=== PATIENT | male | born 1945 | race Caucasian/White ===

== ENCOUNTER 2017-08-07 18:59 | Inpatient (IN) | payer MEDICARE ==
[2017-08-07] MEDS ORDERED: NITROGLYCERIN SL TABS 0.4 MG TAB SUBLINGUAL STA (19:32)
[2017-08-07 19:34] LABS: Anisocytosis Slight; Basophils # (A) 0.1 k/uL (0-0.2); Basophils % (A) 1 %; CH 26.4; CHCM 30.4; Eosinophils # (A) 0.3 k/uL (0-0.7); Eosinophils % (A) 3 %; HCT 36.3 % (39.0-53.0); HGB 11.2 gm/dL (13.0-17.5); Hypochromasia Moderate; Luc % (Auto) 1; Lymphocytes # (A) 0.9 k/uL (1.0-4.8); Lymphocytes % (A) 9 %; MCHC 30.9 g/dL (31.0-37.0); MCV 87.1 fL (80.0-100.0); Mean Platelet Volume 8.4; Monocytes # (A) 0.7 k/uL (0-1.0); Monocytes % (A) 6 %; Neutrophils # (A) 8.2 k/uL (1.3-7.7); Neutrophils % (A) 80 %; RBC 4.16 m/uL (4.30-5.90); RDW 16.1 % (11.5-15.5); WBC 10.2 k/uL (3.8-10.6); WBC (Perox) 10.59
[2017-08-07 19:42] LABS: Anion Gap 10 mmol/L; Blood Urea Nitrogen 18 mg/dL (9-20); Carbon Dioxide 26 mmol/L (22-30); Chloride 105 mmol/L (98-107); Glucose 102 mg/dL (74-99); Potassium 4.5 mmol/L (3.5-5.1); Sodium 141 mmol/L (137-145)
[2017-08-07 19:43] LABS: ALT 70 U/L (21-72); AST 154 U/L (17-59); Alkaline Phosphatase 165 U/L (38-126); Calcium 9.3 mg/dL (8.4-10.2); Magnesium 1.4 mg/dL (1.6-2.3); Non-African American GFR(MDRD) >60 (>60 ml/min/1.73 sqM); Total Protein 7.6 g/dL (6.3-8.2)
[2017-08-07 19:53] LABS: Partial Thromboplastin Time 24.6 sec (22.0-30.0)
[2017-08-07 19:55] LABS: Prothrombin Time 10.6 sec (9.0-12.0)
--- NOTE | 2017-08-07 19:57 | XR ---
EXAMINATION TYPE: XR chest 2V DATE OF EXAM: 08/07/2017 COMPARISON: NONE HISTORY: Chest pain TECHNIQUE: Frontal and lateral views of the chest are obtained. FINDINGS: There is coarsening of interstitial pulmonary markings. There are sternal wires. There are chest leads. There is no gross heart failure. Heart size is normal. There is no pleural effusion. Th oracic aorta is atheromatous. Bones are osteopenic. IMPRESSION: Interstitial pulmonary fibrotic changes. No heart failure.
[2017-08-07 20:05] LABS: Creatine Kinase MB 0.9 ng/mL (0.0-2.4); Troponin I <0.012 ng/mL (0.000-0.034)
[2017-08-07] MEDS ORDERED: NALOXONE 0.4 MG/ML 1 ML VIAL IV PRN (20:47)
[2017-08-07] MEDS ORDERED: MORPHINE SULFATE 2 MG/ML SYRINGE IV PRN (20:47)
[2017-08-07] MEDS ORDERED: ONDANSETRON 4 MG/2 ML VIAL IVP PRN (20:47)
--- NOTE | 2017-08-07 20:50 | ED ---
Chest Pain HPI - General Chief Complaint: Chest Pain Stated Complaint: chest pain Time Seen by Provider: 08/07/17 19:32 Source: patient Mode of arrival: wheelchair Limitations: no limitations - Related Data Home Medications Medication Instructions Recorded Confirmed Allopurinol [Zyloprim] 300 mg PO DAILY 08/07/17 08/07/17 Apixaban [Eliquis] 5 mg PO BID 08/07/17 08/07/17 Atorvastatin [Lipitor] 20 mg PO HS 08/07/17 08/07/17 Diltiazem HCl [Diltiazem 24Hr ER] 120 mg PO DAILY 08/07/17 08/07/17 Finasteride [Proscar] 5 mg PO HS 08/07/17 08/07/17 Levothyroxine Sodium [Synthroid] 250 mcg PO DAILY 08/07/17 08/07/17 Magnesium Oxide [Mag-Ox] 400 mg PO BID 08/07/17 08/07/17 Naproxen Sodium [Aleve] 440 mg PO QAM 08/07/17 08/07/17 Omeprazole 20 mg PO DAILY 08/07/17 08/07/17 Pregabalin [Lyrica] 150 mg PO HS 08/07/17 08/07/17 Tamsulosin HCl [Flomax] 0.4 mg PO QAM 08/07/17 08/07/17 metFORMIN HCL 1,000 mg PO BID 08/07/17 08/07/17 Allergies Allergy/AdvReac Type Severity Reaction Status Date / Time cephalexin [From Keflex] Allergy Unknown Verified 08/07/17 20:24 clopidogrel [From Plavix] Allergy Unknown Verified 08/07/17 20:24 codeine Allergy Unknown Verified 08/07/17 20:24 Iodine and Iodide Containing Allergy Unknown Verified 08/07/17 20:24 Produc levofloxacin [From Levaquin] Allergy Unknown Verified 08/07/17 20:24 shellfish derived [Shellfish] Allergy Unknown Verified 08/07/17 20:24 solifenacin Allergy Unknown Verified 08/07/17 20:24 oxycodone AdvReac Hallucinati Verified 08/07/17 20:23 ons Review of Systems ROS Statement: Those systems with pertinent positive or pertinent negative responses have been documented in the HPI. ROS Other: All systems not noted in ROS Statement are negative. EKG Findings - EKG Comments: EKG Findings:: EKG showing normal sinus rhythm with a rate of 68. There is right bundle-branch block. No abnormal ST segment changes or T-wave inversions. QTC is 457. Other intervals are normal. No ectopy. Past Medical History Past Medical History: Atrial Fibrillation, Asthma, Coronary Artery Disease (CAD) , Diabetes Mellitus, Hypertension History of Any Multi-Drug Resistant Organisms: None Reported Past Surgical History: Coronary Bypass/CABG, Heart Catheterization With Stent, Hernia Repair, Orthopedic Surgery Past Psychological History: No Psychological Hx Reported Smoking Status: Former smoker Past Alcohol Use History: Occasional Past Drug Use History: None Reported General Exam Limitations: no limitations Course Vital Signs 08/07/17 08/07/17 08/07/17 19:02 19:39 20:34 Temperature 98.7 F Pulse Rate 71 68 66 Respiratory 20 18 16 Rate Blood Pressure 128/62 119/72 107/67 O2 Sat by Pulse 98 98 98 Oximetry Disposition Clinical Impression: Pancreatitis Disposition: ADMITTED IP TO THIS HOSP Condition: Stable
[2017-08-07 22:25] LABS: Glucose,Whole Blood 96 mg/dL (75-99)
[2017-08-07] MEDS: SODIUM CHLORIDE 0.9% 1,000 ML IV SCH (23:06)
[2017-08-08] MEDS ORDERED: HYDROmorphone 1 MG/ML 1 ML SYRINGE IM PRN (00:38)
[2017-08-08] MEDS: HYDROmorphone 1 MG/ML 1 ML SYRINGE IVP PRN ×2 (00:46→08:19)
[2017-08-08 01:32] LABS: Creatine Kinase 40 U/L (55-170)
[2017-08-08 01:44] LABS: Creatine Kinase MB 0.9 ng/mL (0.0-2.4); Troponin I <0.012 ng/mL (0.000-0.034)
[2017-08-08 02:49] LABS: Glucose,Whole Blood 100 mg/dL (75-99)
[2017-08-08] MEDS: SODIUM CHLORIDE 0.9% 1,000 ML IV SCH ×2 (06:14→12:05)
[2017-08-08 07:10] LABS: Glucose,Whole Blood 85 mg/dL (75-99)
[2017-08-08 07:53] LABS: Creatine Kinase 27 U/L (55-170)
[2017-08-08 08:05] LABS: Creatine Kinase MB 0.7 ng/mL (0.0-2.4); Troponin I <0.012 ng/mL (0.000-0.034)
[2017-08-08] MEDS ORDERED: Potassium Replacement Protocol 1 EACH MISC MISCELLANE PRN (11:05)
[2017-08-08] MEDS ORDERED: Magnesium Replacement Protocol 1 EACH MISC MISCELLANE PRN (11:05)
[2017-08-08] MEDS ORDERED: HYDROmorphone 0.5 MG/0.5 ML SYRINGE IVP PRN (11:06)
--- NOTE | 2017-08-08 11:13 | P.HPIM ---
History of Present Illness H&P Date: 08/08/17 Chief Complaint: Chest pain This is a 71-year-old gentleman with past medical history significant for coronary artery disease and underlying A. fib on anticoagulation who presented to the hospital with chest pain. Patient said that his symptoms started yesterday all of a sudden. He felt heaviness in his chest. He describe it as 8 out of 10 in severity. There was no radiation. There is no shortness of breath or dizziness. When questioned further to point to his pain patient was pointing more to the epigastric area. Patient said that the heaviness started from above the umbilicus all the way up to his mid chest. He was concerned and he had heart attacks in the past and decided to come to the emergency room for further evaluation. In the emergency room, 12-lead EKG showed no acute ischemic changes. Troponin were negative 2 sets. Patient was noted to have a significantly elevated lipase and was admitted to the hospital for further evaluation of acute pancreatitis. Patient said that he drinks alcohol only occasionally and denies binge drinking. He has never had problems with pancreatitis in the past. He believes that he never had a cholecystectomy in the past either. He said that his pain is a lot better now. He was remained nothing by mouth since last night. Review of Systems Review of system: 14 points review of systems were obtained and were negative except to what were mentioned in the HPI. Past Medical History Past Medical History: Atrial Fibrillation, Asthma, Coronary Artery Disease (CAD) , Diabetes Mellitus, Hypertension History of Any Multi-Drug Resistant Organisms: None Reported Past Surgical History: Coronary Bypass/CABG, Heart Catheterization With Stent, Hernia Repair, Orthopedic Surgery Past Anesthesia/Blood Transfusion Reactions: No Reported Reaction Date of Last Stent Placement:: 10/2015 Past Psychological History: No Psychological Hx Reported Smoking Status: Former smoker Past Alcohol Use History: Occasional Past Drug Use History: None Reported - Past Family History Father Family Medical History: Diabetes Mellitus Medications and Allergies Home Medications Medication Instructions Recorded Confirmed Type Allopurinol [Zyloprim] 300 mg PO DAILY 08/07/17 08/07/17 History Apixaban [Eliquis] 5 mg PO BID 08/07/17 08/07/17 History Atorvastatin [Lipitor] 20 mg PO HS 08/07/17 08/07/17 History Diltiazem HCl [Diltiazem 24Hr ER] 120 mg PO DAILY 08/07/17 08/07/17 History Finasteride [Proscar] 5 mg PO HS 08/07/17 08/07/17 History Levothyroxine Sodium [Synthroid] 250 mcg PO DAILY 08/07/17 08/07/17 History Magnesium Oxide [Mag-Ox] 400 mg PO BID 08/07/17 08/07/17 History Naproxen Sodium [Aleve] 440 mg PO QAM 08/07/17 08/07/17 History Omeprazole 20 mg PO DAILY 08/07/17 08/07/17 History Pregabalin [Lyrica] 150 mg PO HS 08/07/17 08/07/17 History Tamsulosin HCl [Flomax] 0.4 mg PO QAM 08/07/17 08/07/17 History metFORMIN HCL 1,000 mg PO BID 08/07/17 08/07/17 History Allergies Allergy/AdvReac Type Severity Reaction Status Date / Time cephalexin [From Keflex] Allergy Unknown Verified 08/07/17 20:24 clopidogrel [From Plavix] Allergy Unknown Verified 08/07/17 20:24 codeine Allergy Unknown Verified 08/07/17 20:24 Iodine and Iodide Containing Allergy Unknown Verified 08/07/17 20:24 Produc levofloxacin [From Levaquin] Allergy Unknown Verified 08/07/17 20:24 shellfish derived [Shellfish] Allergy Unknown Verified 08/07/17 20:24 solifenacin Allergy Unknown Verified 08/07/17 20:24 oxycodone AdvReac Hallucinati Verified 08/07/17 20:23 ons Physical Exam Vitals: Vital Signs Temp Pulse Pulse Resp BP BP Pulse Ox 08/08/17 07:48 16 08/08/17 07:47 98.6 F 70 16 140/74 96 08/08/17 02:47 128/71 08/08/17 00:58 97.0 F L 69 16 172/76 100 08/07/17 22:00 97.6 F 67 14 133/82 95 08/07/17 20:34 66 16 107/67 98 08/07/17 19:39 68 18 119/72 98 08/07/17 19:02 98.7 F 71 20 128/62 98 Intake and Output 08/07/17 08/08/17 08/08/17 22:59 06:59 14:59 Output Total 150 Balance -150 Output: Urine 150 Other: Voiding Method Urinal Weight 180.862 kg 180.862 kg 104.6 kg Patient Weight 08/09/17 06:59 Weight 104.6 kg General: The patient is awake and alert, in no distress, and does not appear acutely ill. Eye: extra-ocular movements are intact; there is normal conjunctiva bilaterally. . Neck: The neck is supple, there is no tenderness or JVD. Cardiovascular: Normal S1-S2, no S3-S4, no murmurs. Respiratory: Lungs clear to auscultation bilaterally with no wheezes rhonchi or rales. Gastrointestinal: Abdomen is soft, nontender, nondistended, with no organomegaly. . Musculoskeletal: Normal ROM, no tenderness, There is no pedal edema. Neurological: There are no obvious motor or sensory deficits. Speech is normal. Skin: Skin is warm and dry and no rashes or lesions are noted. Results CBC & Chem 7: 08/07/17 19:16 08/07/17 19:16 Labs: Abnormal Lab Results - Last 24 Hours (Table) 08/07/17 08/07/17 08/08/17 Range/Units 19:16 19:16 00:48 RBC 4.16 L (4.30-5.90) m/uL Hgb 11.2 L (13.0-17.5) gm/dL Hct 36.3 L (39.0-53.0) % MCHC 30.9 L (31.0-37.0) g/dL RDW 16.1 H (11.5-15.5) % Neutrophils # 8.2 H (1.3-7.7) k/uL Lymphocytes # 0.9 L (1.0-4.8) k/uL Glucose 102 H (74-99) mg/dL POC Glucose (mg/dL) (75-99) mg/dL Magnesium 1.4 L (1.6-2.3) mg/dL Total Bilirubin 2.0 H (0.2-1.3) mg/dL AST 154 H (17-59) U/L Alkaline Phosphatase 165 H (38-126) U/L Total Creatine Kinase 40 L (55-170) U/L Lipase 2479 H (23-300) U/L 08/08/17 08/08/17 Range/Units 02:44 06:49 RBC (4.30-5.90) m/uL Hgb (13.0-17.5) gm/dL Hct (39.0-53.0) % MCHC (31.0-37.0) g/dL RDW (11.5-15.5) % Neutrophils # (1.3-7.7) k/uL Lymphocytes # (1.0-4.8) k/uL Glucose (74-99) mg/dL POC Glucose (mg/dL) 100 H (75-99) mg/dL Magnesium (1.6-2.3) mg/dL Total Bilirubin (0.2-1.3) mg/dL AST (17-59) U/L Alkaline Phosphatase (38-126) U/L Total Creatine Kinase 27 L (55-170) U/L Lipase (23-300) U/L Thrombosis Risk Factor Assmnt - Choose All That Apply Other Risk Factors: No Assessment and Plan Plan: 1. Acute pancreatitis, exact etiology unclear. I would obtain abdominal ultrasound to rule out gallstones. Patient denies heavy alcohol use. I would check fasting lipid profile to evaluate triglyceride level. Continue nothing by mouth for now IV fluid hydration and pain control. May start the liquid later on today. 2. Paroxysmal atrial fibrillation on anticoagulation 3. History of coronary artery disease with prior stent placement 4. Essential hypertension: Blood pressure well-controlled Today, I reviewed his medication list lab work results. Continue current regimen. Repeat lab work in the morning. All patient questions answered to his satisfaction.
[2017-08-08] MEDS ORDERED: MAGNESIUM SULFATE-D5W PMX 1 GM in DEXTROSE/WATER 1 100ML.BAG IVPB ONE (11:30)
[2017-08-08 11:51] LABS: Glucose,Whole Blood 85 mg/dL (75-99)
[2017-08-08 12:18] LABS: Hemoglobin A1C 5.9 % (4.2-6.1)
--- NOTE | 2017-08-08 13:01 | US ---
EXAMINATION TYPE: US abdomen complete DATE OF EXAM: 08/08/2017 COMPARISON: NONE CLINICAL HISTORY: Pancreatitis rule out stone. EXAM MEASUREMENTS: Liver Length: 17.0 cm Gallbladder Wall: 0.6 cm CBD: 0.6 cm Spleen: 15.3 cm Right Kidney: 10.5 x 4.5 x 5.2 cm Left Kidney: 11.0 x 5.3 x 4.7 cm Large body habitus, overlying midline bowel gas. Pancreas: Obscured by bowel gas Liver: wnl Gallbladder: stones throughout, believed to be in neck area, edematous wall, stones in phrygian cap Evidence for sonographic Strickland's sign: no CBD: upper limits of normal in size Spleen: splenomegaly Right Kidney: No hydronephrosis or masses seen Left Kidney: No hydronephrosis or masses seen Upper IVC: wnl Abd Aorta: mostly obscured by overlying bowel gas, portions visualized wnl The liver is homogenous. The intrahepatic portion of the IVC and proximal abdominal aorta are within normal limits. Common bile duct is unremarkable. The visualized portions of the pancreas are homog enous. Kidneys are symmetric and free of hydronephrosis. No renal lesions are seen. IMPRESSION: 1. Correlate for acute cholecystitis. 2. Splenomegaly.
[2017-08-08] MEDS: MAGNESIUM SULFATE-D5W PMX 1 GM in DEXTROSE/WATER 1 100ML.BAG IVPB SCH ×2 (13:40→14:49)
[2017-08-08 16:46] LABS: Glucose,Whole Blood 95 mg/dL (75-99)
[2017-08-08] MEDS ORDERED: IBUPROFEN 600 MG TAB PO PRN (17:19)
[2017-08-08 20:20] LABS: Glucose,Whole Blood 88 mg/dL (75-99)
[2017-08-08] MEDS: ATORVASTATIN 20 MG TAB PO SCH (20:42)
[2017-08-08] MEDS: FINASTERIDE 5 MG TAB PO SCH (20:43)
[2017-08-08] MEDS: MAGNESIUM OXIDE 400 MG TAB PO SCH (20:43)
[2017-08-08] MEDS ORDERED: APIXABAN 5 MG TAB PO SCH (21:00)
[2017-08-08] MEDS ORDERED: HEPARIN SODIUM,PORCINE 5,000 UNIT/ML 1 ML VIAL SQ SCH (21:00)
[2017-08-08] MEDS: PREGABALIN 75 MG CAP PO SCH (21:10)
[2017-08-09] MEDS: SODIUM CHLORIDE 0.9% 1,000 ML IV SCH ×5 (01:40→23:29)
[2017-08-09 03:51] LABS: Glucose,Whole Blood 83 mg/dL (75-99)
[2017-08-09] MEDS: LEVOTHYROXINE 125 MCG TAB PO SCH (06:35)
[2017-08-09 07:38] LABS: Anisocytosis Slight; Basophils % (A) 1 %; CH 26.4; CHCM 30.1; Eosinophils # (A) 0.3 k/uL (0-0.7); Eosinophils % (A) 6 %; HCT 30.5 % (39.0-53.0); HDW 2.81; Hypochromasia Marked; Luc # (Auto) 0.08; Luc % (Auto) 2; Lymphocytes # (A) 0.6 k/uL (1.0-4.8); Lymphocytes % (A) 11 %; MCH 26.5 pg (25.0-35.0); MCHC 30.1 g/dL (31.0-37.0); MCV 88.1 fL (80.0-100.0); Mean Platelet Volume 8.2; Monocytes # (A) 0.4 k/uL (0-1.0); Monocytes % (A) 7 %; Neutrophils % (A) 74 %; RBC 3.46 m/uL (4.30-5.90); WBC 5.4 k/uL (3.8-10.6)
[2017-08-09 07:46] LABS: Glucose,Whole Blood 82 mg/dL (75-99)
[2017-08-09 07:51] LABS: HGB 9.2 gm/dL (13.0-17.5)
[2017-08-09 07:52] LABS: ALT 84 U/L (21-72); AST 69 U/L (17-59); Alkaline Phosphatase 167 U/L (38-126); Amylase 170 U/L (30-110); Anion Gap 10 mmol/L; Blood Urea Nitrogen 15 mg/dL (9-20); Calcium 8.6 mg/dL (8.4-10.2); Carbon Dioxide 20 mmol/L (22-30); Chloride 110 mmol/L (98-107); Cholesterol 93 mg/dL (<200); Glucose 73 mg/dL (74-99); HDL Cholesterol 42 mg/dL (40-60); Magnesium 1.9 mg/dL (1.6-2.3); Non-African American GFR(MDRD) >60 (>60 ml/min/1.73 sqM); Potassium 4.2 mmol/L (3.5-5.1); Sodium 140 mmol/L (137-145); Total Bilirubin 1.3 mg/dL (0.2-1.3); Total Protein 6.2 g/dL (6.3-8.2)
[2017-08-09] MEDS: MAGNESIUM OXIDE 400 MG TAB PO SCH ×2 (08:25→20:14)
[2017-08-09] MEDS: DILTIAZEM CD 120 MG CAP.ER.24H PO SCH (08:25)
[2017-08-09] MEDS: TAMSULOSIN 0.4 MG CAP.ER.24H PO SCH (08:25)
[2017-08-09] MEDS: PANTOPRAZOLE 40 MG/10 ML VIAL IVP SCH (08:26)
[2017-08-09] MEDS ORDERED: DEXTROSE 5%-0.9% NACL 1,000 ML IV SCH (12:00)
--- NOTE | 2017-08-09 12:04 | P.PN ---
Subjective Patient is comfortable today. Pain is well controlled. He remained nothing by mouth. Objective - Vital Signs Vital signs: Vital Signs Temp 97.9 F 08/09/17 07:24 Pulse 55 L 08/09/17 07:24 Resp 16 08/09/17 07:25 BP 139/66 08/09/17 07:24 Pulse Ox 95 08/09/17 07:24 Intake & Output 08/08/17 08/09/17 08/09/17 18:59 06:59 18:59 Output Total 450 Balance -450 Weight 104.6 kg Output: Urine 450 Other: Voiding Method Urinal Urinal # Voids 2 1 - Exam General: The patient is awake and alert, in no distress Eye: there is normal conjunctiva bilaterally. Neck: The neck is supple, there is no JVD. Cardiovascular: Normal S1-S2, no S3-S4, no murmurs. Respiratory: Lungs clear to auscultation bilaterally Gastrointestinal: Abdomen is soft, nontender Musculoskeletal: There is no pedal edema. Neurological:. Speech is normal. Skin: Skin is warm and dry - Labs CBC & Chem 7: 08/09/17 06:50 08/09/17 06:50 Labs: Abnormal Lab Results - Last 24 Hours (Table) 08/08/17 08/09/17 08/09/17 Range/Units 15:30 06:50 06:50 RBC 3.46 L (4.30-5.90) m/uL Hgb 9.2 L D (13.0-17.5) gm/dL Hct 30.5 L (39.0-53.0) % MCHC 30.1 L (31.0-37.0) g/dL RDW 16.0 H (11.5-15.5) % Plt Count 121 L (150-450) k/uL Lymphocytes # 0.6 L (1.0-4.8) k/uL Chloride 110 H (98-107) mmol/L Carbon Dioxide 20 L (22-30) mmol/L Glucose 73 L (74-99) mg/dL Magnesium 1.5 L (1.6-2.3) mg/dL AST 69 H (17-59) U/L ALT 84 H (21-72) U/L Alkaline Phosphatase 167 H (38-126) U/L Total Protein 6.2 L (6.3-8.2) g/dL Albumin 3.1 L (3.5-5.0) g/dL Amylase 170 H (30-110) U/L Lipase 428 H (23-300) U/L Assessment and Plan Plan: 1. Acute gallstone pancreatitis, currently nothing by mouth awaiting general surgery evaluation. IV fluid hydration and pain control. Evaluated by GI indication for ERCP at this time 2. Paroxysmal atrial fibrillation on anticoagulation, currently on hold 3. History of coronary artery disease with prior stent placement 4. Essential hypertension: Blood pressure well-controlled Today, I reviewed his medication list lab work results. Continue current regimen. Repeat lab work in the morning. All patient questions answered to his satisfaction.
--- NOTE | 2017-08-09 12:21 | P.CONS ---
History of Present Illness - Reason for Consult Consult date: 08/09/17 Pancreatitis Requesting physician: Kemar Ramirez - History of Present Illness 71-year-old male PMH CAD/CABG/Afib maintained on Eliquis, with no history of known liver disorders presents with acute abdominal pain midepigastric chest 2 days. Pancreatic liver enzymes elevated. Consultation requested for pancreatitis. No history of hepatitis or pancreatitis. No history of EtOH abuse. Denies fever chills weight loss. No changes in the color is urine or stool. White count 5.4-10.2. Hemoglobin 9.2-11.2. Platelet 121-206. INR 1.0. Total bilirubin 2.0. AST 154. ALT 70. A contrast is 165. Lipase 2479. Today; total bilirubin 1.3. AST 69. ALT 84. Alk phos is 167. Lipase 428. Amylase 170. Ultrasound, bile duct unremarkable. CBD 0.6 m. Gallbladder wall 0.6 cm. Stones throughout believed to be in the neck area. Edematous wall. He feels better abdominal pain is improved. Waiting surgical evaluation. Denies hematemesis hematochezia melena. Review of Systems Constitutional: Denies fever, chills, sweats, weight gain, or loss. HEENT: Negative for migraines, blurred vision or loss, earaches, drainage, tinnitus, oral mucosal lesions, dysphagia, or odynophagia. Cardiac: Atrial fibrillation. CAD. Negative for chest pain, arrhythmias, or palpitation. Respiratory: Negative for shortness of breath, hemoptysis, cough, or sputum production. Gastrointestinal: See HPI for pertinent findings. Genitourinary: Negative for hematuria, urgency, frequency, polyuria, dysuria, or penile discharge. Musculoskeletal: Negative for muscle aches, swelling, arthritis, and arthralgias. Neurologic: Negative for stroke or TIA. Endocrine: Diabetic. Negative for thyroid problems. Skin: Negative for rash or itching. Psychiatric: Negative history for depression and anxiety All systems: negative Past Medical History Past Medical History: Atrial Fibrillation, Asthma, Coronary Artery Disease (CAD) , Diabetes Mellitus, Hypertension History of Any Multi-Drug Resistant Organisms: None Reported Past Surgical History: Coronary Bypass/CABG, Heart Catheterization With Stent, Hernia Repair, Orthopedic Surgery Past Anesthesia/Blood Transfusion Reactions: No Reported Reaction Date of Last Stent Placement:: 10/2015 Past Psychological History: No Psychological Hx Reported Smoking Status: Former smoker Past Alcohol Use History: Occasional Past Drug Use History: None Reported - Past Family History Father Family Medical History: Diabetes Mellitus Medications and Allergies Home Medications Medication Instructions Recorded Confirmed Type Allopurinol [Zyloprim] 300 mg PO DAILY 08/07/17 08/07/17 History Apixaban [Eliquis] 5 mg PO BID 08/07/17 08/07/17 History Atorvastatin [Lipitor] 20 mg PO HS 08/07/17 08/07/17 History Diltiazem HCl [Diltiazem 24Hr ER] 120 mg PO DAILY 08/07/17 08/07/17 History Finasteride [Proscar] 5 mg PO HS 08/07/17 08/07/17 History Levothyroxine Sodium [Synthroid] 250 mcg PO DAILY 08/07/17 08/07/17 History Magnesium Oxide [Mag-Ox] 400 mg PO BID 08/07/17 08/07/17 History Naproxen Sodium [Aleve] 440 mg PO QAM 08/07/17 08/07/17 History Omeprazole 20 mg PO DAILY 08/07/17 08/07/17 History Pregabalin [Lyrica] 150 mg PO HS 08/07/17 08/07/17 History Tamsulosin HCl [Flomax] 0.4 mg PO QAM 08/07/17 08/07/17 History metFORMIN HCL 1,000 mg PO BID 08/07/17 08/07/17 History Allergies Allergy/AdvReac Type Severity Reaction Status Date / Time cephalexin [From Keflex] Allergy Unknown Verified 08/07/17 20:24 clopidogrel [From Plavix] Allergy Unknown Verified 08/07/17 20:24 codeine Allergy Unknown Verified 08/07/17 20:24 Iodine and Iodide Containing Allergy Unknown Verified 08/07/17 20:24 Produc levofloxacin [From Levaquin] Allergy Unknown Verified 08/07/17 20:24 shellfish derived [Shellfish] Allergy Unknown Verified 08/07/17 20:24 solifenacin Allergy Unknown Verified 08/07/17 20:24 oxycodone AdvReac Hallucinati Verified 08/07/17 20:23 ons Physical Exam Vitals: Vital Signs Temp Pulse Resp BP Pulse Ox 08/09/17 07:25 16 08/09/17 07:24 97.9 F 55 L 16 139/66 95 08/09/17 01:25 97.7 F 55 L 16 126/61 93 L 08/08/17 19:00 98.0 F 62 16 128/63 94 L 08/08/17 14:49 98.1 F 55 L 16 123/69 94 L Intake and Output 08/08/17 08/09/17 08/09/17 22:59 06:59 14:59 Output Total 125 325 Balance -125 -325 Output: Urine 125 325 Other: Voiding Method Urinal # Voids 1 Results CBC & Chem 7: 08/09/17 06:50 08/09/17 06:50 Labs: Abnormal Lab Results - Last 24 Hours (Table) 08/08/17 08/09/17 08/09/17 Range/Units 15:30 06:50 06:50 RBC 3.46 L (4.30-5.90) m/uL Hgb 9.2 L D (13.0-17.5) gm/dL Hct 30.5 L (39.0-53.0) % MCHC 30.1 L (31.0-37.0) g/dL RDW 16.0 H (11.5-15.5) % Plt Count 121 L (150-450) k/uL Lymphocytes # 0.6 L (1.0-4.8) k/uL Chloride 110 H (98-107) mmol/L Carbon Dioxide 20 L (22-30) mmol/L Glucose 73 L (74-99) mg/dL Magnesium 1.5 L (1.6-2.3) mg/dL AST 69 H (17-59) U/L ALT 84 H (21-72) U/L Alkaline Phosphatase 167 H (38-126) U/L Total Protein 6.2 L (6.3-8.2) g/dL Albumin 3.1 L (3.5-5.0) g/dL Amylase 170 H (30-110) U/L Lipase 428 H (23-300) U/L US - abdomen: report reviewed (Dr. Marie) Assessment and Plan (1) Gall stone pancreatitis Status: Acute (2) Atrial fibrillation Narrative/Plan: Anticoagulation on hold Status: Chronic Plan: 1. LFTs have improved normal bilirubin therefore ERCP not indicated. Pain is improved. Await surgical evaluation. Thank you for this kind referral and the opportunity to participate in the care of your patient. This consultation was discussed with Dr. Marie. The impression and plan of care have been directed as dictated.
[2017-08-09 12:30] LABS: Glucose,Whole Blood 70 mg/dL (75-99)
--- NOTE | 2017-08-09 14:04 | P.GSCN ---
History of Present Illness Consult date: 08/09/17 Reason for Consult: Gallstone pancreatitis History of present illness: Patient hospitalized with complaints of chest pain. This started 2 days ago. He has a history of A. fib, CABG, [place] and came to the ER for evaluation. He was found have elevated pancreatic and liver enzymes. He was admitted with gallstone pancreatitis. Ultrasound shows gallstones and a common bile duct measuring 6 mm. He is on eloquis for A. fib. His pain has since almost resolved. He is hungry. He has been seen by GI and there are no immediate plans for ERCP. No history of similar events in the past. Denies fevers or chills. Review of Systems The patient denies any acute changes in vision or hearing, no dysphagia or odynophagia, no shortness of breath, no dysuria or hematuria, no headache, no runny nose, no rectal bleeding or melena, no unexplained weight loss Past Medical History Past Medical History: Atrial Fibrillation, Asthma, Coronary Artery Disease (CAD) , Diabetes Mellitus, Hypertension History of Any Multi-Drug Resistant Organisms: None Reported Past Surgical History: Coronary Bypass/CABG, Heart Catheterization With Stent, Hernia Repair, Orthopedic Surgery Past Anesthesia/Blood Transfusion Reactions: No Reported Reaction Date of Last Stent Placement:: 10/2015 Past Psychological History: No Psychological Hx Reported Smoking Status: Former smoker Past Alcohol Use History: Occasional Past Drug Use History: None Reported - Past Family History Father Family Medical History: Diabetes Mellitus Medications and Allergies Home Medications Medication Instructions Recorded Confirmed Type Allopurinol [Zyloprim] 300 mg PO DAILY 08/07/17 08/07/17 History Apixaban [Eliquis] 5 mg PO BID 08/07/17 08/07/17 History Atorvastatin [Lipitor] 20 mg PO HS 08/07/17 08/07/17 History Diltiazem HCl [Diltiazem 24Hr ER] 120 mg PO DAILY 08/07/17 08/07/17 History Finasteride [Proscar] 5 mg PO HS 08/07/17 08/07/17 History Levothyroxine Sodium [Synthroid] 250 mcg PO DAILY 08/07/17 08/07/17 History Magnesium Oxide [Mag-Ox] 400 mg PO BID 08/07/17 08/07/17 History Naproxen Sodium [Aleve] 440 mg PO QAM 08/07/17 08/07/17 History Omeprazole 20 mg PO DAILY 08/07/17 08/07/17 History Pregabalin [Lyrica] 150 mg PO HS 08/07/17 08/07/17 History Tamsulosin HCl [Flomax] 0.4 mg PO QAM 08/07/17 08/07/17 History metFORMIN HCL 1,000 mg PO BID 08/07/17 08/07/17 History Allergies Allergy/AdvReac Type Severity Reaction Status Date / Time cephalexin [From Keflex] Allergy Unknown Verified 08/07/17 20:24 clopidogrel [From Plavix] Allergy Unknown Verified 08/07/17 20:24 codeine Allergy Unknown Verified 08/07/17 20:24 Iodine and Iodide Containing Allergy Unknown Verified 08/07/17 20:24 Produc levofloxacin [From Levaquin] Allergy Unknown Verified 08/07/17 20:24 shellfish derived [Shellfish] Allergy Unknown Verified 08/07/17 20:24 solifenacin Allergy Unknown Verified 08/07/17 20:24 oxycodone AdvReac Hallucinati Verified 08/07/17 20:23 ons Surgical - Exam Vital Signs Temp Pulse Resp BP Pulse Ox 98.7 F 71 20 128/62 98 08/07/17 19:02 08/07/17 19:02 08/07/17 19:02 08/07/17 19:02 08/07/17 19:02 Physical exam: General: Well-developed, well-nourished HEENT: Normocephalic, sclerae nonicteric Abdomen: Mild epigastric tenderness, nondistended Extremities: No edema Neuro: Alert and oriented Results - Labs 08/09/17 06:50 08/09/17 06:50 Abnormal Lab Results - Last 24 Hours (Table) 08/08/17 08/09/17 08/09/17 Range/Units 15:30 06:50 06:50 RBC 3.46 L (4.30-5.90) m/uL Hgb 9.2 L D (13.0-17.5) gm/dL Hct 30.5 L (39.0-53.0) % MCHC 30.1 L (31.0-37.0) g/dL RDW 16.0 H (11.5-15.5) % Plt Count 121 L (150-450) k/uL Lymphocytes # 0.6 L (1.0-4.8) k/uL Chloride 110 H (98-107) mmol/L Carbon Dioxide 20 L (22-30) mmol/L Glucose 73 L (74-99) mg/dL POC Glucose (mg/dL) (75-99) mg/dL Magnesium 1.5 L (1.6-2.3) mg/dL AST 69 H (17-59) U/L ALT 84 H (21-72) U/L Alkaline Phosphatase 167 H (38-126) U/L Total Protein 6.2 L (6.3-8.2) g/dL Albumin 3.1 L (3.5-5.0) g/dL Amylase 170 H (30-110) U/L Lipase 428 H (23-300) U/L 08/09/17 Range/Units 11:30 RBC (4.30-5.90) m/uL Hgb (13.0-17.5) gm/dL Hct (39.0-53.0) % MCHC (31.0-37.0) g/dL RDW (11.5-15.5) % Plt Count (150-450) k/uL Lymphocytes # (1.0-4.8) k/uL Chloride (98-107) mmol/L Carbon Dioxide (22-30) mmol/L Glucose (74-99) mg/dL POC Glucose (mg/dL) 70 L (75-99) mg/dL Magnesium (1.6-2.3) mg/dL AST (17-59) U/L ALT (21-72) U/L Alkaline Phosphatase (38-126) U/L Total Protein (6.3-8.2) g/dL Albumin (3.5-5.0) g/dL Amylase (30-110) U/L Lipase (23-300) U/L Diabetes panel 08/09/17 Range/Units 06:50 Sodium 140 (137-145) mmol/L Potassium 4.2 (3.5-5.1) mmol/L Chloride 110 H (98-107) mmol/L Carbon Dioxide 20 L (22-30) mmol/L BUN 15 (9-20) mg/dL Creatinine 0.84 (0.66-1.25) mg/dL Glucose 73 L (74-99) mg/dL Calcium 8.6 (8.4-10.2) mg/dL AST 69 H (17-59) U/L ALT 84 H (21-72) U/L Alkaline Phosphatase 167 H (38-126) U/L Total Protein 6.2 L (6.3-8.2) g/dL Albumin 3.1 L (3.5-5.0) g/dL Triglycerides 106 (<150) mg/dL HDL Cholesterol 42 (40-60) mg/dL Calcium panel 08/09/17 Range/Units 06:50 Calcium 8.6 (8.4-10.2) mg/dL Albumin 3.1 L (3.5-5.0) g/dL Pituitary panel 08/09/17 Range/Units 06:50 Sodium 140 (137-145) mmol/L Potassium 4.2 (3.5-5.1) mmol/L Chloride 110 H (98-107) mmol/L Carbon Dioxide 20 L (22-30) mmol/L BUN 15 (9-20) mg/dL Creatinine 0.84 (0.66-1.25) mg/dL Glucose 73 L (74-99) mg/dL Calcium 8.6 (8.4-10.2) mg/dL Adrenal panel 08/09/17 Range/Units 06:50 Sodium 140 (137-145) mmol/L Potassium 4.2 (3.5-5.1) mmol/L Chloride 110 H (98-107) mmol/L Carbon Dioxide 20 L (22-30) mmol/L BUN 15 (9-20) mg/dL Creatinine 0.84 (0.66-1.25) mg/dL Glucose 73 L (74-99) mg/dL Calcium 8.6 (8.4-10.2) mg/dL Total Bilirubin 1.3 (0.2-1.3) mg/dL AST 69 H (17-59) U/L ALT 84 H (21-72) U/L Alkaline Phosphatase 167 H (38-126) U/L Total Protein 6.2 L (6.3-8.2) g/dL Albumin 3.1 L (3.5-5.0) g/dL Assessment and Plan (1) Gall stone pancreatitis Narrative/Plan: Start liquid diet. Recheck labs tomorrow. Empiric antibiotics. Tentatively plan cholecystectomy prior to discharge. Status: Acute
[2017-08-09 17:12] LABS: Glucose,Whole Blood 89 mg/dL (75-99)
[2017-08-09] MEDS: INSULIN LISPRO (humaLOG) 300 UNIT/3 ML VIAL SQ SCH ×2 (18:13→20:08)
[2017-08-09 20:09] LABS: Glucose,Whole Blood 117 mg/dL (75-99)
[2017-08-09] MEDS: ATORVASTATIN 20 MG TAB PO SCH (20:14)
[2017-08-09] MEDS: FINASTERIDE 5 MG TAB PO SCH (20:14)
[2017-08-09] MEDS: PREGABALIN 75 MG CAP PO SCH (20:14)
[2017-08-09 23:17] LABS: Hemoglobin A1C 5.9 % (4.2-6.1)
[2017-08-10] MEDS: SODIUM CHLORIDE 0.9% 1,000 ML IV SCH ×2 (05:18→09:05)
[2017-08-10] MEDS: LEVOTHYROXINE 125 MCG TAB PO SCH (05:52)
[2017-08-10 07:13] LABS: Glucose,Whole Blood 94 mg/dL (75-99)
[2017-08-10 07:49] LABS: Anisocytosis Slight; Basophils % (A) 1 %; CH 26.5; CHCM 30.6; Eosinophils # (A) 0.3 k/uL (0-0.7); Eosinophils % (A) 6 %; HCT 30.2 % (39.0-53.0); HDW 2.84; HGB 9.1 gm/dL (13.0-17.5); Hypochromasia Moderate; Luc # (Auto) 0.05; Luc % (Auto) 1; Lymphocytes # (A) 0.5 k/uL (1.0-4.8); Lymphocytes % (A) 12 %; MCH 26.3 pg (25.0-35.0); MCHC 30.2 g/dL (31.0-37.0); MCV 87.1 fL (80.0-100.0); Mean Platelet Volume 8.2; Monocytes # (A) 0.5 k/uL (0-1.0); Monocytes % (A) 11 %; Neutrophils # (A) 3.3 k/uL (1.3-7.7); Neutrophils % (A) 70 %; RBC 3.46 m/uL (4.30-5.90); RDW 16.4 % (11.5-15.5); WBC 4.7 k/uL (3.8-10.6); WBC (Perox) 5.12
[2017-08-10 08:27] LABS: Anion Gap 11 mmol/L; Blood Urea Nitrogen 12 mg/dL (9-20); Calcium 8.8 mg/dL (8.4-10.2); Carbon Dioxide 22 mmol/L (22-30); Chloride 109 mmol/L (98-107); Glucose 85 mg/dL (74-99); Magnesium 1.6 mg/dL (1.6-2.3); Non-African American GFR(MDRD) >60 (>60 ml/min/1.73 sqM); Potassium 4.1 mmol/L (3.5-5.1); Sodium 142 mmol/L (137-145); Total Protein 6.2 g/dL (6.3-8.2)
[2017-08-10 08:33] LABS: Total Bilirubin 0.9 mg/dL (0.2-1.3)
[2017-08-10 08:34] LABS: ALT 62 U/L (21-72); AST 36 U/L (17-59); Alkaline Phosphatase 148 U/L (38-126)
[2017-08-10] MEDS: TAMSULOSIN 0.4 MG CAP.ER.24H PO SCH (08:57)
[2017-08-10] MEDS: DILTIAZEM CD 120 MG CAP.ER.24H PO SCH (08:57)
[2017-08-10] MEDS: PANTOPRAZOLE 40 MG/10 ML VIAL IVP SCH (08:57)
[2017-08-10] MEDS: MAGNESIUM OXIDE 400 MG TAB PO SCH ×2 (08:57→20:33)
[2017-08-10] MEDS: INSULIN LISPRO (humaLOG) 300 UNIT/3 ML VIAL SQ SCH ×4 (09:04→20:34)
--- NOTE | 2017-08-10 11:11 | P.PN ---
Progress Note - Text Progress Note Date: 08/10/17 The patient resting comfortably in his bed. He states he has a pain of 3 out of 10. He denies any nausea or vomiting. On exam is lesser stable. His abdomen soft. Gallstone. Jluis. The patient is improving. He'll undergo laparoscopically stenting on Saturday with Dr. Hernandez.
[2017-08-10 12:14] LABS: Glucose,Whole Blood 96 mg/dL (75-99)
--- NOTE | 2017-08-10 12:24 | P.PN ---
Subjective Patient is comfortable today. Pain is well controlled. Objective - Vital Signs Vital signs: Vital Signs Temp 96.7 F L 08/10/17 07:00 Pulse 68 08/10/17 07:00 Resp 15 08/10/17 07:00 BP 138/69 08/10/17 07:00 Pulse Ox 97 08/10/17 07:00 Intake & Output 08/09/17 08/10/17 08/10/17 18:59 06:59 18:59 Intake Total 1400 Output Total 400 200 Balance 1000 -200 Intake: Intake, IV Titration 1400 Amount Sodium Chloride 0.9% 1, 1000 000 ml @ 125 mls/hr IV . Q8H [facility] Rx#:[id number] Sodium Chloride 0.9% 1, 400 000 ml @ 50 mls/hr IV . Q20H [facility] Rx#:[id number] Output: Urine 400 200 Other: Voiding Method Urinal Toilet # Voids 1 3 # Bowel Movements 2 - Exam General: The patient is awake and alert, in no distress Eye: there is normal conjunctiva bilaterally. Neck: The neck is supple, there is no JVD. Cardiovascular: Normal S1-S2, no S3-S4, no murmurs. Respiratory: Lungs clear to auscultation bilaterally Gastrointestinal: Abdomen is soft, nontender Musculoskeletal: There is no pedal edema. Neurological:. Speech is normal. Skin: Skin is warm and dry - Labs CBC & Chem 7: 08/10/17 06:25 08/10/17 06:25 Labs: Abnormal Lab Results - Last 24 Hours (Table) 08/09/17 08/09/17 08/10/17 Range/Units 11:30 20:06 06:25 RBC 3.46 L (4.30-5.90) m/uL Hgb 9.1 L (13.0-17.5) gm/dL Hct 30.2 L (39.0-53.0) % MCHC 30.2 L (31.0-37.0) g/dL RDW 16.4 H (11.5-15.5) % Plt Count 117 L (150-450) k/uL Lymphocytes # 0.5 L (1.0-4.8) k/uL Chloride (98-107) mmol/L POC Glucose (mg/dL) 70 L 117 H (75-99) mg/dL Alkaline Phosphatase (38-126) U/L Total Protein (6.3-8.2) g/dL Albumin (3.5-5.0) g/dL 08/10/17 Range/Units 06:25 RBC (4.30-5.90) m/uL Hgb (13.0-17.5) gm/dL Hct (39.0-53.0) % MCHC (31.0-37.0) g/dL RDW (11.5-15.5) % Plt Count (150-450) k/uL Lymphocytes # (1.0-4.8) k/uL Chloride 109 H (98-107) mmol/L POC Glucose (mg/dL) (75-99) mg/dL Alkaline Phosphatase 148 H (38-126) U/L Total Protein 6.2 L (6.3-8.2) g/dL Albumin 3.1 L (3.5-5.0) g/dL Assessment and Plan Plan: 1. Acute gallstone pancreatitis, advance diet as directed by general surgery. Plan for cholecystectomy on Saturday. Evaluated by GI indication for ERCP at this time 2. Paroxysmal atrial fibrillation on anticoagulation, currently on hold 3. History of coronary artery disease with prior stent placement 4. Essential hypertension: Blood pressure well-controlled Today, I reviewed his medication list lab work results. Continue current regimen. Repeat lab work in the morning.
[2017-08-10] MEDS: MAGNESIUM SULFATE-D5W PMX 1 GM in DEXTROSE/WATER 1 100ML.BAG IVPB SCH ×2 (14:19→16:50)
[2017-08-10 16:53] LABS: Glucose,Whole Blood 107 mg/dL (75-99)
[2017-08-10 20:18] LABS: Glucose,Whole Blood 143 mg/dL (75-99)
[2017-08-10] MEDS: PREGABALIN 75 MG CAP PO SCH (20:33)
[2017-08-10] MEDS: ATORVASTATIN 20 MG TAB PO SCH (20:34)
[2017-08-10] MEDS: FINASTERIDE 5 MG TAB PO SCH (20:34)
[2017-08-11] MEDS: LEVOTHYROXINE 125 MCG TAB PO SCH (05:54)
[2017-08-11] MEDS: SODIUM CHLORIDE 0.9% 1,000 ML IV SCH (06:00)
[2017-08-11 07:04] LABS: Glucose,Whole Blood 91 mg/dL (75-99)
[2017-08-11 07:35] LABS: Basophils % (A) 1 %; CH 25.6; CHCM 29.5; Eosinophils # (A) 0.3 k/uL (0-0.7); Eosinophils % (A) 7 %; HCT 31.7 % (39.0-53.0); HDW 2.83; HGB 9.5 gm/dL (13.0-17.5); Hypochromasia Marked; Luc # (Auto) 0.14; Luc % (Auto) 3; Lymphocytes # (A) 0.8 k/uL (1.0-4.8); Lymphocytes % (A) 19 %; MCHC 29.9 g/dL (31.0-37.0); MCV 87.1 fL (80.0-100.0); Monocytes # (A) 0.5 k/uL (0-1.0); Monocytes % (A) 11 %; Neutrophils # (A) 2.6 k/uL (1.3-7.7); Neutrophils % (A) 59 %; RBC 3.64 m/uL (4.30-5.90); RDW 15.4 % (11.5-15.5); WBC 4.4 k/uL (3.8-10.6); WBC (Perox) 4.49
[2017-08-11 07:46] LABS: ALT 49 U/L (21-72); AST 23 U/L (17-59); Alkaline Phosphatase 136 U/L (38-126); Anion Gap 10 mmol/L; Blood Urea Nitrogen 10 mg/dL (9-20); Calcium 8.9 mg/dL (8.4-10.2); Carbon Dioxide 23 mmol/L (22-30); Chloride 109 mmol/L (98-107); Glucose 91 mg/dL (74-99); Magnesium 1.7 mg/dL (1.6-2.3); Non-African American GFR(MDRD) >60 (>60 ml/min/1.73 sqM); Sodium 142 mmol/L (137-145); Total Bilirubin 0.7 mg/dL (0.2-1.3); Total Protein 6.5 g/dL (6.3-8.2)
[2017-08-11] MEDS: MAGNESIUM OXIDE 400 MG TAB PO SCH ×2 (07:48→21:27)
[2017-08-11] MEDS: PANTOPRAZOLE 40 MG/10 ML VIAL IVP SCH (07:48)
[2017-08-11] MEDS: DILTIAZEM CD 120 MG CAP.ER.24H PO SCH (07:49)
[2017-08-11] MEDS: TAMSULOSIN 0.4 MG CAP.ER.24H PO SCH (07:49)
[2017-08-11] MEDS: INSULIN LISPRO (humaLOG) 300 UNIT/3 ML VIAL SQ SCH ×4 (07:58→21:27)
--- NOTE | 2017-08-11 11:06 | P.PN ---
Progress Note - Text Progress Note Date: 08/11/17 The patient feels well. He denies any abdominal pain. He is tolerating a diet and having bowel movements. On exam his vital signs are stable. His abdomen is soft. Gallstone pancreas has resolved. Patient will undergo laparoscopic cholecystectomy Dr. Roberson tomorrow.
[2017-08-11 12:01] LABS: Glucose,Whole Blood 114 mg/dL (75-99)
--- NOTE | 2017-08-11 12:01 | P.PN ---
Subjective Patient is comfortable today. Pain is well controlled. Objective - Vital Signs Vital signs: Vital Signs Temp 98.8 F 08/11/17 02:31 Pulse 58 L 08/11/17 02:31 Resp 16 08/11/17 02:31 BP 121/69 08/11/17 02:31 Pulse Ox 93 L 08/11/17 02:31 Intake & Output 08/10/17 08/11/17 08/11/17 18:59 06:59 18:59 Intake Total 1480 2000 Output Total 440 600 Balance 1040 1400 Intake: Intake, IV Titration 1000 2000 Amount Sodium Chloride 0.9% 1, 1000 2000 000 ml @ 125 mls/hr IV . Q8H [facility] Rx#:[id number] Oral 480 Output: Urine 440 600 Other: Voiding Method Toilet Toilet # Voids 2 3 - Exam General: The patient is awake and alert, in no distress Eye: there is normal conjunctiva bilaterally. Neck: The neck is supple, there is no JVD. Cardiovascular: Normal S1-S2, no S3-S4, no murmurs. Respiratory: Lungs clear to auscultation bilaterally Gastrointestinal: Abdomen is soft, nontender Musculoskeletal: There is no pedal edema. Neurological:. Speech is normal. Skin: Skin is warm and dry - Labs CBC & Chem 7: 08/11/17 06:38 08/11/17 06:38 Labs: Abnormal Lab Results - Last 24 Hours (Table) 08/10/17 08/10/17 08/11/17 Range/Units 16:50 20:13 06:38 RBC 3.64 L (4.30-5.90) m/uL Hgb 9.5 L (13.0-17.5) gm/dL Hct 31.7 L (39.0-53.0) % MCHC 29.9 L (31.0-37.0) g/dL Plt Count 119 L (150-450) k/uL Lymphocytes # 0.8 L (1.0-4.8) k/uL Chloride (98-107) mmol/L POC Glucose (mg/dL) 107 H 143 H (75-99) mg/dL Alkaline Phosphatase (38-126) U/L Albumin (3.5-5.0) g/dL 08/11/17 Range/Units 06:38 RBC (4.30-5.90) m/uL Hgb (13.0-17.5) gm/dL Hct (39.0-53.0) % MCHC (31.0-37.0) g/dL Plt Count (150-450) k/uL Lymphocytes # (1.0-4.8) k/uL Chloride 109 H (98-107) mmol/L POC Glucose (mg/dL) (75-99) mg/dL Alkaline Phosphatase 136 H (38-126) U/L Albumin 3.2 L (3.5-5.0) g/dL Assessment and Plan Plan: 1. Acute gallstone pancreatitis, advance diet as directed by general surgery. Plan for cholecystectomy on Saturday. Evaluated by GI and no indication for ERCP at this time 2. Paroxysmal atrial fibrillation on anticoagulation, currently on hold for anticipated surgery 3. History of coronary artery disease with prior stent placement 4. Essential hypertension: Blood pressure well-controlled Today, I reviewed his medication list lab work results. Continue current regimen. Repeat lab work in the morning.
[2017-08-11 20:49] LABS: Glucose,Whole Blood 122 mg/dL (75-99)
[2017-08-11] MEDS: ATORVASTATIN 20 MG TAB PO SCH (21:24)
[2017-08-11] MEDS: FINASTERIDE 5 MG TAB PO SCH (21:27)
[2017-08-11] MEDS: PREGABALIN 75 MG CAP PO SCH (21:33)
[2017-08-12] MEDS: LEVOTHYROXINE 125 MCG TAB PO SCH (05:44)
[2017-08-12] MEDS: SODIUM CHLORIDE 0.9% 1,000 ML IV SCH ×2 (06:22→16:59)
[2017-08-12 06:40] LABS: Glucose,Whole Blood 92 mg/dL (75-99)
[2017-08-12] MEDS: INSULIN LISPRO (humaLOG) 300 UNIT/3 ML VIAL SQ SCH ×4 (07:13→22:16)
[2017-08-12] MEDS: TAMSULOSIN 0.4 MG CAP.ER.24H PO SCH (07:20)
[2017-08-12] MEDS: MAGNESIUM OXIDE 400 MG TAB PO SCH ×2 (07:20→22:26)
[2017-08-12] MEDS: PANTOPRAZOLE 40 MG/10 ML VIAL IVP SCH (07:21)
[2017-08-12] MEDS: DILTIAZEM CD 120 MG CAP.ER.24H PO SCH (07:21)
[2017-08-12 07:52] LABS: ALT 44 U/L (21-72); AST 19 U/L (17-59); Alkaline Phosphatase 123 U/L (38-126); Anion Gap 9 mmol/L; Blood Urea Nitrogen 12 mg/dL (9-20); Calcium 8.9 mg/dL (8.4-10.2); Carbon Dioxide 24 mmol/L (22-30); Chloride 109 mmol/L (98-107); Glucose 90 mg/dL (74-99); Magnesium 1.6 mg/dL (1.6-2.3); Non-African American GFR(MDRD) >60 (>60 ml/min/1.73 sqM); Potassium 4.3 mmol/L (3.5-5.1); Sodium 142 mmol/L (137-145); Total Bilirubin 0.8 mg/dL (0.2-1.3); Total Protein 6.5 g/dL (6.3-8.2)
[2017-08-12 08:06] LABS: Basophils % (A) 1 %; CH 25.6; CHCM 29.8; Eosinophils # (A) 0.3 k/uL (0-0.7); Eosinophils % (A) 7 %; HCT 32.4 % (39.0-53.0); HDW 2.84; HGB 9.6 gm/dL (13.0-17.5); Hypochromasia Marked; Luc # (Auto) 0.17; Luc % (Auto) 4; Lymphocytes # (A) 0.9 k/uL (1.0-4.8); Lymphocytes % (A) 19 %; MCH 25.6 pg (25.0-35.0); MCHC 29.7 g/dL (31.0-37.0); MCV 86.2 fL (80.0-100.0); Monocytes # (A) 0.4 k/uL (0-1.0); Monocytes % (A) 9 %; Neutrophils # (A) 2.9 k/uL (1.3-7.7); Neutrophils % (A) 61 %; RBC 3.76 m/uL (4.30-5.90); RDW 15.4 % (11.5-15.5); WBC 4.7 k/uL (3.8-10.6); WBC (Perox) 4.83
[2017-08-12 11:40] LABS: Glucose,Whole Blood 85 mg/dL (75-99)
--- NOTE | 2017-08-12 11:51 | P.PN ---
Subjective Patient is scheduled for cholecystectomy this afternoon. Objective - Vital Signs Vital signs: Vital Signs Temp 97.7 F 08/12/17 07:17 Pulse 53 L 08/12/17 07:23 Resp 17 08/12/17 07:17 BP 143/76 08/12/17 07:23 Pulse Ox 94 L 08/12/17 07:17 Intake & Output 08/11/17 08/12/17 08/12/17 18:59 06:59 18:59 Intake Total 150 Balance 150 Intake: Intake, IV Titration 150 Amount Sodium Chloride 0.9% 1, 150 000 ml @ 50 mls/hr IV . Q20H [facility] Rx#:[id number] Other: Voiding Method Toilet Urinal Urinal # Voids 3 3 1 - Exam General: The patient is awake and alert, in no distress Eye: there is normal conjunctiva bilaterally. Neck: The neck is supple, there is no JVD. Cardiovascular: Normal S1-S2, no S3-S4, no murmurs. Respiratory: Lungs clear to auscultation bilaterally Gastrointestinal: Abdomen is soft, nontender Musculoskeletal: There is no pedal edema. Neurological:. Speech is normal. Skin: Skin is warm and dry - Labs CBC & Chem 7: 08/12/17 07:08 08/12/17 07:08 Labs: Abnormal Lab Results - Last 24 Hours (Table) 08/11/17 08/11/17 08/12/17 Range/Units 11:37 20:30 07:08 RBC 3.76 L (4.30-5.90) m/uL Hgb 9.6 L (13.0-17.5) gm/dL Hct 32.4 L (39.0-53.0) % MCHC 29.7 L (31.0-37.0) g/dL Plt Count 133 L (150-450) k/uL Lymphocytes # 0.9 L (1.0-4.8) k/uL Chloride (98-107) mmol/L POC Glucose (mg/dL) 114 H 122 H (75-99) mg/dL Albumin (3.5-5.0) g/dL 08/12/17 Range/Units 07:08 RBC (4.30-5.90) m/uL Hgb (13.0-17.5) gm/dL Hct (39.0-53.0) % MCHC (31.0-37.0) g/dL Plt Count (150-450) k/uL Lymphocytes # (1.0-4.8) k/uL Chloride 109 H (98-107) mmol/L POC Glucose (mg/dL) (75-99) mg/dL Albumin 3.3 L (3.5-5.0) g/dL Assessment and Plan Plan: 1. Acute gallstone pancreatitis, advance diet as directed by general surgery. Plan for cholecystectomy today. Evaluated by GI and no indication for ERCP at this time 2. Paroxysmal atrial fibrillation on anticoagulation, currently on hold for anticipated surgery 3. History of coronary artery disease with prior stent placement 4. Essential hypertension: Blood pressure well-controlled Today, I reviewed his medication list lab work results. Continue current regimen. Repeat lab work in the morning.
[2017-08-12 16:48] LABS: Glucose,Whole Blood 90 mg/dL (75-99)
--- NOTE | 2017-08-12 17:51 | P.PN ---
Progress Note - Text Progress Note Date: 08/12/17 Patient doing well today. Denies pain. Labs have normalized. We'll proceed with laparoscopic cholecystectomy today. Risks of bleeding, infection, bile leak, bile duct injury, retained common bile duct stone, recurrent pancreatitis , conversion to an open procedure, diarrhea, and anesthesia complications were discussed. He understands and wishes to proceed.
[2017-08-12] MEDS: SODIUM CHLORIDE 0.9% 1,000 ML IV ONE ×3 (18:10→22:15)
[2017-08-12] MEDS ORDERED: MIDAZOLAM 2 MG/2 ML VIAL ONE (19:14)
[2017-08-12] MEDS ORDERED: fentaNYL (PF) 50 MCG/ML 2 ML AMP ONE (19:14)
[2017-08-12] MEDS ORDERED: ROCURONIUM BROMIDE 10 MG/ML 10 ML VIAL IV ONE (19:14)
[2017-08-12] MEDS ORDERED: LIDOCAINE 1% INJ 10MG/ML (20 ML MDV) ONE (19:14)
[2017-08-12] MEDS ORDERED: PROPOFOL 10 MG/ML 20 ML VIAL IV ONE (19:14)
[2017-08-12] MEDS ORDERED: SODIUM CHLORIDE 0.9% 1,000 ML IV ONE (19:14)
[2017-08-12] MEDS ORDERED: SODIUM CHLORIDE 0.9% 50 ML with CLINDAMYCIN 600 MG IV ONE ×2 (19:20)
[2017-08-12] MEDS ORDERED: BUPIVACAINE (PF) 0.25% 30 ML VIAL SQ ONE ×2 (19:30)
[2017-08-12] MEDS ORDERED: LACTATED RINGERS 1,000 ML IV ONE (20:41)
[2017-08-12] MEDS ORDERED: traMADol 50 MG TAB PO PRN (20:42)
--- NOTE | 2017-08-12 20:45 | P.OP ---
Date of Procedure: 08/12/17 Procedure(s) Performed: PREOPERATIVE DIAGNOSIS: Gallstone pancreatitis POSTOPERATIVE DIAGNOSIS: Same PROCEDURE: Laparoscopic cholecystectomy SURGEON: Karol EBL: Minimal see anesthesia record ANESTHESIA: Gen. COMPLICATIONS: None OPERATIVE PROCEDURE: The patient was brought and placed on the operating room table in the supine position. The patient was placed under general anesthesia at that time. The abdomen was prepped and draped in the usual sterile fashion. A small vertical infraumbilical incision was made. The fascia was grasped with the Alec forceps. The fascia was retracted anteriorly. The Veress needle was advanced into the peritoneal cavity. The saline drop test was normal. Insufflation took place up to 15 mmHg. A 5 mm optical trocar was advanced and the peritoneal cavity. 2 additional 5 mm trochars were placed in the right upper quadrant under direct visualization. A 10 mm trocar was advanced into the epigastric incision site. This was later switched to a 12 mm trocar. The gallbladder was acutely inflamed with a thickened wall. The gallbladder was retracted superiorly and laterally. The peritoneum overlying the infundibulum was bluntly dissected. The patient's cystic duct was visualized. The cystic duct was prominent in size as anticipated with the recent passage of a stone. The junction with the common bile duct was seen. I chose to use a 2-0 Ethibond stitch and this was tied down on the cystic duct using a tie knot device. An additional 12 mm clip was then placed on the patient's side as well. Shortly after we started removing the gallbladder from the liver bed I noticed a small amount of bile near our cystic duct. As I looked closer I noticed that there was a opening in the cystic duct just proximal to our suture. It appeared that the stitch itself and the friability of the duct had created a small opening. I was able to grab the cystic duct and place a 12 mm clipped just proximal to this defect with no residual bilious drainage noted throughout the remainder of the surgery. The adjacent cystic artery was identified and clipped as well. A small vessel was seen along the gallbladder fossa and clipped as well. The gallbladder was then removed from the liver bed using electrocautery. The gallbladder was then removed from the epigastric trocar site with an Endo Catch bag. The gallbladder fossa was irrigated with saline. There was no evidence of any bleeding or biliary drainage seen. I chose to place a drain in the gallbladder fossa exiting through our more lateral 5 mm right upper quadrant trocar site. This was later sutured to the skin using a 3-0 silk stitch. The trochars were then removed. The fascia at the 12 millimeter site was closed using a [id number] 0 Vicryl stitch. The skin at all 3 sites was closed using a 4-0 Monocryl stitch. At the end of this procedure the sponge and needle counts were correct. DISPOSITION: Stable to the recovery room
[2017-08-12 21:02] LABS: Glucose,Whole Blood 99 mg/dL (75-99)
[2017-08-12] MEDS: HYDROmorphone 1 MG/ML 1 ML SYRINGE IVP ONE ×2 (21:03→21:15)
[2017-08-12] MEDS ORDERED: METOCLOPRAMIDE 5 MG/ML 2 ML VIAL IVP ONE (21:07)
[2017-08-12] MEDS: ATORVASTATIN 20 MG TAB PO SCH (22:26)
[2017-08-12] MEDS: PREGABALIN 75 MG CAP PO SCH (22:26)
[2017-08-12] MEDS: FINASTERIDE 5 MG TAB PO SCH (22:29)
[2017-08-13] MEDS ORDERED: ENALAPRILAT 1.25 MG/ML 1 ML VIAL IVP PRN (00:58)
[2017-08-13] MEDS: LEVOTHYROXINE 125 MCG TAB PO SCH (06:00)
[2017-08-13 07:10] LABS: Glucose,Whole Blood 80 mg/dL (75-99)
[2017-08-13] MEDS: INSULIN LISPRO (humaLOG) 300 UNIT/3 ML VIAL SQ SCH ×4 (07:49→22:10)
[2017-08-13] MEDS: DILTIAZEM CD 120 MG CAP.ER.24H PO SCH (07:50)
[2017-08-13] MEDS: TAMSULOSIN 0.4 MG CAP.ER.24H PO SCH (07:50)
[2017-08-13] MEDS: MAGNESIUM OXIDE 400 MG TAB PO SCH ×2 (07:50→22:10)
[2017-08-13] MEDS: PANTOPRAZOLE 40 MG TABLET PO SCH (07:51)
[2017-08-13 07:59] LABS: Basophils % (A) 1 %; CH 25.9; CHCM 29.6; Eosinophils # (A) 0.3 k/uL (0-0.7); Eosinophils % (A) 5 %; HCT 32.5 % (39.0-53.0); HDW 2.85; HGB 9.4 gm/dL (13.0-17.5); Hypochromasia Marked; Luc # (Auto) 0.14; Luc % (Auto) 2; Lymphocytes # (A) 0.9 k/uL (1.0-4.8); Lymphocytes % (A) 14 %; MCH 25.3 pg (25.0-35.0); MCHC 28.9 g/dL (31.0-37.0); MCV 87.7 fL (80.0-100.0); Mean Platelet Volume 7.4; Monocytes # (A) 0.5 k/uL (0-1.0); Monocytes % (A) 8 %; Neutrophils # (A) 4.2 k/uL (1.3-7.7); Neutrophils % (A) 70 %; RBC 3.71 m/uL (4.30-5.90); RDW 15.6 % (11.5-15.5); WBC (Perox) 6.25
[2017-08-13 08:07] LABS: ALT 40 U/L (21-72); AST 24 U/L (17-59); Alkaline Phosphatase 115 U/L (38-126); Anion Gap 10 mmol/L; Blood Urea Nitrogen 11 mg/dL (9-20); Calcium 8.7 mg/dL (8.4-10.2); Carbon Dioxide 24 mmol/L (22-30); Chloride 108 mmol/L (98-107); Glucose 76 mg/dL (74-99); Magnesium 1.4 mg/dL (1.6-2.3); Non-African American GFR(MDRD) >60 (>60 ml/min/1.73 sqM); Potassium 4.3 mmol/L (3.5-5.1); Sodium 142 mmol/L (137-145); Total Bilirubin 0.8 mg/dL (0.2-1.3); Total Protein 6.5 g/dL (6.3-8.2)
[2017-08-13] MEDS: MAGNESIUM SULFATE-D5W PMX 1 GM in DEXTROSE/WATER 1 100ML.BAG IVPB SCH ×4 (08:56→12:02)
--- NOTE | 2017-08-13 09:45 | P.PN ---
<Belen Bautistanesha Maravilla - Last Filed: 08/13/17 09:38> Subjective Progress Note Date: 08/13/17 71-year-old seen and examined at bedside patient is status post laparoscopic cholecystectomy for gallstone pancreatitis done on August 12 states pain medication effective for pain control. Patient states he's been up ambulating in the room passing gas no bowel movement this morning tolerating diet no reports of nausea vomiting KIMBERLEE drain in place with 50 mL documented for the last 8 hours labs reviewed magnesium 1.4 and which replacement has been ordered denies any dizziness lightheadedness chest pain or shortness of breath Objective - Vital Signs Vital signs: Vital Signs Temp 97.3 F L 08/13/17 07:41 Pulse 57 L 08/13/17 07:41 Resp 17 08/13/17 07:48 BP 149/78 08/13/17 07:41 Pulse Ox 98 08/13/17 07:41 Intake & Output 08/12/17 08/13/17 08/13/17 18:59 06:59 18:59 Intake Total 2104 Output Total 855 20 Balance 1249 -20 Intake: IV 1604 Intake, IV Titration 500 Amount Sodium Chloride 0.9% 50 500 ml As IV .STK-MED ONE with Clindamycin 600 mg Rx#:[id number] Output: Drainage 90 20 Abdomen 90 20 Urine 750 Estimated Blood Loss 15 Other: Voiding Method Urinal Urinal # Voids 1 1 - Exam Physical exam 71-year-old male sitting up in bed taking a diet reports no nausea vomiting pleasant cooperative Lungs essentially clear with adequate air movement no cough noted Heart S1-S2 audible regular denying chest pain Abdomen surgical dressing site dry KIMBERLEE drain in place 50 mL documented for 8 hours serous sanguinous drainage few hypoactive bowel tones states passing gas rectally no reports of nausea vomiting tolerating diet surgical tenderness appropriate not distended - Labs CBC & Chem 7: 08/13/17 06:59 08/13/17 06:59 Labs: Abnormal Lab Results - Last 24 Hours (Table) 08/13/17 08/13/17 Range/Units 06:59 06:59 RBC 3.71 L (4.30-5.90) m/uL Hgb 9.4 L (13.0-17.5) gm/dL Hct 32.5 L (39.0-53.0) % MCHC 28.9 L (31.0-37.0) g/dL RDW 15.6 H (11.5-15.5) % Plt Count 139 L (150-450) k/uL Lymphocytes # 0.9 L (1.0-4.8) k/uL Chloride 108 H (98-107) mmol/L Magnesium 1.4 L (1.6-2.3) mg/dL Albumin 3.2 L (3.5-5.0) g/dL Assessment and Plan Plan: Impression Laparoscopic cholecystectomy for gallstone pancreatitis done on August 12 Postop hypo-magnesium Hypertension essential Known coronary artery disease with prior coronary stent Paroxysmal atrial fibrillation on anticoagulation currently on hold Plan Continue postop surgical care Magnesium to be replaced Pain control Will need to restart calculus 5 mg twice a day when appropriate DVT and GI prophylaxis The above impression and plan of care have been discussed and directed by signing physician. Alfreda Bautista nurse practitioner acting as scribe for signing physician. <Huey Roberson - Last Filed: 08/13/17 12:11> Objective - Vital Signs Vital signs: Vital Signs Temp 97.3 F L 08/13/17 07:41 Pulse 57 L 08/13/17 07:41 Resp 17 08/13/17 07:48 BP 149/78 08/13/17 07:41 Pulse Ox 98 08/13/17 07:41 Intake & Output 08/12/17 08/13/17 08/13/17 18:59 06:59 18:59 Intake Total 2104 Output Total 855 20 Balance 1249 -20 Weight 104.6 kg Intake: IV 1604 Intake, IV Titration 500 Amount Sodium Chloride 0.9% 50 500 ml As IV .STK-MED ONE with Clindamycin 600 mg Rx#:[id number] Output: Drainage 90 20 Abdomen 90 20 Urine 750 Estimated Blood Loss 15 Other: Voiding Method Urinal Urinal # Voids 1 1 1 - Labs CBC & Chem 7: 08/13/17 06:59 08/13/17 06:59 Labs: Abnormal Lab Results - Last 24 Hours (Table) 08/13/17 08/13/17 08/13/17 Range/Units 06:59 06:59 11:38 RBC 3.71 L (4.30-5.90) m/uL Hgb 9.4 L (13.0-17.5) gm/dL Hct 32.5 L (39.0-53.0) % MCHC 28.9 L (31.0-37.0) g/dL RDW 15.6 H (11.5-15.5) % Plt Count 139 L (150-450) k/uL Lymphocytes # 0.9 L (1.0-4.8) k/uL Chloride 108 H (98-107) mmol/L POC Glucose (mg/dL) 158 H (75-99) mg/dL Magnesium 1.4 L (1.6-2.3) mg/dL Albumin 3.2 L (3.5-5.0) g/dL Assessment and Plan (1) Gall stone pancreatitis Status: Acute Plan: As above. Patient doing well at this time. KIMBERLEE drain remains serosanguineous. Labs were reviewed. May be discharged with plans for outpatient follow-up later this week.
[2017-08-13 11:15] VITALS: BMI 30.4
[2017-08-13 11:40] LABS: Glucose,Whole Blood 158 mg/dL (75-99)
[2017-08-13] MEDS ORDERED: ACETAMINOPHEN TAB 325 MG TAB PO PRN (11:40)
--- NOTE | 2017-08-13 11:42 | P.PN ---
Subjective Patient is doing well today. He tolerated breakfast with no difficulty this morning. Objective - Vital Signs Vital signs: Vital Signs Temp 97.3 F L 08/13/17 07:41 Pulse 57 L 08/13/17 07:41 Resp 17 08/13/17 07:48 BP 149/78 08/13/17 07:41 Pulse Ox 98 08/13/17 07:41 Intake & Output 08/12/17 08/13/17 08/13/17 18:59 06:59 18:59 Intake Total 2104 Output Total 855 20 Balance 1249 -20 Weight 104.6 kg Intake: IV 1604 Intake, IV Titration 500 Amount Sodium Chloride 0.9% 50 500 ml As IV .STK-MED ONE with Clindamycin 600 mg Rx#:[id number] Output: Drainage 90 20 Abdomen 90 20 Urine 750 Estimated Blood Loss 15 Other: Voiding Method Urinal Urinal # Voids 1 1 1 - Exam General: The patient is awake and alert, in no distress Eye: there is normal conjunctiva bilaterally. Neck: The neck is supple, there is no JVD. Cardiovascular: Normal S1-S2, no S3-S4, no murmurs. Respiratory: Lungs clear to auscultation bilaterally Gastrointestinal: Abdomen is soft, nontender. drain in place Musculoskeletal: There is no pedal edema. Neurological:. Speech is normal. Skin: Skin is warm and dry - Labs CBC & Chem 7: 08/13/17 06:59 08/13/17 06:59 Labs: Abnormal Lab Results - Last 24 Hours (Table) 08/13/17 08/13/17 08/13/17 Range/Units 06:59 06:59 11:38 RBC 3.71 L (4.30-5.90) m/uL Hgb 9.4 L (13.0-17.5) gm/dL Hct 32.5 L (39.0-53.0) % MCHC 28.9 L (31.0-37.0) g/dL RDW 15.6 H (11.5-15.5) % Plt Count 139 L (150-450) k/uL Lymphocytes # 0.9 L (1.0-4.8) k/uL Chloride 108 H (98-107) mmol/L POC Glucose (mg/dL) 158 H (75-99) mg/dL Magnesium 1.4 L (1.6-2.3) mg/dL Albumin 3.2 L (3.5-5.0) g/dL Assessment and Plan Plan: 1. Acute gallstone pancreatitis, advance diet as directed by general surgery. Postoperative day #1 status post cholecystectomy. Continue postoperative care 2. Paroxysmal atrial fibrillation on anticoagulation, would resume tonight 3. History of coronary artery disease with prior stent placement 4. Essential hypertension: Blood pressure well-controlled Today, I reviewed his medication list lab work results. Continue current regimen. Repeat lab work in the morning. and anticipate discharge home tomorrow if cleared by surgery
--- NOTE | 2017-08-13 14:50 | XR ---
EXAMINATION TYPE: XR knee 4V LT DATE OF EXAM: 08/13/2017 CLINICAL HISTORY: Left knee pain and swelling TECHNIQUE: Three views of the left knee are obtained. COMPARISON: None. FINDINGS: Left knee arthroplasty maintains anatomic alignment without periprosthetic loosening or chavez rdware fracture. Mild atherosclerosis is seen of the popliteal artery and its branches. Heterotopic o ssification is appreciated of the distal femur and tibial plateaus. Small suprapatellar joint effusio n is noted. There is no acute fracture/dislocation evident in left knee. The overlying soft tissue ap pears unremarkable. IMPRESSION: No evidence of hardware fracture, malalignment or periprosthetic lucency to suggest loosening. Three- phase bone scan could be performed if there is concern for periprosthetic infection.
[2017-08-13 16:19] VITALS: RESP 16
[2017-08-13 17:28] LABS: Glucose,Whole Blood 137 mg/dL (75-99)
[2017-08-13 19:53] LABS: Glucose,Whole Blood 170 mg/dL (75-99)
[2017-08-13] MEDS: APIXABAN 5 MG TAB PO SCH (22:09)
[2017-08-13] MEDS: ATORVASTATIN 20 MG TAB PO SCH (22:09)
[2017-08-13] MEDS: PREGABALIN 75 MG CAP PO SCH (22:10)
[2017-08-13] MEDS: FINASTERIDE 5 MG TAB PO SCH (22:10)
[2017-08-14 07:04] LABS: Glucose,Whole Blood 82 mg/dL (75-99)
[2017-08-14] MEDS: LEVOTHYROXINE 125 MCG TAB PO SCH (07:31)
[2017-08-14] MEDS: INSULIN LISPRO (humaLOG) 300 UNIT/3 ML VIAL SQ SCH ×2 (07:42→12:51)
[2017-08-14] MEDS: APIXABAN 5 MG TAB PO SCH (09:01)
[2017-08-14] MEDS: DILTIAZEM CD 120 MG CAP.ER.24H PO SCH (09:01)
[2017-08-14] MEDS: TAMSULOSIN 0.4 MG CAP.ER.24H PO SCH (09:01)
[2017-08-14] MEDS: PANTOPRAZOLE 40 MG TABLET PO SCH (09:01)
[2017-08-14] MEDS: MAGNESIUM OXIDE 400 MG TAB PO SCH (09:01)
--- NOTE | 2017-08-14 11:32 | P.DS ---
Providers Date of admission: 08/07/17 20:48 Expected date of discharge: 08/14/17 Attending physician: Karoline Mg Consults: 08/08/17 15:48 Consult Physician Routine Consulting Provider: Huey Roberson Consult Reason/Comments: Acute cholecystitis? Do you want consulting provider notified?: Yes Primary care physician: Teresa [facility] Course: 1. Acute gallstone pancreatitis, status post cholecystectomy. Seen in place. Follow-up with surgery in the office as directed 2. Paroxysmal atrial fibrillation on anticoagulation, resumed 3. History of coronary artery disease with prior stent placement 4. Essential hypertension: Blood pressure well-controlled Patient will be discharged home in a stable condition. Patient Condition at Discharge: Stable Plan - Discharge Summary New Discharge Prescriptions: New traMADol HCL [Ultram] 50 mg PO Q6HR PRN #20 tab PRN Reason: Pain Continue Pregabalin [Lyrica] 150 mg PO HS Naproxen Sodium [Aleve] 440 mg PO QAM Finasteride [Proscar] 5 mg PO HS Tamsulosin HCl [Flomax] 0.4 mg PO QAM Atorvastatin [Lipitor] 20 mg PO HS Magnesium Oxide [Mag-Ox] 400 mg PO BID Apixaban [Eliquis] 5 mg PO BID metFORMIN HCL 1,000 mg PO BID Omeprazole 20 mg PO DAILY Allopurinol [Zyloprim] 300 mg PO DAILY Levothyroxine Sodium [Synthroid] 250 mcg PO DAILY Diltiazem HCl [Diltiazem 24Hr ER] 120 mg PO DAILY Discharge Medication List Allopurinol [Zyloprim] 300 mg PO DAILY 08/07/17 [History] Apixaban [Eliquis] 5 mg PO BID 08/07/17 [History] Atorvastatin [Lipitor] 20 mg PO HS 08/07/17 [History] Diltiazem HCl [Diltiazem 24Hr ER] 120 mg PO DAILY 08/07/17 [History] Finasteride [Proscar] 5 mg PO HS 08/07/17 [History] Levothyroxine Sodium [Synthroid] 250 mcg PO DAILY 08/07/17 [History] Magnesium Oxide [Mag-Ox] 400 mg PO BID 08/07/17 [History] Naproxen Sodium [Aleve] 440 mg PO QAM 08/07/17 [History] Omeprazole 20 mg PO DAILY 08/07/17 [History] Pregabalin [Lyrica] 150 mg PO HS 08/07/17 [History] Tamsulosin HCl [Flomax] 0.4 mg PO QAM 08/07/17 [History] metFORMIN HCL 1,000 mg PO BID 08/07/17 [History] traMADol HCL [Ultram] 50 mg PO Q6HR PRN #20 tab 08/14/17 [Rx] Follow up Appointment(s)/Referral(s): Huey Roberson MD [Medical Doctor] - 08/15/17 (Please set appointment up with Dr. Roberson on upon discharge to have drain pulled) Teresa Walter MD [Primary Care Provider] - 1 Week Patient Instructions/Handouts: Pancreatitis (GEN) Discharge Disposition: HOME SELF-CARE
--- NOTE | 2017-08-14 12:11 | P.PN ---
Subjective Progress Note Date: 08/14/17 Principal diagnosis: Gallstone pancreatitis Patient feels well today. Mild right upper quadrant discomfort. KIMBERLEE drain serosanguineous. He is afebrile. He is hoping to go home today. Objective - Vital Signs Vital signs: Vital Signs Temp 98.1 F 08/14/17 08:57 Pulse 71 08/14/17 07:37 Resp 16 08/14/17 08:00 BP 159/74 08/14/17 07:37 Pulse Ox 97 08/14/17 07:37 Intake & Output 08/13/17 08/14/17 08/14/17 18:59 06:59 18:59 Intake Total 1000 Output Total 90 1135 300 Balance -90 -135 -300 Weight 104.6 kg Intake: Intake, IV Titration 400 Amount Sodium Chloride 0.9% 1, 400 000 ml @ 50 mls/hr IV . Q20H MARIVEL Rx#:[id number] Oral 600 Output: Drainage 90 60 Abdomen 90 60 Urine 1075 300 Other: Voiding Method Urinal Urinal Urinal # Voids 1 - Exam Abdomen: Soft, nondistended, mild right upper quadrant tenderness, incisions clean and dry - Labs CBC & Chem 7: 08/13/17 06:59 08/13/17 06:59 Labs: Abnormal Lab Results - Last 24 Hours (Table) 08/13/17 08/13/17 Range/Units 17:05 19:48 POC Glucose (mg/dL) 137 H 170 H (75-99) mg/dL Assessment and Plan (1) Gall stone pancreatitis Narrative/Plan: Stable for discharge. Patient will follow up with me in the office tomorrow for drain removal. Current Visit: Yes Status: Acute Code(s): K85.10 - BILIARY ACUTE PANCREATITIS WITHOUT NECROSIS OR INFECTION SNOMED Code(s): 02407923
[2017-08-14 14:46] VITALS: BP 123/75; PULSE 73; TEMP 98.2
== END 2017-08-14 15:17 | disposition home or self-care (01) | DRG 419 ==
LOC: EC 18:59 → 3SUR 20:48
PROVIDERS: ADMIT Internal Medicine; ATTEND Internal Medicine
PROC: 0FT44ZZ Resection of Gallbladder, Percutaneous Endoscopic Approach (ICD-10-PCS; principal; 2017-08-12 08:45)
DX: K85.10 Biliary acute pancreatitis without necrosis or infection (principal); I48.0 Paroxysmal atrial fibrillation; E83.42 Hypomagnesemia; E11.9 Type 2 diabetes mellitus without complications; I25.10 Atherosclerotic heart disease of native coronary artery without angina pectoris; I10 Essential (primary) hypertension; K80.20 Calculus of gallbladder without cholecystitis without obstruction; J45.909 Unspecified asthma, uncomplicated; Z79.01 Long term (current) use of anticoagulants; Z79.84 Long term (current) use of oral hypoglycemic drugs; Z79.1 Long term (current) use of non-steroidal anti-inflammatories (NSAID); Z79.899 Other long term (current) drug therapy; Z95.5 Presence of coronary angioplasty implant and graft; Z87.891 Personal history of nicotine dependence; Z95.1 Presence of aortocoronary bypass graft; Z88.8 Allergy status to other drugs, medicaments and biological substances; Z88.1 Allergy status to other antibiotic agents; Z91.041 Radiographic dye allergy status; Z88.5 Allergy status to narcotic agent; Z91.013 Allergy to seafood
CPT/HCPCS: 36415; 71020; 76700; 80053; 80061; 82150; 82550; 82553; 83036; 83690; 83735; 84484; 85025; 85610; 85730; 88304; 93005; 99285

== ENCOUNTER 2017-10-21 13:04 | Emergency (ER) | payer MEDICARE ==
[2017-10-21 13:13] VITALS: RESP 18
[2017-10-21] MEDS ORDERED: HYDROmorphone 1 MG/ML 1 ML SYRINGE IVP STA (13:37)
--- NOTE | 2017-10-21 13:43 | ED ---
General Adult HPI - General Chief complaint: Back Pain/Injury Stated complaint: BACK PAIN Time Seen by Provider: 10/21/17 13:21 Source: patient, EMS, RN notes reviewed Mode of arrival: EMS Limitations: no limitations - History of Present Illness Initial comments: 72-year-old male presents to the emergency department with a chief complaint of flareup of his chronic back pain. Has no low back and wraps around to the groin. He states only taking get him moving it does get better but he states today he woke up and he just could not even move due to the pain. He states it is not from his from [place] he is just visiting his daughter for the holiday. He states that he just cannot get up and move around. He's been told that he has arthritis and he needs to have surgery in the past. This time they' re concerned due to the continued pain and discomforts without that they should be seen. Patient denies any recent fever, chills, shortness of breath, chest pain, abdominal pain, nausea vomiting, numbness or tingling, dysuria or hematuria, constipation or diarrhea, headaches or visual changes, or any other current symptoms. - Related Data Home Medications Medication Instructions Recorded Confirmed Allopurinol [Zyloprim] 300 mg PO DAILY 08/07/17 10/21/17 Apixaban [Eliquis] 5 mg PO BID 08/07/17 10/21/17 Atorvastatin [Lipitor] 20 mg PO HS 08/07/17 10/21/17 Diltiazem HCl [Diltiazem 24Hr ER] 120 mg PO DAILY 08/07/17 10/21/17 Finasteride [Proscar] 5 mg PO HS 08/07/17 10/21/17 Levothyroxine Sodium [Synthroid] 250 mcg PO DAILY 08/07/17 10/21/17 Magnesium Oxide [Mag-Ox] 400 mg PO BID 08/07/17 10/21/17 Omeprazole 20 mg PO DAILY 08/07/17 10/21/17 Tamsulosin HCl [Flomax] 0.4 mg PO DAILY 08/07/17 10/21/17 metFORMIN HCL 1,000 mg PO BID 08/07/17 10/21/17 Albuterol Sulfate [Proventil Hfa] 1 - 2 puff INHALATION RT-QID PRN 10/15/17 Gabapentin [Neurontin] 800 - 1,200 mg PO TID PRN 10/15/17 10/21/17 Glimepiride [Amaryl] 2 mg PO DAILY 10/21/17 10/21/17 methylPREDNISolone Dose Pack See Taper PO DIRECTED 10/21/17 10/21/17 [Medrol Dose Pack] Previous Rx's Medication Instructions Recorded Cyclobenzaprine [Flexeril] 5 mg PO TID #15 tablet 10/21/17 Hydrocodone/Acetaminophen [[place] 1 each PO Q6HR PRN #20 tab 10/21/17 5-325] Allergies Allergy/AdvReac Type Severity Reaction Status Date / Time cephalexin [From Keflex] Allergy Unknown Verified 10/21/17 13:53 clopidogrel [From Plavix] Allergy Unknown Verified 10/21/17 13:53 Iodine and Iodide Containing Allergy Unknown Verified 10/21/17 13:53 Produc levofloxacin [From Levaquin] Allergy Unknown Verified 10/21/17 13:53 shellfish derived [Shellfish] Allergy Unknown Verified 10/21/17 13:53 solifenacin Allergy Unknown Verified 10/21/17 13:53 codeine AdvReac Nausea & Verified 10/21/17 13:53 Vomiting oxycodone AdvReac Hallucinati Verified 10/21/17 13:53 ons Review of Systems ROS Statement: Those systems with pertinent positive or pertinent negative responses have been documented in the HPI. ROS Other: All systems not noted in ROS Statement are negative. Past Medical History Past Medical History: Atrial Fibrillation, Asthma, Coronary Artery Disease (CAD) , Diabetes Mellitus, Hypertension History of Any Multi-Drug Resistant Organisms: None Reported Past Surgical History: Cholecystectomy, Coronary Bypass/CABG, Heart Catheterization With Stent, Hernia Repair, Orthopedic Surgery Past Anesthesia/Blood Transfusion Reactions: No Reported Reaction Date of Last Stent Placement:: 10/2015 Past Psychological History: No Psychological Hx Reported Smoking Status: Former smoker Past Alcohol Use History: Occasional Past Drug Use History: None Reported - Past Family History Father Family Medical History: Diabetes Mellitus General Exam - General Exam Comments Initial Comments: General: The patient is awake and alert, in no distress, and does not appear acutely ill. Eye: Pupils are equal, round and reactive to light, extra-ocular movements are intact; there is normal conjunctiva bilaterally. No signs of icterus. Ears, nose, mouth and throat: There are moist mucous membranes and no oral lesions. Neck: The neck is supple, there is no tenderness. Cardiovascular: There is a regular rate and rhythm. No murmur, rub or gallop is appreciated. Respiratory: Lungs are clear to auscultation, respirations are non-labored, breath sounds are equal. No wheezes, stridor, rales, or rhonchi. Gastrointestinal: Soft, non-distended, non-tender abdomen without masses or organomegaly noted. There is no rebound or guarding present. No CVA tenderness. Bowel sounds are unremarkable. Back: There is no tenderness to palpation in the midline. There is no obvious deformity. No rashes noted. Musculoskeletal: Normal ROM, no tenderness, There is no pedal edema. There is no calf tenderness or swelling. Sensation intact. Pulses equal bilaterally 2+. Neurological: CN II-XII intact, There are no obvious motor or sensory deficits. Coordination appears grossly intact. Speech is normal. Skin: Skin is warm and dry and no rashes or lesions are noted. Psychiatric: Cooperative, appropriate mood & affect, normal judgment. Limitations: no limitations Course Vital Signs 10/21/17 10/21/17 13:08 14:01 Temperature 98.0 F Pulse Rate 70 77 Respiratory 18 18 Rate Blood Pressure 133/79 137/84 O2 Sat by Pulse 96 98 Oximetry Medical Decision Making - Medical Decision Making 72-year-old male presents for presents for flareup of his chronic back pain. This and laboratory is reviewed. There is a small bump in white blood cell count however is been on steroids. This and we will write him pain medication and muscle relaxers for home. We discussed follow-up with his DrFco return to the medication. We did discuss all the patient's questions and return parameters. He stated that he understood and he is agreement. All questions have been answered. He will be discharged. - Lab Data Result diagrams: 10/21/17 13:52 10/21/17 13:52 Lab Results 10/21/17 10/21/17 Range/Units 13:52 13:52 WBC 13.2 H (3.8-10.6) k/uL RBC 4.72 (4.30-5.90) m/uL Hgb 12.1 L (13.0-17.5) gm/dL Hct 39.6 (39.0-53.0) % MCV 84.0 (80.0-100.0) fL MCH 25.7 (25.0-35.0) pg MCHC 30.6 L (31.0-37.0) g/dL RDW 15.5 (11.5-15.5) % Plt Count 292 (150-450) k/uL Neutrophils % 68 % Lymphocytes % 16 % Monocytes % 11 % Eosinophils % 3 % Basophils % 0 % Neutrophils # 9.0 H (1.3-7.7) k/uL Lymphocytes # 2.1 (1.0-4.8) k/uL Monocytes # 1.5 H (0-1.0) k/uL Eosinophils # 0.4 (0-0.7) k/uL Basophils # 0.0 (0-0.2) k/uL Hypochromasia Moderate Sodium 137 (137-145) mmol/L Potassium 5.9 H (3.5-5.1) mmol/L Chloride 100 (98-107) mmol/L Carbon Dioxide 30 (22-30) mmol/L Anion Gap 7 mmol/L BUN 22 H (9-20) mg/dL Creatinine 0.98 (0.66-1.25) mg/dL Est GFR (MDRD) Af Amer >60 (>60 ml/min/1.73 sqM) Est GFR (MDRD) Non-Af >60 (>60 ml/min/1.73 sqM) Glucose 118 H (74-99) mg/dL Calcium 9.3 (8.4-10.2) mg/dL Total Bilirubin 0.7 (0.2-1.3) mg/dL AST 21 (17-59) U/L ALT 23 (21-72) U/L Alkaline Phosphatase 62 (38-126) U/L Total Protein 6.9 (6.3-8.2) g/dL Albumin 3.4 L (3.5-5.0) g/dL - Radiology Data Radiology results: report reviewed, image reviewed Disposition Clinical Impression: Lumbar radiculopathy Disposition: HOME SELF-CARE Condition: Stable Instructions: Chronic Back Pain (ED) Additional Instructions: Please use medication as discussed. Please follow up with family doctor if symptoms have not improved over the next two days. Please return to the emergency room if your symptoms increase or worsen or for any other concerns. Prescriptions: Cyclobenzaprine [Flexeril] 5 mg PO TID #15 tablet Hydrocodone/Acetaminophen [[place] 5-325] 1 each PO Q6HR PRN #20 tab PRN Reason: Pain Referrals: Teresa Walter MD [Primary Care Provider] - 1-2 days Time of Disposition: 14:42
[2017-10-21 14:12] LABS: Basophils % (A) 0 %; CHCM 31.1; Eosinophils # (A) 0.4 k/uL (0-0.7); Eosinophils % (A) 3 %; HCT 39.6 % (39.0-53.0); HDW 3.21; HGB 12.1 gm/dL (13.0-17.5); Hypochromasia Moderate; Luc # (Auto) 0.28; Luc % (Auto) 2; Lymphocytes # (A) 2.1 k/uL (1.0-4.8); Lymphocytes % (A) 16 %; MCH 25.7 pg (25.0-35.0); MCHC 30.6 g/dL (31.0-37.0); Monocytes # (A) 1.5 k/uL (0-1.0); Monocytes % (A) 11 %; Neutrophils % (A) 68 %; RBC 4.72 m/uL (4.30-5.90); RDW 15.5 % (11.5-15.5); WBC 13.2 k/uL (3.8-10.6); WBC (Perox) 12.72
[2017-10-21 14:20] LABS: Anion Gap 7 mmol/L; Calcium 9.3 mg/dL (8.4-10.2); Carbon Dioxide 30 mmol/L (22-30); Chloride 100 mmol/L (98-107); Glucose 118 mg/dL (74-99); Non-African American GFR(MDRD) >60 (>60 ml/min/1.73 sqM); Sodium 137 mmol/L (137-145); Total Bilirubin 0.7 mg/dL (0.2-1.3); Total Protein 6.9 g/dL (6.3-8.2)
[2017-10-21 14:21] LABS: ALT 23 U/L (21-72); AST 21 U/L (17-59); Alkaline Phosphatase 62 U/L (38-126); Blood Urea Nitrogen 22 mg/dL (9-20); Potassium 5.9 mmol/L (3.5-5.1)
--- NOTE | 2017-10-21 14:34 | XR ---
EXAMINATION TYPE: XR chest 2V DATE OF EXAM: 10/21/2017 COMPARISON: Prior chest x-ray August 07, 2017 HISTORY: Cough and back pain. TECHNIQUE: Frontal and lateral views of the chest are obtained. FINDINGS: Overlying sternal wires are redemonstrated, superior which are broken similar to prior . Me diastinal clips are again seen on lateral view. Diminished inspiration on current study is seen. Ther e is chronic parenchymal change without suspicious new focal air space opacity, pleural effusion, or pneumothorax seen. The cardiac silhouette size is mildly enlarged with atherosclerotic and ectatic t horacic aorta. The osseous structures are demineralized. Cholecystectomy clips are noted on lateral view. IMPRESSION: Chronic parenchymal changes without suspicious acute pulmonary process.
[2017-10-21 14:58] VITALS: BP 141/69; PULSE 63; TEMP 98.2
[2017-10-21] MEDS ORDERED: HYDROmorphone 1 MG/ML 1 ML SYRINGE IM STA (15:14)
== END 2017-10-21 14:58 | disposition home or self-care (01) ==
LOC: EC 13:04
DX: M54.16 Radiculopathy, lumbar region (principal); I48.91 Unspecified atrial fibrillation; I10 Essential (primary) hypertension; I25.10 Atherosclerotic heart disease of native coronary artery without angina pectoris; E11.9 Type 2 diabetes mellitus without complications; Z87.891 Personal history of nicotine dependence; Z79.01 Long term (current) use of anticoagulants; Z79.84 Long term (current) use of oral hypoglycemic drugs; Z79.52 Long term (current) use of systemic steroids; Z79.899 Other long term (current) drug therapy; Z88.1 Allergy status to other antibiotic agents; Z88.5 Allergy status to narcotic agent; Z88.8 Allergy status to other drugs, medicaments and biological substances; Z91.013 Allergy to seafood; Z91.048 Other nonmedicinal substance allergy status
CPT/HCPCS: 36415; 80053; 85025; 71020; 99284; 96374; 96372; J1170

== ENCOUNTER 2018-10-02 10:10 | Observation (INO) | payer MEDICARE ==
[2018-10-02] MEDS ORDERED: NITROGLYCERIN OINT 1 INCH/GM PACKET TOPICAL STA (10:38)
[2018-10-02 10:53] LABS: Anisocytosis Slight; Basophils % (A) 1 %; Eosinophils # (A) 0.2 k/uL (0-0.7); Eosinophils % (A) 5 %; HCT 31.6 % (39.0-53.0); HGB 9.8 gm/dL (13.0-17.5); Hypochromasia Marked; Lymphocytes % (A) 18 %; MCH 25.2 pg (25.0-35.0); MCHC 31.2 g/dL (31.0-37.0); MCV 80.7 fL (80.0-100.0); Mean Platelet Volume 7.2; Monocytes # (A) 0.5 k/uL (0-1.0); Monocytes % (A) 8 %; Neutrophils # (A) 3.6 k/uL (1.3-7.7); Neutrophils % (A) 67 %; Platelet Count 186 k/uL (150-450); RBC 3.91 m/uL (4.30-5.90); RDW 16.4 % (11.5-15.5); WBC 5.4 k/uL (3.8-10.6)
[2018-10-02 11:02] LABS: Partial Thromboplastin Time 27.9 sec (22.0-30.0); Prothrombin Time 10.5 sec (9.0-12.0)
--- NOTE | 2018-10-02 11:02 | XR ---
EXAMINATION TYPE: XR chest 2V DATE OF EXAM: 10/02/2018 COMPARISON: Prior chest x-ray 10/21/2017 HISTORY: Chest pain TECHNIQUE: Frontal and lateral views of the chest are obtained on 3 images. FINDINGS: Prominent lung volumes, post median sternotomy change, coronary artery calcifications and possible stents again noted. No evident airspace disease, pneumothorax, or pleural effusion. Patient is post median sternotomy. Heart size is enlarged. There are overlying cardiac leads. Arthropathy not ed in the shoulders. IMPRESSION: Stable findings, no acute abnormality. Coronary artery disease, postop changes.
[2018-10-02 11:05] LABS: ALT 19 U/L (21-72); AST 11 U/L (17-59); Alkaline Phosphatase 73 U/L (38-126); Anion Gap 8 mmol/L; Blood Urea Nitrogen 10 mg/dL (9-20); Calcium 8.5 mg/dL (8.4-10.2); Carbon Dioxide 26 mmol/L (22-30); Chloride 108 mmol/L (98-107); Glucose 115 mg/dL (74-99); Magnesium 1.6 mg/dL (1.6-2.3); Sodium 142 mmol/L (137-145); Total Bilirubin 0.6 mg/dL (0.2-1.3); Total Protein 6.4 g/dL (6.3-8.2)
--- NOTE | 2018-10-02 11:05 | ED ---
General Adult HPI - General Chief complaint: Chest Pain Stated complaint: CHEST PAIN Time Seen by Provider: 10/02/18 10:10 Source: patient, EMS, RN notes reviewed Mode of arrival: EMS Limitations: no limitations - History of Present Illness Initial comments: This a 73-year-old male who presents emergency Department complaining of chest pain. Patient states the chest pain started this morning. Patient states he was also short of breath with the chest pain. Patient denies any radiation of the pain. Patient denies any recent fever chills or cough. Patient denies any abdominal pain. Patient denies any nausea vomiting diarrhea. Patient denies any diaphoretic episodes. Patient denies any leg pain or pain. Patient denies any radiation of the pain. Patient states he took a nitroglycerin and the embolus and it helped his pain considerably. Patient states he has a past medical history significant for diabetes, cardiac stents hypertension high cholesterol. Currently patient is chest pain-free - Related Data Home Medications Medication Instructions Recorded Confirmed Allopurinol [Zyloprim] 300 mg PO DAILY 08/07/17 10/02/18 Apixaban [Eliquis] 5 mg PO BID 08/07/17 10/02/18 Atorvastatin [Lipitor] 40 mg PO HS 08/07/17 10/02/18 Finasteride [Proscar] 5 mg PO HS 08/07/17 10/02/18 Magnesium Oxide [Mag-Ox] 400 mg PO BID 08/07/17 10/02/18 Omeprazole 20 mg PO DAILY 08/07/17 10/02/18 Tamsulosin HCl [Flomax] 0.4 mg PO DAILY 08/07/17 10/02/18 Albuterol Sulfate [Proventil Hfa] 1 - 2 puff INHALATION RT-QID PRN 10/15/1704/14 Ascorbic Acid [Vitamin C] 500 mg PO DAILY 10/02/18 10/02/18 Carvedilol [Coreg] 12.5 mg PO BID 10/02/18 10/02/18 Diazepam [Valium] 5 mg PO DAILY PRN 10/02/18 10/02/18 Ferrous Gluconate 324 mg PO BID 10/02/18 10/02/18 Gabapentin 600 mg PO BID@1900,2300 10/02/18 10/02/18 Hydrocodone/Acetaminophen [[place] 1 tab PO BID 10/02/18 10/02/18 5-325] Levothyroxine Sodium [Synthroid] 112 mcg PO DAILY 10/02/18 10/02/18 Levothyroxine Sodium [Synthroid] 125 mcg PO DAILY 10/02/18 10/02/18 Meclizine [Antivert] 12.5 mg PO DAILY PRN 10/02/18 10/02/18 Nitroglycerin Sl Tabs [Nitrostat] 0.4 mg SUBLINGUAL Q5M PRN 10/02/18 10/02/18 Ticagrelor [Brilinta] 90 mg PO BID 10/02/18 10/02/18 Allergies Allergy/AdvReac Type Severity Reaction Status Date / Time cephalexin [From Keflex] Allergy Unknown Verified 10/02/18 10:42 clopidogrel [From Plavix] Allergy Unknown Verified 10/02/18 10:42 Iodine and Iodide Containing Allergy Unknown Verified 10/02/18 10:42 Produc levofloxacin [From Levaquin] Allergy Unknown Verified 10/02/18 10:42 shellfish derived [Shellfish] Allergy Unknown Verified 10/02/18 10:42 solifenacin Allergy Unknown Verified 10/02/18 10:42 codeine AdvReac Nausea & Verified 10/02/18 10:42 Vomiting oxycodone AdvReac Hallucinati Verified 10/02/18 10:42 ons Review of Systems ROS Statement: Those systems with pertinent positive or pertinent negative responses have been documented in the HPI. ROS Other: All systems not noted in ROS Statement are negative. Past Medical History Past Medical History: Atrial Fibrillation, Asthma, Coronary Artery Disease (CAD) , COPD, Diabetes Mellitus, Hypertension, Myocardial Infarction ([place]) Additional Past Medical History / Comment(s): left knee cap broken History of Any Multi-Drug Resistant Organisms: None Reported Past Surgical History: Cholecystectomy, Coronary Bypass/CABG, Heart Catheterization With Stent, Hernia Repair, Orthopedic Surgery Past Anesthesia/Blood Transfusion Reactions: No Reported Reaction Date of Last Stent Placement:: 10/2015 Past Psychological History: No Psychological Hx Reported Smoking Status: Former smoker Past Alcohol Use History: Occasional Past Drug Use History: None Reported - Past Family History Father Family Medical History: Diabetes Mellitus General Exam - General Exam Comments Initial Comments: GENERAL: Patient is well-developed and well-nourished. Patient is nontoxic and well- hydrated and is in mild distress. ENT: Neck is soft and supple. No significant lymphadenopathy is noted. Oropharynx is clear. Moist mucous membranes. Neck has full range of motion without eliciting any pain. EYES: The sclera were anicteric and conjunctiva were pink and moist. Extraocular movements were intact and pupils were equal round and reactive to light. Eyelids were unremarkable. PULMONARY: Unlabored respirations. Good breath sounds bilaterally. No audible rales rhonchi or wheezing was noted. CARDIOVASCULAR: There is a regular rate and rhythm without any murmurs gallops or rubs. ABDOMEN: Soft and nontender with normal bowel sounds. No palpable organomegaly was noted. There is no palpable pulsatile mass. SKIN: Skin is clear with no lesions or rashes and otherwise unremarkable. NEUROLOGIC: Patient is alert and oriented x3. Cranial nerves II through XII are grossly intact. Motor and sensory are also intact. Normal speech, volume and content. Symmetrical smile. MUSCULOSKELETAL: Normal extremities with adequate strength and full range of motion. LYMPHATICS: No significant lymphadenopathy is noted PSYCHIATRIC: Normal psychiatric evaluation. Limitations: no limitations Course Vital Signs 10/02/18 10/02/18 10:11 11:01 Temperature 98 F Pulse Rate 55 L 60 Respiratory 18 18 Rate Blood Pressure 128/69 113/61 O2 Sat by Pulse 98 98 Oximetry Medical Decision Making - Medical Decision Making EKG sinus bradycardia at 53 bpm HI interval is 188 QRSs 164 QT interval 514 QTC is 482. Patient's EKG shows a right bundle graciela block. There is no ST segment elevation. Patient was chest pain-free throughout the ED course. I spoke with Dr. Mg he agreed to admit the patient admitted the patient I wrote admitting orders. - Lab Data Result diagrams: 10/02/18 10:29 10/02/18 10:29 Lab Results 10/02/18 10/02/18 10/02/18 Range/Units 10:29 10:29 10:29 WBC 5.4 (3.8-10.6) k/uL RBC 3.91 L (4.30-5.90) m/uL Hgb 9.8 L (13.0-17.5) gm/dL Hct 31.6 L (39.0-53.0) % MCV 80.7 (80.0-100.0) fL MCH 25.2 (25.0-35.0) pg MCHC 31.2 (31.0-37.0) g/dL RDW 16.4 H (11.5-15.5) % Plt Count 186 (150-450) k/uL Neutrophils % 67 % Lymphocytes % 18 % Monocytes % 8 % Eosinophils % 5 % Basophils % 1 % Neutrophils # 3.6 (1.3-7.7) k/uL Lymphocytes # 1.0 (1.0-4.8) k/uL Monocytes # 0.5 (0-1.0) k/uL Eosinophils # 0.2 (0-0.7) k/uL Basophils # 0.0 (0-0.2) k/uL Hypochromasia Marked Anisocytosis Slight PT (9.0-12.0) sec INR (<1.2) APTT (22.0-30.0) sec Sodium 142 (137-145) mmol/L Potassium 4.0 (3.5-5.1) mmol/L Chloride 108 H (98-107) mmol/L Carbon Dioxide 26 (22-30) mmol/L Anion Gap 8 mmol/L BUN 10 (9-20) mg/dL Creatinine 0.95 (0.66-1.25) mg/dL Est GFR (CKD-EPI)AfAm >90 (>60 ml/min/1.73 sqM) Est GFR (CKD-EPI)NonAf 79 (>60 ml/min/1.73 sqM) Glucose 115 H (74-99) mg/dL Calcium 8.5 (8.4-10.2) mg/dL Magnesium 1.6 (1.6-2.3) mg/dL Total Bilirubin 0.6 (0.2-1.3) mg/dL AST 11 L (17-59) U/L ALT 19 L (21-72) U/L Alkaline Phosphatase 73 (38-126) U/L Total Creatine Kinase 39 L (55-170) U/L CK-MB (CK-2) 0.5 (0.0-2.4) ng/mL CK-MB (CK-2) Rel Index 1.3 Troponin I <0.012 (0.000-0.034) ng/mL Total Protein 6.4 (6.3-8.2) g/dL Albumin 3.0 L (3.5-5.0) g/dL 12/06/18 Range/Units 10:29 WBC (3.8-10.6) k/uL RBC (4.30-5.90) m/uL Hgb (13.0-17.5) gm/dL Hct (39.0-53.0) % MCV (80.0-100.0) fL MCH (25.0-35.0) pg MCHC (31.0-37.0) g/dL RDW (11.5-15.5) % Plt Count (150-450) k/uL Neutrophils % % Lymphocytes % % Monocytes % % Eosinophils % % Basophils % % Neutrophils # (1.3-7.7) k/uL Lymphocytes # (1.0-4.8) k/uL Monocytes # (0-1.0) k/uL Eosinophils # (0-0.7) k/uL Basophils # (0-0.2) k/uL Hypochromasia Anisocytosis PT 10.5 (9.0-12.0) sec INR 1.0 (<1.2) APTT 27.9 (22.0-30.0) sec Sodium (137-145) mmol/L Potassium (3.5-5.1) mmol/L Chloride (98-107) mmol/L Carbon Dioxide (22-30) mmol/L Anion Gap mmol/L BUN (9-20) mg/dL Creatinine (0.66-1.25) mg/dL Est GFR (CKD-EPI)AfAm (>60 ml/min/1.73 sqM) Est GFR (CKD-EPI)NonAf (>60 ml/min/1.73 sqM) Glucose (74-99) mg/dL Calcium (8.4-10.2) mg/dL Magnesium (1.6-2.3) mg/dL Total Bilirubin (0.2-1.3) mg/dL AST (17-59) U/L ALT (21-72) U/L Alkaline Phosphatase (38-126) U/L Total Creatine Kinase (55-170) U/L CK-MB (CK-2) (0.0-2.4) ng/mL CK-MB (CK-2) Rel Index Troponin I (0.000-0.034) ng/mL Total Protein (6.3-8.2) g/dL Albumin (3.5-5.0) g/dL Disposition Clinical Impression: Unstable angina pectoris Disposition: ADMITTED IP TO THIS HOSP Referrals: Teresa Walter MD [Primary Care Provider] - 1-2 days Time of Disposition: 12:00
[2018-10-02 11:13] LABS: Creatine Kinase 39 U/L (55-170)
[2018-10-02 11:26] LABS: Creatine Kinase MB 0.5 ng/mL (0.0-2.4); Troponin I <0.012 ng/mL (0.000-0.034)
[2018-10-02] MEDS ORDERED: NITROGLYCERIN SL TABS 0.4 MG TAB SUBLINGUAL PRN ×2 (12:50→14:03)
[2018-10-02] MEDS ORDERED: DIAZEPAM 5 MG TAB PO PRN (14:03)
[2018-10-02] MEDS ORDERED: ALBUTEROL INHALER 60 PUFF/8 GM INHALER INHALATION PRN (14:03)
[2018-10-02] MEDS ORDERED: MECLIZINE 12.5 MG TAB PO PRN (14:03)
--- NOTE | 2018-10-02 14:28 | P.HPIM ---
History of Present Illness H&P Date: 10/02/18 Chief Complaint: Chest pain This is a 73-year-old male, patient of Dr. Walter. He has a known past medical history of myocardial infarction, coronary artery disease with previous cardiac stents. Last cardiac stents placed in December 2017. Patient also has a history of CABG. History of hypertension, hyperlipidemia, diabetes mellitus type 2 diet -controlled, hypothyroidism, paroxysmal atrial fibrillation anticoagulated with Eliquis. Also history of COPD, former smoker and gallstone pancreatitis. Patient presents to the hospital with complaints of left-sided chest heaviness that radiated down into the left arm. Symptoms started this morning lasting for about 2-3 hours. He also had some shortness of breath. His gave him 4 baby aspirin's. Symptoms did show improvement. EMS was called he received nitro in the ambulance and again had further improvement of his chest discomfort. At this time he is chest pain-free. He denies any diaphoresis nausea or vomiting. Denies any cough or cold-like symptoms. Denies any fever chills or sweats. Denies a bowel movement changes or urinary symptoms. First troponin is negative chest x-ray negative. EKG sinus bradycardia with a heart rate of 53 and a right bundle branch block. Cardiology has been placed on consult. Patient also has a known left patellar fracture. This occurred after a fall last September. However no surgical intervention done due to his heart attack at that time. Patient has significant left knee pain. There is swelling noted. Orthopedics will be placed consult as well. Patient has had previous left total knee arthroplasty with infection and sepsis. That knee was treated with antibiotics and removal of equipment. And had another knee replacement. Patient uses walker to ambulate. Patient does have a hemoglobin of 9.8. He does report there was a positive stool for occult blood outpatient and underwent colonoscopy this past in [place] which was negative. He is on iron supplements. Patient denies any visible blood or black stools. Review of Systems please refer to HPI otherwise unremarkable Past Medical History Past Medical History: Atrial Fibrillation, Asthma, Coronary Artery Disease (CAD) , COPD, Diabetes Mellitus, Hypertension, Myocardial Infarction (ID) Additional Past Medical History / Comment(s): left knee cap broken History of Any Multi-Drug Resistant Organisms: None Reported Past Surgical History: Cholecystectomy, Coronary Bypass/CABG, Heart Catheterization With Stent, Hernia Repair, Orthopedic Surgery Past Anesthesia/Blood Transfusion Reactions: No Reported Reaction Date of Last Stent Placement:: 10/2015 Past Psychological History: No Psychological Hx Reported Smoking Status: Former smoker Past Alcohol Use History: Occasional Past Drug Use History: None Reported - Past Family History Father Family Medical History: Diabetes Mellitus Medications and Allergies Home Medications Medication Instructions Recorded Confirmed Type Allopurinol [Zyloprim] 300 mg PO DAILY 08/07/17 10/02/18 History Apixaban [Eliquis] 5 mg PO BID 08/07/17 10/02/18 History Atorvastatin [Lipitor] 40 mg PO HS 08/07/17 10/02/18 History Finasteride [Proscar] 5 mg PO HS 08/07/17 10/02/18 History Magnesium Oxide [Mag-Ox] 400 mg PO BID 08/07/17 10/02/18 History Omeprazole 20 mg PO DAILY 08/07/17 10/02/18 History Tamsulosin HCl [Flomax] 0.4 mg PO DAILY 08/07/17 10/02/18 History Albuterol Sulfate [Proventil Hfa] 1 - 2 puff INHALATION RT-QID PRN 10/15/1704/14 History Ascorbic Acid [Vitamin C] 500 mg PO DAILY 10/02/18 10/02/18 History Carvedilol [Coreg] 12.5 mg PO BID 10/02/18 10/02/18 History Diazepam [Valium] 5 mg PO DAILY PRN 10/02/18 10/02/18 History Ferrous Gluconate 324 mg PO BID 10/02/18 10/02/18 History Gabapentin 600 mg PO BID@1900,2300 10/02/18 10/02/18 History Hydrocodone/Acetaminophen [[place] 1 tab PO BID 10/02/18 10/02/18 History 5-325] Levothyroxine Sodium [Synthroid] 112 mcg PO DAILY 10/02/18 10/02/18 History Levothyroxine Sodium [Synthroid] 125 mcg PO DAILY 10/02/18 10/02/18 History Meclizine [Antivert] 12.5 mg PO DAILY PRN 10/02/18 10/02/18 History Nitroglycerin Sl Tabs [Nitrostat] 0.4 mg SUBLINGUAL Q5M PRN 10/02/18 10/02/18 History Ticagrelor [Brilinta] 90 mg PO BID 10/02/18 10/02/18 History Allergies Allergy/AdvReac Type Severity Reaction Status Date / Time cephalexin [From Keflex] Allergy Unknown Verified 10/02/18 10:42 clopidogrel [From Plavix] Allergy Unknown Verified 10/02/18 10:42 Iodine and Iodide Containing Allergy Unknown Verified 10/02/18 10:42 Produc levofloxacin [From Levaquin] Allergy Unknown Verified 10/02/18 10:42 shellfish derived [Shellfish] Allergy Unknown Verified 10/02/18 10:42 solifenacin Allergy Unknown Verified 10/02/18 10:42 codeine AdvReac Nausea & Verified 10/02/18 10:42 Vomiting oxycodone AdvReac Hallucinati Verified 10/02/18 10:42 ons Physical Exam Vitals: Vital Signs Temp Pulse Resp BP Pulse Ox 10/02/18 12:00 71 16 121/63 95 10/02/18 11:30 58 L 17 113/61 95 10/02/18 11:01 60 18 113/61 98 10/02/18 11:00 60 15 122/63 95 10/02/18 10:30 60 16 128/69 99 10/02/18 10:14 100 10/02/18 10:11 98 F 55 L 18 128/69 98 Intake and Output 10/01/18 10/02/18 10/02/18 22:59 06:59 14:59 Other: Weight 102.058 kg Head normocephalic Neck supple Lungs clear to auscultation bilaterally no wheezing or crackles Heart regular rate and rhythm S1-S2, no rub or gallop Abdomen is soft nontender nondistended positive bowel sounds no hepatosplenomegaly Extremities no edema. Left knee swollen Neuro alert and orientated to 3 Results CBC & Chem 7: 10/02/18 10:29 10/02/18 10:29 Labs: Abnormal Lab Results - Last 24 Hours (Table) 10/02/18 10/02/18 10/02/18 Range/Units 10:29 10:29 10:29 RBC 3.91 L (4.30-5.90) m/uL Hgb 9.8 L (13.0-17.5) gm/dL Hct 31.6 L (39.0-53.0) % RDW 16.4 H (11.5-15.5) % Chloride 108 H (98-107) mmol/L Glucose 115 H (74-99) mg/dL AST 11 L (17-59) U/L ALT 19 L (21-72) U/L Total Creatine Kinase 39 L (55-170) U/L Albumin 3.0 L (3.5-5.0) g/dL Assessment and Plan Assessment: 1. Chest pain: Cardiac workup in progress. First troponin is negative. EKG sinus bradycardia heart rate 53 and right bundle branch block. Chest x-ray negative. Cardiology on consult. Patient does have cardiac risk factors which include coronary artery disease with previous stent CABG and myocardial infarction. As well as diabetes, hypertension and hyperlipidemia. We'll change aspirin to 81 mg daily since patient is on Brilinta and Eliquis after discussing with cardiology in [employer] 2. Left patellar fracture after a fall last September: Consult orthopedics. Patient has MRI disc 3. History of myocardial infarction, coronary disease with previous cardiac stents and CABG. Last stent was December 2017 patient remains on Brilinta 4. History of diabetes mellitus type 2 diet controlled. Check A1c. Add sliding scale coverage 5. Paroxysmal atrial fibrillation anticoagulated with Eliquis 6. Essential hypertension 7. Hypothyroidism continue Synthroid 8. Hyperlipidemia 9. History of COPD no evidence of exacerbation. 10. Iron deficiency anemia: Hemoglobin 9.8. Check iron studies. Recent colonoscopy last week revealing hemorrhoids per GI prophylaxis omeprazole and DVT prophylaxis Eliquis Time with Patient: Greater than 30 (Greater than 50% of the total time spent in counseling and coordination of care.I performed an examination of the patient and discussed their management with the physician Managed Care Specialist. I have reviewed the Physician Managed Care Specialist's notes and agree with the documented findings and plan of care)
[2018-10-02] MEDS: HYDROcodone/APAP 7.5-325MG 1 EACH TAB PO PRN ×2 (15:18→22:25)
[2018-10-02 16:52] LABS: Glucose,Whole Blood 130 mg/dL (75-99)
[2018-10-02 18:12] LABS: Creatine Kinase 37 U/L (55-170)
[2018-10-02 18:24] LABS: Creatine Kinase MB 0.5 ng/mL (0.0-2.4); Troponin I <0.012 ng/mL (0.000-0.034)
[2018-10-02] MEDS: INSULIN ASPART 100 UNIT/ML 1 ML 10 ML VIAL SQ SCH ×2 (18:54→22:14)
[2018-10-02] MEDS: NITROGLYCERIN OINT 1 INCH/GM PACKET TOPICAL SCH (18:54)
[2018-10-02] MEDS: GABAPENTIN 300 MG CAP PO SCH ×2 (18:54→22:23)
[2018-10-02 20:33] VITALS: RESP 18
[2018-10-02 20:41] LABS: Glucose,Whole Blood 122 mg/dL (75-99)
[2018-10-02] MEDS ORDERED: FINASTERIDE 5 MG TAB PO SCH (21:00)
[2018-10-02] MEDS ORDERED: HYDROcodone/APAP 5-325MG 1 EACH TAB PO SCH (21:00)
[2018-10-02] MEDS ORDERED: APIXABAN 5 MG TAB PO SCH (21:00)
[2018-10-02] MEDS ORDERED: ATORVASTATIN 40 MG TAB PO SCH (21:00)
[2018-10-02 21:06] LABS: Hemoglobin A1C 7.3 % (4.0-6.0)
--- NOTE | 2018-10-02 22:11 | XR ---
PROCEDURE: XR knee 4V LT - 4V DATE AND TIME: 10/02/2018 5:30 PM CLINICAL INDICATION: PHH; Left patellar fracture TECHNIQUE: Department protocol COMPARISON: None FINDINGS: There is soft tissue swelling about the knee, particularly medially. TKR appears in anatomic positioning and alignment. There is no fracture or malalignment. No focal skeletal findings. IMPRESSION: Soft tissue swelling.
[2018-10-02] MEDS: APIXABAN 5 MG TAB PO SCH (22:21)
[2018-10-02] MEDS: CARVEDILOL 12.5 MG TAB PO SCH (22:22)
[2018-10-02] MEDS: FERROUS SULFATE 325 MG TAB PO SCH (22:22)
[2018-10-02] MEDS: TICAGRELOR 90 MG TAB PO SCH (22:23)
[2018-10-02] MEDS: MAGNESIUM OXIDE 400 MG TAB PO SCH (22:23)
[2018-10-02 22:31] LABS: Creatine Kinase 36 U/L (55-170)
[2018-10-02 22:42] LABS: Creatine Kinase MB 0.4 ng/mL (0.0-2.4); Troponin I <0.012 ng/mL (0.000-0.034)
[2018-10-03] MEDS: NITROGLYCERIN OINT 1 INCH/GM PACKET TOPICAL SCH ×2 (00:28→06:15)
[2018-10-03 04:44] LABS: Iron Saturation 9.73 (15.00-50.00)
[2018-10-03 05:58] LABS: Glucose,Whole Blood 109 mg/dL (75-99)
[2018-10-03] MEDS: INSULIN ASPART 100 UNIT/ML 1 ML 10 ML VIAL SQ SCH (06:13)
[2018-10-03 07:45] LABS: Anisocytosis Slight; Basophils % (A) 1 %; Eosinophils # (A) 0.4 k/uL (0-0.7); Eosinophils % (A) 8 %; HCT 31.5 % (39.0-53.0); HGB 9.3 gm/dL (13.0-17.5); Hypochromasia Marked; Lymphocytes # (A) 1.1 k/uL (1.0-4.8); Lymphocytes % (A) 20 %; MCHC 29.5 g/dL (31.0-37.0); MCV 84.9 fL (80.0-100.0); Mean Platelet Volume 7.3; Monocytes # (A) 0.5 k/uL (0-1.0); Monocytes % (A) 9 %; Neutrophils # (A) 3.3 k/uL (1.3-7.7); Neutrophils % (A) 61 %; Platelet Count 172 k/uL (150-450); RBC 3.71 m/uL (4.30-5.90); RDW 16.6 % (11.5-15.5); WBC 5.4 k/uL (3.8-10.6)
[2018-10-03 08:09] LABS: ALT 14 U/L (21-72); AST 11 U/L (17-59); Alkaline Phosphatase 68 U/L (38-126); Anion Gap 7 mmol/L; Blood Urea Nitrogen 10 mg/dL (9-20); Calcium 8.7 mg/dL (8.4-10.2); Carbon Dioxide 24 mmol/L (22-30); Chloride 110 mmol/L (98-107); Cholesterol 79 mg/dL (<200); Glucose 104 mg/dL (74-99); HDL Cholesterol 21 mg/dL (40-60); LDL Cholesterol,Calculated 30 mg/dL (0-99); Potassium 4.2 mmol/L (3.5-5.1); Sodium 141 mmol/L (137-145); Total Bilirubin 0.7 mg/dL (0.2-1.3); Total Protein 6.3 g/dL (6.3-8.2); Triglycerides 141 mg/dL (<150)
[2018-10-03] MEDS ORDERED: LEVOTHYROXINE 112 MCG TAB PO SCH (09:00)
[2018-10-03] MEDS ORDERED: ALLOPURINOL 300 MG TAB PO SCH (09:00)
[2018-10-03] MEDS ORDERED: ASPIRIN 325 MG TAB PO SCH (09:00)
[2018-10-03] MEDS ORDERED: LEVOTHYROXINE 125 MCG TAB PO SCH (09:00)
[2018-10-03] MEDS ORDERED: ASCORBIC ACID 500 MG TAB PO SCH (09:00)
[2018-10-03] MEDS ORDERED: TAMSULOSIN 0.4 MG CAP.ER.24H PO SCH (09:00)
[2018-10-03] MEDS ORDERED: ASPIRIN 81 MG PO SCH (09:00)
[2018-10-03] MEDS ORDERED: PANTOPRAZOLE 40 MG TABLET PO SCH (09:00)
[2018-10-03] MEDS: APIXABAN 5 MG TAB PO SCH (09:16)
[2018-10-03] MEDS: CARVEDILOL 12.5 MG TAB PO SCH (09:16)
[2018-10-03] MEDS: MAGNESIUM OXIDE 400 MG TAB PO SCH (09:16)
[2018-10-03] MEDS: FERROUS SULFATE 325 MG TAB PO SCH (09:17)
[2018-10-03] MEDS: TICAGRELOR 90 MG TAB PO SCH (09:18)
--- NOTE | 2018-10-03 09:23 | P.CRDCN ---
History of Present Illness Consult date: 10/03/18 Requesting physician: Karoline Mg Consult reason: chest pain Chief complaint: Chest pain and left knee pain History of present illness: This is a 73-year-old gentleman who lives half of the year in [place] and half the year in [facility], he has past medical history significant for coronary artery disease with prior bypass surgery and stent placements, most recently patient had a stent placed in December 2017. He has history also of hypertension, hyperlipidemia, diabetes, hypothyroidism, paroxysmal atrial fibrillation, COPD, prior nicotine dependence, gallstone pancreatitis, and known left patellar fracture which occurred after a fall last September. No surgical intervention was done, patient was recommended a knee brace. Patient at that time was also treated with antibiotics because of infection and sepsis. He presents to the hospital on this occasion with symptoms of chest pressure and heaviness with some discomfort in his left arm. He states that this was preempted by significant pain in his left knee. Chest x -ray on admission revealed stable findings, no acute abnormality. EKG shows a sinus bradycardia with a right bundle branch block pattern. Left knee x-ray reveals some soft tissue swelling. Blood pressure on arrival here 128/60 with a heart rate in the 60s, 98% on 2 L. White blood cell count 5.4, hemoglobin 9.3 , platelet count 172. Sodium 141, potassium 4.2, BUN 10, creatinine 0.9. Troponins negative 3. At the time of my examination this morning, patient is currently chest pain-free, he is just complaining of some pain in the left knee. He has been seen by orthopedics this morning who recommended him to follow-up with his orthopedic doctor on return to [place]. Patient's home medications prior to this admission included Synthroid, Antivert, Brilinta , Lipitor, Eliquis 5 mg twice a day, and Coreg 12-1/2 mg twice a day. According to the patient, his bracelet form coverer told him that he was planning on discontinuing the Brilinta in December, at which time he was going to be initiated on Plavix or aspirin. Past Medical History Past Medical History: Atrial Fibrillation, Asthma, Coronary Artery Disease (CAD) , COPD, Diabetes Mellitus, Hypertension, Myocardial Infarction (MT), Pneumonia Additional Past Medical History / Comment(s): left knee cap broken, pancreatitis , /gallstones(sx done). 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 date Last Myocardial Infarction Date:: 2017 History of Any Multi-Drug Resistant Organisms: None Reported Past Surgical History: Cholecystectomy, Coronary Bypass/CABG, Heart Catheterization With Stent, Hernia Repair, Orthopedic Surgery Additional Past Surgical History / Comment(s): tooth extractions, lt knee replacement(total of 3 sx), colonoscopy, picc line-since removed Past Anesthesia/Blood Transfusion Reactions: No Reported Reaction Date of Last Stent Placement:: 10/2015 Smoking Status: Former smoker - Past Family History Father Family Medical History: Diabetes Mellitus Mother Family Medical History: CVA/TIA, Hypertension Medications and Allergies Home Medications Medication Instructions Recorded Confirmed Type Allopurinol [Zyloprim] 300 mg PO DAILY 08/07/17 10/02/18 History Apixaban [Eliquis] 5 mg PO BID 08/07/17 10/02/18 History Atorvastatin [Lipitor] 40 mg PO HS 08/07/17 10/02/18 History Finasteride [Proscar] 5 mg PO HS 08/07/17 10/02/18 History Magnesium Oxide [Mag-Ox] 400 mg PO BID 08/07/17 10/02/18 History Omeprazole 20 mg PO DAILY 08/07/17 10/02/18 History Tamsulosin HCl [Flomax] 0.4 mg PO DAILY 08/07/17 10/02/18 History Albuterol Sulfate [Proventil Hfa] 1 - 2 puff INHALATION RT-QID PRN 10/15/1704/14 History Ascorbic Acid [Vitamin C] 500 mg PO DAILY 10/02/18 10/02/18 History Carvedilol [Coreg] 12.5 mg PO BID 10/02/18 10/02/18 History Diazepam [Valium] 5 mg PO DAILY PRN 10/02/18 10/02/18 History Ferrous Gluconate 324 mg PO BID 10/02/18 10/02/18 History Gabapentin 600 mg PO BID@1900,2300 10/02/18 10/02/18 History Hydrocodone/Acetaminophen [[place] 1 tab PO BID 10/02/18 10/02/18 History 5-325] Levothyroxine Sodium [Synthroid] 112 mcg PO DAILY 10/02/18 10/02/18 History Levothyroxine Sodium [Synthroid] 125 mcg PO DAILY 10/02/18 10/02/18 History Meclizine [Antivert] 12.5 mg PO DAILY PRN 10/02/18 10/02/18 History Nitroglycerin Sl Tabs [Nitrostat] 0.4 mg SUBLINGUAL Q5M PRN 10/02/18 10/02/18 History Ticagrelor [Brilinta] 90 mg PO BID 10/02/18 10/02/18 History Allergies Allergy/AdvReac Type Severity Reaction Status Date / Time cephalexin [From Keflex] Allergy Unknown Verified 10/02/18 10:42 clopidogrel [From Plavix] Allergy Unknown Verified 10/02/18 10:42 Iodine and Iodide Containing Allergy Unknown Verified 10/02/18 10:42 Produc levofloxacin [From Levaquin] Allergy Unknown Verified 10/02/18 10:42 shellfish derived [Shellfish] Allergy Unknown Verified 10/02/18 10:42 solifenacin Allergy Unknown Verified 10/02/18 10:42 codeine AdvReac Nausea & Verified 10/02/18 10:42 Vomiting oxycodone AdvReac Hallucinati Verified 10/02/18 10:42 ons Physical Exam Vitals: Vital Signs Temp Pulse Pulse Resp BP BP Pulse Ox 10/03/18 04:00 97.7 F 54 L 18 95/53 97 10/03/18 00:00 62 18 104/56 97 10/02/18 20:15 98.0 F 63 18 120/64 96 10/02/18 15:09 63 16 10/02/18 14:44 98.1 F 63 16 131/66 92 L 10/02/18 14:20 98.2 F 10/02/18 14:00 68 16 117/67 95 10/02/18 13:30 62 115/65 98 10/02/18 13:00 59 L 113/65 97 10/02/18 12:30 64 129/52 96 10/02/18 12:00 71 16 121/63 95 10/02/18 11:30 58 L 17 113/61 95 10/02/18 11:01 60 18 113/61 98 10/02/18 11:00 60 15 122/63 95 10/02/18 10:30 60 16 128/69 99 12/06/18 10:14 100 10/02/18 10:11 98 F 55 L 18 128/69 98 Intake and Output 10/02/18 10/03/18 10/03/18 22:59 06:59 14:59 Output Total 350 300 Balance -350 -300 Output: Urine 350 300 Other: Voiding Method Urinal Urinal # Voids 1 Weight 89 kg PHYSICAL EXAMINATION: GENERAL: 89-year-old gentleman in no acute distress at the time of my examination HEENT: Head is atraumatic, normocephalic. Pupils equal, round. Sclera anicteric. Conjunctiva are clear. Mucous membranes of the mouth are moist. Neck is supple. There is no elevated jugular venous pressure. No carotid bruit is heard. HEART EXAMINATION: Heart S1 and S2 systolic murmur is heard. CHEST EXAMINATION: Lungs are clear to auscultation and precussion. No chest wall tenderness is noted on palpation or with deep breathing. ABDOMEN: Soft, nontender. Bowel sounds are heard. No organomegaly noted. EXTREMITIES: 2+ peripheral pulses with no evidence of peripheral edema and no calf tenderness noted. Positive left knee pain NEUROLOGIC patient is awake, alert and oriented 3 . Results 10/03/18 06:23 10/03/18 06:23 Cardiac Enzymes 10/02/18 10/02/18 10/02/18 Range/Units 10:29 10:29 17:00 AST 11 L (17-59) U/L CK-MB (CK-2) 0.5 0.5 (0.0-2.4) ng/mL Troponin I <0.012 <0.012 (0.000-0.034) ng/mL 10/02/18 10/03/18 Range/Units 21:46 06:23 AST 11 L (17-59) U/L CK-MB (CK-2) 0.4 (0.0-2.4) ng/mL Troponin I <0.012 (0.000-0.034) ng/mL Coagulation 10/02/18 Range/Units 10:29 PT 10.5 (9.0-12.0) sec APTT 27.9 (22.0-30.0) sec Lipids 10/03/18 Range/Units 06:23 Triglycerides 141 (<150) mg/dL Cholesterol 79 (<200) mg/dL HDL Cholesterol 21 L (40-60) mg/dL CBC 10/02/18 10/03/18 Range/Units 10:29 06:23 WBC 5.4 5.4 (3.8-10.6) k/uL RBC 3.91 L 3.71 L (4.30-5.90) m/uL Hgb 9.8 L 9.3 L (13.0-17.5) gm/dL Hct 31.6 L 31.5 L (39.0-53.0) % Plt Count 186 172 (150-450) k/uL Comprehensive Metabolic Panel 10/02/18 10/03/18 Range/Units 10:29 06:23 Sodium 142 141 (137-145) mmol/L Potassium 4.0 4.2 (3.5-5.1) mmol/L Chloride 108 H 110 H (98-107) mmol/L Carbon Dioxide 26 24 (22-30) mmol/L BUN 10 10 (9-20) mg/dL Creatinine 0.95 0.92 (0.66-1.25) mg/dL Glucose 115 H 104 H (74-99) mg/dL Calcium 8.5 8.7 (8.4-10.2) mg/dL AST 11 L 11 L (17-59) U/L ALT 19 L 14 L (21-72) U/L Alkaline Phosphatase 73 68 (38-126) U/L Total Protein 6.4 6.3 (6.3-8.2) g/dL Albumin 3.0 L 3.0 L (3.5-5.0) g/dL Current Medications Generic Name Dose Route Start Last Admin Trade Name Freq PRN Reason Stop Dose Admin Hydrocodone Bitart/Acetaminophen 1 each 10/02/18 15:07 10/02/18 22:[address] [place] [address] [place] 7.5-325 PO 1 each Q6H PRN Administration Moderate Pain Albuterol Sulfate 2 puff 10/02/18 14:03 Ventolin Hfa Inhaler INHALATION RT-QID PRN Shortness Of Breath Allopurinol 300 mg 10/03/18 09:00 Zyloprim PO DAILY [facility] Apixaban 2.5 mg 10/02/18 21:00 10/02/18 22:21 Eliquis PO 2.5 mg BID [facility] Administration Ascorbic Acid 500 mg 10/03/18 09:00 Vitamin C PO DAILY [facility] Aspirin 81 mg 10/03/18 09:00 Aspirin PO DAILY [facility] Atorvastatin Calcium 40 mg 10/02/18 21:00 10/02/18 22:22 Lipitor PO 40 mg HS [facility] Administration Carvedilol 12.5 mg 10/02/18 21:00 10/02/18 22:22 Coreg PO 6.25 mg BID [facility] Administration Diazepam 5 mg 10/02/18 14:03 Valium PO DAILY PRN Anxiety Ferrous Sulfate 324 mg 10/02/18 21:00 10/02/18 22:22 Feosol PO 324 mg BID [facility] Administration Finasteride 5 mg 10/02/18 21:00 10/02/18 22:23 Proscar PO 5 mg HS [facility] Administration Gabapentin 600 mg 10/02/18 19:00 10/02/18 22:23 Neurontin PO 600 mg BID@1900,2300 [facility] Administration Insulin Aspart 0 unit 10/02/18 17:30 10/03/18 06:13 Novolog SQ Not Given ACHS [facility] Protocol Levothyroxine Sodium 112 mcg 10/03/18 09:00 Synthroid PO DAILY [facility] Levothyroxine Sodium 125 mcg 10/03/18 09:00 Synthroid PO DAILY [facility] Magnesium Oxide 400 mg 10/02/18 21:00 10/02/18 22:23 Mag-Ox PO 400 mg BID [facility] Administration Meclizine HCl 12.5 mg 10/02/18 14:03 Antivert PO DAILY PRN Nausea Nitroglycerin 1 inch 10/02/18 18:00 10/03/18 06:15 Nitro-Bid Oint TOPICAL 1 inch Q6HR [facility] Administration Nitroglycerin 0.4 mg 10/02/18 12:50 Nitrostat SUBLINGUAL Q5M PRN Chest Pain Pantoprazole Sodium 40 mg 10/03/18 09:00 Protonix PO DAILY [facility] Tamsulosin HCl 0.4 mg 10/03/18 09:00 Flomax PO DAILY [facility] Ticagrelor 90 mg 10/02/18 21:00 10/02/18 22:23 Brilinta PO 90 mg BID [facility] Administration Intake and Output 10/02/18 10/03/18 10/03/18 22:59 06:59 14:59 Output Total 350 300 Balance -350 -300 Output: Urine 350 300 Other: Voiding Method Urinal Urinal # Voids 1 Weight 89 kg 10/03/18 06:23 10/03/18 06:23 EKG Interpretations (text) EKG shows a sinus bradycardia with a right bundle branch block pattern, left anterior fascicular block, nonspecific ST-T wave changes. Assessment and Plan Plan: Assessment and plan #1 chest pain, atypical for acute coronary syndrome. Troponins negative 3. EKG shows a sinus bradycardia with a right bundle branch block pattern. #2 left knee pain, patient had incurred a left patellar fracture after a fall last September, being followed by orthopedics in [place]. #3 known history of coronary artery disease with prior bypass surgery and stent placements, most recent stent placements were performed in December of this year, patient is on Brilinta 90 mg twice a day. #4 diabetes #5 hypertension #6 hyperlipidemia #7 hypothyroidism #8 COPD #9 iron deficiency anemia, patient had a recent colonoscopy one week ago which revealed hemorrhoids. #10 paroxysmal atrial fibrillation, anticoagulated with Eliquis. Plan We will obtain an echocardiogram with Doppler study. We will discontinue the patient's aspirin, continue Brilinta and Eliquis. Decrease Eliquis 2-1/2 mg twice a day. Further recommendations to follow. DNP note has been reviewed, I agree with a documented findings and plan of care. Patient was seen and examined.
[2018-10-03] MEDS: HYDROcodone/APAP 7.5-325MG 1 EACH TAB PO PRN (09:24)
--- NOTE | 2018-10-03 10:18 | P.CNOR ---
History of Present Illness - HPI Consult date: 10/03/18 History of present illness: This is a 73 year old male with a past medical history of coronary artery disease with bypass and stent placement, last stent placed in 2017, hypertension , hyperlipidemia, diabetes, hypothyroidism, paroxysmal atrial fibrillation, COPD , prior nicotine dependence, gallstone pancreatitis, and a known left patellar fracture, which he sustained after a fall last September. The patient presented to the ER yesterday via ambulance with chest pain. On arrival, the patient also complained of left knee pain. Patient states he lives half the year in [place] and half the year in [place], the orthopedic surgeon he follows with is in [place]. He states he had a total knee arthoplasty in 2010, and it became infected in 2013 and the implants were removed and he underwent a revision. He was on IV antibiotics for 12 weeks. Patient states he fell in September 2017 and sustained a left patellar fracture, and no surgical intervention was performed at that time due to his cardiac issues. Patient states his orthopedic surgeon in [place] attempted to perform an aspiration of the knee a few months ago, but there was no fluid to aspirate. Patient states since last September, he has been experiencing pain and swelling of the left knee. He uses a knee brace at home and a walker or cane for ambulation. He denies any recent falls, or any increases in pain. He denies fever, chills, erythema of the left knee. He denies any recent infections. Review of Systems Refer to HPI. Past Medical History Past Medical History: Atrial Fibrillation, Asthma, Coronary Artery Disease (CAD) , COPD, Diabetes Mellitus, Hypertension, Myocardial Infarction (LA), Pneumonia Additional Past Medical History / Comment(s): left knee cap broken, pancreatitis , /gallstones(sx done). no longer takes meds for dm, x2 mi's(1991 ans 2017), pt stated utd on pne vaccine jingle writer unable to verify date Last Myocardial Infarction Date:: 2017 History of Any Multi-Drug Resistant Organisms: None Reported Past Surgical History: Cholecystectomy, Coronary Bypass/CABG, Heart Catheterization With Stent, Hernia Repair, Orthopedic Surgery Additional Past Surgical History / Comment(s): tooth extractions, lt knee replacement(total of 3 sx), colonoscopy, picc line-since removed Past Anesthesia/Blood Transfusion Reactions: No Reported Reaction Date of Last Stent Placement:: 10/2015 Smoking Status: Former smoker - Past Family History Father Family Medical History: Diabetes Mellitus Mother Family Medical History: CVA/TIA, Hypertension Medications and Allergies Home Medications Medication Instructions Recorded Confirmed Type Allopurinol [Zyloprim] 300 mg PO DAILY 08/07/17 10/02/18 History Apixaban [Eliquis] 5 mg PO BID 08/07/17 10/02/18 History Atorvastatin [Lipitor] 40 mg PO HS 08/07/17 10/02/18 History Finasteride [Proscar] 5 mg PO HS 08/07/17 10/02/18 History Magnesium Oxide [Mag-Ox] 400 mg PO BID 08/07/17 10/02/18 History Omeprazole 20 mg PO DAILY 08/07/17 10/02/18 History Tamsulosin HCl [Flomax] 0.4 mg PO DAILY 08/07/17 10/02/18 History Albuterol Sulfate [Proventil Hfa] 1 - 2 puff INHALATION RT-QID PRN 10/15/1704/14 History Ascorbic Acid [Vitamin C] 500 mg PO DAILY 10/02/18 10/02/18 History Carvedilol [Coreg] 6.25 mg PO BID 10/02/18 10/03/18 History Diazepam [Valium] 5 mg PO DAILY PRN 10/02/18 10/02/18 History Ferrous Gluconate 324 mg PO BID 10/02/18 10/02/18 History Gabapentin 600 mg PO BID@1900,2300 10/02/18 10/02/18 History Hydrocodone/Acetaminophen [Redstone 1 tab PO BID 10/02/18 10/02/18 History 5-325] Levothyroxine Sodium [Synthroid] 112 mcg PO DAILY 10/02/18 10/02/18 History Levothyroxine Sodium [Synthroid] 125 mcg PO DAILY 10/02/18 10/02/18 History Meclizine [Antivert] 12.5 mg PO DAILY PRN 10/02/18 10/02/18 History Nitroglycerin Sl Tabs [Nitrostat] 0.4 mg SUBLINGUAL Q5M PRN 10/02/18 10/02/18 History Ticagrelor [Brilinta] 90 mg PO BID 10/02/18 10/02/18 History Allergies Allergy/AdvReac Type Severity Reaction Status Date / Time cephalexin [From Keflex] Allergy Unknown Verified 10/02/18 10:42 clopidogrel [From Plavix] Allergy Unknown Verified 10/02/18 10:42 Iodine and Iodide Containing Allergy Unknown Verified 10/02/18 10:42 Produc levofloxacin [From Levaquin] Allergy Unknown Verified 10/02/18 10:42 shellfish derived [Shellfish] Allergy Unknown Verified 10/02/18 10:42 solifenacin Allergy Unknown Verified 10/02/18 10:42 codeine AdvReac Nausea & Verified 10/02/18 10:42 Vomiting oxycodone AdvReac Hallucinati Verified 10/02/18 10:42 ons Physical Examination On exam, the patient is resting in bed in no acute distress. The patient is alert and orientated x3. On inspection, there are healed surgical scars on the left knee. The knee is swollen, with no surrounding erythema. No fluctuance. Dorsalis pedis pulse +2 bilaterally. Brisk capillary refill bilaterally. Neurovascular intact of the left lower extremities bilaterally. Patient able to perform active ROM of the left knee, painful on full extension. Patient unable to perform straight leg raise of left leg. Full range of motion of the right knee, foot and ankles bilaterally. Calves are soft and nontender bilaterally. Results Xray left knee: Chronic changes and irregularities of the patella. No acute fractures seen. Implants are in place. - Labs Labs: Abnormal Lab Results - Last 24 Hours (Table) 10/02/18 10/02/18 10/02/18 Range/Units 10:29 10:29 10:29 RBC 3.91 L (4.30-5.90) m/uL Hgb 9.8 L (13.0-17.5) gm/dL Hct 31.6 L (39.0-53.0) % MCHC (31.0-37.0) g/dL RDW 16.4 H (11.5-15.5) % Chloride 108 H (98-107) mmol/L Glucose 115 H (74-99) mg/dL POC Glucose (mg/dL) (75-99) mg/dL Hemoglobin A1c (4.0-6.0) % Iron (65-175) ug/dL Iron Saturation (15.00-50.00) AST 11 L (17-59) U/L ALT 19 L (21-72) U/L Total Creatine Kinase 39 L (55-170) U/L Albumin 3.0 L (3.5-5.0) g/dL HDL Cholesterol (40-60) mg/dL 10/02/18 10/02/18 10/02/18 Range/Units 16:29 16:47 17:00 RBC (4.30-5.90) m/uL Hgb (13.0-17.5) gm/dL Hct (39.0-53.0) % MCHC (31.0-37.0) g/dL RDW (11.5-15.5) % Chloride (98-107) mmol/L Glucose (74-99) mg/dL POC Glucose (mg/dL) 130 H (75-99) mg/dL Hemoglobin A1c 7.3 H (4.0-6.0) % Iron (65-175) ug/dL Iron Saturation (15.00-50.00) AST (17-59) U/L ALT (21-72) U/L Total Creatine Kinase 37 L (55-170) U/L Albumin (3.5-5.0) g/dL HDL Cholesterol (40-60) mg/dL 10/02/18 10/02/18 10/02/18 Range/Units 17:00 20:39 21:46 RBC (4.30-5.90) m/uL Hgb (13.0-17.5) gm/dL Hct (39.0-53.0) % MCHC (31.0-37.0) g/dL RDW (11.5-15.5) % Chloride (98-107) mmol/L Glucose (74-99) mg/dL POC Glucose (mg/dL) 122 H (75-99) mg/dL Hemoglobin A1c (4.0-6.0) % Iron 25 L (65-175) ug/dL Iron Saturation 9.73 L (15.00-50.00) AST (17-59) U/L ALT (21-72) U/L Total Creatine Kinase 36 L (55-170) U/L Albumin (3.5-5.0) g/dL HDL Cholesterol (40-60) mg/dL 10/03/18 10/03/18 10/03/18 Range/Units 05:56 06:23 06:23 RBC 3.71 L (4.30-5.90) m/uL Hgb 9.3 L (13.0-17.5) gm/dL Hct 31.5 L (39.0-53.0) % MCHC 29.5 L (31.0-37.0) g/dL RDW 16.6 H (11.5-15.5) % Chloride 110 H (98-107) mmol/L Glucose 104 H (74-99) mg/dL POC Glucose (mg/dL) 109 H (75-99) mg/dL Hemoglobin A1c (4.0-6.0) % Iron (65-175) ug/dL Iron Saturation (15.00-50.00) AST 11 L (17-59) U/L ALT 14 L (21-72) U/L Total Creatine Kinase (55-170) U/L Albumin 3.0 L (3.5-5.0) g/dL HDL Cholesterol 21 L (40-60) mg/dL H & H 18 10/03/18 Range/Units 10:29 06:23 Hgb 9.8 L 9.3 L (13.0-17.5) gm/dL Hct 31.6 L 31.5 L (39.0-53.0) % Coagulation 10/02/18 Range/Units 10:29 INR 1.0 (<1.2) Result Diagrams: 10/03/18 06:23 10/03/18 06:23 Assessment and Plan Assessment: Left patellar fracture sustained September 2017 Plan: -Patellar fracture was sustained last year and there are no acute fractures seen on xray, implants are in place, and there are no signs of infection of the left knee. Therefore there are no interventions planned for this hospital admission. It is recommended that the patient follow-up with his orthopedic surgeon in [place]. Case was discussed with Dr. Henry -Recommend patient continue to use knee brace and walker or cane for ambulation -Pain management per medicine -Patient may follow-up in our office on an outpatient basis if he continues to have pain from this knee and he remains in the area -Orthopedics will be signing off this patient
--- NOTE | 2018-10-03 10:59 | ECHOF ---
Referral Reason:chest pain MEASUREMENTS -------- HEIGHT: 182.9 cm WEIGHT: 88.9 kg BP: 95/53 RVIDd: 3.4 cm (< 3.3) IVSd: 1.4 cm (0.6 - 1.1) LVIDd: 4.9 cm (3.9 - 5.3) LVPWd: 1.7 cm (0.6 - 1.1) IVSs: 1.7 cm LVIDs: 4.3 cm LVPWs: 1.7 cm LA Diam: 4.7 cm (2.7 - 3.8) Ao Diam: 3.5 cm (2.0 - 3.7) AV Cusp: 1.8 cm (1.5 - 2.6) LA Diam: 4.7 cm (2.7 - 3.8) MV EXCURSION: 19.176 mm (> 18.000) MV EF SLOPE: 81 mm/s (70 - 150) EPSS: 1.1 cm MV E Shamir: 0.62 m/s MV DecT: 296 ms MV A Shamir: 0.87 m/s MV E/A Ratio: 0.72 RAP: 5.00 mmHg RVSP: 29.84 mmHg FINDINGS -------- Sinus rhythm. This was a techncally difficult study with suboptimal views, , Lumason utilized for enhancement of im ages. The left ventricular size is normal. There is moderate concentric left ventricular hypertrophy. O verall left ventricular systolic function is moderately impaired with, an EF between 35 - 40 %. Mid anterior LV wall motion is akinetic. Mid anteroseptal LV wall motion is hypokinetic. Apical an terior LV wall motion is akinetic. Apical lateral LV wall motion is akinetic. Apical septum LV wall motion is akinetic. The right ventricle is normal in size. The left atrium is moderately dilated. The right atrial size is normal. 5.0mg OF Lumason UTLIZED: 2 OR MORE WALL SEGMENTS NOT VISUALIZED. There is mild aortic valve sclerosis. There is no evidence of aortic regurgitation. Mild mitral annular calcification present. Mild mitral regurgitation is present. Mild tricuspid regurgitation present. Right ventricular systolic pressure is normal at < 35 mmHg. The right ventricular systolic pressure, as measured by Doppler, is 29.84mmHg. The pulmonic valve was not well visualized. There is no pulmonic regurgitation present. The aortic root size is normal. There is no pericardial effusion. CONCLUSIONS -------- 1. Sinus rhythm. 2. This was a techncally difficult study with suboptimal views, , Lumason utilized for enhancement of images. 3. The left ventricular size is normal. 4. There is moderate concentric left ventricular hypertrophy. 5. Overall left ventricular systolic function is moderately impaired with, an EF between 35 - 40 %. 6. Mid anterior LV wall motion is akinetic. 7. Mid anteroseptal LV wall motion is hypokinetic. 8. Apical anterior LV wall motion is akinetic. 9. Apical lateral LV wall motion is akinetic. 10. Apical septum LV wall motion is akinetic. 11. The left atrium is moderately dilated. 12. 5.0mg OF Lumason UTLIZED: 2 OR MORE WALL SEGMENTS NOT VISUALIZED. 13. There is mild aortic valve sclerosis. 14. Mild mitral annular calcification present. 15. Mild mitral regurgitation is present. 16. Mild tricuspid regurgitation present. 17. Right ventricular systolic pressure is normal at < 35 mmHg. 18. The pulmonic valve was not well visualized. 19. There is no pulmonic regurgitation present. 20. The aortic root size is normal. 21. There is no pericardial effusion. [employer] REP: Citlali Hahn RDCS
--- NOTE | 2018-10-03 14:19 | P.DS ---
Providers Date of admission: 10/02/18 13:06 Expected date of discharge: 10/03/18 Attending physician: Karoline Mg Consults: 10/02/18 12:50 Consult Physician Urgent Consulting Provider: [facility] Consult Reason/Comments: Unstable angina Do you want consulting provider notified?: Yes 10/02/18 14:14 Consult Physician Routine Consulting Provider: Jona Blount Consult Reason/Comments: left patellar fracture Do you want consulting provider notified?: Yes Primary care physician: Teresa Walter Hospital Course: Discharge diagnosis 1. Chest pain: MN ruled out. Atypical for acute coronary syndrome. Troponins negative 3 sets. EKG sinus bradycardia heart rate 53 and right bundle branch block. Chest x-ray negative. Patient seen evaluated by cardiology. Patient does have cardiac risk factors which include coronary artery disease with previous stent CABG and myocardial infarction. As well as diabetes, hypertension and hyperlipidemia. Echo shows an EF of 35-40% with wall motion abnormality. Cardiology has cleared patient for discharge. And will follow-up with him in the office in one week. They have also discontinued the aspirin. They've decreased the Eliquis to 2.5 milligrams twice a day instead of 5 mg twice a day since patient is on Brilinta. 2. Left patellar fracture after a fall last September: X-ray of knee showing soft tissue swelling. No evidence of fracture. Seen by orthopedics service during this admission. They're recommending that patient follows up with his orthopedic in [place]. However he continues to having pain he can be evaluated by Dr. Blount in the outpatient setting. 3. History of myocardial infarction, coronary disease with previous cardiac stents and CABG. Last stent was December 2017 patient remains on Brilinta 4. History of diabetes mellitus type 2 diet controlled. A1c 7.3. Discussed with patient possibly starting metformin. At this time patient would prefer to continue with watching his diet. He'll follow-up with his crime analyst and his PCP to discuss possibly starting metformin 5. Paroxysmal atrial fibrillation anticoagulated with Eliquis 6. Essential hypertension 7. Hypothyroidism continue Synthroid 8. Hyperlipidemia 9. History of COPD no evidence of exacerbation. 10. Iron deficiency anemia: Hemoglobin 9.8. Iron level low at 25. Continue ferrous sulfate 3 and 25 mg twice a day. Recent colonoscopy last week revealing hemorrhoids per Hospital course This is a 73-year-old male, patient of Dr. Walter. He has a known past medical history of myocardial infarction, coronary artery disease with previous cardiac stents. Last cardiac stents placed in December 2017. Patient also has a history of CABG. History of hypertension, hyperlipidemia, diabetes mellitus type 2 diet -controlled, hypothyroidism, paroxysmal atrial fibrillation anticoagulated with Eliquis. Also history of COPD, former smoker and gallstone pancreatitis. Patient presents to the hospital with complaints of left-sided chest heaviness that radiated down into the left arm. Symptoms started this morning lasting for about 2-3 hours. He also had some shortness of breath. His gave him 4 baby aspirin's. Symptoms did show improvement. EMS was called he received nitro in the ambulance and again had further improvement of his chest discomfort. At this time he is chest pain-free. He denies any diaphoresis nausea or vomiting. Denies any cough or cold-like symptoms. Denies any fever chills or sweats. Denies a bowel movement changes or urinary symptoms. First troponin is negative chest x-ray negative. EKG sinus bradycardia with a heart rate of 53 and a right bundle branch block. Cardiology has been placed on consult. Patient also has a known left patellar fracture. This occurred after a fall last September. However no surgical intervention done due to his heart attack at that time. Patient has significant left knee pain. There is swelling noted. Orthopedics will be placed consult as well. Patient has had previous left total knee arthroplasty with infection and sepsis. That knee was treated with antibiotics and removal of equipment. And had another knee replacement. Patient uses walker to ambulate. Patient does have a hemoglobin of 9.8. He does report there was a positive stool for occult blood outpatient and underwent colonoscopy this past in [place] which was negative. He is on iron supplements. Patient denies any visible blood or black stools. 10/03/2018 patient has been cleared by cardiology and orthopedics for discharge. There is no evidence of myocardial infarction during this admission. Chest pain has resolved. Cardiac workup negative. Troponins negative [address] showing no ST changes. Echo showing an EF of 35-40% with wall motion abnormality. Cardiology has reviewed patient's findings and have cleared him for discharge. As stated above they did decrease the Eliquis to 2.5mg BID since he is on the Brilinta as well. Patient evaluated by orthopedics. He will like to follow-up with him in the outpatient setting. Again discussed the A1c of 7.3. At this time patient does not want to be placed on metformin. He will follow-up with his PCP and crime analyst to discuss further management of his diabetes. Please refer to chart for any further details. I performed an examination of the patient and discussed their management with the physician Tar Worker. I have reviewed the Physician Tar Worker's notes and agree with the documented findings and plan of care Patient Condition at Discharge: Stable Plan - Discharge Summary Discharge Rx Participant: No New Discharge Prescriptions: New Apixaban [Eliquis] 2.5 mg PO BID #60 tab Continue Finasteride [Proscar] 5 mg PO HS Tamsulosin HCl [Flomax] 0.4 mg PO DAILY Atorvastatin [Lipitor] 40 mg PO HS Magnesium Oxide [Mag-Ox] 400 mg PO BID Omeprazole 20 mg PO DAILY Allopurinol [Zyloprim] 300 mg PO DAILY Albuterol Sulfate [Proventil Hfa] 1 - 2 puff INHALATION RT-QID PRN PRN Reason: Shortness Of Breath Diazepam [Valium] 5 mg PO DAILY PRN PRN Reason: Anxiety Hydrocodone/Acetaminophen [Otoe 5-325] 1 tab PO BID Ferrous Gluconate 324 mg PO BID Ticagrelor [Brilinta] 90 mg PO BID Carvedilol [Coreg] 6.25 mg PO BID Ascorbic Acid [Vitamin C] 500 mg PO DAILY Levothyroxine Sodium [Synthroid] 125 mcg PO DAILY Gabapentin 600 mg PO BID@1900,2300 Levothyroxine Sodium [Synthroid] 112 mcg PO DAILY Nitroglycerin Sl Tabs [Nitrostat] 0.4 mg SUBLINGUAL Q5M PRN PRN Reason: Chest Pain Meclizine [Antivert] 12.5 mg PO DAILY PRN PRN Reason: Nausea Discontinued Apixaban [Eliquis] 5 mg PO BID Discharge Medication List Allopurinol [Zyloprim] 300 mg PO DAILY 08/07/17 [History] Atorvastatin [Lipitor] 40 mg PO HS 08/07/17 [History] Finasteride [Proscar] 5 mg PO HS 08/07/17 [History] Magnesium Oxide [Mag-Ox] 400 mg PO BID 08/07/17 [History] Omeprazole 20 mg PO DAILY 08/07/17 [History] Tamsulosin HCl [Flomax] 0.4 mg PO DAILY 08/07/17 [History] Albuterol Sulfate [Proventil Hfa] 1 - 2 puff INHALATION RT-QID PRN 10/15/17 [ History] Ascorbic Acid [Vitamin C] 500 mg PO DAILY 10/02/18 [History] Carvedilol [Coreg] 6.25 mg PO BID 10/02/18 [History] Diazepam [Valium] 5 mg PO DAILY PRN 10/02/18 [History] Ferrous Gluconate 324 mg PO BID 10/02/18 [History] Gabapentin 600 mg PO BID@1900,2300 10/02/18 [History] Hydrocodone/Acetaminophen [Otoe 5-325] 1 tab PO BID 10/02/18 [History] Levothyroxine Sodium [Synthroid] 112 mcg PO DAILY 10/02/18 [History] Levothyroxine Sodium [Synthroid] 125 mcg PO DAILY 10/02/18 [History] Meclizine [Antivert] 12.5 mg PO DAILY PRN 10/02/18 [History] Nitroglycerin Sl Tabs [Nitrostat] 0.4 mg SUBLINGUAL Q5M PRN 10/02/18 [History] Ticagrelor [Brilinta] 90 mg PO BID 10/02/18 [History] Apixaban [Eliquis] 2.5 mg PO BID #60 tab 10/03/18 [Rx] Follow up Appointment(s)/Referral(s): Teresa Walter MD [Primary Care Provider] - 10/10/18 10:15 am Reji Mac MD [STAFF PHYSICIAN] - 10/14/18 2:15 pm Dru Maria DO [Doctor of Osteopathic Medicine] - As Needed (Follow up with Dr. Dru Maria after discharge or your orthopaedic surgeon in [place].) Patient Instructions/Handouts: Chest Pain (DC) Activity/Diet/Wound Care/Special Instructions: diet: cardiac Activity: as tolerated Discharge Disposition: HOME SELF-CARE
[2018-10-03 15:19] VITALS: BP 119/59; PULSE 56; TEMP 97.1
== END 2018-10-03 15:28 | disposition home or self-care (01) ==
LOC: EC 10:10 → 3SCARD 13:06
PROVIDERS: ADMIT Internal Medicine; ATTEND Internal Medicine
DX: R07.89 Other chest pain (principal); I25.10 Atherosclerotic heart disease of native coronary artery without angina pectoris; I25.2 Old myocardial infarction; I10 Essential (primary) hypertension; E78.5 Hyperlipidemia, unspecified; E11.9 Type 2 diabetes mellitus without complications; M25.462 Effusion, left knee; I48.0 Paroxysmal atrial fibrillation; E03.9 Hypothyroidism, unspecified; Z79.890 Hormone replacement therapy; J44.9 Chronic obstructive pulmonary disease, unspecified; D50.9 Iron deficiency anemia, unspecified; K64.9 Unspecified hemorrhoids; Z87.891 Personal history of nicotine dependence; Z95.5 Presence of coronary angioplasty implant and graft; Z95.1 Presence of aortocoronary bypass graft; Z90.49 Acquired absence of other specified parts of digestive tract; Z79.899 Other long term (current) drug therapy; Z79.02 Long term (current) use of antithrombotics/antiplatelets; Z79.01 Long term (current) use of anticoagulants; Z88.1 Allergy status to other antibiotic agents; Z88.5 Allergy status to narcotic agent; Z91.013 Allergy to seafood; Z88.8 Allergy status to other drugs, medicaments and biological substances; Z91.048 Other nonmedicinal substance allergy status; Z82.3 Family history of stroke; Z91.81 History of falling
CPT/HCPCS: 99285; 36415; 93005; 80061; 80053 ×2; 82728; 82550; 82553; 83540; 83550; 83735; 84484; 85025 ×2; 85610; 85730; 83036; 73564; 71046; G0378 ×2; C8929; S0138; Q9950; 93306

== ENCOUNTER → 2018-11-04 | Outpatient (CLI) | payer MEDICARE ==
[2018-11-04 13:01] LABS: Anisocytosis Slight; Basophils # (A) 0.1 k/uL (0-0.2); Basophils % (A) 1 %; Eosinophils # (A) 0.7 k/uL (0-0.7); Eosinophils % (A) 6 %; HCT 35.3 % (39.0-53.0); HGB 10.9 gm/dL (13.0-17.5); Hypochromasia Moderate; Lymphocytes # (A) 1.6 k/uL (1.0-4.8); Lymphocytes % (A) 14 %; MCH 25.8 pg (25.0-35.0); MCHC 30.9 g/dL (31.0-37.0); MCV 83.4 fL (80.0-100.0); Mean Platelet Volume 7.1; Monocytes # (A) 0.7 k/uL (0-1.0); Monocytes % (A) 6 %; Neutrophils # (A) 7.8 k/uL (1.3-7.7); Neutrophils % (A) 71 %; Platelet Count 236 k/uL (150-450); RBC 4.23 m/uL (4.30-5.90); RDW 16.9 % (11.5-15.5)
[2018-11-04 15:30] LABS: Erythrocyte Sedimentation Rate 55 mm/hr (0-15)
== END | disposition home or self-care (01) ==
LOC: LABWHC1 11:22
PROVIDERS: ATTEND Orthopaedic Surgery
DX: T84.54XA Infection and inflammatory reaction due to internal left knee prosthesis, initial encounter (principal)
CPT/HCPCS: 36415; 85025; 85652; 86141

== ENCOUNTER → 2018-11-05 | Outpatient (CLI) | payer MEDICARE ==
--- NOTE | 2018-11-05 12:13 | NM ---
EXAMINATION TYPE: NM bone 3 phase DATE OF EXAM: 11/05/2018 COMPARISON: Left knee radiographs dated 10/02/2018 HISTORY: Mechanical loosening of the left knee Triple phase bone scintigraphy was performed following the injection of 25.2 mCi Tc 99m MDP. Immedia te images and 3 hours post injection images acquired. FINDINGS: There is asymmetric abnormal left periarticular/periprosthetic flow to the left knee, abnormal accumu lation on blood pool imaging, an abnormal focal accumulation on delayed imaging. Central photopenia i s seen from the left knee arthroplasty. IMPRESSION: Abnormal 3 phase bone scan with left knee periprosthetic uptake on all 3 phases relating to either as eptic or septic loosening.
== END | disposition home or self-care (01) ==
LOC: RADNMMAIN 07:31
PROVIDERS: ATTEND Orthopaedic Surgery
DX: T84.033A Mechanical loosening of internal left knee prosthetic joint, initial encounter (principal); T84.54XA Infection and inflammatory reaction due to internal left knee prosthesis, initial encounter
CPT/HCPCS: 78315; A9503

== ENCOUNTER 2019-11-07 13:22 | Inpatient (IN) | payer MEDICARE ==
--- NOTE | 2019-11-07 13:49 | ED ---
General Adult HPI - General Chief complaint: Weakness Stated complaint: Weakness/high cbg Time Seen by Provider: 11/07/19 13:36 Source: patient, family, RN notes reviewed, old records reviewed Mode of arrival: ambulatory Limitations: no limitations - History of Present Illness Initial comments: 74-year-old male presents for evaluation of generalized weakness, elevated blood sugar. Patient was recently treated with steroids for URI symptoms. He states his blood sugar has been running high. He is also felt generally weak and fatigued. Over the past 3 days he has developed left arm weakness and some numbness. This is been present for at least 3 days. Denies significant headache. Denies weakness in the left leg. No previous history of CVA or TIA. He does have history of coronary artery disease status post CABG and stenting. He is currently on Eliquis. No central chest pain, no dyspnea. - Related Data Home Medications Medication Instructions Recorded Confirmed Allopurinol [Zyloprim] 300 mg PO DAILY 08/07/17 10/02/18 Atorvastatin [Lipitor] 40 mg PO HS 08/07/17 10/02/18 Finasteride [Proscar] 5 mg PO HS 08/07/17 10/02/18 Magnesium Oxide [Mag-Ox] 400 mg PO BID 08/07/17 10/02/18 Omeprazole 20 mg PO DAILY 08/07/17 10/02/18 Tamsulosin HCl [Flomax] 0.4 mg PO DAILY 08/07/17 10/02/18 Albuterol Sulfate [Proventil Hfa] 1 - 2 puff INHALATION RT-QID PRN 10/15/17 10/02/18 Ascorbic Acid [Vitamin C] 500 mg PO DAILY 10/02/18 10/02/18 Carvedilol [Coreg] 6.25 mg PO BID 10/02/18 10/03/18 Diazepam [Valium] 5 mg PO DAILY PRN 10/02/18 10/02/18 Ferrous Gluconate 324 mg PO BID 10/02/18 10/02/18 Gabapentin 600 mg PO BID@1900,2300 10/02/18 10/02/18 Hydrocodone/Acetaminophen [[place] 1 tab PO BID 10/02/18 10/02/18 5-325] Levothyroxine Sodium [Synthroid] 112 mcg PO DAILY 10/02/18 10/02/18 Levothyroxine Sodium [Synthroid] 125 mcg PO DAILY 10/02/18 10/02/18 Meclizine [Antivert] 12.5 mg PO DAILY PRN 10/02/18 10/02/18 Nitroglycerin Sl Tabs [Nitrostat] 0.4 mg SUBLINGUAL Q5M PRN 10/02/18 10/02/18 Ticagrelor [Brilinta] 90 mg PO BID 10/02/18 10/02/18 Previous Rx's Medication Instructions Recorded Apixaban [Eliquis] 2.5 mg PO BID #60 tab 10/03/18 Allergies Allergy/AdvReac Type Severity Reaction Status Date / Time cephalexin [From Keflex] Allergy Unknown Verified 10/02/18 10:42 clopidogrel [From Plavix] Allergy Unknown Verified 10/02/18 10:42 Iodine and Iodide Containing Allergy Unknown Verified 10/02/18 10:42 Produc levofloxacin [From Levaquin] Allergy Unknown Verified 10/02/18 10:42 shellfish derived [Shellfish] Allergy Unknown Verified 10/02/18 10:42 solifenacin Allergy Unknown Verified 10/02/18 10:42 codeine AdvReac Nausea & Verified 10/02/18 10:42 Vomiting oxycodone AdvReac Hallucinati Verified 10/02/18 10:42 ons Review of Systems ROS Statement: Those systems with pertinent positive or pertinent negative responses have been documented in the HPI. ROS Other: All systems not noted in ROS Statement are negative. Past Medical History Past Medical History: Atrial Fibrillation, Asthma, Coronary Artery Disease (CAD), COPD, Diabetes Mellitus, Hypertension, Myocardial Infarction ([place]), Pneumonia Additional Past Medical History / Comment(s): left knee cap broken, pancreatitis, /gallstones(sx done). 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 unable to verify date Last Myocardial Infarction Date:: 2017 History of Any Multi-Drug Resistant Organisms: None Reported Past Surgical History: Cholecystectomy, Coronary Bypass/CABG, Heart Catheterization With Stent, Hernia Repair, Orthopedic Surgery Additional Past Surgical History / Comment(s): tooth extractions, lt knee repla cement(total of 3 sx), colonoscopy, picc line-since removed Past Anesthesia/Blood Transfusion Reactions: No Reported Reaction Date of Last Stent Placement:: 10/2015 Past Psychological History: No Psychological Hx Reported Smoking Status: Former smoker - Past Family History Father Family Medical History: Diabetes Mellitus Mother Family Medical History: CVA/TIA, Hypertension General Exam Limitations: no limitations General appearance: alert, in no apparent distress Head exam: Present: atraumatic, normocephalic Eye exam: Present: normal appearance, PERRL ENT exam: Present: mucous membranes dry Neck exam: Present: normal inspection. Absent: tenderness, meningismus Respiratory exam: Present: normal lung sounds bilaterally. Absent: respiratory distress, wheezes Cardiovascular Exam: Present: regular rate, normal rhythm GI/Abdominal exam: Present: soft. Absent: distended, tenderness, guarding Extremities exam: Present: normal inspection, normal capillary refill, other (Bilateral radial pulses 2+) Neurological exam: Present: alert, oriented X3 (NIH is 1, strength 5 out of 5 in the left upper extremity, decreased instrument specialist strength in the left upper extremity, drift in the left lower extremity), CN II-XII intact, motor sensory deficit (Slight drift in the left lower extremity) Psychiatric exam: Present: normal affect, normal mood Skin exam: Present: warm, dry, intact. Absent: cyanosis, diaphoretic Course Vital Signs 11/07/19 11/07/19 13:25 14:35 Temperature 98.4 F Pulse Rate 60 60 Respiratory 18 18 Rate Blood Pressure 130/82 115/73 O2 Sat by Pulse 96 95 Oximetry EKG Findings - EKG Comments: EKG Findings:: EKG: Sinus bradycardia, occasional PVC, right bundle branch block, left anterior fascicular block consistent with a bifascicular block, no ST segment elevation. Rate of 58, ID interval 192, QRS duration 170, QTC 437 similar compared to previous EKG September 2018. Medical Decision Making - Medical Decision Making 74-year-old male presenting with 3 days of left-sided weakness. He has a drift in the left lower extremity and decreased instrument specialist strength in the left upper extremity. No facial droop. No dysarthria. NIH is 1. Symptoms have been present for [address] is negative for skull hemorrhage or mass effect. Patient is anticoagulated with history of atrial fibrillation. Chest x-ray negative for any acute cardiopulmonary disease. He has a CBC which is within normal limits. Sodium 134 likely secondary to cervical hyponatremia. Glucose elevated at 532 which is down trending with IV fluids and IV insulin. Patient will be admitted for further stroke evaluation, neurology placed on consult. Case is discussed with the admitting physician Dr. Mg. - Lab Data Result diagrams: 11/07/19 13:35 11/07/19 13:35 Lab Results 11/07/19 11/07/19 11/07/19 Range/Units 13:35 13:35 13:35 WBC 8.9 (3.8-10.6) k/uL RBC 4.73 (4.30-5.90) m/uL Hgb 14.0 (13.0-17.5) gm/dL Hct 43.6 (39.0-53.0) % MCV 92.1 D (80.0-100.0) fL MCH 29.6 (25.0-35.0) pg MCHC 32.1 (31.0-37.0) g/dL RDW 13.6 (11.5-15.5) % Plt Count 166 (150-450) k/uL Neutrophils % 74 % Lymphocytes % 11 % Monocytes % 8 % Eosinophils % 4 % Basophils % 2 % Neutrophils # 6.6 (1.3-7.7) k/uL Lymphocytes # 1.0 (1.0-4.8) k/uL Monocytes # 0.8 (0-1.0) k/uL Eosinophils # 0.4 (0-0.7) k/uL Basophils # 0.1 (0-0.2) k/uL PT (9.0-12.0) sec INR (<1.2) APTT (22.0-30.0) sec Sodium 132 L (137-145) mmol/L Potassium 4.8 (3.5-5.1) mmol/L Chloride 101 (98-107) mmol/L Carbon Dioxide 25 (22-30) mmol/L Anion Gap 6 mmol/L BUN 23 H (9-20) mg/dL Creatinine 1.06 (0.66-1.25) mg/dL Est GFR (CKD-EPI)AfAm 80 (>60 ml/min/1.73 sqM) Est GFR (CKD-EPI)NonAf 69 (>60 ml/min/1.73 sqM) Glucose 348 H (74-99) mg/dL POC Glucose (mg/dL) (75-99) mg/dL POC Glu Residential Appliance Repair Technician ID Plasma Lactic Acid Gideon 1.7 (0.7-2.0) mmol/L Calcium 8.4 (8.4-10.2) mg/dL Magnesium 1.7 (1.6-2.3) mg/dL Total Bilirubin 0.9 (0.2-1.3) mg/dL AST 15 L (17-59) U/L ALT 8 (4-49) U/L Alkaline Phosphatase 91 (38-126) U/L Troponin I (0.000-0.034) ng/mL NT-Pro-B Natriuret Pep pg/mL Total Protein 6.1 L (6.3-8.2) g/dL Albumin 3.2 L (3.5-5.0) g/dL Urine Color Urine Appearance (Clear) Urine pH (5.0-8.0) Ur Specific [place] (1.001-1.035) Urine Protein (Negative) Urine Glucose (UA) (Negative) Urine Ketones (Negative) Urine Blood (Negative) Urine Nitrite (Negative) Urine Bilirubin (Negative) Urine Urobilinogen (<2.0) mg/dL Ur Leukocyte Esterase (Negative) 11/07/19 11/07/19 11/07/19 Range/Units 13:35 13:35 13:35 WBC (3.8-10.6) k/uL RBC (4.30-5.90) m/uL Hgb (13.0-17.5) gm/dL Hct (39.0-53.0) % MCV (80.0-100.0) fL MCH (25.0-35.0) pg MCHC (31.0-37.0) g/dL RDW (11.5-15.5) % Plt Count (150-450) k/uL Neutrophils % % Lymphocytes % % Monocytes % % Eosinophils % % Basophils % % Neutrophils # (1.3-7.7) k/uL Lymphocytes # (1.0-4.8) k/uL Monocytes # (0-1.0) k/uL Eosinophils # (0-0.7) k/uL Basophils # (0-0.2) k/uL PT 10.2 (9.0-12.0) sec INR 0.9 (<1.2) APTT 29.1 (22.0-30.0) sec Sodium (137-145) mmol/L Potassium (3.5-5.1) mmol/L Chloride (98-107) mmol/L Carbon Dioxide (22-30) mmol/L Anion Gap mmol/L BUN (9-20) mg/dL Creatinine (0.66-1.25) mg/dL Est GFR (CKD-EPI)AfAm (>60 ml/min/1.73 sqM) Est GFR (CKD-EPI)NonAf (>60 ml/min/1.73 sqM) Glucose (74-99) mg/dL POC Glucose (mg/dL) (75-99) mg/dL POC Glu Residential Appliance Repair Technician ID Plasma Lactic Acid Gideon (0.7-2.0) mmol/L Calcium (8.4-10.2) mg/dL Magnesium (1.6-2.3) mg/dL Total Bilirubin (0.2-1.3) mg/dL AST (17-59) U/L ALT (4-49) U/L Alkaline Phosphatase (38-126) U/L Troponin I <0.012 (0.000-0.034) ng/mL NT-Pro-B Natriuret Pep 999 pg/mL Total Protein (6.3-8.2) g/dL Albumin (3.5-5.0) g/dL Urine Color Urine Appearance (Clear) Urine pH (5.0-8.0) Ur Specific [place] (1.001-1.035) Urine Protein (Negative) Urine Glucose (UA) (Negative) Urine Ketones (Negative) Urine Blood (Negative) Urine Nitrite (Negative) Urine Bilirubin (Negative) Urine Urobilinogen (<2.0) mg/dL Ur Leukocyte Esterase (Negative) 11/07/19 11/07/19 11/07/19 Range/Units 13:50 14:40 15:09 WBC (3.8-10.6) k/uL RBC (4.30-5.90) m/uL Hgb (13.0-17.5) gm/dL Hct (39.0-53.0) % MCV (80.0-100.0) fL MCH (25.0-35.0) pg MCHC (31.0-37.0) g/dL RDW (11.5-15.5) % Plt Count (150-450) k/uL Neutrophils % % Lymphocytes % % Monocytes % % Eosinophils % % Basophils % % Neutrophils # (1.3-7.7) k/uL Lymphocytes # (1.0-4.8) k/uL Monocytes # (0-1.0) k/uL Eosinophils # (0-0.7) k/uL Basophils # (0-0.2) k/uL PT (9.0-12.0) sec INR (<1.2) APTT (22.0-30.0) sec Sodium (137-145) mmol/L Potassium (3.5-5.1) mmol/L Chloride (98-107) mmol/L Carbon Dioxide (22-30) mmol/L Anion Gap mmol/L BUN (9-20) mg/dL Creatinine (0.66-1.25) mg/dL Est GFR (CKD-EPI)AfAm (>60 ml/min/1.73 sqM) Est GFR (CKD-EPI)NonAf (>60 ml/min/1.73 sqM) Glucose (74-99) mg/dL POC Glucose (mg/dL) 344 H 370 H (75-99) mg/dL POC Glu Residential Appliance Repair Technician Rosa Elena Rea Joanna Plasma Lactic Acid Gideon (0.7-2.0) mmol/L Calcium (8.4-10.2) mg/dL Magnesium (1.6-2.3) mg/dL Total Bilirubin (0.2-1.3) mg/dL AST (17-59) U/L ALT (4-49) U/L Alkaline Phosphatase (38-126) U/L Troponin I (0.000-0.034) ng/mL NT-Pro-B Natriuret Pep pg/mL Total Protein (6.3-8.2) g/dL Albumin (3.5-5.0) g/dL Urine Color Yellow Urine Appearance Clear (Clear) Urine pH 5.5 (5.0-8.0) Ur Specific [place] 1.013 (1.001-1.035) Urine Protein Negative (Negative) Urine Glucose (UA) 4+ H (Negative) Urine Ketones Negative (Negative) Urine Blood Negative (Negative) Urine Nitrite Negative (Negative) Urine Bilirubin Negative (Negative) Urine Urobilinogen <2.0 (<2.0) mg/dL Ur Leukocyte Esterase Negative (Negative) Disposition Clinical Impression: Dehydration, CVA (cerebral vascular accident), Hyperglycemia Disposition: ADMITTED IP TO THIS HOSP Condition: Stable Is patient prescribed a controlled substance at d/c from ED?: No Referrals: Teresa Walter MD [Primary Care Provider] - 1-2 days Decision to Admit Reason: Admit from EC Decision Date: 11/07/19 Decision Time: 15:50
[2019-11-07 13:52] LABS: Glucose,Whole Blood 344 mg/dL (75-99)
[2019-11-07 14:26] LABS: Basophils # (A) 0.1 k/uL (0-0.2); Basophils % (A) 2 %; Eosinophils # (A) 0.4 k/uL (0-0.7); Eosinophils % (A) 4 %; HCT 43.6 % (39.0-53.0); Lymphocytes % (A) 11 %; MCH 29.6 pg (25.0-35.0); MCHC 32.1 g/dL (31.0-37.0); Mean Platelet Volume 8.4; Monocytes # (A) 0.8 k/uL (0-1.0); Monocytes % (A) 8 %; Neutrophils # (A) 6.6 k/uL (1.3-7.7); Neutrophils % (A) 74 %; Platelet Count 166 k/uL (150-450); RBC 4.73 m/uL (4.30-5.90); RDW 13.6 % (11.5-15.5); WBC 8.9 k/uL (3.8-10.6)
--- NOTE | 2019-11-07 14:27 | CT ---
EXAMINATION TYPE: CT brain wo con DATE OF EXAM: 11/07/2019 COMPARISON: HISTORY: left side weakness CT DLP: 1084.4 mGycm Automated exposure control for dose reduction was used. None there is diffuse cerebral cortical atrophy. There is no mass effect nor midline shift. There is no sign of intracranial hemorrhage. Calvarium is intact. Skull base appears intact. IMPRESSION: Cerebral atrophy. No acute intracranial abnormality.
--- NOTE | 2019-11-07 14:30 | XR ---
EXAMINATION TYPE: XR chest 2V DATE OF EXAM: 11/07/2019 COMPARISON: 10/02/2018 HISTORY: Chest pain TECHNIQUE: FINDINGS: There is no heart failure nor confluent pneumonic infiltrate. There are sternal wires. Ther e are chest leads. Costophrenic angles are clear. There is 20% anterior wedging of T7 vertebra unchan ged. IMPRESSION: No active cardiopulmonary disease. Mild cardiomegaly. No significant change.
[2019-11-07 14:32] LABS: MCV 92.1 fL (80.0-100.0)
[2019-11-07 14:36] LABS: Albumin 3.2 g/dL (3.5-5.0); Calcium 8.4 mg/dL (8.4-10.2); Magnesium 1.7 mg/dL (1.6-2.3); Potassium 4.8 mmol/L (3.5-5.1); Total Bilirubin 0.9 mg/dL (0.2-1.3); Total Protein 6.1 g/dL (6.3-8.2)
[2019-11-07 14:39] LABS: INR 0.9 (<1.2); Partial Thromboplastin Time 29.1 sec (22.0-30.0); Prothrombin Time 10.2 sec (9.0-12.0)
[2019-11-07] MEDS ORDERED: INSULIN REGULAR 100 UNIT/ML VIAL IV ONE (15:05)
[2019-11-07 15:11] LABS: Glucose,Whole Blood 370 mg/dL (75-99)
[2019-11-07] MEDS ORDERED: ASPIRIN 325 MG TAB PO STA (15:13)
[2019-11-07 15:35] LABS: Appearance,Urine Clear (Clear); Bilirubin,Urine Negative (Negative); Blood,Urine Negative (Negative); Color,Urine Yellow; Glucose,Urine (UA) 4+ (Negative); Ketones,Urine Negative (Negative); Leukocyte Esterase,Urine Negative (Negative); Nitrite,Urine Negative (Negative); PH, Urine 5.5 (5.0-8.0); Protein,Urine Negative (Negative); Specific Gravity,Urine 1.013 (1.001-1.035); Urobilinogen,Urine <2.0 mg/dL (<2.0)
[2019-11-07 15:47] LABS: Glucose,Whole Blood 280 mg/dL (75-99)
[2019-11-07 20:02] LABS: Glucose,Whole Blood 232 mg/dL (75-99)
[2019-11-07] MEDS ORDERED: GABAPENTIN 400 MG CAP PO SCH (22:45)
[2019-11-07] MEDS ORDERED: DIAZEPAM 5 MG TAB PO PRN (23:00)
[2019-11-07] MEDS ORDERED: NITROGLYCERIN SL TABS 0.4 MG TAB SUBLINGUAL PRN (23:00)
[2019-11-07] MEDS ORDERED: HYDROcodone/APAP 7.5-325MG 1 EACH TAB PO PRN (23:00)
[2019-11-08 06:22] LABS: Cholesterol 104 mg/dL (<200); HDL Cholesterol 31 mg/dL (40-60); LDL Cholesterol,Calculated 43 mg/dL (0-99); Triglycerides 148 mg/dL (<150)
[2019-11-08 06:26] LABS: Glucose,Whole Blood 212 mg/dL (75-99)
[2019-11-08] MEDS: LEVOTHYROXINE 125 MCG TAB PO SCH (06:38)
[2019-11-08] MEDS: CARVEDILOL 12.5 MG TAB PO SCH ×2 (06:38→16:18)
[2019-11-08] MEDS: LEVOTHYROXINE 112 MCG TAB PO SCH (06:39)
[2019-11-08] MEDS: SYMBICORT 80-4.5 MCG INHALER INHALATION SCH ×2 (07:33→20:44)
[2019-11-08] MEDS ORDERED: ACETAMINOPHEN TAB 325 MG TAB PO PRN (08:25)
[2019-11-08] MEDS: APIXABAN 5 MG TAB PO SCH ×2 (08:34→22:37)
[2019-11-08] MEDS: MAGNESIUM OXIDE 400 MG TAB PO SCH ×2 (08:34→22:37)
[2019-11-08] MEDS: ALLOPURINOL 300 MG TAB PO SCH (08:34)
[2019-11-08] MEDS ORDERED: MECLIZINE 12.5 MG TAB PO PRN (09:00)
[2019-11-08 11:36] LABS: Glucose,Whole Blood 303 mg/dL (75-99)
[2019-11-08] MEDS: INSULIN ASPART (NovoLOG) 100 UNIT/ML VIAL SQ SCH ×3 (11:56→22:37)
[2019-11-08 12:33] VITALS: BMI 32.7
--- NOTE | 2019-11-08 12:33 | XR ---
EXAMINATION TYPE: XR wrist complete LT , 4 VIEWS DATE OF EXAM ORDERED: 11/08/2019 HISTORY: left wrist pain. COMPARISON: None. FINDINGS: IV tubing projects over the wrist. No fracture, dislocation or other acute osseous lesion is seen. No significant degenerative changes s een. IMPRESSION: NO ACUTE OSSEOUS LESION.
--- NOTE | 2019-11-08 16:17 | P.HPIM ---
History of Present Illness H&P Date: 11/08/19 Patrick Banuelos is a 74-year-old male patient of Dr. Walter who presented to [facility] emergency room with multiple complaints including generalized weakness, elevated glucose level, left sided weakness involving the left upper extremity, recent upper respiratory infection with cough. He was evaluated in the emergency room by Dr. Ferrer and was admitted to telemetry floor for further evaluation of left upper extremity weakness, rule out cerebrovascular accident. Patient has a prolonged past medical history including known history of atrial fibrillation, patient is maintained on Eliquis he states that he has been taking medication regularly and denies missing any doses recently, patient also has a known history of coronary artery disease with previous history of angioplasty and stent placement he also has a known history of diabetes mellitus, history of peripheral neuropathy, history of gout, history of hypothyroidism, history of hyperlipidemia and history of hypertension. After being admitted to the floor patient stated that he was having pain in his left wrist area he denies any recent injury or fall x-ray of the left wrist was ordered uric acid level was ordered. Past Medical History Past Medical History: Atrial Fibrillation, Asthma, Coronary Artery Disease (CAD), COPD, Diabetes Mellitus, Hypertension, Myocardial Infarction ([place]), Pneumonia Additional Past Medical History / Comment(s): left knee cap broken, pancreatitis, /gallstones(sx done). no longer takes meds for dm, x2 mi's(1991 ans 2017), pt stated utd on pne vaccine radio script writer unable to verify date Last Myocardial Infarction Date:: 2018 History of Any Multi-Drug Resistant Organisms: None Reported Past Surgical History: Cholecystectomy, Coronary Bypass/CABG, Heart Catheterization With Stent, Hernia Repair, Orthopedic Surgery Additional Past Surgical History / Comment(s): tooth extractions, lt knee replacement(total of 3 sx), colonoscopy, picc line-since removed Past Anesthesia/Blood Transfusion Reactions: No Reported Reaction Date of Last Stent Placement:: 10/2015 Past Psychological History: No Psychological Hx Reported Smoking Status: Former smoker Past Alcohol Use History: Occasional Additional Past Alcohol Use History / Comment(s): started smoking as teen and quit 1982 smoked 2 ppd. Past Drug Use History: None Reported - Past Family History Father Family Medical History: Diabetes Mellitus Mother Family Medical History: CVA/TIA, Hypertension Medications and Allergies Home Medications Medication Instructions Recorded Confirmed Type Allopurinol [Zyloprim] 300 mg PO DAILY 08/07/17 11/07/19 History Atorvastatin [Lipitor] 40 mg PO HS 08/07/17 11/07/19 History Magnesium Oxide [Mag-Ox] 400 mg PO BID 08/07/17 11/07/19 History Albuterol Sulfate [Proventil Hfa] 1 - 2 puff INHALATION RT-QID PRN 10/15/17 11/07/19 History Carvedilol [Coreg] 6.25 mg PO BID 10/02/18 11/07/19 History Diazepam [Valium] 5 mg PO DAILY PRN 10/02/18 11/07/19 History Gabapentin 600 mg PO BID@1600,2200 10/02/18 11/07/19 History Levothyroxine Sodium [Synthroid] 112 mcg PO DAILY 10/02/18 11/07/19 History Levothyroxine Sodium [Synthroid] 125 mcg PO DAILY 10/02/18 11/07/19 History Meclizine [Antivert] 12.5 mg PO DAILY PRN 10/02/18 11/07/19 History Nitroglycerin Sl Tabs [Nitrostat] 0.4 mg SUBLINGUAL Q5M PRN 10/02/18 11/07/19 History Apixaban [Eliquis] 5 mg PO BID 11/07/19 11/07/19 History Budesonide/Formoterol Fumarate 1 puff INHALATION RT-BID 11/07/19 11/07/19 History [Symbicort 80-4.5 Mcg Inhaler] Hydrocodone/Acetaminophen [[place] 1 tab PO Q12H PRN 11/07/19 11/07/19 History 7.5-325] Allergies Allergy/AdvReac Type Severity Reaction Status Date / Time cephalexin [From Keflex] Allergy Unknown Verified 11/07/19 16:37 clopidogrel [From Plavix] Allergy Unknown Verified 11/07/19 16:37 Iodine and Iodide Containing Allergy Unknown Verified 11/07/19 16:37 Produc levofloxacin [From Levaquin] Allergy Unknown Verified 11/07/19 16:37 shellfish derived [Shellfish] Allergy Unknown Verified 11/07/19 16:37 solifenacin Allergy Unknown Verified 11/07/19 16:37 codeine AdvReac Nausea & Verified 11/07/19 16:37 Vomiting oxycodone AdvReac Hallucinati Verified 11/07/19 16:37 ons Physical Exam Vitals: Vital Signs Temp Pulse Pulse Resp BP BP Pulse Ox 11/08/19 15:45 97 F L 64 18 134/78 93 L 11/08/19 11:28 97.7 F 64 18 113/72 91 L 11/08/19 08:00 98.1 F 64 18 126/74 93 L 11/08/19 03:53 82 18 11/07/19 20:00 82 18 117/74 11/07/19 18:46 97.8 F 94 18 123/66 94 L 11/07/19 16:48 97.9 F 62 18 107/72 97 Intake and Output 11/08/19 11/08/19 11/08/19 06:59 14:59 22:59 Intake Total 360 Output Total 600 200 Balance -600 360 -200 Intake: Oral 360 Output: Urine 600 200 Other: # Voids 1 1 # Bowel Movements 0 Weight 112.491 kg 112.491 kg In general patient is alert and oriented 3 in no apparent distress HEENT head normocephalic and atraumatic Neck is supple no JVD no goiter no lymphadenopathy Chest exam reveals a few scattered rhonchi bilaterally no wheezing Cardiac exam reveals irregular heart sounds S1 and S2 no gallops no murmurs Abdomen is soft nontender no organomegaly with normal bowel sounds Extremity exam reveals no edema no cyanosis or clubbing Neurological examination Mental status patient is alert and oriented 3, speech is fluent Cranial nerve II-12 are intact Motor exam at this time reveals minimal weakness in the left hand tuna purse seiner as compared to the right otherwise no focal motor deficit Results CBC & Chem 7: 11/07/19 13:35 11/07/19 13:35 Labs: Abnormal Lab Results - Last 24 Hours (Table) 11/07/19 11/08/19 11/08/19 Range/Units 20:01 05:31 06:24 POC Glucose (mg/dL) 232 H 212 H (75-99) mg/dL HDL Cholesterol 31 L (40-60) mg/dL 11/08/19 Range/Units 11:27 POC Glucose (mg/dL) 303 H (75-99) mg/dL HDL Cholesterol (40-60) mg/dL Thrombosis Risk Factor Assmnt - Choose All That Apply Any of the Below Risk Factors Present?: Yes Each Factor Represents 1 point: Abnormal pulmonary function (COPD) Each Risk Factor Represents 3 Points: Age 75 years or older Thrombosis Risk Factor Assessment Total Risk Factor Score: 4 Thrombosis Risk Factor Assessment Level: Moderate Risk Assessment and Plan Plan: #1 left upper extremity weakness, without any other focal neurological deficit, it is unclear whether this is related to neurological deficit versus wrist pain causing weakness in the left hand tuna purse seiner, computed tomography scan of the brain and neurology consult were requested, echocardiogram and carotid Doppler were ordered, cardiology consultation was requested. #2 underlying history of atrial fibrillation maintained on ELIQUIS, patient denies missing any doses recently medication was restarted on admission. #3 underlying history of coronary artery disease with history of angioplasty and stent placement 4 in the past and history of coronary artery bypass graft surgery, cardiology consultation was requested #4 underlying history of hypertension #5 underlying history of hypothyroidism #6 underlying history of hyperlipidemia #7 underlying history of peripheral neuropathy #8 hyperglycemia on presentation may be related to recent steroid use for upper respiratory infection, patient is not on any medication for diabetes, will check hemoglobin A1c #9 underlying history of gout with check uric acid level patient is maintained on allopurinol
[2019-11-08] MEDS: GABAPENTIN 400 MG CAP PO SCH ×2 (16:18→22:37)
--- NOTE | 2019-11-08 16:47 | US ---
EXAMINATION TYPE: US carotid duplex BILAT DATE OF EXAM: 11/08/2019 COMPARISON: NONE CLINICAL HISTORY: cva. Left arm weakness today EXAM MEASUREMENTS: RIGHT: Peak Systolic Velocity (PSV) cm/sec ----- Right CCA: 60.7 ----- Right ICA: 54.0 ----- Right ECA: 63.3 ICA/CCA ratio: 0.9 RIGHT: End Diastole cm/sec ----- Right CCA: 14.1 ----- Right ICA: 17.4 ----- Right ECA: 0.0 LEFT: Peak Systolic Velocity (PSV) cm/sec ----- Left CCA: 50.5 ----- Left ICA: 51.2 ----- Left ECA: 93.4 ICA/CCA ratio: 1.0 LEFT: End Diastole cm/sec ----- Left CCA: 10.4 ----- Left ICA: 18.4 ----- Left ECA: 0.0 VERTEBRALS (direction of flow): Right Vertebral: Antegrade Left Vertebral: Antegrade Rhythm: Normal Mild to moderate intimal wall changes are noted at bilateral carotid bifurcation, but PSV is wnl bila terally. IMPRESSION: There is antegrade flow in the vertebral arteries. The images and measurements suggest l ess than 20% stenosis in both internal carotid arteries. Criteria for Assigning % of Stenosis / Diameter reduction (Estimation based on the indirect measurements of the internal carotid artery velocities (ICA PSV). 1. Normal (no stenosis)=ICA PSV < 125 cm/s: ratio < 2.0: ICA EDV<40 cm/s. 2. Less than 50% stenosis=ICA PSV < 125 cm/s: ratio < 2.0: ICA EDV<40 cm/s. 3. 50 to 69% stenosis=ICA PSV of 125 to 230 cm/s: ration 2.0 ? 4.0: ICA EDV 40-100 cm/s. 4. Greater than 70% stenosis to near occlusion= ICA PSV > 230 cm/s: ratio > 4.0: ICA EDV > 100 cm/s. 5. Near occlusion= ICA PSV velocities may be low or undetectable: variable ratio and ICA EDV. 6. Total occlusion=unable to detect flow.
[2019-11-08 16:49] LABS: Glucose,Whole Blood 237 mg/dL (75-99)
--- NOTE | 2019-11-08 16:54 | P.CNNES ---
History of Present Illness Consult date: 11/08/19 Reason for Consult: left-sided weakness History of Present Illness: The patient is a 74-year-old male [facility]. He reports experiencing the onset of weakness and pain in his left wrist, extending up his arm and into his shoulder. He reports the symptoms began 3 days ago. He says the pain is quite severe, 8-9/10. He notices pain in his wrist and hand with simple movements of his fingers. He also notices mild tingling in his left arm. The patient denies similar symptoms in his left leg. He denies facial weakness. He denies difficulty with speech and swallowing. He denies visual changes. He does notice a slight headache. He denies neck pain. Mr. Banuelos does note that he has a history of neuropathy involving his feet. He notices some numbness and tingling in his fingertips. He also has a history of right-sided carpal tunnel syndrome. He does not recall of those previous carpal tunnel syndrome symptoms are the same as what he is experiencing now. Review of Systems See history of chief complaint Past Medical History Past Medical History: Atrial Fibrillation, Asthma, Coronary Artery Disease (CAD), COPD, Diabetes Mellitus, Hypertension, Myocardial Infarction ([place]), Pneumonia Additional Past Medical History / Comment(s): left knee cap broken, pancr eatitis, /gallstones(sx done). 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 date Last Myocardial Infarction Date:: 2017 History of Any Multi-Drug Resistant Organisms: None Reported Past Surgical History: Cholecystectomy, Coronary Bypass/CABG, Heart Catheterization With Stent, Hernia Repair, Orthopedic Surgery Additional Past Surgical History / Comment(s): tooth extractions, lt knee replacement(total of 3 sx), colonoscopy, picc line-since removed Past Anesthesia/Blood Transfusion Reactions: No Reported Reaction Date of Last Stent Placement:: 10/2015 Past Psychological History: No Psychological Hx Reported Smoking Status: Former smoker Past Alcohol Use History: Occasional Additional Past Alcohol Use History / Comment(s): started smoking as teen and quit 1983 smoked 2 ppd. Past Drug Use History: None Reported - Past Family History Father Family Medical History: Diabetes Mellitus Mother Family Medical History: CVA/TIA, Hypertension Medications and Allergies Home Medications Medication Instructions Recorded Confirmed Type Allopurinol [Zyloprim] 300 mg PO DAILY 08/07/17 11/07/19 History Atorvastatin [Lipitor] 40 mg PO HS 08/07/17 11/07/19 History Magnesium Oxide [Mag-Ox] 400 mg PO BID 08/07/17 11/07/19 History Albuterol Sulfate [Proventil Hfa] 1 - 2 puff INHALATION RT-QID PRN 10/15/17 11/07/19 History Carvedilol [Coreg] 6.25 mg PO BID 10/02/18 11/07/19 History Diazepam [Valium] 5 mg PO DAILY PRN 10/02/18 11/07/19 History Gabapentin 600 mg PO BID@1600,2200 10/02/18 11/07/19 History Levothyroxine Sodium [Synthroid] 112 mcg PO DAILY 10/02/18 11/07/19 History Levothyroxine Sodium [Synthroid] 125 mcg PO DAILY 10/02/18 11/07/19 History Meclizine [Antivert] 12.5 mg PO DAILY PRN 10/02/18 11/07/19 History Nitroglycerin Sl Tabs [Nitrostat] 0.4 mg SUBLINGUAL Q5M PRN 10/02/18 11/07/19 History Apixaban [Eliquis] 5 mg PO BID 11/07/19 11/07/19 History Budesonide/Formoterol Fumarate 1 puff INHALATION RT-BID 11/07/19 11/07/19 History [Symbicort 80-4.5 Mcg Inhaler] Hydrocodone/Acetaminophen [Bradley 1 tab PO Q12H PRN 11/07/19 11/07/19 History 7.5-325] Allergies Allergy/AdvReac Type Severity Reaction Status Date / Time cephalexin [From Keflex] Allergy Unknown Verified 11/07/19 16:37 clopidogrel [From Plavix] Allergy Unknown Verified 11/07/19 16:37 Iodine and Iodide Containing Allergy Unknown Verified 11/07/19 16:37 Produc levofloxacin [From Levaquin] Allergy Unknown Verified 11/07/19 16:37 shellfish derived [Shellfish] Allergy Unknown Verified 11/07/19 16:37 solifenacin Allergy Unknown Verified 11/07/19 16:37 codeine AdvReac Nausea & Verified 11/07/19 16:37 Vomiting oxycodone AdvReac Hallucinati Verified 11/07/19 16:37 ons Physical Examination - Vital Signs Vital Signs: Vital Signs Temp Pulse Pulse Resp BP BP Pulse Ox 11/08/19 11:28 97.7 F 64 18 113/72 91 L 11/08/19 08:00 98.1 F 64 18 126/74 93 L 11/08/19 03:53 82 18 11/07/19 20:00 82 18 117/74 11/07/19 18:46 97.8 F 94 18 123/66 94 L 11/07/19 16:48 97.9 F 62 18 107/72 97 11/07/19 14:35 60 18 115/73 95 Intake and Output 11/07/19 11/08/19 11/08/19 22:59 06:59 14:59 Intake Total 120 360 Output Total 100 600 Balance 20 -600 360 Intake: Oral 120 360 Output: Urine 100 600 Other: # Voids 1 1 Weight 112.491 kg 112.491 kg 112.491 kg Gen.: The patient is reclining in the bed. He is well-nourished, well-developed and in no acute distress. HEENT: Head is atraumatic, normocephalic. Fundus not visualized. There is no scleral icterus. Mucous membranes are moist. Neck: Supple, without carotid bruits Heart: Irregular Extremities: The left wrist is slightly warmer to the touch than the right. There is no evidence of swelling or erythema. Neurological examination Mental status: Patient is awake, alert and oriented 3. His speech is clear. Cranial nerves: Pupils are equal, round and reactive to light. Visual fuentes are full to confrontation. Extraocular muscles are intact. There is no nystagmus. Facial sensation is intact. There is no facial asymmetry. Hearing is grossly intact. Uvula and palate are midline. Shoulder shrug is symmetric. Tongue protrudes midline. Motor: Strength is 5/5 in the right upper and bilateral lower extremities. Upper extremity strength is diminished secondary to pain. Sensation: There is decreased light touch sensation to the distal right lower extremity, otherwise sensations intact. Coordination: Finger to nose testing is intact. There is no tremor or ataxia Deep tendon reflexes: Diminished throughout Gait: Not assessed Results - Laboratory Findings CBC and BMP: 11/07/19 13:35 11/07/19 13:35 Abnormal Lab Findings: Abnormal Labs 11/07/19 11/07/19 11/07/19 13:35 13:50 14:40 Sodium 132 L BUN 23 H Glucose 348 H POC Glucose (mg/dL) 344 H AST 15 L Total Protein 6.1 L Albumin 3.2 L HDL Cholesterol Urine Glucose (UA) 4+ H 11/07/19 11/07/19 11/07/19 15:09 15:44 20:01 Sodium BUN Glucose POC Glucose (mg/dL) 370 H 280 H 232 H AST Total Protein Albumin HDL Cholesterol Urine Glucose (UA) 11/08/19 11/08/19 11/08/19 05:31 06:24 11:27 Sodium BUN Glucose POC Glucose (mg/dL) 212 H 303 H AST Total Protein Albumin HDL Cholesterol 31 L Urine Glucose (UA) - Diagnostic Findings Comments: CT scan of the brain without signs of acute hemorrhage or infarct Assessment and Plan Assessment: Impressions: 1. No signs of stroke. Likely inflammatory process involving right wrist and arm-possible gout versus arthritic changes versus carpal tunnel syndrome Plan: Recommendations: 1. Uric acid ordered 2. Pt advised to follow back up with neurologist he has seen in past. 3. Ok for DC Time with Patient: Greater than 30
[2019-11-08 20:12] LABS: Glucose,Whole Blood 221 mg/dL (75-99)
[2019-11-08] MEDS: ATORVASTATIN 40 MG TAB PO SCH (22:37)
[2019-11-09 06:40] LABS: Glucose,Whole Blood 184 mg/dL (75-99)
[2019-11-09 06:41] LABS: Basophils # (A) 0.1 k/uL (0-0.2); Basophils % (A) 2 %; Eosinophils # (A) 0.5 k/uL (0-0.7); Eosinophils % (A) 6 %; HCT 45.4 % (39.0-53.0); HGB 14.2 gm/dL (13.0-17.5); Lymphocytes # (A) 1.1 k/uL (1.0-4.8); Lymphocytes % (A) 13 %; MCH 29.3 pg (25.0-35.0); MCHC 31.3 g/dL (31.0-37.0); MCV 93.5 fL (80.0-100.0); Mean Platelet Volume 8.4; Monocytes # (A) 0.8 k/uL (0-1.0); Monocytes % (A) 9 %; Neutrophils # (A) 5.9 k/uL (1.3-7.7); Neutrophils % (A) 70 %; Platelet Count 157 k/uL (150-450); RBC 4.85 m/uL (4.30-5.90); RDW 13.6 % (11.5-15.5); WBC 8.5 k/uL (3.8-10.6)
[2019-11-09] MEDS: CARVEDILOL 12.5 MG TAB PO SCH ×2 (06:57→17:23)
[2019-11-09] MEDS: LEVOTHYROXINE 125 MCG TAB PO SCH (06:58)
[2019-11-09] MEDS: LEVOTHYROXINE 112 MCG TAB PO SCH (06:58)
[2019-11-09] MEDS: INSULIN ASPART (NovoLOG) 100 UNIT/ML VIAL SQ SCH ×4 (06:58→22:44)
[2019-11-09 07:02] LABS: Albumin 3.1 g/dL (3.5-5.0); Calcium 8.6 mg/dL (8.4-10.2); Potassium 4.2 mmol/L (3.5-5.1); Total Protein 6.1 g/dL (6.3-8.2)
[2019-11-09] MEDS: SYMBICORT 80-4.5 MCG INHALER INHALATION SCH ×2 (07:17→19:53)
[2019-11-09] MEDS: MAGNESIUM OXIDE 400 MG TAB PO SCH ×2 (09:12→22:42)
[2019-11-09] MEDS: ALLOPURINOL 300 MG TAB PO SCH (09:12)
[2019-11-09] MEDS: APIXABAN 5 MG TAB PO SCH ×2 (09:12→22:44)
--- NOTE | 2019-11-09 09:24 | P.CRDCN ---
History of Present Illness Consult date: 11/09/19 Requesting physician: Karoline Mg Consult reason: atrial fibrillation Chief complaint: Left-sided weakness History of present illness: This is a 74-year-old gentleman who follows regularly with Dr. Mac in the office. He has a past medical history significant for coronary artery disease with prior bypass surgery and stent placements, in December 2017. This procedure was performed and [facility]. Patient also has history of hypertension, hyperlipidemia, diabetes, hypothyroidism, paroxysmal atrial fibrillation for which the patient is on Eliquis, COPD, prior nicotine dependence, he also has a known history of left patellar fracture which occurred after a fall and no surgical intervention was performed. Patient presents to the hospital on this occasion with symptoms of left arm weakness, he states he also had some weakness in his left leg but is always weak in the left leg from some problems. Patient states that the symptoms started as pain in his left wrist the pain went up into his shoulder and neck area and then the arm became somewhat weak. Was not flaccid, just weak. He had a mild headache and felt tired. Eyes any vision disturbance, patient also denies any slurring of speech, no significant weakness in the left lower extremity other than his normal. He was admitted to the hospital to rule out CVA. Etiology consultation was requested because of atrial fibrillation. On review of the patient's EKGs and rhythm strips that he's been here he's had no episodes of atrial fibrillation. He does take Eliquis 5 mg one tablet by mouth twice a day. CAT scan of the brain revealed some cerebral atrophy with no acute intracranial abnormality. Ch est x-ray did not reveal any active cardiopulmonary disease. EKG on presentation here shows a sinus bradycardia with a right bundle branch block pattern and occasional PVC. Nonspecific ST-T wave changes. Carotid Doppler study was also performed which revealed less than 20% stenosis in both internal carotid arteries. Blood pressure 118/60 with a heart rate in the 60s, 93% on room air. White blood cell count 8.5, hemoglobin 14.2, platelet count 157. Sodium 136, potassium 4.2, BUN 17, creatinine 1.1. Troponin 0.012, BNP 999. At the time of my examination this morning, patient states that his symptoms have pretty much resolved completely. Past Medical History Past Medical History: Atrial Fibrillation, Asthma, Coronary Artery Disease (CAD), COPD, Diabetes Mellitus, Hypertension, Myocardial Infarction ([place]), Pneumonia Additional Past Medical History / Comment(s): left knee cap broken, pancreatitis, /gallstones(sx done). 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 date Last Myocardial Infarction Date:: 2017 History of Any Multi-Drug Resistant Organisms: None Reported Past Surgical History: Cholecystectomy, Coronary Bypass/CABG, Heart Catheterization With Stent, Hernia Repair, Orthopedic Surgery Additional Past Surgical History / Comment(s): tooth extractions, lt knee replacement(total of 3 sx), colonoscopy, picc line-since removed Past Anesthesia/Blood Transfusion Reactions: No Reported Reaction Date of Last Stent Placement:: 10/2015 Past Psychological History: No Psychological Hx Reported Smoking Status: Former smoker Past Alcohol Use History: Occasional Additional Past Alcohol Use History / Comment(s): started smoking as teen and quit 1983 smoked 2 ppd. Past Drug Use History: None Reported - Past Family History Father Family Medical History: Diabetes Mellitus Mother Family Medical History: CVA/TIA, Hypertension Medications and Allergies Home Medications Medication Instructions Recorded Confirmed Type Allopurinol [Zyloprim] 300 mg PO DAILY 08/07/17 11/07/19 History Atorvastatin [Lipitor] 40 mg PO HS 08/07/17 11/07/19 History Magnesium Oxide [Mag-Ox] 400 mg PO BID 08/07/17 11/07/19 History Albuterol Sulfate [Proventil Hfa] 1 - 2 puff INHALATION RT-QID PRN 10/15/17 11/07/19 History Carvedilol [Coreg] 6.25 mg PO BID 10/02/18 11/07/19 History Diazepam [Valium] 5 mg PO DAILY PRN 10/02/18 11/07/19 History Gabapentin 600 mg PO BID@1600,2200 10/02/18 11/07/19 History Levothyroxine Sodium [Synthroid] 112 mcg PO DAILY 10/02/18 11/07/19 History Levothyroxine Sodium [Synthroid] 125 mcg PO DAILY 10/02/18 11/07/19 History Meclizine [Antivert] 12.5 mg PO DAILY PRN 10/02/18 11/07/19 History Nitroglycerin Sl Tabs [Nitrostat] 0.4 mg SUBLINGUAL Q5M PRN 10/02/18 11/07/19 History Apixaban [Eliquis] 5 mg PO BID 11/07/19 11/07/19 History Budesonide/Formoterol Fumarate 1 puff INHALATION RT-BID 11/07/19 11/07/19 History [Symbicort 80-4.5 Mcg Inhaler] Hydrocodone/Acetaminophen [Otto 1 tab PO Q12H PRN 11/07/19 11/07/19 History 7.5-325] Allergies Allergy/AdvReac Type Severity Reaction Status Date / Time cephalexin [From Keflex] Allergy Unknown Verified 11/07/19 16:37 clopidogrel [From Plavix] Allergy Unknown Verified 11/07/19 16:37 Iodine and Iodide Containing Allergy Unknown Verified 11/07/19 16:37 Produc levofloxacin [From Levaquin] Allergy Unknown Verified 11/07/19 16:37 shellfish derived [Shellfish] Allergy Unknown Verified 11/07/19 16:37 solifenacin Allergy Unknown Verified 11/07/19 16:37 codeine AdvReac Nausea & Verified 11/07/19 16:37 Vomiting oxycodone AdvReac Hallucinati Verified 11/07/19 16:37 ons Physical Exam Vitals: Vital Signs Temp Pulse Resp BP Pulse Ox 11/09/19 04:00 97.9 F 63 18 118/60 93 L 11/09/19 00:00 98.2 F 61 18 132/69 94 L 11/08/19 20:00 99.3 F 64 18 124/70 97 11/08/19 15:45 97 F L 64 18 134/78 93 L 11/08/19 11:28 97.7 F 64 18 113/72 91 L Intake and Output 11/08/19 11/09/19 11/09/19 22:59 06:59 14:59 Intake Total 240 Output Total 500 300 450 Balance -260 -300 -450 Intake: Oral 240 Output: Urine 500 300 450 Other: # Bowel Movements 0 Weight 115 kg PHYSICAL EXAMINATION: GENERAL: 74-year-old gentleman in no acute distress at the time of my examination HEENT: Head is atraumatic, normocephalic. Pupils equal, round. Sclera anicteric. Conjunctiva are clear. Mucous membranes of the mouth are moist. Neck is supple. There is no elevated jugular venous pressure. No carotid bruit is heard. HEART EXAMINATION: Heart S1 S2 systolic murmur is heard CHEST EXAMINATION: Lungs are clear to auscultation and precussion. No chest wall tenderness is noted on palpation or with deep breathing. ABDOMEN: Soft, obese, nontender. Bowel sounds are heard. No organomegaly noted. EXTREMITIES: 2+ peripheral pulses with no evidence of peripheral edema and no calf tenderness noted. NEUROLOGIC patient is awake, alert and oriented 3 . . Results 11/09/19 05:22 11/09/19 05:22 Cardiac Enzymes 11/09/19 Range/Units 05:22 AST 15 L (17-59) U/L CBC 11/09/19 Range/Units 05:22 WBC 8.5 (3.8-10.6) k/uL RBC 4.85 (4.30-5.90) m/uL Hgb 14.2 (13.0-17.5) gm/dL Hct 45.4 (39.0-53.0) % Plt Count 157 (150-450) k/uL Comprehensive Metabolic Panel 11/09/19 Range/Units 05:22 Sodium 136 L (137-145) mmol/L Potassium 4.2 (3.5-5.1) mmol/L Chloride 104 (98-107) mmol/L Carbon Dioxide 25 (22-30) mmol/L BUN 17 (9-20) mg/dL Creatinine 1.10 (0.66-1.25) mg/dL Glucose 179 H (74-99) mg/dL Calcium 8.6 (8.4-10.2) mg/dL AST 15 L (17-59) U/L ALT 7 (4-49) U/L Alkaline Phosphatase 89 (38-126) U/L Total Protein 6.1 L (6.3-8.2) g/dL Albumin 3.1 L (3.5-5.0) g/dL Current Medications Generic Name Dose Route Start Last Admin Trade Name Freq PRN Reason Stop Dose Admin Acetaminophen 650 mg 11/08/19 08:25 11/08/19 08:34 Tylenol Tab PO 650 mg Q6HR PRN Administration Fever and/ or Pain Hydrocodone Bitart/Acetaminophen 1 each 11/07/19 23:00 Otto 7.5-325 PO Q12H PRN Pain Allopurinol 300 mg 11/08/19 09:00 11/08/19 08:34 Zyloprim PO 300 mg DAILY MARIVEL Administration Apixaban 5 mg 11/08/19 09:00 11/08/19 22:37 Eliquis PO 5 mg BID [facility] Administration Atorvastatin Calcium 40 mg 11/08/19 21:00 11/08/19 22:37 Lipitor PO 40 mg HS [facility] Administration Budesonide/Formoterol Fumarate 1 puff 11/08/19 08:00 11/09/19 07:17 Symbicort 80-4.5 Mcg Inhaler INHALATION 1 puff RT-BID [facility] Administration Carvedilol 6.25 mg 11/08/19 07:30 11/09/19 06:57 Coreg PO 6.25 mg BID-W/MEALS [facility] Administration Diazepam 5 mg 11/07/19 23:00 11/07/19 23:01 Valium PO 5 mg DAILY PRN Administration Anxiety Gabapentin 1,200 mg 11/08/19 16:00 11/08/19 22:37 Neurontin PO 1,200 mg 1600,2200 [facility] Administration Insulin Aspart 0 unit 11/08/19 12:30 11/09/19 06:58 Novolog SQ 3 unit ACHS [facility] Administration Protocol Levothyroxine Sodium 112 mcg 11/08/19 06:30 11/09/19 06:58 Synthroid PO 112 mcg DAILY@0630 [facility] Administration Levothyroxine Sodium 125 mcg 11/08/19 06:30 11/09/19 06:58 Synthroid PO 125 mcg DAILY@0630 [facility] Administration Magnesium Oxide 400 mg 11/08/19 09:00 11/08/19 22:37 Mag-Ox PO 400 mg BID [facility] Administration Meclizine HCl 12.5 mg 11/08/19 09:00 Antivert PO DAILY PRN Nausea Nitroglycerin 0.4 mg 11/07/19 23:00 Nitrostat SUBLINGUAL Q5M PRN Chest Pain Intake and Output 11/08/19 11/09/19 11/09/19 22:59 06:59 14:59 Intake Total 240 Output Total 500 300 450 Balance -260 -300 -450 Intake: Oral 240 Output: Urine 500 300 450 Other: # Bowel Movements 0 Weight 115 kg 11/09/19 05:22 11/09/19 05:22 EKG Interpretations (text) EKG shows a normal sinus rhythm with a right bundle branch block pattern, nonspecific ST-T wave changes and occasional PVC Assessment and Plan Plan: Assessment and plan #1 left upper extremity pain and weakness, without any other focal neurological deficit. Rule out CVA/TIA #2 history of paroxysmal atrial fibrillation maintained on ELIQUIS #3 history of coronary artery disease with history of angioplasty and stent placement 4 in the past and history of coronary artery bypass graft surgery #4 history of hypertension #5 history of hypothyroidism #6 history of hyperlipidemia #7 history of peripheral neuropathy #8 history of diabetes #9 COPD #10 prior history of smoking Plan Patient states he had an echo performed in the office 2 weeks ago, we will get a copy of that included in the chart. He is maintaining normal sinus rhythm at this time. We will continue to monitor. Continue Eliquis. Further recommendations to follow. DNP note has been reviewed, I agree with a documented findings and plan of care. Patient was seen and examined.
[2019-11-09] MEDS ORDERED: AMINOPHYLLINE 500 MG/20 ML VIAL IV PRN (09:48)
[2019-11-09] MEDS ORDERED: CAFFEINE CITRATE 60 MG/3 ML VIAL IV PRN (09:48)
[2019-11-09] MEDS ORDERED: DIPYRIDAMOLE IV ONE (10:00)
[2019-11-09] MEDS ORDERED: SODIUM CHLORIDE 0.9% IV ONE (10:00)
[2019-11-09 10:37] VITALS: RESP 20
[2019-11-09 12:45] LABS: Glucose,Whole Blood 230 mg/dL (75-99)
--- NOTE | 2019-11-09 13:41 | P.PN ---
Subjective Progress Note Date: 11/09/19 Patient was seen by Dr. Allison on 11/07/2019. Patient has presented with left hand, wrist pain, 9-10/10, extending to the left upper arm. Patient does have history of severe diabetic neuropathy. He has diabetes for 20 years. Patient takes Neurontin. He also states that he has history of upper respiratory infection recently. Patient follows up with Dr. Vance Hernadez. Patient had a negative carotid Doppler, computed tomography scan of the head. His symptoms are suggestive of peripheral nerve disorder rather than central. Patient has history of right carpal tunnel release in the past. Patient leila arently has very severe left CTS, with severe atrophy of the thenar muscles. He has not undergone any left carpal tunnel release in the past. Hemoglobin A1c 7.8 on 10/02/2019. Total cholesterol 104, LDL 43, HDL 31 and triglycerides 148 on 11/08/2019. X-ray of the left wrist showed no acute osseo us lesion. Objective - Vital Signs Vital signs: Vital Signs Temp 97.9 F 11/09/19 08:00 Pulse 71 11/09/19 12:00 Resp 20 11/09/19 12:00 BP 108/61 11/09/19 12:00 Pulse Ox 93 L 11/09/19 12:00 Intake & Output 11/08/19 11/09/19 11/09/19 18:59 06:59 18:59 Intake Total 620 240 Output Total 900 600 450 Balance -280 -600 -210 Weight 112.491 kg 115 kg Intake: IV 20 0.9 20 Oral 600 240 Output: Urine 900 600 450 Other: # Voids 1 # Bowel Movements 0 - Exam Patient's mental status, speech and language functions are normal. Muscle strength is normal. He has guarding of the left wrist because of pain. - Labs CBC & Chem 7: 11/09/19 05:22 11/09/19 05:22 Labs: Abnormal Lab Results - Last 24 Hours (Table) 11/08/19 11/08/19 11/09/19 Range/Units 16:46 20:10 05:22 Sodium 136 L (137-145) mmol/L Glucose 179 H (74-99) mg/dL POC Glucose (mg/dL) 237 H 221 H (75-99) mg/dL AST 15 L (17-59) U/L Total Protein 6.1 L (6.3-8.2) g/dL Albumin 3.1 L (3.5-5.0) g/dL 11/09/19 11/09/19 Range/Units 06:39 12:42 Sodium (137-145) mmol/L Glucose (74-99) mg/dL POC Glucose (mg/dL) 184 H 230 H (75-99) mg/dL AST (17-59) U/L Total Protein (6.3-8.2) g/dL Albumin (3.5-5.0) g/dL Assessment and Plan Assessment: * Left wrist and arm pain. Possible tendinitis, carpal tunnel syndrome, arthritic versus plexitis * Diabetes * History of bilateral carpal tunnel syndrome. Plan: * Patient may need EMG nerve conduction of left upper extremity as an outpatient. * Follow up with Dr. Vance Hernadez, patient's neurologist as outpatient.
--- NOTE | 2019-11-09 13:45 | P.PN ---
Subjective Progress Note Date: 11/09/19 Patrick Banuelos is a 74-year-old male patient of Dr. Walter who presented to [facility] emergency room with multiple complaints including generalized weakness, elevated glucose level, left sided weakness involving the left upper extremity, recent upper respiratory infection with cough. He was evaluated in the emergency room by Dr. Ferrer and was admitted to telemetry floor for further evaluation of left upper extremity weakness, rule out cerebrovascular accident. Patient has a prolonged past medical history including known history of atrial fibrillation, patient is maintained on Eliquis he states that he has been taking medication regularly and denies missing any doses recently, patient also has a known history of coronary artery disease with previous history of angioplasty an d stent placement he also has a known history of diabetes mellitus, history of peripheral neuropathy, history of gout, history of hypothyroidism, history of hyperlipidemia and history of hypertension. After being admitted to the floor patient stated that he was having pain in his left wrist area he denies any recent injury or fall x-ray of the left wrist was ordered uric acid level was ordered. On 11/09/2019 patient is alert and oriented 3. Neurology to evaluate patient states no signs of stroke. Uric acid level .6. Hemoglobin A1c pending. Per cardiology services stress test has been ordered for tomorrow 11/10/2019. At this time patient denies chest pain or shortness of breath. Patient denies nausea vomiting or diarrhea. Patient denies any urinary burning or frequency Objective - Vital Signs Vital signs: Vital Signs Temp 97.9 F 11/09/19 08:00 Pulse 71 11/09/19 12:00 Resp 20 11/09/19 12:00 BP 108/61 11/09/19 12:00 Pulse Ox 93 L 11/09/19 12:00 Intake & Output 11/08/19 11/09/19 11/09/19 18:59 06:59 18:59 Intake Total 620 240 Output Total 900 600 450 Balance -280 -600 -210 Weight 112.491 kg 115 kg Intake: IV 20 0.9 20 Oral 600 240 Output: Urine 900 600 450 Other: # Voids 1 # Bowel Movements 0 - Exam In general patient is alert and oriented 3 in no apparent distress HEENT head normocephalic and atraumatic Neck is supple no JVD no goiter no lymphadenopathy Chest exam reveals a few scattered rhonchi bilaterally no wheezing Cardiac exam reveals irregular heart sounds S1 and S2 no gallops no murmurs Abdomen is soft nontender no organomegaly with normal bowel sounds Extremity exam reveals no edema no cyanosis or clubbing Neurological examination Mental status patient is alert and oriented 3, speech is fluent Cranial nerve II-12 are intact Motor exam at this time reveals minimal weakness in the left hand 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 as compared to the right otherwise no focal motor deficit - Labs CBC & Chem 7: 11/09/19 05:22 11/09/19 05:22 Labs: Abnormal Lab Results - Last 24 Hours (Table) 11/08/19 11/08/19 11/09/19 Range/Units 16:46 20:10 05:22 Sodium 136 L (137-145) mmol/L Glucose 179 H (74-99) mg/dL POC Glucose (mg/dL) 237 H 221 H (75-99) mg/dL AST 15 L (17-59) U/L Total Protein 6.1 L (6.3-8.2) g/dL Albumin 3.1 L (3.5-5.0) g/dL 11/09/19 11/09/19 Range/Units 06:39 12:42 Sodium (137-145) mmol/L Glucose (74-99) mg/dL POC Glucose (mg/dL) 184 H 230 H (75-99) mg/dL AST (17-59) U/L Total Protein (6.3-8.2) g/dL Albumin (3.5-5.0) g/dL Assessment and Plan Assessment: #1 left upper extremity weakness, without any other focal neurological deficit, it is unclear whether this is related to neurological deficit versus wrist pain causing weakness in the left hand 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. CT completed showing cerebral atrophy. No acute intracranial abnormality. Right wrist x-ray completed showing no acute osseous lesion. Carotid Doppler completed showing anterograde flow in vertebral arteries. Images and measurements chest less than 20% stenosis in both internal carotid arteries. Cardiology services have been consulted. 2-D echo recently completed an office. Per cardiology will obtain. Per neurology services no signs of stroke. Likely inflammatory process involving right wrist patient advised to follow-up with neurologist outpatient #2 underlying history of atrial fibrillation maintained on ELIQUIS, patient denies missing any doses recently medication was restarted on admission. #3 underlying history of coronary artery disease with history of angioplasty and stent placement 4 in the past and history of coronary artery bypass graft surgery. Per cardiology services 2-D echo will be reviewed from office 2 weeks prior. Stress test has been ordered for 11/10/2019 #4 underlying history of hypertension #5 underlying history of hypothyroidism #6 underlying history of hyperlipidemia #7 underlying history of peripheral neuropathy #8 hyperglycemia on presentation may be related to recent steroid use for upper respiratory infection, patient is not on any medication for diabetes, will check hemoglobin A1c #9 underlying history of gout with check uric acid level patient is maintained on allopurinol. Uric acid level 6.6 DVT prophylaxis eliquis. GI prophylaxis Pepcid Hemoglobin A1c pending Neurology services have cleared patient for discharge Stress test has been ordered per cardiology for 11/10/2019 I performed an examination of the patient and discussed their management with the Nurse Practitioner. I have reviewed the Nurse Practitioner's notes and agree with the documented findings and plan of care
[2019-11-09 14:08] LABS: Hemoglobin A1C 9.3 % (4.0-6.0)
[2019-11-09] MEDS: GABAPENTIN 400 MG CAP PO SCH ×2 (17:22→22:44)
[2019-11-09 17:23] LABS: Glucose,Whole Blood 262 mg/dL (75-99)
[2019-11-09 20:18] LABS: Glucose,Whole Blood 235 mg/dL (75-99)
[2019-11-09] MEDS: ATORVASTATIN 40 MG TAB PO SCH (22:42)
[2019-11-09] MEDS: NAPROXEN 250 MG TAB PO SCH (22:43)
[2019-11-10 06:18] LABS: Glucose,Whole Blood 223 mg/dL (75-99)
[2019-11-10 06:19] LABS: Basophils # (A) 0.1 k/uL (0-0.2); Basophils % (A) 2 %; Eosinophils # (A) 0.4 k/uL (0-0.7); Eosinophils % (A) 6 %; HCT 41.1 % (39.0-53.0); HGB 13.1 gm/dL (13.0-17.5); Lymphocytes # (A) 1.1 k/uL (1.0-4.8); Lymphocytes % (A) 15 %; MCH 29.7 pg (25.0-35.0); MCV 92.9 fL (80.0-100.0); Mean Platelet Volume 8.4; Monocytes # (A) 0.8 k/uL (0-1.0); Monocytes % (A) 10 %; Neutrophils # (A) 4.9 k/uL (1.3-7.7); Neutrophils % (A) 66 %; Platelet Count 140 k/uL (150-450); RBC 4.43 m/uL (4.30-5.90); RDW 13.6 % (11.5-15.5); WBC 7.5 k/uL (3.8-10.6)
[2019-11-10 06:30] LABS: Albumin 3.1 g/dL (3.5-5.0); Calcium 8.6 mg/dL (8.4-10.2); Potassium 4.2 mmol/L (3.5-5.1); Total Bilirubin 0.8 mg/dL (0.2-1.3); Total Protein 6.1 g/dL (6.3-8.2)
[2019-11-10] MEDS: SYMBICORT 80-4.5 MCG INHALER INHALATION SCH (07:16)
[2019-11-10] MEDS ORDERED: FAMOTIDINE 20 MG TAB PO SCH (09:00)
[2019-11-10] MEDS: NAPROXEN 250 MG TAB PO SCH (11:17)
[2019-11-10] MEDS: LEVOTHYROXINE 125 MCG TAB PO SCH (11:17)
[2019-11-10] MEDS: ALLOPURINOL 300 MG TAB PO SCH (11:17)
[2019-11-10] MEDS: MAGNESIUM OXIDE 400 MG TAB PO SCH (11:17)
[2019-11-10] MEDS: CARVEDILOL 12.5 MG TAB PO SCH ×2 (11:17→16:32)
[2019-11-10] MEDS: LEVOTHYROXINE 112 MCG TAB PO SCH (11:17)
[2019-11-10] MEDS: INSULIN ASPART (NovoLOG) 100 UNIT/ML VIAL SQ SCH ×2 (11:18→11:59)
[2019-11-10] MEDS: APIXABAN 5 MG TAB PO SCH (11:18)
[2019-11-10 11:27] VITALS: TEMP 97.8
--- NOTE | 2019-11-10 11:27 | NM ---
EXAMINATION TYPE: NM stress persantine cardiolit DATE OF EXAM: 11/10/2019 COMPARISON: NONE HISTORY: Chest pain TECHNIQUE: After the intravenous administration of 10 mCi Tc 99m Sestamibi - Cardiolite resting SPEC T images acquired 90 minutes post injection. The patient received 65.5 mg Persantine, 26 mCi Tc 99m Sestamibi - Stress images obtained 35 minutes post injection FINDINGS: Review of stress and rest SPECT images demonstrates no distinct perfusion abnormality. Gated analysi s shows abnormal wall motion with an estimated left ventricular ejection fraction of 27 %. TID is hermila culated within normal limits at 1.0. IMPRESSION: 1. 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 2. No scintigraphic evidence for reversible ischemia. 3. Abnormal left ventricular ejection fraction of 27%.
[2019-11-10 11:48] LABS: Glucose,Whole Blood 223 mg/dL (75-99)
--- NOTE | 2019-11-10 13:23 | P.PN ---
Subjective Progress Note Date: 11/10/19 Patient was seen by Dr. Allison on 11/07/2019. Patient has presented with left hand, wrist pain, 9-10/10, extending to the left upper arm. Patient does have history of severe diabetic neuropathy. He has diabetes for 20 years. Patient takes Neurontin. He also states that he has history of upper respiratory infection recently. Patient follows up with Dr. Vance Hernadez. 11/10/2019: Patient states left hand is much better. 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 Patient had a negative carotid Doppler, computed tomography scan of the head. His symptoms are suggestive of peripheral nerve disorder rather than central. Patient has history of right carpal tunnel release in the past. Patient apparently has very severe left CTS, with severe atrophy of the thenar muscles. He has not undergone any left carpal tunnel release in the past. Hemoglobin A1c 7.8 on 10/02/2019. Total cholesterol 104, LDL 43, HDL 31 and triglycerides 148 on 11/08/2019. X-ray of the left wrist showed no acute osseous lesion. Objective - Vital Signs Vital signs: Vital Signs Temp 97.8 F 11/10/19 11:24 Pulse 60 11/10/19 11:24 Resp 20 11/10/19 11:24 BP 128/64 11/10/19 11:24 Pulse Ox 93 L 11/10/19 11:24 Intake & Output 11/09/19 11/10/19 11/10/19 18:59 06:59 18:59 Intake Total 906 Output Total 450 650 400 Balance 456 -650 -400 Weight 111.13 kg Intake: Oral 906 Output: Urine 450 650 400 Other: # Voids 550 550 # Bowel Movements 0 - Exam Patient's mental status, speech and language functions are normal. Muscle strength is normal. 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 The wrist pain has much reduced. - Labs CBC & Chem 7: 11/10/19 05:37 11/10/19 05:37 Labs: Abnormal Lab Results - Last 24 Hours (Table) 11/09/19 11/09/19 11/09/19 Range/Units 05:22 17:22 20:17 Plt Count (150-450) k/uL Glucose (74-99) mg/dL POC Glucose (mg/dL) 262 H 235 H (75-99) mg/dL Hemoglobin A1c 9.3 H (4.0-6.0) % AST (17-59) U/L Total Protein (6.3-8.2) g/dL Albumin (3.5-5.0) g/dL 11/10/19 11/10/19 11/10/19 Range/Units 05:37 05:37 06:11 Plt Count 140 L (150-450) k/uL Glucose 212 H (74-99) mg/dL POC Glucose (mg/dL) 223 H (75-99) mg/dL Hemoglobin A1c (4.0-6.0) % AST 14 L (17-59) U/L Total Protein 6.1 L (6.3-8.2) g/dL Albumin 3.1 L (3.5-5.0) g/dL 11/10/19 Range/Units 11:45 Plt Count (150-450) k/uL Glucose (74-99) mg/dL POC Glucose (mg/dL) 223 H (75-99) mg/dL Hemoglobin A1c (4.0-6.0) % AST (17-59) U/L Total Protein (6.3-8.2) g/dL Albumin (3.5-5.0) g/dL Assessment and Plan Assessment: * Left wrist and arm pain. Possible tendinitis, carpal tunnel syndrome, or arthritic. Brachial Plexitis appears less likely, as symptoms are improving and there is no significant numbness. * Diabetes * History of bilateral carpal tunnel syndrome. Plan: * Patient may need EMG nerve conduction of left upper extremity as an outpatient. Patient on naproxen and gabapentin. * Follow up with Dr. Vance Hernadez, patient's neurologist as outpatient, if the symptoms persist. * Neurology will sign off.
--- NOTE | 2019-11-10 14:06 | EST ---
EXERCISE STRESS AGE: 74 SEX: M PROTOCOL: Persantine Cardiolite Stress Test MAXIMUM HEART RATE ACHIEVED: 67 MAXIMUM BLOOD PRESSURE: 128/67 INDICATIONS: Chest pain. CLINICAL INFORMATION: A Persantine Cardiolite study was performed peak heart rate of 67 was achieved. Maximum blood pressure of 128/67 mmHg was noted. Resting EKG shows normal sinus rhythm with a QRS morphology suggestive of right bundle branch block pattern is noted. Occasional PVCs were noted. No ST-segment depression suggestive of ischemia is noted. The results of the nuclear study will follow. MMODL / IJN: [id number] /
--- NOTE | 2019-11-10 14:48 | P.PN ---
Subjective Progress Note Date: 11/10/19 This is a 74-year-old gentleman who follows regularly with Dr. Mac in the office. He has a past medical history significant for coronary artery disease with prior bypass surgery and stent placements, in December 2017. This procedure was performed and [facility]. Patient also has history of hypertension, hyperlipidemia, diabetes, hypothyroidism, paroxysmal atrial fibrillation for which the patient is on Eliquis, COPD, prior nicotine dependence, he also has a known history of left patellar fracture which occurred after a fall and no surgical intervention was performed. Patient presents to the hospital on this occasion with symptoms of left arm weakness, he states he also had some weakness in his left leg but is always weak in the left leg from some problems. Patient states that the symptoms started as pain in his left wrist the pain went up into his shoulder and neck area and then the arm became somewhat weak. Was not flaccid, just weak. He had a mild headache and felt tired. Eyes any vision disturbance, patient also denies any slurring of speech, no significant weakness in the left lower extremity other than his normal. He was admitted to the hospital to rule out CVA. Etiology consultation was requested because of atrial fibrillation. On review of the patient's EKGs and rhythm strips that he's been here he's had no episodes of atrial fibrillation. He does take Eliquis 5 mg one tablet by mouth twice a day. CAT scan of the brain revealed some cerebral atrophy with no acute intracranial abnormality. Chest x-ray did not reveal any active cardiopulmonary disease. EKG on presentation here shows a sinus bradycardia with a right bundle branch block pattern and occasional PVC. Nonspecific ST-T wave changes. Carotid Doppler study was also performed which revealed less than 20% stenosis in both internal carotid arteries. Blood pressure 118/60 with a heart rate in the 60s, 93% on room air. White blood cell count 8.5, hemoglobin 14.2, platelet count 157. Sodium 136, potassium 4.2, BUN 17, creatinine 1.1. Troponin 0.012, BNP 999. At the time of my examination this morning, patient states that his symptoms have pretty much resolved completely. 11/10/2019 Patient seen and examined this morning, hemodynamically stable.blood pressure 128/60 with a heart rate of 60, 93% on room air.White blood cell count 7.5, hemoglobin 13.1, platelet count 140. Sodium 138, potassium 4.2, BUN 20, creatinine 1.1. Objective - Vital Signs Vital signs: Vital Signs Temp 97.8 F 11/10/19 11:24 Pulse 60 11/10/19 11:24 Resp 20 11/10/19 11:24 BP 128/64 11/10/19 11:24 Pulse Ox 93 L 11/10/19 11:24 Intake & Output 11/09/19 11/10/19 11/10/19 18:59 06:59 18:59 Intake Total 906 240 Output Total 450 650 400 Balance 456 -650 -160 Weight 111.13 kg Intake: Oral 906 240 Output: Urine 450 650 400 Other: # Voids 550 550 # Bowel Movements 0 - Exam GENERAL: 74-year-old gentleman in no acute distress at the time of my examination HEENT: Head is atraumatic, normocephalic. Pupils equal, round. Sclera anicteric. Conjunctiva are clear. Mucous membranes of the mouth are moist. Neck is supple. There is no elevated jugular venous pressure. No carotid bruit is heard. HEART EXAMINATION: Heart S1 S2 systolic murmur is heard CHEST EXAMINATION: Lungs are clear to auscultation and precussion. No chest wall tenderness is noted on palpation or with deep breathing. ABDOMEN: Soft, obese, nontender. Bowel sounds are heard. No organomegaly noted. EXTREMITIES: 2+ peripheral pulses with no evidence of peripheral edema and no calf tenderness noted. NEUROLOGIC patient is awake, alert and oriented 3 . - Labs CBC & Chem 7: 11/10/19 05:37 11/10/19 05:37 Labs: Abnormal Lab Results - Last 24 Hours (Table) 11/09/19 11/09/19 11/10/19 Range/Units 17:22 20:17 05:37 Plt Count 140 L (150-450) k/uL Glucose (74-99) mg/dL POC Glucose (mg/dL) 262 H 235 H (75-99) mg/dL AST (17-59) U/L Total Protein (6.3-8.2) g/dL Albumin (3.5-5.0) g/dL 11/10/19 11/10/19 11/10/19 Range/Units 05:37 06:11 11:45 Plt Count (150-450) k/uL Glucose 212 H (74-99) mg/dL POC Glucose (mg/dL) 223 H 223 H (75-99) mg/dL AST 14 L (17-59) U/L Total Protein 6.1 L (6.3-8.2) g/dL Albumin 3.1 L (3.5-5.0) g/dL Assessment and Plan Plan: Assessment and plan #1 left upper extremity pain and weakness, without any other focal neurological deficit. Rule out CVA/TIA #2 history of paroxysmal atrial fibrillation maintained on ELIQUIS #3 history of coronary artery disease with history of angioplasty and stent placement 4 in the past and history of coronary artery bypass graft surgery #4 history of hypertension #5 history of hypothyroidism #6 history of hyperlipidemia #7 history of peripheral neuropathy #8 history of diabetes #9 COPD #10 prior history of smoking Plan patient underwent a Persantine stress test today that was negative for any reversible ischemia. From our perspective he may be able to be discharged home today, follow-up in the office post discharge. DNP note has been reviewed, I agree with a documented findings and plan of care. Patient was seen and examined.
--- NOTE | 2019-11-10 15:22 | P.DS ---
Providers Date of admission: 11/09/19 13:58 Expected date of discharge: 11/10/19 Attending physician: Karoline Mg Consults: 11/07/19 15:45 Consult Physician Routine Consulting Provider: Essie Allison Consult Reason/Comments: CVA, left-sided weakness Do you want consulting provider notified?: Yes 11/08/19 15:38 Consult Physician Routine Consulting Provider: Mayelin Vasquez Consult Reason/Comments: a-fib, cva Do you want consulting provider notified?: Yes 11/08/19 15:39 Consult Physician Routine Consulting Provider: Esther Howell Consult Reason/Comments: cva Do you want consulting provider notified?: Yes Primary care physician: Teresa Walter Hospital Course: Discharge diagnosis #1 left upper extremity weakness, without any other focal neurological deficit, it is unclear whether this is related to neurological deficit versus wrist pain 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 CT completed showing cerebral atrophy. No acute intracranial abnormality. Right wrist x-ray completed showing no acute osseous lesion. Carotid Doppler completed showing anterograde flow in vertebral arteries. Images and measurements chest less than 20% stenosis in both internal carotid arteries. Cardiology services have been consulted. 2-D echo recently completed an office. Per cardiology will obtain. Per neurology services no signs of stroke. Likely inflammatory process involving right wrist patient advised to follow-up with neurologist outpatient #2 underlying history of atrial fibrillation maintained on ELIQUIS, patient denies missing any doses recently medication was restarted on admission. #3 underlying history of coronary artery disease with history of angioplasty and stent placement 4 in the past and history of coronary artery bypass graft surgery. Per cardiology services 2-D echo will be reviewed from office 2 weeks prior. Status post stress test showing large old infarct in the distribution of the left anterior descending coronary artery no scintigraphic evidence for reversible ischemia abnormal left ventricular ejection fraction of 27%. Per cardiology services stress test was negative for any reversible ischemia. P atient may be discharged home today follow-up in office upon discharge #4 underlying history of hypertension #5 underlying history of hypothyroidism #6 underlying history of hyperlipidemia #7 underlying history of peripheral neuropathy. maintained on Neurontin #8 diabetes mellitus type 2 . hyperglycemia on presentation may be related to recent steroid use for upper respiratory infection, patient is not on any medication for diabetes, will check hemoglobin A1c. Hemoglobin A1c 9.3. Patient will be started on metformin 500 twice a day and tradjenta 5 mg daily. Patient follow-up with PCP for further management. #9 underlying history of gout with check uric acid level patient is maintained on allopurinol. Uric acid level 6.6. Hospital course Patrick Banuelos is a 74-year-old male patient of Dr. Walter who presented to [facility] emergency room with multiple complaints including generalized weakness, elevated glucose level, left sided weakness involving the left upper extremity, recent upper respiratory infection with cough. He was evaluated in the emergency room by Dr. Ferrer and was admitted to telemetry floor for further evaluation of left upper extremity weakness, rule out cerebrovascular accident. Patient has a prolonged past medical history including known history of atrial fibrillation, patient is maintained on Eliquis he states that he has been taking medication regularly and denies missing any doses recently, patient also has a known history of coronary artery disease with previous history of angioplasty and stent placement he also has a known history of diabetes mellitus, history of peripheral neuropathy, history of gout, history of hypothyroidism, history of hyperlipidemia and history of hypertension. After being admitted to the floor patient stated that he was having pain in his left wrist area he denies any recent injury or fall x-ray of the left wrist was ordered uric acid level was ordered. On 11/09/2019 patient is alert and oriented 3. Neurology to evaluate patient states no signs of stroke. Uric acid level .6. Hemoglobin A1c pending. Per cardiology services stress test has been ordered for tomorrow 11/10/2019. At this time patient denies chest pain or shortness of breath. Patient denies nausea vomiting or diarrhea. Patient denies any urinary burning or frequency On 11/10/2019 patient is alert and oriented 3 patient has been cleared by neurology and cardiology services. Patient underwent stress test results above. These were reviewed with patient per cardiology services were negative for any reversible ischemia. Patient to follow-up with outpatient cardiology for further management. Patient's hemoglobin A1c elevated at 9.3. Patient will be started on metformin 500 twice a day and tradgenta 5 mg daily. Patient follow- up with PCP for further management. At this time patient denies any chest pain or shortness of breath. Weakness to left approximately has resolved. Patient denies any chest pain or shortness of breath. Patient denies any nausea vomiting or diarrhea I performed an examination of the patient and discussed their management with the Nurse Practitioner. I have reviewed the Nurse Practitioner's notes and agree with the documented findings and plan of care Patient Condition at Discharge: Stable Plan - Discharge Summary Discharge Rx Participant: Yes New Discharge Prescriptions: New metFORMIN HCL [Glucophage] 500 mg PO BID-W/MEALS 30 Days #60 tab Linagliptin [Tradjenta] 5 mg PO DAILY 30 Days #30 tablet Continue Atorvastatin [Lipitor] 40 mg PO HS Magnesium Oxide [Mag-Ox] 400 mg PO BID Allopurinol [Zyloprim] 300 mg PO DAILY Albuterol Sulfate [Proventil Hfa] 1 - 2 puff INHALATION RT-QID PRN PRN Reason: Shortness Of Breath Diazepam [Valium] 5 mg PO DAILY PRN PRN Reason: Anxiety Carvedilol [Coreg] 6.25 mg PO BID Levothyroxine Sodium [Synthroid] 125 mcg PO DAILY Gabapentin 600 mg PO BID@1600,2200 Levothyroxine Sodium [Synthroid] 112 mcg PO DAILY Nitroglycerin Sl Tabs [Nitrostat] 0.4 mg SUBLINGUAL Q5M PRN PRN Reason: Chest Pain Meclizine [Antivert] 12.5 mg PO DAILY PRN PRN Reason: Nausea Budesonide/Formoterol Fumarate [Symbicort 80-4.5 Mcg Inhaler] 1 puff INHALATION RT-BID Hydrocodone/Acetaminophen [[place] 7.5-325] 1 tab PO Q12H PRN PRN Reason: Pain Apixaban [Eliquis] 5 mg PO BID Discharge Medication List Allopurinol [Zyloprim] 300 mg PO DAILY 08/07/17 [History] Atorvastatin [Lipitor] 40 mg PO HS 08/07/17 [History] Magnesium Oxide [Mag-Ox] 400 mg PO BID 08/07/17 [History] Albuterol Sulfate [Proventil Hfa] 1 - 2 puff INHALATION RT-QID PRN 10/15/17 [History] Carvedilol [Coreg] 6.25 mg PO BID 10/02/18 [History] Diazepam [Valium] 5 mg PO DAILY PRN 10/02/18 [History] Gabapentin 600 mg PO BID@1600,2200 10/02/18 [History] Levothyroxine Sodium [Synthroid] 112 mcg PO DAILY 10/02/18 [History] Levothyroxine Sodium [Synthroid] 125 mcg PO DAILY 10/02/18 [History] Meclizine [Antivert] 12.5 mg PO DAILY PRN 10/02/18 [History] Nitroglycerin Sl Tabs [Nitrostat] 0.4 mg SUBLINGUAL Q5M PRN 10/02/18 [History] Apixaban [Eliquis] 5 mg PO BID 11/07/19 [History] Budesonide/Formoterol Fumarate [Symbicort 80-4.5 Mcg Inhaler] 1 puff INHALATION RT-BID 11/07/19 [History] Hydrocodone/Acetaminophen [[place] 7.5-325] 1 tab PO Q12H PRN 11/07/19 [History] Linagliptin [Tradjenta] 5 mg PO DAILY 30 Days #30 tablet 11/10/19 [Rx] metFORMIN HCL [Glucophage] 500 mg PO BID-W/MEALS 30 Days #60 tab 11/10/19 [Rx] Follow up Appointment(s)/Referral(s): Teresa Walter MD [Primary Care Provider] - 1-2 days Bonnie Patterson MD [STAFF PHYSICIAN] - 1 Week Patient Instructions/Handouts: Meal Planning with Diabetes Exchanges (DC) Activity/Diet/Wound Care/Special Instructions: Activity as tolerated Diet diabetic consistent carb Discharge Disposition: HOME SELF-CARE
[2019-11-10] MEDS: GABAPENTIN 400 MG CAP PO SCH (15:35)
[2019-11-10 16:21] VITALS: BP 133/72; PULSE 57
[2019-11-10] MEDS ORDERED: metFORMIN 500 MG TAB PO SCH (17:30)
[2019-11-11] MEDS ORDERED: LINAGLIPTIN 5 MG TABLET PO SCH (09:00)
--- NOTE | 2019-11-18 11:28 | CDI ---
Documentation Clarification Form Date: 11/18/19 From: Cheryl Herr CCS Phone: If you have a question about this query, please contact Kaylin Caputo, Sheet Metal Layout Mechanic at [phone] between 8am and 5pm. Admit Date: 11/09/19 Discharge Date: 11/10/19 Patient Name: Patrick Banuelos Visit Number: [id number] ATTENTION: The Clinical Documentation Specialists (CDI) and [facility] Coding Staff appreciate your assistance in clarifying documentation. Please respond to the clarification below the line at the bottom and electronically sign. The CDI & [facility] Coding staff will review the response and follow-up if needed. Please note: Queries are made part of the Legal Health Record. If you have any questions, please contact the author of this message via ITS. Dear Dr. Mg, Left upper extremity weakness likely due to inflammatory process involving right wrist is documented in the discharge summary. Progress notes document left wrist and arm pain. Possible tendinitis, carpal tunnel syndrome or arthritic. Patient history/risk factors: Gout, Carpal Tunnel syndrome, CAD, DM, HTN Clinical Indicators: Generalized weakness, left upper extremity weakness Radiology: No osseous lesion, CVA ruled out Labs: Uric Acid 6.6, total protein 6.1 Treatment: Allopurinol 300 mg po daily, Gabapentin 1,200 mg po BID, Naproxen 250 mg po BID Clinical significance of diagnostic testing and treatment cannot be assumed or coded without physician documentation of the significance, if any. Signs or symptoms of an underlying condition should be coded only if not definite diagnosis is determined. In your professional opinion, can you please clarify the underlying cause of the patients symptoms, if known? Arthritis Carpal Tunnel Syndrome Tendinitis Other, please specify Unable to determine unable to determine MTDD
== END 2019-11-10 16:57 | disposition home or self-care (01) | DRG 948 ==
LOC: EC 13:22 → 3SCARD 15:45 → OBSVTOIN 11-09 13:58
PROVIDERS: ADMIT Internal Medicine; ATTEND Internal Medicine
DX: R53.1 Weakness (principal); I45.2 Bifascicular block; E87.1 Hypo-osmolality and hyponatremia; M19.031 Primary osteoarthritis, right wrist; I48.0 Paroxysmal atrial fibrillation; J44.9 Chronic obstructive pulmonary disease, unspecified; I25.10 Atherosclerotic heart disease of native coronary artery without angina pectoris; I10 Essential (primary) hypertension; E11.42 Type 2 diabetes mellitus with diabetic polyneuropathy; E11.65 Type 2 diabetes mellitus with hyperglycemia; M10.9 Gout, unspecified; E03.9 Hypothyroidism, unspecified; E78.5 Hyperlipidemia, unspecified; E66.9 Obesity, unspecified; E86.0 Dehydration; I65.23 Occlusion and stenosis of bilateral carotid arteries; G31.9 Degenerative disease of nervous system, unspecified; M77.9 Enthesopathy, unspecified; G56.03 Carpal tunnel syndrome, bilateral upper limbs; I25.2 Old myocardial infarction; Z68.32 Body mass index [BMI] 32.0-32.9, adult; Z79.01 Long term (current) use of anticoagulants; Z79.890 Hormone replacement therapy; Z79.51 Long term (current) use of inhaled steroids; Z79.899 Other long term (current) drug therapy; Z87.19 Personal history of other diseases of the digestive system; Z90.49 Acquired absence of other specified parts of digestive tract; Z87.01 Personal history of pneumonia (recurrent); Z95.5 Presence of coronary angioplasty implant and graft; Z95.1 Presence of aortocoronary bypass graft; Z98.890 Other specified postprocedural states; Z96.652 Presence of left artificial knee joint; Z87.891 Personal history of nicotine dependence; Z87.81 Personal history of (healed) traumatic fracture; Z91.81 History of falling; Z71.3 Dietary counseling and surveillance; Z88.8 Allergy status to other drugs, medicaments and biological substances; Z88.1 Allergy status to other antibiotic agents; Z88.5 Allergy status to narcotic agent; Z91.013 Allergy to seafood; Z83.3 Family history of diabetes mellitus; Z82.49 Family history of ischemic heart disease and other diseases of the circulatory system; Z82.3 Family history of stroke
CPT/HCPCS: 36415; 70450; 71046; 78452; 80053; 80061; 81003; 83036; 83605; 83735; 83880; 84484; 84550; 84560; 85025; 85610; 85730; 93005; 93017; 93880; 94640; 99285

== ENCOUNTER 2020-01-23 13:00 | Emergency (ER) | payer MEDICARE ==
[2020-01-23 13:07] VITALS: BP 152/86; PULSE 74; RESP 18; TEMP 97.6
[2020-01-23 13:56] LABS: Appearance,Urine Clear (Clear); Bilirubin,Urine Negative (Negative); Blood,Urine Small (Negative); Color,Urine Yellow; Glucose,Urine (UA) Negative (Negative); Ketones,Urine Negative (Negative); Leukocyte Esterase,Urine Trace (Negative); Mucus,Urine Rare /hpf; Nitrite,Urine Negative (Negative); PH, Urine 5.5 (5.0-8.0); Protein,Urine 1+ (Negative); RBC,Urine 3 /hpf (0-5); Specific Gravity,Urine 1.017 (1.001-1.035); Urobilinogen,Urine <2.0 mg/dL (<2.0); WBC,Urine 2 /hpf (0-5)
--- NOTE | 2020-01-23 14:09 | ED ---
Male Urogenital HPI - General Chief complaint: Urogenital Stated complaint: Urogenital Time Seen by Provider: 01/23/20 13:03 Source: patient, RN notes reviewed Mode of arrival: ambulatory Limitations: no limitations - History of Present Illness Initial comments: This a 74-year-old male presents emergency Department with chief complaint of penile irritation. Patient states that last couple days she's noticed some pain and burning at the tip of his urethra. Patient states he did a telemedicine visit with his PCP who told him it was probably fungal. He states that his been using Vagisil as directed by PCP. Patient states that he is unsure he possibly could've this scraped it is uses a urinal frequently at home. He does admit that he's had a circumcision only in abdominal fluid secondary to excessive foreskin. Patient denies fevers or chills he states the only pain is at typical urticaria has no abdominal plain no flank pain - Related Data Home Medications Medication Instructions Recorded Confirmed Allopurinol [Zyloprim] 300 mg PO DAILY 08/07/17 11/07/19 Atorvastatin [Lipitor] 40 mg PO HS 08/07/17 11/07/19 Magnesium Oxide [Mag-Ox] 400 mg PO BID 08/07/17 11/07/19 Albuterol Sulfate [Proventil Hfa] 1 - 2 puff INHALATION RT-QID PRN 10/15/17 11/07/19 Carvedilol [Coreg] 6.25 mg PO BID 10/02/18 11/07/19 Diazepam [Valium] 5 mg PO DAILY PRN 10/02/18 11/07/19 Gabapentin 600 mg PO BID@1600,2200 10/02/18 11/07/19 Levothyroxine Sodium [Synthroid] 112 mcg PO DAILY 10/02/18 11/07/19 Levothyroxine Sodium [Synthroid] 125 mcg PO DAILY 10/02/18 11/07/19 Meclizine [Antivert] 12.5 mg PO DAILY PRN 10/02/18 11/07/19 Nitroglycerin Sl Tabs [Nitrostat] 0.4 mg SUBLINGUAL Q5M PRN 10/02/18 11/07/19 Apixaban [Eliquis] 5 mg PO BID 11/07/19 11/07/19 Budesonide/Formoterol Fumarate 1 puff INHALATION RT-BID 11/07/19 11/07/19 [Symbicort 80-4.5 Mcg Inhaler] Hydrocodone/Acetaminophen [[place] 1 tab PO Q12H PRN 11/07/19 11/07/19 7.5-325] Previous Rx's Medication Instructions Recorded Linagliptin [Tradjenta] 5 mg PO DAILY 30 Days #30 tablet 11/10/19 metFORMIN HCL [Glucophage] 500 mg PO BID-W/MEALS 30 Days #60 11/10/19 tab Mupirocin 2% Oint [Bactroban 2% 1 applic TOPICAL TID #22 gm 01/23/20 Oint] Nystatin 100,000Unit/gm Cream 1 applic TOPICAL BID #30 gram 01/23/20 [Mycostatin Cream] Allergies Allergy/AdvReac Type Severity Reaction Status Date / Time cephalexin [From Keflex] Allergy Unknown Verified 01/23/20 13:06 clopidogrel [From Plavix] Allergy Unknown Verified 01/23/20 13:06 Iodine and Iodide Containing Allergy Unknown Verified 01/23/20 13:06 Produc levofloxacin [From Levaquin] Allergy Unknown Verified 01/23/20 13:06 shellfish derived [Shellfish] Allergy Unknown Verified 01/23/20 13:06 solifenacin Allergy Unknown Verified 01/23/20 13:06 codeine AdvReac Nausea & Verified 01/23/20 13:06 Vomiting oxycodone AdvReac Hallucinati Verified 01/23/20 13:06 ons Review of Systems ROS Statement: Those systems with pertinent positive or pertinent negative responses have been documented in the HPI. ROS Other: All systems not noted in ROS Statement are negative. Past Medical History Past Medical History: Atrial Fibrillation, Asthma, Coronary Artery Disease (CAD), COPD, Diabetes Mellitus, Hypertension, Myocardial Infarction ([place]), Pneumonia Additional Past Medical History / Comment(s): left knee cap broken, pancreatitis, /gallstones(sx done). no longer takes meds for dm, x2 mi's(1991 ans 2017), pt stated utd on pne vaccine investment underwriter unable to verify date Last Myocardial Infarction Date:: 2017 History of Any Multi-Drug Resistant Organisms: None Reported Past Surgical History: Cholecystectomy, Coronary Bypass/CABG, Heart Catheterization With Stent, Hernia Repair, Orthopedic Surgery Additional Past Surgical History / Comment(s): tooth extractions, lt knee replacement(total of 3 sx), colonoscopy, picc line-since removed Past Anesthesia/Blood Transfusion Reactions: No Reported Reaction Date of Last Stent Placement:: 10/2015 Past Psychological History: No Psychological Hx Reported Smoking Status: Former smoker Past Alcohol Use History: Occasional Past Drug Use History: None Reported - Past Family History Father Family Medical History: Diabetes Mellitus Mother Family Medical History: CVA/TIA, Hypertension General Exam Limitations: no limitations General appearance: alert, in no apparent distress Head exam: Present: atraumatic, normocephalic, normal inspection Respiratory exam: Present: normal lung sounds bilaterally. Absent: respiratory distress, wheezes, rales, rhonchi, stridor Cardiovascular Exam: Present: regular rate, normal rhythm, normal heart sounds. Absent: systolic murmur, diastolic murmur, rubs, gallop, clicks GI/Abdominal exam: Present: soft, normal bowel sounds. Absent: distended, ten derness, guarding, rebound, rigid exam: Present: circumcision, other (There is erythema, erosion of the skin noted on the glans, no lesions or sores proximal). Absent: testicular tenderness, urethral discharge, vertical testicular lie Course Vital Signs 01/23/20 13:04 Temperature 97.6 F Pulse Rate 74 Respiratory 18 Rate Blood Pressure 152/86 O2 Sat by Pulse 96 Oximetry Medical Decision Making - Medical Decision Making Patient's urinalysis is essentially unremarkable. Patient does have evidence of balantitis. There is concern this may be bacterial versus fungal. Patient was started on nystatin and Bactroban. Patient will follow-up with PCP. - Lab Data Lab Results 01/23/20 Range/Units 13:20 Urine Color Yellow Urine Appearance Clear (Clear) Urine pH 5.5 (5.0-8.0) Ur Specific [place] 1.017 (1.001-1.035) Urine Protein 1+ H (Negative) Urine Glucose (UA) Negative (Negative) Urine Ketones Negative (Negative) Urine Blood Small H (Negative) Urine Nitrite Negative (Negative) Urine Bilirubin Negative (Negative) Urine Urobilinogen <2.0 (<2.0) mg/dL Ur Leukocyte Esterase Trace H (Negative) Urine RBC 3 (0-5) /hpf Urine WBC 2 (0-5) /hpf Urine Mucus Rare H (None) /hpf Disposition Clinical Impression: Balanitis Disposition: HOME SELF-CARE Condition: Stable Instructions (If sedation given, give patient instructions): Balanitis (ED) Additional Instructions: Please return to the Emergency Department if symptoms worsen or any other concerns. Prescriptions: Mupirocin 2% Oint [Bactroban 2% Oint] 1 applic TOPICAL TID #22 gm Nystatin 100,000Unit/gm Cream [Mycostatin Cream] 1 applic TOPICAL BID #30 gram Is patient prescribed a controlled substance at d/c from ED?: No Referrals: Teresa Walter MD [Primary Care Provider] - 1-2 days Jimbo Cano MD [STAFF PHYSICIAN] - 1-2 days Time of Disposition: 14:09
== END 2020-01-23 14:18 | disposition home or self-care (01) ==
LOC: EC 13:00
DX: N48.1 Balanitis (principal); I48.91 Unspecified atrial fibrillation; I25.10 Atherosclerotic heart disease of native coronary artery without angina pectoris; J44.9 Chronic obstructive pulmonary disease, unspecified; I10 Essential (primary) hypertension; I25.2 Old myocardial infarction; Z79.02 Long term (current) use of antithrombotics/antiplatelets; Z79.899 Other long term (current) drug therapy; Z79.890 Hormone replacement therapy; Z79.01 Long term (current) use of anticoagulants; Z79.51 Long term (current) use of inhaled steroids; Z88.1 Allergy status to other antibiotic agents; Z88.8 Allergy status to other drugs, medicaments and biological substances; Z91.048 Other nonmedicinal substance allergy status; Z88.5 Allergy status to narcotic agent; Z91.013 Allergy to seafood; Z95.1 Presence of aortocoronary bypass graft; Z87.891 Personal history of nicotine dependence; Z95.5 Presence of coronary angioplasty implant and graft; Z96.652 Presence of left artificial knee joint
CPT/HCPCS: 81001; 99283

== ENCOUNTER 2020-04-07 10:48 | Emergency (ER) | payer MEDICARE ==
--- NOTE | 2020-04-07 12:10 | ED ---
General Adult HPI - General Chief complaint: Skin/Abscess/Foreign Body Stated complaint: rt arm swelling, pain Time Seen by Provider: 04/07/20 11:09 Source: patient Mode of arrival: wheelchair Limitations: no limitations - History of Present Illness Initial comments: Patient 74-year-old male presenting to emergency department with a chief complaint of right arm rash. Patient states this started about 2-3 days ago with gradual increase in severity. States initially started in the right antecubital region now has spread proximally and distally. States it is very itchy and now it is warm. Reports he clearly demarcated border. Denies any night sweats, fevers or chills. Patient also reports is not able to fully extend his elbow at the same time. Also patient reports not the rash is also on the left upper extremity. - Related Data Home Medications Medication Instructions Recorded Confirmed Allopurinol [Zyloprim] 300 mg PO DAILY 08/07/17 11/07/19 Atorvastatin [Lipitor] 40 mg PO HS 08/07/17 11/07/19 Magnesium Oxide [Mag-Ox] 400 mg PO BID 08/07/17 11/07/19 Albuterol Sulfate [Proventil Hfa] 1 - 2 puff INHALATION RT-QID PRN 10/15/17 11/07/19 Carvedilol [Coreg] 6.25 mg PO BID 10/02/18 11/07/19 Diazepam [Valium] 5 mg PO DAILY PRN 10/02/18 11/07/19 Gabapentin 600 mg PO BID@1600,2200 10/02/18 11/07/19 Levothyroxine Sodium [Synthroid] 112 mcg PO DAILY 10/02/18 11/07/19 Levothyroxine Sodium [Synthroid] 125 mcg PO DAILY 10/02/18 11/07/19 Meclizine [Antivert] 12.5 mg PO DAILY PRN 10/02/18 11/07/19 Nitroglycerin Sl Tabs [Nitrostat] 0.4 mg SUBLINGUAL Q5M PRN 10/02/18 11/07/19 Apixaban [Eliquis] 5 mg PO BID 11/07/19 11/07/19 Budesonide/Formoterol Fumarate 1 puff INHALATION RT-BID 11/07/19 11/07/19 [Symbicort 80-4.5 Mcg Inhaler] Hydrocodone/Acetaminophen [[place] 1 tab PO Q12H PRN 11/07/19 11/07/19 7.5-325] Previous Rx's Medication Instructions Recorded Linagliptin [Tradjenta] 5 mg PO DAILY 30 Days #30 tablet 11/10/19 metFORMIN HCL [Glucophage] 500 mg PO BID-W/MEALS 30 Days #60 11/10/19 tab Mupirocin 2% Oint [Bactroban 2% 1 applic TOPICAL TID #22 gm 01/23/20 Oint] Nystatin 100,000Unit/gm Cream 1 applic TOPICAL BID #30 gram 01/23/20 [Mycostatin Cream] Hydrocortisone Cream 1 applic TOPICAL TID #1 bottle 04/07/20 [Hydrocortisone 2.5% Cream] Sulfamethox-Tmp 800-160Mg [Bactrim 1 each PO Q12HR #20 tab 04/07/20 Ds] Allergies Allergy/AdvReac Type Severity Reaction Status Date / Time cephalexin [From Keflex] Allergy Unknown Verified 04/07/20 11:01 clopidogrel [From Plavix] Allergy Unknown Verified 04/07/20 11:01 Iodine and Iodide Containing Allergy Unknown Verified 04/07/20 11:01 Produc levofloxacin [From Levaquin] Allergy Unknown Verified 04/07/20 11:01 shellfish derived [Shellfish] Allergy Unknown Verified 04/07/20 11:01 solifenacin Allergy Unknown Verified 04/07/20 11:01 codeine AdvReac Nausea & Verified 04/07/20 11:01 Vomiting oxycodone AdvReac Hallucinati Verified 04/07/20 11:01 ons Review of Systems ROS Statement: Those systems with pertinent positive or pertinent negative responses have been documented in the HPI. ROS Other: All systems not noted in ROS Statement are negative. Past Medical History Past Medical History: Atrial Fibrillation, Asthma, Coronary Artery Disease (CAD), COPD, Diabetes Mellitus, Hypertension, Myocardial Infarction ([place]), Pneumonia Additional Past Medical History / Comment(s): left knee cap broken, pancreatitis, /gallstones(sx done). no longer takes meds for dm, x2 mi's(1991 ans 2017), pt stated utd on pne vaccine personal lines underwriter unable to verify date Last Myocardial Infarction Date:: 2017 History of Any Multi-Drug Resistant Organisms: None Reported Past Surgical History: Cholecystectomy, Coronary Bypass/CABG, Heart Catheterization With Stent, Hernia Repair, Orthopedic Surgery Additional Past Surgical History / Comment(s): tooth extractions, lt knee replacement(total of 3 sx), colonoscopy, picc line-since removed Past Anesthesia/Blood Transfusion Reactions: No Reported Reaction Date of Last Stent Placement:: 10/2015 Past Psychological History: No Psychological Hx Reported Smoking Status: Former smoker Past Alcohol Use History: Occasional Past Drug Use History: None Reported - Past Family History Father Family Medical History: Diabetes Mellitus Mother Family Medical History: CVA/TIA, Hypertension General Exam Limitations: no limitations General appearance: alert, in no apparent distress Head exam: Present: atraumatic, normocephalic, normal inspection Eye exam: Present: normal appearance, PERRL, EOMI Pupils: Present: normal accommodation ENT exam: Present: normal exam, normal oropharynx, mucous membranes moist Neck exam: Present: normal inspection, full ROM Respiratory exam: Present: normal lung sounds bilaterally. Absent: respiratory distress, wheezes, rales Cardiovascular Exam: Present: regular rate, normal rhythm, normal heart sounds Extremities exam: Present: full ROM, tenderness (Mild tenderness at the right elbow. Low suspicion for septic elbow.), normal capillary refill, other (+2 ulnar radial pulses bilaterally.). Absent: normal inspection (Clear demarcated border with erythema and a slight temperature difference.), joint swelling Back exam: Present: normal inspection, full ROM Neurological exam: Present: alert, oriented X3 Psychiatric exam: Present: normal affect, normal mood Skin exam: Present: warm, dry, intact, normal color Course Vital Signs 04/07/20 04/07/20 10:56 12:50 Temperature 97.7 F 96.6 F L Pulse Rate 70 67 Respiratory 18 16 Rate Blood Pressure 130/76 119/71 O2 Sat by Pulse 96 94 L Oximetry Medical Decision Making - Medical Decision Making Patient is 74-year-old male presenting to the emergency department with the chief complaint of a rash. There is a rash located on the anterior aspect of the right upper extremity with a clear demarcated border. It is itchy and sli ghtly painful. also examined the patient and diagnosed with erysipelas. He advised topical steroids and antibiotics. Patient will be started on Bactrim. Return parameters were thoroughly discussed the patient is understanding and agreeable. Advised to follow-up with the primary care. Case discussed physician. Disposition Clinical Impression: Erysipelas of right lower extremity Disposition: HOME SELF-CARE Condition: Stable Instructions (If sedation given, give patient instructions): Cellulitis (DC) Additional Instructions: Take prescribed medication and use as directed. Return to emergency department if symptoms worsen. Follow with primary care. Monitor your blood glucose levels. Prescriptions: Sulfamethox-Tmp 800-160Mg [Bactrim Ds] 1 each PO Q12HR #20 tab Hydrocortisone Cream [Hydrocortisone 2.5% Cream] 1 applic TOPICAL TID #1 bottle Is patient prescribed a controlled substance at d/c from ED?: No Referrals: Teresa Walter MD [Primary Care Provider] - 1-2 days Time of Disposition: 12:10
[2020-04-07 12:52] VITALS: BP 119/71; PULSE 67; RESP 16; TEMP 96.6
== END 2020-04-07 12:51 | disposition home or self-care (01) ==
LOC: EC 10:48
DX: A46 Erysipelas (principal); R21 Rash and other nonspecific skin eruption; I48.91 Unspecified atrial fibrillation; I25.10 Atherosclerotic heart disease of native coronary artery without angina pectoris; J44.9 Chronic obstructive pulmonary disease, unspecified; I10 Essential (primary) hypertension; I25.2 Old myocardial infarction; Z95.1 Presence of aortocoronary bypass graft; Z95.5 Presence of coronary angioplasty implant and graft; Z96.652 Presence of left artificial knee joint; Z87.891 Personal history of nicotine dependence; Z79.890 Hormone replacement therapy; Z79.01 Long term (current) use of anticoagulants; Z79.51 Long term (current) use of inhaled steroids; Z79.899 Other long term (current) drug therapy; Z88.1 Allergy status to other antibiotic agents; Z88.8 Allergy status to other drugs, medicaments and biological substances; Z91.048 Other nonmedicinal substance allergy status; Z91.013 Allergy to seafood; Z88.5 Allergy status to narcotic agent
CPT/HCPCS: 99283

== ENCOUNTER 2020-04-22 22:24 | Emergency (ER) | payer MEDICARE ==
[2020-04-22 22:31] VITALS: BP 121/80; PULSE 70; RESP 16; TEMP 98.2
[2020-04-22] MEDS ORDERED: methylPREDNISolone SOD SUCCI 125 MG/2 ML VIAL IM ONE (23:12)
--- NOTE | 2020-04-22 23:16 | ED ---
Skin/Abscess/FB HPI - General Chief complaint: Skin/Abscess/Foreign Body Stated complaint: Rash Time Seen by Provider: 04/22/20 22:36 Source: patient Mode of arrival: ambulatory Limitations: no limitations - History of Present Illness Initial comments: Patient is a 74-year-old male presenting to the emergency department with complaint of a rash on his bilateral forearms as well as developing on his right upper leg. Patient states this started approximately 2 weeks ago, he did come to the ER and was given hydrocortisone cream to use as well as recommended to take Benadryl. He states he has been scratching of the areas and is worried he can give himself an infection. Patient did just finish a course of Bactrim. He denies any recent fever or chills. He is not sure what is causing this rash. He does have an appointment with his PCP in a few weeks and is just requesting something to help with the itching. He denies any other complaints at this time. - Related Data Home Medications Medication Instructions Recorded Confirmed Allopurinol [Zyloprim] 300 mg PO DAILY 08/07/17 11/07/19 Atorvastatin [Lipitor] 40 mg PO HS 08/07/17 11/07/19 Magnesium Oxide [Mag-Ox] 400 mg PO BID 08/07/17 11/07/19 Albuterol Sulfate [Proventil Hfa] 1 - 2 puff INHALATION RT-QID PRN 10/15/17 11/07/19 Carvedilol [Coreg] 6.25 mg PO BID 10/02/18 11/07/19 Diazepam [Valium] 5 mg PO DAILY PRN 10/02/18 11/07/19 Gabapentin 600 mg PO BID@1600,2200 10/02/18 11/07/19 Levothyroxine Sodium [Synthroid] 112 mcg PO DAILY 10/02/18 11/07/19 Levothyroxine Sodium [Synthroid] 125 mcg PO DAILY 10/02/18 11/07/19 Meclizine [Antivert] 12.5 mg PO DAILY PRN 10/02/18 11/07/19 Nitroglycerin Sl Tabs [Nitrostat] 0.4 mg SUBLINGUAL Q5M PRN 10/02/18 11/07/19 Apixaban [Eliquis] 5 mg PO BID 11/07/19 11/07/19 Budesonide/Formoterol Fumarate 1 puff INHALATION RT-BID 11/07/19 11/07/19 [Symbicort 80-4.5 Mcg Inhaler] Hydrocodone/Acetaminophen [[place] 1 tab PO Q12H PRN 11/07/19 11/07/19 7.5-325] Previous Rx's Medication Instructions Recorded Linagliptin [Tradjenta] 5 mg PO DAILY 30 Days #30 tablet 11/10/19 metFORMIN HCL [Glucophage] 500 mg PO BID-W/MEALS 30 Days #60 11/10/19 tab Mupirocin 2% Oint [Bactroban 2% 1 applic TOPICAL TID #22 gm 01/23/20 Oint] Nystatin 100,000Unit/gm Cream 1 applic TOPICAL BID #30 gram 01/23/20 [Mycostatin Cream] Hydrocortisone Cream 1 applic TOPICAL TID #1 bottle 04/07/20 [Hydrocortisone 2.5% Cream] Sulfamethox-Tmp 800-160Mg [Bactrim 1 each PO Q12HR #20 tab 04/07/20 Ds] methylPREDNISolone [Medrol Dose 4 mg PO DIRECTED #1 pack 04/22/20 Pack] Allergies Allergy/AdvReac Type Severity Reaction Status Date / Time cephalexin [From Keflex] Allergy Unknown Verified 04/22/20 22:32 clopidogrel [From Plavix] Allergy Unknown Verified 04/22/20 22:32 Iodine and Iodide Containing Allergy Unknown Verified 04/22/20 22:32 Produc levofloxacin [From Levaquin] Allergy Unknown Verified 04/22/20 22:32 shellfish derived [Shellfish] Allergy Unknown Verified 04/22/20 22:32 solifenacin Allergy Unknown Verified 04/22/20 22:32 codeine AdvReac Nausea & Verified 04/22/20 22:32 Vomiting oxycodone AdvReac Hallucinati Verified 04/22/20 22:32 ons Review of Systems ROS Statement: Those systems with pertinent positive or pertinent negative responses have been documented in the HPI. ROS Other: All systems not noted in ROS Statement are negative. Past Medical History Past Medical History: Atrial Fibrillation, Asthma, Coronary Artery Disease (CAD), COPD, Diabetes Mellitus, Hypertension, Myocardial Infarction ([place]), Pneumonia Additional Past Medical History / Comment(s): left knee cap broken, pancreatitis, /gallstones(sx done). 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 verify date Last Myocardial Infarction Date:: 2017 History of Any Multi-Drug Resistant Organisms: None Reported Past Surgical History: Cholecystectomy, Coronary Bypass/CABG, Heart Catheterization With Stent, Hernia Repair, Orthopedic Surgery Additional Past Surgical History / Comment(s): tooth extractions, lt knee replacement(total of 3 sx), colonoscopy, picc line-since removed Past Anesthesia/Blood Transfusion Reactions: No Reported Reaction Date of Last Stent Placement:: 10/2015 Past Psychological History: No Psychological Hx Reported Smoking Status: Former smoker Past Alcohol Use History: Occasional Past Drug Use History: None Reported - Past Family History Father Family Medical History: Diabetes Mellitus Mother Family Medical History: CVA/TIA, Hypertension General Exam - General Exam Comments Initial Comments: GENERAL: Well-appearing, well-nourished and in no acute distress. HEAD: Atraumatic, normocephalic. EYES: Pupils equal round and reactive to light, extraocular movements intact, sclera anicteric, conjunctiva are normal. ENT: TMs normal, nares patent, oropharynx clear without exudates. Moist mucous membranes. NECK: Normal range of motion, supple without lymphadenopathy or JVD. LUNGS: Breath sounds clear to auscultation bilaterally and equal. No wheezes rales or rhonchi. HEART: Regular rate and rhythm without murmurs, rubs or gallops. ABDOMEN: Soft, nontender, normoactive bowel sounds. No guarding, no rebound. No masses appreciated. : Deferred EXTREMITIES: Normal range of motion, no pitting or edema. No clubbing or cyanosis. NEUROLOGICAL: Normal speech, normal gait. PSYCH: Normal mood, normal affect. SKIN: Warm, Dry, normal turgor,. Patient does have an erythematous hive rash on his right upper leg as well as a mild rash on his bilateral forearms. There is no obvious infections. There is some mild bruising secondary to being on blood thinners and scratching at the areas. Limitations: no limitations Course Vital Signs 04/22/20 04/22/20 22:30 23:21 Temperature 98.2 F 98.2 F Pulse Rate 70 70 Respiratory 16 16 Rate Blood Pressure 121/80 121/80 O2 Sat by Pulse 96 96 Oximetry Medical Decision Making - Medical Decision Making Patient is a 74-year-old male here with a rash in his bilateral forearms as well as his right upper leg. He has already been taking Benadryl and using hydrocortisone topical cream. I will give patient a shot of solu-medrol in the ER and send for a Medrol Dosepak to his pharmacy. He will follow up with his PCP. He will also check his sugars more frequently. Patient is in agreement with this plan of care. He is stable for discharge. Return parameters were discussed with the patient and he verbalized understanding. Disposition Clinical Impression: Hives, Rash Disposition: HOME SELF-CARE Condition: Stable Instructions (If sedation given, give patient instructions): Dermatitis (ED) Additional Instructions: Please return to the Emergency Department if symptoms worsen or any other concerns. Take steroids as prescribed. Please check blood sugar levels as discussed. May take Benadryl at night for itching. Follow up with PCP. Prescriptions: methylPREDNISolone [Medrol Dose Pack] 4 mg PO DIRECTED #1 pack Is patient prescribed a controlled substance at d/c from ED?: No Referrals: Teresa Walter MD [Primary Care Provider] - 1-2 days
== END 2020-04-22 23:33 | disposition home or self-care (01) ==
LOC: EC 22:24
DX: L50.9 Urticaria, unspecified (principal); I48.91 Unspecified atrial fibrillation; I25.10 Atherosclerotic heart disease of native coronary artery without angina pectoris; J44.9 Chronic obstructive pulmonary disease, unspecified; I10 Essential (primary) hypertension; I25.2 Old myocardial infarction; E11.9 Type 2 diabetes mellitus without complications; Z79.01 Long term (current) use of anticoagulants; Z79.51 Long term (current) use of inhaled steroids; Z79.890 Hormone replacement therapy; Z79.02 Long term (current) use of antithrombotics/antiplatelets; Z79.899 Other long term (current) drug therapy; Z88.1 Allergy status to other antibiotic agents; Z88.8 Allergy status to other drugs, medicaments and biological substances; Z91.041 Radiographic dye allergy status; Z88.5 Allergy status to narcotic agent; Z91.013 Allergy to seafood; Z95.1 Presence of aortocoronary bypass graft; Z87.891 Personal history of nicotine dependence
CPT/HCPCS: 99282; 96372; J2930

== ENCOUNTER 2020-08-19 12:46 | Emergency (ER) | payer MEDICARE ==
[2020-08-19 12:56] VITALS: RESP 18; TEMP 97.8
[2020-08-19] MEDS ORDERED: SODIUM CHLORIDE 0.9% 1,000 ML IV STA (13:30)
[2020-08-19] MEDS ORDERED: MECLIZINE 12.5 MG TAB PO STA ×2 (13:31→17:11)
--- NOTE | 2020-08-19 13:33 | ED ---
General Adult HPI - General Chief complaint: Dizziness Stated complaint: Weakness Time Seen by Provider: 08/19/20 12:50 Source: patient, EMS Mode of arrival: EMS - History of Present Illness Initial comments: 74-year-old male with a past medical history of atrial fibrillation, asthma, COPD, diabetes mellitus presents to the emergency room for a chief complaint of dizziness. Patient states this started this morning after his was taken to the hospital. Patient states it feels like the room is spinning. Patient states that he opens his eyes this worsens. States when he moves positions or moves his head at this dizziness intensifies. Patient states he feels nauseous. Patient has a history of vertigo. He states this feels like his vertigo. States he needs Antivert.Patient has no other complaints at this time including shortness of breath, chest pain, abdominal pain, nausea or vomiting, headache, or visual changes. - Related Data Home Medications Medication Instructions Recorded Confirmed Allopurinol [Zyloprim] 300 mg PO DAILY 08/07/17 11/07/19 Atorvastatin [Lipitor] 40 mg PO HS 08/07/17 11/07/19 Magnesium Oxide [Mag-Ox] 400 mg PO BID 08/07/17 11/07/19 Albuterol Sulfate [Proventil Hfa] 1 - 2 puff INHALATION RT-QID PRN 10/15/17 11/07/19 Carvedilol [Coreg] 6.25 mg PO BID 10/02/18 11/07/19 Gabapentin 600 mg PO BID@1600,2200 10/02/18 11/07/19 Levothyroxine Sodium [Synthroid] 112 mcg PO DAILY 10/02/18 11/07/19 Levothyroxine Sodium [Synthroid] 125 mcg PO DAILY 10/02/18 11/07/19 Meclizine [Antivert] 12.5 mg PO DAILY PRN 10/02/18 11/07/19 Nitroglycerin Sl Tabs [Nitrostat] 0.4 mg SUBLINGUAL Q5M PRN 10/02/18 11/07/19 diazePAM [Valium] 5 mg PO DAILY PRN 10/02/18 11/07/19 Apixaban [Eliquis] 5 mg PO BID 11/07/19 11/07/19 Budesonide/Formoterol Fumarate 1 puff INHALATION RT-BID 11/07/19 11/07/19 [Symbicort 80-4.5 Mcg Inhaler] Hydrocodone/Acetaminophen [[place] 1 tab PO Q12H PRN 11/07/19 11/07/19 7.5-325] Previous Rx's Medication Instructions Recorded Linagliptin [Tradjenta] 5 mg PO DAILY 30 Days #30 tablet 11/10/19 metFORMIN HCL [Glucophage] 500 mg PO BID-W/MEALS 30 Days #60 11/10/19 tab Mupirocin 2% Oint [Bactroban 2% 1 applic TOPICAL TID #22 gm 01/23/20 Oint] Nystatin 100,000Unit/gm Cream 1 applic TOPICAL BID #30 gram 01/23/20 [Mycostatin Cream] Hydrocortisone Cream 1 applic TOPICAL TID #1 bottle 04/07/20 [Hydrocortisone 2.5% Cream] Sulfamethox-Tmp 800-160Mg [Bactrim 1 each PO Q12HR #20 tab 04/07/20 Ds] methylPREDNISolone [Medrol Dose 4 mg PO DIRECTED #1 pack 04/22/20 Pack] Meclizine [Antivert] 25 mg PO TID PRN #20 tab 08/19/20 Allergies Allergy/AdvReac Type Severity Reaction Status Date / Time cephalexin [From Keflex] Allergy Unknown Verified 04/22/20 22:32 clopidogrel [From Plavix] Allergy Unknown Verified 04/22/20 22:32 Iodine and Iodide Containing Allergy Unknown Verified 04/22/20 22:32 Produc levofloxacin [From Levaquin] Allergy Unknown Verified 04/22/20 22:32 shellfish derived [Shellfish] Allergy Unknown Verified 04/22/20 22:32 solifenacin Allergy Unknown Verified 04/22/20 22:32 codeine AdvReac Nausea & Verified 04/22/20 22:32 Vomiting oxycodone AdvReac Hallucinati Verified 04/22/20 22:32 ons Review of Systems ROS Statement: Those systems with pertinent positive or pertinent negative responses have been documented in the HPI. ROS Other: All systems not noted in ROS Statement are negative. Past Medical History Past Medical History: Atrial Fibrillation, Asthma, Coronary Artery Disease (CAD), COPD, Diabetes Mellitus, Hypertension, Myocardial Infarction ([place]), Pneumonia Additional Past Medical History / Comment(s): left knee cap broken, pancreatitis, /gallstones(sx done). no longer takes meds for dm, x2 mi's(1991 ans 2017), pt stated utd on pne vaccine publicity writer unable to verify date Last Myocardial Infarction Date:: 2017 History of Any Multi-Drug Resistant Organisms: None Reported Past Surgical History: Cholecystectomy, Coronary Bypass/CABG, Heart Catheterization With Stent, Hernia Repair, Orthopedic Surgery Additional Past Surgical History / Comment(s): tooth extractions, lt knee replacement(total of 3 sx), colonoscopy, picc line-since removed Past Anesthesia/Blood Transfusion Reactions: No Reported Reaction Date of Last Stent Placement:: 10/2015 Past Psychological History: No Psychological Hx Reported Past Alcohol Use History: Occasional Past Drug Use History: None Reported - Past Family History Father Family Medical History: Diabetes Mellitus Mother Family Medical History: CVA/TIA, Hypertension General Exam General appearance: alert, in no apparent distress Head exam: Present: atraumatic Eye exam: Present: normal appearance, PERRL, EOMI. Absent: scleral icterus, conjunctival injection, periorbital swelling ENT exam: Present: normal exam, mucous membranes moist Neck exam: Present: normal inspection. Absent: tenderness, meningismus, lymphadenopathy Respiratory exam: Present: normal lung sounds bilaterally. Absent: respiratory distress, wheezes, rales, rhonchi, stridor Cardiovascular Exam: Present: regular rate, normal rhythm, normal heart sounds. Absent: systolic murmur, diastolic murmur, rubs, gallop, clicks GI/Abdominal exam: Present: soft, normal bowel sounds. Absent: distended, tenderness, guarding, rebound, rigid Neurological exam: Present: alert, oriented X3 Course Vital Signs 08/19/20 08/19/20 08/19/20 12:50 15:17 16:03 Temperature 97.8 F Pulse Rate 58 L 65 64 Respiratory 18 18 18 Rate Blood Pressure 142/73 143/84 133/77 O2 Sat by Pulse 97 92 L 94 L Oximetry EKG Findings - EKG Comments: EKG Findings:: Sinus rhythm, ventricular rate 65, pr int 198, QRS 168. Compared to previous EKG from 11/07/2019. Appears similar. Dr. Barragan also reviewed each EKG. Medical Decision Making - Medical Decision Making Vitals are stable. Patient presents complaining of dizziness. Patient states he feels like the room is spinning. This feels exactly like his previous episodes of vertigo. Patient states having something covering his eyes makes this better. CBC CMP unremarkable. CT brain shows age-related changes of atrophy and chronic small vessel ischemia. EKG shows a right bundle branch block that is consistent with previous EKG from October 2019. Patient was given Antivert and Valium as well as Zofran. Patient reevaluated unable to get out of bed because of his dizziness. Feels like he is going to vomit. I did contact Dr. Stephens neurologist. He did evaluate patient in the ER. In the time it took for doctor sent him to the ER patient was given additional Antivert and had significant improvement in symptoms. Dr. Stephens did evaluate him and agrees this is consistent with vertigo. Patient will be written number June Antivert. He will follow up with his doctor. If he has any worsening symptoms he will return to the emergency room. - Lab Data Result diagrams: 08/19/20 14:36 08/19/20 14:36 Lab Results 08/19/20 08/19/20 Range/Units 14:36 14:36 WBC 10.4 (3.8-10.6) k/uL RBC 4.47 (4.30-5.90) m/uL Hgb 13.5 (13.0-17.5) gm/dL Hct 42.1 (39.0-53.0) % MCV 94.2 (80.0-100.0) fL MCH 30.3 (25.0-35.0) pg MCHC 32.1 (31.0-37.0) g/dL RDW 14.9 (11.5-15.5) % Plt Count 186 (150-450) k/uL Neutrophils % 77 % Lymphocytes % 10 % Monocytes % 7 % Eosinophils % 5 % Basophils % 1 % Neutrophils # 7.9 H (1.3-7.7) k/uL Lymphocytes # 1.1 (1.0-4.8) k/uL Monocytes # 0.7 (0-1.0) k/uL Eosinophils # 0.5 (0-0.7) k/uL Basophils # 0.1 (0-0.2) k/uL Hypochromasia Slight Sodium 137 (137-145) mmol/L Potassium 4.8 (3.5-5.1) mmol/L Chloride 105 (98-107) mmol/L Carbon Dioxide 25 (22-30) mmol/L Anion Gap 7 mmol/L BUN 13 (9-20) mg/dL Creatinine 1.01 (0.66-1.25) mg/dL Est GFR (CKD-EPI)AfAm 84 (>60 ml/min/1.73 sqM) Est GFR (CKD-EPI)NonAf 73 (>60 ml/min/1.73 sqM) Glucose 154 H (74-99) mg/dL Calcium 8.8 (8.4-10.2) mg/dL Total Bilirubin 0.9 (0.2-1.3) mg/dL AST 26 (17-59) U/L ALT 9 (4-49) U/L Alkaline Phosphatase 70 (38-126) U/L Total Protein 6.9 (6.3-8.2) g/dL Albumin 3.7 (3.5-5.0) g/dL Disposition Clinical Impression: Dizziness Disposition: HOME SELF-CARE Condition: Good Instructions (If sedation given, give patient instructions): Dizziness (ED) Additional Instructions: Please take Antivert as directed. Follow-up with your doctor in 1-2 days. If you have worsening symptoms return to the emergency room. Prescriptions: Meclizine [Antivert] 25 mg PO TID PRN #20 tab PRN Reason: dizziness Is patient prescribed a controlled substance at d/c from ED?: No Referrals: Teresa Walter MD [Primary Care Provider] - 1-2 days Time of Disposition: 18:33
--- NOTE | 2020-08-19 14:36 | CT ---
EXAMINATION TYPE: CT brain wo con DATE OF EXAM: 08/19/2020 COMPARISON: Prior CT brain 11/07/2019 HISTORY: vertigo CT DLP: 1055.4 mGycm Automated exposure control for dose reduction was used. Helical imaging through the brain FINDINGS: Cortical atrophy is again noted. Periventricular white matter shows patchy low attenuation as on prio r. There is no hemorrhage or hydrocephalus. Cerebral vascular calcifications are present. Inflammator y change present within the maxillary sinuses. Jessica bullosa present bilaterally right greater than left. The calvarium is intact. Orbits show symmetric appearance. IMPRESSION: AGE-RELATED CHANGES OF ATROPHY AND CHRONIC SMALL VESSEL ISCHEMIA.
[2020-08-19 14:50] LABS: Basophils # (A) 0.1 k/uL (0-0.2); Basophils % (A) 1 %; Eosinophils # (A) 0.5 k/uL (0-0.7); Eosinophils % (A) 5 %; HCT 42.1 % (39.0-53.0); HGB 13.5 gm/dL (13.0-17.5); Hypochromasia Slight; Lymphocytes # (A) 1.1 k/uL (1.0-4.8); Lymphocytes % (A) 10 %; MCH 30.3 pg (25.0-35.0); MCHC 32.1 g/dL (31.0-37.0); MCV 94.2 fL (80.0-100.0); Mean Platelet Volume 8.6; Monocytes # (A) 0.7 k/uL (0-1.0); Monocytes % (A) 7 %; Neutrophils # (A) 7.9 k/uL (1.3-7.7); Neutrophils % (A) 77 %; Platelet Count 186 k/uL (150-450); RBC 4.47 m/uL (4.30-5.90); RDW 14.9 % (11.5-15.5); WBC 10.4 k/uL (3.8-10.6)
[2020-08-19] MEDS ORDERED: DIAZEPAM 5 MG/ML 2 ML INJ IVP STA (14:59)
[2020-08-19] MEDS ORDERED: ONDANSETRON 4 MG/2 ML VIAL IVP STA (14:59)
[2020-08-19 15:08] LABS: Albumin 3.7 g/dL (3.5-5.0); Calcium 8.8 mg/dL (8.4-10.2); Total Bilirubin 0.9 mg/dL (0.2-1.3); Total Protein 6.9 g/dL (6.3-8.2)
[2020-08-19 15:26] LABS: Potassium 4.8 mmol/L (3.5-5.1)
--- NOTE | 2020-08-19 18:55 | P.CNNES ---
History of Present Illness Consult date: 08/19/20 Requesting physician: Cole Lai Reason for Consult: Severe vertigo History of Present Illness: Patient is a 74-year-old male who has history of intermittent episodes of vertigo for last 10 years, about 4 of them. The last one was about 1-1/2-2 years ago. Patient whenever gets vertigo, starts having vomiting shortly after the onset of vertigo, takes Antivert, sleeps and when he wakes up, the symptoms are gone. Patient states that this morning he got up and his was sick. He called the ambulance for her and she was taken to the hospital for pneumonia. After she was gone to the hospital, he felt very tired, tried to eat breakfast, and couldn't eat breakfast. He started feeling dizzy, sat down and then started spinning and then dry heaving. He tried to go to sleep but did not have Antivert. His daughter called the EMS and he was brought to the hospital. Patient's vitals on arrival showed blood pressure 142/73, pulse rate [address] head showed age-related changes of atrophy and chronic small vessel ischemia. On my review there is some congestion of the ethmoid and maxillary sinuses with polyps in the maxillary sinuses. CBC is normal, CMP normal. Patient has been seen by Dr. Allison on 11/08/2019 weakness, pain in the left wrist extending up his arm into the shoulder. It was felt to be related to either CTS, arthritis, gout. Patient has a carotid Doppler on 11/08/2019, which revealed antegrade flow in vertebral arteries. Less than 20% stenosis in both ICAs. 2-D echo from showed sinus rhythm, left vertebral size is normal. Moderate concentric LVH, EF is 35-40%. Mid anterior left ventricle wall motion is akinetic. Mid anteroseptal left ventricular wall motion is hypokinetic. Apical anterior left-ventricular wall motion is akinetic. Apical lateral and ap ical septum left-ventricular wall motion is akinetic. Left atrium is moderately dilated. Patient has atrial fibrillation on anticoagulation with Apixaban. Patient states that he has diabetes for about 35 years, type II. He has peripheral neuropathy, COPD for which she takes Symbicort. Review of Systems Patient denies any hearing issues. He does admit to having some sinus drainage. Denies any tinnitus or hearing loss. He has neuropathy. He has some heart issues. Complains of some nausea vomiting related to vertigo. Denies any abdominal pain or diarrhea. No fever or chills. No weight loss. No chest pain. All other reviews of systems reviewed are unremarkable. Past Medical History Past Medical History: Atrial Fibrillation, Asthma, Coronary Artery Disease (CAD), COPD, Diabetes Mellitus, Hypertension, Myocardial Infarction ([place]), Pneumonia Additional Past Medical History / Comment(s): left knee cap broken, pancreatitis, /gallstones(sx done). 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 writer unable to verify date Last Myocardial Infarction Date:: 2017 History of Any Multi-Drug Resistant Organisms: None Reported Past Surgical History: Cholecystectomy, Coronary Bypass/CABG, Heart Catheterization With Stent, Hernia Repair, Orthopedic Surgery Additional Past Surgical History / Comment(s): tooth extractions, lt knee replacement(total of 3 sx), colonoscopy, picc line-since removed Past Anesthesia/Blood Transfusion Reactions: No Reported Reaction Date of Last Stent Placement:: 10/2015 Past Psychological History: No Psychological Hx Reported Past Alcohol Use History: Occasional Past Drug Use History: None Reported - Past Family History Father Family Medical History: Diabetes Mellitus Mother Family Medical History: CVA/TIA, Hypertension Medications and Allergies Home Medications Medication Instructions Recorded Confirmed Type Allopurinol [Zyloprim] 300 mg PO DAILY 08/07/17 11/07/19 History Atorvastatin [Lipitor] 40 mg PO HS 08/07/17 11/07/19 History Magnesium Oxide [Mag-Ox] 400 mg PO BID 08/07/17 11/07/19 History Albuterol Sulfate [Proventil Hfa] 1 - 2 puff INHALATION RT-QID PRN 10/15/17 11/07/19 History Carvedilol [Coreg] 6.25 mg PO BID 10/02/18 11/07/19 History Gabapentin 600 mg PO BID@1600,2200 10/02/18 11/07/19 History Levothyroxine Sodium [Synthroid] 112 mcg PO DAILY 10/02/18 11/07/19 History Levothyroxine Sodium [Synthroid] 125 mcg PO DAILY 10/02/18 11/07/19 History Meclizine [Antivert] 12.5 mg PO DAILY PRN 10/02/18 11/07/19 History Nitroglycerin Sl Tabs [Nitrostat] 0.4 mg SUBLINGUAL Q5M PRN 10/02/18 11/07/19 History diazePAM [Valium] 5 mg PO DAILY PRN 10/02/18 11/07/19 History Apixaban [Eliquis] 5 mg PO BID 11/07/19 11/07/19 History Budesonide/Formoterol Fumarate 1 puff INHALATION RT-BID 11/07/19 11/07/19 History [Symbicort 80-4.5 Mcg Inhaler] Hydrocodone/Acetaminophen [[place] 1 tab PO Q12H PRN 11/07/19 11/07/19 History 7.5-325] Linagliptin [Tradjenta] 5 mg PO DAILY 30 Days #30 tablet 11/10/19 Rx metFORMIN HCL [Glucophage] 500 mg PO BID-W/MEALS 30 Days #60 11/10/19 Rx tab Mupirocin 2% Oint [Bactroban 2% 1 applic TOPICAL TID #22 gm 01/23/20 Rx Oint] Nystatin 100,000Unit/gm Cream 1 applic TOPICAL BID #30 gram 01/23/20 Rx [Mycostatin Cream] Hydrocortisone Cream 1 applic TOPICAL TID #1 bottle 04/07/20 Rx [Hydrocortisone 2.5% Cream] Sulfamethox-Tmp 800-160Mg [Bactrim 1 each PO Q12HR #20 tab 04/07/20 Rx Ds] methylPREDNISolone [Medrol Dose 4 mg PO DIRECTED #1 pack 04/22/20 Rx Pack] Meclizine [Antivert] 25 mg PO TID PRN #20 tab 08/19/20 Rx Allergies Allergy/AdvReac Type Severity Reaction Status Date / Time cephalexin [From Keflex] Allergy Unknown Verified 04/22/20 22:32 clopidogrel [From Plavix] Allergy Unknown Verified 04/22/20 22:32 Iodine and Iodide Containing Allergy Unknown Verified 04/22/20 22:32 Produc levofloxacin [From Levaquin] Allergy Unknown Verified 04/22/20 22:32 shellfish derived [Shellfish] Allergy Unknown Verified 04/22/20 22:32 solifenacin Allergy Unknown Verified 04/22/20 22:32 codeine AdvReac Nausea & Verified 04/22/20 22:32 Vomiting oxycodone AdvReac Hallucinati Verified 04/22/20 22:32 ons Physical Examination - Vital Signs Vital Signs: Vital Signs Temp Pulse Resp BP Pulse Ox 08/19/20 16:03 64 18 133/77 94 L 08/19/20 15:17 65 18 143/84 92 L 08/19/20 12:50 97.8 F 58 L 18 142/73 97 Intake and Output 08/19/20 08/19/20 08/19/20 06:59 14:59 22:59 Other: Weight 110.677 kg On examination patient is a elderly male, in no acute distress. Patient is alert and awake oriented to time place and person speech and language functions are normal. Attention and concentration fund of knowledge is adequate. On cranial nerve examination pupils are round and reactive to light, visual fuentes are full on confrontation, extraocular muscles are intact with no nystagmus. Face is symmetric, tongue protrudes to the midline. Palatal elevation and sensation normal. Hearing and shoulder shrug normal. On muscle strength testing there is no pronator drift and the strength is normal in arms and legs distally and proximally reflexes are symmetric and plantars are downgoing. Sensory touch is equal. No ataxia for [id number] or [id number] testing. Tone and bulk of muscles normal. No peripheral edema. No carotid bruit, S1 and S2 audible. Abdomen is soft nontender and chest is clear. Results - Laboratory Findings CBC and BMP: 08/19/20 14:36 08/19/20 14:36 Abnormal Lab Findings: Abnormal Labs 08/19/20 08/19/20 14:36 14:36 Neutrophils # 7.9 H Glucose 154 H Assessment and Plan Assessment: * Vertigo, probably due to peripheral vestibular dysfunction. Patient has 4 different episodes of vertigo in the last several years. Patient does have some sinus congestion and nasal drainage. The head showed some maxillary polyps, and mild ethmoid sinus disease. * Atrial fibrillation, on anticoagulation with Aixaban. * Diabetes * COPD * Peripheral neuropathy Plan: * Continue Antivert as needed. * Flonase nasal spray twice a day for sinus congestion. * No other workup indicated. * Neurologically clear for discharge.
[2020-08-19 19:28] VITALS: BP 142/82; PULSE 68
== END 2020-08-19 18:52 | disposition home or self-care (01) ==
LOC: EC 12:46
DX: R42 Dizziness and giddiness (principal); G31.1 Senile degeneration of brain, not elsewhere classified; I67.82 Cerebral ischemia; I45.10 Unspecified right bundle-branch block; I10 Essential (primary) hypertension; J44.9 Chronic obstructive pulmonary disease, unspecified; E78.5 Hyperlipidemia, unspecified; I48.91 Unspecified atrial fibrillation; I25.2 Old myocardial infarction; Z79.01 Long term (current) use of anticoagulants; Z79.899 Other long term (current) drug therapy; Z79.890 Hormone replacement therapy; Z79.51 Long term (current) use of inhaled steroids; Z88.1 Allergy status to other antibiotic agents; Z91.048 Other nonmedicinal substance allergy status; Z88.5 Allergy status to narcotic agent; Z91.013 Allergy to seafood; Z88.8 Allergy status to other drugs, medicaments and biological substances; Z96.652 Presence of left artificial knee joint
CPT/HCPCS: 36415; 93005; 80053; 85025; 70450; 99285; 96374; 96375; 96361 ×4; J3360; J2405

== ENCOUNTER 2021-03-03 08:15 | Emergency (ER) | payer MEDICARE ==
[2021-03-03 08:24] VITALS: RESP 18; TEMP 98
--- NOTE | 2021-03-03 08:57 | ED ---
General Adult HPI - General Chief complaint: Extremity Problem,Nontraumatic Stated complaint: Hurt Rt leg Time Seen by Provider: 03/03/21 08:25 Source: patient, RN notes reviewed, old records reviewed Mode of arrival: wheelchair Limitations: physical limitation - History of Present Illness Initial comments: This is a 75-year-old male who presents emergency Department stating that he woke up 3 days ago with cramping in the right calf. Patient states every day he wakes up he has cramping in the cath and he was concerned that he had a blood clot. Patient states he is heart patient and he is on eliquis. Patient denies any swelling to the area but he states that touching the calf is very painful. Patient saw his primary yesterday and they placido blood to make sure there is no large red abnormality. Patient denies any recent fever chills. Patient denies any redness to the leg. Patient denies any edema to the leg. Patient denies any chest pain or difficulty breathing. Patient denies any other problems at this time. - Related Data Home Medications Medication Instructions Recorded Confirmed Allopurinol [Zyloprim] 300 mg PO DAILY 08/07/17 11/07/19 Atorvastatin [Lipitor] 40 mg PO HS 08/07/17 11/07/19 Magnesium Oxide [Mag-Ox] 400 mg PO BID 08/07/17 11/07/19 Albuterol Sulfate [Proventil Hfa] 1 - 2 puff INHALATION RT-QID PRN 10/15/17 11/07/19 Carvedilol [Coreg] 6.25 mg PO BID 10/02/18 11/07/19 Gabapentin 600 mg PO BID@1600,2200 10/02/18 11/07/19 Levothyroxine Sodium [Synthroid] 112 mcg PO DAILY 10/02/18 11/07/19 Levothyroxine Sodium [Synthroid] 125 mcg PO DAILY 10/02/18 11/07/19 Meclizine [Antivert] 12.5 mg PO DAILY PRN 10/02/18 11/07/19 Nitroglycerin Sl Tabs [Nitrostat] 0.4 mg SUBLINGUAL Q5M PRN 10/02/18 11/07/19 diazePAM [Valium] 5 mg PO DAILY PRN 10/02/18 11/07/19 Apixaban [Eliquis] 5 mg PO BID 11/07/19 11/07/19 Budesonide/Formoterol Fumarate 1 puff INHALATION RT-BID 11/07/19 11/07/19 [Symbicort 80-4.5 Mcg Inhaler] Hydrocodone/Acetaminophen [[place] 1 tab PO Q12H PRN 11/07/19 11/07/19 7.5-325] Previous Rx's Medication Instructions Recorded Linagliptin [Tradjenta] 5 mg PO DAILY 30 Days #30 tablet 11/10/19 metFORMIN HCL [Glucophage] 500 mg PO BID-W/MEALS 30 Days #60 11/10/19 tab Mupirocin 2% Oint [Bactroban 2% 1 applic TOPICAL TID #22 gm 01/23/20 Oint] Nystatin 100,000Unit/gm Cream 1 applic TOPICAL BID #30 gram 01/23/20 [Mycostatin Cream] Hydrocortisone Cream 1 applic TOPICAL TID #1 bottle 04/07/20 [Hydrocortisone 2.5% Cream] Sulfamethox-Tmp 800-160Mg [Bactrim 1 each PO Q12HR #20 tab 04/07/20 Ds] methylPREDNISolone [Medrol Dose 4 mg PO DIRECTED #1 pack 04/22/20 Pack] Meclizine [Antivert] 25 mg PO TID PRN #20 tab 08/19/20 Allergies Allergy/AdvReac Type Severity Reaction Status Date / Time cephalexin [From Keflex] Allergy Unknown Verified 03/03/21 08:24 clopidogrel [From Plavix] Allergy Unknown Verified 03/03/21 08:24 Iodine and Iodide Containing Allergy Unknown Verified 03/03/21 08:24 Produc levofloxacin [From Levaquin] Allergy Unknown Verified 03/03/21 08:24 shellfish derived [Shellfish] Allergy Unknown Verified 03/03/21 08:24 solifenacin Allergy Unknown Verified 03/03/21 08:24 codeine AdvReac Nausea & Verified 03/03/21 08:24 Vomiting oxycodone AdvReac Hallucinati Verified 03/03/21 08:24 ons Review of Systems ROS Statement: Those systems with pertinent positive or pertinent negative responses have been documented in the HPI. ROS Other: All systems not noted in ROS Statement are negative. Past Medical History Past Medical History: Atrial Fibrillation, Asthma, Coronary Artery Disease (CAD), COPD, Diabetes Mellitus, Hypertension, Myocardial Infarction ([place]), Pneumonia Additional Past Medical History / Comment(s): left knee cap broken, pancreatitis, /gallstones Last Myocardial Infarction Date:: 2017 History of Any Multi-Drug Resistant Organisms: None Reported Past Surgical History: Cholecystectomy, Coronary Bypass/CABG, Heart Catheterization With Stent, Hernia Repair, Orthopedic Surgery Additional Past Surgical History / Comment(s): lt knee replacement(total of 3 sx), colonoscopy, Past Anesthesia/Blood Transfusion Reactions: No Reported Reaction Date of Last Stent Placement:: 10/2015 Past Psychological History: No Psychological Hx Reported Smoking Status: Former smoker Past Alcohol Use History: Occasional Past Drug Use History: None Reported - Past Family History Father Family Medical History: Diabetes Mellitus Mother Family Medical History: CVA/TIA, Hypertension General Exam - General Exam Comments Initial Comments: GENERAL: Patient is well-developed and well-nourished. Patient is nontoxic and well- hydrated and is in no acute distress. ENT: Neck is soft and supple. No significant lymphadenopathy is noted. Oropharynx is clear. Moist mucous membranes. Neck has full range of motion without eliciting any pain EYES: The sclera were anicteric and conjunctiva were pink and moist. Extraocular movements were intact and pupils were equal round and reactive to light. Eyelids were unremarkable. PULMONARY: Unlabored respirations. Good breath sounds bilaterally. No audible rales rhonchi or wheezing was noted. CARDIOVASCULAR: There is a regular rate and rhythm without any murmurs gallops or rubs. ABDOMEN: Soft and nontender with normal bowel sounds. SKIN: Skin is clear with no lesions or rashes and otherwise unremarkable. NEUROLOGIC: Patient is alert and oriented x3. Cranial nerves II through XII are grossly intact. Motor and sensory are also intact. Normal speech, volume and content. Symmetrical smile. MUSCULOSKELETAL: Normal extremities with adequate strength and full range of motion. Patient has significant calf tenderness on the right no swelling no redness LYMPHATICS: No significant lymphadenopathy is noted PSYCHIATRIC: Normal psychiatric evaluation. Limitations: physical limitation Course Vital Signs 03/03/21 08:21 Temperature 98.0 F Pulse Rate 66 Respiratory 18 Rate Blood Pressure 128/55 O2 Sat by Pulse 98 Oximetry Medical Decision Making - Medical Decision Making Ultrasound shows no DVT. Patient should continue taking his eliquis. Disposition Clinical Impression: Strain of calf muscle Disposition: HOME SELF-CARE Condition: Good Instructions (If sedation given, give patient instructions): Leg Cramps (ED) Additional Instructions: Patient's take Motrin when necessary for pain. Is patient prescribed a controlled substance at d/c from ED?: No Referrals: Teresa Walter MD [Primary Care Provider] - 1-2 days Time of Disposition: 09:48
--- NOTE | 2021-03-03 09:30 | US ---
EXAMINATION TYPE: US venous doppler duplex LE RT DATE OF EXAM: 03/03/2021 9:21 AM COMPARISON: NONE CLINICAL HISTORY: Calf pain. SIDE PERFORMED: Right TECHNIQUE: The lower extremity deep venous system is examined utilizing real time linear array sonog flor with graded compression, doppler sonography and color-flow sonography. VESSELS IMAGED: Common Femoral Vein Deep Femoral Vein Greater Saphenous Vein * Femoral Vein Popliteal Vein Small Saphenous Vein * Proximal Calf Veins (* superficial vessels) Right Leg: Negative for DVT Grayscale, color doppler, spectral doppler imaging performed of the deep veins of the right lower ext remity. There is normal flow, compressibility, vascular waveforms. IMPRESSION: No ultrasound evidence for acute DVT in the right lower extremity. Last few images at th e area of focal pain show no worrisome mass or fluid collection.
[2021-03-03 10:21] VITALS: BP 117/94; PULSE 67
== END 2021-03-03 10:19 | disposition home or self-care (01) ==
LOC: EC 08:15
DX: S86.911A Strain of unspecified muscle(s) and tendon(s) at lower leg level, right leg, initial encounter (principal); I25.10 Atherosclerotic heart disease of native coronary artery without angina pectoris; J44.9 Chronic obstructive pulmonary disease, unspecified; I48.91 Unspecified atrial fibrillation; E11.9 Type 2 diabetes mellitus without complications; I10 Essential (primary) hypertension; I25.2 Old myocardial infarction; Z95.1 Presence of aortocoronary bypass graft; Z90.49 Acquired absence of other specified parts of digestive tract; Z87.891 Personal history of nicotine dependence; X58.XXXA Exposure to other specified factors, initial encounter; Z79.84 Long term (current) use of oral hypoglycemic drugs
CPT/HCPCS: 99283

== ENCOUNTER 2021-03-17 09:50 | Observation (INO) | payer MEDICARE ==
--- NOTE | 2021-03-17 10:16 | ED ---
General Adult HPI - General Chief complaint: Chest Pain Stated complaint: Chest pain Time Seen by Provider: 03/17/21 09:51 Source: patient, EMS Mode of arrival: EMS Limitations: no limitations - History of Present Illness Initial comments: Dictation was produced using [employer] dictation software. please excuse any grammatical, word or spelling errors. This patient was cared for during a federal and state declared state of emergency secondary to Covid 19 Chief Complaint: 75-year-old male with past medical history A. fib, coronary artery disease, COPD and diabetes mellitus presents to the emergency department for chest pain History of Present Illness: 75-year-old male who has multiple comorbidities. Presents today with chest pain. Patient states that he woke up this morning to do his normal morning routine when he began having some sharp chest pain to his left chest. Patient denies any associated diaphoresis or nausea. He has extensive history of coronary artery disease status post coronary artery bypass grafting. Patient states that he denies any chest pain currently but he does feel weak. He was given aspirin and nitroglycerin by EMS. Denies any shortness of breath. The ROS documented in this emergency department record has been reviewed and confirmed by me. Those systems with pertinent positive or negative responses have been documented in the HPI. All other systems are other negative and/or noncontributory. PHYSICAL EXAM: General Impression: Alert and oriented x3, not in acute distress HEENT: Normocephalic atraumatic, extra-ocular movements intact, pupils equal and reactive to light bilaterally, mucous membranes moist. Cardiovascular: Heart regular rate and rhythm Chest: Able to complete full sentences, no retractions, no tachypnea, lungs clear to auscultation bilaterally Abdomen: abdomen soft, non-tender, non-distended, no organomegaly Musculoskeletal: Pulses present and equal in all extremities, no peripheral edema Motor: no focal deficits noted Neurological: CN II-XII grossly intact, no focal motor or sensory deficits noted Skin: Intact with no visualized rashes Psych: Normal affect and mood ED course: 75-year-old male presents with chest pain signs upon arrival are within acceptable limits. EKG shows right bundle branch block which appears comparable to most recent EKG from 08/19/2020 Laboratory evaluation obtained. CBC unremarkable. Coag panel is negative. Metabolic panel shows findings within acceptable limits. There is magnesium 1.4 slightly hypomagnesemic. Patient given parenterally magnesium. Patient will be admitted for cardiac observation, serial troponins and cardiology consultation.Case discussed Dr. Mg who is willing to accept patients care for admission. EKG interpretation: Ventricular rate 60, normal sinus rhythm,. 176, QRS 164, QTC 452. No DC prolongation, no QTC prolongation, no ST or T-wave changes noted. EKG compared to 08/19/2020 showing no changes. Overall, this EKG is unremarkable - Related Data Home Medications Medication Instructions Recorded Confirmed Allopurinol [Zyloprim] 300 mg PO DAILY 08/07/17 11/07/19 Atorvastatin [Lipitor] 40 mg PO HS 08/07/17 11/07/19 Magnesium Oxide [Mag-Ox] 400 mg PO BID 08/07/17 11/07/19 Albuterol Sulfate [Proventil Hfa] 1 - 2 puff INHALATION RT-QID PRN 10/15/17 11/07/19 Carvedilol [Coreg] 6.25 mg PO BID 10/02/18 11/07/19 Gabapentin 600 mg PO BID@1600,2200 10/02/18 11/07/19 Levothyroxine Sodium [Synthroid] 112 mcg PO DAILY 10/02/18 11/07/19 Levothyroxine Sodium [Synthroid] 125 mcg PO DAILY 10/02/18 11/07/19 Meclizine [Antivert] 12.5 mg PO DAILY PRN 10/02/18 11/07/19 Nitroglycerin Sl Tabs [Nitrostat] 0.4 mg SUBLINGUAL Q5M PRN 10/02/18 11/07/19 diazePAM [Valium] 5 mg PO DAILY PRN 10/02/18 11/07/19 Apixaban [Eliquis] 5 mg PO BID 11/07/19 11/07/19 Budesonide/Formoterol Fumarate 1 puff INHALATION RT-BID 11/07/19 11/07/19 [Symbicort 80-4.5 Mcg Inhaler] Hydrocodone/Acetaminophen [[place] 1 tab PO Q12H PRN 11/07/19 11/07/19 7.5-325] Previous Rx's Medication Instructions Recorded Linagliptin [Tradjenta] 5 mg PO DAILY 30 Days #30 tablet 11/10/19 metFORMIN HCL [Glucophage] 500 mg PO BID-W/MEALS 30 Days #60 11/10/19 tab Mupirocin 2% Oint [Bactroban 2% 1 applic TOPICAL TID #22 gm 01/23/20 Oint] Nystatin 100,000Unit/gm Cream 1 applic TOPICAL BID #30 gram 01/23/20 [Mycostatin Cream] Hydrocortisone Cream 1 applic TOPICAL TID #1 bottle 04/07/20 [Hydrocortisone 2.5% Cream] Sulfamethox-Tmp 800-160Mg [Bactrim 1 each PO Q12HR #20 tab 04/07/20 Ds] methylPREDNISolone [Medrol Dose 4 mg PO DIRECTED #1 pack 04/22/20 Pack] Meclizine [Antivert] 25 mg PO TID PRN #20 tab 08/19/20 Allergies Allergy/AdvReac Type Severity Reaction Status Date / Time cephalexin [From Keflex] Allergy Unknown Verified 03/03/21 08:24 clopidogrel [From Plavix] Allergy Unknown Verified 03/03/21 08:24 Iodine and Iodide Containing Allergy Unknown Verified 03/03/21 08:24 Produc levofloxacin [From Levaquin] Allergy Unknown Verified 03/03/21 08:24 shellfish derived [Shellfish] Allergy Unknown Verified 03/03/21 08:24 solifenacin Allergy Unknown Verified 03/03/21 08:24 codeine AdvReac Nausea & Verified 03/03/21 08:24 Vomiting oxycodone AdvReac Hallucinati Verified 03/03/21 08:24 ons Review of Systems ROS Statement: Those systems with pertinent positive or pertinent negative responses have been documented in the HPI. ROS Other: All systems not noted in ROS Statement are negative. Past Medical History Past Medical History: Atrial Fibrillation, Asthma, Coronary Artery Disease ([place]), COPD, Diabetes Mellitus, Hypertension, Myocardial Infarction ([place]), Pneumonia Additional Past Medical History / Comment(s): left knee cap broken, pancreatitis, /gallstones Last Myocardial Infarction Date:: 2017 History of Any Multi-Drug Resistant Organisms: None Reported Past Surgical History: Cholecystectomy, Coronary Bypass/CABG, Heart Catheterization With Stent, Hernia Repair, Orthopedic Surgery Additional Past Surgical History / Comment(s): lt knee replacement(total of 3 sx), colonoscopy, Past Anesthesia/Blood Transfusion Reactions: No Reported Reaction Date of Last Stent Placement:: 10/2015 Past Psychological History: No Psychological Hx Reported Smoking Status: Former smoker Past Alcohol Use History: Occasional Past Drug Use History: None Reported - Past Family History Father Family Medical History: Diabetes Mellitus Mother Family Medical History: CVA/TIA, Hypertension General Exam Limitations: no limitations Course Vital Signs 03/17/21 09:52 Temperature 98.1 F Pulse Rate 57 L Respiratory 17 Rate Blood Pressure 132/83 O2 Sat by Pulse 97 Oximetry Medical Decision Making - Lab Data Result diagrams: 03/17/21 10:06 03/17/21 10:06 Lab Results 03/17/21 03/17/21 03/17/21 Range/Units 10:06 10:06 10:06 WBC 7.9 (3.8-10.6) k/uL RBC 4.16 L (4.30-5.90) m/uL Hgb 12.6 L (13.0-17.5) gm/dL Hct 37.9 L (39.0-53.0) % MCV 91.3 (80.0-100.0) fL MCH 30.4 (25.0-35.0) pg MCHC 33.3 (31.0-37.0) g/dL RDW 14.7 (11.5-15.5) % Plt Count 180 (150-450) k/uL MPV 8.0 Neutrophils % 71 % Lymphocytes % 15 % Monocytes % 8 % Eosinophils % 4 % Basophils % 1 % Neutrophils # 5.6 (1.3-7.7) k/uL Lymphocytes # 1.2 (1.0-4.8) k/uL Monocytes # 0.7 (0-1.0) k/uL Eosinophils # 0.3 (0-0.7) k/uL Basophils # 0.1 (0-0.2) k/uL Poikilocytosis Slight PT 10.4 (9.0-12.0) sec INR 1.0 (<1.2) APTT 25.8 (22.0-30.0) sec Sodium 138 (137-145) mmol/L Potassium 4.3 (3.5-5.1) mmol/L Chloride 105 (98-107) mmol/L Carbon Dioxide 28 (22-30) mmol/L Anion Gap 5 mmol/L BUN 8 L (9-20) mg/dL Creatinine 0.96 (0.66-1.25) mg/dL Est GFR (CKD-EPI)AfAm 89 (>60 ml/min/1.73 sqM) Est GFR (CKD-EPI)NonAf 77 (>60 ml/min/1.73 sqM) Glucose 136 H (74-99) mg/dL Calcium 8.4 (8.4-10.2) mg/dL Magnesium 1.4 L (1.6-2.3) mg/dL Total Bilirubin 1.0 (0.2-1.3) mg/dL AST 19 (17-59) U/L ALT 7 (4-49) U/L Alkaline Phosphatase 63 (38-126) U/L Troponin I (0.000-0.034) ng/mL Total Protein 6.2 L (6.3-8.2) g/dL Albumin 3.2 L (3.5-5.0) g/dL 03/17/21 Range/Units 10:06 WBC (3.8-10.6) k/uL RBC (4.30-5.90) m/uL Hgb (13.0-17.5) gm/dL Hct (39.0-53.0) % MCV (80.0-100.0) fL MCH (25.0-35.0) pg MCHC (31.0-37.0) g/dL RDW (11.5-15.5) % Plt Count (150-450) k/uL MPV Neutrophils % % Lymphocytes % % Monocytes % % Eosinophils % % Basophils % % Neutrophils # (1.3-7.7) k/uL Lymphocytes # (1.0-4.8) k/uL Monocytes # (0-1.0) k/uL Eosinophils # (0-0.7) k/uL Basophils # (0-0.2) k/uL Poikilocytosis PT (9.0-12.0) sec INR (<1.2) APTT (22.0-30.0) sec Sodium (137-145) mmol/L Potassium (3.5-5.1) mmol/L Chloride (98-107) mmol/L Carbon Dioxide (22-30) mmol/L Anion Gap mmol/L BUN (9-20) mg/dL Creatinine (0.66-1.25) mg/dL Est GFR (CKD-EPI)AfAm (>60 ml/min/1.73 sqM) Est GFR (CKD-EPI)NonAf (>60 ml/min/1.73 sqM) Glucose (74-99) mg/dL Calcium (8.4-10.2) mg/dL Magnesium (1.6-2.3) mg/dL Total Bilirubin (0.2-1.3) mg/dL AST (17-59) U/L ALT (4-49) U/L Alkaline Phosphatase (38-126) U/L Troponin I <0.012 (0.000-0.034) ng/mL Total Protein (6.3-8.2) g/dL Albumin (3.5-5.0) g/dL Disposition Clinical Impression: Chest pain Disposition: ADMITTED IP TO THIS HOSP Condition: Fair Referrals: Teresa Walter MD [Primary Care Provider] - 1-2 days
[2021-03-17 10:19] LABS: Basophils # (A) 0.1 k/uL (0-0.2); Basophils % (A) 1 %; Eosinophils # (A) 0.3 k/uL (0-0.7); Eosinophils % (A) 4 %; HCT 37.9 % (39.0-53.0); HGB 12.6 gm/dL (13.0-17.5); Lymphocytes # (A) 1.2 k/uL (1.0-4.8); Lymphocytes % (A) 15 %; MCH 30.4 pg (25.0-35.0); MCHC 33.3 g/dL (31.0-37.0); MCV 91.3 fL (80.0-100.0); Monocytes # (A) 0.7 k/uL (0-1.0); Monocytes % (A) 8 %; Neutrophils # (A) 5.6 k/uL (1.3-7.7); Neutrophils % (A) 71 %; Platelet Count 180 k/uL (150-450); Poikilocytosis Slight; RBC 4.16 m/uL (4.30-5.90); RDW 14.7 % (11.5-15.5); WBC 7.9 k/uL (3.8-10.6)
[2021-03-17 10:29] LABS: Albumin 3.2 g/dL (3.5-5.0); Calcium 8.4 mg/dL (8.4-10.2); Magnesium 1.4 mg/dL (1.6-2.3); Potassium 4.3 mmol/L (3.5-5.1); Total Protein 6.2 g/dL (6.3-8.2)
--- NOTE | 2021-03-17 10:39 | XR ---
EXAMINATION TYPE: XR chest 2V DATE OF EXAM: 03/17/2021 HISTORY: Shortness of breath. COMPARISON: 11/07/2019 TECHNIQUE: Single view of the chest is submitted. FINDINGS: Demonstrated are scattered senescent parenchymal change. There is no evidence for focal infiltrate. The heart is stable. Hilar and mediastinal structures are within normal limits. Degenerative changes are seen of the dorsal spine. IMPRESSION: 1. Chronic changes without evidence for acute pulmonary disease.
[2021-03-17 10:58] LABS: Partial Thromboplastin Time 25.8 sec (22.0-30.0); Prothrombin Time 10.4 sec (9.0-12.0)
[2021-03-17] MEDS ORDERED: NITROGLYCERIN SL TABS 0.4 MG TAB SUBLINGUAL PRN ×2 (11:07→13:52)
[2021-03-17] MEDS: MAGNESIUM SULFATE-D5W PMX 1 GM in DEXTROSE/WATER 1 100ML.BAG IVPB SCH ×2 (11:47→14:59)
[2021-03-17] MEDS ORDERED: ALBUTEROL HFA INHALER INHALATION PRN (13:52)
[2021-03-17] MEDS ORDERED: diazePAM 5 MG TAB PO PRN (13:52)
[2021-03-17] MEDS ORDERED: HYDROcodone/APAP 7.5-325MG 1 EACH TAB PO PRN (13:52)
[2021-03-17] MEDS ORDERED: MECLIZINE 25 MG TAB PO PRN (13:52)
--- NOTE | 2021-03-17 14:14 | P.HPIM ---
History of Present Illness H&P Date: 03/17/21 Patrick Banuelos, is a 75-year-old male who presented to [facility] emergency room with a chief complaint of chest pain, patient stated that after he woke up this morning he started having episodes of sharp pain under his left breast, he has a known history of coronary artery disease with history of coronary artery bypass graft surgery, and history of chronic atrial fibrillation, he called EMS and was brought in to [facility] emergency room he was given nitroglycerin and aspirin by EMS, his pain resolved prior to arriving to emergency room, patient states that he was feeling weak, otherwise he denies any other symptoms there was no diaphoresis no nausea or vom iting and no shortness of breath. Patient was evaluated in emergency room vital examination on presentation revealed a temperature of 98.1 pulse 57 respirations 17 blood pressure 132/83 pulse ox 97% on room air , laboratory data revealed a white blood count of 7.9 hemoglobin 12.6 platelet count 180 sodium 138 potassium 4.3 chloride 105 CO2 28 BUN 8 creatinine 0.96 troponin level was less than 0.012 coronavirus PCR was not detected, chest x-ray revealed chronic changes without evidence for acute pulmonary disease, EKG revealed normal sinus rhythm with right bundle branch block and left anterior fascicular block, patient was admitted to telemetry floor cardiology consultation was requested. His past medical history is significant for coronary artery disease with history of myocardial infarction in 1991 subsequently patient had coronary artery bypass graft surgery 1 vessel. And since then patient had 4 stent placement. Past Medical History Past Medical History: Atrial Fibrillation, Asthma, Coronary Artery Disease (CAD), COPD, Diabetes Mellitus, Hypertension, Myocardial Infarction ([place]), Pneumonia Additional Past Medical History / Comment(s): left knee cap broken, pancreatitis, /gallstones Last Myocardial Infarction Date:: 2017 History of Any Multi-Drug Resistant Organisms: None Reported Past Surgical History: Cholecystectomy, Coronary Bypass/CABG, Heart Catheterization With Stent, Hernia Repair, Orthopedic Surgery Additional Past Surgical History / Comment(s): lt knee replacement(total of 3 sx), colonoscopy, Past Anesthesia/Blood Transfusion Reactions: No Reported Reaction Date of Last Stent Placement:: 10/2015 Past Psychological History: No Psychological Hx Reported Smoking Status: Former smoker Past Alcohol Use History: Occasional Past Drug Use History: None Reported - Past Family History Father Family Medical History: Diabetes Mellitus Mother Family Medical History: CVA/TIA, Hypertension Medications and Allergies Home Medications Medication Instructions Recorded Confirmed Type Allopurinol [Zyloprim] 300 mg PO DAILY 08/07/17 03/17/21 History Albuterol Sulfate [Proventil Hfa] 1 puff INHALATION RT-Q4H PRN 10/15/17 03/17/21 History Gabapentin 1,200 mg PO TID 10/02/18 03/17/21 History Levothyroxine Sodium [Synthroid] 112 mcg PO DAILY 10/02/18 03/17/21 History Levothyroxine Sodium [Synthroid] 125 mcg PO DAILY 10/02/18 03/17/21 History Nitroglycerin Sl Tabs [Nitrostat] 0.4 mg SL Q5M PRN 10/02/18 03/17/21 History diazePAM [Valium] 5 mg PO HS PRN 10/02/18 03/17/21 History Apixaban [Eliquis] 5 mg PO BID 11/07/19 03/17/21 History Budesonide/Formoterol Fumarate 2 puff INHALATION RT-BID 11/07/19 03/17/21 History [Symbicort 80-4.5 Mcg Inhaler] Hydrocodone/Acetaminophen [[place] 1 tab PO TID PRN 11/07/19 03/17/21 History 7.5-325] Atorvastatin [Lipitor] 40 mg PO HS 03/17/21 03/17/21 History Finasteride [Proscar] 5 mg PO HS 03/17/21 03/17/21 History Magnesium Oxide [Mag-Ox] 500 mg PO HS 03/17/21 03/17/21 History Meclizine [Antivert] 25 mg PO BID PRN 03/17/21 03/17/21 History Omeprazole 20 mg PO DAILY 03/17/21 03/17/21 History carvediloL [Coreg] 6.25 mg PO BID 03/17/21 03/17/21 History metFORMIN HCL 1,000 mg PO BID 03/17/21 03/17/21 History Allergies Allergy/AdvReac Type Severity Reaction Status Date / Time cephalexin [From Keflex] Allergy Unknown Verified 03/17/21 12:22 clopidogrel [From Plavix] Allergy Rash/Hives Verified 03/17/21 12:22 codeine Allergy Rash/Nausea Verified 03/17/21 12:22 & Vomiting Iodine and Iodide Containing Allergy Rash/Hives Verified 03/17/21 12:22 Produc levofloxacin [From Levaquin] Allergy urticaria/r Verified 03/17/21 12:22 belle shellfish derived [Shellfish] Allergy urticaria/r Verified 03/17/21 12:22 belle lisinopril AdvReac Angiodema Verified 03/17/21 12:22 of tongue oxycodone AdvReac Hallucinati Verified 03/17/21 12:22 ons solifenacin AdvReac Nausea & Verified 03/17/21 12:22 Vomiting Physical Exam Vitals: Vital Signs Temp Pulse Resp BP Pulse Ox 03/17/21 11:43 65 19 124/99 92 L 03/17/21 09:52 98.1 F 57 L 17 132/83 97 Intake and Output 03/16/21 03/17/21 03/17/21 22:59 06:59 14:59 Other: Weight 109.769 kg In general patient is alert and oriented ?-3 in no distress HEENT head normocephalic and atraumatic Neck is supple no JVD no goiter no lymphadenopathy no carotid bruit Chest examination is clear to auscultation no crackles no wheezing Cardiac exam reveals regular heart sounds S1 and S2 no gallops no murmurs Abdomen is soft nontender no organomegaly with normal bowel sounds Extremity exam reveals no edema no cyanosis or clubbing Neurological examination reveals no gross focal deficits Results CBC & Chem 7: 03/17/21 10:06 03/17/21 10:06 Labs: Abnormal Lab Results - Last 24 Hours (Table) 03/17/21 03/17/21 Range/Units 10:06 10:06 RBC 4.16 L (4.30-5.90) m/uL Hgb 12.6 L (13.0-17.5) gm/dL Hct 37.9 L (39.0-53.0) % BUN 8 L (9-20) mg/dL Glucose 136 H (74-99) mg/dL Magnesium 1.4 L (1.6-2.3) mg/dL Total Protein 6.2 L (6.3-8.2) g/dL Albumin 3.2 L (3.5-5.0) g/dL Assessment and Plan Plan: 1. Episode of chest pain in a 75-year-old male with multiple cardiac risk factors including previous history of coronary artery disease patient is admitted to telemetry floor cardiology consultation was requested serial troponin level were ordered. 2. Underlying history of coronary artery disease 3. Underlying history of hypertension 4. Underlying history of hyperlipidemia 5. Underlying history of [id number] diabetes mellitus 6. Underlying history of benign prostatic hypertrophy 7. Underlying history of atrial fibrillation maintained on Eliquis 8. Underlying history of gout 9. Underlying history of COPD At this time patient is stable, will monitor on telemetry Will check serial EKG and cardiac enzymes Cardiology consultation requested Home medications reviewed and reordered Will follow closely
[2021-03-17] MEDS: GABAPENTIN 400 MG CAP PO SCH ×2 (14:32→19:16)
[2021-03-17 17:19] LABS: Glucose,Whole Blood 114 mg/dL (75-99)
[2021-03-17] MEDS: FINASTERIDE 5 MG TAB PO SCH (19:16)
[2021-03-17] MEDS: MAGNESIUM OXIDE 400 MG TAB PO SCH (19:16)
[2021-03-17] MEDS: ATORVASTATIN 40 MG TAB PO SCH (19:16)
[2021-03-17] MEDS: carvediloL 6.25 MG TAB PO SCH (19:16)
[2021-03-17] MEDS: APIXABAN 5 MG TAB PO SCH (19:16)
[2021-03-17] MEDS: SYMBICORT 80-4.5 MCG INHALER INHALATION SCH (21:05)
[2021-03-18] MEDS: LEVOTHYROXINE 112 MCG TAB PO SCH (05:03)
[2021-03-18] MEDS: LEVOTHYROXINE 125 MCG TAB PO SCH (05:03)
[2021-03-18 07:08] LABS: Glucose,Whole Blood 128 mg/dL (75-99)
[2021-03-18] MEDS: SYMBICORT 80-4.5 MCG INHALER INHALATION SCH ×2 (07:25→20:51)
[2021-03-18 07:33] VITALS: RESP 18
[2021-03-18] MEDS: carvediloL 6.25 MG TAB PO SCH ×2 (08:41→19:18)
[2021-03-18] MEDS: APIXABAN 5 MG TAB PO SCH ×2 (08:41→19:19)
[2021-03-18] MEDS: PANTOPRAZOLE 40 MG TABLET PO SCH (08:41)
[2021-03-18] MEDS: allopurinoL 300 MG TAB PO SCH (08:41)
[2021-03-18] MEDS: GABAPENTIN 400 MG CAP PO SCH ×3 (08:41→19:18)
[2021-03-18] MEDS ORDERED: ASPIRIN 325 MG TAB PO SCH (09:00)
[2021-03-18 09:35] LABS: Basophils # (A) 0.04 X 10*3/uL (0.00-0.10); Basophils % (A) 0.6 %; Eosinophils # (A) 0.26 X 10*3/uL (0.04-0.35); Eosinophils % (A) 3.8 %; HCT 38.8 % (39.6-50.0); Lymphocytes # (A) 1.21 X 10*3/uL (0.90-5.00); Lymphocytes % (A) 17.7 %; MCH 29.8 pg (27.0-32.0); MCHC 30.9 g/dL (32.0-37.0); MCV 96.3 fL (80.0-97.0); Monocytes # (A) 0.62 X 10*3/uL (0.20-1.00); Monocytes % (A) 9.1 %; Neutrophils # (A) 4.68 X 10*3/uL (1.80-7.70); Neutrophils % (A) 68.2 %; Platelet Count 155 X 10*3/uL (140-440); RBC 4.03 X 10*6/uL (4.40-5.60); RDW 14.6 % (11.5-14.5); WBC 6.85 X 10*3/uL (4.50-10.00)
[2021-03-18 09:51] LABS: ALT <8 U/L (10-49); AST 11 U/L (14-35); African American GFR (CKD) 67.7 (60.0-200.0); Albumin/Globulin Ratio 1.24 (1.60-3.17); Alkaline Phosphatase 67 U/L (41-126); BUN/Creat Ratio 6.67 Ratio (12.00-20.00); Calcium 8.4 mg/dL (8.7-10.3); Carbon Dioxide 31.2 mmol/L (21.6-31.8); Chloride 104 mmol/L (96-109); Chol/HDL Ratio 3.43; Cholesterol 79 mg/dL (0-200); Globulin 2.5 g/dL (1.6-3.3); Glucose 127 mg/dL (70-110); Non-African American GFR(CKD) 58.4 (60.0-200.0); Potassium 4.3 mmol/L (3.5-5.5); Sodium 140 mmol/L (135-145); Total Bilirubin 0.7 mg/dL (0.3-1.2); Total Protein 5.6 g/dL (6.2-8.2)
[2021-03-18 11:59] LABS: Glucose,Whole Blood 173 mg/dL (75-99)
--- NOTE | 2021-03-18 13:29 | P.CRDCN ---
History of Present Illness Consult date: 03/18/21 Requesting physician: Karoline Mg Reason for Consult (text): chest pain Chief complaint: chest pain History of present illness: This is a pleasant 75-year-old gentleman who follows with Dr. Mac in the office. He has a history of single-vessel bypass 1994, subsequent stenting but the last stent done in 2018 at [facility], nonischemic stress test early last year, hypertension, hyperlipidemia, DVT, anticoagulated on Eliquis, and thyroid disorder. Presented to the hospital with complaints of intermittent fleeting sharp left-sided chest discomfort. According to him it did not remind him of what he experienced prior to his CABG or his stenting. Otherwise he has been overall just not feeling well. He denies any dyspnea, orthopnea or PND. He denies any edema. He's had no palpitations, dizziness or lightheadedness. His activity is quite limited due to his knee pain. EKG on admission showed sinus mechanism with right bundle graciela block pattern, left anterior fascicular block, bifascicular block, evidence of prior [place], with no change compared to previous EKG. Chest x-ray on admission shows chronic changes without evidence of acute pulmonary disease. Laboratory values on admission show potassium 4.3, BUN 8, creatinine 0.96, troponins have been negative 3, his lipids are well controlled on current therapy. Vital signs have been stable and he is afebrile. Upon examination he is resting comfortably in bed. He has no current complaints. Past Medical History Past Medical History: Atrial Fibrillation, Asthma, Coronary Artery Disease (CAD), COPD, Diabetes Mellitus, Hypertension, Myocardial Infarction ([place]), Pneumo kristopher Additional Past Medical History / Comment(s): left knee cap broken, vallejo creatitis, /gallstones Last Myocardial Infarction Date:: 2017 History of Any Multi-Drug Resistant Organisms: None Reported Past Surgical History: Cholecystectomy, Coronary Bypass/CABG, Heart Catheterization With Stent, Hernia Repair, Orthopedic Surgery Additional Past Surgical History / Comment(s): lt knee replacement(total of 3 sx), colonoscopy, Past Anesthesia/Blood Transfusion Reactions: No Reported Reaction Date of Last Stent Placement:: 10/2015 Past Psychological History: No Psychological Hx Reported Smoking Status: Former smoker Past Alcohol Use History: Occasional Past Drug Use History: None Reported - Past Family History Father Family Medical History: Diabetes Mellitus Mother Family Medical History: CVA/TIA, Hypertension Medications and Allergies Home Medications Medication Instructions Recorded Confirmed Type Allopurinol [Zyloprim] 300 mg PO DAILY 08/07/17 03/17/21 History Albuterol Sulfate [Proventil Hfa] 1 puff INHALATION RT-Q4H PRN 10/15/17 03/17/21 History Gabapentin 1,200 mg PO TID 10/02/18 03/17/21 History Levothyroxine Sodium [Synthroid] 112 mcg PO DAILY 10/02/18 03/17/21 History Levothyroxine Sodium [Synthroid] 125 mcg PO DAILY 10/02/18 03/17/21 History Nitroglycerin Sl Tabs [Nitrostat] 0.4 mg SL Q5M PRN 10/02/18 03/17/21 History diazePAM [Valium] 5 mg PO HS PRN 10/02/18 03/17/21 History Apixaban [Eliquis] 5 mg PO BID 11/07/19 03/17/21 History Budesonide/Formoterol Fumarate 2 puff INHALATION RT-BID 11/07/19 03/17/21 History [Symbicort 80-4.5 Mcg Inhaler] Hydrocodone/Acetaminophen [Thorndike 1 tab PO TID PRN 11/07/19 03/17/21 History 7.5-325] Atorvastatin [Lipitor] 40 mg PO HS 03/17/21 03/17/21 History Finasteride [Proscar] 5 mg PO HS 03/17/21 03/17/21 History Magnesium Oxide [Mag-Ox] 500 mg PO HS 03/17/21 03/17/21 History Meclizine [Antivert] 25 mg PO BID PRN 03/17/21 03/17/21 History Omeprazole 20 mg PO DAILY 03/17/21 03/17/21 History carvediloL [Coreg] 6.25 mg PO BID 03/17/21 03/17/21 History metFORMIN HCL 1,000 mg PO BID 03/17/21 03/17/21 History Allergies Allergy/AdvReac Type Severity Reaction Status Date / Time cephalexin [From Keflex] Allergy Unknown Verified 03/17/21 12:22 clopidogrel [From Plavix] Allergy Rash/Hives Verified 03/17/21 12:22 codeine Allergy Rash/Nausea Verified 03/17/21 12:22 & Vomiting Iodine and Iodide Containing Allergy Rash/Hives Verified 03/17/21 12:22 Produc levofloxacin [From Levaquin] Allergy urticaria/r Verified 03/17/21 12:22 belle shellfish derived [Shellfish] Allergy urticaria/r Verified 03/17/21 12:22 belle lisinopril AdvReac Angiodema Verified 03/17/21 12:22 of tongue oxycodone AdvReac Hallucinati Verified 03/17/21 12:22 ons solifenacin AdvReac Nausea & Verified 03/17/21 12:22 Vomiting Physical Exam Vitals: Vital Signs Temp Pulse Resp BP Pulse Ox 03/18/21 08:00 61 18 03/18/21 07:00 98.1 F 61 18 106/60 91 L 03/18/21 02:00 98.1 F 68 16 103/64 94 L 03/17/21 20:00 98.0 F 67 18 120/67 94 L 03/17/21 15:55 18 03/17/21 14:03 98.7 F 66 17 133/84 94 L Intake and Output 03/17/21 03/18/21 03/18/21 22:59 06:59 14:59 Intake Total 180 Output Total 675 300 Balance -495 -300 Intake: Oral 180 Output: Urine 675 300 Other: Voiding Method Toilet Toilet # Voids 1 1 PHYSICAL EXAMINATION: This is a 75-year-old male in no apparent distress at the time of my examination. VITAL SIGNS: Blood pressure 106/60, heart rate 61, respirations 18, temp 98.1F. Patient is 91 % on room air. HEENT: Head is atraumatic, normocephalic. Pupils are equal, round. Sclerae anicteric. Conjunctivae are clear. Mucous membranes of the mouth are moist. Neck is supple. There is no elevated jugular venous pressure. No carotid bruit is heard. CHEST EXAMINATION: Clear to auscultation bilaterally. No wheezes rales or rhonchi. Respirations even and nonlabored. HEART EXAMINATION: Heart regular, positive S1 and S2. No S3. No S4. Grade 2/6 systolic ejection murmur at the base. ABDOMEN: Soft, obese, nontender. Bowel sounds are heard. No organomegaly noted. EXTREMITIES: 2+ peripheral pulses with no evidence of peripheral edema and no calf tenderness noted. NEUROLOGIC EXAMINATION: Patient is awake, alert and oriented x3. Results 03/18/21 05:55 03/18/21 05:55 Cardiac Enzymes 03/17/21 03/17/21 03/18/21 Range/Units 13:10 16:07 05:55 AST 11 L (14-35) U/L Troponin I <0.012 <0.012 (0.000-0.034) ng/mL Lipids 03/18/21 Range/Units 05:55 Triglycerides 155.0 H (0.0-149.0) mg/dL Cholesterol 79 (0-200) mg/dL HDL Cholesterol 23.0 L (40.0-60.0) mg/dL Cholesterol/HDL Ratio 3.43 CBC 03/18/21 Range/Units 05:55 WBC 6.85 (4.50-10.00) X 10*3/uL RBC 4.03 L (4.40-5.60) X 10*6/uL Hgb 12.0 L (13.0-17.0) g/dL Hct 38.8 L (39.6-50.0) % Plt Count 155 (140-440) X 10*3/uL Comprehensive Metabolic Panel 03/18/21 Range/Units 05:55 Sodium 140 (135-145) mmol/L Potassium 4.3 (3.5-5.5) mmol/L Chloride 104 (96-109) mmol/L Carbon Dioxide 31.2 (21.6-31.8) mmol/L BUN 8.0 L (9.0-27.0) mg/dL Creatinine 1.2 (0.6-1.5) mg/dL Glucose 127 H (70-110) mg/dL Calcium 8.4 L (8.7-10.3) mg/dL AST 11 L (14-35) U/L ALT <8 L (10-49) U/L Alkaline Phosphatase 67 (41-126) U/L Total Protein 5.6 L (6.2-8.2) g/dL Albumin 3.10 L (3.80-4.90) g/dL Current Medications Generic Name Dose Route Start Last Admin Trade Name Freq PRN Reason Stop Dose Admin Hydrocodone Bitart/Acetaminophen 1 each 03/17/21 13:52 Hydrocodone/Apap 7.5-325mg 1 Each Tab PO TID PRN Pain Albuterol Sulfate 1 puff 03/17/21 13:52 Albuterol Hfa Inhaler INHALATION RT-Q4H PRN Shortness Of Breath Allopurinol 300 mg 03/18/21 09:00 03/18/21 08:41 Allopurinol 300 Mg Tab PO 300 mg DAILY MARIVEL Administration Apixaban 5 mg 03/17/21 21:00 03/18/21 08:41 Apixaban 5 Mg Tab PO 5 mg BID MARIVEL Administration Aspirin 325 mg 03/18/21 09:00 03/18/21 08:41 Aspirin 325 Mg Tab PO 325 mg DAILY MARIVEL Administration Atorvastatin Calcium 40 mg 03/17/21 21:00 03/17/21 19:16 Atorvastatin 40 Mg Tab PO 40 mg HS MARIVEL Administration Budesonide/Formoterol Fumarate 2 puff 03/17/21 20:00 03/18/21 07:25 Symbicort 80-4.5 Mcg Inhaler INHALATION 2 puff RT-BID MARIVEL Administration Carvedilol 6.25 mg 03/17/21 21:00 03/18/21 08:41 Carvedilol 6.25 Mg Tab PO 6.25 mg BID MARIVEL Administration Diazepam 5 mg 03/17/21 13:52 Diazepam 5 Mg Tab PO HS PRN Anxiety/Insomnia Finasteride 5 mg 03/17/21 21:00 03/17/21 19:16 Finasteride 5 Mg Tab PO 5 mg HS MARIVEL Administration Gabapentin 1,200 mg 03/17/21 16:00 03/18/21 08:41 Gabapentin 400 Mg Cap PO 1,200 mg TID MARIVEL Administration Levothyroxine Sodium 112 mcg 03/18/21 06:30 03/18/21 05:03 Levothyroxine 112 Mcg Tab PO 112 mcg DAILY@0630 MARIVEL Administration Levothyroxine Sodium 125 mcg 03/18/21 06:30 03/18/21 05:03 Levothyroxine 125 Mcg Tab PO 125 mcg DAILY@0630 MAIRVEL Administration Magnesium Oxide 400 mg 03/17/21 21:00 03/17/21 19:16 Magnesium Oxide 400 Mg Tab PO 400 mg HS MARIVEL Administration Meclizine HCl 25 mg 03/17/21 13:52 Meclizine 25 Mg Tab PO BID PRN dizziness Nitroglycerin 0.4 mg 03/17/21 11:07 Nitroglycerin Sl Tabs 0.4 Mg Tab SUBLINGUAL Q5M PRN Chest Pain Nitroglycerin 0.4 mg 03/17/21 13:52 Nitroglycerin Sl Tabs 0.4 Mg Tab SUBLINGUAL Q5M PRN Chest Pain Pantoprazole Sodium 40 mg 03/18/21 07:30 03/18/21 08:41 Pantoprazole 40 Mg Tablet PO 40 mg DAILY@0730 MARIVEL Administration Intake and Output 03/17/21 03/18/21 03/18/21 22:59 06:59 14:59 Intake Total 180 Output Total 675 300 Balance -495 -300 Intake: Oral 180 Output: Urine 675 300 Other: Voiding Method Toilet Toilet # Voids 1 1 03/18/21 05:55 03/18/21 05:55 Assessment and Plan Assessment: #1 symptoms of chest discomfort, atypical, an acute coronary event has been ruled out, no changes on EKG and troponins have been negative 3 #2 CAD with prior CABG and stenting #3 hypertension #4 hyperlipidemia Plan: From cardiology's perspective we'll obtain a 2-D echo with Doppler study to assess cardiac structure and function. The patient is currently pain-free. We will continue to monitor the patient and depending on results of the echocardiogram patient may be discharged home tomorrow. The above dictated assessment and findings were discussed with signing physician. The impression and plan of care have been directed as dictated. Manasa Foster, Nurse Practitioner, acting as scribe for signing physician.
--- NOTE | 2021-03-18 14:00 | ECHOF ---
Referral Reason:chest pain MEASUREMENTS -------- HEIGHT: 185.4 cm WEIGHT: 109.8 kg BP: 106/60 RVIDd: 4.0 cm (< 3.3) IVSd: 1.4 cm (0.6 - 1.1) LVIDd: 4.3 cm (3.9 - 5.3) LVPWd: 1.4 cm (0.6 - 1.1) IVSs: 2.2 cm LVIDs: 2.8 cm LVPWs: 1.7 cm LAESV Index (A-L): 29.78 ml/m Ao Diam: 3.7 cm (2.0 - 3.7) AV Cusp: 1.9 cm (1.5 - 2.6) MV EXCURSION: 15.856 mm (> 18.000) MV EF SLOPE: 76 mm/s (70 - 150) EPSS: 1.8 cm MV E Shamir: 0.96 m/s MV DecT: 237 ms MV A Shamir: 0.88 m/s MV E/A Ratio: 1.10 AV maxP.25 mmHg AV meanP.02 mmHg RAP: 5.00 mmHg RVSP: 34.19 mmHg FINDINGS -------- Sinus rhythm. This was a technically difficult study with suboptimal apical views. The left ventricular size is normal. There is moderate concentric left ventricular hypertrophy. O verall left ventricular systolic function is low-normal with, an EF between 50 - 55 %. Septal wall motion is delayed and consistent with prior cardiac surgery. The right ventricle is moderately enlarged. LA is midly dilated 29-33ml/m2. The right atrial size is normal. 5.0mg of Lumason was utilized for enhancement of images Interatrial and interventricular septum intact. There is no evidence of aortic regurgitation. There is mild aortic stenosis present. Peak/mean gr adient across the Aortic Valve is 29.25mmHg / 17.02mmHg. Mild mitral regurgitation is present. Mild tricuspid regurgitation present. There is mild pulmonary hypertension. The right ventricular systolic pressure, as measured by Doppler, is 34.19mmHg. There is no pulmonic regurgitation present. The aortic root size is normal. IVC Not well visulized. There is no pericardial effusion. CONCLUSIONS -------- 1. The left ventricular size is normal. 2. There is moderate concentric left ventricular hypertrophy. 3. Overall left ventricular systolic function is low-normal with, an EF between 50 - 55 %. 4. The right ventricle is moderately enlarged. 5. LA is midly dilated 29-33ml/m2. 6. There is mild aortic stenosis present. 7. Peak/mean gradient across the Aortic Valve is 29.25mmHg / 17.02mmHg. 8. Mild mitral regurgitation is present. 9. Mild tricuspid regurgitation present. 10. There is mild pulmonary hypertension. 11. The right ventricular systolic pressure, as measured by Doppler, is 34.19mmHg. LOAN SUPERVISOR: Lilibeth Marcial RDCS
--- NOTE | 2021-03-18 16:03 | P.PN ---
Subjective Progress Note Date: 03/18/21 Patrick Banuelos, is a 75-year-old male who presented to [facility] emergency room with a chief complaint of chest pain, patient stated that after he woke up this morning he started having episodes of sharp pain under his left breast, he has a known history of coronary artery disease with h istory of coronary artery bypass graft surgery, and history of chronic atrial fibrillation, he called EMS and was brought in to [facility] emergency room he was given nitroglycerin and aspirin by EMS, his pain resolved prior to arriving to emergency room, patient states that he was feeling weak, otherwise he denies any other symptoms there was no diaphoresis no nausea or vomiting and no shortness of breath. Patient was evaluated in emergency room vital examination on presentation revealed a temperature of 98.1 pulse 57 respirations 17 blood pressure 132/83 pulse ox 97% on room air , laboratory data revealed a white blood count of 7.9 hemoglobin 12.6 platelet count 180 sodium 138 potassium 4.3 chloride 105 CO2 28 BUN 8 creatinine 0.96 troponin level was less than 0.012 coronavirus PCR was not detected, chest x-ray revealed chronic changes without evidence for acute pulmon cecilia disease, EKG revealed normal sinus rhythm with right bundle branch block and left anterior fascicular block, patient was admitted to telemetry floor cardiology consultation was requested. His past medical history is significant for coronary artery disease with history of myocardial infarction in 1991 subsequently patient had coronary artery bypass graft surgery 1 vessel. And since then patient had 4 stent placement. On 03/18/2021 Patient was seen and examined on the medical floor, he is alert and oriented x 3 in no distress, he is still having episodes of sharp pain in the left side of the chest , and today he is complaining of pain in the left calf area , otherwise he denies any complaints there is no fever or chills no headache or dizziness, no shortness of breath no palpitation no cough no nausea or vomiting no abdominal pain no diarrhea no blood in the stools no burning with urination no frequency or urgency and no hematuria, there is no weakness or numbness in any of the extremities no change in vision speech or gait. Objective - Vital Signs Vital signs: Vital Signs Temp 98.1 F 03/18/21 07:00 Pulse 61 03/18/21 07:00 Resp 18 03/18/21 07:00 BP 106/60 03/18/21 07:00 Pulse Ox 91 L 03/18/21 07:00 Intake & Output 03/17/21 03/18/21 03/18/21 18:59 06:59 18:59 Intake Total 180 Output Total 675 200 Balance -495 -200 Weight 109.769 kg Intake: Oral 180 Output: Urine 675 200 Other: Voiding Method Toilet # Voids 3 1 - Exam In general patient is alert and oriented ?-3 in no distress HEENT head normocephalic and atraumatic Neck is supple no JVD no goiter no lymphadenopathy no carotid bruit Chest examination is clear to auscultation no crackles no wheezing Cardiac exam reveals regular heart sounds S1 and S2 no gallops no murmurs Abdomen is soft nontender no organomegaly with normal bowel sounds Extremity exam reveals no edema no cyanosis or clubbing Neurological examination reveals no gross focal deficits - Labs CBC & Chem 7: 03/18/21 05:55 03/18/21 05:55 Labs: Abnormal Lab Results - Last 24 Hours (Table) 03/17/21 03/17/21 03/17/21 Range/Units 10:06 10:06 17:17 RBC 4.16 L (4.30-5.90) m/uL Hgb 12.6 L (13.0-17.5) gm/dL Hct 37.9 L (39.0-53.0) % MCHC (32.0-37.0) g/dL RDW (11.5-14.5) % BUN 8 L (9-20) mg/dL Glucose 136 H (74-99) mg/dL POC Glucose (mg/dL) 114 H (75-99) mg/dL Magnesium 1.4 L (1.6-2.3) mg/dL Total Protein 6.2 L (6.3-8.2) g/dL Albumin 3.2 L (3.5-5.0) g/dL 03/18/21 03/18/21 Range/Units 05:55 07:07 RBC 4.03 L (4.30-5.90) m/uL Hgb 12.0 L (13.0-17.5) gm/dL Hct 38.8 L (39.0-53.0) % MCHC 30.9 L (32.0-37.0) g/dL RDW 14.6 H (11.5-14.5) % BUN (9-20) mg/dL Glucose (74-99) mg/dL POC Glucose (mg/dL) 128 H (75-99) mg/dL Magnesium (1.6-2.3) mg/dL Total Protein (6.3-8.2) g/dL Albumin (3.5-5.0) g/dL Assessment and Plan Plan: 1. Episode of chest pain in a 75-year-old male with multiple cardiac risk fa ctors including previous history of coronary artery disease patient is admitted to telemetry floor cardiology consultation was requested serial troponin level were ordered. 2. Underlying history of coronary artery disease 3. Underlying history of hypertension 4. Underlying history of hyperlipidemia 5. Underlying history of [id number] diabetes mellitus 6. Underlying history of benign prostatic hypertrophy 7. Underlying history of atrial fibrillation maintained on Eliquis 8. Underlying history of gout 9. Underlying history of COPD 10. Left calf pain, will check Doppler of the left lower extremity, although possibility of DVT is very remote due to patient being on Eliquis At this time patient is stable, will monitor on telemetry Will check serial EKG and cardiac enzymes Cardiology consultation requested Home medications reviewed and reordered Will follow closely
[2021-03-18 16:50] LABS: Glucose,Whole Blood 198 mg/dL (75-99)
[2021-03-18] MEDS: ATORVASTATIN 40 MG TAB PO SCH (19:19)
[2021-03-18] MEDS: FINASTERIDE 5 MG TAB PO SCH (19:19)
[2021-03-18] MEDS: MAGNESIUM OXIDE 400 MG TAB PO SCH (19:19)
--- NOTE | 2021-03-18 22:04 | US ---
EXAMINATION TYPE: US venous doppler duplex LE LT DATE OF EXAM: 03/18/2021 4:35 PM COMPARISON: NONE CLINICAL HISTORY: calf pain, r/o dvt. Multiple knee replacements on the left, left calf, pain, h/o di abetic neuropathy, no h/o dvt SIDE PERFORMED: Left TECHNIQUE: The lower extremity deep venous system is examined utilizing real time linear array sonog flor with graded compression, doppler sonography and color-flow sonography. VESSELS IMAGED: Common Femoral Vein Deep Femoral Vein Greater Saphenous Vein * Femoral Vein Popliteal Vein Small Saphenous Vein * Proximal Calf Veins (* superficial vessels) Left Leg: Negative for DVT IMPRESSION: No evidence of left lower extremity DVT.
[2021-03-19] MEDS: LEVOTHYROXINE 112 MCG TAB PO SCH (05:30)
[2021-03-19] MEDS: LEVOTHYROXINE 125 MCG TAB PO SCH (05:30)
[2021-03-19 07:13] VITALS: BP 117/74; PULSE 67; TEMP 97.8
[2021-03-19 07:21] LABS: Glucose,Whole Blood 121 mg/dL (75-99)
[2021-03-19] MEDS: allopurinoL 300 MG TAB PO SCH (07:38)
[2021-03-19] MEDS: PANTOPRAZOLE 40 MG TABLET PO SCH (07:38)
[2021-03-19] MEDS: APIXABAN 5 MG TAB PO SCH (07:38)
[2021-03-19] MEDS: GABAPENTIN 400 MG CAP PO SCH (07:38)
[2021-03-19] MEDS: carvediloL 6.25 MG TAB PO SCH (07:38)
[2021-03-19] MEDS: SYMBICORT 80-4.5 MCG INHALER INHALATION SCH (07:58)
[2021-03-19] MEDS ORDERED: ASPIRIN 81 MG PO SCH (09:00)
--- NOTE | 2021-03-19 10:31 | P.DS ---
Providers Date of admission: 03/17/21 11:07 Expected date of discharge: 03/19/21 Attending physician: Karoline Mg Consults: 03/17/21 11:07 Consult Physician Urgent Consulting Provider: Frederick Vazquez Consult Reason/Comments: chest pain Do you want consulting provider notified?: Yes Primary care physician: Teresa Walter [facility] Course: Discharge diagnosis 1. Episode of chest pain in a 75-year-old male with multiple cardiac risk factors including previous history of coronary artery disease patient is admitted to telemetry floor cardiology consultation was requested serial troponin level were ordered. Troponins negative 3. 2-D echo completed showing EF of 50-55%. Per nursing staff patient has been cleared for discharge from cardiology standpoint 2. Underlying history of coronary artery disease 3. Underlying history of hypertension 4. Underlying history of hyperlipidemia 5. Underlying history of [id number]-ciotvqnna diabetes mellitus 6. Underlying history of benign prostatic hypertrophy 7. Underlying history of atrial fibrillation maintained on Eliquis 8. Underlying history of gout 9. Underlying history of COPD 10. Left calf pain, will check Doppler of the left lower extremity, although possibility of DVT is very remote due to patient being on Eliquis. No evidence of left lower extremity DVT on Doppler Hospital course Patrick Banuelos, is a 75-year-old male who presented to [facility] emergency room with a chief complaint of chest pain, patient stated that after he woke up this morning he started having episodes of sharp pain under his left breast, he has a known history of coronary artery disease with history of coronary artery bypass graft surgery, and history of chronic atrial fibrillation, he called EMS and was brought in to [facility] emergency room he was given nitroglycerin and aspirin by EMS, his pain resolved prior to arriving to emergency room, patient states that he was feeling weak, otherwise he denies any other symptoms there was no diaphoresis no nausea or vomiting and no shortness of breath. Patient was evaluated in emergency room vital examination on presentation revealed a temperature of 98.1 pulse 57 respirations 17 blood pressure 132/83 pulse ox 97% on room air , laboratory data revealed a white blood count of 7.9 hemoglobin 12.6 platelet count 180 sodium 138 potassium 4.3 chloride 105 CO2 28 BUN 8 creatinine 0.96 troponin level was less than 0.012 coronavirus PCR was not detected, chest x-ray revealed chronic changes without evidence for acute pulmonary disease, EKG revealed normal sinus rhythm with right bundle branch block and left anterior fascicular block, patient was admitted to telemetry floor cardiology consultation was requested. His past medical history is significant for coronary artery disease with history of myocardial infarction in 1991 subsequently patient had coronary artery bypass graft surgery 1 vessel. And since then patient had 4 stent placement. On 03/18/2021 Patient was seen and examined on the medical floor, he is alert and oriented x 3 in no distress, he is still having episodes of sharp pain in the left side of the chest , and today he is complaining of pain in the left calf area , otherwise he denies any complaints there is no fever or chills no headache or dizziness, no shortness of breath no palpitation no cough no nausea or vomiting no abdominal pain no diarrhea no blood in the stools no burning with urination no frequency or urgency and no hematuria, there is no weakness or numbness in any of the extremities no change in vision speech or gait. 03/19/2021 patient is alert and oriented 3. Patient denies any chest pain or shortness of breath. Patient denies nausea vomiting or diarrhea. Patient denies any urinary burning or frequency. Patient has been up ambulating without shortness of breath or chest pain. 2-D echo completed reviewed per cardiology. Per nursing staff patient has been cleared for discharge from cardiology standpoint. Venous Doppler completed was negative for DVT. Patient continue home medications and follow up with PCP and cardiology services for further management. Patient Condition at Discharge: Stable Plan - Discharge Summary Discharge Rx Participant: No New Discharge Prescriptions: New Aspirin 81 mg PO DAILY 30 Days #30 chew Continue Allopurinol [Zyloprim] 300 mg PO DAILY Albuterol Sulfate [Proventil Hfa] 1 puff INHALATION RT-Q4H PRN PRN Reason: Shortness Of Breath diazePAM [Valium] 5 mg PO HS PRN PRN Reason: Anxiety/Insomnia Levothyroxine Sodium [Synthroid] 125 mcg PO DAILY Gabapentin 1,200 mg PO TID Levothyroxine Sodium [Synthroid] 112 mcg PO DAILY Nitroglycerin Sl Tabs [Nitrostat] 0.4 mg SL Q5M PRN PRN Reason: Chest Pain Budesonide/Formoterol Fumarate [Symbicort 80-4.5 Mcg Inhaler] 2 puff INHALATION RT-BID Hydrocodone/Acetaminophen [[place] 7.5-325] 1 tab PO TID PRN PRN Reason: Pain Apixaban [Eliquis] 5 mg PO BID metFORMIN HCL 1,000 mg PO BID Magnesium Oxide [Mag-Ox] 500 mg PO HS carvediloL [Coreg] 6.25 mg PO BID Meclizine [Antivert] 25 mg PO BID PRN PRN Reason: dizziness Finasteride [Proscar] 5 mg PO HS Omeprazole 20 mg PO DAILY Atorvastatin [Lipitor] 40 mg PO HS Discharge Medication List Allopurinol [Zyloprim] 300 mg PO DAILY 08/07/17 [History] Albuterol Sulfate [Proventil Hfa] 1 puff INHALATION RT-Q4H PRN 10/15/17 [History] Gabapentin 1,200 mg PO TID 10/02/18 [History] Levothyroxine Sodium [Synthroid] 112 mcg PO DAILY 10/02/18 [History] Levothyroxine Sodium [Synthroid] 125 mcg PO DAILY 10/02/18 [History] Nitroglycerin Sl Tabs [Nitrostat] 0.4 mg SL Q5M PRN 10/02/18 [History] diazePAM [Valium] 5 mg PO HS PRN 10/02/18 [History] Apixaban [Eliquis] 5 mg PO BID 11/07/19 [History] Budesonide/Formoterol Fumarate [Symbicort 80-4.5 Mcg Inhaler] 2 puff INHALATION RT-BID 11/07/19 [History] Hydrocodone/Acetaminophen [[place] 7.5-325] 1 tab PO TID PRN 11/07/19 [History] Atorvastatin [Lipitor] 40 mg PO HS 03/17/21 [History] Finasteride [Proscar] 5 mg PO HS 03/17/21 [History] Magnesium Oxide [Mag-Ox] 500 mg PO HS 03/17/21 [History] Meclizine [Antivert] 25 mg PO BID PRN 03/17/21 [History] Omeprazole 20 mg PO DAILY 03/17/21 [History] carvediloL [Coreg] 6.25 mg PO BID 03/17/21 [History] metFORMIN HCL 1,000 mg PO BID 03/17/21 [History] Aspirin 81 mg PO DAILY 30 Days #30 chew 03/19/21 [Rx] Follow up Appointment(s)/Referral(s): Teresa Walter MD [Primary Care Provider] - 1-2 days Bruno Marie MD [STAFF PHYSICIAN] - 1 Week Activity/Diet/Wound Care/Special Instructions: Activity as tolerated Diet heart healthy Discharge Disposition: HOME SELF-CARE
--- NOTE | 2021-03-19 12:38 | PN ---
PROGRESS NOTE Patrick is a 75-year-old gentleman who was admitted to hospital with chest pain and has known coronary artery disease and prior bypass surgery. This morning he is doing well and is free of symptoms. Denies chest pain, difficulty in breathing or palpitations. On exam, comfortable at rest. Vital signs are stable. Chest exam reveals good air entry bilaterally. Heart exam reveals first and second heart sounds. No gallop. Abdomen is soft. Exam of extremities did not reveal any edema. Peripheral pulses are felt. ASSESSMENT: Precordial chest pain, myocardial infarction ruled out. PLAN: Patient is doing well. We will treat him with optimal medical therapy including aspirin, Lipitor, Coreg. The patient is on Eliquis which he is going to continue. Follow up with Dr. Mac in the office next week. MMODL / IJN: [id number] /
== END 2021-03-19 12:00 | disposition home or self-care (01) ==
LOC: EC 09:50 → 6NMEDSUR 11:07
PROVIDERS: ADMIT Internal Medicine; ATTEND Internal Medicine
DX: R07.2 Precordial pain (principal); I25.10 Atherosclerotic heart disease of native coronary artery without angina pectoris; I10 Essential (primary) hypertension; E78.5 Hyperlipidemia, unspecified; N40.0 Benign prostatic hyperplasia without lower urinary tract symptoms; I48.20 Chronic atrial fibrillation, unspecified; J44.9 Chronic obstructive pulmonary disease, unspecified; M10.9 Gout, unspecified; I45.2 Bifascicular block; Z20.822 Contact with and (suspected) exposure to COVID-19; I25.2 Old myocardial infarction; E11.9 Type 2 diabetes mellitus without complications; E83.42 Hypomagnesemia; E07.9 Disorder of thyroid, unspecified; M79.662 Pain in left lower leg; Z79.890 Hormone replacement therapy; Z79.899 Other long term (current) drug therapy; Z79.84 Long term (current) use of oral hypoglycemic drugs; Z79.01 Long term (current) use of anticoagulants; Z79.51 Long term (current) use of inhaled steroids; Z88.5 Allergy status to narcotic agent; Z91.013 Allergy to seafood; Z88.1 Allergy status to other antibiotic agents; Z88.8 Allergy status to other drugs, medicaments and biological substances; Z91.041 Radiographic dye allergy status; Z90.49 Acquired absence of other specified parts of digestive tract; Z96.652 Presence of left artificial knee joint; Z87.01 Personal history of pneumonia (recurrent); Z87.19 Personal history of other diseases of the digestive system; Z95.1 Presence of aortocoronary bypass graft; Z87.891 Personal history of nicotine dependence; Z83.3 Family history of diabetes mellitus; Z82.49 Family history of ischemic heart disease and other diseases of the circulatory system; Z82.3 Family history of stroke
CPT/HCPCS: 96366 ×2; 96365; 99285; 36415; 94640 ×4; 93005; 80061; 80053 ×2; 83735 ×2; 84484; 85025 ×2; 85610; 85730; 87635; 71046; 93971; G0378 ×3; C8929; S0138 ×2; J3475; Q9950; 93306

== ENCOUNTER 2021-04-06 17:15 | Emergency (ER) | payer MEDICARE ==
[2021-04-06 17:27] VITALS: BP 128/80; PULSE 67; RESP 18; TEMP 97.9
[2021-04-06] MEDS ORDERED: DIPH,PERTUS(ACELL)TETVAC-LF 0.5 ML VIAL IM ONE (17:32)
--- NOTE | 2021-04-06 18:35 | XR ---
PROCEDURE: XR Hip Complete RT - 2V DATE AND TIME: 04/06/2021 5:45 PM CLINICAL INDICATION: Pain after trauma TECHNIQUE: Department protocol COMPARISON: None FINDINGS: There is no fracture or malalignment. The soft tissues are unremarkable. IMPRESSION: NO ACUTE PROCESS.
--- NOTE | 2021-04-06 18:45 | ED ---
General Adult HPI - General Chief complaint: Fall Stated complaint: Fall Time Seen by Provider: 04/06/21 17:25 Source: patient, EMS, RN notes reviewed, old records reviewed Mode of arrival: EMS Limitations: no limitations - History of Present Illness Initial comments: This is a 75-year-old male who presents emergency Department stating he came out of the store and try to negotiate a curb with his cane and tripped him up and he fell and landed on his right hip and hit his right elbow. Patient has full range of motion of the elbow patient has full range of motion of the hip but there is some lateral tenderness. Patient denies any knee pain or ankle pain patient denies any hand pain and wrist pain or shoulder pain. Patient has full range of motion of the elbow with a very superficial abrasion on the elbow. Patient denies any chest pain or back pain. Patient denies any abdominal pain. Patient denies hitting his head or neck knee denies headache or any neck pain. Patient denies any numbness or weakness. - Related Data Home Medications Medication Instructions Recorded Confirmed Allopurinol [Zyloprim] 300 mg PO DAILY 08/07/17 03/17/21 Albuterol Sulfate [Proventil Hfa] 1 puff INHALATION RT-Q4H PRN 10/15/17 03/17/21 Gabapentin 1,200 mg PO TID 10/02/18 03/17/21 Levothyroxine Sodium [Synthroid] 112 mcg PO DAILY 10/02/18 03/17/21 Levothyroxine Sodium [Synthroid] 125 mcg PO DAILY 10/02/18 03/17/21 Nitroglycerin Sl Tabs [Nitrostat] 0.4 mg SL Q5M PRN 10/02/18 03/17/21 diazePAM [Valium] 5 mg PO HS PRN 10/02/18 03/17/21 Apixaban [Eliquis] 5 mg PO BID 11/07/19 03/17/21 Budesonide/Formoterol Fumarate 2 puff INHALATION RT-BID 11/07/19 03/17/21 [Symbicort 80-4.5 Mcg Inhaler] Hydrocodone/Acetaminophen [[place] 1 tab PO TID PRN 11/07/19 03/17/21 7.5-325] Atorvastatin [Lipitor] 40 mg PO HS 03/17/21 03/17/21 Finasteride [Proscar] 5 mg PO HS 03/17/21 03/17/21 Magnesium Oxide [Mag-Ox] 500 mg PO HS 03/17/21 03/17/21 Meclizine [Antivert] 25 mg PO BID PRN 03/17/21 03/17/21 Omeprazole 20 mg PO DAILY 03/17/21 03/17/21 carvediloL [Coreg] 6.25 mg PO BID 03/17/21 03/17/21 metFORMIN HCL 1,000 mg PO BID 03/17/21 03/17/21 Previous Rx's Medication Instructions Recorded Aspirin 81 mg PO DAILY 30 Days #30 chew 03/19/21 Allergies Allergy/AdvReac Type Severity Reaction Status Date / Time cephalexin [From Keflex] Allergy Unknown Verified 04/06/21 17:27 clopidogrel [From Plavix] Allergy Rash/Hives Verified 04/06/21 17:27 codeine Allergy Rash/Nausea Verified 04/06/21 17:27 & Vomiting Iodine and Iodide Containing Allergy Rash/Hives Verified 04/06/21 17:27 Produc levofloxacin [From Levaquin] Allergy urticaria/r Verified 04/06/21 17:27 belle shellfish derived [Shellfish] Allergy urticaria/r Verified 04/06/21 17:27 belle lisinopril AdvReac Angiodema Verified 04/06/21 17:27 of tongue oxycodone AdvReac Hallucinati Verified 04/06/21 17:27 ons solifenacin AdvReac Nausea & Verified 04/06/21 17:27 Vomiting Review of Systems ROS Statement: Those systems with pertinent positive or pertinent negative responses have been documented in the HPI. ROS Other: All systems not noted in ROS Statement are negative. Past Medical History Past Medical History: Atrial Fibrillation, Asthma, Coronary Artery Disease (CAD), COPD, Diabetes Mellitus, Hypertension, Myocardial Infarction ([place]), Pneumonia Additional Past Medical History / Comment(s): left knee cap broken, pancreatitis, /gallstones Last Myocardial Infarction Date:: 2017 History of Any Multi-Drug Resistant Organisms: None Reported Past Surgical History: Cholecystectomy, Coronary Bypass/CABG, Heart Catheterization With Stent, Hernia Repair, Orthopedic Surgery Additional Past Surgical History / Comment(s): lt knee replacement(total of 3 sx), colonoscopy, Past Anesthesia/Blood Transfusion Reactions: No Reported Reaction Date of Last Stent Placement:: 10/2015 Past Psychological History: No Psychological Hx Reported Smoking Status: Former smoker Past Alcohol Use History: Occasional Past Drug Use History: None Reported - Past Family History Father Family Medical History: Diabetes Mellitus Mother Family Medical History: CVA/TIA, Hypertension General Exam - General Exam Comments Initial Comments: GENERAL: Patient is well-developed and well-nourished. Patient is nontoxic and well- hydrated and is in mild distress. ENT: Neck is soft and supple. No significant lymphadenopathy is noted. Oropharynx is clear. Moist mucous membranes. Neck has full range of motion without eliciting any pain. EYES: The sclera were anicteric and conjunctiva were pink and moist. Extraocular movements were intact and pupils were equal round and reactive to light. Eyelids were unremarkable. PULMONARY: Unlabored respirations. Good breath sounds bilaterally. No audible rales rhonchi or wheezing was noted. CARDIOVASCULAR: There is a regular rate and rhythm without any murmurs gallops or rubs. ABDOMEN: Soft and nontender with normal bowel sounds. SKIN: Patient has a superficial abrasion to the right elbow. NEUROLOGIC: Patient is alert and oriented x3. Cranial nerves II through XII are grossly intact. Motor and sensory are also intact. Normal speech, volume and content. Symmetrical smile. MUSCULOSKELETAL: Normal extremities with adequate strength and full range of motion. Patient has some lateral tenderness of the right hip. Patient has full range of motion of the right elbow but there is an abrasion on the right elbow. LYMPHATICS: No significant lymphadenopathy is noted PSYCHIATRIC: Normal psychiatric evaluation. Limitations: no limitations Course Vital Signs 04/06/21 17:21 Temperature 97.9 F Pulse Rate 67 Respiratory 18 Rate Blood Pressure 128/80 O2 Sat by Pulse 93 L Oximetry Medical Decision Making - Medical Decision Making X-ray of the hip and pelvis show no acute abnormality. Patient was able to ambulate without problem. Disposition Clinical Impression: Fall, Abrasion, Contusion, hip Disposition: HOME SELF-CARE Condition: Good Instructions (If sedation given, give patient instructions): Fall Prevention for Older Adults (ED), Contusion in Adults (ED) Is patient prescribed a controlled substance at d/c from ED?: No Referrals: Teresa Walter MD [Primary Care Provider] - 1-2 days Time of Disposition: 18:45
== END 2021-04-06 19:11 | disposition home or self-care (01) ==
LOC: EC 17:15
DX: S70.01XA Contusion of right hip, initial encounter (principal); S60.811A Abrasion of right wrist, initial encounter; I48.91 Unspecified atrial fibrillation; J45.909 Unspecified asthma, uncomplicated; I25.10 Atherosclerotic heart disease of native coronary artery without angina pectoris; J44.9 Chronic obstructive pulmonary disease, unspecified; E11.9 Type 2 diabetes mellitus without complications; I10 Essential (primary) hypertension; I25.2 Old myocardial infarction; Z90.49 Acquired absence of other specified parts of digestive tract; Z95.5 Presence of coronary angioplasty implant and graft; Z95.1 Presence of aortocoronary bypass graft; Z87.891 Personal history of nicotine dependence; W01.0XXA Fall on same level from slipping, tripping and stumbling without subsequent striking against object, initial encounter; Z23 Encounter for immunization; Z79.84 Long term (current) use of oral hypoglycemic drugs
CPT/HCPCS: 73502; 90471; 90715; 99284

== ENCOUNTER 2021-04-08 10:51 | Emergency (ER) | payer MEDICARE ==
[2021-04-08 10:56] VITALS: BP 118/78; PULSE 65; RESP 18; TEMP 97.4
--- NOTE | 2021-04-08 11:56 | ED ---
Upper Extremity HPI - General Chief Complaint: Extremity Injury, Upper Stated Complaint: Pain in R Shoulder Time Seen by Provider: 04/08/21 11:15 Source: patient, family, RN notes reviewed Mode of arrival: wheelchair Limitations: no limitations - History of Present Illness Initial Comments: 75-year-old male presents emergency Department chief complaint right shoulder pain. Patient seen here a few days ago after he stepped off the side of a curb states though. Patient complaint of right hip pain which he had x-rays are negative. Patient states he felt like he may have feliz his right shoulder is now become more painful. No paresthesias no chest pain or shortness breath no headache or dizziness. Patient has increased pain with movement. - Related Data Home Medications Medication Instructions Recorded Confirmed Allopurinol [Zyloprim] 300 mg PO DAILY 08/07/17 03/17/21 Albuterol Sulfate [Proventil Hfa] 1 puff INHALATION RT-Q4H PRN 10/15/17 03/17/21 Gabapentin 1,200 mg PO TID 10/02/18 03/17/21 Levothyroxine Sodium [Synthroid] 112 mcg PO DAILY 10/02/18 03/17/21 Levothyroxine Sodium [Synthroid] 125 mcg PO DAILY 10/02/18 03/17/21 Nitroglycerin Sl Tabs [Nitrostat] 0.4 mg SL Q5M PRN 10/02/18 03/17/21 diazePAM [Valium] 5 mg PO HS PRN 10/02/18 03/17/21 Apixaban [Eliquis] 5 mg PO BID 11/07/19 03/17/21 Budesonide/Formoterol Fumarate 2 puff INHALATION RT-BID 11/07/19 03/17/21 [Symbicort 80-4.5 Mcg Inhaler] Hydrocodone/Acetaminophen [[place] 1 tab PO TID PRN 11/07/19 03/17/21 7.5-325] Atorvastatin [Lipitor] 40 mg PO HS 03/17/21 03/17/21 Finasteride [Proscar] 5 mg PO HS 03/17/21 03/17/21 Magnesium Oxide [Mag-Ox] 500 mg PO HS 03/17/21 03/17/21 Meclizine [Antivert] 25 mg PO BID PRN 03/17/21 03/17/21 Omeprazole 20 mg PO DAILY 03/17/21 03/17/21 carvediloL [Coreg] 6.25 mg PO BID 03/17/21 03/17/21 metFORMIN HCL 1,000 mg PO BID 03/17/21 03/17/21 Previous Rx's Medication Instructions Recorded Aspirin 81 mg PO DAILY 30 Days #30 chew 03/19/21 Allergies Allergy/AdvReac Type Severity Reaction Status Date / Time cephalexin [From Keflex] Allergy Unknown Verified 04/08/21 10:54 clopidogrel [From Plavix] Allergy Rash/Hives Verified 04/08/21 10:54 codeine Allergy Rash/Nausea Verified 04/08/21 10:54 & Vomiting Iodine and Iodide Containing Allergy Rash/Hives Verified 04/08/21 10:54 Produc levofloxacin [From Levaquin] Allergy urticaria/r Verified 04/08/21 10:54 belle shellfish derived [Shellfish] Allergy urticaria/r Verified 04/08/21 10:54 belle lisinopril AdvReac Angiodema Verified 04/08/21 10:54 of tongue oxycodone AdvReac Hallucinati Verified 04/08/21 10:54 ons solifenacin AdvReac Nausea & Verified 04/08/21 10:54 Vomiting Review of Systems ROS Statement: Those systems with pertinent positive or pertinent negative responses have been documented in the HPI. ROS Other: All systems not noted in ROS Statement are negative. Past Medical History Past Medical History: Atrial Fibrillation, Asthma, Coronary Artery Disease (CAD), COPD, Diabetes Mellitus, Hypertension, Myocardial Infarction ([place]), Pneumonia Additional Past Medical History / Comment(s): left knee cap broken, pancreatitis, /gallstones Last Myocardial Infarction Date:: 2017 History of Any Multi-Drug Resistant Organisms: None Reported Past Surgical History: Cholecystectomy, Coronary Bypass/CABG, Heart Catheterization With Stent, Hernia Repair, Orthopedic Surgery Additional Past Surgical History / Comment(s): lt knee replacement(total of 3 sx), colonoscopy, Past Anesthesia/Blood Transfusion Reactions: No Reported Reaction Date of Last Stent Placement:: 10/2015 Past Psychological History: No Psychological Hx Reported Smoking Status: Former smoker Past Alcohol Use History: Occasional Past Drug Use History: None Reported - Past Family History Father Family Medical History: Diabetes Mellitus Mother Family Medical History: CVA/TIA, Hypertension General Exam Limitations: no limitations General appearance: alert, in no apparent distress Head exam: Present: atraumatic, normocephalic, normal inspection Respiratory exam: Present: normal lung sounds bilaterally. Absent: respiratory distress, wheezes, rales, rhonchi, stridor Cardiovascular Exam: Present: regular rate, normal rhythm, normal heart sounds. Absent: systolic murmur, diastolic murmur, rubs, gallop, clicks Extremities exam: Present: other (Right shoulder there is no tenderness of the clavicle region, anterolateral right shoulder tenderness with pain with range of motion decreased range of motion neurovascular intact) Skin exam: Present: warm, dry, intact, normal color. Absent: rash Course Vital Signs 04/08/21 10:54 Temperature 97.4 F L Pulse Rate 65 Respiratory 18 Rate Blood Pressure 118/78 O2 Sat by Pulse 95 Oximetry Medical Decision Making - Medical Decision Making 75-year-old presented for fall right shoulder injury x-rays were negative patient has Right rotator cuff strain follow-up with his orthopedic physician Dr. Maria and therapy on Saturday. Disposition Clinical Impression: Right shoulder strain Disposition: HOME SELF-CARE Condition: Stable Instructions (If sedation given, give patient instructions): Shoulder Sprain (ED) Additional Instructions: Please return to the Emergency Department if symptoms worsen or any other concerns. Is patient prescribed a controlled substance at d/c from ED?: No Referrals: Teresa Walter MD [Primary Care Provider] - 1-2 days Dru Maria DO [Doctor of Osteopathic Medicine] - 1-2 days Time of Disposition: 12:48
--- NOTE | 2021-04-08 12:19 | XR ---
EXAMINATION TYPE: XR shoulder complete RT DATE OF EXAM: 04/08/2021 Comparison: None Clinical History: 75-year-old male fall, pain Findings: Moderate degenerative change at the AC joint. Bony irregularity at the greater tuberosity. Subacromia l space observed. No acute fracture, subluxation, dislocation. Median sternotomy wires. Mild degenera tive spurring at the GH joint. Impression: Moderate AC joint OA. Bony changes of the greater tuberosity suggests chronic rotator cuff tendinopat hy. No acute osseous abnormality seen.
== END 2021-04-08 13:05 | disposition home or self-care (01) ==
LOC: EC 10:51
DX: S46.011A Strain of muscle(s) and tendon(s) of the rotator cuff of right shoulder, initial encounter (principal); J44.9 Chronic obstructive pulmonary disease, unspecified; I10 Essential (primary) hypertension; I25.2 Old myocardial infarction; E11.9 Type 2 diabetes mellitus without complications; I48.91 Unspecified atrial fibrillation; I25.10 Atherosclerotic heart disease of native coronary artery without angina pectoris; Z95.1 Presence of aortocoronary bypass graft; Z87.891 Personal history of nicotine dependence; Z88.1 Allergy status to other antibiotic agents; Z88.8 Allergy status to other drugs, medicaments and biological substances; Z88.5 Allergy status to narcotic agent; Z91.013 Allergy to seafood; Z79.899 Other long term (current) drug therapy; Z79.01 Long term (current) use of anticoagulants; Z79.84 Long term (current) use of oral hypoglycemic drugs; W10.1XXA Fall (on)(from) sidewalk curb, initial encounter; Y92.009 Unspecified place in unspecified non-institutional (private) residence as the place of occurrence of the external cause
CPT/HCPCS: 99283

== ENCOUNTER 2021-06-16 14:59 | Inpatient (IN) | payer MEDICARE ==
[2021-06-16] MEDS ORDERED: FAMOTIDINE 20 MG/2 ML VIAL IV STA (15:18)
[2021-06-16] MEDS ORDERED: diphenhydrAMINE 50 MG/ML 1 ML VIAL IVP STA (15:18)
[2021-06-16] MEDS ORDERED: methylPREDNISolone SOD SUCCI 125 MG/2 ML VIAL IV STA (15:18)
--- NOTE | 2021-06-16 15:40 | CT ---
EXAMINATION TYPE: CT brain wo con for TPA DATE OF EXAM: 06/16/2021 HISTORY: Altered mental status. Vertigo. CT DLP: 1102.8 mGycm. Automated Exposure Control for Dose Reduction was Utilized. TECHNIQUE: CT scan of the head is performed without contrast. COMPARISON: CT brain August 19, 2020. FINDINGS: There is no acute intracranial hemorrhage or midline shift identified. There is mild-to-m oderate diffuse ventricular and sulcal prominence consistent with diffuse age-related cerebral atroph y greatest over the bilateral frontal lobes redemonstrated. There is mild low-attenuation in the per iventricular white matter consistent with chronic small vessel ischemic change. The globes are intac t and the visualized sinuses are clear. Partial opacification left mastoid air cells redemonstrated s imilar to prior, correlate clinically to exclude acute mastoiditis versus retained secretions. IMPRESSION: No acute intracranial hemorrhage or midline shift. No significant change from prior.
[2021-06-16] MEDS ORDERED: Alteplase PER PHARMACY Stroke 1 EACH MISC MISCELLANE PRN (15:42)
[2021-06-16] MEDS ORDERED: ALTEPLASE 81 MG in EMPTY BAG 1 BAG IV STA (15:43)
[2021-06-16] MEDS ORDERED: ALTEPLASE BOLUS FOR STROKE 9 MG in EMPTY SYRINGE 1 SYR IV STA (15:43)
--- NOTE | 2021-06-16 15:43 | ED ---
General Adult HPI - General Chief complaint: Neuro Symptoms/Deficit Stated complaint: stroke symptoms Time Seen by Provider: 06/16/21 15:05 Source: patient, EMS, RN notes reviewed, old records reviewed Mode of arrival: EMS Limitations: no limitations - History of Present Illness Initial comments: Patient is a 75 her old male with past medical history remarkable for atrial fibrillation, asthma is, CAD, COPD, multiple cardiac stents, diabetes, hypertens ion, chronic left knee and foreleg pain who presents emergency Department after nursing liposomal driving. Patient was driving with his daughter when he was passed out. He experienced slurred speech as well as left-sided weakness. It waxed and waned for EMS, however they brought him to the emergency department for stroke rule out. His no history of strokes. His no history of any adverse bleeding at all. Patient is on [place] for A. fib and off is SINCE Saturday due to a procedure today that he received this morning, which involving local nerve block of the left knee. He denies any other pain at this time, including chest pain, abdominal pain, nausea, vomiting. Denies any headaches. His no other acute complaints at this time. Patient presents to emergency department for strokelike symptoms. Last known well was 2:40 PM. He has no history of strokes and a history of residual deficits. He is having difficulty moving his left knee since the nerve block this morning. He states he is still somewhat numb from the knee down on the left side. However this is chronic since the nerve block this morning. - Related Data Home Medications Medication Instructions Recorded Confirmed Allopurinol [Zyloprim] 300 mg PO DAILY 08/07/17 06/16/21 Albuterol Sulfate [Proventil Hfa] 1 puff INHALATION RT-Q4H PRN 10/15/17 06/16/21 Gabapentin 1,200 mg PO TID 10/02/18 06/16/21 Levothyroxine Sodium [Synthroid] 112 mcg PO DAILY 10/02/18 06/16/21 Levothyroxine Sodium [Synthroid] 125 mcg PO DAILY 10/02/18 06/16/21 Nitroglycerin Sl Tabs [Nitrostat] 0.4 mg SL Q5M PRN 10/02/18 06/16/21 diazePAM [Valium] 5 mg PO HS PRN 10/02/18 06/16/21 Apixaban [Eliquis] 5 mg PO BID 11/07/19 06/16/21 Budesonide/Formoterol Fumarate 2 puff INHALATION RT-BID 11/07/19 06/16/21 [Symbicort 80-4.5 Mcg Inhaler] Hydrocodone/Acetaminophen [[place] 1 tab PO BID PRN 11/07/19 06/16/21 7.5-325] Atorvastatin [Lipitor] 40 mg PO HS 03/17/21 06/16/21 Finasteride [Proscar] 5 mg PO HS 03/17/21 06/16/21 Magnesium Oxide [Mag-Ox] 500 mg PO HS 03/17/21 06/16/21 Meclizine [Antivert] 25 mg PO BID PRN 03/17/21 06/16/21 Omeprazole 20 mg PO DAILY 03/17/21 06/16/21 carvediloL [Coreg] 6.25 mg PO BID 03/17/21 06/16/21 metFORMIN HCL [Glucophage] 1,000 mg PO BID 03/17/21 06/16/21 Allergies Allergy/AdvReac Type Severity Reaction Status Date / Time cephalexin [From Keflex] Allergy Unknown Verified 06/16/21 17:03 clopidogrel [From Plavix] Allergy Rash/Hives Verified 06/16/21 17:03 codeine Allergy Rash/Nausea Verified 06/16/21 17:03 & Vomiting Iodine and Iodide Containing Allergy Rash/Hives Verified 06/16/21 17:03 Produc levofloxacin [From Levaquin] Allergy urticaria/r Verified 06/16/21 17:03 belle shellfish derived [Shellfish] Allergy urticaria/r Verified 06/16/21 17:03 belle lisinopril AdvReac Angiodema Verified 06/16/21 17:03 of tongue oxycodone AdvReac Hallucinati Verified 06/16/21 17:03 ons solifenacin AdvReac Nausea & Verified 06/16/21 17:03 Vomiting Review of Systems ROS Statement: Those systems with pertinent positive or pertinent negative responses have been documented in the HPI. Review of Systems: CONST: Denies fever EYES: Denies blurry vision ENT: Denies nasal congestion C/V: Denies Chest pain RESP: Denies shortness of breath GI: Denies abdominal pain : Denies dysuria SKIN: Denies rash. MSK: Endorses chronic left leg pain. Endorses left lower extremity numbness sec ondary to nerve block NEURO: Endorses slurred speech, left arm weakness ROS Other: All systems not noted in ROS Statement are negative. Past Medical History Past Medical History: Atrial Fibrillation, Asthma, Coronary Artery Disease ([place] D), COPD, Diabetes Mellitus, Hypertension, Myocardial Infarction ([place]), Pneumonia Additional Past Medical History / Comment(s): left knee cap broken, pancreatitis, /gallstones Last Myocardial Infarction Date:: 2017 History of Any Multi-Drug Resistant Organisms: None Reported Past Surgical History: Cholecystectomy, Coronary Bypass/CABG, Heart Catheterization With Stent, Hernia Repair, Orthopedic Surgery Additional Past Surgical History / Comment(s): lt knee replacement(total of 3 sx), colonoscopy, Past Anesthesia/Blood Transfusion Reactions: No Reported Reaction Date of Last Stent Placement:: 10/2015 Past Psychological History: No Psychological Hx Reported Smoking Status: Former smoker Past Alcohol Use History: Occasional Past Drug Use History: None Reported - Past Family History Father Family Medical History: Diabetes Mellitus Mother Family Medical History: CVA/TIA, Hypertension General Exam - General Exam Comments Initial Comments: General: Appears in no acute distress. HEAD: Normal with no signs of head trauma. EYES: PERRLA, EOMI, conjunctiva normal, no discharge. Pupils are 3 mm and reactive bilaterally. ENT: Hearing grossly intact, normal oropharynx. Patient does have slight left- sided facial droop. RESPIRATORY: Clear breath sounds bilaterally. No wheezes, rales, or rhonchi. C/V: Regular rate and rhythm. S1 and S2 auscultated, no edema, peripheral pulses 2+ and intact throughout ABD: Abd is soft, nontender, nondistended EXT: Normal range of motion, no obvious deformity SKIN: No rashes or lesions observed on exposed skin. NEURO: Alert and oriented 4. NIH stroke scale is 3-4, 1 for dysarthria, 1 point for a sided facial droop, 1 point for left upper extremity drift. Patient also has left lower extremity weakness 4/5 which we will give 1 for as well. This difficult to evaluate for drift as patient is having issues lifting his leg secondary to his nerve block earlier today. GCS is 15. Cranial nerves II through XII are intact. Cerebellar function is normal as evident by normal finger to nose testing. Limitations: no limitations Course Vital Signs 06/16/21 06/16/21 06/16/21 15:11 15:15 15:30 Temperature 98 F 98.1 F 98 F Pulse Rate 84 72 93 Respiratory 18 18 16 Rate Blood Pressure 133/73 127/70 93/56 O2 Sat by Pulse 98 96 95 Oximetry 06/16/21 06/16/21 06/16/21 15:45 16:16 17:00 Temperature 98 F 98.1 F 98 F Pulse Rate 71 71 78 Respiratory 18 18 18 Rate Blood Pressure 110/66 110/63 119/73 O2 Sat by Pulse 95 96 95 Oximetry 06/16/21 06/16/21 06/16/21 17:15 17:30 17:45 Temperature 98 F 98 F 98 F Pulse Rate 77 80 80 Respiratory 18 18 18 Rate Blood Pressure 95/61 107/56 98/61 O2 Sat by Pulse 95 95 95 Oximetry 06/16/21 06/16/21 06/16/21 18:00 18:15 18:45 Temperature 98 F 97.9 F 98 F Pulse Rate 80 73 75 Respiratory 18 18 18 Rate Blood Pressure 104/59 93/60 114/71 O2 Sat by Pulse 95 98 Oximetry 06/16/21 06/16/21 06/16/21 19:09 19:39 20:09 Temperature 98.2 F 98.0 F 98.4 F Pulse Rate 75 70 71 Respiratory 18 18 18 Rate Blood Pressure 125/69 119/107 115/82 O2 Sat by Pulse 97 96 97 Oximetry 06/16/21 06/16/21 06/16/21 20:39 21:09 21:39 Temperature Pulse Rate 70 71 70 Respiratory 18 18 18 Rate Blood Pressure 129/74 130/86 129/74 O2 Sat by Pulse 98 97 97 Oximetry 06/16/21 22:09 Temperature Pulse Rate 64 Respiratory 18 Rate Blood Pressure 113/60 O2 Sat by Pulse 96 Oximetry Medical Decision Making - Medical Decision Making Based on the patient's presentation and physical exam, I'm concerned for an ac [place] stroke. Code stroke was called. [id number] blood glucose was within normal limits. The for stroke labs will be ordered. EKG and chest x-ray will be ordered. We will obtain CT head as well as CTA brain and neck. He'll be connected to continuous cardiac monitoring while is here in the department. Patient is a borderline TPA candidate, as he is normally on Elliquis, however is not been taking it for multiple days due to his recent left knee nerve block today. Therefore there is a relative contraindication for bleeding at this time. Patient's last known well was at 2:40 PM, and he is in the window for tpa. We will discuss this with the patient as well as his daughter after his i maging. Patient's laboratory studies revealed an elevated TSH of 5. Troponin is negative. Urine is unremarkable. The remainder of his labs are unremarkable. Patient's EKG showed no signs of acute ischemia. CT head revealed no acute intracranial hemorrhage or midline shift. CTA head revealed no signs of acute blockage. This was reviewed by the on-call neuro interventions, Dr. Pichardo. The read by radiology revealed mild stenosis of the proximal V4 segment as well as atherosclerotic narrowing. There is a mild diffuse for dilation of the right carotid terminus up to 5 mm. This may represent a mild fusiform aneurysm. There is no large vessel intracranial arterial occlusion or otherwise any other significant stenosis seen. Chest x-ray revealed no acute cardiopulmonary process. At there are no signs of acute hemorrhagic stroke at this time, as well as no signs of acute ischemic stroke or blockages seen and CTA imaging, the neurologist Dr. Pichardo and myself both spoke with the patient and his daughter. We went over the risks and benefits of providing alteplase to the patient, in cluding the possibility of intracranial bleed and . He also has an additional risk for possible left lower extremity due to the recent nerve block. Exposed understanding of these risks and decided to go forward with the TPA administration. They consent to alteplase administration. Alteplase was started at 1550. Patient will be admitted to the ICU. I spoke with the on-call neurologist, Dr. Arvizu, who was in agreement with the plan and will evaluate the patient. I spoke with the geography professor, Dr. Patterson and, who accepted the patient to ICU. I spoke with the patient's admitting phys ician, Dr. Mg who was also in agreement with the plan. Patient was therefore admitted to the ICU in serious condition. Patient remained held in the emergency department until bed was available. Repeat NIH was closer to 0-1 at this time. This was at approximately 5:20 PM. - Lab Data Result diagrams: 06/16/21 15:34 06/16/21 15:34 Lab Results 06/16/21 06/16/21 06/16/21 Range/Units 15:34 15:34 15:34 WBC 9.8 (3.8-10.6) k/uL RBC 4.51 (4.30-5.90) m/uL Hgb 13.3 (13.0-17.5) gm/dL Hct 42.4 (39.0-53.0) % MCV 94.0 (80.0-100.0) fL MCH 29.5 (25.0-35.0) pg MCHC 31.3 (31.0-37.0) g/dL RDW 14.0 (11.5-15.5) % Plt Count 242 (150-450) k/uL MPV 7.7 Neutrophils % 80 % Lymphocytes % 9 % Monocytes % 7 % Eosinophils % 2 % Basophils % 1 % Neutrophils # 7.8 H (1.3-7.7) k/uL Lymphocytes # 0.9 L (1.0-4.8) k/uL Monocytes # 0.7 (0-1.0) k/uL Eosinophils # 0.2 (0-0.7) k/uL Basophils # 0.1 (0-0.2) k/uL Hypochromasia Slight PT 10.8 (9.0-12.0) sec INR 1.0 (<1.2) APTT 27.0 (22.0-30.0) sec Sodium 136 L (137-145) mmol/L Potassium 4.2 (3.5-5.1) mmol/L Chloride 103 (98-107) mmol/L Carbon Dioxide 22 (22-30) mmol/L Anion Gap 11 mmol/L BUN 12 (9-20) mg/dL Creatinine 1.01 (0.66-1.25) mg/dL Est GFR (CKD-EPI)AfAm 83 (>60 ml/min/1.73 sqM) Est GFR (CKD-EPI)NonAf 72 (>60 ml/min/1.73 sqM) Glucose 248 H (74-99) mg/dL POC Glucose (mg/dL) (75-99) mg/dL POC Glu Domestic Cleaner ID Calcium 9.1 (8.4-10.2) mg/dL Total Bilirubin 0.8 (0.2-1.3) mg/dL AST 18 (17-59) U/L ALT 7 (4-49) U/L Alkaline Phosphatase 78 (38-126) U/L Troponin I (0.000-0.034) ng/mL Total Protein 7.0 (6.3-8.2) g/dL Albumin 3.6 (3.5-5.0) g/dL TSH (0.465-4.680) mIU/L Free T4 (0.78-2.19) ng/dL Urine Color Urine Appearance (Clear) Urine pH (5.0-8.0) Ur Specific [place] (1.001-1.035) Urine Protein (Negative) Urine Glucose (UA) (Negative) Urine Ketones (Negative) Urine Blood (Negative) Urine Nitrite (Negative) Urine Bilirubin (Negative) Urine Urobilinogen (<2.0) mg/dL Ur Leukocyte Esterase (Negative) 06/16/21 06/16/21 06/16/21 Range/Units 15:34 15:34 15:48 WBC (3.8-10.6) k/uL RBC (4.30-5.90) m/uL Hgb (13.0-17.5) gm/dL Hct (39.0-53.0) % MCV (80.0-100.0) fL MCH (25.0-35.0) pg MCHC (31.0-37.0) g/dL RDW (11.5-15.5) % Plt Count (150-450) k/uL MPV Neutrophils % % Lymphocytes % % Monocytes % % Eosinophils % % Basophils % % Neutrophils # (1.3-7.7) k/uL Lymphocytes # (1.0-4.8) k/uL Monocytes # (0-1.0) k/uL Eosinophils # (0-0.7) k/uL Basophils # (0-0.2) k/uL Hypochromasia PT (9.0-12.0) sec INR (<1.2) APTT (22.0-30.0) sec Sodium (137-145) mmol/L Potassium (3.5-5.1) mmol/L Chloride (98-107) mmol/L Carbon Dioxide (22-30) mmol/L Anion Gap mmol/L BUN (9-20) mg/dL Creatinine (0.66-1.25) mg/dL Est GFR (CKD-EPI)AfAm (>60 ml/min/1.73 sqM) Est GFR (CKD-EPI)NonAf (>60 ml/min/1.73 sqM) Glucose (74-99) mg/dL POC Glucose (mg/dL) 180 H (75-99) mg/dL POC Glu Domestic [employer] Ketty Leonard Calcium (8.4-10.2) mg/dL Total Bilirubin (0.2-1.3) mg/dL AST (17-59) U/L ALT (4-49) U/L Alkaline Phosphatase (38-126) U/L Troponin I <0.012 (0.000-0.034) ng/mL Total Protein (6.3-8.2) g/dL Albumin (3.5-5.0) g/dL TSH 5.080 H (0.465-4.680) mIU/L Free T4 1.59 (0.78-2.19) ng/dL Urine Color Urine Appearance (Clear) Urine pH (5.0-8.0) Ur Specific [place] (1.001-1.035) Urine Protein (Negative) Urine Glucose (UA) (Negative) Urine Ketones (Negative) Urine Blood (Negative) Urine Nitrite (Negative) Urine Bilirubin (Negative) Urine Urobilinogen (<2.0) mg/dL Ur Leukocyte Esterase (Negative) 06/16/21 Range/Units 16:12 WBC (3.8-10.6) k/uL RBC (4.30-5.90) m/uL Hgb (13.0-17.5) gm/dL Hct (39.0-53.0) % MCV (80.0-100.0) fL MCH (25.0-35.0) pg MCHC (31.0-37.0) g/dL RDW (11.5-15.5) % Plt Count (150-450) k/uL MPV Neutrophils % % Lymphocytes % % Monocytes % % Eosinophils % % Basophils % % Neutrophils # (1.3-7.7) k/uL Lymphocytes # (1.0-4.8) k/uL Monocytes # (0-1.0) k/uL Eosinophils # (0-0.7) k/uL Basophils # (0-0.2) k/uL Hypochromasia PT (9.0-12.0) sec INR (<1.2) APTT (22.0-30.0) sec Sodium (137-145) mmol/L Potassium (3.5-5.1) mmol/L Chloride (98-107) mmol/L Carbon Dioxide (22-30) mmol/L Anion Gap mmol/L BUN (9-20) mg/dL Creatinine (0.66-1.25) mg/dL Est GFR (CKD-EPI)AfAm (>60 ml/min/1.73 sqM) Est GFR (CKD-EPI)NonAf (>60 ml/min/1.73 sqM) Glucose (74-99) mg/dL POC Glucose (mg/dL) (75-99) mg/dL POC Glu Domestic Cleaner ID Calcium (8.4-10.2) mg/dL Total Bilirubin (0.2-1.3) mg/dL AST (17-59) U/L ALT (4-49) U/L Alkaline Phosphatase (38-126) U/L Troponin I (0.000-0.034) ng/mL Total Protein (6.3-8.2) g/dL Albumin (3.5-5.0) g/dL TSH (0.465-4.680) mIU/L Free T4 (0.78-2.19) ng/dL Urine Color Yellow Urine Appearance Clear (Clear) Urine pH 6.0 (5.0-8.0) Ur Specific [place] 1.026 (1.001-1.035) Urine Protein Trace H (Negative) Urine Glucose (UA) Negative (Negative) Urine Ketones Negative (Negative) Urine Blood Negative (Negative) Urine Nitrite Negative (Negative) Urine Bilirubin Negative (Negative) Urine Urobilinogen <2.0 (<2.0) mg/dL Ur Leukocyte Esterase Negative (Negative) - EKG Data -: EKG Interpreted by Me EKG Comments: 12-lead Electrocardiogram Interpretation Note EKG was reviewed and interpreted by myself. 12-lead ECG performed at 1508 is interpreted by me as revealing normal sinus rhythm at a rate of 77 beats per minute. Left axis deviation. ME intervals 184 ms, QRS durations 168 ms, QTc is 111. There are no ST or T-wave abnormalities that are acute. Patient does have a history of right bundle branch block and left anterior fascicular block. Patient also has PVCs present. This is also seen on prior EKGs. There are T- wave inversions in lead aVF, V2 through V4 which are chronic as well.. R wave progression across the precordium is delayed.. By my interpretation this EKG is non-diagnostic for acute ischemia. Just chronic changes seen on prior EKGs. Disposition Clinical Impression: CVA (cerebral vascular accident), History of atrial fibrillation, Dysarthria, Chronic leg pain, History of diabetes mellitus Disposition: ADMITTED IP TO THIS HOSP Condition: Serious Referrals: Teresa Walter MD [Primary Care Provider] - 1-2 days
[2021-06-16 15:50] LABS: Glucose,Whole Blood 180 mg/dL (75-99)
--- NOTE | 2021-06-16 16:04 | CT ---
EXAMINATION TYPE: CT angio head neck DATE OF EXAM: 06/16/2021 COMPARISON: Correlation noncontrast CT brain same day HISTORY: 75-year-old male neurologic deficit, acute, stroke suspected. Altered mental status. TECHNIQUE: Contiguous axial scanning of the head and neck performed with IV Contrast, patient injecte d with 65ml mL of Isovue 370. Coronal/sagittal MIP reconstructions performed. 3-D reconstructions gen erated on a dedicated independent workstation. CT DLP: 629.2 mGycm Automated exposure control for dose reduction was used. FINDINGS: NECK: Median sternotomy wires. Prominent mediastinal lymph nodes measuring up to 1.1 cm probably reactive/p ost inflammatory. Mild atherosclerotic arch calcifications. There is very direct takeoff of the left vertebral artery d irectly from the aortic arch. The left vertebral artery is slightly more dominant and both are patent throughout their course. The right common carotid artery is patent. Minimal atherosclerotic change at the right carotid bifurcation without any significant ICA stenosis by NASCET criteria. Left common carotid artery is patent. Minimal atherosclerotic change at the left bifurcation there are no significant ICA stenosis. Some septal lines in the visualized upper lungs. Correlate to exclude underlying fibrosis or fluid ov erload state. HEAD: Moderate to severe focal atherosclerotic narrowing proximal V4 segment right vertebral artery. Moderate atherosclerotic narrowing mid V4 segment left vertebral artery. Basilar artery and remainder of the posterior circulation are patent. Mild atherosclerotic change at the carotid siphons. Moderate atherosclerotic narrowing of the supracl inoid left ICA. Mild fusiform dilatation at the right carotid terminus measuring up to 5 mm versus 3. 5 mm on the contralateral side. Otherwise, the anterior circulation is patent. No other aneurysmal change is seen. IMPRESSION: NECK: 1. NO SIGNIFICANT ICA STENOSIS ON EITHER SIDE. 2. VARIANT DIRECT TAKEOFF OF THE LEFT VERTEBRAL ARTERY DIRECTLY FROM THE AORTIC ARCH. HEAD: 3. MODERATE TO SEVERE FOCAL ATHEROSCLEROTIC STENOSIS PROXIMAL V4 SEGMENT RIGHT VERTEBRAL ARTERY. 4. MODERATE ATHEROSCLEROTIC NARROWING MID V4 SEGMENT LEFT VERTEBRAL ARTERY. 5. MODERATE STENOSIS SUPRACLINOID LEFT ICA. 6. MILD FUSIFORM DILATATION OF THE RIGHT CAROTID TERMINUS UP TO 5 MM (IN COMPARISON TO 3.5 MM ON THE CONTRALATERAL SIDE). 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 7. NO LARGE VESSEL INTRACRANIAL ARTERIAL OCCLUSION OR OTHERWISE ANY OTHER SIGNIFICANT STENOSIS SEEN.
[2021-06-16 16:12] LABS: Basophils # (A) 0.1 k/uL (0-0.2); Basophils % (A) 1 %; Eosinophils # (A) 0.2 k/uL (0-0.7); Eosinophils % (A) 2 %; HCT 42.4 % (39.0-53.0); HGB 13.3 gm/dL (13.0-17.5); Hypochromasia Slight; Lymphocytes # (A) 0.9 k/uL (1.0-4.8); Lymphocytes % (A) 9 %; MCH 29.5 pg (25.0-35.0); MCHC 31.3 g/dL (31.0-37.0); Mean Platelet Volume 7.7; Monocytes # (A) 0.7 k/uL (0-1.0); Monocytes % (A) 7 %; Neutrophils # (A) 7.8 k/uL (1.3-7.7); Neutrophils % (A) 80 %; Platelet Count 242 k/uL (150-450); RBC 4.51 m/uL (4.30-5.90); WBC 9.8 k/uL (3.8-10.6)
[2021-06-16 16:15] LABS: Prothrombin Time 10.8 sec (9.0-12.0)
[2021-06-16 16:19] LABS: Albumin 3.6 g/dL (3.5-5.0); Calcium 9.1 mg/dL (8.4-10.2); Potassium 4.2 mmol/L (3.5-5.1); Total Bilirubin 0.8 mg/dL (0.2-1.3)
[2021-06-16] MEDS ORDERED: MORPHINE SULFATE 2 MG/ML SYRINGE IVP STA (16:21)
[2021-06-16 16:33] LABS: Appearance,Urine Clear (Clear); Bilirubin,Urine Negative (Negative); Blood,Urine Negative (Negative); Color,Urine Yellow; Glucose,Urine (UA) Negative (Negative); Ketones,Urine Negative (Negative); Leukocyte Esterase,Urine Negative (Negative); Nitrite,Urine Negative (Negative); Protein,Urine Trace (Negative); Specific Gravity,Urine 1.026 (1.001-1.035); Urobilinogen,Urine <2.0 mg/dL (<2.0)
[2021-06-16] MEDS ORDERED: SODIUM CHLORIDE 0.9% 50 ML MINI-BAG IV ONE ×2 (16:43→17:54)
[2021-06-16] MEDS ORDERED: GABAPENTIN 400 MG CAP PO STA (17:34)
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
[2021-06-16] MEDS: SODIUM CHLORIDE 0.9% 1,000 ML IV SCH (17:56)
--- NOTE | 2021-06-16 18:23 | XR ---
EXAMINATION TYPE: XR chest 1V portable DATE OF EXAM: 06/16/2021 COMPARISON: 03/17/2021 HISTORY: Chest pain short of breath TECHNIQUE: FINDINGS: There is some coarsening of interstitial markings. There is no heart failure. Thoracic aort a is atheromatous. There are sternal wires. There is no evidence of pleural effusion. IMPRESSION: There is some pulmonary interstitial fibrosis. No acute lung disease. No change compared to old exam.
[2021-06-16 19:25] LABS: T4, Free (Free Thyroxine) 1.59 ng/dL (0.78-2.19)
[2021-06-17 03:39] LABS: Hemoglobin A1C 6.5 % (4.0-6.0)
[2021-06-17] MEDS ORDERED: HYDROcodone/APAP 7.5-325MG 1 EACH TAB PO ONE (03:53)
[2021-06-17] MEDS: GABAPENTIN 400 MG CAP PO SCH ×4 (04:03→22:10)
[2021-06-17] MEDS: ATORVASTATIN 80 MG TAB PO SCH ×2 (04:03→20:10)
[2021-06-17] MEDS: FINASTERIDE 5 MG TAB PO SCH ×2 (04:05→20:10)
[2021-06-17] MEDS: metFORMIN 500 MG TAB PO SCH ×3 (04:05→19:57)
[2021-06-17 04:09] LABS: Glucose,Whole Blood 234 mg/dL (75-99)
[2021-06-17] MEDS: SODIUM CHLORIDE 0.9% 1,000 ML IV SCH ×2 (04:09→14:25)
[2021-06-17] MEDS ORDERED: LEVOTHYROXINE 112 MCG TAB PO SCH (06:30)
[2021-06-17] MEDS: SYMBICORT 80-4.5 MCG INHALER INHALATION SCH ×2 (08:03→18:49)
[2021-06-17] MEDS: carvediloL 6.25 MG TAB PO SCH ×2 (08:55→21:10)
[2021-06-17] MEDS: PANTOPRAZOLE 40 MG TABLET PO SCH (08:55)
--- NOTE | 2021-06-17 10:16 | P.CNPUL ---
History of Present Illness Consult date: 06/17/21 Chief complaint: Acute CVA History of present illness: -year-old male patient presented to the emergency department yesterday because of slurred speech and some left-sided weakness. He presented to us at 1459. His last normal state was at 2:40 PM on the same day. He has history of atrial fibrillation, coronary artery disease, multiple coronary stents, diabetes mellitus and hypertension. The patient was taken off his anticoagulation and t he patient was receiving a nerve block at the neurologist office computed tomography scan of the head was negative. CT angiogram showed no significant cardiac artery stenosis. The patient had moderate to severe focal atherosclerotic stenosis in the proximal V4 segment of the right vertebral artery. There was also moderate atherosclerotic narrowing of the V4 segment of the left vertebral artery. Moderate stenosis of the supraclinoid left ICA. Mild diffuse dilatation of the right carotid terminus up to 5 mm compared to 3.5 mm on the contralateral side. The patient had a NIH score of 3. He had dysarthria and focal weakness and he was given thrombolytics and the patient received loading dose of 9 mg at 1550 and the remaining those at 1551 for a total of 1 hour. This morning, the patient is doing well. His speech is normalized. He was supposed to get moved to the intensive care unit. This did not happen as the patient did not have a room available and he stayed in the emergency as a ICU overflow. He is currently hemodynamically stable. Speech is normalized. Motor weakness has recovered. He is NIH score is 0. He is hemodynamically stable. Cardiac rhythm as normal sinus rhythm. Noted the patient was taken Eliquis on outpatient basis. He has not received any anticoagulation for now. He was taken Eliquis 5 mg by mouth twice a day for paroxysmal atrial fibrillation. Review of Systems Constitutional: Reports as per HPI Eyes: denies as per HPI, denies blurred vision, denies bulging eye, denies decreased vision, denies diplopia, denies discharge, denies dry eye, denies irritation, denies itching, denies pain, denies photophobia, denies loss of peripheral vision, denies loss of vision, denies tunnel vision/blind spots Ears: deny: decreased hearing, ear discharge, earache, tinnitus Ears, nose, mouth and throat: Reports as per HPI Breasts: absent: as per HPI, gynecomastia Cardiovascular: Reports as per HPI Respiratory: Reports as per HPI Gastrointestinal: Reports as per HPI Musculoskeletal: Reports as per HPI Musculoskeletal: absent: ankle pain, ankle stiffness, ankle swelling, as per HPI, elbow pain, elbow stiffness, elbow swelling, foot pain, foot stiffness, foot swelling, hand pain, hand stiffness, hand swelling, hip pain, hip stiffness, hip swelling, knee pain, knee stiffness, knee swelling, shoulder pain, shoulder stiffness, shoulder swelling, wrist pain, wrist stiffness, wrist swelling Integumentary: Reports as per HPI Neurological: Reports aphasia, Reports weakness Psychiatric: Reports as per HPI Endocrine: Reports as per HPI Hematologic/Lymphatic: Reports as per HPI Allergic/Immunologic: Reports as per HPI Past Medical History Past Medical History: Atrial Fibrillation, Asthma, Coronary Artery Disease (CAD), COPD, Diabetes Mellitus, Hypertension, Myocardial Infarction ([place]), Pneumonia Additional Past Medical History / Comment(s): left knee cap broken, pancre atitis, /gallstones Last Myocardial Infarction Date:: 2017 History of Any Multi-Drug Resistant Organisms: None Reported Past Surgical History: Cholecystectomy, Coronary Bypass/CABG, Heart Catheterization With Stent, Hernia Repair, Orthopedic Surgery Additional Past Surgical History / Comment(s): lt knee replacement(total of 3 sx), colonoscopy, Past Anesthesia/Blood Transfusion Reactions: No Reported Reaction Date of Last Stent Placement:: 10/2015 Past Psychological History: No Psychological Hx Reported Smoking Status: Former smoker Past Alcohol Use History: Occasional Past Drug Use History: None Reported - Past Family History Father Family Medical History: Diabetes Mellitus Mother Family Medical History: CVA/TIA, Hypertension Medications and Allergies Home Medications Medication Instructions Recorded Confirmed Type Allopurinol [Zyloprim] 300 mg PO DAILY 08/07/17 06/16/21 History Albuterol Sulfate [Proventil Hfa] 1 puff INHALATION RT-Q4H PRN 10/15/17 06/16/21 History Gabapentin 1,200 mg PO TID 10/02/18 06/16/21 History Levothyroxine Sodium [Synthroid] 112 mcg PO DAILY 10/02/18 06/16/21 History Levothyroxine Sodium [Synthroid] 125 mcg PO DAILY 10/02/18 06/16/21 History Nitroglycerin Sl Tabs [Nitrostat] 0.4 mg SL Q5M PRN 10/02/18 06/16/21 History diazePAM [Valium] 5 mg PO HS PRN 10/02/18 06/16/21 History Apixaban [Eliquis] 5 mg PO BID 11/07/19 06/16/21 History Budesonide/Formoterol Fumarate 2 puff INHALATION RT-BID 11/07/19 06/16/21 History [Symbicort 80-4.5 Mcg Inhaler] Hydrocodone/Acetaminophen [[place] 1 tab PO BID PRN 11/07/19 06/16/21 History 7.5-325] Atorvastatin [Lipitor] 40 mg PO HS 03/17/21 06/16/21 History Finasteride [Proscar] 5 mg PO HS 03/17/21 06/16/21 History Magnesium Oxide [Mag-Ox] 500 mg PO HS 03/17/21 06/16/21 History Meclizine [Antivert] 25 mg PO BID PRN 03/17/21 06/16/21 History Omeprazole 20 mg PO DAILY 03/17/21 06/16/21 History carvediloL [Coreg] 6.25 mg PO BID 03/17/21 06/16/21 History metFORMIN HCL [Glucophage] 1,000 mg PO BID 03/17/21 06/16/21 History Allergies Allergy/AdvReac Type Severity Reaction Status Date / Time cephalexin [From Keflex] Allergy Unknown Verified 06/16/21 17:03 clopidogrel [From Plavix] Allergy Rash/Hives Verified 06/16/21 17:03 codeine Allergy Rash/Nausea Verified 06/16/21 17:03 & Vomiting Iodine and Iodide Containing Allergy Rash/Hives Verified 06/16/21 17:03 Produc levofloxacin [From Levaquin] Allergy urticaria/r Verified 06/16/21 17:03 belle shellfish derived [Shellfish] Allergy urticaria/r Verified 06/16/21 17:03 belle lisinopril AdvReac Angiodema Verified 06/16/21 17:03 of tongue oxycodone AdvReac Hallucinati Verified 06/16/21 17:03 ons solifenacin AdvReac Nausea & Verified 06/16/21 17:03 Vomiting Physical Exam Vitals: Vital Signs Temp Pulse Resp BP Pulse Ox 06/17/21 08:00 64 18 139/65 97 06/17/21 05:39 89 18 122/77 96 06/17/21 04:39 64 18 128/73 96 06/17/21 03:39 98.4 F 59 L 18 130/79 96 06/17/21 02:39 60 18 101/68 96 06/17/21 01:39 74 18 126/70 97 06/17/21 00:39 99.0 F 74 18 116/60 97 06/17/21 00:09 98.5 F 68 18 106/51 96 06/16/21 23:39 74 18 115/59 96 06/16/21 23:09 67 18 109/53 97 06/16/21 22:39 98.4 F 71 18 113/61 97 06/16/21 22:09 64 18 113/60 96 06/16/21 21:39 70 18 129/74 97 06/16/21 21:09 71 18 130/86 97 06/16/21 20:39 70 18 129/74 98 06/16/21 20:09 98.4 F 71 18 115/82 97 06/16/21 19:39 98.0 F 70 18 119/107 96 06/16/21 19:09 98.2 F 75 18 125/69 97 06/16/21 18:45 98 F 75 18 114/71 98 06/16/21 18:15 97.9 F 73 18 93/60 95 06/16/21 18:00 98 F 80 18 104/59 06/16/21 17:45 98 F 80 18 98/61 95 06/16/21 17:30 98 F 80 18 107/56 95 06/16/21 17:15 98 F 77 18 95/61 95 06/16/21 17:00 98 F 78 18 119/73 95 06/16/21 16:16 98.1 F 71 18 110/63 96 06/16/21 15:45 98 F 71 18 110/66 95 06/16/21 15:30 98 F 93 16 93/56 95 06/16/21 15:15 98.1 F 72 18 127/70 96 06/16/21 15:11 98 F 84 18 133/73 98 Intake and Output 06/16/21 06/17/21 06/17/21 22:59 06:59 14:59 Other: Weight 104.326 kg The patient appeared well nourished and normally developed. Vital signs as documented. Head exam is unremarkable. No scleral icterus or corneal arcus n oted. Neck is without jugular venous distension, thyromegaly, or carotid bruits. Carotid upstrokes are brisk bilaterally. Lungs are clear to auscultation and percussion. Cardiac exam reveals the PMI to be normally sized and situated. Rhythm is regular. First and second heart sounds normal. No murmurs, rubs or gallops. Thoracotomy scar over the anterior chest area Abdominal exam reveals normal bowel sounds, no masses, no organomegaly and no aortic enlargement. Extremities are nonedematous and both femoral and pedal pulses are normal.Examination of the skin revealed no evidence of significant rashes, suspicious appearing nevi or other concerning lesions.Neurologically, the patient is awake and alert and the patient does not have any focal neurological deficit. Cranial nerves are essentially intact. Results - Laboratory Findings CBC and BMP: 06/16/21 15:34 06/16/21 15:34 PT/INR, D-dimer PT 10.8 sec (9.0-12.0) 06/16/21 15:34 INR 1.0 (<1.2) 06/16/21 15:34 Abnormal lab findings: Abnormal Labs 06/16/21 06/16/21 06/16/21 15:34 15:34 15:34 Neutrophils # 7.8 H Lymphocytes # 0.9 L Sodium 136 L Glucose 248 H POC Glucose (mg/dL) Hemoglobin A1c 6.5 H TSH Urine Protein 06/16/21 06/16/21 06/16/21 15:34 15:48 16:12 Neutrophils # Lymphocytes # Sodium Glucose POC Glucose (mg/dL) 180 H Hemoglobin A1c TSH 5.080 H Urine Protein Trace H 06/17/21 04:08 Neutrophils # Lymphocytes # Sodium Glucose POC Glucose (mg/dL) 234 H Hemoglobin A1c TSH Urine Protein - Diagnostic Findings Chest x-ray: image reviewed Assessment and Plan Plan: 1 acute left facial droop, left-sided weakness, along with dysarthria, and NIH score of 3 at a time of admission, treated with thrombolytics with full recovery. 2 paroxysmal atrial fibrillation maintained on Eliquis on outpatient basis. Current rhythm is sinus 3 coronary artery disease with previous coronary stenting 4 hypertension 5 diabetes mellitus Plan Follow-up CAT scan of the brain May resume anticoagulation with Eliquis after completing 24 hours post thrombolytics Hemodynamically stable Neurologically stable Follow-up with neurology Follow-up with cardiology We'll downgrade this patient and we'll transfer him to [facility].
[2021-06-17 11:07] LABS: Chol/HDL Ratio 2.26; LDL Cholesterol,Calculated 28.6 mg/dL (0.0-131.0); VLDL Calculation 15.4 mg/dL (5.00-40.00)
[2021-06-17 11:56] LABS: Glucose,Whole Blood 171 mg/dL (75-99)
--- NOTE | 2021-06-17 15:44 | ECHOF ---
Referral Reason:stroke MEASUREMENTS -------- HEIGHT: 180.3 cm WEIGHT: 104.3 kg BP: 122/77 IVSd: 1.0 cm (0.6 - 1.1) LVIDd: 4.7 cm (3.9 - 5.3) LVPWd: 1.3 cm (0.6 - 1.1) EDV(Teich): 104 ml IVSs: 1.6 cm LVIDs: 3.6 cm LVPWs: 1.9 cm %IVS Thck: 60 % ESV(Teich): 56 ml EF(Teich): 46 % %FS: 23 % SV(Teich): 48 ml RVIDd: 3.7 cm (< 3.3) Ao Diam: 3.1 cm (2.0 - 3.7) LA Diam: 3.7 cm (2.7 - 3.8) AV Cusp: 1.2 cm (1.5 - 2.6) LVOT Vmax: 0.56 m/s LVOT maxP.24 mmHg AV Vmax: 2.06 m/s AV maxP.94 mmHg AV Vmax: 2.25 m/s AV Vmean: 1.63 m/s AV maxP.25 mmHg AV meanP.34 mmHg AV Env.Ti: 300 ms AV VTI: 49.0 cm TR Vmax: 2.02 m/s TR maxP.34 mmHg RAP: 5.00 mmHg RVSP: 21.34 mmHg FINDINGS -------- Limited Study The left ventricular size is normal. There is mild concentric left ventricular hypertrophy. Overa ll left ventricular systolic function is mild-moderately impaired with, an EF between 40 - 45 %. Lumason used Aortic valve is trileaflet and is moderately thickened. There is mild aortic stenosis present. Pe ak/mean gradient across the Aortic Valve is 20.25mmHg / 12.34mmHg. There is no pericardial effusion. CONCLUSIONS -------- 1. The left ventricular size is normal. 2. There is mild concentric left ventricular hypertrophy. 3. Overall left ventricular systolic function is mild-moderately impaired with, an EF between 40 - 45 %. 4. Aortic valve is trileaflet and is moderately thickened. 5. There is mild aortic stenosis present. 6. Peak/mean gradient across the Aortic Valve is 20.25mmHg / 12.34mmHg. 7. There is no pericardial effusion. APPLICATION COORDINATOR: Radha Cool RDCS
--- NOTE | 2021-06-17 15:56 | P.PN ---
Subjective Progress Note Date: 06/16/21 The patient is seen at bedside and he feels his symptoms are improving compared to initial presentation. He denies of any further neurological deficits. He feels he no longer is slurring of his speech. Objective - Vital Signs Vital signs: Vital Signs Temp 98.4 F 06/17/21 03:39 Pulse 69 06/17/21 11:00 Resp 18 06/17/21 11:00 BP 119/76 06/17/21 10:00 Pulse Ox 96 06/17/21 11:00 Intake & Output 06/16/21 06/17/21 06/17/21 18:59 06:59 18:59 Weight 104.326 kg - Exam GENERAL: The patient is lying in bed and is not in moderate acute distress (left knee pain). NEUROLOGICAL: Higher mental function: The patient is awake, alert, oriented to self, place and time. Patient is following commands. No aphasia and no neglect. Cranial nerves: The pupils are round, equal and reactive to light and accommodation. Visual fuentes are full to confrontation throughout. Extraocular movement is intact no nystagmus is noted. Facial sensation is normal to touch t hroughout. The facial strength is normal throughout. Hearing is normal bilaterally to hand rub. Tongue is midline and moved [id number] without any difficulty. No dysarthria is noted. Shoulder shrug is normal bilaterally. Motor: Gait is deferred because of his left knee pain. Left lower extremity could not assess because of his pain and he asked me to avoid touching it (he said chronic left lefg/knee pain since february 2021). He was able to bend knee and move left ankle antigravity. Otherwise. rest are 5 over 5 throughout. Normal tone and bulk. Cerebellum: Normal finger to nose bilaterally Sensation: Sensation is normal to touch throughout. Reflexes (right/left): 1+ throughout (did not assess left lower extremity per patient wishes). Plantars are mute bilaterally. WORK-UP: Coagulation study: PT 10.8, INR 1.0 and PTT 27.0 TSH is 5.08 which is considered high but the free T4 is 1.59 which is within normal limits Lipid panel is triglycerides 77, cholesterol 79, LDL of 28 and HDL of 35. Hemoglobin A1c is 6.5 CT of the head is reported as no acute intracranial hemorrhage or midline shift. No significant change from prior. CT angiography of the neck is reported as no significant ICA stenosis on either side. Advair and direct takeoff of the left vertebral artery directly from the aortic arch. CT angiography of the head is reported as moderate to severe focal atherosclerotic stenosis proximal V4 segment right vertebral artery. Moderate atherosclerotic narrowing mild V4 segment left vertebral artery. Moderate stenosis supraclinoid left ICA. Mild fusiform dilation of the right carotid terminus up to 5 mm in comparison to a 3.5 mm on the contralateral side. This may represent a mild fusiform aneurysm. No large vessel intracranial arterial occlusion or otherwise any other significant stenosis. As a result of all this stroke would was activated and the patient NIH per the ED attending was 3-4; 1 for dysarthria, 1 for facial weakness, 1 for left upper extremity at addressed as well as wand for left lower extremity and that was questionable. Ordered 2-D echo: Limited study. Mild concentric left ventricular hypertrophy. Overall left ventricle systolic functional is mild to moderate impaired with ejection fraction of 40-5%. - Labs CBC & Chem 7: 06/16/21 15:34 06/16/21 15:34 Labs: Abnormal Lab Results - Last 24 Hours (Table) 06/16/21 06/16/21 06/16/21 Range/Units 15:34 15:34 15:34 Neutrophils # 7.8 H (1.3-7.7) k/uL Lymphocytes # 0.9 L (1.0-4.8) k/uL Sodium 136 L (137-145) mmol/L Glucose 248 H (74-99) mg/dL POC Glucose (mg/dL) (75-99) mg/dL Hemoglobin A1c 6.5 H (4.0-6.0) % HDL Cholesterol (40.0-60.0) mg/dL TSH (0.465-4.680) mIU/L Urine Protein (Negative) 06/16/21 06/16/21 06/16/21 Range/Units 15:34 15:48 16:12 Neutrophils # (1.3-7.7) k/uL Lymphocytes # (1.0-4.8) k/uL Sodium (137-145) mmol/L Glucose (74-99) mg/dL POC Glucose (mg/dL) 180 H (75-99) mg/dL Hemoglobin A1c (4.0-6.0) % HDL Cholesterol (40.0-60.0) mg/dL TSH 5.080 H (0.465-4.680) mIU/L Urine Protein Trace H (Negative) 06/17/21 06/17/21 06/17/21 Range/Units 04:08 05:04 11:54 Neutrophils # (1.3-7.7) k/uL Lymphocytes # (1.0-4.8) k/uL Sodium (137-145) mmol/L Glucose (74-99) mg/dL POC Glucose (mg/dL) 234 H 171 H (75-99) mg/dL Hemoglobin A1c (4.0-6.0) % HDL Cholesterol 35.0 L (40.0-60.0) mg/dL TSH (0.465-4.680) mIU/L Urine Protein (Negative) Assessment and Plan Assessment: Acute CVA status post TPA (NIH 3-4 per ED team for left facial droop, left sided weakness and 1 dysarthria). Seems embolic since has hx of atrial fibrillation and on Eliquis and stopped since Saturday for procedure (nerve block) History of Atrial fibrillation on Eliquis Chronic left knee and leg pain (received nerve block today) Diabetes mellitus that presented with a sugar in the 200s (with recent HbA1c: 6.5) History of coronary artery disease status post multiple cardiac stent History of hypertension Plan: Continue Lipitor 80 mg daily at bedtime for secondary stroke prophylaxis. Patient is to get repeat CT head today for 24 hours post-tpa today. After CT head I will decide on the use of antiplatelet or anticoagulation. PT, OT and OUTSOLE TACKER are consulted Goal of the systolic blood pressure is less than 185 and diastolic is less than 110 per IV TPA protocol Neuro checks per IV TPA protocol On cardiac monitoring We'll defer the rest of the medical management to primary team. For DVT prophylaxis use SCD (for now). Condition is very guarded. The plan is discussed with the ED nurse. UPDATE: * Patient was notified of the CT of the head is negative for stroke we will resume his Eliquis 5mg 1 tab bid (he was notified there is possibly risk of bleed with acute stroke but the benefit would outweigh the risk since he was off medication for two days and developed stroke-like symptoms) and he is in agreement of starting anticoagulation if negative for bleed. * CT head is reported as no acute intracranial abnormality. I personally reviewed the CT of the head and was negative for any acute ischemia or any bleed. I didn't see any significant hypodensity suggestive of acute or subacute ischemia. * Therefore I will presume his Eliquis 5mg 1 tab bid. * DVT prophylaxis: Eliquis is sufficient enough from neurological stand point. Vance Arvizu MD Neuro-Hospitalist Time with Patient: Less than 30
--- NOTE | 2021-06-17 16:44 | CT ---
EXAM: CT brain wo con CLINICAL HISTORY: Post TPA. COMPARISON: Same day. TECHNIQUE: Contiguous axial noncontrast images of the brain were obtained. Coronal and sagittal refor mats were generated and reviewed. Automated dose control was used for this exam. FINDINGS: There is no evidence for intracranial hemorrhage, mass effect or midline shift. There is mild parench ymal volume loss. Otherwise the white matter is grossly preserved. Ventricular size and configuration is within normal limits for degree of parenchymal volume. The paranasal sinuses are clear. There is mild opacification of the left mastoid air cells. No evidence for calvarial fracture. IMPRESSION: No acute intracranial abnormality.
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
[2021-06-17 17:52] LABS: Glucose,Whole Blood 185 mg/dL (75-99)
[2021-06-17] MEDS: APIXABAN 5 MG TAB PO SCH (20:10)
[2021-06-17 20:31] LABS: Glucose,Whole Blood 212 mg/dL (75-99)
[2021-06-17] MEDS: HYDROcodone/APAP 7.5-325MG 1 EACH TAB PO PRN (22:10)
[2021-06-18 06:15] LABS: Glucose,Whole Blood 155 mg/dL (75-99)
[2021-06-18] MEDS: LEVOTHYROXINE 125 MCG TAB PO SCH (06:39)
[2021-06-18] MEDS: carvediloL 6.25 MG TAB PO SCH ×2 (06:39→16:13)
[2021-06-18] MEDS: SODIUM CHLORIDE 0.9% 1,000 ML IV SCH ×2 (06:50→15:22)
[2021-06-18] MEDS: metFORMIN 500 MG TAB PO SCH ×3 (07:44→20:37)
[2021-06-18] MEDS: SYMBICORT 80-4.5 MCG INHALER INHALATION SCH ×2 (08:51→19:31)
[2021-06-18] MEDS: ALBUTEROL NEBULIZED 2.5 MG/3 ML INHALATION PRN (08:51)
[2021-06-18] MEDS ORDERED: LEVOTHYROXINE 125 MCG TAB PO SCH (09:00)
[2021-06-18] MEDS: LEVOTHYROXINE 112 MCG TAB PO SCH (09:19)
[2021-06-18] MEDS: GABAPENTIN 400 MG CAP PO SCH ×3 (09:19→20:37)
[2021-06-18] MEDS: PANTOPRAZOLE 40 MG TABLET PO SCH (09:20)
[2021-06-18] MEDS: allopurinoL 300 MG TAB PO SCH (09:20)
[2021-06-18] MEDS: APIXABAN 5 MG TAB PO SCH ×2 (09:20→20:37)
[2021-06-18] MEDS: HYDROcodone/APAP 7.5-325MG 1 EACH TAB PO PRN ×2 (09:24→20:38)
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
--- NOTE | 2021-06-18 10:32 | P.PN ---
Subjective Progress Note Date: 06/18/21 -year-old male patient presented to the emergency department yesterday because of slurred speech and some left-sided weakness. He presented to us at 1459. His last normal state was at 2:40 PM on the same day. He has history of atrial fibrillation, coronary artery disease, multiple coronary stents, diabetes mellitus and hypertension. The patient was taken off his anticoagulation and the patient was receiving a nerve block at the neurologist office computed tomography scan of the head was negative. CT angiogram showed no significant cardiac artery stenosis. The patient had moderate to severe focal atherosclerotic stenosis in the proximal V4 segment of the right vertebral artery. There was also moderate atherosclerotic narrowing of the V4 segment of the left vertebral artery. Moderate stenosis of the supraclinoid left ICA. Mild diffuse dilatation of the right carotid terminus up to 5 mm compared to 3.5 mm on the contralateral side. The patient had a NIH score of 3. He had dysarthria and focal weakness and he was given thrombolytics and the patient received loading dose of 9 mg at 1550 and the remaining those at 1551 for a total of 1 hour. This morning, the patient is doing well. His speech is normalized. He was supposed to get moved to the intensive care unit. This did not happen as the patient did not have a room available and he stayed in the emergency as a ICU overflow. He is currently hemodynamically stable. Speech is normalized. Motor weakness has recovered. He is NIH score is 0. He is hemodynamically stable. Cardiac rhythm as normal sinus rhythm. Noted the patient was taken Eliquis on outpatient basis. He has not received any anticoagulation for now. He was taken Eliquis 5 mg by mouth twice a day for paroxysmal atrial fibrillation. 06/18/2021, the patient is back to normal. No complaints. Anticoagulation has been resumed. No signs of any bleed. Patient is being followed up by neurology. He is out of the intensive care unit. Hemodynamically stable. Objective - Vital Signs Vital signs: Vital Signs Temp 98.1 F 06/18/21 04:00 Pulse 60 06/18/21 09:04 Resp 16 06/18/21 04:00 BP 115/61 06/18/21 04:00 Pulse Ox 94 L 06/18/21 08:52 Intake & Output 06/17/21 06/18/21 06/18/21 18:59 06:59 18:59 Intake Total 240 Output Total 100 Balance -100 240 Weight 104 kg Intake: Oral 240 Output: Urine 100 Other: # Voids 1 - Exam The patient appeared well nourished and normally developed. Vital signs as documented. Head exam is unremarkable. No scleral icterus or corneal arcus noted. Neck is without jugular venous distension, thyromegaly, or carotid bruits. Carotid upstrokes are brisk bilaterally. Lungs are clear to auscultation and percussion. Cardiac exam reveals the PMI to be normally sized and situated. Rhythm is regular. First and second heart sounds normal. No murmurs, rubs or gallops. Thoracotomy scar over the anterior chest area Abdominal exam reveals normal bowel sounds, no masses, no organomegaly and no aortic enlargement. Extremities are nonedematous and both femoral and pedal pulses are normal.Examination of the skin revealed no evidence of significant rashes, suspicious appearing nevi or other concerning lesions.Neurologically, the patient is awake and alert and the patient does not have any focal neurological deficit. Cranial nerves are essentially intact. - Labs CBC & Chem 7: 06/16/21 15:34 06/16/21 15:34 Labs: Abnormal Lab Results - Last 24 Hours (Table) 06/17/21 06/17/21 06/17/21 Range/Units 05:04 11:54 17:50 POC Glucose (mg/dL) 171 H 185 H (75-99) mg/dL HDL Cholesterol 35.0 L (40.0-60.0) mg/dL 06/17/21 06/18/21 Range/Units 20:30 06:13 POC Glucose (mg/dL) 212 H 155 H (75-99) mg/dL HDL Cholesterol (40.0-60.0) mg/dL Assessment and Plan Plan: 1 acute left facial droop, left-sided weakness, along with dysarthria, and NIH score of 3 at a time of admission, treated with thrombolytics with full recovery. 2 paroxysmal atrial fibrillation maintained on Eliquis on outpatient basis. Current rhythm is sinus 3 coronary artery disease with previous coronary stenting 4 hypertension 5 diabetes mellitus Plan Follow-up CAT scan of the brain was done and there is no evidence of any acute abnormalities Anticoagulation with Eliquis has been resumed Hemodynamically stable Neurologically stable Follow-up with neurology Follow-up with cardiology Pulmonary and critical care services will sign off.
--- NOTE | 2021-06-18 11:57 | P.PN ---
Subjective Progress Note Date: 06/18/21 The patient is seen at bedside and he states he is doing drastically better. He feels he is back to baseline. Objective - Vital Signs Vital signs: Vital Signs Temp 98.1 F 06/18/21 04:00 Pulse 60 06/18/21 09:04 Resp 16 06/18/21 04:00 BP 115/61 06/18/21 04:00 Pulse Ox 94 L 06/18/21 08:52 Intake & Output 06/17/21 06/18/21 06/18/21 18:59 06:59 18:59 Intake Total 240 Output Total 100 Balance -100 240 Weight 104 kg Intake: Oral 240 Output: Urine 100 Other: # Voids 1 - Exam GENERAL: The patient is lying in bed and is not in moderate acute distress (left knee pain). NEUROLOGICAL: Higher mental function: The patient is awake, alert, oriented to self, place and time. Patient is following commands. No aphasia and no neglect. Cranial nerves: The pupils are round, equal and reactive to light and accommodat ion. Visual fuentes are full to confrontation throughout. Extraocular movement is intact no nystagmus is noted. Facial sensation is normal to touch throughout. The facial strength is normal throughout. Hearing is normal bilaterally to hand rub. Tongue is midline and moved [id number] without any difficulty. No dysarthria is noted. Shoulder shrug is normal bilaterally. Motor: Gait is deferred because of his left knee pain. Left lower extremity could not assess because of his pain and he asked me to avoid touching it (he said chronic left lefg/knee pain since february 2021). He was able to bend knee and move left ankle antigravity. Otherwise. rest are 5 over 5 throughout. Normal tone and bulk. Cerebellum: Normal finger to nose bilaterally Sensation: Sensation is normal to touch throughout. Reflexes (right/left): 1+ throughout (did not assess left lower extremity per patient wishes). Plantars are mute bilaterally. WORK-UP: Coagulation study: PT 10.8, INR 1.0 and PTT 27.0 TSH is 5.08 which is considered high but the free T4 is 1.59 which is within normal limits Lipid panel is triglycerides 77, cholesterol 79, LDL of 28 and HDL of 35. Hemoglobin A1c is 6.5 CT of the head is reported as no acute intracranial hemorrhage or midline shift. No significant change from prior. Repeat CT head (24 hours post-tpa) is reported as no acute intracranial abnormality. I personally reviewed the CT of the head and was negative for any acute ischemia or any bleed. I didn't see any significant hypodensity suggestive of acute or subacute ischemia. CT angiography of the neck is reported as no significant ICA stenosis on either side. Advair and direct takeoff of the left vertebral artery directly from the aortic arch. CT angiography of the head is reported as moderate to severe focal atherosclerotic stenosis proximal V4 segment right vertebral artery. Moderate atherosclerotic narrowing mild V4 segment left vertebral artery. Moderate stenosis supraclinoid left ICA. Mild fusiform dilation of the right carotid terminus up to 5 mm in comparison to a 3.5 mm on the contralateral side. This may represent a mild fusiform aneurysm. No large vessel intracranial arterial occlusion or otherwise any other significant stenosis. As a result of all this stroke would was activated and the patient NIH per the ED attending was 3-4; 1 for dysarthria, 1 for facial weakness, 1 for left upper extremity at addressed as well as wand for left lower extremity and that was q uestionable. Ordered 2-D echo: Limited study. Mild concentric left ventricular hypertrophy. Overall left ventricle systolic functional is mild to moderate impaired with ejection fraction of 40-5%. - Labs CBC & Chem 7: 06/16/21 15:34 06/16/21 15:34 Labs: Abnormal Lab Results - Last 24 Hours (Table) 06/17/21 06/17/21 06/17/21 Range/Units 11:54 17:50 20:30 POC Glucose (mg/dL) 171 H 185 H 212 H (75-99) mg/dL 06/18/21 Range/Units 06:13 POC Glucose (mg/dL) 155 H (75-99) mg/dL Assessment and Plan Assessment: Acute CVA status post TPA (NIH 3-4 per ED team for left facial droop, left sided weakness and 1 dysarthria). Seems embolic since has hx of atrial fibrillation and on and stopped since Saturday for procedure (nerve block)--resolved History of Atrial fibrillation on Eliquis Chronic left knee and leg pain with leg weakness (received nerve block on 06/16/2021 over left knee ) Diabetes mellitus that presented with a sugar in the 200s (with recent HbA1c: 6.5) History of coronary artery disease status post multiple cardiac stent History of hypertension Plan: Continue Eliquis 5mg bid. Continue Lipitor 80 mg daily at bedtime for secondary stroke prophylaxis. PT, OT and [facility] are consulted Continue neuro-checks. On cardiac monitoring We'll defer the rest of the medical management to primary team. Upon discharge the patient needs to follow-up with his neurologist as outpatient within 1-2 weeks. For DVT prophylaxis: Eliquis is sufficient enough from neurological stand point. The plan is discussed with the nurse. He is clear from neurological perspective. Vance Arvizu MD Neuro-Hospitalist Time with Patient: Less than 30
[2021-06-18 12:23] LABS: Glucose,Whole Blood 127 mg/dL (75-99)
[2021-06-18 16:26] LABS: Glucose,Whole Blood 184 mg/dL (75-99)
[2021-06-18 20:37] LABS: Glucose,Whole Blood 161 mg/dL (75-99)
[2021-06-18] MEDS: ATORVASTATIN 80 MG TAB PO SCH (20:37)
[2021-06-18] MEDS: FINASTERIDE 5 MG TAB PO SCH (20:37)
[2021-06-19] MEDS: SODIUM CHLORIDE 0.9% 1,000 ML IV SCH (06:20)
[2021-06-19] MEDS: LEVOTHYROXINE 112 MCG TAB PO SCH (06:20)
[2021-06-19] MEDS: LEVOTHYROXINE 125 MCG TAB PO SCH (06:20)
[2021-06-19] MEDS: carvediloL 6.25 MG TAB PO SCH ×2 (06:20→17:12)
[2021-06-19 06:49] LABS: Glucose,Whole Blood 128 mg/dL (75-99)
[2021-06-19 07:15] LABS: Basophils # (A) 0.1 k/uL (0-0.2); Basophils % (A) 1 %; Eosinophils # (A) 0.2 k/uL (0-0.7); Eosinophils % (A) 2 %; HGB 13.5 gm/dL (13.0-17.5); Hypochromasia Slight; Lymphocytes # (A) 1.9 k/uL (1.0-4.8); Lymphocytes % (A) 20 %; MCH 29.5 pg (25.0-35.0); MCHC 31.4 g/dL (31.0-37.0); Mean Platelet Volume 7.3; Monocytes # (A) 0.7 k/uL (0-1.0); Monocytes % (A) 8 %; Neutrophils # (A) 6.4 k/uL (1.3-7.7); Neutrophils % (A) 67 %; Platelet Count 262 k/uL (150-450); Poikilocytosis Slight; RBC 4.58 m/uL (4.30-5.90); RDW 14.3 % (11.5-15.5); WBC 9.5 k/uL (3.8-10.6)
[2021-06-19 07:32] LABS: ALT 9 U/L (4-49); AST 18 U/L (17-59); African American GFR (CKD) >90 (>60 ml/min/1.73 sqM); Albumin 3.6 g/dL (3.5-5.0); Alkaline Phosphatase 69 U/L (38-126); Anion Gap 10 mmol/L; Blood Urea Nitrogen 19 mg/dL (9-20); Carbon Dioxide 24 mmol/L (22-30); Chloride 106 mmol/L (98-107); Glucose 124 mg/dL (74-99); Non-African American GFR(CKD) 78 (>60 ml/min/1.73 sqM); Potassium 4.1 mmol/L (3.5-5.1); Sodium 140 mmol/L (137-145); Total Bilirubin 0.3 mg/dL (0.2-1.3); Total Protein 6.9 g/dL (6.3-8.2)
[2021-06-19] MEDS: SYMBICORT 80-4.5 MCG INHALER INHALATION SCH (07:54)
[2021-06-19] MEDS: ALBUTEROL NEBULIZED 2.5 MG/3 ML INHALATION PRN (07:54)
[2021-06-19 08:23] VITALS: TEMP 97.8
[2021-06-19] MEDS: GABAPENTIN 400 MG CAP PO SCH ×2 (08:25→17:12)
[2021-06-19] MEDS: metFORMIN 500 MG TAB PO SCH (08:25)
[2021-06-19] MEDS: PANTOPRAZOLE 40 MG TABLET PO SCH (08:25)
[2021-06-19] MEDS: allopurinoL 300 MG TAB PO SCH (08:25)
[2021-06-19] MEDS: APIXABAN 5 MG TAB PO SCH (08:25)
[2021-06-19] MEDS: HYDROcodone/APAP 7.5-325MG 1 EACH TAB PO PRN (08:27)
[2021-06-19 11:24] LABS: Glucose,Whole Blood 129 mg/dL (75-99)
--- NOTE | 2021-06-19 12:59 | P.PN ---
Subjective Progress Note Date: 06/19/21 Principal diagnosis: Acute ischemic CVA, status TPA, recovered 75-year-old male patient presented to the emergency department yesterday because of slurred speech and some left-sided weakness. He presented to us at 1459. His last normal state was at 2:40 PM on the same day. He has history of atrial fibrillation, coronary artery disease, multiple coronary stents, diabetes franchesca litus and hypertension. The patient was taken off his anticoagulation and the patient was receiving a nerve block at the neurologist office computed tomography scan of the head was negative. CT angiogram showed no significant cardiac artery stenosis. The patient had moderate to severe focal ather osclerotic stenosis in the proximal V4 segment of the right vertebral artery. There was also moderate atherosclerotic narrowing of the V4 segment of the left vertebral artery. Moderate stenosis of the supraclinoid left ICA. Mild diffuse dilatation of the right carotid terminus up to 5 mm compared to 3.5 mm on the contralateral side. The patient had a NIH score of 3. He had dysarthria and focal weakness and he was given thrombolytics and the patient received loading dose of 9 mg at 1550 and the remaining those at 1551 for a total of 1 hour. This morning, the patient is doing well. His speech is normalized. He was supposed to get moved to the intensive care unit. This did not happen as the patient did not have a room available and he stayed in the emergency as a ICU overflow. He is currently hemodynamically stable. Speech is normalized. Motor weakness has recovered. He is NIH score is 0. He is hemodynamically stable. Cardiac rhythm as normal sinus rhythm. Noted the patient was taken Eliquis on outpatient basis. He has not received any anticoagulation for now. He was t aken Eliquis 5 mg by mouth twice a day for paroxysmal atrial fibrillation. 06/18/2021, the patient is back to normal. No complaints. Anticoagulation has been resumed. No signs of any bleed. Patient is being followed up by neurology. He is out of the intensive care unit. Hemodynamically stable. On 06/19/2021 patient seen in follow-up on selective care unit, he is awake and alert, oriented 3, he sitting up in the recliner, neurologically he has completely recovered, and he is back to baseline, no facial symmetry, no aphasia, motor strength is equal bilaterally. No confusion or agitation, he is oriented 3, he denies any complaints. He is breathing comfortably, his brain CT from 06/17/2021 showed no acute intracranial abnormality, he status post alteplase infusion for acute ischemic CVA on 06/16/2021 for symptoms of slurred speech and left-sided weakness, his neurological deficits have completely resolved. His vital signs have been stable, he continues on Eliquis, he is on high-dose Lipitor 80 mg once daily. Today's labs have been reviewed, CBC is within normal limits, electrolytes and renal profile are within normal limits. No complaints of shortness of breath or chest pain. LFTs were within normal limits. Patient is working with physical therapy, and is walking with a walker. He has some chronic left leg weakness. PT recommendations have been noted. Objective - Vital Signs Vital signs: Vital Signs Temp 97.8 F 06/19/21 08:22 Pulse 65 06/19/21 11:53 Resp 18 06/19/21 11:53 BP 115/66 06/19/21 11:53 Pulse Ox 96 06/19/21 11:53 Intake & Output 06/18/21 06/19/21 06/19/21 18:59 06:59 18:59 Intake Total 1020 240 Output Total 850 500 Balance 170 -500 240 Intake: Intake, IV Titration 300 Amount Sodium Chloride 0.9% 1, 300 000 ml @ 50 mls/hr IV . Q20H [facility] Rx#:[id number] Oral 720 240 Output: Urine 850 500 Other: # Voids 1 - Exam GENERAL EXAM: Alert, very pleasant, 75-year-old white male, on room air with a pulse ox of 96%, sitting up in the recliner, comfortable in no apparent distress. HEAD: Normocephalic/atraumatic. EYES: Normal reaction of pupils, equal size. Conjunctiva pink, sclera white. NOSE: Clear with pink turbinates. THROAT: No erythema or exudates. NECK: No masses, no JVD, no thyroid enlargement, no adenopathy. CHEST: No chest wall deformity. Symmetrical expansion. LUNGS: Equal air entry with no crackles, wheeze, rhonchi or dullness. CVS: Regular rate and rhythm, normal S1 and S2, no gallops, no murmurs, no rubs ABDOMEN: Soft, nontender. No hepatosplenomegaly, normal bowel sounds, no guarding or rigidity. EXTREMITIES: No clubbing, no edema, no cyanosis, 2+ pulses and upper and lower extremities. MUSCULOSKELETAL: Muscle strength and tone normal. SPINE: No scoliosis or deformity SKIN: No rashes CENTRAL NERVOUS SYSTEM: Alert and oriented -3. No focal deficits, tone is normal in all 4 extremities. PSYCHIATRIC: Alert and oriented -3. Appropriate affect. Intact judgment and insight. - Labs CBC & Chem 7: 06/19/21 06:48 06/19/21 06:48 Labs: Abnormal Lab Results - Last 24 Hours (Table) 06/18/21 06/18/21 06/19/21 Range/Units 16:25 20:17 06:21 Glucose (74-99) mg/dL POC Glucose (mg/dL) 184 H 161 H 128 H (75-99) mg/dL 06/19/21 06/19/21 Range/Units 06:48 11:22 Glucose 124 H (74-99) mg/dL POC Glucose (mg/dL) 129 H (75-99) mg/dL Assessment and Plan Plan: Assessment: #1. Acute CVA status post TPA, for NIH score of 3-4, and symptoms of left-sided weakness and dysarthria, with resolution of dysarthria and left-sided weakness #2. History of atrial fibrillation on Eliquis #3. Chronic left knee and left leg weakness, status post nerve block on 06/16/2021 in the left knee #4. Diabetes mellitus type 2 #5. History of coronary artery disease status post multiple stent placements #6. Hypertension Plan: Patient seems to be back to baseline from neurological standpoint No acute issues overnight Continues on Eliquis, high intensity Lipitor, Coreg Blood pressure and other vitals are stable Pulmonary/critical care service will sign off on follow on as-needed basis I performed a history & physical examination of the patient and discussed their management with my nurse practitioner, Joycelyn Dalal. I reviewed the nurse practitioner's note and agree with the documented findings and plan of care. Lung sounds are positive for diminished breath sounds. throughout the lung fuentes. The findings and the impression was discussed with the patient. I attest to the documentation by the nurse practitioner. Time with Patient: Less than 30
[2021-06-19 16:38] VITALS: BP 130/78; PULSE 63; RESP 16
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
== END 2021-06-19 17:29 | disposition home or self-care (01) | DRG 62 ==
LOC: EC 14:59 → 2SICU 16:52 → 3SCARD 06-17 16:08
PROVIDERS: ADMIT Internal Medicine; ATTEND Internal Medicine
DX: I63.9 Cerebral infarction, unspecified (principal); I45.2 Bifascicular block; E03.9 Hypothyroidism, unspecified; I48.0 Paroxysmal atrial fibrillation; E11.9 Type 2 diabetes mellitus without complications; J44.9 Chronic obstructive pulmonary disease, unspecified; I10 Essential (primary) hypertension; E78.5 Hyperlipidemia, unspecified; R29.703 NIHSS score 3; R47.1 Dysarthria and anarthria; R29.810 Facial weakness; R53.1 Weakness; G89.29 Other chronic pain; I25.10 Atherosclerotic heart disease of native coronary artery without angina pectoris; I25.2 Old myocardial infarction; Z79.01 Long term (current) use of anticoagulants; Z79.51 Long term (current) use of inhaled steroids; Z79.890 Hormone replacement therapy; Z79.84 Long term (current) use of oral hypoglycemic drugs; Z79.82 Long term (current) use of aspirin; Z79.899 Other long term (current) drug therapy; Z90.49 Acquired absence of other specified parts of digestive tract; Z87.19 Personal history of other diseases of the digestive system; Z95.1 Presence of aortocoronary bypass graft; Z95.5 Presence of coronary angioplasty implant and graft; Z87.891 Personal history of nicotine dependence; Z96.652 Presence of left artificial knee joint; Z87.01 Personal history of pneumonia (recurrent); Z98.890 Other specified postprocedural states; Z88.8 Allergy status to other drugs, medicaments and biological substances; Z88.1 Allergy status to other antibiotic agents; Z91.041 Radiographic dye allergy status; Z88.5 Allergy status to narcotic agent; Z91.013 Allergy to seafood; Z83.3 Family history of diabetes mellitus; Z82.49 Family history of ischemic heart disease and other diseases of the circulatory system; Z82.3 Family history of stroke
CPT/HCPCS: 36415; 37195; 70450; 70496; 70498; 71045; 80053; 80061; 81003; 83036; 84439; 84443; 84484; 85025; 85610; 85730; 93308; 94640; 94760; 96361; 96374; 96375; 99285

== ENCOUNTER 2021-06-25 14:33 | Emergency (ER) | payer MEDICARE ==
[2021-06-25 14:44] VITALS: RESP 18; TEMP 98.2
[2021-06-25] MEDS ORDERED: MORPHINE SULFATE 4 MG/ML SYRINGE IM STA (15:09)
[2021-06-25] MEDS ORDERED: ONDANSETRON ODT 4 MG TAB PO STA (15:12)
--- NOTE | 2021-06-25 16:14 | US ---
EXAMINATION TYPE: US venous doppler duplex LE LT DATE OF EXAM: 06/25/2021 3:59 PM COMPARISON: US dated 03/18/2021. CLINICAL HISTORY: pain lower leg. SIDE PERFORMED: Left TECHNIQUE: The lower extremity deep venous system is examined utilizing real time linear array sonog flor with graded compression, doppler sonography and color-flow sonography. VESSELS IMAGED: Common Femoral Vein Deep Femoral Vein Greater Saphenous Vein * Femoral Vein Popliteal Vein Small Saphenous Vein * Proximal Calf Veins (* superficial vessels) multiple nodes noted left groin, largest measures 2.2 x 1.6 cm, and does not have normal fatty hilum. Left Leg: Negative for DVT IMPRESSION: No evidence of deep vein thrombosis in the left leg.
--- NOTE | 2021-06-25 16:22 | ED ---
Extremity Problem HPI - General Chief complaint: Extremity Problem,Nontraumatic Stated complaint: L leg pain Time Seen by Provider: 06/25/21 14:47 Source: patient, RN notes reviewed Mode of arrival: wheelchair Limitations: no limitations - History of Present Illness Initial comments: Patient is a 75-year-old male that presented to the emergency department complaining of left knee and lower leg pain. He notes that he does have chronic neuropathy and pain in the left. 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 He notes that he does not think he can wait that long as he is having significant pain. He wanted noted any due to control the pain. He noted that he had a nerve block on the lateral aspect left knee which works temporarily along with [place] as. He also notes that he took a [place] 7.5 and his gabapentin this morning at 10:30 with no relief. He notes he takes gabapentin 3 times a day for neuropathy pain. He was otherwise well- appearing 75 she'll male in no apparent distress or pain. He was recently seen on the for stroke given TPA. Does have a history of A. fib. He notes that he is feeling well other than this pain. He denied any chest pain shortness of breath headache nausea vomiting diarrhea constipation fever fatigue chills. - Related Data Home Medications Medication Instructions Recorded Confirmed Allopurinol [Zyloprim] 300 mg PO DAILY 08/07/17 06/16/21 Albuterol Sulfate [Proventil Hfa] 1 puff INHALATION RT-Q4H PRN 10/15/17 06/16/21 Gabapentin 1,200 mg PO TID 10/02/18 06/16/21 Levothyroxine Sodium [Synthroid] 112 mcg PO DAILY 10/02/18 06/16/21 Levothyroxine Sodium [Synthroid] 125 mcg PO DAILY 10/02/18 06/16/21 Nitroglycerin Sl Tabs [Nitrostat] 0.4 mg SL Q5M PRN 10/02/18 06/16/21 diazePAM [Valium] 5 mg PO HS PRN 10/02/18 06/16/21 Apixaban [Eliquis] 5 mg PO BID 11/07/19 06/16/21 Budesonide/Formoterol Fumarate 2 puff INHALATION RT-BID 11/07/19 06/16/21 [Symbicort 80-4.5 Mcg Inhaler] Hydrocodone/Acetaminophen [[place] 1 tab PO BID PRN 11/07/19 06/16/21 7.5-325] Finasteride [Proscar] 5 mg PO HS 03/17/21 06/16/21 Magnesium Oxide [Mag-Ox] 500 mg PO HS 03/17/21 06/16/21 Meclizine [Antivert] 25 mg PO BID PRN 03/17/21 06/16/21 Omeprazole 20 mg PO DAILY 03/17/21 06/16/21 carvediloL [Coreg] 6.25 mg PO BID 03/17/21 06/16/21 metFORMIN HCL [Glucophage] 1,000 mg PO BID 03/17/21 06/16/21 Previous Rx's Medication Instructions Recorded Atorvastatin [Lipitor] 80 mg PO HS tab 06/19/21 Allergies Allergy/AdvReac Type Severity Reaction Status Date / Time cephalexin [From Keflex] Allergy Unknown Verified 06/25/21 14:45 clopidogrel [From Plavix] Allergy Rash/Hives Verified 06/25/21 14:45 codeine Allergy Rash/Nausea Verified 06/25/21 14:45 & Vomiting Iodine and Iodide Containing Allergy Rash/Hives Verified 06/25/21 14:45 Produc levofloxacin [From Levaquin] Allergy urticaria/r Verified 06/25/21 14:45 belle shellfish derived [Shellfish] Allergy urticaria/r Verified 06/25/21 14:45 belle lisinopril AdvReac Angiodema Verified 06/25/21 14:45 of tongue oxycodone AdvReac Hallucinati Verified 06/25/21 14:45 ons solifenacin AdvReac Nausea & Verified 06/25/21 14:45 Vomiting Review of Systems ROS Statement: Those systems with pertinent positive or pertinent negative responses have been documented in the HPI. ROS Other: All systems not noted in ROS Statement are negative. Past Medical History Past Medical History: Atrial Fibrillation, Asthma, Coronary Artery Disease (CAD), COPD, Diabetes Mellitus, Hypertension, Myocardial Infarction ([place]), Pneumonia Additional Past Medical History / Comment(s): left knee cap broken, pancreat itis, /gallstones Last Myocardial Infarction Date:: 2017 History of Any Multi-Drug Resistant Organisms: None Reported Past Surgical History: Cholecystectomy, Coronary Bypass/CABG, Heart Catheterization With Stent, Hernia Repair, Orthopedic Surgery Additional Past Surgical History / Comment(s): lt knee replacement(total of 3 sx), colonoscopy, Past Anesthesia/Blood Transfusion Reactions: No Reported Reaction Date of Last Stent Placement:: 10/2015 Past Psychological History: No Psychological Hx Reported Smoking Status: Former smoker Past Alcohol Use History: Occasional Past Drug Use History: None Reported - Past Family History Father Family Medical History: Diabetes Mellitus Mother Family Medical History: CVA/TIA, Hypertension General Exam Limitations: no limitations General appearance: alert, in no apparent distress Head exam: Present: atraumatic, normocephalic, normal inspection Eye exam: Present: normal appearance, PERRL, EOMI. Absent: scleral icterus, conjunctival injection, periorbital swelling Neck exam: Present: normal inspection Respiratory exam: Present: normal lung sounds bilaterally. Absent: respiratory distress, wheezes, rales, rhonchi, stridor Cardiovascular Exam: Present: regular rate, normal rhythm, normal heart sounds. Absent: systolic murmur, diastolic murmur, rubs, gallop, clicks Extremities exam: Present: normal inspection, full ROM, normal capillary refill. Absent: tenderness, pedal edema, joint swelling, calf tenderness Left Knee exam: Present: normal inspection, full ROM (With pain), tenderness (Medial aspect). Absent: swelling, abrasion, laceration, ecchymosis, deformity, crepitus, dislocation, erythema, effusion Lower Leg exam: Present: normal inspection, full ROM. Absent: tenderness, swelling, abrasion, erythema, palpable cord, Homans' sign Neurological exam: Present: alert, oriented X3 Psychiatric exam: Present: normal affect, normal mood Skin exam: Present: warm, dry, intact, normal color. Absent: rash Course Vital Signs 06/25/21 14:41 Temperature 98.2 F Pulse Rate 70 Respiratory 18 Rate Blood Pressure 117/67 O2 Sat by Pulse 95 Oximetry Medical Decision Making - Medical Decision Making 75-year-old male complaining of left knee and lower leg pain that is chronic. He does have a follow-up on July 24 for a nerve block. Ultrasound of the left lower extremity, 4 mg of morphine, 4 mg Zofran ordered. Ultrasound negative for any DVT. Case discussed with Dr. Michel, patient can discharge home with continuing follow-up to neuro specialist. - Radiology Data Radiology results: report reviewed, image reviewed Ultrasound left lower extremity: Negative for DVT. Disposition Clinical Impression: Chronic pain of left lower extremity, Neuropathy Disposition: HOME SELF-CARE Condition: Stable Instructions (If sedation given, give patient instructions): Chronic Pain (ED) Additional Instructions: Please return to the Emergency Department if symptoms worsen or any other concerns. Follow-up with primary care 1-2 days. Follow-up with no specialist as planned. Continue take at home pain medications as prescribed. Is patient prescribed a controlled substance at d/c from ED?: No Referrals: Teresa Walter MD [Primary Care Provider] - 1-2 days Time of Disposition: 16:37
[2021-06-25 17:27] VITALS: BP 119/98; PULSE 73
== END 2021-06-25 17:29 | disposition home or self-care (01) ==
LOC: EC 14:33
DX: M25.562 Pain in left knee (principal); G89.29 Other chronic pain; G62.9 Polyneuropathy, unspecified; Z87.891 Personal history of nicotine dependence; J44.9 Chronic obstructive pulmonary disease, unspecified; E11.9 Type 2 diabetes mellitus without complications; I48.91 Unspecified atrial fibrillation; I10 Essential (primary) hypertension; I25.2 Old myocardial infarction; I25.10 Atherosclerotic heart disease of native coronary artery without angina pectoris; Z95.5 Presence of coronary angioplasty implant and graft; Z95.1 Presence of aortocoronary bypass graft; Z79.51 Long term (current) use of inhaled steroids; Z79.899 Other long term (current) drug therapy; Z79.84 Long term (current) use of oral hypoglycemic drugs; Z88.1 Allergy status to other antibiotic agents; Z88.8 Allergy status to other drugs, medicaments and biological substances; Z88.5 Allergy status to narcotic agent; Z91.013 Allergy to seafood
CPT/HCPCS: 93971; 96372; 99283; J2270

== ENCOUNTER 2021-10-13 20:24 | Emergency (ER) | payer MEDICARE ==
[2021-10-13 20:39] VITALS: RESP 18
--- NOTE | 2021-10-13 20:47 | ED ---
General Adult HPI - General Chief complaint: Chest Pain Stated complaint: Chest Pain Time Seen by Provider: 10/13/21 20:33 Source: patient, EMS Mode of arrival: EMS Limitations: no limitations - History of Present Illness Initial comments: Patient presents to the ED by ambulance for evaluation. Patient states that he has had constant, localized, left lower chest pain for the past 2 days. Patient states that his pain is worse when he lays on the left side of his chest and worse with palpation. Patient denies radiation of his pain, trauma or injury, fever or chills, headache, focal numbness/weakness/neuro deficit, neck/arm/jaw/back pain, dyspnea, cough or cold symptoms, palpitations, dizziness, nausea/vomiting/diaphoresis, abdominal pain, diarrhea, dysuria or urinary symptoms, leg or calf swelling or pain, or any other symptoms or complaints. Patient is on Eliquis anticoagulation therapy. - Related Data Home Medications Medication Instructions Recorded Confirmed Allopurinol [Zyloprim] 300 mg PO DAILY 08/07/17 06/16/21 Albuterol Sulfate [Proventil Hfa] 1 puff INHALATION RT-Q4H PRN 10/15/17 06/16/21 Gabapentin 1,200 mg PO TID 10/02/18 06/16/21 Levothyroxine Sodium [Synthroid] 112 mcg PO DAILY 10/02/18 06/16/21 Levothyroxine Sodium [Synthroid] 125 mcg PO DAILY 10/02/18 06/16/21 Nitroglycerin Sl Tabs [Nitrostat] 0.4 mg SL Q5M PRN 10/02/18 06/16/21 diazePAM [Valium] 5 mg PO HS PRN 10/02/18 06/16/21 Apixaban [Eliquis] 5 mg PO BID 11/07/19 06/16/21 Budesonide/Formoterol Fumarate 2 puff INHALATION RT-BID 11/07/19 06/16/21 [Symbicort 80-4.5 Mcg Inhaler] Hydrocodone/Acetaminophen [[place] 1 tab PO BID PRN 11/07/19 06/16/21 7.5-325] Finasteride [Proscar] 5 mg PO HS 03/17/21 06/16/21 Magnesium Oxide [Mag-Ox] 500 mg PO HS 03/17/21 06/16/21 Meclizine [Antivert] 25 mg PO BID PRN 03/17/21 06/16/21 Omeprazole 20 mg PO DAILY 03/17/21 06/16/21 carvediloL [Coreg] 6.25 mg PO BID 03/17/21 06/16/21 metFORMIN HCL [Glucophage] 1,000 mg PO BID 03/17/21 06/16/21 Previous Rx's Medication Instructions Recorded Atorvastatin [Lipitor] 80 mg PO HS tab 06/19/21 Allergies Allergy/AdvReac Type Severity Reaction Status Date / Time cephalexin [From Keflex] Allergy Unknown Verified 10/13/21 20:40 clopidogrel [From Plavix] Allergy Rash/Hives Verified 10/13/21 20:40 codeine Allergy Rash/Nausea Verified 10/13/21 20:40 & Vomiting Iodine and Iodide Containing Allergy Rash/Hives Verified 10/13/21 20:40 Produc levofloxacin [From Levaquin] Allergy urticaria/r Verified 10/13/21 20:40 belle shellfish derived [Shellfish] Allergy urticaria/r Verified 10/13/21 20:40 belle lisinopril AdvReac Angiodema Verified 10/13/21 20:40 of tongue oxycodone AdvReac Hallucinati Verified 10/13/21 20:40 ons solifenacin AdvReac Nausea & Verified 10/13/21 20:40 Vomiting Review of Systems ROS Statement: Those systems with pertinent positive or pertinent negative responses have been documented in the HPI. ROS Other: All systems not noted in ROS Statement are negative. Past Medical History Past Medical History: Atrial Fibrillation, Asthma, Coronary Artery Disease (CAD), COPD, Diabetes Mellitus, Hypertension, Myocardial Infarction ([place]), Pneumonia Additional Past Medical History / Comment(s): left knee cap broken, pancreatitis, /gallstones Last Myocardial Infarction Date:: 2017 History of Any Multi-Drug Resistant Organisms: None Reported Past Surgical History: Cholecystectomy, Coronary Bypass/CABG, Heart Catheterization With Stent, Hernia Repair, Orthopedic Surgery Additional Past Surgical History / Comment(s): lt knee replacement(total of 3 sx), colonoscopy, Left knee cap removal with antibiotic spacers placed, Past Anesthesia/Blood Transfusion Reactions: No Reported Reaction Date of Last Stent Placement:: 10/2015 Past Psychological History: No Psychological Hx Reported Smoking Status: Former smoker Past Alcohol Use History: Occasional Past Drug Use History: None Reported - Past Family History Father Family Medical History: Diabetes Mellitus Mother Family Medical History: CVA/TIA, Hypertension General Exam Limitations: no limitations General appearance: alert, in no apparent distress Head exam: Present: atraumatic, normocephalic Eye exam: Present: normal appearance, EOMI ENT exam: Present: mucous membranes moist Neck exam: Present: other (Trachea is in midline) Respiratory exam: Present: normal lung sounds bilaterally, other (Reproducible left anteroinferior chest wall tenderness; no deformity or crepitation is appreciated). Absent: respiratory distress, wheezes, rales, rhonchi, stridor Cardiovascular Exam: Present: regular rate, normal rhythm, normal heart sounds, other (Normal radial pulses bilaterally) GI/Abdominal exam: Present: soft. Absent: distended, tenderness, guarding Extremities exam: Present: other (Negative Homans sign bilaterally). Absent: tenderness, pedal edema, calf tenderness Neurological exam: Present: alert, oriented X3. Absent: motor sensory deficit Psychiatric exam: Present: normal affect, normal mood Skin exam: Present: warm, dry, intact, normal color Course Vital Signs 10/13/21 10/13/21 10/13/21 20:33 20:40 22:00 Temperature 97.6 F Pulse Rate 62 66 Pulse Rate [ 62 [employer] ] Respiratory 18 18 Rate Blood Pressure 115/65 109/68 O2 Sat by Pulse 97 97 Oximetry - Reevaluation(s) Reevaluation #1: 10/13/21 22:23 Patient denies development of any new symptoms while in the ED. Patient remains alert and breathing comfortably with a normal room air oxygen saturation. Patient is aware of his test results, and he feels comfortable being discharged home at this time. Patient in fact prefers to be discharged home at this time. Patient was counseled about chest pain/chest wall pain, and he was clearly explained return and follow-up instructions. Patient is instructed to have a low threshold for return to the emergency department should his symptoms worsen. Patient was also instructed to follow up closely with his primary care provider. Patient feels comfortable this plan. EKG Findings - EKG Comments: EKG Findings:: Normal sinus rhythm, ventricular rate of 62 bpm, no ectopy, right bundle branch block, left anterior fascicular block, no significant change when compared to 06/16/2021 EKG Medical Decision Making - Medical Decision Making Patient's chest pain is localized and reproducible with palpation. Patient reports having constant pain for the past 2 days, and his troponin is negative. I do not think the patient's chest pain is from a cardiac or emergent medical condition at this time, and I think that it is much more likely that his chest pain is chest wall in etiology. Will discharge patient home at this time. Patient was clearly explained return and follow-up instructions. Patient feels comfortable with this plan. - Lab Data Result diagrams: 10/13/21 20:57 10/13/21 21:01 Lab Results 10/13/21 10/13/21 10/13/21 Range/Units 20:57 20:57 20:57 WBC 7.7 (3.8-10.6) k/uL RBC 4.02 L (4.30-5.90) m/uL Hgb 11.9 L (13.0-17.5) gm/dL Hct 38.0 L (39.0-53.0) % MCV 94.5 (80.0-100.0) fL MCH 29.7 (25.0-35.0) pg MCHC 31.4 (31.0-37.0) g/dL RDW 14.4 (11.5-15.5) % Plt Count 183 (150-450) k/uL MPV 7.2 Neutrophils % 66 % Lymphocytes % 17 % Monocytes % 6 % Eosinophils % 8 % Basophils % 1 % Neutrophils # 5.1 (1.3-7.7) k/uL Lymphocytes # 1.3 (1.0-4.8) k/uL Monocytes # 0.5 (0-1.0) k/uL Eosinophils # 0.6 (0-0.7) k/uL Basophils # 0.1 (0-0.2) k/uL Hypochromasia Slight PT 11.6 (9.0-12.0) sec INR 1.1 (<1.2) APTT 29.0 (22.0-30.0) sec Sodium (137-145) mmol/L Potassium (3.5-5.1) mmol/L Chloride (98-107) mmol/L Carbon Dioxide (22-30) mmol/L Anion Gap mmol/L BUN (9-20) mg/dL Creatinine (0.66-1.25) mg/dL Est GFR (CKD-EPI)AfAm (>60 ml/min/1.73 sqM) Est GFR (CKD-EPI)NonAf (>60 ml/min/1.73 sqM) Glucose (74-99) mg/dL Calcium (8.4-10.2) mg/dL Magnesium (1.6-2.3) mg/dL Total Bilirubin (0.2-1.3) mg/dL AST (17-59) U/L ALT (4-49) U/L Alkaline Phosphatase (38-126) U/L Troponin I (0.000-0.034) ng/mL NT-Pro-B Natriuret Pep 1180 pg/mL Total Protein (6.3-8.2) g/dL Albumin (3.5-5.0) g/dL 10/13/21 10/13/21 Range/Units 21:01 21:01 WBC (3.8-10.6) k/uL RBC (4.30-5.90) m/uL Hgb (13.0-17.5) gm/dL Hct (39.0-53.0) % MCV (80.0-100.0) fL MCH (25.0-35.0) pg MCHC (31.0-37.0) g/dL RDW (11.5-15.5) % Plt Count (150-450) k/uL MPV Neutrophils % % Lymphocytes % % Monocytes % % Eosinophils % % Basophils % % Neutrophils # (1.3-7.7) k/uL Lymphocytes # (1.0-4.8) k/uL Monocytes # (0-1.0) k/uL Eosinophils # (0-0.7) k/uL Basophils # (0-0.2) k/uL Hypochromasia PT (9.0-12.0) sec INR (<1.2) APTT (22.0-30.0) sec Sodium 135 L (137-145) mmol/L Potassium 4.1 (3.5-5.1) mmol/L Chloride 102 (98-107) mmol/L Carbon Dioxide 25 (22-30) mmol/L Anion Gap 8 mmol/L BUN 10 (9-20) mg/dL Creatinine 0.93 (0.66-1.25) mg/dL Est GFR (CKD-EPI)AfAm >90 (>60 ml/min/1.73 sqM) Est GFR (CKD-EPI)NonAf 79 (>60 ml/min/1.73 sqM) Glucose 124 H (74-99) mg/dL Calcium 8.3 L (8.4-10.2) mg/dL Magnesium 1.5 L (1.6-2.3) mg/dL Total Bilirubin 0.3 (0.2-1.3) mg/dL AST 18 (17-59) U/L ALT 8 (4-49) U/L Alkaline Phosphatase 67 (38-126) U/L Troponin I <0.012 (0.000-0.034) ng/mL NT-Pro-B Natriuret Pep pg/mL Total Protein 6.2 L (6.3-8.2) g/dL Albumin 3.1 L (3.5-5.0) g/dL - Radiology Data Radiology results: report reviewed (Chest x-ray: No acute cardiopulmonary disease/process. Chronic interstitial lung markings with superimposed vascular congestion suggested, correlate with BNP.) Disposition Clinical Impression: Chest pain Narrative: Suspected chest wall pain Disposition: HOME SELF-CARE Condition: Stable Instructions (If sedation given, give patient instructions): Chest Pain (ED), Costochondritis (ED) Additional Instructions: Return to the ER immediately should you develop new or worsening pain, shortness of breath, nausea or vomiting, feeling dizzy or faint, a fever, or new or worsening symptoms. Follow up closely with your primary care provider. Is patient prescribed a controlled substance at d/c from ED?: No Referrals: Teresa Walter MD [Primary Care Provider] - 1-2 days Time of Disposition: 22:20
[2021-10-13 21:05] LABS: Basophils # (A) 0.1 k/uL (0-0.2); Basophils % (A) 1 %; Eosinophils # (A) 0.6 k/uL (0-0.7); Eosinophils % (A) 8 %; HGB 11.9 gm/dL (13.0-17.5); Hypochromasia Slight; Lymphocytes # (A) 1.3 k/uL (1.0-4.8); Lymphocytes % (A) 17 %; MCH 29.7 pg (25.0-35.0); MCHC 31.4 g/dL (31.0-37.0); MCV 94.5 fL (80.0-100.0); Mean Platelet Volume 7.2; Monocytes # (A) 0.5 k/uL (0-1.0); Monocytes % (A) 6 %; Neutrophils # (A) 5.1 k/uL (1.3-7.7); Neutrophils % (A) 66 %; Platelet Count 183 k/uL (150-450); RBC 4.02 m/uL (4.30-5.90); RDW 14.4 % (11.5-15.5); WBC 7.7 k/uL (3.8-10.6)
[2021-10-13 21:18] LABS: INR 1.1 (<1.2); Prothrombin Time 11.6 sec (9.0-12.0)
[2021-10-13 21:19] LABS: ALT 8 U/L (4-49); AST 18 U/L (17-59); African American GFR (CKD) >90 (>60 ml/min/1.73 sqM); Albumin 3.1 g/dL (3.5-5.0); Alkaline Phosphatase 67 U/L (38-126); Anion Gap 8 mmol/L; Blood Urea Nitrogen 10 mg/dL (9-20); Calcium 8.3 mg/dL (8.4-10.2); Carbon Dioxide 25 mmol/L (22-30); Chloride 102 mmol/L (98-107); Glucose 124 mg/dL (74-99); Magnesium 1.5 mg/dL (1.6-2.3); Non-African American GFR(CKD) 79 (>60 ml/min/1.73 sqM); Potassium 4.1 mmol/L (3.5-5.1); Sodium 135 mmol/L (137-145); Total Bilirubin 0.3 mg/dL (0.2-1.3); Total Protein 6.2 g/dL (6.3-8.2)
--- NOTE | 2021-10-13 21:25 | XR ---
EXAMINATION TYPE: XR chest 1V portable DATE OF EXAM: 10/13/2021 9:11 PM COMPARISON:Chest radiographs from 06/16/2021 CLINICAL INDICATION:Male, 76 years old with history of chest pain; TECHNIQUE: Frontal view of the chest. FINDINGS: Lungs/Pleura: There is no evidence of pleural effusion, focal consolidation, or pneumothorax. Simila r lung markings to prior. Pulmonary vascularity: Pulmonary vascular congestion. Heart/mediastinum: Cardiomediastinal silhouette is enlarged and stable. Musculoskeletal: No acute osseous pathology. Sternotomy wires noted IMPRESSION: No acute cardiopulmonary disease/process. Chronic interstitial lung marking markings with superimposed vascular congestion suggested, correlate with BNP.
[2021-10-13 22:34] VITALS: BP 108/70; PULSE 71; TEMP 97.7
== END 2021-10-13 22:32 | disposition home or self-care (01) ==
LOC: EC 20:24
DX: R07.89 Other chest pain (principal); I25.2 Old myocardial infarction; J44.9 Chronic obstructive pulmonary disease, unspecified; E11.9 Type 2 diabetes mellitus without complications; I25.10 Atherosclerotic heart disease of native coronary artery without angina pectoris; I10 Essential (primary) hypertension; I48.91 Unspecified atrial fibrillation; Z95.5 Presence of coronary angioplasty implant and graft; Z87.891 Personal history of nicotine dependence; Z88.1 Allergy status to other antibiotic agents; Z88.8 Allergy status to other drugs, medicaments and biological substances; Z91.013 Allergy to seafood; Z88.5 Allergy status to narcotic agent; Z79.01 Long term (current) use of anticoagulants; Z79.899 Other long term (current) drug therapy; Z79.51 Long term (current) use of inhaled steroids; Z79.84 Long term (current) use of oral hypoglycemic drugs
CPT/HCPCS: 36415; 71045; 80053; 83735; 83880; 84484; 85025; 85610; 85730; 99285

== ENCOUNTER 2021-10-19 11:19 | Inpatient (IN) | payer MEDICARE ==
[2021-10-19] MEDS ORDERED: SODIUM CHLORIDE 0.9% 500 ML 500 ML IV STA (11:51)
--- NOTE | 2021-10-19 12:01 | ED ---
General Adult HPI - General Source: patient, EMS, RN notes reviewed Mode of arrival: EMS Limitations: no limitations <Gosia Salas - Last Filed: 10/19/21 21:53> <Natalia Álvarez - Last Filed: 10/23/21 23:38> - General Chief complaint: Weakness Stated complaint: weakness Time Seen by Provider: 10/19/21 11:29 - History of Present Illness Initial comments: 76-year-old male presents to the emergency department via EMS from home for evaluation of increased weakness, onset last night. Patient states he has has been sleeping in his chair due to mobility issues from a knee surgery approximately 10 weeks ago. States he was unable to get out of the chair this morning therefore family called EMS to have him transported to the hospital. Patient states he has been ambulatory with a walker every day since surgery until today. States he did receive his influenza and Covid vaccines yesterday. Reports generalized weakness and body aches today. Denies fever at home, though is febrile here; no chills, headache, chest pain, shortness of breath, abdominal pain, constipation, dysuria, or increased lower extremity edema. (Gosia Salas) - Related Data Home Medications Medication Instructions Recorded Confirmed Allopurinol [Zyloprim] 300 mg PO DAILY 08/07/17 10/19/21 Albuterol Sulfate [Proventil Hfa] 1 puff INHALATION RT-Q4H PRN 10/15/17 10/19/21 Gabapentin 1,200 mg PO TID 10/02/18 10/19/21 Levothyroxine Sodium [Synthroid] 112 mcg PO DAILY 10/02/18 10/19/21 Levothyroxine Sodium [Synthroid] 125 mcg PO DAILY 10/02/18 10/19/21 Nitroglycerin Sl Tabs [Nitrostat] 0.4 mg SL Q5M PRN 10/02/18 10/19/21 diazePAM [Valium] 5 mg PO BID PRN 10/02/18 10/19/21 Apixaban [Eliquis] 5 mg PO BID 11/07/19 10/19/21 Finasteride [Proscar] 5 mg PO HS 03/17/21 10/19/21 Magnesium Oxide [Mag-Ox] 500 mg PO HS 03/17/21 10/19/21 Meclizine [Antivert] 25 mg PO BID PRN 03/17/21 10/19/21 Omeprazole 20 mg PO DAILY 03/17/21 10/19/21 carvediloL [Coreg] 6.25 mg PO BID-W/MEALS 03/17/21 10/19/21 metFORMIN HCL [Glucophage] 1,000 mg PO BID 03/17/21 10/19/21 Atorvastatin [Lipitor] 40 mg PO HS 10/19/21 10/19/21 Fluticasone Propion/Salmeterol 1 puff INHALATION RT-BID 10/19/21 10/19/21 [Fluticasone-Salmeterol 100-50] HYDROcodone/APAP 10-325MG [Amberg 1 tab PO Q4HR PRN 10/19/21 10/19/21 10-325] Mirabegron [Myrbetriq] 50 mg PO DAILY PRN 10/19/21 10/19/21 Previous Rx's Medication Instructions Recorded Diphenox-Atrop 2.5-0.025 mg 1 each PO Q6HR PRN tab 10/21/21 [Lomotil] Allergies Allergy/AdvReac Type Severity Reaction Status Date / Time cephalexin [From Keflex] Allergy Unknown Verified 10/19/21 11:55 clopidogrel [From Plavix] Allergy Rash/Hives Verified 10/19/21 11:55 codeine Allergy Rash/Nausea Verified 10/19/21 11:55 & Vomiting Iodine and Iodide Containing Allergy Rash/Hives Verified 10/19/21 11:55 Produc levofloxacin [From Levaquin] Allergy urticaria/r Verified 10/19/21 11:55 belle shellfish derived [Shellfish] Allergy urticaria/r Verified 10/19/21 11:55 belle lisinopril AdvReac Angiodema Verified 10/19/21 11:55 of tongue oxycodone AdvReac Hallucinati Verified 10/19/21 11:55 ons solifenacin AdvReac Nausea & Verified 10/19/21 11:55 Vomiting Review of Systems ROS Other: All systems not noted in ROS Statement are negative. <Gosia Salas - Last Filed: 10/19/21 21:53> ROS Other: All systems not noted in ROS Statement are negative. <Natalia Álvarez - Last Filed: 10/23/21 23:38> ROS Statement: Those systems with pertinent positive or pertinent negative responses have been documented in the HPI. Past Medical History Past Medical History: Atrial Fibrillation, Asthma, Coronary Artery Disease (CAD), COPD, Diabetes Mellitus, Hypertension, Myocardial Infarction ([place]), Pneumonia Additional Past Medical History / Comment(s): left knee cap broken, pancreatitis, /gallstones Last Myocardial Infarction Date:: 2017 History of Any Multi-Drug Resistant Organisms: None Reported Past Surgical History: Cholecystectomy, Coronary Bypass/CABG, Heart Catheterization With Stent, Hernia Repair, Orthopedic Surgery Additional Past Surgical History / Comment(s): lt knee replacement(total of 3 sx), colonoscopy, Left knee cap removal with antibiotic spacers placed, Past Anesthesia/Blood Transfusion Reactions: No Reported Reaction Date of Last Stent Placement:: 10/2015 Past Psychological History: No Psychological Hx Reported Smoking Status: Former smoker Past Alcohol Use History: Occasional Past Drug Use History: None Reported - Past Family History Father Family Medical History: Diabetes Mellitus Mother Family Medical History: CVA/TIA, Hypertension <Gosia Salas - Last Filed: 10/19/21 21:53> General Exam Limitations: physical limitation (Requires a walker for ambulation) General appearance: alert, in no apparent distress, other (This is a well- developed, well-nourished male in no acute distress. Initial temperature 102.1, rechecked 99.4, pulse 79, respiration 16, blood pressure 105/71, pulse ox 96% on room air.) ENT exam: Present: mucous membranes dry Respiratory exam: Present: normal lung sounds bilaterally. Absent: respiratory distress, wheezes, rales, rhonchi, stridor Cardiovascular Exam: Present: regular rate, normal rhythm, normal heart sounds, systolic murmur. Absent: diastolic murmur, rubs, gallop, clicks GI/Abdominal exam: Present: soft, normal bowel sounds. Absent: distended, tenderness, guarding, rebound, rigid Left Knee exam: Present: swelling (Left knee is warm to touch with moderate swelling compared with the right side. States the surgery was 8-10 weeks ago and had fluid aspirated from the knee a week ago.). Absent: full ROM, tenderness, ecchymosis, erythema Lower Leg exam: Present: normal inspection, full ROM. Absent: tenderness, swelling Ankle exam: Present: normal inspection, full ROM. Absent: tenderness, swelling Foot/Toe exam: Present: normal inspection, full ROM. Absent: tenderness, swelling Neurovascular tendon exam: Present: no vascular compromise. Absent: pulse deficit, abnormal cap refill, motor deficit, sensory deficit Neurological exam: Present: alert, oriented X3, CN II-XII intact Psychiatric exam: Present: flat affect Skin exam: Present: warm, dry, intact, normal color <Gosia Salas - Last Filed: 10/19/21 21:53> Course <Gosia Salas - Last Filed: 10/19/21 21:53> Vital Signs 10/19/21 10/19/21 10/19/21 11:22 14:18 15:39 Temperature 102.1 F H 98.2 F Pulse Rate 79 71 67 Pulse Rate [ Pulse Oximetery ] Respiratory 16 18 16 Rate Blood Pressure 105/71 91/56 88/56 Blood Pressure [Left Arm] O2 Sat by Pulse 96 93 L 94 L Oximetry 10/19/21 10/19/21 10/19/21 16:09 20:00 20:29 Temperature 98.0 F 98.1 F 98.3 F Pulse Rate 64 Pulse Rate [ 75 Pulse Oximetery ] Respiratory 17 17 Rate Blood Pressure 93/56 96/64 Blood Pressure 100/54 [Left Arm] O2 Sat by Pulse 94 L 96 Oximetry - Reevaluation(s) Reevaluation #1: 10/19/21 13:00 Patient's daughter called and explained that patient has had increasing weakness over the course of the past 2 days and has had a few episodes of diarrhea. States though he has been ambulatory at home with a walker, he has no energy and has had a waning appetite. States patient is suppose to have further work done on his left knee and she is concerned that he will not be strong enough for that next surgery. (Gosia Salas) Medical Decision Making - Lab Data Result diagrams: 10/19/21 17:53 10/19/21 12:03 - EKG Data EKG shows normal: sinus rhythm Rate: normal When compared to previous EKG there are: no significant change - Radiology Data Radiology results: report reviewed, image reviewed <Gosia Salas - Last Filed: 10/19/21 21:53> - Lab Data Result diagrams: 10/21/21 03:43 10/21/21 03:43 <Natalia Álvarez - Last Filed: 10/23/21 23:38> - Medical Decision Making This is a 76-year-old male with a past medical history of atrial fibrillation, coronary artery disease, CHF, COPD, and recent knee surgery who presents to the emergency department via EMS for evaluation of increased weakness. Upon exam, patient is alert and oriented with no focal neurological deficits. He acknowledges a decreased appetite, ongoing fatigue, and a few episodes of diarrhea over the past couple of days; mucous membranes are dry. Patient is borderline hypotensive. Patient was hydrated with IV fluids gently due to his history of CHF. Patient was febrile initially, though this is likely reactionary due to recent vaccination. Laboratory studies were reviewed and are not significantly altered from baseline. Magnesium was supplemented, Hemoccult was negative, neither influenza nor Covid were detected. Chest x-ray was obtained and is suggestive of CHF and COPD. Spoke with Dr. Mg who is willing to accept this admission. Patient is agreeable to hospitalization. This patient's care was discussed with my attending Dr. Álvarez. (Gosia Salas) I was available for consultation in the emergency department. The history and physical exam were done by the midlevel provider. I was consulted for this patients care. I reviewed the case with the midlevel provider and based on their presentation of the patient, I agree with the assessment, medical decision making and plan of care as documented. Chart was dictated using [employer] dictation software. Attempts were made to correct any dictation errors however some typographical errors may persist. Patient was seen during a national state of emergency due to the Covid-19 pandemic. (Natalia Álvarez) - Lab Data Lab Results 10/19/21 10/19/21 10/19/21 Range/Units 12:03 12:03 12:03 WBC 4.7 (3.8-10.6) k/uL RBC 2.74 L (4.30-5.90) m/uL Hgb 8.1 L D (13.0-17.5) gm/dL Hct 26.1 L (39.0-53.0) % MCV 95.2 (80.0-100.0) fL MCH 29.6 (25.0-35.0) pg MCHC 31.1 (31.0-37.0) g/dL RDW 13.7 (11.5-15.5) % Plt Count 99 L (150-450) k/uL MPV 8.0 Immature Gran % (Auto) % Absolute Nucleated RBC (0.00-0.00) X 10*3/uL Neutrophils % 81 % Lymphocytes % 9 % Monocytes % 7 % Eosinophils % 2 % Basophils % 1 % Immature Gran # (0.00-0.04) X 10*3/uL Neutrophils # 3.8 (1.3-7.7) k/uL Lymphocytes # 0.4 L (1.0-4.8) k/uL Monocytes # 0.3 (0-1.0) k/uL Eosinophils # 0.1 (0-0.7) k/uL Basophils # 0.0 (0-0.2) k/uL NRBC/100 WBC Diff (0.0-0.0) /100 WBCS Manual Slide Review Performed Hypochromasia Moderate Poikilocytosis (manual Present PT 12.9 H (9.0-12.0) sec INR 1.3 H (<1.2) APTT 30.5 H (22.0-30.0) sec Sodium (137-145) mmol/L Potassium (3.5-5.1) mmol/L Chloride (98-107) mmol/L Carbon Dioxide (22-30) mmol/L Anion Gap mmol/L BUN (9-20) mg/dL Creatinine (0.66-1.25) mg/dL Est GFR (CKD-EPI)AfAm (>60 ml/min/1.73 sqM) Est GFR (CKD-EPI)NonAf (>60 ml/min/1.73 sqM) BUN/Creatinine Ratio (12.00-20.00) Ratio Glucose (74-99) mg/dL Plasma Lactic Acid Gideon (0.7-2.0) mmol/L Calcium (8.4-10.2) mg/dL Magnesium (1.6-2.3) mg/dL Total Bilirubin (0.2-1.3) mg/dL AST (17-59) U/L ALT (4-49) U/L Alkaline Phosphatase (38-126) U/L Troponin I (0.000-0.034) ng/mL NT-Pro-B Natriuret Pep pg/mL Total Protein (6.3-8.2) g/dL Albumin (3.5-5.0) g/dL Urine Color Yellow Urine Appearance Clear (Clear) Urine pH 5.5 (5.0-8.0) Ur Specific [place] 1.014 (1.001-1.035) Urine Protein Trace H (Negative) Urine Glucose (UA) Negative (Negative) Urine Ketones Negative (Negative) Urine Blood Negative (Negative) Urine Nitrite Negative (Negative) Urine Bilirubin Negative (Negative) Urine Urobilinogen <2.0 (<2.0) mg/dL Ur Leukocyte Esterase Negative (Negative) Stool Occult Blood (Negative) Coronavirus (PCR) (Not Detectd) Influenza Type A RNA (Not Detectd) Influenza Type B (PCR) (Not Detectd) 10/19/21 10/19/21 10/19/21 Range/Units 12:03 12:03 12:03 WBC (3.8-10.6) k/uL RBC (4.30-5.90) m/uL Hgb (13.0-17.5) gm/dL Hct (39.0-53.0) % MCV (80.0-100.0) fL MCH (25.0-35.0) pg MCHC (31.0-37.0) g/dL RDW (11.5-15.5) % Plt Count (150-450) k/uL MPV Immature Gran % (Auto) % Absolute Nucleated RBC (0.00-0.00) X 10*3/uL Neutrophils % % Lymphocytes % % Monocytes % % Eosinophils % % Basophils % % Immature Gran # (0.00-0.04) X 10*3/uL Neutrophils # (1.3-7.7) k/uL Lymphocytes # (1.0-4.8) k/uL Monocytes # (0-1.0) k/uL Eosinophils # (0-0.7) k/uL Basophils # (0-0.2) k/uL NRBC/100 WBC Diff (0.0-0.0) /100 WBCS Manual Slide Review Hypochromasia Poikilocytosis (manual PT (9.0-12.0) sec INR (<1.2) APTT (22.0-30.0) sec Sodium 136 L (137-145) mmol/L Potassium 4.5 (3.5-5.1) mmol/L Chloride 108 H (98-107) mmol/L Carbon Dioxide 21 L (22-30) mmol/L Anion Gap 7 mmol/L BUN 9 (9-20) mg/dL Creatinine 0.78 (0.66-1.25) mg/dL Est GFR (CKD-EPI)AfAm >90 (>60 ml/min/1.73 sqM) Est GFR (CKD-EPI)NonAf 87 (>60 ml/min/1.73 sqM) BUN/Creatinine Ratio (12.00-20.00) Ratio Glucose 101 H (74-99) mg/dL Plasma Lactic Acid Gideon 1.6 (0.7-2.0) mmol/L Calcium 7.4 L (8.4-10.2) mg/dL Magnesium 1.3 L (1.6-2.3) mg/dL Total Bilirubin 0.8 (0.2-1.3) mg/dL AST 21 (17-59) U/L ALT 7 (4-49) U/L Alkaline Phosphatase 57 (38-126) U/L Troponin I 0.021 (0.000-0.034) ng/mL NT-Pro-B Natriuret Pep pg/mL Total Protein 6.3 (6.3-8.2) g/dL Albumin 2.9 L (3.5-5.0) g/dL Urine Color Urine Appearance (Clear) Urine pH (5.0-8.0) Ur Specific [place] (1.001-1.035) Urine Protein (Negative) Urine Glucose (UA) (Negative) Urine Ketones (Negative) Urine Blood (Negative) Urine Nitrite (Negative) Urine Bilirubin (Negative) Urine Urobilinogen (<2.0) mg/dL Ur Leukocyte Esterase (Negative) Stool Occult Blood (Negative) Coronavirus (PCR) (Not Detectd) Influenza Type A RNA (Not Detectd) Influenza Type B (PCR) (Not Detectd) 10/19/21 10/19/21 10/19/21 Range/Units 12:54 16:20 16:20 WBC (3.8-10.6) k/uL RBC (4.30-5.90) m/uL Hgb (13.0-17.5) gm/dL Hct (39.0-53.0) % MCV (80.0-100.0) fL MCH (25.0-35.0) pg MCHC (31.0-37.0) g/dL RDW (11.5-15.5) % Plt Count (150-450) k/uL MPV Immature Gran % (Auto) % Absolute Nucleated RBC (0.00-0.00) X 10*3/uL Neutrophils % % Lymphocytes % % Monocytes % % Eosinophils % % Basophils % % Immature Gran # (0.00-0.04) X 10*3/uL Neutrophils # (1.3-7.7) k/uL Lymphocytes # (1.0-4.8) k/uL Monocytes # (0-1.0) k/uL Eosinophils # (0-0.7) k/uL Basophils # (0-0.2) k/uL NRBC/100 WBC Diff (0.0-0.0) /100 WBCS Manual Slide Review Hypochromasia Poikilocytosis (manual PT (9.0-12.0) sec INR (<1.2) APTT (22.0-30.0) sec Sodium (137-145) mmol/L Potassium (3.5-5.1) mmol/L Chloride (98-107) mmol/L Carbon Dioxide (22-30) mmol/L Anion Gap mmol/L BUN (9-20) mg/dL Creatinine (0.66-1.25) mg/dL Est GFR (CKD-EPI)AfAm (>60 ml/min/1.73 sqM) Est GFR (CKD-EPI)NonAf (>60 ml/min/1.73 sqM) BUN/Creatinine Ratio (12.00-20.00) Ratio Glucose (74-99) mg/dL Plasma Lactic Acid Gideon (0.7-2.0) mmol/L Calcium (8.4-10.2) mg/dL Magnesium (1.6-2.3) mg/dL Total Bilirubin (0.2-1.3) mg/dL AST (17-59) U/L ALT (4-49) U/L Alkaline Phosphatase (38-126) U/L Troponin I (0.000-0.034) ng/mL NT-Pro-B Natriuret Pep pg/mL Total Protein (6.3-8.2) g/dL Albumin (3.5-5.0) g/dL Urine Color Urine Appearance (Clear) Urine pH (5.0-8.0) Ur Specific [place] (1.001-1.035) Urine Protein (Negative) Urine Glucose (UA) (Negative) Urine Ketones (Negative) Urine Blood (Negative) Urine Nitrite (Negative) Urine Bilirubin (Negative) Urine Urobilinogen (<2.0) mg/dL Ur Leukocyte Esterase (Negative) Stool Occult Blood Negative (Negative) Coronavirus (PCR) Not Detected (Not Detectd) Influenza Type A RNA Not Detected (Not Detectd) Influenza Type B (PCR) Not Detected (Not Detectd) 10/19/21 10/19/21 10/19/21 Range/Units 16:20 17:53 17:53 WBC 5.0 (3.8-10.6) k/uL RBC 3.87 L (4.30-5.90) m/uL Hgb 11.6 L D (13.0-17.5) gm/dL Hct 36.4 L (39.0-53.0) % MCV 94.0 (80.0-100.0) fL MCH 29.8 (25.0-35.0) pg MCHC 31.8 (31.0-37.0) g/dL RDW 14.1 (11.5-15.5) % Plt Count 116 L (150-450) k/uL MPV 7.9 Immature Gran % (Auto) % Absolute Nucleated RBC (0.00-0.00) X 10*3/uL Neutrophils % 71 % Lymphocytes % 14 % Monocytes % 9 % Eosinophils % 3 % Basophils % 1 % Immature Gran # (0.00-0.04) X 10*3/uL Neutrophils # 3.6 (1.3-7.7) k/uL Lymphocytes # 0.7 L (1.0-4.8) k/uL Monocytes # 0.5 (0-1.0) k/uL Eosinophils # 0.2 (0-0.7) k/uL Basophils # 0.0 (0-0.2) k/uL NRBC/100 WBC Diff (0.0-0.0) /100 WBCS Manual Slide Review Hypochromasia Slight Poikilocytosis (manual PT (9.0-12.0) sec INR (<1.2) APTT (22.0-30.0) sec Sodium (137-145) mmol/L Potassium (3.5-5.1) mmol/L Chloride (98-107) mmol/L Carbon Dioxide (22-30) mmol/L Anion Gap mmol/L BUN (9-20) mg/dL Creatinine (0.66-1.25) mg/dL Est GFR (CKD-EPI)AfAm (>60 ml/min/1.73 sqM) Est GFR (CKD-EPI)NonAf (>60 ml/min/1.73 sqM) BUN/Creatinine Ratio (12.00-20.00) Ratio Glucose (74-99) mg/dL Plasma Lactic Acid Gideon (0.7-2.0) mmol/L Calcium (8.4-10.2) mg/dL Magnesium (1.6-2.3) mg/dL Total Bilirubin (0.2-1.3) mg/dL AST (17-59) U/L ALT (4-49) U/L Alkaline Phosphatase (38-126) U/L Troponin I (0.000-0.034) ng/mL NT-Pro-B Natriuret Pep 2970 pg/mL Total Protein (6.3-8.2) g/dL Albumin (3.5-5.0) g/dL Urine Color Urine Appearance (Clear) Urine pH (5.0-8.0) Ur Specific [place] (1.001-1.035) Urine Protein (Negative) Urine Glucose (UA) (Negative) Urine Ketones (Negative) Urine Blood (Negative) Urine Nitrite (Negative) Urine Bilirubin (Negative) Urine Urobilinogen (<2.0) mg/dL Ur Leukocyte Esterase (Negative) Stool Occult Blood (Negative) Coronavirus (PCR) Not Detected (Not Detectd) Influenza Type A RNA (Not Detectd) Influenza Type B (PCR) (Not Detectd) 10/20/21 10/20/21 Range/Units 05:55 05:55 WBC 5.36 (3.8-10.6) k/uL RBC 3.53 L (4.30-5.90) m/uL Hgb 10.1 L (13.0-17.5) gm/dL Hct 33.3 L (39.0-53.0) % MCV 94.3 (80.0-100.0) fL MCH 28.6 (25.0-35.0) pg MCHC 30.3 L (31.0-37.0) g/dL RDW 13.7 (11.5-15.5) % Plt Count 116 L (150-450) k/uL MPV 10.9 Immature Gran % (Auto) 0.6 % Absolute Nucleated RBC 0 (0.00-0.00) X 10*3/uL Neutrophils % 60.9 % Lymphocytes % 17.4 % Monocytes % 12.7 % Eosinophils % 7.3 % Basophils % 1.1 % Immature Gran # 0.03 (0.00-0.04) X 10*3/uL Neutrophils # 3.27 (1.3-7.7) k/uL Lymphocytes # 0.93 (1.0-4.8) k/uL Monocytes # 0.68 (0-1.0) k/uL Eosinophils # 0.39 H (0-0.7) k/uL Basophils # 0.06 (0-0.2) k/uL NRBC/100 WBC Diff 0 (0.0-0.0) /100 WBCS Manual Slide Review Hypochromasia Poikilocytosis (manual PT (9.0-12.0) sec INR (<1.2) APTT (22.0-30.0) sec Sodium 136 (137-145) mmol/L Potassium 4.1 (3.5-5.1) mmol/L Chloride 104 (98-107) mmol/L Carbon Dioxide 22.0 (22-30) mmol/L Anion Gap 9.90 L mmol/L BUN 9.8 (9-20) mg/dL Creatinine 0.9 (0.66-1.25) mg/dL Est GFR (CKD-EPI)AfAm 96.3 (>60 ml/min/1.73 sqM) Est GFR (CKD-EPI)NonAf 83.1 (>60 ml/min/1.73 sqM) BUN/Creatinine Ratio 11.15 L (12.00-20.00) Ratio Glucose 86 (74-99) mg/dL Plasma Lactic Acid Gideon (0.7-2.0) mmol/L Calcium 8.0 L (8.4-10.2) mg/dL Magnesium (1.6-2.3) mg/dL Total Bilirubin (0.2-1.3) mg/dL AST (17-59) U/L ALT (4-49) U/L Alkaline Phosphatase (38-126) U/L Troponin I (0.000-0.034) ng/mL NT-Pro-B Natriuret Pep pg/mL Total Protein (6.3-8.2) g/dL Albumin (3.5-5.0) g/dL Urine Color Urine Appearance (Clear) Urine pH (5.0-8.0) Ur Specific [place] (1.001-1.035) Urine Protein (Negative) Urine Glucose (UA) (Negative) Urine Ketones (Negative) Urine Blood (Negative) Urine Nitrite (Negative) Urine Bilirubin (Negative) Urine Urobilinogen (<2.0) mg/dL Ur Leukocyte Esterase (Negative) Stool Occult Blood (Negative) Coronavirus (PCR) (Not Detectd) Influenza Type A RNA (Not Detectd) Influenza Type B (PCR) (Not Detectd) - EKG Data EKG Comments: EKG obtained at 1139 shows normal sinus rhythm with right bundle branch block and left anterior fascicular block. Ventricular rate 77, AR interval 198, QRS duration 170, QT/QTc 432/488. Interpretation is abnormal ECG. (Gosia Salas) - Radiology Data Two-view chest x-ray was obtained. Report was reviewed in its entirety. Impression per Dr. Tafoya as cardiomegaly with interstitial opacities and possible trace effusions. Correlate for CHF with pulmonary vascular congestion. Possible background COPD. (Gosia Salas) Disposition Decision Date: 10/19/21 Decision Time: 18:57 <Gosia Salas - Last Filed: 10/19/21 21:53> <Natalia Álvarez - Last Filed: 10/23/21 23:38> Clinical Impression: Weakness, CHF (congestive heart failure), Diarrhea after vaccination Disposition: ADMITTED IP TO THIS HOSP Condition: Serious
[2021-10-19 12:31] LABS: INR 1.3 (<1.2); Partial Thromboplastin Time 30.5 sec (22.0-30.0); Prothrombin Time 12.9 sec (9.0-12.0)
--- NOTE | 2021-10-19 12:34 | XR ---
EXAMINATION TYPE: XR chest 2V DATE OF EXAM: 10/19/2021 COMPARISON: 10/13/2021 HISTORY: 76-year-old male with weakness TECHNIQUE: AP and lateral views FINDINGS: Median sternotomy wires are present. Heart is mildly enlarged. Mild hyperinflation. Diffuse interstit ial densities and possible trace effusions. Loss of the subacromial space of the left shoulder compat ible with chronic full-thickness rotator cuff tear. IMPRESSION: Cardiomegaly with interstitial opacities and possible trace effusions. Correlate for CHF with pulmona ry vascular congestion. Possible background COPD.
[2021-10-19] MEDS ORDERED: ACETAMINOPHEN TAB 325 MG TAB PO STA (12:48)
[2021-10-19 12:56] LABS: ALT 7 U/L (4-49); African American GFR (CKD) >90 (>60 ml/min/1.73 sqM); Albumin 2.9 g/dL (3.5-5.0); Anion Gap 7 mmol/L; Blood Urea Nitrogen 9 mg/dL (9-20); Calcium 7.4 mg/dL (8.4-10.2); Carbon Dioxide 21 mmol/L (22-30); Chloride 108 mmol/L (98-107); Glucose 101 mg/dL (74-99); Non-African American GFR(CKD) 87 (>60 ml/min/1.73 sqM); Sodium 136 mmol/L (137-145); Total Bilirubin 0.8 mg/dL (0.2-1.3); Total Protein 6.3 g/dL (6.3-8.2)
[2021-10-19 13:08] LABS: Potassium 4.5 mmol/L (3.5-5.1)
[2021-10-19 13:09] LABS: AST 21 U/L (17-59); Alkaline Phosphatase 57 U/L (38-126); Magnesium 1.3 mg/dL (1.6-2.3)
[2021-10-19 13:20] LABS: Basophils % (A) 1 %; Eosinophils # (A) 0.1 k/uL (0-0.7); Eosinophils % (A) 2 %; HCT 26.1 % (39.0-53.0); Hypochromasia Moderate; Lymphocytes # (A) 0.4 k/uL (1.0-4.8); Lymphocytes % (A) 9 %; MCH 29.6 pg (25.0-35.0); MCHC 31.1 g/dL (31.0-37.0); MCV 95.2 fL (80.0-100.0); Monocytes # (A) 0.3 k/uL (0-1.0); Monocytes % (A) 7 %; Neutrophils # (A) 3.8 k/uL (1.3-7.7); Neutrophils % (A) 81 %; RBC 2.74 m/uL (4.30-5.90); RDW 13.7 % (11.5-15.5); WBC 4.7 k/uL (3.8-10.6)
[2021-10-19 13:26] LABS: HGB 8.1 gm/dL (13.0-17.5)
[2021-10-19 13:48] LABS: Poikilocytosis (M) Present
[2021-10-19 13:49] LABS: Platelet Count 99 k/uL (150-450)
[2021-10-19] MEDS ORDERED: SODIUM CHLORIDE 0.9% 1,000 ML IV STA (15:44)
[2021-10-19 15:56] LABS: Appearance,Urine Clear (Clear); Bilirubin,Urine Negative (Negative); Blood,Urine Negative (Negative); Color,Urine Yellow; Glucose,Urine (UA) Negative (Negative); Ketones,Urine Negative (Negative); Leukocyte Esterase,Urine Negative (Negative); Nitrite,Urine Negative (Negative); PH, Urine 5.5 (5.0-8.0); Protein,Urine Trace (Negative); Specific Gravity,Urine 1.014 (1.001-1.035); Urobilinogen,Urine <2.0 mg/dL (<2.0)
[2021-10-19] MEDS: MAGNESIUM SULFATE-D5W PMX 1 GM in DEXTROSE/WATER 1 100ML.BAG IVPB SCH ×2 (16:45→17:47)
[2021-10-19 18:24] LABS: Basophils % (A) 1 %; Eosinophils # (A) 0.2 k/uL (0-0.7); Eosinophils % (A) 3 %; HCT 36.4 % (39.0-53.0); Hypochromasia Slight; Lymphocytes # (A) 0.7 k/uL (1.0-4.8); Lymphocytes % (A) 14 %; MCH 29.8 pg (25.0-35.0); MCHC 31.8 g/dL (31.0-37.0); Mean Platelet Volume 7.9; Monocytes # (A) 0.5 k/uL (0-1.0); Monocytes % (A) 9 %; Neutrophils # (A) 3.6 k/uL (1.3-7.7); Neutrophils % (A) 71 %; Platelet Count 116 k/uL (150-450); RBC 3.87 m/uL (4.30-5.90); RDW 14.1 % (11.5-15.5)
[2021-10-19 18:25] LABS: HGB 11.6 gm/dL (13.0-17.5)
[2021-10-19] MEDS ORDERED: NALOXONE 0.4 MG/ML 1 ML VIAL IV PRN (18:53)
[2021-10-19] MEDS: SYMBICORT 80-4.5 MCG INHALER INHALATION SCH (20:43)
[2021-10-19] MEDS: metFORMIN 500 MG TAB PO SCH (21:17)
[2021-10-19] MEDS: APIXABAN 5 MG TAB PO SCH (21:18)
[2021-10-19] MEDS: ATORVASTATIN 40 MG TAB PO SCH (21:18)
[2021-10-19] MEDS: FINASTERIDE 5 MG TAB PO SCH (22:37)
[2021-10-20] MEDS ORDERED: GABAPENTIN 400 MG CAP PO SCH (01:15)
[2021-10-20 07:24] VITALS: RESP 16
[2021-10-20] MEDS: SYMBICORT 80-4.5 MCG INHALER INHALATION SCH ×2 (07:58→19:19)
[2021-10-20] MEDS: metFORMIN 500 MG TAB PO SCH ×2 (08:39→21:56)
[2021-10-20] MEDS: APIXABAN 5 MG TAB PO SCH ×2 (08:39→21:56)
[2021-10-20] MEDS: allopurinoL 300 MG TAB PO SCH (08:40)
[2021-10-20] MEDS: PANTOPRAZOLE 40 MG TABLET PO SCH (08:40)
[2021-10-20] MEDS: carvediloL 6.25 MG TAB PO SCH ×2 (09:18→21:54)
[2021-10-20 09:27] LABS: Basophils # (A) 0.06 X 10*3/uL (0.00-0.10); Basophils % (A) 1.1 %; Eosinophils # (A) 0.39 X 10*3/uL (0.04-0.35); Eosinophils % (A) 7.3 %; HCT 33.3 % (39.6-50.0); HGB 10.1 g/dL (13.0-17.0); Lymphocytes # (A) 0.93 X 10*3/uL (0.90-5.00); Lymphocytes % (A) 17.4 %; MCH 28.6 pg (27.0-32.0); MCHC 30.3 g/dL (32.0-37.0); MCV 94.3 fL (80.0-97.0); Mean Platelet Volume 10.9 fL (9.5-12.2); Monocytes # (A) 0.68 X 10*3/uL (0.20-1.00); Monocytes % (A) 12.7 %; Neutrophils # (A) 3.27 X 10*3/uL (1.80-7.70); Neutrophils % (A) 60.9 %; Platelet Count 116 X 10*3/uL (140-440); RBC 3.53 X 10*6/uL (4.40-5.60); RDW 13.7 % (11.5-14.5); WBC 5.36 X 10*3/uL (4.50-10.00)
[2021-10-20 10:16] LABS: African American GFR (CKD) 96.3 (60.0-200.0); Anion Gap 9.9 mmol/L (10.00-18.00); BUN/Creat Ratio 11.15 Ratio (12.00-20.00); Blood Urea Nitrogen 9.8 mg/dL (9.0-27.0); Non-African American GFR(CKD) 83.1 (60.0-200.0); Potassium 4.1 mmol/L (3.5-5.5)
--- NOTE | 2021-10-20 10:43 | P.HPIM ---
History of Present Illness H&P Date: 10/20/21 Patrick Banuelos, is a 76 year old male who presented to [facility] emergency room with a chief complaint of severe weakness, patient stated that he had left total knee replacement and subsequently had an infection in the left knee, prosthesis was removed and he had an antibiotic spacer placed in June, he received 10 weeks of IV antibiotics, he stated that he has been sleeping in a chair since then as he has not been able to get in and out of bed. 2 days ago patient received COVID-19 vaccination booster and influenza vaccine at the same time subsequently he had severe weakness he was unable to get out of his chair and stand up and his family called EMS and he was brought into emergency room. He was evaluated in the emergency room vital examination on presentation revea led a temperature of 102.1 pulse 79 respiration 16 blood pressure 105/71 pulse ox 96% on room air subsequence vital exam reveals a temperature of 98.2 pulse 71 respiration 18 blood pressure 91/56 pulse ox 93% on room air Laboratory data revealed a white blood count of 4.7 hemoglobin 8.1 platelet cou nt 99 sodium 136 potassium 4.5 chloride 108 CO2 21 BUN 9 creatinine 0.78, Quintanilla virus PCR was negative influenza A and B PCR were negative Testing in the emergency room revealed chest x-ray done in the emergency room revealed evidence of cardiomegaly with interstitial opacities and possible trace effusions correlate for CHF with pulmonary vascular congestion. EKG done in the emergency room revealed normal sinus rhythm with right bundle branch block and left anterior fascicular block. Patient was admitted to medical floor for further evaluation and treatment Past Medical History Past Medical History: Atrial Fibrillation, Asthma, Coronary Artery Disease (CAD), COPD, Diabetes Mellitus, Hypertension, Myocardial Infarction ([place]), Pneumonia Additional Past Medical History / Comment(s): left knee cap broken, pancreatitis, /gallstones Last Myocardial Infarction Date:: 2017 History of Any Multi-Drug Resistant Organisms: None Reported Past Surgical History: Cholecystectomy, Coronary Bypass/CABG, Heart Catheterization With Stent, Hernia Repair, Orthopedic Surgery Additional Past Surgical History / Comment(s): lt knee replacement(total of 3 sx), colonoscopy, Left knee cap removal with antibiotic spacers placed, Past Anesthesia/Blood Transfusion Reactions: No Reported Reaction Date of Last Stent Placement:: 10/2015 Past Psychological History: No Psychological Hx Reported Smoking Status: Former smoker Past Alcohol Use History: Occasional Past Drug Use History: None Reported - Past Family History Father Family Medical History: Diabetes Mellitus Mother Family Medical History: CVA/TIA, Hypertension Medications and Allergies Home Medications Medication Instructions Recorded Confirmed Type Allopurinol [Zyloprim] 300 mg PO DAILY 08/07/17 10/19/21 History Albuterol Sulfate [Proventil Hfa] 1 puff INHALATION RT-Q4H PRN 10/15/17 10/19/21 History Gabapentin 1,200 mg PO TID 10/02/18 10/19/21 History Levothyroxine Sodium [Synthroid] 112 mcg PO DAILY 10/02/18 10/19/21 History Levothyroxine Sodium [Synthroid] 125 mcg PO DAILY 10/02/18 10/19/21 History Nitroglycerin Sl Tabs [Nitrostat] 0.4 mg SL Q5M PRN 10/02/18 10/19/21 History diazePAM [Valium] 5 mg PO BID PRN 10/02/18 10/19/21 History Apixaban [Eliquis] 5 mg PO BID 11/07/19 10/19/21 History Finasteride [Proscar] 5 mg PO HS 03/17/21 10/19/21 History Magnesium Oxide [Mag-Ox] 500 mg PO HS 03/17/21 10/19/21 History Meclizine [Antivert] 25 mg PO BID PRN 03/17/21 10/19/21 History Omeprazole 20 mg PO DAILY 03/17/21 10/19/21 History carvediloL [Coreg] 6.25 mg PO BID-W/MEALS 03/17/21 10/19/21 History metFORMIN HCL [Glucophage] 1,000 mg PO BID 03/17/21 10/19/21 History Atorvastatin [Lipitor] 40 mg PO HS 10/19/21 10/19/21 History Fluticasone Propion/Salmeterol 1 puff INHALATION RT-BID 10/19/21 10/19/21 History [Fluticasone-Salmeterol 100-50] HYDROcodone/APAP 10-325MG [[place] 1 tab PO Q4HR PRN 10/19/21 10/19/21 History 10-325] Mirabegron [Myrbetriq] 50 mg PO DAILY PRN 10/19/21 10/19/21 History Allergies Allergy/AdvReac Type Severity Reaction Status Date / Time cephalexin [From Keflex] Allergy Unknown Verified 10/19/21 11:55 clopidogrel [From Plavix] Allergy Rash/Hives Verified 10/19/21 11:55 codeine Allergy Rash/Nausea Verified 10/19/21 11:55 & Vomiting Iodine and Iodide Containing Allergy Rash/Hives Verified 10/19/21 11:55 Produc levofloxacin [From Levaquin] Allergy urticaria/r Verified 10/19/21 11:55 belle shellfish derived [Shellfish] Allergy urticaria/r Verified 10/19/21 11:55 belle lisinopril AdvReac Angiodema Verified 10/19/21 11:55 of tongue oxycodone AdvReac Hallucinati Verified 10/19/21 11:55 ons solifenacin AdvReac Nausea & Verified 10/19/21 11:55 Vomiting Physical Exam Vitals: Vital Signs Temp Pulse Pulse Resp BP BP Pulse Ox 10/20/21 07:00 98.9 F 67 16 106/57 91 L 10/20/21 01:57 99.7 F H 78 18 145/69 92 L 10/20/21 01:20 75 17 10/19/21 20:29 98.3 F 64 17 96/64 96 10/19/21 20:00 98.1 F 75 17 100/54 94 L 10/19/21 16:09 98.0 F 93/56 10/19/21 15:39 67 16 88/56 94 L 10/19/21 14:18 98.2 F 71 18 91/56 93 L 10/19/21 11:22 102.1 F H 79 16 105/71 96 Intake and Output 10/19/21 10/20/21 10/20/21 22:59 06:59 14:59 Intake Total 250 250 Balance 250 250 Intake: Oral 250 250 Other: # Voids 2 2 Weight 90.718 kg In general patient is alert and oriented x 3 in no distress HEENT head normocephalic and atraumatic Neck is supple no JVD no goiter no lymphadenopathy no carotid bruit Chest examination is clear to auscultation no crackles no wheezing Cardiac exam reveals regular heart sounds S1 and S2 no gallops no murmurs Abdomen is soft nontender no organomegaly with normal bowel sounds Extremity exam reveals no edema no cyanosis or clubbing, there is swelling and purple discoloration around the left knee. Neurological examination reveals no gross focal deficits Results CBC & Chem 7: 10/20/21 05:55 10/20/21 05:55 Labs: Abnormal Lab Results - Last 24 Hours (Table) 10/19/21 10/19/21 10/19/21 Range/Units 12:03 12:03 12:03 RBC 2.74 L (4.30-5.90) m/uL Hgb 8.1 L D (13.0-17.5) gm/dL Hct 26.1 L (39.0-53.0) % MCHC (32.0-37.0) g/dL Plt Count 99 L (150-450) k/uL Lymphocytes # 0.4 L (1.0-4.8) k/uL Eosinophils # (0.04-0.35) X 10*3/uL PT 12.9 H (9.0-12.0) sec INR 1.3 H (<1.2) APTT 30.5 H (22.0-30.0) sec Sodium (137-145) mmol/L Chloride (98-107) mmol/L Carbon Dioxide (22-30) mmol/L Anion Gap (10.00-18.00) mmol/L BUN/Creatinine Ratio (12.00-20.00) Ratio Glucose (74-99) mg/dL Calcium (8.4-10.2) mg/dL Magnesium (1.6-2.3) mg/dL Albumin (3.5-5.0) g/dL Urine Protein Trace H (Negative) 10/19/21 10/19/21 10/20/21 Range/Units 12:03 17:53 05:55 RBC 3.87 L 3.53 L (4.30-5.90) m/uL Hgb 11.6 L D 10.1 L (13.0-17.5) gm/dL Hct 36.4 L 33.3 L (39.0-53.0) % MCHC 30.3 L (32.0-37.0) g/dL Plt Count 116 L 116 L (150-450) k/uL Lymphocytes # 0.7 L (1.0-4.8) k/uL Eosinophils # 0.39 H (0.04-0.35) X 10*3/uL PT (9.0-12.0) sec INR (<1.2) APTT (22.0-30.0) sec Sodium 136 L (137-145) mmol/L Chloride 108 H (98-107) mmol/L Carbon Dioxide 21 L (22-30) mmol/L Anion Gap (10.00-18.00) mmol/L BUN/Creatinine Ratio (12.00-20.00) Ratio Glucose 101 H (74-99) mg/dL Calcium 7.4 L (8.4-10.2) mg/dL Magnesium 1.3 L (1.6-2.3) mg/dL Albumin 2.9 L (3.5-5.0) g/dL Urine Protein (Negative) 10/20/21 Range/Units 05:55 RBC (4.30-5.90) m/uL Hgb (13.0-17.5) gm/dL Hct (39.0-53.0) % MCHC (32.0-37.0) g/dL Plt Count (150-450) k/uL Lymphocytes # (1.0-4.8) k/uL Eosinophils # (0.04-0.35) X 10*3/uL PT (9.0-12.0) sec INR (<1.2) APTT (22.0-30.0) sec Sodium (137-145) mmol/L Chloride (98-107) mmol/L Carbon Dioxide (22-30) mmol/L Anion Gap 9.90 L (10.00-18.00) mmol/L BUN/Creatinine Ratio 11.15 L (12.00-20.00) Ratio Glucose (74-99) mg/dL Calcium 8.0 L (8.4-10.2) mg/dL Magnesium (1.6-2.3) mg/dL Albumin (3.5-5.0) g/dL Urine Protein (Negative) Assessment and Plan Plan: 1. Severe weakness with inability to stand and walk after receiving COVID-19 booster and influenza vaccine 2. Diarrhea poor oral intake and mild dehydration patient received IV fluid in the emergency room 3. Underlying history of hypertension 4. Underlying history of hyperlipidemia 5. Underlying history of gout 6. Underlying history of peripheral neuropathy 7. Underlying history of COPD 8. Underlying history of diabetes mellitus type 2 9. Underlying history of paroxysmal atrial fibrillation maintained Eliquis 10 History of acute ischemic stroke in May 2021 patient received TPA with complete resolution of symptoms 11. Underlying history of hypothyroidism 12. Underlying history of left total knee arthroplasty, with subsequent infection and removal of hardware and placement of antibiotic spacer. Patient received a total of 10 weeks of IV antibiotic and is currently awaiting placement of a new knee prosthesis. At this time patient is admitted to medical floor He received IV fluids in the emergency room Chest x-ray reveals pulmonary congestion and possible congestive heart failure BUN and creatinine are normal will hold IV fluid at this time Home medications reviewed and reordered Will resume diet Will check echo cardiogram Consult physical therapy and occupational therapy Recheck labs and follow-up in a.m.
[2021-10-20] MEDS ORDERED: MECLIZINE 25 MG TAB PO PRN (10:44)
[2021-10-20] MEDS ORDERED: HYDROcodone/APAP 10-325MG 1 EACH TAB PO PRN (10:44)
[2021-10-20] MEDS ORDERED: diazePAM 5 MG TAB PO PRN (10:44)
[2021-10-20] MEDS ORDERED: ALBUTEROL NEBULIZED 2.5 MG/3 ML INHALATION PRN (10:44)
[2021-10-20] MEDS ORDERED: NITROGLYCERIN SL TABS 0.4 MG TAB SUBLINGUAL PRN (10:44)
[2021-10-20] MEDS: LEVOTHYROXINE 112 MCG TAB PO SCH (12:37)
[2021-10-20] MEDS: LEVOTHYROXINE 125 MCG TAB PO SCH (12:38)
--- NOTE | 2021-10-20 12:46 | ECHOF ---
Referral Reason:chf exacerbation MEASUREMENTS -------- HEIGHT: 180.3 cm WEIGHT: 90.7 kg BP: RVIDd: 2.9 cm (< 3.3) IVSd: 1.0 cm (0.6 - 1.1) LVIDd: 4.5 cm (3.9 - 5.3) LVPWd: 1.1 cm (0.6 - 1.1) IVSs: 1.4 cm LVIDs: 3.8 cm LVPWs: 1.4 cm Ao Diam: 3.4 cm (2.0 - 3.7) AV Cusp: 1.0 cm (1.5 - 2.6) LA Diam: 4.3 cm (2.7 - 3.8) MV EXCURSION: 17.701 mm (> 18.000) MV EF SLOPE: 83 mm/s (70 - 150) EPSS: 1.3 cm MV E Shamir: 0.92 m/s MV DecT: 225 ms MV A Shamir: 0.82 m/s MV E/A Ratio: 1.13 AV maxP.96 mmHg AV meanP.15 mmHg RAP: 5.00 mmHg RVSP: 42.57 mmHg FINDINGS -------- This was a technically difficult study with suboptimal views. The left ventricular size is normal. Left ventricular wall thickness is normal. Overall left vent ricular systolic function is mild-moderately impaired with, an EF between 40 - 45 %. There is parad oxical/dysynergic septal motion consistent with post-operative status. Apical anterior LV wall marc on is hypokinetic. Anterseptal Hypokinesis The right ventricle is normal in size. The left atrium is mildly dilated. The right atrial size is normal. Lumason used Unable to visualize the septum. Aortic valve is trileaflet and is mildly thickened. There is mild aortic stenosis present. Peak/m raisa gradient across the Aortic Valve is 25.96mmHg / 15.15mmHg. The mitral valve is normal. Mild mitral regurgitation is present. The tricuspid valve appears structurally normal. Moderate tricuspid regurgitation present. There is mild pulmonary hypertension. The right ventricular systolic pressure, as measured by Doppler, is 42.57mmHg. There is no pulmonic regurgitation present. The aortic root size is normal. IVC Not well visulized. There is no pericardial effusion. CONCLUSIONS -------- 1. The left ventricular size is normal. 2. Left ventricular wall thickness is normal. 3. Overall left ventricular systolic function is mild-moderately impaired with, an EF between 40 - 45 %. 4. There is paradoxical/dysynergic septal motion consistent with post-operative status. 5. Apical anterior LV wall motion is hypokinetic. 6. Anterseptal Hypokinesis 7. The left atrium is mildly dilated. 8. Aortic valve is trileaflet and is mildly thickened. 9. There is mild aortic stenosis present. 10. Peak/mean gradient across the Aortic Valve is 25.96mmHg / 15.15mmHg. 11. Mild mitral regurgitation is present. 12. Moderate tricuspid regurgitation present. 13. There is mild pulmonary hypertension. 14. The right ventricular systolic pressure, as measured by Doppler, is 42.57mmHg. 15. There is no pericardial effusion. DRY CHAIN WORKER: Radha Cool RDCS
[2021-10-20] MEDS: GABAPENTIN 400 MG CAP PO SCH ×3 (15:42→21:56)
[2021-10-20] MEDS ORDERED: MAGNESIUM OXIDE 400 MG TAB PO SCH (21:00)
[2021-10-20] MEDS: FINASTERIDE 5 MG TAB PO SCH (21:56)
[2021-10-20] MEDS: ATORVASTATIN 40 MG TAB PO SCH (21:56)
[2021-10-21 03:15] VITALS: TEMP 98.3
[2021-10-21] MEDS: LEVOTHYROXINE 112 MCG TAB PO SCH (05:48)
[2021-10-21] MEDS: LEVOTHYROXINE 125 MCG TAB PO SCH (05:48)
[2021-10-21] MEDS: SYMBICORT 80-4.5 MCG INHALER INHALATION SCH (07:46)
[2021-10-21 08:19] VITALS: BP 127/73; PULSE 67
[2021-10-21] MEDS: APIXABAN 5 MG TAB PO SCH (08:27)
[2021-10-21] MEDS: PANTOPRAZOLE 40 MG TABLET PO SCH (08:27)
[2021-10-21] MEDS: allopurinoL 300 MG TAB PO SCH (08:27)
[2021-10-21] MEDS: metFORMIN 500 MG TAB PO SCH (08:27)
[2021-10-21 09:06] LABS: Basophils # (A) 0.08 X 10*3/uL (0.00-0.10); Basophils % (A) 1.2 %; Eosinophils # (A) 0.84 X 10*3/uL (0.04-0.35); Eosinophils % (A) 12.6 %; HCT 35.8 % (39.6-50.0); HGB 10.9 g/dL (13.0-17.0); Lymphocytes # (A) 1.14 X 10*3/uL (0.90-5.00); Lymphocytes % (A) 17.1 %; MCH 28.7 pg (27.0-32.0); MCHC 30.4 g/dL (32.0-37.0); MCV 94.2 fL (80.0-97.0); Mean Platelet Volume 10.6 fL (9.5-12.2); Monocytes # (A) 0.85 X 10*3/uL (0.20-1.00); Monocytes % (A) 12.7 %; Neutrophils # (A) 3.74 X 10*3/uL (1.80-7.70); Neutrophils % (A) 56.1 %; Platelet Count 121 X 10*3/uL (140-440); RDW 13.5 % (11.5-14.5); WBC 6.67 X 10*3/uL (4.50-10.00)
[2021-10-21 09:30] LABS: African American GFR (CKD) 95.1 (60.0-200.0); Albumin 2.9 g/dL (3.8-4.9); Albumin/Globulin Ratio 1.07 (1.60-3.17); Anion Gap 10.8 mmol/L (10.00-18.00); BUN/Creat Ratio 11.33 Ratio (12.00-20.00); Blood Urea Nitrogen 10.2 mg/dL (9.0-27.0); Calcium 8.3 mg/dL (8.7-10.3); Carbon Dioxide 21.2 mmol/L (20.0-27.5); Globulin 2.7 g/dL (1.6-3.3); Non-African American GFR(CKD) 82.1 (60.0-200.0); Total Bilirubin 0.5 mg/dL (0.30-1.20); Total Protein 5.6 g/dL (6.2-8.2)
[2021-10-21] MEDS ORDERED: FUROSEMIDE 20 MG TAB PO SCH (10:15)
[2021-10-21] MEDS: carvediloL 6.25 MG TAB PO SCH (10:19)
--- NOTE | 2021-10-21 11:24 | CONS ---
CONSULTATION This is a 76-year-old gentleman with a known history of paroxysmal atrial fibrillation, hypertension, type 2 diabetes, hyperlipidemia, CAD with a prior bypass surgery. He came into the hospital mainly after having taken a flu vaccine. He felt very exhausted, tired, and this was his main reason according to him for coming to the hospital. He then, after coming in, complained that he felt exhausted and had some sharp pain on the left side of his chest and also some shortness of breath. However, his symptoms have resolved. He feels well. He wishes to go home. His ejection fraction is in the 40-45 percent range and echo yesterday revealed similar findings. Clinically there is no evidence of any heart failure. He is resting comfortably without chest pain, shortness of breath, or palpitations. Blood sugar control is fairly decent. PAST MEDICAL HISTORY: 1. CAD with prior bypass surgery. 2. History of percutaneous coronary intervention, details unavailable. 3. Paroxysmal atrial fib. 4. Hypertension. 5. Hyperlipidemia. 6. Type 2 diabetes mellitus. PAST SURGICAL HISTORY: The patient is status post some hernia repair and orthopedic surgery as well. MEDICATIONS: Medications at home include Eliquis 5 mg b.i.d., Proscar 5 mg daily, omeprazole, Coreg 6.25 mg b.i.d., metformin 1000 mg b.i.d., atorvastatin 40 mg daily. He also takes some pain medications. ALLERGIES: HE IS ALLERGIC TO IODINE, LISINOPRIL, AND ALSO PLAVIX AND KEFLEX. DETAILS ARE UNCLEAR. I AM NOT SURE WHAT KIND OF ALLERGY HE HAS TO PLAVIX. EXAMINATION: His blood pressure is 118/70, pulse rate is 68 per minute, regular. HEENT unremarkable. Fundus was not examined by me. NECK is supple. There is no JVD. I do not hear a carotid bruit. HEART exam reveals S1, S2 heard normally. There is a short systolic murmur at the base. Second heart sound is preserved, LUNGS reveal decent air entry. ABDOMEN is soft, nontender. Lower extremities reveal normal pulses. No edema. CENTRAL NERVOUS SYSTEM is grossly within normal limits. LABORATORY DATA: The lab data reveals that his troponins are unremarkable. BNP is modestly elevated at 2970. Chest x-ray does not suggest any clear-cut evidence of congestive heart failure. There is some underlying COPD probably. EKG revealed a sinus mechanism with a right bundle branch block pattern and repolarization abnormality with left axis. IMPRESSION: 1. No evidence of congestive heart failure. 2. Stable coronary artery disease with prior bypass surgery and PCI, details unavailable. 3. Type 2 diabetes. 4. Hypertension. 5. Hyperlipidemia. RECOMMENDATIONS: I am recommending that patient can be discharged home. We can place him on a small dose of Lasix 20 mg daily and advised to drink plenty of fluids. No intervention necessary. Advised to follow up with Dr. Mac in 2 weeks upon discharge. We will increase activity and see how he does prior to discharge. I discussed my thoughts in detail with the patient. Thank you very much for the consult. MMSHIRLEY / NORAN: [id number] /
[2021-10-21] MEDS ORDERED: DIPHENOX-ATROP 2.5-0.025 MG 1 EACH TAB PO PRN (11:28)
--- NOTE | 2021-10-21 12:34 | P.DS ---
Providers Date of admission: 10/20/21 11:40 Expected date of discharge: 10/21/21 Attending physician: Karoline Mg Consults: 10/20/21 10:44 Consult Physician Routine Consulting Provider: Mayelin Vasquez Consult Reason/Comments: CHF Do you want consulting provider notified?: Yes Primary care physician: Teresa Walter [facility] Course: Diagnoses on discharge: 1. Severe weakness with inability to stand and walk after receiving COVID-19 booster and influenza vaccine 2. Diarrhea poor oral intake and mild dehydration patient received IV fluid in the emergency room 3. Underlying history of hypertension 4. Underlying history of hyperlipidemia 5. Underlying history of gout 6. Underlying history of peripheral neuropathy 7. Underlying history of COPD 8. Underlying history of diabetes mellitus type 2 9. Underlying history of paroxysmal atrial fibrillation maintained Eliquis 10 History of acute ischemic stroke in May 2021 patient received TPA with complete resolution of symptoms 11. Underlying history of hypothyroidism 12. Underlying history of left total knee arthroplasty, with subsequent infection and removal of hardware and placement of antibiotic spacer. Patient received a total of 10 weeks of IV antibiotic and is currently awaiting placement of a new knee prosthesis. Hospital course: Patrick Banuelos, is a 76 year old male who presented to [facility] emergency room with a chief complaint of severe weakness, patient stated that he had left total knee replacement and subsequently had an infection in the left knee, prosthesis was removed and he had an antibiotic spacer placed in June, he received 10 weeks of IV antibiotics, he stated that he has been sleeping in a chair since then as he has not been able to get in and out of bed. 2 days ago patient received COVID-19 vaccination booster and influenza vaccine at the same time subsequently he had severe weakness he was unable to get out of his chair and stand up and his family called EMS and he was brought into emergency room. He was evaluated in the emergency room vital examination on presentation re vealed a temperature of 102.1 pulse 79 respiration 16 blood pressure 105/71 pulse ox 96% on room air subsequence vital exam reveals a temperature of 98.2 pulse 71 respiration 18 blood pressure 91/56 pulse ox 93% on room air Laboratory data revealed a white blood count of 4.7 hemoglobin 8.1 platelet count 99 sodium 136 potassium 4.5 chloride 108 CO2 21 BUN 9 creatinine 0.78, [place] virus PCR was negative influenza A and B PCR were negative Testing in the emergency room revealed chest x-ray done in the emergency room revealed evidence of cardiomegaly with interstitial opacities and possible trace effusions correlate for CHF with pulmonary vascular congestion. EKG done in the emergency room revealed normal sinus rhythm with right bundle branch block and left anterior fascicular block. Patient was admitted to medical floor for further evaluation and treatment On 10/21/2021 patient was seen and examined on the medical floor he is alert and oriented 3 in no apparent distress his weakness has improved significantly, he is still complaining of occasional episode of diarrhea otherwise he denies any complaints there is no fever or chills no headache or dizziness no chest pain no shortness of breath no cough no nausea or vomiting no abdominal pain no blood in the stools no burning with urination no frequency or urgency and no hematuria. He was evaluated by cardiology and was cleared for discharge. He was started on oral Lomotil for diarrhea patient will be discharged home today, follow-up with primary care physician within one week Patient Condition at Discharge: Serious Plan - Discharge Summary Discharge Rx Participant: Yes New Discharge Prescriptions: New Diphenox-Atrop 2.5-0.025 mg [Lomotil] 1 each PO Q6HR PRN tab PRN Reason: Diarrhea Continue Allopurinol [Zyloprim] 300 mg PO DAILY Albuterol Sulfate [Proventil Hfa] 1 puff INHALATION RT-Q4H PRN PRN Reason: Shortness Of Breath diazePAM [Valium] 5 mg PO BID PRN PRN Reason: anxiety/insomnia Levothyroxine Sodium [Synthroid] 125 mcg PO DAILY Gabapentin 1,200 mg PO TID Levothyroxine Sodium [Synthroid] 112 mcg PO DAILY Nitroglycerin Sl Tabs [Nitrostat] 0.4 mg SL Q5M PRN PRN Reason: Chest Pain Apixaban [Eliquis] 5 mg PO BID metFORMIN HCL [Glucophage] 1,000 mg PO BID Magnesium Oxide [Mag-Ox] 500 mg PO HS carvediloL [Coreg] 6.25 mg PO BID-W/MEALS Meclizine [Antivert] 25 mg PO BID PRN PRN Reason: dizziness Mirabegron [Myrbetriq] 50 mg PO DAILY PRN PRN Reason: Constipation Finasteride [Proscar] 5 mg PO HS Omeprazole 20 mg PO DAILY Atorvastatin [Lipitor] 40 mg PO HS Fluticasone Propion/Salmeterol [Fluticasone-Salmeterol 100-50] 1 puff INHALATION RT-BID HYDROcodone/APAP 10-325MG [[place] 10-325] 1 tab PO Q4HR PRN PRN Reason: Pain Discharge Medication List Allopurinol [Zyloprim] 300 mg PO DAILY 08/07/17 [History] Albuterol Sulfate [Proventil Hfa] 1 puff INHALATION RT-Q4H PRN 10/15/17 [History] Gabapentin 1,200 mg PO TID 10/02/18 [History] Levothyroxine Sodium [Synthroid] 112 mcg PO DAILY 10/02/18 [History] Levothyroxine Sodium [Synthroid] 125 mcg PO DAILY 10/02/18 [History] Nitroglycerin Sl Tabs [Nitrostat] 0.4 mg SL Q5M PRN 10/02/18 [History] diazePAM [Valium] 5 mg PO BID PRN 10/02/18 [History] Apixaban [Eliquis] 5 mg PO BID 11/07/19 [History] Finasteride [Proscar] 5 mg PO HS 03/17/21 [History] Magnesium Oxide [Mag-Ox] 500 mg PO HS 03/17/21 [History] Meclizine [Antivert] 25 mg PO BID PRN 03/17/21 [History] Omeprazole 20 mg PO DAILY 03/17/21 [History] carvediloL [Coreg] 6.25 mg PO BID-W/MEALS 03/17/21 [History] metFORMIN HCL [Glucophage] 1,000 mg PO BID 03/17/21 [History] Atorvastatin [Lipitor] 40 mg PO HS 10/19/21 [History] Fluticasone Propion/Salmeterol [Fluticasone-Salmeterol 100-50] 1 puff INHALATION RT-BID 10/19/21 [History] HYDROcodone/APAP 10-325MG [[place] 10-325] 1 tab PO Q4HR PRN 10/19/21 [History] Mirabegron [Myrbetriq] 50 mg PO DAILY PRN 10/19/21 [History] Diphenox-Atrop 2.5-0.025 mg [Lomotil] 1 each PO Q6HR PRN tab 10/21/21 [Rx] Follow up Appointment(s)/Referral(s): Teresa Walter MD [Primary Care Provider] - 1-2 days
== END 2021-10-21 13:09 | disposition home or self-care (01) | DRG 948 ==
LOC: EC 11:19 → 6NMEDSUR 18:53 → OBSVTOIN 10-20 11:40
PROVIDERS: ADMIT Internal Medicine; ATTEND Internal Medicine
DX: R53.1 Weakness (principal); I45.2 Bifascicular block; T50.B95A Adverse effect of other viral vaccines, initial encounter; Y92.9 Unspecified place or not applicable; E03.9 Hypothyroidism, unspecified; E11.9 Type 2 diabetes mellitus without complications; E78.5 Hyperlipidemia, unspecified; E86.0 Dehydration; I11.0 Hypertensive heart disease with heart failure; I25.10 Atherosclerotic heart disease of native coronary artery without angina pectoris; I25.2 Old myocardial infarction; I48.0 Paroxysmal atrial fibrillation; I50.9 Heart failure, unspecified; J44.9 Chronic obstructive pulmonary disease, unspecified; I95.9 Hypotension, unspecified; R09.89 Other specified symptoms and signs involving the circulatory and respiratory systems; M10.9 Gout, unspecified; G62.9 Polyneuropathy, unspecified; R26.2 Difficulty in walking, not elsewhere classified; Z79.01 Long term (current) use of anticoagulants; Z79.84 Long term (current) use of oral hypoglycemic drugs; Z79.890 Hormone replacement therapy; Z79.899 Other long term (current) drug therapy; Z82.3 Family history of stroke; Z96.652 Presence of left artificial knee joint; Z95.1 Presence of aortocoronary bypass graft; Z87.891 Personal history of nicotine dependence; Z86.73 Personal history of transient ischemic attack (TIA), and cerebral infarction without residual deficits; Z83.3 Family history of diabetes mellitus; Z82.49 Family history of ischemic heart disease and other diseases of the circulatory system
CPT/HCPCS: 36415; 71046; 80048; 80053; 81003; 82272; 83605; 83735; 83880; 84484; 85025; 85610; 85730; 87040; 87502; 87635; 93005; 93306; 94640; 96361; 96365; 96366; 99285

== ENCOUNTER 2021-12-24 16:15 | Inpatient (IN) | payer MEDICARE ==
--- NOTE | 2021-12-24 16:41 | ED ---
General Adult HPI - General Chief complaint: Weakness Stated complaint: Weakness Time Seen by Provider: 12/24/21 16:29 Source: patient, EMS, RN notes reviewed Mode of arrival: EMS Limitations: no limitations - History of Present Illness Initial comments: Patient is a pleasant 76-year-old male presenting to the emergency Department with concerns with general weakness. Symptoms have progressed over several days. No isolated area of weakness. Patient denies any dyspnea. No confusion. Patient does have history of similar symptoms twice recently requiring blood transfusion. Patient denies any bleeding. - Related Data Home Medications Medication Instructions Recorded Confirmed Allopurinol [Zyloprim] 300 mg PO DAILY 08/07/17 12/20/21 Albuterol Sulfate [Proventil Hfa] 1 puff INHALATION RT-Q4H PRN 10/15/17 12/20/21 Gabapentin 1,200 mg PO TID 10/02/18 12/20/21 Levothyroxine Sodium [Synthroid] 112 mcg PO DAILY 10/02/18 12/20/21 Levothyroxine Sodium [Synthroid] 125 mcg PO DAILY 10/02/18 12/20/21 Nitroglycerin Sl Tabs [Nitrostat] 0.4 mg SL Q5M PRN 10/02/18 12/20/21 diazePAM [Valium] 5 mg PO BID PRN 10/02/18 12/20/21 Apixaban [Eliquis] 5 mg PO BID 11/07/19 12/20/21 Finasteride [Proscar] 5 mg PO HS 03/17/21 12/20/21 Magnesium Oxide [Mag-Ox] 500 mg PO HS 03/17/21 12/20/21 Meclizine [Antivert] 25 mg PO BID PRN 03/17/21 12/20/21 Omeprazole 20 mg PO DAILY 03/17/21 12/20/21 carvediloL [Coreg] 6.25 mg PO BID-W/MEALS 03/17/21 12/20/21 metFORMIN HCL [Glucophage] 1,000 mg PO BID 03/17/21 12/20/21 Atorvastatin [Lipitor] 40 mg PO HS 10/19/21 12/20/21 Fluticasone Propion/Salmeterol 1 puff INHALATION RT-BID 10/19/21 12/20/21 [Fluticasone-Salmeterol 100-50] HYDROcodone/APAP 10-325MG [[place] 1 tab PO Q4HR PRN 10/19/21 12/20/21 10-325] Mirabegron [Myrbetriq] 50 mg PO DAILY PRN 10/19/21 12/20/21 Previous Rx's Medication Instructions Recorded Diphenox-Atrop 2.5-0.025 mg 1 each PO Q6HR PRN tab 10/21/21 [Lomotil] Allergies Allergy/AdvReac Type Severity Reaction Status Date / Time cephalexin [From Keflex] Allergy Unknown Verified 12/24/21 16:27 clopidogrel [From Plavix] Allergy Rash/Hives Verified 12/24/21 16:27 codeine Allergy Rash/Nausea Verified 12/24/21 16:27 & Vomiting Iodine and Iodide Containing Allergy Rash/Hives Verified 12/24/21 16:27 Produc levofloxacin [From Levaquin] Allergy urticaria/r Verified 12/24/21 16:27 belle shellfish derived [Shellfish] Allergy urticaria/r Verified 12/24/21 16:27 belle lisinopril AdvReac Angiodema Verified 12/24/21 16:27 of tongue oxycodone AdvReac Hallucinati Verified 12/24/21 16:27 ons solifenacin AdvReac Nausea & Verified 12/24/21 16:27 Vomiting Review of Systems ROS Statement: Those systems with pertinent positive or pertinent negative responses have been documented in the HPI. ROS Other: All systems not noted in ROS Statement are negative. Constitutional: Denies: fever Eyes: Denies: eye pain ENT: Denies: ear pain Respiratory: Denies: cough Cardiovascular: Denies: chest pain Endocrine: Reports: fatigue Gastrointestinal: Denies: abdominal pain, hematemesis, melena, hematochezia Genitourinary: Denies: dysuria Musculoskeletal: Denies: back pain Skin: Denies: rash Neurological: Reports: as per HPI. Denies: headache, paresthesias, confusion Past Medical History Past Medical History: Atrial Fibrillation, Asthma, Coronary Artery Disease (CAD), COPD, Diabetes Mellitus, Hypertension, Myocardial Infarction ([place]), Pneumonia Additional Past Medical History / Comment(s): left knee cap broken, pancreatitis, /gallstones Last Myocardial Infarction Date:: 2017 History of Any Multi-Drug Resistant Organisms: None Reported Past Surgical History: Cholecystectomy, Coronary Bypass/CABG, Heart Cathet erization With Stent, Hernia Repair, Orthopedic Surgery Additional Past Surgical History / Comment(s): lt knee replacement(total of 3 sx), colonoscopy, Left knee cap removal with antibiotic spacers placed, Past Anesthesia/Blood Transfusion Reactions: No Reported Reaction Date of Last Stent Placement:: 10/2015 Past Psychological History: No Psychological Hx Reported Smoking Status: Former smoker Past Alcohol Use History: Occasional Past Drug Use History: None Reported - Past Family History Father Family Medical History: Diabetes Mellitus Mother Family Medical History: CVA/TIA, Hypertension General Exam Limitations: no limitations General appearance: alert, in no apparent distress Head exam: Present: normocephalic Eye exam: Present: PERRL, EOMI, scleral icterus ENT exam: Present: normal oropharynx Neck exam: Present: normal inspection Respiratory exam: Present: normal lung sounds bilaterally Cardiovascular Exam: Present: regular rate, normal rhythm GI/Abdominal exam: Present: soft. Absent: tenderness Neurological exam: Present: alert, oriented X3, CN II-XII intact. Absent: motor sensory deficit Psychiatric exam: Present: normal affect, normal mood Skin exam: Present: normal color Course Vital Signs 12/24/21 12/24/21 16:16 17:53 Temperature 97.7 F Pulse Rate 65 62 Respiratory 18 18 Rate Blood Pressure 105/55 106/59 O2 Sat by Pulse 95 96 Oximetry EKG Findings - EKG Comments: EKG Findings:: Sinus rhythm 365. For screening AV block RI 23. QRS 160. QT 41. QTC 42. Left axis. Right bundle branch block. No acute ST change. Medical Decision Making - Medical Decision Making Patient reevaluated and updated. Case discussed with Dr. Mg who will admit Her neck lambing and does request 1 unit packed red cells. GI will be consult with in-service tomorrow. - Lab Data Result diagrams: 12/24/21 16:43 12/24/21 16:43 Lab Results 12/24/21 12/24/21 12/24/21 Range/Units 16:43 16:43 16:43 WBC 6.5 (3.8-10.6) k/uL RBC 1.67 L (4.30-5.90) m/uL Hgb 6.0 L* D (13.0-17.5) gm/dL Hct 19.9 L* (39.0-53.0) % MCV 119.3 H D (80.0-100.0) fL MCH 35.9 H (25.0-35.0) pg MCHC 30.1 L (31.0-37.0) g/dL RDW 18.9 H (11.5-15.5) % Plt Count 192 D (150-450) k/uL MPV 7.6 Neutrophils % 75 % Lymphocytes % 11 % Monocytes % 6 % Eosinophils % 5 % Basophils % 1 % Neutrophils # 4.9 (1.3-7.7) k/uL Lymphocytes # 0.7 L (1.0-4.8) k/uL Monocytes # 0.4 (0-1.0) k/uL Eosinophils # 0.4 (0-0.7) k/uL Basophils # 0.0 (0-0.2) k/uL Hypochromasia Marked Poikilocytosis Slight Anisocytosis Slight Macrocytosis Marked A PT 12.5 H (9.0-12.0) sec INR 1.2 H (<1.2) APTT 29.2 (22.0-30.0) sec Sodium 136 L (137-145) mmol/L Potassium 4.4 (3.5-5.1) mmol/L Chloride 105 (98-107) mmol/L Carbon Dioxide 22 (22-30) mmol/L Anion Gap 9 mmol/L BUN 25 H (9-20) mg/dL Creatinine 1.01 (0.66-1.25) mg/dL Est GFR (CKD-EPI)AfAm 83 (>60 ml/min/1.73 sqM) Est GFR (CKD-EPI)NonAf 72 (>60 ml/min/1.73 sqM) Glucose 143 H (74-99) mg/dL Plasma Lactic Acid Gideon (0.7-2.0) mmol/L Calcium 7.9 L (8.4-10.2) mg/dL Magnesium 1.8 (1.6-2.3) mg/dL Total Bilirubin 3.1 H (0.2-1.3) mg/dL AST 18 (17-59) U/L ALT 7 (4-49) U/L Alkaline Phosphatase 77 (38-126) U/L Troponin I (0.000-0.034) ng/mL Total Protein 6.8 (6.3-8.2) g/dL Albumin 3.1 L (3.5-5.0) g/dL TSH 14.800 H (0.465-4.680) mIU/L Free T4 1.41 (0.78-2.19) ng/dL Free T3 pg/mL 3.0 (2.8-5.3) pg/ml 12/24/21 12/24/21 Range/Units 16:43 16:43 WBC (3.8-10.6) k/uL RBC (4.30-5.90) m/uL Hgb (13.0-17.5) gm/dL Hct (39.0-53.0) % MCV (80.0-100.0) fL MCH (25.0-35.0) pg MCHC (31.0-37.0) g/dL RDW (11.5-15.5) % Plt Count (150-450) k/uL MPV Neutrophils % % Lymphocytes % % Monocytes % % Eosinophils % % Basophils % % Neutrophils # (1.3-7.7) k/uL Lymphocytes # (1.0-4.8) k/uL Monocytes # (0-1.0) k/uL Eosinophils # (0-0.7) k/uL Basophils # (0-0.2) k/uL Hypochromasia Poikilocytosis Anisocytosis Macrocytosis PT (9.0-12.0) sec INR (<1.2) APTT (22.0-30.0) sec Sodium (137-145) mmol/L Potassium (3.5-5.1) mmol/L Chloride (98-107) mmol/L Carbon Dioxide (22-30) mmol/L Anion Gap mmol/L BUN (9-20) mg/dL Creatinine (0.66-1.25) mg/dL Est GFR (CKD-EPI)AfAm (>60 ml/min/1.73 sqM) Est GFR (CKD-EPI)NonAf (>60 ml/min/1.73 sqM) Glucose (74-99) mg/dL Plasma Lactic Acid Gideon 1.5 (0.7-2.0) mmol/L Calcium (8.4-10.2) mg/dL Magnesium (1.6-2.3) mg/dL Total Bilirubin (0.2-1.3) mg/dL AST (17-59) U/L ALT (4-49) U/L Alkaline Phosphatase (38-126) U/L Troponin I <0.012 (0.000-0.034) ng/mL Total Protein (6.3-8.2) g/dL Albumin (3.5-5.0) g/dL TSH (0.465-4.680) mIU/L Free T4 (0.78-2.19) ng/dL Free T3 pg/mL (2.8-5.3) pg/ml - Radiology Data Radiology results: image reviewed (Chest x-ray does show some venous congestion) Disposition Clinical Impression: Anemia Disposition: ADMITTED IP TO THIS HOSP Is patient prescribed a controlled substance at d/c from ED?: No Referrals: Teresa Walter MD [Primary Care Provider] - 1-2 days Decision Time: 18:11
[2021-12-24 17:02] LABS: Albumin 3.1 g/dL (3.5-5.0); Calcium 7.9 mg/dL (8.4-10.2); Magnesium 1.8 mg/dL (1.6-2.3); Potassium 4.4 mmol/L (3.5-5.1); Total Bilirubin 3.1 mg/dL (0.2-1.3); Total Protein 6.8 g/dL (6.3-8.2)
[2021-12-24 17:10] LABS: INR 1.2 (<1.2); Partial Thromboplastin Time 29.2 sec (22.0-30.0); Prothrombin Time 12.5 sec (9.0-12.0)
[2021-12-24 17:19] LABS: T4, Free (Free Thyroxine) 1.41 ng/dL (0.78-2.19)
--- NOTE | 2021-12-24 17:22 | XR ---
EXAMINATION TYPE: XR chest 2V DATE OF EXAM: 12/24/2021 COMPARISON: 10/19/2021 HISTORY: Weakness TECHNIQUE: FINDINGS: Heart is enlarged. There is some mild pulmonary congestion. There are sternal wires. There is no definite pleural effusion. IMPRESSION: Cardiomegaly with increased interstitial markings consistent with pulmonary congestion an d mild heart failure. No change compared to old exam.
[2021-12-24 17:31] LABS: Anisocytosis Slight; Basophils % (A) 1 %; Eosinophils # (A) 0.4 k/uL (0-0.7); Eosinophils % (A) 5 %; Hypochromasia Marked; Lymphocytes # (A) 0.7 k/uL (1.0-4.8); Lymphocytes % (A) 11 %; MCH 35.9 pg (25.0-35.0); MCHC 30.1 g/dL (31.0-37.0); Macrocytosis Marked; Mean Platelet Volume 7.6; Monocytes # (A) 0.4 k/uL (0-1.0); Monocytes % (A) 6 %; Neutrophils # (A) 4.9 k/uL (1.3-7.7); Neutrophils % (A) 75 %; Platelet Count 192 k/uL (150-450); Poikilocytosis Slight; RBC 1.67 m/uL (4.30-5.90); RDW 18.9 % (11.5-15.5); WBC 6.5 k/uL (3.8-10.6)
[2021-12-24 17:44] LABS: HCT 19.9 % (39.0-53.0)
[2021-12-24 17:45] LABS: MCV 119.3 fL (80.0-100.0)
[2021-12-24] MEDS ORDERED: NALOXONE 0.4 MG/ML 1 ML VIAL IV PRN (18:12)
[2021-12-24 19:03] LABS: Appearance,Urine Clear (Clear); Bilirubin,Urine Negative (Negative); Blood,Urine Negative (Negative); Color,Urine Yellow; Glucose,Urine (UA) Negative (Negative); Ketones,Urine Negative (Negative); Leukocyte Esterase,Urine Negative (Negative); Nitrite,Urine Negative (Negative); Protein,Urine Negative (Negative); Specific Gravity,Urine 1.008 (1.001-1.035); Urobilinogen,Urine <2.0 mg/dL (<2.0)
[2021-12-24 19:31] LABS: Glucose,Whole Blood 111 mg/dL (75-99)
[2021-12-24] MEDS: PANTOPRAZOLE 40 MG/10 ML VIAL IV SCH (19:33)
[2021-12-24] MEDS ORDERED: diazePAM 5 MG TAB PO PRN (23:04)
[2021-12-24] MEDS ORDERED: MECLIZINE 25 MG TAB PO PRN (23:04)
[2021-12-24] MEDS: GABAPENTIN 400 MG CAP PO SCH (23:14)
[2021-12-25] MEDS: NITROGLYCERIN SL TABS 0.4 MG TAB SUBLINGUAL PRN ×2 (06:27→06:34)
[2021-12-25 07:09] LABS: ALT 6 U/L (4-49); AST 19 U/L (17-59); African American GFR (CKD) 84 (>60 ml/min/1.73 sqM); Albumin/Globulin Ratio 0.8; Alkaline Phosphatase 77 U/L (38-126); Anion Gap 5 mmol/L; Blood Urea Nitrogen 22 mg/dL (9-20); Calcium 8.1 mg/dL (8.4-10.2); Carbon Dioxide 24 mmol/L (22-30); Chloride 108 mmol/L (98-107); Globulin 3.8 g/dL; Glucose 111 mg/dL (74-99); Non-African American GFR(CKD) 72 (>60 ml/min/1.73 sqM); Potassium 4.4 mmol/L (3.5-5.1); Sodium 137 mmol/L (137-145); Total Bilirubin 3.2 mg/dL (0.2-1.3); Total Protein 6.8 g/dL (6.3-8.2)
[2021-12-25 07:12] LABS: Glucose,Whole Blood 125 mg/dL (75-99)
[2021-12-25] MEDS: SYMBICORT 80-4.5 MCG INHALER INHALATION SCH ×2 (08:01→19:11)
[2021-12-25] MEDS: LEVOTHYROXINE 112 MCG TAB PO SCH (08:49)
[2021-12-25] MEDS: GABAPENTIN 400 MG CAP PO SCH ×3 (08:49→21:20)
[2021-12-25] MEDS: PANTOPRAZOLE 40 MG TABLET PO SCH (08:49)
[2021-12-25] MEDS: LEVOTHYROXINE 125 MCG TAB PO SCH (08:49)
[2021-12-25] MEDS: PANTOPRAZOLE 40 MG/10 ML VIAL IV SCH (08:50)
[2021-12-25] MEDS: allopurinoL 300 MG TAB PO SCH (08:50)
[2021-12-25] MEDS: carvediloL 6.25 MG TAB PO SCH ×2 (08:50→16:51)
[2021-12-25] MEDS ORDERED: APIXABAN 5 MG TAB PO SCH (09:00)
[2021-12-25] MEDS ORDERED: metFORMIN 500 MG TAB PO SCH (09:00)
[2021-12-25 10:25] LABS: Hepatitis A Antibody IgM Nonreactive (Nonreactive); Hepatitis B Surface Antigen Nonreactive (Nonreactive); Hepatitis C IgG Antibody Nonreactive (Nonreactive)
[2021-12-25 12:17] LABS: Basophils # (A) 0.06 X 10*3/uL (0.00-0.10); Basophils % (A) 0.8 %; Eosinophils # (A) 0.41 X 10*3/uL (0.04-0.35); Eosinophils % (A) 5.6 %; HCT 22.9 % (39.6-50.0); HGB 6.6 g/dL (13.0-17.0); Immature Grans, Automated 0.7 %; Lymphocytes # (A) 1.06 X 10*3/uL (0.90-5.00); Lymphocytes % (A) 14.4 %; MCHC 28.8 g/dL (32.0-37.0); Mean Platelet Volume 9.7 fL (9.5-12.2); Monocytes # (A) 0.62 X 10*3/uL (0.20-1.00); Monocytes % (A) 8.4 %; NRBC Per 100 WBC 0 /100 WBCS (0.0-0.0); Neutrophils # (A) 5.18 X 10*3/uL (1.80-7.70); Neutrophils % (A) 70.1 %; Platelet Count 160 X 10*3/uL (140-440); RBC 1.94 X 10*6/uL (4.40-5.60); RDW 24.9 % (11.5-14.5); WBC 7.38 X 10*3/uL (4.50-10.00)
--- NOTE | 2021-12-25 13:16 | US ---
EXAMINATION TYPE: US liver DATE OF EXAM: 12/25/2021 COMPARISON: NONE CLINICAL HISTORY: hyperbilirubinemia. EXAM MEASUREMENTS: Liver Length: 20.5 cm Gallbladder Wall: Surgically absent cm CBD: 0.5 cm Right Kidney: 10.2 x 4.6 x 4.8 cm Pancreas: mostly obscured by overlying bowel gas Liver: enlarged Gallbladder: Surgically absent Evidence for sonographic Strickland's sign: No CBD: wnl Right Kidney: wnl IMPRESSION: 1. Hepatomegaly
[2021-12-25 13:47] LABS: Hepatitis B Core IgM Nonreactive (Nonreactive)
[2021-12-25] MEDS: ALBUTEROL NEBULIZED 2.5 MG/3 ML INHALATION PRN (15:29)
--- NOTE | 2021-12-25 15:57 | P.CONS ---
History of Present Illness - Reason for Consult Consult date: 12/25/21 Anemia Requesting physician: Karoline Mg - Chief Complaint Weakness, fatigue - History of Present Illness This is 76-year-old male with past medical history of atrial fibrillation on [place], asthma, coronary artery disease, COPD, diabetes mellitus, hypertension and history of pneumonia. He also has a history of gallstone pancreatitis status post cholecystectomy. Patient had presented to the emergency department with complaints of weakness and fatigue. He was noted to be anemic with a hemoglobin of 6.0. He was transfused 1 unit of PRBC transfusion. He states h e's been anemic for the last 3 weeks or so. He states he's had 2 prior transfusions. He denies any black stool or blood in his stool. Denies any abdominal pain, epigastric pain, history of peptic ulcer disease or acid reflux. Has had a previous colonoscopy in 2018 in [place] which he states was normal. No previous EGD. His labs WBC 7.3 hemoglobin 6.6 hematocrit 22 platelet count 160,000 INR was 1.2. Patient was also noted to have an elevated bilirubin. Total bilirubin 3.2 AST 19 ALT 6 alkaline phosphatase 77. Patient denies any previous history of liver disease. He denies any history of alcoholism. Hepatitis panel was negative. Review of Systems REVIEW OF SYSTEMS: CARDIOPULMONARY: No chest pain or shortness of breath. Gastrointestinal: No abdominal pain. No nausea or vomiting. No hematemesis, coffee-ground emesis. No rectal bleeding, or melena. GENITOURINARY: No dysuria or hematuria. MUSCULOSKELETAL: Reports normal range of motion., Joint pain. SKIN: No rashes. No jaundice. ENDOCRINE: No chills, fevers. No excessive weight gain or loss. No polydipsia or polyuria. PSYCHIATRIC: Unremarkable. NEUROLOGY: No change in mental status. Denies dizziness, headache. ENT: Vision unremarkable. CONSTITUTIONAL: No recent weight loss. No fever, chills, night sweats. Increased weakness and fatigue. Past Medical History Past Medical History: Atrial Fibrillation, Asthma, Coronary Artery Disease (CAD), COPD, Diabetes Mellitus, Hypertension, Myocardial Infarction ([place]), Pneumonia Additional Past Medical History / Comment(s): left knee cap broken, pancreatitis, /gallstones Last Myocardial Infarction Date:: 2017 History of Any Multi-Drug Resistant Organisms: None Reported Past Surgical History: Cholecystectomy, Coronary Bypass/CABG, Heart Catheterization With Stent, Hernia Repair, Orthopedic Surgery Additional Past Surgical History / Comment(s): lt knee replacement(total of 3 sx), colonoscopy, Left knee cap removal with antibiotic spacers placed, Past Anesthesia/Blood Transfusion Reactions: No Reported Reaction Date of Last Stent Placement:: 10/2015 Past Psychological History: No Psychological Hx Reported Smoking Status: Former smoker Past Alcohol Use History: Occasional Past Drug Use History: None Reported - Past Family History Father Family Medical History: Diabetes Mellitus Mother Family Medical History: CVA/TIA, Hypertension Medications and Allergies Home Medications Medication Instructions Recorded Confirmed Type Allopurinol [Zyloprim] 300 mg PO DAILY 08/07/17 12/24/21 History Albuterol Sulfate [Proventil Hfa] 1 puff INHALATION RT-Q4H PRN 10/15/17 12/24/21 History Gabapentin 1,200 mg PO TID 10/02/18 12/24/21 History Levothyroxine Sodium [Synthroid] 112 mcg PO DAILY 10/02/18 12/24/21 History Levothyroxine Sodium [Synthroid] 125 mcg PO DAILY 10/02/18 12/24/21 History Nitroglycerin Sl Tabs [Nitrostat] 0.4 mg SL Q5M PRN 10/02/18 12/24/21 History diazePAM [Valium] 5 mg PO BID PRN 10/02/18 12/24/21 History Apixaban [Eliquis] 5 mg PO BID 11/07/19 12/24/21 History Finasteride [Proscar] 5 mg PO HS 03/17/21 12/24/21 History Magnesium Oxide [Mag-Ox] 500 mg PO HS 03/17/21 12/24/21 History Meclizine [Antivert] 25 mg PO BID PRN 03/17/21 12/24/21 History Omeprazole 20 mg PO DAILY 03/17/21 12/24/21 History carvediloL [Coreg] 6.25 mg PO BID-W/MEALS 03/17/21 12/24/21 History metFORMIN HCL [Glucophage] 1,000 mg PO BID 03/17/21 12/24/21 History Atorvastatin [Lipitor] 40 mg PO HS 10/19/21 12/24/21 History Fluticasone Propion/Salmeterol 1 puff INHALATION RT-BID 10/19/21 12/24/21 History [Fluticasone-Salmeterol 100-50] Allergies Allergy/AdvReac Type Severity Reaction Status Date / Time cephalexin [From Keflex] Allergy Unknown Verified 12/24/21 18:17 clopidogrel [From Plavix] Allergy Rash/Hives Verified 12/24/21 18:17 codeine Allergy Rash/Nausea Verified 12/24/21 18:17 & Vomiting Iodine and Iodide Containing Allergy Rash/Hives Verified 12/24/21 18:17 Produc levofloxacin [From Levaquin] Allergy urticaria/r Verified 12/24/21 18:17 belle shellfish derived [Shellfish] Allergy urticaria/r Verified 12/24/21 18:17 belle lisinopril AdvReac Angiodema Verified 12/24/21 18:17 of tongue oxycodone AdvReac Hallucinati Verified 12/24/21 18:17 ons solifenacin AdvReac Nausea & Verified 12/24/21 18:17 Vomiting Physical Exam Vitals: Vital Signs Temp Pulse Pulse Resp BP BP BP 12/25/21 11:15 97.4 F L 64 18 110/63 12/25/21 08:45 68 113/62 12/25/21 05:48 98.0 F 64 16 118/64 12/25/21 05:36 98.2 F 72 18 106/67 12/25/21 01:47 98.6 F 70 16 101/48 12/24/21 23:30 97.9 F 12/24/21 23:29 97.9 F 66 16 89/57 12/24/21 23:00 98.1 F 68 16 89/53 12/24/21 22:50 98.0 F 67 16 90/55 12/24/21 20:00 98.4 F 53 L 16 109/65 12/24/21 19:11 65 18 109/93 12/24/21 17:53 62 18 106/59 12/24/21 16:16 97.7 F 65 18 105/55 Pulse Ox 12/25/21 11:15 12/25/21 08:45 93 L 12/25/21 05:48 97 12/25/21 05:36 95 12/25/21 01:47 96 12/24/21 23:30 12/24/21 23:29 95 02/27/22 23:00 96 12/24/21 22:50 95 12/24/21 20:00 95 12/24/21 19:11 100 12/24/21 17:53 96 12/24/21 16:16 95 Intake and Output 12/25/21 12/25/21 12/25/21 06:59 14:59 22:59 Intake Total 1330 Output Total 850 200 Balance 480 -200 Intake: Oral 710 Blood Product 620 Rc As-1 Unit 310 [id number] Output: Urine 850 200 Other: # Voids 1 General appearance: The patient is alert, oriented, appears in no acute distress. HET: Head is normocephalic and atraumatic. Conjunctiva pink. Sclera anicteric. Neck: Supple without lymphadenopathy. Trachea midline. Heart: S1 S2. Regular rate and rhythm. Lungs: Clear to auscultation. Abdomen: Soft, nontender, nondistended with bowel sounds. No guarding or rigidity. Skin: No rashes. No jaundice. Extremities: Normal skin color and turgor. No pedal edema. Neurological: No focal deficits. Alert and oriented x3. Results CBC & Chem 7: 12/25/21 06:11 12/25/21 06:11 Labs: Abnormal Lab Results - Last 24 Hours (Table) 12/24/21 12/24/21 12/24/21 Range/Units 16:43 16:43 16:43 RBC 1.67 L (4.30-5.90) m/uL Hgb 6.0 L* D (13.0-17.5) gm/dL Hct 19.9 L* (39.0-53.0) % MCV 119.3 H D (80.0-100.0) fL MCH 35.9 H (25.0-35.0) pg MCHC 30.1 L (31.0-37.0) g/dL RDW 18.9 H (11.5-15.5) % Immature Gran # (0.00-0.04) X 10*3/uL Lymphocytes # 0.7 L (1.0-4.8) k/uL Eosinophils # (0.04-0.35) X 10*3/uL Macrocytosis Marked A PT 12.5 H (9.0-12.0) sec INR 1.2 H (<1.2) Sodium 136 L (137-145) mmol/L Chloride (98-107) mmol/L BUN 25 H (9-20) mg/dL Glucose 143 H (74-99) mg/dL POC Glucose (mg/dL) (75-99) mg/dL Calcium 7.9 L (8.4-10.2) mg/dL Total Bilirubin 3.1 H (0.2-1.3) mg/dL Albumin 3.1 L (3.5-5.0) g/dL TSH 14.800 H (0.465-4.680) mIU/L Crossmatch 12/24/21 12/24/21 12/25/21 Range/Units 19:29 20:07 06:11 RBC 1.94 L (4.30-5.90) m/uL Hgb 6.6 L* (13.0-17.5) gm/dL Hct 22.9 L (39.0-53.0) % MCV 118.0 H (80.0-100.0) fL MCH 34.0 H (25.0-35.0) pg MCHC 28.8 L (31.0-37.0) g/dL RDW 24.9 H (11.5-15.5) % Immature Gran # 0.05 H (0.00-0.04) X 10*3/uL Lymphocytes # (1.0-4.8) k/uL Eosinophils # 0.41 H (0.04-0.35) X 10*3/uL Macrocytosis PT (9.0-12.0) sec INR (<1.2) Sodium (137-145) mmol/L Chloride (98-107) mmol/L BUN (9-20) mg/dL Glucose (74-99) mg/dL POC Glucose (mg/dL) 111 H (75-99) mg/dL Calcium (8.4-10.2) mg/dL Total Bilirubin (0.2-1.3) mg/dL Albumin (3.5-5.0) g/dL TSH (0.465-4.680) mIU/L Crossmatch See Detail 12/25/21 12/25/21 Range/Units 06:11 07:10 RBC (4.30-5.90) m/uL Hgb (13.0-17.5) gm/dL Hct (39.0-53.0) % MCV (80.0-100.0) fL MCH (25.0-35.0) pg MCHC (31.0-37.0) g/dL RDW (11.5-15.5) % Immature Gran # (0.00-0.04) X 10*3/uL Lymphocytes # (1.0-4.8) k/uL Eosinophils # (0.04-0.35) X 10*3/uL Macrocytosis PT (9.0-12.0) sec INR (<1.2) Sodium (137-145) mmol/L Chloride 108 H (98-107) mmol/L BUN 22 H (9-20) mg/dL Glucose 111 H (74-99) mg/dL POC Glucose (mg/dL) 125 H (75-99) mg/dL Calcium 8.1 L (8.4-10.2) mg/dL Total Bilirubin 3.2 H (0.2-1.3) mg/dL Albumin 3.0 L (3.5-5.0) g/dL TSH (0.465-4.680) mIU/L Crossmatch Comments: Liver ultrasound: Hepatomegaly, gallbladder surgically absent. Common bile duct 0.5 cm. Assessment and Plan (1) Anemia Narrative/Plan: 76-year-old female who has had low blood counts for the last 3 weeks duration came to the emergency department with complaints of weakness and fatigue. He was noted to have a low hemoglobin on admission of 6.0 and is status post 1 unit of PRBC transfusion. Patient has a history of atrial fibrillation on Eliquis last dose taken this morning. He denies any previous history of GI bleed. He's had no previous history of peptic ulcer disease, no GERD, denies any NSAID use and no previous EGD. He states he had a colonoscopy approximately 8 years ago done in [place] for which he states was normal. At this time unknown etiology possibly may be due to AVM, esophagitis, gastritis, peptic ulcer disease, or other possible etiology. Will proceed with EGD and colonoscopy on Saturday. Hold Eliquis. Iron studies obtained. Current Visit: Yes Status: Acute Code(s): D64.9 - ANEMIA, UNSPECIFIED SNOMED Code(s): 688806082 (2) Hyperbilirubinemia Narrative/Plan: We'll obtain ultrasound of the liver, and Fractionated bilirubin Current Visit: Yes Status: Acute Code(s): E80.6 - OTHER DISORDERS OF BILIRUBIN METABOLISM SNOMED Code(s): 65151515 (3) Atrial fibrillation Narrative/Plan: Hold Eliquis Current Visit: No Status: Chronic Code(s): I48.91 - UNSPECIFIED ATRIAL FIBRILLATION SNOMED Code(s): 91913511 Plan: 1. Continue symptomatic and supportive care 2. Daily CBC, transfuse per protocol 3. Protonix 40 mg twice a day 4. Anemia studies ordered pretransfusion blood 5. Patient may have heart healthy diet this evening, Begin clear liquid diet tomorrow 6. Will proceed with EGD and colonoscopy on Saturday. Start bowel prep tomorrow afternoon. Clear liquid diet. Thank you for this consultation, we will continue to follow. Dr. Sera Marie I agree with the dictator's note, documented as a scribe by Sepideh Murphy.
--- NOTE | 2021-12-25 18:42 | P.HPIM ---
History of Present Illness H&P Date: 12/25/21 Patrick Banuelos, is a 76 year old male who presented to [facility] emergency room with a chief complaint of generalized weakness He was evaluated in the emergency room vital examination on presentation revealed a temperature of 97.7 pulse 65 respiration 18 blood pressure 105/55 pulse ox 95% on room air Laboratory data revealed a white blood count of 6.5 hemoglobin 6.0 platelet coun t 192 sodium 136 potassium 4.4 chloride 105 CO2 22 BUN 25 creatinine 1.01 glucose 143 Testing in the emergency room revealed EKG done in the emergency room revealed sinus rhythm with right bundle branch block and left anterior fascicular block, chest x-ray done in the emergency room revealed pulmonary congestion and mild heart failure and cardiomegaly. Patient was admitted to medical floor for further evaluation and treatment, gastroenterology consultation was requested 1 unit of red blood cell transfusion was given in the emergency room Past Medical History Past Medical History: Atrial Fibrillation, Asthma, Coronary Artery Disease (CAD), COPD, Diabetes Mellitus, Hypertension, Myocardial Infarction ([place]), Pneumonia Additional Past Medical History / Comment(s): left knee cap broken, pancreatitis, /gallstones Last Myocardial Infarction Date:: 2017 History of Any Multi-Drug Resistant Organisms: None Reported Past Surgical History: Cholecystectomy, Coronary Bypass/CABG, Heart Catheterization With Stent, Hernia Repair, Orthopedic Surgery Additional Past Surgical History / Comment(s): lt knee replacement(total of 3 sx), colonoscopy, Left knee cap removal with antibiotic spacers placed, Past Anesthesia/Blood Transfusion Reactions: No Reported Reaction Date of Last Stent Placement:: 10/2015 Past Psychological History: No Psychological Hx Reported Smoking Status: Former smoker Past Alcohol Use History: Occasional Past Drug Use History: None Reported - Past Family History Father Family Medical History: Diabetes Mellitus Mother Family Medical History: CVA/TIA, Hypertension Medications and Allergies Home Medications Medication Instructions Recorded Confirmed Type Allopurinol [Zyloprim] 300 mg PO DAILY 08/07/17 12/24/21 History Albuterol Sulfate [Proventil Hfa] 1 puff INHALATION RT-Q4H PRN 10/15/17 12/24/21 History Gabapentin 1,200 mg PO TID 10/02/18 12/24/21 History Levothyroxine Sodium [Synthroid] 112 mcg PO DAILY 10/02/18 12/24/21 History Levothyroxine Sodium [Synthroid] 125 mcg PO DAILY 10/02/18 12/24/21 History Nitroglycerin Sl Tabs [Nitrostat] 0.4 mg SL Q5M PRN 10/02/18 12/24/21 History diazePAM [Valium] 5 mg PO BID PRN 10/02/18 12/24/21 History Apixaban [Eliquis] 5 mg PO BID 11/07/19 12/24/21 History Finasteride [Proscar] 5 mg PO HS 03/17/21 12/24/21 History Magnesium Oxide [Mag-Ox] 500 mg PO HS 03/17/21 12/24/21 History Meclizine [Antivert] 25 mg PO BID PRN 03/17/21 12/24/21 History Omeprazole 20 mg PO DAILY 03/17/21 12/24/21 History carvediloL [Coreg] 6.25 mg PO BID-W/MEALS 03/17/21 12/24/21 History metFORMIN HCL [Glucophage] 1,000 mg PO BID 03/17/21 12/24/21 History Atorvastatin [Lipitor] 40 mg PO HS 10/19/21 12/24/21 History Fluticasone Propion/Salmeterol 1 puff INHALATION RT-BID 10/19/21 12/24/21 History [Fluticasone-Salmeterol 100-50] Allergies Allergy/AdvReac Type Severity Reaction Status Date / Time cephalexin [From Keflex] Allergy Unknown Verified 12/24/21 18:17 clopidogrel [From Plavix] Allergy Rash/Hives Verified 12/24/21 18:17 codeine Allergy Rash/Nausea Verified 12/24/21 18:17 & Vomiting Iodine and Iodide Containing Allergy Rash/Hives Verified 12/24/21 18:17 Produc levofloxacin [From Levaquin] Allergy urticaria/r Verified 12/24/21 18:17 belle shellfish derived [Shellfish] Allergy urticaria/r Verified 12/24/21 18:17 belle lisinopril AdvReac Angiodema Verified 12/24/21 18:17 of tongue oxycodone AdvReac Hallucinati Verified 12/24/21 18:17 ons solifenacin AdvReac Nausea & Verified 12/24/21 18:17 Vomiting Physical Exam Vitals: Vital Signs Temp Pulse Pulse Resp BP BP BP 12/25/21 11:15 97.4 F L 64 18 110/63 12/25/21 08:45 68 113/62 12/25/21 05:48 98.0 F 64 16 118/64 12/25/21 05:36 98.2 F 72 18 106/67 12/25/21 01:47 98.6 F 70 16 101/48 12/24/21 23:30 97.9 F 12/24/21 23:29 97.9 F 66 16 89/57 12/24/21 23:00 98.1 F 68 16 89/53 12/24/21 22:50 98.0 F 67 16 90/55 12/24/21 20:00 98.4 F 53 L 16 109/65 12/24/21 19:11 65 18 109/93 12/24/21 17:53 62 18 106/59 12/24/21 16:16 97.7 F 65 18 105/55 Pulse Ox 12/25/21 11:15 12/25/21 08:45 93 L 12/25/21 05:48 97 12/25/21 05:36 95 12/25/21 01:47 96 12/24/21 23:30 12/24/21 23:29 95 12/24/21 23:00 96 12/24/21 22:50 95 12/24/21 20:00 95 12/24/21 19:11 100 12/24/21 17:53 96 12/24/21 16:16 95 Intake and Output 12/24/21 12/25/21 12/25/21 22:59 06:59 14:59 Intake Total 240 1330 Output Total 850 Balance 240 480 Intake: Oral 240 710 Blood Product 0 620 Rc As-1 Unit 0 310 [id number] Output: Urine 850 Other: Weight 94.347 kg In general patient is alert and oriented ?-3 in no distress HEENT head normocephalic and atraumatic Neck is supple no JVD no goiter no lymphadenopathy no carotid bruit Chest examination is clear to auscultation no crackles no wheezing Cardiac exam reveals regular heart sounds S1 and S2 no gallops no murmurs Abdomen is soft nontender no organomegaly with normal bowel sounds Extremity exam reveals no edema no cyanosis or clubbing Neurological examination reveals no gross focal deficits Results CBC & Chem 7: 12/25/21 06:11 12/25/21 06:11 Labs: Abnormal Lab Results - Last 24 Hours (Table) 12/24/21 12/24/21 12/24/21 Range/Units 16:43 16:43 16:43 RBC 1.67 L (4.30-5.90) m/uL Hgb 6.0 L* D (13.0-17.5) gm/dL Hct 19.9 L* (39.0-53.0) % MCV 119.3 H D (80.0-100.0) fL MCH 35.9 H (25.0-35.0) pg MCHC 30.1 L (31.0-37.0) g/dL RDW 18.9 H (11.5-15.5) % Immature Gran # (0.00-0.04) X 10*3/uL Lymphocytes # 0.7 L (1.0-4.8) k/uL Eosinophils # (0.04-0.35) X 10*3/uL Macrocytosis Marked A PT 12.5 H (9.0-12.0) sec INR 1.2 H (<1.2) Sodium 136 L (137-145) mmol/L Chloride (98-107) mmol/L BUN 25 H (9-20) mg/dL Glucose 143 H (74-99) mg/dL POC Glucose (mg/dL) (75-99) mg/dL Calcium 7.9 L (8.4-10.2) mg/dL Total Bilirubin 3.1 H (0.2-1.3) mg/dL Albumin 3.1 L (3.5-5.0) g/dL TSH 14.800 H (0.465-4.680) mIU/L Crossmatch 12/24/21 12/24/21 12/25/21 Range/Units 19:29 20:07 06:11 RBC 1.94 L (4.30-5.90) m/uL Hgb 6.6 L* (13.0-17.5) gm/dL Hct 22.9 L (39.0-53.0) % MCV 118.0 H (80.0-100.0) fL MCH 34.0 H (25.0-35.0) pg MCHC 28.8 L (31.0-37.0) g/dL RDW 24.9 H (11.5-15.5) % Immature Gran # 0.05 H (0.00-0.04) X 10*3/uL Lymphocytes # (1.0-4.8) k/uL Eosinophils # 0.41 H (0.04-0.35) X 10*3/uL Macrocytosis PT (9.0-12.0) sec INR (<1.2) Sodium (137-145) mmol/L Chloride (98-107) mmol/L BUN (9-20) mg/dL Glucose (74-99) mg/dL POC Glucose (mg/dL) 111 H (75-99) mg/dL Calcium (8.4-10.2) mg/dL Total Bilirubin (0.2-1.3) mg/dL Albumin (3.5-5.0) g/dL TSH (0.465-4.680) mIU/L Crossmatch See Detail 12/25/21 12/25/21 Range/Units 06:11 07:10 RBC (4.30-5.90) m/uL Hgb (13.0-17.5) gm/dL Hct (39.0-53.0) % MCV (80.0-100.0) fL MCH (25.0-35.0) pg MCHC (31.0-37.0) g/dL RDW (11.5-15.5) % Immature Gran # (0.00-0.04) X 10*3/uL Lymphocytes # (1.0-4.8) k/uL Eosinophils # (0.04-0.35) X 10*3/uL Macrocytosis PT (9.0-12.0) sec INR (<1.2) Sodium (137-145) mmol/L Chloride 108 H (98-107) mmol/L BUN 22 H (9-20) mg/dL Glucose 111 H (74-99) mg/dL POC Glucose (mg/dL) 125 H (75-99) mg/dL Calcium 8.1 L (8.4-10.2) mg/dL Total Bilirubin 3.2 H (0.2-1.3) mg/dL Albumin 3.0 L (3.5-5.0) g/dL TSH (0.465-4.680) mIU/L Crossmatch Assessment and Plan Plan: Anemia with hemoglobin of 6.0 on presentation, patient received 1 unit of red blood cell transfusion in the emergency room Elevated bilirubin with mild jaundice, with normal AST ALT and alkaline phosphatase, could be related to Gilbert's syndrome, hepatitis B and C profile and liver ultrasound ordered Underlying history of hypertension Underlying history of hyperlipidemia Underlying history of atrial fibrillation maintained on adequate Underlying history of gout Underlying history of [id number] diabetes mellitus Episode of chest pain after presentation Previous history of TIA At this time patient is admitted to medical floor and gastroenterology consultation was requested 1 unit of red blood cell transfusion was given Will monitor hemoglobin closely Hold Eliquis at this time Check EKG and serial troponin levels and consult cardiology regarding episode of chest pain Obtain echo cardiogram
[2021-12-25] MEDS: ATORVASTATIN 40 MG TAB PO SCH (21:20)
[2021-12-25] MEDS: FINASTERIDE 5 MG TAB PO SCH (21:20)
[2021-12-25] MEDS: MAGNESIUM OXIDE 400 MG TAB PO SCH (21:20)
[2021-12-26 05:05] LABS: % Iron Saturation 40.3 (15.00-50.00); Folate, Serum 7.4 ng/mL (4.40-31.00)
[2021-12-26] MEDS: SYMBICORT 80-4.5 MCG INHALER INHALATION SCH ×2 (07:49→19:15)
[2021-12-26] MEDS: allopurinoL 300 MG TAB PO SCH (08:27)
[2021-12-26] MEDS: GABAPENTIN 400 MG CAP PO SCH ×3 (08:27→20:48)
[2021-12-26] MEDS: LEVOTHYROXINE 125 MCG TAB PO SCH (08:27)
[2021-12-26] MEDS: carvediloL 6.25 MG TAB PO SCH ×2 (08:27→17:35)
[2021-12-26] MEDS: LEVOTHYROXINE 112 MCG TAB PO SCH (08:27)
[2021-12-26] MEDS: PANTOPRAZOLE 40 MG TABLET PO SCH (08:27)
[2021-12-26 09:44] LABS: African American GFR (CKD) 74.7 (60.0-200.0); Albumin 3.4 g/dL (3.8-4.9); Albumin/Globulin Ratio 0.97 (1.60-3.17); Anion Gap 8.2 mmol/L (10.00-18.00); BUN/Creat Ratio 14.64 Ratio (12.00-20.00); Bilirubin, Conjugated 0.59 mg/dL (0.20-0.40); Bilirubin,Unconjugated 2.01 mg/dL (0.20-1.00); Blood Urea Nitrogen 16.1 mg/dL (9.0-27.0); Calcium 8.6 mg/dL (8.7-10.3); Carbon Dioxide 23.8 mmol/L (20.0-27.5); Globulin 3.5 g/dL (1.6-3.3); Non-African American GFR(CKD) 64.4 (60.0-200.0); Potassium 4.3 mmol/L (3.5-5.5); Total Bilirubin 2.6 mg/dL (0.30-1.20); Total Protein 6.9 g/dL (6.2-8.2)
[2021-12-26] MEDS: ISOSORBIDE MONONITRATE ER 15 MG TAB PO SCH (09:51)
[2021-12-26 10:01] LABS: Basophils # (A) 0.05 X 10*3/uL (0.00-0.10); Basophils % (A) 0.6 %; Eosinophils # (A) 0.33 X 10*3/uL (0.04-0.35); Eosinophils % (A) 3.8 %; HGB 6.8 g/dL (13.0-17.0); Immature Grans, Automated 0.6 %; Lymphocytes # (A) 1.18 X 10*3/uL (0.90-5.00); Lymphocytes % (A) 13.5 %; MCHC 28.3 g/dL (32.0-37.0); Mean Platelet Volume 9.3 fL (9.5-12.2); Monocytes # (A) 0.81 X 10*3/uL (0.20-1.00); Monocytes % (A) 9.2 %; NRBC Per 100 WBC 0 /100 WBCS (0.0-0.0); Neutrophils # (A) 6.35 X 10*3/uL (1.80-7.70); Neutrophils % (A) 72.3 %; Platelet Count 199 X 10*3/uL (140-440); RDW 24.4 % (11.5-14.5); WBC 8.77 X 10*3/uL (4.50-10.00)
--- NOTE | 2021-12-26 10:10 | P.CRDCN ---
History of Present Illness History of present illness: HISTORY OF PRESENTING ILLNESS This is a pleasant 76-year-old male past medical history significant for coronary artery disease status post prior CABG with LINDSEY to LAD, PCI in the ostium of the circumflex, left main and RCA, type 2 diabetes, ischemic cardiomyopathy, paroxysmal atrial fibrillation on Eliquis, recent left knee surgery in October 2021. He follows in the office with Dr. Mac. We have been asked to see in consultation for chest pain. Patient presents to the emergency department with complaints of fatigue and generalized weakness. He had recent left knee surgery and felt he was not getting stronger. Found to have a hemoglobin of 6.0, received 1 unit PRBCs. On 12/24/21 night patient states he had an episode of chest pain. Located across his chest. Describes it as aching/tightness. He states it lasted a couple hours and resolved on its own, but did take 2 subligual nitro with some relief. He had no associated symptoms. It was non-radiating, non-exertional. He denies any symptoms of nausea, vomiting, diaphoresis, shortness of breath, lightheadedness, dizziness or palpitations. 2 Repeat EKGs with no acute changes. 4 cardiac enzymes were drawn and they were negative. He denies symptoms of shortness of breath, orthopnea, PND. His lungs are clear on exam and he has no lower extremity edema. Denies any bleeding in his urine or stool. Denies black stools DIAGNOSTICS EKG reveals sinus rhythm, heart rate 65, right bundle-branch block, T wave inversion in lead V2, no acute STT wave abnormalities. 2 repeat EKGs with similar findings. Chest xray some mild pulmonary congestion noted. Laboratory reviewed, WBC 8.7, hemoglobin 6.8, platelets 199, sodium 134, potassium 4.3, BUN 16, serum creatinine 1.1, troponin negative 4 Current home medications include Eliquis 5 mg twice a day, metformin, Valium, carvedilol 6.25 mg twice a day, meclizine, when necessary nitro, magnesium oxide, Synthroid, gabapentin, Proscar, atorvastatin 40 mg nightly Echocardiogram 09/2021 revealed an EF of 4045 percent, anterior apical LV wall and anterior septal hypokinesis, mild aortic stenosis peak/mean gradient 25 mmHg/15 mmHg, moderate tricuspid regurgitation, mild mitral regurgitation, mild pulmonary hypertension with an RVSP of 42 mmHg REVIEW OF SYSTEMS At the time of my exam: CONSTITUTIONAL: Denies fever or chills. CARDIOVASCULAR: Denies chest pain, shortness of breath, orthopnea, PND or palpitations. RESPIRATORY: Denies cough. GASTROINTESTINAL: Denies abdominal pain, diarrhea, constipation, nausea or vomiting. MUSCULOSKELETAL: Denies myalgias. NEUROLOGIC: Denies numbness, tingling, headacbe or weakness. ENDOCRINE: Denies fatigue, weight change, polydipsia or polyurina. GENITOURINARY: Denies burning, hematuria or urgency with micturation. HEMATOLOGIC: Denies any bleeding PHYSICAL EXAMINATION Blood pressure 105/62, heart rate 68, afebrile, oxygen saturations 91% on 2 L nasal cannula CONSTITUTIONAL: No apparent distress. HEENT: Head is normocephalic. Pupils are equal, round. Sclerae anicteric. Mucous membranes of the mouth are moist. No JVD. CHEST EXAMINATION: Lungs are clear to auscultation. No chest wall tenderness is noted on palpation or with deep breathing. HEART EXAMINATION: Regular rate and rhythm. S1, S2 heard. Systolic ejection m urmur at base and apex. ABDOMEN: Soft, nontender. Positive bowel sounds. EXTREMITIES: 2+ peripheral pulses, no lower extremity edema and no calf tenderness. NEUROLOGIC EXAMINATION: Patient is awake, alert and oriented x3. ASSESSMENT Chest pain, atypical, acute coronary syndrome has ruled out Anemia status post 1 unit of PRBC transfusion Symptoms of generalized weakness and fatigue Coronary artery disease status post prior CABG with LINDSEY to LAD, PCI in the ostium of the circumflex, left main and RCA Type 2 diabetes Ischemic cardiomyopathy Paroxysmal atrial fibrillation on Eliquis, currently in sinus mechanism Recent left knee surgery in October 2021 PLAN -Add Imdur 15mg daily -Patient does not appear to be in acute heart failure -GI following for anemia plan for EGD and colonoscopy saturday -2D echocardiogram ordered, will review. -Continue to hold Eliquis due to anemia -Continue all other cardiac medications -Further recommendations based on clinical course Nurse practitioner note has been reviewed by physician. Signing provider agrees with the documented findings, assessment, and plan of care. Past Medical History Past Medical History: Atrial Fibrillation, Asthma, Coronary Artery Disease (CAD), COPD, Diabetes Mellitus, Hypertension, Myocardial Infarction ([place]), Pneumonia Additional Past Medical History / Comment(s): left knee cap broken, pancreatitis, /gallstones Last Myocardial Infarction Date:: 2017 History of Any Multi-Drug Resistant Organisms: None Reported Past Surgical History: Cholecystectomy, Coronary Bypass/CABG, Heart Catheterization With Stent, Hernia Repair, Orthopedic Surgery Additional Past Surgical History / Comment(s): lt knee replacement(total of 3 sx), colonoscopy, Left knee cap removal with antibiotic spacers placed, Past Anesthesia/Blood Transfusion Reactions: No Reported Reaction Date of Last Stent Placement:: 10/2015 Past Psychological History: No Psychological Hx Reported Smoking Status: Former smoker Past Alcohol Use History: Occasional Past Drug Use History: None Reported - Past Family History Father Family Medical History: Diabetes Mellitus Mother Family Medical History: CVA/TIA, Hypertension Medications and Allergies Home Medications Medication Instructions Recorded Confirmed Type Allopurinol [Zyloprim] 300 mg PO DAILY 08/07/17 12/24/21 History Albuterol Sulfate [Proventil Hfa] 1 puff INHALATION RT-Q4H PRN 10/15/17 12/24/21 History Gabapentin 1,200 mg PO TID 10/02/18 12/24/21 History Levothyroxine Sodium [Synthroid] 112 mcg PO DAILY 10/02/18 12/24/21 History Levothyroxine Sodium [Synthroid] 125 mcg PO DAILY 10/02/18 12/24/21 History Nitroglycerin Sl Tabs [Nitrostat] 0.4 mg SL Q5M PRN 10/02/18 12/24/21 History diazePAM [Valium] 5 mg PO BID PRN 10/02/18 12/24/21 History Apixaban [Eliquis] 5 mg PO BID 11/07/19 12/24/21 History Finasteride [Proscar] 5 mg PO HS 03/17/21 12/24/21 History Magnesium Oxide [Mag-Ox] 500 mg PO HS 03/17/21 12/24/21 History Meclizine [Antivert] 25 mg PO BID PRN 03/17/21 12/24/21 History Omeprazole 20 mg PO DAILY 03/17/21 12/24/21 History carvediloL [Coreg] 6.25 mg PO BID-W/MEALS 03/17/21 12/24/21 History metFORMIN HCL [Glucophage] 1,000 mg PO BID 03/17/21 12/24/21 History Atorvastatin [Lipitor] 40 mg PO HS 10/19/21 12/24/21 History Fluticasone Propion/Salmeterol 1 puff INHALATION RT-BID 10/19/21 12/24/21 History [Fluticasone-Salmeterol 100-50] Allergies Allergy/AdvReac Type Severity Reaction Status Date / Time cephalexin [From Keflex] Allergy Unknown Verified 12/24/21 18:17 clopidogrel [From Plavix] Allergy Rash/Hives Verified 12/24/21 18:17 codeine Allergy Rash/Nausea Verified 12/24/21 18:17 & Vomiting Iodine and Iodide Containing Allergy Rash/Hives Verified 12/24/21 18:17 Produc levofloxacin [From Levaquin] Allergy urticaria/r Verified 12/24/21 18:17 belle shellfish derived [Shellfish] Allergy urticaria/r Verified 12/24/21 18:17 belle lisinopril AdvReac Angiodema Verified 12/24/21 18:17 of tongue oxycodone AdvReac Hallucinati Verified 12/24/21 18:17 ons solifenacin AdvReac Nausea & Verified 12/24/21 18:17 Vomiting Physical Exam Vitals: Vital Signs Temp Pulse Pulse Resp BP Pulse Ox 12/26/21 07:49 92 L 12/26/21 04:26 98.3 F 68 18 105/62 91 L 12/25/21 19:59 97.7 F 63 16 111/61 91 L 12/25/21 16:47 63 106/59 95 12/25/21 15:43 70 12/25/21 15:30 70 12/25/21 11:15 97.4 F L 64 18 110/63 12/25/21 08:45 68 113/62 93 L Intake and Output 12/25/21 12/26/21 12/26/21 22:59 06:59 14:59 Intake Total 240 Output Total 200 200 Balance -200 40 Intake: Oral 240 Output: Urine 200 200 Other: # Voids 2 4 # Bowel Movements 1 Results 12/25/21 06:11 12/26/21 06:53 Cardiac Enzymes 12/25/21 12/25/21 12/26/21 Range/Units 19:44 23:52 06:53 Troponin I <0.012 <0.012 <0.012 (0.000-0.034) ng/mL CBC 12/25/21 Range/Units 06:11 WBC 7.38 (4.50-10.00) X 10*3/uL RBC 1.94 L (4.40-5.60) X 10*6/uL Hgb 6.6 L* (13.0-17.0) g/dL Hct 22.9 L (39.6-50.0) % Plt Count 160 (140-440) X 10*3/uL Current Medications Generic Name Dose Route Start Last Admin Trade Name Freq PRN Reason Stop Dose Admin Albuterol Sulfate 2.5 mg 12/24/21 23:04 12/25/21 15:29 Albuterol Nebulized 2.5 Mg/3 Ml INHALATION 2.5 mg RT-Q4H PRN Administration Shortness Of Breath Allopurinol 300 mg 12/25/21 09:00 12/25/21 08:50 Allopurinol 300 Mg Tab PO 300 mg DAILY MARIVEL Administration Atorvastatin Calcium 40 mg 12/25/21 21:00 12/25/21 21:20 Atorvastatin 40 Mg Tab PO 40 mg HS MARIVEL Administration Budesonide/Formoterol Fumarate 2 puff 12/25/21 08:00 12/26/21 07:49 Symbicort 80-4.5 Mcg Inhaler INHALATION 2 puff RT-BID MARIVEL Administration Carvedilol 6.25 mg 12/25/21 07:30 12/25/21 16:51 Carvedilol 6.25 Mg Tab PO 6.25 mg BID-W/MEALS MARIVEL Administration Diazepam 5 mg 12/24/21 23:04 12/25/21 06:30 Diazepam 5 Mg Tab PO 5 mg BID PRN Administration anxiety/insomnia Finasteride 5 mg 12/25/21 21:00 12/25/21 21:20 Finasteride 5 Mg Tab PO 5 mg HS MARIVEL Administration Gabapentin 1,200 mg 12/24/21 23:15 12/25/21 21:20 Gabapentin 400 Mg Cap PO 1,200 mg TID MARIVEL Administration Levothyroxine Sodium 112 mcg 12/25/21 06:30 12/25/21 08:49 Levothyroxine 112 Mcg Tab PO 112 mcg DAILY@0630 MARIVEL Administration Levothyroxine Sodium 125 mcg 12/25/21 06:30 12/25/21 08:49 Levothyroxine 125 Mcg Tab PO 125 mcg DAILY@0630 MARIVEL Administration Magnesium Oxide 400 mg 12/25/21 21:00 12/25/21 21:20 Magnesium Oxide 400 Mg Tab PO 400 mg HS MARIVEL Administration Meclizine HCl 25 mg 12/24/21 23:04 Meclizine 25 Mg Tab PO BID PRN dizziness Naloxone HCl 0.2 mg 12/24/21 18:12 Naloxone 0.4 Mg/Ml 1 Ml Vial IV Q2M PRN Opioid Reversal Nitroglycerin 0.4 mg 12/24/21 23:04 12/25/21 06:34 Nitroglycerin Sl Tabs 0.4 Mg Tab SUBLINGUAL 0.4 mg Q5M PRN Administration Chest Pain Pantoprazole Sodium 40 mg 12/25/21 07:30 12/25/21 08:49 Pantoprazole 40 Mg Tablet PO 40 mg [id number] MARIVEL Administration Intake and Output 12/25/21 12/26/21 12/26/21 22:59 06:59 14:59 Intake Total 240 Output Total 200 200 Balance -200 40 Intake: Oral 240 Output: Urine 200 200 Other: # Voids 2 4 # Bowel Movements 1 12/25/21 06:11 12/25/21 06:11
--- NOTE | 2021-12-26 10:32 | ECHOF ---
Referral Reason:Chest pain MEASUREMENTS -------- HEIGHT: 182.9 cm WEIGHT: 92.5 kg BP: RVIDd: 4.0 cm (< 3.3) IVSd: 1.2 cm (0.6 - 1.1) LVIDd: 5.6 cm (3.9 - 5.3) LVPWd: 1.2 cm (0.6 - 1.1) IVSs: 1.2 cm LVIDs: 5.3 cm LVPWs: 1.0 cm LA Diam: 5.0 cm (2.7 - 3.8) LAESV Index (A-L): 43.62 ml/m Ao Diam: 3.2 cm (2.0 - 3.7) AV Cusp: 0.5 cm (1.5 - 2.6) LA Diam: 5.1 cm (2.7 - 3.8) MV EXCURSION: 22.213 mm (> 18.000) MV EF SLOPE: 91 mm/s (70 - 150) EPSS: 1.5 cm MV E Shamir: 1.01 m/s MV A Shamir: 0.61 m/s MV E/A Ratio: 1.66 AV maxP.85 mmHg AV meanP.18 mmHg RAP: 5.00 mmHg RVSP: 64.55 mmHg FINDINGS -------- Sinus rhythm. This was a techncally difficult study with suboptimal views, , Definity utilized for enhancement of i mages. The left ventricular size is normal. There is mild concentric left ventricular hypertrophy. There is severe global hypokinesis of LV . Overall left ventricular systolic function is severely impair ed with, an EF between 20 - 25 %. The right ventricle is moderate to severely enlarged. LA is severely dilated >40 ml/m2 The right atrial size is normal. xx ml of Lumason was utilized for enhancement of images. There is moderate aortic stenosis present. Peak/mean gradient across the Aortic Valve is 41.85mmHg / 18.18mmHg. Mild mitral regurgitation is present. Mild tricuspid regurgitation present. There is moderate pulmonary hypertension. The right ventric ular systolic pressure, as measured by Doppler, is 64.55mmHg. There is no pulmonic regurgitation present. Echo free space indicative of a pericardial fat pad. CONCLUSIONS -------- 1. This was a techncally difficult study with suboptimal views, , Definity utilized for enhancement o f images. 2. The left ventricular size is normal. 3. There is mild concentric left ventricular hypertrophy. 4. There is severe global hypokinesis of LV . 5. Overall left ventricular systolic function is severely impaired with, an EF between 20 - 25 %. 6. The right ventricle is moderate to severely enlarged. 7. LA is severely dilated >40 ml/m2 8. The right atrial size is normal. 9. xx ml of Lumason was utilized for enhancement of images. 10. There is moderate aortic stenosis present. 11. Peak/mean gradient across the Aortic Valve is 41.85mmHg / 18.18mmHg. 12. Mild mitral regurgitation is present. 13. Mild tricuspid regurgitation present. 14. There is moderate pulmonary hypertension. 15. The right ventricular systolic pressure, as measured by Doppler, is 64.55mmHg. 16. There is no pulmonic regurgitation present. 17. Echo free space indicative of a pericardial fat pad. [employer]: Citlali Hahn RDCS
[2021-12-26] MEDS ORDERED: PEG 3350-NA SULF,BICARB,CL/KCL 4,000 ML BOTTLE PO ONE (14:00)
[2021-12-26] MEDS: ALBUTEROL NEBULIZED 2.5 MG/3 ML INHALATION PRN (15:30)
--- NOTE | 2021-12-26 15:37 | P.PN ---
Subjective Progress Note Date: 12/26/21 Principal diagnosis: Anemia 76-year-old male seen as a follow-up today with complaints of low hemoglobin and weakness. Patient has been anemic for the last 1 month's duration and has undergone blood transfusion 3 times. He has been denying any black stool or blood in his stool. Denies any abdominal pain or epigastric pain no history of peptic ulcer disease. She does take your request and that has been on hold. Plan is to proceed with EGD and colonoscopy tomorrow. His last colonoscopy reported as approximately 8 years ago in [place]. Hemoglobin 6.8, status post 1 unit PRBC transfusion. Iron 99 TIBC 246 saturation 40 transfer 176 ferritin 345. This was requested to be drawn from pretransfusion blood. Total bilirubin 2.6 conjugated bilirubin 0.59 unconjugated bilirubin 2.01 Objective - Vital Signs Vital signs: Vital Signs Temp 98.3 F 12/26/21 04:26 Pulse 68 12/26/21 04:26 Resp 18 12/26/21 04:26 BP 105/62 12/26/21 04:26 Pulse Ox 92 L 12/26/21 07:49 Intake & Output 12/25/21 12/26/21 12/26/21 18:59 06:59 18:59 Intake Total 240 Output Total 200 200 Balance -200 40 Intake: Oral 240 Output: Urine 200 200 Other: # Voids 2 4 # Bowel Movements 1 - Exam General appearance: The patient is alert, oriented, appears in no acute distress. HET: Head is normocephalic and atraumatic. Conjunctiva pink. Sclera anicteric. Neck: Supple without lymphadenopathy. Abdomen: Soft, nontender, nondistended with bowel sounds. No guarding or rigidity. Extremities: Normal skin color and turgor. No pedal edema Skin: No rashes, no jaundice Neurological: No focal deficits. Alert and oriented -3. - Labs CBC & Chem 7: 12/26/21 06:53 12/26/21 06:53 Labs: Abnormal Lab Results - Last 24 Hours (Table) 12/25/21 12/25/21 Range/Units 06:11 06:11 RBC 1.94 L (4.40-5.60) X 10*6/uL Hgb 6.6 L* (13.0-17.0) g/dL Hct 22.9 L (39.6-50.0) % MCV 118.0 H (80.0-97.0) fL MCH 34.0 H (27.0-32.0) pg MCHC 28.8 L (32.0-37.0) g/dL RDW 24.9 H (11.5-14.5) % Immature Gran # 0.05 H (0.00-0.04) X 10*3/uL Eosinophils # 0.41 H (0.04-0.35) X 10*3/uL Transferrin 176.0 L (204.0-354.0) mg/dL Ferritin 345.0 H (22.0-322.0) ng/mL Assessment and Plan (1) Anemia Narrative/Plan: 76-year-old female who has had low blood counts for the last 3 weeks duration came to the emergency department with complaints of weakness and fatigue. He was noted to have a low hemoglobin on admission of 6.0 and is status post 1 unit of PRBC transfusion. Patient has a history of atrial fibrillation on Eliquis last dose taken this morning. He denies any previous history of GI bleed. He's had no previous history of peptic ulcer disease, no GERD, denies any NSAID use and no previous EGD. He states he had a colonoscopy approximately 8 years ago done in [place] for which he states was normal. At this time unknown etiology possibly may be due to AVM, esophagitis, gastritis, peptic ulcer disease, or other possible etiology. Will proceed with EGD and colonoscopy on Saturday. Hold Eliquis. Iron studies obtained. Current Visit: Yes Status: Acute Code(s): D64.9 - ANEMIA, UNSPECIFIED SNOMED Code(s): 914813268 (2) Hyperbilirubinemia Narrative/Plan: We'll obtain ultrasound of the liver, and Fractionated bilirubin Current Visit: Yes Status: Acute Code(s): E80.6 - OTHER DISORDERS OF BILIR UBIN METABOLISM SNOMED Code(s): 83930215 (3) Atrial fibrillation Narrative/Plan: Hold Eliquis Current Visit: No Status: Chronic Code(s): I48.91 - UNSPECIFIED ATRIAL FIBRILLATION SNOMED Code(s): 06628079 Plan: 1. Continue symptomatic and supportive care 2. Daily CBC, transfuse per protocol 3. Protonix 40 mg twice a day 4. Clear liquid diet, nothing by mouth after midnight 5. Will proceed with EGD and colonoscopy tomorrow. Start bowel prep this afternoon. Thank you for this consultation, we will continue to follow. Dr. Sera Marie I agree with the dictator's note, documented as a scribe by Sepideh Murphy.
--- NOTE | 2021-12-26 19:32 | P.PN ---
Subjective Progress Note Date: 12/26/21 Patrick Banuelos, is a 76 year old male who presented to [facility] emergency room with a chief complaint of generalized weakness He was evaluated in the emergency room vital examination on presentation revealed a temperature of 97.7 pulse 65 respiration 18 blood pressure 105/55 pulse ox 95% on room air Laboratory data revealed a white blood count of 6.5 hemoglobin 6.0 platelet count 192 sodium 136 potassium 4.4 chloride 105 CO2 22 BUN 25 creatinine 1.01 glucose 143 Testing in the emergency room revealed EKG done in the emergency room revealed sinus rhythm with right bundle branch block and left anterior fascicular block, chest x-ray done in the emergency room revealed pulmonary congestion and mild heart failure and cardiomegaly. Patient was admitted to medical floor for further evaluation and treatment, gastroenterology consultation was requested 1 unit of red blood cell transfusion was given in the emergency room On 12/26/2020 patient was seen and examined on the medical floor he is alert and oriented 3 in no apparent distress there is no fever or chills no headache or dizziness no chest pain no shortness of breath no cough no nausea or vomiting no abdominal pain no diarrhea and no urinary symptoms he is scheduled tomorrow for EGD and colonoscopy and will receive preparation this afternoon, hemoglobin today is 6.8 will continue to monitor patient's received 1 unit of red blood cell transfusion in the emergency room Objective - Vital Signs Vital signs: Vital Signs Temp 98.3 F 12/26/21 04:26 Pulse 68 12/26/21 04:26 Resp 18 12/26/21 04:26 BP 105/62 12/26/21 04:26 Pulse Ox 92 L 12/26/21 07:49 Intake & Output 12/25/21 12/26/21 12/26/21 18:59 06:59 18:59 Intake Total 240 Output Total 200 200 Balance -200 40 Intake: Oral 240 Output: Urine 200 200 Other: # Voids 2 4 # Bowel Movements 1 - Exam In general patient is alert and oriented x 3 in no distress HEENT head normocephalic and atraumatic Neck is supple no JVD no goiter no lymphadenopathy no carotid bruit Chest examination is clear to auscultation no crackles no wheezing Cardiac exam reveals regular heart sounds S1 and S2 no gallops no murmurs Abdomen is soft nontender no organomegaly with normal bowel sounds Extremity exam reveals no edema no cyanosis or clubbing Neurological examination reveals no gross focal deficits - Labs CBC & Chem 7: 12/26/21 06:53 12/26/21 06:53 Labs: Abnormal Lab Results - Last 24 Hours (Table) 12/25/21 12/25/21 Range/Units 06:11 06:11 RBC 1.94 L (4.40-5.60) X 10*6/uL Hgb 6.6 L* (13.0-17.0) g/dL Hct 22.9 L (39.6-50.0) % MCV 118.0 H (80.0-97.0) fL MCH 34.0 H (27.0-32.0) pg MCHC 28.8 L (32.0-37.0) g/dL RDW 24.9 H (11.5-14.5) % Immature Gran # 0.05 H (0.00-0.04) X 10*3/uL Eosinophils # 0.41 H (0.04-0.35) X 10*3/uL Transferrin 176.0 L (204.0-354.0) mg/dL Ferritin 345.0 H (22.0-322.0) ng/mL Assessment and Plan Plan: Anemia with hemoglobin of 6.0 on presentation, patient received 1 unit of red blood cell transfusion in the emergency room Elevated bilirubin with mild jaundice, with normal AST ALT and alkaline phosphatase, could be related to Gilbert's syndrome, hepatitis B and C profile and liver ultrasound ordered Underlying history of hypertension Underlying history of hyperlipidemia Underlying history of atrial fibrillation maintained on adequate Underlying history of gout Underlying history of sso-okqkgnv-gbsszcfiv diabetes mellitus Episode of chest pain after presentation Previous history of TIA At this time patient is admitted to medical floor and gastroenterology consulta tion was requested 1 unit of red blood cell transfusion was given Will monitor hemoglobin closely Hold Eliquis at this time Check EKG and serial troponin levels and consult cardiology regarding episode of chest pain Obtain echo cardiogram
[2021-12-26] MEDS: MAGNESIUM OXIDE 400 MG TAB PO SCH (20:48)
[2021-12-26] MEDS: FINASTERIDE 5 MG TAB PO SCH (20:48)
[2021-12-26] MEDS: ATORVASTATIN 40 MG TAB PO SCH (20:48)
[2021-12-27] MEDS: LEVOTHYROXINE 112 MCG TAB PO SCH (06:02)
[2021-12-27] MEDS: LEVOTHYROXINE 125 MCG TAB PO SCH (06:02)
[2021-12-27] MEDS: SYMBICORT 80-4.5 MCG INHALER INHALATION SCH ×2 (07:20→20:14)
[2021-12-27] MEDS: GABAPENTIN 400 MG CAP PO SCH ×3 (07:47→21:23)
[2021-12-27] MEDS: allopurinoL 300 MG TAB PO SCH (07:47)
[2021-12-27] MEDS: PANTOPRAZOLE 40 MG TABLET PO SCH (07:47)
[2021-12-27] MEDS: ISOSORBIDE MONONITRATE ER 15 MG TAB PO SCH (07:49)
[2021-12-27] MEDS: carvediloL 6.25 MG TAB PO SCH ×2 (07:49→17:58)
[2021-12-27] MEDS ORDERED: hydrALAZINE HCL 10 MG TAB PO SCH (09:00)
--- NOTE | 2021-12-27 09:03 | XR ---
EXAMINATION TYPE: XR chest 1V portable DATE OF EXAM: 12/27/2021 HISTORY: Shortness of breath. COMPARISON: 12/24/2021 TECHNIQUE: Single view of the chest is submitted. FINDINGS: Demonstrated are scattered senescent parenchymal change. There is cardiomegaly with pulmonary venous congestion and interstitial edema. Hilar and mediastinal structures are within normal limits. Degenerative changes are seen of the dorsal spine. IMPRESSION: 1. There is cardiomegaly with pulmonary venous congestion and interstitial edema.
--- NOTE | 2021-12-27 10:02 | P.PN ---
Subjective Progress Note Date: 12/27/21 Patrick Banuelos, is a 76 year old male who presented to [facility] emergency room with a chief complaint of generalized weakness He was evaluated in the emergency room vital examination on presentation revealed a temperature of 97.7 pulse 65 respiration 18 blood pressure 105/55 pulse ox 95% on room air Laboratory data revealed a white blood count of 6.5 hemoglobin 6.0 platelet count 192 sodium 136 potassium 4.4 chloride 105 CO2 22 BUN 25 creatinine 1.01 glucose 143 Testing in the emergency room revealed EKG done in the emergency room revealed sinus rhythm with right bundle branch block and left anterior fascicular block, chest x-ray done in the emergency room revealed pulmonary congestion and mild heart failure and cardiomegaly. Patient was admitted to medical floor for further evaluation and treatment, gastroenterology consultation was requested 1 unit of red blood cell transfusion was given in the emergency room On 12/26/2020 patient was seen and examined on the medical floor he is alert and oriented 3 in no apparent distress there is no fever or chills no headache or dizziness no chest pain no shortness of breath no cough no nausea or vomiting no abdominal pain no diarrhea and no urinary symptoms he is scheduled tomorrow for EGD and colonoscopy and will receive preparation this afternoon, hemoglobin today is 6.8 will continue to monitor patient's received 1 unit of red blood cell transfusion in the emergency room On 12/27/2021 patient is alert and oriented 3. Plans for colonoscopy and EGD today per GI services labs currently pending cardiology and GI services following. Current vitals temp 97.9, pulse rate 69, respiratory rate 18, blood pressure 119/60. Patient stating 99% on 2 L. Repeat labs ordered for a.m. Objective - Vital Signs Vital signs: Vital Signs Temp 97.9 F 12/27/21 04:57 Pulse 69 12/27/21 04:57 Resp 18 12/27/21 04:57 BP 119/63 12/27/21 04:57 Pulse Ox 99 12/27/21 04:57 Intake & Output 12/26/21 12/27/21 12/27/21 18:59 06:59 18:59 Intake Total 240 Balance 240 Intake: Oral 240 Other: # Voids 1 # Bowel Movements 2 6 - Exam In general patient is alert and oriented x 3 in no distress HEENT head normocephalic and atraumatic Neck is supple no JVD no goiter no lymphadenopathy no carotid bruit Chest examination is clear to auscultation no crackles no wheezing Cardiac exam reveals regular heart sounds S1 and S2 no gallops no murmurs Abdomen is soft nontender no organomegaly with normal bowel sounds Extremity exam reveals no edema no cyanosis or clubbing Neurological examination reveals no gross focal deficits - Labs CBC & Chem 7: 12/26/21 06:53 12/26/21 06:53 Labs: Abnormal Lab Results - Last 24 Hours (Table) 12/26/21 Range/Units 06:53 RBC 2.00 L (4.40-5.60) X 10*6/uL Hgb 6.8 L* (13.0-17.0) g/dL Hct 24.0 L (39.6-50.0) % MCV 120.0 H (80.0-97.0) fL MCH 34.0 H (27.0-32.0) pg MCHC 28.3 L (32.0-37.0) g/dL RDW 24.4 H (11.5-14.5) % MPV 9.3 L (9.5-12.2) fL Immature Gran # 0.05 H (0.00-0.04) X 10*3/uL Assessment and Plan Plan: Anemia with hemoglobin of 6.0 on presentation, patient received 1 unit of red blood cell transfusion in the emergency room Elevated bilirubin with mild jaundice, with normal AST ALT and alkaline phosphatase, could be related to Gilbert's syndrome, hepatitis B and C profile and liver ultrasound ordered Underlying history of hypertension Underlying history of hyperlipidemia Underlying history of atrial fibrillation maintained on adequate Underlying history of gout Underlying history of rfw-oaelaiy-ywvnwlppk diabetes mellitus Episode of chest pain after presentation Previous history of TIA At this time patient is admitted to medical floor and gastroenterology consultation was requested 1 unit of red blood cell transfusion was given Will monitor hemoglobin closely Hold [facility] at this time Cardiology services following Obtain echo cardiogram Plans for EGD and colonoscopy today 12/27/2021 repeat Labs ordered
[2021-12-27 10:11] LABS: ALT <5 U/L (10-49); AST 14 U/L (14-35); African American GFR (CKD) 83.8 (60.0-200.0); Albumin 3.1 g/dL (3.8-4.9); Albumin/Globulin Ratio 0.97 (1.60-3.17); Alkaline Phosphatase 74 U/L (41-126); Blood Urea Nitrogen 16.4 mg/dL (9.0-27.0); Calcium 8.3 mg/dL (8.7-10.3); Carbon Dioxide 24.9 mmol/L (20.0-27.5); Chloride 104 mmol/L (96-109); Globulin 3.2 g/dL (1.6-3.3); Glucose 101 mg/dL (70-110); Non-African American GFR(CKD) 72.3 (60.0-200.0); Potassium 4.2 mmol/L (3.5-5.5); Sodium 139 mmol/L (135-145); Total Protein 6.3 g/dL (6.2-8.2)
[2021-12-27 10:21] LABS: Basophils # (A) 0.04 X 10*3/uL (0.00-0.10); Basophils % (A) 0.6 %; Eosinophils # (A) 0.31 X 10*3/uL (0.04-0.35); Eosinophils % (A) 4.8 %; HCT 19.5 % (39.6-50.0); HGB 5.6 g/dL (13.0-17.0); Immature Grans, Automated 0.8 %; Lymphocytes # (A) 1.02 X 10*3/uL (0.90-5.00); Lymphocytes % (A) 15.9 %; MCH 33.9 pg (27.0-32.0); MCHC 28.7 g/dL (32.0-37.0); MCV 118.2 fL (80.0-97.0); Mean Platelet Volume 9.5 fL (9.5-12.2); Monocytes # (A) 0.55 X 10*3/uL (0.20-1.00); Monocytes % (A) 8.6 %; NRBC Per 100 WBC 0 /100 WBCS (0.0-0.0); Neutrophils # (A) 4.44 X 10*3/uL (1.80-7.70); Neutrophils % (A) 69.3 %; Platelet Count 150 X 10*3/uL (140-440); RBC 1.65 X 10*6/uL (4.40-5.60); RDW 23.5 % (11.5-14.5); WBC 6.41 X 10*3/uL (4.50-10.00)
[2021-12-27 10:22] LABS: Anisocytosis (M) 2+; Macrocytosis (M) 2+
[2021-12-27] MEDS: FUROSEMIDE 10 MG/ML 4 ML VIAL IV SCH ×2 (10:57→21:23)
[2021-12-27] MEDS: HYDROcodone/APAP 7.5-325MG 1 EACH TAB PO PRN (11:03)
--- NOTE | 2021-12-27 12:35 | P.PN ---
Subjective HISTORY OF PRESENTING ILLNESS This is a pleasant 76-year-old male past medical history significant for coronary artery disease status post prior CABG with LINDSEY to LAD, PCI in the ostium of the circumflex, left main and RCA, type 2 diabetes, ischemic cardiomyopathy, paroxysmal atrial fibrillation on Eliquis, recent left knee surgery in October 2021. He follows in the office with Dr. Mac. We have been asked to see in consultation for chest pain. Patient presents to the emergency department with complaints of fatigue and generalized weakness. He had recent left knee surgery and felt he was not getting stronger. Found to have a hemoglobin of 6.0, received 1 unit PRBCs. On 12/24/21 night patient states he had an episode of chest pain. Located across his chest. Describes it as aching/tightness. He states it lasted a couple hours and resolved on its own, but did take 2 subligual nitro with some relief. He had no associated symptoms. It was non-radiating, non-exertional. He denies any symptoms of nausea, vomiting, diaphoresis, shortness of breath, lightheadedness, dizziness or palpitations. 2 Repeat EKGs with no acute changes. 4 cardiac enzymes were drawn and they were negative. He denies symptoms of shortness of breath, orthopnea, PND. His lungs are clear on exam and he has no lower extremity edema. Denies any bleeding in his urine or stool. Denies black stools 12/27/2021 Patient seen and examined at bedside, had episode of shortness of breath overnight. He has no further chest pain. Repeat Echocardiogram revealed EF of 5%, LA severely dilated, moderate aortic stenosis peak/mean gradient of 41 mmHg/18 mmHg, mild mitral regurgitation, mild tricuspid regurgitation. He's currently maintained on atorvastatin 40 mg nightly, Imdur 15 mg daily, carvedilol 6.25 mg twice a day Labs: Hemoglobin 5.6 today, sodium 139, potassium 4.2, BUN 16, serum creatinine 1.0 PHYSICAL EXAMINATION Blood pressure 100/54, heart rate 72, afebrile, saturations 92% on room air CONSTITUTIONAL: No apparent distress. HEENT: Neck Supple. No JVD. CHEST EXAMINATION: Lungs are diminished with mild crackles in the abses auscultation. HEART EXAMINATION: Regular rate and rhythm. S1, S2 heard. Systolic ejection murmur at base and apex. ABDOMEN: Soft, nontender. Positive bowel sounds. EXTREMITIES: 2+ peripheral pulses, no lower extremity edema and no calf tenderness. NEUROLOGIC EXAMINATION: Patient is awake, alert and oriented x3. ASSESSMENT Chest pain, atypical, acute coronary syndrome has ruled out Acute on chronic heart failure with reduced ejection fraction Anemia status post 1 unit of PRBC transfusion Symptoms of generalized weakness and fatigue Worsening cardiomyopathy, could be related to anemia, ischemic vs non-ischemic Coronary artery disease status post prior CABG with LINDSEY to LAD, PCI in the ostium of the circumflex, left main and RCA Type 2 diabetes History of Ischemic cardiomyopathy Paroxysmal atrial fibrillation on Eliquis, currently in sinus mechanism Recent left knee surgery in October 2021 PLAN -Start IV lasix 40mg BID -Monitor renal function and electrolytes, I/Os, daily weights -Patient not on ACEI due to hypotension, we will consider hydralzaine -Continue Imdur 15mg daily and Carvedilol -GI following for anemia plan for EGD and colonoscopy today -Continue to hold Eliquis due to anemia -Continue all other cardiac medications -Further recommendations based on clinical course Nurse practitioner note has been reviewed by physician. Signing provider agrees with the documented findings, assessment, and plan of care. Objective - Vital Signs Vital signs: Vital Signs Temp 98.1 F 12/27/21 12:05 Pulse 72 12/27/21 12:05 Resp 18 12/27/21 12:05 BP 100/54 12/27/21 12:05 Pulse Ox 92 L 12/27/21 12:05 Intake & Output 12/26/21 12/27/21 12/27/21 18:59 06:59 18:59 Intake Total 240 0 Output Total 200 Balance 240 -200 Intake: Oral 240 Blood Product 0 Rc As-1 Unit 0 [id number] Output: Urine 200 Other: Voiding Method Urinal Diaper Incontinent # Voids 300 # Bowel Movements 2 6 3 - Labs CBC & Chem 7: 12/27/21 06:01 12/27/21 06:01 Labs: Abnormal Lab Results - Last 24 Hours (Table) 12/24/21 12/27/21 12/27/21 Range/Units 20:07 06:01 06:01 RBC 1.65 L (4.40-5.60) X 10*6/uL Hgb 5.6 L* (13.0-17.0) g/dL Hct 19.5 L* (39.6-50.0) % MCV 118.2 H (80.0-97.0) fL MCH 33.9 H (27.0-32.0) pg MCHC 28.7 L (32.0-37.0) g/dL RDW 23.5 H (11.5-14.5) % Immature Gran # 0.05 H (0.00-0.04) X 10*3/uL Calcium 8.3 L (8.7-10.3) mg/dL Total Bilirubin 2.60 H (0.30-1.20) mg/dL ALT <5 L (10-49) U/L Albumin 3.1 L (3.8-4.9) g/dL Albumin/Globulin Ratio 0.97 L (1.60-3.17) g/dL Crossmatch See Detail
[2021-12-27] MEDS ORDERED: PROPOFOL 10 MG/ML 20 ML VIAL IV ONE (13:15)
[2021-12-27] MEDS ORDERED: LIDOCAINE 1% INJ 10MG/ML (20 ML MDV) ONE (13:15)
[2021-12-27] MEDS ORDERED: ETOMIDATE 2 MG/ML 10 ML VIAL ONE (13:15)
[2021-12-27] MEDS ORDERED: SODIUM CHLORIDE 0.9% 500 ML 500 ML IV ONE (13:20)
--- NOTE | 2021-12-27 13:43 | P.PCN ---
Date of Procedure: 12/27/21 Procedure(s) Performed: Brief history: Patient is a pleasant 76-year-old white male admitted hospital with severe symptomatic anemia and hemoglobin of 6.3 g/dL requiring unit of blood transfusion. He denies any active GI bleed other than intermittent dark colored stools. His and scheduled for an upper endoscopy as well as colonoscopy to evaluate further. He has been on a Eliquis which has been on hold for 2 days. Procedure performed: Esophagogastroduodenoscopy with argon plasma coagulation Colonoscopy Preoperative diagnosis: Severe symptomatic anemia Anesthesia: MAC Procedure: After informed consent was obtained from the patient was brought into the endoscopy unit and IV sedation was administered by anesthesia under continuous monitoring. Initially upper endoscopy was done. The Olympus GF 160 video endoscope was inserted inserted into the mouth and esophagus intubated without any difficulty and was gradually advanced into the stomach and duodenum and carefully examined. The bulb and second part of the duodenum appeared normal. In the bulb of the duodenum there a few scattered angiectasia identified which were coagulated using argon plasma. The scope was then withdrawn into the stomach adequately insufflated with air and upon careful examination the antrum had linear areas of the telangiectasia consistent with mild gastric antral vascular ectasia and argon plasma coagulation was performed. and body, cardia and fundus appeared normal. The scope was then withdrawn into the esophagus. The GE junction was located at 40 cm to the incisors. It appeared regular with no erythema erosions or ulcerations. Rest of the esophagus appeared normal. Patient tolerated the procedure well. At this time the patient continued to remain sedation. Initial digital rectal examination was normal. Olympus CF 160 video colonoscope was then inserted into the rectum and gradually advanced to the cecum without any difficulty. Careful examination was performed as the scope was gradually being withdrawn. The prep was excellent. The cecum, ascending colon, transverse colon, descending colon, sigmoid colon and rectum appeared normal. Scattered sigmoid diverticulosis. Retroflexion was performed in the rectum and no lesions were noted. Patient tolerated the procedure well. Impression: 1. 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 Colonoscopy was within normal limits with no evidence of colorectal neoplasia Recommendations: Findings of this examination were discussed with the patient . Monitor CBC daily. Advance diet as tolerated., Resume Eliquis in 2 days .
[2021-12-27] MEDS ORDERED: LACTATED RINGERS 1,000 ML IV SCH (14:35)
[2021-12-27] MEDS: ATORVASTATIN 40 MG TAB PO SCH (21:23)
[2021-12-27] MEDS: FINASTERIDE 5 MG TAB PO SCH (21:23)
[2021-12-27] MEDS: MAGNESIUM OXIDE 400 MG TAB PO SCH (21:23)
[2021-12-28] MEDS: LEVOTHYROXINE 125 MCG TAB PO SCH (06:01)
[2021-12-28] MEDS: LEVOTHYROXINE 112 MCG TAB PO SCH (06:01)
[2021-12-28 06:56] LABS: ALT <6 U/L (4-49); AST 17 U/L (17-59); African American GFR (CKD) 75 (>60 ml/min/1.73 sqM); Albumin 3.1 g/dL (3.5-5.0); Albumin/Globulin Ratio 0.8; Alkaline Phosphatase 70 U/L (38-126); Anion Gap 6 mmol/L; Blood Urea Nitrogen 19 mg/dL (9-20); Calcium 7.9 mg/dL (8.4-10.2); Carbon Dioxide 30 mmol/L (22-30); Chloride 100 mmol/L (98-107); Globulin 3.8 g/dL; Glucose 121 mg/dL (74-99); Non-African American GFR(CKD) 65 (>60 ml/min/1.73 sqM); Sodium 136 mmol/L (137-145); Total Bilirubin 3.6 mg/dL (0.2-1.3); Total Protein 6.9 g/dL (6.3-8.2)
[2021-12-28] MEDS: SYMBICORT 80-4.5 MCG INHALER INHALATION SCH ×2 (07:14→19:07)
[2021-12-28] MEDS: carvediloL 6.25 MG TAB PO SCH ×2 (08:16→16:53)
[2021-12-28] MEDS: FUROSEMIDE 10 MG/ML 4 ML VIAL IV SCH (08:16)
[2021-12-28] MEDS: ISOSORBIDE MONONITRATE ER 15 MG TAB PO SCH (08:16)
[2021-12-28] MEDS: allopurinoL 300 MG TAB PO SCH (08:16)
[2021-12-28] MEDS: GABAPENTIN 400 MG CAP PO SCH ×3 (08:16→21:00)
[2021-12-28] MEDS: PANTOPRAZOLE 40 MG TABLET PO SCH (08:16)
[2021-12-28 10:43] LABS: Basophils # (A) 0.07 X 10*3/uL (0.00-0.10); Basophils % (A) 0.9 %; Eosinophils # (A) 0.42 X 10*3/uL (0.04-0.35); Eosinophils % (A) 5.2 %; HGB 6.5 g/dL (13.0-17.0); Immature Grans, Automated 0.6 %; Lymphocytes # (A) 1.06 X 10*3/uL (0.90-5.00); Lymphocytes % (A) 13.2 %; MCH 33.2 pg (27.0-32.0); MCHC 28.3 g/dL (32.0-37.0); MCV 117.3 fL (80.0-97.0); Mean Platelet Volume 9.5 fL (9.5-12.2); Monocytes # (A) 0.72 X 10*3/uL (0.20-1.00); NRBC Per 100 WBC 0 /100 WBCS (0.0-0.0); Neutrophils # (A) 5.71 X 10*3/uL (1.80-7.70); Neutrophils % (A) 71.1 %; Platelet Count 160 X 10*3/uL (140-440); RBC 1.96 X 10*6/uL (4.40-5.60); WBC 8.03 X 10*3/uL (4.50-10.00)
--- NOTE | 2021-12-28 13:12 | P.PN ---
Subjective Progress Note Date: 12/28/21 Principal diagnosis: Anemia 76-year-old male seen as a follow-up today with complaints of low hemoglobin and weakness. Patient has been anemic for the last 1 month's duration and has undergone blood transfusion 3 times. He has been denying any black stool or blood in his stool. Denies any abdominal pain or epigastric pain no history of peptic ulcer disease. She does take your request and that has been on hold. Plan is to proceed with EGD and colonoscopy tomorrow. His last colonoscopy reported as approximately 8 years ago in [place]. 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 He is status post argon plasma coagulation. Colonoscopy was normal. He denies any signs of GI bleed. Yesterday he did have a drop in his hemoglobin to 5.6 and received another unit of blood. Repeat hemoglobin today 6.5 Objective - Vital Signs Vital signs: Vital Signs Temp 97.4 F L 12/28/21 04:20 Pulse 64 12/28/21 04:20 Resp 18 12/28/21 04:20 BP 105/59 12/28/21 04:20 Pulse Ox 96 12/28/21 04:20 Intake & Output 12/27/21 12/28/21 12/28/21 18:59 06:59 18:59 Intake Total 410 Output Total 675 700 Balance -265 -700 Weight 94 kg Intake: IV 100 Blood Product 310 Rc As-1 Unit 310 [id number] Output: Urine 675 700 Other: Voiding Method Urinal Urinal Diaper Diaper Incontinent # Voids 300 # Bowel Movements 1 - Exam General appearance: The patient is alert, oriented, appears in no acute distress. HET: Head is normocephalic and atraumatic. Conjunctiva pink. Sclera anicteric. Neck: Supple without lymphadenopathy. Abdomen: Soft, nontender, nondistended with bowel sounds. No guarding or rigidity. Extremities: Normal skin color and turgor. No pedal edema Skin: No rashes, no jaundice Neurological: No focal deficits. Alert and oriented x 3. - Labs CBC & Chem 7: 12/28/21 06:01 12/28/21 06:01 Labs: Abnormal Lab Results - Last 24 Hours (Table) 12/24/21 12/27/21 12/28/21 Range/Units 20:07 06:01 06:01 RBC 1.65 L (4.40-5.60) X 10*6/uL Hgb 5.6 L* (13.0-17.0) g/dL Hct 19.5 L* (39.6-50.0) % MCV 118.2 H (80.0-97.0) fL MCH 33.9 H (27.0-32.0) pg MCHC 28.7 L (32.0-37.0) g/dL RDW 23.5 H (11.5-14.5) % Immature Gran # 0.05 H (0.00-0.04) X 10*3/uL Sodium 136 L (137-145) mmol/L Glucose 121 H (74-99) mg/dL Calcium 7.9 L (8.4-10.2) mg/dL Total Bilirubin 3.6 H (0.2-1.3) mg/dL Albumin 3.1 L (3.5-5.0) g/dL Crossmatch See Detail Assessment and Plan (1) Anemia Narrative/Plan: 76-year-old female who has had low blood counts for the last 3 weeks duration came to the emergency department with complaints of weakness and fatigue. He was noted to have a low hemoglobin on admission of 6.0 and is status post 1 unit of PRBC transfusion. Patient has a history of atrial fibrillation on Eliquis last dose taken this morning. He denies any previous history of GI bleed. He's had no previous history of peptic ulcer disease, no GERD, denies any NSAID use and no previous EGD. He states he had a colonoscopy approximately 8 years ago done in [place] for which he states was normal. At this time unknown etiology possibly may be due to AVM, esophagitis, gastritis, peptic ulcer disease, or other possible etiology. Will proceed with EGD and colonoscopy on Saturday. Hold Eliquis. Iron studies obtained. This patient is status post EGD and colonoscopy. 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 He is status post argon plasma coagulation. Colonoscopy was normal. Sleep 1 unit of PRBC transfusion yesterday for hemoglobin of 5.6. Current Visit: Yes Status: Acute Code(s): D64.9 - ANEMIA, UNSPECIFIED SNOMED Code(s): 804270186 (2) Hyperbilirubinemia Narrative/Plan: We'll obtain ultrasound of the liver, and Fractionated bilirubin. Bilirubin is unconjugated, possibility of Gilbert syndrome needs to be considered. Current Visit: Yes Status: Acute Code(s): E80.6 - OTHER DISORDERS OF BILIRUBIN METABOLISM SNOMED Code(s): 70298323 (3) Atrial fibrillation Narrative/Plan: Hold Eliquis, resume and 24-48 hours if hemoglobin stable Current Visit: No Status: Chronic Code(s): I48.91 - UNSPECIFIED ATRIAL FIBRILLATION SNOMED Code(s): 29381508 Plan: 1. Continue symptomatic and supportive care 2. Daily CBC, transfuse per protocol 3. Protonix 40 mg twice a day 4. Diet as tolerated 5. Patient is status post EGD and colonoscopy 6. Continue to hold Eliquis for another 24-48 hours if hemoglobin is stable. Thank you for this consultation, we will continue to follow. Dr. Sera Marie I agree with the dictator's note, documented as a scribe by Sepideh Murphy.
--- NOTE | 2021-12-28 13:32 | P.PN ---
Subjective HISTORY OF PRESENTING ILLNESS This is a pleasant 76-year-old male past medical history significant for coronary artery disease status post prior CABG with LINDSEY to LAD, PCI in the ostium of the circumflex, left main and RCA, type 2 diabetes, ischemic cardiomyopathy, paroxysmal atrial fibrillation on Eliquis, recent left knee surgery in October 2021. He follows in the office with Dr. Mac. We have been asked to see in consultation for chest pain. Patient presents to the emergency department with complaints of fatigue and generalized weakness. He had recent left knee surgery and felt he was not getting stronger. Found to have a hemoglobin of 6.0, received 1 unit PRBCs. On 12/24/21 night patient states he had an episode of chest pain. Located across his chest. Describes it as aching/tightness. He states it lasted a couple hours and resolved on its own, but did take 2 subligual nitro with some relief. He had no associated symptoms. It was non-radiating, non-exertional. He denies any symptoms of nausea, vomiting, diaphoresis, shortness of breath, lightheadedness, dizziness or palpitations. 2 Repeat EKGs with no acute changes. 4 cardiac enzymes were drawn and they were negative. He denies symptoms of shortness of breath, orthopnea, PND. His lungs are clear on exam and he has no lower extremity edema. Denies any bleeding in his urine or stool. Denies black stools 12/28/2021 Patient seen and examined at bedside, His breathing has improved, no chest pain. 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 Colonoscopy was normal, no evidence of bleeding. Repeat Echocardiogram revealed EF of 5%, LA severely dilated, moderate aortic stenosis peak/mean gradient of 41 mmHg/18 mmHg, mild mitral regurgitation, mild tricuspid regurgitation. He received 1 unit PRBC yesterday. He's currently maintained on IV Lasix 40mg BID, atorvastatin 40 mg nightly, Imdur 15 mg daily, carvedilol 6.25 mg twice a day Labs: WBC 8.0, Hemoglobin 6.5, Plt 160, sodium 136, potassium 4.0, BUN 19, serum creatinine 1.1 PHYSICAL EXAMINATION Blood pressure 101/46, heart rate 66, afebrile, saturations 94% on 3 L nasal cannula CONSTITUTIONAL: No apparent distress. HEENT: Neck Supple. No JVD. CHEST EXAMINATION: Lungs are diminished in the bases to auscultation. HEART EXAMINATION: Regular rate and rhythm. S1, S2 heard. Systolic ejection murmur at base and apex. ABDOMEN: Soft, nontender. Positive bowel sounds. EXTREMITIES: 2+ peripheral pulses, no lower extremity edema and no calf tenderness. NEUROLOGIC EXAMINATION: Patient is awake, alert and oriented x3. ASSESSMENT Chest pain, atypical, acute coronary syndrome has ruled out Acute on chronic heart failure with reduced ejection fraction Anemia status post 1 unit of PRBC transfusion Symptoms of generalized weakness and fatigue Worsening cardiomyopathy, could be related to anemia, ischemic vs non-ischemic Coronary artery disease status post prior CABG with LINDSEY to LAD, PCI in the ostium of the circumflex, left main and RCA Type 2 diabetes History of Ischemic cardiomyopathy Paroxysmal atrial fibrillation on Eliquis, currently in sinus mechanism Recent left knee surgery in October 2021 PLAN -Transition to PO lasix 40mg BID -Monitor renal function and electrolytes, I/Os, daily weights -Repeat chest xray in the morning -Patient not on ACEI due to hypotension, we will consider hydralzaine -Continue Imdur 15mg daily and Carvedilol -Continue to hold Eliquis due to anemia. Per GI ok to restart in 48 hours if hemoglobin is stable -Continue all other cardiac medications -Further recommendations based on clinical course Nurse practitioner note has been reviewed by physician. Signing provider agrees with the documented findings, assessment, and plan of care. Objective - Vital Signs Vital signs: Vital Signs Temp 98.3 F 12/28/21 12:46 Pulse 66 12/28/21 12:46 Resp 16 12/28/21 12:46 BP 101/46 12/28/21 12:46 Pulse Ox 94 L 12/28/21 12:46 Intake & Output 12/27/21 12/28/21 12/28/21 18:59 06:59 18:59 Intake Total 410 Output Total 675 700 Balance -265 -700 Weight 94 kg Intake: IV 100 Blood Product 310 Rc As-1 Unit 310 [id number] Output: Urine 675 700 Other: Voiding Method Urinal Urinal Urinal Diaper Diaper Diaper Incontinent # Voids 300 # Bowel Movements 1 - Labs CBC & Chem 7: 12/28/21 06:01 12/28/21 06:01 Labs: Abnormal Lab Results - Last 24 Hours (Table) 12/24/21 12/28/21 12/28/21 Range/Units 20:07 06:01 06:01 RBC 1.96 L (4.40-5.60) X 10*6/uL Hgb 6.5 L* (13.0-17.0) g/dL Hct 23.0 L (39.6-50.0) % MCV 117.3 H (80.0-97.0) fL MCH 33.2 H (27.0-32.0) pg MCHC 28.3 L (32.0-37.0) g/dL RDW 24.0 H (11.5-14.5) % Immature Gran # 0.05 H (0.00-0.04) X 10*3/uL Eosinophils # 0.42 H (0.04-0.35) X 10*3/uL Sodium 136 L (137-145) mmol/L Glucose 121 H (74-99) mg/dL Calcium 7.9 L (8.4-10.2) mg/dL Total Bilirubin 3.6 H (0.2-1.3) mg/dL Albumin 3.1 L (3.5-5.0) g/dL Crossmatch See Detail 12/28/21 Range/Units 11:24 RBC (4.40-5.60) X 10*6/uL Hgb (13.0-17.0) g/dL Hct (39.6-50.0) % MCV (80.0-97.0) fL MCH (27.0-32.0) pg MCHC (32.0-37.0) g/dL RDW (11.5-14.5) % Immature Gran # (0.00-0.04) X 10*3/uL Eosinophils # (0.04-0.35) X 10*3/uL Sodium (137-145) mmol/L Glucose (74-99) mg/dL Calcium (8.4-10.2) mg/dL Total Bilirubin (0.2-1.3) mg/dL Albumin (3.5-5.0) g/dL Crossmatch See Detail
[2021-12-28] MEDS: FUROSEMIDE 40 MG TAB PO SCH (16:53)
--- NOTE | 2021-12-28 19:34 | P.PN ---
Subjective Progress Note Date: 12/28/21 Patrick Banuelos, is a 76 year old male who presented to [facility] emergency room with a chief complaint of generalized weakness He was evaluated in the emergency room vital examination on presentation revealed a temperature of 97.7 pulse 65 respiration 18 blood pressure 105/55 pulse ox 95% on room air Laboratory data revealed a white blood count of 6.5 hemoglobin 6.0 platelet count 192 sodium 136 potassium 4.4 chloride 105 CO2 22 BUN 25 creatinine 1.01 glucose 143 Testing in the emergency room revealed EKG done in the emergency room revealed sinus rhythm with right bundle branch block and left anterior fascicular block, chest x-ray done in the emergency room revealed pulmonary congestion and mild heart failure and cardiomegaly. Patient was admitted to medical floor for further evaluation and treatment, gastroenterology consultation was requested 1 unit of red blood cell transfusion was given in the emergency room On 12/26/2020 patient was seen and examined on the medical floor he is alert and oriented 3 in no apparent distress there is no fever or chills no headache or dizziness no chest pain no shortness of breath no cough no nausea or vomiting no abdominal pain no diarrhea and no urinary symptoms he is scheduled tomorrow for EGD and colonoscopy and will receive preparation this afternoon, hemoglobin today is 6.8 will continue to monitor patient's received 1 unit of red blood cell transfusion in the emergency room On 12/27/2021 patient is alert and oriented 3. Plans for colonoscopy and EGD today per GI services labs currently pending cardiology and GI services following. Current vitals temp 97.9, pulse rate 69, respiratory rate 18, blood pressure 119/60. Patient stating 99% on 2 L. Repeat labs ordered for a.m. On 12/28/2021 patient was seen and examined on the medical floor he is alert and oriented 3 in no apparent distress there is no fever or chills no headache or dizziness no chest pain no shortness of breath no cough no nausea or vomiting no abdominal pain no diarrhea and no urinary symptoms. Hemoglobin today is down again to 6.51 unit of red blood cell transfusion was ordered. Yesterday patient underwent EGD and colonoscopy with Dr. 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 At this time will continue supportive care, advised to increase ambulation will consult physical therapy and occupational therapy will recheck labs in a.m. Objective - Vital Signs Vital signs: Vital Signs Temp 97.6 F 12/28/21 17:30 Pulse 62 12/28/21 17:30 Resp 18 12/28/21 17:30 BP 98/59 12/28/21 17:30 Pulse Ox 94 L 12/28/21 17:30 Intake & Output 12/28/21 12/28/21 12/29/21 06:59 18:59 06:59 Intake Total 310 Output Total 700 225 Balance -390 -225 Weight 94 kg Intake: Blood Product 310 Rc As-1 Unit 310 [id number] Output: Urine 700 225 Other: Voiding Method Urinal Urinal Diaper Diaper - Exam In general patient is alert and oriented x 3 in no distress HEENT head normocephalic and atraumatic Neck is supple no JVD no goiter no lymphadenopathy no carotid bruit Chest examination is clear to auscultation no crackles no wheezing Cardiac exam reveals regular heart sounds S1 and S2 no gallops no murmurs Abdomen is soft nontender no organomegaly with normal bowel sounds Extremity exam reveals no edema no cyanosis or clubbing Neurological examination reveals no gross focal deficits - Labs CBC & Chem 7: 12/28/21 06:01 12/28/21 06:01 Labs: Abnormal Lab Results - Last 24 Hours (Table) 12/28/21 12/28/21 12/28/21 Range/Units 06:01 06:01 11:24 RBC 1.96 L (4.40-5.60) X 10*6/uL Hgb 6.5 L* (13.0-17.0) g/dL Hct 23.0 L (39.6-50.0) % MCV 117.3 H (80.0-97.0) fL MCH 33.2 H (27.0-32.0) pg MCHC 28.3 L (32.0-37.0) g/dL RDW 24.0 H (11.5-14.5) % Immature Gran # 0.05 H (0.00-0.04) X 10*3/uL Eosinophils # 0.42 H (0.04-0.35) X 10*3/uL Sodium 136 L (137-145) mmol/L Glucose 121 H (74-99) mg/dL Calcium 7.9 L (8.4-10.2) mg/dL Total Bilirubin 3.6 H (0.2-1.3) mg/dL Albumin 3.1 L (3.5-5.0) g/dL Crossmatch See Detail Assessment and Plan Plan: Anemia with hemoglobin of 6.0 on presentation, patient received 1 unit of red blood cell transfusion in the emergency room Elevated bilirubin with mild jaundice, with normal AST ALT and alkaline phosphatase, could be related to Gilbert's syndrome, hepatitis B and C profile and liver ultrasound ordered Underlying history of hypertension Underlying history of hyperlipidemia Underlying history of atrial fibrillation maintained on adequate Underlying history of gout Underlying history of [id number]-olkjlesrw diabetes mellitus Episode of chest pain after presentation Previous history of TIA At this time patient is admitted to medical floor and gastroenterology consultation was requested 1 unit of red blood cell transfusion was given Will monitor hemoglobin closely Hold Eliquis at this time Cardiology services following Obtain echo cardiogram Plans for EGD and colonoscopy today 12/27/2021 repeat Labs ordered
[2021-12-28] MEDS: ATORVASTATIN 40 MG TAB PO SCH (21:00)
[2021-12-28] MEDS: FINASTERIDE 5 MG TAB PO SCH (21:00)
[2021-12-28] MEDS: MAGNESIUM OXIDE 400 MG TAB PO SCH (21:00)
[2021-12-29] MEDS: LEVOTHYROXINE 125 MCG TAB PO SCH (05:45)
[2021-12-29] MEDS: LEVOTHYROXINE 112 MCG TAB PO SCH (05:45)
[2021-12-29 06:59] LABS: ALT <6 U/L (4-49); AST 16 U/L (17-59); African American GFR (CKD) 78 (>60 ml/min/1.73 sqM); Albumin/Globulin Ratio 0.8; Alkaline Phosphatase 72 U/L (38-126); Anion Gap 5 mmol/L; Blood Urea Nitrogen 19 mg/dL (9-20); Calcium 7.9 mg/dL (8.4-10.2); Carbon Dioxide 33 mmol/L (22-30); Chloride 100 mmol/L (98-107); Globulin 3.9 g/dL; Glucose 104 mg/dL (74-99); Magnesium 1.5 mg/dL (1.6-2.3); Non-African American GFR(CKD) 67 (>60 ml/min/1.73 sqM); Potassium 3.9 mmol/L (3.5-5.1); Sodium 138 mmol/L (137-145); Total Bilirubin 4.5 mg/dL (0.2-1.3); Total Protein 6.9 g/dL (6.3-8.2)
[2021-12-29] MEDS: SYMBICORT 80-4.5 MCG INHALER INHALATION SCH ×2 (07:37→19:47)
--- NOTE | 2021-12-29 08:09 | XR ---
EXAMINATION TYPE: XR chest 1V portable DATE OF EXAM: 12/29/2021 HISTORY: Shortness of breath. COMPARISON: 12/27/2021 TECHNIQUE: Single view of the chest is submitted. FINDINGS: Demonstrated are scattered senescent parenchymal change. Continued cardiomegaly pulmonary venous congestion and scattered infiltrates. Hilar and mediastinal structures are within normal limits. Degenerative changes are seen of the dorsal spine. IMPRESSION: 1. Continued cardiomegaly pulmonary venous congestion and scattered infiltrates.
[2021-12-29] MEDS: FUROSEMIDE 40 MG TAB PO SCH ×2 (08:16→15:58)
[2021-12-29] MEDS: PANTOPRAZOLE 40 MG TABLET PO SCH (08:16)
[2021-12-29] MEDS: allopurinoL 300 MG TAB PO SCH (08:16)
[2021-12-29] MEDS: GABAPENTIN 400 MG CAP PO SCH ×3 (08:16→20:57)
[2021-12-29] MEDS: carvediloL 6.25 MG TAB PO SCH ×2 (08:16→18:02)
[2021-12-29] MEDS: ISOSORBIDE MONONITRATE ER 15 MG TAB PO SCH (08:16)
[2021-12-29] MEDS ORDERED: Magnesium Replacement Protocol 1 EACH MISC MISCELLANE PRN (08:52)
[2021-12-29 09:16] LABS: Basophils # (A) 0.05 X 10*3/uL (0.00-0.10); Basophils % (A) 0.8 %; Eosinophils # (A) 0.44 X 10*3/uL (0.04-0.35); Eosinophils % (A) 7.2 %; HCT 24.1 % (39.6-50.0); HGB 7.1 g/dL (13.0-17.0); Immature Grans, Automated 0.3 %; Lymphocytes # (A) 1.03 X 10*3/uL (0.90-5.00); Lymphocytes % (A) 16.8 %; MCH 33.2 pg (27.0-32.0); MCHC 29.5 g/dL (32.0-37.0); MCV 112.6 fL (80.0-97.0); Mean Platelet Volume 9.2 fL (9.5-12.2); Monocytes # (A) 0.68 X 10*3/uL (0.20-1.00); Monocytes % (A) 11.1 %; NRBC Per 100 WBC 0 /100 WBCS (0.0-0.0); Neutrophils # (A) 3.92 X 10*3/uL (1.80-7.70); Neutrophils % (A) 63.8 %; Platelet Count 155 X 10*3/uL (140-440); RBC 2.14 X 10*6/uL (4.40-5.60); RDW 23.8 % (11.5-14.5); WBC 6.14 X 10*3/uL (4.50-10.00)
[2021-12-29] MEDS: MAGNESIUM SULFATE-D5W PMX 1 GM in DEXTROSE/WATER 1 100ML.BAG IVPB SCH ×2 (09:44→11:27)
--- NOTE | 2021-12-29 09:47 | P.PN ---
Subjective Patrick Banuelos, is a 76 year old male who presented to [facility] emergency room with a chief complaint of generalized weakness He was evaluated in the emergency room vital examination on presentation revealed a temperature of 97.7 pulse 65 respiration 18 blood pressure 105/55 pulse ox 95% on room air Laboratory data revealed a white blood count of 6.5 hemoglobin 6.0 platelet count 192 sodium 136 potassium 4.4 chloride 105 CO2 22 BUN 25 creatinine 1.01 glucose 143 Testing in the emergency room revealed EKG done in the emergency room revealed sinus rhythm with right bundle branch block and left anterior fascicular block, chest x-ray done in the emergency room revealed pulmonary congestion and mild heart failure and cardiomegaly. Patient was admitted to medical floor for further evaluation and treatment, gastroenterology consultation was requested 1 unit of red blood cell transfusion was given in the emergency room On 12/26/2020 patient was seen and examined on the medical floor he is alert and oriented 3 in no apparent distress there is no fever or chills no headache or dizziness no chest pain no shortness of breath no cough no nausea or vomiting no abdominal pain no diarrhea and no urinary symptoms he is scheduled tomorrow for EGD and colonoscopy and will receive preparation this afternoon, hemoglobin today is 6.8 will continue to monitor patient's received 1 unit of red blood cell transfusion in the emergency room On 12/27/2021 patient is alert and oriented 3. Plans for colonoscopy and EGD today per GI services labs currently pending cardiology and GI services following. Current vitals temp 97.9, pulse rate 69, respiratory rate 18, blood pressure 119/60. Patient stating 99% on 2 L. Repeat labs ordered for a.m. On 12/28/2021 patient was seen and examined on the medical floor he is alert and oriented 3 in no apparent distress there is no fever or chills no headache or dizziness no chest pain no shortness of breath no cough no nausea or vomiting no abdominal pain no diarrhea and no urinary symptoms. Hemoglobin today is down again to 6.51 unit of red blood cell transfusion was ordered. Yesterday patient underwent EGD and colonoscopy with Dr. 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 At this time will continue supportive care, advised to increase ambulation will consult physical therapy and occupational therapy will recheck labs in a.m. On 12/29/2021 patient is alert and oriented 3. Hemoglobin today 7.1. Did discuss case with GI team. Okay to resume eliquis and monitor hemoglobin. No signs of active bleeding. Patient denies chest pain or shortness of breath. Patient denies nausea vomiting or diarrhea. Patient denies any urinary burning or frequency. Total bilirubin also elevated at 4.5. 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 Repeat labs ordered for a.m. Objective - Vital Signs Vital signs: Vital Signs Temp 97.8 F 12/29/21 05:00 Pulse 61 12/29/21 08:16 Resp 20 12/29/21 05:00 BP 105/66 12/29/21 08:16 Pulse Ox 96 12/29/21 08:16 Intake & Output 12/28/21 12/29/21 12/29/21 18:59 06:59 18:59 Intake Total 310 Output Total 700 225 Balance -390 -225 Weight 92.5 kg Intake: Blood Product 310 Rc As-1 Unit 310 [id number] Output: Urine 700 225 Other: Voiding Method Urinal Urinal Diaper Diaper - Exam In general patient is alert and oriented x 3 in no distress HEENT head normocephalic and atraumatic Neck is supple no JVD no goiter no lymphadenopathy no carotid bruit Chest examination is clear to auscultation no crackles no wheezing Cardiac exam reveals regular heart sounds S1 and S2 no gallops no murmurs Abdomen is soft nontender no organomegaly with normal bowel sounds Extremity exam reveals no edema no cyanosis or clubbing Neurological examination reveals no gross focal deficits - Labs CBC & Chem 7: 12/29/21 06:07 12/29/21 06:07 Labs: Abnormal Lab Results - Last 24 Hours (Table) 12/28/21 12/28/21 12/29/21 Range/Units 06:01 11:24 06:07 RBC 1.96 L (4.40-5.60) X 10*6/uL Hgb 6.5 L* (13.0-17.0) g/dL Hct 23.0 L (39.6-50.0) % MCV 117.3 H (80.0-97.0) fL MCH 33.2 H (27.0-32.0) pg MCHC 28.3 L (32.0-37.0) g/dL RDW 24.0 H (11.5-14.5) % MPV (9.5-12.2) fL Immature Gran # 0.05 H (0.00-0.04) X 10*3/uL Eosinophils # 0.42 H (0.04-0.35) X 10*3/uL Carbon Dioxide 33 H (22-30) mmol/L Glucose 104 H (74-99) mg/dL Calcium 7.9 L (8.4-10.2) mg/dL Magnesium 1.5 L (1.6-2.3) mg/dL Total Bilirubin 4.5 H (0.2-1.3) mg/dL AST 16 L (17-59) U/L Albumin 3.0 L (3.5-5.0) g/dL Crossmatch See Detail 12/29/21 Range/Units 06:07 RBC 2.14 L (4.40-5.60) X 10*6/uL Hgb 7.1 L (13.0-17.0) g/dL Hct 24.1 L (39.6-50.0) % MCV 112.6 H (80.0-97.0) fL MCH 33.2 H (27.0-32.0) pg MCHC 29.5 L (32.0-37.0) g/dL RDW 23.8 H (11.5-14.5) % MPV 9.2 L (9.5-12.2) fL Immature Gran # (0.00-0.04) X 10*3/uL Eosinophils # 0.44 H (0.04-0.35) X 10*3/uL Carbon Dioxide (22-30) mmol/L Glucose (74-99) mg/dL Calcium (8.4-10.2) mg/dL Magnesium (1.6-2.3) mg/dL Total Bilirubin (0.2-1.3) mg/dL AST (17-59) U/L Albumin (3.5-5.0) g/dL Crossmatch Assessment and Plan Plan: Anemia with hemoglobin of 6.0 on presentation, patient received 1 unit of red blood cell transfusion in the emergency room. 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 Status post argon plasma coagulation. Colonoscopy was normal. Per GI services okay to resume eliquis and monitor hemoglobin Elevated bilirubin with mild jaundice, with normal AST ALT and alkaline phosphatase, could be related to Gilbert's syndrome, hepatitis B and C profile and liver ultrasound ordered. 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 Cardiology services are following. 2-D echo completed showing an EF of 20-25% At this time patient is admitted to medical floor and gastroenterology consultation was requested 1 unit of red blood cell transfusion was given Will monitor hemoglobin closely 12/29/2021 eliquis resumed per GI recommendation Plans for EGD and colonoscopy completed on 12/27/2021 repeat Labs ordered
--- NOTE | 2021-12-29 11:35 | P.PN ---
Subjective HISTORY OF PRESENTING ILLNESS This is a pleasant 76-year-old male past medical history significant for coronary artery disease status post prior CABG with LINDSEY to LAD, PCI in the ostium of the circumflex, left main and RCA, type 2 diabetes, ischemic cardiomyopathy, paroxysmal atrial fibrillation on Eliquis, recent left knee surgery in October 2021. He follows in the office with Dr. Mac. We have been asked to see in consultation for chest pain. Patient presents to the emergency department with complaints of fatigue and generalized weakness. He had recent left knee surgery and felt he was not getting stronger. Found to have a hemoglobin of 6.0, received 1 unit PRBCs. On 12/24/21 night patient states he had an episode of chest pain. Located across his chest. Describes it as aching/tightness. He states it lasted a couple hours and resolved on its own, but did take 2 subligual nitro with some relief. He had no associated symptoms. It was non-radiating, non-exertional. He denies any symptoms of nausea, vomiting, diaphoresis, shortness of breath, lightheadedness, dizziness or palpitations. 2 Repeat EKGs with no acute changes. 4 cardiac enzymes were drawn and they were negative. He denies symptoms of shortness of breath, orthopnea, PND. His lungs are clear on exam and he has no lower extremity edema. Denies any bleeding in his urine or stool. Denies black stools 12/27/2021: patient underwent EGD and colonoscopy findings antral ectasia and 12 no angioedema ectasia without any bleeding, status post argon plasma coagulation. Colonoscopy was normal, no evidence of bleeding. 12/29/2021 Patient seen and examined at bedside, His breathing has improved, no shortness of breath and no chest pain. Yesterday the Repeat Echocardiogram revealed EF of 5%, LA severely dilated, moderate aortic stenosis peak/mean gradient of 41 mmHg/18 mmHg, mild mitral regurgitation, mild tricuspid regurgitation. Per GI services okay to resume eliquis and monitor hemoglobin. He has been weaned to room air. He's currently maintained on PO Lasix 40mg BID, atorvastatin 40 mg nightly, Imdur 15 mg daily, carvedilol 6.25 mg twice a day Labs: WBC 6.1, Hemoglobin 7.1 Plt 155, sodium 138, potassium 3.9, BUN 19, serum creatinine 1.07, mag 1.5. PHYSICAL EXAMINATION Blood pressure 105/66, heart rate 61, afebrile, saturations 96% on room air CONSTITUTIONAL: No apparent distress. HEENT: Neck Supple. No JVD. CHEST EXAMINATION: Lungs are diminished in the bases to auscultation. HEART EXAMINATION: Regular rate and rhythm. S1, S2 heard. Systolic ejection murmur at base and apex. ABDOMEN: Soft, nontender. Positive bowel sounds. EXTREMITIES: 2+ peripheral pulses, no lower extremity edema and no calf tenderness. NEUROLOGIC EXAMINATION: Patient is awake, alert and oriented x3. ASSESSMENT Chest pain, atypical, acute coronary syndrome has ruled out Acute on chronic heart failure with reduced ejection fraction Anemia status post 3 units of PRBC transfusion Symptoms of generalized weakness and fatigue Worsening cardiomyopathy, could be related to anemia, ischemic vs non-ischemic Coronary artery disease status post prior CABG with LINDSEY to LAD, PCI in the ostium of the circumflex, left main and RCA Type 2 diabetes History of Ischemic cardiomyopathy Paroxysmal atrial fibrillation on Eliquis, currently in sinus mechanism Recent left knee surgery in October 2021 PLAN -Patient appears euvolemic on exam, continue PO lasix 40mg BID -Patient not on ACEI due to hypotension -Continue Carvedilol, Imdur 15mg daily and statin -Per GI services okay to resume eliquis and monitor hemoglobin, possibly discharge tomorrow pending hemoglobin. If anemia worsens, ok to continue to hold Eliquis on discharge and follow up in the office with Dr. Mac. -Further management of cardiomyopathy will be addressed in the outpatient setting. Do not recommend repeat cardiac catheterization at this time due to anemia. -We will follow the patient as needed. Patient to follow up with Dr. Mac on 01/03/2022 in the office. Nurse practitioner note has been reviewed by physician. Signing provider agrees with the documented findings, assessment, and plan of care. Objective - Vital Signs Vital signs: Vital Signs Temp 97.8 F 12/29/21 05:00 Pulse 61 12/29/21 08:16 Resp 20 12/29/21 05:00 BP 105/66 12/29/21 08:16 Pulse Ox 96 12/29/21 08:16 Intake & Output 12/28/21 12/29/21 12/29/21 18:59 06:59 18:59 Intake Total 310 Output Total 700 225 Balance -390 -225 Weight 92.5 kg Intake: Blood Product 310 Rc As-1 Unit 310 [id number] Output: Urine 700 225 Other: Voiding Method Urinal Urinal Diaper Diaper - Labs CBC & Chem 7: 12/29/21 06:07 12/29/21 06:07 Labs: Abnormal Lab Results - Last 24 Hours (Table) 12/28/21 12/29/21 12/29/21 Range/Units 11:24 06:07 06:07 RBC 2.14 L (4.40-5.60) X 10*6/uL Hgb 7.1 L (13.0-17.0) g/dL Hct 24.1 L (39.6-50.0) % MCV 112.6 H (80.0-97.0) fL MCH 33.2 H (27.0-32.0) pg MCHC 29.5 L (32.0-37.0) g/dL RDW 23.8 H (11.5-14.5) % MPV 9.2 L (9.5-12.2) fL Eosinophils # 0.44 H (0.04-0.35) X 10*3/uL Carbon Dioxide 33 H (22-30) mmol/L Glucose 104 H (74-99) mg/dL Calcium 7.9 L (8.4-10.2) mg/dL Magnesium 1.5 L (1.6-2.3) mg/dL Total Bilirubin 4.5 H (0.2-1.3) mg/dL AST 16 L (17-59) U/L Albumin 3.0 L (3.5-5.0) g/dL Crossmatch See Detail
--- NOTE | 2021-12-29 12:30 | P.PN ---
Subjective Progress Note Date: 12/29/21 Principal diagnosis: Anemia 76-year-old male seen as a follow-up today with complaints of low hemoglobin and weakness. Patient has been anemic for the last 1 month's duration and has undergone blood transfusion 3 times. He has been denying any black stool or blood in his stool. Denies any abdominal pain or epigastric pain no history of peptic ulcer disease. She does take your request and that has been on hold. Plan is to proceed with EGD and colonoscopy tomorrow. His last colonoscopy reported as approximately 8 years ago in [place]. 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 He is status post argon plasma coagulation. Colonoscopy was normal. He denies any signs of GI bleed. He states overall he is doing well. Repeat hemoglobin today 7.1 Objective - Vital Signs Vital signs: Vital Signs Temp 97.8 F 12/29/21 05:00 Pulse 61 12/29/21 08:16 Resp 20 12/29/21 05:00 BP 105/66 12/29/21 08:16 Pulse Ox 96 12/29/21 08:16 Intake & Output 12/28/21 12/29/21 12/29/21 18:59 06:59 18:59 Intake Total 310 Output Total 700 225 Balance -390 -225 Weight 92.5 kg Intake: Blood Product 310 Rc As-1 Unit 310 [id number] Output: Urine 700 225 Other: Voiding Method Urinal Urinal Diaper Diaper - Exam General appearance: The patient is alert, oriented, appears in no acute distress. HET: Head is normocephalic and atraumatic. Conjunctiva pink. Sclera anicteric. Neck: Supple without lymphadenopathy. Abdomen: Soft, nontender, nondistended with bowel sounds. No guarding or rigidity. Extremities: Normal skin color and turgor. No pedal edema Skin: No rashes, no jaundice Neurological: No focal deficits. Alert and oriented x 3. - Labs CBC & Chem 7: 12/29/21 06:07 12/29/21 06:07 Labs: Abnormal Lab Results - Last 24 Hours (Table) 12/28/21 12/28/21 12/29/21 Range/Units 06:01 11:24 06:07 RBC 1.96 L (4.40-5.60) X 10*6/uL Hgb 6.5 L* (13.0-17.0) g/dL Hct 23.0 L (39.6-50.0) % MCV 117.3 H (80.0-97.0) fL MCH 33.2 H (27.0-32.0) pg MCHC 28.3 L (32.0-37.0) g/dL RDW 24.0 H (11.5-14.5) % Immature Gran # 0.05 H (0.00-0.04) X 10*3/uL Eosinophils # 0.42 H (0.04-0.35) X 10*3/uL Carbon Dioxide 33 H (22-30) mmol/L Glucose 104 H (74-99) mg/dL Calcium 7.9 L (8.4-10.2) mg/dL Magnesium 1.5 L (1.6-2.3) mg/dL Total Bilirubin 4.5 H (0.2-1.3) mg/dL AST 16 L (17-59) U/L Albumin 3.0 L (3.5-5.0) g/dL Crossmatch See Detail Assessment and Plan (1) Anemia Narrative/Plan: 76-year-old female who has had low blood counts for the last 3 weeks duration came to the emergency department with complaints of weakness and fatigue. He was noted to have a low hemoglobin on admission of 6.0 and is status post 1 unit of PRBC transfusion. Patient has a history of atrial fibrillation on Eliquis last dose taken this morning. He denies any previous history of GI bleed. He's had no previous history of peptic ulcer disease, no GERD, denies any NSAID use and no previous EGD. He states he had a colonoscopy approximately 8 years ago done in [place] for which he states was normal. At this time unknown etiology possibly may be due to AVM, esophagitis, gastritis, peptic ulcer disease, or other possible etiology. Will proceed with EGD and colonoscopy on Saturday. Hold Eliquis. Iron studies obtained. This patient is status post EGD and colonoscopy. 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 He is status post argon plasma coagulation. Colonoscopy was normal. Sleep 1 unit of PRBC transfusion yesterday for hemoglobin of 5.6. Current Visit: Yes Status: Acute Code(s): D64.9 - ANEMIA, UNSPECIFIED SNOMED Code(s): 078231097 (2) Hyperbilirubinemia Narrative/Plan: We'll obtain ultrasound of the liver, and Fractionated bilirubin. Bilirubin is unconjugated, possibility of Gilbert syndrome needs to be considered. Patient can follow-up with gastroenterology as needed Current Visit: Yes Status: Acute Code(s): E80.6 - OTHER DISORDERS OF BILIRUBIN METABOLISM SNOMED Code(s): 68313485 (3) Atrial fibrillation Narrative/Plan: Hold Eliquis, resume and 24-48 hours if hemoglobin stable Current Visit: No Status: Chronic Code(s): I48.91 - UNSPECIFIED ATRIAL FIBRILLATION SNOMED Code(s): 80781479 Plan: 1. Continue symptomatic and supportive care 2. Protonix 40 mg twice a day 3. Diet as tolerated 4. Patient is status post EGD and colonoscopy 5. May resume Eliquis Patient is cleared for discharge from gastroenterology was otherwise medically stable. Thank you for allowing us to participate in the care of the patient, the GI service will sign off, gastroenterology will not be available at the hospital this weekend and through next week. If further evaluation by gastroenterology is required the patient will need transfer as per the primary team's discretion. Dr. Sera Marie I agree with the dictator's note, documented as a scribe by Sepideh Murphy.
[2021-12-29 18:49] LABS: Appearance,Urine Clear (Clear); Bilirubin,Urine Negative (Negative); Blood,Urine Negative (Negative); Color,Urine Yellow; Glucose,Urine (UA) Negative (Negative); Ketones,Urine Negative (Negative); Leukocyte Esterase,Urine Negative (Negative); Nitrite,Urine Negative (Negative); Protein,Urine Negative (Negative); Specific Gravity,Urine 1.009 (1.001-1.035); Urobilinogen,Urine <2.0 mg/dL (<2.0)
[2021-12-29] MEDS: APIXABAN 5 MG TAB PO SCH (20:57)
[2021-12-29] MEDS: ATORVASTATIN 40 MG TAB PO SCH (20:57)
[2021-12-29] MEDS: FINASTERIDE 5 MG TAB PO SCH (20:57)
[2021-12-29] MEDS: MAGNESIUM OXIDE 400 MG TAB PO SCH (20:57)
[2021-12-30] MEDS: LEVOTHYROXINE 112 MCG TAB PO SCH (05:40)
[2021-12-30] MEDS: LEVOTHYROXINE 125 MCG TAB PO SCH (05:40)
[2021-12-30] MEDS: SYMBICORT 80-4.5 MCG INHALER INHALATION SCH ×2 (07:34→19:58)
[2021-12-30] MEDS: APIXABAN 5 MG TAB PO SCH ×2 (09:17→20:48)
[2021-12-30] MEDS: PANTOPRAZOLE 40 MG TABLET PO SCH (09:17)
[2021-12-30] MEDS: GABAPENTIN 400 MG CAP PO SCH ×3 (09:17→21:10)
[2021-12-30] MEDS: FUROSEMIDE 40 MG TAB PO SCH ×2 (09:17→17:51)
[2021-12-30] MEDS: allopurinoL 300 MG TAB PO SCH (09:17)
[2021-12-30 11:51] LABS: Basophils # (A) 0.04 X 10*3/uL (0.00-0.10); Basophils % (A) 0.7 %; Eosinophils # (A) 0.44 X 10*3/uL (0.04-0.35); Eosinophils % (A) 8.1 %; HGB 6.8 g/dL (13.0-17.0); Immature Grans, Automated 0.5 %; Lymphocytes % (A) 18.3 %; MCH 33.3 pg (27.0-32.0); MCHC 29.6 g/dL (32.0-37.0); MCV 112.7 fL (80.0-97.0); Mean Platelet Volume 9.5 fL (9.5-12.2); Monocytes % (A) 9.2 %; NRBC Per 100 WBC 0 /100 WBCS (0.0-0.0); Neutrophils # (A) 3.45 X 10*3/uL (1.80-7.70); Neutrophils % (A) 63.2 %; Platelet Count 157 X 10*3/uL (140-440); RBC 2.04 X 10*6/uL (4.40-5.60); RDW 23.7 % (11.5-14.5); WBC 5.46 X 10*3/uL (4.50-10.00)
[2021-12-30 12:00] LABS: ALT <5 U/L (10-49); AST 14 U/L (14-35); African American GFR (CKD) 77.2 (60.0-200.0); Albumin 3.2 g/dL (3.8-4.9); Albumin/Globulin Ratio 0.97 (1.60-3.17); Alkaline Phosphatase 74 U/L (41-126); BUN/Creat Ratio 16.73 Ratio (12.00-20.00); Blood Urea Nitrogen 17.9 mg/dL (9.0-27.0); Calcium 8.1 mg/dL (8.7-10.3); Carbon Dioxide 30.4 mmol/L (20.0-27.5); Chloride 100 mmol/L (96-109); Globulin 3.2 g/dL (1.6-3.3); Glucose 104 mg/dL (70-110); Non-African American GFR(CKD) 66.6 (60.0-200.0); Sodium 138 mmol/L (135-145); Total Protein 6.4 g/dL (6.2-8.2)
--- NOTE | 2021-12-30 12:17 | P.PN ---
Subjective Progress Note Date: 12/30/21 Patrick Banuelos, is a 76 year old male who presented to [facility] emergency room with a chief complaint of generalized weakness He was evaluated in the emergency room vital examination on presentation revealed a temperature of 97.7 pulse 65 respiration 18 blood pressure 105/55 pulse ox 95% on room air Laboratory data revealed a white blood count of 6.5 hemoglobin 6.0 platelet count 192 sodium 136 potassium 4.4 chloride 105 CO2 22 BUN 25 creatinine 1.01 glucose 143 Testing in the emergency room revealed EKG done in the emergency room revealed sinus rhythm with right bundle branch block and left anterior fascicular block, chest x-ray done in the emergency room revealed pulmonary congestion and mild heart failure and cardiomegaly. Patient was admitted to medical floor for further evaluation and treatment, gastroenterology consultation was requested 1 unit of red blood cell transfusion was given in the emergency room On 12/26/2020 patient was seen and examined on the medical floor he is alert and oriented 3 in no apparent distress there is no fever or chills no headache or dizziness no chest pain no shortness of breath no cough no nausea or vomiting no abdominal pain no diarrhea and no urinary symptoms he is scheduled tomorrow for EGD and colonoscopy and will receive preparation this afternoon, hemoglobin today is 6.8 will continue to monitor patient's received 1 unit of red blood cell transfusion in the emergency room On 12/27/2021 patient is alert and oriented 3. Plans for colonoscopy and EGD today per GI services labs currently pending cardiology and GI services following. Current vitals temp 97.9, pulse rate 69, respiratory rate 18, blood pressure 119/60. Patient stating 99% on 2 L. Repeat labs ordered for a.m. On 12/28/2021 patient was seen and examined on the medical floor he is alert and oriented 3 in no apparent distress there is no fever or chills no headache or dizziness no chest pain no shortness of breath no cough no nausea or vomiting no abdominal pain no diarrhea and no urinary symptoms. Hemoglobin today is down again to 6.51 unit of red blood cell transfusion was ordered. Yesterday patient underwent EGD and colonoscopy with Dr. 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 At this time will continue supportive care, advised to increase ambulation will consult physical therapy and occupational therapy will recheck labs in a.m. On 12/29/2021 patient is alert and oriented 3. Hemoglobin today 7.1. Did discuss case with GI team. Okay to resume eliquis and monitor hemoglobin. No signs of active bleeding. Patient denies chest pain or shortness of breath. Patient denies nausea vomiting or diarrhea. Patient denies any urinary burning or frequency. Total bilirubin also elevated at 4.5. 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 Repeat labs ordered for a.m. On 12/30/2021 patient was seen and examined on the medical floor he is alert and oriented 3 in no apparent distress there is no fever or chills no headache or dizziness no chest pain no shortness of breath no cough no nausea or vomiting no abdominal pain no diarrhea and no urinary symptoms, he is tolerating diet well, hemoglobin is down to 6.8 today, at this time he does not qualify for red blood cell transfusion, will give IV iron infusion today and recheck labs in a.m. Objective - Vital Signs Vital signs: Vital Signs Temp 98.1 F 12/30/21 04:46 Pulse 59 L 12/30/21 09:12 Resp 16 12/30/21 04:46 BP 97/54 12/30/21 09:12 Pulse Ox 97 12/30/21 09:12 Intake & Output 12/29/21 12/30/21 12/30/21 18:59 06:59 18:59 Intake Total 500 Output Total 400 Balance 100 Weight 93.5 kg Intake: Oral 500 Output: Urine 400 Other: Voiding Method Urinal Urinal Urinal Diaper Diaper Diaper # Voids 2 - Exam In general patient is alert and oriented x 3 in no distress HEENT head normocephalic and atraumatic Neck is supple no JVD no goiter no lymphadenopathy no carotid bruit Chest examination is clear to auscultation no crackles no wheezing Cardiac exam reveals regular heart sounds S1 and S2 no gallops no murmurs Abdomen is soft nontender no organomegaly with normal bowel sounds Extremity exam reveals no edema no cyanosis or clubbing Neurological examination reveals no gross focal deficits - Labs CBC & Chem 7: 12/30/21 06:46 12/30/21 06:46 Labs: Abnormal Lab Results - Last 24 Hours (Table) 12/30/21 12/30/21 Range/Units 06:46 06:46 RBC 2.04 L (4.40-5.60) X 10*6/uL Hgb 6.8 L* (13.0-17.0) g/dL Hct 23.0 L (39.6-50.0) % MCV 112.7 H (80.0-97.0) fL MCH 33.3 H (27.0-32.0) pg MCHC 29.6 L (32.0-37.0) g/dL RDW 23.7 H (11.5-14.5) % Eosinophils # 0.44 H (0.04-0.35) X 10*3/uL Carbon Dioxide 30.4 H (20.0-27.5) mmol/L Anion Gap 7.80 L (10.00-18.00) mmol/L Calcium 8.1 L (8.7-10.3) mg/dL Total Bilirubin 3.80 H (0.30-1.20) mg/dL ALT <5 L (10-49) U/L Albumin 3.2 L (3.8-4.9) g/dL Albumin/Globulin Ratio 0.97 L (1.60-3.17) g/dL Assessment and Plan Plan: Anemia with hemoglobin of 6.0 on presentation, patient received 1 unit of red blood cell transfusion in the emergency room. 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 Status post argon plasma coagulation. Colonoscopy was normal. Per GI services okay to resume eliquis and monitor hemoglobin Elevated bilirubin with mild jaundice, with normal AST ALT and alkaline phosphatase, could be related to Gilbert's syndrome, hepatitis B and C profile and liver ultrasound ordered. 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 Cardiology services are following. 2-D echo completed showing an EF of 20-25% At this time patient is admitted to medical floor and gastroenterology consultation was requested 1 unit of red blood cell transfusion was given Will monitor hemoglobin closely 12/29/2021 eliquis resumed per GI recommendation Plans for EGD and colonoscopy completed on 12/27/2021 repeat Labs ordered
[2021-12-30] MEDS ORDERED: SODIUM FERRIC GLUCONAT-SUCROSE 125 MG in SODIUM CHLORIDE 0.9% 100 ML IVPB ONE (12:30)
[2021-12-30] MEDS: carvediloL 6.25 MG TAB PO SCH ×2 (12:36→17:50)
[2021-12-30] MEDS: ISOSORBIDE MONONITRATE ER 15 MG TAB PO SCH (12:38)
[2021-12-30] MEDS: ATORVASTATIN 40 MG TAB PO SCH (20:48)
[2021-12-30] MEDS: FINASTERIDE 5 MG TAB PO SCH (20:48)
[2021-12-30] MEDS: MAGNESIUM OXIDE 400 MG TAB PO SCH (20:48)
[2021-12-31] MEDS: HYDROcodone/APAP 7.5-325MG 1 EACH TAB PO PRN (01:55)
[2021-12-31] MEDS: LEVOTHYROXINE 112 MCG TAB PO SCH (05:42)
[2021-12-31] MEDS: LEVOTHYROXINE 125 MCG TAB PO SCH (05:42)
[2021-12-31] MEDS: SYMBICORT 80-4.5 MCG INHALER INHALATION SCH ×2 (07:20→19:22)
[2021-12-31] MEDS: PANTOPRAZOLE 40 MG TABLET PO SCH (08:24)
[2021-12-31] MEDS: allopurinoL 300 MG TAB PO SCH (08:25)
[2021-12-31] MEDS: APIXABAN 5 MG TAB PO SCH (08:25)
[2021-12-31] MEDS: GABAPENTIN 400 MG CAP PO SCH ×3 (08:25→21:05)
[2021-12-31] MEDS: ISOSORBIDE MONONITRATE ER 15 MG TAB PO SCH (08:25)
[2021-12-31] MEDS: FUROSEMIDE 40 MG TAB PO SCH ×2 (08:25→16:03)
[2021-12-31 08:51] LABS: Basophils # (A) 0.04 X 10*3/uL (0.00-0.10); Basophils % (A) 0.7 %; Eosinophils # (A) 0.43 X 10*3/uL (0.04-0.35); Eosinophils % (A) 7.3 %; HGB 6.5 g/dL (13.0-17.0); Immature Grans, Automated 0.2 %; Lymphocytes % (A) 18.7 %; MCH 33.7 pg (27.0-32.0); MCHC 29.5 g/dL (32.0-37.0); Mean Platelet Volume 9.5 fL (9.5-12.2); Monocytes # (A) 0.53 X 10*3/uL (0.20-1.00); NRBC Per 100 WBC 0 /100 WBCS (0.0-0.0); Neutrophils # (A) 3.76 X 10*3/uL (1.80-7.70); Neutrophils % (A) 64.1 %; Platelet Count 139 X 10*3/uL (140-440); RBC 1.93 X 10*6/uL (4.40-5.60); RDW 22.8 % (11.5-14.5); WBC 5.87 X 10*3/uL (4.50-10.00)
[2021-12-31 09:12] LABS: ALT <5 U/L (10-49); AST 12 U/L (14-35); African American GFR (CKD) 74.7 (60.0-200.0); Albumin 3.1 g/dL (3.8-4.9); Albumin/Globulin Ratio 0.91 (1.60-3.17); Alkaline Phosphatase 72 U/L (41-126); BUN/Creat Ratio 16.82 Ratio (12.00-20.00); Blood Urea Nitrogen 18.5 mg/dL (9.0-27.0); Calcium 8.1 mg/dL (8.7-10.3); Carbon Dioxide 29.8 mmol/L (20.0-27.5); Chloride 98 mmol/L (96-109); Globulin 3.4 g/dL (1.6-3.3); Glucose 147 mg/dL (70-110); Non-African American GFR(CKD) 64.4 (60.0-200.0); Potassium 3.9 mmol/L (3.5-5.5); Sodium 137 mmol/L (135-145); Total Protein 6.5 g/dL (6.2-8.2)
[2021-12-31] MEDS: carvediloL 6.25 MG TAB PO SCH ×2 (09:25→17:34)
--- NOTE | 2021-12-31 09:53 | P.PN ---
Subjective Progress Note Date: 12/31/21 Patrick Banuelos, is a 76 year old male who presented to [facility] emergency room with a chief complaint of generalized weakness He was evaluated in the emergency room vital examination on presentation revealed a temperature of 97.7 pulse 65 respiration 18 blood pressure 105/55 pulse ox 95% on room air Laboratory data revealed a white blood count of 6.5 hemoglobin 6.0 platelet count 192 sodium 136 potassium 4.4 chloride 105 CO2 22 BUN 25 creatinine 1.01 glucose 143 Testing in the emergency room revealed EKG done in the emergency room revealed sinus rhythm with right bundle branch block and left anterior fascicular block, chest x-ray done in the emergency room revealed pulmonary congestion and mild heart failure and cardiomegaly. Patient was admitted to medical floor for further evaluation and treatment, gastroenterology consultation was requested 1 unit of red blood cell transfusion was given in the emergency room On 12/26/2020 patient was seen and examined on the medical floor he is alert and oriented 3 in no apparent distress there is no fever or chills no headache or dizziness no chest pain no shortness of breath no cough no nausea or vomiting no abdominal pain no diarrhea and no urinary symptoms he is scheduled tomorrow for EGD and colonoscopy and will receive preparation this afternoon, hemoglobin today is 6.8 will continue to monitor patient's received 1 unit of red blood cell transfusion in the emergency room On 12/27/2021 patient is alert and oriented 3. Plans for colonoscopy and EGD today per GI services labs currently pending cardiology and GI services following. Current vitals temp 97.9, pulse rate 69, respiratory rate 18, blood pressure 119/60. Patient stating 99% on 2 L. Repeat labs ordered for a.m. On 12/28/2021 patient was seen and examined on the medical floor he is alert and oriented 3 in no apparent distress there is no fever or chills no headache or dizziness no chest pain no shortness of breath no cough no nausea or vomiting no abdominal pain no diarrhea and no urinary symptoms. Hemoglobin today is down again to 6.51 unit of red blood cell transfusion was ordered. Yesterday patient underwent EGD and colonoscopy with Dr. 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 At this time will continue supportive care, advised to increase ambulation will consult physical therapy and occupational therapy will recheck labs in a.m. On 12/29/2021 patient is alert and oriented 3. Hemoglobin today 7.1. Did discuss case with GI team. Okay to resume eliquis and monitor hemoglobin. No signs of active bleeding. Patient denies chest pain or shortness of breath. Patient denies nausea vomiting or diarrhea. Patient denies any urinary burning or frequency. Total bilirubin also elevated at 4.5. 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 Repeat labs ordered for a.m. On 12/30/2021 patient was seen and examined on the medical floor he is alert and oriented 3 in no apparent distress there is no fever or chills no headache or dizziness no chest pain no shortness of breath no cough no nausea or vomiting no abdominal pain no diarrhea and no urinary symptoms, he is tolerating diet well, hemoglobin is down to 6.8 today, at this time he does not qualify for red blood cell transfusion, will give IV iron infusion today and recheck labs in a.m. On 12/31/2021 patient is alert and oriented 3. Hemoglobin 6.5. 1 unit PRBCs have been ordered. Per cardiology if anemia worsens okay to continue to hold eliquis on discharge and follow-up in office with cardiology services. Patient denies chest pain or shortness breath. Patient denies nausea vomiting or diarrhea. Patient denies any urinary burning or frequency patient denies any fu rther episodes of bleeding Objective - Vital Signs Vital signs: Vital Signs Temp 98.1 F 12/31/21 05:00 Pulse 60 12/31/21 08:20 Resp 16 12/31/21 05:00 BP 102/44 12/31/21 08:20 Pulse Ox 100 12/31/21 08:20 Intake & Output 12/30/21 12/31/21 12/31/21 18:59 06:59 18:59 Intake Total 600 Output Total 500 Balance 100 Weight 93 kg Intake: Oral 600 Output: Urine 500 Other: Voiding Method Urinal Urinal Diaper Diaper - Exam In general patient is alert and oriented x 3 in no distress HEENT head normocephalic and atraumatic Neck is supple no JVD no goiter no lymphadenopathy no carotid bruit Chest examination is clear to auscultation no crackles no wheezing Cardiac exam reveals regular heart sounds S1 and S2 no gallops no murmurs Abdomen is soft nontender no organomegaly with normal bowel sounds Extremity exam reveals no edema no cyanosis or clubbing Neurological examination reveals no gross focal deficits - Labs CBC & Chem 7: 12/31/21 06:11 12/31/21 06:11 Labs: Abnormal Lab Results - Last 24 Hours (Table) 12/28/21 12/30/21 12/30/21 Range/Units 11:24 06:46 06:46 RBC 2.04 L (4.40-5.60) X 10*6/uL Hgb 6.8 L* (13.0-17.0) g/dL Hct 23.0 L (39.6-50.0) % MCV 112.7 H (80.0-97.0) fL MCH 33.3 H (27.0-32.0) pg MCHC 29.6 L (32.0-37.0) g/dL RDW 23.7 H (11.5-14.5) % Plt Count (140-440) X 10*3/uL Eosinophils # 0.44 H (0.04-0.35) X 10*3/uL Carbon Dioxide 30.4 H (20.0-27.5) mmol/L Anion Gap 7.80 L (10.00-18.00) mmol/L Glucose (70-110) mg/dL Calcium 8.1 L (8.7-10.3) mg/dL Total Bilirubin 3.80 H (0.30-1.20) mg/dL AST (14-35) U/L ALT <5 L (10-49) U/L Albumin 3.2 L (3.8-4.9) g/dL Globulin (1.6-3.3) g/dL Albumin/Globulin Ratio 0.97 L (1.60-3.17) g/dL Crossmatch See Detail 12/31/21 12/31/21 Range/Units 06:11 06:11 RBC 1.93 L (4.40-5.60) X 10*6/uL Hgb 6.5 L* (13.0-17.0) g/dL Hct 22.0 L (39.6-50.0) % MCV 114.0 H (80.0-97.0) fL MCH 33.7 H (27.0-32.0) pg MCHC 29.5 L (32.0-37.0) g/dL RDW 22.8 H (11.5-14.5) % Plt Count 139 L (140-440) X 10*3/uL Eosinophils # 0.43 H (0.04-0.35) X 10*3/uL Carbon Dioxide 29.8 H (20.0-27.5) mmol/L Anion Gap 9.20 L (10.00-18.00) mmol/L Glucose 147 H (70-110) mg/dL Calcium 8.1 L (8.7-10.3) mg/dL Total Bilirubin 3.10 H (0.30-1.20) mg/dL AST 12 L (14-35) U/L ALT <5 L (10-49) U/L Albumin 3.1 L (3.8-4.9) g/dL Globulin 3.4 H (1.6-3.3) g/dL Albumin/Globulin Ratio 0.91 L (1.60-3.17) g/dL Crossmatch Assessment and Plan Plan: Anemia with hemoglobin of 6.0 on presentation, patient received 1 unit of red blood cell transfusion in the emergency room. 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 Status post argon plasma coagulation. Colonoscopy was normal. Per GI services okay to resume eliquis and monitor hemoglobin Elevated bilirubin with mild jaundice, with normal AST ALT and alkaline phosphatase, could be related to Gilbert's syndrome, hepatitis B and C profile and liver ultrasound ordered. Per GI services likely Gilbert's syndrome patient to follow-up outpatient Underlying history of hypertension Underlying history of hyperlipidemia Underlying history of atrial fibrillation maintained on adequate Underlying history of gout Underlying history of [id number] diabetes mellitus Episode of chest pain after presentation Previous history of TIA Acute on chronic heart failure with reduced EF Worsening cardiomyopathy could be related to anemia bacteremia versus nonischemic. Cardiology services are following. 2-D echo completed showing an EF of 20-25% At this time patient is admitted to medical floor and gastroenterology consultation was requested 1 unit of red blood cell transfusion was given Will monitor hemoglobin closely 12/29/2021 eliquis resumed per GI recommendation 12/31/2021 we'll hold eliquis this time due to ongoing anemia Plans for EGD and colonoscopy completed on 12/27/2021 repeat Labs ordered
[2021-12-31 11:04] LABS: Anisocytosis Moderate; Basophils # (A) 0.1 k/uL (0-0.2); Basophils % (A) 1 %; Eosinophils # (A) 0.5 k/uL (0-0.7); Eosinophils % (A) 7 %; HCT 23.2 % (39.0-53.0); HGB 7.3 gm/dL (13.0-17.5); Hypochromasia Marked; Lymphocytes # (A) 1.1 k/uL (1.0-4.8); Lymphocytes % (A) 15 %; MCHC 31.6 g/dL (31.0-37.0); Macrocytosis Marked; Mean Platelet Volume 7.9; Monocytes # (A) 0.5 k/uL (0-1.0); Monocytes % (A) 7 %; Neutrophils # (A) 4.8 k/uL (1.3-7.7); Neutrophils % (A) 69 %; Platelet Count 192 k/uL (150-450); Poikilocytosis Slight; RDW 20.5 % (11.5-15.5); WBC 6.9 k/uL (3.8-10.6)
[2021-12-31] MEDS ORDERED: SODIUM FERRIC GLUCONAT-SUCROSE 125 MG in SODIUM CHLORIDE 0.9% 100 ML IVPB ONE (12:00)
[2021-12-31 14:52] LABS: MCV 110.7 fL (80.0-100.0)
[2021-12-31] MEDS: ATORVASTATIN 40 MG TAB PO SCH (20:21)
[2021-12-31] MEDS: FINASTERIDE 5 MG TAB PO SCH (20:21)
[2021-12-31] MEDS: MAGNESIUM OXIDE 400 MG TAB PO SCH (20:21)
[2022-01-01] MEDS: LEVOTHYROXINE 112 MCG TAB PO SCH (05:46)
[2022-01-01] MEDS: LEVOTHYROXINE 125 MCG TAB PO SCH (05:46)
[2022-01-01] MEDS: SYMBICORT 80-4.5 MCG INHALER INHALATION SCH ×2 (07:38→19:22)
[2022-01-01] MEDS: allopurinoL 300 MG TAB PO SCH (07:57)
[2022-01-01] MEDS: ISOSORBIDE MONONITRATE ER 15 MG TAB PO SCH (07:57)
[2022-01-01] MEDS: FUROSEMIDE 40 MG TAB PO SCH ×2 (07:57→17:02)
[2022-01-01] MEDS: PANTOPRAZOLE 40 MG TABLET PO SCH (07:57)
[2022-01-01] MEDS: carvediloL 6.25 MG TAB PO SCH ×2 (07:57→17:02)
[2022-01-01] MEDS: GABAPENTIN 400 MG CAP PO SCH ×3 (07:57→21:57)
[2022-01-01 09:23] LABS: ALT <5 U/L (10-49); AST 14 U/L (14-35); African American GFR (CKD) 74.7 (60.0-200.0); Albumin 3.3 g/dL (3.8-4.9); Albumin/Globulin Ratio 0.94 (1.60-3.17); Alkaline Phosphatase 73 U/L (41-126); BUN/Creat Ratio 15.27 Ratio (12.00-20.00); Blood Urea Nitrogen 16.8 mg/dL (9.0-27.0); Calcium 8.5 mg/dL (8.7-10.3); Carbon Dioxide 30.1 mmol/L (20.0-27.5); Chloride 99 mmol/L (96-109); Globulin 3.5 g/dL (1.6-3.3); Glucose 112 mg/dL (70-110); Non-African American GFR(CKD) 64.4 (60.0-200.0); Potassium 3.8 mmol/L (3.5-5.5); Sodium 139 mmol/L (135-145); Total Protein 6.8 g/dL (6.2-8.2)
[2022-01-01 09:38] LABS: Basophils # (A) 0.05 X 10*3/uL (0.00-0.10); Basophils % (A) 0.8 %; Eosinophils # (A) 0.51 X 10*3/uL (0.04-0.35); Eosinophils % (A) 8.1 %; HCT 22.3 % (39.6-50.0); HGB 6.6 g/dL (13.0-17.0); Immature Grans, Automated 0.6 %; Lymphocytes # (A) 1.03 X 10*3/uL (0.90-5.00); Lymphocytes % (A) 16.4 %; MCH 33.8 pg (27.0-32.0); MCHC 29.6 g/dL (32.0-37.0); MCV 114.4 fL (80.0-97.0); Mean Platelet Volume 9.5 fL (9.5-12.2); Monocytes # (A) 0.53 X 10*3/uL (0.20-1.00); Monocytes % (A) 8.5 %; NRBC Per 100 WBC 0 /100 WBCS (0.0-0.0); Neutrophils # (A) 4.11 X 10*3/uL (1.80-7.70); Neutrophils % (A) 65.6 %; Platelet Count 154 X 10*3/uL (140-440); RBC 1.95 X 10*6/uL (4.40-5.60); RDW 22.6 % (11.5-14.5); WBC 6.27 X 10*3/uL (4.50-10.00)
[2022-01-01 11:02] LABS: Anisocytosis Moderate; Basophils # (A) 0.1 k/uL (0-0.2); Basophils % (A) 1 %; Eosinophils # (A) 0.5 k/uL (0-0.7); Eosinophils % (A) 9 %; HCT 21.5 % (39.0-53.0); Hypochromasia Marked; Lymphocytes % (A) 16 %; MCH 35.8 pg (25.0-35.0); MCHC 32.2 g/dL (31.0-37.0); Macrocytosis Marked; Mean Platelet Volume 7.9; Monocytes # (A) 0.4 k/uL (0-1.0); Monocytes % (A) 7 %; Neutrophils # (A) 4.1 k/uL (1.3-7.7); Neutrophils % (A) 67 %; Platelet Count 167 k/uL (150-450); Poikilocytosis Slight; RBC 1.94 m/uL (4.30-5.90); RDW 20.2 % (11.5-15.5); WBC 6.2 k/uL (3.8-10.6)
[2022-01-01 11:07] LABS: HGB 6.9 gm/dL (13.0-17.5)
[2022-01-01 12:02] VITALS: BMI 26.3
[2022-01-01] MEDS ORDERED: diphenhydrAMINE 25 MG CAP PO PRN (13:09)
--- NOTE | 2022-01-01 14:46 | P.PN ---
Subjective Progress Note Date: 01/01/22 Patrick Banuelos, is a 76 year old male who presented to [facility] emergency room with a chief complaint of generalized weakness He was evaluated in the emergency room vital examination on presentation revealed a temperature of 97.7 pulse 65 respiration 18 blood pressure 105/55 pulse ox 95% on room air Laboratory data revealed a white blood count of 6.5 hemoglobin 6.0 platelet count 192 sodium 136 potassium 4.4 chloride 105 CO2 22 BUN 25 creatinine 1.01 glucose 143 Testing in the emergency room revealed EKG done in the emergency room revealed sinus rhythm with right bundle branch block and left anterior fascicular block, chest x-ray done in the emergency room revealed pulmonary congestion and mild heart failure and cardiomegaly. Patient was admitted to medical floor for further evaluation and treatment, gastroenterology consultation was requested 1 unit of red blood cell transfusion was given in the emergency room On 12/26/2020 patient was seen and examined on the medical floor he is alert and oriented 3 in no apparent distress there is no fever or chills no headache or dizziness no chest pain no shortness of breath no cough no nausea or vomiting no abdominal pain no diarrhea and no urinary symptoms he is scheduled tomorrow for EGD and colonoscopy and will receive preparation this afternoon, hemoglobin today is 6.8 will continue to monitor patient's received 1 unit of red blood cell transfusion in the emergency room On 12/27/2021 patient is alert and oriented 3. Plans for colonoscopy and EGD today per GI services labs currently pending cardiology and GI services following. Current vitals temp 97.9, pulse rate 69, respiratory rate 18, blood pressure 119/60. Patient stating 99% on 2 L. Repeat labs ordered for a.m. On 12/28/2021 patient was seen and examined on the medical floor he is alert and oriented 3 in no apparent distress there is no fever or chills no headache or dizziness no chest pain no shortness of breath no cough no nausea or vomiting no abdominal pain no diarrhea and no urinary symptoms. Hemoglobin today is down again to 6.51 unit of red blood cell transfusion was ordered. Yesterday patient underwent EGD and colonoscopy with Dr. 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 At this time will continue supportive care, advised to increase ambulation will consult physical therapy and occupational therapy will recheck labs in a.m. On 12/29/2021 patient is alert and oriented 3. Hemoglobin today 7.1. Did discuss case with GI team. Okay to resume eliquis and monitor hemoglobin. No signs of active bleeding. Patient denies chest pain or shortness of breath. Patient denies nausea vomiting or diarrhea. Patient denies any urinary burning or frequency. Total bilirubin also elevated at 4.5. 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 Repeat labs ordered for a.m. On 12/30/2021 patient was seen and examined on the medical floor he is alert and oriented 3 in no apparent distress there is no fever or chills no headache or dizziness no chest pain no shortness of breath no cough no nausea or vomiting no abdominal pain no diarrhea and no urinary symptoms, he is tolerating diet well, hemoglobin is down to 6.8 today, at this time he does not qualify for red blood cell transfusion, will give IV iron infusion today and recheck labs in a.m. On 12/31/2021 patient is alert and oriented 3. Hemoglobin 6.5. 1 unit PRBCs have been ordered. Per cardiology if anemia worsens okay to continue to hold eliquis on discharge and follow-up in office with cardiology services. Patient denies chest pain or shortness breath. Patient denies nausea vomiting or diarrhea. Patient denies any urinary burning or frequency patient denies any fu rther episodes of bleeding On 01/01/2022 patient is alert and oriented 3. Hemoglobin 6.9. 1 unit PRBCs have been ordered yesterday but not given due to shortage. Per cardiology if anemia worsens okay to continue to hold eliquis on discharge and follow-up in office with cardiology services. Patient denies chest pain or shortness breath. Patient denies nausea vomiting or diarrhea. Patient denies any urinary burning or frequency patient denies any further episodes of bleeding Objective - Vital Signs Vital signs: Vital Signs Temp 98.1 F 01/01/22 12:45 Pulse 64 01/01/22 12:45 Resp 17 01/01/22 12:45 BP 96/46 01/01/22 12:45 Pulse Ox 91 L 01/01/22 12:45 Intake & Output 12/31/21 01/01/2201/01/22 18:59 06:59 18:59 Intake Total 600 Output Total 1100 Balance -500 Weight 90.5 kg 90.5 kg Intake: Oral 600 Output: Urine 1100 Other: Voiding Method Urinal Urinal Bedside Commode Diaper Diaper Urinal Diaper # Bowel Movements 1 - Exam In general patient is alert and oriented x 3 in no distress HEENT head normocephalic and atraumatic Neck is supple no JVD no goiter no lymphadenopathy no carotid bruit Chest examination is clear to auscultation no crackles no wheezing Cardiac exam reveals regular heart sounds S1 and S2 no gallops no murmurs Abdomen is soft nontender no organomegaly with normal bowel sounds Extremity exam reveals no edema no cyanosis or clubbing Neurological examination reveals no gross focal deficits - Labs CBC & Chem 7: 01/01/22 10:06 01/01/22 06:00 Labs: Abnormal Lab Results - Last 24 Hours (Table) 12/31/21 01/01/22 01/01/22 Range/Units 10:49 06:00 06:00 RBC 1.95 L (4.40-5.60) X 10*6/uL Hgb 6.6 L* (13.0-17.0) g/dL Hct 22.3 L (39.6-50.0) % MCV 110.7 H D 114.4 H (80.0-100.0) fL MCH 33.8 H (27.0-32.0) pg MCHC 29.6 L (32.0-37.0) g/dL RDW 22.6 H (11.5-14.5) % Eosinophils # 0.51 H (0.04-0.35) X 10*3/uL Macrocytosis Carbon Dioxide 30.1 H (20.0-27.5) mmol/L Anion Gap 9.90 L (10.00-18.00) mmol/L Glucose 112 H (70-110) mg/dL Calcium 8.5 L (8.7-10.3) mg/dL Total Bilirubin 4.00 H (0.30-1.20) mg/dL ALT <5 L (10-49) U/L Albumin 3.3 L (3.8-4.9) g/dL Globulin 3.5 H (1.6-3.3) g/dL Albumin/Globulin Ratio 0.94 L (1.60-3.17) g/dL 01/01/22 Range/Units 10:06 RBC 1.94 L (4.40-5.60) X 10*6/uL Hgb 6.9 L* (13.0-17.0) g/dL Hct 21.5 L (39.6-50.0) % MCV 111.0 H (80.0-100.0) fL MCH 35.8 H (27.0-32.0) pg MCHC (32.0-37.0) g/dL RDW 20.2 H (11.5-14.5) % Eosinophils # (0.04-0.35) X 10*3/uL Macrocytosis Marked A Carbon Dioxide (20.0-27.5) mmol/L Anion Gap (10.00-18.00) mmol/L Glucose (70-110) mg/dL Calcium (8.7-10.3) mg/dL Total Bilirubin (0.30-1.20) mg/dL ALT (10-49) U/L Albumin (3.8-4.9) g/dL Globulin (1.6-3.3) g/dL Albumin/Globulin Ratio (1.60-3.17) g/dL Assessment and Plan Plan: Anemia with hemoglobin of 6.0 on presentation, patient received 1 unit of red blood cell transfusion in the emergency room. 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 Status post argon plasma coagulation. Colonoscopy was normal. Per GI services okay to resume eliquis and monitor hemoglobin Elevated bilirubin with mild jaundice, with normal AST ALT and alkaline phosphatase, could be related to Gilbert's syndrome, hepatitis B and C profile and liver ultrasound ordered. Per GI services likely Gilbert's syndrome patient to follow-up outpatient Underlying history of hypertension Underlying history of hyperlipidemia Underlying history of atrial fibrillation maintained on adequate Underlying history of gout Underlying history of [id number] diabetes mellitus Episode of chest pain after presentation Previous history of TIA Acute on chronic heart failure with reduced EF Worsening cardiomyopathy could be related to anemia bacteremia versus nonischemic. Cardiology services are following. 2-D echo completed showing an EF of 20-25% At this time patient is admitted to medical floor and gastroenterology consultation was requested 1 unit of red blood cell transfusion was given Will monitor hemoglobin closely 12/29/2021 eliquis resumed per GI recommendation 12/31/2021 we'll hold eliquis this time due to ongoing anemia Plans for EGD and colonoscopy completed on 12/27/2021 repeat Labs ordered
[2022-01-01] MEDS ORDERED: SODIUM FERRIC GLUCONAT-SUCROSE 125 MG in SODIUM CHLORIDE 0.9% 100 ML IVPB ONE (15:00)
[2022-01-01] MEDS: MAGNESIUM OXIDE 400 MG TAB PO SCH (20:11)
[2022-01-01] MEDS: ATORVASTATIN 40 MG TAB PO SCH (20:11)
[2022-01-01] MEDS: FINASTERIDE 5 MG TAB PO SCH (20:11)
[2022-01-02] MEDS: LEVOTHYROXINE 112 MCG TAB PO SCH (05:48)
[2022-01-02] MEDS: LEVOTHYROXINE 125 MCG TAB PO SCH (05:48)
[2022-01-02 06:41] LABS: Anisocytosis Moderate; Basophils # (A) 0.1 k/uL (0-0.2); Basophils % (A) 1 %; Eosinophils # (A) 0.5 k/uL (0-0.7); Eosinophils % (A) 8 %; HCT 20.3 % (39.0-53.0); Hypochromasia Marked; Lymphocytes # (A) 0.9 k/uL (1.0-4.8); Lymphocytes % (A) 15 %; MCH 35.5 pg (25.0-35.0); Mean Platelet Volume 7.8; Monocytes # (A) 0.4 k/uL (0-1.0); Monocytes % (A) 6 %; Neutrophils # (A) 4.2 k/uL (1.3-7.7); Neutrophils % (A) 69 %; Platelet Count 160 k/uL (150-450); Poikilocytosis Slight; RBC 1.83 m/uL (4.30-5.90); RDW 20.6 % (11.5-15.5)
[2022-01-02 06:50] LABS: ALT <6 U/L (4-49); AST 18 U/L (17-59); African American GFR (CKD) 79 (>60 ml/min/1.73 sqM); Albumin 2.9 g/dL (3.5-5.0); Albumin/Globulin Ratio 0.7; Alkaline Phosphatase 64 U/L (38-126); Anion Gap 1 mmol/L; Blood Urea Nitrogen 19 mg/dL (9-20); Carbon Dioxide 35 mmol/L (22-30); Chloride 99 mmol/L (98-107); Glucose 111 mg/dL (74-99); Non-African American GFR(CKD) 69 (>60 ml/min/1.73 sqM); Potassium 3.8 mmol/L (3.5-5.1); Sodium 135 mmol/L (137-145); Total Bilirubin 4.8 mg/dL (0.2-1.3); Total Protein 6.9 g/dL (6.3-8.2)
[2022-01-02 06:59] LABS: HGB 6.5 gm/dL (13.0-17.5); Macrocytosis Marked
[2022-01-02] MEDS: SYMBICORT 80-4.5 MCG INHALER INHALATION SCH ×2 (07:59→19:20)
[2022-01-02] MEDS: ISOSORBIDE MONONITRATE ER 15 MG TAB PO SCH (08:47)
[2022-01-02] MEDS: FUROSEMIDE 40 MG TAB PO SCH ×2 (08:47→15:06)
[2022-01-02] MEDS: carvediloL 6.25 MG TAB PO SCH ×2 (08:47→18:53)
[2022-01-02] MEDS: GABAPENTIN 400 MG CAP PO SCH ×3 (08:51→20:23)
[2022-01-02] MEDS: PANTOPRAZOLE 40 MG TABLET PO SCH (08:51)
[2022-01-02] MEDS: allopurinoL 300 MG TAB PO SCH (08:51)
--- NOTE | 2022-01-02 18:50 | P.CONS ---
History of Present Illness - Reason for Consult Consult date: 01/02/22 anemia Requesting physician: Karoline Mg - Chief Complaint weakness - History of Present Illness Mr. Banuelos is a pleasant 76 year old male, presenting to [facility] ED c/o of generalized weakness. he states he hasn't felt well since his left knee infection. He was on vancomycin for about 4 months, awaiting knee replacement. He did finally have the surgery to have the knee replaced in October 2021. he denies any history of anemia. He does not recall having anemia or being told he had anemia when he was being treated for severe infection. He has a history of EGD with cautery, colonoscopy in 2018 and recently, both negative for any pathological findings or source of bleeding. Patient states these lost 30 pounds over the past 4-5 months. On chart review patient was noted to be anemic in 2016, then hemoglobin was normal up until about August 2021 when it dropped again. patient's hemoglobin was 6 on admit. He has received 3 units of blood since admission, with the best hemoglobin being 7.3. He is currently at 6.5. Bilirubin has been slightly elevated in the past, it is continually increasing since this admission, current bilirubin is 4.8, both conjugated and unconjugated bilirubin are elevated as well. Pt reports Hx of EtOH use, not heavy, but consistent, for many years, not recently. He reports a history of atrial fibrillation and maybe a slight murmur, myocardial infarction, cardiovascular disease, he does follow with a [employer]. he was on eliquis on through Cardiology. He also has past medical history of hypothyroidism on levothyroxine, peripheral neuropathy, BPH, DMII. He denies fevers, chills, nausea, vomiting, chest pain, abdominal pain or distention, acute changes in bowel or bladder habits, he denies any bleeding. Review of Systems 14 point review of systems is negative except as stated in HPI Past Medical History Past Medical History: Atrial Fibrillation, Asthma, Coronary Artery Disease (CAD), COPD, Diabetes Mellitus, Hypertension, Myocardial Infarction ([place]), Pneumonia Additional Past Medical History / Comment(s): left knee cap broken, pancreatitis, /gallstones Last Myocardial Infarction Date:: 2017 History of Any Multi-Drug Resistant Organisms: None Reported Past Surgical History: Cholecystectomy, Coronary Bypass/CABG, Heart Catheteriza tion With Stent, Hernia Repair, Orthopedic Surgery Additional Past Surgical History / Comment(s): lt knee replacement(total of 3 sx), colonoscopy, Left knee cap removal with antibiotic spacers placed, Past Anesthesia/Blood Transfusion Reactions: No Reported Reaction Date of Last Stent Placement:: 10/2015 Past Psychological History: No Psychological Hx Reported Smoking Status: Former smoker Past Alcohol Use History: Occasional Past Drug Use History: None Reported - Past Family History Father Family Medical History: Diabetes Mellitus Mother Family Medical History: CVA/TIA, Hypertension Medications and Allergies Home Medications Medication Instructions Recorded Confirmed Type Allopurinol [Zyloprim] 300 mg PO DAILY 08/07/17 12/24/21 History Albuterol Sulfate [Proventil Hfa] 1 puff INHALATION RT-Q4H PRN 10/15/17 12/24/21 History Gabapentin 1,200 mg PO TID 10/02/18 12/24/21 History Levothyroxine Sodium [Synthroid] 112 mcg PO DAILY 10/02/18 12/24/21 History Levothyroxine Sodium [Synthroid] 125 mcg PO DAILY 10/02/18 12/24/21 History Nitroglycerin Sl Tabs [Nitrostat] 0.4 mg SL Q5M PRN 10/02/18 12/24/21 History diazePAM [Valium] 5 mg PO BID PRN 10/02/18 12/24/21 History Apixaban [Eliquis] 5 mg PO BID 11/07/19 12/24/21 History Finasteride [Proscar] 5 mg PO HS 03/17/21 12/24/21 History Magnesium Oxide [Mag-Ox] 500 mg PO HS 03/17/21 12/24/21 History Meclizine [Antivert] 25 mg PO BID PRN 03/17/21 12/24/21 History Omeprazole 20 mg PO DAILY 03/17/21 12/24/21 History carvediloL [Coreg] 6.25 mg PO BID-W/MEALS 03/17/21 12/24/21 History metFORMIN HCL [Glucophage] 1,000 mg PO BID 03/17/21 12/24/21 History Atorvastatin [Lipitor] 40 mg PO HS 10/19/21 12/24/21 History Fluticasone Propion/Salmeterol 1 puff INHALATION RT-BID 10/19/21 12/24/21 History [Fluticasone-Salmeterol 100-50] Furosemide [Lasix] 40 mg PO BID@0900,1600 30 Days #60 12/29/21 Rx tab Allergies Allergy/AdvReac Type Severity Reaction Status Date / Time cephalexin [From Keflex] Allergy Unknown Verified 12/24/21 18:17 clopidogrel [From Plavix] Allergy Rash/Hives Verified 12/24/21 18:17 codeine Allergy Rash/Nausea Verified 12/24/21 18:17 & Vomiting Iodine and Iodide Containing Allergy Rash/Hives Verified 12/24/21 18:17 Produc levofloxacin [From Levaquin] Allergy urticaria/r Verified 12/24/21 18:17 belle shellfish derived [Shellfish] Allergy urticaria/r Verified 12/24/21 18:17 belle lisinopril AdvReac Angiodema Verified 12/24/21 18:17 of tongue oxycodone AdvReac Hallucinati Verified 12/24/21 18:17 ons solifenacin AdvReac Nausea & Verified 12/24/21 18:17 Vomiting Physical Exam Vitals: Vital Signs Temp Pulse Resp BP BP Pulse Ox 01/02/22 12:10 97.8 F 68 14 103/55 95 01/02/22 07:45 97.7 F 67 18 97/53 96 01/02/22 05:51 16 94 L 01/02/22 05:00 98.2 F 65 20 103/54 90 L 01/01/22 20:34 98.0 F 61 18 98/57 96 01/01/22 19:55 18 Intake and Output 01/02/22 01/02/22 01/02/22 06:59 14:59 22:59 Intake Total 300 840 Output Total 400 500 Balance -100 340 Intake: Oral 300 840 Output: Urine 400 500 Other: Voiding Method Urinal # Bowel Movements 1 Weight 90 kg - Constitutional General appearance: average body habitus, cooperative, no acute distress - EENT Eyes: EOMI, scleral icterus ENT: hearing grossly normal - Neck Neck: no lymphadenopathy - Respiratory Respiratory: bilateral: CTA - Cardiovascular very harsh systolic murmur LSB (pulmonic, ERBs and tricuspid) Rhythm: irregularly irregular - Gastrointestinal General gastrointestinal: no absent bowel sounds, no decreased bowel sounds, no distended, hepatomegaly (?), no hyperactive bowel sounds, normal bowel sounds, no organomegaly, no rigid, no scaphoid, soft, no splenomegaly, no tenderness, no umbilical hernia, no ventral hernia - Integumentary Integumentary: jaundiced, pale - Neurologic Neurologic: CNII-XII intact - Musculoskeletal Musculoskeletal: generalized weakness, strength equal bilaterally - Psychiatric Psychiatric: A&O x's 3, appropriate affect, intact judgment & insight Results CBC & Chem 7: 01/02/22 06:03 01/02/22 06:03 Labs: Abnormal Lab Results - Last 24 Hours (Table) 01/02/22 01/02/22 Range/Units 06:03 06:03 RBC 1.83 L (4.30-5.90) m/uL Hgb 6.5 L* (13.0-17.5) gm/dL Hct 20.3 L (39.0-53.0) % MCV 111.0 H (80.0-100.0) fL MCH 35.5 H (25.0-35.0) pg RDW 20.6 H (11.5-15.5) % Lymphocytes # 0.9 L (1.0-4.8) k/uL Macrocytosis Marked A Sodium 135 L (137-145) mmol/L Carbon Dioxide 35 H (22-30) mmol/L Glucose 111 H (74-99) mg/dL Calcium 8.0 L (8.4-10.2) mg/dL Total Bilirubin 4.8 H (0.2-1.3) mg/dL Albumin 2.9 L (3.5-5.0) g/dL Assessment and Plan (1) Macrocytic anemia Narrative/Plan: On chart review patient has been anemic two other times, last time was when he had the infection in the knee, 08/2021 into October 2020. Macrocytosis is new 12/19. Blirubin has progressively worsened since 12/19. Pt has received 3 units of blood since admission with no appropriate increase in hemoglobin. 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 Colonoscopy was negative for malignancy or bleeding. Hemolysis workup ordered Ferritin elevated, iron studies normal. B12 low-normal, folic acid normal. Methylmalonic acid ordered. US revealing hepatomegaly. MRI ordered CBC in the a.m. Patient is stable currently with a hemoglobin of 6.5. Current Visit: Yes Status: Acute Priority: High Code(s): D53.9 - NUTRITIONAL ANEMIA, UNSPECIFIED SNOMED Code(s): 61431061
[2022-01-02 19:31] LABS: Reticulocyte % 14.7 % (0.5-2.0)
[2022-01-02] MEDS: ATORVASTATIN 40 MG TAB PO SCH (20:23)
[2022-01-02] MEDS: FINASTERIDE 5 MG TAB PO SCH (20:23)
[2022-01-02] MEDS: MAGNESIUM OXIDE 400 MG TAB PO SCH (20:23)
[2022-01-03] MEDS: LEVOTHYROXINE 125 MCG TAB PO SCH (05:37)
[2022-01-03] MEDS: LEVOTHYROXINE 112 MCG TAB PO SCH (05:37)
[2022-01-03 06:03] LABS: Anisocytosis Moderate; Basophils # (A) 0.1 k/uL (0-0.2); Basophils % (A) 1 %; Eosinophils # (A) 0.4 k/uL (0-0.7); Eosinophils % (A) 6 %; Hypochromasia Marked; Lymphocytes # (A) 0.9 k/uL (1.0-4.8); Lymphocytes % (A) 16 %; MCH 34.6 pg (25.0-35.0); MCHC 30.4 g/dL (31.0-37.0); MCV 113.9 fL (80.0-100.0); Macrocytosis Marked; Mean Platelet Volume 7.6; Monocytes # (A) 0.4 k/uL (0-1.0); Monocytes % (A) 6 %; Neutrophils # (A) 4.1 k/uL (1.3-7.7); Neutrophils % (A) 70 %; Platelet Count 184 k/uL (150-450); Poikilocytosis Slight; RBC 1.74 m/uL (4.30-5.90); RDW 22.3 % (11.5-15.5); WBC 5.9 k/uL (3.8-10.6)
[2022-01-03 06:09] LABS: HCT 19.8 % (39.0-53.0)
[2022-01-03 06:13] LABS: INR 1.1 (<1.2); Partial Thromboplastin Time 29.8 sec (22.0-30.0)
[2022-01-03 06:46] LABS: Anisocytosis (M) Present; Polychromasia Present
[2022-01-03] MEDS: SYMBICORT 80-4.5 MCG INHALER INHALATION SCH ×2 (07:53→19:41)
[2022-01-03] MEDS: GABAPENTIN 400 MG CAP PO SCH ×3 (09:03→21:52)
[2022-01-03] MEDS: carvediloL 6.25 MG TAB PO SCH ×2 (09:03→15:36)
[2022-01-03] MEDS: ISOSORBIDE MONONITRATE ER 15 MG TAB PO SCH (09:03)
[2022-01-03 09:04] LABS: Protein, Total 6.5 g/dL (6.2-8.2)
[2022-01-03] MEDS: FUROSEMIDE 40 MG TAB PO SCH ×2 (09:04→15:36)
[2022-01-03] MEDS: allopurinoL 300 MG TAB PO SCH (09:04)
[2022-01-03] MEDS: PANTOPRAZOLE 40 MG TABLET PO SCH (09:04)
[2022-01-03 09:05] LABS: ALT <5 U/L (10-49); AST 15 U/L (14-35); African American GFR (CKD) 73.8 (60.0-200.0); Albumin 3.2 g/dL (3.8-4.9); Albumin/Globulin Ratio 0.91 (1.60-3.17); Alkaline Phosphatase 66 U/L (41-126); BUN/Creat Ratio 16.22 Ratio (12.00-20.00); Calcium 8.4 mg/dL (8.7-10.3); Carbon Dioxide 29.6 mmol/L (20.0-27.5); Chloride 97 mmol/L (96-109); Globulin 3.5 g/dL (1.6-3.3); Glucose 117 mg/dL (70-110); Non-African American GFR(CKD) 63.7 (60.0-200.0); Potassium 3.8 mmol/L (3.5-5.5); Sodium 136 mmol/L (135-145); Total Protein 6.7 g/dL (6.2-8.2)
--- NOTE | 2022-01-03 10:01 | P.PN ---
Subjective Progress Note Date: 01/03/22 Patrick Banuelos, is a 76 year old male who presented to [facility] emergency room with a chief complaint of generalized weakness He was evaluated in the emergency room vital examination on presentation revealed a temperature of 97.7 pulse 65 respiration 18 blood pressure 105/55 pulse ox 95% on room air Laboratory data revealed a white blood count of 6.5 hemoglobin 6.0 platelet count 192 sodium 136 potassium 4.4 chloride 105 CO2 22 BUN 25 creatinine 1.01 glucose 143 Testing in the emergency room revealed EKG done in the emergency room revealed sinus rhythm with right bundle branch block and left anterior fascicular block, chest x-ray done in the emergency room revealed pulmonary congestion and mild heart failure and cardiomegaly. Patient was admitted to medical floor for further evaluation and treatment, gastroenterology consultation was requested 1 unit of red blood cell transfusion was given in the emergency room On 12/26/2020 patient was seen and examined on the medical floor he is alert and oriented 3 in no apparent distress there is no fever or chills no headache or dizziness no chest pain no shortness of breath no cough no nausea or vomiting no abdominal pain no diarrhea and no urinary symptoms he is scheduled tomorrow for EGD and colonoscopy and will receive preparation this afternoon, hemoglobin today is 6.8 will continue to monitor patient's received 1 unit of red blood cell transfusion in the emergency room On 12/27/2021 patient is alert and oriented 3. Plans for colonoscopy and EGD today per GI services labs currently pending cardiology and GI services following. Current vitals temp 97.9, pulse rate 69, respiratory rate 18, blood pressure 119/60. Patient stating 99% on 2 L. Repeat labs ordered for a.m. On 12/28/2021 patient was seen and examined on the medical floor he is alert and oriented 3 in no apparent distress there is no fever or chills no headache or dizziness no chest pain no shortness of breath no cough no nausea or vomiting no abdominal pain no diarrhea and no urinary symptoms. Hemoglobin today is down again to 6.51 unit of red blood cell transfusion was ordered. Yesterday patient underwent EGD and colonoscopy with Dr. 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 At this time will continue supportive care, advised to increase ambulation will consult physical therapy and occupational therapy will recheck labs in a.m. On 12/29/2021 patient is alert and oriented 3. Hemoglobin today 7.1. Did discuss case with GI team. Okay to resume eliquis and monitor hemoglobin. No signs of active bleeding. Patient denies chest pain or shortness of breath. Patient denies nausea vomiting or diarrhea. Patient denies any urinary burning or frequency. Total bilirubin also elevated at 4.5. 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 Repeat labs ordered for a.m. On 12/30/2021 patient was seen and examined on the medical floor he is alert and oriented 3 in no apparent distress there is no fever or chills no headache or dizziness no chest pain no shortness of breath no cough no nausea or vomiting no abdominal pain no diarrhea and no urinary symptoms, he is tolerating diet well, hemoglobin is down to 6.8 today, at this time he does not qualify for red blood cell transfusion, will give IV iron infusion today and recheck labs in a.m. On 12/31/2021 patient is alert and oriented 3. Hemoglobin 6.5. 1 unit PRBCs have been ordered. Per cardiology if anemia worsens okay to continue to hold eliquis on discharge and follow-up in office with cardiology services. Patient denies chest pain or shortness breath. Patient denies nausea vomiting or diarrhea. Patient denies any urinary burning or frequency patient denies any fu rther episodes of bleeding On 01/01/2022 patient is alert and oriented 3. Hemoglobin 6.9. 1 unit PRBCs have been ordered yesterday but not given due to shortage. Per cardiology if anemia worsens okay to continue to hold eliquis on discharge and follow-up in office with cardiology services. Patient denies chest pain or shortness breath. Patient denies nausea vomiting or diarrhea. Patient denies any urinary burning or frequency patient denies any further episodes of bleeding On 01/03/2022 patient is alert and oriented 3. Hemoglobin this a.m. 6.0 2 units have been ordered per hematology services. According to nursing staff patient is only able to perceive due to shortage. MRI of the liver has been ordered along with additional blood work per hematology services. This time patient denies chest pain or shortness of breath. Patient denies nausea vomiting or diarrhea. Patient denies any urinary burning or frequency Objective - Vital Signs Vital signs: Vital Signs Temp 98.2 F 01/03/22 04:40 Pulse 76 01/03/22 09:38 Resp 20 01/03/22 04:40 BP 91/69 01/03/22 09:38 Pulse Ox 90 L 01/03/22 04:40 Intake & Output 01/02/22 01/03/22 01/03/22 18:59 06:59 18:59 Intake Total 840 100 Output Total 500 Balance 340 100 Weight 93 kg Intake: Oral 840 100 Output: Urine 500 Other: Voiding Method Urinal Urinal # Bowel Movements 1 - Exam In general patient is alert and oriented x 3 in no distress HEENT head normocephalic and atraumatic Neck is supple no JVD no goiter no lymphadenopathy no carotid bruit Chest examination is clear to auscultation no crackles no wheezing Cardiac exam reveals regular heart sounds S1 and S2 no gallops no murmurs Abdomen is soft nontender no organomegaly with normal bowel sounds Extremity exam reveals no edema no cyanosis or clubbing Neurological examination reveals no gross focal deficits - Labs CBC & Chem 7: 01/03/22 05:37 01/03/22 05:37 Labs: Abnormal Lab Results - Last 24 Hours (Table) 01/02/22 01/02/22 01/03/22 Range/Units 06:03 06:03 05:37 RBC 1.74 L (4.30-5.90) m/uL Hgb 6.0 L* (13.0-17.5) gm/dL Hct 19.8 L* (39.0-53.0) % MCV 113.9 H (80.0-100.0) fL MCHC 30.4 L (31.0-37.0) g/dL RDW 22.3 H (11.5-15.5) % Lymphocytes # 0.9 L (1.0-4.8) k/uL Macrocytosis Marked A Retic Count 14.7 H (0.5-2.0) % Haptoglobin <10.0 L (31.2-198.0) mg/dL Carbon Dioxide (20.0-27.5) mmol/L Anion Gap (10.00-18.00) mmol/L Glucose (70-110) mg/dL Calcium (8.7-10.3) mg/dL Total Bilirubin (0.30-1.20) mg/dL ALT (10-49) U/L Albumin (3.8-4.9) g/dL Globulin (1.6-3.3) g/dL Albumin/Globulin Ratio (1.60-3.17) g/dL 01/03/22 Range/Units 05:37 RBC (4.30-5.90) m/uL Hgb (13.0-17.5) gm/dL Hct (39.0-53.0) % MCV (80.0-100.0) fL MCHC (31.0-37.0) g/dL RDW (11.5-15.5) % Lymphocytes # (1.0-4.8) k/uL Macrocytosis Retic Count (0.5-2.0) % Haptoglobin (31.2-198.0) mg/dL Carbon Dioxide 29.6 H (20.0-27.5) mmol/L Anion Gap 9.10 L (10.00-18.00) mmol/L Glucose 117 H (70-110) mg/dL Calcium 8.4 L (8.7-10.3) mg/dL Total Bilirubin 3.40 H (0.30-1.20) mg/dL ALT <5 L (10-49) U/L Albumin 3.2 L (3.8-4.9) g/dL Globulin 3.5 H (1.6-3.3) g/dL Albumin/Globulin Ratio 0.91 L (1.60-3.17) g/dL Assessment and Plan Plan: Anemia with hemoglobin of 6.0 on presentation, patient received 1 unit of red blood cell transfusion in the emergency room. 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 Status post argon plasma coagulation. Colonoscopy was normal. Per GI services okay to resume eliquis and monitor hemoglobin Elevated bilirubin with mild jaundice, with normal AST ALT and alkaline phosphatase, could be related to Gilbert's syndrome, hepatitis B and C profile and liver ultrasound ordered. Per GI services likely Gilbert's syndrome patient to follow-up outpatient Underlying history of hypertension Underlying history of hyperlipidemia Underlying history of atrial fibrillation maintained on eliquis Underlying history of gout Underlying history of [id number] diabetes mellitus Episode of chest pain after presentation Previous history of TIA Acute on chronic heart failure with reduced EF Worsening cardiomyopathy could be related to anemia bacteremia versus nonischemic. Cardiology services are following. 2-D echo completed showing an EF of 20-25% 12/29/2021 eliquis resumed per GI recommendation 12/31/2021 we'll hold eliquis this time due to ongoing anemia EGD and colonoscopy completed on 12/27/2021 Hematology services following. MRI of the liver ordered per hematology repeat Labs ordered
--- NOTE | 2022-01-03 10:32 | P.PN ---
Subjective Progress Note Date: 01/03/22 HISTORY OF PRESENT ILLNESS: This is a pleasant 76-year-old male past medical history significant for coronary artery disease status post prior CABG with LINDSEY to LAD, PCI in the osti um of the circumflex, left main and RCA, type 2 diabetes, ischemic cardiomyopathy, paroxysmal atrial fibrillation on Eliquis, recent left knee surgery in October 2021. He follows in the office with Dr. Mac. We have been asked to see in consultation for chest pain. Patient presents to the em ergency department with complaints of fatigue and generalized weakness. He had recent left knee surgery and felt he was not getting stronger. Found to have a hemoglobin of 6.0, received 1 unit PRBCs. On 12/24/21 night patient states he had an episode of chest pain. Located across his chest. Describes it as aching/tightness. He states it lasted a couple hours and resolved on its own, but did take 2 subligual nitro with some relief. He had no associated symptoms. It was non-radiating, non-exertional. He denies any symptoms of nausea, vomiting, diaphoresis, shortness of breath, lightheadedness, dizziness or palpitations. 2 Repeat EKGs with no acute changes. 4 cardiac enzymes were drawn and they were negative. He denies symptoms of shortness of breath, orthopnea, PND. His lungs are clear on exam and he has no lower extremity edema. Denies any bleeding in his urine or stool. Denies black stools 12/27/2021: patient underwent EGD and colonoscopy findings antral ectasia and 12 no angioedema ectasia without any bleeding, status post argon plasma coagulation. Colonoscopy was normal, no evidence of bleeding. 12/29/2021 Patient seen and examined at bedside, His breathing has improved, no shortness of breath and no chest pain. Yesterday the Repeat Echocardiogram revealed EF of 5%, LA severely dilated, moderate aortic stenosis peak/mean gradient of 41 mmHg/18 mmHg, mild mitral regurgitation, mild tricuspid regurgitation. Per GI services okay to resume eliquis and monitor hemoglobin. He has been weaned to room air. He's currently maintained on PO Lasix 40mg BID, atorvastatin 40 mg nightly, Imdur 15 mg daily, carvedilol 6.25 mg twice a day Labs: WBC 6.1, Hemoglobin 7.1 Plt 155, sodium 138, potassium 3.9, BUN 19, serum creatinine 1.07, mag 1.5. 01/03/2022 Cardiology has been re-consulted to evaluate patient for "heart murmur". The patient examined this morning at the bedside. Patient denies chest pain or pressure. He denies shortness of breath. Echocardiogram reviewed revealing ejection fraction 20-25%, moderate aortic stenosis, mild MR, mild TR, and moderate pulmonary hypertension. The patient has a known history of aortic stenosis. Patient's previous echocardiogram revealed mild aortic stenosis. PHYSICAL EXAM: VITAL SIGNS: Reviewed. GENERAL: Well-developed in no acute distress. NECK: Supple. No JVD or thyromegaly LUNGS: Respirations even and unlabored. Lungs essentially clear to auscultation bilaterally. HEART: Regular rate and rhythm. S1 and S2 heard. Systolic murmur noted. EXTREMITIES: Normal range of motion. No clubbing or cyanosis. Peripheral pulses intact. No lower extremity edema ASSESSMENT: Chest pain, atypical, acute coronary syndrome has ruled out Acute on chronic heart failure with reduced ejection fraction Anemia status post 3 units of PRBC transfusion Symptoms of generalized weakness and fatigue Worsening cardiomyopathy, could be related to anemia, ischemic vs non-ischemic Coronary artery disease status post prior CABG with LINDSEY to LAD, PCI in the ostium of the circumflex, left main and RCA Type 2 diabetes History of Ischemic cardiomyopathy Paroxysmal atrial fibrillation on Eliquis, currently in sinus mechanism Recent left knee surgery in October 2021 PLAN: Patients heart murmur is not new. Previous echo revealed mild . Repeat echo showing moderate . Due to acute anemia, patients aortic stenosis may appear worse than previous on echocardiogram. There is no acute intervention required at this time. Patient scheduled for MRI of the liver. Hematology/oncology following. No further inpatient recommendations from a cardiac standpoint. We will sign off. Please reconsult if needed. Nurse practitioner note has been reviewed by physician. Signing provider agrees with the documented findings, assessment, and plan of care. Objective - Vital Signs Vital signs: Vital Signs Temp 98.2 F 01/03/22 04:40 Pulse 76 01/03/22 09:38 Resp 20 01/03/22 08:00 BP 91/69 01/03/22 09:38 Pulse Ox 90 L 01/03/22 04:40 Intake & Output 01/02/22 01/03/22 01/03/22 18:59 06:59 18:59 Intake Total 840 100 Output Total 500 Balance 340 100 Weight 93 kg Intake: Oral 840 100 Output: Urine 500 Other: Voiding Method Urinal Urinal Urinal # Bowel Movements 1 - Labs CBC & Chem 7: 01/03/22 05:37 01/03/22 05:37 Labs: Abnormal Lab Results - Last 24 Hours (Table) 01/02/22 01/02/22 01/03/22 Range/Units 06:03 06:03 05:37 RBC 1.74 L (4.30-5.90) m/uL Hgb 6.0 L* (13.0-17.5) gm/dL Hct 19.8 L* (39.0-53.0) % MCV 113.9 H (80.0-100.0) fL MCHC 30.4 L (31.0-37.0) g/dL RDW 22.3 H (11.5-15.5) % Lymphocytes # 0.9 L (1.0-4.8) k/uL Macrocytosis Marked A Retic Count 14.7 H (0.5-2.0) % Haptoglobin <10.0 L (31.2-198.0) mg/dL Carbon Dioxide (20.0-27.5) mmol/L Anion Gap (10.00-18.00) mmol/L Glucose (70-110) mg/dL Calcium (8.7-10.3) mg/dL Total Bilirubin (0.30-1.20) mg/dL ALT (10-49) U/L Albumin (3.8-4.9) g/dL Globulin (1.6-3.3) g/dL Albumin/Globulin Ratio (1.60-3.17) g/dL 01/03/22 Range/Units 05:37 RBC (4.30-5.90) m/uL Hgb (13.0-17.5) gm/dL Hct (39.0-53.0) % MCV (80.0-100.0) fL MCHC (31.0-37.0) g/dL RDW (11.5-15.5) % Lymphocytes # (1.0-4.8) k/uL Macrocytosis Retic Count (0.5-2.0) % Haptoglobin (31.2-198.0) mg/dL Carbon Dioxide 29.6 H (20.0-27.5) mmol/L Anion Gap 9.10 L (10.00-18.00) mmol/L Glucose 117 H (70-110) mg/dL Calcium 8.4 L (8.7-10.3) mg/dL Total Bilirubin 3.40 H (0.30-1.20) mg/dL ALT <5 L (10-49) U/L Albumin 3.2 L (3.8-4.9) g/dL Globulin 3.5 H (1.6-3.3) g/dL Albumin/Globulin Ratio 0.91 L (1.60-3.17) g/dL
--- NOTE | 2022-01-03 12:49 | P.PN ---
Subjective Progress Note Date: 01/02/22 Patrick Banuelos, is a 76 year old male who presented to [facility] emergency room with a chief complaint of generalized weakness He was evaluated in the emergency room vital examination on presentation revealed a temperature of 97.7 pulse 65 respiration 18 blood pressure 105/55 pulse ox 95% on room air Laboratory data revealed a white blood count of 6.5 hemoglobin 6.0 platelet count 192 sodium 136 potassium 4.4 chloride 105 CO2 22 BUN 25 creatinine 1.01 glucose 143 Testing in the emergency room revealed EKG done in the emergency room revealed sinus rhythm with right bundle branch block and left anterior fascicular block, chest x-ray done in the emergency room revealed pulmonary congestion and mild heart failure and cardiomegaly. Patient was admitted to medical floor for further evaluation and treatment, gastroenterology consultation was requested 1 unit of red blood cell transfusion was given in the emergency room On 12/26/2020 patient was seen and examined on the medical floor he is alert and oriented 3 in no apparent distress there is no fever or chills no headache or dizziness no chest pain no shortness of breath no cough no nausea or vomiting no abdominal pain no diarrhea and no urinary symptoms he is scheduled tomorrow for EGD and colonoscopy and will receive preparation this afternoon, hemoglobin today is 6.8 will continue to monitor patient's received 1 unit of red blood cell transfusion in the emergency room On 12/27/2021 patient is alert and oriented 3. Plans for colonoscopy and EGD today per GI services labs currently pending cardiology and GI services following. Current vitals temp 97.9, pulse rate 69, respiratory rate 18, blood pressure 119/60. Patient stating 99% on 2 L. Repeat labs ordered for a.m. On 12/28/2021 patient was seen and examined on the medical floor he is alert and oriented 3 in no apparent distress there is no fever or chills no headache or dizziness no chest pain no shortness of breath no cough no nausea or vomiting no abdominal pain no diarrhea and no urinary symptoms. Hemoglobin today is down again to 6.51 unit of red blood cell transfusion was ordered. Yesterday patient underwent EGD and colonoscopy with Dr. 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 At this time will continue supportive care, advised to increase ambulation will consult physical therapy and occupational therapy will recheck labs in a.m. On 12/29/2021 patient is alert and oriented 3. Hemoglobin today 7.1. Did discuss case with GI team. Okay to resume eliquis and monitor hemoglobin. No signs of active bleeding. Patient denies chest pain or shortness of breath. Patient denies nausea vomiting or diarrhea. Patient denies any urinary burning or frequency. Total bilirubin also elevated at 4.5. 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 Repeat labs ordered for a.m. On 12/30/2021 patient was seen and examined on the medical floor he is alert and oriented 3 in no apparent distress there is no fever or chills no headache or dizziness no chest pain no shortness of breath no cough no nausea or vomiting no abdominal pain no diarrhea and no urinary symptoms, he is tolerating diet well, hemoglobin is down to 6.8 today, at this time he does not qualify for red blood cell transfusion, will give IV iron infusion today and recheck labs in a.m. On 12/31/2021 patient is alert and oriented 3. Hemoglobin 6.5. 1 unit PRBCs have been ordered. Per cardiology if anemia worsens okay to continue to hold eliquis on discharge and follow-up in office with cardiology services. Patient denies chest pain or shortness breath. Patient denies nausea vomiting or diarrhea. Patient denies any urinary burning or frequency patient denies any fu rther episodes of bleeding On 01/01/2022 patient is alert and oriented 3. Hemoglobin 6.9. 1 unit PRBCs have been ordered yesterday but not given due to shortage. Per cardiology if anemia worsens okay to continue to hold eliquis on discharge and follow-up in office with cardiology services. Patient denies chest pain or shortness breath. Patient denies nausea vomiting or diarrhea. Patient denies any urinary burning or frequency patient denies any further episodes of bleeding On 01/02/2022 patient is alert and oriented 3. Hemoglobin 6.5. 1 unit PRBCs have been ordered todaybut not given due to shortage. Per cardiology if anemia worsens okay to continue to hold eliquis on discharge and follow-up in office with cardiology services. Patient denies chest pain or shortness breath. Patient denies nausea vomiting or diarrhea. Patient denies any urinary burning or frequency patient denies any further episodes of bleeding. At this time will add hematology consult regarding severe anemia and jaundice. Objective - Vital Signs Vital signs: Vital Signs Temp 97.8 F 01/02/22 12:10 Pulse 68 01/02/22 12:10 Resp 14 01/02/22 12:10 BP 103/55 01/02/22 12:10 Pulse Ox 95 01/02/22 12:10 Intake & Output 01/01/22 01/02/22 01/02/22 18:59 06:59 18:59 Intake Total 300 840 Output Total 1000 400 500 Balance -1000 -100 340 Weight 90.5 kg 90 kg Intake: Oral 300 840 Output: Urine 1000 400 500 Other: Voiding Method Bedside Commode Bedside Commode Urinal Urinal Urinal Diaper Diaper # Bowel Movements 1 - Exam In general patient is alert and oriented x 3 in no distress HEENT head normocephalic and atraumatic Neck is supple no JVD no goiter no lymphadenopathy no carotid bruit Chest examination is clear to auscultation no crackles no wheezing Cardiac exam reveals regular heart sounds S1 and S2 no gallops no murmurs Abdomen is soft nontender no organomegaly with normal bowel sounds Extremity exam reveals no edema no cyanosis or clubbing Neurological examination reveals no gross focal deficits - Labs CBC & Chem 7: 01/03/22 05:37 01/03/22 05:37 Labs: Abnormal Lab Results - Last 24 Hours (Table) 01/02/22 01/02/22 Range/Units 06:03 06:03 RBC 1.83 L (4.30-5.90) m/uL Hgb 6.5 L* (13.0-17.5) gm/dL Hct 20.3 L (39.0-53.0) % MCV 111.0 H (80.0-100.0) fL MCH 35.5 H (25.0-35.0) pg RDW 20.6 H (11.5-15.5) % Lymphocytes # 0.9 L (1.0-4.8) k/uL Macrocytosis Marked A Sodium 135 L (137-145) mmol/L Carbon Dioxide 35 H (22-30) mmol/L Glucose 111 H (74-99) mg/dL Calcium 8.0 L (8.4-10.2) mg/dL Total Bilirubin 4.8 H (0.2-1.3) mg/dL Albumin 2.9 L (3.5-5.0) g/dL Assessment and Plan Plan: Anemia with hemoglobin of 6.0 on presentation, patient received 1 unit of red blood cell transfusion in the emergency room. 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 Status post argon plasma coagulation. Colonoscopy was normal. Per GI services okay to resume eliquis and monitor hemoglobin Elevated bilirubin with mild jaundice, with normal AST ALT and alkaline phosphatase, could be related to Gilbert's syndrome, hepatitis B and C profile and liver ultrasound ordered. 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 Cardiology services are following. 2-D echo completed showing an EF of 20-25% At this time patient is admitted to medical floor and gastroenterology consultation was requested 1 unit of red blood cell transfusion was given Will monitor hemoglobin closely 12/29/2021 eliquis resumed per GI recommendation 12/31/2021 we'll hold eliquis this time due to ongoing anemia Plans for EGD and colonoscopy completed on 12/27/2021 repeat Labs ordered
[2022-01-03] MEDS ORDERED: methylPREDNISolone SOD SUCCI 125 MG/2 ML VIAL IV STA (12:57)
[2022-01-03 13:01] LABS: Free Kappa Lt Chain Qnt, Serum 18.91 mg/dL (0.33-1.94)
--- NOTE | 2022-01-03 14:07 | P.PN ---
Subjective Progress Note Date: 01/03/22 Principal diagnosis: anemia In f/u pt has no specific c/o, mild anemia symptoms, tires easily, SOB with exertion, no bleeding reported. Objective - Vital Signs Vital signs: Vital Signs Temp 97.2 F L 01/03/22 12:41 Pulse 75 01/03/22 12:41 Resp 18 01/03/22 12:41 BP 101/59 01/03/22 12:41 Pulse Ox 93 L 01/03/22 12:41 Intake & Output 01/02/22 01/03/22 01/03/22 18:59 06:59 18:59 Intake Total 840 100 0 Output Total 500 Balance 340 100 0 Weight 93 kg Intake: Oral 840 100 Blood Product 0 Rc As-1 Unit 0 [id number] Output: Urine 500 Other: Voiding Method Urinal Urinal Urinal # Bowel Movements 1 - Constitutional General appearance: Present: average body habitus, cooperative, no acute distress - EENT Eyes: Present: EOMI, scleral icterus ENT: Present: hearing grossly normal - Respiratory Respiratory: bilateral: CTA - Cardiovascular Rhythm: irregularly irregular Heart sounds: abnormal: S2 Abnormal Heart Sounds: Present: systolic murmur - Peripheral edema leg Peripheral Edema: bilateral: None - Gastrointestinal General gastrointestinal: Present: hepatomegaly, normal bowel sounds, soft. Absent: absent bowel sounds, decreased bowel sounds, distended, hyperactive bowel sounds, organomegaly, rigid, scaphoid, splenomegaly, tenderness, umbilical hernia, ventral hernia - Integumentary Integumentary: Present: jaundiced, pale - Neurologic Neurologic: Present: CNII-XII intact - Musculoskeletal Musculoskeletal: Present: generalized weakness, strength equal bilaterally - Psychiatric Psychiatric: Present: A&O x's 3, appropriate affect, intact judgment & insight - Labs CBC & Chem 7: 01/03/22 05:37 01/03/22 05:37 Labs: Abnormal Lab Results - Last 24 Hours (Table) 01/02/22 01/02/22 01/02/22 Range/Units 06:03 06:03 06:03 RBC (4.30-5.90) m/uL Hgb (13.0-17.5) gm/dL Hct (39.0-53.0) % MCV (80.0-100.0) fL MCHC (31.0-37.0) g/dL RDW (11.5-15.5) % Lymphocytes # (1.0-4.8) k/uL Macrocytosis Retic Count 14.7 H (0.5-2.0) % Haptoglobin <10.0 L (31.2-198.0) mg/dL Carbon Dioxide (20.0-27.5) mmol/L Anion Gap (10.00-18.00) mmol/L Glucose (70-110) mg/dL Calcium (8.7-10.3) mg/dL Total Bilirubin (0.30-1.20) mg/dL ALT (10-49) U/L Albumin (3.8-4.9) g/dL Globulin (1.6-3.3) g/dL Albumin/Globulin Ratio (1.60-3.17) g/dL Free [place] LC, Quant 18.91 H (0.33-1.94) mg/dL Free [place] LC, Quant 7.50 H (0.57-2.63) mg/dL Crossmatch 01/03/22 01/03/22 01/03/22 Range/Units 05:37 05:37 07:20 RBC 1.74 L (4.30-5.90) m/uL Hgb 6.0 L* (13.0-17.5) gm/dL Hct 19.8 L* (39.0-53.0) % MCV 113.9 H (80.0-100.0) fL MCHC 30.4 L (31.0-37.0) g/dL RDW 22.3 H (11.5-15.5) % Lymphocytes # 0.9 L (1.0-4.8) k/uL Macrocytosis Marked A Retic Count (0.5-2.0) % Haptoglobin (31.2-198.0) mg/dL Carbon Dioxide 29.6 H (20.0-27.5) mmol/L Anion Gap 9.10 L (10.00-18.00) mmol/L Glucose 117 H (70-110) mg/dL Calcium 8.4 L (8.7-10.3) mg/dL Total Bilirubin 3.40 H (0.30-1.20) mg/dL ALT <5 L (10-49) U/L Albumin 3.2 L (3.8-4.9) g/dL Globulin 3.5 H (1.6-3.3) g/dL Albumin/Globulin Ratio 0.91 L (1.60-3.17) g/dL Free [place] LC, Quant (0.33-1.94) mg/dL Free Lambda LC, Quant (0.57-2.63) mg/dL Crossmatch See Detail Assessment and Plan (1) Macrocytic anemia Narrative/Plan: On chart review patient has been anemic two other times, last time was when he had the infection in the knee, 08/2021 into October 2020. Macrocytosis is new 12/19. Blirubin has progressively worsened since 12/19. Pt has received 3 units of blood since admission with no appropriate increase in hemoglobin. 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 Colonoscopy was negative for malignancy or bleeding. Hemolysis workup ordered-retic high and haptoglobin low but LDH normal, no ab on PRBC screen-less likely to be hemolysis. Cold agglutinin ordered. Steroids sta rted. Did discuss case with Cardiology FIRE [employer] TECHNICIAN B. Ferritin elevated, iron studies normal. B12 low-normal, folic acid normal. Methylmalonic acid ordered. US revealing hepatomegaly. MRI ordered, pending CBC daily Current Visit: Yes Status: Acute Priority: High Code(s): D53.9 - NUTRITIONAL ANEMIA, UNSPECIFIED SNOMED Code(s): 00871622 Plan: Doctor attests: I performed a history and physical examination of this patient, developed impression and plan of care, discussed with dictator. I agree with dictators note, documented as a scribe.
[2022-01-03] MEDS: methylPREDNISolone SOD SUCCI 125 MG/2 ML VIAL IV SCH (18:07)
[2022-01-03] MEDS: MAGNESIUM OXIDE 400 MG TAB PO SCH (21:52)
[2022-01-03] MEDS: ATORVASTATIN 40 MG TAB PO SCH (21:52)
[2022-01-03] MEDS: FINASTERIDE 5 MG TAB PO SCH (21:52)
--- NOTE | 2022-01-03 22:21 | MR ---
EXAMINATION TYPE: MR liver wo/w con DATE OF EXAM: 01/03/2022 COMPARISON: None HISTORY: hepatomegaly. CONTRAST: Standard multiplanar, multisequence MRI departmental protocol images were obtained without contrast a nd with 10 mL intravenous Gadavist gadolinium contrast. Spleen is enlarged and measures 20.5 cm in length. Liver measures 19 cm in length. There are small bi lateral pleural effusions. Heart is probably enlarged. There is no sign of pericardial effusion. There is no evidence of pancreatic mass. The stomach has no rmal size. Kidneys have normal size and contour. There is no hydronephrosis. There is no evidence of renal mass. The bile ducts are not dilated. Contrast images show normal enhancement of the portal venous system and the venous system.. Gallbladder appears absent. There is no ascites. There is no evidence of retr operitoneal adenopathy. There is no evidence of a bowel obstruction. IMPRESSION: There is moderate splenomegaly. Small pleural effusions are noted. No focal liver defect. No evidence of hepatomegaly.
[2022-01-04] MEDS: methylPREDNISolone SOD SUCCI 125 MG/2 ML VIAL IV SCH ×5 (01:07→22:11)
[2022-01-04] MEDS: SYMBICORT 80-4.5 MCG INHALER INHALATION SCH ×2 (07:28→20:15)
[2022-01-04] MEDS: GABAPENTIN 400 MG CAP PO SCH ×3 (08:32→22:11)
[2022-01-04] MEDS: ISOSORBIDE MONONITRATE ER 15 MG TAB PO SCH (08:32)
[2022-01-04] MEDS: allopurinoL 300 MG TAB PO SCH (08:33)
[2022-01-04] MEDS: PANTOPRAZOLE 40 MG TABLET PO SCH (08:33)
[2022-01-04] MEDS: LEVOTHYROXINE 112 MCG TAB PO SCH (08:33)
[2022-01-04] MEDS: FUROSEMIDE 40 MG TAB PO SCH ×2 (08:33→15:44)
[2022-01-04] MEDS: LEVOTHYROXINE 125 MCG TAB PO SCH (08:34)
[2022-01-04] MEDS: carvediloL 6.25 MG TAB PO SCH ×2 (08:36→17:08)
[2022-01-04 09:08] LABS: ALT <5 U/L (10-49); AST 12 U/L (14-35); African American GFR (CKD) 74.7 (60.0-200.0); Albumin 3.3 g/dL (3.8-4.9); Albumin/Globulin Ratio 0.92 (1.60-3.17); Alkaline Phosphatase 63 U/L (41-126); BUN/Creat Ratio 21.36 Ratio (12.00-20.00); Blood Urea Nitrogen 23.5 mg/dL (9.0-27.0); Calcium 8.5 mg/dL (8.7-10.3); Carbon Dioxide 25.9 mmol/L (20.0-27.5); Chloride 97 mmol/L (96-109); Globulin 3.6 g/dL (1.6-3.3); Glucose 275 mg/dL (70-110); Non-African American GFR(CKD) 64.4 (60.0-200.0); Potassium 4.3 mmol/L (3.5-5.5); Sodium 135 mmol/L (135-145); Total Protein 6.9 g/dL (6.2-8.2)
[2022-01-04 09:43] LABS: HCT 19.8 % (39.6-50.0); MCHC 30.3 g/dL (32.0-37.0); MCV 108.8 fL (80.0-97.0); Mean Platelet Volume 9.7 fL (9.5-12.2); NRBC Per 100 WBC 0 /100 WBCS (0.0-0.0); Platelet Count 121 X 10*3/uL (140-440); RBC 1.82 X 10*6/uL (4.40-5.60); RDW 24.7 % (11.5-14.5); WBC 2.32 X 10*3/uL (4.50-10.00)
[2022-01-04 10:09] LABS: Basophils # (A) 0 X 10*3/uL (0.00-0.10); Basophils % (A) 0 %; Eosinophils # (A) 0 X 10*3/uL (0.04-0.35); Eosinophils % (A) 0 %; Immature Grans, Automated 0.9 %; Lymphocytes # (A) 0.21 X 10*3/uL (0.90-5.00); Lymphocytes % (A) 9.1 %; Monocytes # (A) 0.04 X 10*3/uL (0.20-1.00); Monocytes % (A) 1.7 %; Neutrophils # (A) 2.05 X 10*3/uL (1.80-7.70); Neutrophils % (A) 88.3 %
[2022-01-04 10:10] LABS: Anisocytosis (M) 2+; Macrocytosis (M) 2+
--- NOTE | 2022-01-04 10:22 | P.PN ---
Subjective Progress Note Date: 01/04/22 Principal diagnosis: anemia, not responding to transfusion In f/u pt continues to be pleasant, tolerating oral intake, has symptoms of anemia with activity-SOB on exertion, weakness, easily tired. No bleeding, bruising or pain reported. Objective - Vital Signs Vital signs: Vital Signs Temp 97.4 F L 01/04/22 04:39 Pulse 66 01/04/22 04:39 Resp 16 01/04/22 04:39 BP 114/64 01/04/22 04:39 Pulse Ox 94 L 01/04/22 04:39 Intake & Output 01/03/22 01/04/22 01/04/22 18:59 06:59 18:59 Intake Total 310 Output Total 1 1 Balance 309 -1 Weight 94 kg Intake: Blood Product 310 Rc As-1 Unit 310 [id number] Output: Urine 1 1 Other: Voiding Method Urinal Urinal # Voids 200 200 # Bowel Movements 2 2 - Constitutional General appearance: Present: average body habitus, cooperative, no acute distress - EENT Eyes: Present: EOMI, scleral icterus ENT: Present: hearing grossly normal, normal oropharynx - Respiratory Details: resp even and unlabored - Integumentary Integumentary: Present: jaundiced, pale - Neurologic Neurologic: Present: CNII-XII intact - Musculoskeletal Musculoskeletal: Present: generalized weakness - Psychiatric Psychiatric: Present: A&O x's 3, appropriate affect, intact judgment & insight - Labs CBC & Chem 7: 01/04/22 06:15 01/04/22 06:15 Labs: Abnormal Lab Results - Last 24 Hours (Table) 01/02/22 01/03/22 01/04/22 Range/Units 06:03 07:20 06:15 WBC 2.32 L (4.50-10.00) X 10*3/uL RBC 1.82 L (4.40-5.60) X 10*6/uL Hgb 6.0 L* (13.0-17.0) g/dL Hct 19.8 L* (39.6-50.0) % MCV 108.8 H (80.0-97.0) fL MCH 33.0 H (27.0-32.0) pg MCHC 30.3 L (32.0-37.0) g/dL RDW 24.7 H (11.5-14.5) % Plt Count 121 L (140-440) X 10*3/uL BUN/Creatinine Ratio (12.00-20.00) Ratio Glucose (70-110) mg/dL Calcium (8.7-10.3) mg/dL Total Bilirubin (0.30-1.20) mg/dL AST (14-35) U/L ALT (10-49) U/L Albumin (3.8-4.9) g/dL Globulin (1.6-3.3) g/dL Albumin/Globulin Ratio (1.60-3.17) g/dL Free [place] LC, Quant 18.91 H (0.33-1.94) mg/dL Free Lambda LC, Quant 7.50 H (0.57-2.63) mg/dL Crossmatch See Detail 01/04/22 Range/Units 06:15 WBC (4.50-10.00) X 10*3/uL RBC (4.40-5.60) X 10*6/uL Hgb (13.0-17.0) g/dL Hct (39.6-50.0) % MCV (80.0-97.0) fL MCH (27.0-32.0) pg MCHC (32.0-37.0) g/dL RDW (11.5-14.5) % Plt Count (140-440) X 10*3/uL BUN/Creatinine Ratio 21.36 H (12.00-20.00) Ratio Glucose 275 H (70-110) mg/dL Calcium 8.5 L (8.7-10.3) mg/dL Total Bilirubin 1.80 H (0.30-1.20) mg/dL AST 12 L (14-35) U/L ALT <5 L (10-49) U/L Albumin 3.3 L (3.8-4.9) g/dL Globulin 3.6 H (1.6-3.3) g/dL Albumin/Globulin Ratio 0.92 L (1.60-3.17) g/dL Free [place] LC, Quant (0.33-1.94) mg/dL Free Lambda LC, Quant (0.57-2.63) mg/dL Crossmatch - Imaging and Cardiology MRI - abdomen: report reviewed Assessment and Plan (1) Macrocytic anemia Narrative/Plan: On chart review patient has been anemic two other times, last time was when he had the infection in the knee, 08/2021 into October 2020. Macrocytosis is new 12/19. Bilirubin is down today to 1.8. Pt has now received 4 units of blood since admission, no reasonable increase in hemoglobin. 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 Colonoscopy was negative for malignancy or bleeding. Hemolysis workup ordered-retic high and haptoglobin low but LDH normal, no ab on PRBC screen-less likely to be hemolysis. Cold agglutinin pending. Steroids started yesterday. Did discuss case with Cardiology PEDIATRICIAN MANAGING PARTNER yesterday. Ferritin elevated, iron studies normal. B12 low-normal, folic acid normal. Methylmalonic acid ordered. US revealing hepatomegaly. MRI reporting no concerning findings in the liver and splenomegaly Cont CBC daily Will order 1 unit PRBCs for Hgb 6 today. Current Visit: Yes Status: Acute Priority: High Code(s): D53.9 - NUTRITIONAL ANEMIA, UNSPECIFIED SNOMED Code(s): 33998387 Plan: Doctor attests: I performed a history and physical examination of this patient, developed impression and plan of care, discussed with dictator. I agree with dictators note, documented as a scribe.
[2022-01-04] MEDS: SODIUM CHLORIDE 0.9% 1,000 ML IV SCH (17:52)
[2022-01-04 20:13] LABS: Glucose,Whole Blood 411 mg/dL (75-99)
[2022-01-04] MEDS: MAGNESIUM OXIDE 400 MG TAB PO SCH (22:11)
[2022-01-04] MEDS: FINASTERIDE 5 MG TAB PO SCH (22:11)
[2022-01-04] MEDS: ATORVASTATIN 40 MG TAB PO SCH (22:11)
[2022-01-04] MEDS: INSULIN ASPART (NovoLOG) 100 UNIT/ML VIAL SQ SCH (22:12)
[2022-01-05] MEDS: methylPREDNISolone SOD SUCCI 125 MG/2 ML VIAL IV SCH ×4 (06:23→23:28)
[2022-01-05] MEDS: LEVOTHYROXINE 125 MCG TAB PO SCH (06:25)
[2022-01-05] MEDS: LEVOTHYROXINE 112 MCG TAB PO SCH (06:25)
[2022-01-05 06:42] LABS: Anisocytosis Moderate; Hypochromasia Marked; MCH 33.8 pg (25.0-35.0); MCHC 31.5 g/dL (31.0-37.0); Macrocytosis Marked; Mean Platelet Volume 8.4; Platelet Count 128 k/uL (150-450); Poikilocytosis Slight; RBC 2.05 m/uL (4.30-5.90); RDW 22.2 % (11.5-15.5); WBC 4.6 k/uL (3.8-10.6)
[2022-01-05 06:57] LABS: HGB 6.9 gm/dL (13.0-17.5); MCV 107.3 fL (80.0-100.0)
[2022-01-05 07:04] LABS: Glucose,Whole Blood 370 mg/dL (75-99)
[2022-01-05] MEDS: SYMBICORT 80-4.5 MCG INHALER INHALATION SCH ×2 (07:19→19:12)
[2022-01-05] MEDS: carvediloL 6.25 MG TAB PO SCH ×2 (07:43→17:17)
[2022-01-05] MEDS: allopurinoL 300 MG TAB PO SCH (07:44)
[2022-01-05] MEDS: GABAPENTIN 400 MG CAP PO SCH ×3 (07:44→20:32)
[2022-01-05] MEDS: PANTOPRAZOLE 40 MG TABLET PO SCH (07:44)
[2022-01-05] MEDS: FUROSEMIDE 40 MG TAB PO SCH ×2 (07:44→16:36)
[2022-01-05] MEDS: INSULIN ASPART (NovoLOG) 100 UNIT/ML VIAL SQ SCH ×5 (07:44→20:31)
[2022-01-05] MEDS: ISOSORBIDE MONONITRATE ER 15 MG TAB PO SCH (07:44)
--- NOTE | 2022-01-05 10:36 | P.PN ---
Subjective Progress Note Date: 01/04/22 Patrick Banuelos, is a 76 year old male who presented to [facility] emergency room with a chief complaint of generalized weakness He was evaluated in the emergency room vital examination on presentation revealed a temperature of 97.7 pulse 65 respiration 18 blood pressure 105/55 pulse ox 95% on room air Laboratory data revealed a white blood count of 6.5 hemoglobin 6.0 platelet count 192 sodium 136 potassium 4.4 chloride 105 CO2 22 BUN 25 creatinine 1.01 glucose 143 Testing in the emergency room revealed EKG done in the emergency room revealed sinus rhythm with right bundle branch block and left anterior fascicular block, chest x-ray done in the emergency room revealed pulmonary congestion and mild heart failure and cardiomegaly. Patient was admitted to medical floor for further evaluation and treatment, gastroenterology consultation was requested 1 unit of red blood cell transfusion was given in the emergency room On 12/26/2020 patient was seen and examined on the medical floor he is alert and oriented 3 in no apparent distress there is no fever or chills no headache or dizziness no chest pain no shortness of breath no cough no nausea or vomiting no abdominal pain no diarrhea and no urinary symptoms he is scheduled tomorrow for EGD and colonoscopy and will receive preparation this afternoon, hemoglobin today is 6.8 will continue to monitor patient's received 1 unit of red blood cell transfusion in the emergency room On 12/27/2021 patient is alert and oriented 3. Plans for colonoscopy and EGD today per GI services labs currently pending cardiology and GI services following. Current vitals temp 97.9, pulse rate 69, respiratory rate 18, blood pressure 119/60. Patient stating 99% on 2 L. Repeat labs ordered for a.m. On 12/28/2021 patient was seen and examined on the medical floor he is alert and oriented 3 in no apparent distress there is no fever or chills no headache or dizziness no chest pain no shortness of breath no cough no nausea or vomiting no abdominal pain no diarrhea and no urinary symptoms. Hemoglobin today is down again to 6.51 unit of red blood cell transfusion was ordered. Yesterday patient underwent EGD and colonoscopy with Dr. 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 At this time will continue supportive care, advised to increase ambulation will consult physical therapy and occupational therapy will recheck labs in a.m. On 12/29/2021 patient is alert and oriented 3. Hemoglobin today 7.1. Did discuss case with GI team. Okay to resume eliquis and monitor hemoglobin. No signs of active bleeding. Patient denies chest pain or shortness of breath. Patient denies nausea vomiting or diarrhea. Patient denies any urinary burning or frequency. Total bilirubin also elevated at 4.5. 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 Repeat labs ordered for a.m. On 12/30/2021 patient was seen and examined on the medical floor he is alert and oriented 3 in no apparent distress there is no fever or chills no headache or dizziness no chest pain no shortness of breath no cough no nausea or vomiting no abdominal pain no diarrhea and no urinary symptoms, he is tolerating diet well, hemoglobin is down to 6.8 today, at this time he does not qualify for red blood cell transfusion, will give IV iron infusion today and recheck labs in a.m. On 12/31/2021 patient is alert and oriented 3. Hemoglobin 6.5. 1 unit PRBCs have been ordered. Per cardiology if anemia worsens okay to continue to hold eliquis on discharge and follow-up in office with cardiology services. Patient denies chest pain or shortness breath. Patient denies nausea vomiting or diarrhea. Patient denies any urinary burning or frequency patient denies any fu rther episodes of bleeding On 01/01/2022 patient is alert and oriented 3. Hemoglobin 6.9. 1 unit PRBCs have been ordered yesterday but not given due to shortage. Per cardiology if anemia worsens okay to continue to hold eliquis on discharge and follow-up in office with cardiology services. Patient denies chest pain or shortness breath. Patient denies nausea vomiting or diarrhea. Patient denies any urinary burning or frequency patient denies any further episodes of bleeding On 01/02/2022 patient is alert and oriented 3. Hemoglobin 6.5. 1 unit PRBCs have been ordered todaybut not given due to shortage. Per cardiology if anemia worsens okay to continue to hold eliquis on discharge and follow-up in office with cardiology services. Patient denies chest pain or shortness breath. Patient denies nausea vomiting or diarrhea. Patient denies any urinary burning or frequency patient denies any further episodes of bleeding. At this time will add hematology consult regarding severe anemia and jaundice. On 01/04/2022 patient is alert and oriented 3. Hemoglobin remains low at 6.0 additional unit of PRBCs has been ordered per oncology services. No further episodes of bleeding. Patient denies chest pain or shortness breath. Patient denies nausea vomiting or diarrhea. Patient denies any urinary burning or frequency Objective - Vital Signs Vital signs: Vital Signs Temp 97.6 F 01/04/22 14:22 Pulse 74 01/04/22 14:22 Resp 16 01/04/22 14:22 BP 111/56 01/04/22 14:22 Pulse Ox 97 01/04/22 14:22 Intake & Output 01/03/22 01/04/22 01/04/22 18:59 06:59 18:59 Intake Total 310 310 Output Total 1 1 1 Balance 309 -1 309 Weight 94 kg Intake: Blood Product 310 310 Rc As-1 Unit 310 [id number] Rc As-1 Unit 310 [id number] Output: Urine 1 1 1 Other: Voiding Method Urinal Urinal # Voids 200 200 250 # Bowel Movements 2 2 - Exam In general patient is alert and oriented x 3 in no distress HEENT head normocephalic and atraumatic Neck is supple no JVD no goiter no lymphadenopathy no carotid bruit Chest examination is clear to auscultation no crackles no wheezing Cardiac exam reveals regular heart sounds S1 and S2 no gallops no murmurs Abdomen is soft nontender no organomegaly with normal bowel sounds Extremity exam reveals no edema no cyanosis or clubbing Neurological examination reveals no gross focal deficits - Labs CBC & Chem 7: 01/05/22 06:00 01/04/22 06:15 Labs: Abnormal Lab Results - Last 24 Hours (Table) 01/03/22 01/04/22 01/04/22 Range/Units 07:20 06:15 06:15 WBC 2.32 L (4.50-10.00) X 10*3/uL RBC 1.82 L (4.40-5.60) X 10*6/uL Hgb 6.0 L* (13.0-17.0) g/dL Hct 19.8 L* (39.6-50.0) % MCV 108.8 H (80.0-97.0) fL MCH 33.0 H (27.0-32.0) pg MCHC 30.3 L (32.0-37.0) g/dL RDW 24.7 H (11.5-14.5) % Plt Count 121 L (140-440) X 10*3/uL Lymphocytes # 0.21 L (0.90-5.00) X 10*3/uL Monocytes # 0.04 L (0.20-1.00) X 10*3/uL Eosinophils # 0 L (0.04-0.35) X 10*3/uL BUN/Creatinine Ratio 21.36 H (12.00-20.00) Ratio Glucose 275 H (70-110) mg/dL Calcium 8.5 L (8.7-10.3) mg/dL Total Bilirubin 1.80 H (0.30-1.20) mg/dL AST 12 L (14-35) U/L ALT <5 L (10-49) U/L Albumin 3.3 L (3.8-4.9) g/dL Globulin 3.6 H (1.6-3.3) g/dL Albumin/Globulin Ratio 0.92 L (1.60-3.17) g/dL Crossmatch See Detail Assessment and Plan Plan: Anemia with hemoglobin of 6.0 on presentation, patient received 1 unit of red blood cell transfusion in the emergency room. 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 Status post argon plasma coagulation. Colonoscopy was normal. Per GI services okay to resume eliquis and monitor hemoglobin Elevated bilirubin with mild jaundice, with normal AST ALT and alkaline phosphatase, could be related to Gilbert's syndrome, hepatitis B and C profile and liver ultrasound ordered. 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 Cardiology services are following. 2-D echo completed showing an EF of 20-25% At this time patient is admitted to medical floor and gastroenterology consultation was requested 1 unit of red blood cell transfusion was given Will monitor hemoglobin closely 12/29/2021 eliquis resumed per GI recommendation 12/31/2021 we'll hold eliquis this time due to ongoing anemia Plans for EGD and colonoscopy completed on 12/27/2021 repeat Labs ordered
--- NOTE | 2022-01-05 10:38 | P.PN ---
Subjective Progress Note Date: 01/05/22 Patrick Banuelos, is a 76 year old male who presented to [facility] emergency room with a chief complaint of generalized weakness He was evaluated in the emergency room vital examination on presentation revealed a temperature of 97.7 pulse 65 respiration 18 blood pressure 105/55 pulse ox 95% on room air Laboratory data revealed a white blood count of 6.5 hemoglobin 6.0 platelet count 192 sodium 136 potassium 4.4 chloride 105 CO2 22 BUN 25 creatinine 1.01 glucose 143 Testing in the emergency room revealed EKG done in the emergency room revealed sinus rhythm with right bundle branch block and left anterior fascicular block, chest x-ray done in the emergency room revealed pulmonary congestion and mild heart failure and cardiomegaly. Patient was admitted to medical floor for further evaluation and treatment, gastroenterology consultation was requested 1 unit of red blood cell transfusion was given in the emergency room On 12/26/2020 patient was seen and examined on the medical floor he is alert and oriented 3 in no apparent distress there is no fever or chills no headache or dizziness no chest pain no shortness of breath no cough no nausea or vomiting no abdominal pain no diarrhea and no urinary symptoms he is scheduled tomorrow for EGD and colonoscopy and will receive preparation this afternoon, hemoglobin today is 6.8 will continue to monitor patient's received 1 unit of red blood cell transfusion in the emergency room On 12/27/2021 patient is alert and oriented 3. Plans for colonoscopy and EGD today per GI services labs currently pending cardiology and GI services following. Current vitals temp 97.9, pulse rate 69, respiratory rate 18, blood pressure 119/60. Patient stating 99% on 2 L. Repeat labs ordered for a.m. On 12/28/2021 patient was seen and examined on the medical floor he is alert and oriented 3 in no apparent distress there is no fever or chills no headache or dizziness no chest pain no shortness of breath no cough no nausea or vomiting no abdominal pain no diarrhea and no urinary symptoms. Hemoglobin today is down again to 6.51 unit of red blood cell transfusion was ordered. Yesterday patient underwent EGD and colonoscopy with Dr. 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 At this time will continue supportive care, advised to increase ambulation will consult physical therapy and occupational therapy will recheck labs in a.m. On 12/29/2021 patient is alert and oriented 3. Hemoglobin today 7.1. Did discuss case with GI team. Okay to resume eliquis and monitor hemoglobin. No signs of active bleeding. Patient denies chest pain or shortness of breath. Patient denies nausea vomiting or diarrhea. Patient denies any urinary burning or frequency. Total bilirubin also elevated at 4.5. 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 Repeat labs ordered for a.m. On 12/30/2021 patient was seen and examined on the medical floor he is alert and oriented 3 in no apparent distress there is no fever or chills no headache or dizziness no chest pain no shortness of breath no cough no nausea or vomiting no abdominal pain no diarrhea and no urinary symptoms, he is tolerating diet well, hemoglobin is down to 6.8 today, at this time he does not qualify for red blood cell transfusion, will give IV iron infusion today and recheck labs in a.m. On 12/31/2021 patient is alert and oriented 3. Hemoglobin 6.5. 1 unit PRBCs have been ordered. Per cardiology if anemia worsens okay to continue to hold eliquis on discharge and follow-up in office with cardiology services. Patient denies chest pain or shortness breath. Patient denies nausea vomiting or diarrhea. Patient denies any urinary burning or frequency patient denies any fu rther episodes of bleeding On 01/01/2022 patient is alert and oriented 3. Hemoglobin 6.9. 1 unit PRBCs have been ordered yesterday but not given due to shortage. Per cardiology if anemia worsens okay to continue to hold eliquis on discharge and follow-up in office with cardiology services. Patient denies chest pain or shortness breath. Patient denies nausea vomiting or diarrhea. Patient denies any urinary burning or frequency patient denies any further episodes of bleeding On 01/02/2022 patient is alert and oriented 3. Hemoglobin 6.5. 1 unit PRBCs have been ordered todaybut not given due to shortage. Per cardiology if anemia worsens okay to continue to hold eliquis on discharge and follow-up in office with cardiology services. Patient denies chest pain or shortness breath. Patient denies nausea vomiting or diarrhea. Patient denies any urinary burning or frequency patient denies any further episodes of bleeding. At this time will add hematology consult regarding severe anemia and jaundice. On 01/04/2022 patient is alert and oriented 3. Hemoglobin remains low at 6.0 additional unit of PRBCs has been ordered per oncology services. No further episodes of bleeding. Patient denies chest pain or shortness breath. Patient denies nausea vomiting or diarrhea. Patient denies any urinary burning or frequency On 01/05/2022 patient is alert and oriented 3. Globin slightly improved to 6.9 patient did receive 1 unit PRBCs yesterday. No further signs of bleeding. MRI of the liver was completed showing moderate splenomegaly small pleural effusions no evidence of hepatomegaly. Oncology services are following. Patient denies chest pain or shortness breath. Patient denies nausea vomiting or diarrhea. Patient denies any urinary burning or frequency Objective - Vital Signs Vital signs: Vital Signs Temp 97.4 F L 01/05/22 03:46 Pulse 54 L 01/05/22 07:42 Resp 16 01/05/22 07:42 BP 101/34 01/05/22 07:42 Pulse Ox 96 01/05/22 07:42 Intake & Output 01/04/22 01/05/22 01/05/22 18:59 06:59 18:59 Intake Total 310 Output Total 1 Balance 309 Weight 94.5 kg Intake: Blood Product 310 Rc As-1 Unit 310 [id number] Output: Urine 1 Other: Voiding Method Urinal Urinal Diaper Incontinent # Voids 250 - Exam In general patient is alert and oriented x 3 in no distress HEENT head normocephalic and atraumatic Neck is supple no JVD no goiter no lymphadenopathy no carotid bruit Chest examination is clear to auscultation no crackles no wheezing Cardiac exam reveals regular heart sounds S1 and S2 no gallops no murmurs Abdomen is soft nontender no organomegaly with normal bowel sounds Extremity exam reveals no edema no cyanosis or clubbing Neurological examination reveals no gross focal deficits - Labs CBC & Chem 7: 01/05/22 06:00 01/04/22 06:15 Labs: Abnormal Lab Results - Last 24 Hours (Table) 01/03/22 01/03/22 01/04/22 Range/Units 05:37 07:20 20:12 RBC (4.30-5.90) m/uL Hgb (13.0-17.5) gm/dL Hct (39.0-53.0) % MCV (80.0-100.0) fL RDW (11.5-15.5) % Plt Count (150-450) k/uL Macrocytosis POC Glucose (mg/dL) 411 H (75-99) mg/dL Methylmalonic Acid 0.77 H (<0.40) umol/L Crossmatch See Detail 01/05/22 01/05/22 Range/Units 06:00 07:03 RBC 2.05 L (4.30-5.90) m/uL Hgb 6.9 L* (13.0-17.5) gm/dL Hct 22.0 L (39.0-53.0) % MCV 107.3 H D (80.0-100.0) fL RDW 22.2 H (11.5-15.5) % Plt Count 128 L (150-450) k/uL Macrocytosis Marked A POC Glucose (mg/dL) 370 H (75-99) mg/dL Methylmalonic Acid (<0.40) umol/L Crossmatch Assessment and Plan Plan: Anemia with hemoglobin of 6.0 on presentation, patient received 1 unit of red blood cell transfusion in the emergency room. 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 Status post argon plasma coagulation. Colonoscopy was normal. Per GI services okay to resume eliquis and monitor hemoglobin Elevated bilirubin with mild jaundice, with normal AST ALT and alkaline phosphatase, could be related to Gilbert's syndrome, hepatitis B and C profile and liver ultrasound ordered. Per GI services likely Gilbert's syndrome patient to follow-up outpatient Underlying history of hypertension Underlying history of hyperlipidemia Underlying history of atrial fibrillation maintained on adequate Underlying history of gout Underlying history of bgq-swexcyn-hewuhjxsk diabetes mellitus Episode of chest pain after presentation Previous history of TIA Acute on chronic heart failure with reduced EF Worsening cardiomyopathy could be related to anemia bacteremia versus nonischemic. Cardiology services are following. 2-D echo completed showing an EF of 20-25% At this time patient is admitted to medical floor and gastroenterology consultation was requested 1 unit of red blood cell transfusion was given Will monitor hemoglobin closely 12/29/2021 eliquis resumed per GI recommendation 12/31/2021 we'll hold eliquis this time due to ongoing anemia Plans for EGD and colonoscopy completed on 12/27/2021 Oncology services are following repeat Labs ordered
[2022-01-05 11:29] LABS: Glucose,Whole Blood 374 mg/dL (75-99)
[2022-01-05] MEDS ORDERED: INSULIN ASPART (NovoLOG) 100 UNIT/ML VIAL SQ ONE ×2 (12:27→18:23)
[2022-01-05] MEDS: SODIUM CHLORIDE 0.9% 1,000 ML IV SCH (16:27)
[2022-01-05] MEDS: CYANOCOBALAMIN 1,000 MCG/ML 1 ML VIAL IM SCH (17:17)
[2022-01-05 17:27] LABS: Glucose,Whole Blood 351 mg/dL (75-99)
[2022-01-05 20:05] LABS: Glucose,Whole Blood 399 mg/dL (75-99)
[2022-01-05] MEDS: MAGNESIUM OXIDE 400 MG TAB PO SCH (20:31)
[2022-01-05] MEDS: FINASTERIDE 5 MG TAB PO SCH (20:31)
[2022-01-05] MEDS: ATORVASTATIN 40 MG TAB PO SCH (20:31)
[2022-01-05 21:00] LABS: Glucose,Whole Blood 380 mg/dL (75-99)
[2022-01-05] MEDS ORDERED: INSULIN DETEMIR (LEVEMIR) 100 UNIT/ML SYR SQ SCH (21:00)
--- NOTE | 2022-01-05 21:20 | P.PN ---
Subjective Progress Note Date: 01/05/22 Principal diagnosis: Anemia hemoglobin 6.9 - Transfusion ordered B12 low normal, MMA high, Folate Low normal Objective - Vital Signs Vital signs: Vital Signs Temp 97.6 F 01/05/22 14:44 Pulse 62 01/05/22 14:44 Resp 18 01/05/22 14:44 BP 114/65 01/05/22 14:44 Pulse Ox 96 01/05/22 14:44 Intake & Output 01/04/22 01/05/22 01/05/22 18:59 06:59 18:59 Intake Total 310 0 Output Total 1 Balance 309 0 Weight 94.5 kg Intake: Blood Product 310 0 Rc As-1 Unit 310 [id number] Rc As-1 Unit 0 [id number] Output: Urine 1 Other: Voiding Method Urinal Urinal Diaper Incontinent # Voids 250 - Exam - Constitutional General appearance: Present: average body habitus, cooperative, no acute distress - EENT Eyes: Present: EOMI, scleral icterus ENT: Present: hearing grossly normal, normal oropharynx - Respiratory Details: resp even and unlabored - Integumentary Integumentary: Present: jaundiced, pale - Neurologic Neurologic: Present: CNII-XII intact - Musculoskeletal Musculoskeletal: Present: generalized weakness - Psychiatric Psychiatric: Present: A&O x's 3, appropriate affect, intact judgment & insight - Labs - Labs CBC & Chem 7: 01/05/22 06:00 01/04/22 06:15 Labs: Abnormal Lab Results - Last 24 Hours (Table) 01/03/22 01/03/22 01/04/22 Range/Units 05:37 07:20 20:12 RBC (4.30-5.90) m/uL Hgb (13.0-17.5) gm/dL Hct (39.0-53.0) % MCV (80.0-100.0) fL RDW (11.5-15.5) % Plt Count (150-450) k/uL Macrocytosis POC Glucose (mg/dL) 411 H (75-99) mg/dL Methylmalonic Acid 0.77 H (<0.40) umol/L Crossmatch See Detail 01/05/22 01/05/22 01/05/22 Range/Units 06:00 07:03 11:27 RBC 2.05 L (4.30-5.90) m/uL Hgb 6.9 L* (13.0-17.5) gm/dL Hct 22.0 L (39.0-53.0) % MCV 107.3 H D (80.0-100.0) fL RDW 22.2 H (11.5-15.5) % Plt Count 128 L (150-450) k/uL Macrocytosis Marked A POC Glucose (mg/dL) 370 H 374 H (75-99) mg/dL Methylmalonic Acid (<0.40) umol/L Crossmatch Assessment and Plan Plan: - Imaging and Cardiology MRI - abdomen: report reviewed Assessment and Plan (1) Macrocytic anemia Narrative/Plan: On chart review patient has been anemic two other times, last time was when he had the infection in the knee, 08/2021 into October 2020. - -Macrocytosis is new 12/19. - B12 deficiency noted and supp added - No reposnse to Transfusion, Hapto <10, Retic High, Bili mild increase - Steroids and PPI to continue 12/27/21 EGD revealed multiple duodenal and gastric ectasias, these were cauterized. Colonoscopy was negative for malignancy or bleeding. Hemolysis workup ordered-retic high and haptoglobin low but LDH normal, no ab on PRBC screen-less likely to be hemolysis. - Cold agglutinin pending. Steroids continued started on 01.03.22. Ferritin elevated, iron studies normal. No recommendation for Iron replacement US revealing hepatomegaly. MRI reporting no concerning findings in the liver and splenomegaly Cont CBC daily Monoclonal Gammopathy work-up pending Current Visit: Yes Status: Acute Priority: High Code(s): D53.9 - NUTRITIONAL ANEMIA, UNSPECIFIED SNOMED Code(s): 24744663 Plan: Doctor attests: I performed a history and physical examination of this patient, developed impression and plan of care, discussed with dictator. I agree with dictators note, documented as a scribe.
[2022-01-05] MEDS: ALBUTEROL NEBULIZED 2.5 MG/3 ML INHALATION PRN (22:23)
[2022-01-06] MEDS: methylPREDNISolone SOD SUCCI 125 MG/2 ML VIAL IV SCH (05:08)
[2022-01-06] MEDS: LEVOTHYROXINE 125 MCG TAB PO SCH (05:39)
[2022-01-06] MEDS: LEVOTHYROXINE 112 MCG TAB PO SCH (05:39)
[2022-01-06 07:50] LABS: Glucose,Whole Blood 273 mg/dL (75-99)
[2022-01-06] MEDS: SYMBICORT 80-4.5 MCG INHALER INHALATION SCH ×2 (08:18→17:53)
[2022-01-06] MEDS: ALBUTEROL NEBULIZED 2.5 MG/3 ML INHALATION PRN ×2 (08:18→17:52)
[2022-01-06] MEDS ORDERED: INSULIN ASPART (NovoLOG) 100 UNIT/ML VIAL SQ ONE ×3 (08:34→18:00)
[2022-01-06] MEDS: INSULIN ASPART (NovoLOG) 100 UNIT/ML VIAL SQ SCH ×4 (08:35→21:52)
[2022-01-06] MEDS: carvediloL 6.25 MG TAB PO SCH ×2 (08:40→17:46)
[2022-01-06] MEDS: PANTOPRAZOLE 40 MG TABLET PO SCH (08:40)
[2022-01-06] MEDS: allopurinoL 300 MG TAB PO SCH (08:51)
[2022-01-06] MEDS: FUROSEMIDE 40 MG TAB PO SCH ×2 (08:52→15:45)
[2022-01-06] MEDS: GABAPENTIN 400 MG CAP PO SCH ×3 (08:52→20:45)
[2022-01-06] MEDS: CYANOCOBALAMIN 1,000 MCG/ML 1 ML VIAL IM SCH (09:00)
[2022-01-06] MEDS: ISOSORBIDE MONONITRATE ER 15 MG TAB PO SCH (10:40)
[2022-01-06 11:22] LABS: Basophils # (A) 0 X 10*3/uL (0.00-0.10); Basophils % (A) 0 %; Eosinophils # (A) 0 X 10*3/uL (0.04-0.35); Eosinophils % (A) 0 %; HCT 27.4 % (39.6-50.0); HGB 8.2 g/dL (13.0-17.0); Immature Grans, Automated 0.4 %; Lymphocytes # (A) 0.21 X 10*3/uL (0.90-5.00); Lymphocytes % (A) 4.7 %; MCH 31.8 pg (27.0-32.0); MCHC 29.9 g/dL (32.0-37.0); MCV 106.2 fL (80.0-97.0); Mean Platelet Volume 10.2 fL (9.5-12.2); Monocytes # (A) 0.05 X 10*3/uL (0.20-1.00); Monocytes % (A) 1.1 %; NRBC Per 100 WBC 0 /100 WBCS (0.0-0.0); Neutrophils % (A) 93.8 %; Platelet Count 116 X 10*3/uL (140-440); RBC 2.58 X 10*6/uL (4.40-5.60); RDW 24.5 % (11.5-14.5); WBC 4.48 X 10*3/uL (4.50-10.00)
[2022-01-06 11:36] LABS: Rheumatoid Factor, Qnt <10 IU/mL (0-15)
[2022-01-06 11:51] LABS: ALT 5 U/L (10-49); AST 8 U/L (14-35); African American GFR (CKD) 67.2 (60.0-200.0); Albumin 3.5 g/dL (3.8-4.9); Albumin/Globulin Ratio 1.03 (1.60-3.17); Alkaline Phosphatase 62 U/L (41-126); BUN/Creat Ratio 28.58 Ratio (12.00-20.00); Blood Urea Nitrogen 34.3 mg/dL (9.0-27.0); Calcium 8.9 mg/dL (8.7-10.3); Carbon Dioxide 26.1 mmol/L (20.0-27.5); Chloride 99 mmol/L (96-109); Globulin 3.4 g/dL (1.6-3.3); Glucose 298 mg/dL (70-110); Potassium 4.4 mmol/L (3.5-5.5); Sodium 135 mmol/L (135-145); Total Protein 6.9 g/dL (6.2-8.2)
--- NOTE | 2022-01-06 11:53 | P.PN ---
Subjective Progress Note Date: 01/06/22 Patrick Bnauelos, is a 76 year old male who presented to [facility] emergency room with a chief complaint of generalized weakness He was evaluated in the emergency room vital examination on presentation revealed a temperature of 97.7 pulse 65 respiration 18 blood pressure 105/55 pulse ox 95% on room air Laboratory data revealed a white blood count of 6.5 hemoglobin 6.0 platelet count 192 sodium 136 potassium 4.4 chloride 105 CO2 22 BUN 25 creatinine 1.01 glucose 143 Testing in the emergency room revealed EKG done in the emergency room revealed sinus rhythm with right bundle branch block and left anterior fascicular block, chest x-ray done in the emergency room revealed pulmonary congestion and mild heart failure and cardiomegaly. Patient was admitted to medical floor for further evaluation and treatment, gastroenterology consultation was requested 1 unit of red blood cell transfusion was given in the emergency room On 12/26/2020 patient was seen and examined on the medical floor he is alert and oriented 3 in no apparent distress there is no fever or chills no headache or dizziness no chest pain no shortness of breath no cough no nausea or vomiting no abdominal pain no diarrhea and no urinary symptoms he is scheduled tomorrow for EGD and colonoscopy and will receive preparation this afternoon, hemoglobin today is 6.8 will continue to monitor patient's received 1 unit of red blood cell transfusion in the emergency room On 12/27/2021 patient is alert and oriented 3. Plans for colonoscopy and EGD today per GI services labs currently pending cardiology and GI services following. Current vitals temp 97.9, pulse rate 69, respiratory rate 18, blood pressure 119/60. Patient stating 99% on 2 L. Repeat labs ordered for a.m. On 12/28/2021 patient was seen and examined on the medical floor he is alert and oriented 3 in no apparent distress there is no fever or chills no headache or dizziness no chest pain no shortness of breath no cough no nausea or vomiting no abdominal pain no diarrhea and no urinary symptoms. Hemoglobin today is down again to 6.51 unit of red blood cell transfusion was ordered. Yesterday patient underwent EGD and colonoscopy with Dr. 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 At this time will continue supportive care, advised to increase ambulation will consult physical therapy and occupational therapy will recheck labs in a.m. On 12/29/2021 patient is alert and oriented 3. Hemoglobin today 7.1. Did discuss case with GI team. Okay to resume eliquis and monitor hemoglobin. No signs of active bleeding. Patient denies chest pain or shortness of breath. Patient denies nausea vomiting or diarrhea. Patient denies any urinary burning or frequency. Total bilirubin also elevated at 4.5. 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 Repeat labs ordered for a.m. On 12/30/2021 patient was seen and examined on the medical floor he is alert and oriented 3 in no apparent distress there is no fever or chills no headache or dizziness no chest pain no shortness of breath no cough no nausea or vomiting no abdominal pain no diarrhea and no urinary symptoms, he is tolerating diet well, hemoglobin is down to 6.8 today, at this time he does not qualify for red blood cell transfusion, will give IV iron infusion today and recheck labs in a.m. On 12/31/2021 patient is alert and oriented 3. Hemoglobin 6.5. 1 unit PRBCs have been ordered. Per cardiology if anemia worsens okay to continue to hold eliquis on discharge and follow-up in office with cardiology services. Patient denies chest pain or shortness breath. Patient denies nausea vomiting or diarrhea. Patient denies any urinary burning or frequency patient denies any fu rther episodes of bleeding On 01/01/2022 patient is alert and oriented 3. Hemoglobin 6.9. 1 unit PRBCs have been ordered yesterday but not given due to shortage. Per cardiology if anemia worsens okay to continue to hold eliquis on discharge and follow-up in office with cardiology services. Patient denies chest pain or shortness breath. Patient denies nausea vomiting or diarrhea. Patient denies any urinary burning or frequency patient denies any further episodes of bleeding On 01/02/2022 patient is alert and oriented 3. Hemoglobin 6.5. 1 unit PRBCs have been ordered todaybut not given due to shortage. Per cardiology if anemia worsens okay to continue to hold eliquis on discharge and follow-up in office with cardiology services. Patient denies chest pain or shortness breath. Patient denies nausea vomiting or diarrhea. Patient denies any urinary burning or frequency patient denies any further episodes of bleeding. At this time will add hematology consult regarding severe anemia and jaundice. On 01/04/2022 patient is alert and oriented 3. Hemoglobin remains low at 6.0 additional unit of PRBCs has been ordered per oncology services. No further episodes of bleeding. Patient denies chest pain or shortness breath. Patient denies nausea vomiting or diarrhea. Patient denies any urinary burning or frequency On 01/05/2022 patient is alert and oriented 3. Globin slightly improved to 6.9 patient did receive 1 unit PRBCs yesterday. No further signs of bleeding. MRI of the liver was completed showing moderate splenomegaly small pleural effusions no evidence of hepatomegaly. Oncology services are following. Patient denies chest pain or shortness breath. Patient denies nausea vomiting or diarrhea. Patient denies any urinary burning or frequency On 01/06/2022 patient was seen and examined on the medical floor he is alert and oriented 3 in no apparent distress there is no fever or chills no headache or dizziness no chest pain no shortness of breath no cough no nausea or vomiting no abdominal pain no diarrhea and no urinary symptoms, he is tolerating diet well, white blood count 2 days 4.48 hemoglobin 8.2 platelet count 116 , total bilirubin is down to 0.8 , recheck labs in a.m. Objective - Vital Signs Vital signs: Vital Signs Temp 97.9 F 01/06/22 08:33 Pulse 74 01/06/22 08:35 Resp 18 01/06/22 08:33 BP 130/65 01/06/22 08:33 Pulse Ox 99 01/06/22 08:33 Intake & Output 01/05/22 01/06/22 01/06/22 18:59 06:59 18:59 Intake Total 310 360 Output Total 1100 Balance 310 -1100 360 Weight 93.5 kg Intake: Oral 360 Blood Product 310 Rc As-1 Unit 310 [id number] Output: Urine 1100 Other: Voiding Method Urinal Urinal Diaper Diaper Incontinent Incontinent - Exam In general patient is alert and oriented x 3 in no distress HEENT head normocephalic and atraumatic Neck is supple no JVD no goiter no lymphadenopathy no carotid bruit Chest examination is clear to auscultation no crackles no wheezing Cardiac exam reveals regular heart sounds S1 and S2 no gallops no murmurs Abdomen is soft nontender no organomegaly with normal bowel sounds Extremity exam reveals no edema no cyanosis or clubbing Neurological examination reveals no gross focal deficits - Labs CBC & Chem 7: 01/06/22 06:55 01/04/22 06:15 Labs: Abnormal Lab Results - Last 24 Hours (Table) 01/03/22 01/05/22 01/05/22 Range/Units 07:20 11:27 17:25 POC Glucose (mg/dL) 374 H 351 H (75-99) mg/dL Crossmatch See Detail 01/05/22 01/05/22 01/06/22 Range/Units 19:57 20:59 07:37 POC Glucose (mg/dL) 399 H 380 H 273 H (75-99) mg/dL Crossmatch Assessment and Plan Plan: Anemia with hemoglobin of 6.0 on presentation, patient received 1 unit of red blood cell transfusion in the emergency room. 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 Status post argon plasma coagulation. Colonoscopy was normal. Per GI services okay to resume eliquis and monitor hemoglobin Elevated bilirubin with mild jaundice, with normal AST ALT and alkaline phosphatase, could be related to Gilbert's syndrome, hepatitis B and C profile and liver ultrasound ordered. Per GI services likely Gilbert's syndrome patient to follow-up outpatient Underlying history of hypertension Underlying history of hyperlipidemia Underlying history of atrial fibrillation maintained on adequate Underlying history of gout Underlying history of rkl-czgmjtg-otebttfxf diabetes mellitus Episode of chest pain after presentation Previous history of TIA Acute on chronic heart failure with reduced EF Worsening cardiomyopathy could be related to anemia bacteremia versus nonischemic. Cardiology services are following. 2-D echo completed showing an EF of 20-25% At this time patient is admitted to medical floor and gastroenterology consultation was requested 1 unit of red blood cell transfusion was given Will monitor hemoglobin closely 12/29/2021 eliquis resumed per GI recommendation 12/31/2021 we'll hold eliquis this time due to ongoing anemia Plans for EGD and colonoscopy completed on 12/27/2021 Oncology services are following repeat Labs ordered
[2022-01-06 12:13] LABS: Glucose,Whole Blood 351 mg/dL (75-99)
[2022-01-06] MEDS: SODIUM CHLORIDE 0.9% 1,000 ML IV SCH (12:46)
[2022-01-06] MEDS ORDERED: methylPREDNISolone SOD SUCCI 40 MG/ML 1 ML VIAL IV SCH (16:00)
[2022-01-06 17:25] LABS: Glucose,Whole Blood 331 mg/dL (75-99)
--- NOTE | 2022-01-06 20:16 | PN ---
PROGRESS NOTE January 06, 2022. CHIEF COMPLAINT: Tired. Patrick is seen today as a followup. He feels tired, but overall better. He is less short of breath. No nausea or vomiting. There is no reported melena, hematochezia, hematuria or hemoptysis. CURRENT MEDICATION: Reviewed in his electronic medical record. PHYSICAL EXAMINATION: He alert, oriented x3. He does not appear to be in acute distress. Well developed, well nourished. His vital signs are: Temperature 97.4 afebrile, pulse 78, blood pressure 113/61, respiration is 18. HEENT: Normocephalic, atraumatic. He has scleral icterus. Neck: Supple. Lungs are clear to auscultation heart is regular rhythm. Abdomen: Soft. No tenderness or organomegaly. Extremities reveal no edema. LABORATORY DATA: From today is WBC are 4.8, hemoglobin 8.2, MCV is 106.2, platelets are 116. Sodium 135, potassium 4.4, chloride 99, CO2 is 26.1, BUN 34.3, creatinine 1.2. AST is 8, ALT is 5. Last bilirubin was 1.3. IMPRESSION: Microcytic anemia. This has improved after blood transfusion. 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 This anemia started right after he had knee surgery and prior to knee surgery, he received 3 months of antibiotics. The possibility is non autoimmune hemolytic anemia related to that should be highly considered. Recent GI workup did not reveal any active GI blood loss anemia and his iron studies are not suggestive of iron deficiency anemia. His recent EGD revealed small angiectasia non bleeding which were cauterized. RECOMMENDATION: 1. I would recommend to discontinue steroid at this point in time. 2. He may resume Eliquis if felt this necessary for his atrial fibrillation by Cardiology. 3. Continue to monitor his hemoglobin to make sure it continues to improve and no further hemolysis going on. If his hemoglobin does not normalize in the next week or so in the outpatient setting, then further evaluation should be considered and this may include a bone marrow evaluation. 4. In regard to his thrombocytopenia, it is mild and it occurred during this hospital stay. It is likely dilutional. The above was discussed in detail with the patient. I have answered all his questions. MMODL / IJN: [id number] /
[2022-01-06] MEDS: ATORVASTATIN 40 MG TAB PO SCH (20:45)
[2022-01-06] MEDS: MAGNESIUM OXIDE 400 MG TAB PO SCH (20:45)
[2022-01-06] MEDS: INSULIN DETEMIR (LEVEMIR) 100 UNIT/ML SYR SQ SCH (20:45)
[2022-01-06] MEDS: FINASTERIDE 5 MG TAB PO SCH (20:46)
[2022-01-06 21:41] LABS: Glucose,Whole Blood 346 mg/dL (75-99)
[2022-01-07] MEDS: SYMBICORT 80-4.5 MCG INHALER INHALATION SCH ×2 (07:44→20:28)
[2022-01-07] MEDS: ALBUTEROL NEBULIZED 2.5 MG/3 ML INHALATION PRN (07:44)
[2022-01-07] MEDS: carvediloL 6.25 MG TAB PO SCH (08:00)
[2022-01-07] MEDS: ISOSORBIDE MONONITRATE ER 15 MG TAB PO SCH (08:02)
[2022-01-07 08:14] LABS: Glucose,Whole Blood 214 mg/dL (75-99)
[2022-01-07] MEDS: INSULIN ASPART (NovoLOG) 100 UNIT/ML VIAL SQ SCH ×4 (08:39→22:32)
[2022-01-07] MEDS: allopurinoL 300 MG TAB PO SCH (08:39)
[2022-01-07] MEDS: GABAPENTIN 400 MG CAP PO SCH ×3 (08:39→22:32)
[2022-01-07] MEDS: FUROSEMIDE 40 MG TAB PO SCH (08:39)
[2022-01-07] MEDS: LEVOTHYROXINE 125 MCG TAB PO SCH (08:39)
[2022-01-07] MEDS: PANTOPRAZOLE 40 MG TABLET PO SCH (08:39)
[2022-01-07] MEDS: CYANOCOBALAMIN 1,000 MCG/ML 1 ML VIAL IM SCH (08:40)
[2022-01-07] MEDS: LEVOTHYROXINE 112 MCG TAB PO SCH (08:40)
--- NOTE | 2022-01-07 11:06 | P.PN ---
Subjective Progress Note Date: 01/07/22 Patrick Banuelos, is a 76 year old male who presented to [facility] emergency room with a chief complaint of generalized weakness He was evaluated in the emergency room vital examination on presentation revealed a temperature of 97.7 pulse 65 respiration 18 blood pressure 105/55 pulse ox 95% on room air Laboratory data revealed a white blood count of 6.5 hemoglobin 6.0 platelet count 192 sodium 136 potassium 4.4 chloride 105 CO2 22 BUN 25 creatinine 1.01 glucose 143 Testing in the emergency room revealed EKG done in the emergency room revealed sinus rhythm with right bundle branch block and left anterior fascicular block, chest x-ray done in the emergency room revealed pulmonary congestion and mild heart failure and cardiomegaly. Patient was admitted to medical floor for further evaluation and treatment, gastroenterology consultation was requested 1 unit of red blood cell transfusion was given in the emergency room On 12/26/2020 patient was seen and examined on the medical floor he is alert and oriented 3 in no apparent distress there is no fever or chills no headache or dizziness no chest pain no shortness of breath no cough no nausea or vomiting no abdominal pain no diarrhea and no urinary symptoms he is scheduled tomorrow for EGD and colonoscopy and will receive preparation this afternoon, hemoglobin today is 6.8 will continue to monitor patient's received 1 unit of red blood cell transfusion in the emergency room On 12/27/2021 patient is alert and oriented 3. Plans for colonoscopy and EGD today per GI services labs currently pending cardiology and GI services following. Current vitals temp 97.9, pulse rate 69, respiratory rate 18, blood pressure 119/60. Patient stating 99% on 2 L. Repeat labs ordered for a.m. On 12/28/2021 patient was seen and examined on the medical floor he is alert and oriented 3 in no apparent distress there is no fever or chills no headache or dizziness no chest pain no shortness of breath no cough no nausea or vomiting no abdominal pain no diarrhea and no urinary symptoms. Hemoglobin today is down again to 6.51 unit of red blood cell transfusion was ordered. Yesterday patient underwent EGD and colonoscopy with Dr. 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 At this time will continue supportive care, advised to increase ambulation will consult physical therapy and occupational therapy will recheck labs in a.m. On 12/29/2021 patient is alert and oriented 3. Hemoglobin today 7.1. Did discuss case with GI team. Okay to resume eliquis and monitor hemoglobin. No signs of active bleeding. Patient denies chest pain or shortness of breath. Patient denies nausea vomiting or diarrhea. Patient denies any urinary burning or frequency. Total bilirubin also elevated at 4.5. 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 Repeat labs ordered for a.m. On 12/30/2021 patient was seen and examined on the medical floor he is alert and oriented 3 in no apparent distress there is no fever or chills no headache or dizziness no chest pain no shortness of breath no cough no nausea or vomiting no abdominal pain no diarrhea and no urinary symptoms, he is tolerating diet well, hemoglobin is down to 6.8 today, at this time he does not qualify for red blood cell transfusion, will give IV iron infusion today and recheck labs in a.m. On 12/31/2021 patient is alert and oriented 3. Hemoglobin 6.5. 1 unit PRBCs have been ordered. Per cardiology if anemia worsens okay to continue to hold eliquis on discharge and follow-up in office with cardiology services. Patient denies chest pain or shortness breath. Patient denies nausea vomiting or diarrhea. Patient denies any urinary burning or frequency patient denies any fu rther episodes of bleeding On 01/01/2022 patient is alert and oriented 3. Hemoglobin 6.9. 1 unit PRBCs have been ordered yesterday but not given due to shortage. Per cardiology if anemia worsens okay to continue to hold eliquis on discharge and follow-up in office with cardiology services. Patient denies chest pain or shortness breath. Patient denies nausea vomiting or diarrhea. Patient denies any urinary burning or frequency patient denies any further episodes of bleeding On 01/02/2022 patient is alert and oriented 3. Hemoglobin 6.5. 1 unit PRBCs have been ordered todaybut not given due to shortage. Per cardiology if anemia worsens okay to continue to hold eliquis on discharge and follow-up in office with cardiology services. Patient denies chest pain or shortness breath. Patient denies nausea vomiting or diarrhea. Patient denies any urinary burning or frequency patient denies any further episodes of bleeding. At this time will add hematology consult regarding severe anemia and jaundice. On 01/04/2022 patient is alert and oriented 3. Hemoglobin remains low at 6.0 additional unit of PRBCs has been ordered per oncology services. No further episodes of bleeding. Patient denies chest pain or shortness breath. Patient denies nausea vomiting or diarrhea. Patient denies any urinary burning or frequency On 01/05/2022 patient is alert and oriented 3. Globin slightly improved to 6.9 patient did receive 1 unit PRBCs yesterday. No further signs of bleeding. MRI of the liver was completed showing moderate splenomegaly small pleural effusions no evidence of hepatomegaly. Oncology services are following. Patient denies chest pain or shortness breath. Patient denies nausea vomiting or diarrhea. Patient denies any urinary burning or frequency On 01/06/2022 patient was seen and examined on the medical floor he is alert and oriented 3 in no apparent distress there is no fever or chills no headache or dizziness no chest pain no shortness of breath no cough no nausea or vomiting no abdominal pain no diarrhea and no urinary symptoms, he is tolerating diet well, white blood count 2 days 4.48 hemoglobin 8.2 platelet count 116 , total bilirubin is down to 0.8 , recheck labs in a.m. On 01/07/2022 patient is alert and oriented 3. Awaiting repeat hemoglobin results. Blood pressure also remains marginal with blood pressure of 80/47 this a.m. repeat blood pressure 104/64. At this time patient denies chest pain or shortness breath. Patient denies nausea vomiting or diarrhea. Patient denies any urinary burning or frequency Objective - Vital Signs Vital signs: Vital Signs Temp 97.6 F 01/07/22 07:57 Pulse 58 L 01/07/22 10:43 Resp 16 01/07/22 07:57 BP 104/64 01/07/22 10:43 Pulse Ox 91 L 01/07/22 07:57 Intake & Output 01/06/22 01/07/22 01/07/22 17:59 06:59 18:59 Intake Total Output Total Balance Weight Intake: Oral Output: Urine Other: Voiding Method # Bowel Movements - Exam In general patient is alert and oriented x 3 in no distress HEENT head normocephalic and atraumatic Neck is supple no JVD no goiter no lymphadenopathy no carotid bruit Chest examination is clear to auscultation no crackles no wheezing Cardiac exam reveals regular heart sounds S1 and S2 no gallops no murmurs Abdomen is soft nontender no organomegaly with normal bowel sounds Extremity exam reveals no edema no cyanosis or clubbing Neurological examination reveals no gross focal deficits - Labs CBC & Chem 7: 01/06/22 06:55 01/06/22 06:55 Labs: Abnormal Lab Results - Last 24 Hours (Table) 01/06/22 01/06/22 01/06/22 Range/Units 06:55 06:55 11:54 WBC 4.48 L (4.50-10.00) X 10*3/uL RBC 2.58 L (4.40-5.60) X 10*6/uL Hgb 8.2 L (13.0-17.0) g/dL Hct 27.4 L (39.6-50.0) % MCV 106.2 H (80.0-97.0) fL MCHC 29.9 L (32.0-37.0) g/dL RDW 24.5 H (11.5-14.5) % Plt Count 116 L (140-440) X 10*3/uL Lymphocytes # 0.21 L (0.90-5.00) X 10*3/uL Monocytes # 0.05 L (0.20-1.00) X 10*3/uL Eosinophils # 0 L (0.04-0.35) X 10*3/uL Anion Gap 9.90 L (10.00-18.00) mmol/L BUN 34.3 H (9.0-27.0) mg/dL Est GFR (CKD-EPI)NonAf 58.0 L (60.0-200.0) BUN/Creatinine Ratio 28.58 H (12.00-20.00) Ratio Glucose 298 H (70-110) mg/dL POC Glucose (mg/dL) 351 H (75-99) mg/dL AST 8 L (14-35) U/L ALT 5 L (10-49) U/L Albumin 3.5 L (3.8-4.9) g/dL Globulin 3.4 H (1.6-3.3) g/dL Albumin/Globulin Ratio 1.03 L (1.60-3.17) g/dL 01/06/22 01/06/22 01/07/22 Range/Units 17:16 21:25 07:49 WBC (4.50-10.00) X 10*3/uL RBC (4.40-5.60) X 10*6/uL Hgb (13.0-17.0) g/dL Hct (39.6-50.0) % MCV (80.0-97.0) fL MCHC (32.0-37.0) g/dL RDW (11.5-14.5) % Plt Count (140-440) X 10*3/uL Lymphocytes # (0.90-5.00) X 10*3/uL Monocytes # (0.20-1.00) X 10*3/uL Eosinophils # (0.04-0.35) X 10*3/uL Anion Gap (10.00-18.00) mmol/L BUN (9.0-27.0) mg/dL Est GFR (CKD-EPI)NonAf (60.0-200.0) BUN/Creatinine Ratio (12.00-20.00) Ratio Glucose (70-110) mg/dL POC Glucose (mg/dL) 331 H 346 H 214 H (75-99) mg/dL AST (14-35) U/L ALT (10-49) U/L Albumin (3.8-4.9) g/dL Globulin (1.6-3.3) g/dL Albumin/Globulin Ratio (1.60-3.17) g/dL Assessment and Plan Plan: Anemia with hemoglobin of 6.0 on presentation, patient received 1 unit of red blood cell transfusion in the emergency room. 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 Status post argon plasma coagulation. Colonoscopy was normal. Per GI services okay to resume eliquis and monitor hemoglobin Elevated bilirubin with mild jaundice, with normal AST ALT and alkaline phos phatase, could be related to Gilbert's syndrome, hepatitis B and C profile and liver ultrasound ordered. 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 Cardiology services are following. 2-D echo completed showing an EF of 20-25% At this time patient is admitted to medical floor and gastroenterology consultation was requested 1 unit of red blood cell transfusion was given Will monitor hemoglobin closely 12/29/2021 eliquis resumed per GI recommendation 12/31/2021 we'll hold eliquis this time due to ongoing anemia EGD and colonoscopy completed on 12/27/2021 Oncology services are following repeat Labs ordered
[2022-01-07 12:40] LABS: Glucose,Whole Blood 140 mg/dL (75-99)
[2022-01-07] MEDS: SODIUM CHLORIDE 0.9% 1,000 ML IV SCH (13:07)
[2022-01-07 16:35] LABS: Basophils # (A) 0 X 10*3/uL (0.00-0.10); Basophils % (A) 0 %; Eosinophils # (A) 0 X 10*3/uL (0.04-0.35); Eosinophils % (A) 0 %; HCT 29.1 % (39.6-50.0); HGB 8.8 g/dL (13.0-17.0); Immature Grans, Automated 0.2 %; Lymphocytes # (A) 0.86 X 10*3/uL (0.90-5.00); Lymphocytes % (A) 14.1 %; MCH 32.4 pg (27.0-32.0); MCHC 30.2 g/dL (32.0-37.0); Mean Platelet Volume 9.9 fL (9.5-12.2); Monocytes # (A) 0.59 X 10*3/uL (0.20-1.00); Monocytes % (A) 9.7 %; NRBC Per 100 WBC 0 /100 WBCS (0.0-0.0); Neutrophils # (A) 4.63 X 10*3/uL (1.80-7.70); Platelet Count 133 X 10*3/uL (140-440); RBC 2.72 X 10*6/uL (4.40-5.60); RDW 23.6 % (11.5-14.5); WBC 6.09 X 10*3/uL (4.50-10.00)
[2022-01-07 17:03] LABS: African American GFR (CKD) 70.7 (60.0-200.0); Albumin 3.3 g/dL (3.8-4.9); Albumin/Globulin Ratio 1.03 (1.60-3.17); Anion Gap 9.5 mmol/L (10.00-18.00); Blood Urea Nitrogen 36.8 mg/dL (9.0-27.0); Calcium 9.1 mg/dL (8.7-10.3); Carbon Dioxide 27.9 mmol/L (20.0-27.5); Globulin 3.2 g/dL (1.6-3.3); Potassium 3.8 mmol/L (3.5-5.5); Total Bilirubin 1.1 mg/dL (0.30-1.20); Total Protein 6.6 g/dL (6.2-8.2)
[2022-01-07 17:30] LABS: Glucose,Whole Blood 186 mg/dL (75-99)
[2022-01-07] MEDS: carvediloL 3.125 MG TAB PO SCH (17:43)
[2022-01-07] MEDS ORDERED: ALBUTEROL 90 MCG INHALER INHALATION PRN (17:45)
[2022-01-07 20:50] LABS: Glucose,Whole Blood 314 mg/dL (75-99)
[2022-01-07 22:07] LABS: Glucose,Whole Blood 252 mg/dL (75-99)
[2022-01-07] MEDS: INSULIN DETEMIR (LEVEMIR) 100 UNIT/ML SYR SQ SCH (22:33)
[2022-01-07] MEDS: ATORVASTATIN 40 MG TAB PO SCH (22:33)
[2022-01-07] MEDS: MAGNESIUM OXIDE 400 MG TAB PO SCH (22:33)
[2022-01-07] MEDS: FINASTERIDE 5 MG TAB PO SCH (22:33)
[2022-01-08] MEDS: SYMBICORT 80-4.5 MCG INHALER INHALATION SCH ×2 (05:41→20:32)
[2022-01-08] MEDS: LEVOTHYROXINE 125 MCG TAB PO SCH (05:52)
[2022-01-08] MEDS: LEVOTHYROXINE 112 MCG TAB PO SCH (05:52)
[2022-01-08 07:39] LABS: Glucose,Whole Blood 183 mg/dL (75-99)
[2022-01-08] MEDS: INSULIN ASPART (NovoLOG) 100 UNIT/ML VIAL SQ SCH ×4 (08:50→22:16)
[2022-01-08] MEDS: carvediloL 3.125 MG TAB PO SCH ×2 (08:50→17:38)
[2022-01-08] MEDS: allopurinoL 300 MG TAB PO SCH (08:51)
[2022-01-08] MEDS: GABAPENTIN 400 MG CAP PO SCH ×3 (08:51→22:16)
[2022-01-08] MEDS: PANTOPRAZOLE 40 MG TABLET PO SCH (08:51)
[2022-01-08] MEDS: ISOSORBIDE MONONITRATE ER 15 MG TAB PO SCH (08:51)
[2022-01-08] MEDS: FUROSEMIDE 40 MG TAB PO SCH (08:51)
[2022-01-08] MEDS: CYANOCOBALAMIN 1,000 MCG/ML 1 ML VIAL IM SCH (08:51)
--- NOTE | 2022-01-08 10:55 | P.PN ---
Subjective Progress Note Date: 01/08/22 Principal diagnosis: Anemia 76-year-old male seen as a follow-up today with complaints of low hemoglobin and weakness. His been here for 2 weeks duration. Had initially seen him when he first came in for anemia. Patient has been anemic for the last 1 month's duration and has undergone blood transfusion 3 times. The patient had been on Eliquis for atrial fibrillation. On 12/27/2021 he underwent an EGD and colonoscopy. 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 Colonoscopy was within normal limits with no evidence of colorectal neoplasia. Apparently the patient had another drop in his hemoglobin last week. He did receive a total of 2 units of PRBC transfusion. Hematology has been following in place patient has a hemolytic anemia no evidence of iron deficiency anemia. They are following closely. Patient denies any blood in his stool or black stool. Denies abdominal pain, nausea or vomiting. Objective - Vital Signs Vital signs: Vital Signs Temp 97.8 F 01/08/22 05:07 Pulse 62 01/08/22 05:07 Resp 18 01/08/22 05:07 BP 104/55 01/08/22 05:07 Pulse Ox 92 L 01/08/22 05:07 Intake & Output 01/07/22 01/08/22 01/08/22 18:59 06:59 18:59 Intake Total 580 Output Total 1380 Balance -800 Weight 93.6 kg Intake: Oral 580 Output: Urine 1380 - Exam General appearance: The patient is alert, oriented, appears in no acute distress. HET: Head is normocephalic and atraumatic. Conjunctiva pink. Sclera anicteric. Neck: Supple without lymphadenopathy. Abdomen: Soft, nontender, nondistended with bowel sounds. No guarding or rigidity. Extremities: Normal skin color and turgor. No pedal edema Skin: No rashes, no jaundice Neurological: No focal deficits. Alert and oriented x 3. - Labs CBC & Chem 7: 01/07/22 12:17 01/07/22 12:17 Labs: Abnormal Lab Results - Last 24 Hours (Table) 01/07/22 01/07/22 01/07/22 Range/Units 12:17 12:17 12:27 RBC 2.72 L (4.40-5.60) X 10*6/uL Hgb 8.8 L (13.0-17.0) g/dL Hct 29.1 L (39.6-50.0) % MCV 107.0 H (80.0-97.0) fL MCH 32.4 H (27.0-32.0) pg MCHC 30.2 L (32.0-37.0) g/dL RDW 23.6 H (11.5-14.5) % Plt Count 133 L (140-440) X 10*3/uL Lymphocytes # 0.86 L (0.90-5.00) X 10*3/uL Eosinophils # 0 L (0.04-0.35) X 10*3/uL Carbon Dioxide 27.9 H (20.0-27.5) mmol/L Anion Gap 9.50 L (10.00-18.00) mmol/L BUN 36.8 H (9.0-27.0) mg/dL BUN/Creatinine Ratio 32.00 H (12.00-20.00) Ratio Glucose 148 H (70-110) mg/dL POC Glucose (mg/dL) 140 H (75-99) mg/dL AST 12 L (14-35) U/L ALT 7 L (10-49) U/L Albumin 3.3 L (3.8-4.9) g/dL Albumin/Globulin Ratio 1.03 L (1.60-3.17) g/dL 01/07/22 01/07/22 01/07/22 Range/Units 17:09 20:49 22:06 RBC (4.40-5.60) X 10*6/uL Hgb (13.0-17.0) g/dL Hct (39.6-50.0) % MCV (80.0-97.0) fL MCH (27.0-32.0) pg MCHC (32.0-37.0) g/dL RDW (11.5-14.5) % Plt Count (140-440) X 10*3/uL Lymphocytes # (0.90-5.00) X 10*3/uL Eosinophils # (0.04-0.35) X 10*3/uL Carbon Dioxide (20.0-27.5) mmol/L Anion Gap (10.00-18.00) mmol/L BUN (9.0-27.0) mg/dL BUN/Creatinine Ratio (12.00-20.00) Ratio Glucose (70-110) mg/dL POC Glucose (mg/dL) 186 H 314 H 252 H (75-99) mg/dL AST (14-35) U/L ALT (10-49) U/L Albumin (3.8-4.9) g/dL Albumin/Globulin Ratio (1.60-3.17) g/dL 01/08/22 Range/Units 07:38 RBC (4.40-5.60) X 10*6/uL Hgb (13.0-17.0) g/dL Hct (39.6-50.0) % MCV (80.0-97.0) fL MCH (27.0-32.0) pg MCHC (32.0-37.0) g/dL RDW (11.5-14.5) % Plt Count (140-440) X 10*3/uL Lymphocytes # (0.90-5.00) X 10*3/uL Eosinophils # (0.04-0.35) X 10*3/uL Carbon Dioxide (20.0-27.5) mmol/L Anion Gap (10.00-18.00) mmol/L BUN (9.0-27.0) mg/dL BUN/Creatinine Ratio (12.00-20.00) Ratio Glucose (70-110) mg/dL POC Glucose (mg/dL) 183 H (75-99) mg/dL AST (14-35) U/L ALT (10-49) U/L Albumin (3.8-4.9) g/dL Albumin/Globulin Ratio (1.60-3.17) g/dL Assessment and Plan (1) Anemia Narrative/Plan: 76-year-old female who has had low blood counts for the last 3 weeks duration came to the emergency department with complaints of weakness and fatigue. He was noted to have a low hemoglobin on admission of 6.0 and is status post 1 unit of PRBC transfusion. Patient has a history of atrial fibrillation on Eliquis last dose taken this morning. He denies any previous history of GI bleed. He's had no previous history of peptic ulcer disease, no GERD, denies any NSAID use and no previous EGD. He states he had a colonoscopy approximately 8 years ago done in [place] for which he states was normal. At this time unknown etiology possibly may be due to AVM, esophagitis, gastritis, peptic ulcer disease, or other possible etiology. Will proceed with EGD and colonoscopy on Saturday. Hold Eliquis. Iron studies obtained. This patient is status post EGD and colonoscopy. 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 He is status post argon plasma coagulation. Colonoscopy was normal. Hematology is following closely for hemolytic anemia patient is to follow up outpatient for continued surveillance. Current Visit: Yes Status: Acute Code(s): D64.9 - ANEMIA, UNSPECIFIED SNOMED Code(s): 811167727 (2) Hyperbilirubinemia Narrative/Plan: We'll obtain ultrasound of the liver, and Fractionated bilirubin. Bilirubin is unconjugated, possibility of Gilbert syndrome needs to be considered. Patient can follow-up with gastroenterology as needed Current Visit: Yes Status: Acute Code(s): E80.6 - OTHER DISORDERS OF BILIRUBIN METABOLISM SNOMED Code(s): 98336417 (3) Atrial fibrillation Current Visit: No Status: Chronic Code(s): I48.91 - UNSPECIFIED ATRIAL FIBRILLATION SNOMED Code(s): 67950715 Plan: 1. Continue symptomatic and supportive care 2. Protonix 40 mg twice a day 3. Diet as tolerated 4. Patient is status post EGD and colonoscopy 5. May resume Eliquis from a gastroenterology standpoint Patient is cleared for discharge from gastroenterology was otherwise medically stable. Dr. Sera Marie I agree with the dictator's note, documented as a scribe by Sepideh Murphy.
[2022-01-08 11:12] LABS: African American GFR (CKD) 74.7 (60.0-200.0); Albumin 3.2 g/dL (3.8-4.9); Albumin/Globulin Ratio 1.07 (1.60-3.17); Anion Gap 10.4 mmol/L (10.00-18.00); BUN/Creat Ratio 31.73 Ratio (12.00-20.00); Blood Urea Nitrogen 34.9 mg/dL (9.0-27.0); Calcium 8.4 mg/dL (8.7-10.3); Carbon Dioxide 27.6 mmol/L (20.0-27.5); Non-African American GFR(CKD) 64.4 (60.0-200.0); Total Bilirubin 1.5 mg/dL (0.30-1.20); Total Protein 6.2 g/dL (6.2-8.2)
[2022-01-08 12:39] LABS: Basophils # (A) 0 X 10*3/uL (0.00-0.10); Basophils % (A) 0 %; Eosinophils # (A) 0.02 X 10*3/uL (0.04-0.35); Eosinophils % (A) 0.3 %; HCT 31.1 % (39.6-50.0); HGB 9.3 g/dL (13.0-17.0); Immature Grans, Automated 0.5 %; Lymphocytes # (A) 0.99 X 10*3/uL (0.90-5.00); Lymphocytes % (A) 16.8 %; MCH 32.2 pg (27.0-32.0); MCHC 29.9 g/dL (32.0-37.0); MCV 107.6 fL (80.0-97.0); Mean Platelet Volume 10.4 fL (9.5-12.2); Monocytes # (A) 0.66 X 10*3/uL (0.20-1.00); Monocytes % (A) 11.2 %; NRBC Per 100 WBC 0 /100 WBCS (0.0-0.0); Neutrophils # (A) 4.18 X 10*3/uL (1.80-7.70); Neutrophils % (A) 71.2 %; Platelet Count 128 X 10*3/uL (140-440); RBC 2.89 X 10*6/uL (4.40-5.60); RDW 22.5 % (11.5-14.5); WBC 5.88 X 10*3/uL (4.50-10.00)
[2022-01-08 12:48] LABS: Glucose,Whole Blood 193 mg/dL (75-99)
[2022-01-08 16:09] LABS: Anisocytosis Moderate; Hypochromasia Moderate; MCH 33.3 pg (25.0-35.0); MCHC 31.1 g/dL (31.0-37.0); MCV 107.3 fL (80.0-100.0); Macrocytosis Marked; Mean Platelet Volume 7.8; Platelet Count 154 k/uL (150-450); RBC 3.26 m/uL (4.30-5.90); RDW 20.2 % (11.5-15.5); WBC 7.8 k/uL (3.8-10.6)
[2022-01-08 16:15] LABS: HGB 10.9 gm/dL (13.0-17.5)
--- NOTE | 2022-01-08 16:22 | P.PN ---
Subjective Progress Note Date: 01/08/22 Principal diagnosis: anemia, not responding to transfusion In f/u pt continues to be pleasant, tolerating oral intake, has symptoms of anemia with activity-SOB on exertion, weakness, easily tired. No bleeding, bruising or pain reported. Objective - Vital Signs Vital signs: Vital Signs Temp 97.5 F L 01/08/22 13:15 Pulse 68 01/08/22 13:15 Resp 18 01/08/22 13:15 BP 106/52 01/08/22 13:15 Pulse Ox 92 L 01/08/22 13:15 Intake & Output 01/07/22 01/08/22 01/08/22 18:59 06:59 18:59 Intake Total 580 Output Total 1380 Balance -800 Weight 93.6 kg Intake: Oral 580 Output: Urine 1380 - Labs CBC & Chem 7: 01/08/22 07:16 01/08/22 07:16 Labs: Abnormal Lab Results - Last 24 Hours (Table) 01/07/22 01/07/22 01/07/22 Range/Units 12:17 12:17 17:09 RBC 2.72 L (4.40-5.60) X 10*6/uL Hgb 8.8 L (13.0-17.0) g/dL Hct 29.1 L (39.6-50.0) % MCV 107.0 H (80.0-97.0) fL MCH 32.4 H (27.0-32.0) pg MCHC 30.2 L (32.0-37.0) g/dL RDW 23.6 H (11.5-14.5) % Plt Count 133 L (140-440) X 10*3/uL Lymphocytes # 0.86 L (0.90-5.00) X 10*3/uL Eosinophils # 0 L (0.04-0.35) X 10*3/uL Carbon Dioxide 27.9 H (20.0-27.5) mmol/L Anion Gap 9.50 L (10.00-18.00) mmol/L BUN 36.8 H (9.0-27.0) mg/dL BUN/Creatinine Ratio 32.00 H (12.00-20.00) Ratio Glucose 148 H (70-110) mg/dL POC Glucose (mg/dL) 186 H (75-99) mg/dL Calcium (8.7-10.3) mg/dL Total Bilirubin (0.30-1.20) mg/dL AST 12 L (14-35) U/L ALT 7 L (10-49) U/L Albumin 3.3 L (3.8-4.9) g/dL Albumin/Globulin Ratio 1.03 L (1.60-3.17) g/dL 01/07/22 01/07/22 01/08/22 Range/Units 20:49 22:06 07:16 RBC 2.89 L (4.40-5.60) X 10*6/uL Hgb 9.3 L (13.0-17.0) g/dL Hct 31.1 L (39.6-50.0) % MCV 107.6 H (80.0-97.0) fL MCH 32.2 H (27.0-32.0) pg MCHC 29.9 L (32.0-37.0) g/dL RDW 22.5 H (11.5-14.5) % Plt Count 128 L (140-440) X 10*3/uL Lymphocytes # (0.90-5.00) X 10*3/uL Eosinophils # 0.02 L (0.04-0.35) X 10*3/uL Carbon Dioxide (20.0-27.5) mmol/L Anion Gap (10.00-18.00) mmol/L BUN (9.0-27.0) mg/dL BUN/Creatinine Ratio (12.00-20.00) Ratio Glucose (70-110) mg/dL POC Glucose (mg/dL) 314 H 252 H (75-99) mg/dL Calcium (8.7-10.3) mg/dL Total Bilirubin (0.30-1.20) mg/dL AST (14-35) U/L ALT (10-49) U/L Albumin (3.8-4.9) g/dL Albumin/Globulin Ratio (1.60-3.17) g/dL 01/08/22 01/08/22 01/08/22 Range/Units 07:16 07:38 12:45 RBC (4.40-5.60) X 10*6/uL Hgb (13.0-17.0) g/dL Hct (39.6-50.0) % MCV (80.0-97.0) fL MCH (27.0-32.0) pg MCHC (32.0-37.0) g/dL RDW (11.5-14.5) % Plt Count (140-440) X 10*3/uL Lymphocytes # (0.90-5.00) X 10*3/uL Eosinophils # (0.04-0.35) X 10*3/uL Carbon Dioxide 27.6 H (20.0-27.5) mmol/L Anion Gap (10.00-18.00) mmol/L BUN 34.9 H (9.0-27.0) mg/dL BUN/Creatinine Ratio 31.73 H (12.00-20.00) Ratio Glucose 173 H (70-110) mg/dL POC Glucose (mg/dL) 183 H 193 H (75-99) mg/dL Calcium 8.4 L (8.7-10.3) mg/dL Total Bilirubin 1.50 H (0.30-1.20) mg/dL AST (14-35) U/L ALT (10-49) U/L Albumin 3.2 L (3.8-4.9) g/dL Albumin/Globulin Ratio 1.07 L (1.60-3.17) g/dL Assessment and Plan (1) Macrocytic anemia Narrative/Plan: Hgb is stable adn improved today! Hgb 9.3, bilirubin is almost normal, pt no longer looks jaundiced. Iron studies normal B12 low normal, MMA elevated. Start B12 supplement Cont to monitor CBC for return to normal levels Exact cause unknwn, suspect a degree of hemolysis but, this was never absolutely confirmed on lab work up. Steroids were started with improvement/stable Hgb, now stable after stopping steroids. Current Visit: Yes Status: Acute Priority: High Code(s): D53.9 - NUTRITIONAL ANEMIA, UNSPECIFIED SNOMED Code(s): 44458723
[2022-01-08] MEDS ORDERED: CYANOCOBALAMIN 1,000 MCG/ML 1 ML VIAL IM SCH (17:00)
[2022-01-08 17:24] LABS: Glucose,Whole Blood 174 mg/dL (75-99)
--- NOTE | 2022-01-08 18:28 | P.PN ---
Subjective Progress Note Date: 01/08/22 Patrick Banuelos, is a 76 year old male who presented to [facility] emergency room with a chief complaint of generalized weakness He was evaluated in the emergency room vital examination on presentation revealed a temperature of 97.7 pulse 65 respiration 18 blood pressure 105/55 pulse ox 95% on room air Laboratory data revealed a white blood count of 6.5 hemoglobin 6.0 platelet count 192 sodium 136 potassium 4.4 chloride 105 CO2 22 BUN 25 creatinine 1.01 glucose 143 Testing in the emergency room revealed EKG done in the emergency room revealed sinus rhythm with right bundle branch block and left anterior fascicular block, chest x-ray done in the emergency room revealed pulmonary congestion and mild heart failure and cardiomegaly. Patient was admitted to medical floor for further evaluation and treatment, gastroenterology consultation was requested 1 unit of red blood cell transfusion was given in the emergency room On 12/26/2020 patient was seen and examined on the medical floor he is alert and oriented 3 in no apparent distress there is no fever or chills no headache or dizziness no chest pain no shortness of breath no cough no nausea or vomiting no abdominal pain no diarrhea and no urinary symptoms he is scheduled tomorrow for EGD and colonoscopy and will receive preparation this afternoon, hemoglobin today is 6.8 will continue to monitor patient's received 1 unit of red blood cell transfusion in the emergency room On 12/27/2021 patient is alert and oriented 3. Plans for colonoscopy and EGD today per GI services labs currently pending cardiology and GI services following. Current vitals temp 97.9, pulse rate 69, respiratory rate 18, blood pressure 119/60. Patient stating 99% on 2 L. Repeat labs ordered for a.m. On 12/28/2021 patient was seen and examined on the medical floor he is alert and oriented 3 in no apparent distress there is no fever or chills no headache or dizziness no chest pain no shortness of breath no cough no nausea or vomiting no abdominal pain no diarrhea and no urinary symptoms. Hemoglobin today is down again to 6.51 unit of red blood cell transfusion was ordered. Yesterday patient underwent EGD and colonoscopy with Dr. 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 At this time will continue supportive care, advised to increase ambulation will consult physical therapy and occupational therapy will recheck labs in a.m. On 12/29/2021 patient is alert and oriented 3. Hemoglobin today 7.1. Did discuss case with GI team. Okay to resume eliquis and monitor hemoglobin. No signs of active bleeding. Patient denies chest pain or shortness of breath. Patient denies nausea vomiting or diarrhea. Patient denies any urinary burning or frequency. Total bilirubin also elevated at 4.5. 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 Repeat labs ordered for a.m. On 12/30/2021 patient was seen and examined on the medical floor he is alert and oriented 3 in no apparent distress there is no fever or chills no headache or dizziness no chest pain no shortness of breath no cough no nausea or vomiting no abdominal pain no diarrhea and no urinary symptoms, he is tolerating diet well, hemoglobin is down to 6.8 today, at this time he does not qualify for red blood cell transfusion, will give IV iron infusion today and recheck labs in a.m. On 12/31/2021 patient is alert and oriented 3. Hemoglobin 6.5. 1 unit PRBCs have been ordered. Per cardiology if anemia worsens okay to continue to hold eliquis on discharge and follow-up in office with cardiology services. Patient denies chest pain or shortness breath. Patient denies nausea vomiting or diarrhea. Patient denies any urinary burning or frequency patient denies any fu rther episodes of bleeding On 01/01/2022 patient is alert and oriented 3. Hemoglobin 6.9. 1 unit PRBCs have been ordered yesterday but not given due to shortage. Per cardiology if anemia worsens okay to continue to hold eliquis on discharge and follow-up in office with cardiology services. Patient denies chest pain or shortness breath. Patient denies nausea vomiting or diarrhea. Patient denies any urinary burning or frequency patient denies any further episodes of bleeding On 01/02/2022 patient is alert and oriented 3. Hemoglobin 6.5. 1 unit PRBCs have been ordered todaybut not given due to shortage. Per cardiology if anemia worsens okay to continue to hold eliquis on discharge and follow-up in office with cardiology services. Patient denies chest pain or shortness breath. Patient denies nausea vomiting or diarrhea. Patient denies any urinary burning or frequency patient denies any further episodes of bleeding. At this time will add hematology consult regarding severe anemia and jaundice. On 01/04/2022 patient is alert and oriented 3. Hemoglobin remains low at 6.0 additional unit of PRBCs has been ordered per oncology services. No further episodes of bleeding. Patient denies chest pain or shortness breath. Patient denies nausea vomiting or diarrhea. Patient denies any urinary burning or frequency On 01/05/2022 patient is alert and oriented 3. Globin slightly improved to 6.9 patient did receive 1 unit PRBCs yesterday. No further signs of bleeding. MRI of the liver was completed showing moderate splenomegaly small pleural effusions no evidence of hepatomegaly. Oncology services are following. Patient denies chest pain or shortness breath. Patient denies nausea vomiting or diarrhea. Patient denies any urinary burning or frequency On 01/06/2022 patient was seen and examined on the medical floor he is alert and oriented 3 in no apparent distress there is no fever or chills no headache or dizziness no chest pain no shortness of breath no cough no nausea or vomiting no abdominal pain no diarrhea and no urinary symptoms, he is tolerating diet well, white blood count 2 days 4.48 hemoglobin 8.2 platelet count 116 , total bilirubin is down to 0.8 , recheck labs in a.m. On 01/07/2022 patient is alert and oriented 3. Awaiting repeat hemoglobin results. Blood pressure also remains marginal with blood pressure of 80/47 this a.m. repeat blood pressure 104/64. At this time patient denies chest pain or shortness breath. Patient denies nausea vomiting or diarrhea. Patient denies any urinary burning or frequency On 01/08/2022 Patient was seen and examined on the medical floor he is alert and oriented 3 in no apparent distress there is no fever or chills no headache or dizziness no chest pain no shortness of breath no cough no nausea or vomiting no abdominal pain no diarrhea and no urinary symptoms, he is tolerating diet well, hemoglobin and bilirubin are better possible discharge to home tomorrow if stable and cleared by hematology Objective - Vital Signs Vital signs: Vital Signs Temp 97.5 F L 01/08/22 13:15 Pulse 68 01/08/22 13:15 Resp 18 01/08/22 13:15 BP 106/52 01/08/22 13:15 Pulse Ox 92 L 01/08/22 13:15 Intake & Output 01/07/22 01/08/22 01/08/22 18:59 06:59 18:59 Intake Total 580 Output Total 1380 Balance -800 Weight 93.6 kg Intake: Oral 580 Output: Urine 1380 - Exam In general patient is alert and oriented x 3 in no distress HEENT head normocephalic and atraumatic Neck is supple no JVD no goiter no lymphadenopathy no carotid bruit Chest examination is clear to auscultation no crackles no wheezing Cardiac exam reveals regular heart sounds S1 and S2 no gallops no murmurs Abdomen is soft nontender no organomegaly with normal bowel sounds Extremity exam reveals no edema no cyanosis or clubbing Neurological examination reveals no gross focal deficits - Labs CBC & Chem 7: 01/08/22 15:51 01/08/22 07:16 Labs: Abnormal Lab Results - Last 24 Hours (Table) 01/07/22 01/07/22 01/08/22 Range/Units 20:49 22:06 07:16 RBC 2.89 L (4.40-5.60) X 10*6/uL Hgb 9.3 L (13.0-17.0) g/dL Hct 31.1 L (39.6-50.0) % MCV 107.6 H (80.0-97.0) fL MCH 32.2 H (27.0-32.0) pg MCHC 29.9 L (32.0-37.0) g/dL RDW 22.5 H (11.5-14.5) % Plt Count 128 L (140-440) X 10*3/uL Eosinophils # 0.02 L (0.04-0.35) X 10*3/uL Macrocytosis Carbon Dioxide (20.0-27.5) mmol/L BUN (9.0-27.0) mg/dL BUN/Creatinine Ratio (12.00-20.00) Ratio Glucose (70-110) mg/dL POC Glucose (mg/dL) 314 H 252 H (75-99) mg/dL Calcium (8.7-10.3) mg/dL Total Bilirubin (0.30-1.20) mg/dL Albumin (3.8-4.9) g/dL Albumin/Globulin Ratio (1.60-3.17) g/dL 01/08/22 01/08/22 01/08/22 Range/Units 07:16 07:38 12:45 RBC (4.40-5.60) X 10*6/uL Hgb (13.0-17.0) g/dL Hct (39.6-50.0) % MCV (80.0-97.0) fL MCH (27.0-32.0) pg MCHC (32.0-37.0) g/dL RDW (11.5-14.5) % Plt Count (140-440) X 10*3/uL Eosinophils # (0.04-0.35) X 10*3/uL Macrocytosis Carbon Dioxide 27.6 H (20.0-27.5) mmol/L BUN 34.9 H (9.0-27.0) mg/dL BUN/Creatinine Ratio 31.73 H (12.00-20.00) Ratio Glucose 173 H (70-110) mg/dL POC Glucose (mg/dL) 183 H 193 H (75-99) mg/dL Calcium 8.4 L (8.7-10.3) mg/dL Total Bilirubin 1.50 H (0.30-1.20) mg/dL Albumin 3.2 L (3.8-4.9) g/dL Albumin/Globulin Ratio 1.07 L (1.60-3.17) g/dL 01/08/22 01/08/22 Range/Units 15:51 17:22 RBC 3.26 L (4.40-5.60) X 10*6/uL Hgb 10.9 L D (13.0-17.0) g/dL Hct 35.0 L (39.6-50.0) % MCV 107.3 H (80.0-97.0) fL MCH (27.0-32.0) pg MCHC (32.0-37.0) g/dL RDW 20.2 H (11.5-14.5) % Plt Count (140-440) X 10*3/uL Eosinophils # (0.04-0.35) X 10*3/uL Macrocytosis Marked A Carbon Dioxide (20.0-27.5) mmol/L BUN (9.0-27.0) mg/dL BUN/Creatinine Ratio (12.00-20.00) Ratio Glucose (70-110) mg/dL POC Glucose (mg/dL) 174 H (75-99) mg/dL Calcium (8.7-10.3) mg/dL Total Bilirubin (0.30-1.20) mg/dL Albumin (3.8-4.9) g/dL Albumin/Globulin Ratio (1.60-3.17) g/dL Assessment and Plan Plan: Anemia with hemoglobin of 6.0 on presentation, patient received 1 unit of red blood cell transfusion in the emergency room. 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 Status post argon plasma coagulation. Colonoscopy was normal. Per GI services okay to resume eliquis and monitor hemoglobin Elevated bilirubin with mild jaundice, with normal AST ALT and alkaline phosphatase, could be related to Gilbert's syndrome, hepatitis B and C profile and liver ultrasound ordered. Per GI services likely Gilbert's syndrome patient to follow-up outpatient Underlying history of hypertension Underlying history of hyperlipidemia Underlying history of atrial fibrillation maintained on adequate Underlying history of gout Underlying history of [id number] diabetes mellitus Episode of chest pain after presentation Previous history of TIA Acute on chronic heart failure with reduced EF Worsening cardiomyopathy could be related to anemia bacteremia versus nonischemic. Cardiology services are following. 2-D echo completed showing an EF of 20-25% At this time patient is admitted to medical floor and gastroenterology consultation was requested 1 unit of red blood cell transfusion was given Will monitor hemoglobin closely 12/29/2021 eliquis resumed per GI recommendation 12/31/2021 we'll hold eliquis this time due to ongoing anemia EGD and colonoscopy completed on 12/27/2021 Oncology services are following repeat Labs ordered
[2022-01-08 20:11] LABS: Glucose,Whole Blood 177 mg/dL (75-99)
[2022-01-08] MEDS: FINASTERIDE 5 MG TAB PO SCH (22:16)
[2022-01-08] MEDS: MAGNESIUM OXIDE 400 MG TAB PO SCH (22:16)
[2022-01-08] MEDS: INSULIN DETEMIR (LEVEMIR) 100 UNIT/ML SYR SQ SCH (22:16)
[2022-01-08] MEDS: ATORVASTATIN 40 MG TAB PO SCH (22:16)
[2022-01-09] MEDS: LEVOTHYROXINE 125 MCG TAB PO SCH (05:57)
[2022-01-09] MEDS: LEVOTHYROXINE 112 MCG TAB PO SCH (05:57)
[2022-01-09 07:06] LABS: Glucose,Whole Blood 165 mg/dL (75-99)
[2022-01-09] MEDS: SYMBICORT 80-4.5 MCG INHALER INHALATION SCH ×2 (07:30→19:32)
[2022-01-09] MEDS ORDERED: CYANOCOBALAMIN 1,000 MCG/ML 1 ML VIAL IM SCH (09:00)
[2022-01-09] MEDS: FUROSEMIDE 40 MG TAB PO SCH (09:44)
[2022-01-09] MEDS: PANTOPRAZOLE 40 MG TABLET PO SCH (09:44)
[2022-01-09] MEDS: INSULIN ASPART (NovoLOG) 100 UNIT/ML VIAL SQ SCH ×3 (09:44→18:42)
[2022-01-09] MEDS: ISOSORBIDE MONONITRATE ER 15 MG TAB PO SCH (09:45)
[2022-01-09] MEDS: GABAPENTIN 400 MG CAP PO SCH ×2 (09:45→18:43)
[2022-01-09] MEDS: allopurinoL 300 MG TAB PO SCH (09:45)
[2022-01-09] MEDS: carvediloL 3.125 MG TAB PO SCH ×3 (09:50→18:46)
[2022-01-09 12:13] LABS: Anisocytosis Slight; Basophils % (A) 0 %; Eosinophils # (A) 0.3 k/uL (0-0.7); Eosinophils % (A) 4 %; HCT 32.2 % (39.0-53.0); HGB 10.5 gm/dL (13.0-17.5); Hypochromasia Moderate; Lymphocytes # (A) 0.8 k/uL (1.0-4.8); Lymphocytes % (A) 11 %; MCH 35.1 pg (25.0-35.0); MCHC 32.5 g/dL (31.0-37.0); MCV 107.9 fL (80.0-100.0); Macrocytosis Marked; Monocytes # (A) 0.5 k/uL (0-1.0); Monocytes % (A) 6 %; Neutrophils # (A) 6.3 k/uL (1.3-7.7); Neutrophils % (A) 79 %; Platelet Count 134 k/uL (150-450); RBC 2.98 m/uL (4.30-5.90); RDW 19.6 % (11.5-15.5)
[2022-01-09 12:21] LABS: Glucose,Whole Blood 159 mg/dL (75-99)
[2022-01-09 13:15] VITALS: BP 99/59; PULSE 70; RESP 19; TEMP 98.2
--- NOTE | 2022-01-09 17:41 | P.DS ---
Providers Date of admission: 12/24/21 18:12 Expected date of discharge: 01/09/22 Attending physician: Karoline Mg Consults: 12/25/21 18:42 Consult Physician Routine Consulting Provider: Mayelin Vasquez Consult Reason/Comments: Chest pain, CHF Do you want consulting provider notified?: Yes 01/02/22 14:05 Consult Physician Routine Consulting Provider: Damion Atwood Consult Reason/Comments: anemia Do you want consulting provider notified?: Yes Primary care physician: Teresa Walter [facility] Course: Diagnosis on discharge: Anemia with hemoglobin of 6.0 on presentation, patient received 1 unit of red blood cell transfusion in the emergency room. 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 Status post argon plasma coagulation. Colonoscopy was normal. Per GI services okay to resume eliquis and monitor hemoglobin Elevated bilirubin with mild jaundice, with normal AST ALT and alkaline phosphatase, could be related to Gilbert's syndrome, hepatitis B and C profile and liver ultrasound ordered. Per GI services likely Gilbert's syndrome patient to follow-up outpatient Underlying history of hypertension Underlying history of hyperlipidemia Underlying history of atrial fibrillation maintained on adequate Underlying history of gout Underlying history of [id number] diabetes mellitus Episode of chest pain after presentation Previous history of TIA Acute on chronic heart failure with reduced EF Worsening cardiomyopathy could be related to anemia Hospital course: Patrick Banuelos, is a 76 year old male who presented to [facility] emergency room with a chief complaint of generalized weakness He was evaluated in the emergency room vital examination on presentation revealed a temperature of 97.7 pulse 65 respiration 18 blood pressure 105/55 pulse ox 95% on room air Laboratory data revealed a white blood count of 6.5 hemoglobin 6.0 platelet count 192 sodium 136 potassium 4.4 chloride 105 CO2 22 BUN 25 creatinine 1.01 glucose 143 Testing in the emergency room revealed EKG done in the emergency room revealed sinus rhythm with right bundle branch block and left anterior fascicular block, chest x-ray done in the emergency room revealed pulmonary congestion and mild heart failure and cardiomegaly. Patient was admitted to medical floor for further evaluation and treatment, gastroenterology consultation was requested 1 unit of red blood cell transfusion was given in the emergency room On 12/26/2020 patient was seen and examined on the medical floor he is alert and oriented 3 in no apparent distress there is no fever or chills no headache or dizziness no chest pain no shortness of breath no cough no nausea or vomiting no abdominal pain no diarrhea and no urinary symptoms he is scheduled tomorrow for EGD and colonoscopy and will receive preparation this afternoon, hemoglobin today is 6.8 will continue to monitor patient's received 1 unit of red blood cell transfusion in the emergency room On 12/27/2021 patient is alert and oriented 3. Plans for colonoscopy and EGD today per GI services labs currently pending cardiology and GI services following. Current vitals temp 97.9, pulse rate 69, respiratory rate 18, blood pressure 119/60. Patient stating 99% on 2 L. Repeat labs ordered for a.m. On 12/28/2021 patient was seen and examined on the medical floor he is alert and oriented 3 in no apparent distress there is no fever or chills no headache or dizziness no chest pain no shortness of breath no cough no nausea or vomiting no abdominal pain no diarrhea and no urinary symptoms. Hemoglobin today is down again to 6.51 unit of red blood cell transfusion was ordered. Yesterday patient underwent EGD and colonoscopy with Dr. 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 At this time will continue supportive care, advised to increase ambulation will consult physical therapy and occupational therapy will recheck labs in a.m. On 12/29/2021 patient is alert and oriented 3. Hemoglobin today 7.1. Did discuss case with GI team. Okay to resume eliquis and monitor hemoglobin. No signs of active bleeding. Patient denies chest pain or shortness of breath. Patient denies nausea vomiting or diarrhea. Patient denies any urinary burning or frequency. Total bilirubin also elevated at 4.5. 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 Repeat labs ordered for a.m. On 12/30/2021 patient was seen and examined on the medical floor he is alert and oriented 3 in no apparent distress there is no fever or chills no headache or dizziness no chest pain no shortness of breath no cough no nausea or vomiting no abdominal pain no diarrhea and no urinary symptoms, he is tolerating diet well, hemoglobin is down to 6.8 today, at this time he does not qualify for red blood cell transfusion, will give IV iron infusion today and recheck labs in a.m. On 12/31/2021 patient is alert and oriented 3. Hemoglobin 6.5. 1 unit PRBCs have been ordered. Per cardiology if anemia worsens okay to continue to hold eliquis on discharge and follow-up in office with cardiology services. Patient denies chest pain or shortness breath. Patient denies nausea vomiting or diarrhea. Patient denies any urinary burning or frequency patient denies any further episodes of bleeding On 01/01/2022 patient is alert and oriented 3. Hemoglobin 6.9. 1 unit PRBCs have been ordered yesterday but not given due to shortage. Per cardiology if anemia worsens okay to continue to hold eliquis on discharge and follow-up in office with cardiology services. Patient denies chest pain or shortness breath. Patient denies nausea vomiting or diarrhea. Patient denies any urinary burning or frequency patient denies any further episodes of bleeding On 01/02/2022 patient is alert and oriented 3. Hemoglobin 6.5. 1 unit PRBCs have been ordered todaybut not given due to shortage. Per cardiology if anemia worsens okay to continue to hold eliquis on discharge and follow-up in office with cardiology services. Patient denies chest pain or shortness breath. Patient denies nausea vomiting or diarrhea. Patient denies any urinary burning or frequency patient denies any further episodes of bleeding. At this time will add hematology consult regarding severe anemia and jaundice. On 01/04/2022 patient is alert and oriented 3. Hemoglobin remains low at 6.0 additional unit of PRBCs has been ordered per oncology services. No further episodes of bleeding. Patient denies chest pain or shortness breath. Patient denies nausea vomiting or diarrhea. Patient denies any urinary burning or frequency On 01/05/2022 patient is alert and oriented 3. Globin slightly improved to 6.9 patient did receive 1 unit PRBCs yesterday. No further signs of bleeding. MRI of the liver was completed showing moderate splenomegaly small pleural effusions no evidence of hepatomegaly. Oncology services are following. Patient denies chest pain or shortness breath. Patient denies nausea vomiting or diarrhea. Patient denies any urinary burning or frequency On 01/06/2022 patient was seen and examined on the medical floor he is alert and oriented 3 in no apparent distress there is no fever or chills no headache or dizziness no chest pain no shortness of breath no cough no nausea or vomiting no abdominal pain no diarrhea and no urinary symptoms, he is tolerating diet well, white blood count 2 days 4.48 hemoglobin 8.2 platelet count 116 , total bilirubin is down to 0.8 , recheck labs in a.m. On 01/07/2022 patient is alert and oriented 3. Awaiting repeat hemoglobin results. Blood pressure also remains marginal with blood pressure of 80/47 this a.m. repeat blood pressure 104/64. At this time patient denies chest pain or shortness breath. Patient denies nausea vomiting or diarrhea. Patient denies any urinary burning or frequency On 01/08/2022 Patient was seen and examined on the medical floor he is alert and oriented 3 in no apparent distress there is no fever or chills no headache or dizziness no chest pain no shortness of breath no cough no nausea or vomiting no abdominal pain no diarrhea and no urinary symptoms, he is tolerating diet well, hemoglobin and bilirubin are better possible discharge to home tomorrow if stable and cleared by hematology On 01/09/2022 patient was seen and examined on the medical floor is alert and oriented 3 in no apparent distress there is no fever or chills no headache or dizziness no chest pain no shortness of breath no cough no nausea or vomiting no abdominal pain no diarrhea and no urinary symptoms, jaundice has resolved, hemoglobin is stable at 10.2 at this time patient will be discharged home, medications reviewed with patient, he has a new prescription for Imdur 15 mg by mouth daily as recommended by cardiology no other new prescriptions, at this time patient will be off Eliquis, per cardiology recommendation this could be restarted in about 1 week if his hemoglobin stays stable, with very close monitoring of his CBC. Patient should be followed by Dr. Atwood as outpatient in 1-2 weeks Plan - Discharge Summary New Discharge Prescriptions: New Isosorbide Mononitrate ER [Imdur] 15 mg PO DAILY tab Cyanocobalamin [Vitamin B-12 Injection] 1,000 mcg IM DAILY ml Furosemide [Lasix] 40 mg PO BID@0900,1600 30 Days #60 tab Continue Allopurinol [Zyloprim] 300 mg PO DAILY Albuterol Sulfate [Proventil Hfa] 1 puff INHALATION RT-Q4H PRN PRN Reason: Shortness Of Breath diazePAM [Valium] 5 mg PO BID PRN PRN Reason: anxiety/insomnia Levothyroxine Sodium [Synthroid] 125 mcg PO 0900 Gabapentin 1,200 mg PO TID Levothyroxine Sodium [Synthroid] 112 mcg PO 0900 Nitroglycerin Sl Tabs [Nitrostat] 0.4 mg SL Q5M PRN PRN Reason: Chest Pain Magnesium Oxide [Mag-Ox] 500 mg PO HS carvediloL [Coreg] 6.25 mg PO BID-W/MEALS Meclizine [Antivert] 25 mg PO BID PRN PRN Reason: dizziness Finasteride [Proscar] 5 mg PO HS Omeprazole 20 mg PO DAILY Atorvastatin [Lipitor] 40 mg PO HS Fluticasone Propion/Salmeterol [Fluticasone-Salmeterol 100-50] 1 puff INHALATION RT-BID Discontinued Apixaban [Eliquis] 5 mg PO BID metFORMIN HCL [Glucophage] 1,000 mg PO BID Discharge Medication List Allopurinol [Zyloprim] 300 mg PO DAILY 08/07/17 [History] Albuterol Sulfate [Proventil Hfa] 1 puff INHALATION RT-Q4H PRN 10/15/17 [History] Gabapentin 1,200 mg PO TID 10/02/18 [History] Levothyroxine Sodium [Synthroid] 112 mcg PO 0900 10/02/18 [History] Levothyroxine Sodium [Synthroid] 125 mcg PO 0900 10/02/18 [History] Nitroglycerin Sl Tabs [Nitrostat] 0.4 mg SL Q5M PRN 10/02/18 [History] diazePAM [Valium] 5 mg PO BID PRN 10/02/18 [History] Finasteride [Proscar] 5 mg PO HS 03/17/21 [History] Magnesium Oxide [Mag-Ox] 500 mg PO HS 03/17/21 [History] Meclizine [Antivert] 25 mg PO BID PRN 03/17/21 [History] Omeprazole 20 mg PO DAILY 03/17/21 [History] carvediloL [Coreg] 6.25 mg PO BID-W/MEALS 03/17/21 [History] Atorvastatin [Lipitor] 40 mg PO HS 10/19/21 [History] Fluticasone Propion/Salmeterol [Fluticasone-Salmeterol 100-50] 1 puff INHALATION RT-BID 10/19/21 [History] Furosemide [Lasix] 40 mg PO BID@0900,1600 30 Days #60 tab 12/29/21 [Rx] Cyanocobalamin [Vitamin B-12 Injection] 1,000 mcg IM DAILY ml 01/09/22 [Rx] Isosorbide Mononitrate ER [Imdur] 15 mg PO DAILY tab 01/09/22 [Rx] Follow up Appointment(s)/Referral(s): Teresa Walter MD [Primary Care Provider] - 1-2 days (patient wants appt with not PA) Jannette Marie MD [STAFF PHYSICIAN] - 2 Weeks [facility], [NON-STAFF] - 1 Week Reji Mac MD [STAFF PHYSICIAN] - 01/03/22 2:00 pm
[2022-01-09 17:47] LABS: Glucose,Whole Blood 173 mg/dL (75-99)
--- NOTE | 2022-01-09 20:20 | P.PN ---
Subjective Progress Note Date: 01/09/22 Principal diagnosis: anemia, not responding to transfusion In f/u pt continues to be pleasant, tolerating oral intake, symptoms of anemia are decreasing, he is less SOB with activity, he feels better, denies bleeding, unusual bruising or pain. Objective - Vital Signs Vital signs: Vital Signs Temp 98.2 F 01/09/22 13:00 Pulse 70 01/09/22 13:00 Resp 19 01/09/22 13:00 BP 99/59 01/09/22 13:00 Pulse Ox 92 L 01/09/22 13:00 Intake & Output 01/09/22 01/09/22 01/10/22 06:59 18:59 06:59 Weight 94.574 kg Other: Voiding Method Urinal Diaper Incontinent - Constitutional General appearance: Present: average body habitus, cooperative, no acute distress - EENT Eyes: Present: anicteric sclerae, EOMI ENT: Present: hearing grossly normal - Respiratory Respiratory: bilateral: CTA - Cardiovascular Rhythm: regular Heart sounds: normal: S1, S2 Abnormal Heart Sounds: Absent: systolic murmur, diastolic murmur, rub, S3 Gallop, S4 Gallop, click, other - Peripheral edema leg Peripheral Edema: bilateral: None - Integumentary Integumentary: Present: normal - Neurologic Neurologic: Present: CNII-XII intact - Musculoskeletal Musculoskeletal: Present: generalized weakness, strength equal bilaterally - Psychiatric Psychiatric: Present: A&O x's 3, appropriate affect, intact judgment & insight - Labs CBC & Chem 7: 01/09/22 11:27 01/08/22 07:16 Labs: Abnormal Lab Results - Last 24 Hours (Table) 01/09/22 01/09/22 01/09/22 Range/Units 07:03 11:27 12:18 RBC 2.98 L (4.30-5.90) m/uL Hgb 10.5 L (13.0-17.5) gm/dL Hct 32.2 L (39.0-53.0) % MCV 107.9 H (80.0-100.0) fL MCH 35.1 H (25.0-35.0) pg RDW 19.6 H (11.5-15.5) % Plt Count 134 L (150-450) k/uL Lymphocytes # 0.8 L (1.0-4.8) k/uL Macrocytosis Marked A POC Glucose (mg/dL) 165 H 159 H (75-99) mg/dL 01/09/22 Range/Units 17:34 RBC (4.30-5.90) m/uL Hgb (13.0-17.5) gm/dL Hct (39.0-53.0) % MCV (80.0-100.0) fL MCH (25.0-35.0) pg RDW (11.5-15.5) % Plt Count (150-450) k/uL Lymphocytes # (1.0-4.8) k/uL Macrocytosis POC Glucose (mg/dL) 173 H (75-99) mg/dL Assessment and Plan (1) Macrocytic anemia Narrative/Plan: Hgbhas been improving, after pt seen Hgb returned at 10.5. Iron studies normal B12 low normal, MMA elevated. Start B12 supplement Cont to monitor CBC for return to normal levels Exact cause unknown, suspect a degree of hemolysis but, this was never absolutely confirmed on lab work up. Steroids were started with improvement/stable Hgb. Cont to be improving after stopping steroids. Still pending completion of paraproteinemia work up-K/L elevated. Will await the rest of the testing and make recommendations. Status: Acute Priority: High Code(s): D53.9 - NUTRITIONAL ANEMIA, UNSPECIFIED SNOMED Code(s): 73064356
[2022-01-10 12:06] LABS: Albumin 2.95 g/dL (3.80-4.90); Gamma Globulin 1.96 g/dL (0.70-1.50)
--- NOTE | 2022-01-12 07:58 | CDI ---
Documentation Clarification Form Date: 01/12/2022 07:40:00 AM From: Itzel Poole Admit Date: 12/24/2021 06:12:00 PM Patient Name: Patrick Banuelos Visit Number: [id number] Discharge Date: 01/09/2022 07:53:00 PM ATTENTION: The Clinical Documentation Specialists (CDI) and [facility] Coding Staff appreciate your assistance in clarifying documentation. Please respond to the clarification below the line at the bottom and electronically sign. The CDI & [facility] Coding staff will review the response and follow-up if needed. Please note: Queries are made part of the Legal Health Record. If you have any questions, please contact the author of this message via ITS. Dr. Karoline Mg, 6Possibility of non autoimmune hemolytic anemia is documented in the 01/[address] Perez. Additional specificity regarding the [type, acuity] of anemia is requested. History/Risk Factors: Gilbert's syndrome, HTN w acute on chronic systolic CHF, HLD, PAF, Type II DM Clinical Indicators: C/C of generalized weakness. Anemia with hemoglobin of 6.0 on presentation, received 1 unit of RBC transfusion in ER. He has been anemic two other times. Hemoglobin: 6.0, 6.6, 6.8, 5.6, 6.5, 7.1, 6.8, 6.5, 7.3, 6.6, 6.9, 6.5, 6.0, 6.0, 6.9 (12/24-01/05/22) Hematocrit: 19.9, 22.9, 24.0, 19.5, 23.0, 24.1, 23.0, 22.0, 23.2, 22.3, 21.5, 20.3, 19.8, 19.8, 22.0 (12/24-01/05/22) Bilirubin: 3.1, 3.2, 2.60, 2.60, 3.6, 4.5, 3.80, 3.10, 4.00, 4.8, 3.40, 1.80 (12/24-01/04/22) Reticulocyte CT: 14.7 Haptoglobin: <10.0 Treatment: Received 6 units of RBCs, Please clarify the type of anemia: [ ] Non autoimmune hemolytic anemia [ X] Anemia [ ] Unable to determine [ ] Other, please specify MTDD
== END 2022-01-09 19:53 | disposition home health service (06) | DRG 811 ==
LOC: EC 16:15 → 5NMEDONC 18:12
PROVIDERS: ADMIT Internal Medicine; ATTEND Internal Medicine
PROC: 30233N1 Transfusion of Nonautologous Red Blood Cells into Peripheral Vein, Percutaneous Approach (ICD-10-PCS; principal; 2021-12-24)
PROC: 0D578ZZ Destruction of Stomach, Pylorus, Via Natural or Artificial Opening Endoscopic (ICD-10-PCS; 2021-12-27 13:00)
PROC: 0DJD8ZZ Inspection of Lower Intestinal Tract, Via Natural or Artificial Opening Endoscopic (ICD-10-PCS; 2021-12-27 13:00)
DX: D64.9 Anemia, unspecified (principal); I50.23 Acute on chronic systolic (congestive) heart failure; I45.2 Bifascicular block; K31.819 Angiodysplasia of stomach and duodenum without bleeding; D53.9 Nutritional anemia, unspecified; I27.20 Pulmonary hypertension, unspecified; E11.42 Type 2 diabetes mellitus with diabetic polyneuropathy; I11.0 Hypertensive heart disease with heart failure; I95.9 Hypotension, unspecified; E03.9 Hypothyroidism, unspecified; J44.9 Chronic obstructive pulmonary disease, unspecified; I48.0 Paroxysmal atrial fibrillation; E80.4 Gilbert syndrome; I25.5 Ischemic cardiomyopathy; I08.3 Combined rheumatic disorders of mitral, aortic and tricuspid valves; R07.89 Other chest pain; I25.10 Atherosclerotic heart disease of native coronary artery without angina pectoris; E78.5 Hyperlipidemia, unspecified; E53.8 Deficiency of other specified B group vitamins; K57.30 Diverticulosis of large intestine without perforation or abscess without bleeding; N40.1 Benign prostatic hyperplasia with lower urinary tract symptoms; N39.498 Other specified urinary incontinence; M10.9 Gout, unspecified; I25.2 Old myocardial infarction; R16.1 Splenomegaly, not elsewhere classified; Z79.01 Long term (current) use of anticoagulants; Z79.84 Long term (current) use of oral hypoglycemic drugs; Z79.890 Hormone replacement therapy; Z79.51 Long term (current) use of inhaled steroids; Z79.899 Other long term (current) drug therapy; Z87.19 Personal history of other diseases of the digestive system; Z90.49 Acquired absence of other specified parts of digestive tract; Z87.01 Personal history of pneumonia (recurrent); Z87.81 Personal history of (healed) traumatic fracture; Z95.1 Presence of aortocoronary bypass graft; Z95.5 Presence of coronary angioplasty implant and graft; Z96.652 Presence of left artificial knee joint; Z87.891 Personal history of nicotine dependence; Z86.73 Personal history of transient ischemic attack (TIA), and cerebral infarction without residual deficits; Z98.890 Other specified postprocedural states; Z88.8 Allergy status to other drugs, medicaments and biological substances; Z88.1 Allergy status to other antibiotic agents; Z88.5 Allergy status to narcotic agent; Z91.013 Allergy to seafood; Z83.3 Family history of diabetes mellitus; Z82.3 Family history of stroke; Z82.49 Family history of ischemic heart disease and other diseases of the circulatory system
CPT/HCPCS: 36415; 43255; 45378; 71045; 71046; 74183; 76705; 80053; 80074; 81003; 82248; 82607; 82728; 82746; 83010; 83540; 83550; 83605; 83615; 83735; 83880; 83883; 83921; 84165; 84439; 84443; 84481; 84484; 85025; 85027; 85045; 85610; 85730; 86038; 86157; 86334; 86431; 86850; 86870; 86880; 86900; 86901; 86920; 93005; 93306; 94640; 94760; 99285

== ENCOUNTER 2022-09-04 10:21 | Emergency (ER) | payer MEDICARE ==
[2022-09-04 10:33] VITALS: RESP 16
--- NOTE | 2022-09-04 10:53 | ED ---
Extremity Problem HPI - General Chief complaint: Extremity Problem,Nontraumatic Stated complaint: Left arm pain Time Seen by Provider: 09/04/22 10:22 Source: patient, RN notes reviewed Mode of arrival: EMS Limitations: no limitations - History of Present Illness Initial comments: Patient is a 76 year old male presenting to the ER with a chief complaint of left arm pain. He reports this started last week, , and he saw his PCP who treated it conservatively. This morning he was experiencing constant sharp pains starting at his shoulder moving distally to his fingers. He also reports associated left extremity limited ROM and numbness/tingling which he cannot distinguish from his neuropathy. He denies injury or overuse of the extremity. Due to his cardiac and stroke history, he presented to the ER for evaluation. - Related Data Home Medications Medication Instructions Recorded Confirmed allopurinoL [Zyloprim] 300 mg PO DAILY 08/07/17 12/24/21 Albuterol Sulfate [Proventil Hfa] 1 puff INHALATION RT-Q4H PRN 10/15/17 12/24/21 Gabapentin 1,200 mg PO TID 10/02/18 12/24/21 Levothyroxine Sodium [Synthroid] 112 mcg PO 0900 10/02/18 01/07/22 Levothyroxine Sodium [Synthroid] 125 mcg PO 0900 10/02/18 01/07/22 Nitroglycerin Sl Tabs [Nitrostat] 0.4 mg SL Q5M PRN 10/02/18 12/24/21 diazePAM [Valium] 5 mg PO BID PRN 10/02/18 12/24/21 Finasteride [Proscar] 5 mg PO HS 03/17/21 12/24/21 Magnesium Oxide [Mag-Ox] 500 mg PO HS 03/17/21 12/24/21 Meclizine [Antivert] 25 mg PO BID PRN 03/17/21 12/24/21 Omeprazole 20 mg PO DAILY 03/17/21 12/24/21 carvediloL [Coreg] 6.25 mg PO BID-W/MEALS 03/17/21 12/24/21 Atorvastatin [Lipitor] 40 mg PO HS 10/19/21 12/24/21 Fluticasone Propion/Salmeterol 1 puff INHALATION RT-BID 10/19/21 12/24/21 [Fluticasone-Salmeterol 100-50] Previous Rx's Medication Instructions Recorded Furosemide [Lasix] 40 mg PO BID@0900,1600 30 Days #60 12/29/21 tab Cyanocobalamin [Vitamin B-12 1,000 mcg IM DAILY ml 01/09/22 Injection] Isosorbide Mononitrate ER [Imdur] 15 mg PO DAILY tab 01/09/22 predniSONE 50 mg PO DAILY #4 tab 09/04/22 Allergies Allergy/AdvReac Type Severity Reaction Status Date / Time cephalexin [From Keflex] Allergy Unknown Verified 09/04/22 10:33 clopidogrel [From Plavix] Allergy Rash/Hives Verified 09/04/22 10:33 codeine Allergy Rash/Nausea Verified 09/04/22 10:33 & Vomiting Iodine and Iodide Containing Allergy Rash/Hives Verified 09/04/22 10:33 Produc levofloxacin [From Levaquin] Allergy urticaria/r Verified 09/04/22 10:33 belle shellfish derived [Shellfish] Allergy urticaria/r Verified 09/04/22 10:33 belle lisinopril AdvReac Angiodema Verified 09/04/22 10:33 of tongue oxycodone AdvReac Hallucinati Verified 09/04/22 10:33 ons solifenacin AdvReac Nausea & Verified 09/04/22 10:33 Vomiting Review of Systems ROS Statement: Those systems with pertinent positive or pertinent negative responses have been documented in the HPI. ROS Other: All systems not noted in ROS Statement are negative. Past Medical History Past Medical History: Atrial Fibrillation, Asthma, Coronary Artery Disease (CAD), COPD, Diabetes Mellitus, Hypertension, Myocardial Infarction ([place]), Pneumonia Additional Past Medical History / Comment(s): left knee cap broken, pancreatitis, /gallstones Last Myocardial Infarction Date:: 2017 History of Any Multi-Drug Resistant Organisms: None Reported Past Surgical History: Cholecystectomy, Coronary Bypass/CABG, Heart Catheterization With Stent, Hernia Repair, Orthopedic Surgery Additional Past Surgical History / Comment(s): lt knee replacement(total of 3 sx), colonoscopy, Left knee cap removal with antibiotic spacers placed, Past Anesthesia/Blood Transfusion Reactions: No Reported Reaction Date of Last Stent Placement:: 10/2015 Past Psychological History: No Psychological Hx Reported Smoking Status: Former smoker Past Alcohol Use History: Occasional Past Drug Use History: None Reported - Past Family History Father Family Medical History: Diabetes Mellitus Mother Family Medical History: CVA/TIA, Hypertension General Exam Limitations: no limitations General appearance: alert, in no apparent distress Head exam: Present: atraumatic, normocephalic, normal inspection Respiratory exam: Present: normal lung sounds bilaterally. Absent: respiratory distress, wheezes, rales, rhonchi, stridor Cardiovascular Exam: Present: normal rhythm, irregular rhythm, normal heart sounds. Absent: systolic murmur, diastolic murmur, rubs, gallop, clicks GI/Abdominal exam: Present: soft, normal bowel sounds. Absent: distended, tenderness, guarding, rebound, rigid Extremities exam: Present: full ROM (flexion to 90 with pain), tenderness (left lateral epicondyle ) Neurological exam: Present: alert, oriented X3, CN II-XII intact Psychiatric exam: Present: normal affect, normal mood Skin exam: Present: warm, dry, intact, normal color. Absent: rash Course Vital Signs 09/04/22 10:28 Temperature 98.5 F Pulse Rate 66 Respiratory 16 Rate Blood Pressure 98/64 O2 Sat by Pulse 95 Oximetry Medical Decision Making - Medical Decision Making 76-year-old presented for left elbow pain, tenderness. This is reproducible pain. X-ray shows mild effusion no acute fracture. Patient symptoms are related to inflammatory process, tendinitis. Patient was started on steroids he states he takes [place] at home for pain control, icing we did discuss brace to his left arm. Patient will follow-up with orthopedics. - EKG Data -: EKG Interpreted by Me EKG Comments: EKG performed at 11:37 rate of 61, ID [id number], QRS 172, QTC is QTC 442/444 this is sinus rhythm first-degree AV block, right bundle, interpreted by me. Disposition Clinical Impression: Left elbow tendinitis Disposition: HOME SELF-CARE Condition: Stable Instructions (If sedation given, give patient instructions): Tennis Elbow (ED) Additional Instructions: Please return to the Emergency Department if symptoms worsen or any other concerns. Prescriptions: predniSONE 50 mg PO DAILY #4 tab Is patient prescribed a controlled substance at d/c from ED?: No Referrals: Teresa Walter MD [Primary Care Provider] - 1-2 days Baron Eason DO [Doctor of Osteopathic Medicine] - 1-2 days Time of Disposition: 11:43
--- NOTE | 2022-09-04 11:23 | XR ---
EXAMINATION TYPE: XR elbow complete LT DATE OF EXAM: 09/04/2022 COMPARISON: None HISTORY: Pain, swelling x1 week TECHNIQUE: 3 view left elbow FINDINGS: Radius aligns normally with the humerus. Olecranon spur is present. No acute fracture or di slocation is evident. There is some elevation of the posterior fat pad. Small joint effusion could be considered. IMPRESSION: 1. There may be a small joint effusion. Displaced fracture is not identified. Consider short-term fo llow-up.
[2022-09-04] MEDS ORDERED: predniSONE 50 MG TAB PO STA (11:39)
[2022-09-04 12:16] VITALS: BP 138/79; PULSE 76; TEMP 98.2
== END 2022-09-04 12:14 | disposition home or self-care (01) ==
LOC: EC 10:21
DX: M77.8 Other enthesopathies, not elsewhere classified (principal); I48.91 Unspecified atrial fibrillation; J45.909 Unspecified asthma, uncomplicated; I12.9 Hypertensive chronic kidney disease with stage 1 through stage 4 chronic kidney disease, or unspecified chronic kidney disease; J44.9 Chronic obstructive pulmonary disease, unspecified; E11.9 Type 2 diabetes mellitus without complications; I25.2 Old myocardial infarction; Z87.891 Personal history of nicotine dependence; Z79.51 Long term (current) use of inhaled steroids; Z79.899 Other long term (current) drug therapy; Z79.84 Long term (current) use of oral hypoglycemic drugs; Z88.1 Allergy status to other antibiotic agents; Z88.9 Allergy status to unspecified drugs, medicaments and biological substances; Z88.5 Allergy status to narcotic agent; Z91.041 Radiographic dye allergy status; Z88.8 Allergy status to other drugs, medicaments and biological substances
CPT/HCPCS: 93005; 73080; 99284; J7512

== ENCOUNTER → 2022-09-13 | Outpatient (CLI) | payer MEDICARE ==
--- NOTE | 2022-09-13 15:35 | XR ---
EXAMINATION TYPE: XR chest 2V DATE OF EXAM: 09/13/2022 1:45 PM COMPARISON: 12/29/2021 TECHNIQUE: XR chest 2V Frontal and lateral views of the chest . CLINICAL INDICATION:Male, 76 years old with history of R06.2,R05.2; FINDINGS: Lungs/Pleura: There is no evidence of pleural effusion, focal consolidation, or pneumothorax. Pulmonary vascularity: Unremarkable. Heart/mediastinum: Cardiomediastinal silhouette is unremarkable. Musculoskeletal: No acute osseous pathology. Midline sternotomy wires are noted. IMPRESSION: No acute cardiopulmonary disease/process.
== END | disposition home or self-care (01) ==
LOC: RADXRMAIN 13:33
PROVIDERS: ATTEND Family Medicine
DX: R06.2 Wheezing (principal); R05.2 Subacute cough
CPT/HCPCS: 71046

== ENCOUNTER 2022-09-28 16:11 | Inpatient (IN) | payer MEDICARE ==
[2022-09-28 17:10] LABS: Basophils % (A) 0 %; Eosinophils # (A) 0.1 k/uL (0-0.7); Eosinophils % (A) 0 %; HCT 46.7 % (39.0-53.0); HGB 15.9 gm/dL (13.0-17.5); Lymphocytes # (A) 0.3 k/uL (1.0-4.8); Lymphocytes % (A) 2 %; MCH 32.7 pg (25.0-35.0); MCHC 34.1 g/dL (31.0-37.0); MCV 95.9 fL (80.0-100.0); Mean Platelet Volume 8.6; Monocytes # (A) 0.5 k/uL (0-1.0); Monocytes % (A) 3 %; Neutrophils # (A) 15.7 k/uL (1.3-7.7); Neutrophils % (A) 94 %; Platelet Count 119 k/uL (150-450); RBC 4.87 m/uL (4.30-5.90); RDW 13.7 % (11.5-15.5); WBC 16.7 k/uL (3.8-10.6)
[2022-09-28 17:21] LABS: Albumin 2.6 g/dL (3.5-5.0); Calcium 7.5 mg/dL (8.4-10.2); Magnesium 1.8 mg/dL (1.6-2.3); Potassium 5.8 mmol/L (3.5-5.1); Total Bilirubin 1.4 mg/dL (0.2-1.3); Total Protein 4.9 g/dL (6.3-8.2)
--- NOTE | 2022-09-28 17:44 | ED ---
General Adult HPI - General Stated complaint: sob, weakness Time Seen by Provider: 09/28/22 16:22 - History of Present Illness Initial comments: This is a 76-year-old male with a past rectal history including congestive heart failure, atrial fibrillation on Eliquis, hypertension presented to the emergency department via EMS for increasing shortness of breath and weakness. The patient stated that he was admitted to [facility] for approximately 7 days and was discharged 5 days ago for the same symptoms. The patient stated that he was at home and had increasing weakness and difficulty with breathing especially on exertion. The patient stated that he was not improving over the last several days and was getting frustrated she called EMS for further workup and evaluation here in the emergency department. The patient stated that even speaking was causing to have increased shortness of breath. The patient denied any fevers and chills and denied any other acute pain or complaints at this time. - Related Data Home Medications Medication Instructions Recorded Confirmed allopurinoL [Zyloprim] 300 mg PO DAILY 08/07/17 12/24/21 Albuterol Sulfate [Proventil Hfa] 1 puff INHALATION RT-Q4H PRN 10/15/17 12/24/21 Gabapentin 1,200 mg PO TID 10/02/18 12/24/21 Levothyroxine Sodium [Synthroid] 112 mcg PO 0900 10/02/18 01/07/22 Levothyroxine Sodium [Synthroid] 125 mcg PO 0900 10/02/18 01/07/22 Nitroglycerin Sl Tabs [Nitrostat] 0.4 mg SL Q5M PRN 10/02/18 12/24/21 diazePAM [Valium] 5 mg PO BID PRN 10/02/18 12/24/21 Finasteride [Proscar] 5 mg PO HS 03/17/21 12/24/21 Magnesium Oxide [Mag-Ox] 500 mg PO HS 03/17/21 12/24/21 Meclizine [Antivert] 25 mg PO BID PRN 03/17/21 12/24/21 Omeprazole 20 mg PO DAILY 03/17/21 12/24/21 carvediloL [Coreg] 6.25 mg PO BID-W/MEALS 03/17/21 12/24/21 Atorvastatin [Lipitor] 40 mg PO HS 10/19/21 12/24/21 Fluticasone Propion/Salmeterol 1 puff INHALATION RT-BID 10/19/21 12/24/21 [Fluticasone-Salmeterol 100-50] Previous Rx's Medication Instructions Recorded Furosemide [Lasix] 40 mg PO BID@0900,1600 30 Days #60 12/29/21 tab Cyanocobalamin [Vitamin B-12 1,000 mcg IM DAILY ml 01/09/22 Injection] Isosorbide Mononitrate ER [Imdur] 15 mg PO DAILY tab 01/09/22 predniSONE 50 mg PO DAILY #4 tab 09/04/22 Allergies Allergy/AdvReac Type Severity Reaction Status Date / Time cephalexin [From Keflex] Allergy Unknown Verified 09/28/22 18:09 clopidogrel [From Plavix] Allergy Rash/Hives Verified 09/28/22 18:09 codeine Allergy Rash/Nausea Verified 09/28/22 18:09 & Vomiting Iodine and Iodide Containing Allergy Rash/Hives Verified 09/28/22 18:09 Produc levofloxacin [From Levaquin] Allergy urticaria/r Verified 09/28/22 18:09 belel shellfish derived [Shellfish] Allergy urticaria/r Verified 09/28/22 18:09 belle lisinopril AdvReac Angiodema Verified 09/28/22 18:09 of tongue oxycodone AdvReac Hallucinati Verified 09/28/22 18:09 ons solifenacin AdvReac Nausea & Verified 09/28/22 18:09 Vomiting Review of Systems ROS Statement: Those systems with pertinent positive or pertinent negative responses have been documented in the HPI. ROS Other: All systems not noted in ROS Statement are negative. Past Medical History Past Medical History: Atrial Fibrillation, Asthma, Coronary Artery Disease ( CAD), COPD, Diabetes Mellitus, Hypertension, Myocardial Infarction ([place]), Pneumonia Additional Past Medical History / Comment(s): left knee cap broken, pancreatitis, /gallstones Last Myocardial Infarction Date:: 2017 History of Any Multi-Drug Resistant Organisms: None Reported Past Surgical History: Cholecystectomy, Coronary Bypass/CABG, Heart Catheterization With Stent, Hernia Repair, Orthopedic Surgery Additional Past Surgical History / Comment(s): lt knee replacement(total of 3 sx), colonoscopy, Left knee cap removal with antibiotic spacers placed, Past Anesthesia/Blood Transfusion Reactions: No Reported Reaction Date of Last Stent Placement:: 10/2015 Past Psychological History: No Psychological Hx Reported Smoking Status: Former smoker Past Alcohol Use History: Occasional Past Drug Use History: None Reported - Past Family History Father Family Medical History: Diabetes Mellitus Mother Family Medical History: CVA/TIA, Hypertension General Exam Limitations: no limitations General appearance: alert, in no apparent distress, obese Head exam: Present: atraumatic, normocephalic Eye exam: Present: normal appearance, PERRL Pupils: Present: normal accommodation ENT exam: Present: normal exam, normal oropharynx, mucous membranes moist Neck exam: Present: normal inspection, full ROM Respiratory exam: Present: rhonchi (Diffuse rhonchi heard in all lung fuentes) Cardiovascular Exam: Present: regular rate, irregular rhythm GI/Abdominal exam: Present: soft, distended, normal bowel sounds Extremities exam: Present: normal inspection, full ROM, pedal edema Back exam: Present: normal inspection, full ROM Neurological exam: Present: alert, oriented X3, CN II-XII intact Psychiatric exam: Present: normal affect, normal mood Skin exam: Present: warm, dry Course Vital Signs 09/28/22 18:03 Temperature 97.7 F Pulse Rate 90 Respiratory 18 Rate Blood Pressure 127/77 O2 Sat by Pulse 98 Oximetry EKG Findings - EKG Comments: EKG Findings:: EKG was obtained and was read by myself. EKG showed a rate of 93, QRS duration of 180, QTC of 45. This EKG showed atrial fibrillation without rapid ventricular response. There was also a right bundle branch block present. The patient does have a history of atrial fibrillation and is on Eliquis. There was no ST segment elevations or depressions noted. Medical Decision Making - Medical Decision Making The patient was seen and evaluated in the emergency department. On physical exam, the patient was resting in bed without any acute distress. The patient was speaking in shortened sentences secondary to shortness of breath. Vital signs on admission were however stable and within normal limits. Due to the nature the patient's complaints, laboratory workup was obtained including a chest x-ray and EKG. laboratory workup did show an elevated white blood cell count of 16 likely in the setting of the patient being on steroids. The patient's proBNP was also elevated and will be treated for CHF exacerbation at this time. The patient was given IV Lasix. The patient's potassium was also elevated 5.8 however he did not show any signs of changes on EKG therefore will not be treated at this time. The patient's d-dimer was also elevated at 1.14 and a CTA of the chest was ordered to rule out any PE. The patient does have an ALLERGY to iodine and was pretreated with Solu-Medrol and Benadryl prior to the computed tomography scan. Chest x-ray was obtained and was interpreted by myself. This x-ray showed coarse interstitial pulmonary density and minimal pleural fluid. There is probably some pulmonary interstitial fibrosis with mild heart failure not entirely excluded. Due to the patient's increasing weakness, CHF exacerbation and worsening exertional dyspnea, the patient will be admitted for further workup and evaluation. The patient's primary care physician is being covered by Dr. Mg. He was contacted at [phone] and did accept the patient for admission. Cardiology and pulmonology will be placed on consult. The patient's CTA of the chest was still pending at this time and will be followed up upon prior to the patient being transported to the floor. The patient was told this plan and was agreeable. The patient was admitted in stable condition. - Lab Data Result diagrams: 09/28/22 16:50 09/28/22 16:50 Lab Results 09/28/22 09/28/22 09/28/22 Range/Units 16:50 16:50 16:50 WBC 16.7 H (3.8-10.6) k/uL RBC 4.87 (4.30-5.90) m/uL Hgb 15.9 (13.0-17.5) gm/dL Hct 46.7 (39.0-53.0) % MCV 95.9 (80.0-100.0) fL MCH 32.7 (25.0-35.0) pg MCHC 34.1 (31.0-37.0) g/dL RDW 13.7 (11.5-15.5) % Plt Count 119 L (150-450) k/uL MPV 8.6 Neutrophils % 94 % Lymphocytes % 2 % Monocytes % 3 % Eosinophils % 0 % Basophils % 0 % Neutrophils # 15.7 H (1.3-7.7) k/uL Lymphocytes # 0.3 L (1.0-4.8) k/uL Monocytes # 0.5 (0-1.0) k/uL Eosinophils # 0.1 (0-0.7) k/uL Basophils # 0.0 (0-0.2) k/uL D-Dimer 1.14 H (<0.60) mg/L FEU Sodium 127 L (137-145) mmol/L Potassium 5.8 H (3.5-5.1) mmol/L Chloride 103 (98-107) mmol/L Carbon Dioxide 24 (22-30) mmol/L Anion Gap 0 mmol/L BUN 39 H (9-20) mg/dL Creatinine 1.20 (0.66-1.25) mg/dL Est GFR (CKD-EPI)AfAm 67 (>60 ml/min/1.73 sqM) Est GFR (CKD-EPI)NonAf 58 (>60 ml/min/1.73 sqM) Glucose 309 H (74-99) mg/dL Calcium 7.5 L (8.4-10.2) mg/dL Magnesium 1.8 (1.6-2.3) mg/dL Total Bilirubin 1.4 H (0.2-1.3) mg/dL AST 20 (17-59) U/L ALT 34 (4-49) U/L Alkaline Phosphatase 57 (38-126) U/L Troponin I (0.000-0.034) ng/mL NT-Pro-B Natriuret Pep pg/mL Total Protein 4.9 L (6.3-8.2) g/dL Albumin 2.6 L (3.5-5.0) g/dL Lipase 40 (23-300) U/L 09/28/22 09/28/22 Range/Units 16:50 16:50 WBC (3.8-10.6) k/uL RBC (4.30-5.90) m/uL Hgb (13.0-17.5) gm/dL Hct (39.0-53.0) % MCV (80.0-100.0) fL MCH (25.0-35.0) pg MCHC (31.0-37.0) g/dL RDW (11.5-15.5) % Plt Count (150-450) k/uL MPV Neutrophils % % Lymphocytes % % Monocytes % % Eosinophils % % Basophils % % Neutrophils # (1.3-7.7) k/uL Lymphocytes # (1.0-4.8) k/uL Monocytes # (0-1.0) k/uL Eosinophils # (0-0.7) k/uL Basophils # (0-0.2) k/uL D-Dimer (<0.60) mg/L FEU Sodium (137-145) mmol/L Potassium (3.5-5.1) mmol/L Chloride (98-107) mmol/L Carbon Dioxide (22-30) mmol/L Anion Gap mmol/L BUN (9-20) mg/dL Creatinine (0.66-1.25) mg/dL Est GFR (CKD-EPI)AfAm (>60 ml/min/1.73 sqM) Est GFR (CKD-EPI)NonAf (>60 ml/min/1.73 sqM) Glucose (74-99) mg/dL Calcium (8.4-10.2) mg/dL Magnesium (1.6-2.3) mg/dL Total Bilirubin (0.2-1.3) mg/dL AST (17-59) U/L ALT (4-49) U/L Alkaline Phosphatase (38-126) U/L Troponin I 0.032 (0.000-0.034) ng/mL NT-Pro-B Natriuret Pep 3630 pg/mL Total Protein (6.3-8.2) g/dL Albumin (3.5-5.0) g/dL Lipase (23-300) U/L Disposition Clinical Impression: CHF (congestive heart failure), Hyperkalemia, Weakness, Failure to thrive Disposition: ADMITTED IP TO THIS [facility] Condition: Stable Is patient prescribed a controlled substance at d/c from ED?: No Referrals: Teresa Walter MD [Primary Care Provider] - 1-2 days Time of Disposition: 20:03 Decision to Admit Reason: Admit from EC Decision Date: 09/28/22 Decision Time: 20:03
--- NOTE | 2022-09-28 17:49 | XR ---
EXAMINATION TYPE: XR chest 2V DATE OF EXAM: 09/28/2022 COMPARISON: 09/13/2022 HISTORY: Short of breath TECHNIQUE: FINDINGS: There are sternal wires. There is some coarsening of interstitial pulmonary markings. There are no hilar masses. There is slight blunting of the costophrenic angles. IMPRESSION: There is coarse interstitial pulmonary density and minimal pleural fluid. There is probab ly some pulmonary interstitial fibrosis. Mild heart failure not entirely excluded.
[2022-09-28] MEDS ORDERED: GABAPENTIN 400 MG CAP PO STA (18:17)
[2022-09-28] MEDS ORDERED: FUROSEMIDE 10 MG/ML 4 ML VIAL IV STA (18:45)
[2022-09-28] MEDS ORDERED: methylPREDNISolone SOD SUCCIN 125 MG in SODIUM CHLORIDE 0.9% 100 ML IVPB STA (19:00)
[2022-09-28] MEDS ORDERED: diphenhydrAMINE 50 MG/ML 1 ML VIAL IVP STA (19:00)
[2022-09-28] MEDS ORDERED: methylPREDNISolone SOD SUCCI 125 MG/2 ML VIAL IV STA (19:02)
[2022-09-28] MEDS ORDERED: NALOXONE 0.4 MG/ML 1 ML VIAL IV PRN (20:03)
--- NOTE | 2022-09-28 22:48 | CT ---
EXAMINATION TYPE: CT angio chest DATE OF EXAM: 09/28/2022 COMPARISON: None HISTORY: elevated d-dimer CT DLP: 635.3 mGycm Automated exposure control for dose reduction was used. CONTRAST: Performed with IV Contrast, patient injected with 80 mL of Isovue 370. Images obtained from the thoracic inlet to the diaphragm with the IV contrast. There are Three-D post processed images. There is some reticular interstitial infiltrates in the mid and lower lung fuentes. No pleural effusio n. Heart is enlarged. No pericardial effusion. There are sternal wires. Thoracic aorta appears intact. No aneurysm. There is no evidence of filling defect in the pulmonary arteries. The thoracic spine is intact. No co mpression fracture. IMPRESSION: No evidence of pulmonary embolism. Patchy bilateral pulmonary interstitial infiltrates and subsegment al atelectasis. No suspicious pulmonary mass. Borderline cardiomegaly.
[2022-09-29 05:57] LABS: Glucose,Whole Blood 403 mg/dL (70-110)
[2022-09-29 05:57] LABS: Glucose,Whole Blood 443 mg/dL (70-110)
[2022-09-29] MEDS ORDERED: MECLIZINE 12.5 MG TAB PO PRN (06:01)
[2022-09-29] MEDS ORDERED: LORazepam 0.5 MG TAB PO PRN (06:01)
[2022-09-29] MEDS ORDERED: HYDROcodone/APAP 7.5-325MG 1 EACH TAB PO PRN (06:01)
[2022-09-29] MEDS: LEVOTHYROXINE 112 MCG TAB PO SCH (06:22)
[2022-09-29] MEDS: PANTOPRAZOLE 40 MG TABLET PO SCH (06:22)
[2022-09-29] MEDS: carvediloL 6.25 MG TAB PO SCH ×2 (06:22→17:22)
[2022-09-29] MEDS: LEVOTHYROXINE 125 MCG TAB PO SCH (06:22)
[2022-09-29] MEDS: INSULIN ASPART (NovoLOG) 100 UNIT/ML VIAL SQ SCH ×4 (06:23→22:41)
[2022-09-29] MEDS ORDERED: SYMBICORT 80-4.5 MCG INHALER INHALATION SCH (08:00)
[2022-09-29] MEDS: allopurinoL 300 MG TAB PO SCH (09:43)
[2022-09-29] MEDS: MAGNESIUM OXIDE 400 MG TAB PO SCH ×2 (09:43→21:23)
[2022-09-29] MEDS: GABAPENTIN 400 MG CAP PO SCH ×3 (09:44→21:23)
[2022-09-29] MEDS: metFORMIN 500 MG TAB PO SCH ×2 (09:44→22:41)
[2022-09-29] MEDS: AZITHROMYCIN 500 MG in SODIUM CHLORIDE 0.9% 250 ML IVPB SCH (09:44)
[2022-09-29] MEDS: APIXABAN 5 MG TAB PO SCH ×2 (09:45→21:23)
[2022-09-29] MEDS: GLIMEPIRIDE 2 MG TAB PO SCH (09:45)
[2022-09-29 09:48] LABS: HCT 52.3 % (39.0-53.0); HGB 16.7 gm/dL (13.0-17.5); Mean Platelet Volume 8.9; Platelet Count 100 k/uL (150-450); RBC 5.23 m/uL (4.30-5.90); RDW 13.7 % (11.5-15.5); WBC 9.9 k/uL (3.8-10.6)
[2022-09-29 09:51] LABS: ALT 36 U/L (4-49); AST 22 U/L (17-59); African American GFR (CKD) 52 (>60 ml/min/1.73 sqM); Albumin 2.9 g/dL (3.5-5.0); Albumin/Globulin Ratio 1.2; Alkaline Phosphatase 70 U/L (38-126); Anion Gap 8 mmol/L; Blood Urea Nitrogen 50 mg/dL (9-20); Calcium 7.7 mg/dL (8.4-10.2); Carbon Dioxide 18 mmol/L (22-30); Chloride 101 mmol/L (98-107); Globulin 2.4 g/dL; Glucose 400 mg/dL (74-99); Non-African American GFR(CKD) 45 (>60 ml/min/1.73 sqM); Potassium 5.2 mmol/L (3.5-5.1); Sodium 127 mmol/L (137-145); Total Bilirubin 1.1 mg/dL (0.2-1.3); Total Protein 5.3 g/dL (6.3-8.2)
[2022-09-29] MEDS: methylPREDNISolone SOD SUCCI 40 MG/ML 1 ML VIAL IV SCH ×2 (10:51→18:24)
[2022-09-29] MEDS: FUROSEMIDE 10 MG/ML 4 ML VIAL IV SCH ×2 (10:51→21:24)
[2022-09-29 11:44] LABS: Glucose,Whole Blood 388 mg/dL (70-110)
--- NOTE | 2022-09-29 12:11 | P.CNPUL ---
History of Present Illness Consult date: 09/29/22 Requesting physician: Karoline Mg Reason for consult: dyspnea Chief complaint: Shortness of breath, cough, congestion History of present illness: This is a pleasant 76-year-old male patient with a known history of chronic systolic congestive heart failure with an ejection fraction 20-25%, pulmonary hypertension, hypothyroidism, diabetes mellitus, atrial fibrillation, hypertension, hyperlipidemia, gout, anemia. He was recently hospitalized at [facility] for shortness of breath and was told that he has chronic obstructive pulmonary disease and suspected obstructive sleep apnea. He is maintained on Trelegy and albuterol in the outpatient setting. He was just discharged home from the hospital on 09/26/2022. He represented here in the emergency room yesterday with worsening shortness of breath cough and congestion. chest x-ray shows coarse interstitial pulmonary density and minimal pleural fluid. Some underlying interstitial fibrosis not excluded. CT angiogram ruled out pulmonary embolism. There is again noted patchy bilateral pulmonary interstitial infiltrates and subsegmental atelectasis. No suspicious pulmonary mass. Borderline cardiomegaly. EKG reveals atrial fibrillation/flutter. He is anticoagulated with Eliquis. He was initiated on Symbicort, albuterol, IV site Medrol. He is initiated on IV diuretics. Empiric antibiotics in the form of a zithromycin. He is seen today in consultation on the regular medical floor. Currently sitting up in bed. Awake and alert in no acute distress. Naintaining good O2 saturation in the mid 90s on room air. Afebrile. White count 9.9. Hemoglobin 16.7. Platelets 100,000. Sodium 127. Potassium 5.2. Bicarb 18. BUN 50. Creatinine 1.48. Glucose 400. Procalcitonin 0.18. Review of Systems REVIEW OF SYSTEMS: CONSTITUTIONAL: Denies any recent significant weight loss or weight gain. EYES: Denies change in vision. EARS, NOSE, MOUTH, THROAT: Denies headaches, denies sore throat. CARDIOVASCULAR: Denies chest pain, palpitations or syncopal episodes. RESPIRATORY: Positive for shortness of breath, cough, congestion no hemoptysis. GASTROINTESTINAL: Denies change in appetite, denies abdominal pain GENITOURINARY: Denies hematuria, denies infections. MUSKULOSKELETAL: Denies pain, denies swelling. INTEGUMENTARY: Denies rash, denies eczema. NEUROLOGICAL: Denies recent memory loss, no recent seizure activity. PSYCHIATRIC: Denies anxiety, denies depression. HEMATOLOGIC/LYMPHATIC: Denies anemia, denies enlarged lymph nodes. Past Medical History Past Medical History: Atrial Fibrillation, Asthma, Coronary Artery Disease (CAD), COPD, Diabetes Mellitus, Hypertension, Myocardial Infarction ([place]), Pneumonia Additional Past Medical History / Comment(s): left knee cap broken, pancreatitis, /gallstones Last Myocardial Infarction Date:: 2017 History of Any Multi-Drug Resistant Organisms: None Reported Past Surgical History: Cholecystectomy, Coronary Bypass/CABG, Heart Catheterization With Stent, Hernia Repair, Orthopedic Surgery Additional Past Surgical History / Comment(s): lt knee replacement(total of 4 sx), colonoscopy, Left knee cap removal with antibiotic spacers placed, Past Anesthesia/Blood Transfusion Reactions: No Reported Reaction Date of Last Stent Placement:: 10/2015 Past Psychological History: No Psychological Hx Reported Additional Psychological History / Comment(s): Pt resides with his spouse. He uses a walker to ambulate. Smoking Status: Former smoker Past Alcohol Use History: Occasional Additional Past Alcohol Use History / Comment(s): Pt started smoking as teen and quit 1983 smoked 2 ppd. Pt usually has one drink a night. Past Drug Use History: None Reported - Past Family History Father Family Medical History: Diabetes Mellitus Mother Family Medical History: CVA/TIA, Hypertension Medications and Allergies Home Medications Medication Instructions Recorded Confirmed Type allopurinoL [Zyloprim] 300 mg PO DAILY 08/07/17 09/28/22 History Gabapentin 1,200 mg PO TID 10/02/18 09/28/22 History Levothyroxine Sodium [Synthroid] 112 mcg PO DAILY 10/02/18 09/28/22 History Levothyroxine Sodium [Synthroid] 125 mcg PO DAILY 10/02/18 09/28/22 History Nitroglycerin Sl Tabs [Nitrostat] 0.4 mg SL Q5M PRN 10/02/18 09/28/22 History carvediloL [Coreg] 6.25 mg PO BID-W/MEALS 03/17/21 09/28/22 History Atorvastatin [Lipitor] 40 mg PO HS 10/19/21 09/28/22 History Albuterol Nebulized [Ventolin 1.25 mg INHALATION DIRECTED PRN 09/28/22 09/28/22 History Nebulized (Accuneb)] Apixaban [Eliquis] 5 mg PO BID 09/28/22 09/28/22 History Budesonide/Formoterol Fumarate 2 puff INHALATION RT-BID 09/28/22 09/28/22 History [Symbicort 80-4.5 Mcg Inhaler] Cefdinir [Omnicef] 300 mg PO Q12HR 09/28/22 09/28/22 History Glimepiride [Amaryl] 2 mg PO W/BRKFST 09/28/22 09/28/22 History HYDROcodone/APAP 7.5-325MG [[place] 1 tab PO BID PRN 09/28/22 09/28/22 History 7.5-325] Magnesium Oxide [Mag-Ox] 400 mg PO BID 09/28/22 09/28/22 History Meclizine [Antivert] 12.5 mg PO TID PRN 09/28/22 09/28/22 History Omeprazole [PriLOSEC] 40 mg PO DAILY 09/28/22 09/28/22 History metFORMIN HCL [Glucophage] 500 mg PO BID 09/28/22 09/28/22 History predniSONE See Taper PO DAILY 09/28/22 09/28/22 History Allergies Allergy/AdvReac Type Severity Reaction Status Date / Time cephalexin [From Keflex] Allergy Unknown Verified 09/28/22 20:38 clopidogrel [From Plavix] Allergy Rash/Hives Verified 09/28/22 20:38 codeine Allergy Rash/Nausea Verified 09/28/22 20:38 & Vomiting Iodine and Iodide Containing Allergy Rash/Hives Verified 09/28/22 20:38 Produc levofloxacin [From Levaquin] Allergy urticaria/r Verified 09/28/22 20:38 belle shellfish derived [Shellfish] Allergy urticaria/r Verified 09/28/22 20:38 belle lisinopril AdvReac Angiodema Verified 09/28/22 20:38 of tongue oxycodone AdvReac Hallucinati Verified 09/28/22 20:38 ons solifenacin AdvReac Nausea & Verified 09/28/22 20:38 Vomiting Physical Exam Vitals: Vital Signs Temp Pulse Pulse Resp BP BP Pulse Ox 09/29/22 08:00 98.3 F 59 L 17 98/63 95 09/29/22 03:21 96.0 F L 45 L 20 103/66 93 L 09/29/22 01:57 81 15 128/74 97 09/28/22 18:03 97.7 F 90 18 127/77 98 Intake and Output 09/28/22 09/29/22 09/29/22 22:59 06:59 14:59 Output Total 400 Balance -400 Output: Urine 400 Other: Weight 108.862 kg 105.1 kg 105.1 kg GENERAL EXAM: Alert, obese, 76-year-old male, on room air, comfortable in no apparent distress. HEAD: Normocephalic. EYES: Normal reaction of pupils, equal size. NOSE: Clear with pink turbinates. THROAT: No erythema or exudates. NECK: No masses, no JVD. CHEST: No chest wall deformity. LUNGS: Equal air entry with crackles in the bilateral bases, end expiratory wheeze, diminished. CVS: S1 and S2 normal with no audible murmur, regular rhythm. ABDOMEN: No hepatosplenomegaly, normal bowel sounds, no guarding or rigidity. SPINE: No scoliosis or deformity SKIN: No rashes CENTRAL NERVOUS SYSTEM: No focal deficits, tone is normal in all 4 extremities. EXTREMITIES: There is no peripheral edema. No clubbing, no cyanosis. Peripheral pulses are intact. Results - Laboratory Findings CBC and BMP: 09/29/22 07:42 09/29/22 07:42 PT/INR, D-dimer D-Dimer 1.14 mg/L FEU (<0.60) H 09/28/22 16:50 Abnormal lab findings: Abnormal Labs 09/28/22 09/28/22 09/28/22 16:50 16:50 16:50 WBC 16.7 H Plt Count 119 L Neutrophils # 15.7 H Lymphocytes # 0.3 L D-Dimer 1.14 H Sodium 127 L Potassium 5.8 H Carbon Dioxide BUN 39 H Creatinine Glucose 309 H POC Glucose (mg/dL) Calcium 7.5 L Total Bilirubin 1.4 H Total Protein 4.9 L Albumin 2.6 L Procalcitonin 09/29/22 09/29/22 09/29/22 05:51 05:55 07:42 WBC Plt Count Neutrophils # Lymphocytes # D-Dimer Sodium Potassium Carbon Dioxide BUN Creatinine Glucose POC Glucose (mg/dL) 443 H 403 H Calcium Total Bilirubin Total Protein Albumin Procalcitonin 0.18 H 09/29/22 09/29/22 09/29/22 07:42 07:42 11:43 WBC Plt Count 100 L Neutrophils # Lymphocytes # D-Dimer Sodium 127 L Potassium 5.2 H Carbon Dioxide 18 L BUN 50 H Creatinine 1.48 H Glucose 400 H POC Glucose (mg/dL) 388 H Calcium 7.7 L Total Bilirubin Total Protein 5.3 L Albumin 2.9 L Procalcitonin - Diagnostic Findings Chest x-ray: image reviewed CT scan - chest: image reviewed Assessment and Plan Assessment: Acute exacerbation of chronic systolic congestive heart failure Acute exacerbation of chronic obstructive pulmonary disease Recent hospitalization for COPD/CHF Coronary artery disease with previous coronary artery bypass graftingwith a LINDSEY to the LAD, previous PCI to the circumflex, left main and RCA Ischemic cardiomyopathy Atrial fibrillation, anticoagulated with Eliquis Obesity Hypertension Hyperlipidemia Diabetes mellitus History of gout Hypothyroidism History of anemia Plan: The patient was seen and evaluated Chest x-ray, CAT scan, labs and medications reviewed Initiated on Lasix 40 mg IV every 12 hours Accurate I and O Continue Symbicort, albuterol, steroids We will continue to follow and make further recommendations based on his clinical status I have personally seen and examined the patient, performed the documentation and the assessment and plan as written. Number of minutes spent on the visit: 10.
[2022-09-29] MEDS ORDERED: BENZOCAINE/MENTHOL LOZENG 1 EACH LOZENGE MUCOUS MEM PRN (13:27)
--- NOTE | 2022-09-29 14:17 | P.HPIM ---
History of Present Illness H&P Date: 09/29/22 Patrick Banuelos, is a 76-year-old male who presented to [facility] emergency room with a chief complaint of worsening shortness of breath He was evaluated in the emergency room vital examination on presentation revealed a temperature of 97.7 pulse 90 respiration 18 blood pressure 127/77 pulse ox 98% on room air Laboratory data revealed a white blood count of 16.7 hemoglobin 15.9 platelet count 119 sodium 127 potassium 5.8 chloride 103 CO2 24 BUN 13 and creatinine 1.2 Testing in the emergency room revealed chest x-ray done in the emergency room reveals coarse interstitial pulmonary density and minimal pleural fluid and probable pulmonary interstitial fibrosis, CT angiogram of the chest revealed no evidence of pulmonary embolism there was patchy bilateral pulmonary interstitial infiltrates Patient was admitted to medical floor for further evaluation and treatment Past Medical History Past Medical History: Atrial Fibrillation, Asthma, Coronary Artery Disease (CAD), COPD, Diabetes Mellitus, Hypertension, Myocardial Infarction ([place]), Pneumonia Additional Past Medical History / Comment(s): left knee cap broken, pancreatitis, /gallstones Last Myocardial Infarction Date:: 2017 History of Any Multi-Drug Resistant Organisms: None Reported Past Surgical History: Cholecystectomy, Coronary Bypass/CABG, Heart Catheterization With Stent, Hernia Repair, Orthopedic Surgery Additional Past Surgical History / Comment(s): lt knee replacement(total of 4 sx), colonoscopy, Left knee cap removal with antibiotic spacers placed, Past Anesthesia/Blood Transfusion Reactions: No Reported Reaction Date of Last Stent Placement:: 10/2015 Past Psychological History: No Psychological Hx Reported Additional Psychological History / Comment(s): Pt resides with his spouse. He uses a walker to ambulate. Smoking Status: Former smoker Past Alcohol Use History: Occasional Additional Past Alcohol Use History / Comment(s): Pt started smoking as teen and quit 1983 smoked 2 ppd. Pt usually has one drink a night. Past Drug Use History: None Reported - Past Family History Father Family Medical History: Diabetes Mellitus Mother Family Medical History: CVA/TIA, Hypertension Medications and Allergies Home Medications Medication Instructions Recorded Confirmed Type allopurinoL [Zyloprim] 300 mg PO DAILY 08/07/17 09/28/22 History Gabapentin 1,200 mg PO TID 10/02/18 09/28/22 History Levothyroxine Sodium [Synthroid] 112 mcg PO DAILY 10/02/18 09/28/22 History Levothyroxine Sodium [Synthroid] 125 mcg PO DAILY 10/02/18 09/28/22 History Nitroglycerin Sl Tabs [Nitrostat] 0.4 mg SL Q5M PRN 10/02/18 09/28/22 History carvediloL [Coreg] 6.25 mg PO BID-W/MEALS 03/17/21 09/28/22 History Atorvastatin [Lipitor] 40 mg PO HS 10/19/21 09/28/22 History Albuterol Nebulized [Ventolin 1.25 mg INHALATION DIRECTED PRN 09/28/22 09/28/22 History Nebulized (Accuneb)] Apixaban [Eliquis] 5 mg PO BID 09/28/22 09/28/22 History Budesonide/Formoterol Fumarate 2 puff INHALATION RT-BID 09/28/22 09/28/22 History [Symbicort 80-4.5 Mcg Inhaler] Cefdinir [Omnicef] 300 mg PO Q12HR 09/28/22 09/28/22 History Glimepiride [Amaryl] 2 mg PO W/BRKFST 09/28/22 09/28/22 History HYDROcodone/APAP 7.5-325MG [[place] 1 tab PO BID PRN 09/28/22 09/28/22 History 7.5-325] Magnesium Oxide [Mag-Ox] 400 mg PO BID 09/28/22 09/28/22 History Meclizine [Antivert] 12.5 mg PO TID PRN 09/28/22 09/28/22 History Omeprazole [PriLOSEC] 40 mg PO DAILY 09/28/22 09/28/22 History metFORMIN HCL [Glucophage] 500 mg PO BID 09/28/22 09/28/22 History predniSONE See Taper PO DAILY 09/28/22 09/28/22 History Allergies Allergy/AdvReac Type Severity Reaction Status Date / Time cephalexin [From Keflex] Allergy Unknown Verified 09/28/22 20:38 clopidogrel [From Plavix] Allergy Rash/Hives Verified 09/28/22 20:38 codeine Allergy Rash/Nausea Verified 09/28/22 20:38 & Vomiting Iodine and Iodide Containing Allergy Rash/Hives Verified 09/28/22 20:38 Produc levofloxacin [From Levaquin] Allergy urticaria/r Verified 09/28/22 20:38 belle shellfish derived [Shellfish] Allergy urticaria/r Verified 09/28/22 20:38 belle lisinopril AdvReac Angiodema Verified 09/28/22 20:38 of tongue oxycodone AdvReac Hallucinati Verified 09/28/22 20:38 ons solifenacin AdvReac Nausea & Verified 09/28/22 20:38 Vomiting Physical Exam Vitals: Vital Signs Temp Pulse Pulse Resp BP BP Pulse Ox 09/29/22 03:21 96.0 F L 45 L 20 103/66 93 L 09/29/22 01:57 81 15 128/74 97 09/28/22 18:03 97.7 F 90 18 127/77 98 Intake and Output 09/28/22 09/29/22 09/29/22 22:59 06:59 14:59 Output Total 400 Balance -400 Output: Urine 400 Other: Weight 108.862 kg 105.1 kg In general patient is alert and oriented x 3 in no distress HEENT head normocephalic and atraumatic Neck is supple no JVD no goiter no lymphadenopathy no carotid bruit Chest examination reveals few scattered rhonchi in both lung fuentes no wheezing. Cardiac exam reveals regular heart sounds S1 and S2 no gallops no murmurs Abdomen is soft nontender no organomegaly with normal bowel sounds Extremity exam reveals no edema no cyanosis or clubbing Neurological examination reveals no gross focal deficits. Results CBC & Chem 7: 09/29/22 07:42 09/29/22 07:42 Labs: Abnormal Lab Results - Last 24 Hours (Table) 09/28/22 09/28/22 09/28/22 Range/Units 16:50 16:50 16:50 WBC 16.7 H (3.8-10.6) k/uL Plt Count 119 L (150-450) k/uL Neutrophils # 15.7 H (1.3-7.7) k/uL Lymphocytes # 0.3 L (1.0-4.8) k/uL D-Dimer 1.14 H (<0.60) mg/L FEU Sodium 127 L (137-145) mmol/L Potassium 5.8 H (3.5-5.1) mmol/L BUN 39 H (9-20) mg/dL Glucose 309 H (74-99) mg/dL POC Glucose (mg/dL) (70-110) mg/dL Calcium 7.5 L (8.4-10.2) mg/dL Total Bilirubin 1.4 H (0.2-1.3) mg/dL Total Protein 4.9 L (6.3-8.2) g/dL Albumin 2.6 L (3.5-5.0) g/dL 09/29/22 09/29/22 Range/Units 05:51 05:55 WBC (3.8-10.6) k/uL Plt Count (150-450) k/uL Neutrophils # (1.3-7.7) k/uL Lymphocytes # (1.0-4.8) k/uL D-Dimer (<0.60) mg/L FEU Sodium (137-145) mmol/L Potassium (3.5-5.1) mmol/L BUN (9-20) mg/dL Glucose (74-99) mg/dL POC Glucose (mg/dL) 443 H 403 H (70-110) mg/dL Calcium (8.4-10.2) mg/dL Total Bilirubin (0.2-1.3) mg/dL Total Protein (6.3-8.2) g/dL Albumin (3.5-5.0) g/dL Assessment and Plan Plan: Acute exacerbation of chronic systolic congestive heart failure, with known history of ischemic cardiomyopathy. Acute exacerbation of chronic obstructive pulmonary disease Chest x-ray suspicious for pneumonia patient was started on IV Zithromax he has multiple antibiotic ALLERGIES Coronary artery disease with previous coronary artery bypass graft surgery Atrial fibrillation, maintained on Eliquis Eliquis Underlying history of Diabetes mellitus Underlying history of hypertension Underlying history of hyperlipidemia Underlying history of hypothyroidism Underlying history of gout At this time patient is admitted to medical floor Home medications reviewed and reordered He was started on IV antibiotics He was started on IV Lasix Pulmonary and cardiology consultation requested For DVT prophylaxis, patient is on Ellik was
[2022-09-29] MEDS: NYSTATIN 100,000 UNIT/ML SUSP 500,000 UNIT/5 ML CUP PO SCH ×3 (14:26→21:24)
[2022-09-29 16:25] LABS: Glucose,Whole Blood 413 mg/dL (70-110)
[2022-09-29] MEDS: ALBUTEROL NEBULIZED 2.5 MG/3 ML INHALATION PRN (16:28)
[2022-09-29] MEDS ORDERED: DIPHENOX-ATROP 2.5-0.025 MG 1 EACH TAB PO PRN (20:38)
[2022-09-29] MEDS ORDERED: FUROSEMIDE 10 MG/ML 4 ML VIAL IV SCH (21:00)
[2022-09-29 21:22] LABS: Glucose,Whole Blood 262 mg/dL (70-110)
[2022-09-29] MEDS: ATORVASTATIN 40 MG TAB PO SCH (21:23)
[2022-09-29] MEDS: SYMBICORT 160-4.5 MCG INHALER INHALATION SCH (21:56)
[2022-09-30] MEDS: methylPREDNISolone SOD SUCCI 40 MG/ML 1 ML VIAL IV SCH ×3 (00:07→17:20)
--- NOTE | 2022-09-30 06:11 | CONS ---
CONSULTATION Cardiology Consultation CHIEF COMPLAINT: Shortness of breath. This is a 76-year-old gentleman with history of coronary artery disease, ischemic cardiomyopathy with severe LV systolic dysfunction, pulmonary hypertension, atrial fibrillation, hypertension, dyslipidemia, was recently admitted to [facility], discharged home on 09/26/2022. Comes back into hospital with worsening shortness of breath. He had a CT angiogram that was negative for pulmonary embolism. Has bilateral pulmonary infiltrates and atelectasis. EKG shows atrial flutter with underlying right bundle branch block. BNP is elevated. D-dimer was high, but the CT scan is negative for pulmonary embolism. His clinical presentation seems to be due to a combination of COPD and CHF exacerbations. PAST MEDICAL HISTORY: Significant for coronary artery disease, status post CABG; ischemic cardiomyopathy; persistent atrial fibrillation, flutter; hypertension; dyslipidemia; diabetes. MEDICATIONS: Include: 1. Metformin. 2. Coreg. 3. Zyloprim. 4. Prilosec. 5. Antivert. 6. Synthroid. 7. [place]. 8. Amaryl. 9. Lipitor. 10.Eliquis. 11.Nebulizers. ALLERGIES: As charted. FAMILY HISTORY: Negative for premature coronary artery disease. SOCIAL HISTORY: Negative for smoking, EtOH abuse, or drug abuse. REVIEW OF SYSTEMS: review of systems has been performed. Pertinent as documented. PHYSICAL EXAMINATION: GENERAL: Comfortable at rest. VITAL SIGNS: Stable. CHEST: Reveals good air entry bilaterally. HEART: Reveals first and second heart sounds. No gallop. No murmur. ABDOMEN: Soft. EXTREMITIES: Did not reveal any edema. Peripheral pulses are felt. ASSESSMENT: 1. Acute exacerbation of chronic systolic heart failure. 2. Permanent atrial fibrillation. 3. Coronary artery disease, status post CABG. PLAN: We will treat the patient with Eliquis, Lipitor, IV Lasix, Coreg, and continue rest of the medications. MMODL / IJN: [id number] /
[2022-09-30 06:28] LABS: Glucose,Whole Blood 309 mg/dL (70-110)
[2022-09-30] MEDS: carvediloL 6.25 MG TAB PO SCH ×2 (06:32→17:20)
[2022-09-30] MEDS: INSULIN ASPART (NovoLOG) 100 UNIT/ML VIAL SQ SCH ×6 (06:33→22:09)
[2022-09-30] MEDS: GLIMEPIRIDE 2 MG TAB PO SCH (06:33)
[2022-09-30] MEDS: LEVOTHYROXINE 112 MCG TAB PO SCH (06:33)
[2022-09-30] MEDS: PANTOPRAZOLE 40 MG TABLET PO SCH (06:33)
[2022-09-30] MEDS: LEVOTHYROXINE 125 MCG TAB PO SCH (06:33)
[2022-09-30] MEDS: SYMBICORT 160-4.5 MCG INHALER INHALATION SCH ×2 (07:21→21:21)
[2022-09-30] MEDS: FUROSEMIDE 10 MG/ML 4 ML VIAL IV SCH (08:36)
[2022-09-30] MEDS: APIXABAN 5 MG TAB PO SCH ×2 (08:36→22:09)
[2022-09-30] MEDS: GABAPENTIN 400 MG CAP PO SCH ×3 (08:37→22:10)
[2022-09-30] MEDS: MAGNESIUM OXIDE 400 MG TAB PO SCH ×2 (08:37→22:09)
[2022-09-30] MEDS: AZITHROMYCIN 500 MG in SODIUM CHLORIDE 0.9% 250 ML IVPB SCH (08:37)
[2022-09-30] MEDS: NYSTATIN 100,000 UNIT/ML SUSP 500,000 UNIT/5 ML CUP PO SCH ×4 (08:37→22:10)
[2022-09-30] MEDS: metFORMIN 500 MG TAB PO SCH (08:37)
[2022-09-30] MEDS: allopurinoL 300 MG TAB PO SCH (08:37)
[2022-09-30 10:31] LABS: Basophils # (A) 0.03 X 10*3/uL (0.00-0.10); Basophils % (A) 0.2 %; Eosinophils # (A) 0.01 X 10*3/uL (0.04-0.35); Eosinophils % (A) 0.1 %; HCT 46.8 % (39.6-50.0); HGB 15.8 g/dL (13.0-17.0); Immature Grans, Automated 0.8 %; Lymphocytes # (A) 0.55 X 10*3/uL (0.90-5.00); MCHC 33.8 g/dL (32.0-37.0); MCV 91.9 fL (80.0-97.0); Mean Platelet Volume 10.8 fL (9.5-12.2); Monocytes # (A) 0.11 X 10*3/uL (0.20-1.00); Monocytes % (A) 0.6 %; NRBC Per 100 WBC 0 /100 WBCS (0.0-0.0); Neutrophils # (A) 17.26 X 10*3/uL (1.80-7.70); Neutrophils % (A) 95.3 %; Platelet Count 129 X 10*3/uL (140-440); RBC 5.09 X 10*6/uL (4.40-5.60); RDW 13.4 % (11.5-14.5)
[2022-09-30 11:08] LABS: African American GFR (CKD) 36.4 (60.0-200.0); Albumin 2.9 g/dL (3.8-4.9); Albumin/Globulin Ratio 1.48 (1.60-3.17); Anion Gap 13.5 mmol/L (10.00-18.00); BUN/Creat Ratio 30.51 Ratio (12.00-20.00); Blood Urea Nitrogen 60.4 mg/dL (9.0-27.0); Calcium 8.1 mg/dL (8.7-10.3); Carbon Dioxide 20.4 mmol/L (20.0-27.5); Non-African American GFR(CKD) 31.4 (60.0-200.0); Potassium 5.5 mmol/L (3.5-5.5); Total Bilirubin 0.6 mg/dL (0.30-1.20); Total Protein 4.9 g/dL (6.2-8.2)
--- NOTE | 2022-09-30 11:17 | P.PN ---
Subjective Progress Note Date: 09/30/22 Patrick Banuelos, is a 76-year-old male who presented to [facility] emergency room with a chief complaint of worsening shortness of breath He was evaluated in the emergency room vital examination on presentation revealed a temperature of 97.7 pulse 90 respiration 18 blood pressure 127/77 pu lse ox 98% on room air Laboratory data revealed a white blood count of 16.7 hemoglobin 15.9 platelet count 119 sodium 127 potassium 5.8 chloride 103 CO2 24 BUN 13 and creatinine 1.2 Testing in the emergency room revealed chest x-ray done in the emergency room reveals coarse interstitial pulmonary density and minimal pleural fluid and probable pulmonary interstitial fibrosis, CT angiogram of the chest revealed no evidence of pulmonary embolism there was patchy bilateral pulmonary interstitial infiltrates Patient was admitted to medical floor for further evaluation and treatment On 09/30/2022 patient is alert and oriented 3. Patient reports some improvement with shortness of breath. Patient remains on IV Lasix and IV steroids. Sodium also low at 126 nephrology services have been consulted. Patient denies chest pain. Patient denies nausea vomiting or diarrhea. Patient denies any urinary burning or frequency Objective - Vital Signs Vital signs: Vital Signs Temp 97.5 F L 09/30/22 02:24 Pulse 85 09/30/22 02:24 Resp 18 09/30/22 08:35 BP 90/51 09/30/22 02:24 Pulse Ox 90 L 09/30/22 02:24 FiO2 Intake & Output 09/29/22 09/30/22 09/30/22 18:59 06:59 18:59 Intake Total 500 Output Total 2099 1999 Balance -2099 -1499 Weight 105.1 kg 108.5 kg Intake: Tube Feeding 500 Output: Urine 2099 1999 Other: Voiding Method Urinal Urinal Urinal # Bowel Movements 1 - Exam In general patient is alert and oriented x 3 in no distress HEENT head normocephalic and atraumatic Neck is supple no JVD no goiter no lymphadenopathy no carotid bruit Chest examination reveals few scattered rhonchi in both lung fuentes no wheezing. Cardiac exam reveals regular heart sounds S1 and S2 no gallops no murmurs Abdomen is soft nontender no organomegaly with normal bowel sounds Extremity exam reveals no edema no cyanosis or clubbing Neurological examination reveals no gross focal deficits. - Labs CBC & Chem 7: 09/30/22 07:57 09/30/22 07:57 Labs: Abnormal Lab Results - Last 24 Hours (Table) 09/29/22 09/29/22 09/29/22 Range/Units 07:42 11:43 16:23 WBC (4.50-10.00) X 10*3/uL Plt Count (140-440) X 10*3/uL Immature Gran # (0.00-0.04) X 10*3/uL Neutrophils # (1.80-7.70) X 10*3/uL Lymphocytes # (0.90-5.00) X 10*3/uL Monocytes # (0.20-1.00) X 10*3/uL Eosinophils # (0.04-0.35) X 10*3/uL Sodium (135-145) mmol/L Chloride (96-109) mmol/L BUN (9.0-27.0) mg/dL Creatinine (0.6-1.5) mg/dL Est GFR (CKD-EPI)AfAm (60.0-200.0) Est GFR (CKD-EPI)NonAf (60.0-200.0) BUN/Creatinine Ratio (12.00-20.00) Ratio Glucose (70-110) mg/dL POC Glucose (mg/dL) 388 H 413 H (70-110) mg/dL Calcium (8.7-10.3) mg/dL Total Protein (6.2-8.2) g/dL Albumin (3.8-4.9) g/dL Albumin/Globulin Ratio (1.60-3.17) g/dL Procalcitonin 0.18 H (0.02-0.09) ng/mL 09/29/22 09/30/22 09/30/22 Range/Units 21:21 06:27 07:57 WBC 18.10 H (4.50-10.00) X 10*3/uL Plt Count 129 L (140-440) X 10*3/uL Immature Gran # 0.14 H (0.00-0.04) X 10*3/uL Neutrophils # 17.26 H (1.80-7.70) X 10*3/uL Lymphocytes # 0.55 L (0.90-5.00) X 10*3/uL Monocytes # 0.11 L (0.20-1.00) X 10*3/uL Eosinophils # 0.01 L (0.04-0.35) X 10*3/uL Sodium (135-145) mmol/L Chloride (96-109) mmol/L BUN (9.0-27.0) mg/dL Creatinine (0.6-1.5) mg/dL Est GFR (CKD-EPI)AfAm (60.0-200.0) Est GFR (CKD-EPI)NonAf (60.0-200.0) BUN/Creatinine Ratio (12.00-20.00) Ratio Glucose (70-110) mg/dL POC Glucose (mg/dL) 262 H 309 H (70-110) mg/dL Calcium (8.7-10.3) mg/dL Total Protein (6.2-8.2) g/dL Albumin (3.8-4.9) g/dL Albumin/Globulin Ratio (1.60-3.17) g/dL Procalcitonin (0.02-0.09) ng/mL 09/30/22 Range/Units 07:57 WBC (4.50-10.00) X 10*3/uL Plt Count (140-440) X 10*3/uL Immature Gran # (0.00-0.04) X 10*3/uL Neutrophils # (1.80-7.70) X 10*3/uL Lymphocytes # (0.90-5.00) X 10*3/uL Monocytes # (0.20-1.00) X 10*3/uL Eosinophils # (0.04-0.35) X 10*3/uL Sodium 126 L (135-145) mmol/L Chloride 92 L (96-109) mmol/L BUN 60.4 H (9.0-27.0) mg/dL Creatinine 2.0 H (0.6-1.5) mg/dL Est GFR (CKD-EPI)AfAm 36.4 L (60.0-200.0) Est GFR (CKD-EPI)NonAf 31.4 L (60.0-200.0) BUN/Creatinine Ratio 30.51 H (12.00-20.00) Ratio Glucose 332 H (70-110) mg/dL POC Glucose (mg/dL) (70-110) mg/dL Calcium 8.1 L (8.7-10.3) mg/dL Total Protein 4.9 L (6.2-8.2) g/dL Albumin 2.9 L (3.8-4.9) g/dL Albumin/Globulin Ratio 1.48 L (1.60-3.17) g/dL Procalcitonin (0.02-0.09) ng/mL Assessment and Plan Assessment: Acute exacerbation of chronic systolic congestive heart failure, with known history of ischemic cardiomyopathy. Acute exacerbation of chronic obstructive pulmonary disease Chest x-ray suspicious for pneumonia patient was started on IV Zithromax he has multiple antibiotic ALLERGIES Coronary artery disease with previous coronary artery bypass graft surgery Atrial fibrillation, maintained on Eliquis Underlying history of Diabetes mellitus Underlying history of hypertension Underlying history of hyperlipidemia Underlying history of hypothyroidism Underlying history of gout Hyponatremia sodium low at 126 nephrology services have been consulted At this time patient is admitted to medical floor Home medications reviewed and reordered He was started on IV antibiotics He was started on IV Lasix Pulmonary and cardiology consultation requested For DVT prophylaxis, patient is on Eliquis
[2022-09-30] MEDS: ALBUTEROL NEBULIZED 2.5 MG/3 ML INHALATION PRN (11:59)
[2022-09-30 12:02] LABS: Glucose,Whole Blood 431 mg/dL (70-110)
--- NOTE | 2022-09-30 14:17 | P.NPCON ---
History of Present Illness - Reason for Consult acute renal failure - History of Present Illness Patient is a 77-year-old male with history of type 2 diabetes, hypertension, chronic systolic CHF with ejection fraction 20-25%. Patient is admitted to the hospital with complaints of increased shortness of breath. He has underlying COPD as well. On admission chest x-ray showed coarse interstitial infiltrates. Patient also had a CT angiogram performed which was negative for pulmonary embolism. Patient appears to have underlying CK D with baseline creatinine 1-1.2 mg/dL. Blood pressure has been low with systolic in the 90s No NSAIDs or KLEVER inhibitor as noted Currently off of antihypertensive medications. Currently being diuresed with Lasix 40 mg IV every 12 hours. Patient is voiding on his own. Serum creatinine was 1.2 on admission and increased to 2.0 today. Sodium is at 126 from 127 on initial admission. Review of Systems As per HPI. Past Medical History Past Medical History: Atrial Fibrillation, Asthma, Coronary Artery Disease (CAD), COPD, Diabetes Mellitus, Hypertension, Myocardial Infarction (NE), Pneumonia Additional Past Medical History / Comment(s): left knee cap broken, pancreatitis, /gallstones Last Myocardial Infarction Date:: 2017 History of Any Multi-Drug Resistant Organisms: None Reported Past Surgical History: Cholecystectomy, Coronary Bypass/CABG, Heart Catheterization With Stent, Hernia Repair, Orthopedic Surgery Additional Past Surgical History / Comment(s): lt knee replacement(total of 4 sx), colonoscopy, Left knee cap removal with antibiotic spacers placed, Past Anesthesia/Blood Transfusion Reactions: No Reported Reaction Date of Last Stent Placement:: 10/2015 Past Psychological History: No Psychological Hx Reported Additional Psychological History / Comment(s): Pt resides with his spouse. He uses a walker to ambulate. Smoking Status: Former smoker Past Alcohol Use History: Occasional Additional Past Alcohol Use History / Comment(s): Pt started smoking as teen and quit 1983 smoked 2 ppd. Pt usually has one drink a night. Past Drug Use History: None Reported - Past Family History Father Family Medical History: Diabetes Mellitus Mother Family Medical History: CVA/TIA, Hypertension Medications and Allergies Home Medications Medication Instructions Recorded Confirmed Type allopurinoL [Zyloprim] 300 mg PO DAILY 08/07/17 09/28/22 History Gabapentin 1,200 mg PO TID 10/02/18 09/28/22 History Levothyroxine Sodium [Synthroid] 112 mcg PO DAILY 10/02/18 09/28/22 History Levothyroxine Sodium [Synthroid] 125 mcg PO DAILY 10/02/18 09/28/22 History Nitroglycerin Sl Tabs [Nitrostat] 0.4 mg SL Q5M PRN 10/02/18 09/28/22 History carvediloL [Coreg] 6.25 mg PO BID-W/MEALS 03/17/21 09/28/22 History Atorvastatin [Lipitor] 40 mg PO HS 10/19/21 09/28/22 History Albuterol Nebulized [Ventolin 1.25 mg INHALATION DIRECTED PRN 09/28/22 09/28/22 History Nebulized (Accuneb)] Apixaban [Eliquis] 5 mg PO BID 09/28/22 09/28/22 History Budesonide/Formoterol Fumarate 2 puff INHALATION RT-BID 09/28/22 09/28/22 Hist ory [Symbicort 80-4.5 Mcg Inhaler] Cefdinir [Omnicef] 300 mg PO Q12HR 09/28/22 09/28/22 History Glimepiride [Amaryl] 2 mg PO W/BRKFST 09/28/22 09/28/22 History HYDROcodone/APAP 7.5-325MG [[place] 1 tab PO BID PRN 09/28/22 09/28/22 History 7.5-325] Magnesium Oxide [Mag-Ox] 400 mg PO BID 09/28/22 09/28/22 History Meclizine [Antivert] 12.5 mg PO TID PRN 09/28/22 09/28/22 History Omeprazole [PriLOSEC] 40 mg PO DAILY 09/28/22 09/28/22 History metFORMIN HCL [Glucophage] 500 mg PO BID 09/28/22 09/28/22 History predniSONE See Taper PO DAILY 09/28/22 09/28/22 History Allergies Allergy/AdvReac Type Severity Reaction Status Date / Time cephalexin [From Keflex] Allergy Unknown Verified 09/28/22 20:38 clopidogrel [From Plavix] Allergy Rash/Hives Verified 09/28/22 20:38 codeine Allergy Rash/Nausea Verified 09/28/22 20:38 & Vomiting Iodine and Iodide Containing Allergy Rash/Hives Verified 09/28/22 20:38 Produc levofloxacin [From Levaquin] Allergy urticaria/r Verified 09/28/22 20:38 belle shellfish derived [Shellfish] Allergy urticaria/r Verified 09/28/22 20:38 belle lisinopril AdvReac Angiodema Verified 09/28/22 20:38 of tongue oxycodone AdvReac Hallucinati Verified 09/28/22 20:38 ons solifenacin AdvReac Nausea & Verified 09/28/22 20:38 Vomiting Physical Exam Vitals: Vital Signs Temp Pulse Pulse Resp BP Pulse Ox 09/30/22 12:12 82 09/30/22 11:59 80 09/30/22 08:35 18 09/30/22 08:00 98.0 F 52 L 18 91/63 92 L 09/30/22 02:24 97.5 F L 85 17 90/51 90 L 09/29/22 19:35 97.9 F 81 18 102/68 94 L 09/29/22 16:40 88 09/29/22 16:28 87 Intake and Output 09/29/22 09/30/22 09/30/22 22:59 06:59 14:59 Intake Total 500 Output Total 1800 1500 600 Balance -1800 -1000 -600 Intake: Tube Feeding 500 Output: Urine 1800 1500 600 Other: Voiding Method Urinal Urinal # Bowel Movements 1 Weight 108.5 kg Patient is awake, comfortable, no acute distress Examination of the heart S1 and S2 Examination lungs bilateral breath sounds are heard Abdomen is soft nontender Examination of the lower extremities shows no evidence of edema [employer] exam grossly intact. Results - Lab Results Most recent lab results Calcium 8.1 mg/dL (8.7-10.3) L 09/30/22 07:57 Magnesium 1.8 mg/dL (1.6-2.3) 09/28/22 16:50 09/30/22 07:57 09/30/22 07:57 Assessment and Plan Assessment: 1. Acute kidney injury, cardiorenal and associated with hypotension and hypoperfusion. Rule out urine retention 2. Acute hypoxic respiratory failure secondary to CHF exacerbation versus COPD exacerbation. 3. Possible underlying pneumonia maintained on antibiotics 4. Coronary artery disease with history of coronary artery bypass surgery 5. Chronic A. fib maintained on eliquis 6. Chronic kidney disease NKF stage III at baseline creatinine 1-1.2 mg/dL 7. Ischemic cardiomyopathy with ejection fraction 20-25% 8. Hyponatremia, hypovolemic Plan: Add midodrine as blood pressure remains low Check bladder scan and rule out urine retention Add dobutamine if patient does not diurese and renal function continues to worsen. Check random urine sodium DC Coreg and metformin Samsca by mouth 1 next Thank you for the consultation. We will continue to follow the patient with you during his hospitalization
--- NOTE | 2022-09-30 14:34 | P.PN ---
Subjective Progress Note Date: 09/30/22 Patient is seen today resting comfortably in bed in no signs of acute distress. He reports her shortness of breath is greatly improved since starting Lasix. He remains in a flutter with a right bundle branch block. He is on oral anticoagulation. Nephrology has been consult to do to increase in kidney function and low sodium. BUN today was 16 creatinine was up to 2. Sodium remains low at 126. Will decrease Lasix to 40 mg IV daily. Further recommendations of diuretics per nephrology. Objective - Vital Signs Vital signs: Vital Signs Temp 98.0 F 09/30/22 08:00 Pulse 82 09/30/22 12:12 Resp 18 09/30/22 08:35 BP 91/63 09/30/22 08:00 Pulse Ox 92 L 09/30/22 08:00 FiO2 Intake & Output 09/29/22 09/30/22 09/30/22 18:59 06:59 18:59 Intake Total 500 Output Total 2100 1999 600 Balance -2100 -1500 -600 Weight 105.1 kg 108.5 kg Intake: Tube Feeding 500 Output: Urine 2099 1999 600 Other: Voiding Method Urinal Urinal Urinal # Bowel Movements 1 - Exam PHYSICAL EXAM: VITAL SIGNS: Reviewed. GENERAL: Well-developed in no acute distress. HEENT: Head is normocephalic. Pupils are equal, round. Sclerae anicteric. Mucous membranes of the mouth are moist. NECK: Supple. No JVD or thyromegaly RESPIRATORY: Respirations even and unlabored. Lungs diminished to auscultation bilaterally. CARDIO: Regular rate and rhythm. S1 and S2 heard. No murmur or gallops. EXTREMITIES: Normal range of motion. No clubbing or cyanosis. Peripheral pulses intact. mild bilateral lower extremity edema NEURO: Orientated to person, time, mood is appropriate - Labs CBC & Chem 7: 09/30/22 07:57 09/30/22 07:57 Labs: Abnormal Lab Results - Last 24 Hours (Table) 09/29/22 09/29/22 09/30/22 Range/Units 16:23 21:21 06:27 WBC (4.50-10.00) X 10*3/uL Plt Count (140-440) X 10*3/uL Immature Gran # (0.00-0.04) X 10*3/uL Neutrophils # (1.80-7.70) X 10*3/uL Lymphocytes # (0.90-5.00) X 10*3/uL Monocytes # (0.20-1.00) X 10*3/uL Eosinophils # (0.04-0.35) X 10*3/uL Sodium (135-145) mmol/L Chloride (96-109) mmol/L BUN (9.0-27.0) mg/dL Creatinine (0.6-1.5) mg/dL Est GFR (CKD-EPI)AfAm (60.0-200.0) Est GFR (CKD-EPI)NonAf (60.0-200.0) BUN/Creatinine Ratio (12.00-20.00) Ratio Glucose (70-110) mg/dL POC Glucose (mg/dL) 413 H 262 H 309 H (70-110) mg/dL Calcium (8.7-10.3) mg/dL Total Protein (6.2-8.2) g/dL Albumin (3.8-4.9) g/dL Albumin/Globulin Ratio (1.60-3.17) g/dL 09/30/22 09/30/22 09/30/22 Range/Units 07:57 07:57 11:58 WBC 18.10 H (4.50-10.00) X 10*3/uL Plt Count 129 L (140-440) X 10*3/uL Immature Gran # 0.14 H (0.00-0.04) X 10*3/uL Neutrophils # 17.26 H (1.80-7.70) X 10*3/uL Lymphocytes # 0.55 L (0.90-5.00) X 10*3/uL Monocytes # 0.11 L (0.20-1.00) X 10*3/uL Eosinophils # 0.01 L (0.04-0.35) X 10*3/uL Sodium 126 L (135-145) mmol/L Chloride 92 L (96-109) mmol/L BUN 60.4 H (9.0-27.0) mg/dL Creatinine 2.0 H (0.6-1.5) mg/dL Est GFR (CKD-EPI)AfAm 36.4 L (60.0-200.0) Est GFR (CKD-EPI)NonAf 31.4 L (60.0-200.0) BUN/Creatinine Ratio 30.51 H (12.00-20.00) Ratio Glucose 332 H (70-110) mg/dL POC Glucose (mg/dL) 431 H (70-110) mg/dL Calcium 8.1 L (8.7-10.3) mg/dL Total Protein 4.9 L (6.2-8.2) g/dL Albumin 2.9 L (3.8-4.9) g/dL Albumin/Globulin Ratio 1.48 L (1.60-3.17) g/dL Assessment and Plan Assessment: Acute exacerbation of chronic systolic heart failure Permanent atrial fibrillation Coronary artery disease status post CABG Plan: Continue with oral anticoagulation Decrease IV Lasix to 40 mg daily, further recommendations and dosing of diuretics per nephrology Further recommendations based on clinical course The above impression and plan of care have been discussed and directed by the signing physician. Kenzie Rodriguez, nurse practitioner, acting as scribe for signing physician.
--- NOTE | 2022-09-30 15:23 | P.PN ---
Subjective Progress Note Date: 09/30/22 Principal diagnosis: Acute exacerbation of chronic systolic congestive heart failure and acute exacerbation of COPD This is a pleasant 76-year-old male patient with a known history of chronic systolic congestive heart failure with an ejection fraction 20-25%, pulmonary hypertension, hypothyroidism, diabetes mellitus, atrial fibrillation, hypertension, hyperlipidemia, gout, anemia. He was recently hospitalized at [facility] for shortness of breath and was told that he has chronic obstructive pulmonary disease and suspected obstructive sleep apnea. He is maintained on Trelegy and albuterol in the outpatient setting. He was just discharged home from the hospital on 09/26/2022. He represented here in the emergency room yesterday with worsening shortness of breath cough and congestion. chest x-ray shows coarse interstitial pulmonary density and minimal pleural fluid. Some underlying interstitial fibrosis not excluded. CT angiogram ruled out pulmonary embolism. There is again noted patchy bilateral pulmonary interstitial infiltrates and subsegmental atelectasis. No suspicious pulmonary mass. Borderline cardiomegaly. EKG reveals atrial fibrillation/flutter. He is anticoagulated with Eliquis. He was initiated on Symbicort, albuterol, IV site Medrol. He is initiated on IV diuretics. Empiric antibiotics in the form of azithromycin. He is seen today in consultation on the regular medical floor. Currently sitting up in bed. Awake and alert in no acute distress. Naintaining good O2 saturation in the mid 90s on room air. Afebrile. White count 9.9. Hemoglobin 16.7. Platelets 100,000. Sodium 127. Potassium 5.2. Bicarb 18. BUN 50. Creatinine 1.48. Glucose 400. Procalcitonin 0.18. Reevaluated today on 09/30/22, patient is feeling better, breathing easier, hardly any shortness of breath, patient is now on room air. O2 sats is 92%. WBC count is 18.1 hemoglobin is 15.8, electrolytes are abnormal low sodium of 126 potassium is 5.5 blood sugar is abnormal is up to 451, poorly controlled. Patient is being followed by nephrology for his hyperkalemia, I believe his hyponatremia is mostly hypovolemic in nature plus there is a component of pseudohyponatremia because of his elevated blood sugar. Objective - Vital Signs Vital signs: Vital Signs Temp 98.0 F 09/30/22 08:00 Pulse 82 09/30/22 12:12 Resp 18 09/30/22 08:35 BP 91/63 09/30/22 08:00 Pulse Ox 92 L 09/30/22 08:00 FiO2 Intake & Output 09/29/22 09/30/22 09/30/22 18:59 06:59 18:59 Intake Total 500 Output Total 2099 1999 600 Balance -2099 -1500 -600 Weight 105.1 kg 108.5 kg Intake: Tube Feeding 500 Output: Urine 2099 Other: Voiding Method Urinal Urinal Urinal # Bowel Movements 1 - Exam Physical Exam: Revealed a 77-year-old white male pleasant in no distress on room air at present HEENT:[Neck is supple.] [No neck masses.] [No thyromegaly.] [No JVD.] Chest: [Diminished breath sounds at the bases no crackles or rhonchi or wheezes Cardiac Exam: [Normal S1 and S2, no S3 gallop, no murmur.] Abdomen: [Soft, nontender, no megaly, no rebound, no guarding, normal bowel sounds.] Extremities: [No clubbing, no edema, no cyanosis.] Neurological Exam: [No focal neurologic deficit.] Alert oriented 3. Skin: No rashes Psychiatric: Normal mood affect and normal mental status examination. - Labs CBC & Chem 7: 09/30/22 07:57 09/30/22 07:57 Labs: Abnormal Lab Results - Last 24 Hours (Table) 09/29/22 09/29/22 09/30/22 Range/Units 16:23 21:21 06:27 WBC (4.50-10.00) X 10*3/uL Plt Count (140-440) X 10*3/uL Immature Gran # (0.00-0.04) X 10*3/uL Neutrophils # (1.80-7.70) X 10*3/uL Lymphocytes # (0.90-5.00) X 10*3/uL Monocytes # (0.20-1.00) X 10*3/uL Eosinophils # (0.04-0.35) X 10*3/uL Sodium (135-145) mmol/L Chloride (96-109) mmol/L BUN (9.0-27.0) mg/dL Creatinine (0.6-1.5) mg/dL Est GFR (CKD-EPI)AfAm (60.0-200.0) Est GFR (CKD-EPI)NonAf (60.0-200.0) BUN/Creatinine Ratio (12.00-20.00) Ratio Glucose (70-110) mg/dL POC Glucose (mg/dL) 413 H 262 H 309 H (70-110) mg/dL Calcium (8.7-10.3) mg/dL Total Protein (6.2-8.2) g/dL Albumin (3.8-4.9) g/dL Albumin/Globulin Ratio (1.60-3.17) g/dL 09/30/22 09/30/22 09/30/22 Range/Units 07:57 07:57 11:58 WBC 18.10 H (4.50-10.00) X 10*3/uL Plt Count 129 L (140-440) X 10*3/uL Immature Gran # 0.14 H (0.00-0.04) X 10*3/uL Neutrophils # 17.26 H (1.80-7.70) X 10*3/uL Lymphocytes # 0.55 L (0.90-5.00) X 10*3/uL Monocytes # 0.11 L (0.20-1.00) X 10*3/uL Eosinophils # 0.01 L (0.04-0.35) X 10*3/uL Sodium 126 L (135-145) mmol/L Chloride 92 L (96-109) mmol/L BUN 60.4 H (9.0-27.0) mg/dL Creatinine 2.0 H (0.6-1.5) mg/dL Est GFR (CKD-EPI)AfAm 36.4 L (60.0-200.0) Est GFR (CKD-EPI)NonAf 31.4 L (60.0-200.0) BUN/Creatinine Ratio 30.51 H (12.00-20.00) Ratio Glucose 332 H (70-110) mg/dL POC Glucose (mg/dL) 431 H (70-110) mg/dL Calcium 8.1 L (8.7-10.3) mg/dL Total Protein 4.9 L (6.2-8.2) g/dL Albumin 2.9 L (3.8-4.9) g/dL Albumin/Globulin Ratio 1.48 L (1.60-3.17) g/dL Assessment and Plan Assessment: Acute exacerbation of chronic systolic congestive heart failure Acute exacerbation of chronic obstructive pulmonary disease Recent hospitalization for COPD/CHF Coronary artery disease with previous coronary artery bypass graftingwith a LINDSEY to the LAD, previous PCI to the circumflex, left main and RCA Ischemic cardiomyopathy Atrial fibrillation, anticoagulated with Eliquis Obesity Hypertension Hyperlipidemia Diabetes mellitus History of gout Hypothyroidism History of anemia Hyponatremia secondary to hypovolemia and some component of pseudohyponatremia because of elevated blood sugar Recommendation: Continue bronchodilators Continue diuretics High sugar being addressed by admitting physician Not quite ready for discharge planning We'll continue to follow Time with Patient: Less than 30
[2022-09-30 16:59] LABS: Glucose,Whole Blood 395 mg/dL (70-110)
[2022-09-30] MEDS: MIDODRINE 5 MG TAB PO SCH (17:20)
--- NOTE | 2022-09-30 18:13 | US ---
EXAMINATION TYPE: US kidneys/renal and bladder DATE OF EXAM: 09/30/2022 COMPARISON: NONE CLINICAL HISTORY: [email or web address]. EXAM MEASUREMENTS: Right Kidney: 7.9 x 4.8 x 5.1 cm Left Kidney: 9.1 x 4.3 x 3.9 cm Right Kidney: Thin cortex, atrophic in size Left Kidney: Thin cortex Bladder: Non-distended Bilateral Jets seen: No . IMPRESSION: Bladder not well evaluated. No renal mass or obstruction. Renal atrophy.
[2022-09-30 20:22] LABS: Glucose,Whole Blood 303 mg/dL (70-110)
[2022-09-30] MEDS: ATORVASTATIN 40 MG TAB PO SCH (22:09)
[2022-09-30 22:48] LABS: Appearance,Urine Clear (Clear); Bilirubin,Urine Negative (Negative); Blood,Urine Negative (Negative); Color,Urine Light Yellow; Glucose,Urine (UA) Negative (Negative); Ketones,Urine Negative (Negative); Leukocyte Esterase,Urine Negative (Negative); Nitrite,Urine Negative (Negative); Protein,Urine Negative (Negative); Specific Gravity,Urine 1.013 (1.001-1.035); Urobilinogen,Urine <2.0 mg/dL (<2.0)
[2022-10-01] MEDS: methylPREDNISolone SOD SUCCI 40 MG/ML 1 ML VIAL IV SCH ×2 (00:26→08:35)
[2022-10-01 06:11] LABS: Glucose,Whole Blood 290 mg/dL (70-110)
[2022-10-01] MEDS: GLIMEPIRIDE 2 MG TAB PO SCH (06:51)
[2022-10-01] MEDS: LEVOTHYROXINE 125 MCG TAB PO SCH (06:51)
[2022-10-01] MEDS: PANTOPRAZOLE 40 MG TABLET PO SCH (06:51)
[2022-10-01] MEDS: MIDODRINE 5 MG TAB PO SCH ×3 (06:51→17:16)
[2022-10-01] MEDS: carvediloL 6.25 MG TAB PO SCH ×2 (06:51→17:16)
[2022-10-01] MEDS: LEVOTHYROXINE 112 MCG TAB PO SCH (06:51)
[2022-10-01] MEDS: INSULIN ASPART (NovoLOG) 100 UNIT/ML VIAL SQ SCH ×7 (06:52→21:39)
[2022-10-01] MEDS: SYMBICORT 160-4.5 MCG INHALER INHALATION SCH ×2 (07:33→20:55)
[2022-10-01] MEDS: FUROSEMIDE 10 MG/ML 4 ML VIAL IV SCH (08:35)
[2022-10-01] MEDS: MAGNESIUM OXIDE 400 MG TAB PO SCH ×2 (08:36→20:47)
[2022-10-01] MEDS: allopurinoL 300 MG TAB PO SCH (08:36)
[2022-10-01] MEDS: APIXABAN 5 MG TAB PO SCH ×2 (08:36→20:46)
[2022-10-01] MEDS: NYSTATIN 100,000 UNIT/ML SUSP 500,000 UNIT/5 ML CUP PO SCH ×4 (08:36→20:46)
[2022-10-01] MEDS: GABAPENTIN 400 MG CAP PO SCH ×3 (08:36→20:46)
[2022-10-01] MEDS: AZITHROMYCIN 500 MG in SODIUM CHLORIDE 0.9% 250 ML IVPB SCH ×2 (08:36→16:35)
[2022-10-01 10:03] LABS: Basophils % (A) 0 %; Eosinophils % (A) 0 %; HCT 48.5 % (39.0-53.0); HGB 16.3 gm/dL (13.0-17.5); Lymphocytes # (A) 0.5 k/uL (1.0-4.8); Lymphocytes % (A) 3 %; MCH 32.3 pg (25.0-35.0); MCHC 33.6 g/dL (31.0-37.0); MCV 96.3 fL (80.0-100.0); Mean Platelet Volume 9.1; Monocytes # (A) 0.3 k/uL (0-1.0); Monocytes % (A) 2 %; Neutrophils # (A) 17.8 k/uL (1.3-7.7); Neutrophils % (A) 95 %; Platelet Count 137 k/uL (150-450); RBC 5.04 m/uL (4.30-5.90); RDW 13.5 % (11.5-15.5); WBC 18.6 k/uL (3.8-10.6)
[2022-10-01 10:06] LABS: AST 21 U/L (17-59); African American GFR (CKD) 41 (>60 ml/min/1.73 sqM); Albumin/Globulin Ratio 1.3; Alkaline Phosphatase 64 U/L (38-126); Anion Gap 11 mmol/L; Blood Urea Nitrogen 77 mg/dL (9-20); Calcium 7.8 mg/dL (8.4-10.2); Carbon Dioxide 20 mmol/L (22-30); Chloride 94 mmol/L (98-107); Globulin 2.3 g/dL; Glucose 400 mg/dL (74-99); Non-African American GFR(CKD) 35 (>60 ml/min/1.73 sqM); Potassium 5.4 mmol/L (3.5-5.1); Sodium 125 mmol/L (137-145); Total Bilirubin 1.1 mg/dL (0.2-1.3); Total Protein 5.3 g/dL (6.3-8.2)
[2022-10-01 10:18] LABS: ALT 45 U/L (4-49)
[2022-10-01 11:35] LABS: Glucose,Whole Blood 394 mg/dL (70-110)
--- NOTE | 2022-10-01 11:36 | P.PN ---
Subjective Patient is seen in follow-up for acute kidney injury. Creatinine peaked at 2.0 on 09/30/2022 and is 1.8 today. On IV Lasix. Good urine output. Still having cough with green phlegm. Denies chest pain. Blood sugars 400 this morning.. Vital signs are stable. General: Awake. No acute distress. HEENT: Head exam is unremarkable. LUNGS: Breath sounds decreased. HEART: Rate and Rhythm are regular. ABDOMEN: Soft, no distention. EXTREMITITES: No edema. Objective - Vital Signs Vital signs: Vital Signs Temp 97.8 F 10/01/22 08:00 Pulse 65 10/01/22 08:00 Resp 17 10/01/22 08:00 BP 113/79 10/01/22 08:00 Pulse Ox 93 L 10/01/22 08:00 FiO2 Intake & Output 09/30/22 10/01/22 10/01/22 18:59 06:59 18:59 Output Total 1200 1075 Balance -1200 -1075 Weight 107.5 kg Output: Urine 1200 1075 Other: Voiding Method Urinal Urinal # Voids 2 # Bowel Movements 1 - Labs CBC & Chem 7: 10/01/22 09:30 10/01/22 09:30 Labs: Abnormal Lab Results - Last 24 Hours (Table) 09/30/22 09/30/22 09/30/22 Range/Units 11:58 16:57 20:21 WBC (3.8-10.6) k/uL Plt Count (150-450) k/uL Neutrophils # (1.3-7.7) k/uL Lymphocytes # (1.0-4.8) k/uL Sodium (137-145) mmol/L Potassium (3.5-5.1) mmol/L Chloride (98-107) mmol/L Carbon Dioxide (22-30) mmol/L BUN (9-20) mg/dL Creatinine (0.66-1.25) mg/dL Glucose (74-99) mg/dL POC Glucose (mg/dL) 431 H 395 H 303 H (70-110) mg/dL Calcium (8.4-10.2) mg/dL Total Protein (6.3-8.2) g/dL Albumin (3.5-5.0) g/dL 10/01/22 10/01/22 10/01/22 Range/Units 06:10 09:30 09:30 WBC 18.6 H (3.8-10.6) k/uL Plt Count 137 L (150-450) k/uL Neutrophils # 17.8 H (1.3-7.7) k/uL Lymphocytes # 0.5 L (1.0-4.8) k/uL Sodium 125 L (137-145) mmol/L Potassium 5.4 H (3.5-5.1) mmol/L Chloride 94 L (98-107) mmol/L Carbon Dioxide 20 L (22-30) mmol/L BUN 77 H (9-20) mg/dL Creatinine 1.80 H (0.66-1.25) mg/dL Glucose 400 H (74-99) mg/dL POC Glucose (mg/dL) 290 H (70-110) mg/dL Calcium 7.8 L (8.4-10.2) mg/dL Total Protein 5.3 L (6.3-8.2) g/dL Albumin 3.0 L (3.5-5.0) g/dL Microbiology - Last 24 Hours (Table) 10/01/22 07:03 Sputum Culture - Preliminary Sputum Assessment and Plan Plan: Assessment: 1. Acute kidney injury secondary to ATN secondary to cardiorenal syndrome. Also component of contrast-induced acute kidney injury as he received IV contrast on 09/28/2022. Creatinine peaked at 21 09/30/2020 20 is 1.8 today. 2. Acute hypoxic respiratory failure secondary to volume overload and COPD exacerbation/pneumonia. 3. Hypervolemic hyponatremia with component of hypertonicity from hyperglycemia. 4. Hyperkalemia secondary to hyperglycemia. 5. Chronic kidney disease stage III with baseline creatinine 1-1.2. Etiology is nephrosclerosis. UA benign. Renal ultrasound showed atrophic right kidney with no evidence of hydronephrosis. 6. Metabolic acidosis secondary to acute kidney injury. Plan: Maintain IV Lasix - frequency decreased to once daily. Low-salt diet and 1200 mL fluid restriction. Blood sugar control. Repeat labs in the morning. Avoid nephrotoxins. Add oral bicarb. Repeat BMP this evening.
[2022-10-01] MEDS: ALBUTEROL NEBULIZED 2.5 MG/3 ML INHALATION PRN ×2 (11:41→20:55)
[2022-10-01] MEDS: SODIUM BICARBONATE TAB 650 MG TAB PO SCH ×2 (12:47→20:46)
--- NOTE | 2022-10-01 14:44 | P.PN ---
Subjective Progress Note Date: 10/01/22 This is a pleasant 76-year-old male patient with a known history of chronic systolic congestive heart failure with an ejection fraction 20-25%, pulmonary hypertension, hypothyroidism, diabetes mellitus, atrial fibrillation, hypertension, hyperlipidemia, gout, anemia. He was recently hospitalized at [facility] for shortness of breath and was told that he has chronic obstructive pulmonary disease and suspected obstructive sleep apnea. He is maintained on Trelegy and albuterol in the outpatient setting. He was just discharged home from the hospital on 09/26/2022. He represented here in the emergency room yesterday with worsening shortness of breath cough and congestion. chest x-ray shows coarse interstitial pulmonary density and minimal pleural fluid. Some underlying interstitial fibrosis not excluded. CT angiogram ruled out pulmonary embolism. There is again noted patchy bilateral pulmonary interstitial infiltrates and subsegmental atelectasis. No suspicious pulmonary mass. Borderline cardiomegaly. EKG reveals atrial fibrillation/flutter. He is anticoagulated with Eliquis. He was initiated on Symbicort, albuterol, IV site Medrol. He is initiated on IV diuretics. Empiric antibiotics in the form of azithromycin. He is seen today in consultation on the regular medical floor. Currently sitting up in bed. Awake and alert in no acute distress. Naintaining good O2 saturation in the mid 90s on room air. Afebrile. White count 9.9. Hemoglobin 16.7. Platelets 100,000. Sodium 127. Potassium 5.2. Bicarb 18. BUN 50. Creatinine 1.48. Glucose 400. Procalcitonin 0.18. Reevaluated today on 09/30/22, patient is feeling better, breathing easier, hardly any shortness of breath, patient is now on room air. O2 sats is 92%. WBC count is 18.1 hemoglobin is 15.8, electrolytes are abnormal low sodium of 126 potassium is 5.5 blood sugar is abnormal is up to 451, poorly controlled. Patient is being followed by nephrology for his hyperkalemia, I believe his hyponatremia is mostly hypovolemic in nature plus there is a component of pseudohyponatremia because of his elevated blood sugar. The patient is seen today 10/01/2022 in follow-up on the regular medical floor. He sitting up in bed. Awake and alert in no acute distress. Maintaining good O2 saturations in the 90s on room air. Sputum culture is pending. White count 18.6. Hemoglobin 16.3. Sodium 125. Potassium 5.4. BUN 77. Creatinine 1.8. Glucose 400. He is continued on Symbicort and albuterol along with a prednisone taper. Anticoagulated with Eliquis. Remains on IV diuretics. Ultrasound of the bladder did not reveal any renal mass or obstruction. Renal atrophy. He remains in a -3.6 L balance. Objective - Vital Signs Vital signs: Vital Signs Temp 97.8 F 10/01/22 08:00 Pulse 80 10/01/22 11:57 Resp 17 10/01/22 08:00 BP 113/79 10/01/22 08:00 Pulse Ox 93 L 10/01/22 08:00 FiO2 Intake & Output 09/30/22 10/01/22 10/01/22 18:59 06:59 18:59 Output Total 1200 1075 750 Balance -1200 -1075 -750 Weight 107.5 kg Output: Urine 1200 1075 750 Other: Voiding Method Urinal Urinal # Voids 2 # Bowel Movements 1 - Exam GENERAL EXAM: Alert, pleasant 77-year-old male patient, on room air, comfortable in no apparent distress. HEAD: Normocephalic. EYES: Normal reaction of pupils, equal size. NOSE: Clear with pink turbinates. THROAT: No erythema or exudates. NECK: No masses, no JVD. CHEST: No chest wall deformity. LUNGS: Equal air entry with no crackles, wheeze, rhonchi or dullness. CVS: S1 and S2 normal with no audible murmur, regular rhythm. ABDOMEN: No hepatosplenomegaly, normal bowel sounds, no guarding or rigidity. SPINE: No scoliosis or deformity SKIN: No rashes CENTRAL NERVOUS SYSTEM: No focal deficits, tone is normal in all 4 extremities. EXTREMITIES: There is no peripheral edema. No clubbing, no cyanosis. Peripheral pulses are intact. - Labs CBC & Chem 7: 10/01/22 09:30 10/01/22 09:30 Labs: Abnormal Lab Results - Last 24 Hours (Table) 09/30/22 09/30/22 10/01/22 Range/Units 16:57 20:21 06:10 WBC (3.8-10.6) k/uL Plt Count (150-450) k/uL Neutrophils # (1.3-7.7) k/uL Lymphocytes # (1.0-4.8) k/uL Sodium (137-145) mmol/L Potassium (3.5-5.1) mmol/L Chloride (98-107) mmol/L Carbon Dioxide (22-30) mmol/L BUN (9-20) mg/dL Creatinine (0.66-1.25) mg/dL Glucose (74-99) mg/dL POC Glucose (mg/dL) 395 H 303 H 290 H (70-110) mg/dL Calcium (8.4-10.2) mg/dL Total Protein (6.3-8.2) g/dL Albumin (3.5-5.0) g/dL 10/01/22 10/01/22 10/01/22 Range/Units 09:30 09:30 11:34 WBC 18.6 H (3.8-10.6) k/uL Plt Count 137 L (150-450) k/uL Neutrophils # 17.8 H (1.3-7.7) k/uL Lymphocytes # 0.5 L (1.0-4.8) k/uL Sodium 125 L (137-145) mmol/L Potassium 5.4 H (3.5-5.1) mmol/L Chloride 94 L (98-107) mmol/L Carbon Dioxide 20 L (22-30) mmol/L BUN 77 H (9-20) mg/dL Creatinine 1.80 H (0.66-1.25) mg/dL Glucose 400 H (74-99) mg/dL POC Glucose (mg/dL) 394 H (70-110) mg/dL Calcium 7.8 L (8.4-10.2) mg/dL Total Protein 5.3 L (6.3-8.2) g/dL Albumin 3.0 L (3.5-5.0) g/dL Microbiology - Last 24 Hours (Table) 10/01/22 07:03 Gram Stain - Preliminary Sputum Sputum Culture - Preliminary Assessment and Plan Assessment: Acute exacerbation of chronic systolic congestive heart failure Acute exacerbation of chronic obstructive pulmonary disease Recent hospitalization for COPD/CHF Coronary artery disease with previous coronary artery bypass graftingwith a LINDSEY to the LAD, previous PCI to the circumflex, left main and RCA Ischemic cardiomyopathy Atrial fibrillation, anticoagulated with Eliquis Obesity Hypertension Hyperlipidemia Diabetes mellitus History of gout Hypothyroidism History of anemia Plan: The patient was seen and evaluated Labs and medications reviewed Initiated on Lasix 40 mg IV daily Accurate I and O Nephrology is on the case Continue Symbicort, albuterol, steroids We will continue to follow I have personally seen and examined the patient, performed the documentation and the assessment and plan as written. Number of minutes spent on the visit: 10.
--- NOTE | 2022-10-01 16:58 | P.PN ---
Subjective Progress Note Date: 10/01/22 Patrick Banuelos, is a 76-year-old male who presented to [facility] emergency room with a chief complaint of worsening shortness of breath He was evaluated in the emergency room vital examination on presentation revealed a temperature of 97.7 pulse 90 respiration 18 blood pressure 127/77 pu lse ox 98% on room air Laboratory data revealed a white blood count of 16.7 hemoglobin 15.9 platelet count 119 sodium 127 potassium 5.8 chloride 103 CO2 24 BUN 13 and creatinine 1.2 Testing in the emergency room revealed chest x-ray done in the emergency room reveals coarse interstitial pulmonary density and minimal pleural fluid and probable pulmonary interstitial fibrosis, CT angiogram of the chest revealed no evidence of pulmonary embolism there was patchy bilateral pulmonary interstitial infiltrates Patient was admitted to medical floor for further evaluation and treatment. On 09/30/2022 patient is alert and oriented 3. Patient reports some improvement with shortness of breath. Patient remains on IV Lasix and IV steroids. Sodium also low at 126 nephrology services have been consulted. Patient denies chest pain. Patient denies nausea vomiting or diarrhea. Patient denies any urinary burning or frequency On 10/01/2022 patient was seen and examined on the medical floor he is alert and oriented 3 in no apparent distress he is still complaining of shortness of breath with activity otherwise he denies any complaints there is no fever or chills no headache or dizziness no chest pain he has occasional cough no nausea or vomiting no abdominal pain no diarrhea and no urinary symptoms. He is maintained on IV Lasix IV steroids and IV Zithromax pulmonary cardiology and nephrology are following, input reviewed carefully will recheck labs and chest x-ray in a.m. Objective - Vital Signs Vital signs: Vital Signs Temp 97.8 F 10/01/22 08:00 Pulse 65 10/01/22 08:00 Resp 17 10/01/22 08:00 BP 113/79 10/01/22 08:00 Pulse Ox 93 L 10/01/22 08:00 FiO2 Intake & Output 09/30/22 10/01/22 10/01/22 18:59 06:59 18:59 Output Total 1200 1075 Balance -1200 -1075 Weight 107.5 kg Output: Urine 1200 1075 Other: Voiding Method Urinal # Voids 2 # Bowel Movements 1 - Exam In general patient is alert and oriented x 3 in no distress HEENT head normocephalic and atraumatic Neck is supple no JVD no goiter no lymphadenopathy no carotid bruit Chest examination reveals few scattered rhonchi in both lung fuentes no wheezing. Cardiac exam reveals regular heart sounds S1 and S2 no gallops no murmurs Abdomen is soft nontender no organomegaly with normal bowel sounds Extremity exam reveals no edema no cyanosis or clubbing Neurological examination reveals no gross focal deficits. - Labs CBC & Chem 7: 10/01/22 09:30 10/01/22 09:30 Labs: Abnormal Lab Results - Last 24 Hours (Table) 09/30/22 09/30/22 09/30/22 Range/Units 07:57 07:57 11:58 WBC 18.10 H (4.50-10.00) X 10*3/uL Plt Count 129 L (140-440) X 10*3/uL Immature Gran # 0.14 H (0.00-0.04) X 10*3/uL Neutrophils # 17.26 H (1.80-7.70) X 10*3/uL Lymphocytes # 0.55 L (0.90-5.00) X 10*3/uL Monocytes # 0.11 L (0.20-1.00) X 10*3/uL Eosinophils # 0.01 L (0.04-0.35) X 10*3/uL Sodium 126 L (135-145) mmol/L Chloride 92 L (96-109) mmol/L BUN 60.4 H (9.0-27.0) mg/dL Creatinine 2.0 H (0.6-1.5) mg/dL Est GFR (CKD-EPI)AfAm 36.4 L (60.0-200.0) Est GFR (CKD-EPI)NonAf 31.4 L (60.0-200.0) BUN/Creatinine Ratio 30.51 H (12.00-20.00) Ratio Glucose 332 H (70-110) mg/dL POC Glucose (mg/dL) 431 H (70-110) mg/dL Calcium 8.1 L (8.7-10.3) mg/dL Total Protein 4.9 L (6.2-8.2) g/dL Albumin 2.9 L (3.8-4.9) g/dL Albumin/Globulin Ratio 1.48 L (1.60-3.17) g/dL 09/30/22 09/30/22 10/01/22 Range/Units 16:57 20:21 06:10 WBC (4.50-10.00) X 10*3/uL Plt Count (140-440) X 10*3/uL Immature Gran # (0.00-0.04) X 10*3/uL Neutrophils # (1.80-7.70) X 10*3/uL Lymphocytes # (0.90-5.00) X 10*3/uL Monocytes # (0.20-1.00) X 10*3/uL Eosinophils # (0.04-0.35) X 10*3/uL Sodium (135-145) mmol/L Chloride (96-109) mmol/L BUN (9.0-27.0) mg/dL Creatinine (0.6-1.5) mg/dL Est GFR (CKD-EPI)AfAm (60.0-200.0) Est GFR (CKD-EPI)NonAf (60.0-200.0) BUN/Creatinine Ratio (12.00-20.00) Ratio Glucose (70-110) mg/dL POC Glucose (mg/dL) 395 H 303 H 290 H (70-110) mg/dL Calcium (8.7-10.3) mg/dL Total Protein (6.2-8.2) g/dL Albumin (3.8-4.9) g/dL Albumin/Globulin Ratio (1.60-3.17) g/dL Assessment and Plan Plan: Acute exacerbation of chronic systolic congestive heart failure, with known history of ischemic cardiomyopathy. Acute exacerbation of chronic obstructive pulmonary disease Chest x-ray suspicious for pneumonia patient was started on IV Zithromax he has multiple antibiotic ALLERGIES Coronary artery disease with previous coronary artery bypass graft surgery Atrial fibrillation, maintained on Eliquis Eliquis Underlying history of Diabetes mellitus Underlying history of hypertension Underlying history of hyperlipidemia Underlying history of hypothyroidism Underlying history of gout At this time patient is admitted to medical floor Home medications reviewed and reordered He was started on IV antibiotics He was started on IV Lasix Pulmonary and cardiology consultation requested For DVT prophylaxis, patient is on Ellik was
[2022-10-01 17:00] LABS: Glucose,Whole Blood 412 mg/dL (70-110)
[2022-10-01 18:58] LABS: African American GFR (CKD) 37 (>60 ml/min/1.73 sqM); Anion Gap 12 mmol/L; Blood Urea Nitrogen 81 mg/dL (9-20); Calcium 7.9 mg/dL (8.4-10.2); Carbon Dioxide 24 mmol/L (22-30); Chloride 91 mmol/L (98-107); Glucose 402 mg/dL (74-99); Non-African American GFR(CKD) 32 (>60 ml/min/1.73 sqM); Potassium 4.6 mmol/L (3.5-5.1); Sodium 127 mmol/L (137-145)
[2022-10-01] MEDS: ATORVASTATIN 40 MG TAB PO SCH (20:46)
[2022-10-01 21:08] LABS: Glucose,Whole Blood 316 mg/dL (70-110)
[2022-10-02 06:05] LABS: Glucose,Whole Blood 276 mg/dL (70-110)
[2022-10-02] MEDS: LEVOTHYROXINE 112 MCG TAB PO SCH (06:27)
[2022-10-02] MEDS: GLIMEPIRIDE 2 MG TAB PO SCH (06:35)
[2022-10-02] MEDS: carvediloL 6.25 MG TAB PO SCH ×2 (06:35→16:48)
[2022-10-02] MEDS: PANTOPRAZOLE 40 MG TABLET PO SCH (06:35)
[2022-10-02] MEDS: INSULIN ASPART (NovoLOG) 100 UNIT/ML VIAL SQ SCH ×7 (06:35→21:52)
[2022-10-02] MEDS: MIDODRINE 5 MG TAB PO SCH ×3 (06:35→16:48)
[2022-10-02] MEDS: LEVOTHYROXINE 125 MCG TAB PO SCH (06:35)
--- NOTE | 2022-10-02 06:50 | XR ---
EXAMINATION TYPE: XR chest 2V DATE OF EXAM: 10/02/2022 6:23 AM COMPARISON: CTA chest 09/28/2022, chest radiograph 09/28/2022 TECHNIQUE: XR chest 2V Frontal and lateral views of the chest. CLINICAL INDICATION:Male, 77 years old with history of Shortness of breath; FINDINGS: Lungs/Pleura: There is no evidence of pleural effusion, focal consolidation, or pneumothorax. Chronic reticular interstitial opacities. Pulmonary vascularity: Unremarkable. Heart/mediastinum: Cardiomediastinal silhouette is unremarkable. Atherosclerotic calcifications are seen in the aorta. Musculoskeletal: Multiple level degenerative disc disease changes seen throughout the spine. Midline sternotomy wires are noted and stable. Bilateral shoulder arthropathy. Other findings: None IMPRESSION: Chronic changes without evidence for acute process.
[2022-10-02] MEDS: SYMBICORT 160-4.5 MCG INHALER INHALATION SCH ×2 (09:06→21:55)
[2022-10-02 09:18] LABS: Basophils # (A) 0.01 X 10*3/uL (0.00-0.10); Basophils % (A) 0.1 %; Eosinophils # (A) 0 X 10*3/uL (0.04-0.35); Eosinophils % (A) 0 %; HCT 45.1 % (39.6-50.0); HGB 15.4 g/dL (13.0-17.0); Immature Grans, Automated 0.6 %; MCH 31.7 pg (27.0-32.0); MCHC 34.1 g/dL (32.0-37.0); MCV 92.8 fL (80.0-97.0); Mean Platelet Volume 11.1 fL (9.5-12.2); Monocytes # (A) 0.36 X 10*3/uL (0.20-1.00); Monocytes % (A) 2.4 %; NRBC Per 100 WBC 0 /100 WBCS (0.0-0.0); Neutrophils # (A) 13.76 X 10*3/uL (1.80-7.70); Neutrophils % (A) 92.9 %; Platelet Count 128 X 10*3/uL (140-440); RBC 4.86 X 10*6/uL (4.40-5.60); RDW 13.5 % (11.5-14.5); WBC 14.82 X 10*3/uL (4.50-10.00)
[2022-10-02] MEDS: APIXABAN 5 MG TAB PO SCH ×2 (09:37→20:27)
[2022-10-02] MEDS: allopurinoL 300 MG TAB PO SCH (09:37)
[2022-10-02] MEDS: SODIUM BICARBONATE TAB 650 MG TAB PO SCH ×2 (09:37→20:28)
[2022-10-02] MEDS: GABAPENTIN 400 MG CAP PO SCH ×3 (09:37→20:27)
[2022-10-02] MEDS: MAGNESIUM OXIDE 400 MG TAB PO SCH ×2 (09:37→20:28)
[2022-10-02] MEDS: predniSONE 20 MG TAB PO SCH (09:37)
[2022-10-02] MEDS: NYSTATIN 100,000 UNIT/ML SUSP 500,000 UNIT/5 ML CUP PO SCH ×4 (09:37→20:27)
[2022-10-02 09:40] LABS: African American GFR (CKD) 43.8 (60.0-200.0); Albumin/Globulin Ratio 1.67 (1.60-3.17); Anion Gap 10.8 mmol/L (10.00-18.00); BUN/Creat Ratio 42.35 Ratio (12.00-20.00); Calcium 8.2 mg/dL (8.7-10.3); Carbon Dioxide 25.2 mmol/L (20.0-27.5); Globulin 1.8 g/dL (1.6-3.3); Magnesium 2.1 mg/dL (1.5-2.4); Non-African American GFR(CKD) 37.8 (60.0-200.0); Potassium 5.4 mmol/L (3.5-5.5); Total Bilirubin 0.7 mg/dL (0.30-1.20); Total Protein 4.8 g/dL (6.2-8.2)
[2022-10-02] MEDS: FUROSEMIDE 10 MG/ML 4 ML VIAL IV SCH (10:19)
[2022-10-02 11:26] LABS: Glucose,Whole Blood 353 mg/dL (70-110)
[2022-10-02] MEDS ORDERED: SODIUM ZIRCONIUM CYCLOSILICATE 10 GM PACKET PO ONE (11:26)
--- NOTE | 2022-10-02 11:27 | P.PN ---
Subjective Patient is seen in follow-up for acute kidney injury. Creatinine peaked at 2.0 on 09/30/2022 and is 1.7 today. On IV Lasix. Good urine output. Cough improved. Denies chest pain. Blood sugars also better controlled but still high. Vital signs are stable. General: Awake. No acute distress. HEENT: Head exam is unremarkable. LUNGS: Breath sounds decreased. HEART: Rate and Rhythm are regular. ABDOMEN: Soft, no distention. EXTREMITITES: No edema. Objective - Vital Signs Vital signs: Vital Signs Temp 97.6 F 10/02/22 07:20 Pulse 61 10/02/22 07:20 Resp 18 10/02/22 07:20 BP 116/68 10/02/22 07:20 Pulse Ox 95 10/02/22 07:20 FiO2 Intake & Output 10/01/22 10/02/22 10/02/22 18:59 06:59 18:59 Output Total 750 1100 Balance -750 -1100 Weight 106 kg Output: Urine 750 1100 Other: Voiding Method Urinal # Voids 3 1 # Bowel Movements 1 1 - Labs CBC & Chem 7: 10/02/22 05:36 10/02/22 05:36 Labs: Abnormal Lab Results - Last 24 Hours (Table) 10/01/22 10/01/22 10/01/22 Range/Units 11:34 16:59 18:10 WBC (4.50-10.00) X 10*3/uL Plt Count (140-440) X 10*3/uL Immature Gran # (0.00-0.04) X 10*3/uL Neutrophils # (1.80-7.70) X 10*3/uL Lymphocytes # (0.90-5.00) X 10*3/uL Eosinophils # (0.04-0.35) X 10*3/uL Sodium 127 L (137-145) mmol/L Chloride 91 L (98-107) mmol/L BUN 81 H (9-20) mg/dL Creatinine 1.97 H (0.66-1.25) mg/dL Est GFR (CKD-EPI)AfAm (60.0-200.0) Est GFR (CKD-EPI)NonAf (60.0-200.0) BUN/Creatinine Ratio (12.00-20.00) Ratio Glucose 402 H (74-99) mg/dL POC Glucose (mg/dL) 394 H 412 H (70-110) mg/dL Calcium 7.9 L (8.4-10.2) mg/dL AST (14-35) U/L Total Protein (6.2-8.2) g/dL Albumin (3.8-4.9) g/dL 10/01/22 10/02/22 10/02/22 Range/Units 21:06 05:36 05:36 WBC 14.82 H (4.50-10.00) X 10*3/uL Plt Count 128 L (140-440) X 10*3/uL Immature Gran # 0.09 H (0.00-0.04) X 10*3/uL Neutrophils # 13.76 H (1.80-7.70) X 10*3/uL Lymphocytes # 0.60 L (0.90-5.00) X 10*3/uL Eosinophils # 0 L (0.04-0.35) X 10*3/uL Sodium 130 L (137-145) mmol/L Chloride 94 L (98-107) mmol/L BUN 72.0 H (9-20) mg/dL Creatinine 1.7 H (0.66-1.25) mg/dL Est GFR (CKD-EPI)AfAm 43.8 L (60.0-200.0) Est GFR (CKD-EPI)NonAf 37.8 L (60.0-200.0) BUN/Creatinine Ratio 42.35 H (12.00-20.00) Ratio Glucose 297 H (74-99) mg/dL POC Glucose (mg/dL) 316 H (70-110) mg/dL Calcium 8.2 L (8.4-10.2) mg/dL AST 11 L (14-35) U/L Total Protein 4.8 L (6.2-8.2) g/dL Albumin 3.0 L (3.8-4.9) g/dL 10/02/22 Range/Units 06:04 WBC (4.50-10.00) X 10*3/uL Plt Count (140-440) X 10*3/uL Immature Gran # (0.00-0.04) X 10*3/uL Neutrophils # (1.80-7.70) X 10*3/uL Lymphocytes # (0.90-5.00) X 10*3/uL Eosinophils # (0.04-0.35) X 10*3/uL Sodium (137-145) mmol/L Chloride (98-107) mmol/L BUN (9-20) mg/dL Creatinine (0.66-1.25) mg/dL Est GFR (CKD-EPI)AfAm (60.0-200.0) Est GFR (CKD-EPI)NonAf (60.0-200.0) BUN/Creatinine Ratio (12.00-20.00) Ratio Glucose (74-99) mg/dL POC Glucose (mg/dL) 276 H (70-110) mg/dL Calcium (8.4-10.2) mg/dL AST (14-35) U/L Total Protein (6.2-8.2) g/dL Albumin (3.8-4.9) g/dL Microbiology - Last 24 Hours (Table) 10/01/22 07:03 Gram Stain - Preliminary Sputum Sputum Culture - Preliminary Assessment and Plan Plan: Assessment: 1. Acute kidney injury secondary to ATN secondary to cardiorenal syndrome. Also component of contrast-induced acute kidney injury as he received IV contrast on 09/28/2022. Creatinine peaked at 21 09/30/2020 20 is 1.7 today. 2. Acute hypoxic respiratory failure secondary to volume overload and COPD exacerbation/pneumonia. 3. Hypervolemic hyponatremia with component of hypertonicity from hyperglycemia. Better. 4. Hyperkalemia secondary to hyperglycemia. Improved. 5. Chronic kidney disease stage III with baseline creatinine 1-1.2. Etiology is nephrosclerosis. UA benign. Renal ultrasound showed atrophic right kidney with no evidence of hydronephrosis. 6. Metabolic acidosis secondary to acute kidney injury. Improved. On oral bicarbonate. Plan: Maintain IV Lasix for now. Low-salt diet and 1200 mL fluid restriction. Blood sugar control. Repeat labs in the morning. Avoid nephrotoxins. Lokelma 10 g once today.
[2022-10-02 12:09] VITALS: BMI 30.8
--- NOTE | 2022-10-02 13:46 | P.PN ---
Subjective Progress Note Date: 10/02/22 This is a pleasant 76-year-old male patient with a known history of chronic systolic congestive heart failure with an ejection fraction 20-25%, pulmonary hypertension, hypothyroidism, diabetes mellitus, atrial fibrillation, hypertension, hyperlipidemia, gout, anemia. He was recently hospitalized at [facility] for shortness of breath and was told that he has chronic obstructive pulmonary disease and suspected obstructive sleep apnea. He is maintained on Trelegy and albuterol in the outpatient setting. He was just discharged home from the hospital on 09/26/2022. He represented here in the emergency room yesterday with worsening shortness of breath cough and congestion. chest x-ray shows coarse interstitial pulmonary density and minimal pleural fluid. Some underlying interstitial fibrosis not excluded. CT angiogram ruled out pulmonary embolism. There is again noted patchy bilateral pulmonary interstitial infiltrates and subsegmental atelectasis. No suspicious pulmonary mass. Borderline cardiomegaly. EKG reveals atrial fibrillation/flutter. He is anticoagulated with Eliquis. He was initiated on Symbicort, albuterol, IV site Medrol. He is initiated on IV diuretics. Empiric antibiotics in the form of azithromycin. He is seen today in consultation on the regular medical floor. Currently sitting up in bed. Awake and alert in no acute distress. Naintaining good O2 saturation in the mid 90s on room air. Afebrile. White count 9.9. Hemoglobin 16.7. Platelets 100,000. Sodium 127. Potassium 5.2. Bicarb 18. BUN 50. Creatinine 1.48. Glucose 400. Procalcitonin 0.18. Reevaluated today on 09/30/22, patient is feeling better, breathing easier, hardly any shortness of breath, patient is now on room air. O2 sats is 92%. WBC count is 18.1 hemoglobin is 15.8, electrolytes are abnormal low sodium of 126 potassium is 5.5 blood sugar is abnormal is up to 451, poorly controlled. Patient is being followed by nephrology for his hyperkalemia, I believe his hyponatremia is mostly hypovolemic in nature plus there is a component of pseudohyponatremia because of his elevated blood sugar. The patient is seen today 10/01/2022 in follow-up on the regular medical floor. He sitting up in bed. Awake and alert in no acute distress. Maintaining good O2 saturations in the 90s on room air. Sputum culture is pending. White count 18.6. Hemoglobin 16.3. Sodium 125. Potassium 5.4. BUN 77. Creatinine 1.8. Glucose 400. He is continued on Symbicort and albuterol along with a prednisone taper. Anticoagulated with Eliquis. Remains on IV diuretics. Ultrasound of the bladder did not reveal any renal mass or obstruction. Renal atrophy. He remains in a -3.6 L balance. The patient is seen today 10/02/2022 in follow-up on the regular medical floor. He is currently resting comfortably in bed. Maintaining O2 saturations in the 90s on room air. White count 14.8. Hemoglobin 15.4. Platelets 128. Sodium 130. Potassium 5.4. BUN 72. Creatinine 1.7. Glucose 297. Chest x-ray reveals chronic changes without acute pulmonary process. No focal consolidation. No pneumothorax. No evidence of effusion. He remains on Symbicort and albuterol. Continued on IV diuretics. Remains on a low-salt diet. 1200 ML fluid restriction per nephrology recommendations. He did receive Lokelma today. Currently in a -2.2 L balance. Objective - Vital Signs Vital signs: Vital Signs Temp 97.6 F 10/02/22 07:20 Pulse 61 10/02/22 07:20 Resp 18 10/02/22 07:20 BP 116/68 10/02/22 07:20 Pulse Ox 95 10/02/22 07:20 FiO2 Intake & Output 10/01/22 10/02/22 10/02/22 18:59 06:59 18:59 Output Total 750 1100 Balance -750 -1100 Weight 106 kg 106 kg Output: Urine 750 1100 Other: Voiding Method Urinal # Voids 3 1 # Bowel Movements 1 1 - Exam GENERAL EXAM: Alert, 77-year-old male patient, on room air, comfortable in no apparent distress. HEAD: Normocephalic. EYES: Normal reaction of pupils, equal size. NOSE: Clear with pink turbinates. THROAT: No erythema or exudates. NECK: No masses, no JVD. CHEST: No chest wall deformity. LUNGS: Equal air entry with no crackles, wheeze, rhonchi or dullness. CVS: S1 and S2 normal with no audible murmur, regular rhythm. ABDOMEN: No hepatosplenomegaly, normal bowel sounds, no guarding or rigidity. SPINE: No scoliosis or deformity SKIN: No rashes CENTRAL NERVOUS SYSTEM: No focal deficits, tone is normal in all 4 extremities. EXTREMITIES: There is no peripheral edema. No clubbing, no cyanosis. Peripheral pulses are intact. - Labs CBC & Chem 7: 10/02/22 05:36 10/02/22 05:36 Labs: Abnormal Lab Results - Last 24 Hours (Table) 10/01/22 10/01/22 10/01/22 Range/Units 16:59 18:10 21:06 WBC (4.50-10.00) X 10*3/uL Plt Count (140-440) X 10*3/uL Immature Gran # (0.00-0.04) X 10*3/uL Neutrophils # (1.80-7.70) X 10*3/uL Lymphocytes # (0.90-5.00) X 10*3/uL Eosinophils # (0.04-0.35) X 10*3/uL Sodium 127 L (137-145) mmol/L Chloride 91 L (98-107) mmol/L BUN 81 H (9-20) mg/dL Creatinine 1.97 H (0.66-1.25) mg/dL Est GFR (CKD-EPI)AfAm (60.0-200.0) Est GFR (CKD-EPI)NonAf (60.0-200.0) BUN/Creatinine Ratio (12.00-20.00) Ratio Glucose 402 H (74-99) mg/dL POC Glucose (mg/dL) 412 H 316 H (70-110) mg/dL Calcium 7.9 L (8.4-10.2) mg/dL AST (14-35) U/L Total Protein (6.2-8.2) g/dL Albumin (3.8-4.9) g/dL 10/02/22 10/02/22 10/02/22 Range/Units 05:36 05:36 06:04 WBC 14.82 H (4.50-10.00) X 10*3/uL Plt Count 128 L (140-440) X 10*3/uL Immature Gran # 0.09 H (0.00-0.04) X 10*3/uL Neutrophils # 13.76 H (1.80-7.70) X 10*3/uL Lymphocytes # 0.60 L (0.90-5.00) X 10*3/uL Eosinophils # 0 L (0.04-0.35) X 10*3/uL Sodium 130 L (137-145) mmol/L Chloride 94 L (98-107) mmol/L BUN 72.0 H (9-20) mg/dL Creatinine 1.7 H (0.66-1.25) mg/dL Est GFR (CKD-EPI)AfAm 43.8 L (60.0-200.0) Est GFR (CKD-EPI)NonAf 37.8 L (60.0-200.0) BUN/Creatinine Ratio 42.35 H (12.00-20.00) Ratio Glucose 297 H (74-99) mg/dL POC Glucose (mg/dL) 276 H (70-110) mg/dL Calcium 8.2 L (8.4-10.2) mg/dL AST 11 L (14-35) U/L Total Protein 4.8 L (6.2-8.2) g/dL Albumin 3.0 L (3.8-4.9) g/dL 10/02/22 Range/Units 11:25 WBC (4.50-10.00) X 10*3/uL Plt Count (140-440) X 10*3/uL Immature Gran # (0.00-0.04) X 10*3/uL Neutrophils # (1.80-7.70) X 10*3/uL Lymphocytes # (0.90-5.00) X 10*3/uL Eosinophils # (0.04-0.35) X 10*3/uL Sodium (137-145) mmol/L Chloride (98-107) mmol/L BUN (9-20) mg/dL Creatinine (0.66-1.25) mg/dL Est GFR (CKD-EPI)AfAm (60.0-200.0) Est GFR (CKD-EPI)NonAf (60.0-200.0) BUN/Creatinine Ratio (12.00-20.00) Ratio Glucose (74-99) mg/dL POC Glucose (mg/dL) 353 H (70-110) mg/dL Calcium (8.4-10.2) mg/dL AST (14-35) U/L Total Protein (6.2-8.2) g/dL Albumin (3.8-4.9) g/dL Microbiology - Last 24 Hours (Table) 10/01/22 07:03 Gram Stain - Preliminary Sputum Sputum Culture - Preliminary Assessment and Plan Assessment: Acute exacerbation of chronic systolic congestive heart failure, remains on IV diuretics Acute exacerbation of chronic obstructive pulmonary disease, currently stable. Chest x-ray reveals no acute pulmonary process Recent hospitalization for COPD/CHF Coronary artery disease with previous coronary artery bypass graftingwith a LINDSEY to the LAD, previous PCI to the circumflex, left main and RCA Ischemic cardiomyopathy Atrial fibrillation, anticoagulated with Eliquis Obesity Hypertension Hyperlipidemia Diabetes mellitus History of gout Hypothyroidism History of anemia Plan: The patient was seen and evaluated Currently stable and on room air Chest x-ray reveals no acute process Labs and medications reviewed Continued on Lasix 40 mg IV daily Remains in a negative balance Continue Symbicort, albuterol, steroids We will continue to follow I have personally seen and examined the patient, performed the documentation and the assessment and plan as written. Number of minutes spent on the visit: 10.
[2022-10-02 16:33] LABS: Glucose,Whole Blood 326 mg/dL (70-110)
--- NOTE | 2022-10-02 17:25 | P.PN ---
Subjective Progress Note Date: 10/02/22 Patrick Banuelos, is a 76-year-old male who presented to [facility] emergency room with a chief complaint of worsening shortness of breath He was evaluated in the emergency room vital examination on presentation revealed a temperature of 97.7 pulse 90 respiration 18 blood pressure 127/77 pu lse ox 98% on room air Laboratory data revealed a white blood count of 16.7 hemoglobin 15.9 platelet count 119 sodium 127 potassium 5.8 chloride 103 CO2 24 BUN 13 and creatinine 1.2 Testing in the emergency room revealed chest x-ray done in the emergency room reveals coarse interstitial pulmonary density and minimal pleural fluid and probable pulmonary interstitial fibrosis, CT angiogram of the chest revealed no evidence of pulmonary embolism there was patchy bilateral pulmonary interstitial infiltrates Patient was admitted to medical floor for further evaluation and treatment. On 09/30/2022 patient is alert and oriented 3. Patient reports some improvement with shortness of breath. Patient remains on IV Lasix and IV steroids. Sodium also low at 126 nephrology services have been consulted. Patient denies chest pain. Patient denies nausea vomiting or diarrhea. Patient denies any urinary burning or frequency On 10/01/2022 patient was seen and examined on the medical floor he is alert and oriented 3 in no apparent distress he is still complaining of shortness of breath with activity otherwise he denies any complaints there is no fever or chills no headache or dizziness no chest pain he has occasional cough no nausea or vomiting no abdominal pain no diarrhea and no urinary symptoms. He is maintained on IV Lasix IV steroids and IV Zithromax pulmonary cardiology and nephrology are following, input reviewed carefully will recheck labs and chest x-ray in a.m. On 10/02/2022 patient was seen and examined on the medical floor he is alert and oriented 3 in no apparent distress there is no fever or chills no headache or dizziness he is still complaining of shortness of breath with any activity there is no nausea or vomiting no abdominal pain no diarrhea no blood in the stools no burning with urination no frequency or urgency and no hematuria he is still maintained on IV Lasix, nephrology are following Objective - Vital Signs Vital signs: Vital Signs Temp 97.6 F 10/02/22 07:20 Pulse 61 10/02/22 07:20 Resp 18 10/02/22 07:20 BP 116/68 10/02/22 07:20 Pulse Ox 95 10/02/22 07:20 FiO2 Intake & Output 10/01/22 10/02/22 10/02/22 18:59 06:59 18:59 Output Total 750 1100 Balance -750 -1100 Weight 106 kg Output: Urine 750 1100 Other: Voiding Method Urinal # Voids 3 1 # Bowel Movements 1 1 - Exam In general patient is alert and oriented x 3 in no distress HEENT head normocephalic and atraumatic Neck is supple no JVD no goiter no lymphadenopathy no carotid bruit Chest examination reveals few scattered rhonchi in both lung fuentes no wheezing. Cardiac exam reveals regular heart sounds S1 and S2 no gallops no murmurs Abdomen is soft nontender no organomegaly with normal bowel sounds Extremity exam reveals no edema no cyanosis or clubbing Neurological examination reveals no gross focal deficits. - Labs CBC & Chem 7: 10/02/22 05:36 10/02/22 05:36 Labs: Abnormal Lab Results - Last 24 Hours (Table) 10/01/22 10/01/22 10/01/22 Range/Units 09:30 09:30 11:34 WBC 18.6 H (3.8-10.6) k/uL Plt Count 137 L (150-450) k/uL Neutrophils # 17.8 H (1.3-7.7) k/uL Lymphocytes # 0.5 L (1.0-4.8) k/uL Sodium 125 L (137-145) mmol/L Potassium 5.4 H (3.5-5.1) mmol/L Chloride 94 L (98-107) mmol/L Carbon Dioxide 20 L (22-30) mmol/L BUN 77 H (9-20) mg/dL Creatinine 1.80 H (0.66-1.25) mg/dL Glucose 400 H (74-99) mg/dL POC Glucose (mg/dL) 394 H (70-110) mg/dL Calcium 7.8 L (8.4-10.2) mg/dL Total Protein 5.3 L (6.3-8.2) g/dL Albumin 3.0 L (3.5-5.0) g/dL 10/01/22 10/01/22 10/01/22 Range/Units 16:59 18:10 21:06 WBC (3.8-10.6) k/uL Plt Count (150-450) k/uL Neutrophils # (1.3-7.7) k/uL Lymphocytes # (1.0-4.8) k/uL Sodium 127 L (137-145) mmol/L Potassium (3.5-5.1) mmol/L Chloride 91 L (98-107) mmol/L Carbon Dioxide (22-30) mmol/L BUN 81 H (9-20) mg/dL Creatinine 1.97 H (0.66-1.25) mg/dL Glucose 402 H (74-99) mg/dL POC Glucose (mg/dL) 412 H 316 H (70-110) mg/dL Calcium 7.9 L (8.4-10.2) mg/dL Total Protein (6.3-8.2) g/dL Albumin (3.5-5.0) g/dL 10/02/22 Range/Units 06:04 WBC (3.8-10.6) k/uL Plt Count (150-450) k/uL Neutrophils # (1.3-7.7) k/uL Lymphocytes # (1.0-4.8) k/uL Sodium (137-145) mmol/L Potassium (3.5-5.1) mmol/L Chloride (98-107) mmol/L Carbon Dioxide (22-30) mmol/L BUN (9-20) mg/dL Creatinine (0.66-1.25) mg/dL Glucose (74-99) mg/dL POC Glucose (mg/dL) 276 H (70-110) mg/dL Calcium (8.4-10.2) mg/dL Total Protein (6.3-8.2) g/dL Albumin (3.5-5.0) g/dL Microbiology - Last 24 Hours (Table) 10/01/22 07:03 Gram Stain - Preliminary Sputum Sputum Culture - Preliminary Assessment and Plan Plan: Acute exacerbation of chronic systolic congestive heart failure, with known history of ischemic cardiomyopathy. Acute exacerbation of chronic obstructive pulmonary disease Chest x-ray suspicious for pneumonia patient was started on IV Zithromax he has multiple antibiotic ALLERGIES Coronary artery disease with previous coronary artery bypass graft surgery Atrial fibrillation, maintained on Eliquis Eliquis Underlying history of Diabetes mellitus Underlying history of hypertension Underlying history of hyperlipidemia Underlying history of hypothyroidism Underlying history of gout At this time patient is admitted to medical floor Home medications reviewed and reordered He was started on IV antibiotics He was started on IV Lasix Pulmonary and cardiology consultation requested For DVT prophylaxis, patient is on Ellik was
[2022-10-02] MEDS: ATORVASTATIN 40 MG TAB PO SCH (20:28)
[2022-10-02 20:50] LABS: Glucose,Whole Blood 341 mg/dL (70-110)
[2022-10-02] MEDS: ALBUTEROL NEBULIZED 2.5 MG/3 ML INHALATION PRN (21:55)
[2022-10-03] MEDS: LEVOTHYROXINE 112 MCG TAB PO SCH (04:47)
[2022-10-03 05:54] LABS: Glucose,Whole Blood 296 mg/dL (70-110)
[2022-10-03] MEDS: LEVOTHYROXINE 125 MCG TAB PO SCH (06:05)
[2022-10-03] MEDS: GLIMEPIRIDE 2 MG TAB PO SCH (06:05)
[2022-10-03] MEDS: MIDODRINE 5 MG TAB PO SCH ×3 (06:05→17:21)
[2022-10-03] MEDS: INSULIN ASPART (NovoLOG) 100 UNIT/ML VIAL SQ SCH ×7 (06:05→21:41)
[2022-10-03] MEDS: carvediloL 6.25 MG TAB PO SCH ×2 (06:05→17:21)
[2022-10-03] MEDS: PANTOPRAZOLE 40 MG TABLET PO SCH (06:05)
[2022-10-03] MEDS: allopurinoL 300 MG TAB PO SCH (07:46)
[2022-10-03] MEDS: APIXABAN 5 MG TAB PO SCH ×2 (07:47→21:40)
[2022-10-03] MEDS: GABAPENTIN 400 MG CAP PO SCH (07:47)
[2022-10-03] MEDS: FUROSEMIDE 10 MG/ML 4 ML VIAL IV SCH (07:47)
[2022-10-03] MEDS: MAGNESIUM OXIDE 400 MG TAB PO SCH (07:48)
[2022-10-03] MEDS: SODIUM BICARBONATE TAB 650 MG TAB PO SCH ×2 (07:48→21:40)
[2022-10-03] MEDS: NYSTATIN 100,000 UNIT/ML SUSP 500,000 UNIT/5 ML CUP PO SCH ×4 (07:48→21:42)
[2022-10-03] MEDS: predniSONE 20 MG TAB PO SCH (07:48)
[2022-10-03] MEDS: SYMBICORT 160-4.5 MCG INHALER INHALATION SCH ×2 (09:53→20:10)
[2022-10-03] MEDS: ALBUTEROL NEBULIZED 2.5 MG/3 ML INHALATION PRN (09:55)
[2022-10-03 10:45] LABS: African American GFR (CKD) 40.9 (60.0-200.0); Anion Gap 12.9 mmol/L (10.00-18.00); BUN/Creat Ratio 34.39 Ratio (12.00-20.00); Blood Urea Nitrogen 61.9 mg/dL (9.0-27.0); Calcium 8.7 mg/dL (8.7-10.3); Carbon Dioxide 24.1 mmol/L (20.0-27.5); Magnesium 2.6 mg/dL (1.5-2.4); Non-African American GFR(CKD) 35.3 (60.0-200.0); Potassium 5.1 mmol/L (3.5-5.5)
--- NOTE | 2022-10-03 10:50 | P.PN ---
Subjective Progress Note Date: 10/03/22 Patrick Banuelos, is a 76-year-old male who presented to [facility] emergency room with a chief complaint of worsening shortness of breath He was evaluated in the emergency room vital examination on presentation revealed a temperature of 97.7 pulse 90 respiration 18 blood pressure 127/77 pu lse ox 98% on room air Laboratory data revealed a white blood count of 16.7 hemoglobin 15.9 platelet count 119 sodium 127 potassium 5.8 chloride 103 CO2 24 BUN 13 and creatinine 1.2 Testing in the emergency room revealed chest x-ray done in the emergency room reveals coarse interstitial pulmonary density and minimal pleural fluid and probable pulmonary interstitial fibrosis, CT angiogram of the chest revealed no evidence of pulmonary embolism there was patchy bilateral pulmonary interstitial infiltrates Patient was admitted to medical floor for further evaluation and treatment. On 09/30/2022 patient is alert and oriented 3. Patient reports some improvement with shortness of breath. Patient remains on IV Lasix and IV steroids. Sodium also low at 126 nephrology services have been consulted. Patient denies chest pain. Patient denies nausea vomiting or diarrhea. Patient denies any urinary burning or frequency On 10/01/2022 patient was seen and examined on the medical floor he is alert and oriented 3 in no apparent distress he is still complaining of shortness of breath with activity otherwise he denies any complaints there is no fever or chills no headache or dizziness no chest pain he has occasional cough no nausea or vomiting no abdominal pain no diarrhea and no urinary symptoms. He is maintained on IV Lasix IV steroids and IV Zithromax pulmonary cardiology and nephrology are following, input reviewed carefully will recheck labs and chest x-ray in a.m. On 10/02/2022 patient was seen and examined on the medical floor he is alert and oriented 3 in no apparent distress there is no fever or chills no headache or dizziness he is still complaining of shortness of breath with any activity there is no nausea or vomiting no abdominal pain no diarrhea no blood in the stools no burning with urination no frequency or urgency and no hematuria he is still maintained on IV Lasix, nephrology are following 10/03/2022 patient is alert and oriented 3. Patient reports some improvement shortness of breath. Patient remains on IV diuretics. Sodium 129, creatinine 1.8. Nephrology services are following. Temp 97.8, heart rate 86, respiratory rate 20, blood pressure 101/72 with pulse ox 93%. Blood sugars remain high will add Lantus 10 units ordered hemoglobin A1c Objective - Vital Signs Vital signs: Vital Signs Temp 97.8 F 10/03/22 07:18 Pulse 92 10/03/22 10:05 Resp 20 10/03/22 07:18 BP 101/72 10/03/22 07:18 Pulse Ox 93 L 10/03/22 07:18 FiO2 Intake & Output 10/02/22 10/03/22 10/03/22 18:59 06:59 18:59 Output Total 2750 900 Balance -2750 -900 Weight 106 kg 105.6 kg Output: Urine 1550 900 Stool 1200 Other: # Voids 3 # Bowel Movements 1 - Exam In general patient is alert and oriented x 3 in no distress HEENT head normocephalic and atraumatic Neck is supple no JVD no goiter no lymphadenopathy no carotid bruit Chest examination reveals few scattered rhonchi in both lung fuentes no wheezing. Cardiac exam reveals regular heart sounds S1 and S2 no gallops no murmurs Abdomen is soft nontender no organomegaly with normal bowel sounds Extremity exam reveals no edema no cyanosis or clubbing Neurological examination reveals no gross focal deficits. - Labs CBC & Chem 7: 10/02/22 05:36 10/03/22 06:35 Labs: Abnormal Lab Results - Last 24 Hours (Table) 10/02/22 10/02/22 10/02/22 Range/Units 11:25 16:32 20:48 Sodium (135-145) mmol/L Chloride (96-109) mmol/L BUN (9.0-27.0) mg/dL Creatinine (0.6-1.5) mg/dL Est GFR (CKD-EPI)AfAm (60.0-200.0) Est GFR (CKD-EPI)NonAf (60.0-200.0) BUN/Creatinine Ratio (12.00-20.00) Ratio Glucose (70-110) mg/dL POC Glucose (mg/dL) 353 H 326 H 341 H (70-110) mg/dL Magnesium (1.5-2.4) mg/dL 10/03/22 10/03/22 Range/Units 05:53 06:35 Sodium 129 L (135-145) mmol/L Chloride 92 L (96-109) mmol/L BUN 61.9 H (9.0-27.0) mg/dL Creatinine 1.8 H (0.6-1.5) mg/dL Est GFR (CKD-EPI)AfAm 40.9 L (60.0-200.0) Est GFR (CKD-EPI)NonAf 35.3 L (60.0-200.0) BUN/Creatinine Ratio 34.39 H (12.00-20.00) Ratio Glucose 363 H (70-110) mg/dL POC Glucose (mg/dL) 296 H (70-110) mg/dL Magnesium 2.6 H (1.5-2.4) mg/dL Assessment and Plan Plan: Acute exacerbation of chronic systolic congestive heart failure, with known history of ischemic cardiomyopathy. Acute exacerbation of chronic obstructive pulmonary disease Chest x-ray suspicious for pneumonia patient was started on IV Zithromax he has multiple antibiotic ALLERGIES Coronary artery disease with previous coronary artery bypass graft surgery Atrial fibrillation, maintained on Eliquis Eliquis Underlying history of Diabetes mellitus. Elevated blood sugars. Will add Lantus 10 units at night and order hemoglobin A1c Underlying history of hypertension Underlying history of hyperlipidemia Underlying history of hypothyroidism Underlying history of gout At this time patient is admitted to medical floor Home medications reviewed and reordered He was started on IV antibiotics He was started on IV Lasix Pulmonary and cardiology consultation requested For DVT prophylaxis, patient is on eliquis
[2022-10-03 11:07] LABS: Glucose,Whole Blood 370 mg/dL (70-110)
--- NOTE | 2022-10-03 12:25 | P.PN ---
Subjective Patient is seen in follow-up for acute kidney injury. Creatinine peaked at 2.0 on 09/30/2022 and is stable at 1.8 today. On IV Lasix. Good urine output. Cough improved. Denies chest pain. On room air. Blood sugars over 300 this morning. Vital signs are stable. General: Awake. No acute distress. HEENT: Head exam is unremarkable. LUNGS: Breath sounds decreased. HEART: Rate and Rhythm are regular. ABDOMEN: Soft, no distention. EXTREMITITES: No edema. Objective - Vital Signs Vital signs: Vital Signs Temp 97.8 F 10/03/22 07:18 Pulse 92 10/03/22 10:05 Resp 20 10/03/22 07:18 BP 101/72 10/03/22 07:18 Pulse Ox 93 L 10/03/22 07:18 FiO2 Intake & Output 10/02/22 10/03/22 10/03/22 18:59 06:59 18:59 Output Total 2750 900 500 Balance -2750 -900 -500 Weight 106 kg 105.6 kg Output: Urine 1550 900 500 Stool 1200 Other: # Voids 3 # Bowel Movements 1 - Labs CBC & Chem 7: 10/02/22 05:36 10/03/22 06:35 Labs: Abnormal Lab Results - Last 24 Hours (Table) 10/02/22 10/02/22 10/03/22 Range/Units 16:32 20:48 05:53 Sodium (135-145) mmol/L Chloride (96-109) mmol/L BUN (9.0-27.0) mg/dL Creatinine (0.6-1.5) mg/dL Est GFR (CKD-EPI)AfAm (60.0-200.0) Est GFR (CKD-EPI)NonAf (60.0-200.0) BUN/Creatinine Ratio (12.00-20.00) Ratio Glucose (70-110) mg/dL POC Glucose (mg/dL) 326 H 341 H 296 H (70-110) mg/dL Magnesium (1.5-2.4) mg/dL 10/03/22 10/03/22 Range/Units 06:35 11:06 Sodium 129 L (135-145) mmol/L Chloride 92 L (96-109) mmol/L BUN 61.9 H (9.0-27.0) mg/dL Creatinine 1.8 H (0.6-1.5) mg/dL Est GFR (CKD-EPI)AfAm 40.9 L (60.0-200.0) Est GFR (CKD-EPI)NonAf 35.3 L (60.0-200.0) BUN/Creatinine Ratio 34.39 H (12.00-20.00) Ratio Glucose 363 H (70-110) mg/dL POC Glucose (mg/dL) 370 H (70-110) mg/dL Magnesium 2.6 H (1.5-2.4) mg/dL Microbiology - Last 24 Hours (Table) 10/01/22 07:03 Gram Stain - Final Sputum Sputum Culture - Final Methicillin resist S. aureus Assessment and Plan Plan: Assessment: 1. Acute kidney injury secondary to ATN secondary to cardiorenal syndrome. Also component of contrast-induced acute kidney injury as he received IV contrast on 09/28/2022. Right kidney atrophic. No hydronephrosis noted on ultrasound. UA benign. Creatinine peaked at 2.0 ON 09/30/2020 20 is 1.8 today. 2. Acute hypoxic respiratory failure secondary to volume overload and COPD exacerbation/pneumonia. 3. Hypervolemic hyponatremia with component of hypertonicity from hyperglycemia. 4. Hyperkalemia secondary to hyperglycemia. Potassium 5.1 today. 5. Chronic kidney disease stage III with baseline creatinine 1-1.2. Etiology is nephrosclerosis. UA benign. Renal ultrasound showed atrophic right kidney with no evidence of hydronephrosis. 6. Metabolic acidosis secondary to acute kidney injury. On oral bicarbonate. 7. Diabetes mellitus. Exacerbated by steroids. Plan: Change Lasix to 40 mg orally once daily. Low-salt diet and 1200 mL fluid restriction. Blood sugar control. Repeat labs in the morning. Avoid nephrotoxins. Stop magnesium oxide.
--- NOTE | 2022-10-03 13:31 | CDI ---
Documentation Clarification Form Date: 10/03/2022 01:01:23 PM From: Heidi Watson RN CCDS Admit Date: 09/28/2022 08:03:00 PM Patient Name: Patrick Banuelos Visit Number: [id number] Discharge Date: ATTENTION: The Clinical Documentation Specialists (CDI) and [facility] Coding Staff appreciate your assistance in clarifying documentation. Please respond to the clarification below the line at the bottom and electronically sign. The CDI & [facility] Coding staff will review the response and follow-up if needed. Please note: Queries are made part of the Legal Health Record. If you have any questions, please contact the author of this message via ITS. Dr. Volodymyr Burgess Acute hypoxic respiratory failure is documented 09/30 10/03,Nephrology notes, which may lack sufficient clinical evidence/support in the medical record. Additional clarification is requested. History/Risk Factors: 76-year-old male presents to the ED with worsening shortness of breath. Medical History: Afib; Asthma; HTN; DM and CHF. 09/29, H&P. Clinical Indicators: 09/29 Admitting diagnosis: Acute exacerbation of chronic systolic heart failure; Acute exacerbation of COPD and Suspicious for pneumonia Former smoker, 09/29, H&P 09/28, VS: B/P 127/77; HR 90; Temp 97.7 F Oral; RR 18; SpO2 98% room air 09/29: Spo2 95% room air 09/30: Spo2 90% room air 10/01 SpO2 93% room air 09/29, Lung exam: Few scattered rhonchi in both lung fuentes no wheezing. 09/28, Labs: Wbc 16.7; Neutrophils 15.7; Lymph 0.3 Treatment: 09/28 Lasix x 1; 09/28 Methylprednisolone IV x 1; 09/29 Albuterol Sulfate Inhalation Q4H PRN; 09/29 Symbicort Inhalation BID MARIVEL; 09/29 Solumedrol IV Q8 MARIVEL; 09/29- 125 Azithromycin IVPB daily x 3 bags Please clarify if Respiratory Failure is a valid diagnosis? [ ] Yes, Acute Respiratory Failure is present as evidence by (additional clinical support): [x ] No, Acute Respiratory is ruled out [ ] Other (please specify diagnosis) [ ] Unable to determine (Template Last Revised: December 2020) MTDD
[2022-10-03] MEDS ORDERED: VANCOMYCIN IV PER PHARMACY 1 EACH MISC MISCELLANE PRN (14:30)
--- NOTE | 2022-10-03 14:30 | P.PN ---
Subjective Progress Note Date: 10/03/22 This is a pleasant 76-year-old male patient with a known history of chronic systolic congestive heart failure with an ejection fraction 20-25%, pulmonary hypertension, hypothyroidism, diabetes mellitus, atrial fibrillation, hypertension, hyperlipidemia, gout, anemia. He was recently hospitalized at [facility] for shortness of breath and was told that he has chronic obstructive pulmonary disease and suspected obstructive sleep apnea. He is maintained on Trelegy and albuterol in the outpatient setting. He was just discharged home from the hospital on 09/26/2022. He represented here in the emergency room yesterday with worsening shortness of breath cough and congestion. chest x-ray shows coarse interstitial pulmonary density and minimal pleural fluid. Some underlying interstitial fibrosis not excluded. CT angiogram ruled out pulmonary embolism. There is again noted patchy bilateral pulmonary interstitial infiltrates and subsegmental atelectasis. No suspicious pulmonary mass. Borderline cardiomegaly. EKG reveals atrial fibrillation/flutter. He is anticoagulated with Eliquis. He was initiated on Symbicort, albuterol, IV site Medrol. He is initiated on IV diuretics. Empiric antibiotics in the form of azithromycin. He is seen today in consultation on the regular medical floor. Currently sitting up in bed. Awake and alert in no acute distress. Naintaining good O2 saturation in the mid 90s on room air. Afebrile. White count 9.9. Hemoglobin 16.7. Platelets 100,000. Sodium 127. Potassium 5.2. Bicarb 18. BUN 50. Creatinine 1.48. Glucose 400. Procalcitonin 0.18. Reevaluated today on 09/30/22, patient is feeling better, breathing easier, hardly any shortness of breath, patient is now on room air. O2 sats is 92%. WBC count is 18.1 hemoglobin is 15.8, electrolytes are abnormal low sodium of 126 potassium is 5.5 blood sugar is abnormal is up to 451, poorly controlled. Patient is being followed by nephrology for his hyperkalemia, I believe his hyponatremia is mostly hypovolemic in nature plus there is a component of pseudohyponatremia because of his elevated blood sugar. The patient is seen today 10/01/2022 in follow-up on the regular medical floor. He sitting up in bed. Awake and alert in no acute distress. Maintaining good O2 saturations in the 90s on room air. Sputum culture is pending. White count 18.6. Hemoglobin 16.3. Sodium 125. Potassium 5.4. BUN 77. Creatinine 1.8. Glucose 400. He is continued on Symbicort and albuterol along with a prednisone taper. Anticoagulated with Eliquis. Remains on IV diuretics. Ultrasound of the bladder did not reveal any renal mass or obstruction. Renal atrophy. He remains in a -3.6 L balance. The patient is seen today 10/02/2022 in follow-up on the regular medical floor. He is currently resting comfortably in bed. Maintaining O2 saturations in the 90s on room air. White count 14.8. Hemoglobin 15.4. Platelets 128. Sodium 130. Potassium 5.4. BUN 72. Creatinine 1.7. Glucose 297. Chest x-ray reveals chronic changes without acute pulmonary process. No focal consolidation. No pneumothorax. No evidence of effusion. He remains on Symbicort and albuterol. Continued on IV diuretics. Remains on a low-salt diet. 1200 ML fluid restriction per nephrology recommendations. He did receive Lokelma today. Currently in a -2.2 L balance. The patient is seen today 10/03/2022 in follow-up on the regular medical floor. He's been up ambulating in his room. He is maintaining good O2 saturations in the 90s on room air. His sputum is positive for MRSA. Sodium 129. Potassium 5.1. Bicarb 24. BUN 62. Creatinine 1.8. Glucose 363. He is continued on Symbicort, DuoNeb inhalations. Antiplatelet with Eliquis. Switch to oral diuretics. Insulin being adjusted. Objective - Vital Signs Vital signs: Vital Signs Temp 97.8 F 10/03/22 07:18 Pulse 92 10/03/22 10:05 Resp 20 10/03/22 07:18 BP 101/72 10/03/22 07:18 Pulse Ox 93 L 10/03/22 07:18 FiO2 Intake & Output 10/02/22 10/03/22 10/03/22 18:59 06:59 18:59 Output Total 2750 900 500 Balance -2750 -900 -500 Weight 106 kg 105.6 kg Output: Urine 1550 900 500 Stool 1200 Other: # Voids 3 # Bowel Movements 1 - Exam GENERAL EXAM: Alert, 77-year-old male patient, on room air, ambulating in his room, comfortable in no apparent distress. HEAD: Normocephalic. EYES: Normal reaction of pupils, equal size. NOSE: Clear with pink turbinates. THROAT: No erythema or exudates. NECK: No masses, no JVD. CHEST: No chest wall deformity. LUNGS: Equal air entry with no crackles, wheeze, rhonchi or dullness. CVS: S1 and S2 normal with no audible murmur, regular rhythm. ABDOMEN: No hepatosplenomegaly, normal bowel sounds, no guarding or rigidity. SPINE: No scoliosis or deformity SKIN: No rashes CENTRAL NERVOUS SYSTEM: No focal deficits, tone is normal in all 4 extremities. EXTREMITIES: There is no peripheral edema. No clubbing, no cyanosis. Peripheral pulses are intact. - Labs CBC & Chem 7: 10/02/22 05:36 10/03/22 06:35 Labs: Abnormal Lab Results - Last 24 Hours (Table) 10/02/22 10/02/22 10/03/22 Range/Units 16:32 20:48 05:53 Sodium (135-145) mmol/L Chloride (96-109) mmol/L BUN (9.0-27.0) mg/dL Creatinine (0.6-1.5) mg/dL Est GFR (CKD-EPI)AfAm (60.0-200.0) Est GFR (CKD-EPI)NonAf (60.0-200.0) BUN/Creatinine Ratio (12.00-20.00) Ratio Glucose (70-110) mg/dL POC Glucose (mg/dL) 326 H 341 H 296 H (70-110) mg/dL Magnesium (1.5-2.4) mg/dL 10/03/22 10/03/22 Range/Units 06:35 11:06 Sodium 129 L (135-145) mmol/L Chloride 92 L (96-109) mmol/L BUN 61.9 H (9.0-27.0) mg/dL Creatinine 1.8 H (0.6-1.5) mg/dL Est GFR (CKD-EPI)AfAm 40.9 L (60.0-200.0) Est GFR (CKD-EPI)NonAf 35.3 L (60.0-200.0) BUN/Creatinine Ratio 34.39 H (12.00-20.00) Ratio Glucose 363 H (70-110) mg/dL POC Glucose (mg/dL) 370 H (70-110) mg/dL Magnesium 2.6 H (1.5-2.4) mg/dL Microbiology - Last 24 Hours (Table) 10/01/22 07:03 Gram Stain - Final Sputum Sputum Culture - Final Methicillin resist S. aureus Assessment and Plan Assessment: Acute exacerbation of chronic systolic congestive heart failure, remains on IV diuretics Acute exacerbation of chronic obstructive pulmonary disease, currently stable. Chest x-ray reveals no acute pulmonary process. Sputum is positive for MRSA. Initiated on vancomycin. Recent hospitalization for COPD/CHF Coronary artery disease with previous coronary artery bypass graftingwith a LINDSEY to the LAD, previous PCI to the circumflex, left main and RCA Ischemic cardiomyopathy Atrial fibrillation, anticoagulated with Eliquis Obesity Hypertension Hyperlipidemia Diabetes mellitus History of gout Hypothyroidism History of anemia Plan: The patient was seen and evaluated Labs and medications reviewed Sputum now positive for MRSA Initiate vancomycin Consult ID services Continue Symbicort, albuterol, steroids Stable and on room air We will continue to follow I have personally seen and examined the patient, performed the documentation and the assessment and plan as written. Number of minutes spent on the visit: 10.
[2022-10-03] MEDS: GABAPENTIN 300 MG CAP PO SCH ×2 (16:10→21:40)
[2022-10-03] MEDS: VANCOMYCIN 1,750 MG in SODIUM CHLORIDE 0.9% 500 ML 500 ML IVPB SCH (16:10)
[2022-10-03 17:18] LABS: Glucose,Whole Blood 288 mg/dL (70-110)
[2022-10-03 20:14] LABS: Glucose,Whole Blood 422 mg/dL (70-110)
[2022-10-03] MEDS: INSULIN DETEMIR (LEVEMIR) 100 UNIT/ML SYR SQ SCH (21:41)
[2022-10-03] MEDS: ATORVASTATIN 40 MG TAB PO SCH (21:41)
--- NOTE | 2022-10-03 23:19 | P.CONS ---
History of Present Illness - Reason for Consult Consult date: 10/03/22 - History of Present Illness Patient is a 77-year male with a past medical history significant for COPD, congestive heart failure atrial fibrillation hypertension presented to the hospital 5 days ago on 09/28/2022 for evaluation of increasing weakness shortness of breath on minimal exertion and also complaining of a cough, the patient cough is mild to moderate intensity with occasional sputum production which has been brownish to greenish no hemoptysis denies any pleuritic chest pain the patient denies any nausea no vomiting no abdominal pain or any diarrhea patient on presentation to the hospital was afebrile and no fever has been recorded over the last 5 days the patient has been here patient is currently breathing comfortably on room air satting 94 to 96% patient did have elevated white count though trending down did have elevated BUN and creatinine procalcitonin was done on 09 29 2 was 0.18 COVID testing was negative urine was negative patient did have a sputum which came back positive with MRSA patient did have a chest x-ray on admission coarse interstitial pulmonary density and minimal pleural fluid he also have a CT angiogram of the chest on 09/28/2022 that was negative for PE did shows patchy bilateral pulmonary interstitial infiltrate and subsegmental atelectasis last chest x-ray was on 10/02/2022 which was chronic changes without evidence for acute process patient has been started on vancomycin infectious disease was consulted for further management of antibiotic therapy Past Medical History Past Medical History: Atrial Fibrillation, Asthma, Coronary Artery Disease (CAD), COPD, Diabetes Mellitus, Hypertension, Myocardial Infarction (CT), P neum[place] Additional Past Medical History / Comment(s): left knee cap broken, pancreatitis, /gallstones Last Myocardial Infarction Date:: 2017 History of Any Multi-Drug Resistant Organisms: None Reported Past Surgical History: Cholecystectomy, Coronary Bypass/CABG, Heart Catheterization With Stent, Hernia Repair, Orthopedic Surgery Additional Past Surgical History / Comment(s): lt knee replacement(total of 4 sx), colonoscopy, Left knee cap removal with antibiotic spacers placed, Past Anesthesia/Blood Transfusion Reactions: No Reported Reaction Date of Last Stent Placement:: 10/2015 Past Psychological History: No Psychological Hx Reported Additional Psychological History / Comment(s): Pt resides with his spouse. He uses a walker to ambulate. Smoking Status: Former smoker Past Alcohol Use History: Occasional Additional Past Alcohol Use History / Comment(s): Pt started smoking as teen and quit 1983 smoked 2 ppd. Pt usually has one drink a night. Past Drug Use History: None Reported - Past Family History Father Family Medical History: Diabetes Mellitus Mother Family Medical History: CVA/TIA, Hypertension Medications and Allergies Home Medications Medication Instructions Recorded Confirmed Type allopurinoL [Zyloprim] 300 mg PO DAILY 08/07/17 09/28/22 History Gabapentin 1,200 mg PO TID 10/02/18 09/28/22 History Levothyroxine Sodium [Synthroid] 112 mcg PO DAILY 10/02/18 09/28/22 History Levothyroxine Sodium [Synthroid] 125 mcg PO DAILY 10/02/18 09/28/22 History Nitroglycerin Sl Tabs [Nitrostat] 0.4 mg SL Q5M PRN 10/02/18 09/28/22 History carvediloL [Coreg] 6.25 mg PO BID-W/MEALS 03/17/21 09/28/22 History Atorvastatin [Lipitor] 40 mg PO HS 10/19/21 09/28/22 History Albuterol Nebulized [Ventolin 1.25 mg INHALATION DIRECTED PRN 09/28/22 09/28/22 History Nebulized (Accuneb)] Apixaban [Eliquis] 5 mg PO BID 09/28/22 09/28/22 History Budesonide/Formoterol Fumarate 2 puff INHALATION RT-BID 09/28/22 09/28/22 History [Symbicort 80-4.5 Mcg Inhaler] Cefdinir [Omnicef] 300 mg PO Q12HR 09/28/22 09/28/22 History Glimepiride [Amaryl] 2 mg PO W/BRKFST 09/28/22 09/28/22 History HYDROcodone/APAP 7.5-325MG [Round O 1 tab PO BID PRN 09/28/22 09/28/22 History 7.5-325] Magnesium Oxide [Mag-Ox] 400 mg PO BID 09/28/22 09/28/22 History Meclizine [Antivert] 12.5 mg PO TID PRN 09/28/22 09/28/22 History Omeprazole [PriLOSEC] 40 mg PO DAILY 09/28/22 09/28/22 History metFORMIN HCL [Glucophage] 500 mg PO BID 09/28/22 09/28/22 History predniSONE See Taper PO DAILY 09/28/22 09/28/22 History Allergies Allergy/AdvReac Type Severity Reaction Status Date / Time cephalexin [From Keflex] Allergy Unknown Verified 09/28/22 20:38 clopidogrel [From Plavix] Allergy Rash/Hives Verified 09/28/22 20:38 codeine Allergy Rash/Nausea Verified 09/28/22 20:38 & Vomiting Iodine and Iodide Containing Allergy Rash/Hives Verified 09/28/22 20:38 Produc levofloxacin [From Levaquin] Allergy urticaria/r Verified 09/28/22 20:38 belle shellfish derived [Shellfish] Allergy urticaria/r Verified 09/28/22 20:38 belle lisinopril AdvReac Angiodema Verified 09/28/22 20:38 of tongue oxycodone AdvReac Hallucinati Verified 09/28/22 20:38 ons solifenacin AdvReac Nausea & Verified 09/28/22 20:38 Vomiting Physical Exam Vitals: Vital Signs Temp Pulse Pulse Resp BP Pulse Ox 10/03/22 14:00 97.8 F 61 17 108/66 96 10/03/22 10:05 92 10/03/22 09:55 92 10/03/22 07:18 97.8 F 86 20 101/72 93 L 10/03/22 02:00 97.6 F 62 17 93/56 97 10/02/22 21:55 84 10/02/22 19:54 97.4 F L 85 16 117/79 94 L Intake and Output 10/03/22 10/03/22 10/03/22 06:59 14:59 22:59 Output Total 900 500 Balance -900 -500 Output: Urine 900 500 Other: Weight 105.6 kg Results CBC & Chem 7: 10/02/22 05:36 10/03/22 06:35 Labs: Abnormal Lab Results - Last 24 Hours (Table) 10/02/22 10/02/22 10/03/22 Range/Units 16:32 20:48 05:53 Sodium (135-145) mmol/L Chloride (96-109) mmol/L BUN (9.0-27.0) mg/dL Creatinine (0.6-1.5) mg/dL Est GFR (CKD-EPI)AfAm (60.0-200.0) Est GFR (CKD-EPI)NonAf (60.0-200.0) BUN/Creatinine Ratio (12.00-20.00) Ratio Glucose (70-110) mg/dL POC Glucose (mg/dL) 326 H 341 H 296 H (70-110) mg/dL Magnesium (1.5-2.4) mg/dL 10/03/22 10/03/22 Range/Units 06:35 11:06 Sodium 129 L (135-145) mmol/L Chloride 92 L (96-109) mmol/L BUN 61.9 H (9.0-27.0) mg/dL Creatinine 1.8 H (0.6-1.5) mg/dL Est GFR (CKD-EPI)AfAm 40.9 L (60.0-200.0) Est GFR (CKD-EPI)NonAf 35.3 L (60.0-200.0) BUN/Creatinine Ratio 34.39 H (12.00-20.00) Ratio Glucose 363 H (70-110) mg/dL POC Glucose (mg/dL) 370 H (70-110) mg/dL Magnesium 2.6 H (1.5-2.4) mg/dL Microbiology - Last 24 Hours (Table) 10/01/22 07:03 Gram Stain - Final Sputum Sputum Culture - Final Methicillin resist S. aureus Assessment and Plan Plan: 1patient with a positive sputum culture with MRSA in this patient present to the hospital about 5 days ago with increasing shortness of breath however the patient did not have any fever CT angiogram of the chest did not show any consolidation did show some interstitial infiltrate and last chest x-ray done on 10/02/2022 did not show any acute process patient did have a very mildly elevated procalcitonin 0.18 on 09/29/2022 clinically not behaving as pneumonia with concern for possible purulent tracheobronchitis 2patient with multiple antibiotic allergies that would limit the number of antibiotics safe to use. 3patient with renal insufficiency limiting the number of antibiotics safe to use. 4we will repeat his CRP and procalcitonin with a.m. lab 5vancomycin pharmacy to dose target trough of 15 while watching kidney function and vancomycin trough closely We will follow on clinical condition and cultures to further adjust medication if needed Thank you for this consultation will follow this patient along with you Time with Patient: Greater than 30
[2022-10-04] MEDS: LEVOTHYROXINE 112 MCG TAB PO SCH (05:31)
[2022-10-04] MEDS: LEVOTHYROXINE 125 MCG TAB PO SCH (05:31)
[2022-10-04 06:28] LABS: Glucose,Whole Blood 242 mg/dL (70-110)
[2022-10-04] MEDS: INSULIN ASPART (NovoLOG) 100 UNIT/ML VIAL SQ SCH ×8 (06:44→22:26)
[2022-10-04] MEDS: carvediloL 6.25 MG TAB PO SCH ×2 (06:44→17:57)
[2022-10-04] MEDS: MIDODRINE 5 MG TAB PO SCH ×3 (06:44→17:58)
[2022-10-04] MEDS: PANTOPRAZOLE 40 MG TABLET PO SCH (06:44)
[2022-10-04] MEDS: GLIMEPIRIDE 2 MG TAB PO SCH (06:44)
[2022-10-04] MEDS: SODIUM BICARBONATE TAB 650 MG TAB PO SCH (08:29)
[2022-10-04] MEDS: APIXABAN 5 MG TAB PO SCH ×2 (08:29→21:16)
[2022-10-04] MEDS: allopurinoL 300 MG TAB PO SCH (08:29)
[2022-10-04] MEDS: FUROSEMIDE 40 MG TAB PO SCH (08:29)
[2022-10-04] MEDS: GABAPENTIN 300 MG CAP PO SCH (08:29)
[2022-10-04] MEDS: NYSTATIN 100,000 UNIT/ML SUSP 500,000 UNIT/5 ML CUP PO SCH ×4 (08:29→21:16)
[2022-10-04] MEDS: predniSONE 20 MG TAB PO SCH (08:30)
[2022-10-04] MEDS: ALBUTEROL NEBULIZED 2.5 MG/3 ML INHALATION PRN (09:47)
[2022-10-04] MEDS: SYMBICORT 160-4.5 MCG INHALER INHALATION SCH ×2 (09:47→21:30)
[2022-10-04 10:34] LABS: Basophils # (A) 0.03 X 10*3/uL (0.00-0.10); Basophils % (A) 0.1 %; Eosinophils # (A) 0.07 X 10*3/uL (0.04-0.35); Eosinophils % (A) 0.3 %; HCT 44.6 % (39.6-50.0); HGB 15.3 g/dL (13.0-17.0); Immature Grans, Automated 0.5 %; Lymphocytes # (A) 1.89 X 10*3/uL (0.90-5.00); Lymphocytes % (A) 9.3 %; MCH 31.7 pg (27.0-32.0); MCHC 34.3 g/dL (32.0-37.0); MCV 92.5 fL (80.0-97.0); Mean Platelet Volume 10.5 fL (9.5-12.2); Monocytes % (A) 5.4 %; NRBC Per 100 WBC 0 /100 WBCS (0.0-0.0); Neutrophils # (A) 17.06 X 10*3/uL (1.80-7.70); Neutrophils % (A) 84.4 %; Platelet Count 115 X 10*3/uL (140-440); RBC 4.82 X 10*6/uL (4.40-5.60); RDW 13.5 % (11.5-14.5); WBC 20.26 X 10*3/uL (4.50-10.00)
[2022-10-04 11:00] LABS: Magnesium 2.1 mg/dL (1.5-2.4)
[2022-10-04 11:01] LABS: C Reactive Protein <0.30 mg/dL (0.00-0.80)
[2022-10-04 11:14] LABS: ALT 53 U/L (10-49); AST 18 U/L (14-35); African American GFR (CKD) 50.9 (60.0-200.0); Albumin 3.1 g/dL (3.8-4.9); Albumin/Globulin Ratio 1.72 (1.60-3.17); Alkaline Phosphatase 64 U/L (41-126); Calcium 8.4 mg/dL (8.7-10.3); Carbon Dioxide 27.4 mmol/L (20.0-27.5); Chloride 96 mmol/L (96-109); Globulin 1.8 g/dL (1.6-3.3); Glucose 265 mg/dL (70-110); Potassium 4.7 mmol/L (3.5-5.5); Sodium 133 mmol/L (135-145); Total Protein 4.9 g/dL (6.2-8.2)
--- NOTE | 2022-10-04 11:26 | P.PN ---
Subjective Progress Note Date: 10/04/22 This is a pleasant 76-year-old male patient with a known history of chronic systolic congestive heart failure with an ejection fraction 20-25%, pulmonary hypertension, hypothyroidism, diabetes mellitus, atrial fibrillation, hypertension, hyperlipidemia, gout, anemia. He was recently hospitalized at [facility] for shortness of breath and was told that he has chronic obstructive pulmonary disease and suspected obstructive sleep apnea. He is maintained on Trelegy and albuterol in the outpatient setting. He was just discharged home from the hospital on 09/26/2022. He represented here in the emergency room yesterday with worsening shortness of breath cough and congestion. chest x-ray shows coarse interstitial pulmonary density and minimal pleural fluid. Some underlying interstitial fibrosis not excluded. CT angiogram ruled out pulmonary embolism. There is again noted patchy bilateral pulmonary interstitial infiltrates and subsegmental atelectasis. No suspicious pulmonary mass. Borderline cardiomegaly. EKG reveals atrial fibrillation/flutter. He is anticoagulated with Eliquis. He was initiated on Symbicort, albuterol, IV site Medrol. He is initiated on IV diuretics. Empiric antibiotics in the form of azithromycin. He is seen today in consultation on the regular medical floor. Currently sitting up in bed. Awake and alert in no acute distress. Naintaining good O2 saturation in the mid 90s on room air. Afebrile. White count 9.9. Hemoglobin 16.7. Platelets 100,000. Sodium 127. Potassium 5.2. Bicarb 18. BUN 50. Creatinine 1.48. Glucose 400. Procalcitonin 0.18. Reevaluated today on 09/30/22, patient is feeling better, breathing easier, hardly any shortness of breath, patient is now on room air. O2 sats is 92%. WBC count is 18.1 hemoglobin is 15.8, electrolytes are abnormal low sodium of 126 potassium is 5.5 blood sugar is abnormal is up to 451, poorly controlled. Patient is being followed by nephrology for his hyperkalemia, I believe his hyponatremia is mostly hypovolemic in nature plus there is a component of pseudohyponatremia because of his elevated blood sugar. The patient is seen today 10/01/2022 in follow-up on the regular medical floor. He sitting up in bed. Awake and alert in no acute distress. Maintaining good O2 saturations in the 90s on room air. Sputum culture is pending. White count 18.6. Hemoglobin 16.3. Sodium 125. Potassium 5.4. BUN 77. Creatinine 1.8. Glucose 400. He is continued on Symbicort and albuterol along with a prednisone taper. Anticoagulated with Eliquis. Remains on IV diuretics. Ultrasound of the bladder did not reveal any renal mass or obstruction. Renal atrophy. He remains in a -3.6 L balance. The patient is seen today 10/02/2022 in follow-up on the regular medical floor. He is currently resting comfortably in bed. Maintaining O2 saturations in the 90s on room air. White count 14.8. Hemoglobin 15.4. Platelets 128. Sodium 130. Potassium 5.4. BUN 72. Creatinine 1.7. Glucose 297. Chest x-ray reveals chronic changes without acute pulmonary process. No focal consolidation. No pneumothorax. No evidence of effusion. He remains on Symbicort and albuterol. Continued on IV diuretics. Remains on a low-salt diet. 1200 ML fluid restriction per nephrology recommendations. He did receive Lokelma today. Currently in a -2.2 L balance. The patient is seen today 10/03/2022 in follow-up on the regular medical floor. He's been up ambulating in his room. He is maintaining good O2 saturations in the 90s on room air. His sputum is positive for MRSA. Sodium 129. Potassium 5.1. Bicarb 24. BUN 62. Creatinine 1.8. Glucose 363. He is continued on Symbicort, DuoNeb inhalations. Antiplatelet with Eliquis. Switch to oral diuretics. Insulin being adjusted. The patient is seen today 10/04/2022 in follow-up on the regular medical floor. He is currently sitting up at the bedside. Awake and alert in no acute distress. Continues to maintain good O2 saturations in the 90s on room air. Sputum culture was positive for MRSA. White count 20.2. Hemoglobin 15.3. Platelets 1:15. Sodium 133. Potassium 4.7. BUN 51. Creatinine 1.5. AST 18. ALT 53. Pro-calcitonin 0.07. He is continued on vancomycin. He is continued on Symbicort, DuoNeb inhalations. Anticoagulated with Eliquis. ID services are on the case. Objective - Vital Signs Vital signs: Vital Signs Temp 97.5 F L 10/04/22 07:35 Pulse 80 10/04/22 10:01 Resp 18 10/04/22 07:35 BP 105/69 10/04/22 07:35 Pulse Ox 94 L 10/04/22 07:35 FiO2 Intake & Output 10/03/22 10/04/22 10/04/22 18:59 06:59 18:59 Output Total 1125 Balance -1125 Weight 105.8 kg Output: Urine 1125 Other: # Voids 4 # Bowel Movements 1 - Exam GENERAL EXAM: Alert, 77-year-old male patient, on room air, comfortable in no apparent distress. HEAD: Normocephalic. EYES: Normal reaction of pupils, equal size. NOSE: Clear with pink turbinates. THROAT: No erythema or exudates. NECK: No masses, no JVD. CHEST: No chest wall deformity. LUNGS: Equal air entry with no crackles, wheeze, rhonchi or dullness. CVS: S1 and S2 normal with no audible murmur, regular rhythm. ABDOMEN: No hepatosplenomegaly, normal bowel sounds, no guarding or rigidity. SPINE: No scoliosis or deformity SKIN: No rashes CENTRAL NERVOUS SYSTEM: No focal deficits, tone is normal in all 4 extremities. EXTREMITIES: There is no peripheral edema. No clubbing, no cyanosis. Peripheral pulses are intact. - Labs CBC & Chem 7: 10/04/22 06:53 10/04/22 06:53 Labs: Abnormal Lab Results - Last 24 Hours (Table) 10/02/22 10/03/22 10/03/22 Range/Units 05:36 17:17 20:13 WBC (4.50-10.00) X 10*3/uL Plt Count (140-440) X 10*3/uL Immature Gran # (0.00-0.04) X 10*3/uL Neutrophils # (1.80-7.70) X 10*3/uL Monocytes # (0.20-1.00) X 10*3/uL Sodium (135-145) mmol/L Anion Gap (10.00-18.00) mmol/L BUN (9.0-27.0) mg/dL Est GFR (CKD-EPI)AfAm (60.0-200.0) Est GFR (CKD-EPI)NonAf (60.0-200.0) BUN/Creatinine Ratio (12.00-20.00) Ratio Glucose (70-110) mg/dL POC Glucose (mg/dL) 288 H 422 H (70-110) mg/dL Hemoglobin A1c 9.7 H (0.0-6.0) % Calcium (8.7-10.3) mg/dL ALT (10-49) U/L Total Protein (6.2-8.2) g/dL Albumin (3.8-4.9) g/dL 10/04/22 10/04/22 10/04/22 Range/Units 06:26 06:53 06:53 WBC 20.26 H (4.50-10.00) X 10*3/uL Plt Count 115 L (140-440) X 10*3/uL Immature Gran # 0.11 H (0.00-0.04) X 10*3/uL Neutrophils # 17.06 H (1.80-7.70) X 10*3/uL Monocytes # 1.10 H (0.20-1.00) X 10*3/uL Sodium 133 L (135-145) mmol/L Anion Gap 9.60 L (10.00-18.00) mmol/L BUN 51.0 H (9.0-27.0) mg/dL Est GFR (CKD-EPI)AfAm 50.9 L (60.0-200.0) Est GFR (CKD-EPI)NonAf 44.0 L (60.0-200.0) BUN/Creatinine Ratio 34.00 H (12.00-20.00) Ratio Glucose 265 H (70-110) mg/dL POC Glucose (mg/dL) 242 H (70-110) mg/dL Hemoglobin A1c (0.0-6.0) % Calcium 8.4 L (8.7-10.3) mg/dL ALT 53 H (10-49) U/L Total Protein 4.9 L (6.2-8.2) g/dL Albumin 3.1 L (3.8-4.9) g/dL Microbiology - Last 24 Hours (Table) 10/01/22 07:03 Gram Stain - Final Sputum Sputum Culture - Final Methicillin resist S. aureus Assessment and Plan Assessment: Acute exacerbation of chronic systolic congestive heart failure, transitioned to oral diuretics Acute exacerbation of chronic obstructive pulmonary disease, currently stable. Chest x-ray reveals no acute pulmonary process. Sputum is positive for MRSA. Initiated on vancomycin. Recent hospitalization for COPD/CHF Coronary artery disease with previous coronary artery bypass graftingwith a LINDSEY to the LAD, previous PCI to the circumflex, left main and RCA Ischemic cardiomyopathy Atrial fibrillation, anticoagulated with Eliquis Obesity Hypertension Hyperlipidemia Diabetes mellitus History of gout Hypothyroidism History of anemia Plan: The patient was seen and evaluated Labs and medications reviewed Procalcitonin 0.07 Sputum positive for MRSA Initiated on vancomycin Consulted ID services Continue Symbicort, albuterol, steroids Stable and on room air We will continue to follow I have personally seen and examined the patient, performed the documentation and the assessment and plan as written. Number of minutes spent on the visit: 10.
[2022-10-04 11:36] LABS: Glucose,Whole Blood 207 mg/dL (70-110)
--- NOTE | 2022-10-04 11:56 | P.PN ---
Subjective Patient is seen in follow-up for acute kidney injury. Creatinine peaked at 2.0 on 09/30/2022 and is improved to 1.5 today. On IV Lasix. Good urine output. Cough improved. Denies chest pain. On room air. Vital signs are stable. General: Awake. No acute distress. HEENT: Head exam is unremarkable. LUNGS: Breath sounds decreased. HEART: Rate and Rhythm are regular. ABDOMEN: Soft, no distention. EXTREMITITES: No edema. Objective - Vital Signs Vital signs: Vital Signs Temp 97.5 F L 10/04/22 07:35 Pulse 80 10/04/22 10:01 Resp 18 10/04/22 07:35 BP 105/69 10/04/22 07:35 Pulse Ox 94 L 10/04/22 07:35 FiO2 Intake & Output 10/03/22 10/04/22 10/04/22 18:59 06:59 18:59 Output Total 1125 Balance -1125 Weight 105.8 kg Output: Urine 1125 Other: # Voids 4 # Bowel Movements 1 - Labs CBC & Chem 7: 10/04/22 06:53 10/04/22 06:53 Labs: Abnormal Lab Results - Last 24 Hours (Table) 10/02/22 10/03/22 10/03/22 Range/Units 05:36 17:17 20:13 WBC (4.50-10.00) X 10*3/uL Plt Count (140-440) X 10*3/uL Immature Gran # (0.00-0.04) X 10*3/uL Neutrophils # (1.80-7.70) X 10*3/uL Monocytes # (0.20-1.00) X 10*3/uL Sodium (135-145) mmol/L Anion Gap (10.00-18.00) mmol/L BUN (9.0-27.0) mg/dL Est GFR (CKD-EPI)AfAm (60.0-200.0) Est GFR (CKD-EPI)NonAf (60.0-200.0) BUN/Creatinine Ratio (12.00-20.00) Ratio Glucose (70-110) mg/dL POC Glucose (mg/dL) 288 H 422 H (70-110) mg/dL Hemoglobin A1c 9.7 H (0.0-6.0) % Calcium (8.7-10.3) mg/dL ALT (10-49) U/L Total Protein (6.2-8.2) g/dL Albumin (3.8-4.9) g/dL 10/04/22 10/04/22 10/04/22 Range/Units 06:26 06:53 06:53 WBC 20.26 H (4.50-10.00) X 10*3/uL Plt Count 115 L (140-440) X 10*3/uL Immature Gran # 0.11 H (0.00-0.04) X 10*3/uL Neutrophils # 17.06 H (1.80-7.70) X 10*3/uL Monocytes # 1.10 H (0.20-1.00) X 10*3/uL Sodium 133 L (135-145) mmol/L Anion Gap 9.60 L (10.00-18.00) mmol/L BUN 51.0 H (9.0-27.0) mg/dL Est GFR (CKD-EPI)AfAm 50.9 L (60.0-200.0) Est GFR (CKD-EPI)NonAf 44.0 L (60.0-200.0) BUN/Creatinine Ratio 34.00 H (12.00-20.00) Ratio Glucose 265 H (70-110) mg/dL POC Glucose (mg/dL) 242 H (70-110) mg/dL Hemoglobin A1c (0.0-6.0) % Calcium 8.4 L (8.7-10.3) mg/dL ALT 53 H (10-49) U/L Total Protein 4.9 L (6.2-8.2) g/dL Albumin 3.1 L (3.8-4.9) g/dL 10/04/22 Range/Units 11:34 WBC (4.50-10.00) X 10*3/uL Plt Count (140-440) X 10*3/uL Immature Gran # (0.00-0.04) X 10*3/uL Neutrophils # (1.80-7.70) X 10*3/uL Monocytes # (0.20-1.00) X 10*3/uL Sodium (135-145) mmol/L Anion Gap (10.00-18.00) mmol/L BUN (9.0-27.0) mg/dL Est GFR (CKD-EPI)AfAm (60.0-200.0) Est GFR (CKD-EPI)NonAf (60.0-200.0) BUN/Creatinine Ratio (12.00-20.00) Ratio Glucose (70-110) mg/dL POC Glucose (mg/dL) 207 H (70-110) mg/dL Hemoglobin A1c (0.0-6.0) % Calcium (8.7-10.3) mg/dL ALT (10-49) U/L Total Protein (6.2-8.2) g/dL Albumin (3.8-4.9) g/dL Microbiology - Last 24 Hours (Table) 10/01/22 07:03 Gram Stain - Final Sputum Sputum Culture - Final Methicillin resist S. aureus Assessment and Plan Plan: Assessment: 1. Acute kidney injury secondary to ATN secondary to cardiorenal syndrome. Also component of contrast-induced acute kidney injury as he received IV contrast on 09/28/2022. Right kidney atrophic. No hydronephrosis noted on ultrasound. UA benign. Creatinine peaked at 2.0 on 09/30/2020 20 is improved to 1.5 today. 2. Acute hypoxic respiratory failure secondary to volume overload and COPD exacerbation/pneumonia. 3. Hypervolemic hyponatremia with component of hypertonicity from hyperglycemia. Better. 4. Hyperkalemia secondary to hyperglycemia. Potassium is normal today. 5. Chronic kidney disease stage III with baseline creatinine 1-1.2. Etiology is nephrosclerosis. UA benign. Renal ultrasound showed atrophic right kidney w ith no evidence of hydronephrosis. 6. Metabolic acidosis secondary to acute kidney injury. On oral bicarbonate. 7. Diabetes mellitus. Exacerbated by steroids. Plan: Maintain oral Lasix. Low-salt diet and 1200 mL fluid restriction. Blood sugar control. Avoid nephrotoxins. Stop bicarb.
[2022-10-04] MEDS: GABAPENTIN 400 MG CAP PO SCH ×2 (12:15→19:35)
[2022-10-04] MEDS: VANCOMYCIN 1,750 MG in SODIUM CHLORIDE 0.9% 500 ML 500 ML IVPB SCH (15:37)
[2022-10-04 17:27] LABS: Glucose,Whole Blood 247 mg/dL (70-110)
[2022-10-04 20:21] LABS: Glucose,Whole Blood 511 mg/dL (70-110)
[2022-10-04] MEDS: INSULIN DETEMIR (LEVEMIR) 100 UNIT/ML SYR SQ SCH (20:38)
[2022-10-04] MEDS: ATORVASTATIN 40 MG TAB PO SCH (21:16)
[2022-10-04 21:51] LABS: Glucose,Whole Blood 554 mg/dL (70-110)
--- NOTE | 2022-10-04 23:10 | P.PN ---
Subjective Progress Note Date: 10/04/22 Principal diagnosis: Sputum MRSA Patient is a 77-year male with multiple comorbidities including COPD CHF atrial fibrillation presented to the hospital with increasing shortness of breath also have a cough sputum positive for MRSA. On today's evaluation that is 10/04/2022 the patient denies having any fever or any chills breathing comfortably on room air denies any chest pain and worsening cough or sputum production abdominal pain or diarrhea Objective - Vital Signs Vital signs: Vital Signs Temp 98.1 F 10/04/22 20:00 Pulse 85 10/04/22 20:00 Resp 18 10/04/22 20:00 BP 118/69 10/04/22 20:00 Pulse Ox 92 L 10/04/22 20:00 FiO2 Intake & Output 10/04/22 10/04/22 10/05/22 06:59 18:59 06:59 Intake Total 1310 Balance 1310 Weight 105.8 kg Intake: Oral 1310 Other: Voiding Method Urinal # Voids 4 6 # Bowel Movements 1 - Exam GENERAL DESCRIPTION: Elderly male lying in bed, no distress. No tachypnea or accessory muscle of respiration use. LUNGS: Unlabored breathing decreased intensity of breath sounds occasional wheeze HEART: S1, S2, regular rate and rhythm. No loud murmur ABDOMEN: Soft, no tenderness , guarding or rigidity, no organomegaly EXTREMITIES: No edema of feet. - Labs CBC & Chem 7: 10/04/22 06:53 10/04/22 06:53 Labs: Abnormal Lab Results - Last 24 Hours (Table) 10/04/22 10/04/22 10/04/22 Range/Units 06:26 06:53 06:53 WBC 20.26 H (4.50-10.00) X 10*3/uL Plt Count 115 L (140-440) X 10*3/uL Immature Gran # 0.11 H (0.00-0.04) X 10*3/uL Neutrophils # 17.06 H (1.80-7.70) X 10*3/uL Monocytes # 1.10 H (0.20-1.00) X 10*3/uL Sodium 133 L (135-145) mmol/L Anion Gap 9.60 L (10.00-18.00) mmol/L BUN 51.0 H (9.0-27.0) mg/dL Est GFR (CKD-EPI)AfAm 50.9 L (60.0-200.0) Est GFR (CKD-EPI)NonAf 44.0 L (60.0-200.0) BUN/Creatinine Ratio 34.00 H (12.00-20.00) Ratio Glucose 265 H (70-110) mg/dL POC Glucose (mg/dL) 242 H (70-110) mg/dL Calcium 8.4 L (8.7-10.3) mg/dL ALT 53 H (10-49) U/L Total Protein 4.9 L (6.2-8.2) g/dL Albumin 3.1 L (3.8-4.9) g/dL 10/04/22 10/04/22 10/04/22 Range/Units 11:34 17:25 20:18 WBC (4.50-10.00) X 10*3/uL Plt Count (140-440) X 10*3/uL Immature Gran # (0.00-0.04) X 10*3/uL Neutrophils # (1.80-7.70) X 10*3/uL Monocytes # (0.20-1.00) X 10*3/uL Sodium (135-145) mmol/L Anion Gap (10.00-18.00) mmol/L BUN (9.0-27.0) mg/dL Est GFR (CKD-EPI)AfAm (60.0-200.0) Est GFR (CKD-EPI)NonAf (60.0-200.0) BUN/Creatinine Ratio (12.00-20.00) Ratio Glucose (70-110) mg/dL POC Glucose (mg/dL) 207 H 247 H 511 H (70-110) mg/dL Calcium (8.7-10.3) mg/dL ALT (10-49) U/L Total Protein (6.2-8.2) g/dL Albumin (3.8-4.9) g/dL 10/04/22 Range/Units 21:50 WBC (4.50-10.00) X 10*3/uL Plt Count (140-440) X 10*3/uL Immature Gran # (0.00-0.04) X 10*3/uL Neutrophils # (1.80-7.70) X 10*3/uL Monocytes # (0.20-1.00) X 10*3/uL Sodium (135-145) mmol/L Anion Gap (10.00-18.00) mmol/L BUN (9.0-27.0) mg/dL Est GFR (CKD-EPI)AfAm (60.0-200.0) Est GFR (CKD-EPI)NonAf (60.0-200.0) BUN/Creatinine Ratio (12.00-20.00) Ratio Glucose (70-110) mg/dL POC Glucose (mg/dL) 554 H (70-110) mg/dL Calcium (8.7-10.3) mg/dL ALT (10-49) U/L Total Protein (6.2-8.2) g/dL Albumin (3.8-4.9) g/dL Assessment and Plan (1) MRSA (methicillin resistant staph aureus) culture positive Current Visit: Yes Status: Acute Code(s): Z22.322 - CARRIER OR SUSPECTED CARRIER OF METHICILLIN RESIS STAPH SNOMED Code(s): 448793591 Plan: 1patient with a positive sputum culture with MRSA in this patient present to the hospital about 5 days ago with increasing shortness of breath however the patient did not have any fever CT angiogram of the chest did not show any consolidation did show some interstitial infiltrate and last chest x-ray done on 10/02/2022 did not show any acute process patient did have a very mildly elevated procalcitonin 0.18 on 09/29/2022 clinically not behaving as pneumonia with concern for possible purulent tracheobronchitis 2patient with multiple antibiotic allergies that would limit the number of a ntibiotics safe to use. 3patient with renal insufficiency limiting the number of antibiotics safe to use. 4Patient did have a normal CRP and a procalcitonin that would go against deep infection/ pneumonia with a positive sputum culture likely representing tracheobronchitis 5patient to continue the vancomycin while watching his kidney function closely however no plan for IV antibiotic on discharge Time with Patient: Less than 30
[2022-10-05 01:47] LABS: Glucose,Whole Blood 376 mg/dL (70-110)
[2022-10-05] MEDS: LEVOTHYROXINE 125 MCG TAB PO SCH (05:20)
[2022-10-05] MEDS: LEVOTHYROXINE 112 MCG TAB PO SCH (05:20)
[2022-10-05 06:28] LABS: Glucose,Whole Blood 275 mg/dL (70-110)
[2022-10-05] MEDS: PANTOPRAZOLE 40 MG TABLET PO SCH (07:00)
[2022-10-05] MEDS: MIDODRINE 5 MG TAB PO SCH ×3 (07:00→17:17)
[2022-10-05] MEDS: carvediloL 6.25 MG TAB PO SCH ×2 (07:00→17:17)
[2022-10-05] MEDS: INSULIN ASPART (NovoLOG) 100 UNIT/ML VIAL SQ SCH ×9 (07:01→23:05)
[2022-10-05] MEDS: FUROSEMIDE 40 MG TAB PO SCH (09:04)
[2022-10-05] MEDS: predniSONE 20 MG TAB PO SCH (09:04)
[2022-10-05] MEDS: APIXABAN 5 MG TAB PO SCH ×2 (09:04→23:02)
[2022-10-05] MEDS: allopurinoL 300 MG TAB PO SCH (09:04)
[2022-10-05] MEDS: NYSTATIN 100,000 UNIT/ML SUSP 500,000 UNIT/5 ML CUP PO SCH ×4 (09:04→23:02)
[2022-10-05] MEDS: SYMBICORT 160-4.5 MCG INHALER INHALATION SCH ×2 (09:06→20:49)
[2022-10-05] MEDS: GLIMEPIRIDE 2 MG TAB PO SCH (09:53)
--- NOTE | 2022-10-05 10:23 | P.PN ---
Subjective Progress Note Date: 10/05/22 Patrick Banuelos, is a 76-year-old male who presented to [facility] emergency room with a chief complaint of worsening shortness of breath He was evaluated in the emergency room vital examination on presentation revealed a temperature of 97.7 pulse 90 respiration 18 blood pressure 127/77 pu lse ox 98% on room air Laboratory data revealed a white blood count of 16.7 hemoglobin 15.9 platelet count 119 sodium 127 potassium 5.8 chloride 103 CO2 24 BUN 13 and creatinine 1.2 Testing in the emergency room revealed chest x-ray done in the emergency room reveals coarse interstitial pulmonary density and minimal pleural fluid and probable pulmonary interstitial fibrosis, CT angiogram of the chest revealed no evidence of pulmonary embolism there was patchy bilateral pulmonary interstitial infiltrates Patient was admitted to medical floor for further evaluation and treatment. On 09/30/2022 patient is alert and oriented 3. Patient reports some improvement with shortness of breath. Patient remains on IV Lasix and IV steroids. Sodium also low at 126 nephrology services have been consulted. Patient denies chest pain. Patient denies nausea vomiting or diarrhea. Patient denies any urinary burning or frequency On 10/01/2022 patient was seen and examined on the medical floor he is alert and oriented 3 in no apparent distress he is still complaining of shortness of breath with activity otherwise he denies any complaints there is no fever or chills no headache or dizziness no chest pain he has occasional cough no nausea or vomiting no abdominal pain no diarrhea and no urinary symptoms. He is maintained on IV Lasix IV steroids and IV Zithromax pulmonary cardiology and nephrology are following, input reviewed carefully will recheck labs and chest x-ray in a.m. On 10/02/2022 patient was seen and examined on the medical floor he is alert and oriented 3 in no apparent distress there is no fever or chills no headache or dizziness he is still complaining of shortness of breath with any activity there is no nausea or vomiting no abdominal pain no diarrhea no blood in the stools no burning with urination no frequency or urgency and no hematuria he is still maintained on IV Lasix, nephrology are following 10/03/2022 patient is alert and oriented 3. Patient reports some improvement shortness of breath. Patient remains on IV diuretics. Sodium 129, creatinine 1.8. Nephrology services are following. Temp 97.8, heart rate 86, respiratory rate 20, blood pressure 101/72 with pulse ox 93%. Blood sugars remain high will add Lantus 10 units ordered hemoglobin A1c On 10/05/2022 patient is alert and oriented 3. Patient still having elevated blood sugars will increase to 15 units. Patient also noted to have an elevated white blood cell count will cut prednisone down to 10. Patient remains on IV vancomycin. Infectious disease, nephrology and pulmonary services are following. Patient reports improvement with shortness of breath. Patient denies chest pain. Patient denies nausea vomiting or diarrhea. Patient denies any urinary burning or frequency Objective - Vital Signs Vital signs: Vital Signs Temp 99 F 10/05/22 08:00 Pulse 81 10/05/22 08:00 Resp 17 10/05/22 08:00 BP 108/65 10/05/22 08:00 Pulse Ox 94 L 10/05/22 08:00 FiO2 Intake & Output 10/04/22 10/05/22 10/05/22 18:59 06:59 18:59 Intake Total 1310 Balance 1310 Intake: Oral 1310 Other: Voiding Method Urinal # Voids 6 - Exam In general patient is alert and oriented x 3 in no distress HEENT head normocephalic and atraumatic Neck is supple no JVD no goiter no lymphadenopathy no carotid bruit Chest examination reveals few scattered rhonchi in both lung fuentes no wheezing. Cardiac exam reveals regular heart sounds S1 and S2 no gallops no murmurs Abdomen is soft nontender no organomegaly with normal bowel sounds Extremity exam reveals no edema no cyanosis or clubbing Neurological examination reveals no gross focal deficits. - Labs CBC & Chem 7: 10/04/22 06:53 10/04/22 06:53 Labs: Abnormal Lab Results - Last 24 Hours (Table) 10/04/22 10/04/22 10/04/22 Range/Units 06:53 06:53 11:34 WBC 20.26 H (4.50-10.00) X 10*3/uL Plt Count 115 L (140-440) X 10*3/uL Immature Gran # 0.11 H (0.00-0.04) X 10*3/uL Neutrophils # 17.06 H (1.80-7.70) X 10*3/uL Monocytes # 1.10 H (0.20-1.00) X 10*3/uL Sodium 133 L (135-145) mmol/L Anion Gap 9.60 L (10.00-18.00) mmol/L BUN 51.0 H (9.0-27.0) mg/dL Est GFR (CKD-EPI)AfAm 50.9 L (60.0-200.0) Est GFR (CKD-EPI)NonAf 44.0 L (60.0-200.0) BUN/Creatinine Ratio 34.00 H (12.00-20.00) Ratio Glucose 265 H (70-110) mg/dL POC Glucose (mg/dL) 207 H (70-110) mg/dL Calcium 8.4 L (8.7-10.3) mg/dL ALT 53 H (10-49) U/L Total Protein 4.9 L (6.2-8.2) g/dL Albumin 3.1 L (3.8-4.9) g/dL 10/04/22 10/04/22 10/04/22 Range/Units 17:25 20:18 21:50 WBC (4.50-10.00) X 10*3/uL Plt Count (140-440) X 10*3/uL Immature Gran # (0.00-0.04) X 10*3/uL Neutrophils # (1.80-7.70) X 10*3/uL Monocytes # (0.20-1.00) X 10*3/uL Sodium (135-145) mmol/L Anion Gap (10.00-18.00) mmol/L BUN (9.0-27.0) mg/dL Est GFR (CKD-EPI)AfAm (60.0-200.0) Est GFR (CKD-EPI)NonAf (60.0-200.0) BUN/Creatinine Ratio (12.00-20.00) Ratio Glucose (70-110) mg/dL POC Glucose (mg/dL) 247 H 511 H 554 H (70-110) mg/dL Calcium (8.7-10.3) mg/dL ALT (10-49) U/L Total Protein (6.2-8.2) g/dL Albumin (3.8-4.9) g/dL 10/05/22 10/05/22 Range/Units 01:46 06:27 WBC (4.50-10.00) X 10*3/uL Plt Count (140-440) X 10*3/uL Immature Gran # (0.00-0.04) X 10*3/uL Neutrophils # (1.80-7.70) X 10*3/uL Monocytes # (0.20-1.00) X 10*3/uL Sodium (135-145) mmol/L Anion Gap (10.00-18.00) mmol/L BUN (9.0-27.0) mg/dL Est GFR (CKD-EPI)AfAm (60.0-200.0) Est GFR (CKD-EPI)NonAf (60.0-200.0) BUN/Creatinine Ratio (12.00-20.00) Ratio Glucose (70-110) mg/dL POC Glucose (mg/dL) 376 H 275 H (70-110) mg/dL Calcium (8.7-10.3) mg/dL ALT (10-49) U/L Total Protein (6.2-8.2) g/dL Albumin (3.8-4.9) g/dL Assessment and Plan Plan: Acute exacerbation of chronic systolic congestive heart failure, with known history of ischemic cardiomyopathy. Acute exacerbation of chronic obstructive pulmonary disease Chest x-ray suspicious for pneumonia patient was started on IV Zithromax he has multiple antibiotic ALLERGIES Coronary artery disease with previous coronary artery bypass graft surgery Atrial fibrillation, maintained on Eliquis Eliquis Underlying history of Diabetes mellitus. Elevated blood sugars. Will add Lantus 10 units at night and order hemoglobin A1c Underlying history of hypertension Underlying history of hyperlipidemia Underlying history of hypothyroidism Underlying history of gout At this time patient is admitted to medical floor Home medications reviewed and reordered He was started on IV antibiotics Patient transition to oral Lasix Increase in Lantus Pulmonary and cardiology consultation requested For DVT prophylaxis, patient is on eliquis
--- NOTE | 2022-10-05 11:22 | P.PN ---
Subjective Progress Note Date: 10/05/22 This is a pleasant 76-year-old male patient with a known history of chronic systolic congestive heart failure with an ejection fraction 20-25%, pulmonary hypertension, hypothyroidism, diabetes mellitus, atrial fibrillation, hypertension, hyperlipidemia, gout, anemia. He was recently hospitalized at [facility] for shortness of breath and was told that he has chronic obstructive pulmonary disease and suspected obstructive sleep apnea. He is maintained on Trelegy and albuterol in the outpatient setting. He was just discharged home from the hospital on 09/26/2022. He represented here in the emergency room yesterday with worsening shortness of breath cough and congestion. chest x-ray shows coarse interstitial pulmonary density and minimal pleural fluid. Some underlying interstitial fibrosis not excluded. CT angiogram ruled out pulmonary embolism. There is again noted patchy bilateral pulmonary interstitial infiltrates and subsegmental atelectasis. No suspicious pulmonary mass. Borderline cardiomegaly. EKG reveals atrial fibrillation/flutter. He is anticoagulated with Eliquis. He was initiated on Symbicort, albuterol, IV site Medrol. He is initiated on IV diuretics. Empiric antibiotics in the form of azithromycin. He is seen today in consultation on the regular medical floor. Currently sitting up in bed. Awake and alert in no acute distress. Naintaining good O2 saturation in the mid 90s on room air. Afebrile. White count 9.9. Hemoglobin 16.7. Platelets 100,000. Sodium 127. Potassium 5.2. Bicarb 18. BUN 50. Creatinine 1.48. Glucose 400. Procalcitonin 0.18. Reevaluated today on 09/30/22, patient is feeling better, breathing easier, hardly any shortness of breath, patient is now on room air. O2 sats is 92%. WBC count is 18.1 hemoglobin is 15.8, electrolytes are abnormal low sodium of 126 potassium is 5.5 blood sugar is abnormal is up to 451, poorly controlled. Patient is being followed by nephrology for his hyperkalemia, I believe his hyponatremia is mostly hypovolemic in nature plus there is a component of pseudohyponatremia because of his elevated blood sugar. The patient is seen today 10/01/2022 in follow-up on the regular medical floor. He sitting up in bed. Awake and alert in no acute distress. Maintaining good O2 saturations in the 90s on room air. Sputum culture is pending. White count 18.6. Hemoglobin 16.3. Sodium 125. Potassium 5.4. BUN 77. Creatinine 1.8. Glucose 400. He is continued on Symbicort and albuterol along with a prednisone taper. Anticoagulated with Eliquis. Remains on IV diuretics. Ultrasound of the bladder did not reveal any renal mass or obstruction. Renal atrophy. He remains in a -3.6 L balance. The patient is seen today 10/02/2022 in follow-up on the regular medical floor. He is currently resting comfortably in bed. Maintaining O2 saturations in the 90s on room air. White count 14.8. Hemoglobin 15.4. Platelets 128. Sodium 130. Potassium 5.4. BUN 72. Creatinine 1.7. Glucose 297. Chest x-ray reveals chronic changes without acute pulmonary process. No focal consolidation. No pneumothorax. No evidence of effusion. He remains on Symbicort and albuterol. Continued on IV diuretics. Remains on a low-salt diet. 1200 ML fluid restriction per nephrology recommendations. He did receive Lokelma today. Currently in a -2.2 L balance. The patient is seen today 10/03/2022 in follow-up on the regular medical floor. He's been up ambulating in his room. He is maintaining good O2 saturations in the 90s on room air. His sputum is positive for MRSA. Sodium 129. Potassium 5.1. Bicarb 24. BUN 62. Creatinine 1.8. Glucose 363. He is continued on Symbicort, DuoNeb inhalations. Antiplatelet with Eliquis. Switch to oral diuretics. Insulin being adjusted. The patient is seen today 10/04/2022 in follow-up on the regular medical floor. He is currently sitting up at the bedside. Awake and alert in no acute distress. Continues to maintain good O2 saturations in the 90s on room air. Sputum culture was positive for MRSA. White count 20.2. Hemoglobin 15.3. Platelets 1:15. Sodium 133. Potassium 4.7. BUN 51. Creatinine 1.5. AST 18. ALT 53. Pro-calcitonin 0.07. He is continued on vancomycin. He is continued on Symbicort, DuoNeb inhalations. Anticoagulated with Eliquis. ID services are on the case. The patient is seen today 10/05/2022 in follow-up on the regular medical floor. He is currently sitting up at the bedside. Awake and alert in no acute distress. Continues to maintain good O2 saturations in the 90s on room air. Sputum was positive for MRSA. No clear evidence of pneumonia. Pro-calcitonin is 0.07. He is continued on vancomycin. Blood sugar 275. He is continued on Symbicort, albuterol, prednisone. He is anticoagulated with Eliquis. Objective - Vital Signs Vital signs: Vital Signs Temp 99 F 10/05/22 08:00 Pulse 81 10/05/22 08:00 Resp 17 10/05/22 08:00 BP 108/65 10/05/22 08:00 Pulse Ox 94 L 10/05/22 08:00 FiO2 Intake & Output 10/04/22 10/05/22 10/05/22 18:59 06:59 18:59 Intake Total 1310 Balance 1310 Intake: Oral 1310 Other: Voiding Method Urinal # Voids 6 - Exam GENERAL EXAM: Alert, 77-year-old male patient, on room air, sitting up at the bedside, comfortable in no apparent distress. HEAD: Normocephalic. EYES: Normal reaction of pupils, equal size. NOSE: Clear with pink turbinates. THROAT: No erythema or exudates. NECK: No masses, no JVD. CHEST: No chest wall deformity. LUNGS: Equal air entry with no crackles, wheeze, rhonchi or dullness. CVS: S1 and S2 normal with no audible murmur, regular rhythm. ABDOMEN: No hepatosplenomegaly, normal bowel sounds, no guarding or rigidity. SPINE: No scoliosis or deformity SKIN: No rashes CENTRAL NERVOUS SYSTEM: No focal deficits, tone is normal in all 4 extremities. EXTREMITIES: There is no peripheral edema. No clubbing, no cyanosis. Peripheral pulses are intact. - Labs CBC & Chem 7: 10/04/22 06:53 10/04/22 06:53 Labs: Abnormal Lab Results - Last 24 Hours (Table) 10/04/22 10/04/22 10/04/22 Range/Units 11:34 17:25 20:18 POC Glucose (mg/dL) 207 H 247 H 511 H (70-110) mg/dL 10/04/22 10/05/22 10/05/22 Range/Units 21:50 01:46 06:27 POC Glucose (mg/dL) 554 H 376 H 275 H (70-110) mg/dL Assessment and Plan Assessment: Acute exacerbation of chronic systolic congestive heart failure, transitioned to oral diuretics Acute exacerbation of chronic obstructive pulmonary disease, currently stable. Chest x-ray reveals no acute pulmonary process. Pro-calcitonin 0.07. Sputum is positive for MRSA. Initiated on vancomycin. Recent hospitalization for COPD/CHF Coronary artery disease with previous coronary artery bypass graftingwith a LINDSEY to the LAD, previous PCI to the circumflex, left main and RCA Ischemic cardiomyopathy Atrial fibrillation, anticoagulated with Eliquis Obesity Hypertension Hyperlipidemia Diabetes mellitus History of gout Hypothyroidism History of anemia Plan: The patient was seen and evaluated Medications reviewed Stable and on room air Home once transitioned to oral antibiotic I have personally seen and examined the patient, performed the documentation and the assessment and plan as written. Number of minutes spent on the visit: 10.
[2022-10-05 11:26] LABS: Basophils % (A) 0 %; Eosinophils # (A) 0.1 k/uL (0-0.7); Eosinophils % (A) 1 %; HCT 45.2 % (39.0-53.0); HGB 15.2 gm/dL (13.0-17.5); Lymphocytes # (A) 1.6 k/uL (1.0-4.8); Lymphocytes % (A) 9 %; MCH 31.9 pg (25.0-35.0); MCHC 33.7 g/dL (31.0-37.0); MCV 94.8 fL (80.0-100.0); Mean Platelet Volume 8.5; Monocytes # (A) 0.9 k/uL (0-1.0); Monocytes % (A) 5 %; Neutrophils # (A) 14.8 k/uL (1.3-7.7); Neutrophils % (A) 84 %; Platelet Count 127 k/uL (150-450); RBC 4.77 m/uL (4.30-5.90); RDW 13.2 % (11.5-15.5); WBC 17.7 k/uL (3.8-10.6)
[2022-10-05 11:35] LABS: ALT 43 U/L (4-49); AST 23 U/L (17-59); African American GFR (CKD) 61 (>60 ml/min/1.73 sqM); Albumin 2.9 g/dL (3.5-5.0); Albumin/Globulin Ratio 1.4; Alkaline Phosphatase 65 U/L (38-126); Anion Gap 6 mmol/L; Blood Urea Nitrogen 47 mg/dL (9-20); Calcium 7.9 mg/dL (8.4-10.2); Carbon Dioxide 27 mmol/L (22-30); Chloride 98 mmol/L (98-107); Globulin 2.1 g/dL; Glucose 239 mg/dL (74-99); Non-African American GFR(CKD) 52 (>60 ml/min/1.73 sqM); Potassium 4.3 mmol/L (3.5-5.1); Sodium 131 mmol/L (137-145); Total Bilirubin 1.1 mg/dL (0.2-1.3)
[2022-10-05 12:00] LABS: Glucose,Whole Blood 222 mg/dL (70-110)
--- NOTE | 2022-10-05 12:01 | P.PN ---
Subjective Patient is seen in follow-up for acute kidney injury. Creatinine peaked at 2.0 on 09/30/2022 and is improved to 1.3 today. On po Lasix. Good urine output. Denies chest pain. On room air. No active complaints at this time. Vital signs are stable. General: Awake. No acute distress. HEENT: Head exam is unremarkable. LUNGS: Breath sounds decreased. HEART: Rate and Rhythm are regular. ABDOMEN: Soft, no distention. EXTREMITITES: No edema. Objective - Vital Signs Vital signs: Vital Signs Temp 99 F 10/05/22 08:00 Pulse 81 10/05/22 08:00 Resp 17 10/05/22 08:00 BP 108/65 10/05/22 08:00 Pulse Ox 94 L 10/05/22 08:00 FiO2 Intake & Output 10/04/22 10/05/22 10/05/22 18:59 06:59 18:59 Intake Total 1310 Balance 1310 Intake: Oral 1310 Other: Voiding Method Urinal # Voids 6 - Labs CBC & Chem 7: 10/05/22 10:13 10/05/22 10:13 Labs: Abnormal Lab Results - Last 24 Hours (Table) 10/04/22 10/04/22 10/04/22 Range/Units 17:25 20:18 21:50 WBC (3.8-10.6) k/uL Plt Count (150-450) k/uL Neutrophils # (1.3-7.7) k/uL Sodium (137-145) mmol/L BUN (9-20) mg/dL Creatinine (0.66-1.25) mg/dL Glucose (74-99) mg/dL POC Glucose (mg/dL) 247 H 511 H 554 H (70-110) mg/dL Calcium (8.4-10.2) mg/dL Total Protein (6.3-8.2) g/dL Albumin (3.5-5.0) g/dL 10/05/22 10/05/22 10/05/22 Range/Units 01:46 06:27 10:13 WBC 17.7 H (3.8-10.6) k/uL Plt Count 127 L (150-450) k/uL Neutrophils # 14.8 H (1.3-7.7) k/uL Sodium (137-145) mmol/L BUN (9-20) mg/dL Creatinine (0.66-1.25) mg/dL Glucose (74-99) mg/dL POC Glucose (mg/dL) 376 H 275 H (70-110) mg/dL Calcium (8.4-10.2) mg/dL Total Protein (6.3-8.2) g/dL Albumin (3.5-5.0) g/dL 10/05/22 Range/Units 10:13 WBC (3.8-10.6) k/uL Plt Count (150-450) k/uL Neutrophils # (1.3-7.7) k/uL Sodium 131 L (137-145) mmol/L BUN 47 H (9-20) mg/dL Creatinine 1.30 H (0.66-1.25) mg/dL Glucose 239 H (74-99) mg/dL POC Glucose (mg/dL) (70-110) mg/dL Calcium 7.9 L (8.4-10.2) mg/dL Total Protein 5.0 L (6.3-8.2) g/dL Albumin 2.9 L (3.5-5.0) g/dL Assessment and Plan Plan: Assessment: 1. Acute kidney injury secondary to ATN secondary to cardiorenal syndrome. Also component of contrast-induced acute kidney injury as he received IV contrast on 09/28/2022. Right kidney atrophic. No hydronephrosis noted on ultrasound. UA benign. Creatinine peaked at 2.0 on 09/30/2020 20 is improved to 1.3 today. 2. Acute hypoxic respiratory failure secondary to volume overload and COPD exacerbation/pneumonia. 3. Hypervolemic hyponatremia with component of hypertonicity from hyperglycemia. Better. 4. Hyperkalemia secondary to hyperglycemia. Potassium is normal today. 5. Chronic kidney disease stage III with baseline creatinine 1-1.2. Etiology is nephrosclerosis. UA benign. Renal ultrasound showed atrophic right kidney with no evidence of hydronephrosis. 6. Metabolic acidosis secondary to acute kidney injury. On oral bicarbonate. 7. Diabetes mellitus. Exacerbated by steroids. Plan: Maintain oral Lasix. Low-salt diet and 1200 mL fluid restriction. Blood sugar control. Avoid nephrotoxins. Follow-up outpatient 1 week post discharge. Advised to monitor his weight closely at home and notify physician if develops edema or gains more than 3-4 pounds in one week duration.
[2022-10-05] MEDS: GABAPENTIN 400 MG CAP PO SCH ×2 (13:24→23:02)
[2022-10-05] MEDS: VANCOMYCIN 1,750 MG in SODIUM CHLORIDE 0.9% 500 ML 500 ML IVPB SCH (15:54)
[2022-10-05 16:56] LABS: Glucose,Whole Blood 391 mg/dL (70-110)
[2022-10-05 20:45] LABS: Glucose,Whole Blood 355 mg/dL (70-110)
[2022-10-05] MEDS ORDERED: INSULIN DETEMIR (LEVEMIR) 100 UNIT/ML SYR SQ SCH (21:00)
[2022-10-05] MEDS: ATORVASTATIN 40 MG TAB PO SCH (23:02)
[2022-10-05] MEDS: INSULIN DETEMIR (LEVEMIR) 100 UNIT/ML SYR SQ SCH (23:03)
--- NOTE | 2022-10-05 23:58 | P.PN ---
Subjective Progress Note Date: 10/05/22 Principal diagnosis: Sputum MRSA Patient is a 77-year male with multiple comorbidities including COPD CHF atrial fibrillation presented to the hospital with increasing shortness of breath also have a cough sputum positive for MRSA. On today's evaluation that is 10/05/2022 the patient remains to be afebrile, the patient is breathing comfortably on room air , the patient denies any chest pain and worsening cough or sputum production abdominal pain or diarrhea Objective - Vital Signs Vital signs: Vital Signs Temp 99 F 10/05/22 08:00 Pulse 81 10/05/22 08:00 Resp 17 10/05/22 08:00 BP 108/65 10/05/22 08:00 Pulse Ox 94 L 10/05/22 08:00 FiO2 Intake & Output 10/04/22 10/05/22 10/05/22 18:59 06:59 18:59 Intake Total 1310 Balance 1310 Intake: Oral 1310 Other: Voiding Method Urinal # Voids 6 - Exam GENERAL DESCRIPTION: Elderly male lying in bed, no distress. No tachypnea or accessory muscle of respiration use. LUNGS: Unlabored breathing decreased intensity of breath sounds occasional wheeze HEART: S1, S2, regular rate and rhythm. No loud murmur ABDOMEN: Soft, no tenderness , guarding or rigidity, no organomegaly EXTREMITIES: No edema of feet. - Labs CBC & Chem 7: 10/05/22 10:13 10/05/22 10:13 Labs: Abnormal Lab Results - Last 24 Hours (Table) 10/04/22 10/04/22 10/04/22 Range/Units 17:25 20:18 21:50 WBC (3.8-10.6) k/uL Plt Count (150-450) k/uL Neutrophils # (1.3-7.7) k/uL Sodium (137-145) mmol/L BUN (9-20) mg/dL Creatinine (0.66-1.25) mg/dL Glucose (74-99) mg/dL POC Glucose (mg/dL) 247 H 511 H 554 H (70-110) mg/dL Calcium (8.4-10.2) mg/dL Total Protein (6.3-8.2) g/dL Albumin (3.5-5.0) g/dL 10/05/22 10/05/22 10/05/22 Range/Units 01:46 06:27 10:13 WBC 17.7 H (3.8-10.6) k/uL Plt Count 127 L (150-450) k/uL Neutrophils # 14.8 H (1.3-7.7) k/uL Sodium (137-145) mmol/L BUN (9-20) mg/dL Creatinine (0.66-1.25) mg/dL Glucose (74-99) mg/dL POC Glucose (mg/dL) 376 H 275 H (70-110) mg/dL Calcium (8.4-10.2) mg/dL Total Protein (6.3-8.2) g/dL Albumin (3.5-5.0) g/dL 10/05/22 10/05/22 Range/Units 10:13 11:58 WBC (3.8-10.6) k/uL Plt Count (150-450) k/uL Neutrophils # (1.3-7.7) k/uL Sodium 131 L (137-145) mmol/L BUN 47 H (9-20) mg/dL Creatinine 1.30 H (0.66-1.25) mg/dL Glucose 239 H (74-99) mg/dL POC Glucose (mg/dL) 222 H (70-110) mg/dL Calcium 7.9 L (8.4-10.2) mg/dL Total Protein 5.0 L (6.3-8.2) g/dL Albumin 2.9 L (3.5-5.0) g/dL Assessment and Plan (1) MRSA (methicillin resistant staph aureus) culture positive Current Visit: Yes Status: Acute Code(s): Z22.322 - CARRIER OR SUSPECTED CARRIER OF METHICILLIN RESIS STAPH SNOMED Code(s): 350214741 Plan: 1patient with a positive sputum culture with MRSA in this patient present to the hospital about 5 days ago with increasing shortness of breath however the patient did not have any fever CT angiogram of the chest did not show any consolidation did show some interstitial infiltrate and last chest x-ray done on 10/02/2022 did not show any acute process patient did have a very mildly elevated procalcitonin 0.18 on 09/29/2022 clinically not behaving as pneumonia with concern for possible purulent tracheobronchitis 2patient with multiple antibiotic allergies that would limit the number of antibiotics safe to use. 3patient with renal insufficiency limiting the number of antibiotics safe to use. 4Patient did have a normal CRP and a procalcitonin that would go against deep infection/ pneumonia with a positive sputum culture likely representing tracheobronchitis 5patient seemed to have shown clinical improvement and will continue the vancomycin while watching his kidney function closely and finishing therapy with oral doxycycline Time with Patient: Less than 30
[2022-10-06 05:56] LABS: Glucose,Whole Blood 253 mg/dL (70-110)
[2022-10-06] MEDS: LEVOTHYROXINE 112 MCG TAB PO SCH (07:37)
[2022-10-06] MEDS: LEVOTHYROXINE 125 MCG TAB PO SCH (07:37)
[2022-10-06] MEDS: carvediloL 6.25 MG TAB PO SCH ×2 (07:37→17:19)
[2022-10-06] MEDS: SYMBICORT 160-4.5 MCG INHALER INHALATION SCH ×2 (07:38→20:39)
[2022-10-06] MEDS: MIDODRINE 5 MG TAB PO SCH ×3 (07:38→17:19)
[2022-10-06] MEDS: INSULIN ASPART (NovoLOG) 100 UNIT/ML VIAL SQ SCH ×8 (07:38→21:16)
[2022-10-06] MEDS: PANTOPRAZOLE 40 MG TABLET PO SCH (07:38)
--- NOTE | 2022-10-06 07:43 | P.PN ---
Subjective Progress Note Date: 10/04/22 Patrick Banuelos, is a 76-year-old male who presented to [facility] emergency room with a chief complaint of worsening shortness of breath He was evaluated in the emergency room vital examination on presentation revealed a temperature of 97.7 pulse 90 respiration 18 blood pressure 127/77 pu lse ox 98% on room air Laboratory data revealed a white blood count of 16.7 hemoglobin 15.9 platelet count 119 sodium 127 potassium 5.8 chloride 103 CO2 24 BUN 13 and creatinine 1.2 Testing in the emergency room revealed chest x-ray done in the emergency room reveals coarse interstitial pulmonary density and minimal pleural fluid and probable pulmonary interstitial fibrosis, CT angiogram of the chest revealed no evidence of pulmonary embolism there was patchy bilateral pulmonary interstitial infiltrates Patient was admitted to medical floor for further evaluation and treatment. On 09/30/2022 patient is alert and oriented 3. Patient reports some improvement with shortness of breath. Patient remains on IV Lasix and IV steroids. Sodium also low at 126 nephrology services have been consulted. Patient denies chest pain. Patient denies nausea vomiting or diarrhea. Patient denies any urinary burning or frequency On 10/01/2022 patient was seen and examined on the medical floor he is alert and oriented 3 in no apparent distress he is still complaining of shortness of breath with activity otherwise he denies any complaints there is no fever or chills no headache or dizziness no chest pain he has occasional cough no nausea or vomiting no abdominal pain no diarrhea and no urinary symptoms. He is maintained on IV Lasix IV steroids and IV Zithromax pulmonary cardiology and nephrology are following, input reviewed carefully will recheck labs and chest x-ray in a.m. On 10/02/2022 patient was seen and examined on the medical floor he is alert and oriented 3 in no apparent distress there is no fever or chills no headache or dizziness he is still complaining of shortness of breath with any activity there is no nausea or vomiting no abdominal pain no diarrhea no blood in the stools no burning with urination no frequency or urgency and no hematuria he is still maintained on IV Lasix, nephrology are following 10/03/2022 patient is alert and oriented 3. Patient reports some improvement shortness of breath. Patient remains on IV diuretics. Sodium 129, creatinine 1.8. Nephrology services are following. Temp 97.8, heart rate 86, respiratory rate 20, blood pressure 101/72 with pulse ox 93%. Blood sugars remain high will add Lantus 10 units ordered hemoglobin A1c On 10/04/2022 patient was seen and examined on the medical floor he is alert and oriented 3 in no distress there is no fever or chills no headache or dizziness he is still complaining of shortness of breath with any activity there is no nausea or vomiting no abdominal pain no diarrhea no blood in the stools no burning with urination no frequency or urgency and no hematuria he is still maintained on IV Lasix, nephrology are following Objective - Vital Signs Vital signs: Vital Signs Temp 97.5 F L 10/04/22 07:35 Pulse 80 10/04/22 10:01 Resp 18 10/04/22 07:35 BP 105/69 10/04/22 07:35 Pulse Ox 94 L 10/04/22 07:35 FiO2 Intake & Output 10/03/22 10/04/22 10/04/22 18:59 06:59 18:59 Output Total 1125 Balance -1125 Weight 105.8 kg Output: Urine 1125 Other: # Voids 4 # Bowel Movements 1 - Exam In general patient is alert and oriented x 3 in no distress HEENT head normocephalic and atraumatic Neck is supple no JVD no goiter no lymphadenopathy no carotid bruit Chest examination reveals few scattered rhonchi in both lung fuentes no wheezing. Cardiac exam reveals regular heart sounds S1 and S2 no gallops no murmurs Abdomen is soft nontender no organomegaly with normal bowel sounds Extremity exam reveals no edema no cyanosis or clubbing Neurological examination reveals no gross focal deficits. - Labs CBC & Chem 7: 10/05/22 10:13 10/05/22 10:13 Labs: Abnormal Lab Results - Last 24 Hours (Table) 10/02/22 10/03/22 10/03/22 Range/Units 05:36 17:17 20:13 WBC (4.50-10.00) X 10*3/uL Plt Count (140-440) X 10*3/uL Immature Gran # (0.00-0.04) X 10*3/uL Neutrophils # (1.80-7.70) X 10*3/uL Monocytes # (0.20-1.00) X 10*3/uL Sodium (135-145) mmol/L Anion Gap (10.00-18.00) mmol/L BUN (9.0-27.0) mg/dL Est GFR (CKD-EPI)AfAm (60.0-200.0) Est GFR (CKD-EPI)NonAf (60.0-200.0) BUN/Creatinine Ratio (12.00-20.00) Ratio Glucose (70-110) mg/dL POC Glucose (mg/dL) 288 H 422 H (70-110) mg/dL Hemoglobin A1c 9.7 H (0.0-6.0) % Calcium (8.7-10.3) mg/dL ALT (10-49) U/L Total Protein (6.2-8.2) g/dL Albumin (3.8-4.9) g/dL 10/04/22 10/04/22 10/04/22 Range/Units 06:26 06:53 06:53 WBC 20.26 H (4.50-10.00) X 10*3/uL Plt Count 115 L (140-440) X 10*3/uL Immature Gran # 0.11 H (0.00-0.04) X 10*3/uL Neutrophils # 17.06 H (1.80-7.70) X 10*3/uL Monocytes # 1.10 H (0.20-1.00) X 10*3/uL Sodium 133 L (135-145) mmol/L Anion Gap 9.60 L (10.00-18.00) mmol/L BUN 51.0 H (9.0-27.0) mg/dL Est GFR (CKD-EPI)AfAm 50.9 L (60.0-200.0) Est GFR (CKD-EPI)NonAf 44.0 L (60.0-200.0) BUN/Creatinine Ratio 34.00 H (12.00-20.00) Ratio Glucose 265 H (70-110) mg/dL POC Glucose (mg/dL) 242 H (70-110) mg/dL Hemoglobin A1c (0.0-6.0) % Calcium 8.4 L (8.7-10.3) mg/dL ALT 53 H (10-49) U/L Total Protein 4.9 L (6.2-8.2) g/dL Albumin 3.1 L (3.8-4.9) g/dL 10/04/22 Range/Units 11:34 WBC (4.50-10.00) X 10*3/uL Plt Count (140-440) X 10*3/uL Immature Gran # (0.00-0.04) X 10*3/uL Neutrophils # (1.80-7.70) X 10*3/uL Monocytes # (0.20-1.00) X 10*3/uL Sodium (135-145) mmol/L Anion Gap (10.00-18.00) mmol/L BUN (9.0-27.0) mg/dL Est GFR (CKD-EPI)AfAm (60.0-200.0) Est GFR (CKD-EPI)NonAf (60.0-200.0) BUN/Creatinine Ratio (12.00-20.00) Ratio Glucose (70-110) mg/dL POC Glucose (mg/dL) 207 H (70-110) mg/dL Hemoglobin A1c (0.0-6.0) % Calcium (8.7-10.3) mg/dL ALT (10-49) U/L Total Protein (6.2-8.2) g/dL Albumin (3.8-4.9) g/dL Microbiology - Last 24 Hours (Table) 10/01/22 07:03 Gram Stain - Final Sputum Sputum Culture - Final Methicillin resist S. aureus Assessment and Plan Plan: Acute exacerbation of chronic systolic congestive heart failure, with known history of ischemic cardiomyopathy. Acute exacerbation of chronic obstructive pulmonary disease Chest x-ray suspicious for pneumonia patient was started on IV Zithromax he has multiple antibiotic ALLERGIES Coronary artery disease with previous coronary artery bypass graft surgery Atrial fibrillation, maintained on Eliquis Eliquis Underlying history of Diabetes mellitus. Elevated blood sugars. Will add Lantus 10 units at night and order hemoglobin A1c Underlying history of hypertension Underlying history of hyperlipidemia Underlying history of hypothyroidism Underlying history of gout At this time patient is admitted to medical floor Home medications reviewed and reordered He was started on IV antibiotics He was started on IV Lasix Pulmonary and cardiology consultation requested For DVT prophylaxis, patient is on eliquis
[2022-10-06] MEDS: NYSTATIN 100,000 UNIT/ML SUSP 500,000 UNIT/5 ML CUP PO SCH ×4 (08:11→21:14)
[2022-10-06] MEDS: APIXABAN 5 MG TAB PO SCH ×2 (08:11→21:13)
[2022-10-06] MEDS: allopurinoL 300 MG TAB PO SCH (08:11)
[2022-10-06] MEDS: GLIMEPIRIDE 2 MG TAB PO SCH (08:11)
[2022-10-06] MEDS: predniSONE 10 MG TAB PO SCH (08:11)
[2022-10-06] MEDS: FUROSEMIDE 40 MG TAB PO SCH (08:11)
--- NOTE | 2022-10-06 10:03 | P.PN ---
Subjective Progress Note Date: 10/06/22 Patrick Banuelos, is a 76-year-old male who presented to [facility] emergency room with a chief complaint of worsening shortness of breath He was evaluated in the emergency room vital examination on presentation revealed a temperature of 97.7 pulse 90 respiration 18 blood pressure 127/77 pu lse ox 98% on room air Laboratory data revealed a white blood count of 16.7 hemoglobin 15.9 platelet count 119 sodium 127 potassium 5.8 chloride 103 CO2 24 BUN 13 and creatinine 1.2 Testing in the emergency room revealed chest x-ray done in the emergency room reveals coarse interstitial pulmonary density and minimal pleural fluid and probable pulmonary interstitial fibrosis, CT angiogram of the chest revealed no evidence of pulmonary embolism there was patchy bilateral pulmonary interstitial infiltrates Patient was admitted to medical floor for further evaluation and treatment. On 09/30/2022 patient is alert and oriented 3. Patient reports some improvement with shortness of breath. Patient remains on IV Lasix and IV steroids. Sodium also low at 126 nephrology services have been consulted. Patient denies chest pain. Patient denies nausea vomiting or diarrhea. Patient denies any urinary burning or frequency On 10/01/2022 patient was seen and examined on the medical floor he is alert and oriented 3 in no apparent distress he is still complaining of shortness of breath with activity otherwise he denies any complaints there is no fever or chills no headache or dizziness no chest pain he has occasional cough no nausea or vomiting no abdominal pain no diarrhea and no urinary symptoms. He is maintained on IV Lasix IV steroids and IV Zithromax pulmonary cardiology and nephrology are following, input reviewed carefully will recheck labs and chest x-ray in a.m. On 10/02/2022 patient was seen and examined on the medical floor he is alert and oriented 3 in no apparent distress there is no fever or chills no headache or dizziness he is still complaining of shortness of breath with any activity there is no nausea or vomiting no abdominal pain no diarrhea no blood in the stools no burning with urination no frequency or urgency and no hematuria he is still maintained on IV Lasix, nephrology are following 10/03/2022 patient is alert and oriented 3. Patient reports some improvement shortness of breath. Patient remains on IV diuretics. Sodium 129, creatinine 1.8. Nephrology services are following. Temp 97.8, heart rate 86, respiratory rate 20, blood pressure 101/72 with pulse ox 93%. Blood sugars remain high will add Lantus 10 units ordered hemoglobin A1c On 10/04/2022 patient was seen and examined on the medical floor he is alert and oriented 3 in no distress there is no fever or chills no headache or dizziness he is still complaining of shortness of breath with any activity there is no nausea or vomiting no abdominal pain no diarrhea no blood in the stools no burning with urination no frequency or urgency and no hematuria he is still maintained on IV Lasix, nephrology are following On 10/05/2022 patient is alert and oriented 3. Patient still having elevated blood sugars will increase to 15 units. Patient also noted to have an elevated white blood cell count will cut prednisone down to 10. Patient remains on IV vancomycin. Infectious disease, nephrology and pulmonary services are following. Patient reports improvement with shortness of breath. Patient denies chest pain. Patient denies nausea vomiting or diarrhea. Patient denies any urinary burning or frequency On 10/06/2022 patient was seen and examined on the medical floor, he is alert and oriented 3 in no apparent distress, he is reporting improvement in his chest congestion and shortness of breath otherwise he denies any complaints there is no fever or chills no headache or dizziness no chest pain, no cough no nausea or vomiting no abdominal pain no diarrhea no blood in the stools no burning with urination no frequency or urgency and no hematuria. Patient is rec eiving IV vancomycin, for sputum positive for MRSA, steroids are being tapered down, patient is receiving insulin for hyperglycemia, will recheck labs in a.m. and continue to monitor closely. Objective - Vital Signs Vital signs: Vital Signs Temp 97.9 F 10/06/22 02:29 Pulse 85 10/06/22 02:29 Resp 17 10/06/22 02:29 BP 107/71 10/06/22 02:29 Pulse Ox 96 10/06/22 02:29 FiO2 Intake & Output 10/05/22 10/06/22 10/06/22 18:59 06:59 18:59 Output Total 300 Balance -300 Weight 106.5 kg Output: Urine 300 Other: # Voids 3 - Exam In general patient is alert and oriented x 3 in no distress HEENT head normocephalic and atraumatic Neck is supple no JVD no goiter no lymphadenopathy no carotid bruit Chest examination reveals few scattered rhonchi in both lung fuentes no wheezing. Cardiac exam reveals regular heart sounds S1 and S2 no gallops no murmurs Abdomen is soft nontender no organomegaly with normal bowel sounds Extremity exam reveals no edema no cyanosis or clubbing Neurological examination reveals no gross focal deficits. - Labs CBC & Chem 7: 10/05/22 10:13 10/05/22 10:13 Labs: Abnormal Lab Results - Last 24 Hours (Table) 10/05/22 10/05/22 10/05/22 Range/Units 10:13 10:13 11:58 WBC 17.7 H (3.8-10.6) k/uL Plt Count 127 L (150-450) k/uL Neutrophils # 14.8 H (1.3-7.7) k/uL Sodium 131 L (137-145) mmol/L BUN 47 H (9-20) mg/dL Creatinine 1.30 H (0.66-1.25) mg/dL Glucose 239 H (74-99) mg/dL POC Glucose (mg/dL) 222 H (70-110) mg/dL Calcium 7.9 L (8.4-10.2) mg/dL Total Protein 5.0 L (6.3-8.2) g/dL Albumin 2.9 L (3.5-5.0) g/dL 10/05/22 10/05/22 10/06/22 Range/Units 16:54 20:42 05:54 WBC (3.8-10.6) k/uL Plt Count (150-450) k/uL Neutrophils # (1.3-7.7) k/uL Sodium (137-145) mmol/L BUN (9-20) mg/dL Creatinine (0.66-1.25) mg/dL Glucose (74-99) mg/dL POC Glucose (mg/dL) 391 H 355 H 253 H (70-110) mg/dL Calcium (8.4-10.2) mg/dL Total Protein (6.3-8.2) g/dL Albumin (3.5-5.0) g/dL Assessment and Plan Plan: Acute exacerbation of chronic systolic congestive heart failure, with known history of ischemic cardiomyopathy. Acute exacerbation of chronic obstructive pulmonary disease Chest x-ray suspicious for pneumonia patient was started on IV Zithromax he has multiple antibiotic ALLERGIES Coronary artery disease with previous coronary artery bypass graft surgery Atrial fibrillation, maintained on Eliquis Eliquis Underlying history of Diabetes mellitus. Elevated blood sugars. Will add Lantus 10 units at night and order hemoglobin A1c Underlying history of hypertension Underlying history of hyperlipidemia Underlying history of hypothyroidism Underlying history of gout At this time patient is admitted to medical floor Home medications reviewed and reordered He was started on IV antibiotics He was started on IV Lasix Pulmonary and cardiology consultation requested For DVT prophylaxis, patient is on eliquis
--- NOTE | 2022-10-06 11:04 | P.PN ---
Subjective Patient is seen in follow-up for acute kidney injury. Creatinine peaked at 2.0 on 09/30/2022 and is improved to 1.3 yesterday. On po Lasix. Good urine output. Denies chest pain. On room air. No active complaints at this time. Vital signs are stable. General: Awake. No acute distress. HEENT: Head exam is unremarkable. LUNGS: Breath sounds decreased. HEART: Rate and Rhythm are regular. ABDOMEN: Soft, no distention. EXTREMITITES: No edema. Objective - Vital Signs Vital signs: Vital Signs Temp 97.6 F 10/06/22 08:00 Pulse 62 10/06/22 08:00 Resp 16 10/06/22 08:00 BP 113/76 10/06/22 08:00 Pulse Ox 95 10/06/22 08:00 FiO2 Intake & Output 10/05/22 10/06/22 10/06/22 18:59 06:59 18:59 Output Total 300 Balance -300 Weight 106.5 kg Output: Urine 300 Other: # Voids 3 - Labs CBC & Chem 7: 10/05/22 10:13 10/05/22 10:13 Labs: Abnormal Lab Results - Last 24 Hours (Table) 10/05/22 10/05/22 10/05/22 Range/Units 10:13 10:13 11:58 WBC 17.7 H (3.8-10.6) k/uL Plt Count 127 L (150-450) k/uL Neutrophils # 14.8 H (1.3-7.7) k/uL Sodium 131 L (137-145) mmol/L BUN 47 H (9-20) mg/dL Creatinine 1.30 H (0.66-1.25) mg/dL Glucose 239 H (74-99) mg/dL POC Glucose (mg/dL) 222 H (70-110) mg/dL Calcium 7.9 L (8.4-10.2) mg/dL Total Protein 5.0 L (6.3-8.2) g/dL Albumin 2.9 L (3.5-5.0) g/dL 10/05/22 10/05/22 10/06/22 Range/Units 16:54 20:42 05:54 WBC (3.8-10.6) k/uL Plt Count (150-450) k/uL Neutrophils # (1.3-7.7) k/uL Sodium (137-145) mmol/L BUN (9-20) mg/dL Creatinine (0.66-1.25) mg/dL Glucose (74-99) mg/dL POC Glucose (mg/dL) 391 H 355 H 253 H (70-110) mg/dL Calcium (8.4-10.2) mg/dL Total Protein (6.3-8.2) g/dL Albumin (3.5-5.0) g/dL Assessment and Plan Plan: Assessment: 1. Acute kidney injury secondary to ATN secondary to cardiorenal syndrome. Also component of contrast-induced acute kidney injury as he received IV contrast on 09/28/2022. Right kidney atrophic. No hydronephrosis noted on ultrasound. UA benign. Creatinine peaked at 2.0 on 09/30/2020 20 and improved to 1.3 yesterday. 2. Acute hypoxic respiratory failure secondary to volume overload and COPD exacerbation/pneumonia. 3. Hypervolemic hyponatremia with component of hypertonicity from hyperglycemia. Better. 4. Hyperkalemia secondary to hyperglycemia. Potassium is normal today. 5. Chronic kidney disease stage III with baseline creatinine 1-1.2. Etiology is nephrosclerosis. UA benign. Renal ultrasound showed atrophic right kidney with no evidence of hydronephrosis. 6. Metabolic acidosis secondary to acute kidney injury. On oral bicarbonate. 7. Diabetes mellitus. Exacerbated by steroids. Plan: Maintain oral Lasix. Low-salt diet and 1200 mL fluid restriction. Blood sugar control. Avoid nephrotoxins. Follow-up outpatient 1 week post discharge. Advised to monitor his weight closely at home and notify physician if develops edema or gains more than 3-4 pounds in one week duration.
[2022-10-06 11:33] LABS: Basophils # (A) 0.01 X 10*3/uL (0.00-0.10); Basophils % (A) 0.1 %; Eosinophils # (A) 0.15 X 10*3/uL (0.04-0.35); HCT 42.5 % (39.6-50.0); Immature Grans, Automated 0.4 %; Lymphocytes % (A) 10.8 %; MCH 31.5 pg (27.0-32.0); MCHC 32.9 g/dL (32.0-37.0); MCV 95.5 fL (80.0-97.0); Mean Platelet Volume 10.7 fL (9.5-12.2); Monocytes # (A) 0.87 X 10*3/uL (0.20-1.00); Monocytes % (A) 5.5 %; NRBC Per 100 WBC 0 /100 WBCS (0.0-0.0); Neutrophils # (A) 12.96 X 10*3/uL (1.80-7.70); Neutrophils % (A) 82.2 %; Platelet Count 112 X 10*3/uL (140-440); RBC 4.45 X 10*6/uL (4.40-5.60); RDW 13.6 % (11.5-14.5); WBC 15.75 X 10*3/uL (4.50-10.00)
[2022-10-06 11:49] LABS: Glucose,Whole Blood 328 mg/dL (70-110)
[2022-10-06] MEDS: GABAPENTIN 400 MG CAP PO SCH ×2 (12:21→21:12)
[2022-10-06 12:32] LABS: African American GFR (CKD) 61.7 (60.0-200.0); Albumin 3.1 g/dL (3.8-4.9); Albumin/Globulin Ratio 1.94 (1.60-3.17); BUN/Creat Ratio 28.98 Ratio (12.00-20.00); Blood Urea Nitrogen 37.1 mg/dL (9.0-27.0); Calcium 8.4 mg/dL (8.7-10.3); Carbon Dioxide 28.8 mmol/L (20.0-27.5); Globulin 1.6 g/dL (1.6-3.3); Non-African American GFR(CKD) 53.3 (60.0-200.0); Potassium 4.3 mmol/L (3.5-5.5); Total Bilirubin 0.9 mg/dL (0.30-1.20); Total Protein 4.7 g/dL (6.2-8.2)
[2022-10-06] MEDS ORDERED: VANCOMYCIN TROUGH DUE 1 EACH MISC MISCELLANE ONE (14:00)
[2022-10-06] MEDS: VANCOMYCIN 1,750 MG in SODIUM CHLORIDE 0.9% 500 ML 500 ML IVPB SCH (15:31)
[2022-10-06 16:48] LABS: Glucose,Whole Blood 267 mg/dL (70-110)
[2022-10-06 20:29] LABS: Glucose,Whole Blood 397 mg/dL (70-110)
[2022-10-06] MEDS: ATORVASTATIN 40 MG TAB PO SCH (21:13)
[2022-10-06] MEDS: INSULIN DETEMIR (LEVEMIR) 100 UNIT/ML SYR SQ SCH (21:14)
[2022-10-07 05:58] LABS: Glucose,Whole Blood 166 mg/dL (70-110)
[2022-10-07] MEDS: LEVOTHYROXINE 112 MCG TAB PO SCH (06:51)
[2022-10-07] MEDS: carvediloL 6.25 MG TAB PO SCH ×2 (06:51→16:52)
[2022-10-07] MEDS: LEVOTHYROXINE 125 MCG TAB PO SCH (06:52)
[2022-10-07] MEDS: INSULIN ASPART (NovoLOG) 100 UNIT/ML VIAL SQ SCH ×8 (06:52→20:29)
[2022-10-07] MEDS: MIDODRINE 5 MG TAB PO SCH ×3 (06:52→16:52)
[2022-10-07] MEDS: PANTOPRAZOLE 40 MG TABLET PO SCH (06:52)
[2022-10-07] MEDS: SYMBICORT 160-4.5 MCG INHALER INHALATION SCH ×2 (07:18→19:42)
[2022-10-07] MEDS: APIXABAN 5 MG TAB PO SCH ×2 (08:17→20:28)
[2022-10-07] MEDS: NYSTATIN 100,000 UNIT/ML SUSP 500,000 UNIT/5 ML CUP PO SCH ×4 (08:17→20:29)
[2022-10-07] MEDS: VANCOMYCIN 1,750 MG in SODIUM CHLORIDE 0.9% 500 ML 500 ML IVPB SCH ×2 (08:18→23:53)
[2022-10-07] MEDS: FUROSEMIDE 40 MG TAB PO SCH (08:18)
[2022-10-07] MEDS: GLIMEPIRIDE 2 MG TAB PO SCH (08:18)
[2022-10-07] MEDS: predniSONE 10 MG TAB PO SCH (08:18)
[2022-10-07] MEDS: allopurinoL 300 MG TAB PO SCH (08:18)
--- NOTE | 2022-10-07 10:44 | P.PN ---
Subjective Progress Note Date: 10/07/22 Patrick Banuelos, is a 76-year-old male who presented to [facility] emergency room with a chief complaint of worsening shortness of breath He was evaluated in the emergency room vital examination on presentation revealed a temperature of 97.7 pulse 90 respiration 18 blood pressure 127/77 pu lse ox 98% on room air Laboratory data revealed a white blood count of 16.7 hemoglobin 15.9 platelet count 119 sodium 127 potassium 5.8 chloride 103 CO2 24 BUN 13 and creatinine 1.2 Testing in the emergency room revealed chest x-ray done in the emergency room reveals coarse interstitial pulmonary density and minimal pleural fluid and probable pulmonary interstitial fibrosis, CT angiogram of the chest revealed no evidence of pulmonary embolism there was patchy bilateral pulmonary interstitial infiltrates Patient was admitted to medical floor for further evaluation and treatment. On 09/30/2022 patient is alert and oriented 3. Patient reports some improvement with shortness of breath. Patient remains on IV Lasix and IV steroids. Sodium also low at 126 nephrology services have been consulted. Patient denies chest pain. Patient denies nausea vomiting or diarrhea. Patient denies any urinary burning or frequency On 10/01/2022 patient was seen and examined on the medical floor he is alert and oriented 3 in no apparent distress he is still complaining of shortness of breath with activity otherwise he denies any complaints there is no fever or chills no headache or dizziness no chest pain he has occasional cough no nausea or vomiting no abdominal pain no diarrhea and no urinary symptoms. He is maintained on IV Lasix IV steroids and IV Zithromax pulmonary cardiology and nephrology are following, input reviewed carefully will recheck labs and chest x-ray in a.m. On 10/02/2022 patient was seen and examined on the medical floor he is alert and oriented 3 in no apparent distress there is no fever or chills no headache or dizziness he is still complaining of shortness of breath with any activity there is no nausea or vomiting no abdominal pain no diarrhea no blood in the stools no burning with urination no frequency or urgency and no hematuria he is still maintained on IV Lasix, nephrology are following 10/03/2022 patient is alert and oriented 3. Patient reports some improvement shortness of breath. Patient remains on IV diuretics. Sodium 129, creatinine 1.8. Nephrology services are following. Temp 97.8, heart rate 86, respiratory rate 20, blood pressure 101/72 with pulse ox 93%. Blood sugars remain high will add Lantus 10 units ordered hemoglobin A1c On 10/04/2022 patient was seen and examined on the medical floor he is alert and oriented 3 in no distress there is no fever or chills no headache or dizziness he is still complaining of shortness of breath with any activity there is no nausea or vomiting no abdominal pain no diarrhea no blood in the stools no burning with urination no frequency or urgency and no hematuria he is still maintained on IV Lasix, nephrology are following On 10/05/2022 patient is alert and oriented 3. Patient still having elevated blood sugars will increase to 15 units. Patient also noted to have an elevated white blood cell count will cut prednisone down to 10. Patient remains on IV vancomycin. Infectious disease, nephrology and pulmonary services are following. Patient reports improvement with shortness of breath. Patient denies chest pain. Patient denies nausea vomiting or diarrhea. Patient denies any urinary burning or frequency On 10/06/2022 patient was seen and examined on the medical floor, he is alert and oriented 3 in no apparent distress, he is reporting improvement in his chest congestion and shortness of breath otherwise he denies any complaints there is no fever or chills no headache or dizziness no chest pain, no cough no nausea or vomiting no abdominal pain no diarrhea no blood in the stools no burning with urination no frequency or urgency and no hematuria. Patient is rec eiving IV vancomycin, for sputum positive for MRSA, steroids are being tapered down, patient is receiving insulin for hyperglycemia, will recheck labs in a.m. and continue to monitor closely. On 10/07/2022 patient was seen and examined on the medical floor he is alert and oriented 3 in no apparent distress there is no fever or chills no headache or dizziness no chest pain no shortness of breath no cough no nausea or vomiting no abdominal pain no diarrhea no blood in the stools no burning with urination no frequency or urgency and no hematuria. At this time, we are awaiting decision by infectious disease in regard to antibiotic at the time of discharge, will continue with current medical Objective - Vital Signs Vital signs: Vital Signs Temp 97.8 F 10/07/22 08:00 Pulse 60 10/07/22 08:00 Resp 18 10/07/22 08:00 BP 110/72 10/07/22 08:00 Pulse Ox 94 L 10/07/22 08:00 FiO2 Intake & Output 10/06/22 10/07/22 10/07/22 18:59 06:59 18:59 Intake Total 1196 Output Total 1500 600 Balance -304 -600 Weight 105.8 kg Intake: Oral 1196 Output: Urine 1500 600 Other: Voiding Method Urinal - Exam In general patient is alert and oriented x 3 in no distress HEENT head normocephalic and atraumatic Neck is supple no JVD no goiter no lymphadenopathy no carotid bruit Chest examination reveals few scattered rhonchi in both lung fuentes no wheezing. Cardiac exam reveals regular heart sounds S1 and S2 no gallops no murmurs Abdomen is soft nontender no organomegaly with normal bowel sounds Extremity exam reveals no edema no cyanosis or clubbing Neurological examination reveals no gross focal deficits. - Labs CBC & Chem 7: 10/06/22 06:58 10/06/22 06:58 Labs: Abnormal Lab Results - Last 24 Hours (Table) 10/06/22 10/06/22 10/06/22 Range/Units 06:58 06:58 11:47 WBC 15.75 H (4.50-10.00) X 10*3/uL Plt Count 112 L (140-440) X 10*3/uL Immature Gran # 0.06 H (0.00-0.04) X 10*3/uL Neutrophils # 12.96 H (1.80-7.70) X 10*3/uL Carbon Dioxide 28.8 H (20.0-27.5) mmol/L Anion Gap 9.00 L (10.00-18.00) mmol/L BUN 37.1 H (9.0-27.0) mg/dL Est GFR (CKD-EPI)NonAf 53.3 L (60.0-200.0) BUN/Creatinine Ratio 28.98 H (12.00-20.00) Ratio Glucose 237 H (70-110) mg/dL POC Glucose (mg/dL) 328 H (70-110) mg/dL Calcium 8.4 L (8.7-10.3) mg/dL AST 12 L (14-35) U/L Total Protein 4.7 L (6.2-8.2) g/dL Albumin 3.1 L (3.8-4.9) g/dL 10/06/22 10/06/22 10/07/22 Range/Units 16:45 20:26 05:56 WBC (4.50-10.00) X 10*3/uL Plt Count (140-440) X 10*3/uL Immature Gran # (0.00-0.04) X 10*3/uL Neutrophils # (1.80-7.70) X 10*3/uL Carbon Dioxide (20.0-27.5) mmol/L Anion Gap (10.00-18.00) mmol/L BUN (9.0-27.0) mg/dL Est GFR (CKD-EPI)NonAf (60.0-200.0) BUN/Creatinine Ratio (12.00-20.00) Ratio Glucose (70-110) mg/dL POC Glucose (mg/dL) 267 H 397 H 166 H (70-110) mg/dL Calcium (8.7-10.3) mg/dL AST (14-35) U/L Total Protein (6.2-8.2) g/dL Albumin (3.8-4.9) g/dL Assessment and Plan Plan: Acute exacerbation of chronic systolic congestive heart failure, with known history of ischemic cardiomyopathy. Acute exacerbation of chronic obstructive pulmonary disease Chest x-ray suspicious for pneumonia patient was started on IV Zithromax he has multiple antibiotic ALLERGIES Coronary artery disease with previous coronary artery bypass graft surgery Atrial fibrillation, maintained on Eliquis Eliquis Underlying history of Diabetes mellitus. Elevated blood sugars. Will add Lantus 10 units at night and order hemoglobin A1c Underlying history of hypertension Underlying history of hyperlipidemia Underlying history of hypothyroidism Underlying history of gout At this time patient is admitted to medical floor Home medications reviewed and reordered He was started on IV antibiotics He was started on IV Lasix Pulmonary and cardiology consultation requested For DVT prophylaxis, patient is on eliquis
[2022-10-07 10:56] LABS: Basophils # (A) 0.02 X 10*3/uL (0.00-0.10); Basophils % (A) 0.1 %; Eosinophils # (A) 0.19 X 10*3/uL (0.04-0.35); Eosinophils % (A) 1.3 %; HCT 43.8 % (39.6-50.0); HGB 14.2 g/dL (13.0-17.0); Immature Grans, Automated 0.4 %; Lymphocytes # (A) 2.64 X 10*3/uL (0.90-5.00); Lymphocytes % (A) 18.7 %; MCH 31.1 pg (27.0-32.0); MCHC 32.4 g/dL (32.0-37.0); MCV 96.1 fL (80.0-97.0); Mean Platelet Volume 10.8 fL (9.5-12.2); Monocytes # (A) 0.94 X 10*3/uL (0.20-1.00); Monocytes % (A) 6.6 %; NRBC Per 100 WBC 0 /100 WBCS (0.0-0.0); Neutrophils % (A) 72.9 %; Platelet Count 116 X 10*3/uL (140-440); RBC 4.56 X 10*6/uL (4.40-5.60); RDW 13.8 % (11.5-14.5); WBC 14.14 X 10*3/uL (4.50-10.00)
--- NOTE | 2022-10-07 11:00 | P.PN ---
Subjective Patient is seen in follow-up for acute kidney injury. Creatinine peaked at 2.0 on 09/30/2022 and is improved to 1.3. On po Lasix. Good urine output. Denies chest pain. On room air. No active complaints at this time. Vital signs are stable. General: Awake. No acute distress. HEENT: Head exam is unremarkable. LUNGS: Breath sounds decreased. HEART: Rate and Rhythm are regular. ABDOMEN: Soft, no distention. EXTREMITITES: No edema. Objective - Vital Signs Vital signs: Vital Signs Temp 97.8 F 10/07/22 08:00 Pulse 60 10/07/22 08:00 Resp 18 10/07/22 08:00 BP 110/72 10/07/22 08:00 Pulse Ox 94 L 10/07/22 08:00 FiO2 Intake & Output 10/06/22 10/07/22 10/07/22 18:59 06:59 18:59 Intake Total 1196 Output Total 1500 600 Balance -304 -600 Weight 105.8 kg Intake: Oral 1196 Output: Urine 1500 600 Other: Voiding Method Urinal - Labs CBC & Chem 7: 10/07/22 07:02 10/06/22 06:58 Labs: Abnormal Lab Results - Last 24 Hours (Table) 10/06/22 10/06/22 10/06/22 Range/Units 06:58 06:58 11:47 WBC 15.75 H (4.50-10.00) X 10*3/uL Plt Count 112 L (140-440) X 10*3/uL Immature Gran # 0.06 H (0.00-0.04) X 10*3/uL Neutrophils # 12.96 H (1.80-7.70) X 10*3/uL Carbon Dioxide 28.8 H (20.0-27.5) mmol/L Anion Gap 9.00 L (10.00-18.00) mmol/L BUN 37.1 H (9.0-27.0) mg/dL Est GFR (CKD-EPI)NonAf 53.3 L (60.0-200.0) BUN/Creatinine Ratio 28.98 H (12.00-20.00) Ratio Glucose 237 H (70-110) mg/dL POC Glucose (mg/dL) 328 H (70-110) mg/dL Calcium 8.4 L (8.7-10.3) mg/dL AST 12 L (14-35) U/L Total Protein 4.7 L (6.2-8.2) g/dL Albumin 3.1 L (3.8-4.9) g/dL 10/06/22 10/06/22 10/07/22 Range/Units 16:45 20:26 05:56 WBC (4.50-10.00) X 10*3/uL Plt Count (140-440) X 10*3/uL Immature Gran # (0.00-0.04) X 10*3/uL Neutrophils # (1.80-7.70) X 10*3/uL Carbon Dioxide (20.0-27.5) mmol/L Anion Gap (10.00-18.00) mmol/L BUN (9.0-27.0) mg/dL Est GFR (CKD-EPI)NonAf (60.0-200.0) BUN/Creatinine Ratio (12.00-20.00) Ratio Glucose (70-110) mg/dL POC Glucose (mg/dL) 267 H 397 H 166 H (70-110) mg/dL Calcium (8.7-10.3) mg/dL AST (14-35) U/L Total Protein (6.2-8.2) g/dL Albumin (3.8-4.9) g/dL 10/07/22 Range/Units 07:02 WBC 14.14 H (4.50-10.00) X 10*3/uL Plt Count 116 L (140-440) X 10*3/uL Immature Gran # 0.05 H (0.00-0.04) X 10*3/uL Neutrophils # 10.30 H (1.80-7.70) X 10*3/uL Carbon Dioxide (20.0-27.5) mmol/L Anion Gap (10.00-18.00) mmol/L BUN (9.0-27.0) mg/dL Est GFR (CKD-EPI)NonAf (60.0-200.0) BUN/Creatinine Ratio (12.00-20.00) Ratio Glucose (70-110) mg/dL POC Glucose (mg/dL) (70-110) mg/dL Calcium (8.7-10.3) mg/dL AST (14-35) U/L Total Protein (6.2-8.2) g/dL Albumin (3.8-4.9) g/dL Assessment and Plan Plan: Assessment: 1. Acute kidney injury secondary to ATN secondary to cardiorenal syndrome. Also component of contrast-induced acute kidney injury as he received IV contrast on 09/28/2022. Right kidney atrophic. No hydronephrosis noted on ultrasound. UA benign. Creatinine peaked at 2.0 on 09/30/2020 20 and improved to 1.3. 2. Acute hypoxic respiratory failure secondary to volume overload and COPD exacerbation/pneumonia. 3. Hypervolemic hyponatremia with component of hypertonicity from hyperglycemia. Better. 4. Hyperkalemia secondary to hyperglycemia. Better. 5. Chronic kidney disease stage III with baseline creatinine 1-1.2. Etiology is nephrosclerosis. UA benign. Renal ultrasound showed atrophic right kidney with no evidence of hydronephrosis. 6. Metabolic acidosis secondary to acute kidney injury. 7. Diabetes mellitus. Exacerbated by steroids. Plan: Maintain oral Lasix. Low-salt diet and 1200 mL fluid restriction. Blood sugar control. Avoid nephrotoxins. Follow-up outpatient 1 week post discharge. Advised to monitor his weight closely at home and notify physician if develops edema or gains more than 3-4 pounds in one week duration.
[2022-10-07 11:07] LABS: African American GFR (CKD) 60.6 (60.0-200.0); Albumin 3.2 g/dL (3.8-4.9); Anion Gap 9.1 mmol/L (10.00-18.00); BUN/Creat Ratio 25.46 Ratio (12.00-20.00); Blood Urea Nitrogen 33.1 mg/dL (9.0-27.0); Calcium 8.5 mg/dL (8.7-10.3); Carbon Dioxide 29.9 mmol/L (20.0-27.5); Globulin 1.6 g/dL (1.6-3.3); Magnesium 1.9 mg/dL (1.5-2.4); Non-African American GFR(CKD) 52.3 (60.0-200.0); Potassium 4.3 mmol/L (3.5-5.5); Total Bilirubin 0.9 mg/dL (0.30-1.20); Total Protein 4.8 g/dL (6.2-8.2)
[2022-10-07 11:25] LABS: Glucose,Whole Blood 240 mg/dL (70-110)
[2022-10-07] MEDS: GABAPENTIN 400 MG CAP PO SCH ×2 (11:48→20:29)
[2022-10-07 16:41] LABS: Glucose,Whole Blood 372 mg/dL (70-110)
--- NOTE | 2022-10-07 17:05 | P.PN ---
Subjective Progress Note Date: 10/06/22 Principal diagnosis: Sputum MRSA Patient is a 77-year male with multiple comorbidities including COPD CHF atrial fibrillation presented to the hospital with increasing shortness of breath also have a cough sputum positive for MRSA. On today's evaluation that is 10/06/2022 the patient continues to be afebrile, the patient is breathing comfortably on room air , the patient denies any chest pain , the patient cough is decreased intensity and mostly dry in nature no angelito sea no vomiting no abdominal pain or diarrhea Objective - Vital Signs Vital signs: Vital Signs Temp 98.6 F 10/06/22 14:00 Pulse 74 10/06/22 14:00 Resp 16 10/06/22 14:00 BP 130/78 10/06/22 14:00 Pulse Ox 94 L 10/06/22 14:00 FiO2 Intake & Output 10/05/22 10/06/22 10/06/22 18:59 06:59 18:59 Intake Total 956 Output Total 300 1500 Balance -300 -544 Weight 106.5 kg Intake: Oral 956 Output: Urine 300 1500 Other: # Voids 3 - Exam GENERAL DESCRIPTION: Elderly male lying in bed, no distress. No tachypnea or accessory muscle of respiration use. LUNGS: Unlabored breathing decreased intensity of breath sounds occasional wheeze HEART: S1, S2, regular rate and rhythm. No loud murmur ABDOMEN: Soft, no tenderness , guarding or rigidity, no organomegaly EXTREMITIES: No edema of feet. - Labs CBC & Chem 7: 10/07/22 07:02 10/07/22 07:02 Labs: Abnormal Lab Results - Last 24 Hours (Table) 10/05/22 10/06/22 10/06/22 Range/Units 20:42 05:54 06:58 WBC (4.50-10.00) X 10*3/uL Plt Count (140-440) X 10*3/uL Immature Gran # (0.00-0.04) X 10*3/uL Neutrophils # (1.80-7.70) X 10*3/uL Carbon Dioxide 28.8 H (20.0-27.5) mmol/L Anion Gap 9.00 L (10.00-18.00) mmol/L BUN 37.1 H (9.0-27.0) mg/dL Est GFR (CKD-EPI)NonAf 53.3 L (60.0-200.0) BUN/Creatinine Ratio 28.98 H (12.00-20.00) Ratio Glucose 237 H (70-110) mg/dL POC Glucose (mg/dL) 355 H 253 H (70-110) mg/dL Calcium 8.4 L (8.7-10.3) mg/dL AST 12 L (14-35) U/L Total Protein 4.7 L (6.2-8.2) g/dL Albumin 3.1 L (3.8-4.9) g/dL 10/06/22 10/06/22 10/06/22 Range/Units 06:58 11:47 16:45 WBC 15.75 H (4.50-10.00) X 10*3/uL Plt Count 112 L (140-440) X 10*3/uL Immature Gran # 0.06 H (0.00-0.04) X 10*3/uL Neutrophils # 12.96 H (1.80-7.70) X 10*3/uL Carbon Dioxide (20.0-27.5) mmol/L Anion Gap (10.00-18.00) mmol/L BUN (9.0-27.0) mg/dL Est GFR (CKD-EPI)NonAf (60.0-200.0) BUN/Creatinine Ratio (12.00-20.00) Ratio Glucose (70-110) mg/dL POC Glucose (mg/dL) 328 H 267 H (70-110) mg/dL Calcium (8.7-10.3) mg/dL AST (14-35) U/L Total Protein (6.2-8.2) g/dL Albumin (3.8-4.9) g/dL Assessment and Plan (1) MRSA (methicillin resistant staph aureus) culture positive Current Visit: Yes Status: Acute Code(s): Z22.322 - CARRIER OR SUSPECTED CARRIER OF METHICILLIN RESIS STAPH SNOMED Code(s): 478851704 Plan: 1patient with a positive sputum culture with MRSA in this patient present to the hospital about 5 days ago with increasing shortness of breath however the patient did not have any fever CT angiogram of the chest did not show any consolidation did show some interstitial infiltrate and last chest x-ray done on 10/02/2022 did not show any acute process patient did have a very mildly elevated procalcitonin 0.18 on 09/29/2022 clinically not behaving as pneumonia with concern for possible purulent tracheobronchitis 2patient with multiple antibiotic allergies that would limit the number of antibiotics safe to use. 3patient with renal insufficiency limiting the number of antibiotics safe to use. 4Patient did have a normal CRP and a procalcitonin that would go against deep infection/ pneumonia with a positive sputum culture likely representing tracheobronchitis 5patient continued to show slow clinical improvement and will continue the vancomycin while watching his kidney function closely, creatinine has stabilized down to 1.3 and finishing therapy with oral doxycycline Time with Patient: Less than 30
--- NOTE | 2022-10-07 17:06 | P.PN ---
Subjective Progress Note Date: 10/07/22 Principal diagnosis: Sputum MRSA Patient is a 77-year male with multiple comorbidities including COPD CHF atrial fibrillation presented to the hospital with increasing shortness of breath also have a cough sputum positive for MRSA. On today's evaluation that is 10/07/2022 the patient remains to be afebrile, the patient did have an episode of increasing shortness of breath after he tried to do nystatin swish and swallow This morning however the breathing has stabilized since then, the patient denies any worsening cough or sputum production no abdominal pain or diarrhea Objective - Vital Signs Vital signs: Vital Signs Temp 97.5 F L 10/07/22 14:00 Pulse 71 10/07/22 14:00 Resp 16 10/07/22 14:00 BP 112/74 10/07/22 14:00 Pulse Ox 97 10/07/22 14:00 FiO2 Intake & Output 10/06/22 10/07/22 10/07/22 18:59 06:59 18:59 Intake Total 1196 Output Total 1500 600 450 Balance -304 -600 -450 Weight 105.8 kg Intake: Oral 1196 Output: Urine 1500 600 450 Other: Voiding Method Urinal - Exam GENERAL DESCRIPTION: Elderly male lying in bed, no distress. No tachypnea or accessory muscle of respiration use. LUNGS: Unlabored breathing decreased intensity of breath sounds occasional wheeze HEART: S1, S2, regular rate and rhythm. No loud murmur ABDOMEN: Soft, no tenderness , guarding or rigidity, no organomegaly EXTREMITIES: No edema of feet. - Labs CBC & Chem 7: 10/07/22 07:02 10/07/22 07:02 Labs: Abnormal Lab Results - Last 24 Hours (Table) 10/06/22 10/07/22 10/07/22 Range/Units 20:26 05:56 07:02 WBC (4.50-10.00) X 10*3/uL Plt Count (140-440) X 10*3/uL Immature Gran # (0.00-0.04) X 10*3/uL Neutrophils # (1.80-7.70) X 10*3/uL Carbon Dioxide 29.9 H (20.0-27.5) mmol/L Anion Gap 9.10 L (10.00-18.00) mmol/L BUN 33.1 H (9.0-27.0) mg/dL Est GFR (CKD-EPI)NonAf 52.3 L (60.0-200.0) BUN/Creatinine Ratio 25.46 H (12.00-20.00) Ratio Glucose 144 H (70-110) mg/dL POC Glucose (mg/dL) 397 H 166 H (70-110) mg/dL Calcium 8.5 L (8.7-10.3) mg/dL Total Protein 4.8 L (6.2-8.2) g/dL Albumin 3.2 L (3.8-4.9) g/dL 10/07/22 10/07/22 10/07/22 Range/Units 07:02 11:23 16:40 WBC 14.14 H (4.50-10.00) X 10*3/uL Plt Count 116 L (140-440) X 10*3/uL Immature Gran # 0.05 H (0.00-0.04) X 10*3/uL Neutrophils # 10.30 H (1.80-7.70) X 10*3/uL Carbon Dioxide (20.0-27.5) mmol/L Anion Gap (10.00-18.00) mmol/L BUN (9.0-27.0) mg/dL Est GFR (CKD-EPI)NonAf (60.0-200.0) BUN/Creatinine Ratio (12.00-20.00) Ratio Glucose (70-110) mg/dL POC Glucose (mg/dL) 240 H 372 H (70-110) mg/dL Calcium (8.7-10.3) mg/dL Total Protein (6.2-8.2) g/dL Albumin (3.8-4.9) g/dL Assessment and Plan (1) MRSA (methicillin resistant staph aureus) culture positive Current Visit: Yes Status: Acute Code(s): Z22.322 - CARRIER OR SUSPECTED CARRIER OF METHICILLIN RESIS STAPH SNOMED Code(s): 583950606 Plan: 1patient with a positive sputum culture with MRSA in this patient present to the hospital about 5 days ago with increasing shortness of breath however the patient did not have any fever CT angiogram of the chest did not show any consolidation did show some interstitial infiltrate and last chest x-ray done on 10/02/2022 did not show any acute process patient did have a very mildly e levated procalcitonin 0.18 on 09/29/2022 clinically not behaving as pneumonia with concern for possible purulent tracheobronchitis 2patient with multiple antibiotic allergies that would limit the number of antibiotics safe to use. 3patient with renal insufficiency limiting the number of antibiotics safe to use. 4Patient did have a normal CRP and a procalcitonin that would go against deep infection/ pneumonia with a positive sputum culture likely representing tracheobronchitis 5patient is slowly clinically improving he will continue with the vancomycin will need outpatient creatinine remains to be stable at 1.3 and will finish therapy with a short course of oral doxycycline on discharge Time with Patient: Less than 30
[2022-10-07 20:22] LABS: Glucose,Whole Blood 366 mg/dL (70-110)
[2022-10-07] MEDS: INSULIN DETEMIR (LEVEMIR) 100 UNIT/ML SYR SQ SCH (20:29)
[2022-10-07] MEDS: ATORVASTATIN 40 MG TAB PO SCH (20:29)
[2022-10-08 06:33] LABS: Glucose,Whole Blood 204 mg/dL (70-110)
[2022-10-08] MEDS: PANTOPRAZOLE 40 MG TABLET PO SCH (06:44)
[2022-10-08] MEDS: LEVOTHYROXINE 112 MCG TAB PO SCH (06:44)
[2022-10-08] MEDS: MIDODRINE 5 MG TAB PO SCH ×2 (06:44→12:23)
[2022-10-08] MEDS: LEVOTHYROXINE 125 MCG TAB PO SCH (06:44)
[2022-10-08] MEDS: carvediloL 6.25 MG TAB PO SCH (06:44)
[2022-10-08] MEDS: INSULIN ASPART (NovoLOG) 100 UNIT/ML VIAL SQ SCH ×4 (06:45→12:24)
[2022-10-08] MEDS: GLIMEPIRIDE 2 MG TAB PO SCH (06:45)
[2022-10-08] MEDS: SYMBICORT 160-4.5 MCG INHALER INHALATION SCH (08:22)
[2022-10-08 09:00] LABS: Magnesium 1.8 mg/dL (1.5-2.4)
[2022-10-08 09:01] LABS: African American GFR (CKD) 68.1 (60.0-200.0); Albumin/Globulin Ratio 1.99 (1.60-3.17); Anion Gap 4.2 mmol/L (10.00-18.00); BUN/Creat Ratio 27.37 Ratio (12.00-20.00); Blood Urea Nitrogen 32.3 mg/dL (9.0-27.0); Calcium 8.4 mg/dL (8.7-10.3); Carbon Dioxide 33.7 mmol/L (20.0-27.5); Globulin 1.5 g/dL (1.6-3.3); Non-African American GFR(CKD) 58.8 (60.0-200.0); Potassium 4.2 mmol/L (3.5-5.5); Total Bilirubin 0.7 mg/dL (0.30-1.20); Total Protein 4.5 g/dL (6.2-8.2)
[2022-10-08] MEDS: NYSTATIN 100,000 UNIT/ML SUSP 500,000 UNIT/5 ML CUP PO SCH ×2 (09:49→12:24)
[2022-10-08] MEDS: FUROSEMIDE 40 MG TAB PO SCH (09:49)
[2022-10-08] MEDS: predniSONE 10 MG TAB PO SCH (09:49)
[2022-10-08] MEDS: APIXABAN 5 MG TAB PO SCH (09:49)
[2022-10-08] MEDS: allopurinoL 300 MG TAB PO SCH (09:49)
--- NOTE | 2022-10-08 09:59 | CDI ---
Documentation Clarification Form Date: 10/08/2022 09:22:59 AM From: Heidi Watson RN CCDS Admit Date: 09/28/2022 08:03:00 PM Patient Name: Patrick Banuelos Visit Number: [id number] Discharge Date: ATTENTION: The Clinical Documentation Specialists (CDI) and [facility] Coding Staff appreciate your assistance in clarifying documentation. Please respond to the clarification below the line at the bottom and electronically sign. The CDI & [facility] Coding staff will review the response and follow-up if needed. Please note: Queries are made part of the Legal Health Record. If you have any questions, please contact the author of this message via ITS. Dr. Karoline Mg Your patient has MRSA, 10/01, Sputum culture. Based on this information and the findings below, is there an additional diagnosis that is clinically appropriate for this patient? Patient history/risk factors: 76-year-old male presents to the ED with worsening shortness of breath. Medical History: Asthma, COPD and Pneumonia. H&P, 09/29. Clinical Indicators: VS: 09/28 B/P 127/77; HR 90; Temp 97.7F Oral; RR 18; SpO2 98% room air Labs: 09/28 Wbc 16.7; neutrophils 15.7; D-dimer 1.14 09/29 Procalcitonin 0.18 10/04 CRP <0.30 ID Note, 10/07: Patient did have a normal CRP and procalcitonin that would go against deep infection / pneumonia with a positive sputum culture likely representing tracheobronchitis. Nephrology note, 10/07: Acute hypoxic respiratory failure secondary to volume overload and COPD exacerbation / pneumonia. Treatment:09/29 - Albuterol Sulfate Inhalation RT Q4 PRN; 09/29 - Symbicort Inhalation RT BID MARIVEL; 10/03 Vancomycin IVPB Q24H changed 10/07 - Vancomycin IVPB Q16H; 09/29 10/01 Solumedrol 40mg IV Q8H; 10/02 Prednisone PO; 09/28 Solumedrol IV x 1. Is there an additional diagnosis that is clinically appropriate for this patient? [ ] MRSA Pneumonia [ xxx ] MRSA Pneumonia and Tracheobronchitis [ ] MRSA Tracheobronchitis [ ] Other, please specify [ ] Unable to determine (Template Last Reviewed: November 2020) MTDD
[2022-10-08 10:21] LABS: Basophils # (A) 0.01 X 10*3/uL (0.00-0.10); Basophils % (A) 0.1 %; Eosinophils # (A) 0.17 X 10*3/uL (0.04-0.35); Eosinophils % (A) 1.5 %; HCT 40.5 % (39.6-50.0); HGB 13.2 g/dL (13.0-17.0); Immature Grans, Automated 0.5 %; Lymphocytes # (A) 1.76 X 10*3/uL (0.90-5.00); Lymphocytes % (A) 15.3 %; MCH 31.4 pg (27.0-32.0); MCHC 32.6 g/dL (32.0-37.0); MCV 96.2 fL (80.0-97.0); Mean Platelet Volume 10.7 fL (9.5-12.2); Monocytes # (A) 0.78 X 10*3/uL (0.20-1.00); Monocytes % (A) 6.8 %; NRBC Per 100 WBC 0 /100 WBCS (0.0-0.0); Neutrophils % (A) 75.8 %; Platelet Count 100 X 10*3/uL (140-440); RBC 4.21 X 10*6/uL (4.40-5.60); RDW 13.7 % (11.5-14.5); WBC 11.48 X 10*3/uL (4.50-10.00)
--- NOTE | 2022-10-08 11:02 | P.DS ---
Providers Date of admission: 09/28/22 20:03 Expected date of discharge: 10/08/22 Attending physician: Karoline Mg Consults: 09/28/22 20:03 Consult Physician Routine Consulting Provider: [facility] Consult Reason/Comments: CHF exas, exertional dyspnea Do you want consulting provider notified?: Yes, Notify in am Consult Physician Routine Consulting Provider: Neymar Osuna Consult Reason/Comments: Exertional dyspnea Do you want consulting provider notified?: Yes, Notify in am 09/29/22 14:17 Consult Physician Routine Consulting Provider: Karly Weller Consult Reason/Comments: Hyponatremia Do you want consulting provider notified?: Yes 10/03/22 11:57 Consult Physician Routine Consulting Provider: Monae Garcia Consult Reason/Comments: Positive Sputum Cultures, Antibiotic recommendation r/t multiple allergies Do you want consulting provider notified?: Yes Primary care physician: [facility] Course: Diagnosis on discharge: Acute exacerbation of chronic systolic congestive heart failure, with known history of ischemic cardiomyopathy. Acute exacerbation of chronic obstructive pulmonary disease Chest x-ray suspicious for pneumonia patient was started on IV Zithromax he has multiple antibiotic ALLERGIES, CT angiogram of the chest confirmed multiple patchy infiltrate suggestive of pneumonia, sputum culture was positive for MRSA, antibiotic were switched to IV vancomycin, patient was seen by Dr. Garcia and was cleared for discharge on a course of oral doxycycline Coronary artery disease with previous coronary artery bypass graft surgery Atrial fibrillation, maintained on Eliquis Eliquis Underlying history of Diabetes mellitus. Elevated blood sugars. Will add Lantus 10 units at night and order hemoglobin A1c Underlying history of hypertension Underlying history of hyperlipidemia Underlying history of hypothyroidism Underlying history of gout Hospital course: Patrick Banuelos, is a 76-year-old male who presented to [facility] emergency room with a chief complaint of worsening shortness of breath He was evaluated in the emergency room vital examination on presentation revealed a temperature of 97.7 pulse 90 respiration 18 blood pressure 127/77 pulse ox 98% on room air Laboratory data revealed a white blood count of 16.7 hemoglobin 15.9 platelet count 119 sodium 127 potassium 5.8 chloride 103 CO2 24 BUN 13 and creatinine 1.2 Testing in the emergency room revealed chest x-ray done in the emergency room reveals coarse interstitial pulmonary density and minimal pleural fluid and probable pulmonary interstitial fibrosis, CT angiogram of the chest revealed no evidence of pulmonary embolism there was patchy bilateral pulmonary interstitial infiltrates Patient was admitted to medical floor for further evaluation and treatment. On 09/30/2022 patient is alert and oriented 3. Patient reports some improvement with shortness of breath. Patient remains on IV Lasix and IV steroids. Sodium also low at 126 nephrology services have been consulted. Patient denies chest pain. Patient denies nausea vomiting or diarrhea. Patient denies any urinary burning or frequency On 10/01/2022 patient was seen and examined on the medical floor he is alert and oriented 3 in no apparent distress he is still complaining of shortness of breath with activity otherwise he denies any complaints there is no fever or chills no headache or dizziness no chest pain he has occasional cough no nausea or vomiting no abdominal pain no diarrhea and no urinary symptoms. He is maintained on IV Lasix IV steroids and IV Zithromax pulmonary cardiology and nephrology are following, input reviewed carefully will recheck labs and chest x-ray in a.m. On 10/02/2022 patient was seen and examined on the medical floor he is alert and oriented 3 in no apparent distress there is no fever or chills no headache or dizziness he is still complaining of shortness of breath with any activity there is no nausea or vomiting no abdominal pain no diarrhea no blood in the stools no burning with urination no frequency or urgency and no hematuria he is still maintained on IV Lasix, nephrology are following 10/03/2022 patient is alert and oriented 3. Patient reports some improvement shortness of breath. Patient remains on IV diuretics. Sodium 129, creatinine 1.8. Nephrology services are following. Temp 97.8, heart rate 86, respiratory rate 20, blood pressure 101/72 with pulse ox 93%. Blood sugars remain high will add Lantus 10 units ordered hemoglobin A1c On 10/04/2022 patient was seen and examined on the medical floor he is alert and oriented 3 in no distress there is no fever or chills no headache or dizziness he is still complaining of shortness of breath with any activity there is no nausea or vomiting no abdominal pain no diarrhea no blood in the stools no burning with urination no frequency or urgency and no hematuria he is still maintained on IV Lasix, nephrology are following On 10/05/2022 patient is alert and oriented 3. Patient still having elevated blood sugars will increase to 15 units. Patient also noted to have an elevated white blood cell count will cut prednisone down to 10. Patient remains on IV vancomycin. Infectious disease, nephrology and pulmonary services are following. Patient reports improvement with shortness of breath. Patient denies chest pain. Patient denies nausea vomiting or diarrhea. Patient denies any urinary burning or frequency On 10/06/2022 patient was seen and examined on the medical floor, he is alert and oriented 3 in no apparent distress, he is reporting improvement in his chest congestion and shortness of breath otherwise he denies any complaints there is no fever or chills no headache or dizziness no chest pain, no cough no nausea or vomiting no abdominal pain no diarrhea no blood in the stools no burning with urination no frequency or urgency and no hematuria. Patient is receiving IV vancomycin, for sputum positive for MRSA, steroids are being tapered down, patient is receiving insulin for hyperglycemia, will recheck labs in a.m. and continue to monitor closely. On 10/07/2022 patient was seen and examined on the medical floor he is alert and oriented 3 in no apparent distress there is no fever or chills no headache or dizziness no chest pain no shortness of breath no cough no nausea or vomiting no abdominal pain no diarrhea no blood in the stools no burning with urination no frequency or urgency and no hematuria. At this time, we are awaiting decision by infectious disease in regard to antibiotic at the time of discharge, will continue with current medical On 10/08/2022 patient was seen and examined on the medical floor he is alert and oriented 3 in no distress his cough and shortness of breath has improved there is no fever or chills no headache or dizziness no chest pain no nausea or vomiting no abdominal pain no diarrhea no blood in the stools no burning with urination no frequency or urgency no hematuria. Case was discussed with Dr. Garcia. He cleared patient for discharge on a course of oral doxycycline for 7 more days. Patient was maintained on steroid during this admission this was tapered down to prednisone 10 mg at the time of discharge, he was given a prescription for prednisone 5 mg for 7 more days, he was maintained on insulin during his hospital stay, however he states that he never used insulin at home and he does not wish to use insulin, he was told to monitor his sugar level closely and to contact Dr. Bermudez's office if elevated. Patient will follow with Dr. Bermudez in 2-3 days Patient Condition at Discharge: Stable Plan - Discharge Summary Discharge Rx Participant: No New Discharge Prescriptions: New Nystatin 100,000 Unit/ml Susp [Mycostatin Oral Susp] 500,000 unit PO QID ml Furosemide [Lasix] 40 mg PO DAILY tab predniSONE 5 mg PO DAILY 7 Days #7 tab Midodrine [ProAmatine] 5 mg PO AC-TID tab Doxycycline [Vibramycin] 100 mg PO BID 7 Days #14 cap Continue allopurinoL [Zyloprim] 300 mg PO DAILY Levothyroxine Sodium [Synthroid] 125 mcg PO DAILY Gabapentin 1,200 mg PO TID Levothyroxine Sodium [Synthroid] 112 mcg PO DAILY Nitroglycerin Sl Tabs [Nitrostat] 0.4 mg SL Q5M PRN PRN Reason: Chest Pain carvediloL [Coreg] 6.25 mg PO BID-W/MEALS Glimepiride [Amaryl] 2 mg PO W/BRKFST Omeprazole [PriLOSEC] 40 mg PO DAILY Meclizine [Antivert] 12.5 mg PO TID PRN PRN Reason: Vertigo Magnesium Oxide [Mag-Ox] 400 mg PO BID Budesonide/Formoterol Fumarate [Symbicort 80-4.5 Mcg Inhaler] 2 puff INHALATION RT-BID Atorvastatin [Lipitor] 40 mg PO HS Apixaban [Eliquis] 5 mg PO BID Albuterol Nebulized [Ventolin Nebulized (Accuneb)] 1.25 mg INHALATION DIRECTED PRN PRN Reason: Wheezing metFORMIN HCL [Glucophage] 500 mg PO BID HYDROcodone/APAP 7.5-325MG [[place] 7.5-325] 1 tab PO BID PRN PRN Reason: Pain Discontinued predniSONE See Taper PO DAILY Cefdinir [Omnicef] 300 mg PO Q12HR Discharge Medication List allopurinoL [Zyloprim] 300 mg PO DAILY 08/07/17 [History] Gabapentin 1,200 mg PO TID 10/02/18 [History] Levothyroxine Sodium [Synthroid] 112 mcg PO DAILY 10/02/18 [History] Levothyroxine Sodium [Synthroid] 125 mcg PO DAILY 10/02/18 [History] Nitroglycerin Sl Tabs [Nitrostat] 0.4 mg SL Q5M PRN 10/02/18 [History] carvediloL [Coreg] 6.25 mg PO BID-W/MEALS 03/17/21 [History] Atorvastatin [Lipitor] 40 mg PO HS 10/19/21 [History] Albuterol Nebulized [Ventolin Nebulized (Accuneb)] 1.25 mg INHALATION DIRECTED PRN 09/28/22 [History] Apixaban [Eliquis] 5 mg PO BID 09/28/22 [History] Budesonide/Formoterol Fumarate [Symbicort 80-4.5 Mcg Inhaler] 2 puff INHALATION RT-BID 09/28/22 [History] Glimepiride [Amaryl] 2 mg PO W/BRKFST 09/28/22 [History] HYDROcodone/APAP 7.5-325MG [[place] 7.5-325] 1 tab PO BID PRN 09/28/22 [History] Magnesium Oxide [Mag-Ox] 400 mg PO BID 09/28/22 [History] Meclizine [Antivert] 12.5 mg PO TID PRN 09/28/22 [History] Omeprazole [PriLOSEC] 40 mg PO DAILY 09/28/22 [History] metFORMIN HCL [Glucophage] 500 mg PO BID 09/28/22 [History] Doxycycline [Vibramycin] 100 mg PO BID 7 Days #14 cap 10/08/22 [Rx] Furosemide [Lasix] 40 mg PO DAILY tab 10/08/22 [Rx] Midodrine [ProAmatine] 5 mg PO AC-TID tab 10/08/22 [Rx] Nystatin 100,000 Unit/ml Susp [Mycostatin Oral Susp] 500,000 unit PO QID ml 10/08/22 [Rx] predniSONE 5 mg PO DAILY 7 Days #7 tab 10/08/22 [Rx] Follow up Appointment(s)/Referral(s): Teresa Walter MD [Primary Care Provider] - 10/10/22 11:00 am [facility], [NON-STAFF] - As Needed Activity/Diet/Wound Care/Special Instructions: Please call for home meal delivery. [facility] Commission: #[phone].
[2022-10-08 11:26] LABS: Glucose,Whole Blood 242 mg/dL (70-110)
--- NOTE | 2022-10-08 12:05 | P.PN ---
Subjective Patient is seen in follow-up for acute kidney injury. Creatinine peaked at 2.0 on 09/30/2022 and is improved to 1.2. On po Lasix. Good urine output. Denies chest pain. On room air. No active complaints at this time. Possible discharge today. Vital signs are stable. General: Awake. No acute distress. HEENT: Head exam is unremarkable. LUNGS: Breath sounds decreased. HEART: Rate and Rhythm are regular. ABDOMEN: Soft, no distention. EXTREMITITES: No edema. Objective - Vital Signs Vital signs: Vital Signs Temp 97.3 F L 10/08/22 08:00 Pulse 63 10/08/22 08:00 Resp 16 10/08/22 08:00 BP 101/63 10/08/22 08:00 Pulse Ox 97 10/08/22 08:00 FiO2 Intake & Output 10/07/22 10/08/22 10/08/22 18:59 06:59 18:59 Intake Total 1137 Output Total 1450 600 Balance -313 -600 Weight 107.4 kg Intake: Oral 1137 Output: Urine 1450 600 Other: Voiding Method Toilet Toilet - Labs CBC & Chem 7: 10/08/22 05:26 10/08/22 05:26 Labs: Abnormal Lab Results - Last 24 Hours (Table) 10/07/22 10/07/22 10/08/22 Range/Units 16:40 20:20 05:26 WBC (4.50-10.00) X 10*3/uL RBC (4.40-5.60) X 10*6/uL Plt Count (140-440) X 10*3/uL Immature Gran # (0.00-0.04) X 10*3/uL Neutrophils # (1.80-7.70) X 10*3/uL Carbon Dioxide 33.7 H (20.0-27.5) mmol/L Anion Gap 4.20 L (10.00-18.00) mmol/L BUN 32.3 H (9.0-27.0) mg/dL Est GFR (CKD-EPI)NonAf 58.8 L (60.0-200.0) BUN/Creatinine Ratio 27.37 H (12.00-20.00) Ratio Glucose 229 H (70-110) mg/dL POC Glucose (mg/dL) 372 H 366 H (70-110) mg/dL Calcium 8.4 L (8.7-10.3) mg/dL AST 10 L (14-35) U/L Total Protein 4.5 L (6.2-8.2) g/dL Albumin 3.0 L (3.8-4.9) g/dL Globulin 1.5 L (1.6-3.3) g/dL 10/08/22 10/08/22 10/08/22 Range/Units 05:26 06:30 11:24 WBC 11.48 H (4.50-10.00) X 10*3/uL RBC 4.21 L (4.40-5.60) X 10*6/uL Plt Count 100 L (140-440) X 10*3/uL Immature Gran # 0.06 H (0.00-0.04) X 10*3/uL Neutrophils # 8.70 H (1.80-7.70) X 10*3/uL Carbon Dioxide (20.0-27.5) mmol/L Anion Gap (10.00-18.00) mmol/L BUN (9.0-27.0) mg/dL Est GFR (CKD-EPI)NonAf (60.0-200.0) BUN/Creatinine Ratio (12.00-20.00) Ratio Glucose (70-110) mg/dL POC Glucose (mg/dL) 204 H 242 H (70-110) mg/dL Calcium (8.7-10.3) mg/dL AST (14-35) U/L Total Protein (6.2-8.2) g/dL Albumin (3.8-4.9) g/dL Globulin (1.6-3.3) g/dL Assessment and Plan Plan: Assessment: 1. Acute kidney injury secondary to ATN secondary to cardiorenal syndrome. Al so component of contrast-induced acute kidney injury as he received IV contrast on 09/28/2022. Right kidney atrophic. No hydronephrosis noted on ultrasound. UA benign. Creatinine peaked at 2.0 on 09/30/2022 and improved to 1.2. 2. Acute hypoxic respiratory failure secondary to volume overload and COPD exacerbation/pneumonia. 3. Hypervolemic hyponatremia with component of hypertonicity from hy perglycemia. Better. 4. Hyperkalemia secondary to hyperglycemia. Better. 5. Chronic kidney disease stage III with baseline creatinine 1-1.2. Etiology is nephrosclerosis. UA benign. Renal ultrasound showed atrophic right kidney with no evidence of hydronephrosis. 6. Metabolic acidosis secondary to acute kidney injury. Resolved. Bicarb discontinued. 7. Diabetes mellitus. Exacerbated by steroids. Plan: Maintain oral Lasix. Low-salt diet and 1200 mL fluid restriction. Blood sugar control. Avoid nephrotoxins. Follow-up outpatient 1 week post discharge. Advised to monitor his weight closely at home and notify physician if develops edema or gains more than 3-4 pounds in one week duration.
[2022-10-08] MEDS: GABAPENTIN 400 MG CAP PO SCH (12:23)
[2022-10-08 15:24] VITALS: BP 116/74; PULSE 60; RESP 18; TEMP 97.6
[2022-10-09] MEDS ORDERED: VANCOMYCIN TROUGH DUE 1 EACH MISC MISCELLANE ONE (07:00)
== END 2022-10-08 16:50 | disposition home health service (06) | DRG 291 ==
LOC: EC 16:11 → 5NMEDONC 20:03 → 4SSUR 09-29 00:29
PROVIDERS: ADMIT Internal Medicine; ATTEND Internal Medicine
DX: I13.0 Hypertensive heart and chronic kidney disease with heart failure and stage 1 through stage 4 chronic kidney disease, or unspecified chronic kidney disease (principal); I50.23 Acute on chronic systolic (congestive) heart failure; J18.9 Pneumonia, unspecified organism; J96.01 Acute respiratory failure with hypoxia; N17.0 Acute kidney failure with tubular necrosis; E87.1 Hypo-osmolality and hyponatremia; E87.20 Acidosis, unspecified; I48.21 Permanent atrial fibrillation; I48.92 Unspecified atrial flutter; J44.0 Chronic obstructive pulmonary disease with (acute) lower respiratory infection; J44.1 Chronic obstructive pulmonary disease with (acute) exacerbation; J98.11 Atelectasis; B95.62 Methicillin resistant Staphylococcus aureus infection as the cause of diseases classified elsewhere; E11.22 Type 2 diabetes mellitus with diabetic chronic kidney disease; E11.65 Type 2 diabetes mellitus with hyperglycemia; N18.30 Chronic kidney disease, stage 3 unspecified; E66.9 Obesity, unspecified; R62.7 Adult failure to thrive; J84.10 Pulmonary fibrosis, unspecified; I27.20 Pulmonary hypertension, unspecified; Z79.01 Long term (current) use of anticoagulants; Z68.31 Body mass index [BMI] 31.0-31.9, adult; E86.1 Hypovolemia; Z95.1 Presence of aortocoronary bypass graft; E78.5 Hyperlipidemia, unspecified; E87.5 Hyperkalemia; I25.10 Atherosclerotic heart disease of native coronary artery without angina pectoris; E03.9 Hypothyroidism, unspecified; I25.2 Old myocardial infarction; I25.5 Ischemic cardiomyopathy; I45.10 Unspecified right bundle-branch block; M10.9 Gout, unspecified; T38.0X5A Adverse effect of glucocorticoids and synthetic analogues, initial encounter; Z79.51 Long term (current) use of inhaled steroids; Z79.84 Long term (current) use of oral hypoglycemic drugs; Z79.890 Hormone replacement therapy; Z79.899 Other long term (current) drug therapy; Z82.49 Family history of ischemic heart disease and other diseases of the circulatory system; Z83.3 Family history of diabetes mellitus; Z87.891 Personal history of nicotine dependence; Z88.1 Allergy status to other antibiotic agents; Z91.041 Radiographic dye allergy status; Z88.5 Allergy status to narcotic agent; Z96.652 Presence of left artificial knee joint; Z98.61 Coronary angioplasty status; Z20.822 Contact with and (suspected) exposure to COVID-19; Z87.01 Personal history of pneumonia (recurrent)
CPT/HCPCS: 36415; 71046; 71275; 76770; 80048; 80053; 80202; 81003; 83036; 83690; 83735; 83880; 84145; 84484; 85025; 85027; 85379; 86140; 87070; 87077; 87186; 87205; 87635; 93005; 94640; 96374; 96375; 99285

== ENCOUNTER 2022-11-06 20:56 | Emergency (ER) | payer MEDICARE ==
[2022-11-06 21:17] VITALS: TEMP 98
[2022-11-06] MEDS ORDERED: METOPROLOL TARTRATE 5 MG/5 ML VIAL IVP SCH (22:00)
[2022-11-06 22:12] LABS: Anisocytosis Slight; Basophils # (A) 0.1 k/uL (0-0.2); Basophils % (A) 1 %; Eosinophils # (A) 0.2 k/uL (0-0.7); Eosinophils % (A) 2 %; HCT 35.8 % (39.0-53.0); Hypochromasia Moderate; Lymphocytes # (A) 1.5 k/uL (1.0-4.8); Lymphocytes % (A) 15 %; MCH 31.6 pg (25.0-35.0); MCV 95.9 fL (80.0-100.0); Macrocytosis Slight; Mean Platelet Volume 7.9; Monocytes # (A) 0.8 k/uL (0-1.0); Monocytes % (A) 8 %; Neutrophils # (A) 7.1 k/uL (1.3-7.7); Neutrophils % (A) 73 %; Platelet Count 247 k/uL (150-450); Poikilocytosis Moderate; RBC 3.74 m/uL (4.30-5.90); RDW 16.7 % (11.5-15.5); WBC 9.7 k/uL (3.8-10.6)
[2022-11-06 22:18] LABS: HGB 11.8 gm/dL (13.0-17.5)
[2022-11-06 22:22] LABS: Calcium 8.3 mg/dL (8.4-10.2); Magnesium 1.5 mg/dL (1.6-2.3); Potassium 3.9 mmol/L (3.5-5.1); Total Bilirubin 1.1 mg/dL (0.2-1.3); Total Protein 5.4 g/dL (6.3-8.2)
[2022-11-06 22:24] LABS: INR 1.1 (<1.2); Prothrombin Time 11.7 sec (9.0-12.0)
--- NOTE | 2022-11-06 22:32 | XR ---
EXAMINATION TYPE: XR chest 2V DATE OF EXAM: 11/06/2022 COMPARISON: 10/30/2022 HISTORY: Dysrhythmia TECHNIQUE: FINDINGS: There is general coarse interstitial density in the lung fuentes. There are sternal wires. T horacic aorta is atheromatous. No pleural fluid. There are chest leads. IMPRESSION: Pulmonary interstitial fibrosis without change. No definite heart failure.
[2022-11-06 22:51] VITALS: RESP 18
[2022-11-06] MEDS ORDERED: MAGNESIUM OXIDE 400 MG TAB PO STA (22:56)
--- NOTE | 2022-11-06 22:56 | ED ---
Arrhythmia/Palpitations HPI - General Chief Complaint: Arrhythmia/Palpitations Stated Complaint: AFib Time Seen by Provider: 11/06/22 21:02 Source: patient Mode of arrival: EMS Limitations: no limitations - History of Present Illness Initial Comments: This patient is a 77-year-old man who presents here to have evaluation for palpitations. The patient states he does have known history of atrial fibrillation, and that he has been having episodes where his heart rate will accelerate and he'll fill pounding sensation. He denies any diaphoresis, dyspne a, chest pain. The patient does note that he had been admitted in the hospital for CHF and COPD flareup in early September. When he left the hospital he notes that his carvedilol was not renewed. The patient does note that the palpitations are mainly exertional. It does not seem to bother him when he is just at rest but when he is getting up he notes that his heart will accelerate. MD Complaint: palpitations -: days(s) Context: occurred during exertion Arrhythmia History: other Associated Symptoms: denies other symptoms - Related Data Home Medications Medication Instructions Recorded Confirmed allopurinoL [Zyloprim] 300 mg PO DAILY 08/07/17 09/28/22 Gabapentin 1,200 mg PO TID 10/02/18 09/28/22 Levothyroxine Sodium [Synthroid] 112 mcg PO DAILY 10/02/18 09/28/22 Levothyroxine Sodium [Synthroid] 125 mcg PO DAILY 10/02/18 09/28/22 Nitroglycerin Sl Tabs [Nitrostat] 0.4 mg SL Q5M PRN 10/02/18 09/28/22 carvediloL [Coreg] 6.25 mg PO BID-W/MEALS 03/17/21 09/28/22 Atorvastatin [Lipitor] 40 mg PO HS 10/19/21 09/28/22 Albuterol Nebulized [Ventolin 1.25 mg INHALATION DIRECTED PRN 09/28/22 09/28/22 Nebulized (Accuneb)] Apixaban [Eliquis] 5 mg PO BID 09/28/22 09/28/22 Budesonide/Formoterol Fumarate 2 puff INHALATION RT-BID 09/28/22 09/28/22 [Symbicort 80-4.5 Mcg Inhaler] Glimepiride [Amaryl] 2 mg PO W/BRKFST 09/28/22 09/28/22 HYDROcodone/APAP 7.5-325MG [[place] 1 tab PO BID PRN 09/28/22 09/28/22 7.5-325] Magnesium Oxide [Mag-Ox] 400 mg PO BID 09/28/22 09/28/22 Meclizine [Antivert] 12.5 mg PO TID PRN 09/28/22 09/28/22 Omeprazole [PriLOSEC] 40 mg PO DAILY 09/28/22 09/28/22 metFORMIN HCL [Glucophage] 500 mg PO BID 09/28/22 09/28/22 Previous Rx's Medication Instructions Recorded Doxycycline [Vibramycin] 100 mg PO BID 7 Days #14 cap 10/08/22 Furosemide [Lasix] 40 mg PO DAILY tab 10/08/22 Midodrine [ProAmatine] 5 mg PO AC-TID tab 10/08/22 Nystatin 100,000 Unit/ml Susp 500,000 unit PO QID ml 10/08/22 [Mycostatin Oral Susp] predniSONE 5 mg PO DAILY 7 Days #7 tab 10/08/22 Allergies Allergy/AdvReac Type Severity Reaction Status Date / Time Sulfa (Sulfonamide Allergy Mild Rash/Hives Verified 11/06/22 21:18 Antibiotics) cephalexin [From Keflex] Allergy Unknown Verified 09/28/22 20:38 clopidogrel [From Plavix] Allergy Rash/Hives Verified 09/28/22 20:38 codeine Allergy Rash/Nausea Verified 09/28/22 20:38 & Vomiting Iodine and Iodide Containing Allergy Rash/Hives Verified 09/28/22 20:38 Produc levofloxacin [From Levaquin] Allergy urticaria/r Verified 09/28/22 20:38 belle shellfish derived [Shellfish] Allergy urticaria/r Verified 09/28/22 20:38 belle lisinopril AdvReac Angiodema Verified 09/28/22 20:38 of tongue oxycodone AdvReac Hallucinati Verified 09/28/22 20:38 ons solifenacin AdvReac Nausea & Verified 09/28/22 20:38 Vomiting Review of Systems ROS Statement: Those systems with pertinent positive or pertinent negative responses have been documented in the HPI. ROS Other: All systems not noted in ROS Statement are negative. Constitutional: Denies: fever, chills, weakness Eyes: Denies: vision change Respiratory: Denies: cough, dyspnea Cardiovascular: Reports: palpitations. Denies: chest pain, orthopnea, edema, syncope Gastrointestinal: Denies: abdominal pain, vomiting, diarrhea, melena, hematochezia Genitourinary: Denies: dysuria, hematuria Musculoskeletal: Denies: back pain Skin: Denies: rash Neurological: Denies: headache, weakness Past Medical History Past Medical History: Atrial Fibrillation, Asthma, Coronary Artery Disease (CAD), COPD, Diabetes Mellitus, Hypertension, Myocardial Infarction ([place]), Pneumonia Additional Past Medical History / Comment(s): left knee cap broken, pancreatitis, /gallstones Last Myocardial Infarction Date:: 2017 History of Any Multi-Drug Resistant Organisms: None Reported Date of last positivie culture/infection: 10/01/22 MDRO Source:: Sputum Past Surgical History: Cholecystectomy, Coronary Bypass/CABG, Heart Catheterization With Stent, Hernia Repair, Orthopedic Surgery Additional Past Surgical History / Comment(s): lt knee replacement(total of 4 sx), colonoscopy, Left knee cap removal with antibiotic spacers placed, Past Anesthesia/Blood Transfusion Reactions: No Reported Reaction Date of Last Stent Placement:: 10/2015 Past Psychological History: No Psychological Hx Reported Smoking Status: Former smoker Past Alcohol Use History: Occasional Past Drug Use History: None Reported - Past Family History Father Family Medical History: Diabetes Mellitus Mother Family Medical History: CVA/TIA, Hypertension General Exam Limitations: no limitations General appearance: alert, in no apparent distress Head exam: Present: atraumatic, normocephalic Eye exam: Present: normal appearance. Absent: scleral icterus, conjunctival injection Neck exam: Present: normal inspection Respiratory exam: Present: normal lung sounds bilaterally. Absent: respiratory distress, wheezes, rales, rhonchi, stridor Cardiovascular Exam: Present: irregular rhythm (Rate in the upper 80s at my exam), systolic murmur. Absent: diastolic murmur, rubs, gallop GI/Abdominal exam: Present: soft. Absent: distended, tenderness, guarding, rebound, rigid, mass Extremities exam: Present: normal inspection, normal capillary refill. Absent: pedal edema, calf tenderness Back exam: Present: normal inspection. Absent: CVA tenderness (R), CVA tenderness (L) Neurological exam: Present: alert Skin exam: Present: warm, dry, intact, normal color. 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 - EKG Results: EKG: interpreted by ERMD EKG shows: atrial fibrillation (Rate 93 bpm) - Dysrhythmias: Supraventricular dysrhythmia: atrial fibrillation - Blocks, [place], Hypertrophy, ST Abn: AV and intraventricular conduction: right bundle branch block ( fixed/intermittent, complete/incomplete), left anterior fascicular block Medical Decision Making - Medical Decision Making Patient 77-year-old man here with atrial fibrillation that is intermittently accompanied by rapid ventricular rate. At times on the monitor he was jumping up to 130s. This was mainly when he would attempt this get up or sit up in bed. The patient was given 1 dose of beta brigido here which did slow his rate further. He is not having symptoms and he would like to go home. Discussed follow-up with the bingo caller and he will do that to see about restarting his carvedilol. We discussed appropriate return parameters and follow-up he'll return if any new symptoms develop and these return parameters were reviewed. I did interpret the patient's chest x-ray as showing no acute infiltrate. Suspect underlying chronic lung disease Was pt. sent in by a medical professional or institution? @ -No Did you speak to anyone other than the patient for history? @ -[No Did you review nursing and triage notes? @ -[agree Were old charts reviewed? @ -[Previous records Differential Diagnosis? @ -[Differential diagnosis of patient's palpitations included atrial arrhythmias, ventricular arrhythmias, acute myocardial infarction, electrolyte abnormality, acute hypoxemia, among other entities EKG interpreted by me (3pts min.)? @ -[See chart X-rays interpreted by me (1pt min.)? @ -[See chart CT interpreted by me (1pt min.)? @ -[none] U/S interpreted by me (1pt. min.)? @ -[none] What testing was considered but not performed? (CT, X-rays, U/S, labs)? Why? @ [None What meds were considered but not given? Why? @ -[none] Did you discuss the management of the patient with other professionals? @ -[None Did you reconcile home meds? @ -[Yes Was smoking cessation discussed for >3mins.? @ -[none] Was critical care preformed (if so, how long)? @ -[none] Were there social determinants of health that impacted care today? How? (Home lessness, low income, unemployed, alcoholism, drug addiction, transportation, low edu. Level, literacy, decrease access to med. care, prison, rehab)? @ -[None Was there de-escalation of care discussed even if they declined? (Discuss DNR or withdrawal of care, Hospice)? @ -[No What co-morbidities impacted this encounter? (DM, HTN, Smoking, COPD, CAD, Cancer, CVA, Hep., AIDS, mental health diagnosis, sleep apnea, morbid obesity)? @ -[Atrial fibrillation Was patient admitted / discharged? @ -[Discharged Undiagnosed new problem with uncertain prognosis? @ -[none] Drug Therapy requiring intensive monitoring for toxicity (Heparin, Nitro, Insulin, Cardizem)? @ -[none] Were any procedures done? @ -[none] Diagnosis/symptom? @ -[1. Atrial fibrillation with rapid ventricular rate 2. Anemia 3.Hypomagnesemia Acute, or Chronic, or Acute on Chronic? @ -[1. Acute on chronic 2. Recurrent acute 3. Chronic Uncomplicated (without systemic symptoms) or Complicated (systemic symptoms)? @ -[Uncomplicated Side effects of treatment? @ -[none] Exacerbation, Progression, or Severe Exacerbation] @ -[no] Poses a threat to life or bodily function? @ -[no] - Lab Data Result diagrams: 11/06/22 21:57 11/06/22 21:57 Lab Results 11/06/22 11/06/22 11/06/22 Range/Units 21:57 21:57 21:57 WBC 9.7 (3.8-10.6) k/uL RBC 3.74 L (4.30-5.90) m/uL Hgb 11.8 L D (13.0-17.5) gm/dL Hct 35.8 L (39.0-53.0) % MCV 95.9 (80.0-100.0) fL MCH 31.6 (25.0-35.0) pg MCHC 33.0 (31.0-37.0) g/dL RDW 16.7 H (11.5-15.5) % Plt Count 247 (150-450) k/uL MPV 7.9 Neutrophils % 73 % Lymphocytes % 15 % Monocytes % 8 % Eosinophils % 2 % Basophils % 1 % Neutrophils # 7.1 (1.3-7.7) k/uL Lymphocytes # 1.5 (1.0-4.8) k/uL Monocytes # 0.8 (0-1.0) k/uL Eosinophils # 0.2 (0-0.7) k/uL Basophils # 0.1 (0-0.2) k/uL Hypochromasia Moderate Poikilocytosis Moderate Anisocytosis Slight Macrocytosis Slight PT 11.7 (9.0-12.0) sec INR 1.1 (<1.2) APTT 27.0 (22.0-30.0) sec Sodium 139 (137-145) mmol/L Potassium 3.9 (3.5-5.1) mmol/L Chloride 107 (98-107) mmol/L Carbon Dioxide 26 (22-30) mmol/L Anion Gap 6 mmol/L BUN 12 (9-20) mg/dL Creatinine 1.21 (0.66-1.25) mg/dL Est GFR (CKD-EPI)AfAm 66 (>60 ml/min/1.73 sqM) Est GFR (CKD-EPI)NonAf 57 (>60 ml/min/1.73 sqM) Glucose 151 H (74-99) mg/dL Calcium 8.3 L (8.4-10.2) mg/dL Magnesium 1.5 L (1.6-2.3) mg/dL Total Bilirubin 1.1 (0.2-1.3) mg/dL AST 20 (17-59) U/L ALT 11 (4-49) U/L Alkaline Phosphatase 61 (38-126) U/L Troponin I (0.000-0.034) ng/mL Total Protein 5.4 L (6.3-8.2) g/dL Albumin 3.0 L (3.5-5.0) g/dL 11/06/22 Range/Units 21:57 WBC (3.8-10.6) k/uL RBC (4.30-5.90) m/uL Hgb (13.0-17.5) gm/dL Hct (39.0-53.0) % MCV (80.0-100.0) fL MCH (25.0-35.0) pg MCHC (31.0-37.0) g/dL RDW (11.5-15.5) % Plt Count (150-450) k/uL MPV Neutrophils % % Lymphocytes % % Monocytes % % Eosinophils % % Basophils % % Neutrophils # (1.3-7.7) k/uL Lymphocytes # (1.0-4.8) k/uL Monocytes # (0-1.0) k/uL Eosinophils # (0-0.7) k/uL Basophils # (0-0.2) k/uL Hypochromasia Poikilocytosis Anisocytosis Macrocytosis PT (9.0-12.0) sec INR (<1.2) APTT (22.0-30.0) sec Sodium (137-145) mmol/L Potassium (3.5-5.1) mmol/L Chloride (98-107) mmol/L Carbon Dioxide (22-30) mmol/L Anion Gap mmol/L BUN (9-20) mg/dL Creatinine (0.66-1.25) mg/dL Est GFR (CKD-EPI)AfAm (>60 ml/min/1.73 sqM) Est GFR (CKD-EPI)NonAf (>60 ml/min/1.73 sqM) Glucose (74-99) mg/dL Calcium (8.4-10.2) mg/dL Magnesium (1.6-2.3) mg/dL Total Bilirubin (0.2-1.3) mg/dL AST (17-59) U/L ALT (4-49) U/L Alkaline Phosphatase (38-126) U/L Troponin I 0.016 (0.000-0.034) ng/mL Total Protein (6.3-8.2) g/dL Albumin (3.5-5.0) g/dL Disposition Clinical Impression: Atrial fibrillation with rapid ventricular response, Anemia, Hypomagnesemia Disposition: HOME SELF-CARE Condition: Good Instructions (If sedation given, give patient instructions): A-fib (Atrial Fibrillation) (ED), Hypomagnesemia (ED) Is patient prescribed a controlled substance at d/c from ED?: No Referrals: Teresa Walter MD [Primary Care Provider] - 1-2 days Mich Xie MD [STAFF PHYSICIAN] - 1-2 days
[2022-11-06 23:16] VITALS: BP 115/75; PULSE 102
== END 2022-11-06 23:31 | disposition home or self-care (01) ==
LOC: EC 20:56
DX: I48.91 Unspecified atrial fibrillation (principal); D64.9 Anemia, unspecified; E83.42 Hypomagnesemia; J84.10 Pulmonary fibrosis, unspecified; I25.10 Atherosclerotic heart disease of native coronary artery without angina pectoris; J44.9 Chronic obstructive pulmonary disease, unspecified; E11.9 Type 2 diabetes mellitus without complications; I25.2 Old myocardial infarction; I11.0 Hypertensive heart disease with heart failure; I50.9 Heart failure, unspecified; Z87.891 Personal history of nicotine dependence; Z79.84 Long term (current) use of oral hypoglycemic drugs; Z79.01 Long term (current) use of anticoagulants; Z79.899 Other long term (current) drug therapy; Z79.51 Long term (current) use of inhaled steroids; Z88.1 Allergy status to other antibiotic agents; Z88.2 Allergy status to sulfonamides; Z88.5 Allergy status to narcotic agent; Z88.8 Allergy status to other drugs, medicaments and biological substances; Z91.013 Allergy to seafood; Z91.041 Radiographic dye allergy status
CPT/HCPCS: 36415; 71046; 80053; 83735; 84484; 85025; 85610; 85730; 93005; 96374; 99285

== ENCOUNTER 2022-11-22 13:01 | Emergency (ER) | payer MEDICARE ==
[2022-11-22 13:06] VITALS: TEMP 98
[2022-11-22 14:29] LABS: Basophils # (A) 0.2 k/uL (0-0.2); Basophils % (A) 1 %; Eosinophils # (A) 0.6 k/uL (0-0.7); Eosinophils % (A) 6 %; HCT 40.8 % (39.0-53.0); HGB 12.9 gm/dL (13.0-17.5); Hypochromasia Slight; Lymphocytes # (A) 1.4 k/uL (1.0-4.8); Lymphocytes % (A) 13 %; MCHC 31.6 g/dL (31.0-37.0); MCV 97.9 fL (80.0-100.0); Macrocytosis Slight; Mean Platelet Volume 7.7; Monocytes # (A) 0.8 k/uL (0-1.0); Monocytes % (A) 7 %; Neutrophils # (A) 7.6 k/uL (1.3-7.7); Neutrophils % (A) 72 %; Platelet Count 254 k/uL (150-450); Poikilocytosis Moderate; RBC 4.16 m/uL (4.30-5.90); RDW 15.8 % (11.5-15.5); WBC 10.5 k/uL (3.8-10.6)
[2022-11-22 14:40] LABS: INR 1.1 (<1.2); Partial Thromboplastin Time 28.1 sec (22.0-30.0); Prothrombin Time 11.4 sec (9.0-12.0)
[2022-11-22 14:45] LABS: Albumin 3.6 g/dL (3.5-5.0); Calcium 8.4 mg/dL (8.4-10.2); Magnesium 1.5 mg/dL (1.6-2.3); Potassium 3.8 mmol/L (3.5-5.1); Total Bilirubin 1.3 mg/dL (0.2-1.3); Total Protein 6.6 g/dL (6.3-8.2)
--- NOTE | 2022-11-22 14:51 | XR ---
EXAMINATION TYPE: XR chest 2V DATE OF EXAM: 11/22/2022 COMPARISON: 11/06/2022 HISTORY: Shortness of breath, weakness, confusion, atrial fibrillation TECHNIQUE: Frontal and lateral views of the chest are obtained. FINDINGS: Median sternotomy postsurgical changes are present. Although the cardiomediastinal silhoue tte is widened compared to previous examination, this is an AP technique. Diffusely prominent interst itial lung markings are stable. No pneumothorax. No acute osseous abnormality. IMPRESSION: Although findings may support early CHF, there is no significant interval change compare d to 11/06/2022.
--- NOTE | 2022-11-22 15:04 | ED ---
SOB HPI - General Chief Complaint: Shortness of Breath Stated Complaint: A Fib Time Seen by Provider: 11/22/22 13:10 Source: patient Mode of arrival: wheelchair Limitations: no limitations - History of Present Illness Initial Comments: 77 male with afib presents with rapid heart rate. He had an appointment at the clinic. he states he had to ambulate down a long hallway and once inside they immediately did an EKG. States he could feel his heart racing. He has a history of afib. He denied having any pain. He did take his medications this morning. He was told to come to the ED for his fast HR. - Related Data Home Medications Medication Instructions Recorded Confirmed allopurinoL [Zyloprim] 300 mg PO DAILY 08/07/17 11/22/22 Gabapentin 1,200 mg PO TID 10/02/18 11/22/22 Levothyroxine Sodium [Synthroid] 112 mcg PO DAILY 10/02/18 11/22/22 Levothyroxine Sodium [Synthroid] 125 mcg PO DAILY 10/02/18 11/22/22 Nitroglycerin Sl Tabs [Nitrostat] 0.4 mg SL Q5M PRN 10/02/18 11/22/22 carvediloL [Coreg] 6.25 mg PO BID-W/MEALS 03/17/21 11/22/22 Atorvastatin [Lipitor] 40 mg PO HS 10/19/21 11/22/22 Apixaban [Eliquis] 5 mg PO BID 09/28/22 11/22/22 Budesonide/Formoterol Fumarate 2 puff INHALATION RT-BID 09/28/22 11/22/22 [Symbicort 80-4.5 Mcg Inhaler] HYDROcodone/APAP 7.5-325MG [[place] 1 tab PO BID PRN 09/28/22 11/22/22 7.5-325] Magnesium Oxide [Mag-Ox] 400 mg PO BID 09/28/22 11/22/22 Meclizine [Antivert] 12.5 mg PO TID PRN 09/28/22 11/22/22 Albuterol Sulfate [Proventil Hfa] 1 puff INHALATION RT-Q6H PRN 11/22/22 11/22/22 Omeprazole 20 mg PO DAILY 11/22/22 11/22/22 Previous Rx's Medication Instructions Recorded Furosemide [Lasix] 40 mg PO DAILY tab 10/08/22 Midodrine [ProAmatine] 5 mg PO AC-TID tab 10/08/22 Allergies Allergy/AdvReac Type Severity Reaction Status Date / Time Sulfa (Sulfonamide Allergy Mild Rash/Hives Verified 11/22/22 15:41 Antibiotics) cephalexin [From Keflex] Allergy Unknown Verified 11/22/22 15:41 clopidogrel [From Plavix] Allergy Rash/Hives Verified 11/22/22 15:41 codeine Allergy Rash/Nausea Verified 11/22/22 15:41 & Vomiting Iodine and Iodide Containing Allergy Rash/Hives Verified 11/22/22 15:41 Produc levofloxacin [From Levaquin] Allergy urticaria/r Verified 11/22/22 15:41 belle shellfish derived [Shellfish] Allergy urticaria/r Verified 11/22/22 15:41 belle lisinopril AdvReac Angiodema Verified 11/22/22 15:41 of tongue oxycodone AdvReac Hallucinati Verified 11/22/22 15:41 ons solifenacin AdvReac Nausea & Verified 11/22/22 15:41 Vomiting Review of Systems ROS Statement: Those systems with pertinent positive or pertinent negative responses have been documented in the HPI. ROS Other: All systems not noted in ROS Statement are negative. Past Medical History Past Medical History: Atrial Fibrillation, Asthma, Coronary Artery Disease (CAD), COPD, Diabetes Mellitus, Hypertension, Myocardial Infarction ([place]), Pneumonia Additional Past Medical History / Comment(s): left knee cap broken, pancreatitis, /gallstones Last Myocardial Infarction Date:: 2017 History of Any Multi-Drug Resistant Organisms: None Reported Date of last positivie culture/infection: 10/01/22 MDRO Source:: Sputum Past Surgical History: Cholecystectomy, Coronary Bypass/CABG, Heart Catheterization With Stent, Hernia Repair, Orthopedic Surgery Additional Past Surgical History / Comment(s): lt knee replacement(total of 4 sx), colonoscopy, Left knee cap removal with antibiotic spacers placed, Past Anesthesia/Blood Transfusion Reactions: No Reported Reaction Date of Last Stent Placement:: 10/2015 Past Psychological History: No Psychological Hx Reported Smoking Status: Former smoker Past Alcohol Use History: Occasional Past Drug Use History: None Reported - Past Family History Father Family Medical History: Diabetes Mellitus Mother Family Medical History: CVA/TIA, Hypertension General Exam Limitations: no limitations General appearance: alert, in no apparent distress Head exam: Present: atraumatic, normocephalic, normal inspection Eye exam: Present: normal appearance, PERRL, EOMI. Absent: scleral icterus, conjunctival injection, periorbital swelling ENT exam: Present: normal exam, mucous membranes moist Neck exam: Present: normal inspection. Absent: tenderness, meningismus, lymphadenopathy Respiratory exam: Present: normal lung sounds bilaterally. Absent: respiratory distress, wheezes, rales, rhonchi, stridor Cardiovascular Exam: Present: normal rhythm, irregular rhythm, normal heart sounds. Absent: systolic murmur, diastolic murmur, rubs, gallop, clicks GI/Abdominal exam: Present: soft, normal bowel sounds. Absent: distended, tenderness, guarding, rebound, rigid Extremities exam: Present: normal inspection, full ROM, normal capillary refill. Absent: tenderness, pedal edema, joint swelling, calf tenderness Back exam: Present: normal inspection Neurological exam: Present: alert, oriented X3, CN II-XII intact Psychiatric exam: Present: normal affect, normal mood Skin exam: Present: warm, dry, intact, normal color. Absent: rash Course Vital Signs 11/22/22 11/22/22 11/22/22 13:01 13:30 14:00 Temperature 98 F Pulse Rate 101 H 104 H 80 Respiratory 20 12 15 Rate Blood Pressure 117/74 109/68 94/74 O2 Sat by Pulse 96 95 96 Oximetry 11/22/22 11/22/22 14:30 15:00 Temperature Pulse Rate 93 88 Respiratory 12 14 Rate Blood Pressure 100/73 92/59 O2 Sat by Pulse 91 L 91 L Oximetry Medical Decision Making - Medical Decision Making Was pt. sent in by a medical professional or institution? PCP clinic Did you speak to anyone other than the patient for history? no Did you review nursing and triage notes? yes and I agree Were old charts reviewed? yes, previous admission Differential Diagnosis? SVT, v tach, aflutter EKG interpreted by me (3pts min.)? yes X-rays interpreted by me (1pt min.)? yes CT interpreted by me (1pt min.)? no U/S interpreted by me (1pt. min.)? yes What testing was considered but not performed? (CT, X-rays, U/S, labs)? Why? none What meds were considered but not given? Why? none Did you discuss the management of the patient with other professionals? no Did you reconcile home meds? yes Was smoking cessation discussed for >3mins.? no Was critical care preformed (if so, how long)? no Were there social determinants of health that impacted care today? How? (Homelessness, low income, unemployed, alcoholism, drug addiction, transportat ion, low edu. Level, literacy, decrease access to med. care, long-term, rehab)? no Was there de-escalation of care discussed even if they declined? (Discuss DNR or withdrawal of care, Hospice)? no What co-morbidities impacted this encounter? (DM, HTN, Smoking, COPD, CAD, Cancer, CVA, Hep., AIDS, mental health diagnosis, sleep apnea, morbid obesity)? afib, htn, hlf Was patient admitted / discharged? discharged home Undiagnosed new problem with uncertain prognosis? yes Drug Therapy requiring intensive monitoring for toxicity (Heparin, Nitro, Insulin, Cardizem)? no Were any procedures done? no Diagnosis/symptom? afib Acute, or Chronic, or Acute on Chronic? chronic Uncomplicated (without systemic symptoms) or Complicated (systemic symptoms)? complicated Side effects of treatment? none Exacerbation, Progression, or Severe Exacerbation] no Poses a threat to life or bodily function? no - Lab Data Result diagrams: 11/22/22 14:14 11/22/22 14:14 Lab Results 11/22/22 11/22/22 11/22/22 Range/Units 14:14 14:14 14:14 WBC 10.5 (3.8-10.6) k/uL RBC 4.16 L (4.30-5.90) m/uL Hgb 12.9 L (13.0-17.5) gm/dL Hct 40.8 (39.0-53.0) % MCV 97.9 (80.0-100.0) fL MCH 31.0 (25.0-35.0) pg MCHC 31.6 (31.0-37.0) g/dL RDW 15.8 H (11.5-15.5) % Plt Count 254 (150-450) k/uL MPV 7.7 Neutrophils % 72 % Lymphocytes % 13 % Monocytes % 7 % Eosinophils % 6 % Basophils % 1 % Neutrophils # 7.6 (1.3-7.7) k/uL Lymphocytes # 1.4 (1.0-4.8) k/uL Monocytes # 0.8 (0-1.0) k/uL Eosinophils # 0.6 (0-0.7) k/uL Basophils # 0.2 (0-0.2) k/uL Hypochromasia Slight Poikilocytosis Moderate Macrocytosis Slight PT 11.4 (9.0-12.0) sec INR 1.1 (<1.2) APTT 28.1 (22.0-30.0) sec Sodium 140 (137-145) mmol/L Potassium 3.8 (3.5-5.1) mmol/L Chloride 102 (98-107) mmol/L Carbon Dioxide 32 H (22-30) mmol/L Anion Gap 6 mmol/L BUN 14 (9-20) mg/dL Creatinine 1.16 (0.66-1.25) mg/dL Est GFR (CKD-EPI)AfAm 70 (>60 ml/min/1.73 sqM) Est GFR (CKD-EPI)NonAf 60 (>60 ml/min/1.73 sqM) Glucose 136 H (74-99) mg/dL Plasma Lactic Acid [place] (0.7-2.0) mmol/L Calcium 8.4 (8.4-10.2) mg/dL Magnesium 1.5 L (1.6-2.3) mg/dL Total Bilirubin 1.3 (0.2-1.3) mg/dL AST 22 (17-59) U/L ALT 12 (4-49) U/L Alkaline Phosphatase 67 (38-126) U/L Troponin I (0.000-0.034) ng/mL NT-Pro-B Natriuret Pep pg/mL Total Protein 6.6 (6.3-8.2) g/dL Albumin 3.6 (3.5-5.0) g/dL 11/22/22 11/22/22 11/22/22 Range/Units 14:14 14:14 14:14 WBC (3.8-10.6) k/uL RBC (4.30-5.90) m/uL Hgb (13.0-17.5) gm/dL Hct (39.0-53.0) % MCV (80.0-100.0) fL MCH (25.0-35.0) pg MCHC (31.0-37.0) g/dL RDW (11.5-15.5) % Plt Count (150-450) k/uL MPV Neutrophils % % Lymphocytes % % Monocytes % % Eosinophils % % Basophils % % Neutrophils # (1.3-7.7) k/uL Lymphocytes # (1.0-4.8) k/uL Monocytes # (0-1.0) k/uL Eosinophils # (0-0.7) k/uL Basophils # (0-0.2) k/uL Hypochromasia Poikilocytosis Macrocytosis PT (9.0-12.0) sec INR (<1.2) APTT (22.0-30.0) sec Sodium (137-145) mmol/L Potassium (3.5-5.1) mmol/L Chloride (98-107) mmol/L Carbon Dioxide (22-30) mmol/L Anion Gap mmol/L BUN (9-20) mg/dL Creatinine (0.66-1.25) mg/dL Est GFR (CKD-EPI)AfAm (>60 ml/min/1.73 sqM) Est GFR (CKD-EPI)NonAf (>60 ml/min/1.73 sqM) Glucose (74-99) mg/dL Plasma Lactic Acid [place] 1.2 (0.7-2.0) mmol/L Calcium (8.4-10.2) mg/dL Magnesium (1.6-2.3) mg/dL Total Bilirubin (0.2-1.3) mg/dL AST (17-59) U/L ALT (4-49) U/L Alkaline Phosphatase (38-126) U/L Troponin I <0.012 (0.000-0.034) ng/mL NT-Pro-B Natriuret Pep 5100 pg/mL Total Protein (6.3-8.2) g/dL Albumin (3.5-5.0) g/dL - EKG Data EKG Comments: EKG demonstrates atrial fib with a rate of 97. QRS 164. QTC of 421. No acute ST segment elevations or depressions Disposition Clinical Impression: Afib Disposition: HOME SELF-CARE Condition: Stable Instructions (If sedation given, give patient instructions): A-fib (Atrial Fibrillation) (ED) Additional Instructions: Please continue taking medications as directed. Follow up with your doctor at your appts tomorrow and return for any worsening symptoms Is patient prescribed a controlled substance at d/c from ED?: No Referrals: Teresa Walter MD [Primary Care Provider] - 1-2 days Time of Disposition: 15:36
[2022-11-22] MEDS ORDERED: MIDODRINE 5 MG TAB PO STA (15:10)
[2022-11-22 15:33] VITALS: BP 92/59; PULSE 88; RESP 14
== END 2022-11-22 16:03 | disposition home or self-care (01) ==
LOC: EC 13:01
DX: I48.91 Unspecified atrial fibrillation (principal); J44.9 Chronic obstructive pulmonary disease, unspecified; I25.10 Atherosclerotic heart disease of native coronary artery without angina pectoris; E11.9 Type 2 diabetes mellitus without complications; I10 Essential (primary) hypertension; I25.2 Old myocardial infarction; Z87.891 Personal history of nicotine dependence; Z88.2 Allergy status to sulfonamides; Z88.5 Allergy status to narcotic agent; Z91.041 Radiographic dye allergy status; Z91.013 Allergy to seafood; Z88.8 Allergy status to other drugs, medicaments and biological substances; Z79.01 Long term (current) use of anticoagulants; Z79.899 Other long term (current) drug therapy
CPT/HCPCS: 36415; 71046; 80053; 83605; 83735; 83880; 84484; 85025; 85610; 85730; 93005; 99285

== ENCOUNTER → 2023-01-09 | Outpatient (CLI) | payer MEDICARE ==
--- NOTE | 2023-01-09 15:24 | XR ---
EXAMINATION TYPE: XR shoulder complete 2 views RT DATE OF EXAM: 01/09/2023 Comparison: 04/08/2021 Clinical History: 77-year-old male grinding and pain for 4 days, M25.511. Findings: The AP view is limited by internal rotation. There is mild degenerative change at the AC joint. Some bony sclerosis at the greater tuberosity suggests chronic rotator cuff tendinopathy. No acute fractur e, subluxation, dislocation is seen. Chronic appearing interstitial changes within the right hemithor ax. Impression: Limited 2 views. Suspect underlying chronic rotator cuff tendinopathy. At least mild AC joint OA. If concern for rotator cuff tear, either MSK ultrasound or MRI can be considered.
== END | disposition home or self-care (01) ==
LOC: RADXRMAIN 13:23
PROVIDERS: ATTEND Family Medicine
DX: M19.011 Primary osteoarthritis, right shoulder (principal)

== ENCOUNTER → 2023-01-22 | Outpatient (CLI) | payer MEDICARE ==
--- NOTE | 2023-01-22 15:29 | MR ---
EXAMINATION TYPE: MR shoulder RT wo con DATE OF EXAM: 01/22/2023 COMPARISON: Right shoulder x-ray January 09, 2023 HISTORY: Right shoulder pain for 1 month with difficulty raising arm overhead. TECHNIQUE: Multiplanar, multisequence imaging of the right shoulder is performed without contrast. FINDINGS: Exam is suboptimal as patient unable to hold still. Rotator Cuff: Increased signal in the supraspinatus and infraspinatus tendons. There is focal tear in volving the anterior fibers of the supraspinatus tendon measuring approximately 12 mm AP diameter sag ittal image 7. Subscapularis tendon shows surrounding fluid and some increased signal. There is mild to borderline moderate generalized muscular atrophy. Acromioclavicular Joint: Moderate to severe narrowing with moderate superior capsular hypertrophy. Ty pe II downsloping acromion. Loss of underlying fat plane at this level. Glenohumeral Joint: Moderate size joint effusion. Narrowing is seen. No significant spurring is prese nt. Labrum: Superior labrum is blunted with increased signal consistent with degenerative tear.. Biceps Tendon: The long head of biceps is in normal location within bicipital groove. Some increased signal is present. It cannot be definitely traced to the labral anchor and is suspected torn with jamie e retraction Bone marrow signal: Increased T2 signal at the acromioclavicular joint. Subchondral cystic change inv olving the humeral head along the periphery. Other: No additional significant abnormality is appreciated. IMPRESSION: 1. Tendinosis of the rotator cuff tendons. There is some focal tearing of the supraspinatus tendon an terior fibers at the articular surface. 2. Probable retracted tear of the long head of biceps from the labral anchor. 3. Degenerative changes as detailed above. Type II downsloping acromion with suspected underlying imp ingement. Moderate size glenohumeral joint effusion.
== END | disposition home or self-care (01) ==
LOC: RADMRIMAIN 14:37
PROVIDERS: ATTEND Family Medicine
DX: M19.011 Primary osteoarthritis, right shoulder (principal); M75.101 Unspecified rotator cuff tear or rupture of right shoulder, not specified as traumatic; M25.411 Effusion, right shoulder; M67.813 Other specified disorders of tendon, right shoulder; R93.6 Abnormal findings on diagnostic imaging of limbs

== ENCOUNTER → 2023-03-04 | Outpatient (CLI) | payer MEDICARE ==
[2023-03-05 01:50] LABS: Basophils # (A) 0.12 X 10*3/uL (0.00-0.10); Basophils % (A) 0.7 %; Eosinophils # (A) 0.24 X 10*3/uL (0.04-0.35); Eosinophils % (A) 1.3 %; HCT 45.6 % (39.6-50.0); HGB 14.3 g/dL (13.0-17.0); Immature Grans, Automated 0.4 %; Lymphocytes # (A) 1.86 X 10*3/uL (0.90-5.00); Lymphocytes % (A) 10.4 %; MCH 31.4 pg (27.0-32.0); MCHC 31.4 g/dL (32.0-37.0); MCV 100.2 fL (80.0-97.0); Mean Platelet Volume 10.7 fL (9.5-12.2); Monocytes # (A) 1.36 X 10*3/uL (0.20-1.00); Monocytes % (A) 7.6 %; NRBC Per 100 WBC 0 /100 WBCS (0.0-0.0); Neutrophils # (A) 14.15 X 10*3/uL (1.80-7.70); Neutrophils % (A) 79.6 %; Platelet Count 188 X 10*3/uL (140-440); RBC 4.55 X 10*6/uL (4.40-5.60); WBC 17.81 X 10*3/uL (4.50-10.00)
[2023-03-05 02:16] LABS: Appearance,Urine Clear (Clear); Bilirubin,Urine Negative (Negative); Blood,Urine Negative (Negative); Color,Urine Yellow (Yellow); Ketones,Urine Negative (Negative); Nitrite,Urine Negative (Negative); PH, Urine 5.5 (5.0-8.0); Specific Gravity,Urine 1.015 (1.001-1.030); Urobilinogen,Urine 0.2 (0.2,1.0)
[2023-03-05 02:24] LABS: Bacteria,Urine None Seen /HPF (None Seen)
[2023-03-05 02:36] LABS: Magnesium 1.6 mg/dL (1.5-2.4); Phosphorus 3.9 mg/dL (2.4-5.1)
[2023-03-05 03:13] LABS: African American GFR (CKD) 47.1 (60.0-200.0); Anion Gap 16.2 mmol/L (10.00-18.00); BUN/Creat Ratio 15.56 Ratio (12.00-20.00); Blood Urea Nitrogen 24.9 mg/dL (9.0-27.0); Calcium 9.2 mg/dL (8.7-10.3); Carbon Dioxide 24.8 mmol/L (20.0-27.5); Non-African American GFR(CKD) 40.7 (60.0-200.0); Potassium 4.4 mmol/L (3.5-5.5)
[2023-03-05 04:50] LABS: Urine Creatinine 98.9 mg/dL (39.0-259.0)
== END | disposition home or self-care (01) ==
LOC: LABWHC1 14:29
PROVIDERS: ATTEND Nurse Practitioner Acute Care
DX: N18.2 Chronic kidney disease, stage 2 (mild) (principal); D63.1 Anemia in chronic kidney disease; N39.0 Urinary tract infection, site not specified
CPT/HCPCS: 36415; 80048; 81001; 82043; 82570; 83735; 84100; 85025

== ENCOUNTER 2023-03-28 19:57 | Inpatient (IN) | payer MEDICARE ==
--- NOTE | 2023-03-28 20:32 | ED ---
General Adult HPI - General Chief complaint: Shortness of Breath Stated complaint: SOB Time Seen by Provider: 03/28/23 20:07 Source: EMS Mode of arrival: EMS Limitations: no limitations - History of Present Illness Initial comments: Dictation was produced using [employer] dictation software. please excuse any grammatical, word or spelling errors. Chief Complaint: 77-year-old male past medical history of CHF and COPD presents with dyspnea History of Present Illness: Patient is 69-year-old male presents emergency department for dyspnea. History of CHF and COPD he was at a parade where he was exerting himself. He states that his shortness of breath was much possible. he has been admitted to the hospital for heart failure in the recent past. Patient is worried that his symptoms aren't beginning of something more severe. He has been having a nonproductive cough. Denies any chest pain. No fever or constitutional symptoms. The ROS documented in this emergency department record has been reviewed and confirmed by me. Those systems with pertinent positive or negative responses have been documented in the HPI. All other systems are other negative and/or noncontributory. - Related Data Home Medications Medication Instructions Recorded Confirmed allopurinoL [Zyloprim] 300 mg PO DAILY 08/07/17 12/25/22 Gabapentin 1,200 mg PO TID 10/02/18 12/25/22 Levothyroxine Sodium [Synthroid] 112 mcg PO DAILY 10/02/18 12/25/22 Levothyroxine Sodium [Synthroid] 125 mcg PO DAILY 10/02/18 12/25/22 Nitroglycerin Sl Tabs [Nitrostat] 0.4 mg SL Q5M PRN 10/02/18 12/25/22 carvediloL [Coreg] 6.25 mg PO BID-W/MEALS 03/17/21 12/25/22 Atorvastatin [Lipitor] 40 mg PO HS 10/19/21 12/25/22 Apixaban [Eliquis] 5 mg PO BID 09/28/22 12/25/22 Budesonide/Formoterol Fumarate 2 puff INHALATION RT-BID 09/28/22 12/25/22 [Symbicort 80-4.5 Mcg Inhaler] HYDROcodone/APAP 7.5-325MG [[place] 1 tab PO BID PRN 09/28/22 12/25/22 7.5-325] Magnesium Oxide [Mag-Ox] 400 mg PO BID 09/28/22 12/25/22 Meclizine [Antivert] 12.5 mg PO TID PRN 09/28/22 12/25/22 Albuterol Sulfate [Proventil Hfa] 1 puff INHALATION RT-Q6H PRN 11/22/22 12/25/22 Omeprazole 20 mg PO DAILY 11/22/22 12/25/22 Previous Rx's Medication Instructions Recorded Nystatin 100,000 Unit/ml Susp 500,000 unit PO QID #100 ml 12/23/22 [Mycostatin Oral Susp] Calamine/Zinc Oxide Lotion 1 applic TOPICAL BID PRN each 01/01/23 [Calamine Lotion] Dapagliflozin Propanediol [Farxiga] 10 mg PO DAILY tab 01/01/23 Furosemide [Lasix] 40 mg PO BID@0900,1600 tab 01/01/23 Allergies Allergy/AdvReac Type Severity Reaction Status Date / Time Sulfa (Sulfonamide Allergy Mild Rash/Hives Verified 12/25/22 13:10 Antibiotics) cephalexin [From Keflex] Allergy Unknown Verified 12/25/22 13:10 clopidogrel [From Plavix] Allergy Rash/Hives Verified 12/25/22 13:10 codeine Allergy Rash/Nausea Verified 12/25/22 13:10 & Vomiting Iodine and Iodide Containing Allergy Rash/Hives Verified 12/25/22 13:10 Produc levofloxacin [From Levaquin] Allergy urticaria/r Verified 12/25/22 13:10 belle shellfish derived [Shellfish] Allergy urticaria/r Verified 12/25/22 13:10 belle lisinopril AdvReac Angiodema Verified 12/25/22 13:10 of tongue oxycodone AdvReac Hallucinati Verified 12/25/22 13:10 ons solifenacin AdvReac Nausea & Verified 12/25/22 13:10 Vomiting Review of Systems ROS Statement: Those systems with pertinent positive or pertinent negative responses have been documented in the HPI. ROS Other: All systems not noted in ROS Statement are negative. Past Medical History Past Medical History: Atrial Fibrillation, Asthma, Coronary Artery Disease (CAD), COPD, Diabetes Mellitus, Hypertension, Myocardial Infarction (ID), Pneumonia Additional Past Medical History / Comment(s): left knee cap broken, pancreatitis, /gallstones Last Myocardial Infarction Date:: 2017 History of Any Multi-Drug Resistant Organisms: None Reported Date of last positivie culture/infection: 10/01/22 MDRO Source:: Sputum Past Surgical History: Cholecystectomy, Coronary Bypass/CABG, Heart Catheterization With Stent, Hernia Repair, Orthopedic Surgery Additional Past Surgical History / Comment(s): lt knee replacement(total of 4 sx), colonoscopy, Left knee cap removal with antibiotic spacers placed, Past Anesthesia/Blood Transfusion Reactions: No Reported Reaction Date of Last Stent Placement:: 10/2015 Past Psychological History: No Psychological Hx Reported Smoking Status: Former smoker Past Alcohol Use History: Occasional Past Drug Use History: None Reported - Past Family History Father Family Medical History: Diabetes Mellitus Mother Family Medical History: CVA/TIA, Hypertension General Exam - General Exam Comments Initial Comments: PHYSICAL EXAM: General Impression: Alert and oriented x3, not in acute distress HEENT: Normocephalic atraumatic, extra-ocular movements intact, pupils equal and reactive to light bilaterally, mucous membranes moist. Cardiovascular: Heart regular rate and rhythm Chest: Able to complete full sentences, diffuse lung wheezing and crackles at the lower base Abdomen: abdomen soft, non-tender, non-distended, no organomegaly Musculoskeletal: Pulses present and equal in all extremities, no peripheral edema Motor: no focal deficits noted Neurological: CN II-XII grossly intact, no focal motor or sensory deficits noted Skin: Intact with no visualized rashes Psych: Normal affect and mood Limitations: no limitations Course Vital Signs 03/28/23 03/28/23 03/28/23 20:01 21:45 22:21 Temperature 98.1 F Pulse Rate 90 77 85 Respiratory 18 18 Rate Blood Pressure 104/72 112/78 O2 Sat by Pulse 95 95 Oximetry 03/28/23 03/28/23 22:30 22:52 Temperature Pulse Rate 85 81 Respiratory 18 Rate Blood Pressure 108/76 O2 Sat by Pulse 96 Oximetry Medical Decision Making - Medical Decision Making Was pt. sent in by a medical professional or institution (, PA, GREENHOUSE STAFF, urgent ca re, hospital, or [facility]...) When possible be specific @ -No Did you speak to anyone other than the patient for history (EMS, parent, family, police, friend...)? What history was obtained from this source @ -No Did you review nursing and triage notes (agree or disagree)? Why? @ -I reviewed and agree with nursing and triage notes Were old charts reviewed (outside hosp., previous admission, EMS record, old EKG, old radiological studies, urgent care reports/EKG's, [facility] records)? Report findings @ -Prior cardiac charts were reviewed. Patient had echocardiogram from 2020 that showed heart failure Differential Diagnosis (chest pain, altered mental status, abdominal pain women, abdominal pain men, vaginal bleeding, musculoskeletal, weakness, fever, dyspnea, syncope, headache, dizziness, GI bleed, back pain, seizure, CVA, palpatations, mental health)? @ -Differential Dyspnea: Coronary syndrome, arrhythmia, tamponade, asthma, COPD, pulmonary embolism, pneumonia, pneumothorax, pulmonary effusion, anaphylaxis, diabetic ketoacidosis, flailed chest, pulmonary contusion, diaphragmatic rupture, anemia, neur omuscular, this is not meant to be an all-inclusive list. EKG interpreted by me (3pts min.). @ -My EKG interpretation: Ventricular rate 101, H fibrillation, QRS 176, QTC 557. No MD prolongation, no QTC prolongation, no ST or T-wave changes noted. EKG compared to December 17 2022 showing no changes. Overall, this EKG is unremarkable X-rays interpreted by me (1pt min.). @ -Chest x-ray shows cardiomegaly with pulmonary congestion CT interpreted by me (1pt min.). @ -None done U/S interpreted by me (1pt. min.). @ -None done What testing was considered but not performed or refused? (CT, X-rays, U/S, labs)? Why? @ -None What meds were considered but not given or refused? Why? @ -None Did you discuss the management of the patient with other professionals (professionals i.e. [employer], PA, GREENHOUSE STAFF, lab, RT, psych nurse, social problems specialist, concrete buster operator, teacher, food safety officer, pillowcase turner)? Give summary @ -Labs and imaging clinical presentation were discussed with Dr. Mg for admission Was smoking cessation discussed for >3mins.? @ -No Was critical care preformed (if so, how long)? @ -No Were there social determinants of health that impacted care today? How? (Homelessness, low income, unemployed, alcoholism, drug addiction, transportation, low edu. Level, literacy, decrease access to med. care, prison, rehab)? @ -No Was there de-escalation of care discussed even if they declined (Discuss DNR or withdrawal of care, Hospice)? DNR status @ -No What co-morbidities impacted this encounter? (DM, HTN, Smoking, COPD, CAD, Cancer, CVA, ARF, Chemo, Hep., AIDS, mental health diagnosis, sleep apnea, morbid obesity)? @ -None Was patient admitted / discharged? Hospital course, mention meds given and route, prescriptions, significant lab abnormalities, going to OR and other pertinent info. @ -69-year-old male with past medical history of COPD and CHF presents with chief complaint of dyspnea. Patient on hypoxic. He is satting 95% on room air. Patient not overtly dyspneic. Laboratory evaluation shows leukocytosis of 16.3. Metabolic panel is otherwise within acceptable limits. Unclear cause a leukocytosis. Prematurity peptide is 5340. Troponin is normal. Chest x-ray suggest heart failure. Patient's disposition is likely multifactorial is given a DuoNeb states that his symptoms do seem to feel slightly improved. Patient be admitted with consultation pulmonology and cardiology. Lasix, DuoNeb and Decadron Undiagnosed new problem with uncertain prognosis? @ -No Drug Therapy requiring intensive monitoring for toxicity (Heparin, Nitro, I nsulin, Cardizem)? @ -No Were any procedures done? @ -No Diagnosis/symptom? Acute, or Chronic, or Acute on Chronic? Uncomplicated (without systemic symptoms) or Complicated (systemic symptoms)? @ -1. Dyspnea, multifactorial Side effects of treatment? @ -No Exacerbation, Progression, or Severe Exacerbation? @ -No Poses a threat to life or bodily function? How? (Chest pain, USA, ID, pneumonia, PE, COPD, DKA, ARF, appy, cholecystitis, CVA, Diverticulitis, Homicidal, Suicidal, threat to staff... and all critical care pts) @ -No - Lab Data Result diagrams: 03/28/23 20:17 03/28/23 20:17 Lab Results 03/28/23 03/28/23 03/28/23 Range/Units 20:17 20:17 20:17 WBC 16.3 H (3.8-10.6) k/uL RBC 4.40 (4.30-5.90) m/uL Hgb 14.0 (13.0-17.5) gm/dL Hct 42.6 (39.0-53.0) % MCV 96.8 (80.0-100.0) fL MCH 31.7 (25.0-35.0) pg MCHC 32.8 (31.0-37.0) g/dL RDW 15.7 H (11.5-15.5) % Plt Count 145 L (150-450) k/uL MPV 7.7 Neutrophils % 85 % Lymphocytes % 7 % Monocytes % 6 % Eosinophils % 1 % Basophils % 1 % Neutrophils # 13.9 H (1.3-7.7) k/uL Lymphocytes # 1.2 (1.0-4.8) k/uL Monocytes # 1.0 (0-1.0) k/uL Eosinophils # 0.1 (0-0.7) k/uL Basophils # 0.1 (0-0.2) k/uL Poikilocytosis Slight Sodium 135 L (137-145) mmol/L Potassium (3.5-5.1) mmol/L Chloride 100 (98-107) mmol/L Carbon Dioxide 27 (22-30) mmol/L Anion Gap 8 mmol/L BUN 32 H (9-20) mg/dL Creatinine 1.51 H (0.66-1.25) mg/dL Est GFR (CKD-EPI)AfAm 51 (>60 ml/min/1.73 sqM) Est GFR (CKD-EPI)NonAf 44 (>60 ml/min/1.73 sqM) Glucose 171 H (74-99) mg/dL Calcium 8.5 (8.4-10.2) mg/dL Magnesium 1.6 (1.6-2.3) mg/dL Total Bilirubin 1.7 H (0.2-1.3) mg/dL AST 16 L (17-59) U/L ALT 14 (4-49) U/L Alkaline Phosphatase 71 (38-126) U/L Troponin I 0.012 (0.000-0.034) ng/mL NT-Pro-B Natriuret Pep pg/mL Total Protein 6.4 (6.3-8.2) g/dL Albumin 3.6 (3.5-5.0) g/dL 03/28/23 Range/Units 20:17 WBC (3.8-10.6) k/uL RBC (4.30-5.90) m/uL Hgb (13.0-17.5) gm/dL Hct (39.0-53.0) % MCV (80.0-100.0) fL MCH (25.0-35.0) pg MCHC (31.0-37.0) g/dL RDW (11.5-15.5) % Plt Count (150-450) k/uL MPV Neutrophils % % Lymphocytes % % Monocytes % % Eosinophils % % Basophils % % Neutrophils # (1.3-7.7) k/uL Lymphocytes # (1.0-4.8) k/uL Monocytes # (0-1.0) k/uL Eosinophils # (0-0.7) k/uL Basophils # (0-0.2) k/uL Poikilocytosis Sodium (137-145) mmol/L Potassium (3.5-5.1) mmol/L Chloride (98-107) mmol/L Carbon Dioxide (22-30) mmol/L Anion Gap mmol/L BUN (9-20) mg/dL Creatinine (0.66-1.25) mg/dL Est GFR (CKD-EPI)AfAm (>60 ml/min/1.73 sqM) Est GFR (CKD-EPI)NonAf (>60 ml/min/1.73 sqM) Glucose (74-99) mg/dL Calcium (8.4-10.2) mg/dL Magnesium (1.6-2.3) mg/dL Total Bilirubin (0.2-1.3) mg/dL AST (17-59) U/L ALT (4-49) U/L Alkaline Phosphatase (38-126) U/L Troponin I (0.000-0.034) ng/mL NT-Pro-B Natriuret Pep 5340 pg/mL Total Protein (6.3-8.2) g/dL Albumin (3.5-5.0) g/dL Disposition Clinical Impression: Dyspnea Disposition: ADMITTED IP TO THIS HOSP Condition: Fair Referrals: Teresa Walter MD [Primary Care Provider] - 1-2 days Decision Time: 22:30
--- NOTE | 2023-03-28 20:35 | XR ---
EXAMINATION TYPE: XR chest 2V DATE OF EXAM: 03/28/2023 8:29 PM COMPARISON: Chest radiographs from 12/17/2022, CTA chest 12/25/2022 TECHNIQUE: XR chest 2V Frontal and lateral views of the chest. CLINICAL INDICATION:Male, 77 years old with history of dyspnea; FINDINGS: Lungs/Pleura: There is no evidence of pleural effusion, focal consolidation, or pneumothorax. Flatten ing of the hemidiaphragms. Chronic senescent parenchymal change. Pulmonary vascularity: Slightly prominent. Heart/mediastinum: Cardiomediastinal silhouette is enlarged and stable. Atherosclerotic calcificatio ns are seen in the aorta. Musculoskeletal: Multiple level degenerative disc disease changes seen throughout the spine. Median s ternotomy wires are redemonstrated. A couple of the superior one's again fracture. Left shoulder arth ropathy. IMPRESSION: Cardiomegaly and mild pulmonary vascular congestion. Correlate with BNP for congestive heart failure.
[2023-03-28 20:38] LABS: Basophils # (A) 0.1 k/uL (0-0.2); Basophils % (A) 1 %; Eosinophils # (A) 0.1 k/uL (0-0.7); Eosinophils % (A) 1 %; HCT 42.6 % (39.0-53.0); Lymphocytes # (A) 1.2 k/uL (1.0-4.8); Lymphocytes % (A) 7 %; MCH 31.7 pg (25.0-35.0); MCHC 32.8 g/dL (31.0-37.0); MCV 96.8 fL (80.0-100.0); Mean Platelet Volume 7.7; Monocytes % (A) 6 %; Neutrophils # (A) 13.9 k/uL (1.3-7.7); Neutrophils % (A) 85 %; Platelet Count 145 k/uL (150-450); Poikilocytosis Slight; RDW 15.7 % (11.5-15.5); WBC 16.3 k/uL (3.8-10.6)
[2023-03-28 21:22] LABS: Albumin 3.6 g/dL (3.5-5.0); Calcium 8.5 mg/dL (8.4-10.2); Magnesium 1.6 mg/dL (1.6-2.3); Total Bilirubin 1.7 mg/dL (0.2-1.3); Total Protein 6.4 g/dL (6.3-8.2)
[2023-03-28] MEDS ORDERED: FUROSEMIDE 10 MG/ML 4 ML VIAL IV STA (21:39)
[2023-03-28] MEDS ORDERED: IPRATROPIUM-ALBUTEROL 3 ML NEB INHALATION STA (22:06)
[2023-03-28] MEDS ORDERED: DEXAMETHASONE SOD PHOSPHATE 10 MG/ML 1 ML VIAL IV STA (22:06)
[2023-03-28] MEDS: SODIUM CHLORIDE 0.9% 1,000 ML IV SCH (23:19)
[2023-03-29 05:44] LABS: Glucose,Whole Blood 210 mg/dL (70-110)
[2023-03-29] MEDS ORDERED: HYDROcodone/APAP 7.5-325MG 1 EACH TAB PO PRN (08:35)
[2023-03-29] MEDS: APIXABAN 5 MG TAB PO SCH ×2 (09:09→20:29)
[2023-03-29] MEDS: GLIMEPIRIDE 2 MG TAB PO SCH ×2 (09:09→20:29)
[2023-03-29] MEDS: allopurinoL 300 MG TAB PO SCH (09:09)
[2023-03-29] MEDS: FUROSEMIDE 40 MG TAB PO SCH ×2 (09:10→20:29)
[2023-03-29] MEDS: LEVOTHYROXINE 112 MCG TAB PO SCH (09:12)
[2023-03-29] MEDS: LEVOTHYROXINE 125 MCG TAB PO SCH (09:12)
[2023-03-29] MEDS ORDERED: DEXTROSE 50% SYRINGE 50 ML IVP PRN ×2 (09:31)
--- NOTE | 2023-03-29 09:39 | P.HPIM ---
History of Present Illness H&P Date: 03/29/23 Chief Complaint: Shortness of breath Patrick Banuelos is a 77-year-old male patient who presents to the ER with concerns of increased shortness of breath that has been occurring over the past few days. Patient has a past medical history of CHF, COPD, atrial fibrillation, asthma, COPD, diabetes mellitus, hypertension, SD, pneumonia, coronary artery bypass Surgery and ex-smoker. Patient denies any recent illness or increased edema to lower extremities. Chest x-ray completed showing cardiomegaly and mild pulmonary vascular congestion. BNP 5340. Creatinine 1.51 bun 32 this does appear patient's baseline. Patient was given IV Lasix. Cardiology and pulmonary services also consulted. Upon exam patient noted to have increased wheezing upon expiration patient started on IV steroids. Patient does report improvement with shortness of breath from admission. Current vital signs temp 97.7, heart rate 60. 17, blood pressure 105/64 with pulse ox 94% on room air Review of Systems Please refer to HPI otherwise unremarkable Past Medical History Past Medical History: Atrial Fibrillation, Asthma, Coronary Artery Disease (CAD), COPD, CVA/TIA, Diabetes Mellitus, Hypertension, Myocardial Infarction (SD), Pneumonia Additional Past Medical History / Comment(s): left knee cap broken, pancreatitis, /gallstones, Patient reports having stroke like symptoms after injection in knee, Last Myocardial Infarction Date:: 2017 History of Any Multi-Drug Resistant Organisms: None Reported Date of last positivie culture/infection: 10/01/22 MDRO Source:: Sputum Past Surgical History: Cholecystectomy, Coronary Bypass/CABG, Heart Catheterization With Stent, Hernia Repair, Orthopedic Surgery Additional Past Surgical History / Comment(s): lt knee replacement(total of 4 sx), colonoscopy, Left knee cap removal with antibiotic spacers placed, Past Anesthesia/Blood Transfusion Reactions: No Reported Reaction Date of Last Stent Placement:: 10/2015 Past Psychological History: No Psychological Hx Reported Additional Psychological History / Comment(s): Pt resides with his spouse. He uses a walker to ambulate. Smoking Status: Former smoker Past Alcohol Use History: Occasional Additional Past Alcohol Use History / Comment(s): Pt started smoking as teen and quit 1983 smoked 2 ppd. Pt usually has one drink a night. Past Drug Use History: None Reported - Past Family History Father Family Medical History: Diabetes Mellitus Mother Family Medical History: CVA/TIA, Hypertension Medications and Allergies Home Medications Medication Instructions Recorded Confirmed Type allopurinoL [Zyloprim] 300 mg PO DAILY 08/07/17 03/29/23 History Gabapentin 1,200 mg PO TID@1400,1800,2200 10/02/18 03/29/23 History Levothyroxine Sodium [Synthroid] 112 mcg PO DAILY 10/02/18 03/29/23 History Levothyroxine Sodium [Synthroid] 125 mcg PO DAILY 10/02/18 03/29/23 History Nitroglycerin Sl Tabs [Nitrostat] 0.4 mg SL Q5M PRN 10/02/18 03/29/23 History carvediloL [Coreg] 6.25 mg PO BID-W/MEALS 03/17/21 03/29/23 History Atorvastatin [Lipitor] 40 mg PO HS 10/19/21 03/29/23 History Apixaban [Eliquis] 5 mg PO BID 09/28/22 03/29/23 History Budesonide/Formoterol Fumarate 2 puff INHALATION RT-BID 09/28/22 03/29/23 History [Symbicort 80-4.5 Mcg Inhaler] HYDROcodone/APAP 7.5-325MG [[place] 1 tab PO BID PRN 09/28/22 03/29/23 History 7.5-325] Magnesium Oxide [Mag-Ox] 400 mg PO BID 09/28/22 03/29/23 History Meclizine [Antivert] 12.5 mg PO TID PRN 09/28/22 03/29/23 History Albuterol Sulfate [Proventil Hfa] 1 puff INHALATION RT-Q6H PRN 11/22/22 03/29/23 History Omeprazole 20 mg PO DAILY 11/22/22 03/29/23 History Furosemide [Lasix] 20 mg PO BID@0900,1600 03/29/23 03/29/23 History Glimepiride [Amaryl] 2 mg PO BID 03/29/23 03/29/23 History Allergies Allergy/AdvReac Type Severity Reaction Status Date / Time Sulfa (Sulfonamide Allergy Mild Rash/Hives Verified 03/29/23 07:32 Antibiotics) cephalexin [From Keflex] Allergy Unknown Verified 03/29/23 07:32 clopidogrel [From Plavix] Allergy Rash/Hives Verified 03/29/23 07:32 codeine Allergy Rash/Nausea Verified 03/29/23 07:32 & Vomiting Iodine and Iodide Containing Allergy Rash/Hives Verified 03/29/23 07:32 Produc levofloxacin [From Levaquin] Allergy urticaria/r Verified 03/29/23 07:32 belle shellfish derived [Shellfish] Allergy urticaria/r Verified 03/29/23 07:32 belle lisinopril AdvReac Angiodema Verified 03/29/23 07:32 of tongue oxycodone AdvReac Hallucinati Verified 03/29/23 07:32 ons solifenacin AdvReac Nausea & Verified 03/29/23 07:32 Vomiting Physical Exam Vitals: Vital Signs Temp Pulse Pulse Resp BP BP Pulse Ox 03/29/23 07:00 97.7 F 68 17 105/64 94 L 03/29/23 01:01 97.8 F 86 18 118/76 96 03/29/23 00:00 98 F 81 18 121/77 94 L 03/28/23 22:52 81 18 108/76 96 03/28/23 22:30 85 03/28/23 22:21 85 03/28/23 21:45 77 18 112/78 95 03/28/23 20:01 98.1 F 90 18 104/72 95 Intake and Output 03/28/23 03/29/23 03/29/23 22:59 06:59 14:59 Output Total 500 Balance -500 Output: Urine 500 Other: Voiding Method Urinal # Voids 1 Weight 101.151 kg 126 kg Head normocephalic Neck supple Lungs expiratory wheezing Heart regular rate and rhythm S1-S2, no rub or gallop Abdomen is soft nontender nondistended positive bowel sounds no hepatosplenomegaly Extremities no edema Neuro alert and orientated to 3 Results CBC & Chem 7: 03/28/23 20:17 03/28/23 20:17 Labs: Abnormal Lab Results - Last 24 Hours (Table) 03/28/23 03/28/23 03/29/23 Range/Units 20:17 20:17 05:42 WBC 16.3 H (3.8-10.6) k/uL RDW 15.7 H (11.5-15.5) % Plt Count 145 L (150-450) k/uL Neutrophils # 13.9 H (1.3-7.7) k/uL Sodium 135 L (137-145) mmol/L BUN 32 H (9-20) mg/dL Creatinine 1.51 H (0.66-1.25) mg/dL Glucose 171 H (74-99) mg/dL POC Glucose (mg/dL) 210 H (70-110) mg/dL Total Bilirubin 1.7 H (0.2-1.3) mg/dL AST 16 L (17-59) U/L Thrombosis Risk Factor Assmnt - Choose All That Apply Any of the Below Risk Factors Present?: Yes Each Factor Represents 1 point: Abnormal pulmonary function (COPD), Heart failu re (<1month), Varicose veins Each Risk Factor Represents 3 Points: Age 75 years or older Thrombosis Risk Factor Assessment Total Risk Factor Score: 6 Thrombosis Risk Factor Assessment Level: High Risk Assessment and Plan Assessment: 1. Dyspnea secondary to CHF and COPD exacerbation 2. History of chronic systolic congestive heart failure 3. History of COPD 4. Chronic kidney disease 6. History of ischemic cardiomyopathy 7. History of chronic persistent atrial fibrillation maintained on eliquis 8. History of coronary artery disease 9. History of aortic stenosis and mitral regurg with pulmonary hypertension 10. History of essential hypertension 11. History of hyperlipidemia 12. History of diabetes mellitus DVT prophylaxis eliquis. GI prophylaxis Protonix Cardiology and pulmonary service is consulted Patient was given 1 dose of IV Lasix started on by mouth Lasix Patient started on IV steroids 2-D echocardiogram ordered Repeat labs ordered Time with Patient: Greater than 30 (Greater than 60% of the total time spent in counseling and coordination of care)
[2023-03-29 10:55] LABS: Glucose,Whole Blood 328 mg/dL (70-110)
[2023-03-29] MEDS: INSULIN ASPART (NovoLOG) 100 UNIT/ML VIAL SQ SCH ×3 (12:10→21:56)
[2023-03-29] MEDS: methylPREDNISolone SOD SUCCI 125 MG/2 ML VIAL IV SCH ×2 (12:10→17:07)
--- NOTE | 2023-03-29 12:17 | P.CNPUL ---
History of Present Illness Consult date: 03/29/23 Reason for consult: dyspnea History of present illness: 77-year-old male patient came into the hospital yesterday because of worsening shortness of breath. He felt that the breathing was progressively getting worse over the past 2 days. He had increased cough and congestion and some little bit of chest discomfort. No pressure. No angina. No radiation to his neck or back. No pleurisy. No hemoptysis. No reported fever or chills. He decided to come into the hospital on the chest x-ray showed 30 megaly with some mild pulmonary vessel congestion. His proBNP level was 5340. His echoes at 16.3 with a hemoglobin of 14 and a platelet count of 145. He has chronic kidney disease and the patient's creatinine is at 1.5 with a BUN of 32 and his sodium level is at 135. The patient is currently on room air oxygen. The patient's is hemodynamically stable. He has had previous admissions for CHF exacerbation, most recent hospitalization was in December 2022 and the patient states that he was taking his medications and he has been very compliant without any interruptions. He is known to have coronary artery disease with his bypass surgery and previous coronary intervention, is known to have atrial fibrillation, chronic stage III kidney disease, COPD, previous history of CVA, diabetes mellitus type 2, gallstone pancreatitis and his previous echocardiogram that was done on 12/26/2021 showed a severe cardiomyopathy with an ejection fraction of 20-25% and mild concentric LVH and moderate aortic stenosis will also present and the patient moderate degree of pulmonary hypertension with a PA pressures of 54. Most recent CAT scan of the chest that was done on 12/25/2022 showed cardiomegaly, generalized anasarca and small right-sided pleural effusion and interstitial edema. Review of Systems CONSTITUTIONAL: Denies any recent significant weight loss or weight gain. EYES: Denies change in vision. EARS, NOSE, MOUTH, THROAT: Denies headaches, denies sore throat. CARDIOVASCULAR: Denies chest pain, palpitations or syncopal episodes. RESPIRATORY: Is that of 4 shortness of breath, cough, congestion no hemoptysis. GASTROINTESTINAL: Denies change in appetite, denies abdominal pain GENITOURINARY: Denies hematuria, denies infections. MUSKULOSKELETAL: Denies pain, positive for swelling. INTEGUMENTARY: Denies rash, denies eczema. NEUROLOGICAL: Denies recent memory loss, no recent seizure activity. PSYCHIATRIC: Denies anxiety, denies depression. HEMATOLOGIC/LYMPHATIC: Denies anemia, denies enlarged lymph nodes. s Past Medical History Past Medical History: Atrial Fibrillation, Coronary Artery Disease (CAD), Heart Failure, COPD, CVA/TIA, Diabetes Mellitus, Hypertension, Myocardial Infarction ([place]) Additional Past Medical History / Comment(s): left knee cap broken, pancreatitis, /gallstones, Patient reports having stroke like symptoms after injection in knee, Last Myocardial Infarction Date:: 2017 History of Any Multi-Drug Resistant Organisms: None Reported Date of last positivie culture/infection: 10/01/22 MDRO Source:: Sputum Past Surgical History: Cholecystectomy, Coronary Bypass/CABG, Heart Cath eterization With Stent, Hernia Repair, Orthopedic Surgery Additional Past Surgical History / Comment(s): lt knee replacement(total of 4 sx), colonoscopy, Left knee cap removal with antibiotic spacers placed, Past Anesthesia/Blood Transfusion Reactions: No Reported Reaction Date of Last Stent Placement:: 10/2015 Past Psychological History: No Psychological Hx Reported Additional Psychological History / Comment(s): Pt resides with his spouse. He uses a walker to ambulate. Smoking Status: Former smoker Past Alcohol Use History: Occasional Additional Past Alcohol Use History / Comment(s): Pt started smoking as teen and quit 1983 smoked 2 ppd. Pt usually has one drink a night. Past Drug Use History: None Reported - Past Family History Father Family Medical History: Diabetes Mellitus Mother Family Medical History: CVA/TIA, Hypertension Medications and Allergies Home Medications Medication Instructions Recorded Confirmed Type allopurinoL [Zyloprim] 300 mg PO DAILY 08/07/17 03/29/23 History Gabapentin 1,200 mg PO TID@1400,1800,2200 10/02/18 03/29/23 History Levothyroxine Sodium [Synthroid] 112 mcg PO DAILY 10/02/18 03/29/23 History Levothyroxine Sodium [Synthroid] 125 mcg PO DAILY 10/02/18 03/29/23 History Nitroglycerin Sl Tabs [Nitrostat] 0.4 mg SL Q5M PRN 10/02/18 03/29/23 History carvediloL [Coreg] 6.25 mg PO BID-W/MEALS 03/17/21 03/29/23 History Atorvastatin [Lipitor] 40 mg PO HS 10/19/21 03/29/23 History Apixaban [Eliquis] 5 mg PO BID 09/28/22 03/29/23 History Budesonide/Formoterol Fumarate 2 puff INHALATION RT-BID 09/28/22 03/29/23 History [Symbicort 80-4.5 Mcg Inhaler] HYDROcodone/APAP 7.5-325MG [Wright 1 tab PO BID PRN 09/28/22 03/29/23 History 7.5-325] Magnesium Oxide [Mag-Ox] 400 mg PO BID 09/28/22 03/29/23 History Meclizine [Antivert] 12.5 mg PO TID PRN 09/28/22 03/29/23 History Albuterol Sulfate [Proventil Hfa] 1 puff INHALATION RT-Q6H PRN 11/22/22 03/29/23 History Omeprazole 20 mg PO DAILY 11/22/22 03/29/23 History Furosemide [Lasix] 20 mg PO BID@0900,1600 03/29/23 03/29/23 History Glimepiride [Amaryl] 2 mg PO BID 03/29/23 03/29/23 History Allergies Allergy/AdvReac Type Severity Reaction Status Date / Time Sulfa (Sulfonamide Allergy Mild Rash/Hives Verified 03/29/23 07:32 Antibiotics) cephalexin [From Keflex] Allergy Unknown Verified 03/29/23 07:32 clopidogrel [From Plavix] Allergy Rash/Hives Verified 03/29/23 07:32 codeine Allergy Rash/Nausea Verified 03/29/23 07:32 & Vomiting Iodine and Iodide Containing Allergy Rash/Hives Verified 03/29/23 07:32 Produc levofloxacin [From Levaquin] Allergy urticaria/r Verified 03/29/23 07:32 belle shellfish derived [Shellfish] Allergy urticaria/r Verified 03/29/23 07:32 belle lisinopril AdvReac Angiodema Verified 03/29/23 07:32 of tongue oxycodone AdvReac Hallucinati Verified 03/29/23 07:32 ons solifenacin AdvReac Nausea & Verified 03/29/23 07:32 Vomiting Physical Exam Vitals: Vital Signs Temp Pulse Pulse Resp BP BP Pulse Ox 03/29/23 07:00 97.7 F 68 17 105/64 94 L 03/29/23 01:01 97.8 F 86 18 118/76 96 03/29/23 00:00 98 F 81 18 121/77 94 L 03/28/23 22:52 81 18 108/76 96 03/28/23 22:30 85 03/28/23 22:21 85 03/28/23 21:45 77 18 112/78 95 03/28/23 20:01 98.1 F 90 18 104/72 95 Intake and Output 03/28/23 03/29/23 03/29/23 22:59 06:59 14:59 Intake Total 40 Output Total 500 Balance -460 Intake: Intake, IV Titration 40 Amount Sodium Chloride 0.9% 1, 40 000 ml @ 20 mls/hr IV . Q24H [facility] Rx#:[id number] Output: Urine 500 Other: Voiding Method Urinal # Voids 1 Weight 101.151 kg 126 kg GENERAL EXAM: Alert, pleasant 77-year-old male, on RA, comfortable in no apparent distress. HEAD: Normocephalic. EYES: Normal reaction of pupils, equal size. NOSE: Clear with pink turbinates. THROAT: No erythema or exudates. NECK: No masses, no JVD. CHEST: No chest wall deformity. LUNGS: Equal air entry with bilateral end expiratory wheeze, few scattered rhonchi. CVS: S1 and S2 normal with no audible murmur, regular rhythm. ABDOMEN: No hepatosplenomegaly, normal bowel sounds, no guarding or rigidity. SPINE: No scoliosis or deformity SKIN: No rashes CENTRAL NERVOUS SYSTEM: No focal deficits, tone is normal in all 4 extremities. EXTREMITIES: There is changes of chronic venous stasis with peripheral edema. No clubbing, no cyanosis. Peripheral pulses are intact. Results - Laboratory Findings CBC and BMP: 03/28/23 20:17 03/28/23 20:17 Abnormal lab findings: Abnormal Labs 03/28/23 03/28/23 03/29/23 20:17 20:17 05:42 WBC 16.3 H RDW 15.7 H Plt Count 145 L Neutrophils # 13.9 H Sodium 135 L BUN 32 H Creatinine 1.51 H Glucose 171 H POC Glucose (mg/dL) 210 H Total Bilirubin 1.7 H AST 16 L 06/02/23 10:54 WBC RDW Plt Count Neutrophils # Sodium BUN Creatinine Glucose POC Glucose (mg/dL) 328 H Total Bilirubin AST - Diagnostic Findings Chest x-ray: image reviewed Assessment and Plan Plan: Acute on chronic shortness of breath, related to fluid overload/CHF. Patient m ay also have a component of COPD exacerbation as the patient's of cough and congestion. Nevertheless, there is clearly a component of CHF with elevated proBNP level and increased vessel markings and the patient is currently on IV Lasix CHF systolic heart failure and ejection fraction of 20-25% Moderate degree of aortic stenosis and severe pulmonary hypertension as noted on a previous echocardiogram that was done in December 2022 Chronic stage III kidney disease, creatinine is stable for now COPD the patient is a chronic ex-smoker coronary artery disease with previous bypass surgery and previous coronary intervention and stenting Hypothyroidism. Hyperlipidemia. chronic atrial fibrillation. The patient is currently on long-term and coagulation with Eliquis. History of gallstone pancreatitis Plan Continue diuresis with IV Lasix DuoNeb neb nebulized treatments [id number] Symbicort 2 puffs twice a day IV Solu-Medrol 60 mg every 6 hours Resume all medications Oxygen as needed and the patient is currently on room air oxygen We'll continue to follow
[2023-03-29] MEDS: GABAPENTIN 400 MG CAP PO SCH ×3 (13:16→20:29)
[2023-03-29 13:57] VITALS: BMI 36.6
[2023-03-29] MEDS: carvediloL 6.25 MG TAB PO SCH (15:20)
[2023-03-29 16:24] LABS: Basophils # (A) 0.03 X 10*3/uL (0.00-0.10); Basophils % (A) 0.3 %; Eosinophils # (A) 0 X 10*3/uL (0.04-0.35); Eosinophils % (A) 0 %; HCT 44.2 % (39.6-50.0); HGB 13.9 g/dL (13.0-17.0); Immature Grans, Automated 0.6 %; Lymphocytes # (A) 0.25 X 10*3/uL (0.90-5.00); Lymphocytes % (A) 2.5 %; MCH 31.9 pg (27.0-32.0); MCHC 31.4 g/dL (32.0-37.0); MCV 101.4 fL (80.0-97.0); Mean Platelet Volume 10.8 fL (9.5-12.2); Monocytes # (A) 0.09 X 10*3/uL (0.20-1.00); Monocytes % (A) 0.9 %; NRBC Per 100 WBC 0 /100 WBCS (0.0-0.0); Neutrophils # (A) 9.59 X 10*3/uL (1.80-7.70); Neutrophils % (A) 95.7 %; Platelet Count 161 X 10*3/uL (140-440); RBC 4.36 X 10*6/uL (4.40-5.60); RDW 15.8 % (11.5-14.5); WBC 10.02 X 10*3/uL (4.50-10.00)
[2023-03-29 16:42] LABS: African American GFR (CKD) 50.9 (60.0-200.0); Albumin 3.7 g/dL (3.8-4.9); Albumin/Globulin Ratio 1.48 (1.60-3.17); Anion Gap 13.8 mmol/L (10.00-18.00); BUN/Creat Ratio 21.33 Ratio (12.00-20.00); Calcium 9.1 mg/dL (8.7-10.3); Carbon Dioxide 27.2 mmol/L (20.0-27.5); Globulin 2.5 g/dL (1.6-3.3); Potassium 4.3 mmol/L (3.5-5.5); Total Bilirubin 1.2 mg/dL (0.30-1.20); Total Protein 6.2 g/dL (6.2-8.2)
[2023-03-29 16:45] LABS: Glucose,Whole Blood 268 mg/dL (70-110)
--- NOTE | 2023-03-29 17:43 | CA ---
Transthoracic Echo Report Name: Patrick Banuelos Age: 77 Gender: M : 1945 Exam Date: 03/29/2023 10:50 Exam Location: [place] [facility] Ht (in): 73 Wt (lb): 277 Ordering Physician: Karoline Mg MD Attending/Referring Phys: Coordinator [employer] Dean Fitzpatrick Procedure CPT: Indications: chf exacerbation Cardiac Hx: Technical Quality: Technically difficult study Contrast 1: Lumason Total Dose (mL): 5 Contrast 2: Agitated Saline Total Dose (mL): 10 MEASUREMENTS (Male / Female) Normal Values 2D ECHO LV Diastolic Diameter PLAX 5.2 cm 4.2 - 5.9 / 3.9 - 5.3 cm LV Systolic Diameter PLAX 4.6 cm IVS Diastolic Thickness 0.9 cm 0.6 - 1.0 / 0.6 - 0.9 cm LVPW Diastolic Thickness 1.1 cm 0.6 - 1.0 / 0.6 - 0.9 cm LV Relative Wall Thickness 0.4 RV Internal Dim ED PLAX 3.5 cm LVOT Diameter 2.4 cm Aortic Root Diameter 3.0 cm LA Systolic Diameter LX 4.1 cm 3.0 - 4.0 / 2.7 - 3.8 cm LV Diastolic Volume MOD BP 83.6 cm??? 67 - 155 / 56 - 104 cm??? LV Systolic Volume MOD BP 54.1 cm??? 22 - 58 / 19 - 49 cm??? LV Ejection Fraction MOD BP 35.2 % >= 55 % LV Diastolic Volume MOD 4C 126.4 cm??? LV Systolic Volume MOD 4C 59.3 cm??? LV Ejection Fraction MOD 4C 53.1 % LV Diastolic Length 4C 7.9 cm LV Systolic Length 4C 7.4 cm LV Diastolic Volume MOD 2C 53.6 cm??? LV Systolic Volume MOD 2C 49.9 cm??? LV Ejection Fraction MOD 2C 6.8 % LV Diastolic Length 2C 7.6 cm LV Systolic Length 2C 7.4 cm LA Volume 73.7 cm??? 18 - 58 / 22 - 52 cm??? DOPPLER AV Peak Velocity 229.9 cm/s AV Peak Gradient 21.1 mmHg LVOT Peak Velocity 83.9 cm/s LVOT Peak Gradient 2.8 mmHg LVOT Velocity Time Integral 18.8 cm LVOT Stroke Volume 86.9 cm??? LVOT Stroke Volume Index 35.2 ml/m??? AV Area Cont Eq pk 1.7 cm??? MR Peak Velocity 386.6 cm/s MR Peak Gradient 59.8 mmHg Mitral E Point Velocity 106.8 cm/s Mitral A Point Velocity 25.7 cm/s Mitral E to A Ratio 4.2 MV Deceleration Time 159.9 ms TR Peak Velocity 264.4 cm/s TR Peak Gradient 28.0 mmHg Right Ventricular Systolic Press 33.0 mmHg PV Peak Velocity 108.0 cm/s PV Peak Gradient 4.7 mmHg FINDINGS Left Ventricle Left ventricular ejection fraction is estimated at 30-35 %. [place] and anteroseptal are hypokinetic Right Ventricle Normal right ventricular size. Right Atrium Mild right atrial dilatation. Left Atrium Mild left atrial dilatation. LA Volume Index= 30ml/m2 Mitral Valve Mild MAC. Mild MR. Aortic Valve Moderately calcified AV. Trace AI. Estimated AV Area by VTI=1.7cm2 Tricuspid Valve Tricuspid valve not well visualized. Moderate TR. RVSP= 32mmhg Pulmonic Valve Pulmonic valve not well visualized. No pulmonic regurgitation. Pericardium Normal pericardium. Aorta Normal size aortic root and proximal ascending aorta. CONCLUSIONS Ischemic cardiomyopathy with an ejection fraction of 30-35% consistent with severe LV dysfunction Iritic sclerosis with mild aortic stenosis Previewed by: Dr. Bruno Marie MD (Electronically Signed) Final Date: 29 March 2023 17:43
[2023-03-29] MEDS: SODIUM CHLORIDE 0.9% 1,000 ML IV SCH (20:29)
[2023-03-29] MEDS: ATORVASTATIN 40 MG TAB PO SCH (20:29)
[2023-03-29] MEDS: SYMBICORT 80-4.5 MCG INHALER INHALATION SCH (21:14)
[2023-03-29 21:18] LABS: Glucose,Whole Blood 341 mg/dL (70-110)
--- NOTE | 2023-03-29 22:58 | CONS ---
CONSULTATION CHIEF COMPLAINT: Shortness of breath. HISTORY OF PRESENT ILLNESS: Vin is a 77-year-old gentleman, who has had recurrent hospitalizations related to congestive heart failure, comes in with another episode of CHF exacerbation. He has known coronary artery disease, prior bypass surgery, ischemic cardiomyopathy with severe LV systolic dysfunction, atrial fibrillation, hypertension, and dyslipidemia. He comes in complaining of progressively worsening shortness of breath for the last several days. He has had leg edema, shortness of breath, PND, and orthopnea. He has known severe LV systolic dysfunction and will undergo an echocardiogram on this admission to reassess his LV function. His labs show that the BNP is elevated at 5340. BUN is 32, creatinine is 1.5. Hemoglobin is normal at 14. Troponin is negative. EKG shows atrial fibrillation with right bundle-branch block and secondary ST-T wave changes. MEDICATIONS AT HOME: Included: 1. Amaryl. 2. Omeprazole. 3. Antivert. 4. Synthroid. 5. Lipitor. 6. Coreg. 7. Eliquis. 8. Symbicort. 9. Lasix. He is currently on Lasix 40 mg IV q.12. PAST MEDICAL HISTORY: Significant for coronary artery disease, status post CABG; ischemic cardiomyopathy; atrial fibrillation; and COPD. ALLERGIES: Multiple drug allergies. They are charted, and I reviewed them. FAMILY HISTORY: Negative for premature coronary artery disease. SOCIAL HISTORY: Negative for current smoking, EtOH abuse, or drug abuse. REVIEW OF SYSTEMS: 14 out of 14 review of systems has been performed. Pertinents are as documented. PHYSICAL EXAMINATION: GENERAL: Comfortable at rest. VITAL SIGNS: Afebrile. Vital signs are stable. CHEST: Reveals diminished air entry at the bases. HEART: Reveals first and second heart sounds. Systolic murmur at the apex. ABDOMEN: Soft. EXTREMITIES: Exam of extremities reveals mild edema. Peripheral pulses are felt. LABORATORY DATA: Show that the hemoglobin is 14. Creatinine is elevated. BNP is elevated. Troponin is normal. ASSESSMENT: 1. Acute exacerbation of chronic systolic heart failure. 2. Persistent atrial fibrillation with controlled ventricular rate. 3. Coronary artery disease, status post coronary artery bypass grafting. PLAN: I am going to obtain a 2D echo. Continue the patient on IV Lasix. If necessary, increase the dose of Lasix tomorrow. Prognosis is guarded. MMODL / IJN: [id number] /
[2023-03-30] MEDS: methylPREDNISolone SOD SUCCI 125 MG/2 ML VIAL IV SCH ×3 (00:11→11:53)
[2023-03-30] MEDS: ALBUTEROL NEBULIZED 2.5 MG/3 ML INHALATION PRN (03:40)
[2023-03-30 06:05] LABS: Glucose,Whole Blood 299 mg/dL (70-110)
[2023-03-30] MEDS: LEVOTHYROXINE 125 MCG TAB PO SCH (07:02)
[2023-03-30] MEDS: INSULIN ASPART (NovoLOG) 100 UNIT/ML VIAL SQ SCH ×4 (07:02→21:16)
[2023-03-30] MEDS: PANTOPRAZOLE 40 MG TABLET PO SCH (07:02)
[2023-03-30] MEDS: LEVOTHYROXINE 112 MCG TAB PO SCH (07:02)
[2023-03-30] MEDS: FUROSEMIDE 40 MG TAB PO SCH ×2 (08:31→21:16)
[2023-03-30] MEDS: carvediloL 6.25 MG TAB PO SCH ×2 (08:31→16:52)
[2023-03-30] MEDS: APIXABAN 5 MG TAB PO SCH ×2 (08:31→21:16)
[2023-03-30] MEDS: allopurinoL 300 MG TAB PO SCH (08:31)
[2023-03-30] MEDS: GLIMEPIRIDE 2 MG TAB PO SCH ×2 (08:32→21:16)
[2023-03-30] MEDS: SYMBICORT 80-4.5 MCG INHALER INHALATION SCH ×2 (09:20→20:58)
[2023-03-30 09:23] LABS: African American GFR (CKD) 66 (>60 ml/min/1.73 sqM); Anion Gap 10 mmol/L; Blood Urea Nitrogen 43 mg/dL (9-20); Calcium 8.6 mg/dL (8.4-10.2); Carbon Dioxide 25 mmol/L (22-30); Chloride 99 mmol/L (98-107); Glucose 257 mg/dL (74-99); Non-African American GFR(CKD) 57 (>60 ml/min/1.73 sqM); Potassium 3.7 mmol/L (3.5-5.1); Sodium 134 mmol/L (137-145)
[2023-03-30 11:22] LABS: Glucose,Whole Blood 406 mg/dL (70-110)
--- NOTE | 2023-03-30 12:15 | P.PN ---
Subjective Progress Note Date: 03/30/23 77-year-old male patient came into the hospital yesterday because of worsening shortness of breath. He felt that the breathing was progressively getting worse over the past 2 days. He had increased cough and congestion and some little bit of chest discomfort. No pressure. No angina. No radiation to his neck or back. No pleurisy. No hemoptysis. No reported fever or chills. He decided to come into the hospital on the chest x-ray showed 30 megaly with some mild pulmonary vessel congestion. His proBNP level was 5340. His echoes at 16.3 with a hemoglobin of 14 and a platelet count of 145. He has chronic kidney disease and the patient's creatinine is at 1.5 with a BUN of 32 and his sodium level is at 135. The patient is currently on room air oxygen. The patient's is hemodynamically stable. He has had previous admissions for CHF exacerbation, most recent hospitalization was in December 2022 and the patient states that he was taking his medications and he has been very compliant without any interruptions. He is known to have coronary artery disease with his bypass surgery and previous coronary intervention, is known to have atrial fibrillation, chronic stage III kidney disease, COPD, previous history of CVA, diabetes mellitus type 2, gallstone pancreatitis and his previous echocardiogram that was done on 12/26/2021 showed a severe cardiomyopathy with an ejection fraction of 20-25% and mild concentric LVH and moderate aortic stenosis will also present and the patient moderate degree of pulmonary hypertension with a PA pressures of 54. Most recent CAT scan of the chest that was done on 12/25/2022 showed cardiomegaly, generalized anasarca and small right-sided pleural effusion and interstitial edema. On 03.30, the patient is doing well. Much improved since yesterday as the patient was being treated for CHF/COPD exacerbation. The patient on nebulizer treatments with albuterol and IV Solu-Medrol and patient is also on oral Lasix 40 mg twice a day. He is currently on room air oxygen. No chest pain. BUN is at 43 with a creatinine of 1.2. Potassium levels at 3.7 and a sodium level is at 134. No chest pain. No altered mentation. Chest x-ray from admission was noted. Objective - Vital Signs Vital signs: Vital Signs Temp 97.7 F 03/30/23 07:24 Pulse 86 03/30/23 07:24 Resp 17 03/30/23 07:24 BP 110/67 03/30/23 07:24 Pulse Ox 97 03/30/23 07:24 FiO2 Intake & Output 03/29/23 03/30/23 03/30/23 18:59 06:59 18:59 Intake Total 40 Output Total 500 Balance -460 Weight 126 kg Intake: Intake, IV Titration 40 Amount Sodium Chloride 0.9% 1, 40 000 ml @ 20 mls/hr IV . Q24H [facility] Rx#:[id number] Output: Urine 500 Other: # Voids 4 4 # Bowel Movements 1 1 - Exam GENERAL EXAM: Alert, pleasant 77-year-old male, on RA, comfortable in no apparent distress. HEAD: Normocephalic. EYES: Normal reaction of pupils, equal size. NOSE: Clear with pink turbinates. THROAT: No erythema or exudates. NECK: No masses, no JVD. CHEST: No chest wall deformity. LUNGS: Equal air entry with bilateral end expiratory wheeze, few scattered rhonchi. CVS: S1 and S2 normal with no audible murmur, regular rhythm. ABDOMEN: No hepatosplenomegaly, normal bowel sounds, no guarding or rigidity. SPINE: No scoliosis or deformity SKIN: No rashes CENTRAL NERVOUS SYSTEM: No focal deficits, tone is normal in all 4 extremities. EXTREMITIES: There is changes of chronic venous stasis with peripheral edema. No clubbing, no cyanosis. Peripheral pulses are intact. - Labs CBC & Chem 7: 03/29/23 09:24 03/30/23 04:03 Labs: Abnormal Lab Results - Last 24 Hours (Table) 03/29/23 03/29/23 03/29/23 Range/Units 09:24 09:24 10:54 WBC 10.02 H (4.50-10.00) X 10*3/uL RBC 4.36 L (4.40-5.60) X 10*6/uL MCV 101.4 H (80.0-97.0) fL MCHC 31.4 L (32.0-37.0) g/dL RDW 15.8 H (11.5-14.5) % Immature Gran # 0.06 H (0.00-0.04) X 10*3/uL Neutrophils # 9.59 H (1.80-7.70) X 10*3/uL Lymphocytes # 0.25 L (0.90-5.00) X 10*3/uL Monocytes # 0.09 L (0.20-1.00) X 10*3/uL Eosinophils # 0 L (0.04-0.35) X 10*3/uL Sodium (137-145) mmol/L BUN 32.0 H (9.0-27.0) mg/dL Est GFR (CKD-EPI)AfAm 50.9 L (60.0-200.0) Est GFR (CKD-EPI)NonAf 44.0 L (60.0-200.0) BUN/Creatinine Ratio 21.33 H (12.00-20.00) Ratio Glucose 315 H (70-110) mg/dL POC Glucose (mg/dL) 328 H (70-110) mg/dL AST 9 L (14-35) U/L Albumin 3.7 L (3.8-4.9) g/dL Albumin/Globulin Ratio 1.48 L (1.60-3.17) g/dL 03/29/23 03/29/23 03/30/23 Range/Units 16:44 21:17 04:03 WBC (4.50-10.00) X 10*3/uL RBC (4.40-5.60) X 10*6/uL MCV (80.0-97.0) fL MCHC (32.0-37.0) g/dL RDW (11.5-14.5) % Immature Gran # (0.00-0.04) X 10*3/uL Neutrophils # (1.80-7.70) X 10*3/uL Lymphocytes # (0.90-5.00) X 10*3/uL Monocytes # (0.20-1.00) X 10*3/uL Eosinophils # (0.04-0.35) X 10*3/uL Sodium 134 L (137-145) mmol/L BUN 43 H (9.0-27.0) mg/dL Est GFR (CKD-EPI)AfAm (60.0-200.0) Est GFR (CKD-EPI)NonAf (60.0-200.0) BUN/Creatinine Ratio (12.00-20.00) Ratio Glucose 257 H (70-110) mg/dL POC Glucose (mg/dL) 268 H 341 H (70-110) mg/dL AST (14-35) U/L Albumin (3.8-4.9) g/dL Albumin/Globulin Ratio (1.60-3.17) g/dL 03/30/23 Range/Units 06:04 WBC (4.50-10.00) X 10*3/uL RBC (4.40-5.60) X 10*6/uL MCV (80.0-97.0) fL MCHC (32.0-37.0) g/dL RDW (11.5-14.5) % Immature Gran # (0.00-0.04) X 10*3/uL Neutrophils # (1.80-7.70) X 10*3/uL Lymphocytes # (0.90-5.00) X 10*3/uL Monocytes # (0.20-1.00) X 10*3/uL Eosinophils # (0.04-0.35) X 10*3/uL Sodium (137-145) mmol/L BUN (9.0-27.0) mg/dL Est GFR (CKD-EPI)AfAm (60.0-200.0) Est GFR (CKD-EPI)NonAf (60.0-200.0) BUN/Creatinine Ratio (12.00-20.00) Ratio Glucose (70-110) mg/dL POC Glucose (mg/dL) 299 H (70-110) mg/dL AST (14-35) U/L Albumin (3.8-4.9) g/dL Albumin/Globulin Ratio (1.60-3.17) g/dL Assessment and Plan Plan: Acute on chronic shortness of breath, related to fluid overload/CHF. Patient may also have a component of COPD exacerbation as the patient's of cough and congestion. Nevertheless, there is clearly a component of CHF with elevated proBNP level and increased vessel markings and the patient is currently on IV Lasix CHF systolic heart failure and ejection fraction of 20-25% Moderate degree of aortic stenosis and severe pulmonary hypertension as noted on a previous echocardiogram that was done in December 2022 Chronic stage III kidney disease, creatinine is stable for now COPD the patient is a chronic ex-smoker coronary artery disease with previous bypass surgery and previous coronary intervention and stenting Hypothyroidism. Hyperlipidemia. chronic atrial fibrillation. The patient is currently on long-term and coagulation with Eliquis. History of gallstone pancreatitis Plan Continue diuresis and the patient is currently on by mouth Lasix DuoNeb neb nebulized treatments [id number] Symbicort 2 puffs twice a day IV Solu-Medrol 60 mg every 6 hours Blood sugar management as per medicine We'll taper this patient to a prednisone burst taper as of tomorrow Resume all medications Oxygen as needed and the patient is currently on room air oxygen We'll continue to follow
[2023-03-30] MEDS ORDERED: INSULIN ASPART (NovoLOG) 100 UNIT/ML VIAL SQ ONE (12:27)
--- NOTE | 2023-03-30 14:06 | P.PN ---
Subjective Progress Note Date: 03/30/23 Patrick Banuelos is a 77-year-old male patient who presents to the ER with concerns of increased shortness of breath that has been occurring over the past few days. Patient has a past medical history of CHF, COPD, atrial fibrillation, asthma, COPD, diabetes mellitus, hypertension, [place], pneumonia, coronary artery bypass Surgery and ex-smoker. Patient denies any recent illness or increased edema to lower extremities. Chest x-ray completed showing cardiomegaly and mild pulmonary vascular congestion. BNP 5340. Creatinine 1.51 bun 32 this does appear patient's baseline. Patient was given IV Lasix. Cardiology and pulmonary services also consulted. Upon exam patient noted to have increased wheezing upon expiration patient started on IV steroids. Patient does report improvement with shortness of breath from admission. Current vital signs temp 97.7, heart rate 60. 17, blood pressure 105/64 with pulse ox 94% on room air On 03/30/2023 patient was seen and examined on the telemetry floor he is alert and oriented 3 in no apparent distress he is still complaining of shortness of breath with any activity otherwise he denies any complaints there is no fever or chills no headache or dizziness no chest pain, he has occasional cough no nausea or vomiting no abdominal pain no diarrhea and no urinary symptoms Objective - Vital Signs Vital signs: Vital Signs Temp 97.7 F 03/30/23 07:24 Pulse 86 03/30/23 07:24 Resp 17 03/30/23 07:24 BP 110/67 03/30/23 07:24 Pulse Ox 97 03/30/23 07:24 FiO2 Intake & Output 03/29/23 03/30/23 03/30/23 18:59 06:59 18:59 Intake Total 40 Output Total 500 Balance -460 Weight 126 kg Intake: Intake, IV Titration 40 Amount Sodium Chloride 0.9% 1, 40 000 ml @ 20 mls/hr IV . Q24H [facility] Rx#:[id number] Output: Urine 500 Other: # Voids 4 4 # Bowel Movements 1 1 - Exam In general patient is alert and oriented x 3 in no distress HEENT head normocephalic and atraumatic Neck is supple no JVD no goiter no lymphadenopathy no carotid bruit Chest examination is clear to auscultation no crackles no wheezing Cardiac exam reveals regular heart sounds S1 and S2 no gallops no murmurs Abdomen is soft nontender no organomegaly with normal bowel sounds Extremity exam reveals no edema no cyanosis or clubbing Neurological examination reveals no gross focal deficits - Labs CBC & Chem 7: 03/29/23 09:24 03/30/23 04:03 Labs: Abnormal Lab Results - Last 24 Hours (Table) 03/29/23 03/29/23 03/29/23 Range/Units 09:24 09:24 16:44 WBC 10.02 H (4.50-10.00) X 10*3/uL RBC 4.36 L (4.40-5.60) X 10*6/uL MCV 101.4 H (80.0-97.0) fL MCHC 31.4 L (32.0-37.0) g/dL RDW 15.8 H (11.5-14.5) % Immature Gran # 0.06 H (0.00-0.04) X 10*3/uL Neutrophils # 9.59 H (1.80-7.70) X 10*3/uL Lymphocytes # 0.25 L (0.90-5.00) X 10*3/uL Monocytes # 0.09 L (0.20-1.00) X 10*3/uL Eosinophils # 0 L (0.04-0.35) X 10*3/uL Sodium (137-145) mmol/L BUN 32.0 H (9.0-27.0) mg/dL Est GFR (CKD-EPI)AfAm 50.9 L (60.0-200.0) Est GFR (CKD-EPI)NonAf 44.0 L (60.0-200.0) BUN/Creatinine Ratio 21.33 H (12.00-20.00) Ratio Glucose 315 H (70-110) mg/dL POC Glucose (mg/dL) 268 H (70-110) mg/dL AST 9 L (14-35) U/L Albumin 3.7 L (3.8-4.9) g/dL Albumin/Globulin Ratio 1.48 L (1.60-3.17) g/dL 03/29/23 03/30/23 03/30/23 Range/Units 21:17 04:03 06:04 WBC (4.50-10.00) X 10*3/uL RBC (4.40-5.60) X 10*6/uL MCV (80.0-97.0) fL MCHC (32.0-37.0) g/dL RDW (11.5-14.5) % Immature Gran # (0.00-0.04) X 10*3/uL Neutrophils # (1.80-7.70) X 10*3/uL Lymphocytes # (0.90-5.00) X 10*3/uL Monocytes # (0.20-1.00) X 10*3/uL Eosinophils # (0.04-0.35) X 10*3/uL Sodium 134 L (137-145) mmol/L BUN 43 H (9.0-27.0) mg/dL Est GFR (CKD-EPI)AfAm (60.0-200.0) Est GFR (CKD-EPI)NonAf (60.0-200.0) BUN/Creatinine Ratio (12.00-20.00) Ratio Glucose 257 H (70-110) mg/dL POC Glucose (mg/dL) 341 H 299 H (70-110) mg/dL AST (14-35) U/L Albumin (3.8-4.9) g/dL Albumin/Globulin Ratio (1.60-3.17) g/dL 03/30/23 Range/Units 11:21 WBC (4.50-10.00) X 10*3/uL RBC (4.40-5.60) X 10*6/uL MCV (80.0-97.0) fL MCHC (32.0-37.0) g/dL RDW (11.5-14.5) % Immature Gran # (0.00-0.04) X 10*3/uL Neutrophils # (1.80-7.70) X 10*3/uL Lymphocytes # (0.90-5.00) X 10*3/uL Monocytes # (0.20-1.00) X 10*3/uL Eosinophils # (0.04-0.35) X 10*3/uL Sodium (137-145) mmol/L BUN (9.0-27.0) mg/dL Est GFR (CKD-EPI)AfAm (60.0-200.0) Est GFR (CKD-EPI)NonAf (60.0-200.0) BUN/Creatinine Ratio (12.00-20.00) Ratio Glucose (70-110) mg/dL POC Glucose (mg/dL) 406 H (70-110) mg/dL AST (14-35) U/L Albumin (3.8-4.9) g/dL Albumin/Globulin Ratio (1.60-3.17) g/dL Assessment and Plan Assessment: 1. Dyspnea secondary to CHF and COPD exacerbation 2. History of chronic systolic congestive heart failure 3. History of COPD 4. Chronic kidney disease 6. History of ischemic cardiomyopathy 7. History of chronic persistent atrial fibrillation maintained on eliquis 8. History of coronary artery disease 9. History of aortic stenosis and mitral regurg with pulmonary hypertension 10. History of essential hypertension 11. History of hyperlipidemia 12. History of diabetes mellitus DVT prophylaxis eliquis. GI prophylaxis Protonix Cardiology and pulmonary service is consulted Patient was given 1 dose of IV Lasix started on by mouth Lasix Patient started on IV steroids 2-D echocardiogram ordered Repeat labs ordered
--- NOTE | 2023-03-30 14:45 | P.PN ---
Subjective Progress Note Date: 03/30/23 This is a pleasant 77-year-old gentleman who follows in the office with Dr. Price. Has a known history of CAD with prior bypass surgery, ischemic cardiomyopathy with severe LV systolic function with an ejection fraction of 20- 25% in the past with echocardiogram this admission showing an ejection fraction of 30-35% with mild A-moderate TR. Also has a history of atrial fibrillation, hypertension and dyslipidemia. Presented complaining of progressively worsening shortness of breath for the last several days as well as orthopnea and PND. NT proBNP was elevated at 5340. He's been on oral Lasix 40 mg 2 times a day. Also felt to have acute exacerbation of COPD. And is currently on IV Solu-Medrol. Overall he feels his breathing has improved some and he is less congested. He's had no complaints of lower extremity edema. Had no chest discomfort, palpitations, dizziness or syncope. Objective - Vital Signs Vital signs: Vital Signs Temp 97.7 F 03/30/23 07:24 Pulse 86 03/30/23 07:24 Resp 17 03/30/23 07:24 BP 110/67 03/30/23 07:24 Pulse Ox 97 03/30/23 07:24 FiO2 Intake & Output 03/29/23 03/30/23 03/30/23 18:59 06:59 18:59 Intake Total 40 Output Total 500 Balance -460 Weight 126 kg Intake: Intake, IV Titration 40 Amount Sodium Chloride 0.9% 1, 40 000 ml @ 20 mls/hr IV . Q24H [facility] Rx#:[id number] Output: Urine 500 Other: # Voids 4 4 # Bowel Movements 1 1 - Exam PHYSICAL EXAMINATION: HEENT: Head is atraumatic, normocephalic. Pupils equal, round. Neck is supple. There is no elevated jugular venous pressure. HEART EXAMINATION: Heart sounds irregular rate and rhythm, S1 and S2 normal. Systolic ejection murmur at the base. CHEST EXAMINATION: Lungs reveal basilar crackles with scattered rhonchi and coarse expiratory wheezing throughout. No chest wall tenderness is noted on palpation or with deep breathing. ABDOMEN: Soft, nontender. Bowel sounds are heard. No organomegaly noted. EXTREMITIES: 2+ peripheral pulses with no evidence of peripheral edema and no calf tenderness noted. NEUROLOGIC patient is awake, alert and oriented x3. . - Labs CBC & Chem 7: 03/29/23 09:24 03/30/23 04:03 Labs: Abnormal Lab Results - Last 24 Hours (Table) 03/29/23 03/29/23 03/29/23 Range/Units 09:24 09:24 16:44 WBC 10.02 H (4.50-10.00) X 10*3/uL RBC 4.36 L (4.40-5.60) X 10*6/uL MCV 101.4 H (80.0-97.0) fL MCHC 31.4 L (32.0-37.0) g/dL RDW 15.8 H (11.5-14.5) % Immature Gran # 0.06 H (0.00-0.04) X 10*3/uL Neutrophils # 9.59 H (1.80-7.70) X 10*3/uL Lymphocytes # 0.25 L (0.90-5.00) X 10*3/uL Monocytes # 0.09 L (0.20-1.00) X 10*3/uL Eosinophils # 0 L (0.04-0.35) X 10*3/uL Sodium (137-145) mmol/L BUN 32.0 H (9.0-27.0) mg/dL Est GFR (CKD-EPI)AfAm 50.9 L (60.0-200.0) Est GFR (CKD-EPI)NonAf 44.0 L (60.0-200.0) BUN/Creatinine Ratio 21.33 H (12.00-20.00) Ratio Glucose 315 H (70-110) mg/dL POC Glucose (mg/dL) 268 H (70-110) mg/dL AST 9 L (14-35) U/L Albumin 3.7 L (3.8-4.9) g/dL Albumin/Globulin Ratio 1.48 L (1.60-3.17) g/dL 03/29/23 03/30/23 03/30/23 Range/Units 21:17 04:03 06:04 WBC (4.50-10.00) X 10*3/uL RBC (4.40-5.60) X 10*6/uL MCV (80.0-97.0) fL MCHC (32.0-37.0) g/dL RDW (11.5-14.5) % Immature Gran # (0.00-0.04) X 10*3/uL Neutrophils # (1.80-7.70) X 10*3/uL Lymphocytes # (0.90-5.00) X 10*3/uL Monocytes # (0.20-1.00) X 10*3/uL Eosinophils # (0.04-0.35) X 10*3/uL Sodium 134 L (137-145) mmol/L BUN 43 H (9.0-27.0) mg/dL Est GFR (CKD-EPI)AfAm (60.0-200.0) Est GFR (CKD-EPI)NonAf (60.0-200.0) BUN/Creatinine Ratio (12.00-20.00) Ratio Glucose 257 H (70-110) mg/dL POC Glucose (mg/dL) 341 H 299 H (70-110) mg/dL AST (14-35) U/L Albumin (3.8-4.9) g/dL Albumin/Globulin Ratio (1.60-3.17) g/dL 03/30/23 Range/Units 11:21 WBC (4.50-10.00) X 10*3/uL RBC (4.40-5.60) X 10*6/uL MCV (80.0-97.0) fL MCHC (32.0-37.0) g/dL RDW (11.5-14.5) % Immature Gran # (0.00-0.04) X 10*3/uL Neutrophils # (1.80-7.70) X 10*3/uL Lymphocytes # (0.90-5.00) X 10*3/uL Monocytes # (0.20-1.00) X 10*3/uL Eosinophils # (0.04-0.35) X 10*3/uL Sodium (137-145) mmol/L BUN (9.0-27.0) mg/dL Est GFR (CKD-EPI)AfAm (60.0-200.0) Est GFR (CKD-EPI)NonAf (60.0-200.0) BUN/Creatinine Ratio (12.00-20.00) Ratio Glucose (70-110) mg/dL POC Glucose (mg/dL) 406 H (70-110) mg/dL AST (14-35) U/L Albumin (3.8-4.9) g/dL Albumin/Globulin Ratio (1.60-3.17) g/dL Assessment and Plan Assessment: Acute on chronic heart failure with reduced ejection fraction #2 acute exacerbation of COPD #3 CAD with prior CABG #4 chronic persistent atrial fibrillation #5 hypertension #6 hyperlipidemia #7 diabetes Plan: From cardiology's perspective continue current dose of diuretics. Avoid KLEVER inhibitor, ABR, or Entresto history of angioedema with lisinopril. We will start the patient on Farxiga. Continue monitor renal function and electrolytes. If renal function remained stable may consider adding Aldactone. We will continue to follow the patient and provide further recommendations accordingly. GARDENER note has been reviewed, I agree with a documented findings and plan of care. Patient was seen and examined.
[2023-03-30] MEDS: GABAPENTIN 400 MG CAP PO SCH ×3 (15:51→22:59)
[2023-03-30] MEDS: DAPAGLIFLOZIN PROPANEDIOL 10 MG TABLET PO SCH (15:51)
[2023-03-30] MEDS: methylPREDNISolone SOD SUCCI 40 MG/ML 1 ML VIAL IV SCH (15:51)
[2023-03-30 16:21] LABS: Glucose,Whole Blood 285 mg/dL (70-110)
[2023-03-30 21:03] LABS: Glucose,Whole Blood 173 mg/dL (70-110)
[2023-03-30] MEDS: ATORVASTATIN 40 MG TAB PO SCH (21:16)
[2023-03-30] MEDS: SODIUM CHLORIDE 0.9% 1,000 ML IV SCH (23:07)
[2023-03-31] MEDS: methylPREDNISolone SOD SUCCI 40 MG/ML 1 ML VIAL IV SCH ×3 (00:02→16:10)
[2023-03-31] MEDS: ALBUTEROL NEBULIZED 2.5 MG/3 ML INHALATION PRN (01:07)
[2023-03-31] MEDS: LEVOTHYROXINE 125 MCG TAB PO SCH (05:25)
[2023-03-31] MEDS: LEVOTHYROXINE 112 MCG TAB PO SCH (05:26)
[2023-03-31 05:52] LABS: Basophils % (A) 0 %; Eosinophils % (A) 0 %; HCT 41.4 % (39.0-53.0); HGB 13.6 gm/dL (13.0-17.5); Lymphocytes # (A) 0.4 k/uL (1.0-4.8); Lymphocytes % (A) 3 %; MCH 32.4 pg (25.0-35.0); MCHC 32.9 g/dL (31.0-37.0); MCV 98.7 fL (80.0-100.0); Macrocytosis Slight; Monocytes # (A) 0.3 k/uL (0-1.0); Monocytes % (A) 2 %; Neutrophils % (A) 96 %; Platelet Count 163 k/uL (150-450); RBC 4.19 m/uL (4.30-5.90); RDW 15.3 % (11.5-15.5); WBC 14.7 k/uL (3.8-10.6)
[2023-03-31 06:16] LABS: ALT 13 U/L (4-49); AST 15 U/L (17-59); African American GFR (CKD) 54 (>60 ml/min/1.73 sqM); Albumin 3.1 g/dL (3.5-5.0); Albumin/Globulin Ratio 1.2; Alkaline Phosphatase 64 U/L (38-126); Anion Gap 9 mmol/L; Blood Urea Nitrogen 54 mg/dL (9-20); Calcium 8.7 mg/dL (8.4-10.2); Carbon Dioxide 27 mmol/L (22-30); Chloride 98 mmol/L (98-107); Globulin 2.6 g/dL; Glucose 263 mg/dL (74-99); Non-African American GFR(CKD) 47 (>60 ml/min/1.73 sqM); Potassium 3.6 mmol/L (3.5-5.1); Sodium 134 mmol/L (137-145); Total Bilirubin 0.6 mg/dL (0.2-1.3); Total Protein 5.7 g/dL (6.3-8.2)
[2023-03-31 06:31] LABS: Glucose,Whole Blood 252 mg/dL (70-110)
[2023-03-31 08:28] LABS: Glucose,Whole Blood 384 mg/dL (70-110)
[2023-03-31] MEDS: APIXABAN 5 MG TAB PO SCH ×2 (08:34→20:43)
[2023-03-31] MEDS: allopurinoL 300 MG TAB PO SCH (08:34)
[2023-03-31] MEDS: carvediloL 6.25 MG TAB PO SCH ×2 (08:34→16:52)
[2023-03-31] MEDS: PANTOPRAZOLE 40 MG TABLET PO SCH (08:34)
[2023-03-31] MEDS: FUROSEMIDE 40 MG TAB PO SCH ×2 (08:34→20:43)
[2023-03-31] MEDS: GLIMEPIRIDE 2 MG TAB PO SCH ×2 (08:34→20:42)
[2023-03-31] MEDS: DAPAGLIFLOZIN PROPANEDIOL 10 MG TABLET PO SCH (08:35)
[2023-03-31] MEDS: INSULIN ASPART (NovoLOG) 100 UNIT/ML VIAL SQ SCH ×4 (08:35→20:43)
[2023-03-31] MEDS: SYMBICORT 80-4.5 MCG INHALER INHALATION SCH ×2 (09:11→20:12)
--- NOTE | 2023-03-31 10:08 | P.PN ---
Subjective Progress Note Date: 03/31/23 Patrick Banuelos is a 77-year-old male patient who presents to the ER with concerns of increased shortness of breath that has been occurring over the past few days. Patient has a past medical history of CHF, COPD, atrial fibrillation, asthma, COPD, diabetes mellitus, hypertension, [place], pneumonia, coronary artery bypass Surgery and ex-smoker. Patient denies any recent illness or increased edema to lower extremities. Chest x-ray completed showing cardiomegaly and mild pulmonary vascular congestion. BNP 5340. Creatinine 1.51 bun 32 this does appear patient's baseline. Patient was given IV Lasix. Cardiology and pulmonary services also consulted. Upon exam patient noted to have increased wheezing upon expiration patient started on IV steroids. Patient does report improvement with shortness of breath from admission. Current vital signs temp 97.7, heart rate 60. 17, blood pressure 105/64 with pulse ox 94% on room air On 03/30/2023 patient was seen and examined on the telemetry floor he is alert and oriented 3 in no apparent distress he is still complaining of shortness of breath with any activity otherwise he denies any complaints there is no fever or chills no headache or dizziness no chest pain, he has occasional cough no nausea or vomiting no abdominal pain no diarrhea and no urinary symptoms On 03/31/2023 patient alert and oriented 3. Patient remains on IV Solu-Medrol and IV Lasix. Patient reports some improvement shortness breath. Pulmonary cardiology services are following. Current vital signs temp 97.6, heart rate 78, respiratory 18, blood pressure 118/73 with pulse ox 94% on room air. Objective - Vital Signs Vital signs: Vital Signs Temp 97.6 F 03/31/23 07:37 Pulse 78 03/31/23 07:37 Resp 18 03/31/23 07:37 BP 118/73 03/31/23 07:37 Pulse Ox 94 L 03/31/23 07:37 FiO2 Intake & Output 03/30/23 03/31/23 03/31/23 18:59 06:59 18:59 Output Total 700 Balance -700 Output: Urine 700 Other: # Voids 4 # Bowel Movements 1 - Exam In general patient is alert and oriented x 3 in no distress HEENT head normocephalic and atraumatic Neck is supple no JVD no goiter no lymphadenopathy no carotid bruit Chest examination is clear to auscultation no crackles no wheezing Cardiac exam reveals regular heart sounds S1 and S2 no gallops no murmurs Abdomen is soft nontender no organomegaly with normal bowel sounds Extremity exam reveals no edema no cyanosis or clubbing Neurological examination reveals no gross focal deficits - Labs CBC & Chem 7: 03/31/23 04:51 03/31/23 04:51 Labs: Abnormal Lab Results - Last 24 Hours (Table) 03/30/23 03/30/23 03/30/23 Range/Units 11:21 16:19 21:02 WBC (3.8-10.6) k/uL RBC (4.30-5.90) m/uL Neutrophils # (1.3-7.7) k/uL Lymphocytes # (1.0-4.8) k/uL Sodium (137-145) mmol/L BUN (9-20) mg/dL Creatinine (0.66-1.25) mg/dL Glucose (74-99) mg/dL POC Glucose (mg/dL) 406 H 285 H 173 H (70-110) mg/dL AST (17-59) U/L Total Protein (6.3-8.2) g/dL Albumin (3.5-5.0) g/dL 03/31/23 03/31/23 03/31/23 Range/Units 04:51 04:51 06:30 WBC 14.7 H (3.8-10.6) k/uL RBC 4.19 L (4.30-5.90) m/uL Neutrophils # 14.0 H (1.3-7.7) k/uL Lymphocytes # 0.4 L (1.0-4.8) k/uL Sodium 134 L (137-145) mmol/L BUN 54 H (9-20) mg/dL Creatinine 1.43 H (0.66-1.25) mg/dL Glucose 263 H (74-99) mg/dL POC Glucose (mg/dL) 252 H (70-110) mg/dL AST 15 L (17-59) U/L Total Protein 5.7 L (6.3-8.2) g/dL Albumin 3.1 L (3.5-5.0) g/dL 03/31/23 Range/Units 08:26 WBC (3.8-10.6) k/uL RBC (4.30-5.90) m/uL Neutrophils # (1.3-7.7) k/uL Lymphocytes # (1.0-4.8) k/uL Sodium (137-145) mmol/L BUN (9-20) mg/dL Creatinine (0.66-1.25) mg/dL Glucose (74-99) mg/dL POC Glucose (mg/dL) 384 H (70-110) mg/dL AST (17-59) U/L Total Protein (6.3-8.2) g/dL Albumin (3.5-5.0) g/dL Assessment and Plan Assessment: 1. Dyspnea secondary to CHF and COPD exacerbation 2. History of chronic systolic congestive heart failure 3. History of COPD 4. Chronic kidney disease 6. History of ischemic cardiomyopathy 7. History of chronic persistent atrial fibrillation maintained on eliquis 8. History of coronary artery disease 9. History of aortic stenosis and mitral regurg with pulmonary hypertension 10. History of essential hypertension 11. History of hyperlipidemia 12. History of diabetes mellitus DVT prophylaxis eliquis. GI prophylaxis Protonix Cardiology and pulmonary service is consulted Maintained on IV Lasix Patient started on IV steroids 2-D echocardiogram ordered Repeat labs ordered
[2023-03-31 11:16] LABS: Glucose,Whole Blood 324 mg/dL (70-110)
--- NOTE | 2023-03-31 12:10 | P.PN ---
Subjective Progress Note Date: 03/31/23 77-year-old male patient came into the hospital yesterday because of worsening shortness of breath. He felt that the breathing was progressively getting worse over the past 2 days. He had increased cough and congestion and some little bit of chest discomfort. No pressure. No angina. No radiation to his neck or back. No pleurisy. No hemoptysis. No reported fever or chills. He decided to come into the hospital on the chest x-ray showed 30 megaly with some mild pulmonary vessel congestion. His proBNP level was 5340. His echoes at 16.3 with a hemoglobin of 14 and a platelet count of 145. He has chronic kidney disease and the patient's creatinine is at 1.5 with a BUN of 32 and his sodium level is at 135. The patient is currently on room air oxygen. The patient's is hemodynamically stable. He has had previous admissions for CHF exacerbation, most recent hospitalization was in December 2022 and the patient states that he was taking his medications and he has been very compliant without any interruptions. He is known to have coronary artery disease with his bypass surgery and previous coronary intervention, is known to have atrial fibrillation, chronic stage III kidney disease, COPD, previous history of CVA, diabetes mellitus type 2, gallstone pancreatitis and his previous echocardiogram that was done on 12/26/2021 showed a severe cardiomyopathy with an ejection fraction of 20-25% and mild concentric LVH and moderate aortic stenosis will also present and the patient moderate degree of pulmonary hypertension with a PA pressures of 54. Most recent CAT scan of the chest that was done on 12/25/2022 showed cardiomegaly, generalized anasarca and small right-sided pleural effusion and interstitial edema. On 03.30, the patient is doing well. Much improved since yesterday as the patient was being treated for CHF/COPD exacerbation. The patient on nebulizer treatments with albuterol and IV Solu-Medrol and patient is also on oral Lasix 40 mg twice a day. He is currently on room air oxygen. No chest pain. BUN is at 43 with a creatinine of 1.2. Potassium levels at 3.7 and a sodium level is at 134. No chest pain. No altered mentation. Chest x-ray from admission was noted. On 03/31/2023, the patient is stable on room air oxygen. Still having some chest congestion. He had an episode of mucous production and possible plugging received chest PT. Remains on Symbicort. Remains on amiodarone about treatments [id number]. Remains on IV Solu-Medrol. Lasix has been switched to oral 40 mg by mouth twice a day. Patient was able to give a sputum sample. No new labs are available from today. Objective - Vital Signs Vital signs: Vital Signs Temp 97.6 F 03/31/23 07:37 Pulse 78 03/31/23 07:37 Resp 18 03/31/23 07:37 BP 118/73 03/31/23 07:37 Pulse Ox 94 L 03/31/23 07:37 FiO2 Intake & Output 03/30/23 03/31/23 03/31/23 18:59 06:59 18:59 Output Total 700 Balance -700 Output: Urine 700 Other: # Voids 4 # Bowel Movements 1 - Exam GENERAL EXAM: Alert, pleasant 77-year-old male, on RA, comfortable in no apparent distress. HEAD: Normocephalic. EYES: Normal reaction of pupils, equal size. NOSE: Clear with pink turbinates. THROAT: No erythema or exudates. NECK: No masses, no JVD. CHEST: No chest wall deformity. LUNGS: Equal air entry with bilateral end expiratory wheeze, few scattered rhonchi. CVS: S1 and S2 normal with no audible murmur, regular rhythm. ABDOMEN: No hepatosplenomegaly, normal bowel sounds, no guarding or rigidity. SPINE: No scoliosis or deformity SKIN: No rashes CENTRAL NERVOUS SYSTEM: No focal deficits, tone is normal in all 4 extremities. EXTREMITIES: There is changes of chronic venous stasis with peripheral edema. No clubbing, no cyanosis. Peripheral pulses are intact. - Labs CBC & Chem 7: 03/31/23 04:51 03/31/23 04:51 Labs: Abnormal Lab Results - Last 24 Hours (Table) 03/30/23 03/30/23 03/30/23 Range/Units 11:21 16:19 21:02 WBC (3.8-10.6) k/uL RBC (4.30-5.90) m/uL Neutrophils # (1.3-7.7) k/uL Lymphocytes # (1.0-4.8) k/uL Sodium (137-145) mmol/L BUN (9-20) mg/dL Creatinine (0.66-1.25) mg/dL Glucose (74-99) mg/dL POC Glucose (mg/dL) 406 H 285 H 173 H (70-110) mg/dL AST (17-59) U/L Total Protein (6.3-8.2) g/dL Albumin (3.5-5.0) g/dL 03/31/23 03/31/23 03/31/23 Range/Units 04:51 04:51 06:30 WBC 14.7 H (3.8-10.6) k/uL RBC 4.19 L (4.30-5.90) m/uL Neutrophils # 14.0 H (1.3-7.7) k/uL Lymphocytes # 0.4 L (1.0-4.8) k/uL Sodium 134 L (137-145) mmol/L BUN 54 H (9-20) mg/dL Creatinine 1.43 H (0.66-1.25) mg/dL Glucose 263 H (74-99) mg/dL POC Glucose (mg/dL) 252 H (70-110) mg/dL AST 15 L (17-59) U/L Total Protein 5.7 L (6.3-8.2) g/dL Albumin 3.1 L (3.5-5.0) g/dL 03/31/23 Range/Units 08:26 WBC (3.8-10.6) k/uL RBC (4.30-5.90) m/uL Neutrophils # (1.3-7.7) k/uL Lymphocytes # (1.0-4.8) k/uL Sodium (137-145) mmol/L BUN (9-20) mg/dL Creatinine (0.66-1.25) mg/dL Glucose (74-99) mg/dL POC Glucose (mg/dL) 384 H (70-110) mg/dL AST (17-59) U/L Total Protein (6.3-8.2) g/dL Albumin (3.5-5.0) g/dL Assessment and Plan Plan: Acute on chronic shortness of breath, related to fluid overload/CHF. Patient may also have a component of COPD exacerbation as the patient's of cough and congestion. Nevertheless, there is clearly a component of CHF with elevated proBNP level and increased vessel markings and the patient is currently on IV Lasix CHF systolic heart failure and ejection fraction of 20-25% Moderate degree of aortic stenosis and severe pulmonary hypertension as noted on a previous echocardiogram that was done in December 2022 Chronic stage III kidney disease, creatinine is stable for now COPD the patient is a chronic ex-smoker coronary artery disease with previous bypass surgery and previous coronary intervention and stenting Hypothyroidism. Hyperlipidemia. chronic atrial fibrillation. The patient is currently on long-term and coagulation with Eliquis. History of gallstone pancreatitis Plan Clinically stable Continue same treatment Sputum Gram stain and culture Continue diuresis and the patient is currently on by mouth Lasix DuoNeb neb nebulized treatments [id number] Symbicort 2 puffs twice a day IV Solu-Medrol dose has been tapered Blood sugar management as per medicine Continue oral Lasix Resume all medications Oxygen as needed and the patient is currently on room air oxygen We'll continue to follow
[2023-03-31] MEDS: GABAPENTIN 400 MG CAP PO SCH ×3 (14:39→20:43)
--- NOTE | 2023-03-31 16:18 | P.PN ---
Subjective Progress Note Date: 03/31/23 This is a pleasant 77-year-old gentleman who follows in the office with Dr. Price. Has a known history of CAD with prior bypass surgery, ischemic cardiomyopathy with severe LV systolic function with an ejection fraction of 20- 25% in the past with echocardiogram this admission showing an ejection fraction of 30-35% with mild A-moderate TR. Also has a history of atrial fibrillation, hypertension and dyslipidemia. Presented complaining of progressively worsening shortness of breath for the last several days as well as orthopnea and PND. NT proBNP was elevated at 5340. He's been on oral Lasix 40 mg 2 times a day. Also felt to have acute exacerbation of COPD. And is currently on IV Solu-Medrol. Overall he feels his breathing has improved some and he is less congested. He's had no complaints of lower extremity edema. Had no chest discomfort, palpitations, dizziness or syncope. 03/31/2023 The patient was seen and examined sitting up in the bed. He said for the most part his breathing is feeling a bit better today. Continues to be followed by pulmonary for exacerbation of COPD. He is tolerating the Farxiga. Labs today showed a BUN of 54 and creatinine 1.43. Objective - Vital Signs Vital signs: Vital Signs Temp 97.7 F 03/31/23 13:11 Pulse 88 03/31/23 13:11 Resp 17 03/31/23 13:11 BP 107/65 03/31/23 13:11 Pulse Ox 94 L 03/31/23 13:11 FiO2 Intake & Output 03/30/23 03/31/23 03/31/23 18:59 06:59 18:59 Output Total 700 Balance -700 Output: Urine 700 Other: Voiding Method Toilet Urinal # Voids 4 # Bowel Movements 1 1 - Exam PHYSICAL EXAMINATION: HEENT: Head is atraumatic, normocephalic. Pupils equal, round. Neck is supple. There is no elevated jugular venous pressure. HEART EXAMINATION: Heart sounds irregular rate and rhythm, S1 and S2 normal. Systolic ejection murmur at the base. CHEST EXAMINATION: Lungs reveal coarse expiratory wheezing throughout. No chest wall tenderness is noted on palpation or with deep breathing. ABDOMEN: Soft, nontender. Bowel sounds are heard. No organomegaly noted. EXTREMITIES: 2+ peripheral pulses with no evidence of peripheral edema and no calf tenderness noted. NEUROLOGIC patient is awake, alert and oriented x3. . - Labs CBC & Chem 7: 03/31/23 04:51 03/31/23 04:51 Labs: Abnormal Lab Results - Last 24 Hours (Table) 03/30/23 03/30/23 03/30/23 Range/Units 04:03 16:19 21:02 WBC (3.8-10.6) k/uL RBC (4.30-5.90) m/uL Neutrophils # (1.3-7.7) k/uL Lymphocytes # (1.0-4.8) k/uL Sodium (137-145) mmol/L BUN (9-20) mg/dL Creatinine (0.66-1.25) mg/dL Glucose (74-99) mg/dL POC Glucose (mg/dL) 285 H 173 H (70-110) mg/dL Hemoglobin A1c 7.2 H % AST (17-59) U/L Total Protein (6.3-8.2) g/dL Albumin (3.5-5.0) g/dL 03/31/23 03/31/23 03/31/23 Range/Units 04:51 04:51 06:30 WBC 14.7 H (3.8-10.6) k/uL RBC 4.19 L (4.30-5.90) m/uL Neutrophils # 14.0 H (1.3-7.7) k/uL Lymphocytes # 0.4 L (1.0-4.8) k/uL Sodium 134 L (137-145) mmol/L BUN 54 H (9-20) mg/dL Creatinine 1.43 H (0.66-1.25) mg/dL Glucose 263 H (74-99) mg/dL POC Glucose (mg/dL) 252 H (70-110) mg/dL Hemoglobin A1c % AST 15 L (17-59) U/L Total Protein 5.7 L (6.3-8.2) g/dL Albumin 3.1 L (3.5-5.0) g/dL 03/31/23 03/31/23 Range/Units 08:26 11:15 WBC (3.8-10.6) k/uL RBC (4.30-5.90) m/uL Neutrophils # (1.3-7.7) k/uL Lymphocytes # (1.0-4.8) k/uL Sodium (137-145) mmol/L BUN (9-20) mg/dL Creatinine (0.66-1.25) mg/dL Glucose (74-99) mg/dL POC Glucose (mg/dL) 384 H 324 H (70-110) mg/dL Hemoglobin A1c % AST (17-59) U/L Total Protein (6.3-8.2) g/dL Albumin (3.5-5.0) g/dL Assessment and Plan Assessment: #1 Acute on chronic heart failure with reduced ejection fraction #2 acute exacerbation of COPD #3 CAD with prior CABG #4 chronic persistent atrial fibrillation #5 hypertension #6 hyperlipidemia #7 diabetes Plan: From cardiology's perspective continue current dose of diuretics and beta brigido . Avoid KLEVER inhibitor, ABR, or Entresto history of angioedema with lisinopril. Continue monitor renal function and electrolytes. If renal function remained stable may consider adding Aldactone. We will continue to follow the patient and provide further recommendations accordingly. FOOD SERVICE ASSISTANT note has been reviewed, I agree with a documented findings and plan of care. Patient was seen and examined.
[2023-03-31 16:33] LABS: Glucose,Whole Blood 223 mg/dL (70-110)
[2023-03-31 20:39] LABS: Glucose,Whole Blood 316 mg/dL (70-110)
[2023-03-31] MEDS: ATORVASTATIN 40 MG TAB PO SCH (20:43)
[2023-03-31] MEDS: SODIUM CHLORIDE 0.9% 1,000 ML IV SCH (21:03)
[2023-04-01] MEDS: methylPREDNISolone SOD SUCCI 40 MG/ML 1 ML VIAL IV SCH ×4 (00:15→23:49)
[2023-04-01] MEDS: LEVOTHYROXINE 125 MCG TAB PO SCH (06:17)
[2023-04-01] MEDS: LEVOTHYROXINE 112 MCG TAB PO SCH (06:17)
[2023-04-01 06:24] LABS: Glucose,Whole Blood 284 mg/dL (70-110)
[2023-04-01] MEDS: FUROSEMIDE 40 MG TAB PO SCH ×2 (07:49→21:26)
[2023-04-01] MEDS: GLIMEPIRIDE 2 MG TAB PO SCH ×2 (07:49→21:27)
[2023-04-01] MEDS: APIXABAN 5 MG TAB PO SCH ×2 (07:49→21:27)
[2023-04-01] MEDS: allopurinoL 300 MG TAB PO SCH (07:49)
[2023-04-01] MEDS: PANTOPRAZOLE 40 MG TABLET PO SCH (07:49)
[2023-04-01] MEDS: INSULIN ASPART (NovoLOG) 100 UNIT/ML VIAL SQ SCH ×4 (07:50→21:26)
[2023-04-01] MEDS: carvediloL 6.25 MG TAB PO SCH ×2 (07:50→17:34)
[2023-04-01] MEDS: DAPAGLIFLOZIN PROPANEDIOL 10 MG TABLET PO SCH (07:51)
[2023-04-01 08:54] LABS: Basophils % (A) 0 %; Eosinophils % (A) 0 %; HCT 41.3 % (39.0-53.0); HGB 13.6 gm/dL (13.0-17.5); Lymphocytes # (A) 0.3 k/uL (1.0-4.8); Lymphocytes % (A) 3 %; MCH 32.6 pg (25.0-35.0); MCHC 32.8 g/dL (31.0-37.0); MCV 99.5 fL (80.0-100.0); Macrocytosis Slight; Mean Platelet Volume 8.3; Monocytes # (A) 0.3 k/uL (0-1.0); Monocytes % (A) 2 %; Neutrophils # (A) 11.5 k/uL (1.3-7.7); Neutrophils % (A) 95 %; Platelet Count 159 k/uL (150-450); RBC 4.16 m/uL (4.30-5.90); RDW 15.1 % (11.5-15.5); WBC 12.1 k/uL (3.8-10.6)
[2023-04-01] MEDS: ALBUTEROL NEBULIZED 2.5 MG/3 ML INHALATION PRN ×2 (08:55→22:41)
[2023-04-01] MEDS: SYMBICORT 80-4.5 MCG INHALER INHALATION SCH ×2 (08:56→19:24)
[2023-04-01 09:23] LABS: ALT 14 U/L (4-49); AST 21 U/L (17-59); African American GFR (CKD) 55 (>60 ml/min/1.73 sqM); Albumin 3.2 g/dL (3.5-5.0); Albumin/Globulin Ratio 1.2; Alkaline Phosphatase 48 U/L (38-126); Anion Gap 10 mmol/L; Blood Urea Nitrogen 63 mg/dL (9-20); Calcium 8.7 mg/dL (8.4-10.2); Carbon Dioxide 26 mmol/L (22-30); Chloride 99 mmol/L (98-107); Globulin 2.6 g/dL; Glucose 278 mg/dL (74-99); Non-African American GFR(CKD) 48 (>60 ml/min/1.73 sqM); Sodium 135 mmol/L (137-145); Total Bilirubin 0.8 mg/dL (0.2-1.3); Total Protein 5.8 g/dL (6.3-8.2)
[2023-04-01 09:24] LABS: Potassium 4.3 mmol/L (3.5-5.1)
--- NOTE | 2023-04-01 10:25 | P.PN ---
Subjective Progress Note Date: 04/01/23 HISTORY OF PRESENT ILLNESS: This is a pleasant 77-year-old gentleman who follows in the office with Dr. Price. Has a known history of CAD with prior bypass surgery, ischemic cardio myopathy with severe LV systolic function with an ejection fraction of 20-25% in the past with echocardiogram this admission showing an ejection fraction of 30- 35% with mild A-moderate TR. Also has a history of atrial fibrillation, hypertension and dyslipidemia. Presented complaining of progressively worsening shortness of breath for the last several days as well as orthopnea and PND. NT proBNP was elevated at 5340. He's been on oral Lasix 40 mg 2 times a day. Also felt to have acute exacerbation of COPD. And is currently on IV Solu-Medrol. Overall he feels his breathing has improved some and he is less congested. He's had no complaints of lower extremity edema. Had no chest discomfort, palpitations, dizziness or syncope. 03/31/2023 The patient was seen and examined sitting up in the bed. He said for the most part his breathing is feeling a bit better today. Continues to be followed by pulmonary for exacerbation of COPD. He is tolerating the Farxiga. Labs today showed a BUN of 54 and creatinine 1.43. 04/01/2023 Patient examined this morning at the bedside. Patient denies chest pain or pressure. He reports mild shortness of breath. He is receiving IV steroids. He is awaiting his breathing treatment this morning. Vital signs are stable. PHYSICAL EXAM: VITAL SIGNS: Reviewed. GENERAL: Well-developed in no acute distress. NECK: Supple. No JVD or thyromegaly LUNGS: Respirations even and unlabored. Lungs with rhonchi and expiratory wheezing noted HEART: Irregular rate and rhythm. S1 and S2 heard. EXTREMITIES: Normal range of motion. No clubbing or cyanosis. Peripheral pulses intact. No lower extremity edema ASSESSMENT: #1 Acute on chronic heart failure with reduced ejection fraction, improved #2 acute exacerbation of COPD #3 CAD with prior CABG #4 chronic persistent atrial fibrillation #5 hypertension #6 hyperlipidemia #7 diabetes PLAN: Continue current cardiac medications Continue IV steroids for COPD exacerbation Patient is currently stable from a cardiac perspective with no further inpatient recommendations We will sign off. Please reconsult if needed. Nurse practitioner note has been reviewed by physician. Signing provider agrees with the documented findings, assessment, and plan of care. Objective - Vital Signs Vital signs: Vital Signs Temp 97.6 F 04/01/23 07:20 Pulse 73 04/01/23 07:20 Resp 16 04/01/23 07:20 BP 108/72 04/01/23 07:20 Pulse Ox 95 04/01/23 07:20 FiO2 Intake & Output 03/31/23 04/01/23 04/01/23 18:59 06:59 18:59 Output Total 300 Balance -300 Output: Urine 300 Other: Voiding Method Toilet Urinal # Voids 5 900 # Bowel Movements 1 1 - Labs CBC & Chem 7: 04/01/23 06:59 04/01/23 06:59 Labs: Abnormal Lab Results - Last 24 Hours (Table) 03/30/23 03/31/23 03/31/23 Range/Units 04:03 11:15 16:31 WBC (3.8-10.6) k/uL RBC (4.30-5.90) m/uL Neutrophils # (1.3-7.7) k/uL Lymphocytes # (1.0-4.8) k/uL Sodium (137-145) mmol/L BUN (9-20) mg/dL Creatinine (0.66-1.25) mg/dL Glucose (74-99) mg/dL POC Glucose (mg/dL) 324 H 223 H (70-110) mg/dL Hemoglobin A1c 7.2 H % Total Protein (6.3-8.2) g/dL Albumin (3.5-5.0) g/dL 03/31/23 04/01/23 04/01/23 Range/Units 20:37 06:23 06:59 WBC 12.1 H (3.8-10.6) k/uL RBC 4.16 L (4.30-5.90) m/uL Neutrophils # 11.5 H (1.3-7.7) k/uL Lymphocytes # 0.3 L (1.0-4.8) k/uL Sodium (137-145) mmol/L BUN (9-20) mg/dL Creatinine (0.66-1.25) mg/dL Glucose (74-99) mg/dL POC Glucose (mg/dL) 316 H 284 H (70-110) mg/dL Hemoglobin A1c % Total Protein (6.3-8.2) g/dL Albumin (3.5-5.0) g/dL 04/01/23 Range/Units 06:59 WBC (3.8-10.6) k/uL RBC (4.30-5.90) m/uL Neutrophils # (1.3-7.7) k/uL Lymphocytes # (1.0-4.8) k/uL Sodium 135 L (137-145) mmol/L BUN 63 H (9-20) mg/dL Creatinine 1.40 H (0.66-1.25) mg/dL Glucose 278 H (74-99) mg/dL POC Glucose (mg/dL) (70-110) mg/dL Hemoglobin A1c % Total Protein 5.8 L (6.3-8.2) g/dL Albumin 3.2 L (3.5-5.0) g/dL Microbiology - Last 24 Hours (Table) 03/31/23 01:40 Gram Stain - Preliminary Sputum
[2023-04-01] MEDS: guaiFENesin-DM 600/30MG 1 EACH TAB.ER.12H PO SCH ×2 (11:05→21:27)
[2023-04-01 11:11] LABS: Glucose,Whole Blood 353 mg/dL (70-110)
[2023-04-01] MEDS: GABAPENTIN 400 MG CAP PO SCH ×3 (14:00→21:26)
--- NOTE | 2023-04-01 14:00 | P.PN ---
Subjective Progress Note Date: 04/01/23 77-year-old male patient came into the hospital yesterday because of worsening shortness of breath. He felt that the breathing was progressively getting worse over the past 2 days. He had increased cough and congestion and some little bit of chest discomfort. No pressure. No angina. No radiation to his neck or back. No pleurisy. No hemoptysis. No reported fever or chills. He decided to come into the hospital on the chest x-ray showed 30 megaly with some mild pulmonary vessel congestion. His proBNP level was 5340. His echoes at 16.3 with a hemoglobin of 14 and a platelet count of 145. He has chronic kidney disease and the patient's creatinine is at 1.5 with a BUN of 32 and his sodium level is at 135. The patient is currently on room air oxygen. The patient's is hemodynamically stable. He has had previous admissions for CHF exacerbation, most recent hospitalization was in December 2022 and the patient states that he was taking his medications and he has been very compliant without any interruptions. He is known to have coronary artery disease with his bypass surgery and pre vious coronary intervention, is known to have atrial fibrillation, chronic stage III kidney disease, COPD, previous history of CVA, diabetes mellitus type 2, gallstone pancreatitis and his previous echocardiogram that was done on 12/26/2021 showed a severe cardiomyopathy with an ejection fraction of 20-25% and mild concentric LVH and moderate aortic stenosis will also present and the patient moderate degree of pulmonary hypertension with a PA pressures of 54. Most recent CAT scan of the chest that was done on 12/25/2022 showed cardiomegaly, generalized anasarca and small right-sided pleural effusion and interstitial edema. On 03.30, the patient is doing well. Much improved since yesterday as the patient was being treated for CHF/COPD exacerbation. The patient on nebulizer treatments with albuterol and IV Solu-Medrol and patient is also on oral Lasix 40 mg twice a day. He is currently on room air oxygen. No chest pain. BUN is at 43 with a creatinine of 1.2. Potassium levels at 3.7 and a sodium level is at 134. No chest pain. No altered mentation. Chest x-ray from admission was noted. On 03/31/2023, the patient is stable on room air oxygen. Still having some chest congestion. He had an episode of mucous production and possible plugging received chest PT. Remains on Symbicort. Remains on amiodarone about treatments [id number]. Remains on IV Solu-Medrol. Lasix has been switched to oral 40 mg by mouth twice a day. Patient was able to give a sputum sample. No new labs are available from today. The patient is seen today 04/01/2023 in follow-up on the regular medical floor. He is currently resting comfortably in bed. Awake and alert in no acute dis tress. Maintaining O2 saturations in the 90s on room air. He's afebrile. Hemodynamically stable. Sputum culture pending. White count 12.1. Hemoglobin 13.6. Sodium 135. Potassium 4.3. BUN 63. Creatinine 1.40. Glucose 278. He is continued on albuterol, Symbicort, IV Solu-Medrol. Anticoagulated with Eliquis. Remains on oral diuretics. Objective - Vital Signs Vital signs: Vital Signs Temp 97.6 F 04/01/23 07:20 Pulse 73 04/01/23 07:20 Resp 16 04/01/23 07:20 BP 108/72 04/01/23 07:20 Pulse Ox 95 04/01/23 07:20 FiO2 Intake & Output 03/31/23 04/01/23 04/01/23 18:59 06:59 18:59 Output Total 300 925 Balance -300 -925 Output: Urine 300 925 Other: Voiding Method Toilet Urinal # Voids 5 900 # Bowel Movements 1 1 - Exam GENERAL EXAM: Alert, pleasant 77-year-old male, resting comfortably in bed, on room air, comfortable in no apparent distress. HEAD: Normocephalic. EYES: Normal reaction of pupils, equal size. NOSE: Clear with pink turbinates. THROAT: No erythema or exudates. NECK: No masses, no JVD. CHEST: No chest wall deformity. LUNGS: Equal air entry with bilateral end expiratory wheeze, few scattered rhonchi. CVS: S1 and S2 normal with no audible murmur, regular rhythm. ABDOMEN: No hepatosplenomegaly, normal bowel sounds, no guarding or rigidity. SPINE: No scoliosis or deformity SKIN: No rashes CENTRAL NERVOUS SYSTEM: No focal deficits, tone is normal in all 4 extremities. EXTREMITIES: There is changes of chronic venous stasis with peripheral edema. No clubbing, no cyanosis. Peripheral pulses are intact. - Labs CBC & Chem 7: 04/01/23 06:59 04/01/23 06:59 Labs: Abnormal Lab Results - Last 24 Hours (Table) 03/31/23 03/31/23 04/01/23 Range/Units 16:31 20:37 06:23 WBC (3.8-10.6) k/uL RBC (4.30-5.90) m/uL Neutrophils # (1.3-7.7) k/uL Lymphocytes # (1.0-4.8) k/uL Sodium (137-145) mmol/L BUN (9-20) mg/dL Creatinine (0.66-1.25) mg/dL Glucose (74-99) mg/dL POC Glucose (mg/dL) 223 H 316 H 284 H (70-110) mg/dL Total Protein (6.3-8.2) g/dL Albumin (3.5-5.0) g/dL 04/01/23 04/01/23 04/01/23 Range/Units 06:59 06:59 11:10 WBC 12.1 H (3.8-10.6) k/uL RBC 4.16 L (4.30-5.90) m/uL Neutrophils # 11.5 H (1.3-7.7) k/uL Lymphocytes # 0.3 L (1.0-4.8) k/uL Sodium 135 L (137-145) mmol/L BUN 63 H (9-20) mg/dL Creatinine 1.40 H (0.66-1.25) mg/dL Glucose 278 H (74-99) mg/dL POC Glucose (mg/dL) 353 H (70-110) mg/dL Total Protein 5.8 L (6.3-8.2) g/dL Albumin 3.2 L (3.5-5.0) g/dL Microbiology - Last 24 Hours (Table) 03/31/23 01:40 Gram Stain - Preliminary Sputum Assessment and Plan Assessment: Acute on chronic shortness of breath, related to fluid overload/CHF. Patient may also have a component of COPD exacerbation as the patient's of cough and congestion. Nevertheless, there is clearly a component of CHF with elevated proBNP level and increased vessel markings and the patient is currently on oral Lasix Acute exacerbation of chronic systolic heart failure and ejection fraction of 20-25% Moderate degree of aortic stenosis and severe pulmonary hypertension as noted on a previous echocardiogram that was done in December 2022 Chronic stage III kidney disease, creatinine is stable for now COPD the patient is a chronic ex-smoker coronary artery disease with previous bypass surgery and previous coronary intervention and stenting Hypothyroidism Hyperlipidemia chronic atrial fibrillation. The patient is currently on long-term and coagulation with Eliquis. History of gallstone pancreatitis Plan: The patient was seen and evaluated Labs and medications reviewed Add Mucinex Add flutter valve Continue the current medications We will continue to follow I have personally seen and examined the patient, performed the documentation and the assessment and plan as written. Number of minutes spent on the visit: 10.
[2023-04-01] MEDS: NYSTATIN 100,000 UNIT/ML SUSP 500,000 UNIT/5 ML CUP PO SCH ×3 (14:35→23:49)
[2023-04-01 17:00] LABS: Glucose,Whole Blood 317 mg/dL (70-110)
--- NOTE | 2023-04-01 17:38 | P.PN ---
Subjective Progress Note Date: 04/01/23 Patrick Banuelos is a 77-year-old male patient who presents to the ER with concerns of increased shortness of breath that has been occurring over the past few days. Patient has a past medical history of CHF, COPD, atrial fibrillation, asthma, COPD, diabetes mellitus, hypertension, [place], pneumonia, coronary artery bypass Surgery and ex-smoker. Patient denies any recent illness or increased edema to lower extremities. Chest x-ray completed showing cardiomegaly and mild pulmonary vascular congestion. BNP 5340. Creatinine 1.51 bun 32 this does appear patient's baseline. Patient was given IV Lasix. Cardiology and pulmonary services also consulted. Upon exam patient noted to have increased wheezing upon expiration patient started on IV steroids. Patient does report improvement with shortness of breath from admission. Current vital signs temp 97.7, heart rate 60. 17, blood pressure 105/64 with pulse ox 94% on room air On 03/30/2023 patient was seen and examined on the telemetry floor he is alert and oriented 3 in no apparent distress he is still complaining of shortness of breath with any activity otherwise he denies any complaints there is no fever or chills no headache or dizziness no chest pain, he has occasional cough no nausea or vomiting no abdominal pain no diarrhea and no urinary symptoms On 03/31/2023 patient alert and oriented 3. Patient remains on IV Solu-Medrol and IV Lasix. Patient reports some improvement shortness breath. Pulmonary cardiology services are following. Current vital signs temp 97.6, heart rate 78, respiratory 18, blood pressure 118/73 with pulse ox 94% on room air. On 04/01/2023 patient was seen and examined on the telemetry floor he is alert and oriented 3 in no apparent distress he reports some improvement in his shortness of breath he is still complaining of cough and wheezing otherwise he denies any complaints at this there is no fever or chills no headache or dizziness no chest pain no nausea or vomiting no abdominal pain no diarrhea no blood in the stools no burning with urination no frequency or urgency and no hematuria. Mucinex was added today by pulmonary. Patient also has evidence of oral candidiasis, nystatin mouthwash was added to his medication regimen. We will recheck labs and follow in a.m. Objective - Vital Signs Vital signs: Vital Signs Temp 97.6 F 04/01/23 07:20 Pulse 73 04/01/23 07:20 Resp 16 04/01/23 07:20 BP 108/72 04/01/23 07:20 Pulse Ox 95 04/01/23 07:20 FiO2 Intake & Output 03/31/23 04/01/23 04/01/23 18:59 06:59 18:59 Output Total 300 925 Balance -300 -925 Output: Urine 300 925 Other: Voiding Method Toilet Urinal # Voids 5 900 # Bowel Movements 1 1 - Exam In general patient is alert and oriented x 3 in no distress HEENT head normocephalic and atraumatic Neck is supple no JVD no goiter no lymphadenopathy no carotid bruit Chest examination is clear to auscultation no crackles no wheezing Cardiac exam reveals regular heart sounds S1 and S2 no gallops no murmurs Abdomen is soft nontender no organomegaly with normal bowel sounds Extremity exam reveals no edema no cyanosis or clubbing Neurological examination reveals no gross focal deficits - Labs CBC & Chem 7: 04/01/23 06:59 04/01/23 06:59 Labs: Abnormal Lab Results - Last 24 Hours (Table) 03/31/23 03/31/23 04/01/23 Range/Units 16:31 20:37 06:23 WBC (3.8-10.6) k/uL RBC (4.30-5.90) m/uL Neutrophils # (1.3-7.7) k/uL Lymphocytes # (1.0-4.8) k/uL Sodium (137-145) mmol/L BUN (9-20) mg/dL Creatinine (0.66-1.25) mg/dL Glucose (74-99) mg/dL POC Glucose (mg/dL) 223 H 316 H 284 H (70-110) mg/dL Total Protein (6.3-8.2) g/dL Albumin (3.5-5.0) g/dL 04/01/23 04/01/23 04/01/23 Range/Units 06:59 06:59 11:10 WBC 12.1 H (3.8-10.6) k/uL RBC 4.16 L (4.30-5.90) m/uL Neutrophils # 11.5 H (1.3-7.7) k/uL Lymphocytes # 0.3 L (1.0-4.8) k/uL Sodium 135 L (137-145) mmol/L BUN 63 H (9-20) mg/dL Creatinine 1.40 H (0.66-1.25) mg/dL Glucose 278 H (74-99) mg/dL POC Glucose (mg/dL) 353 H (70-110) mg/dL Total Protein 5.8 L (6.3-8.2) g/dL Albumin 3.2 L (3.5-5.0) g/dL Microbiology - Last 24 Hours (Table) 03/31/23 01:40 Gram Stain - Preliminary Sputum Assessment and Plan Assessment: 1. Dyspnea secondary to CHF and COPD exacerbation 2. History of chronic systolic congestive heart failure 3. History of COPD 4. Chronic kidney disease 6. History of ischemic cardiomyopathy 7. History of chronic persistent atrial fibrillation maintained on eliquis 8. History of coronary artery disease 9. History of aortic stenosis and mitral regurg with pulmonary hypertension 10. History of essential hypertension 11. History of hyperlipidemia 12. History of diabetes mellitus DVT prophylaxis eliquis. GI prophylaxis Protonix Cardiology and pulmonary service is consulted Maintained on IV Lasix Patient started on IV steroids 2-D echocardiogram ordered Repeat labs ordered
[2023-04-01 21:00] LABS: Glucose,Whole Blood 372 mg/dL (70-110)
[2023-04-01] MEDS: ATORVASTATIN 40 MG TAB PO SCH (21:27)
[2023-04-01] MEDS: SODIUM CHLORIDE 0.9% 1,000 ML IV SCH (23:50)
[2023-04-02 05:50] LABS: Glucose,Whole Blood 295 mg/dL (70-110)
[2023-04-02] MEDS: carvediloL 6.25 MG TAB PO SCH ×2 (06:29→17:37)
[2023-04-02] MEDS: INSULIN ASPART (NovoLOG) 100 UNIT/ML VIAL SQ SCH ×4 (06:29→21:37)
[2023-04-02] MEDS: LEVOTHYROXINE 112 MCG TAB PO SCH (06:29)
[2023-04-02] MEDS: PANTOPRAZOLE 40 MG TABLET PO SCH (06:29)
[2023-04-02] MEDS: LEVOTHYROXINE 125 MCG TAB PO SCH (06:29)
[2023-04-02] MEDS: SYMBICORT 80-4.5 MCG INHALER INHALATION SCH ×2 (08:06→21:49)
[2023-04-02 08:11] LABS: Basophils % (A) 0 %; Eosinophils % (A) 0 %; HCT 41.6 % (39.0-53.0); HGB 13.6 gm/dL (13.0-17.5); Lymphocytes # (A) 0.4 k/uL (1.0-4.8); Lymphocytes % (A) 3 %; MCH 31.7 pg (25.0-35.0); MCHC 32.6 g/dL (31.0-37.0); MCV 97.2 fL (80.0-100.0); Mean Platelet Volume 7.9; Monocytes # (A) 0.2 k/uL (0-1.0); Monocytes % (A) 2 %; Neutrophils # (A) 11.8 k/uL (1.3-7.7); Neutrophils % (A) 94 %; Platelet Count 121 k/uL (150-450); Poikilocytosis Slight; RBC 4.27 m/uL (4.30-5.90); RDW 15.3 % (11.5-15.5); WBC 12.5 k/uL (3.8-10.6)
[2023-04-02] MEDS: guaiFENesin-DM 600/30MG 1 EACH TAB.ER.12H PO SCH ×2 (08:38→20:30)
[2023-04-02] MEDS: methylPREDNISolone SOD SUCCI 40 MG/ML 1 ML VIAL IV SCH ×3 (08:38→23:34)
[2023-04-02] MEDS: APIXABAN 5 MG TAB PO SCH ×2 (08:38→20:31)
[2023-04-02] MEDS: FUROSEMIDE 40 MG TAB PO SCH ×2 (08:38→20:31)
[2023-04-02] MEDS: NYSTATIN 100,000 UNIT/ML SUSP 500,000 UNIT/5 ML CUP PO SCH ×4 (08:39→20:30)
[2023-04-02 08:40] LABS: ALT 15 U/L (4-49); AST 16 U/L (17-59); African American GFR (CKD) 58 (>60 ml/min/1.73 sqM); Albumin 3.1 g/dL (3.5-5.0); Albumin/Globulin Ratio 1.3; Alkaline Phosphatase 54 U/L (38-126); Anion Gap 9 mmol/L; Blood Urea Nitrogen 62 mg/dL (9-20); Calcium 8.7 mg/dL (8.4-10.2); Carbon Dioxide 27 mmol/L (22-30); Chloride 101 mmol/L (98-107); Globulin 2.4 g/dL; Glucose 245 mg/dL (74-99); Non-African American GFR(CKD) 50 (>60 ml/min/1.73 sqM); Potassium 3.8 mmol/L (3.5-5.1); Sodium 137 mmol/L (137-145); Total Bilirubin 0.7 mg/dL (0.2-1.3); Total Protein 5.5 g/dL (6.3-8.2)
[2023-04-02] MEDS: allopurinoL 300 MG TAB PO SCH (08:46)
[2023-04-02] MEDS: GLIMEPIRIDE 2 MG TAB PO SCH ×2 (09:42→21:38)
[2023-04-02 12:15] LABS: Glucose,Whole Blood 284 mg/dL (70-110)
--- NOTE | 2023-04-02 12:43 | P.PN ---
Subjective Progress Note Date: 04/02/23 77-year-old male patient came into the hospital yesterday because of worsening shortness of breath. He felt that the breathing was progressively getting worse over the past 2 days. He had increased cough and congestion and some little bit of chest discomfort. No pressure. No angina. No radiation to his neck or back. No pleurisy. No hemoptysis. No reported fever or chills. He decided to come into the hospital on the chest x-ray showed 30 megaly with some mild pulmonary vessel congestion. His proBNP level was 5340. His echoes at 16.3 with a hemoglobin of 14 and a platelet count of 145. He has chronic kidney disease and the patient's creatinine is at 1.5 with a BUN of 32 and his sodium level is at 135. The patient is currently on room air oxygen. The patient's is hemodynamically stable. He has had previous admissions for CHF exacerbation, most recent hospitalization was in December 2022 and the patient states that he was taking his medications and he has been very compliant without any interruptions. He is known to have coronary artery disease with his bypass surgery and pre vious coronary intervention, is known to have atrial fibrillation, chronic stage III kidney disease, COPD, previous history of CVA, diabetes mellitus type 2, gallstone pancreatitis and his previous echocardiogram that was done on 12/26/2021 showed a severe cardiomyopathy with an ejection fraction of 20-25% and mild concentric LVH and moderate aortic stenosis will also present and the patient moderate degree of pulmonary hypertension with a PA pressures of 54. Most recent CAT scan of the chest that was done on 12/25/2022 showed cardiomegaly, generalized anasarca and small right-sided pleural effusion and interstitial edema. On 03.30, the patient is doing well. Much improved since yesterday as the patient was being treated for CHF/COPD exacerbation. The patient on nebulizer treatments with albuterol and IV Solu-Medrol and patient is also on oral Lasix 40 mg twice a day. He is currently on room air oxygen. No chest pain. BUN is at 43 with a creatinine of 1.2. Potassium levels at 3.7 and a sodium level is at 134. No chest pain. No altered mentation. Chest x-ray from admission was noted. On 03/31/2023, the patient is stable on room air oxygen. Still having some chest congestion. He had an episode of mucous production and possible plugging received chest PT. Remains on Symbicort. Remains on amiodarone about treatments [id number]. Remains on IV Solu-Medrol. Lasix has been switched to oral 40 mg by mouth twice a day. Patient was able to give a sputum sample. No new labs are available from today. The patient is seen today 04/01/2023 in follow-up on the regular medical floor. He is currently resting comfortably in bed. Awake and alert in no acute dis tress. Maintaining O2 saturations in the 90s on room air. He's afebrile. Hemodynamically stable. Sputum culture pending. White count 12.1. Hemoglobin 13.6. Sodium 135. Potassium 4.3. BUN 63. Creatinine 1.40. Glucose 278. He is continued on albuterol, Symbicort, IV Solu-Medrol. Anticoagulated with Eliquis. Remains on oral diuretics. The patient is seen today 04/02/2023 in follow-up on the regular medical floor. He sitting up in bed. Awake and alert in no acute distress. Still stating he is not feeling back to his baseline. He is maintaining good O2 saturations in the 90s on room air. He's been afebrile. Hemodynamically stable. Sputum culture revealed no growth. White count 12.5. Hemoglobin 13.6. Platelets 121. Sodium 137. Potassium 3.8. Bicarb 27. BUN 62. Creatinine 1.35. Glucose 245. He is continued on Symbicort, albuterol, IV Solu-Medrol. Remains on Muci nex. Oral diuretics. Normal saline at [facility]. Anticoagulated with Eliquis. Objective - Vital Signs Vital signs: Vital Signs Temp 97.8 F 04/02/23 08:00 Pulse 89 04/02/23 08:00 Resp 16 04/02/23 08:00 BP 122/79 04/02/23 08:00 Pulse Ox 93 L 04/02/23 08:00 FiO2 Intake & Output 04/01/23 04/02/23 04/02/23 18:59 06:59 18:59 Intake Total 240 Output Total 925 1200 Balance -925 -1200 240 Weight 101.4 kg Intake: Oral 240 Output: Urine 925 1200 Other: Voiding Method Toilet Toilet Urinal Urinal # Voids 3 # Bowel Movements 1 - Exam GENERAL EXAM: Alert, obese 77-year-old male, on room air, comfortable in no ap parent distress. HEAD: Normocephalic. EYES: Normal reaction of pupils, equal size. NOSE: Clear with pink turbinates. THROAT: No erythema or exudates. NECK: No masses, no JVD. CHEST: No chest wall deformity. LUNGS: Equal air entry with bilateral end expiratory wheeze, diminished. CVS: S1 and S2 normal with no audible murmur, regular rhythm. ABDOMEN: No hepatosplenomegaly, normal bowel sounds, no guarding or rigidity. SPINE: No scoliosis or deformity SKIN: No rashes CENTRAL NERVOUS SYSTEM: No focal deficits, tone is normal in all 4 extremities. EXTREMITIES: There is changes of chronic venous stasis with peripheral edema. No clubbing, no cyanosis. Peripheral pulses are intact. - Labs CBC & Chem 7: 04/02/23 07:35 04/02/23 07:35 Labs: Abnormal Lab Results - Last 24 Hours (Table) 04/01/23 04/01/23 04/02/23 Range/Units 16:59 20:56 05:48 WBC (3.8-10.6) k/uL RBC (4.30-5.90) m/uL Plt Count (150-450) k/uL Neutrophils # (1.3-7.7) k/uL Lymphocytes # (1.0-4.8) k/uL BUN (9-20) mg/dL Creatinine (0.66-1.25) mg/dL Glucose (74-99) mg/dL POC Glucose (mg/dL) 317 H 372 H 295 H (70-110) mg/dL AST (17-59) U/L Total Protein (6.3-8.2) g/dL Albumin (3.5-5.0) g/dL 04/02/23 04/02/23 04/02/23 Range/Units 07:35 07:35 12:14 WBC 12.5 H (3.8-10.6) k/uL RBC 4.27 L (4.30-5.90) m/uL Plt Count 121 L (150-450) k/uL Neutrophils # 11.8 H (1.3-7.7) k/uL Lymphocytes # 0.4 L (1.0-4.8) k/uL BUN 62 H (9-20) mg/dL Creatinine 1.35 H (0.66-1.25) mg/dL Glucose 245 H (74-99) mg/dL POC Glucose (mg/dL) 284 H (70-110) mg/dL AST 16 L (17-59) U/L Total Protein 5.5 L (6.3-8.2) g/dL Albumin 3.1 L (3.5-5.0) g/dL Microbiology - Last 24 Hours (Table) 03/31/23 01:40 Gram Stain - Final Sputum Sputum Culture - Final Assessment and Plan Assessment: Acute on chronic shortness of breath, related to fluid overload/CHF. Patient may also have a component of COPD exacerbation as the patient's of cough and congestion. Nevertheless, there is clearly a component of CHF with elevated proBNP level and increased vessel markings and the patient is currently on oral Lasix Acute exacerbation of chronic systolic heart failure and ejection fraction of 20-25% Moderate degree of aortic stenosis and severe pulmonary hypertension as noted on a previous echocardiogram that was done in December 2022 Chronic stage III kidney disease, creatinine is stable for now COPD the patient is a chronic ex-smoker coronary artery disease with previous bypass surgery and previous coronary intervention and stenting Hypothyroidism Hyperlipidemia chronic atrial fibrillation. The patient is currently on long-term and coagulation with Eliquis. History of gallstone pancreatitis Plan: The patient was seen and evaluated Labs and medications reviewed Continue the current medications Currently stable and on room air Increase his activity as tolerated Probable discharge in the a.m. We will continue to follow I have personally seen and examined the patient, performed the documentation and the assessment and plan as written. Number of minutes spent on the visit: 10.
[2023-04-02] MEDS: GABAPENTIN 400 MG CAP PO SCH ×3 (14:13→21:38)
--- NOTE | 2023-04-02 17:04 | P.PN ---
Subjective Progress Note Date: 04/02/23 Patrick Banuelos is a 77-year-old male patient who presents to the ER with concerns of increased shortness of breath that has been occurring over the past few days. Patient has a past medical history of CHF, COPD, atrial fibrillation, asthma, COPD, diabetes mellitus, hypertension, [place], pneumonia, coronary artery bypass Surgery and ex-smoker. Patient denies any recent illness or increased edema to lower extremities. Chest x-ray completed showing cardiomegaly and mild pulmonary vascular congestion. BNP 5340. Creatinine 1.51 bun 32 this does appear patient's baseline. Patient was given IV Lasix. Cardiology and pulmonary services also consulted. Upon exam patient noted to have increased wheezing upon expiration patient started on IV steroids. Patient does report improvement with shortness of breath from admission. Current vital signs temp 97.7, heart rate 60. 17, blood pressure 105/64 with pulse ox 94% on room air On 03/30/2023 patient was seen and examined on the telemetry floor he is alert and oriented 3 in no apparent distress he is still complaining of shortness of breath with any activity otherwise he denies any complaints there is no fever or chills no headache or dizziness no chest pain, he has occasional cough no nausea or vomiting no abdominal pain no diarrhea and no urinary symptoms On 03/31/2023 patient alert and oriented 3. Patient remains on IV Solu-Medrol and IV Lasix. Patient reports some improvement shortness breath. Pulmonary cardiology services are following. Current vital signs temp 97.6, heart rate 78, respiratory 18, blood pressure 118/73 with pulse ox 94% on room air. On 04/01/2023 patient was seen and examined on the telemetry floor he is alert and oriented 3 in no apparent distress he reports some improvement in his shortness of breath he is still complaining of cough and wheezing otherwise he denies any complaints at this there is no fever or chills no headache or dizziness no chest pain no nausea or vomiting no abdominal pain no diarrhea no blood in the stools no burning with urination no frequency or urgency and no hematuria. Mucinex was added today by pulmonary. Patient also has evidence of oral candidiasis, nystatin mouthwash was added to his medication regimen. We will recheck labs and follow in a.m. 04/02/2023 patient was seen and examined on the medical floor he is alert and oriented 3 in no apparent distress he is still complaining of cough and shortness of breath otherwise he denies any complaints there is no fever or chills no headache or dizziness no chest pain no nausea or vomiting no abdominal pain no diarrhea no blood in the stools no burning with urination no frequency or urgency and no hematuria. Objective - Vital Signs Vital signs: Vital Signs Temp 97.4 F L 04/02/23 14:00 Pulse 86 04/02/23 14:00 Resp 16 04/02/23 14:00 BP 123/75 04/02/23 14:00 Pulse Ox 94 L 04/02/23 14:00 FiO2 Intake & Output 04/01/23 04/02/23 04/02/23 18:59 06:59 18:59 Intake Total 461 Output Total 925 1200 325 Balance -925 -1200 136 Weight 101.4 kg Intake: Oral 461 Output: Urine 925 1200 325 Other: Voiding Method Toilet Toilet Urinal Urinal # Voids 3 1 # Bowel Movements 1 1 - Exam In general patient is alert and oriented x 3 in no distress HEENT head normocephalic and atraumatic Neck is supple no JVD no goiter no lymphadenopathy no carotid bruit Chest examination is clear to auscultation no crackles no wheezing Cardiac exam reveals regular heart sounds S1 and S2 no gallops no murmurs Abdomen is soft nontender no organomegaly with normal bowel sounds Extremity exam reveals no edema no cyanosis or clubbing Neurological examination reveals no gross focal deficits - Labs CBC & Chem 7: 04/02/23 07:35 04/02/23 07:35 Labs: Abnormal Lab Results - Last 24 Hours (Table) 04/01/23 04/01/23 04/02/23 Range/Units 16:59 20:56 05:48 WBC (3.8-10.6) k/uL RBC (4.30-5.90) m/uL Plt Count (150-450) k/uL Neutrophils # (1.3-7.7) k/uL Lymphocytes # (1.0-4.8) k/uL BUN (9-20) mg/dL Creatinine (0.66-1.25) mg/dL Glucose (74-99) mg/dL POC Glucose (mg/dL) 317 H 372 H 295 H (70-110) mg/dL AST (17-59) U/L Total Protein (6.3-8.2) g/dL Albumin (3.5-5.0) g/dL 04/02/23 04/02/23 04/02/23 Range/Units 07:35 07:35 12:14 WBC 12.5 H (3.8-10.6) k/uL RBC 4.27 L (4.30-5.90) m/uL Plt Count 121 L (150-450) k/uL Neutrophils # 11.8 H (1.3-7.7) k/uL Lymphocytes # 0.4 L (1.0-4.8) k/uL BUN 62 H (9-20) mg/dL Creatinine 1.35 H (0.66-1.25) mg/dL Glucose 245 H (74-99) mg/dL POC Glucose (mg/dL) 284 H (70-110) mg/dL AST 16 L (17-59) U/L Total Protein 5.5 L (6.3-8.2) g/dL Albumin 3.1 L (3.5-5.0) g/dL Microbiology - Last 24 Hours (Table) 03/31/23 01:40 Gram Stain - Final Sputum Sputum Culture - Final Assessment and Plan Assessment: 1. Dyspnea secondary to CHF and COPD exacerbation 2. History of chronic systolic congestive heart failure 3. History of COPD 4. Chronic kidney disease 6. History of ischemic cardiomyopathy 7. History of chronic persistent atrial fibrillation maintained on eliquis 8. History of coronary artery disease 9. History of aortic stenosis and mitral regurg with pulmonary hypertension 10. History of essential hypertension 11. History of hyperlipidemia 12. History of diabetes mellitus DVT prophylaxis eliquis. GI prophylaxis Protonix Cardiology and pulmonary service is consulted Maintained on IV Lasix Patient started on IV steroids 2-D echocardiogram ordered Repeat labs ordered
[2023-04-02 17:06] LABS: Glucose,Whole Blood 382 mg/dL (70-110)
[2023-04-02] MEDS: ATORVASTATIN 40 MG TAB PO SCH (20:31)
[2023-04-02 21:11] LABS: Glucose,Whole Blood 438 mg/dL (70-110)
[2023-04-02] MEDS ORDERED: INSULIN ASPART (NovoLOG) 100 UNIT/ML VIAL SQ ONE (21:45)
[2023-04-02] MEDS: SODIUM CHLORIDE 0.9% 1,000 ML IV SCH (23:13)
[2023-04-03 06:19] LABS: Glucose,Whole Blood 242 mg/dL (70-110)
[2023-04-03] MEDS: INSULIN ASPART (NovoLOG) 100 UNIT/ML VIAL SQ SCH ×2 (06:22→13:25)
[2023-04-03] MEDS: LEVOTHYROXINE 112 MCG TAB PO SCH (06:23)
[2023-04-03] MEDS: PANTOPRAZOLE 40 MG TABLET PO SCH (06:23)
[2023-04-03] MEDS: LEVOTHYROXINE 125 MCG TAB PO SCH (06:23)
[2023-04-03] MEDS: carvediloL 6.25 MG TAB PO SCH (06:23)
[2023-04-03] MEDS: SYMBICORT 80-4.5 MCG INHALER INHALATION SCH (07:54)
[2023-04-03] MEDS: allopurinoL 300 MG TAB PO SCH (08:49)
[2023-04-03] MEDS: APIXABAN 5 MG TAB PO SCH (08:49)
[2023-04-03] MEDS: FUROSEMIDE 40 MG TAB PO SCH (08:49)
[2023-04-03] MEDS: GLIMEPIRIDE 2 MG TAB PO SCH (08:49)
[2023-04-03] MEDS: guaiFENesin-DM 600/30MG 1 EACH TAB.ER.12H PO SCH (08:50)
[2023-04-03] MEDS: NYSTATIN 100,000 UNIT/ML SUSP 500,000 UNIT/5 ML CUP PO SCH ×2 (08:50→13:26)
[2023-04-03] MEDS ORDERED: predniSONE 20 MG TAB PO SCH (09:00)
[2023-04-03] MEDS: methylPREDNISolone SOD SUCCI 40 MG/ML 1 ML VIAL IV SCH (09:28)
[2023-04-03] MEDS: ALBUTEROL NEBULIZED 2.5 MG/3 ML INHALATION PRN (09:47)
[2023-04-03 12:25] LABS: Glucose,Whole Blood 312 mg/dL (70-110)
--- NOTE | 2023-04-03 13:02 | P.PN ---
Subjective Progress Note Date: 04/03/23 77-year-old male patient came into the hospital yesterday because of worsening shortness of breath. He felt that the breathing was progressively getting worse over the past 2 days. He had increased cough and congestion and some little bit of chest discomfort. No pressure. No angina. No radiation to his neck or back. No pleurisy. No hemoptysis. No reported fever or chills. He decided to come into the hospital on the chest x-ray showed 30 megaly with some mild pulmonary vessel congestion. His proBNP level was 5340. His echoes at 16.3 with a hemoglobin of 14 and a platelet count of 145. He has chronic kidney disease and the patient's creatinine is at 1.5 with a BUN of 32 and his sodium level is at 135. The patient is currently on room air oxygen. The patient's is hemodynamically stable. He has had previous admissions for CHF exacerbation, most recent hospitalization was in December 2022 and the patient states that he was taking his medications and he has been very compliant without any interruptions. He is known to have coronary artery disease with his bypass surgery and pre vious coronary intervention, is known to have atrial fibrillation, chronic stage III kidney disease, COPD, previous history of CVA, diabetes mellitus type 2, gallstone pancreatitis and his previous echocardiogram that was done on 12/26/2021 showed a severe cardiomyopathy with an ejection fraction of 20-25% and mild concentric LVH and moderate aortic stenosis will also present and the patient moderate degree of pulmonary hypertension with a PA pressures of 54. Most recent CAT scan of the chest that was done on 12/25/2022 showed cardiomegaly, generalized anasarca and small right-sided pleural effusion and interstitial edema. On 03.30, the patient is doing well. Much improved since yesterday as the patient was being treated for CHF/COPD exacerbation. The patient on nebulizer treatments with albuterol and IV Solu-Medrol and patient is also on oral Lasix 40 mg twice a day. He is currently on room air oxygen. No chest pain. BUN is at 43 with a creatinine of 1.2. Potassium levels at 3.7 and a sodium level is at 134. No chest pain. No altered mentation. Chest x-ray from admission was noted. On 03/31/2023, the patient is stable on room air oxygen. Still having some chest congestion. He had an episode of mucous production and possible plugging received chest PT. Remains on Symbicort. Remains on amiodarone about treatments [id number]. Remains on IV Solu-Medrol. Lasix has been switched to oral 40 mg by mouth twice a day. Patient was able to give a sputum sample. No new labs are available from today. The patient is seen today 04/01/2023 in follow-up on the regular medical floor. He is currently resting comfortably in bed. Awake and alert in no acute dis tress. Maintaining O2 saturations in the 90s on room air. He's afebrile. Hemodynamically stable. Sputum culture pending. White count 12.1. Hemoglobin 13.6. Sodium 135. Potassium 4.3. BUN 63. Creatinine 1.40. Glucose 278. He is continued on albuterol, Symbicort, IV Solu-Medrol. Anticoagulated with Eliquis. Remains on oral diuretics. The patient is seen today 04/02/2023 in follow-up on the regular medical floor. He sitting up in bed. Awake and alert in no acute distress. Still stating he is not feeling back to his baseline. He is maintaining good O2 saturations in the 90s on room air. He's been afebrile. Hemodynamically stable. Sputum culture revealed no growth. White count 12.5. Hemoglobin 13.6. Platelets 121. Sodium 137. Potassium 3.8. Bicarb 27. BUN 62. Creatinine 1.35. Glucose 245. He is continued on Symbicort, albuterol, IV Solu-Medrol. Remains on Muci nex. Oral diuretics. Normal saline at [facility]. Anticoagulated with Eliquis. The patient is seen today 04/03/2023 in follow-up on the regular medical floor. He is currently awake and alert in no acute distress. Denies any worsening shortness of breath, cough or congestion. Maintaining good O2 saturations in the 90s on room air. He's been afebrile. Hemodynamically stable. Sputum culture revealed no growth. Glucose 242. He is continued on albuterol, Symbicort, IV Solu-Medrol. Remains on oral diuretics. Anticoagulated with Eliquis. Objective - Vital Signs Vital signs: Vital Signs Temp 97.7 F 04/03/23 08:00 Pulse 92 04/03/23 09:57 Resp 20 04/03/23 08:00 BP 120/82 04/03/23 08:00 Pulse Ox 93 L 04/03/23 08:00 FiO2 Intake & Output 04/02/23 04/03/23 04/03/23 18:59 06:59 18:59 Intake Total 682 240 Output Total 325 825 Balance 357 -825 240 Weight 102 kg Intake: Oral 682 240 Output: Urine 325 825 Other: Voiding Method Toilet Toilet Urinal Urinal # Voids 1 # Bowel Movements 1 1 - Exam GENERAL EXAM: Alert, obese 77-year-old male, resting in bed, on room air, comfortable in no apparent distress. HEAD: Normocephalic. EYES: Normal reaction of pupils, equal size. NOSE: Clear with pink turbinates. THROAT: No erythema or exudates. NECK: No masses, no JVD. CHEST: No chest wall deformity. LUNGS: Equal air entry with bilateral end expiratory wheeze, diminished. CVS: S1 and S2 normal with no audible murmur, regular rhythm. ABDOMEN: No hepatosplenomegaly, normal bowel sounds, no guarding or rigidity. SPINE: No scoliosis or deformity SKIN: No rashes CENTRAL NERVOUS SYSTEM: No focal deficits, tone is normal in all 4 extremities. EXTREMITIES: There is changes of chronic venous stasis with peripheral edema. No clubbing, no cyanosis. Peripheral pulses are intact. - Labs CBC & Chem 7: 04/02/23 07:35 04/02/23 07:35 Labs: Abnormal Lab Results - Last 24 Hours (Table) 04/02/23 04/02/23 04/03/23 Range/Units 17:05 21:09 06:18 POC Glucose (mg/dL) 382 H 438 H 242 H (70-110) mg/dL 04/03/23 Range/Units 12:22 POC Glucose (mg/dL) 312 H (70-110) mg/dL Assessment and Plan Assessment: Acute on chronic shortness of breath, related to fluid overload/CHF. Patient may also have a component of COPD exacerbation as the patient's of cough and congestion. Nevertheless, there is clearly a component of CHF with elevated proBNP level and increased vessel markings and the patient is currently on oral Lasix Acute exacerbation of chronic systolic heart failure and ejection fraction of 20-25% Moderate degree of aortic stenosis and severe pulmonary hypertension as noted on a previous echocardiogram that was done in December 2022 Chronic stage III kidney disease, creatinine is stable for now COPD the patient is a chronic ex-smoker coronary artery disease with previous bypass surgery and previous coronary intervention and stenting Hypothyroidism Hyperlipidemia chronic atrial fibrillation. The patient is currently on long-term and coagulation with Eliquis. History of gallstone pancreatitis Plan: The patient was seen and evaluated Labs and medications reviewed Currently stable and on room air Cleared for discharge from the pulmonary standpoint Continue his home pulmonary medications Complete prednisone taper starting at 40 mg daily for 4 days Follow-up in our office in 1 week I have personally seen and examined the patient, performed the documentation and the assessment and plan as written. Number of minutes spent on the visit: 10.
--- NOTE | 2023-04-03 13:50 | P.DS ---
Providers Date of admission: 04/01/23 13:24 Expected date of discharge: 04/03/23 Attending physician: Karoline Mg Consults: 03/28/23 23:07 Consult Physician Routine Consulting Provider: Shama Patterson Consult Reason/Comments: copd Do you want consulting provider notified?: Yes Primary care physician: Teresa Walter [facility] Course: Discharge diagnosis 1. Dyspnea secondary to CHF and COPD exacerbation 2. History of chronic systolic congestive heart failure 3. History of COPD 4. Chronic kidney disease 6. History of ischemic cardiomyopathy 7. History of chronic persistent atrial fibrillation maintained on eliquis 8. History of coronary artery disease 9. History of aortic stenosis and mitral regurg with pulmonary hypertension 10. History of essential hypertension 11. History of hyperlipidemia 12. History of diabetes mellitus Hospital course Patrick Banuelos is a 77-year-old male patient who presents to the ER with concerns of increased shortness of breath that has been occurring over the past few days. Patient has a past medical history of CHF, COPD, atrial fibrillation, asthma, COPD, diabetes mellitus, hypertension, [place], pneumonia, coronary artery bypass Surgery and ex-smoker. Patient denies any recent illness or increased edema to lower extremities. Chest x-ray completed showing cardiomegaly and mild pulmonary vascular congestion. BNP 5340. Creatinine 1.51 bun 32 this does appear patient's baseline. Patient was given IV Lasix. Cardiology and pulmonary services also consulted. Upon exam patient noted to have increased wheezing upon expiration patient started on IV steroids. Patient does report improvement with shortness of breath from admission. Current vital signs temp 97.7, heart rate 60. 17, blood pressure 105/64 with pulse ox 94% on room air On 03/30/2023 patient was seen and examined on the telemetry floor he is alert and oriented 3 in no apparent distress he is still complaining of shortness of breath with any activity otherwise he denies any complaints there is no fever or chills no headache or dizziness no chest pain, he has occasional cough no nausea or vomiting no abdominal pain no diarrhea and no urinary symptoms On 03/31/2023 patient alert and oriented 3. Patient remains on IV Solu-Medrol and IV Lasix. Patient reports some improvement shortness breath. Pulmonary cardiology services are following. Current vital signs temp 97.6, heart rate 78, respiratory 18, blood pressure 118/73 with pulse ox 94% on room air. On 04/01/2023 patient was seen and examined on the telemetry floor he is alert and oriented 3 in no apparent distress he reports some improvement in his shortness of breath he is still complaining of cough and wheezing otherwise he denies any complaints at this there is no fever or chills no headache or dizziness no chest pain no nausea or vomiting no abdominal pain no diarrhea no blood in the stools no burning with urination no frequency or urgency and no hematuria. Mucinex was added today by pulmonary. Patient also has evidence of oral candidiasis, nystatin mouthwash was added to his medication regimen. We will recheck labs and follow in a.m. 04/02/2023 patient was seen and examined on the medical floor he is alert and oriented 3 in no apparent distress he is still complaining of cough and shortness of breath otherwise he denies any complaints there is no fever or chills no headache or dizziness no chest pain no nausea or vomiting no abdominal pain no diarrhea no blood in the stools no burning with urination no frequency or urgency and no hematuria. On 04/03/2023 patient is alert and oriented 3. Discussed case with pulmonary team patient has been cleared for discharge from pulmonary standpoint will follow-up in one week patient will be DC'd on prednisone taper, increase dose of Lasix, Mucinex and nystatin. Patient follow-up with PCP for further management. Patient denies chest pain or shortness of breath. Patient denies nausea vomiting or diarrhea. Patient denies any urinary burning or frequency Patient Condition at Discharge: Stable Plan - Discharge Summary Discharge Rx Participant: No New Discharge Prescriptions: New Furosemide [Lasix] 40 mg PO Q12HR 30 Days #60 tab Nystatin 100,000 Unit/ml Susp [Mycostatin Oral Susp] 500,000 unit PO QID 4 Days #160 ml predniSONE [Deltasone] 40 mg PO DAILY #30 tab guaiFENesin-DM 600/30MG [Mucinex Dm] 2 each PO Q12HR 7 Days #14 tab Continue allopurinoL [Zyloprim] 300 mg PO DAILY Levothyroxine Sodium [Synthroid] 125 mcg PO DAILY Gabapentin 1,200 mg PO TID@1400,1800,2200 Levothyroxine Sodium [Synthroid] 112 mcg PO DAILY Nitroglycerin Sl Tabs [Nitrostat] 0.4 mg SL Q5M PRN PRN Reason: Chest Pain carvediloL [Coreg] 6.25 mg PO BID-W/MEALS Meclizine [Antivert] 12.5 mg PO TID PRN PRN Reason: Vertigo Magnesium Oxide [Mag-Ox] 400 mg PO BID Budesonide/Formoterol Fumarate [Symbicort 80-4.5 Mcg Inhaler] 2 puff INHALATION RT-BID Glimepiride [Amaryl] 2 mg PO BID Atorvastatin [Lipitor] 40 mg PO HS Apixaban [Eliquis] 5 mg PO BID HYDROcodone/APAP 7.5-325MG [[place] 7.5-325] 1 tab PO BID PRN PRN Reason: Pain Omeprazole 20 mg PO DAILY Albuterol Sulfate [Proventil Hfa] 1 puff INHALATION RT-Q6H PRN PRN Reason: Wheezing Discontinued Furosemide [Lasix] 20 mg PO BID@0900,1600 Discharge Medication List allopurinoL [Zyloprim] 300 mg PO DAILY 08/07/17 [History] Gabapentin 1,200 mg PO TID@1400,1800,2200 10/02/18 [History] Levothyroxine Sodium [Synthroid] 112 mcg PO DAILY 10/02/18 [History] Levothyroxine Sodium [Synthroid] 125 mcg PO DAILY 10/02/18 [History] Nitroglycerin Sl Tabs [Nitrostat] 0.4 mg SL Q5M PRN 10/02/18 [History] carvediloL [Coreg] 6.25 mg PO BID-W/MEALS 03/17/21 [History] Atorvastatin [Lipitor] 40 mg PO HS 10/19/21 [History] Apixaban [Eliquis] 5 mg PO BID 09/28/22 [History] Budesonide/Formoterol Fumarate [Symbicort 80-4.5 Mcg Inhaler] 2 puff INHALATION RT-BID 09/28/22 [History] HYDROcodone/APAP 7.5-325MG [[place] 7.5-325] 1 tab PO BID PRN 09/28/22 [History] Magnesium Oxide [Mag-Ox] 400 mg PO BID 09/28/22 [History] Meclizine [Antivert] 12.5 mg PO TID PRN 09/28/22 [History] Albuterol Sulfate [Proventil Hfa] 1 puff INHALATION RT-Q6H PRN 11/22/22 [History] Omeprazole 20 mg PO DAILY 11/22/22 [History] Glimepiride [Amaryl] 2 mg PO BID 03/29/23 [History] Furosemide [Lasix] 40 mg PO Q12HR 30 Days #60 tab 04/03/23 [Rx] Nystatin 100,000 Unit/ml Susp [Mycostatin Oral Susp] 500,000 unit PO QID 4 Days #160 ml 04/03/23 [Rx] guaiFENesin-DM 600/30MG [Mucinex Dm] 2 each PO Q12HR 7 Days #14 tab 04/03/23 [Rx] predniSONE [Deltasone] 40 mg PO DAILY #30 tab 04/03/23 [Rx] Follow up Appointment(s)/Referral(s): Teresa Walter MD [Primary Care Provider] - 1-2 days [facility], [NON-STAFF] - 1-2 Days Jr Arvizu DO [Doctor of Osteopathic Medicine] - 1 Week Discharge Disposition: HOME SELF-CARE
[2023-04-03 14:57] VITALS: BP 105/69; PULSE 94; RESP 16; TEMP 97.5
== END 2023-04-03 16:49 | disposition home or self-care (01) | DRG 291 ==
LOC: EC 19:57 → 6NMEDSUR 23:07 → 4SSUR 03-29 00:08 → OBSVTOIN 04-01 13:24 → 6NMEDSUR 04-01 18:30
PROVIDERS: ADMIT Internal Medicine; ATTEND Internal Medicine
DX: I13.0 Hypertensive heart and chronic kidney disease with heart failure and stage 1 through stage 4 chronic kidney disease, or unspecified chronic kidney disease (principal); I50.43 Acute on chronic combined systolic (congestive) and diastolic (congestive) heart failure; I48.19 Other persistent atrial fibrillation; J44.0 Chronic obstructive pulmonary disease with (acute) lower respiratory infection; J44.1 Chronic obstructive pulmonary disease with (acute) exacerbation; B37.0 Candidal stomatitis; I08.0 Rheumatic disorders of both mitral and aortic valves; I27.20 Pulmonary hypertension, unspecified; I45.10 Unspecified right bundle-branch block; J20.9 Acute bronchitis, unspecified; E03.9 Hypothyroidism, unspecified; E11.22 Type 2 diabetes mellitus with diabetic chronic kidney disease; E78.5 Hyperlipidemia, unspecified; I25.10 Atherosclerotic heart disease of native coronary artery without angina pectoris; I25.2 Old myocardial infarction; I25.5 Ischemic cardiomyopathy; N18.30 Chronic kidney disease, stage 3 unspecified; Z79.01 Long term (current) use of anticoagulants; Z79.51 Long term (current) use of inhaled steroids; Z79.84 Long term (current) use of oral hypoglycemic drugs; Z79.890 Hormone replacement therapy; Z79.899 Other long term (current) drug therapy; Z82.49 Family history of ischemic heart disease and other diseases of the circulatory system; Z83.3 Family history of diabetes mellitus; Z86.73 Personal history of transient ischemic attack (TIA), and cerebral infarction without residual deficits; Z82.3 Family history of stroke; Z95.5 Presence of coronary angioplasty implant and graft; Z95.1 Presence of aortocoronary bypass graft; Z96.652 Presence of left artificial knee joint; Z88.2 Allergy status to sulfonamides; Z88.8 Allergy status to other drugs, medicaments and biological substances; Z88.1 Allergy status to other antibiotic agents; Z88.5 Allergy status to narcotic agent; Z91.013 Allergy to seafood; Z87.01 Personal history of pneumonia (recurrent)
CPT/HCPCS: 36415; 71046; 80048; 80053; 83036; 83735; 83880; 84484; 85025; 87070; 87205; 93306; 94640; 94667; 96361; 96374; 96375; 99285

== ENCOUNTER 2023-04-06 17:45 | Inpatient (IN) | payer OTHER, MEDICARE ==
[2023-04-06] MEDS ORDERED: IPRATROPIUM-ALBUTEROL 3 ML NEB INHALATION STA (17:53)
--- NOTE | 2023-04-06 18:01 | ED ---
General Adult HPI - General Chief complaint: Shortness of Breath Stated complaint: INA Time Seen by Provider: 04/06/23 17:46 Source: patient, EMS, RN notes reviewed Mode of arrival: EMS - History of Present Illness Initial comments: Patient is a pleasant 77-year-old male presenting to the emergency department with dyspnea. Patient does have history of similar symptoms previously associated with COPD and CHF. Patient states he was admitted last week for same problem. No chest pain. Patient states he does not have significant leg swelling. Patient states he has noticed some wheezing in his lungs. No fever. - Related Data Home Medications Medication Instructions Recorded Confirmed allopurinoL [Zyloprim] 300 mg PO DAILY 08/07/17 04/06/23 Gabapentin 1,200 mg PO TID@1400,1800,2200 10/02/18 04/06/23 Levothyroxine Sodium [Synthroid] 112 mcg PO DAILY 10/02/18 04/06/23 Levothyroxine Sodium [Synthroid] 125 mcg PO DAILY 10/02/18 04/06/23 Nitroglycerin Sl Tabs [Nitrostat] 0.4 mg SL Q5M PRN 10/02/18 04/06/23 carvediloL [Coreg] 6.25 mg PO BID-W/MEALS 03/17/21 04/06/23 Atorvastatin [Lipitor] 40 mg PO HS 10/19/21 04/06/23 Apixaban [Eliquis] 5 mg PO BID 09/28/22 04/06/23 Budesonide/Formoterol Fumarate 2 puff INHALATION RT-BID 09/28/22 04/06/23 [Symbicort 80-4.5 Mcg Inhaler] HYDROcodone/APAP 7.5-325MG [[place] 1 tab PO BID PRN 09/28/22 04/06/23 7.5-325] Magnesium Oxide [Mag-Ox] 400 mg PO BID 09/28/22 04/06/23 Meclizine [Antivert] 12.5 mg PO TID PRN 09/28/22 04/06/23 Albuterol Sulfate [Proventil Hfa] 1 puff INHALATION RT-Q6H PRN 11/22/22 04/06/23 Omeprazole 20 mg PO DAILY 11/22/22 04/06/23 Glimepiride [Amaryl] 2 mg PO BID 03/29/23 04/06/23 guaiFENesin-DM 600/30MG [Mucinex 2 tab PO Q12HR 04/06/23 04/06/23 Dm] predniSONE [Deltasone] See Taper PO DIRECTED 04/06/23 04/06/23 Previous Rx's Medication Instructions Recorded Furosemide [Lasix] 40 mg PO Q12HR 30 Days #60 tab 04/03/23 Nystatin 100,000 Unit/ml Susp 500,000 unit PO QID 4 Days #160 ml 04/03/23 [Mycostatin Oral Susp] Allergies Allergy/AdvReac Type Severity Reaction Status Date / Time Sulfa (Sulfonamide Allergy Mild Rash/Hives Verified 04/06/23 19:28 Antibiotics) cephalexin [From Keflex] Allergy Unknown Verified 04/06/23 19:28 clopidogrel [From Plavix] Allergy Rash/Hives Verified 04/06/23 19:28 codeine Allergy Rash/Nausea Verified 04/06/23 19:28 & Vomiting Iodine and Iodide Containing Allergy Rash/Hives Verified 04/06/23 19:28 Produc levofloxacin [From Levaquin] Allergy urticaria/r Verified 04/06/23 19:28 belle shellfish derived [Shellfish] Allergy urticaria/r Verified 04/06/23 19:28 belle lisinopril AdvReac Angiodema Verified 04/06/23 19:28 of tongue oxycodone AdvReac Hallucinati Verified 04/06/23 19:28 ons solifenacin AdvReac Nausea & Verified 04/06/23 19:28 Vomiting Review of Systems ROS Statement: Those systems with pertinent positive or pertinent negative responses have been documented in the HPI. ROS Other: All systems not noted in ROS Statement are negative. Constitutional: Denies: fever Eyes: Denies: eye pain ENT: Denies: ear pain Respiratory: Reports: as per HPI, dyspnea Cardiovascular: Denies: chest pain Endocrine: Denies: fatigue Gastrointestinal: Denies: abdominal pain Genitourinary: Denies: dysuria Musculoskeletal: Denies: back pain Skin: Denies: rash Neurological: Denies: weakness Past Medical History Past Medical History: Atrial Fibrillation, Coronary Artery Disease (CAD), Heart Failure, COPD, CVA/TIA, Diabetes Mellitus, Hypertension, Myocardial Infarction (MS) Additional Past Medical History / Comment(s): left knee cap broken, pancreatitis, /gallstones, Patient reports having stroke like symptoms after injection in knee, Last Myocardial Infarction Date:: 2017 History of Any Multi-Drug Resistant Organisms: MRSA Date of last positivie culture/infection: 10/01/22 MDRO Source:: Sputum Past Surgical History: Cholecystectomy, Coronary Bypass/CABG, Heart Catheterization With Stent, Hernia Repair, Orthopedic Surgery Additional Past Surgical History / Comment(s): lt knee replacement(total of 4 sx), colonoscopy, Left knee cap removal with antibiotic spacers placed, Past Anesthesia/Blood Transfusion Reactions: No Reported Reaction Date of Last Stent Placement:: 10/2015 Past Psychological History: No Psychological Hx Reported Smoking Status: Former smoker Past Alcohol Use History: Occasional Past Drug Use History: None Reported - Past Family History Father Family Medical History: Diabetes Mellitus Mother Family Medical History: CVA/TIA, Hypertension General Exam Limitations: no limitations General appearance: alert, in no apparent distress Head exam: Present: normocephalic Eye exam: Present: normal appearance Neck exam: Present: normal inspection Respiratory exam: Present: wheezes, rales Cardiovascular Exam: Present: irregular rhythm GI/Abdominal exam: Present: soft. Absent: tenderness Extremities exam: Present: normal inspection. Absent: pedal edema, calf tenderness Neurological exam: Present: alert Psychiatric exam: Present: normal affect, normal mood Skin exam: Present: normal color Course Vital Signs 04/06/23 04/06/23 04/06/23 17:46 17:51 18:10 Temperature 98.1 F Pulse Rate 91 101 H Respiratory 22 22 18 Rate Blood Pressure 121/83 O2 Sat by Pulse 92 L Oximetry 04/06/23 18:19 Temperature Pulse Rate 101 H Respiratory 18 Rate Blood Pressure O2 Sat by Pulse Oximetry EKG Findings - EKG Results: EKG: interpreted by ERMD (Left axis. Right bundle branch block. Nonspecific ST-T.) EKG shows: atrial fibrillation Medical Decision Making - Medical Decision Making Was pt. sent in by a medical professional or institution (, PA, CLIENT ADMINISTRATOR, urgent care, hospital, or penitentiary...) When possible be specific @ -No Did you speak to anyone other than the patient for history (EMS, parent, family, police, friend...)? What history was obtained from this source @ -No Did you review nursing and triage notes (agree or disagree)? Why? @ -I reviewed and agree with nursing and triage notes Were old charts reviewed (outside hosp., previous admission, EMS record, old EKG, old radiological studies, urgent care reports/EKG's, penitentiary records)? Report findings @ -Previous admission reviewed Differential Diagnosis (chest pain, altered mental status, abdominal pain women, abdominal pain men, vaginal bleeding, weakness, fever, dyspnea, syncope, headache, dizziness, GI bleed, back pain, seizure, CVA, palpatations, mental health)? @ -Differential Dyspnea: Coronary syndrome, arrhythmia, tamponade, asthma, COPD, pulmonary embolism, pneumonia, pneumothorax, pulmonary effusion, anaphylaxis, diabetic ketoacidosis, flailed chest, pulmonary contusion, diaphragmatic rupture, anemia, neuromuscular, this is not meant to be an all-inclusive list. EKG interpreted by me (3pts min.). @ -As above X-rays interpreted by me (1pt min.). @ -Chest x-ray concerning for CHF CT interpreted by me (1pt min.). @ -None done U/S interpreted by me (1pt. min.). @ -None done What testing was considered but not performed or refused? (CT, X-rays, U/S, labs)? Why? @ -None What meds were considered but not given or refused? Why? @ -None Did you discuss the management of the patient with other professionals (professionals i.e. , PA, CLIENT ADMINISTRATOR, lab, RT, psych nurse, psychiatric social worker, sales developer, teacher, operations officer afloat, pillowcase cutter)? Give summary @ -Case was discussed with Dr. Mg who is familiar with this patient and will admit for Dr. longo. He does request consult with pulmonary and cardiology Was smoking cessation discussed for >3mins.? @ -No Was critical care preformed (if so, how long)? @ -No Were there social determinants of health that impacted care today? How? (Homelessness, low income, unemployed, alcoholism, drug addiction, transportation, low edu. Level, literacy, decrease access to med. care, usp, rehab)? @ -No Was there de-escalation of care discussed even if they declined (Discuss DNR or withdrawal of care, Hospice)? DNR status @ -No What co-morbidities impacted this encounter? (DM, HTN, Smoking, COPD, CAD, Cancer, CVA, ARF, Chemo, Hep., AIDS, mental health diagnosis, sleep apnea, morbid obesity)? @ -None Was patient admitted / discharged? Hospital course, mention meds given and rout e, prescriptions, significant lab abnormalities, going to OR and other pertinent info. @ -Patient reevaluated with only mild improvement of symptoms. Patient still has some wheezing and rales. Patient will be admitted with consults. Admission orders placed. Undiagnosed new problem with uncertain prognosis? @ -No Drug Therapy requiring intensive monitoring for toxicity (Heparin, Nitro, Insulin, Cardizem)? @ -No Were any procedures done? @ -No Diagnosis/symptom? @ -CHF, COPD Acute, or Chronic, or Acute on Chronic? @ -Acute on chronic, acute on chronic Uncomplicated (without systemic symptoms) or Complicated (systemic symptoms)? @ -default Side effects of treatment? @ -No Exacerbation, Progression, or Severe Exacerbation? @ -Exacerbation Poses a threat to life or bodily function? How? (Chest pain, [place], MS, pneumonia, PE, COPD, DKA, ARF, appy, cholecystitis, CVA, Diverticulitis, Homicidal, Suicidal, threat to staff... and all critical care pts) @ -No - Lab Data Result diagrams: 04/06/23 17:56 04/06/23 17:56 Lab Results 04/06/23 04/06/23 04/06/23 Range/Units 17:56 17:56 17:56 WBC 15.2 H (3.8-10.6) k/uL RBC 4.65 (4.30-5.90) m/uL Hgb 14.8 (13.0-17.5) gm/dL Hct 44.7 (39.0-53.0) % MCV 96.3 (80.0-100.0) fL MCH 31.8 (25.0-35.0) pg MCHC 33.0 (31.0-37.0) g/dL RDW 15.1 (11.5-15.5) % Plt Count 119 L (150-450) k/uL MPV 8.3 Neutrophils % 93 % Lymphocytes % 2 % Monocytes % 3 % Eosinophils % 0 % Basophils % 0 % Neutrophils # 14.2 H (1.3-7.7) k/uL Lymphocytes # 0.4 L (1.0-4.8) k/uL Monocytes # 0.5 (0-1.0) k/uL Eosinophils # 0.0 (0-0.7) k/uL Basophils # 0.0 (0-0.2) k/uL PT 10.6 (9.0-12.0) sec INR 1.0 (<1.2) APTT 22.9 (22.0-30.0) sec Sodium 131 L (137-145) mmol/L Potassium 4.4 (3.5-5.1) mmol/L Chloride 97 L (98-107) mmol/L Carbon Dioxide 28 (22-30) mmol/L Anion Gap 6 mmol/L BUN 55 H (9-20) mg/dL Creatinine 1.18 (0.66-1.25) mg/dL Est GFR (CKD-EPI)AfAm 68 (>60 ml/min/1.73 sqM) Est GFR (CKD-EPI)NonAf 59 (>60 ml/min/1.73 sqM) Glucose 394 H (74-99) mg/dL Plasma Lactic Acid Gideon (0.7-2.0) mmol/L Calcium 8.1 L (8.4-10.2) mg/dL Magnesium 1.9 (1.6-2.3) mg/dL Total Bilirubin 1.1 (0.2-1.3) mg/dL AST 27 (17-59) U/L ALT 32 (4-49) U/L Alkaline Phosphatase 60 (38-126) U/L Troponin I (0.000-0.034) ng/mL NT-Pro-B Natriuret Pep pg/mL Total Protein 5.5 L (6.3-8.2) g/dL Albumin 3.0 L (3.5-5.0) g/dL 04/06/23 04/06/23 04/06/23 Range/Units 17:56 17:56 17:56 WBC (3.8-10.6) k/uL RBC (4.30-5.90) m/uL Hgb (13.0-17.5) gm/dL Hct (39.0-53.0) % MCV (80.0-100.0) fL MCH (25.0-35.0) pg MCHC (31.0-37.0) g/dL RDW (11.5-15.5) % Plt Count (150-450) k/uL MPV Neutrophils % % Lymphocytes % % Monocytes % % Eosinophils % % Basophils % % Neutrophils # (1.3-7.7) k/uL Lymphocytes # (1.0-4.8) k/uL Monocytes # (0-1.0) k/uL Eosinophils # (0-0.7) k/uL Basophils # (0-0.2) k/uL PT (9.0-12.0) sec INR (<1.2) APTT (22.0-30.0) sec Sodium (137-145) mmol/L Potassium (3.5-5.1) mmol/L Chloride (98-107) mmol/L Carbon Dioxide (22-30) mmol/L Anion Gap mmol/L BUN (9-20) mg/dL Creatinine (0.66-1.25) mg/dL Est GFR (CKD-EPI)AfAm (>60 ml/min/1.73 sqM) Est GFR (CKD-EPI)NonAf (>60 ml/min/1.73 sqM) Glucose (74-99) mg/dL Plasma Lactic Acid Gideon 1.6 (0.7-2.0) mmol/L Calcium (8.4-10.2) mg/dL Magnesium (1.6-2.3) mg/dL Total Bilirubin (0.2-1.3) mg/dL AST (17-59) U/L ALT (4-49) U/L Alkaline Phosphatase (38-126) U/L Troponin I 0.021 (0.000-0.034) ng/mL NT-Pro-B Natriuret Pep 3400 pg/mL Total Protein (6.3-8.2) g/dL Albumin (3.5-5.0) g/dL Disposition Clinical Impression: COPD (chronic obstructive pulmonary disease), CHF exacerbation Disposition: ADMITTED IP TO THIS HOSP Is patient prescribed a controlled substance at d/c from ED?: No Referrals: Teresa Walter MD [Primary Care Provider] - 1-2 days Time of Disposition: 20:05
[2023-04-06 18:33] LABS: Basophils % (A) 0 %; Eosinophils % (A) 0 %; HCT 44.7 % (39.0-53.0); HGB 14.8 gm/dL (13.0-17.5); Lymphocytes # (A) 0.4 k/uL (1.0-4.8); Lymphocytes % (A) 2 %; MCH 31.8 pg (25.0-35.0); MCV 96.3 fL (80.0-100.0); Mean Platelet Volume 8.3; Monocytes # (A) 0.5 k/uL (0-1.0); Monocytes % (A) 3 %; Neutrophils # (A) 14.2 k/uL (1.3-7.7); Neutrophils % (A) 93 %; Platelet Count 119 k/uL (150-450); RBC 4.65 m/uL (4.30-5.90); RDW 15.1 % (11.5-15.5); WBC 15.2 k/uL (3.8-10.6)
--- NOTE | 2023-04-06 18:39 | XR ---
EXAMINATION TYPE: XR chest 2V DATE OF EXAM: 04/06/2023 6:31 PM COMPARISON: Chest radiographs from 03/28/2023 TECHNIQUE: XR chest 2V Frontal and lateral views of the chest. CLINICAL INDICATION:Male, 77 years old with history of difficulty breathing; FINDINGS: Lungs/Pleura: There is no evidence of pleural effusion, focal consolidation, or pneumothorax. Pulmonary vascularity: Pulmonary vascular congestion. Heart/mediastinum: Cardiomediastinal silhouette is enlarged and stable. Musculoskeletal: No acute osseous pathology. Midline sternotomy wires are noted. IMPRESSION: Cardiomegaly and mild pulmonary vascular congestion. Correlate with BNP for congestive heart failure.
[2023-04-06 18:44] LABS: ALT 32 U/L (4-49); AST 27 U/L (17-59); African American GFR (CKD) 68 (>60 ml/min/1.73 sqM); Alkaline Phosphatase 60 U/L (38-126); Anion Gap 6 mmol/L; Blood Urea Nitrogen 55 mg/dL (9-20); Calcium 8.1 mg/dL (8.4-10.2); Carbon Dioxide 28 mmol/L (22-30); Chloride 97 mmol/L (98-107); Glucose 394 mg/dL (74-99); Magnesium 1.9 mg/dL (1.6-2.3); Non-African American GFR(CKD) 59 (>60 ml/min/1.73 sqM); Sodium 131 mmol/L (137-145); Total Bilirubin 1.1 mg/dL (0.2-1.3); Total Protein 5.5 g/dL (6.3-8.2)
[2023-04-06 18:49] LABS: Partial Thromboplastin Time 22.9 sec (22.0-30.0); Prothrombin Time 10.6 sec (9.0-12.0)
[2023-04-06 19:23] LABS: Potassium 4.4 mmol/L (3.5-5.1)
[2023-04-06] MEDS ORDERED: INSULIN REGULAR 100 UNIT/ML VIAL (IM/SQ) SQ ONE (19:47)
[2023-04-06] MEDS ORDERED: NALOXONE 0.4 MG/ML 1 ML VIAL IVP PRN (20:05)
[2023-04-06] MEDS ORDERED: IPRATROPIUM-ALBUTEROL 3 ML NEB INHALATION PRN (20:05)
[2023-04-06] MEDS ORDERED: methylPREDNISolone SOD SUCCI 125 MG/2 ML VIAL IV STA (20:05)
[2023-04-06] MEDS ORDERED: ASPIRIN 325 MG TAB PO STA (20:05)
[2023-04-06] MEDS ORDERED: HYDROcodone/APAP 7.5-325MG 1 EACH TAB PO PRN (20:07)
[2023-04-06] MEDS: FUROSEMIDE 10 MG/ML 4 ML VIAL IV SCH (22:01)
[2023-04-06] MEDS: ATORVASTATIN 40 MG TAB PO SCH (22:01)
[2023-04-06] MEDS: APIXABAN 5 MG TAB PO SCH (22:01)
[2023-04-06] MEDS: MAGNESIUM OXIDE 400 MG TAB PO SCH (22:02)
[2023-04-06] MEDS: GABAPENTIN 400 MG CAP PO SCH (22:02)
[2023-04-06] MEDS: GLIMEPIRIDE 2 MG TAB PO SCH (22:07)
[2023-04-06] MEDS ORDERED: DEXTROSE 50% SYRINGE 50 ML IVP PRN ×2 (23:08)
[2023-04-07] MEDS: methylPREDNISolone SOD SUCCI 125 MG/2 ML VIAL IV SCH ×4 (01:10→18:09)
[2023-04-07] MEDS ORDERED: SODIUM CHLORIDE 0.9% 500 ML 500 ML IV ONE ×2 (01:29→05:29)
[2023-04-07] MEDS: NITROGLYCERIN OINT 1 INCH/GM PACKET TOPICAL SCH ×4 (01:48→18:05)
[2023-04-07 06:19] LABS: Glucose,Whole Blood 459 mg/dL (70-110)
[2023-04-07] MEDS: carvediloL 6.25 MG TAB PO SCH ×2 (06:58→18:01)
[2023-04-07] MEDS: INSULIN ASPART (NovoLOG) 100 UNIT/ML VIAL SQ SCH ×5 (06:58→21:28)
[2023-04-07] MEDS ORDERED: INSULIN DETEMIR (LEVEMIR) 100 UNIT/ML SYR SQ SCH (07:00)
[2023-04-07] MEDS: IPRATROPIUM-ALBUTEROL 3 ML NEB INHALATION SCH ×4 (07:35→19:38)
[2023-04-07] MEDS ORDERED: ASPIRIN 325 MG TAB PO SCH (09:00)
--- NOTE | 2023-04-07 09:09 | P.CRDCN ---
History of Present Illness History of present illness: HISTORY OF PRESENT ILLNESS: This is a 77-year-old male with a past medical history significant for coronary artery disease with previous CABG with LINDSEY to LAD, PCI of the ostium of the cir cumflex, left main, and RCA, atrial fibrillation, systolic systolic heart failure, diabetes, hypertension, and hyperlipidemia. Patient follows in the office with Dr. Vazquez. We have been asked to see the patient in consultation for SOB/congestive heart failure. Unfortunately patient has been having frequent admissions or last 6 months. He was just discharged 5 days ago and treated for COPD as well as heart failure. Had attempted to add RCA however apparently this was not covered. Patient does however believe [facility] He states he felt "medium" in terms of somewhat better when he went home however developed progressive shortness of breath. He admits that if he is sitting upright he will feel better however cannot lie flat more than 45 degrees without being short of breath. Does have a mild cough and denies any fevers or chills however does have somewhat of a wheeze. He has been treated for COPD and states he had Agent [place] exposure in [place]. EKG reveals atrial fibrillation with mild RVR Right bundle branch block. Denies any chest pain or pressure. He was discharged home on prednisone and does have leukocytosis with white blood cell count 15. Prior echoes have been in the range of 20-25% up to 30-35%. He has not had any defibrillator. He has been unable to tolerate much heart failure regimen with patient being on Midodrine. REVIEW OF SYSTEMS: At the time of my exam: CONSTITUTIONAL: Denies fever or chills. HEENT: Denies blurred vision, vision changes, or eye pain. Denies hemoptysis CARDIOVASCULAR: Denies chest pain. +orthopnea. Denies PND. Denies palpitations RESPIRATORY: +Shortness of breath. GASTROINTESTINAL: Denies abdominal pain. Denies nausea or vomiting. HEMATOLOGIC: Denies bleeding disorders. GENITOURINARY: Denies any blood in urine. SKIN: Denies pruitis. Denies rash. PHYSICAL EXAM: VITAL SIGNS: Reviewed. GENERAL: Well-developed in no acute distress. HEENT: Head is normocephalic. Pupils are equal, round. Sclerae anicteric. Mucous membranes of the mouth are moist. Neck supple. No JVD or thyromegaly LUNGS: Respirations even and unlabored. Lungs diminished at the bases with expiratory wheezing noted. HEART: Irregular rate and rhythm. S1 and S2 heard. + 2/6 systolic murmur ABDOMEN: Soft. Nondistended. Nontender. EXTREMITIES: Normal range of motion. No clubbing or cyanosis. Peripheral pulses intact. No lower extremity edema, left leg with erythema NEUROLOGIC: Awake and alert. Oriented x 3. ASSESSMENT: Acute on chronic heart failure with reduced EF variable 20-35% range COPD Coronary artery disease with previous CABG with LINDSEY to LAD, PCI of the ostium of the circumflex, left main, and RCA Ischemic cardiomyopathy Persistent atrial fibrillation, on Eliquis, mild RVR on presentation Mild to moderate aortic stenosis Hypertension Hyperlipidemia Diabetes Leukocytosis likely related to steroids PLAN: Patient unable to tolerate much heart failure regimen and continue with carvedilol mainly for heart rate control. Patient is having significant orthopnea and mild crackles at bases and some of presentation likely consistent with heart failure. IV Lasix and monitor response. No need to repeat echo. Prior echo showing more mild to moderate aortic stenosis and only a 2/6 systolic murmur. Patient believes seem may be able [facility] and attempt to facilitate. Patient would likely be a good candidate for biventricular AICD with AV jimmie ablation for management of his A. fib and may help with heart failure symptoms with widening QRS. This can be arranged outpt. Further recommendations pending patient course Past Medical History Past Medical History: Atrial Fibrillation, Coronary Artery Disease (CAD), Heart Failure, COPD, CVA/TIA, Diabetes Mellitus, Hypertension, Myocardial Infarction (ID) Additional Past Medical History / Comment(s): left knee cap broken, pancreatitis, /gallstones, Patient reports having stroke like symptoms after injection in knee, Last Myocardial Infarction Date:: 2017 History of Any Multi-Drug Resistant Organisms: MRSA Date of last positivie culture/infection: 10/01/22 MDRO Source:: Sputum Past Surgical History: Cholecystectomy, Coronary Bypass/CABG, Heart Catheterization With Stent, Hernia Repair, Orthopedic Surgery Additional Past Surgical History / Comment(s): lt knee replacement(total of 4 sx), colonoscopy, Left knee cap removal with antibiotic spacers placed, Past Anesthesia/Blood Transfusion Reactions: No Reported Reaction Date of Last Stent Placement:: 10/2015 Past Psychological History: No Psychological Hx Reported Additional Psychological History / Comment(s): Pt resides with his spouse. He uses a walker to ambulate. Smoking Status: Former smoker Past Alcohol Use History: Occasional Additional Past Alcohol Use History / Comment(s): Pt started smoking as teen and quit 1983 smoked 2 ppd. Pt usually has one drink a night. Past Drug Use History: None Reported - Past Family History Father Family Medical History: Diabetes Mellitus Mother Family Medical History: CVA/TIA, Hypertension Medications and Allergies Home Medications Medication Instructions Recorded Confirmed Type allopurinoL [Zyloprim] 300 mg PO DAILY 08/07/17 04/06/23 History Gabapentin 1,200 mg PO TID@1400,1800,2200 10/02/18 04/06/23 History Levothyroxine Sodium [Synthroid] 112 mcg PO DAILY 10/02/18 04/06/23 History Levothyroxine Sodium [Synthroid] 125 mcg PO DAILY 10/02/18 04/06/23 History Nitroglycerin Sl Tabs [Nitrostat] 0.4 mg SL Q5M PRN 10/02/18 04/06/23 History carvediloL [Coreg] 6.25 mg PO BID-W/MEALS 03/17/21 04/06/23 History Atorvastatin [Lipitor] 40 mg PO HS 10/19/21 04/06/23 History Apixaban [Eliquis] 5 mg PO BID 09/28/22 04/06/23 History Budesonide/Formoterol Fumarate 2 puff INHALATION RT-BID 09/28/22 04/06/23 History [Symbicort 80-4.5 Mcg Inhaler] HYDROcodone/APAP 7.5-325MG [[place] 1 tab PO BID PRN 09/28/22 04/06/23 History 7.5-325] Magnesium Oxide [Mag-Ox] 400 mg PO BID 09/28/22 04/06/23 History Meclizine [Antivert] 12.5 mg PO TID PRN 09/28/22 04/06/23 History Albuterol Sulfate [Proventil Hfa] 1 puff INHALATION RT-Q6H PRN 11/22/22 04/06/23 History Omeprazole 20 mg PO DAILY 11/22/22 04/06/23 History Glimepiride [Amaryl] 2 mg PO BID 03/29/23 04/06/23 History Furosemide [Lasix] 40 mg PO Q12HR 30 Days #60 tab 04/03/23 04/06/23 Rx Nystatin 100,000 Unit/ml Susp 500,000 unit PO QID 4 Days #160 ml 04/03/23 04/06/23 Rx [Mycostatin Oral Susp] guaiFENesin-DM 600/30MG [Mucinex 2 tab PO Q12HR 04/06/23 04/06/23 History Dm] predniSONE [Deltasone] See Taper PO DIRECTED 04/06/23 04/06/23 History Allergies Allergy/AdvReac Type Severity Reaction Status Date / Time Sulfa (Sulfonamide Allergy Mild Rash/Hives Verified 04/06/23 19:28 Antibiotics) cephalexin [From Keflex] Allergy Unknown Verified 04/06/23 19:28 clopidogrel [From Plavix] Allergy Rash/Hives Verified 04/06/23 19:28 codeine Allergy Rash/Nausea Verified 04/06/23 19:28 & Vomiting Iodine and Iodide Containing Allergy Rash/Hives Verified 04/06/23 19:28 Produc levofloxacin [From Levaquin] Allergy urticaria/r Verified 04/06/23 19:28 belle shellfish derived [Shellfish] Allergy urticaria/r Verified 04/06/23 19:28 belle lisinopril AdvReac Angiodema Verified 04/06/23 19:28 of tongue oxycodone AdvReac Hallucinati Verified 04/06/23 19:28 ons solifenacin AdvReac Nausea & Verified 04/06/23 19:28 Vomiting Physical Exam Vitals: Vital Signs Temp Pulse Pulse Resp BP BP BP 04/07/23 07:47 88 04/07/23 07:35 92 04/07/23 07:00 97.5 F L 90 14 125/85 04/07/23 02:00 98.3 F 88 18 91/57 04/06/23 23:31 18 04/06/23 21:52 98.0 F 85 16 124/76 04/06/23 20:56 84 04/06/23 20:36 88 04/06/23 18:19 101 H 18 04/06/23 18:10 101 H 18 04/06/23 17:51 22 04/06/23 17:46 98.1 F 91 22 121/83 Pulse Ox 04/07/23 07:47 04/07/23 07:35 04/07/23 07:00 94 L 04/07/23 02:00 93 L 04/06/23 23:31 04/06/23 21:52 96 04/06/23 20:56 04/06/23 20:36 04/06/23 18:19 04/06/23 18:10 04/06/23 17:51 04/06/23 17:46 92 L Intake and Output 04/06/23 04/07/23 04/07/23 22:59 06:59 14:59 Output Total 1000 Balance -1000 Output: Urine 1000 Other: Voiding Method Urinal Diaper # Voids 3 Weight 99.79 kg 93.1 kg Results 04/06/23 17:56 04/06/23 17:56 Cardiac Enzymes 04/06/23 04/06/23 Range/Units 17:56 17:56 AST 27 (17-59) U/L Troponin I 0.021 (0.000-0.034) ng/mL Coagulation 04/06/23 Range/Units 17:56 PT 10.6 (9.0-12.0) sec APTT 22.9 (22.0-30.0) sec CBC 04/06/23 Range/Units 17:56 WBC 15.2 H (3.8-10.6) k/uL RBC 4.65 (4.30-5.90) m/uL Hgb 14.8 (13.0-17.5) gm/dL Hct 44.7 (39.0-53.0) % Plt Count 119 L (150-450) k/uL Comprehensive Metabolic Panel 04/06/23 Range/Units 17:56 Sodium 131 L (137-145) mmol/L Potassium 4.4 (3.5-5.1) mmol/L Chloride 97 L (98-107) mmol/L Carbon Dioxide 28 (22-30) mmol/L BUN 55 H (9-20) mg/dL Creatinine 1.18 (0.66-1.25) mg/dL Glucose 394 H (74-99) mg/dL Calcium 8.1 L (8.4-10.2) mg/dL AST 27 (17-59) U/L ALT 32 (4-49) U/L Alkaline Phosphatase 60 (38-126) U/L Total Protein 5.5 L (6.3-8.2) g/dL Albumin 3.0 L (3.5-5.0) g/dL Current Medications Generic Name Dose Route Start Last Admin Trade Name Freq PRN Reason Stop Dose Admin Hydrocodone Bitart/Acetaminophen 1 each 04/06/23 20:07 Hydrocodone/Apap 7.5-325mg 1 Each Tab PO BID PRN Pain Albuterol/Ipratropium 3 ml 04/07/23 08:00 04/07/23 07:35 Ipratropium-Albuterol 3 Ml Neb INHALATION 3 ml RT-QID MARIVEL Administration Albuterol/Ipratropium 3 ml 04/06/23 20:05 04/06/23 20:36 Ipratropium-Albuterol 3 Ml Neb INHALATION 3 ml RT-Q2H PRN Administration Shortness Of Breath Or Wheezing Allopurinol 300 mg 04/07/23 09:00 Allopurinol 300 Mg Tab PO DAILY MARIVEL Apixaban 5 mg 04/06/23 21:00 04/06/23 22:01 Apixaban 5 Mg Tab PO 5 mg BID MARIVEL Administration Protocol Aspirin 325 mg 04/07/23 09:00 Aspirin 325 Mg Tab PO DAILY MARIVEL Atorvastatin Calcium 40 mg 04/06/23 21:00 04/06/23 22:01 Atorvastatin 40 Mg Tab PO 40 mg HS MARIVEL Administration Budesonide/Formoterol Fumarate 2 puff 04/07/23 08:00 Symbicort 160-4.5 Mcg Inhaler INHALATION RT-BID MARIVEL Carvedilol 6.25 mg 04/07/23 07:30 04/07/23 06:58 Carvedilol 6.25 Mg Tab PO 6.25 mg BID-W/MEALS MARIVEL Administration Dextrose/Water 25 ml 04/06/23 23:08 Dextrose 50% Syringe 50 Ml IVP PER PROTOCOL PRN Hypoglycemia Protocol Dextrose/Water 50 ml 04/06/23 23:08 Dextrose 50% Syringe 50 Ml IVP PER PROTOCOL PRN Hypoglycemia Protocol Furosemide 40 mg 04/06/23 20:15 04/06/23 22:01 Furosemide 10 Mg/Ml 4 Ml Vial IV 40 mg Q12H MARIVEL Administration Gabapentin 1,200 mg 04/06/23 22:00 04/06/23 22:02 Gabapentin 400 Mg Cap PO 1,200 mg TID@1400,1800,2200 MARIVEL Administration Glimepiride 2 mg 04/06/23 21:00 04/06/23 22:07 Glimepiride 2 Mg Tab PO 2 mg BID [facility] Administration Ceftriaxone Sodium 1 gm/ 50 mls @ 100 mls/hr 04/07/23 09:00 Sodium Chloride IVPB Q24HR [facility] Protocol Insulin Aspart 0 unit 04/07/23 07:30 04/07/23 06:58 Insulin Aspart (Novolog) 100 Unit/Ml Vial SQ 12 unit ACHS [facility] Administration Protocol Insulin Detemir 10 unit 04/07/23 07:00 04/07/23 07:51 Insulin Detemir (Levemir) 100 Unit/Ml Syr SQ 10 unit DAILY@0700 [facility] Administration Levothyroxine Sodium 125 mcg 04/07/23 09:00 Levothyroxine 125 Mcg Tab PO DAILY [facility] Levothyroxine Sodium 112 mcg 04/07/23 09:00 Levothyroxine 112 Mcg Tab PO DAILY [facility] Magnesium Oxide 400 mg 04/06/23 21:00 04/06/23 22:02 Magnesium Oxide 400 Mg Tab PO 400 mg BID [facility] Administration Methylprednisolone Sodium Succinate 60 mg 04/07/23 00:00 04/07/23 05:53 Methylprednisolone Sod Succi 125 Mg/2 Ml Vial IV 60 mg Q6HR [facility] Administration Naloxone HCl 0.2 mg 04/06/23 20:05 Naloxone 0.4 Mg/Ml 1 Ml Vial IVP Q2M PRN Opioid Reversal Nitroglycerin 1 inch 04/07/23 00:00 04/07/23 05:49 Nitroglycerin Oint 1 Inch/Gm Packet TOPICAL 04/08/23 00:01 Not Given Q6HR [facility] Pantoprazole Sodium 40 mg 04/07/23 09:00 Pantoprazole 40 Mg Tablet PO DAILY [facility] Intake and Output 04/06/23 04/07/23 04/07/23 22:59 06:59 14:59 Output Total 1000 Balance -1000 Output: Urine 1000 Other: Voiding Method Urinal Diaper # Voids 3 Weight 99.79 kg 93.1 kg 04/06/23 17:56 04/06/23 17:56
[2023-04-07] MEDS: FUROSEMIDE 10 MG/ML 4 ML VIAL IV SCH (09:26)
[2023-04-07] MEDS: MAGNESIUM OXIDE 400 MG TAB PO SCH ×2 (09:33→20:32)
[2023-04-07] MEDS: APIXABAN 5 MG TAB PO SCH ×2 (09:33→20:32)
[2023-04-07] MEDS: PANTOPRAZOLE 40 MG TABLET PO SCH (09:33)
[2023-04-07] MEDS: allopurinoL 300 MG TAB PO SCH (09:33)
[2023-04-07] MEDS: GLIMEPIRIDE 2 MG TAB PO SCH ×2 (09:34→20:32)
[2023-04-07] MEDS: LEVOTHYROXINE 125 MCG TAB PO SCH (10:25)
[2023-04-07] MEDS: LEVOTHYROXINE 112 MCG TAB PO SCH (10:25)
[2023-04-07] MEDS: FUROSEMIDE 10 MG/ML 10 ML VIAL IV SCH ×2 (10:27→21:28)
[2023-04-07] MEDS ORDERED: NITROGLYCERIN SL TABS 0.4 MG TAB SUBLINGUAL PRN (10:29)
[2023-04-07] MEDS ORDERED: MECLIZINE 12.5 MG TAB PO PRN (10:29)
[2023-04-07] MEDS ORDERED: ALBUTEROL NEBULIZED 2.5 MG/3 ML INHALATION PRN (10:29)
--- NOTE | 2023-04-07 11:09 | P.CNPUL ---
History of Present Illness Consult date: 04/07/23 Requesting physician: Karoline Mg Reason for consult: dyspnea Chief complaint: Shortness of breath, cough, congestion History of present illness: This is a pleasant 77-year-old male patient with a history of chronic obstructive pulmonary disease, chronic systolic congestive heart failure with e jection fraction 20-25%, moderate aortic stenosis, severe pulmonary hypertension, chronic kidney disease stage III, coronary artery disease with previous coronary artery bypass grafting and stent placements, hypothyroidism, hyperlipidemia, chronic atrial fibrillation anticoagulated with Eliquis, history of gallstone pancreatitis. He has had frequent admissions to the hospital for his multiple comorbidities. He was just discharged again on 04/03/2023 following his COPD/CHF exacerbation. He came back to the hospital on 04/06/2023 with worsening shortness of breath, cough and congestion. Chest x-ray shows evidence of cardiomegaly with mild pulmonary vascular congestion. EKG reveals atrial fibrillation with varying ventricular response. White count 15.2. Hemoglobin 14.8. Platelets 119. Sodium 131. Potassium 4.4. Bicarb 20. BUN 55. Creatinine 1.18. Glucose 394. Lactic acid 2.2. Troponin negative times one. ProBNP 3400. Review of Systems REVIEW OF SYSTEMS: CONSTITUTIONAL: Denies any recent significant weight loss or weight gain. EYES: Denies change in vision. EARS, NOSE, MOUTH, THROAT: Denies headaches, denies sore throat. CARDIOVASCULAR: Denies chest pain, palpitations or syncopal episodes. RESPIRATORY: Positive for shortness of breath, cough, congestion no hemoptysis. GASTROINTESTINAL: Denies change in appetite, denies abdominal pain GENITOURINARY: Denies hematuria, denies infections. MUSKULOSKELETAL: Positive for lower extremity edema. INTEGUMENTARY: Denies rash, denies eczema. NEUROLOGICAL: Denies recent memory loss, no recent seizure activity. PSYCHIATRIC: Denies anxiety, denies depression. HEMATOLOGIC/LYMPHATIC: Denies anemia, denies enlarged lymph nodes. Past Medical History Past Medical History: Atrial Fibrillation, Coronary Artery Disease (CAD), Heart Failure, COPD, CVA/TIA, Diabetes Mellitus, Hypertension, Myocardial Infarction (MD) Additional Past Medical History / Comment(s): left knee cap broken, pancreatitis, /gallstones, Patient reports having stroke like symptoms after injection in knee, Last Myocardial Infarction Date:: 2017 History of Any Multi-Drug Resistant Organisms: MRSA Date of last positivie culture/infection: 10/01/22 MDRO Source:: Sputum Past Surgical History: Cholecystectomy, Coronary Bypass/CABG, Heart Catheterization With Stent, Hernia Repair, Orthopedic Surgery Additional Past Surgical History / Comment(s): lt knee replacement(total of 4 sx), colonoscopy, Left knee cap removal with antibiotic spacers placed, Past Anesthesia/Blood Transfusion Reactions: No Reported Reaction Date of Last Stent Placement:: 10/2015 Past Psychological History: No Psychological Hx Reported Additional Psychological History / Comment(s): Pt resides with his spouse. He uses a walker to ambulate. Smoking Status: Former smoker Past Alcohol Use History: Occasional Additional Past Alcohol Use History / Comment(s): Pt started smoking as teen and quit 1983 smoked 2 ppd. Pt usually has one drink a night. Past Drug Use History: None Reported - Past Family History Father Family Medical History: Diabetes Mellitus Mother Family Medical History: CVA/TIA, Hypertension Medications and Allergies Home Medications Medication Instructions Recorded Confirmed Type allopurinoL [Zyloprim] 300 mg PO DAILY 08/07/17 04/06/23 History Gabapentin 1,200 mg PO TID@1400,1800,2200 10/02/18 04/06/23 History Levothyroxine Sodium [Synthroid] 112 mcg PO DAILY 10/02/18 04/06/23 History Levothyroxine Sodium [Synthroid] 125 mcg PO DAILY 10/02/18 04/06/23 History Nitroglycerin Sl Tabs [Nitrostat] 0.4 mg SL Q5M PRN 10/02/18 04/06/23 History carvediloL [Coreg] 6.25 mg PO BID-W/MEALS 03/17/21 04/06/23 History Atorvastatin [Lipitor] 40 mg PO HS 10/19/21 04/06/23 History Apixaban [Eliquis] 5 mg PO BID 09/28/22 04/06/23 History Budesonide/Formoterol Fumarate 2 puff INHALATION RT-BID 09/28/22 04/06/23 History [Symbicort 80-4.5 Mcg Inhaler] HYDROcodone/APAP 7.5-325MG [[place] 1 tab PO BID PRN 09/28/22 04/06/23 History 7.5-325] Magnesium Oxide [Mag-Ox] 400 mg PO BID 09/28/22 04/06/23 History Meclizine [Antivert] 12.5 mg PO TID PRN 09/28/22 04/06/23 History Albuterol Sulfate [Proventil Hfa] 1 puff INHALATION RT-Q6H PRN 11/22/22 04/06/23 History Omeprazole 20 mg PO DAILY 11/22/22 04/06/23 History Glimepiride [Amaryl] 2 mg PO BID 03/29/23 04/06/23 History Furosemide [Lasix] 40 mg PO Q12HR 30 Days #60 tab 04/03/23 04/06/23 Rx Nystatin 100,000 Unit/ml Susp 500,000 unit PO QID 4 Days #160 ml 04/03/23 04/06/23 Rx [Mycostatin Oral Susp] guaiFENesin-DM 600/30MG [Mucinex 2 tab PO Q12HR 04/06/23 04/06/23 History Dm] predniSONE [Deltasone] See Taper PO DIRECTED 04/06/23 04/06/23 History Allergies Allergy/AdvReac Type Severity Reaction Status Date / Time Sulfa (Sulfonamide Allergy Mild Rash/Hives Verified 04/06/23 19:28 Antibiotics) cephalexin [From Keflex] Allergy Unknown Verified 04/06/23 19:28 clopidogrel [From Plavix] Allergy Rash/Hives Verified 04/06/23 19:28 codeine Allergy Rash/Nausea Verified 04/06/23 19:28 & Vomiting Iodine and Iodide Containing Allergy Rash/Hives Verified 04/06/23 19:28 Produc levofloxacin [From Levaquin] Allergy urticaria/r Verified 04/06/23 19:28 belle shellfish derived [Shellfish] Allergy urticaria/r Verified 04/06/23 19:28 belle lisinopril AdvReac Angiodema Verified 04/06/23 19:28 of tongue oxycodone AdvReac Hallucinati Verified 04/06/23 19:28 ons solifenacin AdvReac Nausea & Verified 04/06/23 19:28 Vomiting Physical Exam Vitals: Vital Signs Temp Pulse Pulse Resp BP BP BP 04/07/23 07:47 88 04/07/23 07:35 92 04/07/23 07:00 97.5 F L 90 14 125/85 04/07/23 02:00 98.3 F 88 18 91/57 04/06/23 23:31 18 04/06/23 21:52 98.0 F 85 16 124/76 04/06/23 20:56 84 04/06/23 20:36 88 04/06/23 18:19 101 H 18 04/06/23 18:10 101 H 18 04/06/23 17:51 22 04/06/23 17:46 98.1 F 91 22 121/83 Pulse Ox 04/07/23 07:47 04/07/23 07:35 04/07/23 07:00 94 L 04/07/23 02:00 93 L 04/06/23 23:31 04/06/23 21:52 96 04/06/23 20:56 04/06/23 20:36 04/06/23 18:19 04/06/23 18:10 04/06/23 17:51 04/06/23 17:46 92 L Intake and Output 04/06/23 04/07/23 04/07/23 22:59 06:59 14:59 Intake Total 418 Output Total 1000 Balance -1000 418 Intake: Oral 418 Output: Urine 1000 Other: Voiding Method Urinal Diaper # Voids 3 Weight 99.79 kg 93.1 kg GENERAL EXAM: Alert, pleasant 77-year-old male, on room air, fairly comfortable in no apparent distress. HEAD: Normocephalic. EYES: Normal reaction of pupils, equal size. NOSE: Clear with pink turbinates. THROAT: No erythema or exudates. NECK: No masses, no JVD. CHEST: No chest wall deformity. LUNGS: Equal air entry with bilateral expiratory wheeze, crackles in the posterior bases, diminished. CVS: S1 and S2 normal with no audible murmur, regular rhythm. ABDOMEN: No hepatosplenomegaly, normal bowel sounds, no guarding or rigidity. SPINE: No scoliosis or deformity SKIN: No rashes CENTRAL NERVOUS SYSTEM: No focal deficits, tone is normal in all 4 extremities. EXTREMITIES: There is 1-2+ peripheral edema. No clubbing, no cyanosis. Peripheral pulses are intact. Results - Laboratory Findings CBC and BMP: 04/06/23 17:56 04/06/23 17:56 PT/INR, D-dimer PT 10.6 sec (9.0-12.0) 04/06/23 17:56 INR 1.0 (<1.2) 04/06/23 17:56 Abnormal lab findings: Abnormal Labs 04/06/23 04/06/23 04/06/23 17:56 17:56 23:49 WBC 15.2 H Plt Count 119 L Neutrophils # 14.2 H Lymphocytes # 0.4 L Sodium 131 L Chloride 97 L BUN 55 H Glucose 394 H POC Glucose (mg/dL) Hemoglobin A1c Plasma Lactic Acid Gideon 2.6 H* Calcium 8.1 L Total Protein 5.5 L Albumin 3.0 L 04/07/23 04/07/23 04/07/23 03:32 03:32 06:16 WBC Plt Count Neutrophils # Lymphocytes # Sodium Chloride BUN Glucose POC Glucose (mg/dL) 459 H Hemoglobin A1c 8.2 H Plasma Lactic Acid Gideon 2.6 H* Calcium Total Protein Albumin 04/07/23 08:05 WBC Plt Count Neutrophils # Lymphocytes # Sodium Chloride BUN Glucose POC Glucose (mg/dL) Hemoglobin A1c Plasma Lactic Acid Gideon 2.2 H* Calcium Total Protein Albumin - Diagnostic Findings Chest x-ray: image reviewed Assessment and Plan Assessment: Acute exacerbation of chronic systolic congestive heart failure with elevated proBNP level and increased vessel markings and the patient is currently on IV Lasix Acute exacerbation of chronic obstructive pulmonary disease Recent discharge on 04/03/2023 secondary to above History of systolic heart failure with ejection fraction of 20-25% Moderate degree of aortic stenosis and severe pulmonary hypertension as noted on a previous echocardiogram that was done in December 2022 Chronic stage III kidney disease, creatinine is stable for now Former smoker Coronary artery disease with previous bypass surgery and previous coronary intervention and stenting Hypothyroidism Hyperlipidemia Chronic atrial fibrillation. The patient is currently on long-term anticoagulation with Eliquis History of gallstone pancreatitis Poor overall functional performance based on the above-mentioned multiple comorbidities Plan: The patient was seen and evaluated Chest x-ray, labs and medications reviewed Continue DuoNeb inhalations, Symbicort, Solu-Medrol Continue with IV diuretics Anticoagulated with Eliquis Check a pro-calcitonin We will continue to follow and make further recommendations based on his clinical status I have personally seen and examined the patient, performed the documentation and the assessment and plan as written. Number of minutes spent on the visit: 20.
[2023-04-07] MEDS: SYMBICORT 160-4.5 MCG INHALER INHALATION SCH ×2 (11:31→19:38)
[2023-04-07 12:09] LABS: Glucose,Whole Blood 418 mg/dL (70-110)
--- NOTE | 2023-04-07 12:43 | P.HPIM ---
History of Present Illness H&P Date: 04/07/23 Patrick Banuelos, is a 77-year-old male who presented to [facility] emergency room with a chief complaint of worsening shortness of breath, patient was recently admitted to the hospital, with similar complaint, at that time he was diagnosed with acute exacerbation of COPD and acute exacerbation of congestive heart failure, he was treated with IV Lasix IV steroids and inhaled bronchodilators, he was seen by pulmonary and cardiology during that admission, he improved and was discharged home, however patient's symptoms recurred and were worsening, he was only able to walk a few steps without having severe shortness of breath and he decided to come back to emergency room. He was evaluated in the emergency room vital examination on presentation revealed a temperature of 98.1 pulse 91 respiration 22 blood pressure 121/83 pulse ox 92% on room air Laboratory data revealed a white blood count of 15.2 hemoglobin 14.8 platelet count 119 sodium 131 BUN 55 creatinine 1.18 glucose level 394 lactic acid was elevated at 2.6 BNP 3400 Testing in the emergency room revealed chest x-ray done in the emergency room revealed cardiomegaly with mild pulmonary vascular congestion Patient was admitted to medical floor for further evaluation and treatment On review of systems patient is complaining of cough and shortness of breath otherwise he denies any complaints there is no fever or chills no headache or dizziness no chest pain no palpitation no nausea or vomiting no abdominal pain no diarrhea no blood in the stools no burning with urination no frequency or urgency and no hematuria. Past Medical History Past Medical History: Atrial Fibrillation, Coronary Artery Disease (CAD), Heart Failure, COPD, CVA/TIA, Diabetes Mellitus, Hypertension, Myocardial Infarction ([place]) Additional Past Medical History / Comment(s): left knee cap broken, pancreatitis, /gallstones, Patient reports having stroke like symptoms after inj ection in knee, Last Myocardial Infarction Date:: 2017 History of Any Multi-Drug Resistant Organisms: MRSA Date of last positivie culture/infection: 10/01/22 MDRO Source:: Sputum Past Surgical History: Cholecystectomy, Coronary Bypass/CABG, Heart Catheterization With Stent, Hernia Repair, Orthopedic Surgery Additional Past Surgical History / Comment(s): lt knee replacement(total of 4 sx), colonoscopy, Left knee cap removal with antibiotic spacers placed, Past Anesthesia/Blood Transfusion Reactions: No Reported Reaction Date of Last Stent Placement:: 10/2015 Past Psychological History: No Psychological Hx Reported Additional Psychological History / Comment(s): Pt resides with his spouse. He uses a walker to ambulate. Smoking Status: Former smoker Past Alcohol Use History: Occasional Additional Past Alcohol Use History / Comment(s): Pt started smoking as teen and quit 1983 smoked 2 ppd. Pt usually has one drink a night. Past Drug Use History: None Reported - Past Family History Father Family Medical History: Diabetes Mellitus Mother Family Medical History: CVA/TIA, Hypertension Medications and Allergies Home Medications Medication Instructions Recorded Confirmed Type allopurinoL [Zyloprim] 300 mg PO DAILY 08/07/17 04/06/23 History Gabapentin 1,200 mg PO TID@1400,1800,2200 10/02/18 04/06/23 History Levothyroxine Sodium [Synthroid] 112 mcg PO DAILY 10/02/18 04/06/23 History Levothyroxine Sodium [Synthroid] 125 mcg PO DAILY 10/02/18 04/06/23 History Nitroglycerin Sl Tabs [Nitrostat] 0.4 mg SL Q5M PRN 10/02/18 04/06/23 History carvediloL [Coreg] 6.25 mg PO BID-W/MEALS 03/17/21 04/06/23 History Atorvastatin [Lipitor] 40 mg PO HS 10/19/21 04/06/23 History Apixaban [Eliquis] 5 mg PO BID 09/28/22 04/06/23 History Budesonide/Formoterol Fumarate 2 puff INHALATION RT-BID 09/28/22 04/06/23 History [Symbicort 80-4.5 Mcg Inhaler] HYDROcodone/APAP 7.5-325MG [[place] 1 tab PO BID PRN 09/28/22 04/06/23 History 7.5-325] Magnesium Oxide [Mag-Ox] 400 mg PO BID 09/28/22 04/06/23 History Meclizine [Antivert] 12.5 mg PO TID PRN 09/28/22 04/06/23 History Albuterol Sulfate [Proventil Hfa] 1 puff INHALATION RT-Q6H PRN 11/22/22 04/06/23 History Omeprazole 20 mg PO DAILY 11/22/22 04/06/23 History Glimepiride [Amaryl] 2 mg PO BID 03/29/23 04/06/23 History Furosemide [Lasix] 40 mg PO Q12HR 30 Days #60 tab 04/03/23 04/06/23 Rx Nystatin 100,000 Unit/ml Susp 500,000 unit PO QID 4 Days #160 ml 04/03/23 04/06/23 Rx [Mycostatin Oral Susp] guaiFENesin-DM 600/30MG [Mucinex 2 tab PO Q12HR 04/06/23 04/06/23 History Dm] predniSONE [Deltasone] See Taper PO DIRECTED 04/06/23 04/06/23 History Allergies Allergy/AdvReac Type Severity Reaction Status Date / Time Sulfa (Sulfonamide Allergy Mild Rash/Hives Verified 04/06/23 19:28 Antibiotics) cephalexin [From Keflex] Allergy Unknown Verified 04/06/23 19:28 clopidogrel [From Plavix] Allergy Rash/Hives Verified 04/06/23 19:28 codeine Allergy Rash/Nausea Verified 04/06/23 19:28 & Vomiting Iodine and Iodide Containing Allergy Rash/Hives Verified 04/06/23 19:28 Produc levofloxacin [From Levaquin] Allergy urticaria/r Verified 04/06/23 19:28 belle shellfish derived [Shellfish] Allergy urticaria/r Verified 04/06/23 19:28 belle lisinopril AdvReac Angiodema Verified 04/06/23 19:28 of tongue oxycodone AdvReac Hallucinati Verified 04/06/23 19:28 ons solifenacin AdvReac Nausea & Verified 04/06/23 19:28 Vomiting Physical Exam Vitals: Vital Signs Temp Pulse Pulse Resp BP BP BP 04/07/23 07:47 88 04/07/23 07:35 92 04/07/23 07:00 97.5 F L 90 14 125/85 04/07/23 02:00 98.3 F 88 18 91/57 04/06/23 23:31 18 04/06/23 21:52 98.0 F 85 16 124/76 04/06/23 20:56 84 04/06/23 20:36 88 04/06/23 18:19 101 H 18 04/06/23 18:10 101 H 18 04/06/23 17:51 22 04/06/23 17:46 98.1 F 91 22 121/83 Pulse Ox 04/07/23 07:47 04/07/23 07:35 04/07/23 07:00 94 L 04/07/23 02:00 93 L 04/06/23 23:31 04/06/23 21:52 96 04/06/23 20:56 04/06/23 20:36 04/06/23 18:19 04/06/23 18:10 04/06/23 17:51 04/06/23 17:46 92 L Intake and Output 04/06/23 04/07/23 04/07/23 22:59 06:59 14:59 Intake Total 418 Output Total 1000 Balance -1000 418 Intake: Oral 418 Output: Urine 1000 Other: Voiding Method Urinal Diaper # Voids 3 Weight 99.79 kg 93.1 kg In general patient is alert and oriented x 3 in no distress HEENT head normocephalic and atraumatic Neck is supple no JVD no goiter no lymphadenopathy no carotid bruit Chest examination coarse crackles bilaterally with wheezing Cardiac exam reveals regular heart sounds S1 and S2 no gallops no murmurs Abdomen is soft nontender no organomegaly with normal bowel sounds Extremity exam reveals no edema no cyanosis or clubbing Neurological examination reveals no gross focal deficits Results CBC & Chem 7: 04/06/23 17:56 04/06/23 17:56 Labs: Abnormal Lab Results - Last 24 Hours (Table) 04/06/23 04/06/23 04/06/23 Range/Units 17:56 17:56 23:49 WBC 15.2 H (3.8-10.6) k/uL Plt Count 119 L (150-450) k/uL Neutrophils # 14.2 H (1.3-7.7) k/uL Lymphocytes # 0.4 L (1.0-4.8) k/uL Sodium 131 L (137-145) mmol/L Chloride 97 L (98-107) mmol/L BUN 55 H (9-20) mg/dL Glucose 394 H (74-99) mg/dL POC Glucose (mg/dL) (70-110) mg/dL Hemoglobin A1c (<=6.0) % Plasma Lactic Acid Gideon 2.6 H* (0.7-2.0) mmol/L Calcium 8.1 L (8.4-10.2) mg/dL Total Protein 5.5 L (6.3-8.2) g/dL Albumin 3.0 L (3.5-5.0) g/dL 04/07/23 04/07/23 04/07/23 Range/Units 03:32 03:32 06:16 WBC (3.8-10.6) k/uL Plt Count (150-450) k/uL Neutrophils # (1.3-7.7) k/uL Lymphocytes # (1.0-4.8) k/uL Sodium (137-145) mmol/L Chloride (98-107) mmol/L BUN (9-20) mg/dL Glucose (74-99) mg/dL POC Glucose (mg/dL) 459 H (70-110) mg/dL Hemoglobin A1c 8.2 H (<=6.0) % Plasma Lactic Acid Gideon 2.6 H* (0.7-2.0) mmol/L Calcium (8.4-10.2) mg/dL Total Protein (6.3-8.2) g/dL Albumin (3.5-5.0) g/dL 04/07/23 Range/Units 08:05 WBC (3.8-10.6) k/uL Plt Count (150-450) k/uL Neutrophils # (1.3-7.7) k/uL Lymphocytes # (1.0-4.8) k/uL Sodium (137-145) mmol/L Chloride (98-107) mmol/L BUN (9-20) mg/dL Glucose (74-99) mg/dL POC Glucose (mg/dL) (70-110) mg/dL Hemoglobin A1c (<=6.0) % Plasma Lactic Acid Gideon 2.2 H* (0.7-2.0) mmol/L Calcium (8.4-10.2) mg/dL Total Protein (6.3-8.2) g/dL Albumin (3.5-5.0) g/dL Thrombosis Risk Factor Assmnt - Choose All That Apply Any of the Below Risk Factors Present?: Yes Each Factor Represents 1 point: Obesity (BMI >25) Other Risk Factors: Yes Each Risk Factor Represents 3 Points: Age 75 years or older Other congenital or acquired thrombophilia - If yes, enter type in comment: No Thrombosis Risk Factor Assessment Total Risk Factor Score: 4 Thrombosis Risk Factor Assessment Level: Moderate Risk Assessment and Plan Plan: Acute exacerbation of chronic systolic congestive heart failure Acute exacerbation of chronic obstructive pulmonary disease Acute purulent bronchitis Possible sepsis as evidenced by leukocytosis and elevated lactic acid Underlying history of moderate aortic stenosis Underlying history of severe pulmonary hypertension Underlying history of coronary artery disease with history of coronary artery bypass graft surgery Underlying history of hypertension Underlying history of hyperlipidemia Underlying history of insulin-dependent diabetes mellitus Underlying history of chronic atrial fibrillation Underlying history of chronic kidney disease stage III At this time patient was seen and examined on the telemetry floor Home medications reviewed and reordered Patient was started on IV antibiotic Rocephin and Zithromax Consultation for cardiology pulmonary and infectious disease initiated Prognosis is guarded will continue to follow closely
[2023-04-07] MEDS: GABAPENTIN 400 MG CAP PO SCH ×3 (13:39→21:29)
[2023-04-07] MEDS: NYSTATIN 100,000 UNIT/ML SUSP 500,000 UNIT/5 ML CUP PO SCH ×3 (13:41→21:28)
[2023-04-07] MEDS: AZITHROMYCIN 500 MG in SODIUM CHLORIDE 0.9% 250 ML IVPB SCH (13:41)
[2023-04-07 17:28] LABS: Glucose,Whole Blood 366 mg/dL (70-110)
[2023-04-07] MEDS ORDERED: SYMBICORT 80-4.5 MCG INHALER INHALATION SCH (20:00)
[2023-04-07] MEDS: guaiFENesin-DM 600/30MG 1 EACH TAB.ER.12H PO SCH (20:32)
[2023-04-07] MEDS: ATORVASTATIN 40 MG TAB PO SCH (20:32)
[2023-04-07 20:48] LABS: Glucose,Whole Blood 435 mg/dL (70-110)
[2023-04-07] MEDS ORDERED: INSULIN ASPART (NovoLOG) 100 UNIT/ML VIAL SQ ONE (21:00)
[2023-04-07] MEDS ORDERED: FUROSEMIDE 40 MG TAB PO SCH (21:00)
--- NOTE | 2023-04-07 22:48 | P.CONS ---
History of Present Illness - Reason for Consult Consult date: 04/07/23 - History of Present Illness Patient is a 77-year-old male with a past medical history significant for COPD congestive heart failure with moderate aortic stenosis pulmonary hypertension chronic kidney disease hypertension hyperlipidemia recently admitted to hospital and treated for COPD/CHF exacerbation presenting back to the hospital within 3 days concerning for increasing shortness of breath patient complaining of shortness of breath on minimal exertion and at rest patient also have a cough which is moderate in intensity with occasional sputum production no hemoptysis no pleuritic chest pain no nausea vomiting no choking or for abdominal pain or any diarrhea patient on presentation to the hospital was a febrile and no fever have recorded subsequently patient did have vital 15.2 with a left shift lactic acid was elevated 3.2 creatinine is 4.18 there was in the normal patient did have a chest x-ray cardiomegaly with mild pulmonary vascular congestion patient was started on Rocephin and Zithromax concerning for possible sepsis infectious he was consulted for further management of antibiotic therapy patient did mention that he did have similar episode back in December 2022 for the patient was treated with antibiotic therapy subsequently has been out of the hospital for 2 months Past Medical History Past Medical History: Atrial Fibrillation, Coronary Artery Disease (CAD), Heart Failure, COPD, CVA/TIA, Diabetes Mellitus, Hypertension, Myocardial Infarction ([place]) Additional Past Medical History / Comment(s): left knee cap broken, pa ncreatitis, /gallstones, Patient reports having stroke like symptoms after injection in knee, Last Myocardial Infarction Date:: 2017 History of Any Multi-Drug Resistant Organisms: MRSA Year Discovered:: 10/01/22 MDRO Source:: Sputum Past Surgical History: Cholecystectomy, Coronary Bypass/CABG, Heart Catheterization With Stent, Hernia Repair, Orthopedic Surgery Additional Past Surgical History / Comment(s): lt knee replacement(total of 4 sx), colonoscopy, Left knee cap removal with antibiotic spacers placed, Past Anesthesia/Blood Transfusion Reactions: No Reported Reaction Date of Last Stent Placement:: 10/2015 Past Psychological History: No Psychological Hx Reported Additional Psychological History / Comment(s): Pt resides with his spouse. He uses a walker to ambulate. Smoking Status: Former smoker Past Alcohol Use History: Occasional Additional Past Alcohol Use History / Comment(s): Pt started smoking as teen and quit 1983 smoked 2 ppd. Pt usually has one drink a night. Past Drug Use History: None Reported - Past Family History Father Family Medical History: Diabetes Mellitus Mother Family Medical History: CVA/TIA, Hypertension Medications and Allergies Home Medications Medication Instructions Recorded Confirmed Type allopurinoL [Zyloprim] 300 mg PO DAILY 08/07/17 04/06/23 History Gabapentin 1,200 mg PO TID@1400,1800,2200 10/02/18 04/06/23 History Levothyroxine Sodium [Synthroid] 112 mcg PO DAILY 10/02/18 04/06/23 History Levothyroxine Sodium [Synthroid] 125 mcg PO DAILY 10/02/18 04/06/23 History Nitroglycerin Sl Tabs [Nitrostat] 0.4 mg SL Q5M PRN 10/02/18 04/06/23 History carvediloL [Coreg] 6.25 mg PO BID-W/MEALS 03/17/21 04/06/23 History Atorvastatin [Lipitor] 40 mg PO HS 10/19/21 04/06/23 History Apixaban [Eliquis] 5 mg PO BID 09/28/22 04/06/23 History Budesonide/Formoterol Fumarate 2 puff INHALATION RT-BID 09/28/22 04/06/23 History [Symbicort 80-4.5 Mcg Inhaler] HYDROcodone/APAP 7.5-325MG [[place] 1 tab PO BID PRN 09/28/22 04/06/23 History 7.5-325] Magnesium Oxide [Mag-Ox] 400 mg PO BID 09/28/22 04/06/23 History Meclizine [Antivert] 12.5 mg PO TID PRN 09/28/22 04/06/23 History Albuterol Sulfate [Proventil Hfa] 1 puff INHALATION RT-Q6H PRN 11/22/22 04/06/23 History Omeprazole 20 mg PO DAILY 11/22/22 04/06/23 History Glimepiride [Amaryl] 2 mg PO BID 03/29/23 04/06/23 History Furosemide [Lasix] 40 mg PO Q12HR 30 Days #60 tab 04/03/23 04/06/23 Rx Nystatin 100,000 Unit/ml Susp 500,000 unit PO QID 4 Days #160 ml 04/03/23 04/06/23 Rx [Mycostatin Oral Susp] guaiFENesin-DM 600/30MG [Mucinex 2 tab PO Q12HR 04/06/23 04/06/23 History Dm] predniSONE [Deltasone] See Taper PO DIRECTED 04/06/23 04/06/23 History Allergies Allergy/AdvReac Type Severity Reaction Status Date / Time Sulfa (Sulfonamide Allergy Mild Rash/Hives Verified 04/06/23 19:28 Antibiotics) cephalexin [From Keflex] Allergy Unknown Verified 04/06/23 19:28 clopidogrel [From Plavix] Allergy Rash/Hives Verified 04/06/23 19:28 codeine Allergy Rash/Nausea Verified 04/06/23 19:28 & Vomiting Iodine and Iodide Containing Allergy Rash/Hives Verified 04/06/23 19:28 Produc levofloxacin [From Levaquin] Allergy urticaria/r Verified 04/06/23 19:28 belle shellfish derived [Shellfish] Allergy urticaria/r Verified 04/06/23 19:28 belle lisinopril AdvReac Angiodema Verified 04/06/23 19:28 of tongue oxycodone AdvReac Hallucinati Verified 04/06/23 19:28 ons solifenacin AdvReac Nausea & Verified 04/06/23 19:28 Vomiting Physical Exam Vitals: Vital Signs Temp Pulse Pulse Resp BP BP BP 04/07/23 11:45 97.6 F 68 74 18 114/74 04/07/23 11:31 72 04/07/23 07:47 88 04/07/23 07:35 92 04/07/23 07:00 97.5 F L 90 14 125/85 04/07/23 02:00 98.3 F 88 18 91/57 04/06/23 23:31 18 04/06/23 21:52 98.0 F 85 16 124/76 04/06/23 20:56 84 04/06/23 20:36 88 04/06/23 18:19 101 H 18 04/06/23 18:10 101 H 18 04/06/23 17:51 22 04/06/23 17:46 98.1 F 91 22 121/83 Pulse Ox 04/07/23 11:45 98 04/07/23 11:31 04/07/23 07:47 04/07/23 07:35 04/07/23 07:00 94 L 04/07/23 02:00 93 L 04/06/23 23:31 04/06/23 21:52 96 04/06/23 20:56 04/06/23 20:36 04/06/23 18:19 04/06/23 18:10 04/06/23 17:51 04/06/23 17:46 92 L Intake and Output 04/06/23 04/07/23 04/07/23 22:59 06:59 14:59 Intake Total 418 Output Total 1000 Balance -1000 418 Intake: Oral 418 Output: Urine 1000 Other: Voiding Method Urinal Diaper # Voids 3 Weight 99.79 kg 93.1 kg Results CBC & Chem 7: 04/06/23 17:56 04/06/23 17:56 Labs: Abnormal Lab Results - Last 24 Hours (Table) 04/06/23 04/06/23 04/06/23 Range/Units 17:56 17:56 23:49 WBC 15.2 H (3.8-10.6) k/uL Plt Count 119 L (150-450) k/uL Neutrophils # 14.2 H (1.3-7.7) k/uL Lymphocytes # 0.4 L (1.0-4.8) k/uL Sodium 131 L (137-145) mmol/L Chloride 97 L (98-107) mmol/L BUN 55 H (9-20) mg/dL Glucose 394 H (74-99) mg/dL POC Glucose (mg/dL) (70-110) mg/dL Hemoglobin A1c (<=6.0) % Plasma Lactic Acid Gideon 2.6 H* (0.7-2.0) mmol/L Calcium 8.1 L (8.4-10.2) mg/dL Total Protein 5.5 L (6.3-8.2) g/dL Albumin 3.0 L (3.5-5.0) g/dL Procalcitonin (0.02-0.09) ng/mL 04/07/23 04/07/23 04/07/23 Range/Units 03:32 03:32 06:16 WBC (3.8-10.6) k/uL Plt Count (150-450) k/uL Neutrophils # (1.3-7.7) k/uL Lymphocytes # (1.0-4.8) k/uL Sodium (137-145) mmol/L Chloride (98-107) mmol/L BUN (9-20) mg/dL Glucose (74-99) mg/dL POC Glucose (mg/dL) 459 H (70-110) mg/dL Hemoglobin A1c 8.2 H (<=6.0) % Plasma Lactic Acid Gideon 2.6 H* (0.7-2.0) mmol/L Calcium (8.4-10.2) mg/dL Total Protein (6.3-8.2) g/dL Albumin (3.5-5.0) g/dL Procalcitonin (0.02-0.09) ng/mL 04/07/23 04/07/23 04/07/23 Range/Units 08:05 08:05 11:00 WBC (3.8-10.6) k/uL Plt Count (150-450) k/uL Neutrophils # (1.3-7.7) k/uL Lymphocytes # (1.0-4.8) k/uL Sodium (137-145) mmol/L Chloride (98-107) mmol/L BUN (9-20) mg/dL Glucose (74-99) mg/dL POC Glucose (mg/dL) (70-110) mg/dL Hemoglobin A1c (<=6.0) % Plasma Lactic Acid Gideon 2.2 H* 3.9 H* (0.7-2.0) mmol/L Calcium (8.4-10.2) mg/dL Total Protein (6.3-8.2) g/dL Albumin (3.5-5.0) g/dL Procalcitonin 0.10 H (0.02-0.09) ng/mL 04/07/23 Range/Units 12:08 WBC (3.8-10.6) k/uL Plt Count (150-450) k/uL Neutrophils # (1.3-7.7) k/uL Lymphocytes # (1.0-4.8) k/uL Sodium (137-145) mmol/L Chloride (98-107) mmol/L BUN (9-20) mg/dL Glucose (74-99) mg/dL POC Glucose (mg/dL) 418 H (70-110) mg/dL Hemoglobin A1c (<=6.0) % Plasma Lactic Acid Gideon (0.7-2.0) mmol/L Calcium (8.4-10.2) mg/dL Total Protein (6.3-8.2) g/dL Albumin (3.5-5.0) g/dL Procalcitonin (0.02-0.09) ng/mL Assessment and Plan Plan: 1patient presented hospital with increasing shortness of breath and cough which is likely multifactorial likely related to underlying COPD exacerbation and tracheobronchitis pneumonia less likely but not entirely excluded 2-we will obtain sputum for Gram stain and culture check CRP and a procalcitonin level 3-continue with Rocephin and Zithromax while waiting for the work-up to be completed We will follow on clinical condition and cultures to further adjust medication if needed Thank you for this consultation we will follow the patient along with you Time with Patient: Greater than 30
[2023-04-08] MEDS: NITROGLYCERIN OINT 1 INCH/GM PACKET TOPICAL SCH (00:14)
[2023-04-08] MEDS: methylPREDNISolone SOD SUCCI 125 MG/2 ML VIAL IV SCH ×4 (00:35→17:54)
[2023-04-08 06:09] LABS: Glucose,Whole Blood 314 mg/dL (70-110)
[2023-04-08] MEDS: INSULIN ASPART (NovoLOG) 100 UNIT/ML VIAL SQ SCH ×4 (06:35→21:24)
[2023-04-08 06:45] LABS: Basophils % (A) 0 %; Eosinophils % (A) 0 %; HCT 45.5 % (39.0-53.0); HGB 14.8 gm/dL (13.0-17.5); Lymphocytes # (A) 0.4 k/uL (1.0-4.8); Lymphocytes % (A) 2 %; MCH 31.5 pg (25.0-35.0); MCHC 32.6 g/dL (31.0-37.0); MCV 96.8 fL (80.0-100.0); Mean Platelet Volume 8.5; Monocytes # (A) 0.3 k/uL (0-1.0); Monocytes % (A) 2 %; Neutrophils # (A) 15.6 k/uL (1.3-7.7); Neutrophils % (A) 95 %; Platelet Count 119 k/uL (150-450); RDW 15.2 % (11.5-15.5); WBC 16.5 k/uL (3.8-10.6)
[2023-04-08 07:00] LABS: ALT 25 U/L (4-49); AST 17 U/L (17-59); African American GFR (CKD) 66 (>60 ml/min/1.73 sqM); Albumin 2.8 g/dL (3.5-5.0); Albumin/Globulin Ratio 1.1; Alkaline Phosphatase 60 U/L (38-126); Anion Gap 9 mmol/L; Blood Urea Nitrogen 55 mg/dL (9-20); Calcium 8.4 mg/dL (8.4-10.2); Carbon Dioxide 28 mmol/L (22-30); Chloride 97 mmol/L (98-107); Globulin 2.5 g/dL; Glucose 315 mg/dL (74-99); Non-African American GFR(CKD) 57 (>60 ml/min/1.73 sqM); Potassium 3.8 mmol/L (3.5-5.1); Sodium 134 mmol/L (137-145); Total Bilirubin 0.8 mg/dL (0.2-1.3); Total Protein 5.3 g/dL (6.3-8.2)
[2023-04-08] MEDS ORDERED: INSULIN DETEMIR (LEVEMIR) 100 UNIT/ML SYR SQ SCH (07:00)
[2023-04-08 07:05] LABS: C Reactive Protein <0.5 mg/dL (<1.0)
[2023-04-08] MEDS: IPRATROPIUM-ALBUTEROL 3 ML NEB INHALATION SCH ×3 (07:58→16:18)
[2023-04-08] MEDS: SYMBICORT 160-4.5 MCG INHALER INHALATION SCH (07:58)
[2023-04-08] MEDS: MAGNESIUM OXIDE 400 MG TAB PO SCH ×2 (09:25→21:07)
[2023-04-08] MEDS: PANTOPRAZOLE 40 MG TABLET PO SCH (09:25)
[2023-04-08] MEDS: APIXABAN 5 MG TAB PO SCH ×2 (09:25→21:08)
[2023-04-08] MEDS: ASPIRIN 81 MG PO SCH (09:25)
[2023-04-08] MEDS: allopurinoL 300 MG TAB PO SCH (09:25)
[2023-04-08] MEDS: carvediloL 6.25 MG TAB PO SCH ×2 (09:26→17:54)
--- NOTE | 2023-04-08 09:33 | P.PN ---
Subjective Progress Note Date: 04/08/23 HISTORY OF PRESENT ILLNESS: This is a 77-year-old male with a past medical history significant for coronary artery disease with previous CABG with LINDSEY to LAD, PCI of the ostium of the circumflex, left main, and RCA, atrial fibrillation, systolic systolic heart failure, diabetes, hypertension, and hyperlipidemia. Patient follows in the office with Dr. Vazquez. We have been asked to see the patient in consultation for SOB/congestive heart failure. Unfortunately patient has been having frequent admissions or last 6 months. He was just discharged 5 days ago and treated for COPD as well as heart failure. Had attempted to add RCA however apparently this was not covered. Patient does however believe [facility] He states he felt "medium" in terms of somewhat better when he went home however developed progressive shortness of breath. He admits that if he is sitting upright he will feel better however cannot lie flat more than 45 degrees without being short of breath. Does have a mild cough and denies any fevers or chills however does have somewhat of a wheeze. He has been treated for COPD and states he had Agent [place] exposure in [place]. EKG reveals atrial fibrillation with mild RVR Right bundle branch block. Denies any chest pain or pressure. He was di scharged home on prednisone and does have leukocytosis with white blood cell count 15. Prior echoes have been in the range of 20-25% up to 30-35%. He has not had any defibrillator. He has been unable to tolerate much heart failure regimen with patient being on Midodrine. 04/08 Patient is seen today in follow-up. He states he is still wheezing a lot but a little bit better since he came in the hospital. He was seen this morning by pulmonary medicine with plan for bronchoscopy tomorrow. He is continued on IV Lasix 80 mg every 12 hours. He continues to have a cough and also followed by Dr. Garcia on IV antibiotics with ceftriaxone. Regarding AICD, patient understands that more information is to be obtained and discussed with him prior to moving forward. Patient also needs to be stabilized from pulmonary standpoint as well. Patient has been afebrile, heart rate in the 80s and 90s, b lood pressure 126/82, pulse ox 96% on room air. Repeat blood work reveals WBC 16.5, hemoglobin 14.8, platelet count 119. Sodium 134, potassium 3.8, chloride 97, CO2 28, BUN 55 creatinine 1.21. Blood sugars are in the 300s and 400s. PHYSICAL EXAM: VITAL SIGNS: Reviewed. GENERAL: Well-developed in no acute distress. HEENT: Head is normocephalic. Pupils are equal, round. Sclerae anicteric. Mucous membranes of the mouth are moist. Neck supple. No JVD or thyromegaly LUNGS: Respirations even and unlabored. Lungs diminished at the bases with expiratory wheezing noted. HEART: Irregular rate and rhythm. S1 and S2 heard. + 2/6 systolic murmur ABDOMEN: Soft. Nondistended. Nontender. EXTREMITIES: Normal range of motion. No clubbing or cyanosis. Peripheral pulses intact. No lower extremity edema. NEUROLOGIC: Awake and alert. Oriented x 3. ASSESSMENT: Acute on chronic heart failure with reduced EF variable 20-35% range COPD Coronary artery disease with previous CABG with LINDSEY to LAD, PCI of the ostium of the circumflex, left main, and RCA Ischemic cardiomyopathy Persistent atrial fibrillation, on Eliquis, mild RVR on presentation Mild to moderate aortic stenosis Hypertension Hyperlipidemia Diabetes Leukocytosis likely related to steroids PLAN: Patient unable to tolerate much heart failure regimen and continue with carvedilol mainly for heart rate control. Continue IV Lasix currently at 80 mg every 12 hours, monitor I&O, weight, electrolytes and renal function. Continue other cardiac medications. No need to repeat echo. Prior echo showing more mild to moderate aortic st enosis and only a 2/6 systolic murmur. Patient believes seem may be able [facility] and attempt to facilitate. Patient would likely be a good candidate for biventricular AICD with AV jimmie ablation for management of his A. fib and may help with heart failure symptoms with widening QRS. This can be arranged outpt. Further recommendations pending patient course Nurse practitioner note has been reviewed, I agree with the documented findings and plan of care. Patient was seen and examined. Objective - Vital Signs Vital signs: Vital Signs Temp 97.7 F 04/08/23 02:00 Pulse 85 04/08/23 02:00 Resp 16 04/08/23 02:00 BP 112/71 04/08/23 02:00 Pulse Ox 93 L 04/08/23 02:00 FiO2 Intake & Output 04/07/23 04/08/2304/08/23 18:59 06:59 18:59 Intake Total 639 Output Total 1650 1650 Balance -1011 -1650 Weight 99.9 kg Intake: Oral 639 Output: Urine 1650 1650 Other: Voiding Method Urinal # Voids 7 2 # Bowel Movements 1 - Labs CBC & Chem 7: 04/08/23 05:57 04/08/23 05:57 Labs: Abnormal Lab Results - Last 24 Hours (Table) 04/07/23 04/07/23 04/07/23 Range/Units 03:32 08:05 08:05 WBC (3.8-10.6) k/uL Plt Count (150-450) k/uL Neutrophils # (1.3-7.7) k/uL Lymphocytes # (1.0-4.8) k/uL Sodium (137-145) mmol/L Chloride (98-107) mmol/L BUN (9-20) mg/dL Glucose (74-99) mg/dL POC Glucose (mg/dL) (70-110) mg/dL Hemoglobin A1c 8.2 H (<=6.0) % Plasma Lactic Acid Gideon 2.2 H* (0.7-2.0) mmol/L Total Protein (6.3-8.2) g/dL Albumin (3.5-5.0) g/dL Procalcitonin 0.10 H (0.02-0.09) ng/mL 04/07/23 04/07/23 04/07/23 Range/Units 11:00 12:08 14:05 WBC (3.8-10.6) k/uL Plt Count (150-450) k/uL Neutrophils # (1.3-7.7) k/uL Lymphocytes # (1.0-4.8) k/uL Sodium (137-145) mmol/L Chloride (98-107) mmol/L BUN (9-20) mg/dL Glucose (74-99) mg/dL POC Glucose (mg/dL) 418 H (70-110) mg/dL Hemoglobin A1c (<=6.0) % Plasma Lactic Acid Gideon 3.9 H* 3.2 H* (0.7-2.0) mmol/L Total Protein (6.3-8.2) g/dL Albumin (3.5-5.0) g/dL Procalcitonin (0.02-0.09) ng/mL 04/07/23 04/07/23 04/08/23 Range/Units 17:27 20:45 05:57 WBC 16.5 H (3.8-10.6) k/uL Plt Count 119 L (150-450) k/uL Neutrophils # 15.6 H (1.3-7.7) k/uL Lymphocytes # 0.4 L (1.0-4.8) k/uL Sodium (137-145) mmol/L Chloride (98-107) mmol/L BUN (9-20) mg/dL Glucose (74-99) mg/dL POC Glucose (mg/dL) 366 H 435 H (70-110) mg/dL Hemoglobin A1c (<=6.0) % Plasma Lactic Acid Gideon (0.7-2.0) mmol/L Total Protein (6.3-8.2) g/dL Albumin (3.5-5.0) g/dL Procalcitonin (0.02-0.09) ng/mL 04/08/23 04/08/23 Range/Units 05:57 06:07 WBC (3.8-10.6) k/uL Plt Count (150-450) k/uL Neutrophils # (1.3-7.7) k/uL Lymphocytes # (1.0-4.8) k/uL Sodium 134 L (137-145) mmol/L Chloride 97 L (98-107) mmol/L BUN 55 H (9-20) mg/dL Glucose 315 H (74-99) mg/dL POC Glucose (mg/dL) 314 H (70-110) mg/dL Hemoglobin A1c (<=6.0) % Plasma Lactic Acid Gideon (0.7-2.0) mmol/L Total Protein 5.3 L (6.3-8.2) g/dL Albumin 2.8 L (3.5-5.0) g/dL Procalcitonin (0.02-0.09) ng/mL
[2023-04-08] MEDS: guaiFENesin-DM 600/30MG 1 EACH TAB.ER.12H PO SCH ×2 (09:36→21:09)
[2023-04-08] MEDS: FUROSEMIDE 10 MG/ML 10 ML VIAL IV SCH ×2 (09:36→21:07)
[2023-04-08] MEDS: LEVOTHYROXINE 112 MCG TAB PO SCH (09:37)
[2023-04-08] MEDS: GLIMEPIRIDE 2 MG TAB PO SCH ×2 (09:37→21:08)
[2023-04-08] MEDS: DAPAGLIFLOZIN PROPANEDIOL 10 MG TABLET PO SCH (09:37)
[2023-04-08] MEDS: NYSTATIN 100,000 UNIT/ML SUSP 500,000 UNIT/5 ML CUP PO SCH ×4 (09:37→21:08)
[2023-04-08] MEDS: LEVOTHYROXINE 125 MCG TAB PO SCH (09:37)
[2023-04-08] MEDS: AZITHROMYCIN 500 MG in SODIUM CHLORIDE 0.9% 250 ML IVPB SCH (10:17)
--- NOTE | 2023-04-08 10:53 | P.PN ---
Subjective Progress Note Date: 04/08/23 Patrick Banuelos, is a 77-year-old male who presented to [facility] emergency room with a chief complaint of worsening shortness of breath, patient was recently admitted to the hospital, with similar complaint, at that time he was diagnosed with acute exacerbation of COPD and acute exacerbation of congestive heart failure, he was treated with IV Lasix IV steroids and inhaled bronchodilators, he was seen by pulmonary and cardiology during that admission, he improved and was discharged home, however patient's symptoms recurred and were worsening, he was only able to walk a few steps without having severe shortness of breath and he decided to come back to emergency room. He was evaluated in the emergency room vital examination on presentation revealed a temperature of 98.1 pulse 91 respiration 22 blood pressure 121/83 pulse ox 92% on room air Laboratory data revealed a white blood count of 15.2 hemoglobin 14.8 platelet count 119 sodium 131 BUN 55 creatinine 1.18 glucose level 394 lactic acid was elevated at 2.6 BNP 3400 Testing in the emergency room revealed chest x-ray done in the emergency room revealed cardiomegaly with mild pulmonary vascular congestion Patient was admitted to medical floor for further evaluation and treatment On review of systems patient is complaining of cough and shortness of breath otherwise he denies any complaints there is no fever or chills no headache or dizziness no chest pain no palpitation no nausea or vomiting no abdominal pain no diarrhea no blood in the stools no burning with urination no frequency or urgency and no hematuria. On 04/08/2023 patient is alert and oriented times. Patient still requiring some shortness of breath currently taking Rocephin and azithromycin. Patient was maintained on IV Lasix, IV Solu-Medrol and DuoNeb breathing treatments. Cardiology, pulmonary and infectious disease services are following. Vital signs temp 97.4, heart rate 94, respiratory 17, blood pressure 126/82 with a pulse ox 96% on room air. Objective - Vital Signs Vital signs: Vital Signs Temp 97.4 F L 04/08/23 06:50 Pulse 92 04/08/23 08:11 Resp 17 04/08/23 06:50 BP 126/82 04/08/23 06:50 Pulse Ox 95 04/08/23 08:02 FiO2 Intake & Output 06/11/23 06/12/23 06/12/23 18:59 06:59 18:59 Intake Total 639 118 Output Total 1650 1650 Balance -1011 -1650 118 Weight 99.9 kg Intake: Oral 639 118 Output: Urine 1650 1650 Other: Voiding Method Urinal # Voids 7 2 # Bowel Movements 1 - Exam In general patient is alert and oriented x 3 in no distress HEENT head normocephalic and atraumatic Neck is supple no JVD no goiter no lymphadenopathy no carotid bruit Chest examination coarse crackles bilaterally with wheezing Cardiac exam reveals regular heart sounds S1 and S2 no gallops no murmurs Abdomen is soft nontender no organomegaly with normal bowel sounds Extremity exam reveals no edema no cyanosis or clubbing Neurological examination reveals no gross focal deficits - Labs CBC & Chem 7: 04/08/23 05:57 04/08/23 05:57 Labs: Abnormal Lab Results - Last 24 Hours (Table) 04/07/23 04/07/23 04/07/23 Range/Units 08:05 11:00 12:08 WBC (3.8-10.6) k/uL Plt Count (150-450) k/uL Neutrophils # (1.3-7.7) k/uL Lymphocytes # (1.0-4.8) k/uL Sodium (137-145) mmol/L Chloride (98-107) mmol/L BUN (9-20) mg/dL Glucose (74-99) mg/dL POC Glucose (mg/dL) 418 H (70-110) mg/dL Plasma Lactic Acid Gideon 3.9 H* (0.7-2.0) mmol/L Total Protein (6.3-8.2) g/dL Albumin (3.5-5.0) g/dL Procalcitonin 0.10 H (0.02-0.09) ng/mL 04/07/23 04/07/23 04/07/23 Range/Units 14:05 17:27 20:45 WBC (3.8-10.6) k/uL Plt Count (150-450) k/uL Neutrophils # (1.3-7.7) k/uL Lymphocytes # (1.0-4.8) k/uL Sodium (137-145) mmol/L Chloride (98-107) mmol/L BUN (9-20) mg/dL Glucose (74-99) mg/dL POC Glucose (mg/dL) 366 H 435 H (70-110) mg/dL Plasma Lactic Acid Gideon 3.2 H* (0.7-2.0) mmol/L Total Protein (6.3-8.2) g/dL Albumin (3.5-5.0) g/dL Procalcitonin (0.02-0.09) ng/mL 04/08/23 04/08/23 04/08/23 Range/Units 05:57 05:57 06:07 WBC 16.5 H (3.8-10.6) k/uL Plt Count 119 L (150-450) k/uL Neutrophils # 15.6 H (1.3-7.7) k/uL Lymphocytes # 0.4 L (1.0-4.8) k/uL Sodium 134 L (137-145) mmol/L Chloride 97 L (98-107) mmol/L BUN 55 H (9-20) mg/dL Glucose 315 H (74-99) mg/dL POC Glucose (mg/dL) 314 H (70-110) mg/dL Plasma Lactic Acid Gideon (0.7-2.0) mmol/L Total Protein 5.3 L (6.3-8.2) g/dL Albumin 2.8 L (3.5-5.0) g/dL Procalcitonin (0.02-0.09) ng/mL Assessment and Plan Plan: Acute exacerbation of chronic systolic congestive heart failure Acute exacerbation of chronic obstructive pulmonary disease Acute purulent bronchitis Possible sepsis as evidenced by leukocytosis and elevated lactic acid Underlying history of moderate aortic stenosis Underlying history of severe pulmonary hypertension Underlying history of coronary artery disease with history of coronary artery b ypass graft surgery Underlying history of hypertension Underlying history of hyperlipidemia Underlying history of insulin-dependent diabetes mellitus Underlying history of chronic atrial fibrillation Underlying history of chronic kidney disease stage III At this time patient was seen and examined on the telemetry floor Home medications reviewed and reordered Patient was started on IV antibiotic Rocephin and Zithromax Consultation for cardiology pulmonary and infectious disease initiated Prognosis is guarded will continue to follow closely
[2023-04-08] MEDS ORDERED: LIDOCAINE 1% (10MG/ML) FOR IV START INTRADERMA PRN (11:18)
--- NOTE | 2023-04-08 11:53 | P.PN ---
Subjective Progress Note Date: 04/08/23 This is a pleasant 77-year-old male patient with a history of chronic obstructive pulmonary disease, chronic systolic congestive heart failure with ejection fraction 20-25%, moderate aortic stenosis, severe pulmonary hypertension, chronic kidney disease stage III, coronary artery disease with previous coronary artery bypass grafting and stent placements, hypothyroidism, hyperlipidemia, chronic atrial fibrillation anticoagulated with Eliquis, history of gallstone pancreatitis. He has had frequent admissions to the hospital for his multiple comorbidities. He was just discharged again on 04/03/2023 f ollowing his COPD/CHF exacerbation. He came back to the hospital on 04/06/2023 with worsening shortness of breath, cough and congestion. Chest x-ray shows evidence of cardiomegaly with mild pulmonary vascular congestion. EKG reveals atrial fibrillation with varying ventricular response. White count 15.2. Hemoglobin 14.8. Platelets 119. Sodium 131. Potassium 4.4. Bicarb 20. BUN 55. Creatinine 1.18. Glucose 394. Lactic acid 2.2. Troponin negative times one. ProBNP 3400. The patient is seen today 04/08/2023 in follow-up on the regular medical floor. He is currently sitting up in a chair at the bedside. Awake and alert in no acute distress. He is maintaining O2 saturations in the 90s on room air. No IV fluids. White count 16.5. Hemoglobin 14.8. Platelets 119. Sodium 134. Potassium 3.8. Bicarb 28. BUN 55. Creatinine 1.21. Glucose 315. He remains on IV diuretics. Currently in a -2.6 L balance. Remains on DuoNeb inhalations, Symbicort, IV Solu-Medrol. Antibiotics in the form of ceftriaxone and azithromycin. Pro-calcitonin was 0.10. Objective - Vital Signs Vital signs: Vital Signs Temp 97.4 F L 04/08/23 06:50 Pulse 92 04/08/23 08:11 Resp 17 04/08/23 06:50 BP 126/82 04/08/23 06:50 Pulse Ox 95 04/08/23 08:02 FiO2 Intake & Output 04/07/23 04/08/23 04/08/23 18:59 06:59 18:59 Intake Total 639 118 Output Total 1650 1650 Balance -1011 -1650 118 Weight 99.9 kg Intake: Oral 639 118 Output: Urine 1650 1650 Other: Voiding Method Urinal # Voids 7 2 # Bowel Movements 1 - Exam GENERAL EXAM: Alert, 77-year-old male, on room air, comfortable in no apparent distress. HEAD: Normocephalic. EYES: Normal reaction of pupils, equal size. NOSE: Clear with pink turbinates. THROAT: No erythema or exudates. NECK: No masses, no JVD. CHEST: No chest wall deformity. LUNGS: Equal air entry with bilateral expiratory wheeze, crackles in the posterior bases, diminished. CVS: S1 and S2 normal with no audible murmur, regular rhythm. ABDOMEN: No hepatosplenomegaly, normal bowel sounds, no guarding or rigidity. SPINE: No scoliosis or deformity SKIN: No rashes CENTRAL NERVOUS SYSTEM: No focal deficits, tone is normal in all 4 extremities. EXTREMITIES: There is 1-2+ peripheral edema. No clubbing, no cyanosis. Peripheral pulses are intact. - Labs CBC & Chem 7: 04/08/23 05:57 04/08/23 05:57 Labs: Abnormal Lab Results - Last 24 Hours (Table) 04/07/23 04/07/23 04/07/23 Range/Units 08:05 12:08 14:05 WBC (3.8-10.6) k/uL Plt Count (150-450) k/uL Neutrophils # (1.3-7.7) k/uL Lymphocytes # (1.0-4.8) k/uL Sodium (137-145) mmol/L Chloride (98-107) mmol/L BUN (9-20) mg/dL Glucose (74-99) mg/dL POC Glucose (mg/dL) 418 H (70-110) mg/dL Plasma Lactic Acid Gideon 3.2 H* (0.7-2.0) mmol/L Total Protein (6.3-8.2) g/dL Albumin (3.5-5.0) g/dL Procalcitonin 0.10 H (0.02-0.09) ng/mL 04/07/23 04/07/23 04/08/23 Range/Units 17:27 20:45 05:57 WBC 16.5 H (3.8-10.6) k/uL Plt Count 119 L (150-450) k/uL Neutrophils # 15.6 H (1.3-7.7) k/uL Lymphocytes # 0.4 L (1.0-4.8) k/uL Sodium (137-145) mmol/L Chloride (98-107) mmol/L BUN (9-20) mg/dL Glucose (74-99) mg/dL POC Glucose (mg/dL) 366 H 435 H (70-110) mg/dL Plasma Lactic Acid Gideon (0.7-2.0) mmol/L Total Protein (6.3-8.2) g/dL Albumin (3.5-5.0) g/dL Procalcitonin (0.02-0.09) ng/mL 04/08/23 04/08/23 Range/Units 05:57 06:07 WBC (3.8-10.6) k/uL Plt Count (150-450) k/uL Neutrophils # (1.3-7.7) k/uL Lymphocytes # (1.0-4.8) k/uL Sodium 134 L (137-145) mmol/L Chloride 97 L (98-107) mmol/L BUN 55 H (9-20) mg/dL Glucose 315 H (74-99) mg/dL POC Glucose (mg/dL) 314 H (70-110) mg/dL Plasma Lactic Acid Gideon (0.7-2.0) mmol/L Total Protein 5.3 L (6.3-8.2) g/dL Albumin 2.8 L (3.5-5.0) g/dL Procalcitonin (0.02-0.09) ng/mL Assessment and Plan Assessment: Acute exacerbation of chronic systolic congestive heart failure with elevated proBNP level and increased vessel markings and the patient is currently on IV Lasix Acute exacerbation of chronic obstructive pulmonary disease Recent discharge on 04/03/2023 secondary to above History of systolic heart failure with ejection fraction of 20-25% Moderate degree of aortic stenosis and severe pulmonary hypertension as noted on a previous echocardiogram that was done in December 2022 Chronic stage III kidney disease, creatinine is stable for now Former smoker Coronary artery disease with previous bypass surgery and previous coronary intervention and stenting Hypothyroidism Hyperlipidemia Chronic atrial fibrillation. The patient is currently on long-term anticoagulation with Eliquis History of gallstone pancreatitis Poor overall functional performance based on the above-mentioned multiple comorbidities Plan: The patient was seen and evaluated Labs and medications reviewed Continue DuoNeb inhalations, Symbicort, Solu-Medrol Continue with IV diuretics ProCalcitonin 0.10. Continue antibiotics We will plan for bronchoscopy with BAL in a.m. We will continue to follow I have personally seen and examined the patient, performed the documentation and the assessment and plan as written. Number of minutes spent on the visit: 10.
[2023-04-08 12:04] LABS: Glucose,Whole Blood 297 mg/dL (70-110)
[2023-04-08] MEDS: LACTATED RINGERS 1,000 ML IV SCH (13:11)
[2023-04-08 13:21] VITALS: BMI 40.2
[2023-04-08] MEDS: GABAPENTIN 400 MG CAP PO SCH ×3 (13:36→21:24)
[2023-04-08 17:08] LABS: Glucose,Whole Blood 318 mg/dL (70-110)
[2023-04-08] MEDS: ATORVASTATIN 40 MG TAB PO SCH (21:08)
[2023-04-08 21:19] LABS: Glucose,Whole Blood 395 mg/dL (70-110)
--- NOTE | 2023-04-08 22:14 | P.PN ---
Subjective Progress Note Date: 04/08/23 Principal diagnosis: Leukocytosis possible pneumonia Patient is a 77-year-old male with a past medical history significant for COPD congestive heart failure with moderate aortic stenosis pulmonary hypertension chronic kidney disease hypertension hyperlipidemia recently admitted to hospital and treated for COPD/CHF exacerbation presenting back to the hospital with increasing shortness of breath and also have a cough. On today's evaluation that is 04/08/2023, the patient denies having any fever or any chills has been complaining of shortness of breath and also have a cough with minimal sputum production denies any chest pain no nausea vomiting no abdominal pain or diarrhea Objective - Vital Signs Vital signs: Vital Signs Temp 97.4 F L 04/08/23 06:50 Pulse 92 04/08/23 08:11 Resp 17 04/08/23 06:50 BP 126/82 04/08/23 06:50 Pulse Ox 95 04/08/23 08:02 FiO2 Intake & Output 04/07/23 04/08/23 04/08/23 18:59 06:59 18:59 Intake Total 639 118 Output Total 1650 1650 Balance -1011 -1650 118 Weight 99.9 kg Intake: Oral 639 118 Output: Urine 1650 1650 Other: Voiding Method Urinal # Voids 7 2 # Bowel Movements 1 - Exam GENERAL DESCRIPTION: Elderly male lying in bed in no distress RESPIRATORY SYSTEM: Unlabored breathing , coarse breath sounds bilaterally HEART: S1 S2 regular rate and rhythm ABDOMEN: Soft , no tenderness EXTREMITIES: No edema feet - Labs CBC & Chem 7: 04/08/23 05:57 04/08/23 05:57 Labs: Abnormal Lab Results - Last 24 Hours (Table) 04/07/23 04/07/23 04/07/23 Range/Units 08:05 11:00 12:08 WBC (3.8-10.6) k/uL Plt Count (150-450) k/uL Neutrophils # (1.3-7.7) k/uL Lymphocytes # (1.0-4.8) k/uL Sodium (137-145) mmol/L Chloride (98-107) mmol/L BUN (9-20) mg/dL Glucose (74-99) mg/dL POC Glucose (mg/dL) 418 H (70-110) mg/dL Plasma Lactic Acid Gideon 3.9 H* (0.7-2.0) mmol/L Total Protein (6.3-8.2) g/dL Albumin (3.5-5.0) g/dL Procalcitonin 0.10 H (0.02-0.09) ng/mL 04/07/23 04/07/23 04/07/23 Range/Units 14:05 17:27 20:45 WBC (3.8-10.6) k/uL Plt Count (150-450) k/uL Neutrophils # (1.3-7.7) k/uL Lymphocytes # (1.0-4.8) k/uL Sodium (137-145) mmol/L Chloride (98-107) mmol/L BUN (9-20) mg/dL Glucose (74-99) mg/dL POC Glucose (mg/dL) 366 H 435 H (70-110) mg/dL Plasma Lactic Acid Gideon 3.2 H* (0.7-2.0) mmol/L Total Protein (6.3-8.2) g/dL Albumin (3.5-5.0) g/dL Procalcitonin (0.02-0.09) ng/mL 04/08/23 04/08/23 04/08/23 Range/Units 05:57 05:57 06:07 WBC 16.5 H (3.8-10.6) k/uL Plt Count 119 L (150-450) k/uL Neutrophils # 15.6 H (1.3-7.7) k/uL Lymphocytes # 0.4 L (1.0-4.8) k/uL Sodium 134 L (137-145) mmol/L Chloride 97 L (98-107) mmol/L BUN 55 H (9-20) mg/dL Glucose 315 H (74-99) mg/dL POC Glucose (mg/dL) 314 H (70-110) mg/dL Plasma Lactic Acid Gideon (0.7-2.0) mmol/L Total Protein 5.3 L (6.3-8.2) g/dL Albumin 2.8 L (3.5-5.0) g/dL Procalcitonin (0.02-0.09) ng/mL Assessment and Plan (1) Acute exacerbation of chronic obstructive pulmonary disease Current Visit: No Status: Acute Code(s): J44.1 - CHRONIC OBSTRUCTIVE PULMONARY DISEASE W (ACUTE) EXACERBATION SNOMED Code(s): 711334241 (2) Leukocytosis Current Visit: No Status: Acute Code(s): D72.829 - ELEVATED WHITE BLOOD CELL COUNT, UNSPECIFIED SNOMED Code(s): 961951083 Plan: 1patient presented hospital with increasing shortness of breath and cough which is likely multifactorial likely related to underlying COPD exacerbation and tracheobronchitis pneumonia less likely but not entirely excluded 2-we will obtain sputum for Gram stain and culture procalcitonin level is 0.10 3-Pulmonar planning for bronchoscopy and lavage tomorrow , will continue pt on Rocephin and Zithromax while waiting for the work-up to be completed Time with Patient: Less than 30
[2023-04-09] MEDS: methylPREDNISolone SOD SUCCI 125 MG/2 ML VIAL IV SCH ×4 (00:02→17:47)
[2023-04-09] MEDS: SYMBICORT 160-4.5 MCG INHALER INHALATION SCH ×3 (00:05→21:01)
[2023-04-09] MEDS: IPRATROPIUM-ALBUTEROL 3 ML NEB INHALATION SCH ×5 (00:05→21:01)
[2023-04-09 05:41] LABS: Glucose,Whole Blood 433 mg/dL (70-110)
[2023-04-09] MEDS ORDERED: INSULIN ASPART (NovoLOG) 100 UNIT/ML VIAL SQ ONE (06:30)
[2023-04-09] MEDS: INSULIN ASPART (NovoLOG) 100 UNIT/ML VIAL SQ SCH ×4 (06:39→21:55)
[2023-04-09 06:52] LABS: Basophils % (A) 0 %; Eosinophils % (A) 0 %; HCT 46.2 % (39.0-53.0); HGB 14.9 gm/dL (13.0-17.5); Lymphocytes # (A) 0.4 k/uL (1.0-4.8); Lymphocytes % (A) 3 %; MCH 31.2 pg (25.0-35.0); MCHC 32.1 g/dL (31.0-37.0); Mean Platelet Volume 8.3; Monocytes # (A) 0.3 k/uL (0-1.0); Monocytes % (A) 2 %; Neutrophils # (A) 14.2 k/uL (1.3-7.7); Neutrophils % (A) 95 %; Platelet Count 133 k/uL (150-450); RBC 4.76 m/uL (4.30-5.90); RDW 15.2 % (11.5-15.5)
[2023-04-09 07:07] LABS: ALT 25 U/L (4-49); AST 16 U/L (17-59); African American GFR (CKD) 57 (>60 ml/min/1.73 sqM); Albumin 2.8 g/dL (3.5-5.0); Albumin/Globulin Ratio 1.2; Alkaline Phosphatase 70 U/L (38-126); Anion Gap 8 mmol/L; Blood Urea Nitrogen 66 mg/dL (9-20); Calcium 8.3 mg/dL (8.4-10.2); Carbon Dioxide 32 mmol/L (22-30); Chloride 95 mmol/L (98-107); Globulin 2.3 g/dL; Glucose 407 mg/dL (74-99); Non-African American GFR(CKD) 49 (>60 ml/min/1.73 sqM); Potassium 3.4 mmol/L (3.5-5.1); Sodium 135 mmol/L (137-145); Total Bilirubin 0.7 mg/dL (0.2-1.3); Total Protein 5.1 g/dL (6.3-8.2)
[2023-04-09] MEDS: LACTATED RINGERS 1,000 ML IV SCH ×2 (08:37→11:04)
[2023-04-09] MEDS: ASPIRIN 81 MG PO SCH (08:38)
[2023-04-09] MEDS: PANTOPRAZOLE 40 MG TABLET PO SCH (08:38)
[2023-04-09] MEDS: APIXABAN 5 MG TAB PO SCH ×2 (08:38→21:57)
[2023-04-09] MEDS: carvediloL 6.25 MG TAB PO SCH ×2 (08:38→17:47)
[2023-04-09] MEDS: MAGNESIUM OXIDE 400 MG TAB PO SCH ×2 (08:38→21:55)
[2023-04-09] MEDS: NYSTATIN 100,000 UNIT/ML SUSP 500,000 UNIT/5 ML CUP PO SCH ×4 (08:38→21:56)
[2023-04-09] MEDS: allopurinoL 300 MG TAB PO SCH (08:38)
[2023-04-09] MEDS: GLIMEPIRIDE 2 MG TAB PO SCH ×2 (08:39→21:55)
[2023-04-09] MEDS: guaiFENesin-DM 600/30MG 1 EACH TAB.ER.12H PO SCH ×2 (08:39→21:55)
[2023-04-09] MEDS: DAPAGLIFLOZIN PROPANEDIOL 10 MG TABLET PO SCH (08:39)
[2023-04-09] MEDS: FUROSEMIDE 10 MG/ML 10 ML VIAL IV SCH (08:39)
[2023-04-09] MEDS: LEVOTHYROXINE 112 MCG TAB PO SCH (08:40)
[2023-04-09] MEDS: LEVOTHYROXINE 125 MCG TAB PO SCH (08:40)
--- NOTE | 2023-04-09 10:55 | P.PN ---
Subjective Progress Note Date: 04/09/23 This is a pleasant 77-year-old male patient with a history of chronic obstructive pulmonary disease, chronic systolic congestive heart failure with ejection fraction 20-25%, moderate aortic stenosis, severe pulmonary hypertension, chronic kidney disease stage III, coronary artery disease with previous coronary artery bypass grafting and stent placements, hypothyroidism, hyperlipidemia, chronic atrial fibrillation anticoagulated with Eliquis, history of gallstone pancreatitis. He has had frequent admissions to the hospital for his multiple comorbidities. He was just discharged again on 04/03/2023 f ollowing his COPD/CHF exacerbation. He came back to the hospital on 04/06/2023 with worsening shortness of breath, cough and congestion. Chest x-ray shows evidence of cardiomegaly with mild pulmonary vascular congestion. EKG reveals atrial fibrillation with varying ventricular response. White count 15.2. Hemoglobin 14.8. Platelets 119. Sodium 131. Potassium 4.4. Bicarb 20. BUN 55. Creatinine 1.18. Glucose 394. Lactic acid 2.2. Troponin negative times one. ProBNP 3400. The patient is seen today 04/08/2023 in follow-up on the regular medical floor. He is currently sitting up in a chair at the bedside. Awake and alert in no acute distress. He is maintaining O2 saturations in the 90s on room air. No IV fluids. White count 16.5. Hemoglobin 14.8. Platelets 119. Sodium 134. Potassium 3.8. Bicarb 28. BUN 55. Creatinine 1.21. Glucose 315. He remains on IV diuretics. Currently in a -2.6 L balance. Remains on DuoNeb inhalations, Symbicort, IV Solu-Medrol. Antibiotics in the form of ceftriaxone and azithromycin. Pro-calcitonin was 0.10. The patient is seen today 04/09/2023 in follow-up on the regular medical floor. He is currently sitting up at the bedside. Awake and alert in no acute distress. Maintaining good O2 saturations in the 90s on room air. He's afebrile. Hemodynamically stable. Blood cultures are pending. Sputum culture pending. White count 15.0. Hemoglobin 14.9. Platelets 133. Sodium 135. Potassium 3.4. Bicarb 32. BUN 66. Creatinine 1.37. He is continued on DuoNeb inhalations, Symbicort, IV Solu-Medrol. Remains on IV diuretics. Currently in a -2.8 L balance. Antibiotics in the form of ceftriaxone. Anticoagulated with E liquis. Plan is for bronchoscopy with BAL today. Objective - Vital Signs Vital signs: Vital Signs Temp 97.6 F 04/09/23 07:00 Pulse 84 04/09/23 09:42 Resp 16 04/09/23 07:00 BP 123/83 04/09/23 07:00 Pulse Ox 93 L 04/09/23 09:34 FiO2 Intake & Output 04/08/23 04/09/23 04/09/23 18:59 06:59 18:59 Intake Total 118 Output Total 1200 1800 425 Balance -1082 -1800 -425 Weight 99.9 kg 97 kg Intake: Oral 118 Output: Urine 1200 1800 425 Other: Voiding Method Urinal # Voids 1 - Exam GENERAL EXAM: Alert, very pleasant 77-year-old male, on room air, comfortable in no apparent distress. HEAD: Normocephalic. EYES: Normal reaction of pupils, equal size. NOSE: Clear with pink turbinates. THROAT: No erythema or exudates. NECK: No masses, no JVD. CHEST: No chest wall deformity. LUNGS: Equal air entry with bilateral expiratory wheeze, crackles in the posterior bases, diminished. CVS: S1 and S2 normal with no audible murmur, regular rhythm. ABDOMEN: No hepatosplenomegaly, normal bowel sounds, no guarding or rigidity. SPINE: No scoliosis or deformity SKIN: No rashes CENTRAL NERVOUS SYSTEM: No focal deficits, tone is normal in all 4 extremities. EXTREMITIES: There is 1-2+ peripheral edema. No clubbing, no cyanosis. P eripheral pulses are intact. - Labs CBC & Chem 7: 04/09/23 05:45 04/09/23 05:45 Labs: Abnormal Lab Results - Last 24 Hours (Table) 04/08/23 04/08/23 04/08/23 Range/Units 12:02 17:06 21:18 WBC (3.8-10.6) k/uL Plt Count (150-450) k/uL Neutrophils # (1.3-7.7) k/uL Lymphocytes # (1.0-4.8) k/uL Sodium (137-145) mmol/L Potassium (3.5-5.1) mmol/L Chloride (98-107) mmol/L Carbon Dioxide (22-30) mmol/L BUN (9-20) mg/dL Creatinine (0.66-1.25) mg/dL Glucose (74-99) mg/dL POC Glucose (mg/dL) 297 H 318 H 395 H (70-110) mg/dL Calcium (8.4-10.2) mg/dL AST (17-59) U/L Total Protein (6.3-8.2) g/dL Albumin (3.5-5.0) g/dL 04/09/23 04/09/23 04/09/23 Range/Units 05:40 05:45 05:45 WBC 15.0 H (3.8-10.6) k/uL Plt Count 133 L (150-450) k/uL Neutrophils # 14.2 H (1.3-7.7) k/uL Lymphocytes # 0.4 L (1.0-4.8) k/uL Sodium 135 L (137-145) mmol/L Potassium 3.4 L (3.5-5.1) mmol/L Chloride 95 L (98-107) mmol/L Carbon Dioxide 32 H (22-30) mmol/L BUN 66 H (9-20) mg/dL Creatinine 1.37 H (0.66-1.25) mg/dL Glucose 407 H (74-99) mg/dL POC Glucose (mg/dL) 433 H (70-110) mg/dL Calcium 8.3 L (8.4-10.2) mg/dL AST 16 L (17-59) U/L Total Protein 5.1 L (6.3-8.2) g/dL Albumin 2.8 L (3.5-5.0) g/dL Microbiology - Last 24 Hours (Table) 04/08/23 10:30 Gram Stain - Preliminary Sputum 04/06/23 23:49 Blood Culture - Preliminary Blood Assessment and Plan Assessment: Acute exacerbation of chronic systolic congestive heart failure with elevated proBNP level and increased vessel markings and the patient is currently on IV Lasix Acute exacerbation of chronic obstructive pulmonary disease Recent discharge on 04/03/2023 secondary to above History of systolic heart failure with ejection fraction of 20-25% Moderate degree of aortic stenosis and severe pulmonary hypertension as noted on a previous echocardiogram that was done in December 2022 Chronic stage III kidney disease, creatinine is stable for now Former smoker Coronary artery disease with previous bypass surgery and previous coronary intervention and stenting Hypothyroidism Hyperlipidemia Chronic atrial fibrillation. The patient is currently on long-term anticoag ulation with Eliquis History of gallstone pancreatitis Poor overall functional performance based on the above-mentioned multiple comorbidities Plan: The patient was seen and evaluated Labs and medications reviewed Continue DuoNeb inhalations, Symbicort, Solu-Medrol Continue with IV diuretics Remains in a negative balance Continue antibiotics We will plan for bronchoscopy with BAL today We will continue to follow I have personally seen and examined the patient, performed the documentation and the assessment and plan as written. Number of minutes spent on the visit: 10.
[2023-04-09] MEDS: AZITHROMYCIN 500 MG in SODIUM CHLORIDE 0.9% 250 ML IVPB SCH (11:07)
[2023-04-09] MEDS ORDERED: LIDOCAINE 2% INJ 20 MG/ML (2 ML VIAL) ONE (11:30)
[2023-04-09] MEDS ORDERED: fentaNYL (PF) 50 MCG/ML 2 ML AMP ONE (11:30)
[2023-04-09] MEDS ORDERED: MIDAZOLAM 2 MG/2 ML VIAL ONE (11:30)
[2023-04-09] MEDS ORDERED: KETAMINE 10 MG/ML 20 ML VIAL ONE (11:30)
[2023-04-09] MEDS ORDERED: PROPOFOL 10 MG/ML 20 ML VIAL IV ONE (11:30)
[2023-04-09 12:01] LABS: Glucose,Whole Blood 228 mg/dL (70-110)
--- NOTE | 2023-04-09 12:01 | P.PN ---
Subjective Progress Note Date: 04/09/23 HISTORY OF PRESENT ILLNESS: This is a 77-year-old male with a past medical history significant for coronary artery disease with previous CABG with LINDSEY to LAD, PCI of the ostium of the circumflex, left main, and RCA, atrial fibrillation, systolic systolic heart failure, diabetes, hypertension, and hyperlipidemia. Patient follows in the office with Dr. Vazquez. We have been asked to see the patient in consultation for SOB/congestive heart failure. Unfortunately patient has been having frequent admissions or last 6 months. He was just discharged 5 days ago and treated for COPD as well as heart failure. Had attempted to add RCA however apparently this was not covered. Patient does however believe [facility] He states he felt "medium" in terms of somewhat better when he went home however developed progressive shortness of breath. He admits that if he is sitting upright he will feel better however cannot lie flat more than 45 degrees without being short of breath. Does have a mild cough and denies any fevers or chills however does have somewhat of a wheeze. He has been treated for COPD and states he had Agent [place] exposure in [place]. EKG reveals atrial fibrillation with mild RVR Right bundle branch block. Denies any chest pain or pressure. He was di scharged home on prednisone and does have leukocytosis with white blood cell count 15. Prior echoes have been in the range of 20-25% up to 30-35%. He has not had any defibrillator. He has been unable to tolerate much heart failure regimen with patient being on Midodrine. 04/08 Patient is seen today in follow-up. He states he is still wheezing a lot but a little bit better since he came in the hospital. He was seen this morning by pulmonary medicine with plan for bronchoscopy tomorrow. He is continued on IV Lasix 80 mg every 12 hours. He continues to have a cough and also followed by Dr. Garcia on IV antibiotics with ceftriaxone. Regarding AICD, patient understands that more information is to be obtained and discussed with him prior to moving forward. Patient also needs to be stabilized from pulmonary standpoint as well. Patient has been afebrile, heart rate in the 80s and 90s, b lood pressure 126/82, pulse ox 96% on room air. Repeat blood work reveals WBC 16.5, hemoglobin 14.8, platelet count 119. Sodium 134, potassium 3.8, chloride 97, CO2 28, BUN 55 creatinine 1.21. Blood sugars are in the 300s and 400s. 04/09 Patient is seen today in follow up. He is scheduled for Bronchoscopy this afternoon with Dr. Persaud. He is on IV Lasix 80 mg every 12 hours. Weight is down about 3 kg. Negative fluid balance 2800. Heart rate is in the 70s and 80s, blood pressure 123/83. Repeat blood work reveals WBC 15, hemoglobin 14.9.1, 133. Sodium 135, potassium 3.4, chloride 95, CO2 32, BUN 66 and creatinine 1.37. Blood sugar 407. PHYSICAL EXAM: VITAL SIGNS: Reviewed. GENERAL: Well-developed in no acute distress. HEENT: Head is normocephalic. Pupils are equal, round. Sclerae anicteric. Mucous membranes of the mouth are moist. Neck supple. No JVD or thyromegaly LUNGS: Respirations even and unlabored. Lungs crackles bilat noted. HEART: Irregular rate and rhythm. S1 and S2 heard. + 2/6 systolic murmur ABDOMEN: Soft. Nondistended. Nontender. EXTREMITIES: Normal range of motion. No clubbing or cyanosis. Peripheral pulses intact. No lower extremity edema. NEUROLOGIC: Awake and alert. Oriented x 3. ASSESSMENT: Acute on chronic heart failure with reduced EF variable 20-35% range COPD Coronary artery disease with previous CABG with LINDSEY to LAD, PCI of the ostium of the circumflex, left main, and RCA Ischemic cardiomyopathy Persistent atrial fibrillation, on Eliquis, mild RVR on presentation Mild to moderate aortic stenosis Hypertension Hyperlipidemia Diabetes Leukocytosis likely related to steroids PLAN: Patient unable to tolerate much heart failure regimen and continue with carvedilol mainly for heart rate control. Transition IV Lasix to oral 60 mg twice daily, monitor I&O, weight, electrolytes and renal function. Continue other cardiac medications. No need to repeat echo. Prior echo showing more mild to moderate aortic stenosis and only a 2/6 systolic murmur. Patient believes seem may be able [facility] and attempt to facilitate. Patient would likely be a good candidate for biventricular AICD with AV jimmie ablation for management of his A. fib and may help with heart failure symptoms with widening QRS. This can be arranged outpt and once his pulmonary issues have been stabilized. He is scheduled for Bronchoscopy with Dr. Arvizu this afternoon. Further recommendations pending patient course Nurse practitioner note has been reviewed, I agree with the documented findings and plan of care. Patient was seen and examined. Objective - Vital Signs Vital signs: Vital Signs Temp 97.6 F 04/09/23 07:00 Pulse 84 04/09/23 09:42 Resp 16 04/09/23 07:00 BP 123/83 04/09/23 07:00 Pulse Ox 93 L 04/09/23 09:34 FiO2 Intake & Output 04/08/23 04/09/23 04/09/23 18:59 06:59 18:59 Intake Total 118 Output Total 1200 1800 425 Balance -1082 -1800 -425 Weight 99.9 kg 97 kg Intake: Oral 118 Output: Urine 1200 1800 425 Other: Voiding Method Urinal # Voids 1 - Labs CBC & Chem 7: 04/09/23 05:45 04/09/23 05:45 Labs: Abnormal Lab Results - Last 24 Hours (Table) 04/08/23 04/08/23 04/08/23 Range/Units 12:02 17:06 21:18 WBC (3.8-10.6) k/uL Plt Count (150-450) k/uL Neutrophils # (1.3-7.7) k/uL Lymphocytes # (1.0-4.8) k/uL Sodium (137-145) mmol/L Potassium (3.5-5.1) mmol/L Chloride (98-107) mmol/L Carbon Dioxide (22-30) mmol/L BUN (9-20) mg/dL Creatinine (0.66-1.25) mg/dL Glucose (74-99) mg/dL POC Glucose (mg/dL) 297 H 318 H 395 H (70-110) mg/dL Calcium (8.4-10.2) mg/dL AST (17-59) U/L Total Protein (6.3-8.2) g/dL Albumin (3.5-5.0) g/dL 04/09/23 04/09/23 04/09/23 Range/Units 05:40 05:45 05:45 WBC 15.0 H (3.8-10.6) k/uL Plt Count 133 L (150-450) k/uL Neutrophils # 14.2 H (1.3-7.7) k/uL Lymphocytes # 0.4 L (1.0-4.8) k/uL Sodium 135 L (137-145) mmol/L Potassium 3.4 L (3.5-5.1) mmol/L Chloride 95 L (98-107) mmol/L Carbon Dioxide 32 H (22-30) mmol/L BUN 66 H (9-20) mg/dL Creatinine 1.37 H (0.66-1.25) mg/dL Glucose 407 H (74-99) mg/dL POC Glucose (mg/dL) 433 H (70-110) mg/dL Calcium 8.3 L (8.4-10.2) mg/dL AST 16 L (17-59) U/L Total Protein 5.1 L (6.3-8.2) g/dL Albumin 2.8 L (3.5-5.0) g/dL Microbiology - Last 24 Hours (Table) 04/08/23 10:30 Gram Stain - Preliminary Sputum 04/06/23 23:49 Blood Culture - Preliminary Blood
[2023-04-09] MEDS ORDERED: LIDOCAINE 2% INJ 20 MG/ML INTRATRACH ONE ×3 (12:15→12:42)
[2023-04-09] MEDS ORDERED: IV FLUID CONTINUATION 1,000 ML IV ONE (12:30)
[2023-04-09] MEDS ORDERED: IPRATROPIUM-ALBUTEROL 3 ML NEB INHALATION STA (13:07)
[2023-04-09] MEDS: INSULIN DETEMIR (LEVEMIR) 100 UNIT/ML SYR SQ SCH (14:29)
[2023-04-09] MEDS: GABAPENTIN 400 MG CAP PO SCH ×3 (14:30→21:55)
--- NOTE | 2023-04-09 15:11 | PCN ---
PROCEDURE NOTE PROCEDURES PERFORMED: Bronchoscopy, airway examination, therapeutic lavage, and bronchoalveolar lavage. PREOPERATIVE DIAGNOSES: Severe chronic obstructive pulmonary disease, tracheobronchitis, retained secretions. POSTOPERATIVE DIAGNOSES: Severe chronic obstructive pulmonary disease, tracheobronchitis, retained secretions. DIRECTOR OPERATIONS BROADCAST: Dr. Maureen Galeana. ANESTHESIA PROVIDED: General anesthesia. The patient's procedure was done in room #1 [facility]. There was informed consent and universal timeout. DESCRIPTION OF PROCEDURE: After the patient was adequately sedated and being fully monitored, the bronchoscope was inserted through the right nostril. It passed through the right nasopharynx into the oropharynx. The hypopharynx was identified and topicalized. The hypopharyngeal structures, including anterior commissure, true cords, false cords, arytenoids, piriform sinuses, right and left valleculae, and epiglottis appeared normal. The glottic opening was topicalized. The bronchoscope was pushed through the glottic opening into the trachea. Trachea was full of thick yellow secretions. They were somewhat viscid. There was no mass or tumor. Tracheal adebayo was sharp. The right and left mainstem were topicalized. The right upper lobe and its three segments, the right middle lobe and its two segments, right lower lobe and its five segments, left upper lobe proper and its two segments, lingula and its two segments, and left lower lobe and its four segments, all had similar findings of diffuse airway erythema and hyperemia. There was mucosal friability. The patient bled easily. There were thick viscid secretions noted throughout. They were suctioned. There was no dominant mass or tumor. The bronchoscope was wedged into the right middle lobe. The BAL was performed. There was about 30 mL of fluid recovered. The patient tolerated the procedure well without any difficulty. The fluid will be sent for analysis including cytology and microbiology. The bronchoscope was then withdrawn after all the secretions had been suctioned. The patient will be recovered. There was no immediate complication. The patient tolerated the procedure very well. MMODL / IJN: [id number] /
[2023-04-09] MEDS ORDERED: FUROSEMIDE 20 MG TAB PO SCH (16:00)
--- NOTE | 2023-04-09 16:02 | P.PN ---
Subjective Progress Note Date: 04/09/23 Patrick Banuelos, is a 77-year-old male who presented to [facility] emergency room with a chief complaint of worsening shortness of breath, patient was recently admitted to the hospital, with similar complaint, at that time he was diagnosed with acute exacerbation of COPD and acute exacerbation of congestive heart failure, he was treated with IV Lasix IV steroids and inhaled bronchodilators, he was seen by pulmonary and cardiology during that admission, he improved and was discharged home, however patient's symptoms recurred and were worsening, he was only able to walk a few steps without having severe shortness of breath and he decided to come back to emergency room. He was evaluated in the emergency room vital examination on presentation revealed a temperature of 98.1 pulse 91 respiration 22 blood pressure 121/83 pulse ox 92% on room air Laboratory data revealed a white blood count of 15.2 hemoglobin 14.8 platelet count 119 sodium 131 BUN 55 creatinine 1.18 glucose level 394 lactic acid was elevated at 2.6 BNP 3400 Testing in the emergency room revealed chest x-ray done in the emergency room revealed cardiomegaly with mild pulmonary vascular congestion Patient was admitted to medical floor for further evaluation and treatment On review of systems patient is complaining of cough and shortness of breath otherwise he denies any complaints there is no fever or chills no headache or dizziness no chest pain no palpitation no nausea or vomiting no abdominal pain no diarrhea no blood in the stools no burning with urination no frequency or urgency and no hematuria. On 04/08/2023 patient is alert and oriented times. Patient still requiring some shortness of breath currently taking Rocephin and azithromycin. Patient was maintained on IV Lasix, IV Solu-Medrol and DuoNeb breathing treatments. Cardiology, pulmonary and infectious disease services are following. Vital signs temp 97.4, heart rate 94, respiratory 17, blood pressure 126/82 with a pulse ox 96% on room air. On 04/09/2023 patient was seen and examined on the medical floor he is alert and oriented 3 in no apparent distress he is still complaining of cough and shortness of breath otherwise he denies any complaints there is no fever or chills no headache or dizziness no chest pain no shortness of breath no cough no nausea or vomiting no abdominal pain no blood in the stools no diarrhea no burning with urination no frequency or urgency and no hematuria. Patient is scheduled for bronchoscopy this morning, he remains on IV antibiotic Rocephin and Zithromax, he is receiving IV Solu-Medrol and insulin. Objective - Vital Signs Vital signs: Vital Signs Temp 97.6 F 04/09/23 07:00 Pulse 80 04/09/23 07:00 Resp 16 04/09/23 07:00 BP 123/83 04/09/23 07:00 Pulse Ox 91 L 04/09/23 07:00 FiO2 Intake & Output 04/08/23 04/09/23 04/09/23 18:59 06:59 18:59 Intake Total 118 Output Total 1200 1800 425 Balance -1082 -1800 -425 Weight 99.9 kg 97 kg Intake: Oral 118 Output: Urine 1200 1800 425 Other: Voiding Method Urinal # Voids 1 - Exam In general patient is alert and oriented x 3 in no distress HEENT head normocephalic and atraumatic Neck is supple no JVD no goiter no lymphadenopathy no carotid bruit Chest examination coarse crackles bilaterally with wheezing Cardiac exam reveals regular heart sounds S1 and S2 no gallops no murmurs Abdomen is soft nontender no organomegaly with normal bowel sounds Extremity exam reveals no edema no cyanosis or clubbing Neurological examination reveals no gross focal deficits - Labs CBC & Chem 7: 04/09/23 05:45 04/09/23 05:45 Labs: Abnormal Lab Results - Last 24 Hours (Table) 04/08/23 04/08/23 04/08/23 Range/Units 12:02 17:06 21:18 WBC (3.8-10.6) k/uL Plt Count (150-450) k/uL Neutrophils # (1.3-7.7) k/uL Lymphocytes # (1.0-4.8) k/uL Sodium (137-145) mmol/L Potassium (3.5-5.1) mmol/L Chloride (98-107) mmol/L Carbon Dioxide (22-30) mmol/L BUN (9-20) mg/dL Creatinine (0.66-1.25) mg/dL Glucose (74-99) mg/dL POC Glucose (mg/dL) 297 H 318 H 395 H (70-110) mg/dL Calcium (8.4-10.2) mg/dL AST (17-59) U/L Total Protein (6.3-8.2) g/dL Albumin (3.5-5.0) g/dL 04/09/23 04/09/23 04/09/23 Range/Units 05:40 05:45 05:45 WBC 15.0 H (3.8-10.6) k/uL Plt Count 133 L (150-450) k/uL Neutrophils # 14.2 H (1.3-7.7) k/uL Lymphocytes # 0.4 L (1.0-4.8) k/uL Sodium 135 L (137-145) mmol/L Potassium 3.4 L (3.5-5.1) mmol/L Chloride 95 L (98-107) mmol/L Carbon Dioxide 32 H (22-30) mmol/L BUN 66 H (9-20) mg/dL Creatinine 1.37 H (0.66-1.25) mg/dL Glucose 407 H (74-99) mg/dL POC Glucose (mg/dL) 433 H (70-110) mg/dL Calcium 8.3 L (8.4-10.2) mg/dL AST 16 L (17-59) U/L Total Protein 5.1 L (6.3-8.2) g/dL Albumin 2.8 L (3.5-5.0) g/dL Microbiology - Last 24 Hours (Table) 04/08/23 10:30 Gram Stain - Preliminary Sputum 04/06/23 23:49 Blood Culture - Preliminary Blood Assessment and Plan Plan: Acute exacerbation of chronic systolic congestive heart failure Acute exacerbation of chronic obstructive pulmonary disease Acute purulent bronchitis Possible sepsis as evidenced by leukocytosis and elevated lactic acid Underlying history of moderate aortic stenosis Underlying history of severe pulmonary hypertension Underlying history of coronary artery disease with history of coronary artery bypass graft surgery Underlying history of hypertension Underlying history of hyperlipidemia Underlying history of insulin-dependent diabetes mellitus Underlying history of chronic atrial fibrillation Underlying history of chronic kidney disease stage III At this time patient was seen and examined on the telemetry floor Home medications reviewed and reordered Patient was started on IV antibiotic Rocephin and Zithromax Consultation for cardiology pulmonary and infectious disease initiated Prognosis is guarded will continue to follow closely
[2023-04-09 17:40] LABS: Glucose,Whole Blood 262 mg/dL (70-110)
[2023-04-09 20:30] LABS: Glucose,Whole Blood 258 mg/dL (70-110)
[2023-04-09] MEDS: ATORVASTATIN 40 MG TAB PO SCH (21:56)
--- NOTE | 2023-04-09 22:27 | P.PN ---
Subjective Progress Note Date: 04/09/23 Principal diagnosis: Leukocytosis possible pneumonia Patient is a 77-year-old male with a past medical history significant for COPD congestive heart failure with moderate aortic stenosis pulmonary hypertension chronic kidney disease hypertension hyperlipidemia recently admitted to hospital and treated for COPD/CHF exacerbation presenting back to the hospital with increasing shortness of breath and also have a cough. On today's evaluation that is 04/09/2023, the patient remains to be afebrile, the patient has been complaining of shortness of breath and also have a cough with minimal sputum production denies any chest pain no nausea vomiting no abdominal pain or diarrhea Objective - Vital Signs Vital signs: Vital Signs Temp 97.7 F 04/09/23 14:25 Pulse 88 04/09/23 14:25 Resp 18 04/09/23 14:25 BP 134/78 04/09/23 14:25 Pulse Ox 98 04/09/23 14:25 FiO2 Intake & Output 04/08/23 04/09/23 04/09/23 18:59 06:59 18:59 Intake Total 118 300 Output Total 1200 1800 1225 Balance -1925 -1800 925 Weight 99.9 kg 97 kg Intake: IV 300 Oral 118 Output: Urine 1200 1800 425 Stool 800 Other: Voiding Method Urinal # Voids 1 - Exam GENERAL DESCRIPTION: Elderly male lying in bed in no distress RESPIRATORY SYSTEM: Unlabored breathing , coarse breath sounds bilaterally HEART: S1 S2 regular rate and rhythm ABDOMEN: Soft , no tenderness EXTREMITIES: No edema feet - Labs CBC & Chem 7: 04/09/23 05:45 04/09/23 05:45 Labs: Abnormal Lab Results - Last 24 Hours (Table) 04/08/23 04/08/23 04/09/23 Range/Units 17:06 21:18 05:40 WBC (3.8-10.6) k/uL Plt Count (150-450) k/uL Neutrophils # (1.3-7.7) k/uL Lymphocytes # (1.0-4.8) k/uL Sodium (137-145) mmol/L Potassium (3.5-5.1) mmol/L Chloride (98-107) mmol/L Carbon Dioxide (22-30) mmol/L BUN (9-20) mg/dL Creatinine (0.66-1.25) mg/dL Glucose (74-99) mg/dL POC Glucose (mg/dL) 318 H 395 H 433 H (70-110) mg/dL Calcium (8.4-10.2) mg/dL AST (17-59) U/L Total Protein (6.3-8.2) g/dL Albumin (3.5-5.0) g/dL 04/09/23 04/09/23 04/09/23 Range/Units 05:45 05:45 11:57 WBC 15.0 H (3.8-10.6) k/uL Plt Count 133 L (150-450) k/uL Neutrophils # 14.2 H (1.3-7.7) k/uL Lymphocytes # 0.4 L (1.0-4.8) k/uL Sodium 135 L (137-145) mmol/L Potassium 3.4 L (3.5-5.1) mmol/L Chloride 95 L (98-107) mmol/L Carbon Dioxide 32 H (22-30) mmol/L BUN 66 H (9-20) mg/dL Creatinine 1.37 H (0.66-1.25) mg/dL Glucose 407 H (74-99) mg/dL POC Glucose (mg/dL) 228 H (70-110) mg/dL Calcium 8.3 L (8.4-10.2) mg/dL AST 16 L (17-59) U/L Total Protein 5.1 L (6.3-8.2) g/dL Albumin 2.8 L (3.5-5.0) g/dL Microbiology - Last 24 Hours (Table) 04/06/23 23:49 Blood Culture - Preliminary Blood 04/07/23 03:32 Blood Culture - Preliminary Blood 04/08/23 10:30 Gram Stain - Preliminary Sputum Sputum Culture - Preliminary Gram Neg Bacilli Assessment and Plan (1) Acute exacerbation of chronic obstructive pulmonary disease Current Visit: No Status: Acute Code(s): J44.1 - CHRONIC OBSTRUCTIVE PULMONARY DISEASE W (ACUTE) EXACERBATION SNOMED Code(s): 612031216 (2) Leukocytosis Current Visit: No Status: Acute Code(s): D72.829 - ELEVATED WHITE BLOOD CELL COUNT, UNSPECIFIED SNOMED Code(s): 620222657 Plan: 1patient presented hospital with increasing shortness of breath and cough which is likely multifactorial likely related to underlying COPD exacerbation and tracheobronchitis pneumonia less likely but not entirely excluded 2- sputum for Gram stain and culture are currently pending 3-patient is status post bronchoscopy with evidence of retained secretions and severe tracheobronchitis cultures are pending continue with the Rocephin and monitoring course closely Time with Patient: Less than 30
[2023-04-09] MEDS ORDERED: CEFEPIME 2 GM in SODIUM CHLORIDE 0.9% 100 ML IVPB SCH (23:00)
[2023-04-10] MEDS: methylPREDNISolone SOD SUCCI 125 MG/2 ML VIAL IV SCH ×2 (00:01→06:30)
[2023-04-10 05:15] LABS: Basophils % (A) 0 %; Eosinophils % (A) 0 %; HGB 14.4 gm/dL (13.0-17.5); Lymphocytes # (A) 0.3 k/uL (1.0-4.8); Lymphocytes % (A) 2 %; MCH 31.3 pg (25.0-35.0); MCHC 32.8 g/dL (31.0-37.0); MCV 95.4 fL (80.0-100.0); Mean Platelet Volume 8.4; Monocytes # (A) 0.2 k/uL (0-1.0); Monocytes % (A) 2 %; Neutrophils # (A) 14.9 k/uL (1.3-7.7); Neutrophils % (A) 96 %; Platelet Count 109 k/uL (150-450); RBC 4.61 m/uL (4.30-5.90); RDW 15.3 % (11.5-15.5); WBC 15.6 k/uL (3.8-10.6)
[2023-04-10 05:28] LABS: ALT 26 U/L (4-49); AST 17 U/L (17-59); African American GFR (CKD) 48 (>60 ml/min/1.73 sqM); Albumin 2.6 g/dL (3.5-5.0); Albumin/Globulin Ratio 1.1; Alkaline Phosphatase 63 U/L (38-126); Anion Gap 8 mmol/L; Blood Urea Nitrogen 72 mg/dL (9-20); Calcium 8.1 mg/dL (8.4-10.2); Carbon Dioxide 30 mmol/L (22-30); Chloride 95 mmol/L (98-107); Globulin 2.3 g/dL; Glucose 326 mg/dL (74-99); Non-African American GFR(CKD) 41 (>60 ml/min/1.73 sqM); Potassium 3.3 mmol/L (3.5-5.1); Sodium 133 mmol/L (137-145); Total Bilirubin 0.7 mg/dL (0.2-1.3); Total Protein 4.9 g/dL (6.3-8.2)
[2023-04-10 06:14] LABS: Glucose,Whole Blood 303 mg/dL (70-110)
[2023-04-10] MEDS: INSULIN DETEMIR (LEVEMIR) 100 UNIT/ML SYR SQ SCH (06:31)
[2023-04-10] MEDS: carvediloL 6.25 MG TAB PO SCH ×2 (06:31→17:17)
[2023-04-10] MEDS: INSULIN ASPART (NovoLOG) 100 UNIT/ML VIAL SQ SCH ×4 (06:31→21:35)
[2023-04-10] MEDS: SYMBICORT 160-4.5 MCG INHALER INHALATION SCH ×2 (08:21→20:48)
[2023-04-10] MEDS: IPRATROPIUM-ALBUTEROL 3 ML NEB INHALATION SCH ×4 (08:21→20:48)
[2023-04-10] MEDS: predniSONE 10 MG TAB PO SCH (09:55)
[2023-04-10] MEDS: allopurinoL 300 MG TAB PO SCH (09:55)
[2023-04-10] MEDS: MAGNESIUM OXIDE 400 MG TAB PO SCH ×2 (09:55→21:36)
[2023-04-10] MEDS: PANTOPRAZOLE 40 MG TABLET PO SCH (09:56)
[2023-04-10] MEDS: ASPIRIN 81 MG PO SCH (09:56)
[2023-04-10] MEDS: FUROSEMIDE 40 MG TAB PO SCH ×2 (09:56→17:17)
[2023-04-10] MEDS: APIXABAN 5 MG TAB PO SCH ×2 (09:56→21:35)
[2023-04-10] MEDS: guaiFENesin-DM 600/30MG 1 EACH TAB.ER.12H PO SCH ×2 (10:06→21:36)
[2023-04-10] MEDS: DAPAGLIFLOZIN PROPANEDIOL 10 MG TABLET PO SCH (10:06)
[2023-04-10] MEDS: LEVOTHYROXINE 112 MCG TAB PO SCH (10:06)
[2023-04-10] MEDS: GLIMEPIRIDE 2 MG TAB PO SCH ×2 (10:06→21:35)
[2023-04-10] MEDS: LEVOTHYROXINE 125 MCG TAB PO SCH (10:06)
[2023-04-10] MEDS: NYSTATIN 100,000 UNIT/ML SUSP 500,000 UNIT/5 ML CUP PO SCH ×4 (10:06→21:35)
[2023-04-10] MEDS ORDERED: POTASSIUM CHLORIDE ER 20 MEQ TAB.ER PO STA (10:20)
--- NOTE | 2023-04-10 10:22 | P.PN ---
Subjective Progress Note Date: 04/10/23 HISTORY OF PRESENT ILLNESS: This is a 77-year-old male with a past medical history significant for coronary artery disease with previous CABG with LINDSEY to LAD, PCI of the ostium of the circumflex, left main, and RCA, atrial fibrillation, systolic systolic heart failure, diabetes, hypertension, and hyperlipidemia. Patient follows in the office with Dr. Vazquez. We have been asked to see the patient in consultation for SOB/congestive heart failure. Unfortunately patient has been having frequent admissions or last 6 months. He was just discharged 5 days ago and treated for COPD as well as heart failure. Had attempted to add RCA however apparently this was not covered. Patient does however believe [facility]. He states he felt "medium" in terms of somewhat better when he went home however developed progressive shortness of breath. He admits that if he is sitting upright he will feel better however cannot lie flat more than 45 degrees without being short of breath. Does have a mild cough and denies any fevers or chills however does have somewhat of a wheeze. He has been treated for COPD and states he had Agent [place] exposure in [place]. EKG reveals atrial fibrillation with mild RVR Right bundle branch block. Denies any chest pain or pressure. He was di scharged home on prednisone and does have leukocytosis with white blood cell count 15. Prior echoes have been in the range of 20-25% up to 30-35%. He has not had any defibrillator. He has been unable to tolerate much heart failure regimen with patient being on Midodrine. 04/08 Patient is seen today in follow-up. He states he is still wheezing a lot but a little bit better since he came in the hospital. He was seen this morning by pulmonary medicine with plan for bronchoscopy tomorrow. He is continued on IV Lasix 80 mg every 12 hours. He continues to have a cough and also followed by Dr. Garcia on IV antibiotics with ceftriaxone. Regarding AICD, patient understands that more information is to be obtained and discussed with him prior to moving forward. Patient also needs to be stabilized from pulmonary standpoint as well. Patient has been afebrile, heart rate in the 80s and 90s, b lood pressure 126/82, pulse ox 96% on room air. Repeat blood work reveals WBC 16.5, hemoglobin 14.8, platelet count 119. Sodium 134, potassium 3.8, chloride 97, CO2 28, BUN 55 creatinine 1.21. Blood sugars are in the 300s and 400s. 04/09 Patient is seen today in follow up. He is scheduled for Bronchoscopy this afternoon with Dr. Persaud. He is on IV Lasix 80 mg every 12 hours. Weight is down about 3 kg. Negative fluid balance 2800. Heart rate is in the 70s and 80s, blood pressure 123/83. Repeat blood work reveals WBC 15, hemoglobin 14.9.1, 133. Sodium 135, potassium 3.4, chloride 95, CO2 32, BUN 66 and creatinine 1.37. Blood sugar 407. 04/10 Patient is seen today in follow-up. He states his breathing is much improved today following bronchoscopy and lavage. He states he has a little cough that's improved a little bit of wheezing that is improved. Heart rate is 100, blood pressure 125/77, pulse ox 95% on room air. Repeat blood work reveals a bump in his creatinine to 1.58, BUN 72, potassium 3.3. WBC is 15.6, hemoglobin 14.4 platelet count 109. He is currently on Lasix 60 mg twice daily oral. PHYSICAL EXAM: VITAL SIGNS: Reviewed. GENERAL: Well-developed in no acute distress. HEENT: Head is normocephalic. Pupils are equal, round. Sclerae anicteric. Mucous membranes of the mouth are moist. Neck supple. No JVD or thyromegaly LUNGS: Respirations even and unlabored. Lungs bilateral rhonchi improved from yesterday. HEART: Irregular rate and rhythm. S1 and S2 heard. + 2/6 systolic murmur ABDOMEN: Soft. Nondistended. Nontender. EXTREMITIES: Normal range of motion. No clubbing or cyanosis. Peripheral pulses intact. No lower extremity edema. NEUROLOGIC: Awake and alert. Oriented x 3. ASSESSMENT: Acute on chronic heart failure with reduced EF variable 20-35% range COPD Coronary artery disease with previous CABG with LINDSEY to LAD, PCI of the ostium of the circumflex, left main, and RCA Ischemic cardiomyopathy Persistent atrial fibrillation, on Eliquis, mild RVR on presentation Mild to moderate aortic stenosis Hypertension Hyperlipidemia Diabetes Leukocytosis likely related to steroids PLAN: Decrease oral Lasix to 40 mg mg twice daily, monitor I&O, weight, electrolytes and renal function. Continue other cardiac medications. Evaluation for biventricular AICD and AV jimmie ablation as an outpatient Patient is cleared from cardiology perspective and may follow-up in the office with Dr. Vazquez in one week. Nurse practitioner note has been reviewed, I agree with the documented findings and plan of care. Patient was seen and examined. Objective - Vital Signs Vital signs: Vital Signs Temp 97.6 F 04/10/23 06:38 Pulse 100 04/10/23 08:21 Resp 18 04/10/23 06:38 BP 125/77 04/10/23 06:38 Pulse Ox 95 04/10/23 08:21 FiO2 Intake & Output 04/09/23 04/10/23 04/10/23 18:59 06:59 18:59 Intake Total 740 Output Total 1225 800 Balance -485 -800 Weight 99.7 kg Intake: IV 300 Intake, IV Titration 440 Amount Azithromycin 500 mg In 250 Sodium Chloride 0.9% 250 ml @ 250 mls/hr IVPB DAILY [facility] Rx#:[id number] Lactated Ringers 1,000 ml 140 @ 20 mls/hr IV .Q24H [facility] Rx#:[id number] cefTRIAXone 1 gm In 50 Sodium Chloride 0.9% 50 ml @ 100 mls/hr IVPB Q24HR [facility] Rx#:[id number] Output: Urine 425 800 Stool 800 Other: Voiding Method Urinal - Labs CBC & Chem 7: 04/10/23 04:52 04/10/23 04:52 Labs: Abnormal Lab Results - Last 24 Hours (Table) 04/09/23 04/09/23 04/09/23 Range/Units 11:57 17:21 20:28 WBC (3.8-10.6) k/uL Plt Count (150-450) k/uL Neutrophils # (1.3-7.7) k/uL Lymphocytes # (1.0-4.8) k/uL Sodium (137-145) mmol/L Potassium (3.5-5.1) mmol/L Chloride (98-107) mmol/L BUN (9-20) mg/dL Creatinine (0.66-1.25) mg/dL Glucose (74-99) mg/dL POC Glucose (mg/dL) 228 H 262 H 258 H (70-110) mg/dL Calcium (8.4-10.2) mg/dL Total Protein (6.3-8.2) g/dL Albumin (3.5-5.0) g/dL 04/10/23 04/10/23 04/10/23 Range/Units 04:52 04:52 06:12 WBC 15.6 H (3.8-10.6) k/uL Plt Count 109 L (150-450) k/uL Neutrophils # 14.9 H (1.3-7.7) k/uL Lymphocytes # 0.3 L (1.0-4.8) k/uL Sodium 133 L (137-145) mmol/L Potassium 3.3 L (3.5-5.1) mmol/L Chloride 95 L (98-107) mmol/L BUN 72 H (9-20) mg/dL Creatinine 1.58 H (0.66-1.25) mg/dL Glucose 326 H (74-99) mg/dL POC Glucose (mg/dL) 303 H (70-110) mg/dL Calcium 8.1 L (8.4-10.2) mg/dL Total Protein 4.9 L (6.3-8.2) g/dL Albumin 2.6 L (3.5-5.0) g/dL Microbiology - Last 24 Hours (Table) 04/09/23 12:30 Gram Stain - Preliminary Bronchoalviolar Lavage - Right 04/06/23 23:49 Blood Culture - Preliminary Blood 04/07/23 03:32 Blood Culture - Preliminary Blood 04/08/23 10:30 Gram Stain - Preliminary Sputum Sputum Culture - Preliminary Gram Neg Bacilli
--- NOTE | 2023-04-10 10:37 | P.PN ---
Subjective Progress Note Date: 04/10/23 This is a pleasant 77-year-old male patient with a history of chronic obstructive pulmonary disease, chronic systolic congestive heart failure with ejection fraction 20-25%, moderate aortic stenosis, severe pulmonary hypertension, chronic kidney disease stage III, coronary artery disease with previous coronary artery bypass grafting and stent placements, hypothyroidism, hyperlipidemia, chronic atrial fibrillation anticoagulated with Eliquis, history of gallstone pancreatitis. He has had frequent admissions to the hospital for his multiple comorbidities. He was just discharged again on 04/03/2023 f ollowing his COPD/CHF exacerbation. He came back to the hospital on 04/06/2023 with worsening shortness of breath, cough and congestion. Chest x-ray shows evidence of cardiomegaly with mild pulmonary vascular congestion. EKG reveals atrial fibrillation with varying ventricular response. White count 15.2. Hemoglobin 14.8. Platelets 119. Sodium 131. Potassium 4.4. Bicarb 20. BUN 55. Creatinine 1.18. Glucose 394. Lactic acid 2.2. Troponin negative times one. ProBNP 3400. The patient is seen today 04/08/2023 in follow-up on the regular medical floor. He is currently sitting up in a chair at the bedside. Awake and alert in no acute distress. He is maintaining O2 saturations in the 90s on room air. No IV fluids. White count 16.5. Hemoglobin 14.8. Platelets 119. Sodium 134. Potassium 3.8. Bicarb 28. BUN 55. Creatinine 1.21. Glucose 315. He remains on IV diuretics. Currently in a -2.6 L balance. Remains on DuoNeb inhalations, Symbicort, IV Solu-Medrol. Antibiotics in the form of ceftriaxone and azithromycin. Pro-calcitonin was 0.10. The patient is seen today 04/09/2023 in follow-up on the regular medical floor. He is currently sitting up at the bedside. Awake and alert in no acute distress. Maintaining good O2 saturations in the 90s on room air. He's afebrile. Hemodynamically stable. Blood cultures are pending. Sputum culture pending. White count 15.0. Hemoglobin 14.9. Platelets 133. Sodium 135. Potassium 3.4. Bicarb 32. BUN 66. Creatinine 1.37. He is continued on DuoNeb inhalations, Symbicort, IV Solu-Medrol. Remains on IV diuretics. Currently in a -2.8 L balance. Antibiotics in the form of ceftriaxone. Anticoagulated with E liquis. Plan is for bronchoscopy with BAL today. The patient is seen today 04/10/2023 in follow-up on the regular medical floor. He is currently sitting up in bed. Awake and alert in no acute distress. Having breakfast. States he is breathing easier today compared to yesterday. He did undergo bronchoscopy with BAL of the right middle lobe. Many retained secretions were removed. Bronchial wash cultures are pending. He is continued on DuoNeb inhalations, Symbicort, IV Solu-Medrol. Remains on oral diuretics. Currently in a -1.2 L balance Anticoagulated with Eliquis. Antibiotics in the form of cefepime. Sputum cultures positive for pseudomonas aeruginosa. Count 15.6. Hemoglobin 14.4. Platelets 109. Sodium 133. Potassium 3.3. Bicarb 30. BUN 72. Creatinine 1.58. Glucose 326. Objective - Vital Signs Vital signs: Vital Signs Temp 97.6 F 04/10/23 06:38 Pulse 102 H 04/10/23 08:33 Resp 18 04/10/23 09:49 BP 125/77 04/10/23 06:38 Pulse Ox 95 04/10/23 08:21 FiO2 Intake & Output 04/09/23 04/10/23 04/10/23 18:59 06:59 18:59 Intake Total 740 118 Output Total 1225 800 Balance -485 -800 118 Weight 99.7 kg Intake: IV 300 Intake, IV Titration 440 Amount Azithromycin 500 mg In 250 Sodium Chloride 0.9% 250 ml @ 250 mls/hr IVPB DAILY [facility] Rx#:[id number] Lactated Ringers 1,000 ml 140 @ 20 mls/hr IV .Q24H [facility] Rx#:[id number] cefTRIAXone 1 gm In 50 Sodium Chloride 0.9% 50 ml @ 100 mls/hr IVPB Q24HR [facility] Rx#:[id number] Oral 118 Output: Urine 425 800 Stool 800 Other: Voiding Method Urinal Urinal - Exam GENERAL EXAM: Alert, pleasant 77-year-old male, eating up in bed, on room air, comfortable in no apparent distress. HEAD: Normocephalic. EYES: Normal reaction of pupils, equal size. NOSE: Clear with pink turbinates. THROAT: No erythema or exudates. NECK: No masses, no JVD. CHEST: No chest wall deformity. LUNGS: Equal air entry with bilateral expiratory wheeze, crackles in the posterior bases, diminished. CVS: S1 and S2 normal with no audible murmur, regular rhythm. ABDOMEN: No hepatosplenomegaly, normal bowel sounds, no guarding or rigidity. SPINE: No scoliosis or deformity SKIN: No rashes CENTRAL NERVOUS SYSTEM: No focal deficits, tone is normal in all 4 extremities. EXTREMITIES: There is 1-2+ peripheral edema. No clubbing, no cyanosis. Peripheral pulses are intact. - Labs CBC & Chem 7: 04/10/23 04:52 04/10/23 04:52 Labs: Abnormal Lab Results - Last 24 Hours (Table) 04/09/23 04/09/23 04/09/23 Range/Units 11:57 17:21 20:28 WBC (3.8-10.6) k/uL Plt Count (150-450) k/uL Neutrophils # (1.3-7.7) k/uL Lymphocytes # (1.0-4.8) k/uL Sodium (137-145) mmol/L Potassium (3.5-5.1) mmol/L Chloride (98-107) mmol/L BUN (9-20) mg/dL Creatinine (0.66-1.25) mg/dL Glucose (74-99) mg/dL POC Glucose (mg/dL) 228 H 262 H 258 H (70-110) mg/dL Calcium (8.4-10.2) mg/dL Total Protein (6.3-8.2) g/dL Albumin (3.5-5.0) g/dL 04/10/23 04/10/23 04/10/23 Range/Units 04:52 04:52 06:12 WBC 15.6 H (3.8-10.6) k/uL Plt Count 109 L (150-450) k/uL Neutrophils # 14.9 H (1.3-7.7) k/uL Lymphocytes # 0.3 L (1.0-4.8) k/uL Sodium 133 L (137-145) mmol/L Potassium 3.3 L (3.5-5.1) mmol/L Chloride 95 L (98-107) mmol/L BUN 72 H (9-20) mg/dL Creatinine 1.58 H (0.66-1.25) mg/dL Glucose 326 H (74-99) mg/dL POC Glucose (mg/dL) 303 H (70-110) mg/dL Calcium 8.1 L (8.4-10.2) mg/dL Total Protein 4.9 L (6.3-8.2) g/dL Albumin 2.6 L (3.5-5.0) g/dL Microbiology - Last 24 Hours (Table) 04/08/23 10:30 Gram Stain - Final Sputum Sputum Culture - Final Pseudomonas aeruginosa 04/09/23 12:30 Gram Stain - Preliminary Bronchoalviolar Lavage - Right 04/06/23 23:49 Blood Culture - Preliminary Blood 04/07/23 03:32 Blood Culture - Preliminary Blood Assessment and Plan Assessment: Acute exacerbation of chronic systolic congestive heart failure with elevated proBNP level and increased vessel markings and the patient is currently on IV Lasix Acute exacerbation of chronic obstructive pulmonary disease complicated by pseudomonas aeruginosa. Currently on cefepime. Bronchoscopy with BAL performed on 04/09/2023. History of systolic heart failure with ejection fraction of 20-25% Moderate degree of aortic stenosis and severe pulmonary hypertension as noted on a previous echocardiogram that was done in December 2022 Chronic stage III kidney disease, creatinine is stable for now Former smoker Coronary artery disease with previous bypass surgery and previous coronary intervention and stenting Hypothyroidism Hyperlipidemia Chronic atrial fibrillation. The patient is currently on long-term anticoagulation with Eliquis History of gallstone pancreatitis Poor overall functional performance based on the above-mentioned multiple c omorbidities Plan: The patient was seen and evaluated Labs and medications reviewed Sputum culture positive for pseudomonas aeruginosa Continued on cefepime Continue DuoNeb inhalations, Symbicort Discontinue Solu-Medrol, initiate prednisone taper Continues on oral diuretics Remains in a negative balance We will continue to follow I have personally seen and examined the patient, performed the documentation and the assessment and plan as written. Number of minutes spent on the visit: 10.
--- NOTE | 2023-04-10 10:43 | P.PN ---
Subjective Progress Note Date: 04/10/23 Patrick Banuelos, is a 77-year-old male who presented to [facility] emergency room with a chief complaint of worsening shortness of breath, patient was recently admitted to the hospital, with similar complaint, at that time he was diagnosed with acute exacerbation of COPD and acute exacerbation of congestive heart failure, he was treated with IV Lasix IV steroids and inhaled bronchodilators, he was seen by pulmonary and cardiology during that admission, he improved and was discharged home, however patient's symptoms recurred and were worsening, he was only able to walk a few steps without having severe shortness of breath and he decided to come back to emergency room. He was evaluated in the emergency room vital examination on presentation revealed a temperature of 98.1 pulse 91 respiration 22 blood pressure 121/83 pulse ox 92% on room air Laboratory data revealed a white blood count of 15.2 hemoglobin 14.8 platelet count 119 sodium 131 BUN 55 creatinine 1.18 glucose level 394 lactic acid was elevated at 2.6 BNP 3400 Testing in the emergency room revealed chest x-ray done in the emergency room revealed cardiomegaly with mild pulmonary vascular congestion Patient was admitted to medical floor for further evaluation and treatment On review of systems patient is complaining of cough and shortness of breath otherwise he denies any complaints there is no fever or chills no headache or dizziness no chest pain no palpitation no nausea or vomiting no abdominal pain no diarrhea no blood in the stools no burning with urination no frequency or urgency and no hematuria. On 04/08/2023 patient is alert and oriented times. Patient still requiring some shortness of breath currently taking Rocephin and azithromycin. Patient was maintained on IV Lasix, IV Solu-Medrol and DuoNeb breathing treatments. Cardiology, pulmonary and infectious disease services are following. Vital signs temp 97.4, heart rate 94, respiratory 17, blood pressure 126/82 with a pulse ox 96% on room air. On 04/09/2023 patient was seen and examined on the medical floor he is alert and oriented 3 in no apparent distress he is still complaining of cough and shortness of breath otherwise he denies any complaints there is no fever or chills no headache or dizziness no chest pain no shortness of breath no cough no nausea or vomiting no abdominal pain no blood in the stools no diarrhea no burning with urination no frequency or urgency and no hematuria. Patient is scheduled for bronchoscopy this morning, he remains on IV antibiotic Rocephin and Zithromax, he is receiving IV Solu-Medrol and insulin. On 04/10/2020 alert and oriented 3. Patient reports improvement with shortness of breath and cough. Status post bronchoscopy with positive sputum for Pseudomonas aeruginosa. Antibiotics adjusted to Maxipime. Steroids also switched over to by mouth prednisone. This time patient denies chest pain. Patient denies nausea vomiting or diarrhea. Patient denies any urinary burning or frequency Objective - Vital Signs Vital signs: Vital Signs Temp 97.6 F 04/10/23 06:38 Pulse 102 H 04/10/23 08:33 Resp 18 04/10/23 09:49 BP 125/77 04/10/23 06:38 Pulse Ox 95 04/10/23 08:21 FiO2 Intake & Output 04/09/23 04/10/23 04/10/23 18:59 06:59 18:59 Intake Total 740 118 Output Total 1225 800 Balance -485 -800 118 Weight 99.7 kg Intake: IV 300 Intake, IV Titration 440 Amount Azithromycin 500 mg In 250 Sodium Chloride 0.9% 250 ml @ 250 mls/hr IVPB DAILY [facility] Rx#:[id number] Lactated Ringers 1,000 ml 140 @ 20 mls/hr IV .Q24H [facility] Rx#:[id number] cefTRIAXone 1 gm In 50 Sodium Chloride 0.9% 50 ml @ 100 mls/hr IVPB Q24HR [facility] Rx#:[id number] Oral 118 Output: Urine 425 800 Stool 800 Other: Voiding Method Urinal Urinal - Exam In general patient is alert and oriented x 3 in no distress HEENT head normocephalic and atraumatic Neck is supple no JVD no goiter no lymphadenopathy no carotid bruit Chest examination coarse crackles bilaterally with wheezing Cardiac exam reveals regular heart sounds S1 and S2 no gallops no murmurs Abdomen is soft nontender no organomegaly with normal bowel sounds Extremity exam reveals no edema no cyanosis or clubbing Neurological examination reveals no gross focal deficits - Labs CBC & Chem 7: 04/10/23 04:52 04/10/23 04:52 Labs: Abnormal Lab Results - Last 24 Hours (Table) 04/09/23 04/09/23 04/09/23 Range/Units 11:57 17:21 20:28 WBC (3.8-10.6) k/uL Plt Count (150-450) k/uL Neutrophils # (1.3-7.7) k/uL Lymphocytes # (1.0-4.8) k/uL Sodium (137-145) mmol/L Potassium (3.5-5.1) mmol/L Chloride (98-107) mmol/L BUN (9-20) mg/dL Creatinine (0.66-1.25) mg/dL Glucose (74-99) mg/dL POC Glucose (mg/dL) 228 H 262 H 258 H (70-110) mg/dL Calcium (8.4-10.2) mg/dL Total Protein (6.3-8.2) g/dL Albumin (3.5-5.0) g/dL 04/10/23 04/10/23 04/10/23 Range/Units 04:52 04:52 06:12 WBC 15.6 H (3.8-10.6) k/uL Plt Count 109 L (150-450) k/uL Neutrophils # 14.9 H (1.3-7.7) k/uL Lymphocytes # 0.3 L (1.0-4.8) k/uL Sodium 133 L (137-145) mmol/L Potassium 3.3 L (3.5-5.1) mmol/L Chloride 95 L (98-107) mmol/L BUN 72 H (9-20) mg/dL Creatinine 1.58 H (0.66-1.25) mg/dL Glucose 326 H (74-99) mg/dL POC Glucose (mg/dL) 303 H (70-110) mg/dL Calcium 8.1 L (8.4-10.2) mg/dL Total Protein 4.9 L (6.3-8.2) g/dL Albumin 2.6 L (3.5-5.0) g/dL Microbiology - Last 24 Hours (Table) 04/08/23 10:30 Gram Stain - Final Sputum Sputum Culture - Final Pseudomonas aeruginosa 04/09/23 12:30 Gram Stain - Preliminary Bronchoalviolar Lavage - Right 04/06/23 23:49 Blood Culture - Preliminary Blood 04/07/23 03:32 Blood Culture - Preliminary Blood Assessment and Plan Plan: Acute exacerbation of chronic systolic congestive heart failure Acute exacerbation of chronic obstructive pulmonary disease Positive Pseudomonas aerugninosa sputum Possible sepsis as evidenced by leukocytosis and elevated lactic acid Underlying history of moderate aortic stenosis Underlying history of severe pulmonary hypertension Underlying history of coronary artery disease with history of coronary artery bypass graft surgery Underlying history of hypertension Underlying history of hyperlipidemia Underlying history of insulin-dependent diabetes mellitus Underlying history of chronic atrial fibrillation Underlying history of chronic kidney disease stage III At this time patient was seen and examined on the telemetry floor Home medications reviewed and reordered Patient was started on IV antibiotic Rocephin and Zithromax Consultation for cardiology pulmonary and infectious disease initiated Prognosis is guarded will continue to follow closely
[2023-04-10 12:10] LABS: Glucose,Whole Blood 460 mg/dL (70-110)
[2023-04-10] MEDS: CEFEPIME 2 GM in SODIUM CHLORIDE 0.9% 100 ML IVPB SCH (12:39)
[2023-04-10] MEDS: GABAPENTIN 400 MG CAP PO SCH ×3 (13:06→21:35)
--- NOTE | 2023-04-10 14:49 | P.PN ---
Subjective Progress Note Date: 04/10/23 Principal diagnosis: Leukocytosis possible pneumonia Patient is a 77-year-old male with a past medical history significant for COPD congestive heart failure with moderate aortic stenosis pulmonary hypertension chronic kidney disease hypertension hyperlipidemia recently admitted to hospital and treated for COPD/CHF exacerbation presenting back to the hospital with increasing shortness of breath and also have a cough. On today's evaluation that is 04/10/2023, the patient is afebrile, the patient is breathing more comfortably today, the patient continued to have a cough with minimal sputum production denies any chest pain no nausea vomiting no abdominal pain or diarrhea Objective - Vital Signs Vital signs: Vital Signs Temp 97.6 F 04/10/23 06:38 Pulse 102 H 04/10/23 08:33 Resp 18 04/10/23 09:49 BP 125/77 04/10/23 06:38 Pulse Ox 95 04/10/23 08:21 FiO2 Intake & Output 04/09/23 04/10/23 04/10/23 18:59 06:59 18:59 Intake Total 740 118 Output Total 1225 800 Balance -485 -800 118 Weight 99.7 kg Intake: IV 300 Intake, IV Titration 440 Amount Azithromycin 500 mg In 250 Sodium Chloride 0.9% 250 ml @ 250 mls/hr IVPB DAILY [facility] Rx#:[id number] Lactated Ringers 1,000 ml 140 @ 20 mls/hr IV .Q24H [facility] Rx#:[id number] cefTRIAXone 1 gm In 50 Sodium Chloride 0.9% 50 ml @ 100 mls/hr IVPB Q24HR [facility] Rx#:[id number] Oral 118 Output: Urine 425 800 Stool 800 Other: Voiding Method Urinal Urinal - Exam GENERAL DESCRIPTION: Elderly male lying in bed in no distress RESPIRATORY SYSTEM: Unlabored breathing , coarse breath sounds bilaterally HEART: S1 S2 regular rate and rhythm ABDOMEN: Soft , no tenderness EXTREMITIES: No edema feet - Labs CBC & Chem 7: 04/10/23 04:52 04/10/23 04:52 Labs: Abnormal Lab Results - Last 24 Hours (Table) 04/09/23 04/09/23 04/09/23 Range/Units 12:30 17:21 20:28 WBC (3.8-10.6) k/uL Plt Count (150-450) k/uL Neutrophils # (1.3-7.7) k/uL Lymphocytes # (1.0-4.8) k/uL Sodium (137-145) mmol/L Potassium (3.5-5.1) mmol/L Chloride (98-107) mmol/L BUN (9-20) mg/dL Creatinine (0.66-1.25) mg/dL Glucose (74-99) mg/dL POC Glucose (mg/dL) 262 H 258 H (70-110) mg/dL Calcium (8.4-10.2) mg/dL Total Protein (6.3-8.2) g/dL Albumin (3.5-5.0) g/dL Viral Test See Below A 04/10/23 04/10/23 04/10/23 Range/Units 04:52 04:52 06:12 WBC 15.6 H (3.8-10.6) k/uL Plt Count 109 L (150-450) k/uL Neutrophils # 14.9 H (1.3-7.7) k/uL Lymphocytes # 0.3 L (1.0-4.8) k/uL Sodium 133 L (137-145) mmol/L Potassium 3.3 L (3.5-5.1) mmol/L Chloride 95 L (98-107) mmol/L BUN 72 H (9-20) mg/dL Creatinine 1.58 H (0.66-1.25) mg/dL Glucose 326 H (74-99) mg/dL POC Glucose (mg/dL) 303 H (70-110) mg/dL Calcium 8.1 L (8.4-10.2) mg/dL Total Protein 4.9 L (6.3-8.2) g/dL Albumin 2.6 L (3.5-5.0) g/dL Viral Test 04/10/23 Range/Units 12:07 WBC (3.8-10.6) k/uL Plt Count (150-450) k/uL Neutrophils # (1.3-7.7) k/uL Lymphocytes # (1.0-4.8) k/uL Sodium (137-145) mmol/L Potassium (3.5-5.1) mmol/L Chloride (98-107) mmol/L BUN (9-20) mg/dL Creatinine (0.66-1.25) mg/dL Glucose (74-99) mg/dL POC Glucose (mg/dL) 460 H (70-110) mg/dL Calcium (8.4-10.2) mg/dL Total Protein (6.3-8.2) g/dL Albumin (3.5-5.0) g/dL Viral Test Microbiology - Last 24 Hours (Table) 04/09/23 12:30 Gram Stain - Preliminary Bronchoalviolar Lavage - Right Bronchial Washings Culture - Preliminary Gram Neg Bacilli 04/08/23 10:30 Gram Stain - Final Sputum Sputum Culture - Final Pseudomonas aeruginosa 04/06/23 23:49 Blood Culture - Preliminary Blood 04/07/23 03:32 Blood Culture - Preliminary Blood Assessment and Plan (1) Acute exacerbation of chronic obstructive pulmonary disease Current Visit: No Status: Acute Code(s): J44.1 - CHRONIC OBSTRUCTIVE PULMONARY DISEASE W (ACUTE) EXACERBATION SNOMED Code(s): 616845519 (2) Leukocytosis Current Visit: No Status: Acute Code(s): D72.829 - ELEVATED WHITE BLOOD CELL COUNT, UNSPECIFIED SNOMED Code(s): 048437195 Plan: 1patient presented hospital with increasing shortness of breath and cough which is likely multifactorial likely related to underlying COPD exacerbation and tracheobronchitis pneumonia less likely but not entirely excluded 2- sputum for Gram stain and culture did grow pseudomonas aeruginosa 3-patient is status post bronchoscopy with evidence of retained secretions and severe tracheobronchitis cultures are growing gram-negative\ 4-patient antibiotics has been adjusted to cefepime last night the patient seemed to be doing well with it to continue Time with Patient: Less than 30
[2023-04-10] MEDS: LACTATED RINGERS 1,000 ML IV SCH (15:28)
[2023-04-10 17:30] LABS: Glucose,Whole Blood 369 mg/dL (70-110)
--- NOTE | 2023-04-10 18:13 | CDI ---
Documentation Clarification Form Date: 04/10/2023 05:32:43 PM From: Thao Maharaj RN, CCDS Admit Date: 04/06/2023 08:06:00 PM Patient Name: Patrick Banuelos Visit Number: [id number] Discharge Date: ATTENTION: The Clinical Documentation Specialists (CDI) and [facility] Coding Staff appreciate your assistance in clarifying documentation. Please respond to the clarification below the line at the bottom and electronically sign. The CDI & [facility] Coding staff will review the response and follow-up if needed. Please note: Queries are made part of the Legal Health Record. If you have any questions, please contact the author of this message via ITS. Dr. Karoline Mg Possible Sepsis as evidenced by leukocytosis and elevated lactic acid is documented in the H/P and subsequent progress notes. The infection source has not been specified which may lack sufficient clinical evidence/support in the medical record. Additional clarification is requested. History/Risk Factors: Chronic kidney disease, Atrial fibrillation, Hypertension, Hyperlipidemia, Coronary artery disease, congestive heart failure, COPD, Diabetes Mellitus, CVA, [place], Former smoker Clinical Indicators: 77-year-old male present to ED with complaints of worsening shortness of breath, leg swelling. He had no fever. 04/06 VS: `121/83 91 22 98.1 92 % 04/06 Labs: WBC 15.2. Neutrophils 14.2 Sodium 131 BUN 55, Cr 1.18 Lactic acid 2.6 BNP 3400 04/07 Lactic acid 2.6, 3.9, Procacitonin 0.10 04/06 EKG: right bundle branch block. Atrial fibrillation with RVR @ 101 BPM 04/06 CXR: Cardiomegaly and mild pulmonary congestion. Correlate with BNP for congestive heart failure. 04/07 ID Consult: Presented hospital with increasing shortness of breath and cough with is likely multifactorial likely related to underlying COPD exacerbation and tracheobronchitis pneumonia less likely but not entirely excluded. 04/10 ID Progress note: post bronchoscopy with evidence of retained secretions and severe tracheobronchitis culture are pending continue with Rocephin. 04/08 Pulmonary progress note: Acute exacerbation of chronic systolic congestive heart failure. Acute exacerbation of chronic obstructive pulmonary disease. 04/10 Pulmonary progress note: Acute exacerbation chronic obstructive pulmonary disease complicated by pseudomonas aeruginosa. Treatment: Cardiac/Telemetry monitoring Rocephin 1 GM IVPB Q 24 HRS 04/07-04/09 Cefepime HCL 2GM IVPB Q 12 HRS 04/09-04/10 Zithromax 500 MG IVPB Daily 04/07 -04/09 Please clarify if Sepsis is a valid diagnosis? [ XXX ] Yes Sepsis is present on admission as evidence by leukocytosis and elevated lactic acid, (additional clinical support, Infection source): [ ] Yes Sepsis present on admission, Unknown infection source. [ ] No, Sepsis is ruled out [ ] Other (please specify diagnosis) [ ] Unable to determine (Template Last Revised: December 2020) MTDD
[2023-04-10 20:17] LABS: Glucose,Whole Blood 334 mg/dL (70-110)
[2023-04-10] MEDS: POTASSIUM CHLORIDE ER 20 MEQ TAB.ER PO SCH (21:35)
[2023-04-10] MEDS: ATORVASTATIN 40 MG TAB PO SCH (21:35)
[2023-04-11] MEDS: CEFEPIME 2 GM in SODIUM CHLORIDE 0.9% 100 ML IVPB SCH ×2 (00:02→11:30)
[2023-04-11 06:10] LABS: Glucose,Whole Blood 311 mg/dL (70-110)
[2023-04-11 06:16] LABS: Basophils % (A) 0 %; Eosinophils % (A) 0 %; HCT 44.8 % (39.0-53.0); HGB 14.7 gm/dL (13.0-17.5); Lymphocytes # (A) 0.7 k/uL (1.0-4.8); Lymphocytes % (A) 4 %; MCH 31.5 pg (25.0-35.0); MCHC 32.7 g/dL (31.0-37.0); MCV 96.1 fL (80.0-100.0); Mean Platelet Volume 8.3; Monocytes % (A) 5 %; Neutrophils # (A) 17.7 k/uL (1.3-7.7); Neutrophils % (A) 91 %; Platelet Count 118 k/uL (150-450); RBC 4.66 m/uL (4.30-5.90); RDW 15.1 % (11.5-15.5); WBC 19.6 k/uL (3.8-10.6)
[2023-04-11 06:32] LABS: ALT 28 U/L (4-49); AST 20 U/L (17-59); African American GFR (CKD) 56 (>60 ml/min/1.73 sqM); Albumin 2.7 g/dL (3.5-5.0); Albumin/Globulin Ratio 1.2; Alkaline Phosphatase 69 U/L (38-126); Anion Gap 5 mmol/L; Blood Urea Nitrogen 63 mg/dL (9-20); Calcium 7.9 mg/dL (8.4-10.2); Carbon Dioxide 30 mmol/L (22-30); Chloride 99 mmol/L (98-107); Globulin 2.3 g/dL; Glucose 299 mg/dL (74-99); Non-African American GFR(CKD) 48 (>60 ml/min/1.73 sqM); Potassium 3.9 mmol/L (3.5-5.1); Sodium 134 mmol/L (137-145); Total Bilirubin 0.8 mg/dL (0.2-1.3)
[2023-04-11] MEDS: INSULIN DETEMIR (LEVEMIR) 100 UNIT/ML SYR SQ SCH (06:33)
[2023-04-11] MEDS: INSULIN ASPART (NovoLOG) 100 UNIT/ML VIAL SQ SCH ×4 (06:33→22:06)
[2023-04-11] MEDS: carvediloL 6.25 MG TAB PO SCH ×2 (06:33→17:55)
[2023-04-11] MEDS: IPRATROPIUM-ALBUTEROL 3 ML NEB INHALATION SCH ×4 (08:01→19:10)
[2023-04-11] MEDS: SYMBICORT 160-4.5 MCG INHALER INHALATION SCH ×2 (08:01→19:10)
[2023-04-11] MEDS: predniSONE 10 MG TAB PO SCH (09:24)
[2023-04-11] MEDS: ASPIRIN 81 MG PO SCH (09:25)
[2023-04-11] MEDS: FUROSEMIDE 40 MG TAB PO SCH ×2 (09:25→15:50)
[2023-04-11] MEDS: MAGNESIUM OXIDE 400 MG TAB PO SCH ×2 (09:25→22:06)
[2023-04-11] MEDS: PANTOPRAZOLE 40 MG TABLET PO SCH (09:25)
[2023-04-11] MEDS: NYSTATIN 100,000 UNIT/ML SUSP 500,000 UNIT/5 ML CUP PO SCH ×4 (09:25→22:06)
[2023-04-11] MEDS: guaiFENesin-DM 600/30MG 1 EACH TAB.ER.12H PO SCH ×2 (09:25→22:05)
[2023-04-11] MEDS: LEVOTHYROXINE 112 MCG TAB PO SCH (09:26)
[2023-04-11] MEDS: APIXABAN 5 MG TAB PO SCH (09:26)
[2023-04-11] MEDS: GLIMEPIRIDE 2 MG TAB PO SCH ×2 (09:26→22:06)
[2023-04-11] MEDS: DAPAGLIFLOZIN PROPANEDIOL 10 MG TABLET PO SCH (09:26)
[2023-04-11] MEDS: LEVOTHYROXINE 125 MCG TAB PO SCH (09:26)
[2023-04-11] MEDS: POTASSIUM CHLORIDE ER 20 MEQ TAB.ER PO SCH ×2 (09:27→22:06)
[2023-04-11] MEDS: allopurinoL 300 MG TAB PO SCH (09:33)
--- NOTE | 2023-04-11 09:50 | P.PN ---
Subjective Progress Note Date: 04/11/23 HISTORY OF PRESENT ILLNESS: This is a 77-year-old male with a past medical history significant for coronary artery disease with previous CABG with LINDSEY to LAD, PCI of the ostium of the circumflex, left main, and RCA, atrial fibrillation, systolic systolic heart failure, diabetes, hypertension, and hyperlipidemia. Patient follows in the office with Dr. Vazquez. We have been asked to see the patient in consultation for SOB/congestive heart failure. Unfortunately patient has been having frequent admissions or last 6 months. He was just discharged 5 days ago and treated for COPD as well as heart failure. Had attempted to add RCA however apparently this was not covered. Patient does however believe [facility]arg[facility]. He states he felt "medium" in terms of somewhat better when he went home however developed progressive shortness of breath. He admits that if he is sitting upright he will feel better however cannot lie flat more than 45 degrees without being short of breath. Does have a mild cough and denies any fevers or chills however does have somewhat of a wheeze. He has been treated for COPD and states he had Agent [place] exposure in [place]. EKG reveals atrial fibrillation with mild RVR Right bundle branch block. Denies any chest pain or pressure. He was di scharged home on prednisone and does have leukocytosis with white blood cell count 15. Prior echoes have been in the range of 20-25% up to 30-35%. He has not had any defibrillator. He has been unable to tolerate much heart failure regimen with patient being on Midodrine. 04/08 Patient is seen today in follow-up. He states he is still wheezing a lot but a little bit better since he came in the hospital. He was seen this morning by pulmonary medicine with plan for bronchoscopy tomorrow. He is continued on IV Lasix 80 mg every 12 hours. He continues to have a cough and also followed by Dr. Garcia on IV antibiotics with ceftriaxone. Regarding AICD, patient understands that more information is to be obtained and discussed with him prior to moving forward. Patient also needs to be stabilized from pulmonary standpoint as well. Patient has been afebrile, heart rate in the 80s and 90s, b lood pressure 126/82, pulse ox 96% on room air. Repeat blood work reveals WBC 16.5, hemoglobin 14.8, platelet count 119. Sodium 134, potassium 3.8, chloride 97, CO2 28, BUN 55 creatinine 1.21. Blood sugars are in the 300s and 400s. 04/09 Patient is seen today in follow up. He is scheduled for Bronchoscopy this afternoon with Dr. Persaud. He is on IV Lasix 80 mg every 12 hours. Weight is down about 3 kg. Negative fluid balance 2800. Heart rate is in the 70s and 80s, blood pressure 123/83. Repeat blood work reveals WBC 15, hemoglobin 14.9.1, 133. Sodium 135, potassium 3.4, chloride 95, CO2 32, BUN 66 and creatinine 1.37. Blood sugar 407. 04/10 Patient is seen today in follow-up. He states his breathing is much improved today following bronchoscopy and lavage. He states he has a little cough that's improved a little bit of wheezing that is improved. Heart rate is 100, blood pressure 125/77, pulse ox 95% on room air. Repeat blood work reveals a bump in his creatinine to 1.58, BUN 72, potassium 3.3. WBC is 15.6, hemoglobin 14.4 platelet count 109. He is currently on Lasix 60 mg twice daily oral. 04/11 Patient states that his breathing status continues to be improved. He is having wheezing and a nonproductive cough. Blood pressure 119/81, heart rate in the 60s to 80s. Repeat BUN 63 creatinine 1.39, potassium 3.9. Telemetry is atrial fibrillation. PHYSICAL EXAM: VITAL SIGNS: Reviewed. GENERAL: Well-developed in no acute distress. HEENT: Head is normocephalic. Pupils are equal, round. Sclerae anicteric. Mucous membranes of the mouth are moist. Neck supple. No JVD or thyromegaly LUNGS: Respirations even and unlabored. Lungs bilateral rhonchi improved from yesterday. HEART: Irregular rate and rhythm. S1 and S2 heard. + 2/6 systolic murmur ABDOMEN: Soft. Nondistended. Nontender. EXTREMITIES: Normal range of motion. No clubbing or cyanosis. Peripheral pul ses intact. No lower extremity edema. NEUROLOGIC: Awake and alert. Oriented x 3. ASSESSMENT: Acute on chronic heart failure with reduced EF variable 20-35% range COPD Coronary artery disease with previous CABG with LINDSEY to LAD, PCI of the ostium of the circumflex, left main, and RCA Ischemic cardiomyopathy Persistent atrial fibrillation, on Eliquis, mild RVR on presentation Mild to moderate aortic stenosis Hypertension Hyperlipidemia Diabetes Leukocytosis likely related to steroids PLAN: Continue oral Lasix to 40 mg mg twice daily, monitor I&O, weight, electrolytes and renal function. Continue other cardiac medications. Evaluation for biventricular AICD and AV jimmie ablation as an outpatient Patient will be evaluated in the outpatient setting for possible Entresto as he has had history of angioedema from [facility]. Patient is cleared from cardiology perspective and may follow-up in the office with Dr. Vazquez in one week. Patient already has a scheduled appointment on 04/26. Nurse practitioner note has been reviewed, I agree with the documented findings and plan of care. Patient was seen and examined. Objective - Vital Signs Vital signs: Vital Signs Temp 97.7 F 04/11/23 02:21 Pulse 80 04/11/23 08:17 Resp 16 04/11/23 02:21 BP 119/68 04/11/23 02:21 Pulse Ox 99 04/11/23 02:21 FiO2 Intake & Output 04/10/23 04/11/23 04/11/23 18:59 06:59 18:59 Intake Total 236 Output Total 1150 Balance 236 -1150 Weight 102.1 kg Intake: Oral 236 Output: Urine 1150 Other: Voiding Method Urinal Urinal # Voids 4 # Bowel Movements 1 - Labs CBC & Chem 7: 04/11/23 05:42 04/11/23 05:42 Labs: Abnormal Lab Results - Last 24 Hours (Table) 04/09/23 04/10/23 04/10/23 Range/Units 12:30 12:07 17:28 WBC (3.8-10.6) k/uL Plt Count (150-450) k/uL Neutrophils # (1.3-7.7) k/uL Lymphocytes # (1.0-4.8) k/uL Sodium (137-145) mmol/L BUN (9-20) mg/dL Creatinine (0.66-1.25) mg/dL Glucose (74-99) mg/dL POC Glucose (mg/dL) 460 H 369 H (70-110) mg/dL Calcium (8.4-10.2) mg/dL Total Protein (6.3-8.2) g/dL Albumin (3.5-5.0) g/dL Viral Test See Below A 04/10/23 04/11/23 04/11/23 Range/Units 20:15 05:42 05:42 WBC 19.6 H (3.8-10.6) k/uL Plt Count 118 L (150-450) k/uL Neutrophils # 17.7 H (1.3-7.7) k/uL Lymphocytes # 0.7 L (1.0-4.8) k/uL Sodium 134 L (137-145) mmol/L BUN 63 H (9-20) mg/dL Creatinine 1.39 H (0.66-1.25) mg/dL Glucose 299 H (74-99) mg/dL POC Glucose (mg/dL) 334 H (70-110) mg/dL Calcium 7.9 L (8.4-10.2) mg/dL Total Protein 5.0 L (6.3-8.2) g/dL Albumin 2.7 L (3.5-5.0) g/dL Viral Test 04/11/23 Range/Units 06:08 WBC (3.8-10.6) k/uL Plt Count (150-450) k/uL Neutrophils # (1.3-7.7) k/uL Lymphocytes # (1.0-4.8) k/uL Sodium (137-145) mmol/L BUN (9-20) mg/dL Creatinine (0.66-1.25) mg/dL Glucose (74-99) mg/dL POC Glucose (mg/dL) 311 H (70-110) mg/dL Calcium (8.4-10.2) mg/dL Total Protein (6.3-8.2) g/dL Albumin (3.5-5.0) g/dL Viral Test Microbiology - Last 24 Hours (Table) 04/07/23 03:32 Blood Culture - Preliminary Blood 04/06/23 23:49 Blood Culture - Preliminary Blood 04/09/23 12:30 Gram Stain - Preliminary Bronchoalviolar Lavage - Right Bronchial Washings Culture - Preliminary Gram Neg Bacilli 04/08/23 10:30 Gram Stain - Final Sputum Sputum Culture - Final Pseudomonas aeruginosa
--- NOTE | 2023-04-11 10:25 | P.PN ---
Subjective Progress Note Date: 04/11/23 This is a pleasant 77-year-old male patient with a history of chronic obstructive pulmonary disease, chronic systolic congestive heart failure with ejection fraction 20-25%, moderate aortic stenosis, severe pulmonary hypertension, chronic kidney disease stage III, coronary artery disease with previous coronary artery bypass grafting and stent placements, hypothyroidism, hyperlipidemia, chronic atrial fibrillation anticoagulated with Eliquis, history of gallstone pancreatitis. He has had frequent admissions to the hospital for his multiple comorbidities. He was just discharged again on 04/03/2023 f ollowing his COPD/CHF exacerbation. He came back to the hospital on 04/06/2023 with worsening shortness of breath, cough and congestion. Chest x-ray shows evidence of cardiomegaly with mild pulmonary vascular congestion. EKG reveals atrial fibrillation with varying ventricular response. White count 15.2. Hemoglobin 14.8. Platelets 119. Sodium 131. Potassium 4.4. Bicarb 20. BUN 55. Creatinine 1.18. Glucose 394. Lactic acid 2.2. Troponin negative times one. ProBNP 3400. The patient is seen today 04/08/2023 in follow-up on the regular medical floor. He is currently sitting up in a chair at the bedside. Awake and alert in no acute distress. He is maintaining O2 saturations in the 90s on room air. No IV fluids. White count 16.5. Hemoglobin 14.8. Platelets 119. Sodium 134. Potassium 3.8. Bicarb 28. BUN 55. Creatinine 1.21. Glucose 315. He remains on IV diuretics. Currently in a -2.6 L balance. Remains on DuoNeb inhalations, Symbicort, IV Solu-Medrol. Antibiotics in the form of ceftriaxone and azithromycin. Pro-calcitonin was 0.10. The patient is seen today 04/09/2023 in follow-up on the regular medical floor. He is currently sitting up at the bedside. Awake and alert in no acute distress. Maintaining good O2 saturations in the 90s on room air. He's afebrile. Hemodynamically stable. Blood cultures are pending. Sputum culture pending. White count 15.0. Hemoglobin 14.9. Platelets 133. Sodium 135. Potassium 3.4. Bicarb 32. BUN 66. Creatinine 1.37. He is continued on DuoNeb inhalations, Symbicort, IV Solu-Medrol. Remains on IV diuretics. Currently in a -2.8 L balance. Antibiotics in the form of ceftriaxone. Anticoagulated with E liquis. Plan is for bronchoscopy with BAL today. The patient is seen today 04/10/2023 in follow-up on the regular medical floor. He is currently sitting up in bed. Awake and alert in no acute distress. Having breakfast. States he is breathing easier today compared to yesterday. He did undergo bronchoscopy with BAL of the right middle lobe. Many retained secretions were removed. Bronchial wash cultures are pending. He is continued on DuoNeb inhalations, Symbicort, IV Solu-Medrol. Remains on oral diuretics. Currently in a -1.2 L balance Anticoagulated with Eliquis. Antibiotics in the form of cefepime. Sputum cultures positive for pseudomonas aeruginosa. Count 15.6. Hemoglobin 14.4. Platelets 109. Sodium 133. Potassium 3.3. Bicarb 30. BUN 72. Creatinine 1.58. Glucose 326. The patient is seen today 04/11/2023 in follow-up on the regular medical floor. He is resting comfortably in bed. Awake and alert in no acute distress. He states he feels he is still quite congested and unable to expectorate with this cough. He remains on DuoNeb inhalations, Symbicort, Mucinex, prednisone. Remains on oral diuretics. Remains on antibiotics in form of cefepime. Anticoagulated with Eliquis. White count 19.6. Hemoglobin 14.7. Platelets 118. Sodium 134. Potassium 3.9. Bicarb 30. BUN 63. Creatinine 1.39. Glucose 299. Objective - Vital Signs Vital signs: Vital Signs Temp 97.9 F 04/11/23 07:55 Pulse 80 04/11/23 08:17 Resp 16 04/11/23 07:55 BP 119/81 04/11/23 07:55 Pulse Ox 95 04/11/23 07:55 FiO2 Intake & Output 04/10/23 04/11/23 04/11/23 18:59 06:59 18:59 Intake Total 236 Output Total 1150 440 Balance 236 -1150 -440 Weight 102.1 kg Intake: Oral 236 Output: Urine 1150 440 Other: Voiding Method Urinal Urinal # Voids 4 # Bowel Movements 1 - Exam GENERAL EXAM: Alert, 77-year-old male, resting in bed, on room air, comfortable in no apparent distress. HEAD: Normocephalic. EYES: Normal reaction of pupils, equal size. NOSE: Clear with pink turbinates. THROAT: No erythema or exudates. NECK: No masses, no JVD. CHEST: No chest wall deformity. LUNGS: Equal air entry with bilateral expiratory wheeze, crackles in the posterior bases, diminished. CVS: S1 and S2 normal with no audible murmur, regular rhythm. ABDOMEN: No hepatosplenomegaly, normal bowel sounds, no guarding or rigidity. SPINE: No scoliosis or deformity SKIN: No rashes CENTRAL NERVOUS SYSTEM: No focal deficits, tone is normal in all 4 extremities. EXTREMITIES: There is 1-2+ peripheral edema. No clubbing, no cyanosis. Peripheral pulses are intact. - Labs CBC & Chem 7: 04/11/23 05:42 04/11/23 05:42 Labs: Abnormal Lab Results - Last 24 Hours (Table) 04/09/23 04/10/23 04/10/23 Range/Units 12:30 12:07 17:28 WBC (3.8-10.6) k/uL Plt Count (150-450) k/uL Neutrophils # (1.3-7.7) k/uL Lymphocytes # (1.0-4.8) k/uL Sodium (137-145) mmol/L BUN (9-20) mg/dL Creatinine (0.66-1.25) mg/dL Glucose (74-99) mg/dL POC Glucose (mg/dL) 460 H 369 H (70-110) mg/dL Calcium (8.4-10.2) mg/dL Total Protein (6.3-8.2) g/dL Albumin (3.5-5.0) g/dL Viral Test See Below A 04/10/23 04/11/23 04/11/23 Range/Units 20:15 05:42 05:42 WBC 19.6 H (3.8-10.6) k/uL Plt Count 118 L (150-450) k/uL Neutrophils # 17.7 H (1.3-7.7) k/uL Lymphocytes # 0.7 L (1.0-4.8) k/uL Sodium 134 L (137-145) mmol/L BUN 63 H (9-20) mg/dL Creatinine 1.39 H (0.66-1.25) mg/dL Glucose 299 H (74-99) mg/dL POC Glucose (mg/dL) 334 H (70-110) mg/dL Calcium 7.9 L (8.4-10.2) mg/dL Total Protein 5.0 L (6.3-8.2) g/dL Albumin 2.7 L (3.5-5.0) g/dL Viral Test 04/11/23 Range/Units 06:08 WBC (3.8-10.6) k/uL Plt Count (150-450) k/uL Neutrophils # (1.3-7.7) k/uL Lymphocytes # (1.0-4.8) k/uL Sodium (137-145) mmol/L BUN (9-20) mg/dL Creatinine (0.66-1.25) mg/dL Glucose (74-99) mg/dL POC Glucose (mg/dL) 311 H (70-110) mg/dL Calcium (8.4-10.2) mg/dL Total Protein (6.3-8.2) g/dL Albumin (3.5-5.0) g/dL Viral Test Microbiology - Last 24 Hours (Table) 04/07/23 03:32 Blood Culture - Preliminary Blood 04/06/23 23:49 Blood Culture - Preliminary Blood 04/09/23 12:30 Gram Stain - Preliminary Bronchoalviolar Lavage - Right Bronchial Washings Culture - Preliminary Gram Neg Bacilli 04/08/23 10:30 Gram Stain - Final Sputum Sputum Culture - Final Pseudomonas aeruginosa Assessment and Plan Assessment: Acute exacerbation of chronic systolic congestive heart failure with elevated proBNP level and increased vessel markings and the patient is currently on Lasix Acute exacerbation of chronic obstructive pulmonary disease complicated by pseudomonas aeruginosa. Currently on cefepime. Bronchoscopy with BAL performed on 04/09/2023. History of systolic heart failure with ejection fraction of 20-25% Moderate degree of aortic stenosis and severe pulmonary hypertension as noted on a previous echocardiogram that was done in December 2022 Chronic stage III kidney disease, creatinine is stable for now Former smoker Coronary artery disease with previous bypass surgery and previous coronary intervention and stenting Hypothyroidism Hyperlipidemia Chronic atrial fibrillation. The patient is currently on long-term anticoagulation with Eliquis History of gallstone pancreatitis Poor overall functional performance based on the above-mentioned multiple comorbidities Plan: The patient was seen and evaluated Labs and medications reviewed Continued on cefepime Continue DuoNeb inhalations, Symbicort, prednisone Patient still quite congested and requesting repeat bronchoscopy Plan for bronchoscopy with BAL in a.m. We will continue to follow I have personally seen and examined the patient, performed the documentation and the assessment and plan as written. Number of minutes spent on the visit: 10.
[2023-04-11 12:42] LABS: Glucose,Whole Blood 133 mg/dL (70-110)
[2023-04-11] MEDS: LACTATED RINGERS 1,000 ML IV SCH (13:03)
[2023-04-11] MEDS: GABAPENTIN 400 MG CAP PO SCH ×3 (14:22→22:05)
--- NOTE | 2023-04-11 15:18 | P.PN ---
Subjective Progress Note Date: 04/11/23 Patrick Banuelos, is a 77-year-old male who presented to [facility] emergency room with a chief complaint of worsening shortness of breath, patient was recently admitted to the hospital, with similar complaint, at that time he was diagnosed with acute exacerbation of COPD and acute exacerbation of congestive heart failure, he was treated with IV Lasix IV steroids and inhaled bronchodilators, he was seen by pulmonary and cardiology during that admission, he improved and was discharged home, however patient's symptoms recurred and were worsening, he was only able to walk a few steps without having severe shortness of breath and he decided to come back to emergency room. He was evaluated in the emergency room vital examination on presentation revealed a temperature of 98.1 pulse 91 respiration 22 blood pressure 121/83 pulse ox 92% on room air Laboratory data revealed a white blood count of 15.2 hemoglobin 14.8 platelet count 119 sodium 131 BUN 55 creatinine 1.18 glucose level 394 lactic acid was elevated at 2.6 BNP 3400 Testing in the emergency room revealed chest x-ray done in the emergency room revealed cardiomegaly with mild pulmonary vascular congestion Patient was admitted to medical floor for further evaluation and treatment On review of systems patient is complaining of cough and shortness of breath otherwise he denies any complaints there is no fever or chills no headache or dizziness no chest pain no palpitation no nausea or vomiting no abdominal pain no diarrhea no blood in the stools no burning with urination no frequency or urgency and no hematuria. On 04/08/2023 patient is alert and oriented times. Patient still requiring some shortness of breath currently taking Rocephin and azithromycin. Patient was maintained on IV Lasix, IV Solu-Medrol and DuoNeb breathing treatments. Cardiology, pulmonary and infectious disease services are following. Vital signs temp 97.4, heart rate 94, respiratory 17, blood pressure 126/82 with a pulse ox 96% on room air. On 04/09/2023 patient was seen and examined on the medical floor he is alert and oriented 3 in no apparent distress he is still complaining of cough and shortness of breath otherwise he denies any complaints there is no fever or chills no headache or dizziness no chest pain no shortness of breath no cough no nausea or vomiting no abdominal pain no blood in the stools no diarrhea no burning with urination no frequency or urgency and no hematuria. Patient is scheduled for bronchoscopy this morning, he remains on IV antibiotic Rocephin and Zithromax, he is receiving IV Solu-Medrol and insulin. On 04/10/2023 alert and oriented 3. Patient reports improvement with shortness of breath and cough. Status post bronchoscopy with positive sputum for Pseudomonas aeruginosa. Antibiotics adjusted to Maxipime. Steroids also switched over to by mouth prednisone. This time patient denies chest pain. Patient denies nausea vomiting or diarrhea. Patient denies any urinary burning or frequency. On 04/11/2023 patient was seen and examined on the medical floor he is alert and oriented 3 in no apparent distress he is still complaining of cough and shortness of breath otherwise he denies any complaints there is no fever or chills no headache or dizziness no chest pain no nausea or vomiting no abdominal pain no diarrhea and no urinary symptoms. Plan per pulmonary is to proceed with repeat bronchoscopy in a.m. tomorrow Objective - Vital Signs Vital signs: Vital Signs Temp 97.9 F 04/11/23 07:55 Pulse 80 04/11/23 08:17 Resp 16 04/11/23 09:25 BP 119/81 04/11/23 07:55 Pulse Ox 95 04/11/23 07:55 FiO2 Intake & Output 04/10/23 04/11/23 04/11/23 18:59 06:59 18:59 Intake Total 236 240 Output Total 1150 440 Balance 236 -1150 -200 Weight 102.1 kg Intake: Oral 236 240 Output: Urine 1150 440 Other: Voiding Method Urinal Urinal Urinal # Voids 4 1 # Bowel Movements 1 1 - Exam In general patient is alert and oriented x 3 in no distress HEENT head normocephalic and atraumatic Neck is supple no JVD no goiter no lymphadenopathy no carotid bruit Chest examination coarse crackles bilaterally with wheezing Cardiac exam reveals regular heart sounds S1 and S2 no gallops no murmurs Abdomen is soft nontender no organomegaly with normal bowel sounds Extremity exam reveals no edema no cyanosis or clubbing Neurological examination reveals no gross focal deficits - Labs CBC & Chem 7: 04/11/23 05:42 04/11/23 05:42 Labs: Abnormal Lab Results - Last 24 Hours (Table) 04/09/23 04/10/23 04/10/23 Range/Units 12:30 12:07 17:28 WBC (3.8-10.6) k/uL Plt Count (150-450) k/uL Neutrophils # (1.3-7.7) k/uL Lymphocytes # (1.0-4.8) k/uL Sodium (137-145) mmol/L BUN (9-20) mg/dL Creatinine (0.66-1.25) mg/dL Glucose (74-99) mg/dL POC Glucose (mg/dL) 460 H 369 H (70-110) mg/dL Calcium (8.4-10.2) mg/dL Total Protein (6.3-8.2) g/dL Albumin (3.5-5.0) g/dL Viral Test See Below A 04/10/23 04/11/23 04/11/23 Range/Units 20:15 05:42 05:42 WBC 19.6 H (3.8-10.6) k/uL Plt Count 118 L (150-450) k/uL Neutrophils # 17.7 H (1.3-7.7) k/uL Lymphocytes # 0.7 L (1.0-4.8) k/uL Sodium 134 L (137-145) mmol/L BUN 63 H (9-20) mg/dL Creatinine 1.39 H (0.66-1.25) mg/dL Glucose 299 H (74-99) mg/dL POC Glucose (mg/dL) 334 H (70-110) mg/dL Calcium 7.9 L (8.4-10.2) mg/dL Total Protein 5.0 L (6.3-8.2) g/dL Albumin 2.7 L (3.5-5.0) g/dL Viral Test 04/11/23 Range/Units 06:08 WBC (3.8-10.6) k/uL Plt Count (150-450) k/uL Neutrophils # (1.3-7.7) k/uL Lymphocytes # (1.0-4.8) k/uL Sodium (137-145) mmol/L BUN (9-20) mg/dL Creatinine (0.66-1.25) mg/dL Glucose (74-99) mg/dL POC Glucose (mg/dL) 311 H (70-110) mg/dL Calcium (8.4-10.2) mg/dL Total Protein (6.3-8.2) g/dL Albumin (3.5-5.0) g/dL Viral Test Microbiology - Last 24 Hours (Table) 04/07/23 03:32 Blood Culture - Preliminary Blood 04/06/23 23:49 Blood Culture - Preliminary Blood 04/09/23 12:30 Gram Stain - Preliminary Bronchoalviolar Lavage - Right Bronchial Washings Culture - Preliminary Gram Neg Bacilli 04/08/23 10:30 Gram Stain - Final Sputum Sputum Culture - Final Pseudomonas aeruginosa Assessment and Plan Plan: Acute exacerbation of chronic systolic congestive heart failure Acute exacerbation of chronic obstructive pulmonary disease Positive Pseudomonas aerugninosa sputum Possible sepsis as evidenced by leukocytosis and elevated lactic acid Underlying history of moderate aortic stenosis Underlying history of severe pulmonary hypertension Underlying history of coronary artery disease with history of coronary artery bypass graft surgery Underlying history of hypertension Underlying history of hyperlipidemia Underlying history of insulin-dependent diabetes mellitus Underlying history of chronic atrial fibrillation Underlying history of chronic kidney disease stage III At this time patient was seen and examined on the telemetry floor Home medications reviewed and reordered Patient was started on IV antibiotic Rocephin and Zithromax Consultation for cardiology pulmonary and infectious disease initiated Prognosis is guarded will continue to follow closely
--- NOTE | 2023-04-11 15:27 | IR ---
PICC LINE PLACEMENT: HISTORY: Infection requiring long-term antibiotic therapy PROCEDURE: Ultrasound and fluoroscopic guidance of PICC line placement. COMPLICATIONS: None ANESTHESIA: 1. 1% Lidocaine locally. FINDINGS/TECHNIQUE: The procedure was explained to the patient. The risks, complications, benefits and alternatives were discussed and any questions were answered. Informed consent was obtained. The patient was placed supine on the fluoroscopic table and prepped and draped in the usual sterile fash ion. Utilizing a 21 gauge needle and sonographic and fluoroscopic guidance, access in the left basi lic vein was achieved and there is placement of a 0.018 guidewire. The vein is patent. A 4-F sheath was placed over the guidewire. The guidewire and dilator were removed and a 4-F. PICC line was plac ed through the sheath with the tip at the level of the SVC. The sheath was removed, the catheter was flushed and sutured into position. The patient was stable throughout the procedure and remained sta ble upon discharge from the Department of Radiology. The vein puncture was patent under ultrasound. A loyola scale image was obtained to document patency of the vein punctured. All elements of the maximal barrier technique were utilized. FLUOROSCOPY TIME: DAP 1.03Gy cm2 IMPRESSION: Successful PICC line placement under ultrasound and fluoroscopic guidance.
--- NOTE | 2023-04-11 15:58 | P.PN ---
Subjective Progress Note Date: 04/11/23 Principal diagnosis: Leukocytosis possible pneumonia Patient is a 77-year-old male with a past medical history significant for COPD congestive heart failure with moderate aortic stenosis pulmonary hypertension chronic kidney disease hypertension hyperlipidemia recently admitted to hospital and treated for COPD/CHF exacerbation presenting back to the hospital with increasing shortness of breath and also have a cough. On today's evaluation that is 04/11/2023, the patient remains to be afebrile, the patient is breathing comfortably on room air, the patient continued to have a cough with minimal sputum production denies any chest pain no nausea vomiting no abdominal pain or diarrhea Objective - Vital Signs Vital signs: Vital Signs Temp 97.9 F 04/11/23 07:55 Pulse 100 04/11/23 11:22 Resp 16 04/11/23 09:25 BP 119/81 04/11/23 07:55 Pulse Ox 95 04/11/23 07:55 FiO2 Intake & Output 04/10/23 04/11/23 04/11/23 18:59 06:59 18:59 Intake Total 236 240 Output Total 1150 440 Balance 236 -1150 -200 Weight 102.1 kg Intake: Oral 236 240 Output: Urine 1150 440 Other: Voiding Method Urinal Urinal Urinal # Voids 4 1 # Bowel Movements 1 1 - Exam GENERAL DESCRIPTION: Elderly male lying in bed in no distress RESPIRATORY SYSTEM: Unlabored breathing , coarse breath sounds bilaterally HEART: S1 S2 regular rate and rhythm ABDOMEN: Soft , no tenderness EXTREMITIES: No edema feet - Labs CBC & Chem 7: 04/11/23 05:42 04/11/23 05:42 Labs: Abnormal Lab Results - Last 24 Hours (Table) 04/10/23 04/10/23 04/11/23 Range/Units 17:28 20:15 05:42 WBC (3.8-10.6) k/uL Plt Count (150-450) k/uL Neutrophils # (1.3-7.7) k/uL Lymphocytes # (1.0-4.8) k/uL Sodium 134 L (137-145) mmol/L BUN 63 H (9-20) mg/dL Creatinine 1.39 H (0.66-1.25) mg/dL Glucose 299 H (74-99) mg/dL POC Glucose (mg/dL) 369 H 334 H (70-110) mg/dL Calcium 7.9 L (8.4-10.2) mg/dL Total Protein 5.0 L (6.3-8.2) g/dL Albumin 2.7 L (3.5-5.0) g/dL 04/11/23 04/11/23 04/11/23 Range/Units 05:42 06:08 12:41 WBC 19.6 H (3.8-10.6) k/uL Plt Count 118 L (150-450) k/uL Neutrophils # 17.7 H (1.3-7.7) k/uL Lymphocytes # 0.7 L (1.0-4.8) k/uL Sodium (137-145) mmol/L BUN (9-20) mg/dL Creatinine (0.66-1.25) mg/dL Glucose (74-99) mg/dL POC Glucose (mg/dL) 311 H 133 H (70-110) mg/dL Calcium (8.4-10.2) mg/dL Total Protein (6.3-8.2) g/dL Albumin (3.5-5.0) g/dL Microbiology - Last 24 Hours (Table) 04/07/23 03:32 Blood Culture - Preliminary Blood 04/06/23 23:49 Blood Culture - Preliminary Blood 04/09/23 12:30 Gram Stain - Preliminary Bronchoalviolar Lavage - Right Bronchial Washings Culture - Preliminary Gram Neg Bacilli 04/08/23 10:30 Gram Stain - Final Sputum Sputum Culture - Final Pseudomonas aeruginosa Assessment and Plan (1) Acute exacerbation of chronic obstructive pulmonary disease Current Visit: No Status: Acute Code(s): J44.1 - CHRONIC OBSTRUCTIVE PULMONARY DISEASE W (ACUTE) EXACERBATION SNOMED Code(s): 866831582 (2) Leukocytosis Current Visit: No Status: Acute Code(s): D72.829 - ELEVATED WHITE BLOOD CELL COUNT, UNSPECIFIED SNOMED Code(s): 493811584 Plan: 1patient presented hospital with increasing shortness of breath and cough which is likely multifactorial likely related to underlying COPD exacerbation and tracheobronchitis pneumonia less likely but not entirely excluded 2- sputum for Gram stain and culture did grow pseudomonas aeruginosa 3-patient is status post bronchoscopy with evidence of retained secretions and severe tracheobronchitis cultures are growing gram-negative\ 4-patient to continue with cefepime, with his Levaquin ALLERGY he will need a PICC line for outpatient IV antibiotic which has been ordered Time with Patient: Less than 30
[2023-04-11 17:22] LABS: Glucose,Whole Blood 182 mg/dL (70-110)
[2023-04-11 20:57] LABS: Glucose,Whole Blood 321 mg/dL (70-110)
[2023-04-11] MEDS: ATORVASTATIN 40 MG TAB PO SCH (22:06)
[2023-04-12] MEDS: CEFEPIME 2 GM in SODIUM CHLORIDE 0.9% 100 ML IVPB SCH ×2 (00:16→15:26)
[2023-04-12 06:11] LABS: Glucose,Whole Blood 258 mg/dL (70-110)
[2023-04-12 06:26] LABS: Basophils % (A) 0 %; Eosinophils % (A) 0 %; HGB 14.4 gm/dL (13.0-17.5); Lymphocytes # (A) 0.8 k/uL (1.0-4.8); Lymphocytes % (A) 4 %; MCHC 32.7 g/dL (31.0-37.0); MCV 97.9 fL (80.0-100.0); Monocytes # (A) 1.1 k/uL (0-1.0); Monocytes % (A) 6 %; Neutrophils # (A) 16.5 k/uL (1.3-7.7); Neutrophils % (A) 89 %; Platelet Count 115 k/uL (150-450); RBC 4.49 m/uL (4.30-5.90); RDW 14.9 % (11.5-15.5); WBC 18.6 k/uL (3.8-10.6)
[2023-04-12 06:32] LABS: ALT 37 U/L (4-49); AST 21 U/L (17-59); African American GFR (CKD) 49 (>60 ml/min/1.73 sqM); Albumin 2.7 g/dL (3.5-5.0); Albumin/Globulin Ratio 1.2; Alkaline Phosphatase 69 U/L (38-126); Anion Gap 4 mmol/L; Blood Urea Nitrogen 60 mg/dL (9-20); Carbon Dioxide 29 mmol/L (22-30); Chloride 101 mmol/L (98-107); Globulin 2.2 g/dL; Glucose 267 mg/dL (74-99); Non-African American GFR(CKD) 43 (>60 ml/min/1.73 sqM); Sodium 134 mmol/L (137-145); Total Protein 4.9 g/dL (6.3-8.2)
[2023-04-12] MEDS: carvediloL 6.25 MG TAB PO SCH ×2 (06:44→18:28)
[2023-04-12] MEDS: INSULIN ASPART (NovoLOG) 100 UNIT/ML VIAL SQ SCH ×4 (06:52→21:01)
[2023-04-12] MEDS: INSULIN DETEMIR (LEVEMIR) 100 UNIT/ML SYR SQ SCH (06:53)
[2023-04-12] MEDS: SYMBICORT 160-4.5 MCG INHALER INHALATION SCH ×2 (07:35→21:06)
[2023-04-12] MEDS: IPRATROPIUM-ALBUTEROL 3 ML NEB INHALATION SCH ×4 (07:35→21:06)
--- NOTE | 2023-04-12 08:57 | P.PN ---
Subjective Progress Note Date: 04/12/23 HISTORY OF PRESENT ILLNESS: This is a 77-year-old male with a past medical history significant for coronary artery disease with previous CABG with LINDSEY to LAD, PCI of the ostium of the circumflex, left main, and RCA, atrial fibrillation, systolic systolic heart failure, diabetes, hypertension, and hyperlipidemia. Patient follows in the office with Dr. Vazquez. We have been asked to see the patient in consultation for SOB/congestive heart failure. Unfortunately patient has been having frequent admissions or last 6 months. He was just discharged 5 days ago and treated for COPD as well as heart failure. Had attempted to add RCA however apparently this was not covered. Patient does however believe [facility]. He states he felt "medium" in terms of somewhat better when he went home however developed progressive shortness of breath. He admits that if he is sitting upright he will feel better however cannot lie flat more than 45 degrees without being short of breath. Does have a mild cough and denies any fevers or chills however does have somewhat of a wheeze. He has been treated for COPD and states he had Agent [place] exposure in [place]. EKG reveals atrial fibrillation with mild RVR Right bundle branch block. Denies any chest pain or pressure. He was di scharged home on prednisone and does have leukocytosis with white blood cell count 15. Prior echoes have been in the range of 20-25% up to 30-35%. He has not had any defibrillator. He has been unable to tolerate much heart failure regimen with patient being on Midodrine. 04/08 Patient is seen today in follow-up. He states he is still wheezing a lot but a little bit better since he came in the hospital. He was seen this morning by pulmonary medicine with plan for bronchoscopy tomorrow. He is continued on IV Lasix 80 mg every 12 hours. He continues to have a cough and also followed by Dr. Garcia on IV antibiotics with ceftriaxone. Regarding AICD, patient understands that more information is to be obtained and discussed with him prior to moving forward. Patient also needs to be stabilized from pulmonary standpoint as well. Patient has been afebrile, heart rate in the 80s and 90s, b lood pressure 126/82, pulse ox 96% on room air. Repeat blood work reveals WBC 16.5, hemoglobin 14.8, platelet count 119. Sodium 134, potassium 3.8, chloride 97, CO2 28, BUN 55 creatinine 1.21. Blood sugars are in the 300s and 400s. 04/09 Patient is seen today in follow up. He is scheduled for Bronchoscopy this afternoon with Dr. Persaud. He is on IV Lasix 80 mg every 12 hours. Weight is down about 3 kg. Negative fluid balance 2800. Heart rate is in the 70s and 80s, blood pressure 123/83. Repeat blood work reveals WBC 15, hemoglobin 14.9.1, 133. Sodium 135, potassium 3.4, chloride 95, CO2 32, BUN 66 and creatinine 1.37. Blood sugar 407. 04/10 Patient is seen today in follow-up. He states his breathing is much improved today following bronchoscopy and lavage. He states he has a little cough that's improved a little bit of wheezing that is improved. Heart rate is 100, blood pressure 125/77, pulse ox 95% on room air. Repeat blood work reveals a bump in his creatinine to 1.58, BUN 72, potassium 3.3. WBC is 15.6, hemoglobin 14.4 platelet count 109. He is currently on Lasix 60 mg twice daily oral. 04/11 Patient states that his breathing status continues to be improved. He is having wheezing and a nonproductive cough. Blood pressure 119/81, heart rate in the 60s to 80s. Repeat BUN 63 creatinine 1.39, potassium 3.9. Telemetry is atrial fibrillation. 04/12 Patient is seen today in follow-up. He has unfortunately having more wheezing today and is scheduled for repeat bronchoscopy with Dr. Arvizu. He states he's had cough with sputum production this morning. He denies having chest pain, no lower extremity edema. Heart rate is in the 80s and 90s, blood pressure 109/64, pulse ox 93% on room air. Repeat blood work reveals WBC 18.6, hemoglobin 14.4, platelet count 115. Sodium 134, potassium 4, BUN 60 creatinine 1.54. Yesterday we transitioned IV Lasix to oral. PHYSICAL EXAM: VITAL SIGNS: Reviewed. GENERAL: Well-developed in no acute distress. HEENT: Head is normocephalic. Pupils are equal, round. Sclerae anicteric. Mucous membranes of the mouth are moist. Neck supple. No JVD or thyromegaly LUNGS: Lungs have increased rhonchi and wheezing from yesterday. HEART: Irregular rate and rhythm. S1 and S2 heard. + 2/6 systolic murmur ABDOMEN: Soft. Nondistended. Nontender. EXTREMITIES: Normal range of motion. No clubbing or cyanosis. Peripheral pulses intact. No lower extremity edema. NEUROLOGIC: Awake and alert. Oriented x 3. ASSESSMENT: Acute on chronic heart failure with reduced EF variable 20-35% range COPD Coronary artery disease with previous CABG with LINDSEY to LAD, PCI of the ostium of the circumflex, left main, and RCA Ischemic cardiomyopathy Persistent atrial fibrillation, on Eliquis, mild RVR on presentation Mild to moderate aortic stenosis Hypertension Hyperlipidemia Diabetes Leukocytosis likely related to steroids PLAN: Continue oral Lasix to 40 mg mg twice daily, monitor I&O, weight, electrolytes and renal function. Continue other cardiac medications. Evaluation for biventricular AICD and AV jimmie ablation as an outpatient Patient will be evaluated in the outpatient setting for possible Entresto as he has had history of angioedema from [facility]. Cardiology we'll sign off and follow on an as-needed basis. At time of discharge, patient will follow-up in the office with Dr. Vazquez in one week. Patient already has a scheduled appointment on 04/26. Nurse practitioner note has been reviewed, I agree with the documented findings and plan of care. Patient was seen and examined. Objective - Vital Signs Vital signs: Vital Signs Temp 97.5 F L 04/12/23 02:20 Pulse 90 04/12/23 07:47 Resp 19 04/12/23 02:20 BP 109/64 04/12/23 02:20 Pulse Ox 93 L 04/12/23 07:36 FiO2 Intake & Output 04/11/23 04/12/23 04/12/23 18:59 06:59 18:59 Intake Total 776 Output Total 640 1600 Balance 136 -1600 Weight 101.3 kg Intake: Oral 776 Output: Urine 640 1600 Other: Voiding Method Urinal Urinal # Voids 1 # Bowel Movements 1 - Labs CBC & Chem 7: 04/12/23 05:58 04/12/23 05:52 Labs: Abnormal Lab Results - Last 24 Hours (Table) 04/11/23 04/11/23 04/11/23 Range/Units 12:41 17:21 20:53 WBC (3.8-10.6) k/uL Plt Count (150-450) k/uL Neutrophils # (1.3-7.7) k/uL Lymphocytes # (1.0-4.8) k/uL Monocytes # (0-1.0) k/uL Sodium (137-145) mmol/L BUN (9-20) mg/dL Creatinine (0.66-1.25) mg/dL Glucose (74-99) mg/dL POC Glucose (mg/dL) 133 H 182 H 321 H (70-110) mg/dL Calcium (8.4-10.2) mg/dL Total Protein (6.3-8.2) g/dL Albumin (3.5-5.0) g/dL 04/12/23 04/12/23 04/12/23 Range/Units 05:52 05:58 06:10 WBC 18.6 H (3.8-10.6) k/uL Plt Count 115 L (150-450) k/uL Neutrophils # 16.5 H (1.3-7.7) k/uL Lymphocytes # 0.8 L (1.0-4.8) k/uL Monocytes # 1.1 H (0-1.0) k/uL Sodium 134 L (137-145) mmol/L BUN 60 H (9-20) mg/dL Creatinine 1.54 H (0.66-1.25) mg/dL Glucose 267 H (74-99) mg/dL POC Glucose (mg/dL) 258 H (70-110) mg/dL Calcium 8.0 L (8.4-10.2) mg/dL Total Protein 4.9 L (6.3-8.2) g/dL Albumin 2.7 L (3.5-5.0) g/dL Microbiology - Last 24 Hours (Table) 04/07/23 03:32 Blood Culture - Preliminary Blood
[2023-04-12] MEDS: DAPAGLIFLOZIN PROPANEDIOL 10 MG TABLET PO SCH (09:57)
[2023-04-12] MEDS: guaiFENesin-DM 600/30MG 1 EACH TAB.ER.12H PO SCH ×2 (09:57→21:02)
[2023-04-12] MEDS: FUROSEMIDE 40 MG TAB PO SCH ×2 (09:57→16:38)
[2023-04-12] MEDS: MAGNESIUM OXIDE 400 MG TAB PO SCH ×2 (09:58→20:33)
[2023-04-12] MEDS: predniSONE 10 MG TAB PO SCH (09:58)
[2023-04-12] MEDS: GLIMEPIRIDE 2 MG TAB PO SCH ×2 (09:58→21:02)
[2023-04-12] MEDS: POTASSIUM CHLORIDE ER 20 MEQ TAB.ER PO SCH ×2 (09:58→20:33)
[2023-04-12] MEDS: PANTOPRAZOLE 40 MG TABLET PO SCH (09:58)
[2023-04-12] MEDS: LEVOTHYROXINE 112 MCG TAB PO SCH (09:59)
[2023-04-12] MEDS: LEVOTHYROXINE 125 MCG TAB PO SCH (09:59)
[2023-04-12] MEDS: NYSTATIN 100,000 UNIT/ML SUSP 500,000 UNIT/5 ML CUP PO SCH ×4 (09:59→21:02)
[2023-04-12] MEDS: allopurinoL 300 MG TAB PO SCH (09:59)
--- NOTE | 2023-04-12 10:11 | P.PN ---
Subjective Progress Note Date: 04/12/23 Patrick Banuelos, is a 77-year-old male who presented to [facility] emergency room with a chief complaint of worsening shortness of breath, patient was recently admitted to the hospital, with similar complaint, at that time he was diagnosed with acute exacerbation of COPD and acute exacerbation of congestive heart failure, he was treated with IV Lasix IV steroids and inhaled bronchodilators, he was seen by pulmonary and cardiology during that admission, he improved and was discharged home, however patient's symptoms recurred and were worsening, he was only able to walk a few steps without having severe shortness of breath and he decided to come back to emergency room. He was evaluated in the emergency room vital examination on presentation revealed a temperature of 98.1 pulse 91 respiration 22 blood pressure 121/83 pulse ox 92% on room air Laboratory data revealed a white blood count of 15.2 hemoglobin 14.8 platelet count 119 sodium 131 BUN 55 creatinine 1.18 glucose level 394 lactic acid was elevated at 2.6 BNP 3400 Testing in the emergency room revealed chest x-ray done in the emergency room revealed cardiomegaly with mild pulmonary vascular congestion Patient was admitted to medical floor for further evaluation and treatment On review of systems patient is complaining of cough and shortness of breath otherwise he denies any complaints there is no fever or chills no headache or dizziness no chest pain no palpitation no nausea or vomiting no abdominal pain no diarrhea no blood in the stools no burning with urination no frequency or urgency and no hematuria. On 04/08/2023 patient is alert and oriented times. Patient still requiring some shortness of breath currently taking Rocephin and azithromycin. Patient was maintained on IV Lasix, IV Solu-Medrol and DuoNeb breathing treatments. Cardiology, pulmonary and infectious disease services are following. Vital signs temp 97.4, heart rate 94, respiratory 17, blood pressure 126/82 with a pulse ox 96% on room air. On 04/09/2023 patient was seen and examined on the medical floor he is alert and oriented 3 in no apparent distress he is still complaining of cough and shortness of breath otherwise he denies any complaints there is no fever or chills no headache or dizziness no chest pain no shortness of breath no cough no nausea or vomiting no abdominal pain no blood in the stools no diarrhea no burning with urination no frequency or urgency and no hematuria. Patient is scheduled for bronchoscopy this morning, he remains on IV antibiotic Rocephin and Zithromax, he is receiving IV Solu-Medrol and insulin. On 04/10/2023 alert and oriented 3. Patient reports improvement with shortness of breath and cough. Status post bronchoscopy with positive sputum for Pseudomonas aeruginosa. Antibiotics adjusted to Maxipime. Steroids also switched over to by mouth prednisone. This time patient denies chest pain. Patient denies nausea vomiting or diarrhea. Patient denies any urinary burning or frequency. On 04/11/2023 patient was seen and examined on the medical floor he is alert and oriented 3 in no apparent distress he is still complaining of cough and shortness of breath otherwise he denies any complaints there is no fever or chills no headache or dizziness no chest pain no nausea or vomiting no abdominal pain no diarrhea and no urinary symptoms. Plan per pulmonary is to proceed with repeat bronchoscopy in a.m. tomorrow On 04/12/2023 patient is alert and oriented 3. Plans for pulmonary to proceed with repeat bronchoscopy today. Patient does report improvement. Patient denies chest pain. Patient denies nausea vomiting or diarrhea. Patient denies any urinary burning or frequency. Patient has PICC line in place patient also requesting social work services for possible discharge planning to rehab facility for IV antibiotics. Objective - Vital Signs Vital signs: Vital Signs Temp 97.7 F 04/12/23 08:35 Pulse 67 04/12/23 08:35 Resp 16 04/12/23 08:35 BP 115/72 04/12/23 08:35 Pulse Ox 94 L 04/12/23 08:35 FiO2 Intake & Output 04/11/23 04/12/23 04/12/23 18:59 06:59 18:59 Intake Total 776 Output Total 640 1600 250 Balance 136 -1600 -250 Weight 101.3 kg Intake: Oral 776 Output: Urine 640 1600 250 Other: Voiding Method Urinal Urinal # Voids 1 # Bowel Movements 1 - Exam In general patient is alert and oriented x 3 in no distress HEENT head normocephalic and atraumatic Neck is supple no JVD no goiter no lymphadenopathy no carotid bruit Chest examination coarse crackles bilaterally with wheezing Cardiac exam reveals regular heart sounds S1 and S2 no gallops no murmurs Abdomen is soft nontender no organomegaly with normal bowel sounds Extremity exam reveals no edema no cyanosis or clubbing Neurological examination reveals no gross focal deficits - Labs CBC & Chem 7: 04/12/23 05:58 04/12/23 05:52 Labs: Abnormal Lab Results - Last 24 Hours (Table) 04/11/23 04/11/23 04/11/23 Range/Units 12:41 17:21 20:53 WBC (3.8-10.6) k/uL Plt Count (150-450) k/uL Neutrophils # (1.3-7.7) k/uL Lymphocytes # (1.0-4.8) k/uL Monocytes # (0-1.0) k/uL Sodium (137-145) mmol/L BUN (9-20) mg/dL Creatinine (0.66-1.25) mg/dL Glucose (74-99) mg/dL POC Glucose (mg/dL) 133 H 182 H 321 H (70-110) mg/dL Calcium (8.4-10.2) mg/dL Total Protein (6.3-8.2) g/dL Albumin (3.5-5.0) g/dL 04/12/23 04/12/23 04/12/23 Range/Units 05:52 05:58 06:10 WBC 18.6 H (3.8-10.6) k/uL Plt Count 115 L (150-450) k/uL Neutrophils # 16.5 H (1.3-7.7) k/uL Lymphocytes # 0.8 L (1.0-4.8) k/uL Monocytes # 1.1 H (0-1.0) k/uL Sodium 134 L (137-145) mmol/L BUN 60 H (9-20) mg/dL Creatinine 1.54 H (0.66-1.25) mg/dL Glucose 267 H (74-99) mg/dL POC Glucose (mg/dL) 258 H (70-110) mg/dL Calcium 8.0 L (8.4-10.2) mg/dL Total Protein 4.9 L (6.3-8.2) g/dL Albumin 2.7 L (3.5-5.0) g/dL Microbiology - Last 24 Hours (Table) 04/07/23 03:32 Blood Culture - Preliminary Blood Assessment and Plan Plan: Acute exacerbation of chronic systolic congestive heart failure Acute exacerbation of chronic obstructive pulmonary disease Positive Pseudomonas aerugninosa sputum Possible sepsis as evidenced by leukocytosis and elevated lactic acid Underlying history of moderate aortic stenosis Underlying history of severe pulmonary hypertension Underlying history of coronary artery disease with history of coronary artery bypass graft surgery Underlying history of hypertension Underlying history of hyperlipidemia Underlying history of insulin-dependent diabetes mellitus Underlying history of chronic atrial fibrillation Underlying history of chronic kidney disease stage III At this time patient was seen and examined on the telemetry floor Home medications reviewed and reordered Patient was started on IV antibiotic Rocephin and Zithromax Status post bronchoscopy Repeat bronchoscopy planned for 04/12/[address] Social work services consulted for discharge planning possible rehab placement Consultation for cardiology pulmonary and infectious disease initiated Prognosis is guarded will continue to follow closely
--- NOTE | 2023-04-12 10:45 | P.PN ---
Subjective Progress Note Date: 04/12/23 This is a pleasant 77-year-old male patient with a history of chronic obstructive pulmonary disease, chronic systolic congestive heart failure with ejection fraction 20-25%, moderate aortic stenosis, severe pulmonary hypertension, chronic kidney disease stage III, coronary artery disease with previous coronary artery bypass grafting and stent placements, hypothyroidism, hyperlipidemia, chronic atrial fibrillation anticoagulated with Eliquis, history of gallstone pancreatitis. He has had frequent admissions to the hospital for his multiple comorbidities. He was just discharged again on 04/03/2023 f ollowing his COPD/CHF exacerbation. He came back to the hospital on 04/06/2023 with worsening shortness of breath, cough and congestion. Chest x-ray shows evidence of cardiomegaly with mild pulmonary vascular congestion. EKG reveals atrial fibrillation with varying ventricular response. White count 15.2. Hemoglobin 14.8. Platelets 119. Sodium 131. Potassium 4.4. Bicarb 20. BUN 55. Creatinine 1.18. Glucose 394. Lactic acid 2.2. Troponin negative times one. ProBNP 3400. The patient is seen today 04/08/2023 in follow-up on the regular medical floor. He is currently sitting up in a chair at the bedside. Awake and alert in no acute distress. He is maintaining O2 saturations in the 90s on room air. No IV fluids. White count 16.5. Hemoglobin 14.8. Platelets 119. Sodium 134. Potassium 3.8. Bicarb 28. BUN 55. Creatinine 1.21. Glucose 315. He remains on IV diuretics. Currently in a -2.6 L balance. Remains on DuoNeb inhalations, Symbicort, IV Solu-Medrol. Antibiotics in the form of ceftriaxone and azithromycin. Pro-calcitonin was 0.10. The patient is seen today 04/09/2023 in follow-up on the regular medical floor. He is currently sitting up at the bedside. Awake and alert in no acute distress. Maintaining good O2 saturations in the 90s on room air. He's afebrile. Hemodynamically stable. Blood cultures are pending. Sputum culture pending. White count 15.0. Hemoglobin 14.9. Platelets 133. Sodium 135. Potassium 3.4. Bicarb 32. BUN 66. Creatinine 1.37. He is continued on DuoNeb inhalations, Symbicort, IV Solu-Medrol. Remains on IV diuretics. Currently in a -2.8 L balance. Antibiotics in the form of ceftriaxone. Anticoagulated with E liquis. Plan is for bronchoscopy with BAL today. The patient is seen today 04/10/2023 in follow-up on the regular medical floor. He is currently sitting up in bed. Awake and alert in no acute distress. Having breakfast. States he is breathing easier today compared to yesterday. He did undergo bronchoscopy with BAL of the right middle lobe. Many retained secretions were removed. Bronchial wash cultures are pending. He is continued on DuoNeb inhalations, Symbicort, IV Solu-Medrol. Remains on oral diuretics. Currently in a -1.2 L balance Anticoagulated with Eliquis. Antibiotics in the form of cefepime. Sputum cultures positive for pseudomonas aeruginosa. Count 15.6. Hemoglobin 14.4. Platelets 109. Sodium 133. Potassium 3.3. Bicarb 30. BUN 72. Creatinine 1.58. Glucose 326. The patient is seen today 04/11/2023 in follow-up on the regular medical floor. He is resting comfortably in bed. Awake and alert in no acute distress. He states he feels he is still quite congested and unable to expectorate with this cough. He remains on DuoNeb inhalations, Symbicort, Mucinex, prednisone. Remains on oral diuretics. Remains on antibiotics in form of cefepime. Anticoagulated with Eliquis. White count 19.6. Hemoglobin 14.7. Platelets 118. Sodium 134. Potassium 3.9. Bicarb 30. BUN 63. Creatinine 1.39. Glucose 299. The patient is seen today 04/12/2023 in follow-up on the regular medical floor. He is currently resting comfortably in bed. Awake and alert in no acute distress. He continues with a loose congested cough. Maintaining good O2 saturations in the mid 90s on room air. Afebrile. Hemodynamically stable. Continued on DuoNeb inhalations, Symbicort, prednisone taper. Remains on antibiotics in the form of cefepime. Remains on oral diuretics, currently in a -1.4 L balance. White count 18.6. Hemoglobin 14.4. Platelets 115. Sodium 134. Potassium 4.0. Bicarb 29. BUN 60. Creatinine 1.54. Glucose 267. Plan is for repeat bronchoscopy with BAL today. Objective - Vital Signs Vital signs: Vital Signs Temp 97.7 F 04/12/23 08:35 Pulse 67 04/12/23 08:35 Resp 16 04/12/23 08:35 BP 115/72 04/12/23 08:35 Pulse Ox 94 L 04/12/23 08:35 FiO2 Intake & Output 04/11/23 04/12/23 04/12/23 18:59 06:59 18:59 Intake Total 776 Output Total 640 1600 250 Balance 136 -1600 -250 Weight 101.3 kg Intake: Oral 776 Output: Urine 640 1600 250 Other: Voiding Method Urinal Urinal # Voids 1 # Bowel Movements 1 - Exam GENERAL EXAM: Alert, very pleasant 77-year-old male, on room air, comfortable in no apparent distress. HEAD: Normocephalic. EYES: Normal reaction of pupils, equal size. NOSE: Clear with pink turbinates. THROAT: No erythema or exudates. NECK: No masses, no JVD. CHEST: No chest wall deformity. LUNGS: Equal air entry with bilateral expiratory wheeze, crackles in the posterior bases, diminished. CVS: S1 and S2 normal with no audible murmur, regular rhythm. ABDOMEN: No hepatosplenomegaly, normal bowel sounds, no guarding or rigidity. SPINE: No scoliosis or deformity SKIN: No rashes CENTRAL NERVOUS SYSTEM: No focal deficits, tone is normal in all 4 extremities. EXTREMITIES: There is 1-2+ peripheral edema. No clubbing, no cyanosis. Peripheral pulses are intact. - Labs CBC & Chem 7: 04/12/23 05:58 04/12/23 05:52 Labs: Abnormal Lab Results - Last 24 Hours (Table) 04/11/23 04/11/23 04/11/23 Range/Units 12:41 17:21 20:53 WBC (3.8-10.6) k/uL Plt Count (150-450) k/uL Neutrophils # (1.3-7.7) k/uL Lymphocytes # (1.0-4.8) k/uL Monocytes # (0-1.0) k/uL Sodium (137-145) mmol/L BUN (9-20) mg/dL Creatinine (0.66-1.25) mg/dL Glucose (74-99) mg/dL POC Glucose (mg/dL) 133 H 182 H 321 H (70-110) mg/dL Calcium (8.4-10.2) mg/dL Total Protein (6.3-8.2) g/dL Albumin (3.5-5.0) g/dL 04/12/23 04/12/23 04/12/23 Range/Units 05:52 05:58 06:10 WBC 18.6 H (3.8-10.6) k/uL Plt Count 115 L (150-450) k/uL Neutrophils # 16.5 H (1.3-7.7) k/uL Lymphocytes # 0.8 L (1.0-4.8) k/uL Monocytes # 1.1 H (0-1.0) k/uL Sodium 134 L (137-145) mmol/L BUN 60 H (9-20) mg/dL Creatinine 1.54 H (0.66-1.25) mg/dL Glucose 267 H (74-99) mg/dL POC Glucose (mg/dL) 258 H (70-110) mg/dL Calcium 8.0 L (8.4-10.2) mg/dL Total Protein 4.9 L (6.3-8.2) g/dL Albumin 2.7 L (3.5-5.0) g/dL Microbiology - Last 24 Hours (Table) 04/07/23 03:32 Blood Culture - Preliminary Blood Assessment and Plan Assessment: Acute exacerbation of chronic systolic congestive heart failure with elevated proBNP level and increased vessel markings and the patient is currently on diuretics Acute exacerbation of chronic obstructive pulmonary disease complicated by pseudomonas aeruginosa. Currently on cefepime. Bronchoscopy with BAL performed on 04/09/2023. Not much improvement. Repeat bronchoscopy planned for 04/12/2023. History of systolic heart failure with ejection fraction of 20-25%, remains on diuretics, remains in a negative balance Moderate degree of aortic stenosis and severe pulmonary hypertension as noted on a previous echocardiogram that was done in December 2022 Chronic stage III kidney disease, creatinine is stable for now Former smoker Coronary artery disease with previous bypass surgery and previous coronary intervention and stenting Hypothyroidism Hyperlipidemia Chronic atrial fibrillation. The patient is currently on long-term anticoagulation with Eliquis History of gallstone pancreatitis Poor overall functional performance based on the above-mentioned multiple comorbidities Plan: The patient was seen and evaluated Labs and medications reviewed Continued on cefepime Continue DuoNeb inhalations, Symbicort, prednisone Plan for bronchoscopy with BAL again today We will continue to follow I have personally seen and examined the patient, performed the documentation and the assessment and plan as written. Number of minutes spent on the visit: 10.
[2023-04-12 12:11] LABS: Glucose,Whole Blood 120 mg/dL (70-110)
[2023-04-12] MEDS: LACTATED RINGERS 1,000 ML IV SCH (14:00)
[2023-04-12] MEDS: ASPIRIN 81 MG PO SCH (14:00)
[2023-04-12] MEDS ORDERED: IV FLUID CONTINUATION 200 ML IV ONE (14:22)
[2023-04-12] MEDS ORDERED: KETAMINE 10 MG/ML 20 ML VIAL ONE (14:24)
[2023-04-12] MEDS ORDERED: LIDOCAINE 2% INJ 20 MG/ML (2 ML VIAL) ONE (14:24)
[2023-04-12] MEDS ORDERED: PROPOFOL 10 MG/ML 20 ML VIAL IV ONE (14:24)
[2023-04-12] MEDS ORDERED: fentaNYL (PF) 50 MCG/ML 2 ML AMP ONE (14:24)
--- NOTE | 2023-04-12 15:54 | P.PN ---
Subjective Progress Note Date: 04/12/23 Principal diagnosis: Leukocytosis possible pneumonia Patient is a 77-year-old male with a past medical history significant for COPD congestive heart failure with moderate aortic stenosis pulmonary hypertension chronic kidney disease hypertension hyperlipidemia recently admitted to hospital and treated for COPD/CHF exacerbation presenting back to the hospital with increasing shortness of breath and also have a cough. On today's evaluation that is 04/12/2023, the patient denies any fever and chills, the patient is breathing comfortably on room air, the patient continued to have a cough with occasional sputum production, the patient denies any chest pain no nausea vomiting no abdominal pain or diarrhea Objective - Vital Signs Vital signs: Vital Signs Temp 97.7 F 04/12/23 08:35 Pulse 86 04/12/23 11:08 Resp 16 04/12/23 08:35 BP 115/72 04/12/23 08:35 Pulse Ox 94 L 04/12/23 08:35 FiO2 Intake & Output 04/11/23 04/12/23 04/12/23 18:59 06:59 18:59 Intake Total 776 Output Total 640 1600 750 Balance 136 -1600 -750 Weight 101.3 kg Intake: Oral 776 Output: Urine 640 1600 750 Other: Voiding Method Urinal Urinal # Voids 1 # Bowel Movements 1 - Exam GENERAL DESCRIPTION: Elderly male lying in bed in no distress RESPIRATORY SYSTEM: Unlabored breathing , coarse breath sounds bilaterally HEART: S1 S2 regular rate and rhythm ABDOMEN: Soft , no tenderness EXTREMITIES: No edema feet - Labs CBC & Chem 7: 04/12/23 05:58 04/12/23 05:52 Labs: Abnormal Lab Results - Last 24 Hours (Table) 04/11/23 04/11/23 04/12/23 Range/Units 17:21 20:53 05:52 WBC (3.8-10.6) k/uL Plt Count (150-450) k/uL Neutrophils # (1.3-7.7) k/uL Lymphocytes # (1.0-4.8) k/uL Monocytes # (0-1.0) k/uL Sodium 134 L (137-145) mmol/L BUN 60 H (9-20) mg/dL Creatinine 1.54 H (0.66-1.25) mg/dL Glucose 267 H (74-99) mg/dL POC Glucose (mg/dL) 182 H 321 H (70-110) mg/dL Calcium 8.0 L (8.4-10.2) mg/dL Total Protein 4.9 L (6.3-8.2) g/dL Albumin 2.7 L (3.5-5.0) g/dL 04/12/23 04/12/23 04/12/23 Range/Units 05:58 06:10 12:10 WBC 18.6 H (3.8-10.6) k/uL Plt Count 115 L (150-450) k/uL Neutrophils # 16.5 H (1.3-7.7) k/uL Lymphocytes # 0.8 L (1.0-4.8) k/uL Monocytes # 1.1 H (0-1.0) k/uL Sodium (137-145) mmol/L BUN (9-20) mg/dL Creatinine (0.66-1.25) mg/dL Glucose (74-99) mg/dL POC Glucose (mg/dL) 258 H 120 H (70-110) mg/dL Calcium (8.4-10.2) mg/dL Total Protein (6.3-8.2) g/dL Albumin (3.5-5.0) g/dL Microbiology - Last 24 Hours (Table) 04/06/23 23:49 Blood Culture - Final Blood 04/07/23 03:32 Blood Culture - Preliminary Blood Assessment and Plan (1) Acute exacerbation of chronic obstructive pulmonary disease Current Visit: No Status: Acute Code(s): J44.1 - CHRONIC OBSTRUCTIVE PULMON RENATA DISEASE W (ACUTE) EXACERBATION SNOMED Code(s): 990970455 (2) Leukocytosis Current Visit: No Status: Acute Code(s): D72.829 - ELEVATED WHITE BLOOD CELL COUNT, UNSPECIFIED SNOMED Code(s): 126136390 Plan: 1patient presented hospital with increasing shortness of breath and cough which is likely multifactorial likely related to underlying COPD exacerbation and tracheobronchitis pneumonia less likely but not entirely excluded 2- sputum for Gram stain and culture did grow pseudomonas aeruginosa 3-patient is status post bronchoscopy with evidence of retained secretions and severe tracheobronchitis cultures are growing gram-negative\ 4-patient did have Levaquin ALLERGY, plan is for continuation of IV cefepime 2 weeks and monitor clinical course closely Time with Patient: Less than 30
[2023-04-12] MEDS: GABAPENTIN 400 MG CAP PO SCH ×3 (16:37→20:33)
[2023-04-12 16:52] LABS: Glucose,Whole Blood 118 mg/dL (70-110)
[2023-04-12] MEDS ORDERED: DILTIAZEM 125 MG in SODIUM CHLORIDE 0.9% 100 ML IV SCH (18:15)
[2023-04-12] MEDS: ATORVASTATIN 40 MG TAB PO SCH (20:33)
--- NOTE | 2023-04-12 20:37 | PCN ---
PROCEDURE NOTE This is a Pulmonary/Critical Care procedure. PROCEDURES PERFORMED: Bronchoscopy, airway examination, therapeutic lavage, and bronchoalveolar lavage. PREOPERATIVE DIAGNOSES: Retained secretions, chronic obstructive pulmonary disease exacerbation, and purulent tracheobronchitis. POSTOPERATIVE DIAGNOSES: Retained secretions, chronic obstructive pulmonary disease exacerbation, and purulent tracheobronchitis. 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 The patient's procedure took place in room #1 [facility]. There were informed consent and universal time-out. DESCRIPTION OF PROCEDURE: After the patient was adequately sedated and being fully monitored, the bronchoscope was pushed through the right nostril. It passed through the right nasopharynx into the oropharynx. The hypopharynx was identified and topicalized. The hypopharyngeal structures including anterior commissure, true cords, false cords, arytenoids, piriform sinuses - right and left, valleculae, and epiglottis. The glottic opening was topicalized. The trachea was entered. The trachea appeared relatively normal, but there were thick secretions noted throughout. They were suctioned with the aid of saline lavage. The right and left mainstem were topicalized. Tracheal adebayo was sharp. The right upper lobe and its 3 segments, right middle lobe and its 2 segments, right lower lobe and its 5 segments, left upper lobe proper and its 2 segments, lingula and its 2 segments, and left lower lobe and its 4 segments all had similar findings of diffuse airways erythema and hyperemia. The mucosa was friable. The mucosa bled easily. There was some vascular engorgement. There was no dominant mass or tumor. There were thick viscid purulent-looking secretions noted throughout. They were throughout the entire right and left lung. The bronchoscope was then wedged into the right middle lobe. We did a formal BAL. 30 mL of turbid fluid was recovered. The patient tolerated the procedure well without any major complications. The bronchoscope will be withdrawn, and the patient will be recovered. The fluid was sent for analysis including cytology, cell count and differential, and microbiology. MMODL / IJN: [id number] /
[2023-04-12 20:54] LABS: Glucose,Whole Blood 519 mg/dL (70-110)
[2023-04-12 20:54] LABS: Glucose,Whole Blood 492 mg/dL (70-110)
[2023-04-13] MEDS: CEFEPIME 2 GM in SODIUM CHLORIDE 0.9% 100 ML IVPB SCH ×2 (00:24→13:27)
[2023-04-13 06:02] LABS: Glucose,Whole Blood 248 mg/dL (70-110)
[2023-04-13] MEDS: carvediloL 6.25 MG TAB PO SCH ×2 (06:16→17:39)
[2023-04-13] MEDS: INSULIN ASPART (NovoLOG) 100 UNIT/ML VIAL SQ SCH ×4 (06:16→22:05)
[2023-04-13 06:55] LABS: Basophils % (A) 0 %; Eosinophils # (A) 0.1 k/uL (0-0.7); Eosinophils % (A) 0 %; HCT 47.3 % (39.0-53.0); Lymphocytes # (A) 1.2 k/uL (1.0-4.8); Lymphocytes % (A) 5 %; MCH 31.7 pg (25.0-35.0); MCHC 31.7 g/dL (31.0-37.0); MCV 99.9 fL (80.0-100.0); Macrocytosis Slight; Mean Platelet Volume 8.4; Monocytes # (A) 1.3 k/uL (0-1.0); Monocytes % (A) 5 %; Neutrophils % (A) 89 %; Platelet Count 108 k/uL (150-450); RBC 4.74 m/uL (4.30-5.90); RDW 14.8 % (11.5-15.5); WBC 24.6 k/uL (3.8-10.6)
[2023-04-13 07:10] LABS: ALT 58 U/L (4-49); AST 29 U/L (17-59); African American GFR (CKD) 54 (>60 ml/min/1.73 sqM); Albumin 2.8 g/dL (3.5-5.0); Albumin/Globulin Ratio 1.3; Alkaline Phosphatase 78 U/L (38-126); Anion Gap 4 mmol/L; Blood Urea Nitrogen 53 mg/dL (9-20); Carbon Dioxide 34 mmol/L (22-30); Chloride 95 mmol/L (98-107); Globulin 2.2 g/dL; Glucose 249 mg/dL (74-99); Non-African American GFR(CKD) 47 (>60 ml/min/1.73 sqM); Potassium 4.3 mmol/L (3.5-5.1); Sodium 133 mmol/L (137-145); Total Bilirubin 1.3 mg/dL (0.2-1.3)
[2023-04-13] MEDS: SYMBICORT 160-4.5 MCG INHALER INHALATION SCH ×2 (07:24→21:14)
[2023-04-13] MEDS: IPRATROPIUM-ALBUTEROL 3 ML NEB INHALATION SCH ×4 (07:40→21:14)
[2023-04-13] MEDS: INSULIN DETEMIR (LEVEMIR) 100 UNIT/ML SYR SQ SCH (08:22)
[2023-04-13] MEDS: guaiFENesin-DM 600/30MG 1 EACH TAB.ER.12H PO SCH ×2 (10:50→20:12)
[2023-04-13] MEDS: ASPIRIN 81 MG PO SCH (10:51)
[2023-04-13] MEDS: predniSONE 10 MG TAB PO SCH (10:51)
[2023-04-13] MEDS: POTASSIUM CHLORIDE ER 20 MEQ TAB.ER PO SCH ×2 (10:51→20:12)
[2023-04-13] MEDS: FUROSEMIDE 40 MG TAB PO SCH ×2 (10:51→17:39)
[2023-04-13] MEDS: DAPAGLIFLOZIN PROPANEDIOL 10 MG TABLET PO SCH (10:51)
[2023-04-13] MEDS: NYSTATIN 100,000 UNIT/ML SUSP 500,000 UNIT/5 ML CUP PO SCH ×4 (10:51→20:12)
[2023-04-13] MEDS: LEVOTHYROXINE 125 MCG TAB PO SCH (10:52)
[2023-04-13] MEDS: GLIMEPIRIDE 2 MG TAB PO SCH ×2 (10:52→20:12)
[2023-04-13] MEDS: allopurinoL 300 MG TAB PO SCH (10:52)
[2023-04-13] MEDS: MAGNESIUM OXIDE 400 MG TAB PO SCH ×2 (10:52→20:12)
[2023-04-13] MEDS: LEVOTHYROXINE 112 MCG TAB PO SCH (10:52)
[2023-04-13] MEDS: PANTOPRAZOLE 40 MG TABLET PO SCH (10:53)
--- NOTE | 2023-04-13 10:56 | P.PN ---
Subjective Progress Note Date: 04/13/23 This is a pleasant 77-year-old male patient with a history of chronic obstructive pulmonary disease, chronic systolic congestive heart failure with ejection fraction 20-25%, moderate aortic stenosis, severe pulmonary hypertension, chronic kidney disease stage III, coronary artery disease with previous coronary artery bypass grafting and stent placements, hypothyroidism, hyperlipidemia, chronic atrial fibrillation anticoagulated with Eliquis, history of gallstone pancreatitis. He has had frequent admissions to the hospital for his multiple comorbidities. He was just discharged again on 04/03/2023 f ollowing his COPD/CHF exacerbation. He came back to the hospital on 04/06/2023 with worsening shortness of breath, cough and congestion. Chest x-ray shows evidence of cardiomegaly with mild pulmonary vascular congestion. EKG reveals atrial fibrillation with varying ventricular response. White count 15.2. Hemoglobin 14.8. Platelets 119. Sodium 131. Potassium 4.4. Bicarb 20. BUN 55. Creatinine 1.18. Glucose 394. Lactic acid 2.2. Troponin negative times one. ProBNP 3400. The patient is seen today 04/08/2023 in follow-up on the regular medical floor. He is currently sitting up in a chair at the bedside. Awake and alert in no acute distress. He is maintaining O2 saturations in the 90s on room air. No IV fluids. White count 16.5. Hemoglobin 14.8. Platelets 119. Sodium 134. Potassium 3.8. Bicarb 28. BUN 55. Creatinine 1.21. Glucose 315. He remains on IV diuretics. Currently in a -2.6 L balance. Remains on DuoNeb inhalations, Symbicort, IV Solu-Medrol. Antibiotics in the form of ceftriaxone and azithromycin. Pro-calcitonin was 0.10. The patient is seen today 04/09/2023 in follow-up on the regular medical floor. He is currently sitting up at the bedside. Awake and alert in no acute distress. Maintaining good O2 saturations in the 90s on room air. He's afebrile. Hemodynamically stable. Blood cultures are pending. Sputum culture pending. White count 15.0. Hemoglobin 14.9. Platelets 133. Sodium 135. Potassium 3.4. Bicarb 32. BUN 66. Creatinine 1.37. He is continued on DuoNeb inhalations, Symbicort, IV Solu-Medrol. Remains on IV diuretics. Currently in a -2.8 L balance. Antibiotics in the form of ceftriaxone. Anticoagulated with E liquis. Plan is for bronchoscopy with BAL today. The patient is seen today 04/10/2023 in follow-up on the regular medical floor. He is currently sitting up in bed. Awake and alert in no acute distress. Having breakfast. States he is breathing easier today compared to yesterday. He did undergo bronchoscopy with BAL of the right middle lobe. Many retained secretions were removed. Bronchial wash cultures are pending. He is continued on DuoNeb inhalations, Symbicort, IV Solu-Medrol. Remains on oral diuretics. Currently in a -1.2 L balance Anticoagulated with Eliquis. Antibiotics in the form of cefepime. Sputum cultures positive for pseudomonas aeruginosa. Count 15.6. Hemoglobin 14.4. Platelets 109. Sodium 133. Potassium 3.3. Bicarb 30. BUN 72. Creatinine 1.58. Glucose 326. The patient is seen today 04/11/2023 in follow-up on the regular medical floor. He is resting comfortably in bed. Awake and alert in no acute distress. He states he feels he is still quite congested and unable to expectorate with this cough. He remains on DuoNeb inhalations, Symbicort, Mucinex, prednisone. Remains on oral diuretics. Remains on antibiotics in form of cefepime. Anticoagulated with Eliquis. White count 19.6. Hemoglobin 14.7. Platelets 118. Sodium 134. Potassium 3.9. Bicarb 30. BUN 63. Creatinine 1.39. Glucose 299. The patient is seen today 04/12/2023 in follow-up on the regular medical floor. He is currently resting comfortably in bed. Awake and alert in no acute distress. He continues with a loose congested cough. Maintaining good O2 saturations in the mid 90s on room air. Afebrile. Hemodynamically stable. Continued on DuoNeb inhalations, Symbicort, prednisone taper. Remains on antibiotics in the form of cefepime. Remains on oral diuretics, currently in a -1.4 L balance. White count 18.6. Hemoglobin 14.4. Platelets 115. Sodium 134. Potassium 4.0. Bicarb 29. BUN 60. Creatinine 1.54. Glucose 267. Plan is for repeat bronchoscopy with BAL today. The patient is seen today 04/13/2023 in follow-up on the regular medical floor. He is sitting up in bed. Awake and alert in no acute distress. Breathing easier today compared to yesterday. He did undergo a repeat bronchoscopy with BAL on 04/12/2023. Previous BAL cultures were positive for pseudomonas. He remains on cefepime. PICC line is in place to the left upper extremity. He remains on DuoNeb inhalations, Symbicort, prednisone taper. Anticoagulated with Eliquis. Remains on oral diuretics. White count 24.6. Hemoglobin 15.0. Platelets 108. Sodium 133. Potassium 4.3. Bicarb 34. BUN 53. Creatinine 1.43. Glucose 249. Objective - Vital Signs Vital signs: Vital Signs Temp 98.2 F 04/13/23 07:00 Pulse 78 04/13/23 07:40 Resp 16 04/13/23 07:00 BP 104/66 04/13/23 07:00 Pulse Ox 94 L 04/13/23 07:25 FiO2 Intake & Output 04/12/23 04/13/23 04/13/23 18:59 06:59 18:59 Intake Total 340 118 Output Total 1150 900 Balance -810 -900 118 Weight 101 kg Intake: IV 100 Oral 240 118 Output: Urine 1150 900 Other: Voiding Method Urinal # Voids 1 1 # Bowel Movements 1 - Exam GENERAL EXAM: Alert, 77-year-old male, sitting up in bed, on room air, comfortable in no apparent distress. HEAD: Normocephalic. EYES: Normal reaction of pupils, equal size. NOSE: Clear with pink turbinates. THROAT: No erythema or exudates. NECK: No masses, no JVD. CHEST: No chest wall deformity. LUNGS: Equal air entry with bilateral expiratory wheeze, crackles in the posterior bases, diminished. CVS: S1 and S2 normal with no audible murmur, regular rhythm. ABDOMEN: No hepatosplenomegaly, normal bowel sounds, no guarding or rigidity. SPINE: No scoliosis or deformity SKIN: No rashes CENTRAL NERVOUS SYSTEM: No focal deficits, tone is normal in all 4 extremities. EXTREMITIES: There is 1-2+ peripheral edema. No clubbing, no cyanosis. Peripheral pulses are intact. - Labs CBC & Chem 7: 04/13/23 06:17 04/13/23 06:17 Labs: Abnormal Lab Results - Last 24 Hours (Table) 04/12/23 04/12/23 04/12/23 Range/Units 12:10 16:51 20:51 WBC (3.8-10.6) k/uL Plt Count (150-450) k/uL Neutrophils # (1.3-7.7) k/uL Monocytes # (0-1.0) k/uL Sodium (137-145) mmol/L Chloride (98-107) mmol/L Carbon Dioxide (22-30) mmol/L BUN (9-20) mg/dL Creatinine (0.66-1.25) mg/dL Glucose (74-99) mg/dL POC Glucose (mg/dL) 120 H 118 H 519 H (70-110) mg/dL Calcium (8.4-10.2) mg/dL ALT (4-49) U/L Total Protein (6.3-8.2) g/dL Albumin (3.5-5.0) g/dL 04/12/23 04/13/23 04/13/23 Range/Units 20:52 06:02 06:17 WBC 24.6 H (3.8-10.6) k/uL Plt Count 108 L (150-450) k/uL Neutrophils # 22.0 H (1.3-7.7) k/uL Monocytes # 1.3 H (0-1.0) k/uL Sodium (137-145) mmol/L Chloride (98-107) mmol/L Carbon Dioxide (22-30) mmol/L BUN (9-20) mg/dL Creatinine (0.66-1.25) mg/dL Glucose (74-99) mg/dL POC Glucose (mg/dL) 492 H 248 H (70-110) mg/dL Calcium (8.4-10.2) mg/dL ALT (4-49) U/L Total Protein (6.3-8.2) g/dL Albumin (3.5-5.0) g/dL 04/13/23 Range/Units 06:17 WBC (3.8-10.6) k/uL Plt Count (150-450) k/uL Neutrophils # (1.3-7.7) k/uL Monocytes # (0-1.0) k/uL Sodium 133 L (137-145) mmol/L Chloride 95 L (98-107) mmol/L Carbon Dioxide 34 H (22-30) mmol/L BUN 53 H (9-20) mg/dL Creatinine 1.43 H (0.66-1.25) mg/dL Glucose 249 H (74-99) mg/dL POC Glucose (mg/dL) (70-110) mg/dL Calcium 8.0 L (8.4-10.2) mg/dL ALT 58 H (4-49) U/L Total Protein 5.0 L (6.3-8.2) g/dL Albumin 2.8 L (3.5-5.0) g/dL Microbiology - Last 24 Hours (Table) 04/12/23 14:30 Gram Stain - Preliminary Bronchial Washings - Right 04/09/23 12:30 Gram Stain - Final Bronchoalviolar Lavage - Right Bronchial Washings Culture - Final Pseudomonas aeruginosa 04/06/23 23:49 Blood Culture - Final Blood Assessment and Plan Assessment: Acute exacerbation of chronic systolic congestive heart failure with elevated proBNP level and increased vessel markings and the patient is currently on diuretics Acute exacerbation of chronic obstructive pulmonary disease complicated by pseudomonas aeruginosa. Currently on cefepime. Bronchoscopy with BAL performed on 04/09/2023. Not much improvement. Repeat bronchoscopy done 04/12/2023. History of systolic heart failure with ejection fraction of 20-25%, remains on diuretics, remains in a negative balance Moderate degree of aortic stenosis and severe pulmonary hypertension as noted on a previous echocardiogram that was done in December 2022 Chronic stage III kidney disease, creatinine is stable for now Former smoker Coronary artery disease with previous bypass surgery and previous coronary intervention and stenting Hypothyroidism Hyperlipidemia Chronic atrial fibrillation. The patient is currently on long-term anticoagulation with Eliquis History of gallstone pancreatitis Poor overall functional performance based on the above-mentioned multiple comorbidities Plan: The patient was seen and evaluated Labs and medications reviewed Continued on cefepime PICC line in place for continued antibiotics Remains stable and on room air We will continue to follow I have personally seen and examined the patient, performed the documentation and the assessment and plan as written. Number of minutes spent on the visit: 10.
--- NOTE | 2023-04-13 12:12 | P.PN ---
Subjective Progress Note Date: 04/13/23 Patrick Banuelos, is a 77-year-old male who presented to [facility] emergency room with a chief complaint of worsening shortness of breath, patient was recently admitted to the hospital, with similar complaint, at that time he was diagnosed with acute exacerbation of COPD and acute exacerbation of congestive heart failure, he was treated with IV Lasix IV steroids and inhaled bronchodilators, he was seen by pulmonary and cardiology during that admission, he improved and was discharged home, however patient's symptoms recurred and were worsening, he was only able to walk a few steps without having severe shortness of breath and he decided to come back to emergency room. He was evaluated in the emergency room vital examination on presentation revealed a temperature of 98.1 pulse 91 respiration 22 blood pressure 121/83 pulse ox 92% on room air Laboratory data revealed a white blood count of 15.2 hemoglobin 14.8 platelet count 119 sodium 131 BUN 55 creatinine 1.18 glucose level 394 lactic acid was elevated at 2.6 BNP 3400 Testing in the emergency room revealed chest x-ray done in the emergency room revealed cardiomegaly with mild pulmonary vascular congestion Patient was admitted to medical floor for further evaluation and treatment On review of systems patient is complaining of cough and shortness of breath otherwise he denies any complaints there is no fever or chills no headache or dizziness no chest pain no palpitation no nausea or vomiting no abdominal pain no diarrhea no blood in the stools no burning with urination no frequency or urgency and no hematuria. On 04/08/2023 patient is alert and oriented times. Patient still requiring some shortness of breath currently taking Rocephin and azithromycin. Patient was maintained on IV Lasix, IV Solu-Medrol and DuoNeb breathing treatments. Cardiology, pulmonary and infectious disease services are following. Vital signs temp 97.4, heart rate 94, respiratory 17, blood pressure 126/82 with a pulse ox 96% on room air. On 04/09/2023 patient was seen and examined on the medical floor he is alert and oriented 3 in no apparent distress he is still complaining of cough and shortness of breath otherwise he denies any complaints there is no fever or chills no headache or dizziness no chest pain no shortness of breath no cough no nausea or vomiting no abdominal pain no blood in the stools no diarrhea no burning with urination no frequency or urgency and no hematuria. Patient is scheduled for bronchoscopy this morning, he remains on IV antibiotic Rocephin and Zithromax, he is receiving IV Solu-Medrol and insulin. On 04/10/2023 alert and oriented 3. Patient reports improvement with shortness of breath and cough. Status post bronchoscopy with positive sputum for Pseudomonas aeruginosa. Antibiotics adjusted to Maxipime. Steroids also switched over to by mouth prednisone. This time patient denies chest pain. Patient denies nausea vomiting or diarrhea. Patient denies any urinary burning or frequency. On 04/11/2023 patient was seen and examined on the medical floor he is alert and oriented 3 in no apparent distress he is still complaining of cough and shortness of breath otherwise he denies any complaints there is no fever or chills no headache or dizziness no chest pain no nausea or vomiting no abdominal pain no diarrhea and no urinary symptoms. Plan per pulmonary is to proceed with repeat bronchoscopy in a.m. tomorrow On 04/12/2023 patient is alert and oriented 3. Plans for pulmonary to proceed with repeat bronchoscopy today. Patient does report improvement. Patient denies chest pain. Patient denies nausea vomiting or diarrhea. Patient denies any urinary burning or frequency. Patient has PICC line in place patient also requesting social work services for possible discharge planning to rehab facility for IV antibiotics. On 04/13/2023 patient was seen and examined on the medical floor he is alert and oriented 3 in no apparent distress he is still complaining of cough and shortness of breath otherwise he denies any complaints there is no fever or chills no headache or dizziness no chest pain no nausea or vomiting no abdominal pain no diarrhea and no urinary symptoms. Continue with IV antibiotics at this time, PICC line is in place and functioning well, plan for transfer to [facility] on Saturday. Objective - Vital Signs Vital signs: Vital Signs Temp 98.2 F 04/13/23 07:00 Pulse 78 04/13/23 07:40 Resp 16 04/13/23 07:00 BP 104/66 04/13/23 07:00 Pulse Ox 94 L 04/13/23 07:25 FiO2 Intake & Output 04/12/23 04/13/23 04/13/23 18:59 06:59 18:59 Intake Total 340 118 Output Total 1150 900 Balance -810 -900 118 Weight 101 kg Intake: IV 100 Oral 240 118 Output: Urine 1150 900 Other: Voiding Method Urinal # Voids 1 1 # Bowel Movements 1 - Exam In general patient is alert and oriented x 3 in no distress HEENT head normocephalic and atraumatic Neck is supple no JVD no goiter no lymphadenopathy no carotid bruit Chest examination coarse crackles bilaterally with wheezing Cardiac exam reveals regular heart sounds S1 and S2 no gallops no murmurs Abdomen is soft nontender no organomegaly with normal bowel sounds Extremity exam reveals no edema no cyanosis or clubbing Neurological examination reveals no gross focal deficits - Labs CBC & Chem 7: 04/13/23 06:17 04/13/23 06:17 Labs: Abnormal Lab Results - Last 24 Hours (Table) 04/12/23 04/12/23 04/12/23 Range/Units 12:10 16:51 20:51 WBC (3.8-10.6) k/uL Plt Count (150-450) k/uL Neutrophils # (1.3-7.7) k/uL Monocytes # (0-1.0) k/uL Sodium (137-145) mmol/L Chloride (98-107) mmol/L Carbon Dioxide (22-30) mmol/L BUN (9-20) mg/dL Creatinine (0.66-1.25) mg/dL Glucose (74-99) mg/dL POC Glucose (mg/dL) 120 H 118 H 519 H (70-110) mg/dL Calcium (8.4-10.2) mg/dL ALT (4-49) U/L Total Protein (6.3-8.2) g/dL Albumin (3.5-5.0) g/dL 04/12/23 04/13/23 04/13/23 Range/Units 20:52 06:02 06:17 WBC 24.6 H (3.8-10.6) k/uL Plt Count 108 L (150-450) k/uL Neutrophils # 22.0 H (1.3-7.7) k/uL Monocytes # 1.3 H (0-1.0) k/uL Sodium (137-145) mmol/L Chloride (98-107) mmol/L Carbon Dioxide (22-30) mmol/L BUN (9-20) mg/dL Creatinine (0.66-1.25) mg/dL Glucose (74-99) mg/dL POC Glucose (mg/dL) 492 H 248 H (70-110) mg/dL Calcium (8.4-10.2) mg/dL ALT (4-49) U/L Total Protein (6.3-8.2) g/dL Albumin (3.5-5.0) g/dL 04/13/23 Range/Units 06:17 WBC (3.8-10.6) k/uL Plt Count (150-450) k/uL Neutrophils # (1.3-7.7) k/uL Monocytes # (0-1.0) k/uL Sodium 133 L (137-145) mmol/L Chloride 95 L (98-107) mmol/L Carbon Dioxide 34 H (22-30) mmol/L BUN 53 H (9-20) mg/dL Creatinine 1.43 H (0.66-1.25) mg/dL Glucose 249 H (74-99) mg/dL POC Glucose (mg/dL) (70-110) mg/dL Calcium 8.0 L (8.4-10.2) mg/dL ALT 58 H (4-49) U/L Total Protein 5.0 L (6.3-8.2) g/dL Albumin 2.8 L (3.5-5.0) g/dL Microbiology - Last 24 Hours (Table) 04/12/23 14:30 Gram Stain - Preliminary Bronchial Washings - Right 04/09/23 12:30 Gram Stain - Final Bronchoalviolar Lavage - Right Bronchial Washings Culture - Final Pseudomonas aeruginosa 04/06/23 23:49 Blood Culture - Final Blood Assessment and Plan Plan: Acute exacerbation of chronic systolic congestive heart failure Acute exacerbation of chronic obstructive pulmonary disease Positive Pseudomonas aerugninosa sputum Possible sepsis as evidenced by leukocytosis and elevated lactic acid Underlying history of moderate aortic stenosis Underlying history of severe pulmonary hypertension Underlying history of coronary artery disease with history of coronary artery bypass graft surgery Underlying history of hypertension Underlying history of hyperlipidemia Underlying history of insulin-dependent diabetes mellitus Underlying history of chronic atrial fibrillation Underlying history of chronic kidney disease stage III At this time patient was seen and examined on the telemetry floor Home medications reviewed and reordered Patient was started on IV antibiotic Rocephin and Zithromax Status post bronchoscopy Repeat bronchoscopy planned for 04/12/[address] Social work services consulted for discharge planning possible rehab placement Consultation for cardiology pulmonary and infectious disease initiated Prognosis is guarded will continue to follow closely
[2023-04-13 12:47] LABS: Glucose,Whole Blood 353 mg/dL (70-110)
[2023-04-13] MEDS: LACTATED RINGERS 1,000 ML IV SCH (13:28)
[2023-04-13] MEDS: GABAPENTIN 400 MG CAP PO SCH ×3 (14:45→22:05)
[2023-04-13 17:02] LABS: Glucose,Whole Blood 191 mg/dL (70-110)
[2023-04-13] MEDS ORDERED: DILTIAZEM 125 MG in SODIUM CHLORIDE 0.9% 100 ML IV SCH (19:00)
[2023-04-13] MEDS: APIXABAN 5 MG TAB PO SCH (20:12)
[2023-04-13] MEDS: ATORVASTATIN 40 MG TAB PO SCH (20:12)
[2023-04-13 21:45] LABS: Glucose,Whole Blood 461 mg/dL (70-110)
[2023-04-14] MEDS: CEFEPIME 2 GM in SODIUM CHLORIDE 0.9% 100 ML IVPB SCH ×2 (00:59→13:39)
[2023-04-14 06:21] LABS: Glucose,Whole Blood 175 mg/dL (70-110)
[2023-04-14] MEDS: carvediloL 6.25 MG TAB PO SCH (06:31)
[2023-04-14] MEDS: INSULIN ASPART (NovoLOG) 100 UNIT/ML VIAL SQ SCH ×4 (06:31→21:31)
[2023-04-14 06:59] LABS: ALT 44 U/L (4-49); AST 20 U/L (17-59); African American GFR (CKD) 56 (>60 ml/min/1.73 sqM); Albumin 2.8 g/dL (3.5-5.0); Albumin/Globulin Ratio 1.2; Alkaline Phosphatase 67 U/L (38-126); Anion Gap 2 mmol/L; Blood Urea Nitrogen 51 mg/dL (9-20); Carbon Dioxide 33 mmol/L (22-30); Chloride 98 mmol/L (98-107); Globulin 2.4 g/dL; Glucose 195 mg/dL (74-99); Non-African American GFR(CKD) 49 (>60 ml/min/1.73 sqM); Potassium 4.5 mmol/L (3.5-5.1); Sodium 133 mmol/L (137-145); Total Bilirubin 1.3 mg/dL (0.2-1.3); Total Protein 5.2 g/dL (6.3-8.2)
[2023-04-14 07:19] LABS: Basophils % (A) 0 %; Eosinophils # (A) 0.1 k/uL (0-0.7); Eosinophils % (A) 0 %; HCT 45.2 % (39.0-53.0); HGB 14.7 gm/dL (13.0-17.5); Lymphocytes # (A) 0.8 k/uL (1.0-4.8); Lymphocytes % (A) 4 %; MCHC 32.5 g/dL (31.0-37.0); MCV 98.5 fL (80.0-100.0); Mean Platelet Volume 9.1; Monocytes # (A) 1.1 k/uL (0-1.0); Monocytes % (A) 6 %; Neutrophils # (A) 17.3 k/uL (1.3-7.7); Neutrophils % (A) 89 %; RBC 4.59 m/uL (4.30-5.90); RDW 14.6 % (11.5-15.5); WBC 19.5 k/uL (3.8-10.6)
[2023-04-14 07:42] LABS: Platelet Count 95 k/uL (150-450)
[2023-04-14 07:44] LABS: RBC Morphology Normal
[2023-04-14] MEDS: PANTOPRAZOLE 40 MG TABLET PO SCH (07:53)
[2023-04-14] MEDS: guaiFENesin-DM 600/30MG 1 EACH TAB.ER.12H PO SCH ×2 (07:53→20:04)
[2023-04-14] MEDS: INSULIN DETEMIR (LEVEMIR) 100 UNIT/ML SYR SQ SCH (07:53)
[2023-04-14] MEDS: ASPIRIN 81 MG PO SCH (07:53)
[2023-04-14] MEDS: GLIMEPIRIDE 2 MG TAB PO SCH ×2 (07:54→20:05)
[2023-04-14] MEDS: FUROSEMIDE 40 MG TAB PO SCH ×2 (07:54→17:49)
[2023-04-14] MEDS: POTASSIUM CHLORIDE ER 20 MEQ TAB.ER PO SCH ×2 (07:55→20:05)
[2023-04-14] MEDS: NYSTATIN 100,000 UNIT/ML SUSP 500,000 UNIT/5 ML CUP PO SCH ×4 (07:55→20:05)
[2023-04-14] MEDS: DAPAGLIFLOZIN PROPANEDIOL 10 MG TABLET PO SCH (07:55)
[2023-04-14] MEDS: APIXABAN 5 MG TAB PO SCH ×2 (07:55→20:05)
[2023-04-14] MEDS: predniSONE 10 MG TAB PO SCH (07:55)
[2023-04-14] MEDS: LEVOTHYROXINE 112 MCG TAB PO SCH (07:56)
[2023-04-14] MEDS: allopurinoL 300 MG TAB PO SCH (07:56)
[2023-04-14] MEDS: MAGNESIUM OXIDE 400 MG TAB PO SCH ×2 (07:56→20:04)
[2023-04-14] MEDS: LEVOTHYROXINE 125 MCG TAB PO SCH (07:56)
[2023-04-14] MEDS: IPRATROPIUM-ALBUTEROL 3 ML NEB INHALATION SCH ×4 (09:04→20:27)
[2023-04-14] MEDS: SYMBICORT 160-4.5 MCG INHALER INHALATION SCH ×2 (09:04→20:27)
--- NOTE | 2023-04-14 11:10 | P.PN ---
Subjective Progress Note Date: 04/14/23 Patrick Banuelos, is a 77-year-old male who presented to [facility] emergency room with a chief complaint of worsening shortness of breath, patient was recently admitted to the hospital, with similar complaint, at that time he was diagnosed with acute exacerbation of COPD and acute exacerbation of congestive heart failure, he was treated with IV Lasix IV steroids and inhaled bronchodilators, he was seen by pulmonary and cardiology during that admission, he improved and was discharged home, however patient's symptoms recurred and were worsening, he was only able to walk a few steps without having severe shortness of breath and he decided to come back to emergency room. He was evaluated in the emergency room vital examination on presentation revealed a temperature of 98.1 pulse 91 respiration 22 blood pressure 121/83 pulse ox 92% on room air Laboratory data revealed a white blood count of 15.2 hemoglobin 14.8 platelet count 119 sodium 131 BUN 55 creatinine 1.18 glucose level 394 lactic acid was elevated at 2.6 BNP 3400 Testing in the emergency room revealed chest x-ray done in the emergency room revealed cardiomegaly with mild pulmonary vascular congestion Patient was admitted to medical floor for further evaluation and treatment On review of systems patient is complaining of cough and shortness of breath otherwise he denies any complaints there is no fever or chills no headache or dizziness no chest pain no palpitation no nausea or vomiting no abdominal pain no diarrhea no blood in the stools no burning with urination no frequency or urgency and no hematuria. On 04/08/2023 patient is alert and oriented times. Patient still requiring some shortness of breath currently taking Rocephin and azithromycin. Patient was maintained on IV Lasix, IV Solu-Medrol and DuoNeb breathing treatments. Cardiology, pulmonary and infectious disease services are following. Vital signs temp 97.4, heart rate 94, respiratory 17, blood pressure 126/82 with a pulse ox 96% on room air. On 04/09/2023 patient was seen and examined on the medical floor he is alert and oriented 3 in no apparent distress he is still complaining of cough and shortness of breath otherwise he denies any complaints there is no fever or chills no headache or dizziness no chest pain no shortness of breath no cough no nausea or vomiting no abdominal pain no blood in the stools no diarrhea no burning with urination no frequency or urgency and no hematuria. Patient is scheduled for bronchoscopy this morning, he remains on IV antibiotic Rocephin and Zithromax, he is receiving IV Solu-Medrol and insulin. On 04/10/2023 alert and oriented 3. Patient reports improvement with shortness of breath and cough. Status post bronchoscopy with positive sputum for Pseudomonas aeruginosa. Antibiotics adjusted to Maxipime. Steroids also switched over to by mouth prednisone. This time patient denies chest pain. Patient denies nausea vomiting or diarrhea. Patient denies any urinary burning or frequency. On 04/11/2023 patient was seen and examined on the medical floor he is alert and oriented 3 in no apparent distress he is still complaining of cough and shortness of breath otherwise he denies any complaints there is no fever or chills no headache or dizziness no chest pain no nausea or vomiting no abdominal pain no diarrhea and no urinary symptoms. Plan per pulmonary is to proceed with repeat bronchoscopy in a.m. tomorrow On 04/12/2023 patient is alert and oriented 3. Plans for pulmonary to proceed with repeat bronchoscopy today. Patient does report improvement. Patient denies chest pain. Patient denies nausea vomiting or diarrhea. Patient denies any urinary burning or frequency. Patient has PICC line in place patient also requesting social work services for possible discharge planning to rehab facility for IV antibiotics. On 04/13/2023 patient was seen and examined on the medical floor he is alert and oriented 3 in no apparent distress he is still complaining of cough and shortness of breath otherwise he denies any complaints there is no fever or chills no headache or dizziness no chest pain no nausea or vomiting no abdominal pain no diarrhea and no urinary symptoms. Continue with IV antibiotics at this time, PICC line is in place and functioning well, plan for transfer to correction on Saturday. On 04/14/2023 patient is alert and oriented 3 currently resting complaint bed. Patient will back in A. fib with RVR yesterday. Patient started on Cardizem drip cardiology services reconsulted. Patient remains on eliquis for anticoagulation. Patient remains on IV Maxipime for antibiotics PICC line in place. Discharge planning in progress ECF Objective - Vital Signs Vital signs: Vital Signs Temp 98.0 F 04/14/23 07:00 Pulse 84 04/14/23 09:18 Resp 16 04/14/23 07:00 BP 105/70 04/14/23 07:00 Pulse Ox 94 L 04/14/23 09:05 FiO2 Intake & Output 04/13/23 04/14/23 04/14/23 18:59 06:59 18:59 Intake Total 236 118 Output Total 700 Balance 236 -700 118 Weight 100.2 kg Intake: Oral 236 118 Output: Urine 700 Other: Voiding Method Urinal # Voids 2 - Exam In general patient is alert and oriented x 3 in no distress HEENT head normocephalic and atraumatic Neck is supple no JVD no goiter no lymphadenopathy no carotid bruit Chest examination coarse crackles bilaterally with wheezing Cardiac exam reveals regular heart sounds S1 and S2 no gallops no murmurs Abdomen is soft nontender no organomegaly with normal bowel sounds Extremity exam reveals no edema no cyanosis or clubbing Neurological examination reveals no gross focal deficits - Labs CBC & Chem 7: 04/14/23 06:29 04/14/23 06:29 Labs: Abnormal Lab Results - Last 24 Hours (Table) 04/13/23 04/13/23 04/13/23 Range/Units 12:45 17:01 21:44 WBC (3.8-10.6) k/uL Plt Count (150-450) k/uL Neutrophils # (1.3-7.7) k/uL Lymphocytes # (1.0-4.8) k/uL Monocytes # (0-1.0) k/uL Sodium (137-145) mmol/L Carbon Dioxide (22-30) mmol/L BUN (9-20) mg/dL Creatinine (0.66-1.25) mg/dL Glucose (74-99) mg/dL POC Glucose (mg/dL) 353 H 191 H 461 H (70-110) mg/dL Calcium (8.4-10.2) mg/dL Total Protein (6.3-8.2) g/dL Albumin (3.5-5.0) g/dL 04/14/23 04/14/23 04/14/23 Range/Units 06:20 06:29 06:29 WBC 19.5 H (3.8-10.6) k/uL Plt Count 95 L (150-450) k/uL Neutrophils # 17.3 H (1.3-7.7) k/uL Lymphocytes # 0.8 L (1.0-4.8) k/uL Monocytes # 1.1 H (0-1.0) k/uL Sodium 133 L (137-145) mmol/L Carbon Dioxide 33 H (22-30) mmol/L BUN 51 H (9-20) mg/dL Creatinine 1.38 H (0.66-1.25) mg/dL Glucose 195 H (74-99) mg/dL POC Glucose (mg/dL) 175 H (70-110) mg/dL Calcium 8.0 L (8.4-10.2) mg/dL Total Protein 5.2 L (6.3-8.2) g/dL Albumin 2.8 L (3.5-5.0) g/dL Microbiology - Last 24 Hours (Table) 04/07/23 03:32 Blood Culture - Final Blood 04/12/23 14:30 Gram Stain - Preliminary Bronchial Washings - Right Assessment and Plan Plan: Acute exacerbation of chronic systolic congestive heart failure Acute exacerbation of chronic obstructive pulmonary disease Positive Pseudomonas aerugninosa sputum Possible sepsis as evidenced by leukocytosis and elevated lactic acid A. fib with rapid ventricular response. Patient started on a Cardizem cardiology service is consulted. Patient maintained on anticoagulation with eliquis Underlying history of moderate aortic stenosis Underlying history of severe pulmonary hypertension Underlying history of coronary artery disease with history of coronary artery bypass graft surgery Underlying history of hypertension Underlying history of hyperlipidemia Underlying history of insulin-dependent diabetes mellitus Underlying history of chronic atrial fibrillation Underlying history of chronic kidney disease stage III At this time patient was seen and examined on the telemetry floor Home medications reviewed and reordered Patient was started on IV antibiotic Rocephin and Zithromax Status post bronchoscopy Repeat bronchoscopy planned for 04/12/[address] Social work services consulted for discharge planning possible rehab placement Consultation for cardiology pulmonary and infectious disease initiated Prognosis is guarded will continue to follow closely
--- NOTE | 2023-04-14 11:12 | P.PN ---
Subjective Progress Note Date: 04/14/23 This is a pleasant 77-year-old male patient with a history of chronic obstructive pulmonary disease, chronic systolic congestive heart failure with ejection fraction 20-25%, moderate aortic stenosis, severe pulmonary hypertension, chronic kidney disease stage III, coronary artery disease with previous coronary artery bypass grafting and stent placements, hypothyroidism, hyperlipidemia, chronic atrial fibrillation anticoagulated with Eliquis, history of gallstone pancreatitis. He has had frequent admissions to the hospital for his multiple comorbidities. He was just discharged again on 04/03/2023 f ollowing his COPD/CHF exacerbation. He came back to the hospital on 04/06/2023 with worsening shortness of breath, cough and congestion. Chest x-ray shows evidence of cardiomegaly with mild pulmonary vascular congestion. EKG reveals atrial fibrillation with varying ventricular response. White count 15.2. Hemoglobin 14.8. Platelets 119. Sodium 131. Potassium 4.4. Bicarb 20. BUN 55. Creatinine 1.18. Glucose 394. Lactic acid 2.2. Troponin negative times one. ProBNP 3400. The patient is seen today 04/08/2023 in follow-up on the regular medical floor. He is currently sitting up in a chair at the bedside. Awake and alert in no acute distress. He is maintaining O2 saturations in the 90s on room air. No IV fluids. White count 16.5. Hemoglobin 14.8. Platelets 119. Sodium 134. Potassium 3.8. Bicarb 28. BUN 55. Creatinine 1.21. Glucose 315. He remains on IV diuretics. Currently in a -2.6 L balance. Remains on DuoNeb inhalations, Symbicort, IV Solu-Medrol. Antibiotics in the form of ceftriaxone and azithromycin. Pro-calcitonin was 0.10. The patient is seen today 04/09/2023 in follow-up on the regular medical floor. He is currently sitting up at the bedside. Awake and alert in no acute distress. Maintaining good O2 saturations in the 90s on room air. He's afebrile. Hemodynamically stable. Blood cultures are pending. Sputum culture pending. White count 15.0. Hemoglobin 14.9. Platelets 133. Sodium 135. Potassium 3.4. Bicarb 32. BUN 66. Creatinine 1.37. He is continued on DuoNeb inhalations, Symbicort, IV Solu-Medrol. Remains on IV diuretics. Currently in a -2.8 L balance. Antibiotics in the form of ceftriaxone. Anticoagulated with E liquis. Plan is for bronchoscopy with BAL today. The patient is seen today 04/10/2023 in follow-up on the regular medical floor. He is currently sitting up in bed. Awake and alert in no acute distress. Having breakfast. States he is breathing easier today compared to yesterday. He did undergo bronchoscopy with BAL of the right middle lobe. Many retained secretions were removed. Bronchial wash cultures are pending. He is continued on DuoNeb inhalations, Symbicort, IV Solu-Medrol. Remains on oral diuretics. Currently in a -1.2 L balance Anticoagulated with Eliquis. Antibiotics in the form of cefepime. Sputum cultures positive for pseudomonas aeruginosa. Count 15.6. Hemoglobin 14.4. Platelets 109. Sodium 133. Potassium 3.3. Bicarb 30. BUN 72. Creatinine 1.58. Glucose 326. The patient is seen today 04/11/2023 in follow-up on the regular medical floor. He is resting comfortably in bed. Awake and alert in no acute distress. He states he feels he is still quite congested and unable to expectorate with this cough. He remains on DuoNeb inhalations, Symbicort, Mucinex, prednisone. Remains on oral diuretics. Remains on antibiotics in form of cefepime. Anticoagulated with Eliquis. White count 19.6. Hemoglobin 14.7. Platelets 118. Sodium 134. Potassium 3.9. Bicarb 30. BUN 63. Creatinine 1.39. Glucose 299. The patient is seen today 04/12/2023 in follow-up on the regular medical floor. He is currently resting comfortably in bed. Awake and alert in no acute distress. He continues with a loose congested cough. Maintaining good O2 saturations in the mid 90s on room air. Afebrile. Hemodynamically stable. Continued on DuoNeb inhalations, Symbicort, prednisone taper. Remains on antibiotics in the form of cefepime. Remains on oral diuretics, currently in a -1.4 L balance. White count 18.6. Hemoglobin 14.4. Platelets 115. Sodium 134. Potassium 4.0. Bicarb 29. BUN 60. Creatinine 1.54. Glucose 267. Plan is for repeat bronchoscopy with BAL today. The patient is seen today 04/13/2023 in follow-up on the regular medical floor. He is sitting up in bed. Awake and alert in no acute distress. Breathing easier today compared to yesterday. He did undergo a repeat bronchoscopy with BAL on 04/12/2023. Previous BAL cultures were positive for pseudomonas. He remains on cefepime. PICC line is in place to the left upper extremity. He remains on DuoNeb inhalations, Symbicort, prednisone taper. Anticoagulated with Eliquis. Remains on oral diuretics. White count 24.6. Hemoglobin 15.0. Platelets 108. Sodium 133. Potassium 4.3. Bicarb 34. BUN 53. Creatinine 1.43. Glucose 249. The patient is seen today 04/14/2023 in follow-up on the regular medical floor. He is currently sitting up at the bedside. Awake and alert in no acute distress. Feeling better today compared to yesterday. No worsening shortness of breath, cough or congestion. Continues to maintain good O2 saturations in the 90s on room air. He's afebrile. Hemodynamically stable. Sputum and bronchial lavage cultures were positive for pseudomonas aeruginosa. White count 19.5. Hemoglobin 14.7. Platelets 95,000. Sodium 133. Potassium 4.5. Bicarb 33. BUN 51. Creatinine 1.38. Glucose 195. He is continued on DuoNeb inhalations, Symbicort, prednisone taper. Antibiotics in the form of cefepime. He was still having issues with A. fib RVR and is currently on Cardizem drip at 5 mg per hour. Anticoagulated with Eliquis. Objective - Vital Signs Vital signs: Vital Signs Temp 98.0 F 04/14/23 07:00 Pulse 84 04/14/23 09:18 Resp 16 04/14/23 07:00 BP 105/70 04/14/23 07:00 Pulse Ox 94 L 04/14/23 09:05 FiO2 Intake & Output 04/13/23 04/14/23 04/14/23 18:59 06:59 18:59 Intake Total 236 118 Output Total 700 Balance 236 -700 118 Weight 100.2 kg Intake: Oral 236 118 Output: Urine 700 Other: Voiding Method Urinal # Voids 2 - Exam GENERAL EXAM: Alert, very pleasant 77-year-old male, resting in bed, on room air, comfortable in no apparent distress. HEAD: Normocephalic. EYES: Normal reaction of pupils, equal size. NOSE: Clear with pink turbinates. THROAT: No erythema or exudates. NECK: No masses, no JVD. CHEST: No chest wall deformity. LUNGS: Equal air entry with bilateral expiratory wheeze, crackles in the posterior bases, diminished. CVS: S1 and S2 normal with no audible murmur, irregular rhythm. ABDOMEN: No hepatosplenomegaly, normal bowel sounds, no guarding or rigidity. SPINE: No scoliosis or deformity SKIN: No rashes CENTRAL NERVOUS SYSTEM: No focal deficits, tone is normal in all 4 extremities. EXTREMITIES: There is 1-2+ peripheral edema. No clubbing, no cyanosis. Peripheral pulses are intact. - Labs CBC & Chem 7: 04/14/23 06:04/14/23 06:29 Labs: Abnormal Lab Results - Last 24 Hours (Table) 04/13/23 04/13/23 04/13/23 Range/Units 12:45 17:01 21:44 WBC (3.8-10.6) k/uL Plt Count (150-450) k/uL Neutrophils # (1.3-7.7) k/uL Lymphocytes # (1.0-4.8) k/uL Monocytes # (0-1.0) k/uL Sodium (137-145) mmol/L Carbon Dioxide (22-30) mmol/L BUN (9-20) mg/dL Creatinine (0.66-1.25) mg/dL Glucose (74-99) mg/dL POC Glucose (mg/dL) 353 H 191 H 461 H (70-110) mg/dL Calcium (8.4-10.2) mg/dL Total Protein (6.3-8.2) g/dL Albumin (3.5-5.0) g/dL 04/14/23 04/14/23 04/14/23 Range/Units 06:20 06:29 06:29 WBC 19.5 H (3.8-10.6) k/uL Plt Count 95 L (150-450) k/uL Neutrophils # 17.3 H (1.3-7.7) k/uL Lymphocytes # 0.8 L (1.0-4.8) k/uL Monocytes # 1.1 H (0-1.0) k/uL Sodium 133 L (137-145) mmol/L Carbon Dioxide 33 H (22-30) mmol/L BUN 51 H (9-20) mg/dL Creatinine 1.38 H (0.66-1.25) mg/dL Glucose 195 H (74-99) mg/dL POC Glucose (mg/dL) 175 H (70-110) mg/dL Calcium 8.0 L (8.4-10.2) mg/dL Total Protein 5.2 L (6.3-8.2) g/dL Albumin 2.8 L (3.5-5.0) g/dL Microbiology - Last 24 Hours (Table) 04/07/23 03:32 Blood Culture - Final Blood 04/12/23 14:30 Gram Stain - Preliminary Bronchial Washings - Right Assessment and Plan Assessment: Acute exacerbation of chronic systolic congestive heart failure with elevated proBNP level and increased vessel markings and the patient is currently on diuretics Acute exacerbation of chronic obstructive pulmonary disease complicated by pseudomonas aeruginosa. Currently on cefepime. Bronchoscopy with BAL performed on 04/09/2023. Not much improvement. Repeat bronchoscopy done 04/12/2023. History of systolic heart failure with ejection fraction of 20-25%, remains on diuretics, remains in a negative balance Moderate degree of aortic stenosis and severe pulmonary hypertension as noted on a previous echocardiogram that was done in December 2022 Chronic stage III kidney disease, creatinine is stable for now Former smoker Coronary artery disease with previous bypass surgery and previous coronary intervention and stenting Hypothyroidism Hyperlipidemia Chronic atrial fibrillation. The patient is currently on long-term anticoagulat ion with Eliquis, currently requiring a Cardizem drip. History of gallstone pancreatitis Poor overall functional performance based on the above-mentioned multiple comorbidities Plan: The patient was seen and evaluated Labs and medications reviewed Continued on cefepime PICC line in place ID is on the case Remains on a Cardizem drip Anticoagulated with Eliquis Remains stable and on room air Continued on bronchodilators, steroids We will continue to follow I have personally seen and examined the patient, performed the documentation and the assessment and plan as written. Number of minutes spent on the visit: 10.
--- NOTE | 2023-04-14 11:26 | P.PN ---
Subjective Progress Note Date: 04/14/23 Principal diagnosis: CAD/ A. FIB The patient is a pleasant 77-year-old gentleman with CAD and status post CABG as well as ischemic cardiomyopathy as well as hypertension and dyslipidemia and permanent atrial fibrillation was admitted to the hospital with acute hypoxic respiratory failure as well as atrial fibrillation with rapid ventricular response. April 142022 The patient was seen and evaluated this morning. She is on Cardizem IV at this point. He is in atrial fibrillation with uncontrolled heart rate. The pressure is marginal. I'm going to stop the carvedilol and the patient was metoprolol succinate and dry to wean him from the Cardizem IV. Otherwise pulmonary team is on the case regarding COPD and he underwent bronchoscopy before. He is not in any overt congestive heart failure. The examination is remarkable for bilateral expiratory wheezing. No lower extremities edema noted Assessment Permanent in nature fibrillation with uncontrolled heart rate Management of the low blood pressure Ischemic cardiomyopathy CAD and status post CABG Multiple comorbid conditions Plan DC carvedilol and start the patient on metoprolol succinate DC Cardizem IV Follow-up with the patient Objective - Vital Signs Vital signs: Vital Signs Temp 98.0 F 04/14/23 07:00 Pulse 84 04/14/23 09:18 Resp 16 04/14/23 07:00 BP 105/70 04/14/23 07:00 Pulse Ox 94 L 04/14/23 09:05 FiO2 Intake & Output 04/13/23 04/14/23 04/14/23 18:59 06:59 18:59 Intake Total 236 118 Output Total 700 Balance 236 -700 118 Weight 100.2 kg Intake: Oral 236 118 Output: Urine 700 Other: Voiding Method Urinal # Voids 2 - Labs CBC & Chem 7: 04/14/23 06:29 04/14/23 06:29 Labs: Abnormal Lab Results - Last 24 Hours (Table) 04/13/23 04/13/23 04/13/23 Range/Units 12:45 17:01 21:44 WBC (3.8-10.6) k/uL Plt Count (150-450) k/uL Neutrophils # (1.3-7.7) k/uL Lymphocytes # (1.0-4.8) k/uL Monocytes # (0-1.0) k/uL Sodium (137-145) mmol/L Carbon Dioxide (22-30) mmol/L BUN (9-20) mg/dL Creatinine (0.66-1.25) mg/dL Glucose (74-99) mg/dL POC Glucose (mg/dL) 353 H 191 H 461 H (70-110) mg/dL Calcium (8.4-10.2) mg/dL Total Protein (6.3-8.2) g/dL Albumin (3.5-5.0) g/dL 04/14/23 04/14/23 04/14/23 Range/Units 06:20 06:29 06:29 WBC 19.5 H (3.8-10.6) k/uL Plt Count 95 L (150-450) k/uL Neutrophils # 17.3 H (1.3-7.7) k/uL Lymphocytes # 0.8 L (1.0-4.8) k/uL Monocytes # 1.1 H (0-1.0) k/uL Sodium 133 L (137-145) mmol/L Carbon Dioxide 33 H (22-30) mmol/L BUN 51 H (9-20) mg/dL Creatinine 1.38 H (0.66-1.25) mg/dL Glucose 195 H (74-99) mg/dL POC Glucose (mg/dL) 175 H (70-110) mg/dL Calcium 8.0 L (8.4-10.2) mg/dL Total Protein 5.2 L (6.3-8.2) g/dL Albumin 2.8 L (3.5-5.0) g/dL Microbiology - Last 24 Hours (Table) 04/07/23 03:32 Blood Culture - Final Blood 04/12/23 14:30 Gram Stain - Preliminary Bronchial Washings - Right
[2023-04-14 12:10] LABS: Glucose,Whole Blood 253 mg/dL (70-110)
[2023-04-14] MEDS: LACTATED RINGERS 1,000 ML IV SCH (13:39)
[2023-04-14] MEDS: METOPROLOL SUCCINATE (ER) 50 MG TAB.ER.24H PO SCH (13:40)
[2023-04-14] MEDS: GABAPENTIN 400 MG CAP PO SCH ×3 (13:40→21:31)
[2023-04-14 17:23] LABS: Glucose,Whole Blood 495 mg/dL (70-110)
[2023-04-14] MEDS ORDERED: INSULIN ASPART (NovoLOG) 100 UNIT/ML VIAL SQ ONE (17:32)
[2023-04-14] MEDS: ATORVASTATIN 40 MG TAB PO SCH (20:04)
[2023-04-14 21:13] LABS: Glucose,Whole Blood 572 mg/dL (70-110)
[2023-04-14 21:13] LABS: Glucose,Whole Blood 556 mg/dL (70-110)
--- NOTE | 2023-04-14 23:06 | P.PN ---
Subjective Progress Note Date: 04/13/23 Principal diagnosis: Leukocytosis possible pneumonia Patient is a 77-year-old male with a past medical history significant for COPD congestive heart failure with moderate aortic stenosis pulmonary hypertension chronic kidney disease hypertension hyperlipidemia recently admitted to hospital and treated for COPD/CHF exacerbation presenting back to the hospital with increasing shortness of breath and also have a cough. On today's evaluation that is 04/13/2023, the patient remains to be afebrile, the patient is breathing comfortably on room air, the patient continued to have a cough with occasional sputum production denies any hemoptysis, the patient denies any chest pain no nausea vomiting no abdominal pain or diarrhea Objective - Vital Signs Vital signs: Vital Signs Temp 98.2 F 04/13/23 07:00 Pulse 78 04/13/23 07:40 Resp 16 04/13/23 07:00 BP 104/66 04/13/23 07:00 Pulse Ox 94 L 04/13/23 07:25 FiO2 Intake & Output 04/12/23 04/13/23 04/13/23 18:59 06:59 18:59 Intake Total 340 118 Output Total 1150 900 Balance -810 -900 118 Weight 101 kg Intake: IV 100 Oral 240 118 Output: Urine 1150 900 Other: Voiding Method Urinal # Voids 1 1 # Bowel Movements 1 - Exam GENERAL DESCRIPTION: Elderly male lying in bed in no distress RESPIRATORY SYSTEM: Unlabored breathing , coarse breath sounds bilaterally HEART: S1 S2 regular rate and rhythm ABDOMEN: Soft , no tenderness EXTREMITIES: No edema feet - Labs CBC & Chem 7: 04/14/23 06:29 04/14/23 06:29 Labs: Abnormal Lab Results - Last 24 Hours (Table) 04/12/23 04/12/23 04/12/23 Range/Units 16:51 20:51 20:52 WBC (3.8-10.6) k/uL Plt Count (150-450) k/uL Neutrophils # (1.3-7.7) k/uL Monocytes # (0-1.0) k/uL Sodium (137-145) mmol/L Chloride (98-107) mmol/L Carbon Dioxide (22-30) mmol/L BUN (9-20) mg/dL Creatinine (0.66-1.25) mg/dL Glucose (74-99) mg/dL POC Glucose (mg/dL) 118 H 519 H 492 H (70-110) mg/dL Calcium (8.4-10.2) mg/dL ALT (4-49) U/L Total Protein (6.3-8.2) g/dL Albumin (3.5-5.0) g/dL 04/13/23 04/13/23 04/13/23 Range/Units 06:02 06:17 06:17 WBC 24.6 H (3.8-10.6) k/uL Plt Count 108 L (150-450) k/uL Neutrophils # 22.0 H (1.3-7.7) k/uL Monocytes # 1.3 H (0-1.0) k/uL Sodium 133 L (137-145) mmol/L Chloride 95 L (98-107) mmol/L Carbon Dioxide 34 H (22-30) mmol/L BUN 53 H (9-20) mg/dL Creatinine 1.43 H (0.66-1.25) mg/dL Glucose 249 H (74-99) mg/dL POC Glucose (mg/dL) 248 H (70-110) mg/dL Calcium 8.0 L (8.4-10.2) mg/dL ALT 58 H (4-49) U/L Total Protein 5.0 L (6.3-8.2) g/dL Albumin 2.8 L (3.5-5.0) g/dL Microbiology - Last 24 Hours (Table) 04/12/23 14:30 Gram Stain - Preliminary Bronchial Washings - Right 04/09/23 12:30 Gram Stain - Final Bronchoalviolar Lavage - Right Bronchial Washings Culture - Final Pseudomonas aeruginosa 04/06/23 23:49 Blood Culture - Final Blood Assessment and Plan (1) Acute exacerbation of chronic obstructive pulmonary disease Current Visit: No Status: Acute Code(s): J44.1 - CHRONIC OBSTRUCTIVE PULMONARY DISEASE W (ACUTE) EXACERBATION SNOMED Code(s): 434820112 (2) Leukocytosis Current Visit: No Status: Acute Code(s): D72.829 - ELEVATED WHITE BLOOD CELL COUNT, UNSPECIFIED SNOMED Code(s): 772167860 Plan: 1patient presented hospital with increasing shortness of breath and cough which is likely multifactorial likely related to underlying COPD exacerbation and tracheobronchitis pneumonia less likely but not entirely excluded 2- sputum for Gram stain and culture did grow pseudomonas aeruginosa 3-patient is status post bronchoscopy with evidence of retained secretions and severe tracheobronchitis cultures are pseudomonas aeruginosa\ 4-patient did have Levaquin ALLERGY, patient had shown some clinical improvement and will continue IV cefepime and monitor clinical course closely Time with Patient: Less than 30
--- NOTE | 2023-04-14 23:07 | P.PN ---
Subjective Progress Note Date: 04/14/23 Principal diagnosis: Leukocytosis possible pneumonia Patient is a 77-year-old male with a past medical history significant for COPD congestive heart failure with moderate aortic stenosis pulmonary hypertension chronic kidney disease hypertension hyperlipidemia recently admitted to hospital and treated for COPD/CHF exacerbation presenting back to the hospital with increasing shortness of breath and also have a cough. On today's evaluation that is 04/14/2023, the patient continues to be afebrile, the patient is breathing comfortably on room air, the patient continued to have a cough with occasional sputum production denies any worsening cough or sputum production, no chest pain no abdominal pain or diarrhea Objective - Vital Signs Vital signs: Vital Signs Temp 98.0 F 04/14/23 07:00 Pulse 63 04/14/23 13:00 Resp 16 04/14/23 07:00 BP 116/75 04/14/23 13:00 Pulse Ox 94 L 04/14/23 09:05 FiO2 Intake & Output 04/13/23 04/14/23 04/14/23 18:59 06:59 18:59 Intake Total 236 118 Output Total 700 Balance 236 -700 118 Weight 100.2 kg Intake: Oral 236 118 Output: Urine 700 Other: Voiding Method Urinal # Voids 2 - Exam GENERAL DESCRIPTION: Elderly male lying in bed in no distress RESPIRATORY SYSTEM: Unlabored breathing , coarse breath sounds bilaterally HEART: S1 S2 regular rate and rhythm ABDOMEN: Soft , no tenderness EXTREMITIES: No edema feet - Labs CBC & Chem 7: 04/14/23 06:29 04/14/23 06:29 Labs: Abnormal Lab Results - Last 24 Hours (Table) 04/13/23 04/13/23 04/14/23 Range/Units 17:01 21:44 06:20 WBC (3.8-10.6) k/uL Plt Count (150-450) k/uL Neutrophils # (1.3-7.7) k/uL Lymphocytes # (1.0-4.8) k/uL Monocytes # (0-1.0) k/uL Sodium (137-145) mmol/L Carbon Dioxide (22-30) mmol/L BUN (9-20) mg/dL Creatinine (0.66-1.25) mg/dL Glucose (74-99) mg/dL POC Glucose (mg/dL) 191 H 461 H 175 H (70-110) mg/dL Calcium (8.4-10.2) mg/dL Total Protein (6.3-8.2) g/dL Albumin (3.5-5.0) g/dL 04/14/23 04/14/23 04/14/23 Range/Units 06:29 06:29 12:07 WBC 19.5 H (3.8-10.6) k/uL Plt Count 95 L (150-450) k/uL Neutrophils # 17.3 H (1.3-7.7) k/uL Lymphocytes # 0.8 L (1.0-4.8) k/uL Monocytes # 1.1 H (0-1.0) k/uL Sodium 133 L (137-145) mmol/L Carbon Dioxide 33 H (22-30) mmol/L BUN 51 H (9-20) mg/dL Creatinine 1.38 H (0.66-1.25) mg/dL Glucose 195 H (74-99) mg/dL POC Glucose (mg/dL) 253 H (70-110) mg/dL Calcium 8.0 L (8.4-10.2) mg/dL Total Protein 5.2 L (6.3-8.2) g/dL Albumin 2.8 L (3.5-5.0) g/dL Microbiology - Last 24 Hours (Table) 04/12/23 14:30 Gram Stain - Preliminary Bronchial Washings - Right Bronchial Washings Culture - Preliminary Susana albicans 04/07/23 03:32 Blood Culture - Final Blood Assessment and Plan (1) Acute exacerbation of chronic obstructive pulmonary disease Current Visit: No Status: Acute Code(s): J44.1 - CHRONIC OBSTRUCTIVE PULMONARY DISEASE W (ACUTE) EXACERBATION SNOMED Code(s): 798442253 (2) Leukocytosis Current Visit: No Status: Acute Code(s): D72.829 - ELEVATED WHITE BLOOD CELL COUNT, UNSPECIFIED SNOMED Code(s): 802440082 Plan: 1patient presented hospital with increasing shortness of breath and cough which is likely multifactorial likely related to underlying COPD exacerbation and tracheobronchitis pneumonia less likely but not entirely excluded 2- sputum for Gram stain and culture did grow pseudomonas aeruginosa 3-patient is status post bronchoscopy with evidence of retained secretions and severe tracheobronchitis cultures are pseudomonas aeruginosa\ 4-patient did have Levaquin ALLERGY, patient had shown some clinical improvement and will continue IV cefepime to finish a two-week course of therapy and close outpatient follow-up
[2023-04-15] MEDS: CEFEPIME 2 GM in SODIUM CHLORIDE 0.9% 100 ML IVPB SCH ×2 (00:36→12:58)
[2023-04-15 06:01] LABS: Glucose,Whole Blood 105 mg/dL (70-110)
[2023-04-15 06:10] LABS: Basophils % (A) 0 %; Eosinophils # (A) 0.1 k/uL (0-0.7); Eosinophils % (A) 0 %; HCT 49.5 % (39.0-53.0); HGB 15.9 gm/dL (13.0-17.5); Lymphocytes # (A) 1.7 k/uL (1.0-4.8); Lymphocytes % (A) 7 %; MCHC 32.1 g/dL (31.0-37.0); MCV 99.5 fL (80.0-100.0); Macrocytosis Slight; Mean Platelet Volume 8.8; Monocytes # (A) 1.6 k/uL (0-1.0); Monocytes % (A) 7 %; Neutrophils # (A) 19.9 k/uL (1.3-7.7); Neutrophils % (A) 85 %; Platelet Count 116 k/uL (150-450); RBC 4.97 m/uL (4.30-5.90); RDW 14.9 % (11.5-15.5); WBC 23.5 k/uL (3.8-10.6)
[2023-04-15] MEDS: INSULIN ASPART (NovoLOG) 100 UNIT/ML VIAL SQ SCH ×4 (06:11→22:36)
[2023-04-15 06:30] LABS: ALT 42 U/L (4-49); AST 22 U/L (17-59); African American GFR (CKD) 58 (>60 ml/min/1.73 sqM); Albumin 3.1 g/dL (3.5-5.0); Albumin/Globulin Ratio 1.2; Alkaline Phosphatase 73 U/L (38-126); Anion Gap 3 mmol/L; Blood Urea Nitrogen 54 mg/dL (9-20); Calcium 8.4 mg/dL (8.4-10.2); Carbon Dioxide 35 mmol/L (22-30); Chloride 98 mmol/L (98-107); Globulin 2.6 g/dL; Glucose 93 mg/dL (74-99); Non-African American GFR(CKD) 50 (>60 ml/min/1.73 sqM); Sodium 136 mmol/L (137-145); Total Bilirubin 1.3 mg/dL (0.2-1.3); Total Protein 5.7 g/dL (6.3-8.2)
[2023-04-15 06:44] LABS: Potassium 4.6 mmol/L (3.5-5.1)
[2023-04-15] MEDS: INSULIN DETEMIR (LEVEMIR) 100 UNIT/ML SYR SQ SCH (07:43)
[2023-04-15] MEDS: guaiFENesin-DM 600/30MG 1 EACH TAB.ER.12H PO SCH ×2 (08:52→21:33)
[2023-04-15] MEDS: MAGNESIUM OXIDE 400 MG TAB PO SCH ×2 (08:53→21:33)
[2023-04-15] MEDS: DAPAGLIFLOZIN PROPANEDIOL 10 MG TABLET PO SCH (08:53)
[2023-04-15] MEDS: GLIMEPIRIDE 2 MG TAB PO SCH ×2 (08:54→21:33)
[2023-04-15] MEDS: POTASSIUM CHLORIDE ER 20 MEQ TAB.ER PO SCH ×2 (08:54→21:34)
[2023-04-15] MEDS: allopurinoL 300 MG TAB PO SCH (08:54)
[2023-04-15] MEDS: predniSONE 10 MG TAB PO SCH (08:55)
[2023-04-15] MEDS: PANTOPRAZOLE 40 MG TABLET PO SCH (08:56)
[2023-04-15] MEDS: LEVOTHYROXINE 112 MCG TAB PO SCH (08:56)
[2023-04-15] MEDS: NYSTATIN 100,000 UNIT/ML SUSP 500,000 UNIT/5 ML CUP PO SCH ×4 (08:56→21:33)
[2023-04-15] MEDS: LEVOTHYROXINE 125 MCG TAB PO SCH (08:56)
[2023-04-15] MEDS: METOPROLOL SUCCINATE (ER) 50 MG TAB.ER.24H PO SCH (08:56)
[2023-04-15] MEDS: ASPIRIN 81 MG PO SCH (08:56)
[2023-04-15] MEDS: APIXABAN 5 MG TAB PO SCH ×2 (08:56→21:34)
[2023-04-15] MEDS: FUROSEMIDE 40 MG TAB PO SCH ×2 (08:56→17:58)
[2023-04-15] MEDS: SYMBICORT 160-4.5 MCG INHALER INHALATION SCH ×4 (08:57→19:56)
[2023-04-15] MEDS: IPRATROPIUM-ALBUTEROL 3 ML NEB INHALATION SCH ×5 (08:57→19:56)
--- NOTE | 2023-04-15 10:31 | P.PN ---
Subjective Progress Note Date: 04/15/23 HISTORY OF PRESENT ILLNESS: This is a 77-year-old male who follows in the office with Dr. Vazquez. patient has a history of coronary artery disease with previous CABG with LINDSEY to LAD and stenting of the ostium of the circumflex, left main, and RCA, atrial fibrillation, congestive heart failure, hypertension, hyperlipidemia, diabetes, atrial fibrillation, and COPD. patient is admitted to the hospital secondary to congestive heart failure and COPD exacerbation. Patient was in A. fib with RVR yesterday. He was on IV Cardizem which was discontinued and he was transitioned to metoprolol succinate. This morning on telemetry, the patient is in atrial fibrillation with a heart rate in the 90s. he denies chest pain or pressure. He reports shortness of breath. Patient's blood pressures have been soft with a systolic ranging between [id number]. Most recent echocardiogram performed at the beginning of this month revealed ejection fraction 30-35% with mild aortic stenosis. PHYSICAL EXAM: VITAL SIGNS: Reviewed. GENERAL: Well-developed in no acute distress. NECK: Supple. No JVD or thyromegaly LUNGS: Respirations even and unlabored. Lungs diminished with rhonchi and expiratory wheezing noted HEART: Iregular rate and rhythm. S1 and S2 heard. + Systolic murmur EXTREMITIES: Normal range of motion. No clubbing or cyanosis. Peripheral pulses intact. No lower extremity edema ASSESSMENT: Acute on chronic heart failure with reduced EF Acute exacerbation of COPD Leukocytosis Borderline hypotension Coronary artery disease with previous CABG with LINDSEY to LAD and PCI of the ostium of the circumflex, left main, and RCA Ischemic cardiomyopathy Persistent atrial fibrillation, currently rate controlled Mild to moderate aortic stenosis Hypertension Hyperlipidemia Diabetes PLAN: Continue current cardiac medications Continue telemetry monitoring. Patient currently in atrial fibrillation with controlled ventricular rates. Continue to monitor blood pressure Recommend outpatient follow up with Dr. Vazquez regarding possible AICD implantation and AV jimmie ablation. Further recommendations pending patient course Nurse practitioner note has been reviewed by physician. Signing provider agrees with the documented findings, assessment, and plan of care. Objective - Vital Signs Vital signs: Vital Signs Temp 98.1 F 04/15/23 07:50 Pulse 63 04/15/23 08:57 Resp 18 04/15/23 07:50 BP 105/67 04/15/23 07:50 Pulse Ox 96 04/15/23 08:58 FiO2 Intake & Output 06/18/23 06/19/23 06/19/23 18:59 06:59 18:59 Intake Total 236 118 Output Total 600 2325 Balance -364 -2325 118 Weight 99.4 kg Intake: Oral 236 118 Output: Urine 600 2325 Other: Voiding Method Urinal # Voids 1 - Labs CBC & Chem 7: 04/15/23 05:51 04/15/23 05:51 Labs: Abnormal Lab Results - Last 24 Hours (Table) 04/14/23 04/14/23 04/14/23 Range/Units 12:07 17:20 21:10 WBC (3.8-10.6) k/uL Plt Count (150-450) k/uL Neutrophils # (1.3-7.7) k/uL Monocytes # (0-1.0) k/uL Sodium (137-145) mmol/L Carbon Dioxide (22-30) mmol/L BUN (9-20) mg/dL Creatinine (0.66-1.25) mg/dL POC Glucose (mg/dL) 253 H 495 H 556 H (70-110) mg/dL Total Protein (6.3-8.2) g/dL Albumin (3.5-5.0) g/dL 04/14/23 04/15/23 04/15/23 Range/Units 21:12 05:51 05:51 WBC 23.5 H (3.8-10.6) k/uL Plt Count 116 L (150-450) k/uL Neutrophils # 19.9 H (1.3-7.7) k/uL Monocytes # 1.6 H (0-1.0) k/uL Sodium 136 L (137-145) mmol/L Carbon Dioxide 35 H (22-30) mmol/L BUN 54 H (9-20) mg/dL Creatinine 1.35 H (0.66-1.25) mg/dL POC Glucose (mg/dL) 572 H (70-110) mg/dL Total Protein 5.7 L (6.3-8.2) g/dL Albumin 3.1 L (3.5-5.0) g/dL Microbiology - Last 24 Hours (Table) 04/12/23 14:30 Gram Stain - Preliminary Bronchial Washings - Right Bronchial Washings Culture - Preliminary Susana albicans
[2023-04-15 12:18] LABS: Glucose,Whole Blood 297 mg/dL (70-110)
[2023-04-15] MEDS: LACTATED RINGERS 1,000 ML IV SCH (12:34)
[2023-04-15] MEDS: GABAPENTIN 400 MG CAP PO SCH ×3 (14:08→21:34)
--- NOTE | 2023-04-15 14:16 | P.PN ---
Subjective Progress Note Date: 04/15/23 This is a pleasant 77-year-old male patient with a history of chronic obstructive pulmonary disease, chronic systolic congestive heart failure with ejection fraction 20-25%, moderate aortic stenosis, severe pulmonary hypertension, chronic kidney disease stage III, coronary artery disease with previous coronary artery bypass grafting and stent placements, hypothyroidism, hyperlipidemia, chronic atrial fibrillation anticoagulated with Eliquis, history of gallstone pancreatitis. He has had frequent admissions to the hospital for his multiple comorbidities. He was just discharged again on 04/03/2023 following his COPD/CHF exacerbation. He came back to the hospital on 04/06/2023 with worsening shortness of breath, cough and congestion. Chest x-ray shows evidence of cardiomegaly with mild pulmonary vascular congestion. EKG reveals atrial fibrillation with varying ventricular response. White count 15.2. Hemoglobin 14.8. Platelets 119. Sodium 131. Potassium 4.4. Bicarb 20. BUN 55. Creatinine 1.18. Glucose 394. Lactic acid 2.2. Troponin negative times one. ProBNP 3400. The patient is seen today 04/08/2023 in follow-up on the regular medical floor. He is currently sitting up in a chair at the bedside. Awake and alert in no acute distress. He is maintaining O2 saturations in the 90s on room air. No IV fluids. White count 16.5. Hemoglobin 14.8. Platelets 119. Sodium 134. Potassium 3.8. Bicarb 28. BUN 55. Creatinine 1.21. Glucose 315. He remains on IV diuretics. Currently in a -2.6 L balance. Remains on DuoNeb inhalations, Symbicort, IV Solu-Medrol. Antibiotics in the form of ceftriaxone and azithromycin. Pro-calcitonin was 0.10. The patient is seen today 04/09/2023 in follow-up on the regular medical floor. He is currently sitting up at the bedside. Awake and alert in no acute distress. Maintaining good O2 saturations in the 90s on room air. He's afebrile. Hemodynamically stable. Blood cultures are pending. Sputum culture pending. White count 15.0. Hemoglobin 14.9. Platelets 133. Sodium 135. Potassium 3.4. Bicarb 32. BUN 66. Creatinine 1.37. He is continued on DuoNeb inhalations, Symbicort, IV Solu-Medrol. Remains on IV diuretics. Currently in a -2.8 L balance. Antibiotics in the form of ceftriaxone. Anticoagulated with Eliquis. Plan is for bronchoscopy with BAL today. The patient is seen today 04/10/2023 in follow-up on the regular medical floor. He is currently sitting up in bed. Awake and alert in no acute distress. Having breakfast. States he is breathing easier today compared to yesterday. He did undergo bronchoscopy with BAL of the right middle lobe. Many retained secretions were removed. Bronchial wash cultures are pending. He is continued on DuoNeb inhalations, Symbicort, IV Solu-Medrol. Remains on oral diuretics. Currently in a -1.2 L balance Anticoagulated with Eliquis. Antibiotics in the form of cefepime. Sputum cultures positive for pseudomonas aeruginosa. Count 15.6. Hemoglobin 14.4. Platelets 109. Sodium 133. Potassium 3.3. Bicarb 30. BUN 72. Creatinine 1.58. Glucose 326. The patient is seen today 04/11/2023 in follow-up on the regular medical floor. He is resting comfortably in bed. Awake and alert in no acute distress. He states he feels he is still quite congested and unable to expectorate with this cough. He remains on DuoNeb inhalations, Symbicort, Mucinex, prednisone. Remains on oral diuretics. Remains on antibiotics in form of cefepime. Anticoagulated with Eliquis. White count 19.6. Hemoglobin 14.7. Platelets 118. Sodium 134. Potassium 3.9. Bicarb 30. BUN 63. Creatinine 1.39. Glucose 299. The patient is seen today 04/12/2023 in follow-up on the regular medical floor. He is currently resting comfortably in bed. Awake and alert in no acute distress. He continues with a loose congested cough. Maintaining good O2 saturations in the mid 90s on room air. Afebrile. Hemodynamically stable. Continued on DuoNeb inhalations, Symbicort, prednisone taper. Remains on antibiotics in the form of cefepime. Remains on oral diuretics, currently in a -1.4 L balance. White count 18.6. Hemoglobin 14.4. Platelets 115. Sodium 134. Potassium 4.0. Bicarb 29. BUN 60. Creatinine 1.54. Glucose 267. Plan is for repeat bronchoscopy with BAL today. The patient is seen today 04/13/2023 in follow-up on the regular medical floor. He is sitting up in bed. Awake and alert in no acute distress. Breathing easier today compared to yesterday. He did undergo a repeat bronchoscopy with BAL on 04/12/2023. Previous BAL cultures were positive for pseudomonas. He remains on cefepime. PICC line is in place to the left upper extremity. He remains on DuoNeb inhalations, Symbicort, prednisone taper. Anticoagulated with Eliquis. Remains on oral diuretics. White count 24.6. Hemoglobin 15.0. Platelets 108. Sodium 133. Potassium 4.3. Bicarb 34. BUN 53. Creatinine 1.43. Glucose 249. The patient is seen today 04/14/2023 in follow-up on the regular medical floor. He is currently sitting up at the bedside. Awake and alert in no acute distress. Feeling better today compared to yesterday. No worsening shortness of breath, cough or congestion. Continues to maintain good O2 saturations in the 90s on room air. He's afebrile. Hemodynamically stable. Sputum and bronchial lavage cultures were positive for pseudomonas aeruginosa. White count 19.5. Hemoglobin 14.7. Platelets 95,000. Sodium 133. Potassium 4.5. Bicarb 33. BUN 51. Creatinine 1.38. Glucose 195. He is continued on DuoNeb inhalations, Symbicort, prednisone taper. Antibiotics in the form of cefepime. He was still having issues with A. fib RVR and is currently on Cardizem drip at 5 mg per hour. Anticoagulated with Eliquis. On 04/15/2023, the patient is on room air oxygen. The patient remains on IV cefepime. No new complaints for now. Still having some increased shortness of breath overnight. Otherwise, during the day, the patient is doing well. His being treated for pseudomonas aeruginosa in his lungs, the patient's echoes at 23 with a hemoglobin of 15.9 and the patient's platelet count is at 116. Urine is a 54 with a creatinine of 1.35 and a sodium level is at 136. He has undergone 2 bronchoscopies during this current admission on 04/09/2023 and 04/12/2023. He remains on Symbicort, DuoNeb about treatments [id number], and he is also on a prednisone burst taper current doses around 30 mg by mouth daily. He has chronic atrial fibrillation is currently on metoprolol and is also receiving anticoagulation with Eliquis 5 mg 2 twice a day and Lasix 40 mg by mouth twice a day. Objective - Vital Signs Vital signs: Vital Signs Temp 98.1 F 04/15/23 07:50 Pulse 64 04/15/23 11:46 Resp 18 04/15/23 07:50 BP 105/67 04/15/23 07:50 Pulse Ox 96 04/15/23 08:58 FiO2 Intake & Output 04/14/23 04/15/23 04/15/23 18:59 06:59 18:59 Intake Total 236 118 Output Total 600 2325 Balance -364 -5 118 Weight 99.4 kg Intake: Oral 236 118 Output: Urine 600 2325 Other: Voiding Method Urinal # Voids 1 - Exam GENERAL EXAM: Alert, very pleasant 77-year-old male, resting in bed, on room air, comfortable in no apparent distress. HEAD: Normocephalic. EYES: Normal reaction of pupils, equal size. NOSE: Clear with pink turbinates. THROAT: No erythema or exudates. NECK: No masses, no JVD. CHEST: No chest wall deformity. LUNGS: Equal air entry with bilateral expiratory wheeze, crackles in the posterior bases, diminished. CVS: S1 and S2 normal with no audible murmur, irregular rhythm. ABDOMEN: No hepatosplenomegaly, normal bowel sounds, no guarding or rigidity. SPINE: No scoliosis or deformity SKIN: No rashes CENTRAL NERVOUS SYSTEM: No focal deficits, tone is normal in all 4 extremities. EXTREMITIES: There is 1-2+ peripheral edema. No clubbing, no cyanosis. Peripheral pulses are intact. - Labs CBC & Chem 7: 04/15/23 05:51 04/15/23 05:51 Labs: Abnormal Lab Results - Last 24 Hours (Table) 04/14/23 04/14/23 04/14/23 Range/Units 17:20 21:10 21:12 WBC (3.8-10.6) k/uL Plt Count (150-450) k/uL Neutrophils # (1.3-7.7) k/uL Monocytes # (0-1.0) k/uL Sodium (137-145) mmol/L Carbon Dioxide (22-30) mmol/L BUN (9-20) mg/dL Creatinine (0.66-1.25) mg/dL POC Glucose (mg/dL) 495 H 556 H 572 H (70-110) mg/dL Total Protein (6.3-8.2) g/dL Albumin (3.5-5.0) g/dL 04/15/23 04/15/23 04/15/23 Range/Units 05:51 05:51 12:16 WBC 23.5 H (3.8-10.6) k/uL Plt Count 116 L (150-450) k/uL Neutrophils # 19.9 H (1.3-7.7) k/uL Monocytes # 1.6 H (0-1.0) k/uL Sodium 136 L (137-145) mmol/L Carbon Dioxide 35 H (22-30) mmol/L BUN 54 H (9-20) mg/dL Creatinine 1.35 H (0.66-1.25) mg/dL POC Glucose (mg/dL) 297 H (70-110) mg/dL Total Protein 5.7 L (6.3-8.2) g/dL Albumin 3.1 L (3.5-5.0) g/dL Microbiology - Last 24 Hours (Table) 04/12/23 14:30 Gram Stain - Final Bronchial Washings - Right Bronchial Washings Culture - Final Susana albicans Assessment and Plan Plan: Acute exacerbation of chronic systolic congestive heart failure with elevated proBNP level and increased vessel markings and the patient is currently on diuretics Acute exacerbation of chronic obstructive pulmonary disease complicated by p seudomonas aeruginosa. Currently on cefepime. Bronchoscopy with BAL performed on 04/09/2023. Not much improvement. Repeat bronchoscopy done 04/12/2023. History of systolic heart failure with ejection fraction of 20-25%, remains on diuretics, remains in a negative balance Moderate degree of aortic stenosis and severe pulmonary hypertension as noted on a previous echocardiogram that was done in December 2022 Chronic stage III kidney disease, creatinine is stable for now Former smoker Coronary artery disease with previous bypass surgery and previous coronary intervention and stenting Hypothyroidism Hyperlipidemia Chronic atrial fibrillation. The patient is currently on long-term antic oagulation with Eliquis, currently requiring a Cardizem drip. History of gallstone pancreatitis Poor overall functional performance based on the above-mentioned multiple comorbidities Plan: Clinically stable Chest x-ray findings are stable Continued on cefepime PICC line in place Cardizem drip has been discontinued and the patient is currently on metoprolol Anticoagulated with Eliquis Remains stable and on room air Continued on bronchodilators, steroids, the patient is currently on a prednisone burst taper We will continue to follow
[2023-04-15 17:14] LABS: Glucose,Whole Blood 320 mg/dL (70-110)
--- NOTE | 2023-04-15 18:45 | P.PN ---
Subjective Progress Note Date: 04/15/23 Patrick Banuelos, is a 77-year-old male who presented to [facility] emergency room with a chief complaint of worsening shortness of breath, patient was recently admitted to the hospital, with similar complaint, at that time he was diagnosed with acute exacerbation of COPD and acute exacerbation of congestive heart failure, he was treated with IV Lasix IV steroids and inhaled bronchodilators, he was seen by pulmonary and cardiology during that admission, he improved and was discharged home, however patient's symptoms recurred and were worsening, he was only able to walk a few steps without having severe shortness of breath and he decided to come back to emergency room. He was evaluated in the emergency room vital examination on presentation revealed a temperature of 98.1 pulse 91 respiration 22 blood pressure 121/83 pulse ox 92% on room air Laboratory data revealed a white blood count of 15.2 hemoglobin 14.8 platelet count 119 sodium 131 BUN 55 creatinine 1.18 glucose level 394 lactic acid was elevated at 2.6 BNP 3400 Testing in the emergency room revealed chest x-ray done in the emergency room revealed cardiomegaly with mild pulmonary vascular congestion Patient was admitted to medical floor for further evaluation and treatment On review of systems patient is complaining of cough and shortness of breath otherwise he denies any complaints there is no fever or chills no headache or dizziness no chest pain no palpitation no nausea or vomiting no abdominal pain no diarrhea no blood in the stools no burning with urination no frequency or urgency and no hematuria. On 04/08/2023 patient is alert and oriented times. Patient still requiring some shortness of breath currently taking Rocephin and azithromycin. Patient was maintained on IV Lasix, IV Solu-Medrol and DuoNeb breathing treatments. Cardiology, pulmonary and infectious disease services are following. Vital signs temp 97.4, heart rate 94, respiratory 17, blood pressure 126/82 with a pulse ox 96% on room air. On 04/09/2023 patient was seen and examined on the medical floor he is alert and oriented 3 in no apparent distress he is still complaining of cough and shortness of breath otherwise he denies any complaints there is no fever or chills no headache or dizziness no chest pain no shortness of breath no cough no nausea or vomiting no abdominal pain no blood in the stools no diarrhea no burning with urination no frequency or urgency and no hematuria. Patient is scheduled for bronchoscopy this morning, he remains on IV antibiotic Rocephin and Zithromax, he is receiving IV Solu-Medrol and insulin. On 04/10/2023 alert and oriented 3. Patient reports improvement with shortness of breath and cough. Status post bronchoscopy with positive sputum for Pseudomonas aeruginosa. Antibiotics adjusted to Maxipime. Steroids also switched over to by mouth prednisone. This time patient denies chest pain. Patient denies nausea vomiting or diarrhea. Patient denies any urinary burning or frequency. On 04/11/2023 patient was seen and examined on the medical floor he is alert and oriented 3 in no apparent distress he is still complaining of cough and shortness of breath otherwise he denies any complaints there is no fever or chills no headache or dizziness no chest pain no nausea or vomiting no abdominal pain no diarrhea and no urinary symptoms. Plan per pulmonary is to proceed with repeat bronchoscopy in a.m. tomorrow On 04/12/2023 patient is alert and oriented 3. Plans for pulmonary to proceed with repeat bronchoscopy today. Patient does report improvement. Patient denies chest pain. Patient denies nausea vomiting or diarrhea. Patient denies any urinary burning or frequency. Patient has PICC line in place patient also requesting social work services for possible discharge planning to rehab facility for IV antibiotics. On 04/13/2023 patient was seen and examined on the medical floor he is alert and oriented 3 in no apparent distress he is still complaining of cough and shortness of breath otherwise he denies any complaints there is no fever or chills no headache or dizziness no chest pain no nausea or vomiting no abdominal pain no diarrhea and no urinary symptoms. Continue with IV antibiotics at this time, PICC line is in place and functioning well, plan [facility]. On 04/14/2023 patient is alert and oriented 3 currently resting complaint bed. Patient will back in A. fib with RVR yesterday. Patient started on Cardizem drip cardiology services reconsulted. Patient remains on eliquis for anticoagulation. Patient remains on IV Maxipime for antibiotics PICC line in place. Discharge planning in progress [facility] On 04/15/2023 patient was seen and examined on the medical floor he is alert and oriented 3 in no apparent distress he is still complaining of cough and shortness of breath otherwise he denies any complaints there is no fever or chills no headache or dizziness no chest pain no nausea or vomiting no abdominal pain no diarrhea and no urinary symptoms. Continue with IV antibiotics at this time, PICC line is in place and functioning well, plan for transfer to jail tomorrow. Objective - Vital Signs Vital signs: Vital Signs Temp 98.1 F 04/15/23 07:50 Pulse 63 04/15/23 08:57 Resp 18 04/15/23 07:50 BP 105/67 04/15/23 07:50 Pulse Ox 96 04/15/23 08:58 FiO2 Intake & Output 04/14/23 04/15/23 04/15/23 18:59 06:59 18:59 Intake Total 236 118 Output Total 600 2325 Balance -364 -2325 118 Weight 99.4 kg Intake: Oral 236 118 Output: Urine 600 2325 Other: Voiding Method Urinal # Voids 1 - Exam In general patient is alert and oriented x 3 in no distress HEENT head normocephalic and atraumatic Neck is supple no JVD no goiter no lymphadenopathy no carotid bruit Chest examination coarse crackles bilaterally with wheezing Cardiac exam reveals regular heart sounds S1 and S2 no gallops no murmurs Abdomen is soft nontender no organomegaly with normal bowel sounds Extremity exam reveals no edema no cyanosis or clubbing Neurological examination reveals no gross focal deficits - Labs CBC & Chem 7: 04/15/23 05:51 04/15/23 05:51 Labs: Abnormal Lab Results - Last 24 Hours (Table) 04/14/23 04/14/23 04/14/23 Range/Units 12:07 17:20 21:10 WBC (3.8-10.6) k/uL Plt Count (150-450) k/uL Neutrophils # (1.3-7.7) k/uL Monocytes # (0-1.0) k/uL Sodium (137-145) mmol/L Carbon Dioxide (22-30) mmol/L BUN (9-20) mg/dL Creatinine (0.66-1.25) mg/dL POC Glucose (mg/dL) 253 H 495 H 556 H (70-110) mg/dL Total Protein (6.3-8.2) g/dL Albumin (3.5-5.0) g/dL 04/14/23 04/15/2323 Range/Units 21:12 05:51 05:51 WBC 23.5 H (3.8-10.6) k/uL Plt Count 116 L (150-450) k/uL Neutrophils # 19.9 H (1.3-7.7) k/uL Monocytes # 1.6 H (0-1.0) k/uL Sodium 136 L (137-145) mmol/L Carbon Dioxide 35 H (22-30) mmol/L BUN 54 H (9-20) mg/dL Creatinine 1.35 H (0.66-1.25) mg/dL POC Glucose (mg/dL) 572 H (70-110) mg/dL Total Protein 5.7 L (6.3-8.2) g/dL Albumin 3.1 L (3.5-5.0) g/dL Microbiology - Last 24 Hours (Table) 04/12/23 14:30 Gram Stain - Preliminary Bronchial Washings - Right Bronchial Washings Culture - Preliminary Susana albicans Assessment and Plan Plan: Acute exacerbation of chronic systolic congestive heart failure Acute exacerbation of chronic obstructive pulmonary disease Positive Pseudomonas aerugninosa sputum Possible sepsis as evidenced by leukocytosis and elevated lactic acid A. fib with rapid ventricular response. Patient started on a Cardizem cardiology service is consulted. Patient maintained on anticoagulation with eliquis Underlying history of moderate aortic stenosis Underlying history of severe pulmonary hypertension Underlying history of coronary artery disease with history of coronary artery bypass graft surgery Underlying history of hypertension Underlying history of hyperlipidemia Underlying history of insulin-dependent diabetes mellitus Underlying history of chronic atrial fibrillation Underlying history of chronic kidney disease stage III At this time patient was seen and examined on the telemetry floor Home medications reviewed and reordered Patient was started on IV antibiotic Rocephin and Zithromax Status post bronchoscopy Repeat bronchoscopy planned for 04/12/[address] Social work services consulted for discharge planning possible rehab placement Consultation for cardiology pulmonary and infectious disease initiated Prognosis is guarded will continue to follow closely
[2023-04-15] MEDS: ATORVASTATIN 40 MG TAB PO SCH (21:34)
[2023-04-15 22:31] LABS: Glucose,Whole Blood 436 mg/dL (70-110)
[2023-04-16] MEDS: CEFEPIME 2 GM in SODIUM CHLORIDE 0.9% 100 ML IVPB SCH ×2 (00:39→12:54)
[2023-04-16 06:25] LABS: Glucose,Whole Blood 216 mg/dL (70-110)
[2023-04-16] MEDS: INSULIN ASPART (NovoLOG) 100 UNIT/ML VIAL SQ SCH ×2 (06:38→12:55)
[2023-04-16] MEDS ORDERED: INSULIN DETEMIR (LEVEMIR) 100 UNIT/ML SYR SQ SCH (07:00)
[2023-04-16] MEDS: SYMBICORT 160-4.5 MCG INHALER INHALATION SCH (08:15)
[2023-04-16] MEDS: IPRATROPIUM-ALBUTEROL 3 ML NEB INHALATION SCH ×2 (08:15→12:03)
[2023-04-16 08:34] VITALS: BP 119/82; RESP 17; TEMP 97.8
--- NOTE | 2023-04-16 08:44 | P.PN ---
Subjective Progress Note Date: 04/16/23 HISTORY OF PRESENT ILLNESS: This is a 77-year-old male who follows in the office with Dr. Vazquez. patient has a history of coronary artery disease with previous CABG with LINDSEY to LAD and stenting of the ostium of the circumflex, left main, and RCA, atrial fibrillation, congestive heart failure, hypertension, hyperlipidemia, diabetes, atrial fibrillation, and COPD. patient is admitted to the hospital secondary to congestive heart failure and COPD exacerbation. Patient was in A. fib with RVR yesterday. He was on IV Cardizem which was discontinued and he was transitioned to metoprolol succinate. This morning on telemetry, the patient is in atrial fibrillation with a heart rate in the 90s. he denies chest pain or pressure. He reports shortness of breath. Patient's blood pressures have been soft with [place] systolic [place] [address]. Most recent echocardiogram performed at the beginning of this month revealed ejection fraction 30-35% with mild aortic stenosis. 04/16/2023 Patient examined this morning to bedside. Patient's is present. Patient denies chest pain or pressure. He currently denies shortness of breath. He states his breathing feels much better compared to yesterday. He continues to have a productive cough. Telemetry reveals atrial fibrillation with a heart rate in the 80s. Blood pressure is stable. He states he is being discharged today to subacute rehab. PHYSICAL EXAM: VITAL SIGNS: Reviewed. GENERAL: Well-developed in no acute distress. NECK: Supple. No JVD or thyromegaly LUNGS: Respirations even and unlabored. Lungs diminished with rhonchi and expiratory wheezing noted HEART: Iregular rate and rhythm. S1 and S2 heard. + Systolic murmur EXTREMITIES: Normal range of motion. No clubbing or cyanosis. Peripheral pulses intact. No lower extremity edema ASSESSMENT: Acute on chronic heart failure with reduced EF Acute exacerbation of COPD Leukocytosis Borderline hypotension Coronary artery disease with previous CABG with LINDSEY to LAD and PCI of the ostium of the circumflex, left main, and RCA Ischemic cardiomyopathy Persistent atrial fibrillation, currently rate controlled Mild to moderate aortic stenosis Hypertension Hyperlipidemia Diabetes PLAN: Continue current cardiac medications Continue telemetry monitoring. Patient currently in atrial fibrillation with controlled ventricular rates. Continue to monitor blood pressure Recommend outpatient follow up with Dr. Vazquez regarding possible AICD implantation and AV jimmie ablation. Patient is stable for discharge to subacute rehab today from a cardiac standpoint Nurse practitioner note has been reviewed by physician. Signing provider agrees with the documented findings, assessment, and plan of care. Objective - Vital Signs Vital signs: Vital Signs Temp 97.8 F 04/16/23 08:00 Pulse 68 04/16/23 08:29 Resp 17 04/16/23 08:00 BP 119/82 04/16/23 08:00 Pulse Ox 96 04/16/23 08:29 FiO2 Intake & Output 04/15/23 04/16/23 04/16/23 18:59 06:59 18:59 Intake Total 118 Output Total 1200 Balance 118 -1200 Weight 98.9 kg Intake: Oral 118 Output: Urine 1200 Other: Voiding Method Urinal # Voids 5 - Labs CBC & Chem 7: 04/15/23 05:51 04/15/23 05:51 Labs: Abnormal Lab Results - Last 24 Hours (Table) 04/12/23 04/15/23 04/15/23 Range/Units 14:30 12:16 17:12 POC Glucose (mg/dL) 297 H 320 H (70-110) mg/dL Viral Test See Below A 04/15/23 04/16/23 Range/Units 22:27 06:24 POC Glucose (mg/dL) 436 H 216 H (70-110) mg/dL Viral Test Microbiology - Last 24 Hours (Table) 04/12/23 14:30 Gram Stain - Final Bronchial Washings - Right Bronchial Washings Culture - Final Susana albicans
[2023-04-16] MEDS: NYSTATIN 100,000 UNIT/ML SUSP 500,000 UNIT/5 ML CUP PO SCH ×2 (09:35→12:56)
[2023-04-16] MEDS: predniSONE 10 MG TAB PO SCH (09:36)
[2023-04-16] MEDS: MAGNESIUM OXIDE 400 MG TAB PO SCH (09:36)
[2023-04-16] MEDS: GLIMEPIRIDE 2 MG TAB PO SCH (09:36)
[2023-04-16] MEDS: ASPIRIN 81 MG PO SCH (09:36)
[2023-04-16] MEDS: POTASSIUM CHLORIDE ER 20 MEQ TAB.ER PO SCH (09:37)
[2023-04-16] MEDS: PANTOPRAZOLE 40 MG TABLET PO SCH (09:37)
[2023-04-16] MEDS: LEVOTHYROXINE 112 MCG TAB PO SCH (09:37)
[2023-04-16] MEDS: APIXABAN 5 MG TAB PO SCH (09:37)
[2023-04-16] MEDS: LEVOTHYROXINE 125 MCG TAB PO SCH (09:37)
[2023-04-16] MEDS: METOPROLOL SUCCINATE (ER) 50 MG TAB.ER.24H PO SCH (09:39)
[2023-04-16] MEDS: allopurinoL 300 MG TAB PO SCH (09:39)
[2023-04-16] MEDS: DAPAGLIFLOZIN PROPANEDIOL 10 MG TABLET PO SCH (09:39)
[2023-04-16] MEDS: FUROSEMIDE 40 MG TAB PO SCH (09:39)
[2023-04-16] MEDS: guaiFENesin-DM 600/30MG 1 EACH TAB.ER.12H PO SCH (09:40)
--- NOTE | 2023-04-16 11:54 | P.PN ---
Subjective Progress Note Date: 04/16/23 This is a pleasant 77-year-old male patient with a history of chronic obstructive pulmonary disease, chronic systolic congestive heart failure with ejection fraction 20-25%, moderate aortic stenosis, severe pulmonary hypertension, chronic kidney disease stage III, coronary artery disease with previous coronary artery bypass grafting and stent placements, hypothyroidism, hyperlipidemia, chronic atrial fibrillation anticoagulated with Eliquis, history of gallstone pancreatitis. He has had frequent admissions to the hospital for his multiple comorbidities. He was just discharged again on 04/03/2023 following his COPD/CHF exacerbation. He came back to the hospital on 04/06/2023 with worsening shortness of breath, cough and congestion. Chest x-ray shows evidence of cardiomegaly with mild pulmonary vascular congestion. EKG reveals atrial fibrillation with varying ventricular response. White count 15.2. Hemoglobin 14.8. Platelets 119. Sodium 131. Potassium 4.4. Bicarb 20. BUN 55. Creatinine 1.18. Glucose 394. Lactic acid 2.2. Troponin negative times one. ProBNP 3400. The patient is seen today 04/08/2023 in follow-up on the regular medical floor. He is currently sitting up in a chair at the bedside. Awake and alert in no acute distress. He is maintaining O2 saturations in the 90s on room air. No IV fluids. White count 16.5. Hemoglobin 14.8. Platelets 119. Sodium 134. Potassium 3.8. Bicarb 28. BUN 55. Creatinine 1.21. Glucose 315. He remains on IV diuretics. Currently in a -2.6 L balance. Remains on DuoNeb inhalations, Symbicort, IV Solu-Medrol. Antibiotics in the form of ceftriaxone and azithromycin. Pro-calcitonin was 0.10. The patient is seen today 04/09/2023 in follow-up on the regular medical floor. He is currently sitting up at the bedside. Awake and alert in no acute distress. Maintaining good O2 saturations in the 90s on room air. He's afebrile. Hemodynamically stable. Blood cultures are pending. Sputum culture pending. White count 15.0. Hemoglobin 14.9. Platelets 133. Sodium 135. Potassium 3.4. Bicarb 32. BUN 66. Creatinine 1.37. He is continued on DuoNeb inhalations, Symbicort, IV Solu-Medrol. Remains on IV diuretics. Currently in a -2.8 L balance. Antibiotics in the form of ceftriaxone. Anticoagulated with Eliquis. Plan is for bronchoscopy with BAL today. The patient is seen today 04/10/2023 in follow-up on the regular medical floor. He is currently sitting up in bed. Awake and alert in no acute distress. Having breakfast. States he is breathing easier today compared to yesterday. He did undergo bronchoscopy with BAL of the right middle lobe. Many retained secretions were removed. Bronchial wash cultures are pending. He is continued on DuoNeb inhalations, Symbicort, IV Solu-Medrol. Remains on oral diuretics. Currently in a -1.2 L balance Anticoagulated with Eliquis. Antibiotics in the form of cefepime. Sputum cultures positive for pseudomonas aeruginosa. Count 15.6. Hemoglobin 14.4. Platelets 109. Sodium 133. Potassium 3.3. Bicarb 30. BUN 72. Creatinine 1.58. Glucose 326. The patient is seen today 04/11/2023 in follow-up on the regular medical floor. He is resting comfortably in bed. Awake and alert in no acute distress. He states he feels he is still quite congested and unable to expectorate with this cough. He remains on DuoNeb inhalations, Symbicort, Mucinex, prednisone. Remains on oral diuretics. Remains on antibiotics in form of cefepime. Anticoagulated with Eliquis. White count 19.6. Hemoglobin 14.7. Platelets 118. Sodium 134. Potassium 3.9. Bicarb 30. BUN 63. Creatinine 1.39. Glucose 299. The patient is seen today 04/12/2023 in follow-up on the regular medical floor. He is currently resting comfortably in bed. Awake and alert in no acute distress. He continues with a loose congested cough. Maintaining good O2 saturations in the mid 90s on room air. Afebrile. Hemodynamically stable. Continued on DuoNeb inhalations, Symbicort, prednisone taper. Remains on antibiotics in the form of cefepime. Remains on oral diuretics, currently in a -1.4 L balance. White count 18.6. Hemoglobin 14.4. Platelets 115. Sodium 134. Potassium 4.0. Bicarb 29. BUN 60. Creatinine 1.54. Glucose 267. Plan is for repeat bronchoscopy with BAL today. The patient is seen today 04/13/2023 in follow-up on the regular medical floor. He is sitting up in bed. Awake and alert in no acute distress. Breathing easier today compared to yesterday. He did undergo a repeat bronchoscopy with BAL on 04/12/2023. Previous BAL cultures were positive for pseudomonas. He remains on cefepime. PICC line is in place to the left upper extremity. He remains on DuoNeb inhalations, Symbicort, prednisone taper. Anticoagulated with Eliquis. Remains on oral diuretics. White count 24.6. Hemoglobin 15.0. Platelets 108. Sodium 133. Potassium 4.3. Bicarb 34. BUN 53. Creatinine 1.43. Glucose 249. The patient is seen today 04/14/2023 in follow-up on the regular medical floor. He is currently sitting up at the bedside. Awake and alert in no acute distress. Feeling better today compared to yesterday. No worsening shortness of breath, cough or congestion. Continues to maintain good O2 saturations in the 90s on room air. He's afebrile. Hemodynamically stable. Sputum and bronchial lavage cultures were positive for pseudomonas aeruginosa. White count 19.5. Hemoglobin 14.7. Platelets 95,000. Sodium 133. Potassium 4.5. Bicarb 33. BUN 51. Creatinine 1.38. Glucose 195. He is continued on DuoNeb inhalations, Symbicort, prednisone taper. Antibiotics in the form of cefepime. He was still having issues with A. fib RVR and is currently on Cardizem drip at 5 mg per hour. Anticoagulated with Eliquis. On 04/15/2023, the patient is on room air oxygen. The patient remains on IV cefepime. No new complaints for now. Still having some increased shortness of breath overnight. Otherwise, during the day, the patient is doing well. His being treated for pseudomonas aeruginosa in his lungs, the patient's echoes at 23 with a hemoglobin of 15.9 and the patient's platelet count is at 116. Urine is a 54 with a creatinine of 1.35 and a sodium level is at 136. He has undergone 2 bronchoscopies during this current admission on 04/09/2023 and 04/12/2023. He remains on Symbicort, DuoNeb about treatments [id number], and he is also on a prednisone burst taper current doses around 30 mg by mouth daily. He has chronic atrial fibrillation is currently on metoprolol and is also receiving anticoagulation with Eliquis 5 mg 2 twice a day and Lasix 40 mg by mouth twice a day. 04/16/2023, the patient is on room air oxygen. Nevertheless, he continues to have a congested cough and episodes of shortness of breath. His breathing is slightly worse at nighttime. He remains on IV cefepime. He grew pseudomonas aeruginosa in his lungs on 2 separate occasions. The patient remains on Symbicort on DuoNeb neb blotchiness on the clock. He is also on Lasix 40 mg twice a day and anticoagulation with Eliquis.Labs from yesterday was noted. The white cell count was up to 23.5 with a hemoglobin of 15.9. Rest of the blood work was essentially within normal limits. Awaiting repeat labs from today. The most recent chest x-ray was done on 04/06/2023 and the findings were essentially clear. Objective - Vital Signs Vital signs: Vital Signs Temp 97.8 F 04/16/23 08:00 Pulse 68 04/16/23 08:29 Resp 17 04/16/23 08:00 BP 119/82 04/16/23 08:00 Pulse Ox 96 04/16/23 08:29 FiO2 Intake & Output 04/15/23 04/16/23 04/16/23 18:59 06:59 18:59 Intake Total 118 830 Output Total 1200 Balance 118 -1200 830 Weight 98.9 kg Intake: Oral 118 830 Output: Urine 1200 Other: Voiding Method Urinal # Voids 5 - Exam GENERAL EXAM: Alert, very pleasant 77-year-old male, resting in bed, on room air, comfortable in no apparent distress. HEAD: Normocephalic. EYES: Normal reaction of pupils, equal size. NOSE: Clear with pink turbinates. THROAT: No erythema or exudates. NECK: No masses, no JVD. CHEST: No chest wall deformity. LUNGS: Equal air entry with bilateral expiratory wheeze, crackles in the posterior bases, diminished. CVS: S1 and S2 normal with no audible murmur, irregular rhythm. ABDOMEN: No hepatosplenomegaly, normal bowel sounds, no guarding or rigidity. SPINE: No scoliosis or deformity SKIN: No rashes CENTRAL NERVOUS SYSTEM: No focal deficits, tone is normal in all 4 extremities. EXTREMITIES: There is 1-2+ peripheral edema. No clubbing, no cyanosis. Peripheral pulses are intact. - Labs CBC & Chem 7: 04/15/23 05:51 04/15/23 05:51 Labs: Abnormal Lab Results - Last 24 Hours (Table) 04/12/23 04/15/23 04/15/23 Range/Units 14:30 12:16 17:12 POC Glucose (mg/dL) 297 H 320 H (70-110) mg/dL Viral Test See Below A 04/15/23 04/16/23 Range/Units 22:27 06:24 POC Glucose (mg/dL) 436 H 216 H (70-110) mg/dL Viral Test Microbiology - Last 24 Hours (Table) 04/12/23 14:30 Gram Stain - Final Bronchial Washings - Right Bronchial Washings Culture - Final Susana albicans Assessment and Plan Plan: Acute exacerbation of chronic systolic congestive heart failure with elevated proBNP level and increased vessel markings and the patient is currently on diuretics Acute exacerbation of chronic obstructive pulmonary disease complicated by pseudomonas aeruginosa. Currently on cefepime. Bronchoscopy with BAL performed on 04/09/2023. Not much improvement. Repeat bronchoscopy done 04/12/2023. History of systolic heart failure with ejection fraction of 20-25%, remains on diuretics, remains in a negative balance Moderate degree of aortic stenosis and severe pulmonary hypertension as noted on a previous echocardiogram that was done in December 2022 Chronic stage III kidney disease, creatinine is stable for now Former smoker Coronary artery disease with previous bypass surgery and previous coronary intervention and stenting Hypothyroidism Hyperlipidemia Chronic atrial fibrillation. The patient is currently on long-term anticoagulation with Eliquis, currently requiring a Cardizem drip. History of gallstone pancreatitis Poor overall functional performance based on the above-mentioned multiple comorbidities Plan: Clinically stable ,will continue the same treatment and the completed the course of ABX Chest x-ray findings are stable Continued on cefepime PICC line in place metoprolol for rate control Anticoagulated with Eliquis Remains stable and on room air Continued on bronchodilators, steroids, the patient is currently on a prednisone burst taper We will continue to follow
[2023-04-16 12:04] VITALS: PULSE 72
[2023-04-16 12:35] LABS: Glucose,Whole Blood 310 mg/dL (70-110)
[2023-04-16] MEDS: LACTATED RINGERS 1,000 ML IV SCH (12:37)
--- NOTE | 2023-04-16 12:55 | P.DS ---
Providers Date of admission: 04/06/23 20:06 Expected date of discharge: 04/16/23 Attending physician: Karoline Mg Consults: 04/06/23 20:05 Consult Physician Routine Consulting Provider: Leonel Mcdowell Consult Reason/Comments: chf Do you want consulting provider notified?: Yes Consult Physician Routine Consulting Provider: Neymar Osuna Consult Reason/Comments: copd Do you want consulting provider notified?: Yes 04/07/23 10:33 Consult Physician Routine Consulting Provider: Monae Garcia Consult Reason/Comments: possible sepsis Do you want consulting provider notified?: Yes 04/13/23 19:01 Consult Physician Routine Consulting Provider: Frederick Vazquez Consult Reason/Comments: Afib RVR Do you want consulting provider notified?: Yes Primary care physician: Teresa Walter [facility] Course: Diagnosis on discharge: Acute exacerbation of chronic systolic congestive heart failure Acute exacerbation of chronic obstructive pulmonary disease Positive Pseudomonas aerugninosa sputum Sepsis as evidenced by leukocytosis and elevated lactic acid A. fib with rapid ventricular response. Patient started on a Cardizem cardiology service is consulted. Patient maintained on anticoagulation with eliquis Underlying history of moderate aortic stenosis Underlying history of severe pulmonary hypertension Underlying history of coronary artery disease with history of coronary artery bypass graft surgery Underlying history of hypertension Underlying history of hyperlipidemia Underlying history of insulin-dependent diabetes mellitus Underlying history of chronic atrial fibrillation Underlying history of chronic kidney disease stage III Hospital course: Patrick Banuelos, is a 77-year-old male who presented to [facility] emergency room with a chief complaint of worsening shortness of breath, patient was recently admitted to the hospital, with similar complaint, at that time he was diagnosed with acute exacerbation of COPD and acute exacerbation of congestive heart failure, he was treated with IV Lasix IV steroids and inhaled bronchodilators, he was seen by pulmonary and cardiology during that admission, he improved and was discharged home, however patient's symptoms recurred and were worsening, he was only able to walk a few steps without having severe shortness of breath and he decided to come back to emergency room. He was evaluated in the emergency room vital examination on presentation revealed a temperature of 98.1 pulse 91 respiration 22 blood pressure 121/83 pulse ox 92% on room air Laboratory data revealed a white blood count of 15.2 hemoglobin 14.8 platelet count 119 sodium 131 BUN 55 creatinine 1.18 glucose level 394 lactic acid was elevated at 2.6 BNP 3400 Testing in the emergency room revealed chest x-ray done in the emergency room revealed cardiomegaly with mild pulmonary vascular congestion Patient was admitted to medical floor for further evaluation and treatment On review of systems patient is complaining of cough and shortness of breath otherwise he denies any complaints there is no fever or chills no headache or dizziness no chest pain no palpitation no nausea or vomiting no abdominal pain no diarrhea no blood in the stools no burning with urination no frequency or urgency and no hematuria. On 04/08/2023 patient is alert and oriented times. Patient still requiring some shortness of breath currently taking Rocephin and azithromycin. Patient was maintained on IV Lasix, IV Solu-Medrol and DuoNeb breathing treatments. Cardiology, pulmonary and infectious disease services are following. Vital signs temp 97.4, heart rate 94, respiratory 17, blood pressure 126/82 with a pulse ox 96% on room air. On 04/09/2023 patient was seen and examined on the medical floor he is alert and oriented 3 in no apparent distress he is still complaining of cough and shortness of breath otherwise he denies any complaints there is no fever or chi lls no headache or dizziness no chest pain no shortness of breath no cough no nausea or vomiting no abdominal pain no blood in the stools no diarrhea no burning with urination no frequency or urgency and no hematuria. Patient is scheduled for bronchoscopy this morning, he remains on IV antibiotic Rocephin and Zithromax, he is receiving IV Solu-Medrol and insulin. On 04/10/2023 alert and oriented 3. Patient reports improvement with shortness of breath and cough. Status post bronchoscopy with positive sputum for Pseudomonas aeruginosa. Antibiotics adjusted to Maxipime. Steroids also switc hed over to by mouth prednisone. This time patient denies chest pain. Patient denies nausea vomiting or diarrhea. Patient denies any urinary burning or frequency. On 04/11/2023 patient was seen and examined on the medical floor he is alert and oriented 3 in no apparent distress he is still complaining of cough and shortness of breath otherwise he denies any complaints there is no fever or chi lls no headache or dizziness no chest pain no nausea or vomiting no abdominal pain no diarrhea and no urinary symptoms. Plan per pulmonary is to proceed with repeat bronchoscopy in a.m. tomorrow On 04/12/2023 patient is alert and oriented 3. Plans for pulmonary to proceed with repeat bronchoscopy today. Patient does report improvement. Patient denies chest pain. Patient denies nausea vomiting or diarrhea. Patient denies any urinary burning or frequency. Patient has PICC line in place patient also requesting social work services for possible discharge planning to rehab facility for IV antibiotics. On 04/13/2023 patient was seen and examined on the medical floor he is alert and oriented 3 in no apparent distress he is still complaining of cough and shortness of breath otherwise he denies any complaints there is no fever or chills no headache or dizziness no chest pain no nausea or vomiting no abdominal pain no diarrhea and no urinary symptoms. Continue with IV antibiotics at this time, PICC line is in place and functioning well, plan [facility]. On 04/14/2023 patient is alert and oriented 3 currently resting complaint bed. Patient will back in A. fib with RVR yesterday. Patient started on Cardizem drip cardiology services reconsulted. Patient remains on eliquis for anticoagulation. Patient remains on IV Maxipime for antibiotics PICC line in place. Discharge planning in progress [facility] On 04/15/2023 patient was seen and examined on the medical floor he is alert and oriented 3 in no apparent distress he is still complaining of cough and shortness of breath otherwise he denies any complaints there is no fever or chills no headache or dizziness no chest pain no nausea or vomiting no abdominal pain no diarrhea and no urinary symptoms. Continue with IV antibiotics at this time, PICC line is in place and functioning well, plan for transfer to jail tomorrow. On 04/16/2023 patient was seen and examined on the medical floor he is alert and oriented 3 in no apparent distress he is still complaining of occasional cough and shortness of breath with any activity otherwise he denies any complaints there is no fever or chills no headache or dizziness no chest pain, no palpitation no nausea or vomiting no abdominal pain no diarrhea no blood in the stools no burning with urination no frequency or urgency no hematuria. Patient was cleared by cardiology pulmonary and infectious disease [facility], he has a PICC line placed, he will be maintained on IV antibiotic cefepime until 04/24/2023, he will also be on a prednisone taper. Plan - Discharge Summary New Discharge Prescriptions: New Ipratropium-Albuterol Nebulize [Duoneb 0.5 mg-3 mg/3 ml Soln] 3 ml INHALATION RT-QID each Cefepime [Maxipime] 2 gm IVPB Q12H each predniSONE 30 mg PO DAILY tab Aspirin 81 mg PO DAILY tab Dapagliflozin Propanediol [Farxiga] 10 mg PO DAILY tab Potassium Chloride ER [K-Dur 20] 20 meq PO BID tab Furosemide [Lasix] 40 mg PO BID@0900,1600 tab Insulin Detemir (Levemir) [Levemir] 40 unit SQ DAILY@0700 each INSULIN ASPART (NovoLOG) [NovoLOG (formulary)] 0 unit SQ ACHS each Metoprolol Succinate (ER) [Toprol XL] 50 mg PO DAILY tab Continue allopurinoL [Zyloprim] 300 mg PO DAILY Levothyroxine Sodium [Synthroid] 125 mcg PO DAILY Gabapentin 1,200 mg PO TID@1400,1800,2200 Levothyroxine Sodium [Synthroid] 112 mcg PO DAILY Nitroglycerin Sl Tabs [Nitrostat] 0.4 mg SL Q5M PRN PRN Reason: Chest Pain Meclizine [Antivert] 12.5 mg PO TID PRN PRN Reason: Vertigo Magnesium Oxide [Mag-Ox] 400 mg PO BID Budesonide/Formoterol Fumarate [Symbicort 80-4.5 Mcg Inhaler] 2 puff INHAL ATION RT-BID Glimepiride [Amaryl] 2 mg PO BID Nystatin 100,000 Unit/ml Susp [Mycostatin Oral Susp] 500,000 unit PO QID 4 Days #160 ml guaiFENesin-DM 600/30MG [Mucinex Dm] 2 tab PO Q12HR Atorvastatin [Lipitor] 40 mg PO HS Apixaban [Eliquis] 5 mg PO BID HYDROcodone/APAP 7.5-325MG [[place] 7.5-325] 1 tab PO BID PRN PRN Reason: Pain Omeprazole 20 mg PO DAILY Albuterol Sulfate [Proventil Hfa] 1 puff INHALATION RT-Q6H PRN PRN Reason: Wheezing Discontinued carvediloL [Coreg] 6.25 mg PO BID-W/MEALS Furosemide [Lasix] 40 mg PO Q12HR 30 Days #60 tab predniSONE [Deltasone] See Taper PO DIRECTED Discharge Medication List allopurinoL [Zyloprim] 300 mg PO DAILY 08/07/17 [History] Gabapentin 1,200 mg PO TID@1400,1800,2200 10/02/18 [History] Levothyroxine Sodium [Synthroid] 112 mcg PO DAILY 10/02/18 [History] Levothyroxine Sodium [Synthroid] 125 mcg PO DAILY 10/02/18 [History] Nitroglycerin Sl Tabs [Nitrostat] 0.4 mg SL Q5M PRN 10/02/18 [History] Atorvastatin [Lipitor] 40 mg PO HS 10/19/21 [History] Apixaban [Eliquis] 5 mg PO BID 09/28/22 [History] Budesonide/Formoterol Fumarate [Symbicort 80-4.5 Mcg Inhaler] 2 puff INHALATION RT-BID 09/28/22 [History] HYDROcodone/APAP 7.5-325MG [[place] 7.5-325] 1 tab PO BID PRN 09/28/22 [History] Magnesium Oxide [Mag-Ox] 400 mg PO BID 09/28/22 [History] Meclizine [Antivert] 12.5 mg PO TID PRN 09/28/22 [History] Albuterol Sulfate [Proventil Hfa] 1 puff INHALATION RT-Q6H PRN 11/22/22 [History] Omeprazole 20 mg PO DAILY 11/22/22 [History] Glimepiride [Amaryl] 2 mg PO BID 03/29/23 [History] Nystatin 100,000 Unit/ml Susp [Mycostatin Oral Susp] 500,000 unit PO QID 4 Days #160 ml 04/03/23 [Rx] guaiFENesin-DM 600/30MG [Mucinex Dm] 2 tab PO Q12HR 04/06/23 [History] Aspirin 81 mg PO DAILY tab 04/16/23 [Rx] Cefepime [Maxipime] 2 gm IVPB Q12H each 04/16/23 [Rx] Dapagliflozin Propanediol [Farxiga] 10 mg PO DAILY tab 04/16/23 [Rx] Furosemide [Lasix] 40 mg PO BID@0900,1600 tab 04/16/23 [Rx] INSULIN ASPART (NovoLOG) [NovoLOG (formulary)] 0 unit SQ ACHS each 04/16/23 [Rx] Insulin Detemir (Levemir) [Levemir] 40 unit SQ DAILY@0700 each 04/16/23 [Rx] Ipratropium-Albuterol Nebulize [Duoneb 0.5 mg-3 mg/3 ml Soln] 3 ml INHALATION RT-QID each 04/16/23 [Rx] Metoprolol Succinate (ER) [Toprol XL] 50 mg PO DAILY tab 04/16/23 [Rx] Potassium Chloride ER [K-Dur 20] 20 meq PO BID tab 04/16/23 [Rx] predniSONE 30 mg PO DAILY tab 04/16/23 [Rx] Follow up Appointment(s)/Referral(s): Teresa Walter MD [Primary Care Provider] - 1-2 days Frederick Vazquez MD [STAFF PHYSICIAN] - 1 Week Jr Arvizu DO [Doctor of Osteopathic Medicine] - 04/18/23 2:45 pm [facility], [NON-STAFF] - 1 Week ([facility] will call you to arrange a visit)
[2023-04-16] MEDS: GABAPENTIN 400 MG CAP PO SCH (15:00)
== END 2023-04-16 14:57 | DRG 871 ==
LOC: EC 17:45 → 6NMEDSUR 20:05 → OBSVTOIN 20:06 → 6NMEDSUR 20:48
PROVIDERS: ADMIT Internal Medicine; ATTEND Internal Medicine
PROC: 0B9D8ZZ Drainage of Right Middle Lung Lobe, Via Natural or Artificial Opening Endoscopic (ICD-10-PCS; principal; 2023-04-09 12:30)
PROC: 0BJ08ZZ Inspection of Tracheobronchial Tree, Via Natural or Artificial Opening Endoscopic (ICD-10-PCS; principal; 2023-04-09 12:30)
PROC: B5181ZA Fluoroscopy of Superior Vena Cava using Low Osmolar Contrast, Guidance (ICD-10-PCS; 2023-04-11)
PROC: 02HV33Z Insertion of Infusion Device into Superior Vena Cava, Percutaneous Approach (ICD-10-PCS; 2023-04-11)
PROC: 0BJ08ZZ Inspection of Tracheobronchial Tree, Via Natural or Artificial Opening Endoscopic (ICD-10-PCS; 2023-04-12)
PROC: 0B9D8ZZ Drainage of Right Middle Lung Lobe, Via Natural or Artificial Opening Endoscopic (ICD-10-PCS; 2023-04-12)
DX: A41.9 Sepsis, unspecified organism (principal); I50.23 Acute on chronic systolic (congestive) heart failure; I13.0 Hypertensive heart and chronic kidney disease with heart failure and stage 1 through stage 4 chronic kidney disease, or unspecified chronic kidney disease; I48.21 Permanent atrial fibrillation; J44.0 Chronic obstructive pulmonary disease with (acute) lower respiratory infection; J44.1 Chronic obstructive pulmonary disease with (acute) exacerbation; E03.9 Hypothyroidism, unspecified; E11.22 Type 2 diabetes mellitus with diabetic chronic kidney disease; E78.5 Hyperlipidemia, unspecified; I25.10 Atherosclerotic heart disease of native coronary artery without angina pectoris; I25.2 Old myocardial infarction; I25.5 Ischemic cardiomyopathy; I27.20 Pulmonary hypertension, unspecified; I35.0 Nonrheumatic aortic (valve) stenosis; I45.10 Unspecified right bundle-branch block; J20.9 Acute bronchitis, unspecified; N18.30 Chronic kidney disease, stage 3 unspecified; T38.0X5A Adverse effect of glucocorticoids and synthetic analogues, initial encounter; D72.829 Elevated white blood cell count, unspecified; Z28.310 Unvaccinated for COVID-19; Z20.822 Contact with and (suspected) exposure to COVID-19; Z79.01 Long term (current) use of anticoagulants; Z79.2 Long term (current) use of antibiotics; Z79.4 Long term (current) use of insulin; Z79.51 Long term (current) use of inhaled steroids; Z79.890 Hormone replacement therapy; Z79.84 Long term (current) use of oral hypoglycemic drugs; Z79.899 Other long term (current) drug therapy; Z82.49 Family history of ischemic heart disease and other diseases of the circulatory system; Z83.3 Family history of diabetes mellitus; Z86.73 Personal history of transient ischemic attack (TIA), and cerebral infarction without residual deficits; Z95.5 Presence of coronary angioplasty implant and graft; Z96.652 Presence of left artificial knee joint; Z86.14 Personal history of Methicillin resistant Staphylococcus aureus infection; Z88.2 Allergy status to sulfonamides; Z88.8 Allergy status to other drugs, medicaments and biological substances; Z88.5 Allergy status to narcotic agent; Z91.013 Allergy to seafood
CPT/HCPCS: 31624; 36415; 36573; 71046; 80053; 83036; 83605; 83735; 83880; 84145; 84484; 85025; 85610; 85730; 86140; 87040; 87070; 87077; 87186; 87205; 87252; 87496; 87498; 87502; 87529; 87634; 87798; 88108; 88305; 89050; 93005; 94640; 94667; 94760; 99285

== ENCOUNTER 2023-04-25 15:28 | Inpatient (IN) | payer MEDICARE, OTHER ==
[2023-04-25] MEDS ORDERED: SODIUM CHLORIDE 0.9% 1,000 ML IV STA ×2 (15:48→17:18)
[2023-04-25] MEDS ORDERED: DEXTROSE 5% IN WATER 100 ML with AMIODARONE 150 MG IV ONE (15:49)
[2023-04-25] MEDS ORDERED: AMIODARONE 360 MG in DEXTROSE 5% IN WATER 200 ML IV ONE ×2 (15:49)
--- NOTE | 2023-04-25 16:39 | XR ---
EXAMINATION TYPE: XR chest 2V DATE OF EXAM: 04/25/2023 4:34 PM COMPARISON: Chest radiographs from 04/06/2023. TECHNIQUE: XR chest 2V Frontal and lateral views of the chest. CLINICAL INDICATION:Male, 77 years old with history of Weakness; FINDINGS: Lungs/Pleura: There is no evidence of pleural effusion, focal consolidation, or pneumothorax. Pulmonary vascularity: Pulmonary vascular congestion. Heart/mediastinum: Cardiomediastinal silhouette is enlarged and stable. Musculoskeletal: No acute osseous pathology. Midline sternotomy wires are noted. IMPRESSION: 1. No acute cardiopulmonary disease process. 2. COPD changes.
[2023-04-25] MEDS ORDERED: SODIUM CHLORIDE 0.9% 500 ML 500 ML IV STA ×2 (16:42→17:27)
[2023-04-25] MEDS ORDERED: VANCOMYCIN IV PER PHARMACY 1 EACH MISC MISCELLANE PRN (16:42)
[2023-04-25] MEDS ORDERED: VANCOMYCIN 1,500 MG in SODIUM CHLORIDE 0.9% 500 ML 500 ML IVPB STA (16:45)
[2023-04-25 16:46] LABS: ALT 39 U/L (4-49); AST 29 U/L (17-59); African American GFR (CKD) 32 (>60 ml/min/1.73 sqM); Albumin 2.7 g/dL (3.5-5.0); Alkaline Phosphatase 77 U/L (38-126); Anion Gap 8 mmol/L; Blood Urea Nitrogen 54 mg/dL (9-20); Carbon Dioxide 26 mmol/L (22-30); Chloride 99 mmol/L (98-107); Glucose 248 mg/dL (74-99); INR 1.1 (<1.2); Non-African American GFR(CKD) 28 (>60 ml/min/1.73 sqM); Partial Thromboplastin Time 26.6 sec (22.0-30.0); Potassium 5.2 mmol/L (3.5-5.1); Prothrombin Time 11.5 sec (9.0-12.0); Sodium 133 mmol/L (137-145); Total Bilirubin 1.8 mg/dL (0.2-1.3)
[2023-04-25 16:58] LABS: Basophils % (A) 0 %; Eosinophils % (A) 0 %; HCT 37.2 % (39.0-53.0); Lymphocytes # (A) 0.3 k/uL (1.0-4.8); Lymphocytes % (A) 3 %; MCH 31.6 pg (25.0-35.0); MCHC 32.5 g/dL (31.0-37.0); MCV 97.3 fL (80.0-100.0); Mean Platelet Volume 9.1; Monocytes # (A) 0.3 k/uL (0-1.0); Monocytes % (A) 4 %; Neutrophils # (A) 6.9 k/uL (1.3-7.7); Neutrophils % (A) 91 %; RBC 3.82 m/uL (4.30-5.90); RDW 15.2 % (11.5-15.5); WBC 7.6 k/uL (3.8-10.6)
[2023-04-25 17:03] LABS: HGB 12.1 gm/dL (13.0-17.5)
[2023-04-25 17:23] LABS: Platelet Count 79 k/uL (150-450)
[2023-04-25 17:24] LABS: RBC Morphology Normal
[2023-04-25] MEDS ORDERED: ALBUTEROL NEBULIZED 2.5 MG/3 ML INHALATION PRN (17:38)
[2023-04-25] MEDS ORDERED: ASPIRIN 81 MG PO STA (17:38)
[2023-04-25] MEDS ORDERED: NALOXONE 0.4 MG/ML 1 ML VIAL IV PRN (17:55)
[2023-04-25] MEDS ORDERED: IPRATROPIUM-ALBUTEROL 3 ML NEB INHALATION STA (18:42)
--- NOTE | 2023-04-25 18:43 | ED ---
General Adult HPI - General Chief complaint: Shortness of Breath Stated complaint: INA Time Seen by Provider: 04/25/23 15:34 Source: patient, EMS, RN notes reviewed, old records reviewed Mode of arrival: EMS - History of Present Illness Initial comments: Patient is a 77-year-old male who presents emergency Department as a transfer from the [facility] for weakness, shortness of breath, A. fib with RVR. Patient has been having his weakness and shortness of breath since discharge from our facility earlier this month after being diagnosed with pneumonia and placed on IV antibiotics cefepime via PICC line. Patient received a bolus of Cardizem at the outside facility, and became somewhat hypotensive and Cardizem was stopped. Given some phenylephrine. Presents in A. fib with RVR with his above complaints. States had been constant and not progressively worsening. Decided that earlier today was noted to be evaluated. He states he has had decreased oral intake secondary to lack of appetite. Believes he may be dehydrated. Denies fevers. Denies any chest pain. Denies any productive cough. Denies any abdominal pain, nausea, vomiting. Denies diarrhea. Has no other acute complaints at this time. States he has generalized weakness. He presents for further evaluation this time. - Related Data Home Medications Medication Instructions Recorded Confirmed allopurinoL [Zyloprim] 300 mg PO DAILY@0800 08/07/17 04/25/23 Gabapentin 1,200 mg PO TID@1400,1800,2200 10/02/18 04/25/23 Levothyroxine Sodium [Synthroid] 112 mcg PO DAILY@0800 10/02/18 04/25/23 Levothyroxine Sodium [Synthroid] 125 mcg PO DAILY@0800 10/02/18 04/25/23 Nitroglycerin Sl Tabs [Nitrostat] 0.4 mg SL Q5M PRN 10/02/18 04/25/23 Atorvastatin [Lipitor] 40 mg PO HS@199910/19/21 04/25/23 Apixaban [Eliquis] 5 mg PO BID@0800,1700 09/28/22 04/25/23 Budesonide/Formoterol Fumarate 2 puff INHALATION RT-BID@0800,1700 09/28/22 04/25/23 [Symbicort 80-4.5 Mcg Inhaler] HYDROcodone/APAP 7.5-325MG [Bucklin 1 tab PO BID PRN 09/28/22 04/25/23 7.5-325] Magnesium Oxide [Mag-Ox] 400 mg PO BID@0800,1700 09/28/22 04/25/23 Meclizine [Antivert] 12.5 mg PO TID@0700,1200,1700 09/28/22 04/25/23 Albuterol Sulfate [Proventil Hfa] 1 puff INHALATION RT-Q8H PRN 11/22/22 04/25/23 Omeprazole 20 mg PO DAILY@0800 11/22/22 04/25/23 Glimepiride [Amaryl] 2 mg PO BID@0800,1700 03/29/23 04/25/23 Aspirin 81 mg PO DAILY@0730 04/25/23 04/25/23 Cefepime [Maxipime] 2 gm IVPB BID@0900,2100 04/25/23 04/25/23 Dapagliflozin Propanediol [Farxiga] 10 mg PO DAILY@0804/25/23 04/25/23 Furosemide [Lasix] 40 mg PO BID@0700,1300 04/25/23 04/25/23 Insulin Glargine-Yfgn [Semglee 40 units SQ DAILY@79904/25/23 04/25/23 (Yfgn) Pen] Insulin Lispro See Protocol SQ QID@07,12,,04/25/23 04/25/23 Ipratropium-Albuterol Nebulize 3 ml INHALATION RT-Q2H PRN 04/25/23 04/25/23 [Duoneb 0.5 mg-3 mg/3 ml Soln] Ipratropium-Albuterol Nebulize 3 ml INHALATION RT-QID@07,12,17,04/25/23 04/25/23 [Duoneb 0.5 mg-3 mg/3 ml Soln] Metoprolol Succinate (ER) [Toprol 50 mg PO DAILY@0800 04/25/23 04/25/23 XL] Molnupiravir [Molnupiravir (Eua)] 800 mg PO BID@0700,1900 04/25/23 04/25/23 Nystatin 100,000 Unit/ml Susp 500,000 unit PO QID@07,12,17,22 04/25/23 04/25/23 [Mycostatin Oral Susp] Potassium Chloride ER [K-Dur 20] 20 meq PO BID@0800,1700 04/25/23 04/25/23 Allergies Allergy/AdvReac Type Severity Reaction Status Date / Time Sulfa (Sulfonamide Allergy Mild Rash/Hives Verified 04/25/23 16:17 Antibiotics) cephalexin [From Keflex] Allergy Unknown Verified 04/25/23 16:17 clopidogrel [From Plavix] Allergy Rash/Hives Verified 04/25/23 16:17 codeine Allergy Rash/Nausea Verified 04/25/23 16:17 & Vomiting Iodine and Iodide Containing Allergy Rash/Hives Verified 04/25/23 16:17 Produc levofloxacin [From Levaquin] Allergy urticaria/r Verified 04/25/23 16:17 belle shellfish derived [Shellfish] Allergy urticaria/r Verified 04/25/23 16:17 belle lisinopril AdvReac Angiodema Verified 04/25/23 16:17 of tongue oxycodone AdvReac Hallucinati Verified 04/25/23 16:17 ons solifenacin AdvReac Nausea & Verified 04/25/23 16:17 Vomiting Review of Systems ROS Statement: Those systems with pertinent positive or pertinent negative responses have been documented in the HPI. Review of Systems: CONST: Denies fever EYES: Denies blurry vision ENT: Denies nasal congestion C/V: Denies Chest pain RESP: Endorses shortness of breath GI: Denies abdominal pain : Denies dysuria SKIN: Denies rash. MSK: Denies joint pain. NEURO: Denies headache ROS Other: All systems not noted in ROS Statement are negative. Past Medical History Past Medical History: Atrial Fibrillation, Coronary Artery Disease (CAD), Heart Failure, COPD, CVA/TIA, Diabetes Mellitus, Hypertension, Myocardial Infarction (SC) Additional Past Medical History / Comment(s): left knee cap broken, pancreatitis, /gallstones, Patient reports having stroke like symptoms after injection in knee, Last Myocardial Infarction Date:: 2017 History of Any Multi-Drug Resistant Organisms: MRSA Date of last positivie culture/infection: 10/01/22 MDRO Source:: Sputum Past Surgical History: Cholecystectomy, Coronary Bypass/CABG, Heart Catheterization With Stent, Hernia Repair, Orthopedic Surgery Additional Past Surgical History / Comment(s): lt knee replacement(total of 4 sx), colonoscopy, Left knee cap removal with antibiotic spacers placed, Past Anesthesia/Blood Transfusion Reactions: No Reported Reaction Date of Last Stent Placement:: 10/2015 Past Psychological History: No Psychological Hx Reported Smoking Status: Former smoker Past Alcohol Use History: Occasional Past Drug Use History: None Reported - Past Family History Father Family Medical History: Diabetes Mellitus Mother Family Medical History: CVA/TIA, Hypertension General Exam - General Exam Comments Initial Comments: General: Appears in mild distress. HEAD: Normal with no signs of head trauma. EYES: PERRLA, EOMI, conjunctiva normal, no discharge. Pupils are 3 mm and equal bilaterally. ENT: Hearing grossly intact, normal oropharynx. Dry mucous membranes. RESPIRATORY: Clear breath sounds bilaterally. No wheezes, rales, or rhonchi. Mild hypoxia on 2 L nasal cannula. baseline oxygen nasal cannula since previous admission. C/V: Irregular rate and rhythm. S1 and S2 auscultated. Peripheral pulses 2+ intact throughout. No significant pitting edema. ABD: Abd is soft, nontender, nondistended EXT: Normal range of motion, no obvious deformity SKIN: No rashes or lesions observed on exposed skin. NEURO: Alert and oriented x 4. Cranial nerves II-XII intact. No focal sensory or strength deficits. Course Vital Signs 04/25/23 04/25/23 04/25/23 15:30 15:39 15:55 Temperature 98.2 F Pulse Rate 47 L 132 H 130 H Respiratory 20 20 20 Rate Blood Pressure 102/86 83/48 70/55 O2 Sat by Pulse 99 97 97 Oximetry 04/25/23 04/25/23 04/25/23 16:15 17:16 18:19 Temperature Pulse Rate 116 H 90 80 Respiratory 18 20 20 Rate Blood Pressure 126/78 93/68 80/54 O2 Sat by Pulse 97 100 100 Oximetry 04/25/23 04/25/23 04/25/23 18:45 19:11 19:19 Temperature Pulse Rate 88 96 99 Respiratory 20 Rate Blood Pressure 78/64 O2 Sat by Pulse 99 Oximetry 04/25/23 04/25/23 04/25/23 19:37 20:21 20:58 Temperature Pulse Rate 112 H 106 H 103 H Respiratory 22 22 22 Rate Blood Pressure 110/71 106/68 105/69 O2 Sat by Pulse 96 98 99 Oximetry Medical Decision Making - Medical Decision Making Was pt. sent in by a medical professional or institution (LOYDA Lopes, SPRAYING MACHINE OPERATOR, urgent care, hospital, or jail...) When possible be specific @ -Sent from [facility] via transfer for A. fib with RVR and dyspnea Did you speak to anyone other than the patient for history (EMS, parent, family, police, friend...)? What history was obtained from this source @ -No Did you review nursing and triage notes (agree or disagree)? Why? @ -I reviewed and agree with nursing and triage notes Were old charts reviewed (outside hosp., previous admission, EMS record, old EKG, old radiological studies, urgent care reports/EKG's, jail records)? Report findings @ -Reviewed previous charts from earlier this month upon admission. Differential Diagnosis (chest pain, altered mental status, abdominal pain women, abdominal pain men, vaginal bleeding, weakness, fever, dyspnea, syncope, headache, dizziness, GI bleed, back pain, seizure, CVA, palpatations, mental health, musculoskeletal)? @ -Differential Dyspnea: Coronary syndrome, arrhythmia, tamponade, asthma, COPD, pulmonary embolism, pneumonia, pneumothorax, pulmonary effusion, anaphylaxis, diabetic ketoacidosis, flailed chest, pulmonary contusion, diaphragmatic rupture, anemia, neuromuscular, this is not meant to be an all-inclusive list. EKG interpreted by me (3pts min.). @ -As above X-rays interpreted by me (1pt min.). @ -Chest xRay reveals no obvious acute cardio pulmonary process. CT interpreted by me (1pt min.). @ -None done U/S interpreted by me (1pt. min.). @ -None done What testing was considered but not performed or refused? (CT, X-rays, U/S, labs )? Why? @ -None What meds were considered but not given or refused? Why? @ -None Did you discuss the management of the patient with other professionals (professionals i.e. LOYDA Lopes, SPRAYING MACHINE OPERATOR, lab, RT, psych nurse, public health social worker, public health social worker, teacher, community chest officer, manager of case)? Give summary @ -Discussed with Dr. Mg the admitting physician who accepted the patient. Discussed with ICU attending Dr. Osuna who accepted the patient to ICU and was in agreement with the plan. Was smoking cessation discussed for >3mins.? @ -No Was critical care preformed (if so, how long)? @ -Yes, 45 minutes Were there social determinants of health that impacted care today? How? (Homelessness, low income, unemployed, alcoholism, drug addiction, transportation, low edu. Level, literacy, decrease access to med. care, fpc, rehab)? @ -No Was there de-escalation of care discussed even if they declined (Discuss DNR or withdrawal of care, Hospice)? DNR status @ -No What co-morbidities impacted this encounter? (DM, HTN, Smoking, COPD, CAD, Cancer, CVA, ARF, Chemo, Hep., AIDS, mental health diagnosis, sleep apnea, morbid obesity)? @ -None Was patient admitted / discharged? Hospital course, mention meds given and route, prescriptions, significant lab abnormalities, going to OR and other pertinent info. @ -Based on the patient's presentation and physical exam, presents with clinical dehydration, hypotension, A. fib with RVR. Patient is no evidence of volume overload at this time. We will fluid hydrate the patient and reevaluate. He was in agreement this plan. Also obtain cardiopulmonary labs. EKG showed no signs of acute ischemia. Patient's rapid ventricular response did resolve with IV fluids however he maintained hypotensive with maps ranging between 60 and 65. Labs remarkable for a hyperkalemia 5.2 which was treated with the fluids, an JEREMY on CK D with an elevated BUN/creatinine above baseline, lactic acidosis likely secondary to dehydration, infection, A. fib with RVR, as well as a elevated troponin likely secondary to A. fib with RVR and hypertension as well. On reevaluation, we discussed his workup. He remains hypotensive despite multiple fluid boluses. At this time we will start the patient on low-dose norepinephrine was peripheral line. He was in agreement this plan. We will also send cultures but resume patient's IV cefepime and add on vancomycin at t his time. He requires admission to the hospital. Troponin will be trended. Pulmonology will be consulted Dr. Osuna who accepted the patient by serum was in agreement with the plan. Cardiology is consulted. I spoke with the admitting physician, Dr. Mg who accepted the patient. Discussed with Dr. Mg the admitting physician who accepted the patient. Discussed with ICU attending Dr. Osuna who accepted the patient to ICU and was in agreement with the plan. Undiagnosed new problem with uncertain prognosis? @ -No Drug Therapy requiring intensive monitoring for toxicity (Heparin, Nitro, Insulin, Cardizem)? @ -No Were any procedures done? @ -No Diagnosis/symptom? @ -Shock, undifferentiated but suspect septic, requiring vasopressor therapy Acute, or Chronic, or Acute on Chronic? @ -Acute Uncomplicated (without systemic symptoms) or Complicated (systemic symptoms)? @ -Complicated Side effects of treatment? @ -No Exacerbation, Progression, or Severe Exacerbation? @ -No Poses a threat to life or bodily function? How? (Chest pain, USA, SC, pneumonia, PE, COPD, DKA, ARF, appy, cholecystitis, CVA, Diverticulitis, Homicidal, Suicidal, threat to staff... and all critical care pts) @ -Yes Diagnosis/symptom? @ -Currently on IV antibiotics via PICC line for pneumonia, acute on chronic hypoxic respiratory failure Acute, or Chronic, or Acute on Chronic? @ -Acute on chronic Uncomplicated (without systemic symptoms) or Complicated (systemic symptoms)? @ -Complicated Side effects of treatment? @ -none Exacerbation, Progression, or Severe Exacerbation] @ -no Poses a threat to life or bodily function? @ -Yes Diagnosis/symptom? @ -Dehydration, JEREMY on CKD Acute, or Chronic, or Acute on Chronic? @ -Acute Uncomplicated (without systemic symptoms) or Complicated (systemic symptoms)? @ -Complicated Side effects of treatment? @ -none Exacerbation, Progression, or Severe Exacerbation] @ -no Poses a threat to life or bodily function? @ -Yes Diagnosis/symptom? @ -Elevated troponin likely secondary to hypotension and A. fib RVR Acute, or Chronic, or Acute on Chronic? @ -Acute Uncomplicated (without systemic symptoms) or Complicated (systemic symptoms)? @ -Uncomplicated Side effects of treatment? @ -none Exacerbation, Progression, or Severe Exacerbation] @ -no Poses a threat to life or bodily function? @ -no Diagnosis/symptom? @ -Atrial fibrillation with RVR Acute, or Chronic, or Acute on Chronic? @ -Acute on chronic Uncomplicated (without systemic symptoms) or Complicated (systemic symptoms)? @ -Complicated Side effects of treatment? @ -none Exacerbation, Progression, or Severe Exacerbation] @ -no Poses a threat to life or bodily function? @ -Yes - Lab Data Result diagrams: 04/25/23 15:58 04/25/23 16:04 Lab Results 04/25/23 04/25/23 04/25/23 Range/Units 15:50 15:58 16:04 WBC 7.6 (3.8-10.6) k/uL RBC 3.82 L (4.30-5.90) m/uL Hgb 12.1 L D (13.0-17.5) gm/dL Hct 37.2 L (39.0-53.0) % MCV 97.3 (80.0-100.0) fL MCH 31.6 (25.0-35.0) pg MCHC 32.5 (31.0-37.0) g/dL RDW 15.2 (11.5-15.5) % Plt Count 79 L (150-450) k/uL MPV 9.1 Neutrophils % 91 % Lymphocytes % 3 % Monocytes % 4 % Eosinophils % 0 % Basophils % 0 % Neutrophils # 6.9 (1.3-7.7) k/uL Lymphocytes # 0.3 L (1.0-4.8) k/uL Monocytes # 0.3 (0-1.0) k/uL Eosinophils # 0.0 (0-0.7) k/uL Basophils # 0.0 (0-0.2) k/uL Manual Slide Review Performed RBC Morphology Normal PT 11.5 (9.0-12.0) sec INR 1.1 (<1.2) APTT 26.6 (22.0-30.0) sec Sodium (137-145) mmol/L Potassium (3.5-5.1) mmol/L Chloride (98-107) mmol/L Carbon Dioxide (22-30) mmol/L Anion Gap mmol/L BUN (9-20) mg/dL Creatinine (0.66-1.25) mg/dL Est GFR (CKD-EPI)AfAm (>60 ml/min/1.73 sqM) Est GFR (CKD-EPI)NonAf (>60 ml/min/1.73 sqM) Glucose (74-99) mg/dL Lactic Ac Sepsis Rflx Plasma Lactic Acid Gideon (0.7-2.0) mmol/L Calcium (8.4-10.2) mg/dL Magnesium (1.6-2.3) mg/dL Total Bilirubin (0.2-1.3) mg/dL AST (17-59) U/L ALT (4-49) U/L Alkaline Phosphatase (38-126) U/L Troponin I (0.000-0.034) ng/mL NT-Pro-B Natriuret Pep pg/mL Total Protein (6.3-8.2) g/dL Albumin (3.5-5.0) g/dL Blood Type A Positive Blood Type Recheck A Pos Bld Type Recheck Status No Antibody Screen NEGATIVE Spec Expiration Date 04/28/2023 - 234904/25/23 04/25/23 04/25/23 Range/Units 16:04 16:04 16:04 WBC (3.8-10.6) k/uL RBC (4.30-5.90) m/uL Hgb (13.0-17.5) gm/dL Hct (39.0-53.0) % MCV (80.0-100.0) fL MCH (25.0-35.0) pg MCHC (31.0-37.0) g/dL RDW (11.5-15.5) % Plt Count (150-450) k/uL MPV Neutrophils % % Lymphocytes % % Monocytes % % Eosinophils % % Basophils % % Neutrophils # (1.3-7.7) k/uL Lymphocytes # (1.0-4.8) k/uL Monocytes # (0-1.0) k/uL Eosinophils # (0-0.7) k/uL Basophils # (0-0.2) k/uL Manual Slide Review RBC Morphology PT (9.0-12.0) sec INR (<1.2) APTT (22.0-30.0) sec Sodium 133 L (137-145) mmol/L Potassium 5.2 H (3.5-5.1) mmol/L Chloride 99 (98-107) mmol/L Carbon Dioxide 26 (22-30) mmol/L Anion Gap 8 mmol/L BUN 54 H (9-20) mg/dL Creatinine 2.21 H (0.66-1.25) mg/dL Est GFR (CKD-EPI)AfAm 32 (>60 ml/min/1.73 sqM) Est GFR (CKD-EPI)NonAf 28 (>60 ml/min/1.73 sqM) Glucose 248 H (74-99) mg/dL Lactic Ac Sepsis Rflx Plasma Lactic Acid Gideon 2.6 H* (0.7-2.0) mmol/L Calcium 8.0 L (8.4-10.2) mg/dL Magnesium 2.0 (1.6-2.3) mg/dL Total Bilirubin 1.8 H (0.2-1.3) mg/dL AST 29 (17-59) U/L ALT 39 (4-49) U/L Alkaline Phosphatase 77 (38-126) U/L Troponin I 0.322 H* (0.000-0.034) ng/mL NT-Pro-B Natriuret Pep pg/mL Total Protein 5.0 L (6.3-8.2) g/dL Albumin 2.7 L (3.5-5.0) g/dL Blood Type Blood Type Recheck Bld Type Recheck Status Antibody Screen Spec Expiration Date 04/25/23 04/25/23 Range/Units 16:04 16:54 WBC (3.8-10.6) k/uL RBC (4.30-5.90) m/uL Hgb (13.0-17.5) gm/dL Hct (39.0-53.0) % MCV (80.0-100.0) fL MCH (25.0-35.0) pg MCHC (31.0-37.0) g/dL RDW (11.5-15.5) % Plt Count (150-450) k/uL MPV Neutrophils % % Lymphocytes % % Monocytes % % Eosinophils % % Basophils % % Neutrophils # (1.3-7.7) k/uL Lymphocytes # (1.0-4.8) k/uL Monocytes # (0-1.0) k/uL Eosinophils # (0-0.7) k/uL Basophils # (0-0.2) k/uL Manual Slide Review RBC Morphology PT (9.0-12.0) sec INR (<1.2) APTT (22.0-30.0) sec Sodium (137-145) mmol/L Potassium (3.5-5.1) mmol/L Chloride (98-107) mmol/L Carbon Dioxide (22-30) mmol/L Anion Gap mmol/L BUN (9-20) mg/dL Creatinine (0.66-1.25) mg/dL Est GFR (CKD-EPI)AfAm (>60 ml/min/1.73 sqM) Est GFR (CKD-EPI)NonAf (>60 ml/min/1.73 sqM) Glucose (74-99) mg/dL Lactic Ac Sepsis Rflx Y Plasma Lactic Acid Gideon (0.7-2.0) mmol/L Calcium (8.4-10.2) mg/dL Magnesium (1.6-2.3) mg/dL Total Bilirubin (0.2-1.3) mg/dL AST (17-59) U/L ALT (4-49) U/L Alkaline Phosphatase (38-126) U/L Troponin I (0.000-0.034) ng/mL NT-Pro-B Natriuret Pep 01408 pg/mL Total Protein (6.3-8.2) g/dL Albumin (3.5-5.0) g/dL Blood Type Blood Type Recheck Bld Type Recheck Status Antibody Screen Spec Expiration Date - EKG Data -: EKG Interpreted by Me EKG Comments: 12-lead Electrocardiogram Interpretation Note EKG was reviewed and interpreted by myself. 12-lead ECG performed at 1545 is interpreted by me as revealing A. fib with RVR at a rate of 121 beats per minute. Right axis deviation with right bundle branch block. QRS duration is 159 ms, QTc is 375 ms. There were no obvious acute ST or T wave abnormalities to suggest myocardial ischemia or injury, except for some T-wave inversions in lateral precordial leads with very subtle ST segment depressions, likely secondary to acute A. fib with RVR.. R wave progression across the precordium was delayed. 12-lead Electrocardiogram Interpretation Note EKG was reviewed and interpreted by myself. 12-lead ECG performed at 1827 is interpreted by me as revealing atrial fibrillation with PVCs at a rate of 90 beats per minute. Right axis deviation with right bundle branch block. QRS duration is 163 ms, QTc is 465 ms. T wave inversions redemonstrates in the lateral precordial leads with some artifact which does make interpretation difficult.. R wave progression across the precordium was delayed. By my interpretation this EKG is non-diagnostic for acute ischemia. Critical Care Time Critical Care Time: Yes Total Critical Care Time: 45 Disposition Clinical Impression: Weakness, Hypotension, Shock, Pneumonia, Acute kidney injury superimposed on CKD, Atrial fibrillation with RVR, Dehydration Disposition: ADMITTED IP TO THIS [facility] Condition: Serious Time of Disposition: 17:42
[2023-04-25] MEDS: NOREPINEPHRINE 4 MG in SODIUM CHLORIDE 0.9% 250 ML IV ONE (18:58)
[2023-04-25] MEDS: GABAPENTIN 400 MG CAP PO SCH ×2 (19:37→19:53)
[2023-04-25] MEDS: ATORVASTATIN 40 MG TAB PO SCH ×2 (19:37→19:55)
[2023-04-25] MEDS: CEFEPIME 2 GM in SODIUM CHLORIDE 0.9% 100 ML IVPB SCH (20:18)
[2023-04-25] MEDS ORDERED: AMIODARONE 450 MG in DEXTROSE 5% IN WATER 250 ML IV SCH ×2 (22:00)
[2023-04-26] MEDS ORDERED: KETOROLAC 15 MG/ML 1 ML VIAL IVP SCH
[2023-04-26 00:41] LABS: Glucose,Whole Blood 255 mg/dL (70-110)
[2023-04-26] MEDS ORDERED: ALBUTEROL NEBULIZED 2.5 MG/3 ML INHALATION PRN (00:42)
[2023-04-26 04:12] LABS: Basophils % (A) 0 %; Eosinophils # (A) 0.1 k/uL (0-0.7); Eosinophils % (A) 1 %; HCT 37.1 % (39.0-53.0); Hypochromasia Slight; Lymphocytes # (A) 0.3 k/uL (1.0-4.8); Lymphocytes % (A) 4 %; MCH 32.6 pg (25.0-35.0); MCHC 32.4 g/dL (31.0-37.0); MCV 100.4 fL (80.0-100.0); Macrocytosis Slight; Mean Platelet Volume 8.7; Monocytes # (A) 0.4 k/uL (0-1.0); Monocytes % (A) 5 %; Neutrophils # (A) 7.2 k/uL (1.3-7.7); Neutrophils % (A) 89 %; Platelet Count 78 k/uL (150-450); RDW 15.1 % (11.5-15.5); WBC 8.1 k/uL (3.8-10.6)
[2023-04-26 04:27] LABS: African American GFR (CKD) 33 (>60 ml/min/1.73 sqM); Anion Gap 6 mmol/L; Blood Urea Nitrogen 57 mg/dL (9-20); Calcium 7.9 mg/dL (8.4-10.2); Carbon Dioxide 24 mmol/L (22-30); Chloride 104 mmol/L (98-107); Glucose 178 mg/dL (74-99); Non-African American GFR(CKD) 29 (>60 ml/min/1.73 sqM); Potassium 4.7 mmol/L (3.5-5.1); Sodium 134 mmol/L (137-145)
[2023-04-26] MEDS ORDERED: APIXABAN 5 MG TAB PO SCH (08:00)
[2023-04-26] MEDS: LEVOTHYROXINE 125 MCG TAB PO SCH (08:15)
[2023-04-26] MEDS: METOPROLOL SUCCINATE (ER) 50 MG TAB.ER.24H PO SCH (08:15)
[2023-04-26] MEDS: FUROSEMIDE 40 MG TAB PO SCH ×2 (08:15→14:21)
[2023-04-26] MEDS: GLIMEPIRIDE 2 MG TAB PO SCH ×2 (08:15→17:29)
[2023-04-26] MEDS: LEVOTHYROXINE 112 MCG TAB PO SCH (08:15)
[2023-04-26] MEDS: CEFEPIME 2 GM in SODIUM CHLORIDE 0.9% 100 ML IVPB SCH ×2 (08:16→20:07)
--- NOTE | 2023-04-26 08:35 | XR ---
EXAMINATION TYPE: XR chest 1V DATE OF EXAM: 04/26/2023 CLINICAL HISTORY: Difficulty breathing progress study. COPD and shortness of breath. TECHNIQUE: Single AP portable upright view of the chest is obtained. COMPARISON: Chest x-ray from one day earlier FINDINGS: Stable left-sided PICC line. Overlying sternal wires superior 1's which are broken are red emonstrated. Background chronic emphysematous change with scattered parenchymal fibrosis greatest in the left lung base is redemonstrated. No new focal airspace opacity, pleural effusion, pneumothorax i s seen bilaterally. Stable mild cardiomegaly. Osseous structures are intact. IMPRESSION: Chronic changes and mild cardiomegaly without acute pulmonary process. No significant javier nge from one day earlier.
[2023-04-26 10:07] LABS: Appearance,Urine Clear (Clear); Bacteria,Urine Rare /hpf; Bilirubin,Urine Negative (Negative); Blood,Urine Moderate (Negative); Color,Urine Light Yellow; Glucose,Urine (UA) 3+ (Negative); Ketones,Urine Negative (Negative); Leukocyte Esterase,Urine Trace (Negative); Mucus,Urine Rare /hpf; Nitrite,Urine Negative (Negative); PH, Urine 5.5 (5.0-8.0); Protein,Urine 1+ (Negative); RBC,Urine 4 /hpf (0-5); Specific Gravity,Urine 1.011 (1.001-1.035); Squamous Epithelial Cell,Urine <1 /hpf (0-4); Urobilinogen,Urine <2.0 mg/dL (<2.0); WBC,Urine 4 /hpf (0-5)
[2023-04-26] MEDS: PANTOPRAZOLE 40 MG TABLET PO SCH (10:41)
--- NOTE | 2023-04-26 11:13 | P.NPCON ---
History of Present Illness - Reason for Consult acute renal failure - History of Present Illness Patient is a 77-year-old male who was transferred from [facility]. He presented there with complaints of shortness of breath and increased weakness. Patient was noted to have A. fib with RVR. He denied any chest pains. Patient was just discharged from the hospital on 04/16/2023 after being hospital ized for about 10 days. Patient was treated for acute on chronic systolic CHF and acute exacerbation of COPD with Pseudomonas pneumonia. Patient has underlying history of CK D stage IIIb with baseline creatinine about 1.3-1.5 mg/dL secondary to diabetic kidney disease. Serum creatinine was 2.1 mg/dL this admission. It was 1.35 on 04/15/2023 at the time of discharge. Blood pressure was low this admission with systolic in the 80s Patient was maintained on cefepime at home. Lasix was 40 mg twice a day. Patient is currently maintained on IV Lasix and has good urine output at about 150-200 mL per hour. Heart rate around 110-1 26 bpm No pressors Review of Systems As per HPI Past Medical History Past Medical History: Atrial Fibrillation, Coronary Artery Disease (CAD), Heart Failure, COPD, CVA/TIA, Diabetes Mellitus, Hypertension, Myocardial Infarction ([place]) Additional Past Medical History / Comment(s): left knee cap broken, pancreatitis, /gallstones, Patient reports having stroke like symptoms after injection in knee, Last Myocardial Infarction Date:: 2017 History of Any Multi-Drug Resistant Organisms: MRSA Date of last positivie culture/infection: 10/01/22 MDRO Source:: Sputum Past Surgical History: Cholecystectomy, Coronary Bypass/CABG, Heart Catheterization With Stent, Hernia Repair, Orthopedic Surgery Additional Past Surgical History / Comment(s): lt knee replacement(total of 4 sx), colonoscopy, Left knee cap removal with antibiotic spacers placed, Past Anesthesia/Blood Transfusion Reactions: No Reported Reaction Date of Last Stent Placement:: 10/2015 Past Psychological History: No Psychological Hx Reported Additional Psychological History / Comment(s): Pt resides with his spouse. He uses a walker to ambulate. Smoking Status: Former smoker Past Alcohol Use History: Occasional Additional Past Alcohol Use History / Comment(s): Pt started smoking as teen and quit 1983 smoked 2 ppd. Pt usually has one drink a night. Past Drug Use History: None Reported - Past Family History Father Family Medical History: Diabetes Mellitus Mother Family Medical History: CVA/TIA, Hypertension Medications and Allergies Home Medications Medication Instructions Recorded Confirmed Type allopurinoL [Zyloprim] 300 mg PO DAILY@0800 08/07/17 04/25/23 History Gabapentin 1,200 mg PO TID@1400,1800,2200 10/02/18 04/25/23 History Levothyroxine Sodium [Synthroid] 112 mcg PO DAILY@0800 10/02/18 04/25/23 History Levothyroxine Sodium [Synthroid] 125 mcg PO DAILY@0800 10/02/18 04/25/23 History Nitroglycerin Sl Tabs [Nitrostat] 0.4 mg SL Q5M PRN 10/02/18 04/25/23 History Atorvastatin [Lipitor] 40 mg PO HS@199910/19/21 04/25/23 History Apixaban [Eliquis] 5 mg PO BID@0800,1700 09/28/22 04/25/23 History Budesonide/Formoterol Fumarate 2 puff INHALATION RT-BID@0800,1700 09/28/22 04/25/23 History [Symbicort 80-4.5 Mcg Inhaler] HYDROcodone/APAP 7.5-325MG [Alta 1 tab PO BID PRN 09/28/22 04/25/23 History 7.5-325] Magnesium Oxide [Mag-Ox] 400 mg PO BID@0800,1700 09/28/22 04/25/23 History Meclizine [Antivert] 12.5 mg PO TID@0700,1200,1700 09/28/22 04/25/23 History Albuterol Sulfate [Proventil Hfa] 1 puff INHALATION RT-Q8H PRN 11/22/22 04/25/23 History Omeprazole 20 mg PO DAILY@0800 11/22/22 04/25/23 History Glimepiride [Amaryl] 2 mg PO BID@0800,1700 03/29/23 04/25/23 History Aspirin 81 mg PO DAILY@0730 04/25/23 04/25/23 History Cefepime [Maxipime] 2 gm IVPB BID@0900,2100 04/25/23 04/25/23 History Dapagliflozin Propanediol [Farxiga] 10 mg PO DAILY@0800 04/25/23 04/25/23 History Furosemide [Lasix] 40 mg PO BID@0700,1300 04/25/23 04/25/23 History Insulin Glargine-Yfgn [Semglee 40 units SQ DAILY@0800 04/25/23 04/25/23 History (Yfgn) Pen] Insulin Lispro See Protocol SQ QID@,,,04/25/23 04/25/23 History Ipratropium-Albuterol Nebulize 3 ml INHALATION RT-Q2H PRN 04/25/23 04/25/23 History [Duoneb 0.5 mg-3 mg/3 ml Soln] Ipratropium-Albuterol Nebulize 3 ml INHALATION RT-QID@07,12,17,04/25/23 04/25/23 History [Duoneb 0.5 mg-3 mg/3 ml Soln] Metoprolol Succinate (ER) [Toprol 50 mg PO DAILY@0800 04/25/23 04/25/23 History XL] Molnupiravir [Molnupiravir (Eua)] 800 mg PO BID@0700,1900 04/25/23 04/25/23 History Nystatin 100,000 Unit/ml Susp 500,000 unit PO QID@07,12,,04/25/23 04/25/23 History [Mycostatin Oral Susp] Potassium Chloride ER [K-Dur 20] 20 meq PO BID@0800,1700 04/25/23 04/25/23 History Allergies Allergy/AdvReac Type Severity Reaction Status Date / Time Sulfa (Sulfonamide Allergy Mild Rash/Hives Verified 04/25/23 16:17 Antibiotics) cephalexin [From Keflex] Allergy Unknown Verified 04/25/23 16:17 clopidogrel [From Plavix] Allergy Rash/Hives Verified 04/25/23 16:17 codeine Allergy Rash/Nausea Verified 04/25/23 16:17 & Vomiting Iodine and Iodide Containing Allergy Rash/Hives Verified 04/25/23 16:17 Produc levofloxacin [From Levaquin] Allergy urticaria/r Verified 04/25/23 16:17 belle shellfish derived [Shellfish] Allergy urticaria/r Verified 06/29/23 16:17 belle lisinopril AdvReac Angiodema Verified 04/25/23 16:17 of tongue oxycodone AdvReac Hallucinati Verified 04/25/23 16:17 ons solifenacin AdvReac Nausea & Verified 04/25/23 16:17 Vomiting Physical Exam Vitals: Vital Signs Temp Pulse Resp BP Pulse Ox 04/26/23 10:00 126 H 28 H 118/75 95 04/26/23 09:40 118 H 20 123/88 88 L 04/26/23 09:20 111 H 19 128/91 90 L 04/26/23 09:00 112 H 24 81/65 89 L 04/26/23 08:40 105 H 19 91/72 91 L 04/26/23 08:20 123 H 28 H 112/82 93 L 04/26/23 08:00 97.7 F 135 H 35 H 115/70 04/26/23 07:40 98 13 109/54 96 04/26/23 07:20 108 H 15 97/62 93 L 04/26/23 07:00 90 10 L 105/83 92 L 04/26/23 06:40 101 H 14 114/80 95 04/26/23 06:20 89 21 95/74 94 L 04/26/23 06:00 102 H 18 114/87 87 L 04/26/23 05:40 98 19 100/74 100 04/26/23 05:20 113 H 17 109/72 97 04/26/23 05:00 98 21 94/70 93 L 04/26/23 04:40 89 17 89/66 92 L 04/26/23 04:20 98 14 103/69 95 04/26/23 04:00 101 H 22 101/71 94 L 04/26/23 03:40 110 H 26 H 108/72 93 L 04/26/23 03:20 105 H 13 103/62 93 L 04/26/23 03:00 93 11 L 97/71 93 L 04/26/23 02:40 101 H 11 L 107/77 93 L 04/26/23 02:29 98 04/26/23 02:27 17 04/26/23 02:20 105 H 15 99/78 95 04/26/23 02:19 98 04/26/23 02:10 114 H 28 H 99/78 92 L 04/26/23 02:00 100 15 98/83 93 L 04/26/23 01:50 115 H 19 98/83 92 L 04/26/23 01:40 111 H 25 H 104/74 94 L 04/26/23 01:30 101 H 10 L 104/74 93 L 04/26/23 01:20 97 16 98/69 95 04/26/23 01:10 111 H 14 82/71 95 04/26/23 01:09 110 H 56 H 82/71 96 04/26/23 00:34 104 H 22 98 04/25/23 23:07 116 H 24 102/72 98 04/25/23 20:58 103 H 22 105/69 99 04/25/23 20:21 106 H 22 106/68 98 04/25/23 19:37 112 H 22 110/71 96 04/25/23 19:19 99 04/25/23 19:11 96 04/25/23 18:45 88 20 78/64 99 04/25/23 18:19 80 20 80/54 100 04/25/23 17:16 90 20 93/68 100 04/25/23 16:15 116 H 18 126/78 97 04/25/23 15:55 130 H 20 70/55 97 04/25/23 15:39 132 H 20 83/48 97 04/25/23 15:30 98.2 F 47 L 20 102/86 99 Intake and Output 04/25/23 04/26/23 04/26/23 22:59 06:59 14:59 Intake Total 528.353 Output Total 920 460 Balance -920 68.353 Intake: IV 100 Cefepime 2 gm In Sodium 100 Chloride 0.9% 100 ml @ 25 mls/hr IVPB Q12HR [facility] Rx #:[id number] Intake, IV Titration 158.353 Amount Norepinephrine 4 mg In 158.353 Sodium Chloride 0.9% 250 ml @ 0.03 MCG/KG/MIN 11. 406 mls/hr IV .[id number] ONE Rx#:[id number] Oral 270 Output: Urine 920 460 Other: Voiding Method Indwelling Catheter Indwelling Catheter Weight 99.79 kg 104.3 kg Patient is awake, comfortable, in no acute distress Examination of the heart S1 and S2 Examination of the lungs bilateral breath sounds are heard Abdomen is soft nontender obese Examination of lower extremities shows trace edema bilaterally [employer] exam grossly intact Results - Lab Results Most recent lab results Calcium 7.9 mg/dL (8.4-10.2) L 04/26/23 03:57 Magnesium 2.0 mg/dL (1.6-2.3) 04/25/23 16:04 04/26/23 03:57 04/26/23 03:57 Assessment and Plan Assessment: 1. Acute kidney injury, nonoliguric secondary to hemodynamic ATN secondary to low blood pressure and hemodynamic instability with A. fib with RVR as well. Possible cardiorenal component as well. Patient is currently being diuresed. 2. Chronic kidney disease NKF stage IIIB with baseline creatinine 1.3-1.5 mg/dL secondary to diabetic kidney disease 3. Pseudomonas pneumonia on recent admission on 04/06/2023 maintained on cefepime at home 4. Acute COPD exacerbation status post treatment and discharge about 10 days ago 5. Cardiomyopathy with ejection fraction 20-30%. Ischemic cardiomyopathy 6. Chronic systolic CHF with acute exacerbation 7. A. fib with RVR 8. PCR for COVID-19 positive on 04/19/2023 Plan: Continue with current dose of Lasix Monitor vancomycin levels closely and discontinue if not absolutely needed Continue to try to wean off pressors Repeat labs in a.m.
[2023-04-26] MEDS: SYMBICORT 80-4.5 MCG INHALER INHALATION SCH ×2 (12:06→19:42)
--- NOTE | 2023-04-26 12:14 | CONS ---
CONSULTATION CHIEF COMPLAINT: Atrial fibrillation with rapid ventricular rate. HISTORY OF PRESENT ILLNESS: This is a 77-year-old gentleman with history of coronary artery disease, status post bypass surgery with LINDSEY to LAD, atrial fibrillation, chronic systolic heart failure, hypertension, diabetes, dyslipidemia, and COPD, who is admitted to hospital yesterday with symptoms of weakness, fatigue, shortness of breath, and atrial fibrillation with rapid ventricular rate. The patient was in the hospital earlier in the month. He has history of Pseudomonas and is currently on cefepime. He was found to be in atrial fibrillation with rapid ventricular rate and also had hypotension. He was started on Cardizem and subsequently it was stopped and he is transferred over to us. He is currently receiving antibiotics and the COPD exacerbation is being managed by Dr. Osuna. The patient had lots of questions about his condition and stated them at length. He is on Eliquis for anticoagulation and received Toprol-XL 50 mg daily this morning for rate control. He apparently missed his beta-brigido yesterday, his heart rate is varying between 110 to 130. He had an echocardiogram done on 03/29 that revealed an ejection fraction of 30% to 35% and this is his 3rd hospitalization this month. PAST MEDICAL HISTORY: Significant for coronary artery disease, status post CABG, [id number] diabetes, COPD, hypertension, dyslipidemia, and ischemic cardiomyopathy. MEDICATIONS: Medications at home include; 1. Amaryl. 2. Lasix. 3. Potassium. 4. Eliquis. 5. Toprol-XL 50 daily. 6. Synthroid. 7. Lipitor. 8. Aspirin. 9. Farxiga. ALLERGIES: He has multiple drug allergies, they are charted and I reviewed. REVIEW OF SYSTEMS: 14 out of 14 review of systems has been performed. Pertinents are as documented. PHYSICAL EXAMINATION: VITAL SIGNS: Heart rate is 105 beats per minute. Blood pressure is 91/72, respiratory rate is 18. CHEST: Reveals good air entry bilaterally with occasional rhonchi. HEART: Reveals first and second heart sounds. No gallop. Has a systolic murmur at the left lower sternal border. ABDOMEN: Soft. EXTREMITIES: Did not reveal any edema. Peripheral pulses are felt. LABORATORY DATA: Labs show that the hemoglobin is 12. White cell count is 8, platelet count is 78, potassium is 4.7, BUN 67, creatinine is 2.1. Troponins are elevated at 0.3, 0.3, and 0.2. EKG showed atrial fibrillation with rapid ventricular rate with right bundle branch block. ASSESSMENT: 1. Persistent atrial fibrillation with rapid ventricular rate. 2. Pneumonia. 3. Coronary artery disease, status post coronary artery bypass graft. 4. Ischemic cardiomyopathy. 5. Hypotension. 6. Elevated troponin. PLAN: The patient received Toprol-XL. I will monitor heart rate at this time. If necessary, I will add amiodarone for rate control. We really cannot give him any more beta blockers as he is hypotensive. We will taper and stop the Levophed as tolerated. Elevated troponin is secondary to renal failure. MMODL / IJN: [id number] /
--- NOTE | 2023-04-26 12:18 | P.CNPUL ---
History of Present Illness Consult date: 04/26/23 Requesting physician: Karoline Mg Reason for consult: dyspnea, COPD, other (ICU management) Chief complaint: shortness of breath History of present illness: this is a 77-year-old white male, very familiar to my service, I have seen this patient many times in the past for history of chronic obstructive pulmonary disease, and recurrent diastolic congestive heart failure/chronic. Patient was last here last month, and he was treated for Pseudomonas pneumonia. Patient was discharged to rehab, and has been in rehab recently until yesterday patient was complaining of weakness, shortness of breath, he was sent to [facility] initially, and he was found in atrial fibrillation with RVR. Patient was also noted to be hypotensive. Patient has been receiving antibiotics in the form of redness cefepime via PICC line in his left upper extremity. At [facility] the patient was given Cardizem, and he was noted to be hypotensive, hence arrangements were made for the patient to transfer to [facility]. Patient was given fluid boluses while in the ER, and he developed some component of interstitial edema, at the same time the patient was placed on low-dose norepinephrine, admitted to the ICU, and this consult was initiated. Patient is on cefepime is also on vancomycin, he is yet to be seen by nephrology and infectious disease on consultation, patient is also on eliquis chronically. During my evaluation, the patient was on room air, he does have intermittent cough and wheezing.WC count is 8.1 hemoglobin is 12 electrolytes are normal BUN is 57 creatinine 2.15.baseline creatinine is in the range of 1.5 from the last admission.troponins were also noted to be elevated 0.33 follow-up troponin was 0.234.chest x-ray showed cardiomegaly, and mild interstitial infiltrates/edema. Review of Systems CONSTITUTIONAL: Denies any recent significant weight loss or weight gain. EYES: Denies change in vision. EARS, NOSE, MOUTH, THROAT: Denies headaches, denies sore throat. CARDIOVASCULAR:as noted in HPI. RESPIRATORY: as noted in HPI. GASTROINTESTINAL: Denies change in appetite, denies abdominal pain GENITOURINARY: Denies hematuria, denies infections. MUSKULOSKELETAL: Positive for lower extremity edema. INTEGUMENTARY: Denies rash, denies eczema. NEUROLOGICAL: Denies recent memory loss, no recent seizure activity. PSYCHIATRIC: Denies anxiety, denies depression. HEMATOLOGIC/LYMPHATIC: Denies anemia, denies enlarged lymph nodes. Past Medical History Past Medical History: Atrial Fibrillation, Coronary Artery Disease (CAD), Heart Failure, COPD, CVA/TIA, Diabetes Mellitus, Hypertension, Myocardial Infarction (NH) Additional Past Medical History / Comment(s): left knee cap broken, pancreatitis, /gallstones, Patient reports having stroke like symptoms after injection in knee, Last Myocardial Infarction Date:: 2017 History of Any Multi-Drug Resistant Organisms: MRSA Date of last positivie culture/infection: 10/01/22 MDRO Source:: Sputum Past Surgical History: Cholecystectomy, Coronary Bypass/CABG, Heart Catheterization With Stent, Hernia Repair, Orthopedic Surgery Additional Past Surgical History / Comment(s): lt knee replacement(total of 4 sx), colonoscopy, Left knee cap removal with antibiotic spacers placed, Past Anesthesia/Blood Transfusion Reactions: No Reported Reaction Date of Last Stent Placement:: 10/2015 Past Psychological History: No Psychological Hx Reported Additional Psychological History / Comment(s): Pt resides with his spouse. He uses a walker to ambulate. Smoking Status: Former smoker Past Alcohol Use History: Occasional Additional Past Alcohol Use History / Comment(s): Pt started smoking as teen and quit 1983 smoked 2 ppd. Pt usually has one drink a night. Past Drug Use History: None Reported - Past Family History Father Family Medical History: Diabetes Mellitus Mother Family Medical History: CVA/TIA, Hypertension Medications and Allergies Home Medications Medication Instructions Recorded Confirmed Type allopurinoL [Zyloprim] 300 mg PO DAILY@0800 08/07/17 04/25/23 History Gabapentin 1,200 mg PO TID@1400,1800,2200 10/02/18 04/25/23 History Levothyroxine Sodium [Synthroid] 112 mcg PO DAILY@0800 10/02/18 04/25/23 History Levothyroxine Sodium [Synthroid] 125 mcg PO DAILY@0800 10/02/18 04/25/23 History Nitroglycerin Sl Tabs [Nitrostat] 0.4 mg SL Q5M PRN 10/02/18 04/25/23 History Atorvastatin [Lipitor] 40 mg PO HS@199910/19/21 04/25/23 History Apixaban [Eliquis] 5 mg PO BID@0800,1700 09/28/22 04/25/23 History Budesonide/Formoterol Fumarate 2 puff INHALATION RT-BID@0800,1700 09/28/22 04/25/23 History [Symbicort 80-4.5 Mcg Inhaler] HYDROcodone/APAP 7.5-325MG [[place] 1 tab PO BID PRN 09/28/22 04/25/23 History 7.5-325] Magnesium Oxide [Mag-Ox] 400 mg PO BID@0800,1700 09/28/22 04/25/23 History Meclizine [Antivert] 12.5 mg PO TID@0700,1200,1700 09/28/22 04/25/23 History Albuterol Sulfate [Proventil Hfa] 1 puff INHALATION RT-Q8H PRN 11/22/22 04/25/23 History Omeprazole 20 mg PO DAILY@0800 11/22/22 04/25/23 History Glimepiride [Amaryl] 2 mg PO BID@0800,1700 03/29/23 04/25/23 History Aspirin 81 mg PO DAILY@0730 04/25/23 04/25/23 History Cefepime [Maxipime] 2 gm IVPB BID@0900,2100 04/25/23 04/25/23 History Dapagliflozin Propanediol [Farxiga] 10 mg PO DAILY@0800 04/25/23 04/25/23 His tory Furosemide [Lasix] 40 mg PO BID@0700,1300 04/25/23 04/25/23 History Insulin Glargine-Yfgn [Semglee 40 units SQ DAILY@0800 04/25/23 04/25/23 History (Yfgn) Pen] Insulin Lispro See Protocol SQ QID@07,12,,04/25/23 04/25/23 History Ipratropium-Albuterol Nebulize 3 ml INHALATION RT-Q2H PRN 04/25/23 04/25/23 History [Duoneb 0.5 mg-3 mg/3 ml Soln] Ipratropium-Albuterol Nebulize 3 ml INHALATION RT-QID@07,12,17,21 04/25/23 04/25/23 History [Duoneb 0.5 mg-3 mg/3 ml Soln] Metoprolol Succinate (ER) [Toprol 50 mg PO DAILY@0800 04/25/23 04/25/23 History XL] Molnupiravir [Molnupiravir (Eua)] 800 mg PO BID@0700,1900 04/25/23 04/25/23 History Nystatin 100,000 Unit/ml Susp 500,000 unit PO QID@07,12,17,22 04/25/23 04/25/23 History [Mycostatin Oral Susp] Potassium Chloride ER [K-Dur 20] 20 meq PO BID@0800,1700 04/25/23 04/25/23 History Allergies Allergy/AdvReac Type Severity Reaction Status Date / Time Sulfa (Sulfonamide Allergy Mild Rash/Hives Verified 04/25/23 16:17 Antibiotics) cephalexin [From Keflex] Allergy Unknown Verified 04/25/23 16:17 clopidogrel [From Plavix] Allergy Rash/Hives Verified 04/25/23 16:17 codeine Allergy Rash/Nausea Verified 04/25/23 16:17 & Vomiting Iodine and Iodide Containing Allergy Rash/Hives Verified 04/25/23 16:17 Produc levofloxacin [From Levaquin] Allergy urticaria/r Verified 04/25/23 16:17 belle shellfish derived [Shellfish] Allergy urticaria/r Verified 04/25/23 16:17 belle lisinopril AdvReac Angiodema Verified 04/25/23 16:17 of tongue oxycodone AdvReac Hallucinati Verified 04/25/23 16:17 ons solifenacin AdvReac Nausea & Verified 04/25/23 16:17 Vomiting Physical Exam Vitals: Vital Signs Temp Pulse Resp BP Pulse Ox 04/26/23 11:00 113 H 24 121/72 95 04/26/23 10:40 105 H 31 H 98/82 96 04/26/23 10:20 121 H 15 96/85 90 L 04/26/23 10:00 126 H 28 H 118/75 95 04/26/23 09:40 118 H 20 123/88 88 L 04/26/23 09:20 111 H 19 128/91 90 L 04/26/23 09:00 112 H 24 81/65 89 L 04/26/23 08:40 105 H 19 91/72 91 L 04/26/23 08:20 123 H 28 H 112/82 93 L 04/26/23 08:00 97.7 F 135 H 35 H 115/70 04/26/23 07:40 98 13 109/54 96 04/26/23 07:20 108 H 15 97/62 93 L 04/26/23 07:00 90 10 L 105/83 92 L 04/26/23 06:40 101 H 14 114/80 95 04/26/23 06:20 89 21 95/74 94 L 04/26/23 06:00 102 H 18 114/87 87 L 04/26/23 05:40 98 19 100/74 100 04/26/23 05:20 113 H 17 109/72 97 04/26/23 05:00 98 21 94/70 93 L 04/26/23 04:40 89 17 89/66 92 L 04/26/23 04:20 98 14 103/69 95 04/26/23 04:00 101 H 22 101/71 94 L 04/26/23 03:40 110 H 26 H 108/72 93 L 04/26/23 03:20 105 H 13 103/62 93 L 04/26/23 03:00 93 11 L 97/71 93 L 04/26/23 02:40 101 H 11 L 107/77 93 L 04/26/23 02:29 98 04/26/23 02:27 17 04/26/23 02:20 105 H 15 99/78 95 04/26/23 02:19 98 04/26/23 02:10 114 H 28 H 99/78 92 L 04/26/23 02:00 100 15 98/83 93 L 04/26/23 01:50 115 H 19 98/83 92 L 04/26/23 01:40 111 H 25 H 104/74 94 L 04/26/23 01:30 101 H 10 L 104/74 93 L 04/26/23 01:20 97 16 98/69 95 04/26/23 01:10 111 H 14 82/71 95 04/26/23 01:09 110 H 56 H 82/71 96 04/26/23 00:34 104 H 22 98 04/25/23 23:07 116 H 24 102/72 98 04/25/23 20:58 103 H 22 105/69 99 06/29/23 20:21 106 H 22 106/68 98 04/25/23 19:37 112 H 22 110/71 96 04/25/23 19:19 99 04/25/23 19:11 96 04/25/23 18:45 88 20 78/64 99 04/25/23 18:19 80 20 80/54 100 04/25/23 17:16 90 20 93/68 100 04/25/23 16:15 116 H 18 126/78 97 04/25/23 15:55 130 H 20 70/55 97 04/25/23 15:39 132 H 20 83/48 97 04/25/23 15:30 98.2 F 47 L 20 102/86 99 Intake and Output 04/25/23 04/26/23 04/26/23 22:59 06:59 14:59 Intake Total 528.353 Output Total 920 460 Balance -920 68.353 Intake: IV 100 Cefepime 2 gm In Sodium 100 Chloride 0.9% 100 ml @ 25 mls/hr IVPB Q12HR [facility] Rx #:[id number] Intake, IV Titration 158.353 Amount Norepinephrine 4 mg In 158.353 Sodium Chloride 0.9% 250 ml @ 0.03 MCG/KG/MIN 11. 406 mls/hr IV .[id number] Rx#:[id number] Oral 270 Output: Urine 920 460 Other: Voiding Method Indwelling Catheter Indwelling Catheter Weight 99.79 kg 104.3 kg GENERAL EXAM: Alert, pleasant 77-year-old male, on room air,not in any distress. HEAD: Normocephalic. EYES: Normal reaction of pupils, equal size. NOSE: Clear with pink turbinates. THROAT: No erythema or exudates. NECK: No masses, no JVD. CHEST: No chest wall deformity. LUNGS: scattered rhonchi noted bilaterally more so on forced expiratory maneuver. CVS:irregular irregular rhythm. S1 and S2 normal with no audible murmur, regular rhythm. ABDOMEN: No hepatosplenomegaly, normal bowel sounds, no guarding or rigidity. SKIN: No rashes CENTRAL NERVOUS SYSTEM: alert and oriented 3, no gross focal deficit psychiatric: Normal mood affect and normal mental status examination. EXTREMITIES: There is 1-2+ peripheral edema. No clubbing, no cyanosis. Peripheral pulses are intact. Results - Laboratory Findings CBC and BMP: 04/26/23 03:57 04/26/23 03:57 PT/INR, D-dimer PT 11.5 sec (9.0-12.0) 04/25/23 16:04 INR 1.1 (<1.2) 04/25/23 16:04 Abnormal lab findings: Abnormal Labs 04/25/23 04/25/23 04/25/23 15:58 16:04 16:04 RBC 3.82 L Hgb 12.1 L D Hct 37.2 L MCV Plt Count 79 L Lymphocytes # 0.3 L Sodium 133 L Potassium 5.2 H BUN 54 H Creatinine 2.21 H Glucose 248 H POC Glucose (mg/dL) Plasma Lactic Acid Gideon 2.6 H* Calcium 8.0 L Total Bilirubin 1.8 H Troponin I Total Protein 5.0 L Albumin 2.7 L Urine Protein Urine Glucose (UA) Urine Blood Ur Leukocyte Esterase Urine Bacteria Urine Mucus 04/25/23 04/25/23 04/26/23 16:04 20:55 00:39 RBC Hgb Hct MCV Plt Count Lymphocytes # Sodium Potassium BUN Creatinine Glucose POC Glucose (mg/dL) 255 H Plasma Lactic Acid Gideon Calcium Total Bilirubin Troponin I 0.322 H* 0.331 H* Total Protein Albumin Urine Protein Urine Glucose (UA) Urine Blood Ur Leukocyte Esterase Urine Bacteria Urine Mucus 04/26/23 04/26/23 04/26/23 00:54 03:57 03:57 RBC 3.70 L Hgb 12.0 L Hct 37.1 L MCV 100.4 H Plt Count 78 L Lymphocytes # 0.3 L Sodium 134 L Potassium BUN 57 H Creatinine 2.15 H Glucose 178 H POC Glucose (mg/dL) Plasma Lactic Acid Gideon Calcium 7.9 L Total Bilirubin Troponin I 0.234 H* Total Protein Albumin Urine Protein Urine Glucose (UA) Urine Blood Ur Leukocyte Esterase Urine Bacteria Urine Mucus 04/26/23 09:25 RBC Hgb Hct MCV Plt Count Lymphocytes # Sodium Potassium BUN Creatinine Glucose POC Glucose (mg/dL) Plasma Lactic Acid Gideon Calcium Total Bilirubin Troponin I Total Protein Albumin Urine Protein 1+ H Urine Glucose (UA) 3+ H Urine Blood Moderate H Ur Leukocyte Esterase Trace H Urine Bacteria Rare H Urine Mucus Rare H - Diagnostic Findings Chest x-ray: image reviewed (as noted in HPI) Assessment and Plan Assessment: impression: Chronic atrial fibrillation, patient presented with atrial fibrillation with RVR. Acute exacerbation of chronic systolic congestive heart failure, ejection fraction 30-35% on 03/29/2023 Acute exacerbation of COPD recent history of pneumonia secondary to pseudomonas aeruginosa, on cefepime. The PICC line. Moderate severe aortic stenosis with pulmonary hypertension Chronic kidney disease stage III Former smoker History of coronary artery disease and previous CABG and stenting dyslipidemia HypothyroidismPoor overall functional performance based on the above-mentioned multiple comorbidities recommendation: Continue to monitor in the ICU Continue bronchodilators. Continue Eliquis. continue antibiotics including cefepime and vancomycin. continue metoprolol Resume home meds Continue diuretics Lasix 40 mg IV push twice a day continue GI and DVT prophylaxis Check cultures including blood cultures We will continue to follow. Time with Patient: Greater than 30
[2023-04-26] MEDS: NOREPINEPHRINE 4 MG in SODIUM CHLORIDE 0.9% 250 ML IV ONE (12:46)
--- NOTE | 2023-04-26 13:51 | CDI ---
Documentation Clarification Form Date: From: Ivone Avila Phone: [phone] Admit Date: 04/25/2023 06:01:00 PM Patient Name: Patrick Banuelos Visit Number: [id number] Discharge Date: ATTENTION: The Clinical Documentation Specialists (CDI) and [facility] Coding Staff appreciate your assistance in clarifying documentation. Please respond to the clarification below the line at the bottom and electronically sign. The CDI & [facility] Coding staff will review the response and follow-up if needed. Please note: Queries are made part of the Legal Health Record. If you have any questions, please contact the author of this message via ITS. Dr. Karoline Mg Your patient has elevated troponin levels documented. Please clarify if there is an additional diagnosis and/or clinical significance related to this value. Patient history/risk factors: "7-year-old male who presents emergency Department as a transfer from the [facility] for weakness, shortness of breath, A. fib with RVR. Patient has been having his weakness and shortness of breath since discharge from our facility earlier this month after being diagnosed with pneumonia " - Per General Medical Problem note on 04/25 Clinical indicators: "elevated troponin likely secondary to A. fib with RVR" "no obvious acute ST or T wave abnormalities to suggest myocardial ischemia or injury, except for some T-wave inversions in lateral precordial leads with very subtle ST segment depressions" - Per General Medical Problem note on 04/25 Treatment: Per General Medical Problem note on 04/25 "received a bolus of Cardizem at the outside facility, and became somewhat hypotensive and Cardizem was stopped" " We will fluid hydrate the patient and reevaluate" "we will start the patient on low-dose norepinephrine was peripheral line" Is there an additional diagnosis and/or clinical significance related to the above lab result/information: [ ] Type 2 OH due to (specify cause ____) [ ] Non-ischemic myocardial injury [ xxx ] No additional diagnosis/Not clinically significant [ ] Other, please specify [ ] Unable to determine MTDD
[2023-04-26] MEDS: GABAPENTIN 400 MG CAP PO SCH ×3 (14:20→20:47)
--- NOTE | 2023-04-26 14:43 | P.HPIM ---
History of Present Illness Patient is a 69-year-old male came in with the complaints of weakness of his of breath. Found to be in congestive heart failure exacerbation. Patient was started on IV Lasix. Patient the was receiving IV antibiotics as an outpatient cefepime for pseudomonas pneumonia recently. Patient was also diagnosed with COVID-19. Patient Has acute renal failure with creatinine of around 2.5 baseline is around 1.3. Patient does have chronic kidney disease stage III does have history of can start failure chronic systolic dysfunction with the EF of around 30-35%. Patient does have severe pulmonary hypertension and severe stenosis patient is hyponatremic as well with mildly elevated troponins. Patient is presently on 2 L of oxygen was on 4 L of oxygen. Patient does have history of atrial fibrillation presently in A. fib with heart on 129. REVIEW OF SYSTEMS: As mentioned in HPI PHYSICAL EXAMINATION: GENERAL: The patient is alert and oriented x3, not in any acute distress. Well developed, well nourished. HEENT: Pupils are round and equally reacting to light. EOMI. No scleral icterus. No conjunctival pallor. Normocephalic, atraumatic. No pharyngeal erythema. No thyromegaly. CARDIOVASCULAR: S1 and S2 present. No murmurs, rubs, or gallops. PULMONARY: Bilateral rhonchi ABDOMEN: Soft, nontender, nondistended, normoactive bowel sounds. No palpable organomegaly. MUSCULOSKELETAL: No joint swelling or deformity. EXTREMITIES: No cyanosis, clubbing, or pedal edema. NEUROLOGICAL: Gross neurological examination did not reveal any focal deficits. SKIN: No rashes. 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 -Coronary artery disease with CABG in the past next and-atrial fibrillation paroxysmal: Continue with anticoagulation and rate control medications, was in rapid ventricular rate on admission -Hypothyroidism -COPD with the possible mild acute exacerbation -COVID-19 pneumonia DVT prophylaxis: On anticoagulation and Past Medical History Past Medical History: Atrial Fibrillation, Coronary Artery Disease (CAD), Heart Failure, COPD, CVA/TIA, Diabetes Mellitus, Hypertension, Myocardial Infarction (DC) Additional Past Medical History / Comment(s): left knee cap broken, pancreatitis, /gallstones, Patient reports having stroke like symptoms after injection in knee, Last Myocardial Infarction Date:: 2017 History of Any Multi-Drug Resistant Organisms: MRSA Date of last positivie culture/infection: 10/01/22 MDRO Source:: Sputum Past Surgical History: Cholecystectomy, Coronary Bypass/CABG, Heart Cathete rization With Stent, Hernia Repair, Orthopedic Surgery Additional Past Surgical History / Comment(s): lt knee replacement(total of 4 sx), colonoscopy, Left knee cap removal with antibiotic spacers placed, Past Anesthesia/Blood Transfusion Reactions: No Reported Reaction Date of Last Stent Placement:: 10/2015 Past Psychological History: No Psychological Hx Reported Additional Psychological History / Comment(s): Pt resides with his spouse. He uses a walker to ambulate. Smoking Status: Former smoker Past Alcohol Use History: Occasional Additional Past Alcohol Use History / Comment(s): Pt started smoking as teen and quit 1983 smoked 2 ppd. Pt usually has one drink a night. Past Drug Use History: None Reported - Past Family History Father Family Medical History: Diabetes Mellitus Mother Family Medical History: CVA/TIA, Hypertension Medications and Allergies Home Medications Medication Instructions Recorded Confirmed Type allopurinoL [Zyloprim] 300 mg PO DAILY@0800 08/07/17 04/25/23 History Gabapentin 1,200 mg PO TID@1400,1800,2200 10/02/18 04/25/23 History Levothyroxine Sodium [Synthroid] 112 mcg PO DAILY@0800 10/02/18 04/25/23 History Levothyroxine Sodium [Synthroid] 125 mcg PO DAILY@0800 10/02/18 04/25/23 History Nitroglycerin Sl Tabs [Nitrostat] 0.4 mg SL Q5M PRN 10/02/18 04/25/23 History Atorvastatin [Lipitor] 40 mg PO HS@199910/19/21 04/25/23 History Apixaban [Eliquis] 5 mg PO BID@0800,1700 09/28/22 04/25/23 History Budesonide/Formoterol Fumarate 2 puff INHALATION RT-BID@0800,1700 09/28/2204/25 History [Symbicort 80-4.5 Mcg Inhaler] HYDROcodone/APAP 7.5-325MG [[place] 1 tab PO BID PRN 09/28/22 04/25/23 History 7.5-325] Magnesium Oxide [Mag-Ox] 400 mg PO BID@0800,1700 09/28/22 04/25/23 History Meclizine [Antivert] 12.5 mg PO TID@0700,1200,1700 09/28/22 04/25/23 History Albuterol Sulfate [Proventil Hfa] 1 puff INHALATION RT-Q8H PRN 11/22/22 04/25/23 History Omeprazole 20 mg PO DAILY@0800 11/22/22 04/25/23 History Glimepiride [Amaryl] 2 mg PO BID@0800,1700 03/29/23 04/25/23 History Aspirin 81 mg PO DAILY@0730 04/25/23 04/25/23 History Cefepime [Maxipime] 2 gm IVPB BID@0900,2100 04/25/23 04/25/23 History Dapagliflozin Propanediol [Farxiga] 10 mg PO DAILY@0800 04/25/23 04/25/23 History Furosemide [Lasix] 40 mg PO BID@0700,1300 04/25/23 04/25/23 History Insulin Glargine-Yfgn [Semglee 40 units SQ DAILY@0800 04/25/23 04/25/23 History (Yfgn) Pen] Insulin Lispro See Protocol SQ QID@07,,,04/25/23 04/25/23 History Ipratropium-Albuterol Nebulize 3 ml INHALATION RT-Q2H PRN 04/25/23 04/25/23 History [Duoneb 0.5 mg-3 mg/3 ml Soln] Ipratropium-Albuterol Nebulize 3 ml INHALATION RT-QID@07,12,17,04/25/23 04/25/23 History [Duoneb 0.5 mg-3 mg/3 ml Soln] Metoprolol Succinate (ER) [Toprol 50 mg PO DAILY@0800 04/25/23 04/25/23 History XL] Molnupiravir [Molnupiravir (Eua)] 800 mg PO BID@0700,1900 04/25/23 04/25/23 History Nystatin 100,000 Unit/ml Susp 500,000 unit PO QID@07,12,17,22 04/25/23 04/25/23 History [Mycostatin Oral Susp] Potassium Chloride ER [K-Dur 20] 20 meq PO BID@0800,1700 04/25/23 04/25/23 Hi story Allergies Allergy/AdvReac Type Severity Reaction Status Date / Time Sulfa (Sulfonamide Allergy Mild Rash/Hives Verified 04/25/23 16:17 Antibiotics) cephalexin [From Keflex] Allergy Unknown Verified 04/25/23 16:17 clopidogrel [From Plavix] Allergy Rash/Hives Verified 04/25/23 16:17 codeine Allergy Rash/Nausea Verified 04/25/23 16:17 & Vomiting Iodine and Iodide Containing Allergy Rash/Hives Verified 04/25/23 16:17 Produc levofloxacin [From Levaquin] Allergy urticaria/r Verified 04/25/23 16:17 belle shellfish derived [Shellfish] Allergy urticaria/r Verified 04/25/23 16:17 belle lisinopril AdvReac Angiodema Verified 04/25/23 16:17 of tongue oxycodone AdvReac Hallucinati Verified 04/25/23 16:17 ons solifenacin AdvReac Nausea & Verified 04/25/23 16:17 Vomiting Physical Exam Vitals: Vital Signs Temp Pulse Resp BP Pulse Ox 04/26/23 14:00 129 H 13 110/84 91 L 04/26/23 13:40 128 H 14 114/89 90 L 04/26/23 13:20 125 H 19 97/42 90 L 04/26/23 13:00 137 H 23 99/76 90 L 04/26/23 12:40 122 H 16 130/76 93 L 04/26/23 12:20 125 H 12 108/82 95 04/26/23 12:00 97.4 F L 137 H 28 H 104/73 94 L 04/26/23 11:40 116 H 16 109/87 96 04/26/23 11:20 122 H 35 H 111/66 95 04/26/23 11:00 113 H 24 121/72 95 04/26/23 10:40 105 H 31 H 98/82 96 04/26/23 10:20 121 H 15 96/85 90 L 04/26/23 10:00 126 H 28 H 118/75 95 04/26/23 09:40 118 H 20 123/88 88 L 04/26/23 09:20 111 H 19 128/91 90 L 04/26/23 09:00 112 H 24 81/65 89 L 04/26/23 08:40 105 H 19 91/72 91 L 04/26/23 08:20 123 H 28 H 112/82 93 L 04/26/23 08:00 97.7 F 135 H 35 H 115/70 04/26/23 07:40 98 13 109/54 96 04/26/23 07:20 108 H 15 97/62 93 L 04/26/23 07:00 90 10 L 105/83 92 L 04/26/23 06:40 101 H 14 114/80 95 04/26/23 06:20 89 21 95/74 94 L 04/26/23 06:00 102 H 18 114/87 87 L 04/26/23 05:40 98 19 100/74 100 04/26/23 05:20 113 H 17 109/72 97 04/26/23 05:00 98 21 94/70 93 L 04/26/23 04:40 89 17 89/66 92 L 04/26/23 04:20 98 14 103/69 95 04/26/23 04:00 101 H 22 101/71 94 L 04/26/23 03:40 110 H 26 H 108/72 93 L 04/26/23 03:20 105 H 13 103/62 93 L 04/26/23 03:00 93 11 L 97/71 93 L 04/26/23 02:40 101 H 11 L 107/77 93 L 04/26/23 02:29 98 04/26/23 02:27 17 04/26/23 02:20 105 H 15 99/78 95 04/26/23 02:19 98 04/26/23 02:10 114 H 28 H 99/78 92 L 04/26/23 02:00 100 15 98/83 93 L 04/26/23 01:50 115 H 19 98/83 92 L 04/26/23 01:40 111 H 25 H 104/74 94 L 04/26/23 01:30 101 H 10 L 104/74 93 L 04/26/23 01:20 97 16 98/69 95 04/26/23 01:10 111 H 14 82/71 95 04/26/23 01:09 110 H 56 H 82/71 96 04/26/23 00:34 104 H 22 98 04/25/23 23:07 116 H 24 102/72 98 04/25/23 20:58 103 H 22 105/69 99 04/25/23 20:21 106 H 22 106/68 98 04/25/23 19:37 112 H 22 110/71 96 04/25/23 19:19 99 04/25/23 19:11 96 04/25/23 18:45 88 20 78/64 99 04/25/23 18:19 80 20 80/54 100 04/25/23 17:16 90 20 93/68 100 04/25/23 16:15 116 H 18 126/78 97 04/25/23 15:55 130 H 20 70/55 97 04/25/23 15:39 132 H 20 83/48 97 04/25/23 15:30 98.2 F 47 L 20 102/86 99 Intake and Output 04/25/23 04/26/23 04/26/23 22:59 06:59 14:59 Intake Total 1127.918 Output Total 920 1260 Balance -920 -132.082 Intake: IV 100 Cefepime 2 gm In Sodium 100 Chloride 0.9% 100 ml @ 25 mls/hr IVPB Q12HR [facility] Rx #:[id number] Intake, IV Titration 217.918 Amount Norepinephrine 4 mg In 217.918 Sodium Chloride 0.9% 250 ml @ 0.03 MCG/KG/MIN 11. 406 mls/hr IV .[id number] Rx#:[id number] Oral 810 Output: Urine 920 1260 Other: Voiding Method Indwelling Catheter Indwelling Catheter # Bowel Movements 1 Weight 99.79 kg 104.3 kg Results CBC & Chem 7: 04/26/23 03:57 04/26/23 03:57 Labs: Abnormal Lab Results - Last 24 Hours (Table) 04/25/23 04/25/23 04/25/23 Range/Units 15:58 16:04 16:04 RBC 3.82 L (4.30-5.90) m/uL Hgb 12.1 L D (13.0-17.5) gm/dL Hct 37.2 L (39.0-53.0) % MCV (80.0-100.0) fL Plt Count 79 L (150-450) k/uL Lymphocytes # 0.3 L (1.0-4.8) k/uL Sodium 133 L (137-145) mmol/L Potassium 5.2 H (3.5-5.1) mmol/L BUN 54 H (9-20) mg/dL Creatinine 2.21 H (0.66-1.25) mg/dL Glucose 248 H (74-99) mg/dL POC Glucose (mg/dL) (70-110) mg/dL Plasma Lactic Acid Gideon 2.6 H* (0.7-2.0) mmol/L Calcium 8.0 L (8.4-10.2) mg/dL Total Bilirubin 1.8 H (0.2-1.3) mg/dL Troponin I (0.000-0.034) ng/mL Total Protein 5.0 L (6.3-8.2) g/dL Albumin 2.7 L (3.5-5.0) g/dL Urine Protein (Negative) Urine Glucose (UA) (Negative) Urine Blood (Negative) Ur Leukocyte Esterase (Negative) Urine Bacteria (None) /hpf Urine Mucus (None) /hpf 04/25/23 04/25/23 04/26/23 Range/Units 16:04 20:55 00:39 RBC (4.30-5.90) m/uL Hgb (13.0-17.5) gm/dL Hct (39.0-53.0) % MCV (80.0-100.0) fL Plt Count (150-450) k/uL Lymphocytes # (1.0-4.8) k/uL Sodium (137-145) mmol/L Potassium (3.5-5.1) mmol/L BUN (9-20) mg/dL Creatinine (0.66-1.25) mg/dL Glucose (74-99) mg/dL POC Glucose (mg/dL) 255 H (70-110) mg/dL Plasma Lactic Acid Gideon (0.7-2.0) mmol/L Calcium (8.4-10.2) mg/dL Total Bilirubin (0.2-1.3) mg/dL Troponin I 0.322 H* 0.331 H* (0.000-0.034) ng/mL Total Protein (6.3-8.2) g/dL Albumin (3.5-5.0) g/dL Urine Protein (Negative) Urine Glucose (UA) (Negative) Urine Blood (Negative) Ur Leukocyte Esterase (Negative) Urine Bacteria (None) /hpf Urine Mucus (None) /hpf 04/26/23 04/26/23 04/26/23 Range/Units 00:54 03:57 03:57 RBC 3.70 L (4.30-5.90) m/uL Hgb 12.0 L (13.0-17.5) gm/dL Hct 37.1 L (39.0-53.0) % MCV 100.4 H (80.0-100.0) fL Plt Count 78 L (150-450) k/uL Lymphocytes # 0.3 L (1.0-4.8) k/uL Sodium 134 L (137-145) mmol/L Potassium (3.5-5.1) mmol/L BUN 57 H (9-20) mg/dL Creatinine 2.15 H (0.66-1.25) mg/dL Glucose 178 H (74-99) mg/dL POC Glucose (mg/dL) (70-110) mg/dL Plasma Lactic Acid Gideon (0.7-2.0) mmol/L Calcium 7.9 L (8.4-10.2) mg/dL Total Bilirubin (0.2-1.3) mg/dL Troponin I 0.234 H* (0.000-0.034) ng/mL Total Protein (6.3-8.2) g/dL Albumin (3.5-5.0) g/dL Urine Protein (Negative) Urine Glucose (UA) (Negative) Urine Blood (Negative) Ur Leukocyte Esterase (Negative) Urine Bacteria (None) /hpf Urine Mucus (None) /hpf 04/26/23 Range/Units 09:25 RBC (4.30-5.90) m/uL Hgb (13.0-17.5) gm/dL Hct (39.0-53.0) % MCV (80.0-100.0) fL Plt Count (150-450) k/uL Lymphocytes # (1.0-4.8) k/uL Sodium (137-145) mmol/L Potassium (3.5-5.1) mmol/L BUN (9-20) mg/dL Creatinine (0.66-1.25) mg/dL Glucose (74-99) mg/dL POC Glucose (mg/dL) (70-110) mg/dL Plasma Lactic Acid Gideon (0.7-2.0) mmol/L Calcium (8.4-10.2) mg/dL Total Bilirubin (0.2-1.3) mg/dL Troponin I (0.000-0.034) ng/mL Total Protein (6.3-8.2) g/dL Albumin (3.5-5.0) g/dL Urine Protein 1+ H (Negative) Urine Glucose (UA) 3+ H (Negative) Urine Blood Moderate H (Negative) Ur Leukocyte Esterase Trace H (Negative) Urine Bacteria Rare H (None) /hpf Urine Mucus Rare H (None) /hpf
[2023-04-26] MEDS: ALBUTEROL HFA INHALER INHALATION PRN (15:45)
[2023-04-26 16:30] LABS: Glucose,Whole Blood 160 mg/dL (70-110)
[2023-04-26] MEDS ORDERED: VANCOMYCIN 1,500 MG in SODIUM CHLORIDE 0.9% 500 ML 500 ML IVPB SCH (17:00)
[2023-04-26] MEDS ORDERED: DILTIAZEM DRIP BOLUS FROM BAG 1 MG SOLN IV ONE (17:05)
[2023-04-26] MEDS: SODIUM CHLORIDE 0.9% 500 ML 500 ML IV SCH (17:23)
[2023-04-26] MEDS: APIXABAN 2.5 MG TABLET PO SCH (17:29)
[2023-04-26] MEDS: NOREPINEPHRINE 4 MG in SODIUM CHLORIDE 0.9% 250 ML IV SCH (17:30)
[2023-04-26] MEDS: DILTIAZEM 125 MG in SODIUM CHLORIDE 0.9% 100 ML IV SCH (18:05)
[2023-04-26] MEDS: ATORVASTATIN 40 MG TAB PO SCH (20:07)
--- NOTE | 2023-04-26 20:16 | P.CONS ---
History of Present Illness - Reason for Consult Consult date: 04/26/23 - History of Present Illness Patient is a 77-year male with multiple comorbidities including COPD diastolic heart failure was recently diagnosed with Pseudomonas pneumonia patient was subsequently discharged to the rehab on IV cefepime with the patient was receiving patient apparently was brought into the ER last evening from [facility] for evaluation of weakness shortness of breath and apparently patient did have A-fib with RVR patient received a bolus of Cardizem at that facility and the patient was subsequently brought here patient apparently has been diagnosed with a COVID-19 at that facility on 04/23/2023 patient on presentation to the hospital was afebrile he did have a tachycardia patient was mildly hypoxic requiring supplemental oxygen patient has been admitted to ICU infectious disease was consulted for further management patient did have a normal white count with mild lymphopenia troponins were elevated he did have elevated BUN/creatinine urine has been negative patient did have a chest x-ray no active cardiopulmonary disease possible COPD changes patient has been continued on cefepime vancomycin, patient has been mostly complaining of shortness of breath and weakness patient denies having any chest pain he did have a cough mild to moderate intensity with increased sputum production no hemoptysis no nausea vomiting no abdominal pain and no diarrhea Past Medical History Past Medical History: Atrial Fibrillation, Coronary Artery Disease (CAD), Heart Failure, COPD, CVA/TIA, Diabetes Mellitus, Hypertension, Myocardial Infarction (AL) Additional Past Medical History / Comment(s): left knee cap broken, pancreat itis, /gallstones, Patient reports having stroke like symptoms after injection in knee, Last Myocardial Infarction Date:: 2017 History of Any Multi-Drug Resistant Organisms: MRSA Year Discovered:: 10/01/22 MDRO Source:: Sputum Past Surgical History: Cholecystectomy, Coronary Bypass/CABG, Heart Catheterization With Stent, Hernia Repair, Orthopedic Surgery Additional Past Surgical History / Comment(s): lt knee replacement(total of 4 sx), colonoscopy, Left knee cap removal with antibiotic spacers placed, Past Anesthesia/Blood Transfusion Reactions: No Reported Reaction Date of Last Stent Placement:: 10/2015 Past Psychological History: No Psychological Hx Reported Additional Psychological History / Comment(s): Pt resides with his spouse. He uses a walker to ambulate. Smoking Status: Former smoker Past Alcohol Use History: Occasional Additional Past Alcohol Use History / Comment(s): Pt started smoking as teen and quit 1983 smoked 2 ppd. Pt usually has one drink a night. Past Drug Use History: None Reported - Past Family History Father Family Medical History: Diabetes Mellitus Mother Family Medical History: CVA/TIA, Hypertension Medications and Allergies Home Medications Medication Instructions Recorded Confirmed Type allopurinoL [Zyloprim] 300 mg PO DAILY@0800 08/07/17 04/25/23 History Gabapentin 1,200 mg PO TID@1400,1800,2200 10/02/18 04/25/23 History Levothyroxine Sodium [Synthroid] 112 mcg PO DAILY@0800 10/02/18 04/25/23 History Levothyroxine Sodium [Synthroid] 125 mcg PO DAILY@0800 10/02/18 04/25/23 History Nitroglycerin Sl Tabs [Nitrostat] 0.4 mg SL Q5M PRN 10/02/18 04/25/23 History Atorvastatin [Lipitor] 40 mg PO HS@199910/19/21 04/25/23 History Apixaban [Eliquis] 5 mg PO BID@0800,1700 09/28/22 04/25/23 History Budesonide/Formoterol Fumarate 2 puff INHALATION RT-BID@0800,1700 09/28/22 04/25/23 History [Symbicort 80-4.5 Mcg Inhaler] HYDROcodone/APAP 7.5-325MG [[place] 1 tab PO BID PRN 09/28/22 04/25/23 History 7.5-325] Magnesium Oxide [Mag-Ox] 400 mg PO BID@0800,1700 09/28/22 04/25/23 History Meclizine [Antivert] 12.5 mg PO TID@0700,1200,1700 09/28/22 04/25/23 History Albuterol Sulfate [Proventil Hfa] 1 puff INHALATION RT-Q8H PRN 11/22/22 04/25/23 History Omeprazole 20 mg PO DAILY@0800 11/22/22 04/25/23 History Glimepiride [Amaryl] 2 mg PO BID@0800,1700 03/29/23 04/25/23 History Aspirin 81 mg PO DAILY@0730 04/25/23 04/25/23 History Cefepime [Maxipime] 2 gm IVPB BID@0900,2100 04/25/23 04/25/23 History Dapagliflozin Propanediol [Farxiga] 10 mg PO DAILY@0800 04/25/23 04/25/23 History Furosemide [Lasix] 40 mg PO BID@0700,1300 04/25/23 04/25/23 History Insulin Glargine-Yfgn [Semglee 40 units SQ DAILY@0800 04/25/23 04/25/23 History (Yfgn) Pen] Insulin Lispro See Protocol SQ QID@07,12,,04/25/23 04/25/23 History Ipratropium-Albuterol Nebulize 3 ml INHALATION RT-Q2H PRN 04/25/23 04/25/23 History [Duoneb 0.5 mg-3 mg/3 ml Soln] Ipratropium-Albuterol Nebulize 3 ml INHALATION RT-QID@07,12,17,04/25/23 0 04/25/23 History [Duoneb 0.5 mg-3 mg/3 ml Soln] Metoprolol Succinate (ER) [Toprol 50 mg PO DAILY@0800 04/25/23 04/25/23 History XL] Molnupiravir [Molnupiravir (Eua)] 800 mg PO BID@0700,1900 04/25/23 04/25/23 History Nystatin 100,000 Unit/ml Susp 500,000 unit PO QID@07,12,17,04/25/23 04/25/23 History [Mycostatin Oral Susp] Potassium Chloride ER [K-Dur 20] 20 meq PO BID@0800,1700 04/25/23 04/25/23 History Allergies Allergy/AdvReac Type Severity Reaction Status Date / Time Sulfa (Sulfonamide Allergy Mild Rash/Hives Verified 04/25/23 16:17 Antibiotics) cephalexin [From Keflex] Allergy Unknown Verified 04/25/23 16:17 clopidogrel [From Plavix] Allergy Rash/Hives Verified 04/25/23 16:17 codeine Allergy Rash/Nausea Verified 04/25/23 16:17 & Vomiting Iodine and Iodide Containing Allergy Rash/Hives Verified 04/25/23 16:17 Produc levofloxacin [From Levaquin] Allergy urticaria/r Verified 04/25/23 16:17 belle shellfish derived [Shellfish] Allergy urticaria/r Verified 04/25/23 16:17 belle lisinopril AdvReac Angiodema Verified 04/25/23 16:17 of tongue oxycodone AdvReac Hallucinati Verified 04/25/23 16:17 ons solifenacin AdvReac Nausea & Verified 04/25/23 16:17 Vomiting Physical Exam Vitals: Vital Signs Temp Pulse Resp BP Pulse Ox 04/26/23 11:00 113 H 24 121/72 95 04/26/23 10:40 105 H 31 H 98/82 96 04/26/23 10:20 121 H 15 96/85 90 L 04/26/23 10:00 126 H 28 H 118/75 95 04/26/23 09:40 118 H 20 123/88 88 L 04/26/23 09:20 111 H 19 128/91 90 L 04/26/23 09:00 112 H 24 81/65 89 L 04/26/23 08:40 105 H 19 91/72 91 L 04/26/23 08:20 123 H 28 H 112/82 93 L 04/26/23 08:00 97.7 F 135 H 35 H 115/70 04/26/23 07:40 98 13 109/54 96 04/26/23 07:20 108 H 15 97/62 93 L 04/26/23 07:00 90 10 L 105/83 92 L 04/26/23 06:40 101 H 14 114/80 95 04/26/23 06:20 89 21 95/74 94 L 04/26/23 06:00 102 H 18 114/87 87 L 04/26/23 05:40 98 19 100/74 100 04/26/23 05:20 113 H 17 109/72 97 04/26/23 05:00 98 21 94/70 93 L 04/26/23 04:40 89 17 89/66 92 L 04/26/23 04:20 98 14 103/69 95 04/26/23 04:00 101 H 22 101/71 94 L 04/26/23 03:40 110 H 26 H 108/72 93 L 04/26/23 03:20 105 H 13 103/62 93 L 04/26/23 03:00 93 11 L 97/71 93 L 04/26/23 02:40 101 H 11 L 107/77 93 L 04/26/23 02:29 98 04/26/23 02:27 17 04/26/23 02:20 105 H 15 99/78 95 04/26/23 02:19 98 04/26/23 02:10 114 H 28 H 99/78 92 L 04/26/23 02:00 100 15 98/83 93 L 04/26/23 01:50 115 H 19 98/83 92 L 04/26/23 01:40 111 H 25 H 104/74 94 L 04/26/23 01:30 101 H 10 L 104/74 93 L 04/26/23 01:20 97 16 98/69 95 04/26/23 01:10 111 H 14 82/71 95 04/26/23 01:09 110 H 56 H 82/71 96 04/26/23 00:34 104 H 22 98 04/25/23 23:07 116 H 24 102/72 98 04/25/23 20:58 103 H 22 105/69 99 04/25/23 20:21 106 H 22 106/68 98 04/25/23 19:37 112 H 22 110/71 96 04/25/23 19:19 99 04/25/23 19:11 96 04/25/23 18:45 88 20 78/64 99 04/25/23 18:19 80 20 80/54 100 04/25/23 17:16 90 20 93/68 100 04/25/23 16:15 116 H 18 126/78 97 04/25/23 15:55 130 H 20 70/55 97 04/25/23 15:39 132 H 20 83/48 97 04/25/23 15:30 98.2 F 47 L 20 102/86 99 Intake and Output 04/25/23 04/26/23 04/26/23 22:59 06:59 14:59 Intake Total 528.353 Output Total 920 460 Balance -920 68.353 Intake: IV 100 Cefepime 2 gm In Sodium 100 Chloride 0.9% 100 ml @ 25 mls/hr IVPB Q12HR [facility] Rx #:[id number] Intake, IV Titration 158.353 Amount Norepinephrine 4 mg In 158.353 Sodium Chloride 0.9% 250 ml @ 0.03 MCG/KG/MIN 11. 406 mls/hr IV .[id number] [facility] Rx#:[id number] Oral 270 Output: Urine 920 460 Other: Voiding Method Indwelling Catheter Indwelling Catheter Weight 99.79 kg 104.3 kg Results CBC & Chem 7: 04/26/23 03:57 04/26/23 03:57 Labs: Abnormal Lab Results - Last 24 Hours (Table) 04/25/23 04/25/23 04/25/23 Range/Units 15:58 16:04 16:04 RBC 3.82 L (4.30-5.90) m/uL Hgb 12.1 L D (13.0-17.5) gm/dL Hct 37.2 L (39.0-53.0) % MCV (80.0-100.0) fL Plt Count 79 L (150-450) k/uL Lymphocytes # 0.3 L (1.0-4.8) k/uL Sodium 133 L (137-145) mmol/L Potassium 5.2 H (3.5-5.1) mmol/L BUN 54 H (9-20) mg/dL Creatinine 2.21 H (0.66-1.25) mg/dL Glucose 248 H (74-99) mg/dL POC Glucose (mg/dL) (70-110) mg/dL Plasma Lactic Acid Gideon 2.6 H* (0.7-2.0) mmol/L Calcium 8.0 L (8.4-10.2) mg/dL Total Bilirubin 1.8 H (0.2-1.3) mg/dL Troponin I (0.000-0.034) ng/mL Total Protein 5.0 L (6.3-8.2) g/dL Albumin 2.7 L (3.5-5.0) g/dL Urine Protein (Negative) Urine Glucose (UA) (Negative) Urine Blood (Negative) Ur Leukocyte Esterase (Negative) Urine Bacteria (None) /hpf Urine Mucus (None) /hpf 04/25/23 04/25/23 04/26/23 Range/Units 16:04 20:55 00:39 RBC (4.30-5.90) m/uL Hgb (13.0-17.5) gm/dL Hct (39.0-53.0) % MCV (80.0-100.0) fL Plt Count (150-450) k/uL Lymphocytes # (1.0-4.8) k/uL Sodium (137-145) mmol/L Potassium (3.5-5.1) mmol/L BUN (9-20) mg/dL Creatinine (0.66-1.25) mg/dL Glucose (74-99) mg/dL POC Glucose (mg/dL) 255 H (70-110) mg/dL Plasma Lactic Acid Gideon (0.7-2.0) mmol/L Calcium (8.4-10.2) mg/dL Total Bilirubin (0.2-1.3) mg/dL Troponin I 0.322 H* 0.331 H* (0.000-0.034) ng/mL Total Protein (6.3-8.2) g/dL Albumin (3.5-5.0) g/dL Urine Protein (Negative) Urine Glucose (UA) (Negative) Urine Blood (Negative) Ur Leukocyte Esterase (Negative) Urine Bacteria (None) /hpf Urine Mucus (None) /hpf 04/26/23 04/26/23 04/26/23 Range/Units 00:54 03:57 03:57 RBC 3.70 L (4.30-5.90) m/uL Hgb 12.0 L (13.0-17.5) gm/dL Hct 37.1 L (39.0-53.0) % MCV 100.4 H (80.0-100.0) fL Plt Count 78 L (150-450) k/uL Lymphocytes # 0.3 L (1.0-4.8) k/uL Sodium 134 L (137-145) mmol/L Potassium (3.5-5.1) mmol/L BUN 57 H (9-20) mg/dL Creatinine 2.15 H (0.66-1.25) mg/dL Glucose 178 H (74-99) mg/dL POC Glucose (mg/dL) (70-110) mg/dL Plasma Lactic Acid Gideon (0.7-2.0) mmol/L Calcium 7.9 L (8.4-10.2) mg/dL Total Bilirubin (0.2-1.3) mg/dL Troponin I 0.234 H* (0.000-0.034) ng/mL Total Protein (6.3-8.2) g/dL Albumin (3.5-5.0) g/dL Urine Protein (Negative) Urine Glucose (UA) (Negative) Urine Blood (Negative) Ur Leukocyte Esterase (Negative) Urine Bacteria (None) /hpf Urine Mucus (None) /hpf 04/26/23 Range/Units 09:25 RBC (4.30-5.90) m/uL Hgb (13.0-17.5) gm/dL Hct (39.0-53.0) % MCV (80.0-100.0) fL Plt Count (150-450) k/uL Lymphocytes # (1.0-4.8) k/uL Sodium (137-145) mmol/L Potassium (3.5-5.1) mmol/L BUN (9-20) mg/dL Creatinine (0.66-1.25) mg/dL Glucose (74-99) mg/dL POC Glucose (mg/dL) (70-110) mg/dL Plasma Lactic Acid Gideon (0.7-2.0) mmol/L Calcium (8.4-10.2) mg/dL Total Bilirubin (0.2-1.3) mg/dL Troponin I (0.000-0.034) ng/mL Total Protein (6.3-8.2) g/dL Albumin (3.5-5.0) g/dL Urine Protein 1+ H (Negative) Urine Glucose (UA) 3+ H (Negative) Urine Blood Moderate H (Negative) Ur Leukocyte Esterase Trace H (Negative) Urine Bacteria Rare H (None) /hpf Urine Mucus Rare H (None) /hpf Assessment and Plan Plan: 1patient was in the hospital with increasing shortness of breath which is likely multifactorial possibly related to underlying worsening of diastolic heart failure from A-fib with RVR clinically doubt any worsening pneumonia the patient did have positive COVID 19 and may be of possibly contributing however chest x-ray was negative for any pneumonia patient not running any fever did have a normal white count with mild lymphopenia. 2-patient with renal insufficiency and high risk of nephrotoxicity from vancomycin 3-we will check inflammatory markers 4-continue cefepime however discontinue vancomycin 5-as far as COVID-19 treatment should be mostly supportive no need for remdesivir We will follow on clinical condition and cultures to further adjust medication if needed Thank you for this consultation we will follow the patient along with you Time with Patient: Greater than 30
[2023-04-26 22:00] LABS: Glucose,Whole Blood 206 mg/dL (70-110)
[2023-04-27] MEDS: DILTIAZEM 125 MG in SODIUM CHLORIDE 0.9% 100 ML IV SCH ×2 (01:07→12:14)
[2023-04-27 04:15] LABS: HCT 32.8 % (39.0-53.0); HGB 10.8 gm/dL (13.0-17.5); MCH 32.5 pg (25.0-35.0); MCV 98.6 fL (80.0-100.0); Mean Platelet Volume 8.4; RBC 3.33 m/uL (4.30-5.90); RDW 15.1 % (11.5-15.5)
[2023-04-27 04:23] LABS: Platelet Count 62 k/uL (150-450)
[2023-04-27 04:37] LABS: African American GFR (CKD) 34 (>60 ml/min/1.73 sqM); Anion Gap 4 mmol/L; Blood Urea Nitrogen 51 mg/dL (9-20); Calcium 7.4 mg/dL (8.4-10.2); Carbon Dioxide 26 mmol/L (22-30); Chloride 102 mmol/L (98-107); Glucose 77 mg/dL (74-99); Non-African American GFR(CKD) 30 (>60 ml/min/1.73 sqM); Sodium 132 mmol/L (137-145)
[2023-04-27] MEDS: PANTOPRAZOLE 40 MG TABLET PO SCH (06:30)
[2023-04-27] MEDS: FUROSEMIDE 40 MG TAB PO SCH ×2 (06:30→14:20)
[2023-04-27 06:40] LABS: Glucose,Whole Blood 71 mg/dL (70-110)
[2023-04-27] MEDS: NOREPINEPHRINE 4 MG in SODIUM CHLORIDE 0.9% 250 ML IV SCH (06:43)
[2023-04-27] MEDS: SYMBICORT 80-4.5 MCG INHALER INHALATION SCH ×2 (08:53→16:04)
[2023-04-27] MEDS: ALBUTEROL HFA INHALER INHALATION PRN ×2 (08:54→16:05)
[2023-04-27] MEDS: LEVOTHYROXINE 112 MCG TAB PO SCH (08:55)
[2023-04-27] MEDS: GLIMEPIRIDE 2 MG TAB PO SCH ×2 (08:55→18:07)
[2023-04-27] MEDS: METOPROLOL SUCCINATE (ER) 50 MG TAB.ER.24H PO SCH (08:56)
[2023-04-27] MEDS: CEFEPIME 2 GM in SODIUM CHLORIDE 0.9% 100 ML IVPB SCH ×2 (08:56→16:28)
[2023-04-27] MEDS: LEVOTHYROXINE 125 MCG TAB PO SCH (08:56)
[2023-04-27] MEDS: APIXABAN 2.5 MG TABLET PO SCH ×2 (08:56→18:07)
--- NOTE | 2023-04-27 09:35 | P.PN ---
Subjective Progress Note Date: 04/27/23 Principal diagnosis: Acute exacerbation of chronic systolic congestive heart failure, atrial fibrillation with RVR this is a 77-year-old white male, very familiar to my service, I have seen this patient many times in the past for history of chronic obstructive pulmonary disease, and recurrent diastolic congestive heart failure/chronic. Patient was last here last month, and he was treated for Pseudomonas pneumonia. Patient was discharged to rehab, and has been in rehab recently until yesterday patient was complaining of weakness, shortness of breath, he was sent to [facility] initially, and he was found in atrial fibrillation with RVR. Patient was also noted to be hypotensive. Patient has been receiving antibiotics in the form of redness cefepime via PICC line in his left upper extremity. At [facility] the patient was given Cardizem, and he was noted to be hypotensive, hence arrangements were made for the patient to transfer to [facility]. Patient was given fluid boluses while in the ER, and he developed some component of interstitial edema, at the same time the patient was placed on low- dose norepinephrine, admitted to the ICU, and this consult was initiated. Patient is on cefepime is also on vancomycin, he is yet to be seen by nephrology and infectious disease on consultation, patient is also on eliquis chronically. During my evaluation, the patient was on room air, he does have intermittent cough and wheezing.WC count is 8.1 hemoglobin is 12 electrolytes are normal BUN is 57 creatinine 2.15.baseline creatinine is in the range of 1.5 from the last admission.troponins were also noted to be elevated 0.33 follow-up troponin was 0.234.chest x-ray showed cardiomegaly, and mild interstitial infiltrates/edema. Patient was seen and evaluated on , remains in the ICU, remains on 4 L nasal cannula, remains on Cardizem drip at 10 mg per hour remains on norepinephrine at 0.0-3 mcg/kg/m, IV fluids at KVO, patient is sleeping and dressing this morning, he had episodes of anxiety yesterday. Under control, patient is maintained on Xanax. Cardiology is planning to cut down his Cardizem down to 5 mg per hour, hopefully with good taper and possibly discontinue norepinephrine today. Overall the patient is doing much better today compared to yesterday. WBC count is 6 hemoglobin is 10.8 electrolytes are normal BUN is 51 creatinine 2.08, improving compared to his admission creatinine of 2.21. Chest x-ray is showing nonspecific interstitial bilateral changes patient is known to have history of nonspecific interstitial pneumonitis. And chronic diastolic congestive heart failure Objective - Vital Signs Vital signs: Vital Signs Temp 98.9 F 04/27/23 04:00 Pulse 104 H 04/27/23 07:00 Resp 17 04/27/23 07:00 BP 94/57 04/27/23 07:00 Pulse Ox 96 04/27/23 08:54 FiO2 Intake & Output 04/26/23 04/27/23 04/27/23 18:59 06:59 18:59 Intake Total 1592.072 534.730 102.5 Output Total 1940 1340 Balance -347.928 -805.270 102.5 Weight 105.4 kg Intake: IV 140 260 Cefepime 2 gm In Sodium 100 Chloride 0.9% 100 ml @ 25 mls/hr IVPB Q12HR [facility] Rx #:[id number] Sodium Chloride 0.9% 500 40 260 ml 500 ml @ 20 mls/hr IV .Q24H [facility] Rx#:[id number] Intake, IV Titration 267.072 274.730 102.5 Amount Diltiazem 125 mg In 2.333 94.583 102.5 Sodium Chloride 0.9% 100 ml @ Per Protocol IV .Q0M [facility] Rx#:[id number] Norepinephrine 4 mg In 257.586 Sodium Chloride 0.9% 250 ml @ 0.03 MCG/KG/MIN 11. 406 mls/hr IV .[id number] [facility] Rx#:[id number] Norepinephrine 4 mg In 7.153 180.147 Sodium Chloride 0.9% 250 ml @ 0.03 MCG/KG/MIN 11. 922 mls/hr IV .[id number] [facility] Rx#:[id number] Oral 1185 Output: Urine 1940 1340 Other: Voiding Method Indwelling Catheter Indwelling Catheter # Bowel Movements 1 - Exam GENERAL EXAM: Alert, pleasant 77-year-old male, on room air,not in any distress. On 4 L nasal cannula HEAD: Normocephalic. EYES: Normal reaction of pupils, equal size. NOSE: Clear with pink turbinates. THROAT: No erythema or exudates. NECK: No masses, no JVD. CHEST: No chest wall deformity. LUNGS: Diminished breath sounds and crackles at the bases. No rhonchi and no wheezes CVS:irregular irregular rhythm. S1 and S2 normal with no audible murmur, regular rhythm. ABDOMEN: No hepatosplenomegaly, normal bowel sounds, no guarding or rigidity. SKIN: No rashes CENTRAL NERVOUS SYSTEM: alert and oriented 3, no gross focal deficit psychiatric: Normal mood affect and normal mental status examination. EXTREMITIES: Trace of bipedal edema - Labs CBC & Chem 7: 04/27/23 04:02 04/27/23 04:02 Labs: Abnormal Lab Results - Last 24 Hours (Table) 04/26/23 04/26/23 04/26/23 Range/Units 09:25 16:28 21:59 RBC (4.30-5.90) m/uL Hgb (13.0-17.5) gm/dL Hct (39.0-53.0) % Plt Count (150-450) k/uL Sodium (137-145) mmol/L BUN (9-20) mg/dL Creatinine (0.66-1.25) mg/dL POC Glucose (mg/dL) 160 H 206 H (70-110) mg/dL Calcium (8.4-10.2) mg/dL Urine Protein 1+ H (Negative) Urine Glucose (UA) 3+ H (Negative) Urine Blood Moderate H (Negative) Ur Leukocyte Esterase Trace H (Negative) Urine Bacteria Rare H (None) /hpf Urine Mucus Rare H (None) /hpf 04/27/23 04/27/23 Range/Units 04:02 04:02 RBC 3.33 L (4.30-5.90) m/uL Hgb 10.8 L (13.0-17.5) gm/dL Hct 32.8 L (39.0-53.0) % Plt Count 62 L (150-450) k/uL Sodium 132 L (137-145) mmol/L BUN 51 H (9-20) mg/dL Creatinine 2.08 H (0.66-1.25) mg/dL POC Glucose (mg/dL) (70-110) mg/dL Calcium 7.4 L (8.4-10.2) mg/dL Urine Protein (Negative) Urine Glucose (UA) (Negative) Urine Blood (Negative) Ur Leukocyte Esterase (Negative) Urine Bacteria (None) /hpf Urine Mucus (None) /hpf Microbiology - Last 24 Hours (Table) 04/25/23 15:58 Blood Culture - Preliminary Blood 04/25/23 15:50 Blood Culture - Preliminary Blood Assessment and Plan Assessment: impression: Chronic atrial fibrillation, patient presented with atrial fibrillation with RVR. Acute exacerbation of chronic systolic congestive heart failure, ejection fraction 30-35% on 03/29/2023 Acute exacerbation of COPD recent history of pneumonia secondary to pseudomonas aeruginosa, on cefepime. Moderate severe aortic stenosis with pulmonary hypertension Chronic kidney disease stage III Former smoker History of coronary artery disease and previous CABG and stenting dyslipidemia Hypothyroidism Poor overall functional performance based on the above-mentioned multiple comorbidities recommendation: Continue to monitor in the ICU, patient remains on norepinephrine and he remains on Cardizem drips Continue bronchodilators. Continue Eliquis. continue antibiotics including cefepime , discontinue vancomycin. continue metoprolol Resume home meds Continue diuretics Lasix 40 mg IV push twice a day continue GI and DVT prophylaxis Check cultures including blood cultures, blood cultures are negative so far. We will continue to follow. Time with Patient: Less than 30
--- NOTE | 2023-04-27 09:43 | XR ---
EXAMINATION TYPE: XR chest 1V portable DATE OF EXAM: 04/27/2023 COMPARISON: 04/26/2023 HISTORY: CHF TECHNIQUE: Single frontal view of the chest is obtained. FINDINGS: There are median sternotomy wires. The heart is mildly prominent in size. There is mild diffuse interstitial prominence which could refl ect chronic interstitial changes or mild vascular congestion. There is no pneumothorax or pleural effusion. There is no airspace consolidation. There is a chronic rotator cuff left shoulder. IMPRESSION: 1. No change in the diffuse prominent interstitial markings reflecting either chronic interstitial ch anges or mild vascular congestion. 2. No airspace consolidation. 3. Persistent mild cardiomegaly.
[2023-04-27] MEDS: CHOLECALCIFEROL 25 MCG (1000 IU) TABLET PO SCH (09:47)
[2023-04-27] MEDS: ZINC SULFATE 220 MG CAP PO SCH (09:47)
[2023-04-27] MEDS: ASCORBIC ACID 500 MG TAB PO SCH (09:47)
[2023-04-27 11:44] LABS: Glucose,Whole Blood 136 mg/dL (70-110)
--- NOTE | 2023-04-27 12:51 | PN ---
PROGRESS NOTE SUBJECTIVE: This is a 77-year-old gentleman who was admitted to hospital with COVID infection and had atrial fibrillation with rapid ventricular rate. His symptoms on his initial presentation were in the form of weakness, fatigue, and shortness of breath. The patient has Pseudomonas infection, is currently on cefepime for the same. His ejection fraction is around 30% to 35% and the patient remains in atrial fibrillation today. His heart rate is better controlled on Cardizem 5 mg. He was on 15 mg of Cardizem early and tapering Cardizem. He is also on Levophed and beta blockers. OBJECTIVE: VITAL SIGNS: Heart rate is 83 beats per minute, blood pressure is 90/55, respiratory rate is 18, and O2 saturation is 95% on 4 L. NECK: There is no jugular venous distention. Carotid upstroke is normal. There is no bruit. CHEST: Reveals good air entry bilaterally. HEART: Reveals first and second heart sounds. Systolic murmur at the apex. ABDOMEN: Soft. EXTREMITIES: Reveal 1+ edema. Peripheral pulses are palpable. LABORATORY DATA: Showed potassium of 4, BUN is 51, creatinine is 2, hemoglobin is 10.8. ASSESSMENT: 1. Atrial fibrillation with better controlled ventricular rate. 2. CAD. 3. Ischemic cardiomyopathy. 4. Hypotension. 5. COVID infection. PLAN: The patient will continue current medications. We will taper and stop the Cardizem, increase the dose of metoprolol if necessary. MMSYLVESTERL / NORAN: [id number] /
[2023-04-27] MEDS: GABAPENTIN 400 MG CAP PO SCH ×3 (14:20→21:13)
[2023-04-27] MEDS: ALPRAZolam 0.25 MG TAB PO PRN ×2 (14:27→21:13)
--- NOTE | 2023-04-27 14:30 | P.PN ---
Subjective Progress Note Date: 04/27/23 Patient is a 69-year-old male came in with the complaints of weakness of his of breath. Found to be in congestive heart failure exacerbation. Patient was started on IV Lasix. Patient the was receiving IV antibiotics as an outpatient cefepime for pseudomonas pneumonia recently. Patient was also diagnosed with COVID-19. Patient Has acute renal failure with creatinine of around 2.5 baseline is around 1.3. Patient does have chronic kidney disease stage III does have history of can start failure chronic systolic dysfunction with the EF of around 30-35%. Patient does have severe pulmonary hypertension and severe stenosis patient is hyponatremic as well with mildly elevated troponins. Patient is presently on 2 L of oxygen was on 4 L of oxygen. Patient does have history of atrial fibrillation presently in A. fib with heart on 129. 04/27/2023 Patient is evaluated in the intensive care unit today continues to be short of breath and fatigued. Patient was diagnosed with COVID outpatient on the at [facility]. Continues on IV cefepime. Heart rate controlled in the 80-90s patient continues on IV cardizem and resumed on eliquis with renal dosing. Patient creatinine improved slightly to 2.08 today. Continues on levophed and blood pressure in the 90s systolic. Review of Systems Constitutional: Reports fatigue,denied any fever. Cardio vascular: denied any chest pain, palpitations Gastrointestinal: denied any nausea, vomiting, diarrhea Pulmonary: Reports shortness of breath and cough with green/brown sputum Neurologic denied any new focal deficits Weakness All inpatient medications were reviewed and appropriate changes in these medications as dictated in the interval history and assessment and plan. PHYSICAL EXAMINATION: GENERAL: The patient is alert and oriented x3, not in any acute distress. Well developed, well nourished. HEENT: Pupils are round and equally reacting to light. EOMI. No scleral icterus. No conjunctival pallor. Normocephalic, atraumatic. No pharyngeal erythema. No thyromegaly. CARDIOVASCULAR: S1 and S2 present. No murmurs, rubs, or gallops. PULMONARY: Bilateral rhonchi ABDOMEN: Soft, nontender, nondistended, normoactive bowel sounds. No palpable organomegaly. MUSCULOSKELETAL: No joint swelling or deformity. EXTREMITIES: No cyanosis, clubbing, or pedal edema. NEUROLOGICAL: Gross neurological examination did not reveal any focal deficits. Generalized weakness SKIN: No rashes. 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 -Coronary artery disease with CABG in the past -atrial fibrillation paroxysmal: Continue with anticoagulation and rate control medications, was in rapid ventricular rate on admission -Hypothyroidism -COPD with the possible mild acute exacerbation -COVID-19 pneumonia DVT prophylaxis: On anticoagulation GI prophylaxis Full Code Plan Continue IV lasix intake and output monitoring Continue antibiotics and supportive care Sputum culture ordered Follow up labs in AM PT/OT consultation [facility] consultations including pulmonary, infect ious disease and nephrology The impression and plan of care has been dictated by Morenita Adrian, Nurse Practitioner as directed. Dr. Yolanda MD I have performed a history and physical examination and medical decision making of this patient, discussed the same with the dictator, and agree with the dictators assessment and plan as written, documented as a scribe. Based on total visit time, I have performed more than 50% of this visit. Objective - Vital Signs Vital signs: Vital Signs Temp 98.2 F 04/27/23 12:00 Pulse 80 04/27/23 14:00 Resp 21 04/27/23 14:00 BP 93/68 04/27/23 14:00 Pulse Ox 92 L 04/27/23 14:00 FiO2 Intake & Output 04/26/23 04/27/23 04/27/23 18:59 06:59 18:59 Intake Total 1592.072 534.730 704.682 Output Total 1940 1340 544 Balance -347.928 -805.270 160.682 Weight 105.4 kg Intake: IV 140 260 100 Cefepime 2 gm In Sodium 100 Chloride 0.9% 100 ml @ 25 mls/hr IVPB Q12HR [facility] Rx #:[id number] Sodium Chloride 0.9% 500 40 260 100 ml 500 ml @ 20 mls/hr IV .Q24H [facility] Rx#:[id number] Intake, IV Titration 267.072 274.730 200.682 Amount Diltiazem 125 mg In 2.333 94.583 134.583 Sodium Chloride 0.9% 100 ml @ Per Protocol IV .Q0M [facility] Rx#:[id number] Norepinephrine 4 mg In 257.586 Sodium Chloride 0.9% 250 ml @ 0.03 MCG/KG/MIN 11. 406 mls/hr IV .[id number] [facility] Rx#:[id number] Norepinephrine 4 mg In 7.153 180.147 66.099 Sodium Chloride 0.9% 250 ml @ 0.03 MCG/KG/MIN 11. 922 mls/hr IV .[id number] [facility] Rx#:[id number] Oral 1185 404 Output: Urine 1940 1340 544 Other: Voiding Method Indwelling Catheter Indwelling Catheter Indwelling Catheter # Bowel Movements 1 - Labs CBC & Chem 7: 04/27/23 04:02 04/27/23 04:02 Labs: Abnormal Lab Results - Last 24 Hours (Table) 04/26/23 04/26/23 04/27/23 Range/Units 16:28 21:59 04:02 RBC 3.33 L (4.30-5.90) m/uL Hgb 10.8 L (13.0-17.5) gm/dL Hct 32.8 L (39.0-53.0) % Plt Count 62 L (150-450) k/uL Sodium (137-145) mmol/L BUN (9-20) mg/dL Creatinine (0.66-1.25) mg/dL POC Glucose (mg/dL) 160 H 206 H (70-110) mg/dL Calcium (8.4-10.2) mg/dL 04/27/23 04/27/23 Range/Units 04:02 11:44 RBC (4.30-5.90) m/uL Hgb (13.0-17.5) gm/dL Hct (39.0-53.0) % Plt Count (150-450) k/uL Sodium 132 L (137-145) mmol/L BUN 51 H (9-20) mg/dL Creatinine 2.08 H (0.66-1.25) mg/dL POC Glucose (mg/dL) 136 H (70-110) mg/dL Calcium 7.4 L (8.4-10.2) mg/dL Microbiology - Last 24 Hours (Table) 04/25/23 15:58 Blood Culture - Preliminary Blood 04/25/23 15:50 Blood Culture - Preliminary Blood Assessment and Plan Time with Patient: Less than 30
--- NOTE | 2023-04-27 14:51 | P.PN ---
Subjective Progress Note Date: 04/27/23 Principal diagnosis: Pneumonia Patient is a 77-year male with multiple comorbidities including COPD diastolic heart failure was recently diagnosed with Pseudomonas pneumonia, patient was subsequently diagnosed with a Covid 19 [facility] has been brought into the hospital for shortness of breath A. fib with RVR and did have hypotension on today's evaluation that is 04/27/2023, the patient denies having any fever or any chills, patient is currently breathing comfortably on 4 L nasal cannula oxygen patient is currently on combination of Cardizem and Levophed, patient denies any chest pain did have a cough and bringing up some sputum no nausea vomiting abdominal pain or diarrhea Objective - Vital Signs Vital signs: Vital Signs Temp 98.2 F 04/27/23 12:00 Pulse 95 04/27/23 13:30 Resp 17 04/27/23 13:30 BP 107/63 04/27/23 13:30 Pulse Ox 94 L 04/27/23 13:30 FiO2 Intake & Output 04/26/23 04/27/23 04/27/23 18:59 06:59 18:59 Intake Total 1592.072 534.730 695.099 Output Total 1940 1340 544 Balance -347.928 -805.270 151.099 Weight 105.4 kg Intake: IV 140 260 100 Cefepime 2 gm In Sodium 100 Chloride 0.9% 100 ml @ 25 mls/hr IVPB Q12HR [facility] Rx #:[id number] Sodium Chloride 0.9% 500 40 260 100 ml 500 ml @ 20 mls/hr IV .Q24H [facility] Rx#:[id number] Intake, IV Titration 267.072 274.730 191.099 Amount Diltiazem 125 mg In 2.333 94.583 125.0 Sodium Chloride 0.9% 100 ml @ Per Protocol IV .Q0M [facility] Rx#:[id number] Norepinephrine 4 mg In 257.586 Sodium Chloride 0.9% 250 ml @ 0.03 MCG/KG/MIN 11. 406 mls/hr IV .[id number] [facility] Rx#:[id number] Norepinephrine 4 mg In 7.153 180.147 66.099 Sodium Chloride 0.9% 250 ml @ 0.03 MCG/KG/MIN 11. 922 mls/hr IV .[id number] [facility] Rx#:[id number] Oral 1185 404 Output: Urine 1940 1340 544 Other: Voiding Method Indwelling Catheter Indwelling Catheter Indwelling Catheter # Bowel Movements 1 - Exam GENERAL DESCRIPTION: An elderly male lying in bed in no distress RESPIRATORY SYSTEM: Unlabored breathing , decreased breath sounds at bases HEART: S1 S2 regular rate and rhythm , ABDOMEN: Soft , no tenderness EXTREMITIES: No edema feet - Labs CBC & Chem 7: 04/27/23 04:02 04/27/23 04:02 Labs: Abnormal Lab Results - Last 24 Hours (Table) 04/26/23 04/26/23 04/27/23 Range/Units 16:28 21:59 04:02 RBC 3.33 L (4.30-5.90) m/uL Hgb 10.8 L (13.0-17.5) gm/dL Hct 32.8 L (39.0-53.0) % Plt Count 62 L (150-450) k/uL Sodium (137-145) mmol/L BUN (9-20) mg/dL Creatinine (0.66-1.25) mg/dL POC Glucose (mg/dL) 160 H 206 H (70-110) mg/dL Calcium (8.4-10.2) mg/dL 04/27/23 04/27/23 Range/Units 04:02 11:44 RBC (4.30-5.90) m/uL Hgb (13.0-17.5) gm/dL Hct (39.0-53.0) % Plt Count (150-450) k/uL Sodium 132 L (137-145) mmol/L BUN 51 H (9-20) mg/dL Creatinine 2.08 H (0.66-1.25) mg/dL POC Glucose (mg/dL) 136 H (70-110) mg/dL Calcium 7.4 L (8.4-10.2) mg/dL Microbiology - Last 24 Hours (Table) 04/25/23 15:58 Blood Culture - Preliminary Blood 04/25/23 15:50 Blood Culture - Preliminary Blood Assessment and Plan (1) COVID-19 Current Visit: Yes Status: Acute Code(s): U07.1 - COVID-19 SNOMED Code(s): 666560239 (2) Pneumonia Current Visit: Yes Status: Acute Code(s): J18.9 - PNEUMONIA, UNSPECIFIED ORGANISM SNOMED Code(s): 803834409 Plan: 1patient was in the hospital with increasing shortness of breath which is likely multifactorial possibly related to underlying worsening of diastolic heart failure from A-fib with RVR clinically doubt any worsening pneumonia the patient did have positive COVID 19 and may be of possibly contributing however chest x-ray was negative for any pneumonia patient not running any fever did have a normal white count with mild lymphopenia. Continue the current supportive treatment 2-patient with renal insufficiency and high risk of nephrotoxicity from vancomycin 3- inflammatory markers, and currently pending 4Patient to cefepime and we will repeat his sputum culture Time with Patient: Less than 30
[2023-04-27 16:36] LABS: Glucose,Whole Blood 151 mg/dL (70-110)
[2023-04-27] MEDS: ATORVASTATIN 40 MG TAB PO SCH (21:13)
[2023-04-27] MEDS: SODIUM CHLORIDE 0.9% 500 ML 500 ML IV SCH (21:14)
[2023-04-27 21:46] LABS: Glucose,Whole Blood 116 mg/dL (70-110)
--- NOTE | 2023-04-27 22:54 | P.PN ---
Subjective Patient is seen for f/u for JEREMY on top of CKD. On cardizem drip. Good UOP, about 150cc/ hr. No shortness of breath. Serum creatinine staying around 2 mg/dL Maintained on oral lasix. Remains on low dose levofed. COVID positive. Objective - Vital Signs Vital signs: Vital Signs Temp 98.4 F 04/27/23 20:00 Pulse 101 H 04/27/23 21:00 Resp 20 04/27/23 21:00 BP 89/52 04/27/23 21:00 Pulse Ox 94 L 04/27/23 21:00 FiO2 Intake & Output 04/27/23 04/27/23 04/28/23 06:59 18:59 06:59 Intake Total 958.203 7279.095 64.241 Output Total 1340 1634 325 Balance -805.270 2.095 -260.759 Weight 105.4 kg Intake: IV 260 220 40 Sodium Chloride 0.9% 500 260 220 40 ml 500 ml @ 20 mls/hr IV .Q24H [facility] Rx#:[id number] Intake, IV Titration 274.730 300.095 24.241 Amount Diltiazem 125 mg In 94.583 134.583 Sodium Chloride 0.9% 100 ml @ Per Protocol IV .Q0M [facility] Rx#:[id number] Norepinephrine 4 mg In 180.147 165.512 24.241 Sodium Chloride 0.9% 250 ml @ 0.03 MCG/KG/MIN 11. 922 mls/hr IV .[id number] [facility] Rx#:[id number] Oral 1116 Output: Urine 1340 1634 325 Other: Voiding Method Indwelling Catheter Indwelling Catheter Indwelling Catheter - Exam Patient is awake Comfortable A and O x3 Lungs are clear CVS S1 and S2 Abdomen is soft, non tender. Extremities show trace edema. - Labs CBC & Chem 7: 04/27/23 04:02 04/27/23 04:02 Labs: Abnormal Lab Results - Last 24 Hours (Table) 04/27/23 04/27/23 04/27/23 Range/Units 04:02 04:02 11:44 RBC 3.33 L (4.30-5.90) m/uL Hgb 10.8 L (13.0-17.5) gm/dL Hct 32.8 L (39.0-53.0) % Plt Count 62 L (150-450) k/uL Sodium 132 L (137-145) mmol/L BUN 51 H (9-20) mg/dL Creatinine 2.08 H (0.66-1.25) mg/dL POC Glucose (mg/dL) 136 H (70-110) mg/dL Calcium 7.4 L (8.4-10.2) mg/dL 04/27/23 04/27/23 Range/Units 16:35 21:44 RBC (4.30-5.90) m/uL Hgb (13.0-17.5) gm/dL Hct (39.0-53.0) % Plt Count (150-450) k/uL Sodium (137-145) mmol/L BUN (9-20) mg/dL Creatinine (0.66-1.25) mg/dL POC Glucose (mg/dL) 151 H 116 H (70-110) mg/dL Calcium (8.4-10.2) mg/dL Microbiology - Last 24 Hours (Table) 04/25/23 15:58 Blood Culture - Preliminary Blood 04/25/23 15:50 Blood Culture - Preliminary Blood Assessment and Plan Assessment: 1. Acute kidney injury, nonoliguric secondary to hemodynamic ATN secondary to low blood pressure and hemodynamic instability with A. fib with RVR. Possible cardiorenal component as well. Patient is currently being diuresed. 2. Chronic kidney disease NKF stage IIIB with baseline creatinine 1.3-1.5 mg/dL secondary to diabetic kidney disease 3. Pseudomonas pneumonia on recent admission on 04/06/2023 maintained on cefepime at home 4. Acute COPD exacerbation status post treatment and discharge about 10 days ago 5. Cardiomyopathy with ejection fraction 20-30%. Ischemic cardiomyopathy 6. Chronic systolic CHF with acute exacerbation 7. A. fib with RVR 8. COVID- positive on 04/19/2023 Plan: Continue with current dose of Lasix Monitor vancomycin levels closely and discontinue if not absolutely needed Continue to try to wean off pressors Repeat labs in a.m.
[2023-04-28] MEDS: CEFEPIME 2 GM in SODIUM CHLORIDE 0.9% 100 ML IVPB SCH ×2 (04:55→16:39)
[2023-04-28 04:57] LABS: African American GFR (CKD) 30 (>60 ml/min/1.73 sqM); Anion Gap 6 mmol/L; Blood Urea Nitrogen 47 mg/dL (9-20); Calcium 7.6 mg/dL (8.4-10.2); Carbon Dioxide 26 mmol/L (22-30); Chloride 101 mmol/L (98-107); Non-African American GFR(CKD) 26 (>60 ml/min/1.73 sqM); Potassium 3.6 mmol/L (3.5-5.1); Sodium 133 mmol/L (137-145)
[2023-04-28 05:00] LABS: Glucose 44 mg/dL (74-99)
[2023-04-28 05:02] LABS: Basophils % (A) 0 %; Eosinophils # (A) 0.1 k/uL (0-0.7); Eosinophils % (A) 1 %; HCT 34.5 % (39.0-53.0); HGB 11.5 gm/dL (13.0-17.5); Lymphocytes # (A) 0.2 k/uL (1.0-4.8); Lymphocytes % (A) 6 %; MCH 32.4 pg (25.0-35.0); MCHC 33.2 g/dL (31.0-37.0); MCV 97.5 fL (80.0-100.0); Mean Platelet Volume 8.4; Monocytes # (A) 0.3 k/uL (0-1.0); Monocytes % (A) 8 %; Neutrophils # (A) 3.4 k/uL (1.3-7.7); Neutrophils % (A) 83 %; Platelet Count 53 k/uL (150-450); Poikilocytosis Slight; RBC 3.54 m/uL (4.30-5.90); RDW 15.1 % (11.5-15.5); WBC 4.1 k/uL (3.8-10.6)
[2023-04-28 05:07] LABS: Glucose,Whole Blood 52 mg/dL (70-110)
[2023-04-28 05:26] LABS: Glucose,Whole Blood 58 mg/dL (70-110)
[2023-04-28 05:56] LABS: Glucose,Whole Blood 75 mg/dL (70-110)
[2023-04-28] MEDS: PANTOPRAZOLE 40 MG TABLET PO SCH (06:31)
[2023-04-28] MEDS: FUROSEMIDE 40 MG TAB PO SCH ×2 (06:31→12:44)
[2023-04-28] MEDS ORDERED: POTASSIUM CHLORIDE ER 20 MEQ TAB.ER PO SCH (07:00)
[2023-04-28] MEDS ORDERED: GLIMEPIRIDE 1 MG TAB PO SCH (08:00)
--- NOTE | 2023-04-28 08:36 | P.PN ---
Subjective Patient is seen for f/u for JEREMY on top of CKD. On cardizem drip. Good UOP, about 70cc/ hr. No significant shortness of breath. Serum creatinine at 2.3 mg/dL Maintained on oral lasix. Remains on low dose levofed. COVID positive. Objective - Vital Signs Vital signs: Vital Signs Temp 98.5 F 04/28/23 04:00 Pulse 106 H 04/28/23 07:00 Resp 17 04/28/23 07:00 BP 134/76 04/28/23 07:00 Pulse Ox 92 L 04/28/23 07:00 FiO2 Intake & Output 04/27/23 04/28/23 04/28/23 18:59 06:59 18:59 Intake Total 1636.095 291.330 8.942 Output Total 1634 820 Balance 2.095 -528.670 8.942 Weight 105.1 kg Intake: IV 220 240 Sodium Chloride 0.9% 500 220 240 ml 500 ml @ 20 mls/hr IV .Q24H [facility] Rx#:[id number] Intake, IV Titration 300.095 51.330 8.942 Amount Diltiazem 125 mg In 134.583 Sodium Chloride 0.9% 100 ml @ Per Protocol IV .Q0M [facility] Rx#:[id number] Norepinephrine 4 mg In 165.512 51.330 8.942 Sodium Chloride 0.9% 250 ml @ 0.03 MCG/KG/MIN 11. 922 mls/hr IV .[id number] [facility] Rx#:[id number] Oral 1116 Output: Urine 1634 820 Other: Voiding Method Indwelling Catheter Indwelling Catheter - Exam Patient is awake Comfortable A and O x3 Lungs show bilateral wheezing CVS S1 and S2 Abdomen is soft, non tender. Extremities show trace edema. - Labs CBC & Chem 7: 04/28/23 03:54 04/28/23 03:54 Labs: Abnormal Lab Results - Last 24 Hours (Table) 04/27/23 04/27/23 04/27/23 Range/Units 11:44 16:35 21:44 RBC (4.30-5.90) m/uL Hgb (13.0-17.5) gm/dL Hct (39.0-53.0) % Plt Count (150-450) k/uL Lymphocytes # (1.0-4.8) k/uL Sodium (137-145) mmol/L BUN (9-20) mg/dL Creatinine (0.66-1.25) mg/dL Glucose (74-99) mg/dL POC Glucose (mg/dL) 136 H 151 H 116 H (70-110) mg/dL Calcium (8.4-10.2) mg/dL 04/28/23 04/28/23 04/28/23 Range/Units 03:54 03:54 05:04 RBC 3.54 L (4.30-5.90) m/uL Hgb 11.5 L (13.0-17.5) gm/dL Hct 34.5 L (39.0-53.0) % Plt Count 53 L (150-450) k/uL Lymphocytes # 0.2 L (1.0-4.8) k/uL Sodium 133 L (137-145) mmol/L BUN 47 H (9-20) mg/dL Creatinine 2.31 H (0.66-1.25) mg/dL Glucose 44 L* (74-99) mg/dL POC Glucose (mg/dL) 52 L (70-110) mg/dL Calcium 7.6 L (8.4-10.2) mg/dL 04/28/23 Range/Units 05:25 RBC (4.30-5.90) m/uL Hgb (13.0-17.5) gm/dL Hct (39.0-53.0) % Plt Count (150-450) k/uL Lymphocytes # (1.0-4.8) k/uL Sodium (137-145) mmol/L BUN (9-20) mg/dL Creatinine (0.66-1.25) mg/dL Glucose (74-99) mg/dL POC Glucose (mg/dL) 58 L (70-110) mg/dL Calcium (8.4-10.2) mg/dL Microbiology - Last 24 Hours (Table) 04/27/23 19:04 Gram Stain - Preliminary Sputum 04/25/23 15:58 Blood Culture - Preliminary Blood 04/25/23 15:50 Blood Culture - Preliminary Blood Assessment and Plan Assessment: 1. Acute kidney injury, nonoliguric secondary to hemodynamic ATN secondary to low blood pressure and hemodynamic instability with A. fib with RVR. Possible cardiorenal component as well. Patient is currently being diuresed. Blood pressure remains on the lower side 2. Chronic kidney disease NKF stage IIIB with baseline creatinine 1.3-1.5 mg/dL secondary to diabetic kidney disease 3. Pseudomonas pneumonia on recent admission on 04/06/2023 maintained on cefepime at home 4. Acute COPD exacerbation status post treatment and discharge about 10 days ago 5. Cardiomyopathy with ejection fraction 20-30%. Ischemic cardiomyopathy 6. Chronic systolic CHF with acute exacerbation 7. A. fib with RVR 8. COVID- positive on 04/19/2023 Plan: Continue with current dose of Lasix Add midodrine and try to maintain of levo fed Repeat labs in a.m.
[2023-04-28] MEDS: APIXABAN 2.5 MG TABLET PO SCH ×2 (08:46→16:38)
[2023-04-28] MEDS: ASCORBIC ACID 500 MG TAB PO SCH (08:46)
[2023-04-28] MEDS: ZINC SULFATE 220 MG CAP PO SCH (08:46)
[2023-04-28] MEDS: MIDODRINE 5 MG TAB PO SCH ×3 (08:47→17:42)
[2023-04-28] MEDS: CHOLECALCIFEROL 25 MCG (1000 IU) TABLET PO SCH (08:47)
[2023-04-28] MEDS: SYMBICORT 80-4.5 MCG INHALER INHALATION SCH ×2 (08:50→16:21)
[2023-04-28] MEDS: ALBUTEROL HFA INHALER INHALATION PRN ×2 (08:51→16:21)
[2023-04-28] MEDS ORDERED: DEXTROSE 50% SYRINGE 50 ML IVP PRN ×2 (08:58)
[2023-04-28] MEDS: LEVOTHYROXINE 112 MCG TAB PO SCH (09:24)
[2023-04-28] MEDS: METOPROLOL SUCCINATE (ER) 50 MG TAB.ER.24H PO SCH (09:24)
[2023-04-28] MEDS: LEVOTHYROXINE 125 MCG TAB PO SCH (09:24)
--- NOTE | 2023-04-28 10:08 | PN ---
PROGRESS NOTE SUBJECTIVE: A 77-year-old gentleman, who is admitted to hospital with coronavirus infection, atrial fibrillation, respiratory insufficiency. We have been consulted because of atrial fibrillation. This morning, heart rate is better controlled. He is on IV Cardizem 5 mg, which I am going to stop. He is on Toprol-XL 50 mg daily. If necessary, increase the dose to 75. OBJECTIVE: GENERAL: Comfortable at rest. VITAL SIGNS: Heart rate is 80 beats per minute. Blood pressure is 110/70, respiratory rate 18. CHEST: Reveals diminished air entry at the bases. HEART: Reveals first and second heart sounds. Irregular rhythm. EXTREMITIES: Reveals mild edema. Peripheral pulses are felt. LABORATORY DATA: Labs show a hemoglobin of 11.5, platelet count is 53. Potassium is 3.6, BUN is 47, creatinine is 2.3. ASSESSMENT: 1. Atrial fibrillation with controlled ventricular rate. 2. Coronavirus infection. 3. Thrombocytopenia. PLAN: I will stop the Cardizem. We will get hematology input regarding the thrombocytopenia. MMSYLVESTERL / NORAN: [id number] /
[2023-04-28] MEDS: methylPREDNISolone SOD SUCCI 40 MG/ML 1 ML VIAL IV SCH ×2 (10:11→17:41)
[2023-04-28] MEDS: SODIUM CHLORIDE 0.9% 500 ML 500 ML IV SCH (10:43)
[2023-04-28] MEDS: NOREPINEPHRINE 4 MG in SODIUM CHLORIDE 0.9% 250 ML IV SCH (10:44)
--- NOTE | 2023-04-28 10:53 | XR ---
EXAMINATION TYPE: XR chest 1V portable DATE OF EXAM: 04/28/2023 COMPARISON: 04/27/2023 INDICATION: CHF TECHNIQUE: Single frontal view of the chest is obtained. FINDINGS: The heart size is normal. The pulmonary vasculature has mildly increased lung markings present. Correlate for volume overload. Sternotomy wires are in the midline. IMPRESSION: 1. Clinical correlation for mild volume overload
[2023-04-28 11:43] LABS: Glucose,Whole Blood 220 mg/dL (70-110)
[2023-04-28] MEDS: INSULIN ASPART (NovoLOG) 100 UNIT/ML VIAL SQ SCH ×3 (11:48→21:46)
--- NOTE | 2023-04-28 12:15 | P.PN ---
Subjective Progress Note Date: 04/28/23 Principal diagnosis: Acute exacerbation of chronic systolic congestive heart failure, atrial fibrillation with RVR this is a 77-year-old white male, very familiar to my service, I have seen this patient many times in the past for history of chronic obstructive pulmonary disease, and recurrent diastolic congestive heart failure/chronic. Patient was last here last month, and he was treated for Pseudomonas pneumonia. Patient was discharged to rehab, and has been in rehab recently until yesterday patient was complaining of weakness, shortness of breath, he was sent to [facility] initially, and he was found in atrial fibrillation with RVR. Patient was also noted to be hypotensive. Patient has been receiving antibiotics in the form of redness cefepime via PICC line in his left upper extremity. At [facility] the patient was given Cardizem, and he was noted to be hypotensive, hence arrangements were made for the patient to transfer to [facility]. Patient was given fluid boluses while in the ER, and he developed some component of interstitial edema, at the same time the patient was placed on low- dose norepinephrine, admitted to the ICU, and this consult was initiated. Patient is on cefepime is also on vancomycin, he is yet to be seen by nephrology and infectious disease on consultation, patient is also on eliquis chronically. During my evaluation, the patient was on room air, he does have intermittent cough and wheezing.WC count is 8.1 hemoglobin is 12 electrolytes are normal BUN is 57 creatinine 2.15.baseline creatinine is in the range of 1.5 from the last admission.troponins were also noted to be elevated 0.33 follow-up troponin was 0.234.chest x-ray showed cardiomegaly, and mild interstitial infiltrates/edema. Patient was seen and evaluated on 04/27/2023, remains in the ICU, remains on 4 L nasal cannula, remains on Cardizem drip at 10 mg per hour remains on norepinephrine at 0.0-3 mcg/kg/m, IV fluids at KVO, patient is sleeping and dressing this morning, he had episodes of anxiety yesterday. Under control, patient is maintained on Xanax. Cardiology is planning to cut down his Cardizem down to 5 mg per hour, hopefully with good taper and possibly discontinue norepinephrine today. Overall the patient is doing much better today compared to yesterday. WBC count is 6 hemoglobin is 10.8 electrolytes are normal BUN is 51 creatinine 2.08, improving compared to his admission creatinine of 2.21. Chest x-ray is showing nonspecific interstitial bilateral changes patient is known to have history of nonspecific interstitial pneumonitis. And chronic diastolic congestive heart failure Reevaluated today on 04/28/2023, patient is having more symptoms of cough wheezing shortness of breath and chest tightness. Hence I started the patient on relatively high-dose of steroids. Patient is now off Cardizem, he is off norepinephrine, continues to cough and wheeze and continues to have chest tightness his CBC is relatively normal in the class abnormal BUN is 47 creatinine 2.31, slightly worse compared to yesterday. Chest x-ray showed minimal interstitial edema and pulmonary vascular congestion patient is on di uretics, he is also on bronchodilators, and steroids were added today Objective - Vital Signs Vital signs: Vital Signs Temp 97.9 F 04/28/23 08:00 Pulse 80 04/28/23 11:00 Resp 20 04/28/23 11:00 BP 106/76 04/28/23 11:00 Pulse Ox 95 04/28/23 11:00 FiO2 Intake & Output 04/27/23 04/28/23 04/28/23 18:59 06:59 18:59 Intake Total 1636.095 291.330 288.942 Output Total 1634 820 150 Balance 2.095 -528.670 138.942 Weight 105.1 kg Intake: IV 220 240 80 Sodium Chloride 0.9% 500 220 240 80 ml 500 ml @ 20 mls/hr IV .Q24H MARIVEL Rx#:[id number] Intake, IV Titration 300.095 51.330 8.942 Amount Diltiazem 125 mg In 134.583 0 Sodium Chloride 0.9% 100 ml @ Per Protocol IV .Q0M MARIVEL Rx#:[id number] Norepinephrine 4 mg In 165.512 51.330 8.942 Sodium Chloride 0.9% 250 ml @ 0.03 MCG/KG/MIN 11. 922 mls/hr IV .[id number] MARIVEL Rx#:[id number] Oral 1116 200 Output: Urine 1634 820 150 Other: Voiding Method Indwelling Catheter Indwelling Catheter Indwelling Catheter - Exam GENERAL EXAM: Alert, pleasant 77-year-old male, on room air,not in any distress. On 2 L nasal cannula. HEAD: Normocephalic. EYES: Normal reaction of pupils, equal size. NOSE: Clear with pink turbinates. THROAT: No erythema or exudates. NECK: No masses, no JVD. CHEST: No chest wall deformity. LUNGS: Diminished breath sounds rhonchi and wheezes noted bilaterally. More so on forced expiratory maneuver. CVS:irregular irregular rhythm. S1 and S2 normal with no audible murmur, regular rhythm. ABDOMEN: No hepatosplenomegaly, normal bowel sounds, no guarding or rigidity. SKIN: No rashes CENTRAL NERVOUS SYSTEM: alert and oriented 3, no gross focal deficit psychiatric: Normal mood affect and normal mental status examination. EXTREMITIES: Trace of bipedal edema - Labs CBC & Chem 7: 04/28/23 03:54 04/28/23 03:54 Labs: Abnormal Lab Results - Last 24 Hours (Table) 04/27/23 04/27/23 04/28/23 Range/Units 16:35 21:44 03:54 RBC 3.54 L (4.30-5.90) m/uL Hgb 11.5 L (13.0-17.5) gm/dL Hct 34.5 L (39.0-53.0) % Plt Count 53 L (150-450) k/uL Lymphocytes # 0.2 L (1.0-4.8) k/uL Sodium (137-145) mmol/L BUN (9-20) mg/dL Creatinine (0.66-1.25) mg/dL Glucose (74-99) mg/dL POC Glucose (mg/dL) 151 H 116 H (70-110) mg/dL Calcium (8.4-10.2) mg/dL 04/28/23 04/28/23 04/28/23 Range/Units 03:54 05:04 05:25 RBC (4.30-5.90) m/uL Hgb (13.0-17.5) gm/dL Hct (39.0-53.0) % Plt Count (150-450) k/uL Lymphocytes # (1.0-4.8) k/uL Sodium 133 L (137-145) mmol/L BUN 47 H (9-20) mg/dL Creatinine 2.31 H (0.66-1.25) mg/dL Glucose 44 L* (74-99) mg/dL POC Glucose (mg/dL) 52 L 58 L (70-110) mg/dL Calcium 7.6 L (8.4-10.2) mg/dL 04/28/23 Range/Units 11:42 RBC (4.30-5.90) m/uL Hgb (13.0-17.5) gm/dL Hct (39.0-53.0) % Plt Count (150-450) k/uL Lymphocytes # (1.0-4.8) k/uL Sodium (137-145) mmol/L BUN (9-20) mg/dL Creatinine (0.66-1.25) mg/dL Glucose (74-99) mg/dL POC Glucose (mg/dL) 220 H (70-110) mg/dL Calcium (8.4-10.2) mg/dL Microbiology - Last 24 Hours (Table) 04/27/23 19:04 Gram Stain - Preliminary Sputum 04/25/23 15:58 Blood Culture - Preliminary Blood 04/25/23 15:50 Blood Culture - Preliminary Blood Assessment and Plan Assessment: impression: Chronic atrial fibrillation, patient presented with atrial fibrillation with RVR. Acute exacerbation of chronic systolic congestive heart failure, ejection fraction 30-35% on 03/29/2023 Acute exacerbation of COPD recent history of pneumonia secondary to pseudomonas aeruginosa, on cefepime. Moderate severe aortic stenosis with pulmonary hypertension Chronic kidney disease stage III Former smoker History of coronary artery disease and previous CABG and stenting dyslipidemia Hypothyroidism Poor overall functional performance based on the above-mentioned multiple comorbidities recommendation: Continue to monitor in the ICU for now. Continue bronchodilators. Add Solu-Medrol Continue Eliquis. continue antibiotics including cefepime patient had recent history of some pseudomonal pneumonia so far the sputum is nondiagnostic and blood cultures are negative on this admission continue metoprolol Continue diuretics Lasix 40 mg IV push twice a day continue GI and DVT prophylaxis We will continue to follow. Time with Patient: Less than 30
--- NOTE | 2023-04-28 12:28 | P.CONS ---
History of Present Illness - Reason for Consult Consult date: 04/28/23 Thrombocytopenia - History of Present Illness The patient is a 77-year-old white male with multiple medical problems. He had been previously seen by our service for anemia due to upper GI bleed. The patient was admitted this time with congestive heart failure exacerbation, as well as A. fib with RVR. During this admission his platelets were lower than normal, on presentation, and had shown a decline since to 53,000, leading to this consult. The patient is on Eliquis. The patient was recently admitted for pseudomonas sepsis, in was treated for the same with beta-lactam IV antibiotics in which he is continuing. His prior to this admission he was also diagnosed with COVID Review of patient's labs show intermittent mild thrombocythemia typically between 100-150,000, associated with acute illnesses, followed by recovery. Patient stated counts during his recent prior admission was in that same range, on presentation, followed by decline ordered by recovery 216,000 prior to this admission. Patient's coags are normal. His liver ultrasound in 12/19 had shown liver enlargement. Recent CTA has shown some evidence of ascites. Echocardiogram showed markedly reduced ejection fraction at 30-35%. Chest x-ray was compatible with fluid overload. He has not had any unusual bleeding or bruising, as disc ussed with the nursing service. Review of Systems Constitutional: Reports fatigue, Reports weakness Eyes: denies blurred vision, denies pain Ears: deny: decreased hearing, ear discharge, earache, tinnitus Ears, nose, mouth and throat: Denies headache, Denies sore throat Cardiovascular: Reports as per HPI, Reports edema, Reports irregular heart beat, Reports shortness of breath Respiratory: Reports dyspnea Gastrointestinal: Denies abdominal pain, Denies diarrhea, Denies nausea, Denies vomiting Genitourinary: Reports as per HPI Musculoskeletal: Reports muscle weakness Integumentary: Denies pruritus, Denies rash Neurological: Reports weakness Psychiatric: Denies anxiety, Denies depression Endocrine: Reports fatigue, Reports palpitations Hematologic/Lymphatic: Reports as per HPI Past Medical History Past Medical History: Atrial Fibrillation, Coronary Artery Disease (CAD), Heart Failure, COPD, CVA/TIA, Diabetes Mellitus, Hypertension, Myocardial Infarction (MS) Additional Past Medical History / Comment(s): left knee cap broken, pancreatitis, /gallstones, Patient reports having stroke like symptoms after injection in knee, Last Myocardial Infarction Date:: 2017 History of Any Multi-Drug Resistant Organisms: MRSA Year Discovered:: 10/01/22 MDRO Source:: Sputum Past Surgical History: Cholecystectomy, Coronary Bypass/CABG, Heart Cath eterization With Stent, Hernia Repair, Orthopedic Surgery Additional Past Surgical History / Comment(s): lt knee replacement(total of 4 sx), colonoscopy, Left knee cap removal with antibiotic spacers placed, Past Anesthesia/Blood Transfusion Reactions: No Reported Reaction Date of Last Stent Placement:: 10/2015 Past Psychological History: No Psychological Hx Reported Additional Psychological History / Comment(s): Pt resides with his spouse. He uses a walker to ambulate. Smoking Status: Former smoker Past Alcohol Use History: Occasional Additional Past Alcohol Use History / Comment(s): Pt started smoking as teen and quit 1983 smoked 2 ppd. Pt usually has one drink a night. Past Drug Use History: None Reported - Past Family History Father Family Medical History: Diabetes Mellitus Mother Family Medical History: CVA/TIA, Hypertension Medications and Allergies Home Medications Medication Instructions Recorded Confirmed Type RX: allopurinoL [Zyloprim] 300 mg PO DAILY@0800 08/07/17 04/25/23 History RX: Gabapentin 1,200 mg PO TID@1400,1800,2200 10/02/18 04/25/23 History RX: Levothyroxine Sodium 112 mcg PO DAILY@0800 10/02/18 04/25/23 History [Synthroid] RX: Levothyroxine Sodium 125 mcg PO DAILY@0800 10/02/18 04/25/23 History [Synthroid] RX: Nitroglycerin Sl Tabs 0.4 mg SL Q5M PRN 10/02/18 04/25/23 History [Nitrostat] RX: Atorvastatin [Lipitor] 40 mg PO HS@199910/19/21 04/25/23 History RX: Apixaban [Eliquis] 5 mg PO BID@0800,1700 09/28/22 04/25/23 History RX: Budesonide/Formoterol Fumarate 2 puff INHALATION RT-BID@0800,1700 09/28/22 04/25/23 History [Symbicort 80-4.5 Mcg Inhaler] RX: HYDROcodone/APAP 7.5-325MG 1 tab PO BID PRN 09/28/22 04/25/23 History [[place] 7.5-325] RX: Magnesium Oxide [Mag-Ox] 400 mg PO BID@0800,1700 09/28/22 04/25/23 History RX: Meclizine [Antivert] 12.5 mg PO TID@0700,1200,1700 09/28/22 04/25/23 History RX: Albuterol Sulfate [Proventil 1 puff INHALATION RT-Q8H PRN 11/22/22 04/25/23 History Hfa] RX: Omeprazole 20 mg PO DAILY@0800 11/22/22 04/25/23 History RX: Glimepiride [Amaryl] 2 mg PO BID@0800,1700 03/29/23 04/25/23 History Insulin Glargine-Yfgn [Semglee 40 units SQ DAILY@0800 04/25/23 04/25/23 History (Yfgn) Pen] Ipratropium-Albuterol Nebulize 3 ml INHALATION RT-Q2H PRN 04/25/23 04/25/23 History [Duoneb 0.5 mg-3 mg/3 ml Soln] Molnupiravir [Molnupiravir (Eua)] 800 mg PO BID@0700,1900 04/25/23 04/25/23 Hist ory RX: Aspirin 81 mg PO DAILY@0730 04/25/23 04/25/23 History RX: Cefepime [Maxipime] 2 gm IVPB BID@0900,2100 04/25/23 04/25/23 History RX: Dapagliflozin Propanediol 10 mg PO DAILY@0800 04/25/23 04/25/23 History [Farxiga] RX: Furosemide [Lasix] 40 mg PO BID@0700,1300 04/25/23 04/25/23 History RX: Insulin Lispro See Protocol SQ QID@07,12,,04/25/23 04/25/23 History RX: Ipratropium-Albuterol Nebulize 3 ml INHALATION RT-QID@07,12,17,21 04/25/23 04/25/23 History [Duoneb 0.5 mg-3 mg/3 ml Soln] RX: Metoprolol Succinate (ER) 50 mg PO DAILY@0800 04/25/23 04/25/23 History [Toprol XL] RX: Nystatin 100,000 Unit/ml Susp 500,000 unit PO QID@07,12,17,22 04/25/23 04/25/23 History [Mycostatin Oral Susp] RX: Potassium Chloride ER [K-Dur 20 meq PO BID@0800,1700 04/25/23 04/25/23 History 20] Allergies Allergy/AdvReac Type Severity Reaction Status Date / Time Sulfa (Sulfonamide Allergy Mild Rash/Hives Verified 04/25/23 16:17 Antibiotics) cephalexin [From Keflex] Allergy Unknown Verified 04/25/23 16:17 clopidogrel [From Plavix] Allergy Rash/Hives Verified 04/25/23 16:17 codeine Allergy Rash/Nausea Verified 04/25/23 16:17 & Vomiting Iodine and Iodide Containing Allergy Rash/Hives Verified 04/25/23 16:17 Produc levofloxacin [From Levaquin] Allergy urticaria/r Verified 04/25/23 16:17 belle shellfish derived [Shellfish] Allergy urticaria/r Verified 04/25/23 16:17 belle lisinopril AdvReac Angiodema Verified 04/25/23 16:17 of tongue oxycodone AdvReac Hallucinati Verified 04/25/23 16:17 ons solifenacin AdvReac Nausea & Verified 04/25/23 16:17 Vomiting Physical Exam Vitals: Vital Signs Temp Pulse Resp BP Pulse Ox 04/28/23 12:00 97.6 F 96 14 105/68 94 L 04/28/23 11:00 80 20 106/76 95 04/28/23 10:00 92 16 99/61 95 04/28/23 09:00 87 17 97/75 95 04/28/23 08:55 95 04/28/23 08:00 97.9 F 78 14 87/74 92 L 04/28/23 07:00 106 H 17 134/76 92 L 04/28/23 06:30 91 20 80/60 94 L 04/28/23 06:00 80 17 86/59 94 L 04/28/23 05:30 89 18 89/59 94 L 04/28/23 05:00 90 22 92/64 95 04/28/23 04:30 102 H 24 94/51 94 L 04/28/23 04:00 98.5 F 105 H 21 85/59 95 04/28/23 03:30 110 H 23 93/68 97 04/28/23 03:00 102 H 21 99/59 97 04/28/23 02:30 108 H 25 H 89/52 95 04/28/23 02:00 112 H 25 H 82/58 95 04/28/23 01:30 117 H 26 H 92/61 94 L 04/28/23 01:00 104 H 25 H 92/63 93 L 04/28/23 00:30 105 H 23 100/69 93 L 04/28/23 00:00 98.8 F 112 H 17 101/65 95 04/27/23 23:30 96 21 94/73 95 04/27/23 23:00 100 22 91/57 95 04/27/23 22:30 98 20 100/60 94 L 04/27/23 22:00 90 19 81/59 95 04/27/23 21:30 95 24 97/75 94 L 04/27/23 21:00 101 H 20 89/52 94 L 04/27/23 20:30 96 15 98/59 94 L 04/27/23 20:00 98.4 F 87 23 78/68 93 L 04/27/23 19:15 96 22 93/70 92 L 04/27/23 19:00 104 H 20 105/59 90 L 04/27/23 18:45 90 25 H 96/53 94 L 04/27/23 18:30 95 25 H 83/61 91 L 04/27/23 18:15 87 14 104/60 91 L 04/27/23 18:00 92 21 101/65 92 L 04/27/23 17:45 92 21 86/57 95 04/27/23 17:30 89 19 88/63 94 L 04/27/23 17:15 81 18 103/66 95 04/27/23 17:00 86 20 97/54 94 L 04/27/23 16:45 80 18 83/61 95 04/27/23 16:30 86 21 99/60 93 L 04/27/23 16:15 82 18 107/62 93 L 04/27/23 16:00 99.3 F 84 18 95/58 93 L 04/27/23 15:45 83 18 92/59 93 L 04/27/23 15:30 83 18 83/61 93 L 04/27/23 15:15 84 21 100/54 94 L 04/27/23 15:00 82 19 96/62 94 L 04/27/23 14:45 98 18 92/69 95 04/27/23 14:30 94 21 96/53 95 04/27/23 14:15 96 22 96/61 04/27/23 14:00 80 21 93/68 92 L 04/27/23 13:45 92 22 102/72 92 L 04/27/23 13:30 95 17 107/63 94 L 04/27/23 13:15 94 24 92/65 95 04/27/23 13:00 98 27 H 97/56 95 04/27/23 12:45 84 23 100/63 95 04/27/23 12:30 89 21 96/63 97 Intake and Output 04/27/23 04/28/23 04/28/23 22:59 06:59 14:59 Intake Total 741.532 207.089 288.942 Output Total 1116 420 150 Balance -374.468 -212.911 138.942 Intake: IV 140 180 80 Sodium Chloride 0.9% 500 140 180 80 ml 500 ml @ 20 mls/hr IV .Q24H [facility] Rx#:[id number] Intake, IV Titration 91.532 27.089 8.942 Amount Diltiazem 125 mg In 0 Sodium Chloride 0.9% 100 ml @ Per Protocol IV .Q0M [facility] Rx#:[id number] Norepinephrine 4 mg In 91.532 27.089 8.942 Sodium Chloride 0.9% 250 ml @ 0.03 MCG/KG/MIN 11. 922 mls/hr IV .[id number] [facility] Rx#:[id number] Oral 510 200 Output: Urine 1116 420 150 Other: Voiding Method Indwelling Catheter Indwelling Catheter Indwelling Catheter Weight 105.1 kg - Constitutional General appearance: mild distress (Mildly short of breath with conversation, while sitting up in bed) - EENT Eyes: EOMI, PERRLA ENT: hearing grossly normal, normal oropharynx - Neck Neck: no lymphadenopathy Thyroid: bilateral: normal size - Respiratory Respiratory: bilateral: diminished (at bases), rales (At bases), wheezing (At bases) - Cardiovascular Rhythm: regularly irregular Heart sounds: normal: S1, S2 - Integumentary Integumentary: normal - Neurologic Neurologic: CNII-XII intact - Musculoskeletal 2+ bilateral lower extremity edema Musculoskeletal: generalized weakness, strength equal bilaterally - Psychiatric Psychiatric: A&O x's 3, appropriate affect Results CBC & Chem 7: 04/28/23 03:54 04/28/23 03:54 Labs: Abnormal Lab Results - Last 24 Hours (Table) 04/27/23 04/27/23 04/28/23 Range/Units 16:35 21:44 03:54 RBC 3.54 L (4.30-5.90) m/uL Hgb 11.5 L (13.0-17.5) gm/dL Hct 34.5 L (39.0-53.0) % Plt Count 53 L (150-450) k/uL Lymphocytes # 0.2 L (1.0-4.8) k/uL Sodium (137-145) mmol/L BUN (9-20) mg/dL Creatinine (0.66-1.25) mg/dL Glucose (74-99) mg/dL POC Glucose (mg/dL) 151 H 116 H (70-110) mg/dL Calcium (8.4-10.2) mg/dL 04/28/23 04/28/23 04/28/23 Range/Units 03:54 05:04 05:25 RBC (4.30-5.90) m/uL Hgb (13.0-17.5) gm/dL Hct (39.0-53.0) % Plt Count (150-450) k/uL Lymphocytes # (1.0-4.8) k/uL Sodium 133 L (137-145) mmol/L BUN 47 H (9-20) mg/dL Creatinine 2.31 H (0.66-1.25) mg/dL Glucose 44 L* (74-99) mg/dL POC Glucose (mg/dL) 52 L 58 L (70-110) mg/dL Calcium 7.6 L (8.4-10.2) mg/dL 04/28/23 Range/Units 11:42 RBC (4.30-5.90) m/uL Hgb (13.0-17.5) gm/dL Hct (39.0-53.0) % Plt Count (150-450) k/uL Lymphocytes # (1.0-4.8) k/uL Sodium (137-145) mmol/L BUN (9-20) mg/dL Creatinine (0.66-1.25) mg/dL Glucose (74-99) mg/dL POC Glucose (mg/dL) 220 H (70-110) mg/dL Calcium (8.4-10.2) mg/dL Microbiology - Last 24 Hours (Table) 04/27/23 19:04 Gram Stain - Preliminary Sputum 04/25/23 15:58 Blood Culture - Preliminary Blood 04/25/23 15:50 Blood Culture - Preliminary Blood Comments: Echocardiogram report reviewed Chest x-ray: report reviewed CT scan - chest: report reviewed US - abdomen: report reviewed Assessment and Plan (1) Thrombocytopenia Narrative/Plan: This is felt to be multifactorial. The patient has had previous episodes of mild pancytopenia, with platelet counts typically in the 100-150,000, associated with acute illnesses causing hospital admissions. Does have CHF, and hepatomegaly on prior ultrasound. Given his medical history, he likely has some underlying baseline compromise of the platelet line due to her disease from fatty infiltration and/or congestive hepatomegaly due to his CHF. Therefore his platelet counts while typically normal when he is in a normal state of health, drop in conditions of additional stress. During this admission they drop his to a greater degree, likely due to recent pseudomonas bacteremia, beta-lactamase antibiotic use, followed by COVID, and then another CHF exacerbation. - Labs will be ordered to check for deficiency states, and fibrinogen level. - Review of order history shows no evidence of exposure to heparin or heparinoids. This was further confirmed with nursing. - Assuming above-mentioned labs are negative, the expectation would be that his platelet counts will return back to baseline as his acute condition improves. - Case discussed with cardiology. The patient can be continued on anticoagulation and antiplatelet therapy as long as his platelet counts are greater than 50,000. If they drop below 50,000, since recovery in the short- term is anticipated, the patient can be managed by temporary cessation of his anticoagulation/antiplatelet agent or with platelet transfusions if stopping of the medications is felt to be higher risk. Continue to monitor. Current Visit: Yes Status: Acute Code(s): D69.6 - THROMBOCYTOPENIA, UNSPECIFIED SNOMED Code(s): 798786713 Plan: Defer to the admitting service and other consultants for management of his multiple other medical problems.
[2023-04-28] MEDS: GABAPENTIN 400 MG CAP PO SCH ×3 (12:43→21:46)
--- NOTE | 2023-04-28 13:08 | P.PN ---
Subjective Progress Note Date: 04/28/23 Patient is a 69-year-old male came in with the complaints of weakness of his of breath. Found to be in congestive heart failure exacerbation. Patient was started on IV Lasix. Patient the was receiving IV antibiotics as an outpatient cefepime for pseudomonas pneumonia recently. Patient was also diagnosed with COVID-19. Patient Has acute renal failure with creatinine of around 2.5 baseline is around 1.3. Patient does have chronic kidney disease stage III does have history of can start failure chronic systolic dysfunction with the EF of around 30-35%. Patient does have severe pulmonary hypertension and severe stenosis patient is hyponatremic as well with mildly elevated troponins. Patient is presently on 2 L of oxygen was on 4 L of oxygen. Patient does have history of atrial fibrillation presently in A. fib with heart on 129. 04/27/2023 Patient is evaluated in the intensive care unit today continues to be short of breath and fatigued. Patient was diagnosed with COVID outpatient on the at [facility]. Continues on IV cefepime. Heart rate controlled in the 80-90s patient continues on IV cardizem and resumed on eliquis with renal dosing. Patient creatinine improved slightly to 2.08 today. Continues on levophed and blood pressure in the 90s systolic. 04/28/2023 Patient evaluated today in the ICU remains fatigued. Being treated for pseudomonas in the sputum with IV cefepime diagnosed prior admission. ID is following. Patient also covid positive. Blood glucose in the 40s this morning amaryl is discontinued and patient is given glucerna TID with meals. B12 low normal at 298 and started on oral supplementation. Platelet count is low today at 53, hematology consulted and patient can continue on eliquis if platelet count remains above 50. Cardizem gtt and levophed are currently off. Blood pressure in the high 90s to low 100 systolic. Afebrile, on 2L nasal cannula. Review of Systems Constitutional: Reports fatigue,denied any fever. Cardio vascular: denied any chest pain, palpitations Gastrointestinal: denied any nausea, vomiting, diarrhea Pulmonary: Reports shortness of breath and cough with green/brown sputum Neurologic denied any new focal deficits Weakness All inpatient medications were reviewed and appropriate changes in these medications as dictated in the interval history and assessment and plan. PHYSICAL EXAMINATION: GENERAL: The patient is alert and oriented x3, not in any acute distress. Well developed, well nourished. HEENT: Pupils are round and equally reacting to light. EOMI. No scleral icterus. No conjunctival pallor. Normocephalic, atraumatic. No pharyngeal erythema. No thyromegaly. CARDIOVASCULAR: S1 and S2 present. No murmurs, rubs, or gallops. PULMONARY: Bilateral rhonchi ABDOMEN: Soft, nontender, nondistended, normoactive bowel sounds. No palpable organomegaly. MUSCULOSKELETAL: No joint swelling or deformity. EXTREMITIES: No cyanosis, clubbing, or pedal edema. NEUROLOGICAL: Gross neurological examination did not reveal any focal deficits. Generalized weakness SKIN: No rashes. Assessment and plan -Acute hypoxic respiratory failure multifactorial due to acute CHF, pseudomonas pneumonia and covid infection -Acute renal failure due to ATN from hypotension -Hypovolemic shock requiring vasopressor support currently on hold with improvement in blood pressure -Recent Pseudomonas pneumonia for which the patient is on IV cefepime -Atrial fibrillation paroxysmal: with RVR on admission -COPD with acute exacerbation -COVID-19 pneumonia -Thrombocytopenia felt to be multifactorial due to combination of cefepime effects, and recent illness -Moderate aortic stenosis and pulmonary hypertension -Ischemic cardiomyopathy -Chronic kidney disease stage III secondary to diabetic nephropathy -Coronary artery disease with CABG in the past -Hypothyroidism DVT prophylaxis: On anticoagulation GI prophylaxis Full Code Plan Hematology recommending to hold eliquis short term if platlets drop below 50 expecting plt count to improve with recovery of acute illness. Continue antibiotics and supportive care pending final sputum and blood cultures Sputum culture ordered Follow up labs in AM PT/OT consultation Patient is being followed by [facility] consultations including pulmonary, infectious disease, nephrology, cardiology and hematology The impression and plan of care has been dictated by Morenita Adrian, Nurse Practitioner as directed. Dr. Yolanda MD I have performed a history and physical examination and medical decision making of this patient, discussed the same with the dictator, and agree with the dictators assessment and plan as written, documented as a scribe. Based on total visit time, I have performed more than 50% of this visit. Objective - Vital Signs Vital signs: Vital Signs Temp 98.5 F 04/28/23 04:00 Pulse 106 H 04/28/23 07:00 Resp 17 04/28/23 07:00 BP 134/76 04/28/23 07:00 Pulse Ox 95 07/02/23 08:55 FiO2 Intake & Output 04/27/23 04/28/23 04/28/23 18:59 06:59 18:59 Intake Total 1636.095 291.330 8.942 Output Total 1634 820 Balance 2.095 -528.670 8.942 Weight 105.1 kg Intake: IV 220 240 Sodium Chloride 0.9% 500 220 240 ml 500 ml @ 20 mls/hr IV .Q24H [facility] Rx#:[id number] Intake, IV Titration 300.095 51.330 8.942 Amount Diltiazem 125 mg In 134.583 0 Sodium Chloride 0.9% 100 ml @ Per Protocol IV .Q0M [facility] Rx#:[id number] Norepinephrine 4 mg In 165.512 51.330 8.942 Sodium Chloride 0.9% 250 ml @ 0.03 MCG/KG/MIN 11. 922 mls/hr IV .[id number] [facility] Rx#:[id number] Oral 1116 Output: Urine 1634 820 Other: Voiding Method Indwelling Catheter Indwelling Catheter - Labs CBC & Chem 7: 04/28/23 03:54 04/28/23 03:54 Labs: Abnormal Lab Results - Last 24 Hours (Table) 04/27/23 04/27/23 04/27/23 Range/Units 11:44 16:35 21:44 RBC (4.30-5.90) m/uL Hgb (13.0-17.5) gm/dL Hct (39.0-53.0) % Plt Count (150-450) k/uL Lymphocytes # (1.0-4.8) k/uL Sodium (137-145) mmol/L BUN (9-20) mg/dL Creatinine (0.66-1.25) mg/dL Glucose (74-99) mg/dL POC Glucose (mg/dL) 136 H 151 H 116 H (70-110) mg/dL Calcium (8.4-10.2) mg/dL 04/28/23 04/28/23 04/28/23 Range/Units 03:54 03:54 05:04 RBC 3.54 L (4.30-5.90) m/uL Hgb 11.5 L (13.0-17.5) gm/dL Hct 34.5 L (39.0-53.0) % Plt Count 53 L (150-450) k/uL Lymphocytes # 0.2 L (1.0-4.8) k/uL Sodium 133 L (137-145) mmol/L BUN 47 H (9-20) mg/dL Creatinine 2.31 H (0.66-1.25) mg/dL Glucose 44 L* (74-99) mg/dL POC Glucose (mg/dL) 52 L (70-110) mg/dL Calcium 7.6 L (8.4-10.2) mg/dL 04/28/23 Range/Units 05:25 RBC (4.30-5.90) m/uL Hgb (13.0-17.5) gm/dL Hct (39.0-53.0) % Plt Count (150-450) k/uL Lymphocytes # (1.0-4.8) k/uL Sodium (137-145) mmol/L BUN (9-20) mg/dL Creatinine (0.66-1.25) mg/dL Glucose (74-99) mg/dL POC Glucose (mg/dL) 58 L (70-110) mg/dL Calcium (8.4-10.2) mg/dL Microbiology - Last 24 Hours (Table) 04/27/23 19:04 Gram Stain - Preliminary Sputum 04/25/23 15:58 Blood Culture - Preliminary Blood 04/25/23 15:50 Blood Culture - Preliminary Blood Assessment and Plan Time with Patient: Less than 30
[2023-04-28 16:33] LABS: Glucose,Whole Blood 247 mg/dL (70-110)
--- NOTE | 2023-04-28 17:02 | P.PN ---
Subjective Progress Note Date: 04/28/23 Principal diagnosis: Pneumonia Patient is a 77-year male with multiple comorbidities including COPD diastolic heart failure was recently diagnosed with Pseudomonas pneumonia, patient was subsequently diagnosed with a [facility] has been brought into the hospital for shortness of breath A. fib with RVR and did have hypotension on today's evaluation that is 04/28/2023, the patient remains to be afebrile, patient is currently breathing comfortably on 3 L nasal cannula oxygen patient is currently off both Cardizem and Levophed, patient denies any chest pain did have a cough and bringing up some sputum no nausea vomiting abdominal pain or diarrhea Objective - Vital Signs Vital signs: Vital Signs Temp 98.8 F 04/28/23 16:00 Pulse 91 04/28/23 16:00 Resp 16 04/28/23 16:00 BP 103/71 04/28/23 16:00 Pulse Ox 93 L 04/28/23 16:00 FiO2 Intake & Output 04/27/23 04/28/23 04/28/23 18:59 06:59 18:59 Intake Total 1636.095 291.330 638.942 Output Total 1634 820 320 Balance 2.095 -528.670 318.942 Weight 105.1 kg Intake: IV 220 240 180 Sodium Chloride 0.9% 500 220 240 180 ml 500 ml @ 20 mls/hr IV .Q24H [facility] Rx#:[id number] Intake, IV Titration 300.095 51.330 8.942 Amount Diltiazem 125 mg In 134.583 0 Sodium Chloride 0.9% 100 ml @ Per Protocol IV .Q0M [facility] Rx#:[id number] Norepinephrine 4 mg In 165.512 51.330 8.942 Sodium Chloride 0.9% 250 ml @ 0.03 MCG/KG/MIN 11. 922 mls/hr IV .[id number] [facility] Rx#:[id number] Oral 1116 450 Output: Urine 1634 820 320 Other: Voiding Method Indwelling Catheter Indwelling Catheter Indwelling Catheter - Exam GENERAL DESCRIPTION: An elderly male lying in bed in no distress RESPIRATORY SYSTEM: Unlabored breathing , bilateral expiratory wheezes HEART: S1 S2 regular rate and rhythm , ABDOMEN: Soft , no tenderness EXTREMITIES: No edema feet - Labs CBC & Chem 7: 04/28/23 03:54 04/28/23 03:54 Labs: Abnormal Lab Results - Last 24 Hours (Table) 04/27/23 04/28/23 04/28/23 Range/Units 21:44 03:54 03:54 RBC 3.54 L (4.30-5.90) m/uL Hgb 11.5 L (13.0-17.5) gm/dL Hct 34.5 L (39.0-53.0) % Plt Count 53 L (150-450) k/uL Lymphocytes # 0.2 L (1.0-4.8) k/uL Fibrinogen (200-500) mg/dL Sodium 133 L (137-145) mmol/L BUN 47 H (9-20) mg/dL Creatinine 2.31 H (0.66-1.25) mg/dL Glucose 44 L* (74-99) mg/dL POC Glucose (mg/dL) 116 H (70-110) mg/dL Calcium 7.6 L (8.4-10.2) mg/dL 04/28/23 04/28/23 04/28/23 Range/Units 03:54 05:04 05:25 RBC (4.30-5.90) m/uL Hgb (13.0-17.5) gm/dL Hct (39.0-53.0) % Plt Count (150-450) k/uL Lymphocytes # (1.0-4.8) k/uL Fibrinogen 644 H (200-500) mg/dL Sodium (137-145) mmol/L BUN (9-20) mg/dL Creatinine (0.66-1.25) mg/dL Glucose (74-99) mg/dL POC Glucose (mg/dL) 52 L 58 L (70-110) mg/dL Calcium (8.4-10.2) mg/dL 04/28/23 04/28/23 Range/Units 11:42 16:31 RBC (4.30-5.90) m/uL Hgb (13.0-17.5) gm/dL Hct (39.0-53.0) % Plt Count (150-450) k/uL Lymphocytes # (1.0-4.8) k/uL Fibrinogen (200-500) mg/dL Sodium (137-145) mmol/L BUN (9-20) mg/dL Creatinine (0.66-1.25) mg/dL Glucose (74-99) mg/dL POC Glucose (mg/dL) 220 H 247 H (70-110) mg/dL Calcium (8.4-10.2) mg/dL Microbiology - Last 24 Hours (Table) 04/27/23 19:04 Gram Stain - Preliminary Sputum 04/25/23 15:58 Blood Culture - Preliminary Blood 04/25/23 15:50 Blood Culture - Preliminary Blood Assessment and Plan (1) COVID-19 Current Visit: Yes Status: Acute Code(s): U07.1 - COVID-19 SNOMED Code(s): 927192673 (2) Pneumonia Current Visit: Yes Status: Acute Code(s): J18.9 - PNEUMONIA, UNSPECIFIED ORGANISM SNOMED Code(s): 004251627 Plan: 1patient was in the hospital with increasing shortness of breath which is likely multifactorial possibly related to underlying worsening of diastolic heart failure from A-fib with RVR clinically doubt any worsening pneumonia the patient did have positive COVID 19 and may be of possibly contributing however chest x-ray was negative for any pneumonia patient not running any fever did have a normal white count with mild lymphopenia. Continue the current supportive treatment 2-patient did have some clinical improvement and will continue with cefepime while waiting for repeat sputum culture to be finalized Time with Patient: Less than 30
[2023-04-28 21:11] LABS: Glucose,Whole Blood 421 mg/dL (70-110)
[2023-04-28 21:11] LABS: Glucose,Whole Blood 423 mg/dL (70-110)
[2023-04-28] MEDS ORDERED: INSULIN DETEMIR (LEVEMIR) 100 UNIT/ML SYR SQ ONE (21:35)
[2023-04-28] MEDS: ATORVASTATIN 40 MG TAB PO SCH (21:46)
[2023-04-29 02:00] LABS: Glucose,Whole Blood 451 mg/dL (70-110)
[2023-04-29] MEDS ORDERED: INSULIN ASPART (NovoLOG) 100 UNIT/ML VIAL SQ ONE (02:36)
[2023-04-29] MEDS ORDERED: DEXTROSE 50% SYRINGE 50 ML IVP PRN ×4 (02:43→05:45)
[2023-04-29 03:00] LABS: Glucose,Whole Blood 452 mg/dL (70-110)
[2023-04-29] MEDS: INSULIN ASPART (NovoLOG) 100 UNIT/ML VIAL SQ SCH ×6 (03:00→21:09)
[2023-04-29] MEDS: methylPREDNISolone SOD SUCCI 40 MG/ML 1 ML VIAL IV SCH ×3 (03:00→16:33)
[2023-04-29 05:12] LABS: Glucose,Whole Blood 376 mg/dL (70-110)
[2023-04-29 06:06] LABS: Glucose,Whole Blood 322 mg/dL (70-110)
[2023-04-29] MEDS: CEFEPIME 2 GM in SODIUM CHLORIDE 0.9% 100 ML IVPB SCH ×2 (06:27→16:36)
[2023-04-29 06:29] LABS: Basophils % (A) 0 %; Eosinophils % (A) 1 %; HCT 31.2 % (39.0-53.0); Hypochromasia Slight; Lymphocytes # (A) 0.2 k/uL (1.0-4.8); Lymphocytes % (A) 7 %; MCH 31.6 pg (25.0-35.0); MCHC 32.2 g/dL (31.0-37.0); MCV 98.3 fL (80.0-100.0); Mean Platelet Volume 9.1; Monocytes # (A) 0.1 k/uL (0-1.0); Monocytes % (A) 5 %; Neutrophils # (A) 2.1 k/uL (1.3-7.7); Neutrophils % (A) 84 %; Poikilocytosis Slight; RBC 3.17 m/uL (4.30-5.90); RDW 14.9 % (11.5-15.5); WBC 2.5 k/uL (3.8-10.6)
[2023-04-29 06:37] LABS: African American GFR (CKD) 29 (>60 ml/min/1.73 sqM); Anion Gap 8 mmol/L; Blood Urea Nitrogen 54 mg/dL (9-20); Calcium 7.8 mg/dL (8.4-10.2); Carbon Dioxide 21 mmol/L (22-30); Chloride 99 mmol/L (98-107); Glucose 316 mg/dL (74-99); Non-African American GFR(CKD) 25 (>60 ml/min/1.73 sqM); Potassium 4.3 mmol/L (3.5-5.1); Sodium 128 mmol/L (137-145)
[2023-04-29 06:44] LABS: Platelet Count 43 k/uL (150-450)
[2023-04-29 06:51] LABS: C Reactive Protein 15.1 mg/dL (<1.0)
--- NOTE | 2023-04-29 07:37 | P.PN ---
Subjective Progress Note Date: 04/29/23 Principal diagnosis: Permanent atrial fibrillation The patient is a 77-year-old gentleman with CAD and status post CABG with LINDSEY to LAD as well as ischemic cardiomyopathy with EF around 35% as well as hypertension and dyslipidemia and permanent atrial fibrillation was admitted to the hospital with COVID infection as well as atrial fibrillation with RVR. He was seen this morning. He is stable and not on any vasopressors. He continues to be in atrial fibrillation with controlled heart rate. He is on beta brigido and he is also on oral anticoagulation. Assessment Permanent atrial fibrillation with controlled heart rate CAD and status post CABG with LINDSEY to LAD Ischemic cardiomyopathy Multiple comorbid conditions including chronic kidney disease Plan Continue the current medical regimen The heart rate appeared to be under good control on the current dose of beta b locker Continue oral anticoagulation Follow-up with the patient Objective - Vital Signs Vital signs: Vital Signs Temp 98.0 F 04/29/23 04:00 Pulse 68 04/29/23 06:00 Resp 18 04/29/23 06:00 BP 98/58 04/29/23 06:00 Pulse Ox 95 04/29/23 06:00 FiO2 Intake & Output 04/28/23 04/29/23 04/29/23 18:59 06:59 18:59 Intake Total 978.942 410 Output Total 380 920 Balance 598.942 -510 Weight 105 kg Intake: IV 220 260 Sodium Chloride 0.9% 500 220 260 ml 500 ml @ 20 mls/hr IV .Q24H [facility] Rx#:[id number] Intake, IV Titration 108.942 Amount Cefepime 2 gm In Sodium 100 Chloride 0.9% 100 ml @ 25 mls/hr IVPB Q12H [facility] Rx# :[id number] Diltiazem 125 mg In 0 Sodium Chloride 0.9% 100 ml @ Per Protocol IV .Q0M [facility] Rx#:[id number] Norepinephrine 4 mg In 8.942 Sodium Chloride 0.9% 250 ml @ 0.03 MCG/KG/MIN 11. 922 mls/hr IV .[id number] [facility] Rx#:[id number] Oral 650 150 Output: Urine 380 920 Other: Voiding Method Indwelling Catheter Indwelling Catheter - Labs CBC & Chem 7: 04/29/23 06:02 04/29/23 06:02 Labs: Abnormal Lab Results - Last 24 Hours (Table) 04/28/23 04/28/23 04/28/23 Range/Units 03:54 11:42 16:31 WBC (3.8-10.6) k/uL RBC (4.30-5.90) m/uL Hgb (13.0-17.5) gm/dL Hct (39.0-53.0) % Plt Count (150-450) k/uL Lymphocytes # (1.0-4.8) k/uL Fibrinogen 644 H (200-500) mg/dL Sodium (137-145) mmol/L Carbon Dioxide (22-30) mmol/L BUN (9-20) mg/dL Creatinine (0.66-1.25) mg/dL Glucose (74-99) mg/dL POC Glucose (mg/dL) 220 H 247 H (70-110) mg/dL Calcium (8.4-10.2) mg/dL C-Reactive Protein (<1.0) mg/dL 04/28/23 04/28/23 04/29/23 Range/Units 21:05 21:09 01:59 WBC (3.8-10.6) k/uL RBC (4.30-5.90) m/uL Hgb (13.0-17.5) gm/dL Hct (39.0-53.0) % Plt Count (150-450) k/uL Lymphocytes # (1.0-4.8) k/uL Fibrinogen (200-500) mg/dL Sodium (137-145) mmol/L Carbon Dioxide (22-30) mmol/L BUN (9-20) mg/dL Creatinine (0.66-1.25) mg/dL Glucose (74-99) mg/dL POC Glucose (mg/dL) 421 H 423 H 451 H (70-110) mg/dL Calcium (8.4-10.2) mg/dL C-Reactive Protein (<1.0) mg/dL 04/29/23 04/29/23 04/29/23 Range/Units 02:57 05:11 06:02 WBC (3.8-10.6) k/uL RBC (4.30-5.90) m/uL Hgb (13.0-17.5) gm/dL Hct (39.0-53.0) % Plt Count (150-450) k/uL Lymphocytes # (1.0-4.8) k/uL Fibrinogen (200-500) mg/dL Sodium 128 L (137-145) mmol/L Carbon Dioxide 21 L (22-30) mmol/L BUN 54 H (9-20) mg/dL Creatinine 2.36 H (0.66-1.25) mg/dL Glucose 316 H (74-99) mg/dL POC Glucose (mg/dL) 452 H 376 H (70-110) mg/dL Calcium 7.8 L (8.4-10.2) mg/dL C-Reactive Protein 15.1 H (<1.0) mg/dL 04/29/23 04/29/23 Range/Units 06:02 06:05 WBC 2.5 L (3.8-10.6) k/uL RBC 3.17 L (4.30-5.90) m/uL Hgb 10.0 L D (13.0-17.5) gm/dL Hct 31.2 L (39.0-53.0) % Plt Count 43 L (150-450) k/uL Lymphocytes # 0.2 L (1.0-4.8) k/uL Fibrinogen (200-500) mg/dL Sodium (137-145) mmol/L Carbon Dioxide (22-30) mmol/L BUN (9-20) mg/dL Creatinine (0.66-1.25) mg/dL Glucose (74-99) mg/dL POC Glucose (mg/dL) 322 H (70-110) mg/dL Calcium (8.4-10.2) mg/dL C-Reactive Protein (<1.0) mg/dL Microbiology - Last 24 Hours (Table) 04/25/23 15:58 Blood Culture - Preliminary Blood 04/25/23 15:50 Blood Culture - Preliminary Blood 04/27/23 19:04 Gram Stain - Preliminary Sputum
--- NOTE | 2023-04-29 08:20 | XR ---
EXAMINATION TYPE: XR chest 1V portable DATE OF EXAM: 04/29/2023 COMPARISON: 04/28/2023 INDICATION: CHF exacerbation TECHNIQUE: Single frontal view of the chest is obtained. FINDINGS: The heart size is mildly prominent. The pulmonary vasculature is normal. Left lower lobe infiltrate is present. Correlate for atelectasis or pneumonia. Atypical pulmonary nelda ma could be considered. There are a few curly B-lines present on the right. IMPRESSION: 1. Clinical correlation recommended for mild congestive heart failure. This is more focal in the left lower lobe pneumonia and atelectasis should also be considered. Follow-up is recommended
[2023-04-29] MEDS: ZINC SULFATE 220 MG CAP PO SCH (08:24)
[2023-04-29] MEDS: CHOLECALCIFEROL 25 MCG (1000 IU) TABLET PO SCH (08:24)
[2023-04-29] MEDS: PANTOPRAZOLE 40 MG TABLET PO SCH (08:25)
[2023-04-29] MEDS: CYANOCOBALAMIN 500 MCG TAB PO SCH (08:25)
[2023-04-29] MEDS: MIDODRINE 5 MG TAB PO SCH ×3 (08:25→16:33)
[2023-04-29] MEDS: LEVOTHYROXINE 112 MCG TAB PO SCH (08:26)
[2023-04-29] MEDS: FUROSEMIDE 40 MG TAB PO SCH ×2 (08:26→11:51)
[2023-04-29] MEDS: LEVOTHYROXINE 125 MCG TAB PO SCH (08:26)
[2023-04-29] MEDS: METOPROLOL SUCCINATE (ER) 50 MG TAB.ER.24H PO SCH (08:27)
[2023-04-29] MEDS: ASCORBIC ACID 500 MG TAB PO SCH (08:28)
[2023-04-29] MEDS: APIXABAN 2.5 MG TABLET PO SCH ×2 (09:01→16:18)
--- NOTE | 2023-04-29 10:21 | P.PN ---
Subjective Patient is seen for f/u for JEREMY on top of CKD. COVID positive. Good UOP, about 70cc/ hr. No significant shortness of breath. Serum creatinine at 2.3 mg/dL Maintained on oral lasix. Off of pressors and Cardizem drip. Sodium 128 today with creatinine at 2.3. Objective - Vital Signs Vital signs: Vital Signs Temp 97.6 F 04/29/23 08:00 Pulse 79 04/29/23 10:00 Resp 16 04/29/23 10:00 BP 90/67 04/29/23 10:00 Pulse Ox 95 04/29/23 10:00 FiO2 Intake & Output 04/28/23 04/29/23 04/29/23 18:59 06:59 18:59 Intake Total 978.942 410 40 Output Total 380 920 210 Balance 598.942 -510 -170 Weight 105 kg Intake: IV 220 260 40 Sodium Chloride 0.9% 500 220 260 40 ml 500 ml @ 20 mls/hr IV .Q24H [facility] Rx#:[id number] Intake, IV Titration 108.942 Amount Cefepime 2 gm In Sodium 100 Chloride 0.9% 100 ml @ 25 mls/hr IVPB Q12H [facility] Rx# :[id number] Diltiazem 125 mg In 0 Sodium Chloride 0.9% 100 ml @ Per Protocol IV .Q0M [facility] Rx#:[id number] Norepinephrine 4 mg In 8.942 Sodium Chloride 0.9% 250 ml @ 0.03 MCG/KG/MIN 11. 922 mls/hr IV .[id number] [facility] Rx#:[id number] Oral 650 150 Output: Urine 380 920 210 Other: Voiding Method Indwelling Catheter Indwelling Catheter Indwelling Catheter - Exam Patient is awake Comfortable A and O x3 Lungs show bilateral wheezing CVS S1 and S2 Abdomen is soft, non tender. Extremities show trace edema. - Labs CBC & Chem 7: 04/29/23 06:02 04/29/23 06:02 Labs: Abnormal Lab Results - Last 24 Hours (Table) 04/28/23 04/28/23 04/28/23 Range/Units 03:54 11:42 16:31 WBC (3.8-10.6) k/uL RBC (4.30-5.90) m/uL Hgb (13.0-17.5) gm/dL Hct (39.0-53.0) % Plt Count (150-450) k/uL Lymphocytes # (1.0-4.8) k/uL Fibrinogen 644 H (200-500) mg/dL Sodium (137-145) mmol/L Carbon Dioxide (22-30) mmol/L BUN (9-20) mg/dL Creatinine (0.66-1.25) mg/dL Glucose (74-99) mg/dL POC Glucose (mg/dL) 220 H 247 H (70-110) mg/dL Calcium (8.4-10.2) mg/dL C-Reactive Protein (<1.0) mg/dL 04/28/23 04/28/23 04/29/23 Range/Units 21:05 21:09 01:59 WBC (3.8-10.6) k/uL RBC (4.30-5.90) m/uL Hgb (13.0-17.5) gm/dL Hct (39.0-53.0) % Plt Count (150-450) k/uL Lymphocytes # (1.0-4.8) k/uL Fibrinogen (200-500) mg/dL Sodium (137-145) mmol/L Carbon Dioxide (22-30) mmol/L BUN (9-20) mg/dL Creatinine (0.66-1.25) mg/dL Glucose (74-99) mg/dL POC Glucose (mg/dL) 421 H 423 H 451 H (70-110) mg/dL Calcium (8.4-10.2) mg/dL C-Reactive Protein (<1.0) mg/dL 04/29/23 04/29/23 04/29/23 Range/Units 02:57 05:11 06:02 WBC (3.8-10.6) k/uL RBC (4.30-5.90) m/uL Hgb (13.0-17.5) gm/dL Hct (39.0-53.0) % Plt Count (150-450) k/uL Lymphocytes # (1.0-4.8) k/uL Fibrinogen (200-500) mg/dL Sodium 128 L (137-145) mmol/L Carbon Dioxide 21 L (22-30) mmol/L BUN 54 H (9-20) mg/dL Creatinine 2.36 H (0.66-1.25) mg/dL Glucose 316 H (74-99) mg/dL POC Glucose (mg/dL) 452 H 376 H (70-110) mg/dL Calcium 7.8 L (8.4-10.2) mg/dL C-Reactive Protein 15.1 H (<1.0) mg/dL 04/29/23 04/29/23 Range/Units 06:02 06:05 WBC 2.5 L (3.8-10.6) k/uL RBC 3.17 L (4.30-5.90) m/uL Hgb 10.0 L D (13.0-17.5) gm/dL Hct 31.2 L (39.0-53.0) % Plt Count 43 L (150-450) k/uL Lymphocytes # 0.2 L (1.0-4.8) k/uL Fibrinogen (200-500) mg/dL Sodium (137-145) mmol/L Carbon Dioxide (22-30) mmol/L BUN (9-20) mg/dL Creatinine (0.66-1.25) mg/dL Glucose (74-99) mg/dL POC Glucose (mg/dL) 322 H (70-110) mg/dL Calcium (8.4-10.2) mg/dL C-Reactive Protein (<1.0) mg/dL Microbiology - Last 24 Hours (Table) 04/25/23 15:58 Blood Culture - Preliminary Blood 04/25/23 15:50 Blood Culture - Preliminary Blood 04/27/23 19:04 Gram Stain - Preliminary Sputum Assessment and Plan Assessment: 1. Acute kidney injury, nonoliguric secondary to hemodynamic ATN secondary to low blood pressure and hemodynamic instability with A. fib with RVR. Possible cardiorenal component as well. Patient is currently being diuresed. Blood pre ssure remains on the lower side 2. Chronic kidney disease NKF stage IIIB with baseline creatinine 1.3-1.5 mg/dL secondary to diabetic kidney disease 3. Pseudomonas pneumonia on recent admission on 04/06/2023 maintained on cefepime at home 4. Acute COPD exacerbation status post treatment and discharge about 10 days ago 5. Cardiomyopathy with ejection fraction 20-30%. Ischemic cardiomyopathy 6. Chronic systolic CHF with acute exacerbation 7. A. fib with RVR 8. COVID- positive on 04/19/2023 9. Volume overload 10. Hyponatremia, hypervolemic. Continue with oral Lasix. Plan: Continue with current dose of Lasix Samsca 1 Continue midodrine and try to maintain off of levo fed Repeat labs in a.m.
[2023-04-29] MEDS ORDERED: TOLVAPTAN 15 MG TABLET PO ONE (11:00)
--- NOTE | 2023-04-29 11:20 | P.PN ---
Subjective Progress Note Date: 04/29/23 this is a 77-year-old white male, very familiar to my service, I have seen this patient many times in the past for history of chronic obstructive pulmonary disease, and recurrent diastolic congestive heart failure/chronic. Patient was last here last month, and he was treated for Pseudomonas pneumonia. Patient was discharged to rehab, and has been in rehab recently until yesterday patient was complaining of weakness, shortness of breath, he was sent to [facility] initially, and he was found in atrial fibrillation with RVR. Patient was also noted to be hypotensive. Patient has been receiving antibiotics in the form of redness cefepime via PICC line in his left upper extremity. At [facility] the patient was given Cardizem, and he was noted to be hypotensive, hence arrangements were made for the patient to transfer to [facility]. Patient was given fluid boluses while in the ER, and he developed some component of interstitial edema, at the same time the patient was placed on low-dose norepinephrine, admitted to the ICU, and this consult was initiated. Patient is on cefepime is also on vancomycin, he is yet to be seen by nephrology and infectious disease on consultation, patient is also on eliquis chronically. During my evaluation, the patient was on room air, he does have intermittent cough and wheezing.WC count is 8.1 hemoglobin is 12 electrolytes are normal BUN is 57 creatinine 2.15.baseline creatinine is in the range of 1.5 from the last admission.troponins were also noted to be elevated 0.33 follow-up troponin was 0.234.chest x-ray showed cardiomegaly, and mild interstitial infiltrates/edema. Patient was seen and evaluated on 04/27/2023, remains in the ICU, remains on 4 L nasal cannula, remains on Cardizem drip at 10 mg per hour remains on norepinephrine at 0.0-3 mcg/kg/m, IV fluids at KVO, patient is sleeping and dressing this morning, he had episodes of anxiety yesterday. Under control, patient is maintained on Xanax. Cardiology is planning to cut down his Cardizem down to 5 mg per hour, hopefully with good taper and possibly discontinue norepinephrine today. Overall the patient is doing much better today compared to yesterday. WBC count is 6 hemoglobin is 10.8 electrolytes are normal BUN is 51 creatinine 2.08, improving compared to his admission creatinine of 2.21. Chest x-ray is showing nonspecific interstitial bilateral changes patient is known to have history of nonspecific interstitial pneumonitis. And chronic di astolic congestive heart failure Reevaluated today on 04/28/2023, patient is having more symptoms of cough wheezing shortness of breath and chest tightness. Hence I started the patient on relatively high-dose of steroids. Patient is now off Cardizem, he is off norepinephrine, continues to cough and wheeze and continues to have chest tightness his CBC is relatively normal in the class abnormal BUN is 47 creatinine 2.31, slightly worse compared to yesterday. Chest x-ray showed minimal interstitial edema and pulmonary vascular congestion patient is on diuretics, he is also on bronchodilators, and steroids were added today The patient is seen today 04/29/2023 in follow-up in the intensive care unit. He is currently sitting up in bed. Awake and alert in no acute distress. Maintaining O2 saturations in the 90s on 3 L/m per nasal cannula. He's been afebrile. Norepinephrine has been discontinued. Normal saline at KVO. Chest x-ray reveals left lower lobe infiltrate. Atypical pulmonary edema. Few curly B-lines on the right. Mild congestive heart failure. He remains in atrial fibr illation with a controlled ventricular rate. Blood cultures reveal no growth. Sputum culture revealed no growth. White count 2.5. Hemoglobin 10.0. Platelets 43,000. Sodium 128. Potassium 4.3. Bicarb 21. BUN 54. Creatinine 2.36. Glucose 316. He is continued on Symbicort, albuterol, IV Solu-Medrol. Anticoagulated with Eliquis. Antibiotics in the form of cefepime. Remains on oral diuretics. Metoprolol for rate control. Objective - Vital Signs Vital signs: Vital Signs Temp 97.6 F 04/29/23 08:00 Pulse 79 04/29/23 10:00 Resp 16 04/29/23 10:00 BP 90/67 04/29/23 10:00 Pulse Ox 95 04/29/23 10:00 FiO2 Intake & Output 04/28/23 04/29/23 04/29/23 18:59 06:59 18:59 Intake Total 978.942 410 60 Output Total 380 920 300 Balance 598.942 -510 -240 Weight 105 kg Intake: IV 220 260 60 Sodium Chloride 0.9% 500 220 260 60 ml 500 ml @ 20 mls/hr IV .Q24H [facility] Rx#:[id number] Intake, IV Titration 108.942 Amount Cefepime 2 gm In Sodium 100 Chloride 0.9% 100 ml @ 25 mls/hr IVPB Q12H [facility] Rx# :[id number] Diltiazem 125 mg In 0 Sodium Chloride 0.9% 100 ml @ Per Protocol IV .Q0M [facility] Rx#:[id number] Norepinephrine 4 mg In 8.942 Sodium Chloride 0.9% 250 ml @ 0.03 MCG/KG/MIN 11. 922 mls/hr IV .[id number] [facility] Rx#:[id number] Oral 650 150 Output: Urine 380 920 300 Other: Voiding Method Indwelling Catheter Indwelling Catheter Indwelling Catheter - Exam GENERAL EXAM: Alert, pleasant 69-year-old male patient, 3 L nasal cannula, comfortable in no apparent distress. HEAD: Normocephalic. EYES: Normal reaction of pupils, equal size. NOSE: Clear with pink turbinates. THROAT: No erythema or exudates. NECK: No masses, no JVD. CHEST: No chest wall deformity. LUNGS: Equal air entry with crackles in the bilateral bases left greater than right. CVS: S1 and S2 normal with no audible murmur, irregular rhythm. ABDOMEN: No hepatosplenomegaly, normal bowel sounds, no guarding or rigidity. SPINE: No scoliosis or deformity SKIN: No rashes CENTRAL NERVOUS SYSTEM: No focal deficits, tone is normal in all 4 extremities. EXTREMITIES: There is 1+ peripheral edema. No clubbing, no cyanosis. Periphera l pulses are intact. - Labs CBC & Chem 7: 04/29/23 06:02 04/29/23 06:02 Labs: Abnormal Lab Results - Last 24 Hours (Table) 04/28/23 04/28/23 04/28/23 Range/Units 03:54 11:42 16:31 WBC (3.8-10.6) k/uL RBC (4.30-5.90) m/uL Hgb (13.0-17.5) gm/dL Hct (39.0-53.0) % Plt Count (150-450) k/uL Lymphocytes # (1.0-4.8) k/uL Fibrinogen 644 H (200-500) mg/dL Sodium (137-145) mmol/L Carbon Dioxide (22-30) mmol/L BUN (9-20) mg/dL Creatinine (0.66-1.25) mg/dL Glucose (74-99) mg/dL POC Glucose (mg/dL) 220 H 247 H (70-110) mg/dL Calcium (8.4-10.2) mg/dL C-Reactive Protein (<1.0) mg/dL 04/28/23 04/28/23 04/29/23 Range/Units 21:05 21:09 01:59 WBC (3.8-10.6) k/uL RBC (4.30-5.90) m/uL Hgb (13.0-17.5) gm/dL Hct (39.0-53.0) % Plt Count (150-450) k/uL Lymphocytes # (1.0-4.8) k/uL Fibrinogen (200-500) mg/dL Sodium (137-145) mmol/L Carbon Dioxide (22-30) mmol/L BUN (9-20) mg/dL Creatinine (0.66-1.25) mg/dL Glucose (74-99) mg/dL POC Glucose (mg/dL) 421 H 423 H 451 H (70-110) mg/dL Calcium (8.4-10.2) mg/dL C-Reactive Protein (<1.0) mg/dL 04/29/23 04/29/23 04/29/23 Range/Units 02:57 05:11 06:02 WBC (3.8-10.6) k/uL RBC (4.30-5.90) m/uL Hgb (13.0-17.5) gm/dL Hct (39.0-53.0) % Plt Count (150-450) k/uL Lymphocytes # (1.0-4.8) k/uL Fibrinogen (200-500) mg/dL Sodium 128 L (137-145) mmol/L Carbon Dioxide 21 L (22-30) mmol/L BUN 54 H (9-20) mg/dL Creatinine 2.36 H (0.66-1.25) mg/dL Glucose 316 H (74-99) mg/dL POC Glucose (mg/dL) 452 H 376 H (70-110) mg/dL Calcium 7.8 L (8.4-10.2) mg/dL C-Reactive Protein 15.1 H (<1.0) mg/dL 04/29/23 04/29/23 Range/Units 06:02 06:05 WBC 2.5 L (3.8-10.6) k/uL RBC 3.17 L (4.30-5.90) m/uL Hgb 10.0 L D (13.0-17.5) gm/dL Hct 31.2 L (39.0-53.0) % Plt Count 43 L (150-450) k/uL Lymphocytes # 0.2 L (1.0-4.8) k/uL Fibrinogen (200-500) mg/dL Sodium (137-145) mmol/L Carbon Dioxide (22-30) mmol/L BUN (9-20) mg/dL Creatinine (0.66-1.25) mg/dL Glucose (74-99) mg/dL POC Glucose (mg/dL) 322 H (70-110) mg/dL Calcium (8.4-10.2) mg/dL C-Reactive Protein (<1.0) mg/dL Microbiology - Last 24 Hours (Table) 04/25/23 15:58 Blood Culture - Preliminary Blood 04/25/23 15:50 Blood Culture - Preliminary Blood 04/27/23 19:04 Gram Stain - Preliminary Sputum Assessment and Plan Assessment: Chronic atrial fibrillation, patient presented with atrial fibrillation with RVR. Anticoagulated with Eliquis Acute exacerbation of chronic systolic congestive heart failure, ejection fraction 30-35% on 03/29/2023 Acute exacerbation of COPD COVID-19 infection Recent history of pneumonia secondary to pseudomonas aeruginosa, on cefepime. Moderate severe aortic stenosis with pulmonary hypertension Chronic kidney disease stage III Former smoker History of coronary artery disease and previous CABG and stenting Dyslipidemia Hypothyroidism Poor overall functional performance based on the above-mentioned multiple comorbidities Plan: The patient was seen and evaluated Chest x-ray, labs and medications reviewed Stable and on 3 L nasal cannula Off pressors Hold anticoagulation due to low platelets Continue antibiotics, bronchodilators Continue diuretics Cleared for transfer to the regular medical floor with telemetry We will continue to follow I have personally seen and examined the patient, performed the documentation and the assessment and plan as written. Number of minutes spent on the visit: 10.
[2023-04-29 11:31] LABS: Glucose,Whole Blood 171 mg/dL (70-110)
[2023-04-29] MEDS: NOREPINEPHRINE 4 MG in SODIUM CHLORIDE 0.9% 250 ML IV SCH (11:46)
[2023-04-29] MEDS: SYMBICORT 80-4.5 MCG INHALER INHALATION SCH ×2 (12:00→16:26)
[2023-04-29] MEDS: ALBUTEROL HFA INHALER INHALATION PRN ×2 (12:00→16:26)
[2023-04-29] MEDS: INSULIN DETEMIR (LEVEMIR) 100 UNIT/ML SYR SQ SCH ×2 (12:29→21:09)
[2023-04-29] MEDS: SODIUM CHLORIDE 0.9% 500 ML 500 ML IV SCH (12:51)
--- NOTE | 2023-04-29 13:54 | P.PN ---
Subjective Progress Note Date: 04/29/23 Patient is a 69-year-old male came in with the complaints of weakness of his of breath. Found to be in congestive heart failure exacerbation. Patient was started on IV Lasix. Patient the was receiving IV antibiotics as an outpatient cefepime for pseudomonas pneumonia recently. Patient was also diagnosed with COVID-19. Patient Has acute renal failure with creatinine of around 2.5 baseline is around 1.3. Patient does have chronic kidney disease stage III does have history of can start failure chronic systolic dysfunction with the EF of around 30-35%. Patient does have severe pulmonary hypertension and severe stenosis patient is hyponatremic as well with mildly elevated troponins. Patient is presently on 2 L of oxygen was on 4 L of oxygen. Patient does have history of atrial fibrillation presently in A. fib with heart on 129. 04/27/2023 Patient is evaluated in the intensive care unit today continues to be short of breath and fatigued. Patient was diagnosed with COVID outpatient on the at [facility]. Continues on IV cefepime. Heart rate controlled in the 80-90s patient continues on IV cardizem and resumed on eliquis with renal dosing. Patient creatinine improved slightly to 2.08 today. Continues on levophed and blood pressure in the 90s systolic. 04/28/2023 Patient evaluated today in the ICU remains fatigued. Being treated for pseudomonas in the sputum with IV cefepime diagnosed prior admission. ID is following. Patient also covid positive. Blood glucose in the 40s this morning amaryl is discontinued and patient is given glucerna TID with meals. B12 low normal at 298 and started on oral supplementation. Platelet count is low today at 53, hematology consulted and patient can continue on eliquis if platelet count remains above 50. Cardizem gtt and levophed are currently off. Blood pressure in the high 90s to low 100 systolic. Afebrile, on 2L nasal cannula. 04/29/2023 Patient is seen in follow-up in the ICU with multiple medical consultations following. Patient is considered a possible downgrade out of the ICU awaiting a bed and has been off Cardizem drip and pressor support. Patient is on anticoagulation along with inhaled treatments as patient does have Covid and continues on 3 L via nasal cannula. Patient is maintained on diuretics along with antibiotics and will continue. Patient will need PT/OT therapy evaluation. No reports of nausea or vomiting noted patient is tolerating diet. Blood sugars have been elevated and most recently a few days ago his oral diabetic agents were placed on hold for hypoglycemia. Will continue with sliding scale and add long-acting and continue to monitor with Accu-Cheks before meals and at bedtime. Patient is currently afebrile denies worsening shortness of breath. Review of Systems Constitutional: Reports fatigue,denied any fever. Cardio vascular: denied any chest pain, palpitations Gastrointestinal: denied any nausea, vomiting, diarrhea Pulmonary: Reports shortness of breath and cough with green/brown sputum Neurologic denied any new focal deficits Weakness All inpatient medications were reviewed and appropriate changes in these medications as dictated in the interval history and assessment and plan. PHYSICAL EXAMINATION: GENERAL: The patient is alert and oriented x3, Well developed, well nourished. HEENT: Pupils are round and equally reacting to light. EOMI. No scleral icterus. No conjunctival pallor. Normocephalic, atraumatic. No pharyngeal erythema. No thyromegaly. CARDIOVASCULAR: S1 and S2 present. No murmurs, rubs, or gallops. PULMONARY: Bilateral coarse rhonchi ABDOMEN: Soft, nontender, nondistended, normoactive bowel sounds. No palpable organomegaly. MUSCULOSKELETAL: No joint swelling or deformity. EXTREMITIES: No cyanosis, clubbing, or pedal edema. NEUROLOGICAL: Gross neurological examination did not reveal any focal deficits. Generalized weakness SKIN: No rashes. Assessment: -Acute hypoxic respiratory failure multifactorial due to acute CHF, pseudomonas pneumonia and covid infection -Acute renal failure due to ATN from hypotension -Hypovolemic shock requiring vasopressor support currently off pressor support -Recent Pseudomonas pneumonia for which the patient is on IV cefepime -Atrial fibrillation paroxysmal: with RVR on admission, IV Cardizem discontinued currently rate controlled -COPD with acute exacerbation -COVID-19 pneumonia -Thrombocytopenia felt to be multifactorial due to combination of cefepime effects, and recent illness -Moderate aortic stenosis and pulmonary hypertension -Ischemic cardiomyopathy -Chronic kidney disease stage III secondary to diabetic nephropathy -Coronary artery disease with CABG in the past -Hypothyroidism -DVT prophylaxis: On anticoagulation -GI prophylaxis -Full Code Plan: Hematology recommending to hold eliquis short term if platlets drop below 50 e xpecting plt count to improve with recovery of acute illness. Will follow-up with repeat labs Continue antibiotics and supportive care pending final sputum and blood cultures, infectious disease following, preliminary culture showing Susana Follow up labs in AM PT/OT consultation. Social work/case management following and patient will be returning to ECF on discharge once stabilized and cleared by consultations Patient is in overflow hold in the ICU awaiting a MedSurg bed. Would recommend telemetry monitoring. Recommend monitor Accu-Cheks before meals and at bedtime and will add long-actin g and continue sliding scale as blood sugars were elevated The impression and plan of care has been dictated by Amy Reardon, Nurse Practitioner as directed. Dr. Jaquan MD I have performed a history and examination and MDM of this patient, discussed the same with the dictator, and agree with the dictator's assessment and plan as written ,documented as a scribe. Based on total visit time, I have performed more than 50% of the visit. Objective - Vital Signs Vital signs: Vital Signs Temp 97.6 F 04/29/23 08:00 Pulse 76 04/29/23 09:00 Resp 23 04/29/23 09:00 BP 102/70 04/29/23 09:00 Pulse Ox 95 04/29/23 09:00 FiO2 Intake & Output 04/28/23 04/29/23 04/29/23 18:59 06:59 18:59 Intake Total 978.942 410 Output Total 380 920 Balance 598.942 -510 Weight 105 kg Intake: IV 220 260 Sodium Chloride 0.9% 500 220 260 ml 500 ml @ 20 mls/hr IV .Q24H [facility] Rx#:[id number] Intake, IV Titration 108.942 Amount Cefepime 2 gm In Sodium 100 Chloride 0.9% 100 ml @ 25 mls/hr IVPB Q12H [facility] Rx# :[id number] Diltiazem 125 mg In 0 Sodium Chloride 0.9% 100 ml @ Per Protocol IV .Q0M [facility] Rx#:[id number] Norepinephrine 4 mg In 8.942 Sodium Chloride 0.9% 250 ml @ 0.03 MCG/KG/MIN 11. 922 mls/hr IV .[id number] [facility] Rx#:[id number] Oral 650 150 Output: Urine 380 920 Other: Voiding Method Indwelling Catheter Indwelling Catheter - Labs CBC & Chem 7: 04/29/23 06:02 04/29/23 06:02 Labs: Abnormal Lab Results - Last 24 Hours (Table) 04/28/23 04/28/23 04/28/23 Range/Units 03:54 11:42 16:31 WBC (3.8-10.6) k/uL RBC (4.30-5.90) m/uL Hgb (13.0-17.5) gm/dL Hct (39.0-53.0) % Plt Count (150-450) k/uL Lymphocytes # (1.0-4.8) k/uL Fibrinogen 644 H (200-500) mg/dL Sodium (137-145) mmol/L Carbon Dioxide (22-30) mmol/L BUN (9-20) mg/dL Creatinine (0.66-1.25) mg/dL Glucose (74-99) mg/dL POC Glucose (mg/dL) 220 H 247 H (70-110) mg/dL Calcium (8.4-10.2) mg/dL C-Reactive Protein (<1.0) mg/dL 04/28/23 04/28/23 04/29/23 Range/Units 21:05 21:09 01:59 WBC (3.8-10.6) k/uL RBC (4.30-5.90) m/uL Hgb (13.0-17.5) gm/dL Hct (39.0-53.0) % Plt Count (150-450) k/uL Lymphocytes # (1.0-4.8) k/uL Fibrinogen (200-500) mg/dL Sodium (137-145) mmol/L Carbon Dioxide (22-30) mmol/L BUN (9-20) mg/dL Creatinine (0.66-1.25) mg/dL Glucose (74-99) mg/dL POC Glucose (mg/dL) 421 H 423 H 451 H (70-110) mg/dL Calcium (8.4-10.2) mg/dL C-Reactive Protein (<1.0) mg/dL 04/29/23 04/29/23 04/29/23 Range/Units 02:57 05:11 06:02 WBC (3.8-10.6) k/uL RBC (4.30-5.90) m/uL Hgb (13.0-17.5) gm/dL Hct (39.0-53.0) % Plt Count (150-450) k/uL Lymphocytes # (1.0-4.8) k/uL Fibrinogen (200-500) mg/dL Sodium 128 L (137-145) mmol/L Carbon Dioxide 21 L (22-30) mmol/L BUN 54 H (9-20) mg/dL Creatinine 2.36 H (0.66-1.25) mg/dL Glucose 316 H (74-99) mg/dL POC Glucose (mg/dL) 452 H 376 H (70-110) mg/dL Calcium 7.8 L (8.4-10.2) mg/dL C-Reactive Protein 15.1 H (<1.0) mg/dL 04/29/23 04/29/23 Range/Units 06:02 06:05 WBC 2.5 L (3.8-10.6) k/uL RBC 3.17 L (4.30-5.90) m/uL Hgb 10.0 L D (13.0-17.5) gm/dL Hct 31.2 L (39.0-53.0) % Plt Count 43 L (150-450) k/uL Lymphocytes # 0.2 L (1.0-4.8) k/uL Fibrinogen (200-500) mg/dL Sodium (137-145) mmol/L Carbon Dioxide (22-30) mmol/L BUN (9-20) mg/dL Creatinine (0.66-1.25) mg/dL Glucose (74-99) mg/dL POC Glucose (mg/dL) 322 H (70-110) mg/dL Calcium (8.4-10.2) mg/dL C-Reactive Protein (<1.0) mg/dL Microbiology - Last 24 Hours (Table) 04/25/23 15:58 Blood Culture - Preliminary Blood 04/25/23 15:50 Blood Culture - Preliminary Blood 04/27/23 19:04 Gram Stain - Preliminary Sputum
[2023-04-29] MEDS: GABAPENTIN 400 MG CAP PO SCH ×3 (14:04→21:09)
[2023-04-29 16:22] LABS: Glucose,Whole Blood 283 mg/dL (70-110)
[2023-04-29 20:28] LABS: Glucose,Whole Blood 348 mg/dL (70-110)
[2023-04-29] MEDS: ATORVASTATIN 40 MG TAB PO SCH (21:10)
[2023-04-30] MEDS: methylPREDNISolone SOD SUCCI 40 MG/ML 1 ML VIAL IV SCH ×2 (02:50→08:43)
[2023-04-30] MEDS: CEFEPIME 2 GM in SODIUM CHLORIDE 0.9% 100 ML IVPB SCH (06:04)
[2023-04-30 06:25] LABS: Glucose,Whole Blood 326 mg/dL (70-110)
[2023-04-30] MEDS: LEVOTHYROXINE 125 MCG TAB PO SCH (08:40)
[2023-04-30] MEDS: LEVOTHYROXINE 112 MCG TAB PO SCH (08:41)
[2023-04-30] MEDS: CHOLECALCIFEROL 25 MCG (1000 IU) TABLET PO SCH (08:41)
[2023-04-30] MEDS: MIDODRINE 5 MG TAB PO SCH ×3 (08:41→17:18)
[2023-04-30] MEDS: ZINC SULFATE 220 MG CAP PO SCH (08:41)
[2023-04-30] MEDS: METOPROLOL SUCCINATE (ER) 50 MG TAB.ER.24H PO SCH (08:41)
[2023-04-30] MEDS: INSULIN ASPART (NovoLOG) 100 UNIT/ML VIAL SQ SCH ×5 (08:42→20:48)
[2023-04-30] MEDS: ASCORBIC ACID 500 MG TAB PO SCH (08:42)
[2023-04-30] MEDS: PANTOPRAZOLE 40 MG TABLET PO SCH (08:42)
[2023-04-30] MEDS: FUROSEMIDE 40 MG TAB PO SCH ×2 (08:42→11:57)
[2023-04-30] MEDS: CYANOCOBALAMIN 500 MCG TAB PO SCH (08:42)
[2023-04-30] MEDS: INSULIN DETEMIR (LEVEMIR) 100 UNIT/ML SYR SQ SCH ×2 (08:42→20:47)
[2023-04-30] MEDS: APIXABAN 2.5 MG TABLET PO SCH ×3 (08:43→17:22)
[2023-04-30] MEDS: NOREPINEPHRINE 4 MG in SODIUM CHLORIDE 0.9% 250 ML IV SCH (09:28)
[2023-04-30] MEDS: SYMBICORT 80-4.5 MCG INHALER INHALATION SCH ×2 (09:55→20:43)
[2023-04-30] MEDS: ALBUTEROL HFA INHALER INHALATION PRN ×3 (09:55→20:43)
[2023-04-30] MEDS: SODIUM CHLORIDE 0.9% 500 ML 500 ML IV SCH (10:59)
[2023-04-30 11:01] LABS: Basophils # (A) 0 X 10*3/uL (0.00-0.10); Basophils % (A) 0 %; Eosinophils # (A) 0 X 10*3/uL (0.04-0.35); Eosinophils % (A) 0 %; HCT 29.3 % (39.6-50.0); HGB 9.6 d/dL (12.0-15.0); Immature Platelet Fraction 7.4 % (1.1-6.1); Lymphocytes # (A) 0.19 X 10*3/uL (0.90-5.00); Lymphocytes % (A) 5.1 %; MCH 31.5 pg (27.0-32.0); MCHC 32.8 d/dL (32.0-37.0); MCV 96.1 FL (80.0-97.0); Mean Platelet Volume 11.8 FL (9.5-12.2); Monocytes # (A) 0.27 X 10*3/uL (0.20-1.00); Monocytes % (A) 7.3 %; NRBC Per 100 WBC 0 X 10*3/uL (0.00-0.01); Neutrophils # (A) 3.22 X 10*3/uL (1.80-7.70); Neutrophils % (A) 87.1 %; Platelet Count 67 X 10*3/uL (140-440); RBC 3.05 X 10*6/uL (4.40-5.60); RBC Morphology Normal (Normal); RDW 14.4 % (11.5-14.5)
--- NOTE | 2023-04-30 11:14 | P.PN ---
Subjective Progress Note Date: 04/30/23 HISTORY OF PRESENT ILLNESS: Patient examined this morning at the bedside. Patient denies chest pain or pressure. He denies shortness of breath. He remains on 4 L nasal cannula to [facility] oxygen saturations greater than 92%. Telemetry reveals atrial fibrillation with controlled ventricular rate. Vital signs are stable. PHYSICAL EXAM: VITAL SIGNS: Reviewed. GENERAL: Well-developed in no acute distress. NECK: Supple. No JVD or thyromegaly LUNGS: Respirations even and unlabored. Lungs essentially clear to auscultation bilaterally. HEART: Irregular rate and rhythm. S1 and S2 heard. Systolic murmur noted EXTREMITIES: Normal range of motion. No clubbing or cyanosis. Peripheral pulses intact. No lower extremity edema ASSESSMENT: Acute exacerbation of congestive heart failure with reduced ejection fraction, 30-35% Permanent atrial for relation with RVR, currently rate controlled Acute gastritis recent of COPD Acute clubbing 19 infection Coronary artery disease with previous CABG and stenting Aortic stenosis Hyperlipidemia PLAN: Continue current cardiac medications Patient is stable from a cardiac perspective No further inpatient recommendations from a cardiology standpoint We will sign off. Please reconsult if needed. Nurse practitioner note has been reviewed by physician. Signing provider agrees with the documented findings, assessment, and plan of care. Objective - Vital Signs Vital signs: Vital Signs Temp 97.4 F L 04/30/23 01:57 Pulse 77 04/30/23 07:07 Resp 16 04/30/23 07:07 BP 110/74 04/30/23 07:07 Pulse Ox 90 L 04/30/23 07:07 FiO2 Intake & Output 04/29/23 04/30/23 04/30/23 18:59 06:59 18:59 Intake Total 250 275 Output Total 710 750 Balance -460 -475 Weight 105 kg Intake: IV 100 Sodium Chloride 0.9% 500 100 ml 500 ml @ 20 mls/hr IV .Q24H [facility] Rx#:[id number] Oral 150 Blood Product 0 275 Platelet Pheresis Pas 0 275 Psoralen Unit [id number] Output: Urine 710 750 Other: Voiding Method Indwelling Catheter Indwelling Catheter Indwelling Catheter - Labs CBC & Chem 7: 04/30/23 06:20 04/29/23 17:33 Labs: Abnormal Lab Results - Last 24 Hours (Table) 04/29/23 04/29/23 04/29/23 Range/Units 06:02 06:02 11:29 WBC (4.50-10.00) X 10*3/uL RBC (4.40-5.60) X 10*6/uL Hgb (12.0-15.0) d/dL Hct (39.6-50.0) % Plt Count (140-440) X 10*3/uL Lymphocytes # (0.90-5.00) X 10*3/uL Eosinophils # (0.04-0.35) X 10*3/uL Immature Plt Fraction (1.1-6.1) % Sodium (137-145) mmol/L POC Glucose (mg/dL) 171 H (70-110) mg/dL Hemoglobin A1c 9.4 H (<=6.0) % Procalcitonin 0.39 H (0.02-0.09) ng/mL 04/29/23 04/29/23 04/29/23 Range/Units 16:21 17:33 20:26 WBC (4.50-10.00) X 10*3/uL RBC (4.40-5.60) X 10*6/uL Hgb (12.0-15.0) d/dL Hct (39.6-50.0) % Plt Count (140-440) X 10*3/uL Lymphocytes # (0.90-5.00) X 10*3/uL Eosinophils # (0.04-0.35) X 10*3/uL Immature Plt Fraction (1.1-6.1) % Sodium 130 L (137-145) mmol/L POC Glucose (mg/dL) 283 H 348 H (70-110) mg/dL Hemoglobin A1c (<=6.0) % Procalcitonin (0.02-0.09) ng/mL 04/30/23 04/30/23 Range/Units 06:20 06:23 WBC 3.70 L (4.50-10.00) X 10*3/uL RBC 3.05 L (4.40-5.60) X 10*6/uL Hgb 9.6 L (12.0-15.0) d/dL Hct 29.3 L (39.6-50.0) % Plt Count 67 L (140-440) X 10*3/uL Lymphocytes # 0.19 L (0.90-5.00) X 10*3/uL Eosinophils # 0 L (0.04-0.35) X 10*3/uL Immature Plt Fraction 7.4 H (1.1-6.1) % Sodium (137-145) mmol/L POC Glucose (mg/dL) 326 H (70-110) mg/dL Hemoglobin A1c (<=6.0) % Procalcitonin (0.02-0.09) ng/mL Microbiology - Last 24 Hours (Table) 04/27/23 19:04 Gram Stain - Final Sputum Sputum Culture - Final Susana albicans
[2023-04-30 11:20] LABS: BUN/Creat Ratio 20.59 Ratio (12.00-20.00); Blood Urea Nitrogen 65.9 mg/dL (9.0-27.0); Calcium 8.4 mg/dL (8.7-10.3); Carbon Dioxide 21.5 mmol/L (21.6-31.8); Chloride 99 mmol/L (96-109); Glucose 301 mg/dL (70-110); Magnesium 1.9 mg/dL (1.5-2.4); Potassium 4.6 mmol/L (3.5-5.5); Sodium 133 mmol/L (135-145)
[2023-04-30 11:36] LABS: Glucose,Whole Blood 451 mg/dL (70-110)
--- NOTE | 2023-04-30 11:44 | P.PN ---
Subjective Patient is seen for f/u for JEREMY on top of CKD. COVID positive. Good UOP, 1.4 L for 24 hours. No significant shortness of breath. Serum creatinine increased to 3.2 mg/dL today Maintained on oral lasix. Off of pressors and Cardizem drip and transferred out of ICU Objective - Vital Signs Vital signs: Vital Signs Temp 97.4 F L 04/30/23 01:57 Pulse 77 04/30/23 07:07 Resp 16 04/30/23 07:07 BP 110/74 04/30/23 07:07 Pulse Ox 90 L 04/30/23 07:07 FiO2 Intake & Output 04/29/23 04/30/23 04/30/23 18:59 06:59 18:59 Intake Total 250 275 Output Total 710 750 Balance -460 -475 Weight 105 kg Intake: IV 100 Sodium Chloride 0.9% 500 100 ml 500 ml @ 20 mls/hr IV .Q24H [facility] Rx#:[id number] Oral 150 Blood Product 0 275 Platelet Pheresis Pas 0 275 Psoralen Unit [id number] Output: Urine 710 750 Other: Voiding Method Indwelling Catheter Indwelling Catheter Indwelling Catheter - Exam Patient is awake Comfortable A and O x3 Abdomen is soft, non tender. Extremities show trace edema. - Labs CBC & Chem 7: 04/30/23 06:20 04/30/23 06:20 Labs: Abnormal Lab Results - Last 24 Hours (Table) 04/29/23 04/29/23 04/29/23 Range/Units 06:02 16:21 17:33 WBC (4.50-10.00) X 10*3/uL RBC (4.40-5.60) X 10*6/uL Hgb (12.0-15.0) d/dL Hct (39.6-50.0) % Plt Count (140-440) X 10*3/uL Lymphocytes # (0.90-5.00) X 10*3/uL Eosinophils # (0.04-0.35) X 10*3/uL Immature Plt Fraction (1.1-6.1) % Sodium 130 L (137-145) mmol/L Carbon Dioxide (21.6-31.8) mmol/L Anion Gap (4.00-12.00) mmol/L BUN (9.0-27.0) mg/dL Creatinine (0.6-1.5) mg/dL Est GFR (CKD-EPI) (>=60) BUN/Creatinine Ratio (12.00-20.00) Ratio Glucose (70-110) mg/dL POC Glucose (mg/dL) 283 H (70-110) mg/dL Calcium (8.7-10.3) mg/dL Procalcitonin 0.39 H (0.02-0.09) ng/mL 04/29/23 04/30/23 04/30/23 Range/Units 20:26 06:20 06:20 WBC 3.70 L (4.50-10.00) X 10*3/uL RBC 3.05 L (4.40-5.60) X 10*6/uL Hgb 9.6 L (12.0-15.0) d/dL Hct 29.3 L (39.6-50.0) % Plt Count 67 L (140-440) X 10*3/uL Lymphocytes # 0.19 L (0.90-5.00) X 10*3/uL Eosinophils # 0 L (0.04-0.35) X 10*3/uL Immature Plt Fraction 7.4 H (1.1-6.1) % Sodium 133 L (137-145) mmol/L Carbon Dioxide 21.5 L (21.6-31.8) mmol/L Anion Gap 12.50 H (4.00-12.00) mmol/L BUN 65.9 H (9.0-27.0) mg/dL Creatinine 3.2 H (0.6-1.5) mg/dL Est GFR (CKD-EPI) 19 L (>=60) BUN/Creatinine Ratio 20.59 H (12.00-20.00) Ratio Glucose 301 H (70-110) mg/dL POC Glucose (mg/dL) 348 H (70-110) mg/dL Calcium 8.4 L (8.7-10.3) mg/dL Procalcitonin (0.02-0.09) ng/mL 04/30/23 04/30/23 Range/Units 06:23 11:35 WBC (4.50-10.00) X 10*3/uL RBC (4.40-5.60) X 10*6/uL Hgb (12.0-15.0) d/dL Hct (39.6-50.0) % Plt Count (140-440) X 10*3/uL Lymphocytes # (0.90-5.00) X 10*3/uL Eosinophils # (0.04-0.35) X 10*3/uL Immature Plt Fraction (1.1-6.1) % Sodium (137-145) mmol/L Carbon Dioxide (21.6-31.8) mmol/L Anion Gap (4.00-12.00) mmol/L BUN (9.0-27.0) mg/dL Creatinine (0.6-1.5) mg/dL Est GFR (CKD-EPI) (>=60) BUN/Creatinine Ratio (12.00-20.00) Ratio Glucose (70-110) mg/dL POC Glucose (mg/dL) 326 H 451 H (70-110) mg/dL Calcium (8.7-10.3) mg/dL Procalcitonin (0.02-0.09) ng/mL Microbiology - Last 24 Hours (Table) 04/27/23 19:04 Gram Stain - Final Sputum Sputum Culture - Final Susana albicans Assessment and Plan Assessment: 1. Acute kidney injury, nonoliguric secondary to hemodynamic ATN secondary to low blood pressure and hemodynamic instability with A. fib with RVR. Possible cardiorenal component as well. Patient is currently being diuresed. Blood pressure remains on the lower side. Serum creatinine increased to 3.2 today. Blood pressure was low with systolic in the 80s yesterday. Chest x-ray from yesterday continues to show pulmonary vascular congestion. Maintained on oral Lasix 2. Chronic kidney disease NKF stage IIIB with baseline creatinine 1.3-1.5 mg/dL secondary to diabetic kidney disease 3. Pseudomonas pneumonia on recent admission on 04/06/2023 maintained on cefe pime at home 4. Acute COPD exacerbation status post treatment and discharge about 10 days ago 5. Cardiomyopathy with ejection fraction 20-30%. Ischemic cardiomyopathy 6. Chronic systolic CHF with acute exacerbation 7. A. fib with RVR 8. COVID- positive on 04/19/2023 9. Volume overload 10. Hyponatremia, hypervolemic. Continue with oral Lasix. Plan: Decrease Lasix to once a day. Chest x-ray continues to show pulmonary vascular congestion. Increase midodrine if blood pressure remains low Repeat labs in a.m.
--- NOTE | 2023-04-30 13:15 | P.PN ---
Subjective Progress Note Date: 04/30/23 Principal diagnosis: Irregular heartbeat. Patient was seen and evaluated on 04/27/2023, remains in the ICU, remains on 4 L nasal cannula, remains on Cardizem drip at 10 mg per hour remains on norepinephrine at 0.0-3 mcg/kg/m, IV fluids at KVO, patient is sleeping and dressing this morning, he had episodes of anxiety yesterday. Under control, patient is maintained on Xanax. Cardiology is planning to cut down his Cardizem down to 5 mg per hour, hopefully with good taper and possibly discontinue norepinephrine today. Overall the patient is doing much better today compared to yesterday. WBC count is 6 hemoglobin is 10.8 electrolytes are normal BUN is 51 creatinine 2.08, improving compared to his admission creatinine of 2.21. Chest x-ray is showing nonspecific interstitial bilateral changes patient is known to have history of nonspecific interstitial pneumonitis. And chronic diastolic congestive heart failure Reevaluated today on 04/28/2023, patient is having more symptoms of cough wheezing shortness of breath and chest tightness. Hence I started the patient on re latively high-dose of steroids. Patient is now off Cardizem, he is off norepinephrine, continues to cough and wheeze and continues to have chest tightness his CBC is relatively normal in the class abnormal BUN is 47 creatinine 2.31, slightly worse compared to yesterday. Chest x-ray showed minimal interstitial edema and pulmonary vascular congestion patient is on diuretics, he is also on bronchodilators, and steroids were added today The patient is seen today 04/29/2023 in follow-up in the intensive care unit. He is currently sitting up in bed. Awake and alert in no acute distress. Maintaining O2 saturations in the 90s on 3 L/m per nasal cannula. He's been afebrile. Norepinephrine has been discontinued. Normal saline at KVO. Chest x-ray reveals left lower lobe infiltrate. Atypical pulmonary edema. Few curly B-lines on the right. Mild congestive heart failure. He remains in atrial fibrillation with a controlled ventricular rate. Blood cultures reveal no growth. Sputum culture revealed no growth. White count 2.5. Hemoglobin 10.0. Platelets 43,000. Sodium 128. Potassium 4.3. Bicarb 21. BUN 54. Creatinine 2.36. Glucose 316. He is continued on Symbicort, albuterol, IV Solu-Medrol. Anticoagulated with Eliquis. Antibiotics in the form of cefepime. Remains on oral diuretics. Metoprolol for rate control. Progress note dated 04/30/2023. The patient is seen today in room 467. Currently, he's in no distress. He is getting oxygen at 4 L by nasal cannula. He's getting a KVO saline IV, which I told the nurse, can be discontinued. The patient is not having any complaints, or distress. White count is 3.7, hemoglobin 9.6, hematocrit 29.3, and platelet count a 67,000. Sodium 133, potassium 4.6, chlorides 99, CO2 22, BUN 66, and creatinine 3.2. Sputum was positive for Susana. Blood cultures are negative. Chest x-ray from yesterday suggests some mild congestive heart failure. Objective - Vital Signs Vital signs: Vital Signs Temp 97.4 F L 04/30/23 01:57 Pulse 77 04/30/23 07:07 Resp 16 04/30/23 07:07 BP 110/74 04/30/23 07:07 Pulse Ox 90 L 04/30/23 07:07 FiO2 Intake & Output 04/29/23 04/30/23 04/30/23 18:59 06:59 18:59 Intake Total 250 275 Output Total 710 750 Balance -460 -475 Weight 105 kg Intake: IV 100 Sodium Chloride 0.9% 500 100 ml 500 ml @ 20 mls/hr IV .Q24H [facility] Rx#:[id number] Oral 150 Blood Product 0 275 Platelet Pheresis Pas 0 275 Psoralen Unit [id number] Output: Urine 710 750 Other: Voiding Method Indwelling Catheter Indwelling Catheter Indwelling Catheter - Exam No acute distress, oriented 3. Currently on 4 L of oxygen. No conversational dyspnea. No use of accessory muscles. HEENT examination is grossly unremarkable. Neck supple. Full range of motion. No adenopathy thyromegaly or neck vein distention. Cardiovascular examination reveals irregular rhythm and rate. S1-S2 normal. No S3 or S4. No discernible murmur noted. Heart rate is 77 bpm. Lungs reveal mild scattered rhonchi. No wheezes or crackles. Breath sounds are equal bilaterally. Saturations are 91%. Abdomen soft bowel sounds are heard. No masses or tenderness. Extremities are intact. No cyanosis clubbing or edema. Skin is without rash or lesion. Neurologic examination is brief but nonfocal. - Labs CBC & Chem 7: 04/30/23 06:20 04/30/23 06:20 Labs: Abnormal Lab Results - Last 24 Hours (Table) 04/29/23 04/29/23 04/29/23 Range/Units 16:21 17:33 20:26 WBC (4.50-10.00) X 10*3/uL RBC (4.40-5.60) X 10*6/uL Hgb (12.0-15.0) d/dL Hct (39.6-50.0) % Plt Count (140-440) X 10*3/uL Lymphocytes # (0.90-5.00) X 10*3/uL Eosinophils # (0.04-0.35) X 10*3/uL Immature Plt Fraction (1.1-6.1) % Sodium 130 L (137-145) mmol/L Carbon Dioxide (21.6-31.8) mmol/L Anion Gap (4.00-12.00) mmol/L BUN (9.0-27.0) mg/dL Creatinine (0.6-1.5) mg/dL Est GFR (CKD-EPI) (>=60) BUN/Creatinine Ratio (12.00-20.00) Ratio Glucose (70-110) mg/dL POC Glucose (mg/dL) 283 H 348 H (70-110) mg/dL Calcium (8.7-10.3) mg/dL 04/30/23 04/30/23 04/30/23 Range/Units 06:20 06:20 06:23 WBC 3.70 L (4.50-10.00) X 10*3/uL RBC 3.05 L (4.40-5.60) X 10*6/uL Hgb 9.6 L (12.0-15.0) d/dL Hct 29.3 L (39.6-50.0) % Plt Count 67 L (140-440) X 10*3/uL Lymphocytes # 0.19 L (0.90-5.00) X 10*3/uL Eosinophils # 0 L (0.04-0.35) X 10*3/uL Immature Plt Fraction 7.4 H (1.1-6.1) % Sodium 133 L (137-145) mmol/L Carbon Dioxide 21.5 L (21.6-31.8) mmol/L Anion Gap 12.50 H (4.00-12.00) mmol/L BUN 65.9 H (9.0-27.0) mg/dL Creatinine 3.2 H (0.6-1.5) mg/dL Est GFR (CKD-EPI) 19 L (>=60) BUN/Creatinine Ratio 20.59 H (12.00-20.00) Ratio Glucose 301 H (70-110) mg/dL POC Glucose (mg/dL) 326 H (70-110) mg/dL Calcium 8.4 L (8.7-10.3) mg/dL 04/30/23 Range/Units 11:35 WBC (4.50-10.00) X 10*3/uL RBC (4.40-5.60) X 10*6/uL Hgb (12.0-15.0) d/dL Hct (39.6-50.0) % Plt Count (140-440) X 10*3/uL Lymphocytes # (0.90-5.00) X 10*3/uL Eosinophils # (0.04-0.35) X 10*3/uL Immature Plt Fraction (1.1-6.1) % Sodium (137-145) mmol/L Carbon Dioxide (21.6-31.8) mmol/L Anion Gap (4.00-12.00) mmol/L BUN (9.0-27.0) mg/dL Creatinine (0.6-1.5) mg/dL Est GFR (CKD-EPI) (>=60) BUN/Creatinine Ratio (12.00-20.00) Ratio Glucose (70-110) mg/dL POC Glucose (mg/dL) 451 H (70-110) mg/dL Calcium (8.7-10.3) mg/dL Microbiology - Last 24 Hours (Table) 04/27/23 19:04 Gram Stain - Final Sputum Sputum Culture - Final Susana albicans Assessment and Plan Assessment: Chronic atrial fibrillation, patient presented with atrial fibrillation with RVR. Anticoagulated with Eliquis. Acute exacerbation of chronic systolic congestive heart failure, ejection fraction 30-35% on 03/29/2023. Acute exacerbation of COPD. COVID-19 infection. Recent history of pneumonia secondary to pseudomonas aeruginosa, on cefepime. Moderate severe aortic stenosis with pulmonary hypertension. Chronic kidney disease stage III. Former smoker. History of coronary artery disease and previous CABG and stenting. Dyslipidemia. Hypothyroidism. Poor overall functional performance based on the above-mentioned multiple comorbidities. Plan: Plan dated 04/30/2023. The patient appears to be relatively stable. The patient's atrial fibrillation is under good control. The patient remains on a factor X a inhibitor. Labs, x-rays, medications are reviewed. The patient remains on cefepime. Additional recommendations and suggestions are forthcoming. The IV Solu-Medrol be discontinued. The patient will be started on prednisone 30 mg a day. Discharge planning underway. Time with Patient: Less than 30
--- NOTE | 2023-04-30 14:42 | P.PN ---
Subjective Progress Note Date: 04/29/23 Principal diagnosis: Pneumonia Patient is a 77-year male with multiple comorbidities including COPD diastolic heart failure was recently diagnosed with Pseudomonas pneumonia, patient was subsequently diagnosed with a Covid 19 [facility] has been brought into the hospital for shortness of breath A. fib with RVR and did have hypotension on today's evaluation that is 04/29/2023, the patient continues to be afebrile, patient is breathing comfortably on 3 L nasal cannula oxygen, patient is off both Cardizem and Levophed, patient denies any chest pain did have a cough and bringing up some sputum no nausea vomiting abdominal pain or diarrhea Objective - Vital Signs Vital signs: Vital Signs Temp 97.6 F 04/29/23 08:00 Pulse 75 04/29/23 11:00 Resp 14 04/29/23 11:00 BP 97/69 04/29/23 11:00 Pulse Ox 95 04/29/23 12:00 FiO2 Intake & Output 04/28/23 04/29/23 04/29/23 18:59 06:59 18:59 Intake Total 978.942 410 100 Output Total 380 920 510 Balance 598.942 -510 -410 Weight 105 kg Intake: IV 220 260 100 Sodium Chloride 0.9% 500 220 260 100 ml 500 ml @ 20 mls/hr IV .Q24H [facility] Rx#:[id number] Intake, IV Titration 108.942 Amount Cefepime 2 gm In Sodium 100 Chloride 0.9% 100 ml @ 25 mls/hr IVPB Q12H [facility] Rx# :[id number] Diltiazem 125 mg In 0 Sodium Chloride 0.9% 100 ml @ Per Protocol IV .Q0M [facility] Rx#:[id number] Norepinephrine 4 mg In 8.942 Sodium Chloride 0.9% 250 ml @ 0.03 MCG/KG/MIN 11. 922 mls/hr IV .[id number] [facility] Rx#:[id number] Oral 650 150 Output: Urine 380 920 510 Other: Voiding Method Indwelling Catheter Indwelling Catheter Indwelling Catheter - Exam GENERAL DESCRIPTION: An elderly male lying in bed in no distress RESPIRATORY SYSTEM: Unlabored breathing , bilateral expiratory wheezes HEART: S1 S2 regular rate and rhythm , ABDOMEN: Soft , no tenderness EXTREMITIES: No edema feet - Labs CBC & Chem 7: 04/30/23 06:20 04/30/23 06:20 Labs: Abnormal Lab Results - Last 24 Hours (Table) 04/28/23 04/28/23 04/28/23 Range/Units 03:54 16:31 21:05 WBC (3.8-10.6) k/uL RBC (4.30-5.90) m/uL Hgb (13.0-17.5) gm/dL Hct (39.0-53.0) % Plt Count (150-450) k/uL Lymphocytes # (1.0-4.8) k/uL Fibrinogen 644 H (200-500) mg/dL Sodium (137-145) mmol/L Carbon Dioxide (22-30) mmol/L BUN (9-20) mg/dL Creatinine (0.66-1.25) mg/dL Glucose (74-99) mg/dL POC Glucose (mg/dL) 247 H 421 H (70-110) mg/dL Hemoglobin A1c (<=6.0) % Calcium (8.4-10.2) mg/dL C-Reactive Protein (<1.0) mg/dL 04/28/23 04/29/23 04/29/23 Range/Units 21:09 01:59 02:57 WBC (3.8-10.6) k/uL RBC (4.30-5.90) m/uL Hgb (13.0-17.5) gm/dL Hct (39.0-53.0) % Plt Count (150-450) k/uL Lymphocytes # (1.0-4.8) k/uL Fibrinogen (200-500) mg/dL Sodium (137-145) mmol/L Carbon Dioxide (22-30) mmol/L BUN (9-20) mg/dL Creatinine (0.66-1.25) mg/dL Glucose (74-99) mg/dL POC Glucose (mg/dL) 423 H 451 H 452 H (70-110) mg/dL Hemoglobin A1c (<=6.0) % Calcium (8.4-10.2) mg/dL C-Reactive Protein (<1.0) mg/dL 04/29/23 04/29/23 04/29/23 Range/Units 05:11 06:02 06:02 WBC (3.8-10.6) k/uL RBC (4.30-5.90) m/uL Hgb (13.0-17.5) gm/dL Hct (39.0-53.0) % Plt Count (150-450) k/uL Lymphocytes # (1.0-4.8) k/uL Fibrinogen (200-500) mg/dL Sodium 128 L (137-145) mmol/L Carbon Dioxide 21 L (22-30) mmol/L BUN 54 H (9-20) mg/dL Creatinine 2.36 H (0.66-1.25) mg/dL Glucose 316 H (74-99) mg/dL POC Glucose (mg/dL) 376 H (70-110) mg/dL Hemoglobin A1c 9.4 H (<=6.0) % Calcium 7.8 L (8.4-10.2) mg/dL C-Reactive Protein 15.1 H (<1.0) mg/dL 04/29/23 04/29/23 04/29/23 Range/Units 06:02 06:05 11:29 WBC 2.5 L (3.8-10.6) k/uL RBC 3.17 L (4.30-5.90) m/uL Hgb 10.0 L D (13.0-17.5) gm/dL Hct 31.2 L (39.0-53.0) % Plt Count 43 L (150-450) k/uL Lymphocytes # 0.2 L (1.0-4.8) k/uL Fibrinogen (200-500) mg/dL Sodium (137-145) mmol/L Carbon Dioxide (22-30) mmol/L BUN (9-20) mg/dL Creatinine (0.66-1.25) mg/dL Glucose (74-99) mg/dL POC Glucose (mg/dL) 322 H 171 H (70-110) mg/dL Hemoglobin A1c (<=6.0) % Calcium (8.4-10.2) mg/dL C-Reactive Protein (<1.0) mg/dL Microbiology - Last 24 Hours (Table) 04/27/23 19:04 Gram Stain - Preliminary Sputum Sputum Culture - Preliminary Susana albicans 04/25/23 15:58 Blood Culture - Preliminary Blood 04/25/23 15:50 Blood Culture - Preliminary Blood Assessment and Plan (1) COVID-19 Current Visit: Yes Status: Acute Code(s): U07.1 - COVID-19 SNOMED Code(s): 384823460 (2) Pneumonia Current Visit: Yes Status: Acute Code(s): J18.9 - PNEUMONIA, UNSPECIFIED ORGANISM SNOMED Code(s): 133924707 Plan: 1patient was in the hospital with increasing shortness of breath which is likel y multifactorial possibly related to underlying worsening of diastolic heart failure from A-fib with RVR clinically doubt any worsening pneumonia the patient did have positive COVID 19 and may be of possibly contributing however chest x- ray was negative for any pneumonia patient not running any fever did have a normal white count with mild lymphopenia. Continue the current supportive treatment 2-patient did have some clinical improvement and will continue with cefepime and monitor clinical course closely Time with Patient: Less than 30
--- NOTE | 2023-04-30 14:43 | P.PN ---
Subjective Progress Note Date: 04/30/23 Principal diagnosis: Pneumonia Patient is a 77-year male with multiple comorbidities including COPD diastolic heart failure was recently diagnosed with Pseudomonas pneumonia, patient was subsequently diagnosed with a Covid 19 on 04/23/2023 at the local [place] [facility] has been brought into the hospital for shortness of breath A. fib with RVR and did have hypotension on today's evaluation that is 04/30/2023, the patient denies any fever or any chills, patient is breathing comfortably on 4 L nasal cannula oxygen, patient has been transferred out of the ICU, patient denies any chest pain did have a cough and bringing up some sputum no nausea vomiting abdominal pain or diarrhea Objective - Vital Signs Vital signs: Vital Signs Temp 97.4 F L 04/30/23 01:57 Pulse 77 04/30/23 07:07 Resp 16 04/30/23 07:07 BP 110/74 04/30/23 07:07 Pulse Ox 90 L 04/30/23 07:07 FiO2 Intake & Output 04/29/23 04/30/23 04/30/23 18:59 06:59 18:59 Intake Total 250 275 Output Total 710 750 Balance -460 -475 Weight 105 kg Intake: IV 100 Sodium Chloride 0.9% 500 100 ml 500 ml @ 20 mls/hr IV .Q24H [facility] Rx#:[id number] Oral 150 Blood Product 0 275 Platelet Pheresis Pas 0 275 Psoralen Unit [id number] Output: Urine 710 750 Other: Voiding Method Indwelling Catheter Indwelling Catheter Indwelling Catheter - Exam GENERAL DESCRIPTION: An elderly male lying in bed in no distress RESPIRATORY SYSTEM: Unlabored breathing , decreased intensity of breath sounds, no wheeze HEART: S1 S2 regular rate and rhythm , ABDOMEN: Soft , no tenderness EXTREMITIES: No edema feet - Labs CBC & Chem 7: 04/30/23 06:20 04/30/23 06:20 Labs: Abnormal Lab Results - Last 24 Hours (Table) 04/29/23 04/29/23 04/29/23 Range/Units 16:21 17:33 20:26 WBC (4.50-10.00) X 10*3/uL RBC (4.40-5.60) X 10*6/uL Hgb (12.0-15.0) d/dL Hct (39.6-50.0) % Plt Count (140-440) X 10*3/uL Lymphocytes # (0.90-5.00) X 10*3/uL Eosinophils # (0.04-0.35) X 10*3/uL Immature Plt Fraction (1.1-6.1) % Sodium 130 L (137-145) mmol/L Carbon Dioxide (21.6-31.8) mmol/L Anion Gap (4.00-12.00) mmol/L BUN (9.0-27.0) mg/dL Creatinine (0.6-1.5) mg/dL Est GFR (CKD-EPI) (>=60) BUN/Creatinine Ratio (12.00-20.00) Ratio Glucose (70-110) mg/dL POC Glucose (mg/dL) 283 H 348 H (70-110) mg/dL Calcium (8.7-10.3) mg/dL 04/30/23 04/30/23 04/30/23 Range/Units 06:20 06:20 06:23 WBC 3.70 L (4.50-10.00) X 10*3/uL RBC 3.05 L (4.40-5.60) X 10*6/uL Hgb 9.6 L (12.0-15.0) d/dL Hct 29.3 L (39.6-50.0) % Plt Count 67 L (140-440) X 10*3/uL Lymphocytes # 0.19 L (0.90-5.00) X 10*3/uL Eosinophils # 0 L (0.04-0.35) X 10*3/uL Immature Plt Fraction 7.4 H (1.1-6.1) % Sodium 133 L (137-145) mmol/L Carbon Dioxide 21.5 L (21.6-31.8) mmol/L Anion Gap 12.50 H (4.00-12.00) mmol/L BUN 65.9 H (9.0-27.0) mg/dL Creatinine 3.2 H (0.6-1.5) mg/dL Est GFR (CKD-EPI) 19 L (>=60) BUN/Creatinine Ratio 20.59 H (12.00-20.00) Ratio Glucose 301 H (70-110) mg/dL POC Glucose (mg/dL) 326 H (70-110) mg/dL Calcium 8.4 L (8.7-10.3) mg/dL 04/30/23 Range/Units 11:35 WBC (4.50-10.00) X 10*3/uL RBC (4.40-5.60) X 10*6/uL Hgb (12.0-15.0) d/dL Hct (39.6-50.0) % Plt Count (140-440) X 10*3/uL Lymphocytes # (0.90-5.00) X 10*3/uL Eosinophils # (0.04-0.35) X 10*3/uL Immature Plt Fraction (1.1-6.1) % Sodium (137-145) mmol/L Carbon Dioxide (21.6-31.8) mmol/L Anion Gap (4.00-12.00) mmol/L BUN (9.0-27.0) mg/dL Creatinine (0.6-1.5) mg/dL Est GFR (CKD-EPI) (>=60) BUN/Creatinine Ratio (12.00-20.00) Ratio Glucose (70-110) mg/dL POC Glucose (mg/dL) 451 H (70-110) mg/dL Calcium (8.7-10.3) mg/dL Microbiology - Last 24 Hours (Table) 04/27/23 19:04 Gram Stain - Final Sputum Sputum Culture - Final Susana albicans Assessment and Plan (1) COVID-19 Current Visit: Yes Status: Acute Code(s): U07.1 - COVID-19 SNOMED Code(s): 014523462 (2) Pneumonia Current Visit: Yes Status: Acute Code(s): J18.9 - PNEUMONIA, UNSPECIFIED ORGANISM SNOMED Code(s): 440902408 Plan: 1patient was in the hospital with increasing shortness of breath which is likely multifactorial possibly related to underlying worsening of diastolic heart failure from A-fib with RVR clinically doubt any worsening pneumonia the patient did have positive COVID 19 and may be of possibly contributing however chest x-ray was negative for any pneumonia patient not running any fever did have a normal white count with mild lymphopenia. Continue the current supportive treatment 2-patient did have some clinical improvement and currently being treated with cefepime, repeat sputum showing Susana more likely colonizer hopefully would not need IV antibiotics on discharge
[2023-04-30] MEDS ORDERED: INSULIN DETEMIR (LEVEMIR) 100 UNIT/ML SYR SQ STA (14:58)
--- NOTE | 2023-04-30 15:05 | P.PN ---
Subjective Progress Note Date: 04/30/23 Patient is a 69-year-old male came in with the complaints of weakness of his of breath. Found to be in congestive heart failure exacerbation. Patient was started on IV Lasix. Patient the was receiving IV antibiotics as an outpatient cefepime for pseudomonas pneumonia recently. Patient was also diagnosed with COVID-19. Patient Has acute renal failure with creatinine of around 2.5 baseline is around 1.3. Patient does have chronic kidney disease stage III does have history of can start failure chronic systolic dysfunction with the EF of around 30-35%. Patient does have severe pulmonary hypertension and severe stenosis patient is hyponatremic as well with mildly elevated troponins. Patient is presently on 2 L of oxygen was on 4 L of oxygen. Patient does have history of atrial fibrillation presently in A. fib with heart on 129. 04/27/2023 Patient is evaluated in the intensive care unit today continues to be short of breath and fatigued. Patient was diagnosed with COVID outpatient on the at [facility]. Continues on IV cefepime. Heart rate controlled in the 80-90s patient continues on IV cardizem and resumed on eliquis with renal dosing. Patient creatinine improved slightly to 2.08 today. Continues on levophed and blood pressure in the 90s systolic. 04/28/2023 Patient evaluated today in the ICU remains fatigued. Being treated for pseudomonas in the sputum with IV cefepime diagnosed prior admission. ID is following. Patient also covid positive. Blood glucose in the 40s this morning amaryl is discontinued and patient is given glucerna TID with meals. B12 low normal at 298 and started on oral supplementation. Platelet count is low today at 53, hematology consulted and patient can continue on eliquis if platelet count remains above 50. Cardizem gtt and levophed are currently off. Blood pressure in the high 90s to low 100 systolic. Afebrile, on 2L nasal cannula. 04/29/2023 Patient is seen in follow-up in the ICU with multiple medical consultations following. Patient is considered a possible downgrade out of the ICU awaiting a bed and has been off Cardizem drip and pressor support. Patient is on anticoagulation along with inhaled treatments as patient does have Covid and continues on 3 L via nasal cannula. Patient is maintained on diuretics along with antibiotics and will continue. Patient will need PT/OT therapy evaluation. No reports of nausea or vomiting noted patient is tolerating diet. Blood sugars have been elevated and most recently a few days ago his oral diabetic agents were placed on hold for hypoglycemia. Will continue with sliding scale and add long-acting and continue to monitor with Accu-Cheks before meals and at bedtime. Patient is currently afebrile denies worsening shortness of breath. 04/30/2023 Patient is seen in follow-up out of the ICU on [facility] unit today currently sitting up in the chair reports to feeling somewhat improved. Patient is continued on 4 L via nasal cannula maintaining oxygen saturations above 90%. Hemoglobin is stable at 9.6 and platelets are 67 and recommend monitoring closely as patient is on anticoagulation. Patient did receive a unit of platelets yesterday. Sodium is improved at 133 although kidney functions are worsening and BUN is 65.9 with a creatinine of 3.2. Nephrology following and has transitioned to oral Lasix to once daily as chest x-ray continues to show p ulmonary vascular congestion. Recommending follow-up labs as patient is making good urine. Patient's blood sugars are significantly uncontrolled and will increase long-acting to twice daily as well as sliding scale and will add pre- meal insulins. Patient is currently afebrile denies chest pain or worsening shortness of breath. Await PT/OT therapy evaluation. Patient will likely need rehab on discharge. Review of Systems Constitutional: Reports fatigue,denied any fever. Cardio vascular: denied any chest pain, palpitations Gastrointestinal: denied any nausea, vomiting, diarrhea Pulmonary: Reports shortness of breath and cough with green/brown sputum although reports some improvement in shortness of breath Neurologic denied any new focal deficits Weakness All inpatient medications were reviewed and appropriate changes in these medications as dictated in the interval history and assessment and plan. PHYSICAL EXAMINATION: GENERAL: The patient is alert and oriented x3, Well developed, well nourished. Obese. HEENT: Pupils are round and equally reacting to light. EOMI. No scleral icterus. No conjunctival pallor. Normocephalic, atraumatic. No pharyngeal erythema. No thyromegaly. CARDIOVASCULAR: S1 and S2 present. No murmurs, rubs, or gallops. PULMONARY: Bilateral coarse rhonchi ABDOMEN: Soft, nontender, nondistended, normoactive bowel sounds. No palpable organomegaly. MUSCULOSKELETAL: No joint swelling or deformity. EXTREMITIES: No cyanosis, clubbing, or pedal edema. NEUROLOGICAL: Gross neurological examination did not reveal any focal deficits. Generalized weakness SKIN: No rashes. Assessment: -Acute hypoxic respiratory failure multifactorial due to acute CHF, pseudomonas pneumonia and covid infection -Acute renal failure due to ATN from hypotension -Hypovolemic shock requiring vasopressor support currently off pressor support -Recent Pseudomonas pneumonia for which the patient is on IV cefepime -Atrial fibrillation paroxysmal: with RVR on admission, IV Cardizem discontinued currently rate controlled -COPD with acute exacerbation -Diabetes mellitus, type II, insulin-dependent uncontrolled with hyperglycemia -COVID-19 pneumonia -Thrombocytopenia felt to be multifactorial due to combination of cefepime effects, and recent illness -Moderate aortic stenosis and pulmonary hypertension -Ischemic cardiomyopathy -Chronic kidney disease stage III secondary to diabetic nephropathy -Coronary artery disease with CABG in the past -Hypothyroidism -DVT prophylaxis: On anticoagulation -GI prophylaxis -Full Code Plan: Hematology recommending to monitor platelets if they drop below 50 recommend giving a unit of platelets which was given yesterday and platelets have improved slightly at 67 and will follow-up with repeat labs. Patient is maintained on oral anticoagulation and will continue Continue antibiotics and supportive care pending final sputum and blood cultures, infectious disease following, preliminary culture showing Susana Follow up labs in AM. Kidney functions worsening on top of kidney disease with nephrology following has transitioned oral Lasix and daily with good urine output recommending follow-up labs Blood sugars extremely uncontrolled and will continue with Accu-Cheks and will increase long-acting as well as sliding scale and will add pre-meal insulins as well. PT/OT consultation. Social work/case management following and [facility] once stabilized and cleared by consultations Recommend monitor Accu-Cheks before meals and at bedtime and will add long- acting and continue sliding scale as blood sugars were elevated The impression and plan of care has been dictated by Amy Reardon, Nurse Practitioner as directed. Dr. Jaquan MD I have performed a history and examination and MDM of this patient, discussed the same with the dictator, and agree with the dictator's assessment and plan as written ,documented as a scribe. Based on total visit time, I have performed more than 50% of the visit. Objective - Vital Signs Vital signs: Vital Signs Temp 97.4 F L 04/30/23 01:57 Pulse 77 04/30/23 07:07 Resp 16 04/30/23 07:07 BP 110/74 04/30/23 07:07 Pulse Ox 90 L 04/30/23 07:07 FiO2 Intake & Output 04/29/23 04/30/23 04/30/23 18:59 06:59 18:59 Intake Total 250 275 Output Total 710 750 Balance -460 -475 Weight 105 kg Intake: IV 100 Sodium Chloride 0.9% 500 100 ml 500 ml @ 20 mls/hr IV .Q24H [facility] Rx#:[id number] Oral 150 Blood Product 0 275 Platelet Pheresis Pas 0 275 Psoralen Unit [id number] Output: Urine 710 750 Other: Voiding Method Indwelling Catheter Indwelling Catheter - Labs CBC & Chem 7: 04/30/23 06:20 04/30/23 06:20 Labs: Abnormal Lab Results - Last 24 Hours (Table) 04/29/23 04/29/23 04/29/23 Range/Units 06:02 06:02 11:29 Sodium (137-145) mmol/L POC Glucose (mg/dL) 171 H (70-110) mg/dL Hemoglobin A1c 9.4 H (<=6.0) % Procalcitonin 0.39 H (0.02-0.09) ng/mL 04/29/23 04/29/23 04/29/23 Range/Units 16:21 17:33 20:26 Sodium 130 L (137-145) mmol/L POC Glucose (mg/dL) 283 H 348 H (70-110) mg/dL Hemoglobin A1c (<=6.0) % Procalcitonin (0.02-0.09) ng/mL 04/30/23 Range/Units 06:23 Sodium (137-145) mmol/L POC Glucose (mg/dL) 326 H (70-110) mg/dL Hemoglobin A1c (<=6.0) % Procalcitonin (0.02-0.09) ng/mL Microbiology - Last 24 Hours (Table) 04/27/23 19:04 Gram Stain - Preliminary Sputum Sputum Culture - Preliminary Susana albicans
[2023-04-30] MEDS: GABAPENTIN 400 MG CAP PO SCH ×3 (15:25→20:47)
[2023-04-30 16:50] LABS: Glucose,Whole Blood 472 mg/dL (70-110)
[2023-04-30] MEDS: CEFEPIME 1 GM in SODIUM CHLORIDE 0.9% 50 ML IVPB SCH (17:17)
[2023-04-30] MEDS ORDERED: INSULIN ASPART (NovoLOG) 100 UNIT/ML VIAL SQ SCH (17:30)
[2023-04-30 20:43] LABS: Glucose,Whole Blood 389 mg/dL (70-110)
[2023-04-30] MEDS: ATORVASTATIN 40 MG TAB PO SCH (20:47)
[2023-04-30] MEDS ORDERED: INSULIN DETEMIR (LEVEMIR) 100 UNIT/ML SYR SQ SCH ×2 (21:00)
[2023-05-01] MEDS: MIDODRINE 5 MG TAB PO SCH ×3 (06:00→16:36)
[2023-05-01] MEDS: PANTOPRAZOLE 40 MG TABLET PO SCH (06:00)
[2023-05-01] MEDS: FUROSEMIDE 40 MG TAB PO SCH (06:00)
[2023-05-01] MEDS: CEFEPIME 1 GM in SODIUM CHLORIDE 0.9% 50 ML IVPB SCH ×2 (06:00→17:40)
[2023-05-01 06:24] LABS: Glucose,Whole Blood 232 mg/dL (70-110)
[2023-05-01] MEDS: INSULIN ASPART (NovoLOG) 100 UNIT/ML VIAL SQ SCH ×7 (06:37→21:07)
--- NOTE | 2023-05-01 08:10 | CT ---
EXAMINATION TYPE: CT brain wo con CT DLP: 1113.4 mGycm, Automated exposure control for dose reduction was used. DATE OF EXAM: 05/01/2023 12:53 AM COMPARISON: Prior CT Brain from 06/17/2021. CLINICAL INDICATION:Male, 77 years old with history of AMS, AMS TECHNIQUE: Brain: Multiple axial CT images of the brain were obtained without IV contrast. Coronal and sagittal reformats reviewed. FINDINGS: Brain: Motion degraded examination. Extra-axial spaces: No abnormal extra-axial fluid collections. Ventricular system: Within normal limits Cerebral parenchyma: Cerebral atrophy. No acute intraparenchymal hemorrhage or mass effect. The loyola -white junction is well differentiated. Scattered hypoattenuating areas are seen within the white mat ter. Cerebellum: Unremarkable. Mass effect: No evidence of midline shift. Intracranial vasculature: Atherosclerotic calcifications of the intracranial vessels. Soft tissues: Normal. Calvarium/osseous structures: No depressed skull fracture. Paranasal sinuses and mastoid air cells: Chronic partial opacification of left inferior mastoid air c ells. Visualized orbits: Bilateral aphakia IMPRESSION: Motion degraded examination which limits evaluation. 1. No acute intracranial process. 2. Nonspecific white matter changes, likely secondary to chronic small vessel ischemic disease.
[2023-05-01] MEDS: ALBUTEROL HFA INHALER INHALATION PRN ×3 (08:47→16:03)
[2023-05-01] MEDS: SYMBICORT 80-4.5 MCG INHALER INHALATION SCH ×2 (08:47→16:35)
[2023-05-01 10:26] LABS: African American GFR (CKD) 19 (>60 ml/min/1.73 sqM); Anion Gap 10 mmol/L; Blood Urea Nitrogen 84 mg/dL (9-20); Calcium 8.1 mg/dL (8.4-10.2); Carbon Dioxide 24 mmol/L (22-30); Chloride 99 mmol/L (98-107); Glucose 162 mg/dL (74-99); Non-African American GFR(CKD) 16 (>60 ml/min/1.73 sqM); Potassium 4.3 mmol/L (3.5-5.1); Sodium 133 mmol/L (137-145)
[2023-05-01 10:34] LABS: Basophils % (A) 0 %; Eosinophils % (A) 0 %; HCT 32.8 % (39.0-53.0); Lymphocytes # (A) 0.2 k/uL (1.0-4.8); Lymphocytes % (A) 4 %; MCH 32.4 pg (25.0-35.0); MCHC 33.4 g/dL (31.0-37.0); MCV 96.9 fL (80.0-100.0); Mean Platelet Volume 10.9; Monocytes # (A) 0.6 k/uL (0-1.0); Monocytes % (A) 13 %; Neutrophils # (A) 3.9 k/uL (1.3-7.7); Neutrophils % (A) 81 %; Poikilocytosis Slight; RBC 3.39 m/uL (4.30-5.90); RDW 14.4 % (11.5-15.5); WBC 4.9 k/uL (3.8-10.6)
[2023-05-01] MEDS: CHOLECALCIFEROL 25 MCG (1000 IU) TABLET PO SCH (10:40)
[2023-05-01] MEDS: ASCORBIC ACID 500 MG TAB PO SCH (10:40)
[2023-05-01] MEDS: INSULIN DETEMIR (LEVEMIR) 100 UNIT/ML SYR SQ SCH ×2 (10:40→21:08)
[2023-05-01] MEDS: predniSONE 10 MG TAB PO SCH (10:40)
[2023-05-01] MEDS: ZINC SULFATE 220 MG CAP PO SCH (10:40)
[2023-05-01] MEDS: METOPROLOL SUCCINATE (ER) 50 MG TAB.ER.24H PO SCH (10:41)
[2023-05-01] MEDS: LEVOTHYROXINE 125 MCG TAB PO SCH (10:41)
[2023-05-01] MEDS: LEVOTHYROXINE 112 MCG TAB PO SCH (10:41)
[2023-05-01] MEDS: CYANOCOBALAMIN 500 MCG TAB PO SCH (10:41)
--- NOTE | 2023-05-01 10:44 | P.PN ---
Subjective Progress Note Date: 05/01/23 This is a 77-year-old male patient who presented to the hospital complaints of weakness and shortness of breath on 04/25/2023. upon arrival patient was found to be in CHF started on IV Lasix. Patient also testing positive for COVID-19 outside facility. Patient was also found to be acute on chronic renal with a creatinine of 2.5. Patient has extensive medical history including chronic systolic dysfunction, atrial fibrillation, severe pulmonary hypertension and severe stenosis. Patient was initially admitted to the intensive care unit and required Levophed for pressure support. Pulmonary, infectious disease, cardiology and nephrology services were consulted. On 05/01/2023 and resuming care patient Dr. Partida's group previously covering Patient currently resting comfortably in bed on MedSurg unit. Patient having increased confusion head CT was completed showing no acute intracranial process. Nonspecific white matter changes likely secondary to chronic small vessel ischemic disease. Will consult neurology services. Patient's creatinine also increasing to 3.4 and bun 84. Patient was recently transitioned to by mouth Lasix. Nephrology services are following. Patient remains on IV antibiotics infectious services following. Her vital signs temp 97.2, heart rate 81, respiratory rate 18, blood pressure 130/73 with pulse ox 98% on 4 L Objective - Vital Signs Vital signs: Vital Signs Temp 97.2 F L 05/01/23 01:11 Pulse 81 05/01/23 01:00 Resp 18 05/01/23 01:00 BP 130/73 05/01/23 01:00 Pulse Ox 94 L 05/01/23 08:47 FiO2 Intake & Output 04/30/23 05/01/23 05/01/23 18:59 06:59 18:59 Intake Total 600 Output Total 1 500 Balance 599 -500 Intake: Tube Feeding 600 Output: Urine 500 Stool 1 Other: Voiding Method Indwelling Catheter Indwelling Catheter - Exam Head normocephalic Neck supple Lungs clear to auscultation bilaterally no wheezing or crackles Heart regular rate and rhythm S1-S2, no rub or gallop Abdomen is soft nontender nondistended positive bowel sounds no hepatosplenomegaly Extremities no edema Neuro alert and orientated to 3. Intermittent confusion - Labs CBC & Chem 7: 04/30/23 06:20 05/01/23 09:02 Labs: Abnormal Lab Results - Last 24 Hours (Table) 04/30/23 04/30/23 04/30/23 Range/Units 06:20 06:20 11:35 WBC 3.70 L (4.50-10.00) X 10*3/uL RBC 3.05 L (4.40-5.60) X 10*6/uL Hgb 9.6 L (12.0-15.0) d/dL Hct 29.3 L (39.6-50.0) % Plt Count 67 L (140-440) X 10*3/uL Lymphocytes # 0.19 L (0.90-5.00) X 10*3/uL Eosinophils # 0 L (0.04-0.35) X 10*3/uL Immature Plt Fraction 7.4 H (1.1-6.1) % Sodium 133 L (135-145) mmol/L Carbon Dioxide 21.5 L (21.6-31.8) mmol/L Anion Gap 12.50 H (4.00-12.00) mmol/L BUN 65.9 H (9.0-27.0) mg/dL Creatinine 3.2 H (0.6-1.5) mg/dL Est GFR (CKD-EPI) 19 L (>=60) BUN/Creatinine Ratio 20.59 H (12.00-20.00) Ratio Glucose 301 H (70-110) mg/dL POC Glucose (mg/dL) 451 H (70-110) mg/dL Calcium 8.4 L (8.7-10.3) mg/dL 04/30/23 04/30/23 05/01/23 Range/Units 16:48 20:41 06:23 WBC (4.50-10.00) X 10*3/uL RBC (4.40-5.60) X 10*6/uL Hgb (12.0-15.0) d/dL Hct (39.6-50.0) % Plt Count (140-440) X 10*3/uL Lymphocytes # (0.90-5.00) X 10*3/uL Eosinophils # (0.04-0.35) X 10*3/uL Immature Plt Fraction (1.1-6.1) % Sodium (135-145) mmol/L Carbon Dioxide (21.6-31.8) mmol/L Anion Gap (4.00-12.00) mmol/L BUN (9.0-27.0) mg/dL Creatinine (0.6-1.5) mg/dL Est GFR (CKD-EPI) (>=60) BUN/Creatinine Ratio (12.00-20.00) Ratio Glucose (70-110) mg/dL POC Glucose (mg/dL) 472 H 389 H 232 H (70-110) mg/dL Calcium (8.7-10.3) mg/dL 05/01/23 Range/Units 09:02 WBC (4.50-10.00) X 10*3/uL RBC (4.40-5.60) X 10*6/uL Hgb (12.0-15.0) d/dL Hct (39.6-50.0) % Plt Count (140-440) X 10*3/uL Lymphocytes # (0.90-5.00) X 10*3/uL Eosinophils # (0.04-0.35) X 10*3/uL Immature Plt Fraction (1.1-6.1) % Sodium 133 L (135-145) mmol/L Carbon Dioxide (21.6-31.8) mmol/L Anion Gap (4.00-12.00) mmol/L BUN 84 H (9.0-27.0) mg/dL Creatinine 3.46 H (0.6-1.5) mg/dL Est GFR (CKD-EPI) (>=60) BUN/Creatinine Ratio (12.00-20.00) Ratio Glucose 162 H (70-110) mg/dL POC Glucose (mg/dL) (70-110) mg/dL Calcium 8.1 L (8.7-10.3) mg/dL Microbiology - Last 24 Hours (Table) 04/25/23 15:58 Blood Culture - Final Blood 04/25/23 15:50 Blood Culture - Final Blood 04/27/23 19:04 Gram Stain - Final Sputum Sputum Culture - Final Susana albicans Assessment and Plan Assessment: 1. Acute hypoxic respiratory failure secondary to acute CHF, pseudomonas pneumonia and Covid infection 2. Acute renal failure due to ATN from hypotension 3. Hypovolemic shock requiring vasopressor support, resolved 4. Recent Pseudomonas pneumonia. Patient was treated outpatient 5. Increased confusion 6. History of paroxysmal atrial fibrillation. Patient did require IV Cardizem. Rate has improved 7. Diabetes mellitus type 2 8. COVID-19 pneumonia diagnosed outpatient 9. Thrombocytopenia likely secondary from antibiotics in recent illness 10. Ischemic cardiomyopathy 11. Moderate aortic stenosis and pulmonary hypertension 12. History of coronary artery bypass graft surgery 13. History of hypothyroidism DVT prophylaxis eliquis GI prophylaxis Protonix Patient maintained on IV antibiotics Nephrology, pulmonary, infectious and cardiology services are following Neurology services consulted for confusion Repeat labs ordered
[2023-05-01 10:55] LABS: Glucose,Whole Blood 148 mg/dL (70-110)
[2023-05-01 11:01] LABS: Platelet Count 78 k/uL (150-450)
--- NOTE | 2023-05-01 11:36 | XR ---
EXAMINATION TYPE: XR chest 1V portable DATE OF EXAM: 05/01/2023 HISTORY: Shortness of breath. COMPARISON: 04/29/2022 TECHNIQUE: Single view of the chest is submitted. FINDINGS: Demonstrated are scattered senescent parenchymal change. Pulmonary venous congestion with cardiomegaly persists although appears to be slightly improved. Desirae r and mediastinal structures are within normal limits. Degenerative changes are seen of the dorsal spine. IMPRESSION: 1. Improving features of mild congestive failure.
[2023-05-01] MEDS: APIXABAN 2.5 MG TABLET PO SCH ×2 (11:50→16:36)
[2023-05-01 12:05] LABS: Glucose,Whole Blood 140 mg/dL (70-110)
--- NOTE | 2023-05-01 12:38 | P.PN ---
Subjective Progress Note Date: 05/01/23 Principal diagnosis: Irregular heartbeat. Patient was seen and evaluated on 04/27/2023, remains in the ICU, remains on 4 L nasal cannula, remains on Cardizem drip at 10 mg per hour remains on norepinephrine at 0.0-3 mcg/kg/m, IV fluids at KVO, patient is sleeping and dressing this morning, he had episodes of anxiety yesterday. Under control, patient is maintained on Xanax. Cardiology is planning to cut down his Cardizem down to 5 mg per hour, hopefully with good taper and possibly discontinue norepinephrine today. Overall the patient is doing much better today compared to yesterday. WBC count is 6 hemoglobin is 10.8 electrolytes are normal BUN is 51 creatinine 2.08, improving compared to his admission creatinine of 2.21. Chest x-ray is showing nonspecific interstitial bilateral changes patient is known to have history of nonspecific interstitial pneumonitis. And chronic diastolic congestive heart failure Reevaluated today on 04/28/2023, patient is having more symptoms of cough wheezing shortness of breath and chest tightness. Hence I started the patient on re latively high-dose of steroids. Patient is now off Cardizem, he is off norepinephrine, continues to cough and wheeze and continues to have chest tightness his CBC is relatively normal in the class abnormal BUN is 47 creatinine 2.31, slightly worse compared to yesterday. Chest x-ray showed minimal interstitial edema and pulmonary vascular congestion patient is on diuretics, he is also on bronchodilators, and steroids were added today The patient is seen today 04/29/2023 in follow-up in the intensive care unit. He is currently sitting up in bed. Awake and alert in no acute distress. Maintaining O2 saturations in the 90s on 3 L/m per nasal cannula. He's been afebrile. Norepinephrine has been discontinued. Normal saline at KVO. Chest x-ray reveals left lower lobe infiltrate. Atypical pulmonary edema. Few curly B-lines on the right. Mild congestive heart failure. He remains in atrial fibrillation with a controlled ventricular rate. Blood cultures reveal no growth. Sputum culture revealed no growth. White count 2.5. Hemoglobin 10.0. Platelets 43,000. Sodium 128. Potassium 4.3. Bicarb 21. BUN 54. Creatinine 2.36. Glucose 316. He is continued on Symbicort, albuterol, IV Solu-Medrol. Anticoagulated with Eliquis. Antibiotics in the form of cefepime. Remains on oral diuretics. Metoprolol for rate control. Progress note dated 04/30/2023. The patient is seen today in room 467. Currently, he's in no distress. He is getting oxygen at 4 L by nasal cannula. He's getting a KVO saline IV, which I told the nurse, can be discontinued. The patient is not having any complaints, or distress. White count is 3.7, hemoglobin 9.6, hematocrit 29.3, and platelet count a 67,000. Sodium 133, potassium 4.6, chlorides 99, CO2 22, BUN 66, and creatinine 3.2. Sputum was positive for Susana. Blood cultures are negative. Chest x-ray from yesterday suggests some mild congestive heart failure. Progress note dated 05/01/2023. The patient is seen today in room 467. He seems to be doing relatively well, and is very comfortable on 3 L. He's not receiving any IV fluids. He continues on cefepime. He has no particular complaints today. White count is 4.9, hemo globin 11, hematocrit 32.8, and platelet count of 78,000. Sodium 133, potassium 4.3, chlorides 99, CO2 24, anion gap 10, BUN 84, and creatinine 3.46. Microbiology is negative other than some Susana in his sputum. Brain CT revealed no abnormality of significance. Chest x-ray showed improving features of mild CHF. Objective - Vital Signs Vital signs: Vital Signs Temp 97.4 F L 05/01/23 08:00 Pulse 73 05/01/23 08:00 Resp 18 05/01/23 08:00 BP 113/63 05/01/23 08:00 Pulse Ox 94 L 05/01/23 08:47 FiO2 Intake & Output 04/30/23 05/01/23 05/01/23 18:59 06:59 18:59 Intake Total 600 257 Output Total 1 500 450 Balance 599 -500 -193 Intake: IV 20 Invasive Line 4 20 Oral 237 Tube Feeding 600 Output: Urine 500 450 Stool 1 Other: Voiding Method Indwelling Catheter Indwelling Catheter Indwelling Catheter # Bowel Movements 0 - Exam No acute distress, oriented 3. Currently on 3 L of oxygen. No conversational dyspnea. No use of accessory muscles. HEENT examination is grossly unremarkable. Neck supple. Full range of motion. No adenopathy thyromegaly or neck vein dis tention. Cardiovascular examination reveals irregular rhythm and rate. S1-S2 normal. No S3 or S4. No discernible murmur noted. Heart rate is 73 bpm. Lungs reveal mild scattered rhonchi. No wheezes or crackles. Breath sounds are equal bilaterally. Saturations are 94 %. Abdomen soft bowel sounds are heard. No masses or tenderness. Extremities are intact. No cyanosis clubbing or edema. Ecchymosis noted to his right posterior thigh area. Skin is without rash or lesion. Neurologic examination is brief but nonfocal. - Labs CBC & Chem 7: 05/01/23 09:02 05/01/23 09:02 Labs: Abnormal Lab Results - Last 24 Hours (Table) 04/30/23 04/30/23 05/01/23 Range/Units 16:48 20:41 06:23 RBC (4.30-5.90) m/uL Hgb (13.0-17.5) gm/dL Hct (39.0-53.0) % Plt Count (150-450) k/uL Lymphocytes # (1.0-4.8) k/uL Sodium (137-145) mmol/L BUN (9-20) mg/dL Creatinine (0.66-1.25) mg/dL Glucose (74-99) mg/dL POC Glucose (mg/dL) 472 H 389 H 232 H (70-110) mg/dL Calcium (8.4-10.2) mg/dL 05/01/23 05/01/23 05/01/23 Range/Units 09:02 09:02 10:53 RBC 3.39 L (4.30-5.90) m/uL Hgb 11.0 L (13.0-17.5) gm/dL Hct 32.8 L (39.0-53.0) % Plt Count 78 L D (150-450) k/uL Lymphocytes # 0.2 L (1.0-4.8) k/uL Sodium 133 L (137-145) mmol/L BUN 84 H (9-20) mg/dL Creatinine 3.46 H (0.66-1.25) mg/dL Glucose 162 H (74-99) mg/dL POC Glucose (mg/dL) 148 H (70-110) mg/dL Calcium 8.1 L (8.4-10.2) mg/dL 05/01/23 Range/Units 12:00 RBC (4.30-5.90) m/uL Hgb (13.0-17.5) gm/dL Hct (39.0-53.0) % Plt Count (150-450) k/uL Lymphocytes # (1.0-4.8) k/uL Sodium (137-145) mmol/L BUN (9-20) mg/dL Creatinine (0.66-1.25) mg/dL Glucose (74-99) mg/dL POC Glucose (mg/dL) 140 H (70-110) mg/dL Calcium (8.4-10.2) mg/dL Microbiology - Last 24 Hours (Table) 04/25/23 15:58 Blood Culture - Final Blood 04/25/23 15:50 Blood Culture - Final Blood 04/27/23 19:04 Gram Stain - Final Sputum Sputum Culture - Final Susana albicans Assessment and Plan Assessment: Chronic atrial fibrillation, patient presented with atrial fibrillation with RVR. Anticoagulated with Eliquis. Acute exacerbation of chronic systolic congestive heart failure, ejection fraction 30-35% on 03/29/2023. Acute exacerbation of COPD. COVID-19 infection. Recent history of pneumonia secondary to pseudomonas aeruginosa, on cefepime. Moderate severe aortic stenosis with pulmonary hypertension. Chronic kidney disease stage III. Former smoker. History of coronary artery disease and previous CABG and stenting. Dyslipidemia. Hypothyroidism. Poor overall functional performance based on the above-mentioned multiple comorbidities. Plan: Plan dated 04/30/2023. The patient appears to be relatively stable. The patient's atrial fibrillation is under good control. The patient remains on a factor X a inhibitor. Labs, x- rays, medications are reviewed. The patient remains on cefepime. Additional recommendations and suggestions are forthcoming. The IV Solu-Medrol be discontinued. The patient will be started on prednisone 30 mg a day. Discharge planning underway. Plan dated 05/01/2023. The patient appears to be doing relatively well. He is down to 3 L of oxygen. His vital signs are stable. His labs are reviewed. The patient continues on a factor X a inhibitor. The Solu-Medrol was converted to prednisone 30 mg a day. Discharge planning underway. Labs, x-rays, and medications are all reviewed prognosis is certainly guarded. We will continue to follow the patient and make recommendations. Time with Patient: Less than 30
--- NOTE | 2023-05-01 12:49 | P.PN ---
Subjective Patient is seen for f/u for JEREMY on top of CKD. COVID positive. Good UOP, 1.4 L for 24 hours. No significant shortness of breath. Serum creatinine increased to 3.2 mg/dL yesterday and it is 3.4 today. Maintained on oral lasix. Sitting out of bed on a chair. Mentation seems off today. BP not low. Objective - Vital Signs Vital signs: Vital Signs Temp 97.4 F L 05/01/23 08:00 Pulse 73 05/01/23 08:00 Resp 18 05/01/23 08:00 BP 113/63 05/01/23 08:00 Pulse Ox 94 L 05/01/23 08:47 FiO2 Intake & Output 04/30/23 05/01/23 05/01/23 18:59 06:59 18:59 Intake Total 600 257 Output Total 1 500 450 Balance 599 -500 -193 Intake: IV 20 Invasive Line 4 20 Oral 237 Tube Feeding 600 Output: Urine 500 450 Stool 1 Other: Voiding Method Indwelling Catheter Indwelling Catheter Indwelling Catheter # Bowel Movements 0 - Exam Patient is awake Comfortable A and O x3 Lungs have decreased breath sounds at bases. No Wheezing CVS S1 and S2 Abdomen is soft, non tender. Extremities show trace edema. - Labs CBC & Chem 7: 05/01/23 09:02 05/01/23 09:02 Labs: Abnormal Lab Results - Last 24 Hours (Table) 04/28/23 04/30/23 04/30/23 Range/Units 03:54 16:48 20:41 RBC (4.30-5.90) m/uL Hgb (13.0-17.5) gm/dL Hct (39.0-53.0) % Plt Count (150-450) k/uL Lymphocytes # (1.0-4.8) k/uL Sodium (137-145) mmol/L BUN (9-20) mg/dL Creatinine (0.66-1.25) mg/dL Glucose (74-99) mg/dL POC Glucose (mg/dL) 472 H 389 H (70-110) mg/dL Calcium (8.4-10.2) mg/dL RBC Folate 951 H (280 - 791) ng/mL 05/01/23 05/01/23 05/01/23 Range/Units :23 09:02 09:02 RBC 3.39 L (4.30-5.90) m/uL Hgb 11.0 L (13.0-17.5) gm/dL Hct 32.8 L (39.0-53.0) % Plt Count 78 L D (150-450) k/uL Lymphocytes # 0.2 L (1.0-4.8) k/uL Sodium 133 L (137-145) mmol/L BUN 84 H (9-20) mg/dL Creatinine 3.46 H (0.66-1.25) mg/dL Glucose 162 H (74-99) mg/dL POC Glucose (mg/dL) 232 H (70-110) mg/dL Calcium 8.1 L (8.4-10.2) mg/dL RBC Folate (280 - 791) ng/mL 05/01/23 05/01/23 Range/Units 10:53 12:00 RBC (4.30-5.90) m/uL Hgb (13.0-17.5) gm/dL Hct (39.0-53.0) % Plt Count (150-450) k/uL Lymphocytes # (1.0-4.8) k/uL Sodium (137-145) mmol/L BUN (9-20) mg/dL Creatinine (0.66-1.25) mg/dL Glucose (74-99) mg/dL POC Glucose (mg/dL) 148 H 140 H (70-110) mg/dL Calcium (8.4-10.2) mg/dL RBC Folate (280 - 791) ng/mL Microbiology - Last 24 Hours (Table) 04/25/23 15:58 Blood Culture - Final Blood 04/25/23 15:50 Blood Culture - Final Blood 04/27/23 19:04 Gram Stain - Final Sputum Sputum Culture - Final Susana albicans Assessment and Plan Assessment: 1. Acute kidney injury, nonoliguric secondary to hemodynamic ATN secondary to low blood pressure and hemodynamic instability with A. fib with RVR. Possible cardiorenal component as well. Patient is currently being diuresed. Blood pressure remains on the lower side. Serum creatinine increased to 3.2 yesterday when BP was quite low. Blood pressure was low with systolic in the 80s. Maintained on oral Lasix 2. Chronic kidney disease NKF stage IIIB with baseline creatinine 1.3-1.5 mg/dL secondary to diabetic kidney disease 3. Pseudomonas pneumonia on recent admission on 04/06/2023 maintained on cefepime at home 4. Acute COPD exacerbation status post treatment and discharge about 10 days ago 5. Cardiomyopathy with ejection fraction 20-30%. Ischemic cardiomyopathy 6. Chronic systolic CHF with acute exacerbation 7. A. fib with RVR 8. COVID- positive on 04/19/2023 9. Volume overload 10. Hyponatremia, hypervolemic. Continue with oral Lasix. Plan: Decrease Lasix to once a day. Repeat CXR today. continue with midodrine Expect creatinine to improve as blood pressure has stabilized. Repeat labs in a.m.
[2023-05-01] MEDS: GABAPENTIN 400 MG CAP PO SCH ×3 (13:44→21:07)
--- NOTE | 2023-05-01 14:18 | P.CNNES ---
History of Present Illness Consult date: 05/01/23 Requesting physician: Karoline Mg Reason for Consult: confusion History of Present Illness: This is a 77-year-old gentleman who was transferred from [facility] because of weakness shortness of breath as well as A. fib with RVR. Neurology is consulted for confusion. According to the patient's nurse the patient has been confused. Upon seeing the patient he feels that his entire body generalized weak. Seems that per the ED the patient has weakness hypotensive shock pneumonia acute kidney injury on chronic kidney insufficiency with A. fib with RVR with dehydration. Seems that he has acute exacerbation of congestive heart failure as well as COPD. He has a recent history of pneumonia secondary due to Pseudomonas aeruginosa is on cefepime. Some of the workup during this hospital visit consisted of: Vital B12 most recent one is 380. But the day prior was 298. Folate is 17.90. Hemoglobin A1c is 9.4. Ammonia level is less than 9 TSH is 0.586. Seems she has acute on chronic kidney insufficiency and that her kidney function is trending up. CT of the head on 05/01/23 is reported as no acute intracranial process. Nonspecific white matter changes, likely seizure due to chronic small vessel ischemic disease. Review of Systems Review of system: The 12 point system was reviewed and apparent positive and negative per HPI. Past Medical History Past Medical History: Atrial Fibrillation, Coronary Artery Disease (CAD), Heart Failure, COPD, CVA/TIA, Diabetes Mellitus, Hypertension, Myocardial Infarction ([place]) Additional Past Medical History / Comment(s): left knee cap broken, pancreatitis, /gallstones, Patient reports having stroke like symptoms after injection in knee, Last Myocardial Infarction Date:: 2017 History of Any Multi-Drug Resistant Organisms: MRSA Date of last positivie culture/infection: 10/01/22 MDRO Source:: Sputum Past Surgical History: Cholecystectomy, Coronary Bypass/CABG, Heart Catheterization With Stent, Hernia Repair, Orthopedic Surgery Additional Past Surgical History / Comment(s): lt knee replacement(total of 4 sx), colonoscopy, Left knee cap removal with antibiotic spacers placed, Past Anesthesia/Blood Transfusion Reactions: No Reported Reaction Date of Last Stent Placement:: 10/2015 Past Psychological History: No Psychological Hx Reported Additional Psychological History / Comment(s): Pt resides with his spouse. He uses a walker to ambulate. Smoking Status: Former smoker Past Alcohol Use History: Occasional Additional Past Alcohol Use History / Comment(s): Pt started smoking as teen and quit 1983 smoked 2 ppd. Pt usually has one drink a night. Past Drug Use History: None Reported - Past Family History Father Family Medical History: Diabetes Mellitus Mother Family Medical History: CVA/TIA, Hypertension Medications and Allergies Home Medications Medication Instructions Recorded Confirmed Type allopurinoL [Zyloprim] 300 mg PO DAILY@0800 08/07/17 04/25/23 History Gabapentin 1,200 mg PO TID@1400,1800,2200 10/02/18 04/25/23 History Levothyroxine Sodium [Synthroid] 112 mcg PO DAILY@0800 10/02/18 04/25/23 History Levothyroxine Sodium [Synthroid] 125 mcg PO DAILY@0800 10/02/18 04/25/23 History Nitroglycerin Sl Tabs [Nitrostat] 0.4 mg SL Q5M PRN 10/02/18 04/25/23 History Atorvastatin [Lipitor] 40 mg PO HS@199910/19/21 04/25/23 History Apixaban [Eliquis] 5 mg PO BID@0800,1700 09/28/22 04/25/23 History Budesonide/Formoterol Fumarate 2 puff INHALATION RT-BID@0800,1700 09/28/22 04/25/23 History [Symbicort 80-4.5 Mcg Inhaler] HYDROcodone/APAP 7.5-325MG [[place] 1 tab PO BID PRN 09/28/22 04/25/23 History 7.5-325] Magnesium Oxide [Mag-Ox] 400 mg PO BID@0800,1700 09/28/22 04/25/23 History Meclizine [Antivert] 12.5 mg PO TID@0700,1200,1700 09/28/22 04/25/23 History Albuterol Sulfate [Proventil Hfa] 1 puff INHALATION RT-Q8H PRN 11/22/22 04/25/23 History Omeprazole 20 mg PO DAILY@0800 11/22/22 04/25/23 History Glimepiride [Amaryl] 2 mg PO BID@0800,1700 03/29/23 04/25/23 History Aspirin 81 mg PO DAILY@0730 04/25/23 04/25/23 History Cefepime [Maxipime] 2 gm IVPB BID@0900,2100 04/25/23 04/25/23 History Dapagliflozin Propanediol [Farxiga] 10 mg PO DAILY@0800 04/25/23 04/25/23 History Furosemide [Lasix] 40 mg PO BID@0700,1300 04/25/23 04/25/23 History Insulin Glargine-Yfgn [Semglee 40 units SQ DAILY@0800 04/25/23 04/25/23 History (Yfgn) Pen] Insulin Lispro See Protocol SQ QID@07,12,,04/25/23 04/25/23 History Ipratropium-Albuterol Nebulize 3 ml INHALATION RT-Q2H PRN 04/25/23 04/25/23 His tory [Duoneb 0.5 mg-3 mg/3 ml Soln] Ipratropium-Albuterol Nebulize 3 ml INHALATION RT-QID@07,12,17,04/25/23 04/25/23 History [Duoneb 0.5 mg-3 mg/3 ml Soln] Metoprolol Succinate (ER) [Toprol 50 mg PO DAILY@0804/25/23 04/25/23 History XL] Molnupiravir [Molnupiravir (Eua)] 800 mg PO BID@0700,1900 04/25/23 04/25/23 History Nystatin 100,000 Unit/ml Susp 500,000 unit PO QID@07,12,17,04/25/23 04/25/23 History [Mycostatin Oral Susp] Potassium Chloride ER [K-Dur 20] 20 meq PO BID@0800,1700 04/25/23 04/25/23 History Allergies Allergy/AdvReac Type Severity Reaction Status Date / Time Sulfa (Sulfonamide Allergy Mild Rash/Hives Verified 04/25/23 16:17 Antibiotics) cephalexin [From Keflex] Allergy Unknown Verified 04/25/23 16:17 clopidogrel [From Plavix] Allergy Rash/Hives Verified 04/25/23 16:17 codeine Allergy Rash/Nausea Verified 04/25/23 16:17 & Vomiting Iodine and Iodide Containing Allergy Rash/Hives Verified 04/25/23 16:17 Produc levofloxacin [From Levaquin] Allergy urticaria/r Verified 04/25/23 16:17 belle shellfish derived [Shellfish] Allergy urticaria/r Verified 04/25/23 16:17 belle lisinopril AdvReac Angiodema Verified 04/25/23 16:17 of tongue oxycodone AdvReac Hallucinati Verified 04/25/23 16:17 ons solifenacin AdvReac Nausea & Verified 04/25/23 16:17 Vomiting Physical Examination - Vital Signs Vital Signs: Vital Signs Temp Pulse Resp BP Pulse Ox 05/01/23 08:47 94 L 05/01/23 08:00 97.4 F L 73 18 113/63 93 L 05/01/23 01:11 97.2 F L 05/01/23 01:00 97.2 F L 81 18 130/73 98 04/30/23 20:07 97.6 F 88 18 152/77 98 04/30/23 16:06 97.1 F L 79 18 119/59 92 L Intake and Output 04/30/23 05/01/23 05/01/23 22:59 06:59 14:59 Intake Total 600 257 Output Total 1 500 450 Balance 599 -500 -193 Intake: IV 20 Invasive Line 4 20 Oral 237 Tube Feeding 600 Output: Urine 500 450 Stool 1 Other: Voiding Method Indwelling Catheter Indwelling Catheter # Bowel Movements 0 GENERAL: The patient is lying in bed and is not in acute distress. NEUROLOGICAL: Higher mental function: The patient is awake, alert, oriented to self, he stated he was in the hospital. He correctly stated the year but for month continued to stated the year. He had preservation of speech at times concerning for expressive aphasia. Is following simple commands. Cranial nerves: The pupils are round, equal and reactive to light. Visual fuentes are full to confrontation throughout. Extraocular movement is intact no nystagmus is noted. Facial sensation is normal to touch throughout. The facial strength is normal throughout. Hearing is very hard of hearing bilaterally to hand rub. Tongue is midline and moved [id number] without any difficulty. No dysarthria is noted. Shoulder shrug is normal bilaterally. Motor: The strength is 5 over 5 throughout uppers. While lowers briefly raised up above gravity equally. Normal tone and bulk. Cerebellum: Normal finger to nose bilaterally. Sensation: Sensation is normal to touch throughout. Reflexes (right/left): 1+ throughout. Plantars are mute bilaterally. Results - Laboratory Findings CBC and BMP: 05/01/23 09:02 05/01/23 09:02 Abnormal Lab Findings: Abnormal Labs 04/25/23 04/25/23 04/25/23 15:58 16:04 16:04 WBC RBC 3.82 L Hgb 12.1 L D Hct 37.2 L MCV Plt Count 79 L Lymphocytes # 0.3 L Eosinophils # Immature Plt Fraction Fibrinogen Sodium 133 L Potassium 5.2 H Carbon Dioxide Anion Gap BUN 54 H Creatinine 2.21 H Est GFR (CKD-EPI) BUN/Creatinine Ratio Glucose 248 H POC Glucose (mg/dL) Hemoglobin A1c Plasma Lactic Acid Gideon 2.6 H* Calcium 8.0 L Total Bilirubin 1.8 H Troponin I C-Reactive Protein Total Protein 5.0 L Albumin 2.7 L RBC Folate Procalcitonin Urine Protein Urine Glucose (UA) Urine Blood Ur Leukocyte Esterase Urine Bacteria Urine Mucus 04/25/23 04/25/23 04/26/23 16:04 20:55 00:39 WBC RBC Hgb Hct MCV Plt Count Lymphocytes # Eosinophils # Immature Plt Fraction Fibrinogen Sodium Potassium Carbon Dioxide Anion Gap BUN Creatinine Est GFR (CKD-EPI) BUN/Creatinine Ratio Glucose POC Glucose (mg/dL) 255 H Hemoglobin A1c Plasma Lactic Acid Gideon Calcium Total Bilirubin Troponin I 0.322 H* 0.331 H* C-Reactive Protein Total Protein Albumin RBC Folate Procalcitonin Urine Protein Urine Glucose (UA) Urine Blood Ur Leukocyte Esterase Urine Bacteria Urine Mucus 04/26/23 04/26/23 04/26/23 00:54 03:57 03:57 WBC RBC 3.70 L Hgb 12.0 L Hct 37.1 L MCV 100.4 H Plt Count 78 L Lymphocytes # 0.3 L Eosinophils # Immature Plt Fraction Fibrinogen Sodium 134 L Potassium Carbon Dioxide Anion Gap BUN 57 H Creatinine 2.15 H Est GFR (CKD-EPI) BUN/Creatinine Ratio Glucose 178 H POC Glucose (mg/dL) Hemoglobin A1c Plasma Lactic Acid Gideon Calcium 7.9 L Total Bilirubin Troponin I 0.234 H* C-Reactive Protein Total Protein Albumin RBC Folate Procalcitonin Urine Protein Urine Glucose (UA) Urine Blood Ur Leukocyte Esterase Urine Bacteria Urine Mucus 04/26/23 04/26/23 04/26/23 09:25 16:28 21:59 WBC RBC Hgb Hct MCV Plt Count Lymphocytes # Eosinophils # Immature Plt Fraction Fibrinogen Sodium Potassium Carbon Dioxide Anion Gap BUN Creatinine Est GFR (CKD-EPI) BUN/Creatinine Ratio Glucose POC Glucose (mg/dL) 160 H 206 H Hemoglobin A1c Plasma Lactic Acid Gideon Calcium Total Bilirubin Troponin I C-Reactive Protein Total Protein Albumin RBC Folate Procalcitonin Urine Protein 1+ H Urine Glucose (UA) 3+ H Urine Blood Moderate H Ur Leukocyte Esterase Trace H Urine Bacteria Rare H Urine Mucus Rare H 04/27/23 04/27/23 04/27/23 04:02 04:02 11:44 WBC RBC 3.33 L Hgb 10.8 L Hct 32.8 L MCV Plt Count 62 L Lymphocytes # Eosinophils # Immature Plt Fraction Fibrinogen Sodium 132 L Potassium Carbon Dioxide Anion Gap BUN 51 H Creatinine 2.08 H Est GFR (CKD-EPI) BUN/Creatinine Ratio Glucose POC Glucose (mg/dL) 136 H Hemoglobin A1c Plasma Lactic Acid Gideon Calcium 7.4 L Total Bilirubin Troponin I C-Reactive Protein Total Protein Albumin RBC Folate Procalcitonin Urine Protein Urine Glucose (UA) Urine Blood Ur Leukocyte Esterase Urine Bacteria Urine Mucus 04/27/23 04/27/23 04/28/23 16:35 21:44 03:54 WBC RBC 3.54 L Hgb 11.5 L Hct 34.5 L MCV Plt Count 53 L Lymphocytes # 0.2 L Eosinophils # Immature Plt Fraction Fibrinogen Sodium Potassium Carbon Dioxide Anion Gap BUN Creatinine Est GFR (CKD-EPI) BUN/Creatinine Ratio Glucose POC Glucose (mg/dL) 151 H 116 H Hemoglobin A1c Plasma Lactic Acid Gideon Calcium Total Bilirubin Troponin I C-Reactive Protein Total Protein Albumin RBC Folate Procalcitonin Urine Protein Urine Glucose (UA) Urine Blood Ur Leukocyte Esterase Urine Bacteria Urine Mucus 04/28/23 04/28/23 04/28/23 03:54 03:54 03:54 WBC RBC Hgb Hct MCV Plt Count Lymphocytes # Eosinophils # Immature Plt Fraction Fibrinogen 644 H Sodium 133 L Potassium Carbon Dioxide Anion Gap BUN 47 H Creatinine 2.31 H Est GFR (CKD-EPI) BUN/Creatinine Ratio Glucose 44 L* POC Glucose (mg/dL) Hemoglobin A1c Plasma Lactic Acid Gideon Calcium 7.6 L Total Bilirubin Troponin I C-Reactive Protein Total Protein Albumin RBC Folate 951 H Procalcitonin Urine Protein Urine Glucose (UA) Urine Blood Ur Leukocyte Esterase Urine Bacteria Urine Mucus 04/28/23 04/28/23 04/28/23 05:04 05:25 11:42 WBC RBC Hgb Hct MCV Plt Count Lymphocytes # Eosinophils # Immature Plt Fraction Fibrinogen Sodium Potassium Carbon Dioxide Anion Gap BUN Creatinine Est GFR (CKD-EPI) BUN/Creatinine Ratio Glucose POC Glucose (mg/dL) 52 L 58 L 220 H Hemoglobin A1c Plasma Lactic Acid Gideon Calcium Total Bilirubin Troponin I C-Reactive Protein Total Protein Albumin RBC Folate Procalcitonin Urine Protein Urine Glucose (UA) Urine Blood Ur Leukocyte Esterase Urine Bacteria Urine Mucus 04/28/23 04/28/23 04/28/23 16:31 21:05 21:09 WBC RBC Hgb Hct MCV Plt Count Lymphocytes # Eosinophils # Immature Plt Fraction Fibrinogen Sodium Potassium Carbon Dioxide Anion Gap BUN Creatinine Est GFR (CKD-EPI) BUN/Creatinine Ratio Glucose POC Glucose (mg/dL) 247 H 421 H 423 H Hemoglobin A1c Plasma Lactic Acid Gideon Calcium Total Bilirubin Troponin I C-Reactive Protein Total Protein Albumin RBC Folate Procalcitonin Urine Protein Urine Glucose (UA) Urine Blood Ur Leukocyte Esterase Urine Bacteria Urine Mucus 04/29/23 04/29/23 04/29/23 01:59 02:57 05:11 WBC RBC Hgb Hct MCV Plt Count Lymphocytes # Eosinophils # Immature Plt Fraction Fibrinogen Sodium Potassium Carbon Dioxide Anion Gap BUN Creatinine Est GFR (CKD-EPI) BUN/Creatinine Ratio Glucose POC Glucose (mg/dL) 451 H 452 H 376 H Hemoglobin A1c Plasma Lactic Acid Gideon Calcium Total Bilirubin Troponin I C-Reactive Protein Total Protein Albumin RBC Folate Procalcitonin Urine Protein Urine Glucose (UA) Urine Blood Ur Leukocyte Esterase Urine Bacteria Urine Mucus 04/29/23 04/29/23 04/29/23 06:02 06:02 06:02 WBC RBC Hgb Hct MCV Plt Count Lymphocytes # Eosinophils # Immature Plt Fraction Fibrinogen Sodium 128 L Potassium Carbon Dioxide 21 L Anion Gap BUN 54 H Creatinine 2.36 H Est GFR (CKD-EPI) BUN/Creatinine Ratio Glucose 316 H POC Glucose (mg/dL) Hemoglobin A1c 9.4 H Plasma Lactic Acid Gideon Calcium 7.8 L Total Bilirubin Troponin I C-Reactive Protein 15.1 H Total Protein Albumin RBC Folate Procalcitonin 0.39 H Urine Protein Urine Glucose (UA) Urine Blood Ur Leukocyte Esterase Urine Bacteria Urine Mucus 04/29/23 04/29/23 04/29/23 06:02 06:05 11:29 WBC 2.5 L RBC 3.17 L Hgb 10.0 L D Hct 31.2 L MCV Plt Count 43 L Lymphocytes # 0.2 L Eosinophils # Immature Plt Fraction Fibrinogen Sodium Potassium Carbon Dioxide Anion Gap BUN Creatinine Est GFR (CKD-EPI) BUN/Creatinine Ratio Glucose POC Glucose (mg/dL) 322 H 171 H Hemoglobin A1c Plasma Lactic Acid Gideon Calcium Total Bilirubin Troponin I C-Reactive Protein Total Protein Albumin RBC Folate Procalcitonin Urine Protein Urine Glucose (UA) Urine Blood Ur Leukocyte Esterase Urine Bacteria Urine Mucus 04/29/23 04/29/23 04/29/23 16:21 17:33 20:26 WBC RBC Hgb Hct MCV Plt Count Lymphocytes # Eosinophils # Immature Plt Fraction Fibrinogen Sodium 130 L Potassium Carbon Dioxide Anion Gap BUN Creatinine Est GFR (CKD-EPI) BUN/Creatinine Ratio Glucose POC Glucose (mg/dL) 283 H 348 H Hemoglobin A1c Plasma Lactic Acid Gideon Calcium Total Bilirubin Troponin I C-Reactive Protein Total Protein Albumin RBC Folate Procalcitonin Urine Protein Urine Glucose (UA) Urine Blood Ur Leukocyte Esterase Urine Bacteria Urine Mucus 04/30/23 04/30/23 04/30/23 06:20 06:20 06:23 WBC 3.70 L RBC 3.05 L Hgb 9.6 L Hct 29.3 L MCV Plt Count 67 L Lymphocytes # 0.19 L Eosinophils # 0 L Immature Plt Fraction 7.4 H Fibrinogen Sodium 133 L Potassium Carbon Dioxide 21.5 L Anion Gap 12.50 H BUN 65.9 H Creatinine 3.2 H Est GFR (CKD-EPI) 19 L BUN/Creatinine Ratio 20.59 H Glucose 301 H POC Glucose (mg/dL) 326 H Hemoglobin A1c Plasma Lactic Acid Gideon Calcium 8.4 L Total Bilirubin Troponin I C-Reactive Protein Total Protein Albumin RBC Folate Procalcitonin Urine Protein Urine Glucose (UA) Urine Blood Ur Leukocyte Esterase Urine Bacteria Urine Mucus 04/30/23 04/30/23 04/30/23 11:35 16:48 20:41 WBC RBC Hgb Hct MCV Plt Count Lymphocytes # Eosinophils # Immature Plt Fraction Fibrinogen Sodium Potassium Carbon Dioxide Anion Gap BUN Creatinine Est GFR (CKD-EPI) BUN/Creatinine Ratio Glucose POC Glucose (mg/dL) 451 H 472 H 389 H Hemoglobin A1c Plasma Lactic Acid Gideon Calcium Total Bilirubin Troponin I C-Reactive Protein Total Protein Albumin RBC Folate Procalcitonin Urine Protein Urine Glucose (UA) Urine Blood Ur Leukocyte Esterase Urine Bacteria Urine Mucus 05/01/23 05/01/23 05/01/23 06:23 09:02 09:02 WBC RBC 3.39 L Hgb 11.0 L Hct 32.8 L MCV Plt Count 78 L D Lymphocytes # 0.2 L Eosinophils # Immature Plt Fraction Fibrinogen Sodium 133 L Potassium Carbon Dioxide Anion Gap BUN 84 H Creatinine 3.46 H Est GFR (CKD-EPI) BUN/Creatinine Ratio Glucose 162 H POC Glucose (mg/dL) 232 H Hemoglobin A1c Plasma Lactic Acid Gideon Calcium 8.1 L Total Bilirubin Troponin I C-Reactive Protein Total Protein Albumin RBC Folate Procalcitonin Urine Protein Urine Glucose (UA) Urine Blood Ur Leukocyte Esterase Urine Bacteria Urine Mucus 05/01/23 05/01/23 10:53 12:00 WBC RBC Hgb Hct MCV Plt Count Lymphocytes # Eosinophils # Immature Plt Fraction Fibrinogen Sodium Potassium Carbon Dioxide Anion Gap BUN Creatinine Est GFR (CKD-EPI) BUN/Creatinine Ratio Glucose POC Glucose (mg/dL) 148 H 140 H Hemoglobin A1c Plasma Lactic Acid Gideon Calcium Total Bilirubin Troponin I C-Reactive Protein Total Protein Albumin RBC Folate Procalcitonin Urine Protein Urine Glucose (UA) Urine Blood Ur Leukocyte Esterase Urine Bacteria Urine Mucus Assessment and Plan Assessment: Altered mental status: Metabolic Encephalopathy as well as due to recent Covid 19 infection. Is on High dose of Gabapentin and kidney trending up. Rule out stroke. Low normal finding B12 level in the high 200s low 300 Acute on chronic kidney insufficiency trending up Diabetes mellitus and his recent hemoglobin A1c is 9.4. Chronic atrial fibrillation patient presented with Mary miramontes with RVR currently on [place] Acute exacerbation of chronic congestive heart failure with ejection fraction of 30-35% Acute exacerbation of COPD COVID-19 infection and was positive close to the end of March 2023 Recent history of pneumonia secondary due to pseudomonas aeruginosa History of coronary artery disease status post CABG and stent Dyslipidemia Hyper thousand Plan: I ordered a routine EEG any underlying seizure or discharges Ordered MRI of the brain without to rule out any acute or subacute stroke For low-normal of vitamin B-12 I gave the patient the one time vitamin B12 1000 g IM then after that the by mouth Patient is on very high dose of gabapentin of 1200 mg 1 tablet 3 times a day and I recommend to lowering to 300mg 1 tab tid especially that he has acute on chronic kidney insufficeincy. Not sure why he is on super high Gabapentin especially in elderly patient. We'll defer the rest of the management to the primary and other specialists Plan was discussed with the patient nurse. Thank you for the consultation. Time with Patient: Greater than 30
[2023-05-01] MEDS: ACETAMINOPHEN TAB 325 MG TAB PO PRN (16:36)
[2023-05-01] MEDS: ALPRAZolam 0.25 MG TAB PO PRN (16:36)
--- NOTE | 2023-05-01 16:46 | P.PN ---
Subjective Progress Note Date: 05/01/23 Principal diagnosis: Pneumonia Patient is a 77-year male with multiple comorbidities including COPD diastolic heart failure was recently diagnosed with Pseudomonas pneumonia, patient was subsequently diagnosed with a Covid 19 [facility]23[facility] has been brought into the hospital for shortness of breath A. fib with RVR and did have hypotension on today's evaluation that is 05/01/2023, the patient remains to be afebrile, patient is breathing comfortably on 4 L nasal cannula oxygen, patient denies any chest pain did have a cough and bringing up some sputum , patient noticed to have some mental status changes and neurology has been consulted Objective - Vital Signs Vital signs: Vital Signs Temp 97.4 F L 05/01/23 08:00 Pulse 73 05/01/23 08:00 Resp 18 05/01/23 08:00 BP 113/63 05/01/23 08:00 Pulse Ox 94 L 05/01/23 08:47 FiO2 Intake & Output 04/30/23 05/01/23 05/01/23 18:59 06:59 18:59 Intake Total 600 257 Output Total 1 500 450 Balance 599 -500 -193 Intake: IV 20 Invasive Line 4 20 Oral 237 Tube Feeding 600 Output: Urine 500 450 Stool 1 Other: Voiding Method Indwelling Catheter Indwelling Catheter Indwelling Catheter # Bowel Movements 0 - Exam GENERAL DESCRIPTION: An elderly male lying in bed in no distress RESPIRATORY SYSTEM: Unlabored breathing , decreased intensity of breath sounds, no wheeze HEART: S1 S2 regular rate and rhythm , ABDOMEN: Soft , no tenderness EXTREMITIES: No edema feet - Labs CBC & Chem 7: 05/01/23 09:02 05/01/23 09:02 Labs: Abnormal Lab Results - Last 24 Hours (Table) 04/28/23 04/30/23 04/30/23 Range/Units 03:54 16:48 20:41 RBC (4.30-5.90) m/uL Hgb (13.0-17.5) gm/dL Hct (39.0-53.0) % Plt Count (150-450) k/uL Lymphocytes # (1.0-4.8) k/uL Sodium (137-145) mmol/L BUN (9-20) mg/dL Creatinine (0.66-1.25) mg/dL Glucose (74-99) mg/dL POC Glucose (mg/dL) 472 H 389 H (70-110) mg/dL Calcium (8.4-10.2) mg/dL RBC Folate 951 H (280 - 791) ng/mL 05/01/23 05/01/23 05/01/23 Range/Units 06:23 09:02 09:02 RBC 3.39 L (4.30-5.90) m/uL Hgb 11.0 L (13.0-17.5) gm/dL Hct 32.8 L (39.0-53.0) % Plt Count 78 L D (150-450) k/uL Lymphocytes # 0.2 L (1.0-4.8) k/uL Sodium 133 L (137-145) mmol/L BUN 84 H (9-20) mg/dL Creatinine 3.46 H (0.66-1.25) mg/dL Glucose 162 H (74-99) mg/dL POC Glucose (mg/dL) 232 H (70-110) mg/dL Calcium 8.1 L (8.4-10.2) mg/dL RBC Folate (280 - 791) ng/mL 05/01/23 05/01/23 Range/Units 10:53 12:00 RBC (4.30-5.90) m/uL Hgb (13.0-17.5) gm/dL Hct (39.0-53.0) % Plt Count (150-450) k/uL Lymphocytes # (1.0-4.8) k/uL Sodium (137-145) mmol/L BUN (9-20) mg/dL Creatinine (0.66-1.25) mg/dL Glucose (74-99) mg/dL POC Glucose (mg/dL) 148 H 140 H (70-110) mg/dL Calcium (8.4-10.2) mg/dL RBC Folate (280 - 791) ng/mL Microbiology - Last 24 Hours (Table) 04/25/23 15:58 Blood Culture - Final Blood 04/25/23 15:50 Blood Culture - Final Blood 04/27/23 19:04 Gram Stain - Final Sputum Sputum Culture - Final Susana albicans Assessment and Plan (1) COVID-19 Current Visit: Yes Status: Acute Code(s): U07.1 - COVID-19 SNOMED Code(s): 960970384 (2) Pneumonia Current Visit: Yes Status: Acute Code(s): J18.9 - PNEUMONIA, UNSPECIFIED ORGANISM SNOMED Code(s): 759892077 Plan: 1patient was in the hospital with increasing shortness of breath which is likely multifactorial possibly related to underlying worsening of diastolic heart failure from A-fib with RVR clinically doubt any worsening pneumonia the patient did have positive COVID 19 and may be of possibly contributing however chest x-ray was negative for any pneumonia patient not running any fever did have a normal white count with mild lymphopenia. Continue the current supportive treatment 2-patient to continue with cefepime, repeat sputum showing Susana more likely colonizer patient will not need IV antibiotics on discharge Time with Patient: Less than 30
[2023-05-01 17:34] LABS: Glucose,Whole Blood 181 mg/dL (70-110)
[2023-05-01 21:02] LABS: Glucose,Whole Blood 176 mg/dL (70-110)
[2023-05-01] MEDS: ATORVASTATIN 40 MG TAB PO SCH (21:07)
[2023-05-01] MEDS: NYSTATIN 100,000 UNIT/ML SUSP 500,000 UNIT/5 ML CUP PO SCH ×2 (21:08→22:02)
[2023-05-02] MEDS: ALBUTEROL HFA INHALER INHALATION PRN ×2 (01:01→08:02)
[2023-05-02] MEDS: ALPRAZolam 0.25 MG TAB PO PRN ×3 (01:13→21:38)
[2023-05-02] MEDS ORDERED: FUROSEMIDE 10 MG/ML 2 ML VIAL IV ONE (01:55)
[2023-05-02 04:44] LABS: Methylmalonic Acid 1.59 umol/L (<0.40)
[2023-05-02 05:47] LABS: Glucose,Whole Blood 160 mg/dL (70-110)
[2023-05-02] MEDS: PANTOPRAZOLE 40 MG TABLET PO SCH (05:57)
[2023-05-02] MEDS: INSULIN ASPART (NovoLOG) 100 UNIT/ML VIAL SQ SCH ×7 (05:57→21:38)
[2023-05-02] MEDS: CEFEPIME 1 GM in SODIUM CHLORIDE 0.9% 50 ML IVPB SCH ×2 (05:58→18:19)
[2023-05-02] MEDS: MIDODRINE 5 MG TAB PO SCH ×3 (06:07→18:27)
--- NOTE | 2023-05-02 07:04 | XR ---
EXAMINATION TYPE: XR chest 1V portable DATE OF EXAM: 05/02/2023 6:47 AM COMPARISON: Chest radiographs from 05/01/2023 TECHNIQUE: XR chest 1V portable Portable AP radiograph of the chest. CLINICAL INDICATION:Male, 77 years old with history of Shortness of breath; FINDINGS: Lungs/Pleura: No pneumothorax. Hyperinflation. Increase left mid and lower lung patchy airspace opaci ties. Chronic interstitial opacities. Heart/mediastinum: Cardiomediastinal silhouette is enlarged and stable. Atherosclerotic calcificatio ns are seen in the aorta. Musculoskeletal: No acute osseous pathology. Midline sternotomy wires are noted and stable. Left shou lder arthropathy. Other findings: None Lines/Tubes: Left-sided PICC in stable position.. IMPRESSION: Cardiomegaly with increased left mid and lower lung patchy airspace opacities concerning for pneumoni a.
[2023-05-02] MEDS: SYMBICORT 80-4.5 MCG INHALER INHALATION SCH ×2 (08:02→21:32)
[2023-05-02] MEDS: predniSONE 10 MG TAB PO SCH (08:32)
[2023-05-02] MEDS: APIXABAN 2.5 MG TABLET PO SCH ×2 (08:33→18:24)
[2023-05-02] MEDS: ZINC SULFATE 220 MG CAP PO SCH (08:33)
[2023-05-02] MEDS: LEVOTHYROXINE 125 MCG TAB PO SCH (08:33)
[2023-05-02] MEDS: ASCORBIC ACID 500 MG TAB PO SCH (08:33)
[2023-05-02] MEDS: LEVOTHYROXINE 112 MCG TAB PO SCH (08:33)
[2023-05-02] MEDS: METOPROLOL SUCCINATE (ER) 50 MG TAB.ER.24H PO SCH (08:33)
[2023-05-02] MEDS: CHOLECALCIFEROL 25 MCG (1000 IU) TABLET PO SCH (08:33)
[2023-05-02] MEDS: CYANOCOBALAMIN 500 MCG TAB PO SCH (08:33)
[2023-05-02] MEDS ORDERED: IPRATROPIUM-ALBUTEROL 3 ML NEB INHALATION PRN (08:41)
[2023-05-02] MEDS: INSULIN DETEMIR (LEVEMIR) 100 UNIT/ML SYR SQ SCH ×2 (08:47→21:38)
[2023-05-02] MEDS: NYSTATIN 100,000 UNIT/ML SUSP 500,000 UNIT/5 ML CUP PO SCH ×4 (08:47→21:56)
[2023-05-02 11:32] LABS: Glucose,Whole Blood 93 mg/dL (70-110)
[2023-05-02] MEDS ORDERED: ALBUTEROL HFA INHALER INHALATION PRN (11:54)
[2023-05-02] MEDS: ALBUTEROL HFA INHALER INHALATION SCH ×3 (11:55→21:32)
[2023-05-02] MEDS ORDERED: IPRATROPIUM-ALBUTEROL 3 ML NEB INHALATION SCH (12:00)
[2023-05-02] MEDS: methylPREDNISolone SOD SUCCI 40 MG/ML 1 ML VIAL IV SCH ×3 (12:08→23:48)
--- NOTE | 2023-05-02 12:26 | P.PN ---
Subjective Patient is seen for f/u for JEREMY on top of CKD. COVID positive. Good UOP, 1.6 L for 24 hours. No significant shortness of breath. Serum creatinine increased to 3.2 mg/dL and was 3.4 yesterday Maintained on oral lasix. Patient is sleeping, has been arousable. Objective - Vital Signs Vital signs: Vital Signs Temp 97.5 F L 05/02/23 07:24 Pulse 78 05/02/23 07:24 Resp 20 05/02/23 10:22 BP 111/75 05/02/23 07:24 Pulse Ox 95 05/02/23 08:03 FiO2 Intake & Output 05/01/23 05/02/23 05/02/23 18:59 06:59 18:59 Intake Total 574 Output Total 800 800 1 Balance -226 -800 -1 Intake: IV 80 Cefepime 1 gm In Sodium 50 Chloride 0.9% 50 ml @ 12. 5 mls/hr IVPB Q12H [facility] Rx #:[id number] Invasive Line 4 30 Oral 494 Output: Urine 800 800 Stool 1 Other: Voiding Method Indwelling Catheter External Catheter External Catheter # Voids 1 # Bowel Movements 0 - Exam Patient is sleeping Comfortable A and O x3 Lungs have decreased breath sounds at bases. No Wheezing CVS S1 and S2 Abdomen is soft, non tender. Extremities show trace edema. - Labs CBC & Chem 7: 05/01/23 09:02 05/01/23 09:02 Labs: Abnormal Lab Results - Last 24 Hours (Table) 04/28/23 05/01/23 05/01/23 Range/Units 03:54 17:32 21:00 POC Glucose (mg/dL) 181 H 176 H (70-110) mg/dL C-Reactive Protein (0.00-0.80) mg/dL Methylmalonic Acid 1.59 H (<0.40) umol/L RBC Folate 951 H (280 - 791) ng/mL Procalcitonin (0.02-0.09) ng/mL 05/02/23 05/02/23 05/02/23 Range/Units 05:45 08:06 08:06 POC Glucose (mg/dL) 160 H (70-110) mg/dL C-Reactive Protein 2.50 H (0.00-0.80) mg/dL Methylmalonic Acid (<0.40) umol/L RBC Folate (280 - 791) ng/mL Procalcitonin 0.25 H (0.02-0.09) ng/mL Assessment and Plan Assessment: 1. Acute kidney injury, nonoliguric secondary to hemodynamic ATN secondary to low blood pressure and hemodynamic instability with A. fib with RVR. Possible cardiorenal component as well. Patient is currently being diuresed. Blood pressure remains on the lower side. Maintained on midodrine. Serum creatinine increased to 3.2 when BP was quite low. Blood pressure was low with systolic in the 80s. Maintained on oral Lasix 2. Chronic kidney disease NKF stage IIIB with baseline creatinine 1.3-1.5 mg/dL secondary to diabetic kidney disease 3. Pseudomonas pneumonia on recent admission on 04/06/2023 maintained on cefepime at home 4. Acute COPD exacerbation status post treatment and discharge about 10 days ago 5. Cardiomyopathy with ejection fraction 20-30%. Ischemic cardiomyopathy 6. Chronic systolic CHF with acute exacerbation 7. A. fib with RVR 8. COVID- positive on 04/19/2023 9. Volume overload 10. Hyponatremia, hypervolemic. Continue with oral Lasix. Plan: Check labs today. Lasix is currently on hold. Expect creatinine to improve as blood pressure has stabilized. Repeat labs in a.m.
[2023-05-02 12:50] LABS: African American GFR (CKD) 16 (>60 ml/min/1.73 sqM); Anion Gap 11 mmol/L; Blood Urea Nitrogen 95 mg/dL (9-20); Calcium 8.4 mg/dL (8.4-10.2); Carbon Dioxide 24 mmol/L (22-30); Chloride 101 mmol/L (98-107); Glucose 125 mg/dL (74-99); Non-African American GFR(CKD) 14 (>60 ml/min/1.73 sqM); Potassium 4.6 mmol/L (3.5-5.1); Sodium 136 mmol/L (137-145)
--- NOTE | 2023-05-02 12:56 | MR ---
EXAMINATION TYPE: MR brain wo con DATE OF EXAM: 05/02/2023 12:46 PM COMPARISON: 05/01/2023. CLINICAL INDICATION:Male, 77 years old with history of confusion with aphasia. stroke; TECHNIQUE: Multi planar, multi sequence imaging was performed through the brain including: T1, T2, In version recovery, Diffusion weighted imaging, and gradient echo imaging. No gadolinium was given. FINDINGS: Cerebral atrophy with proportional dilation to the ventricular system. The loyola-white junctions, ventricular system, and cisterns appear unremarkable. Scattered foci of hi gh T2 signal intensity are seen within the periventricular white matter. Midline structures show no a bnormality. Diffusion-weighted imaging shows no evidence of restricted diffusion. . The bone marrow signal is within normal limits. Paranasal sinuses and mastoid air cells: Mild mucosal thickening of the maxillary sinuses. Few opacif ied left mastoid air cells. Visualized orbits: Orbital contents are intact. IMPRESSION: 1. No evidence of intracranial mass or acute/subacute infarct. 2. Nonspecific white matter changes, likely secondary to small vessel ischemic disease. 3. Mild cerebral atrophy with proportional dilation of the ventricular system.
--- NOTE | 2023-05-02 13:06 | P.PN ---
Subjective Progress Note Date: 05/02/23 this is a 77-year-old white male, very familiar to my service, I have seen this patient many times in the past for history of chronic obstructive pulmonary disease, and recurrent diastolic congestive heart failure/chronic. Patient was last here last month, and he was treated for Pseudomonas pneumonia. Patient was discharged to rehab, and has been in rehab recently until yesterday patient was complaining of weakness, shortness of breath, he was sent to [facility] initially, and he was found in atrial fibrillation with RVR. Patient was also noted to be hypotensive. Patient has been receiving antibiotics in the form of redness cefepime via PICC line in his left upper extremity. At [facility] the patient was given Cardizem, and he was noted to be hypotensive, hence arrangements were made for the patient to transfer to [facility]. Patient was given fluid boluses while in the ER, and he developed some component of interstitial edema, at the same time the patient was placed on low-dose norepinephrine, admitted to the ICU, and this consult was initiated. Patient is on cefepime is also on vancomycin, he is yet to be seen by nephrology and infectious disease on consultation, patient is also on eliquis chronically. During my evaluation, the patient was on room air, he does have intermittent cough and wheezing.WC count is 8.1 hemoglobin is 12 electrolytes are normal BUN is 57 creatinine 2.15.baseline creatinine is in the range of 1.5 from the last admission.troponins were also noted to be elevated 0.33 follow-up troponin was 0.234.chest x-ray showed cardiomegaly, and mild interstitial infiltrates/edema. Patient was seen and evaluated on 04/27/2023, remains in the ICU, remains on 4 L nasal cannula, remains on Cardizem drip at 10 mg per hour remains on norepinephrine at 0.0-3 mcg/kg/m, IV fluids at KVO, patient is sleeping and dressing this morning, he had episodes of anxiety yesterday. Under control, patient is maintained on Xanax. Cardiology is planning to cut down his Cardizem down to 5 mg per hour, hopefully with good taper and possibly discontinue norepinephrine today. Overall the patient is doing much better today compared to yesterday. WBC count is 6 hemoglobin is 10.8 electrolytes are normal BUN is 51 creatinine 2.08, improving compared to his admission creatinine of 2.21. Chest x-ray is showing nonspecific interstitial bilateral changes patient is known to have history of nonspecific interstitial pneumonitis. And chronic di astolic congestive heart failure Reevaluated today on 04/28/2023, patient is having more symptoms of cough wheezing shortness of breath and chest tightness. Hence I started the patient on relatively high-dose of steroids. Patient is now off Cardizem, he is off norepinephrine, continues to cough and wheeze and continues to have chest tightness his CBC is relatively normal in the class abnormal BUN is 47 creatinine 2.31, slightly worse compared to yesterday. Chest x-ray showed minimal interstitial edema and pulmonary vascular congestion patient is on diuretics, he is also on bronchodilators, and steroids were added today The patient is seen today 04/29/2023 in follow-up in the intensive care unit. He is currently sitting up in bed. Awake and alert in no acute distress. Maintaining O2 saturations in the 90s on 3 L/m per nasal cannula. He's been afebrile. Norepinephrine has been discontinued. Normal saline at KVO. Chest x-ray reveals left lower lobe infiltrate. Atypical pulmonary edema. Few curly B-lines on the right. Mild congestive heart failure. He remains in atrial fibr illation with a controlled ventricular rate. Blood cultures reveal no growth. Sputum culture revealed no growth. White count 2.5. Hemoglobin 10.0. Platelets 43,000. Sodium 128. Potassium 4.3. Bicarb 21. BUN 54. Creatinine 2.36. Glucose 316. He is continued on Symbicort, albuterol, IV Solu-Medrol. Anticoagulated with Eliquis. Antibiotics in the form of cefepime. Remains on oral diuretics. Metoprolol for rate control. The patient is seen today 05/02/2023 in follow-up on the regular medical floor. He is currently sitting up in bed. Awake and alert. Maintaining O2 saturations in the 90s on 3 L/m per nasal cannula. Chest x-ray reveals cardiomegaly with left mid and lower lung patchy airspace opacities. Sputum culture positive for Susana. Blood cultures revealed no growth. Sodium 136. Potassium 4.6. Bicarb 24. BUN 95. Creatinine 3.83. Glucose 125. He is continued on Symbicort, albuterol, IV Solu-Medrol. Antibiotics in the form of cefepime. Anticoagulated with Eliquis. Having some episodes of confusion. MRI of the brain revealed no evidence of intracranial mass or acute/subacute stroke. Objective - Vital Signs Vital signs: Vital Signs Temp 97.5 F L 05/02/23 07:24 Pulse 78 05/02/23 07:24 Resp 20 05/02/23 10:22 BP 111/75 05/02/23 07:24 Pulse Ox 95 05/02/23 08:03 FiO2 Intake & Output 05/01/23 05/02/23 05/02/23 18:59 06:59 18:59 Intake Total 574 Output Total 800 800 1 Balance -226 -800 -1 Intake: IV 80 Cefepime 1 gm In Sodium 50 Chloride 0.9% 50 ml @ 12. 5 mls/hr IVPB Q12H [facility] Rx #:[id number] Invasive Line 4 30 Oral 494 Output: Urine 800 800 Stool 1 Other: Voiding Method Indwelling Catheter External Catheter External Catheter # Voids 1 # Bowel Movements 0 - Exam GENERAL EXAM: Alert, confused at times 77-year-old male patient, 3 L nasal cannula, comfortable in no apparent distress. HEAD: Normocephalic. EYES: Normal reaction of pupils, equal size. NOSE: Clear with pink turbinates. THROAT: No erythema or exudates. NECK: No masses, no JVD. CHEST: No chest wall deformity. LUNGS: Equal air entry with crackles in the bilateral bases left greater than right. CVS: S1 and S2 normal with no audible murmur, irregular rhythm. ABDOMEN: No hepatosplenomegaly, normal bowel sounds, no guarding or rigidity. SPINE: No scoliosis or deformity SKIN: No rashes CENTRAL NERVOUS SYSTEM: No focal deficits, tone is normal in all 4 extremities. EXTREMITIES: There is 1+ peripheral edema. No clubbing, no cyanosis. Aicha pheral pulses are intact. - Labs CBC & Chem 7: 05/01/23 09:02 05/02/23 08:06 Labs: Abnormal Lab Results - Last 24 Hours (Table) 04/28/23 05/01/23 05/01/23 Range/Units 03:54 17:32 21:00 Sodium (137-145) mmol/L BUN (9-20) mg/dL Creatinine (0.66-1.25) mg/dL Glucose (74-99) mg/dL POC Glucose (mg/dL) 181 H 176 H (70-110) mg/dL C-Reactive Protein (0.00-0.80) mg/dL Methylmalonic Acid 1.59 H (<0.40) umol/L Procalcitonin (0.02-0.09) ng/mL 05/02/23 05/02/23 05/02/23 Range/Units 05:45 08:06 08:06 Sodium (137-145) mmol/L BUN (9-20) mg/dL Creatinine (0.66-1.25) mg/dL Glucose (74-99) mg/dL POC Glucose (mg/dL) 160 H (70-110) mg/dL C-Reactive Protein 2.50 H (0.00-0.80) mg/dL Methylmalonic Acid (<0.40) umol/L Procalcitonin 0.25 H (0.02-0.09) ng/mL 05/02/23 Range/Units 08:06 Sodium 136 L (137-145) mmol/L BUN 95 H (9-20) mg/dL Creatinine 3.83 H (0.66-1.25) mg/dL Glucose 125 H (74-99) mg/dL POC Glucose (mg/dL) (70-110) mg/dL C-Reactive Protein (0.00-0.80) mg/dL Methylmalonic Acid (<0.40) umol/L Procalcitonin (0.02-0.09) ng/mL Assessment and Plan Assessment: Chronic atrial fibrillation, patient presented with atrial fibrillation with RVR. Anticoagulated with Eliquis Acute exacerbation of chronic systolic congestive heart failure, ejection fraction 30-35% on 03/29/2023 Acute exacerbation of COPD COVID-19 infection Altered mental status. MRI of the brain did not reveal any acute/subacute stroke or lesions Acute on chronic kidney disease stage III Recent history of pneumonia secondary to pseudomonas aeruginosa, on cefepime. Moderate severe aortic stenosis with pulmonary hypertension Former smoker History of coronary artery disease and previous CABG and stenting Dyslipidemia Hypothyroidism Poor overall functional performance based on the above-mentioned multiple comorbidities Plan: The patient was seen and evaluated Chest x-ray, MRI of the brain, labs and medications reviewed Stable and on 3 L nasal cannula Continue antibiotics, bronchodilators We will continue to follow I have personally seen and examined the patient, performed the documentation and the assessment and plan as written. Number of minutes spent on the visit: 10.
[2023-05-02] MEDS ORDERED: FUROSEMIDE 10 MG/ML 4 ML VIAL IV STA (15:31)
--- NOTE | 2023-05-02 15:33 | P.PN ---
Subjective Progress Note Date: 05/02/23 This is a 77-year-old male patient who presented to the hospital complaints of weakness and shortness of breath on 04/25/2023. upon arrival patient was found to be in CHF started on IV Lasix. Patient also testing positive for COVID-19 outside facility. Patient was also found to be acute on chronic renal with a creatinine of 2.5. Patient has extensive medical history including chronic systolic dysfunction, atrial fibrillation, severe pulmonary hypertension and severe stenosis. Patient was initially admitted to the intensive care unit and required Levophed for pressure support. Pulmonary, infectious disease, cardiology and nephrology services were consulted. On 05/01/2023 and resuming care patient Dr. Partida's group previously covering Patient currently resting comfortably in bed on MedSurg unit. Patient having increased confusion head CT was completed showing no acute intracranial process. Nonspecific white matter changes likely secondary to chronic small vessel ischemic disease. Will consult neurology services. Patient's creatinine also increasing to 3.4 and bun 84. Patient was recently transitioned to by mouth Lasix. Nephrology services are following. Patient remains on IV antibiotics infectious services following. Her vital signs temp 97.2, heart rate 81, respiratory rate 18, blood pressure 130/73 with pulse ox 98% on 4 L On 05/02/2023 patient was seen and examined on the telemetry floor he is alert, slightly confused in no apparent distress, he is complaining of shortness of breath, otherwise he denies any complaints there is no fever or chills no headache or dizziness no chest pain no palpitation he has occasional cough no nausea or vomiting no abdominal pain no diarrhea and no urinary symptoms. On chest exam patient has bilateral crackles in both lung fuentes, currently he is off Lasix. Dr. Weller was contacted and she agreed to give patient a 1 dose of Lasix 40 mg IV now, creatinine today is 3.2, will continue to monitor closely Objective - Vital Signs Vital signs: Vital Signs Temp 97.5 F L 05/02/23 07:24 Pulse 78 05/02/23 07:24 Resp 20 05/02/23 07:50 BP 111/75 05/02/23 07:24 Pulse Ox 95 05/02/23 08:03 FiO2 Intake & Output 05/01/23 05/02/23 05/02/23 18:59 06:59 18:59 Intake Total 574 Output Total 800 800 Balance -226 -800 Intake: IV 80 Cefepime 1 gm In Sodium 50 Chloride 0.9% 50 ml @ 12. 5 mls/hr IVPB Q12H [facility] Rx #:[id number] Invasive Line 4 30 Oral 494 Output: Urine 800 800 Other: Voiding Method Indwelling Catheter External Catheter # Voids 1 # Bowel Movements 0 - Exam Head normocephalic Neck supple Lungs clear to auscultation bilaterally no wheezing or crackles Heart regular rate and rhythm S1-S2, no rub or gallop Abdomen is soft nontender nondistended positive bowel sounds no hepatosplenomegaly Extremities no edema Neuro alert and orientated to 3. Intermittent confusion - Labs CBC & Chem 7: 05/01/23 09:02 05/02/23 08:06 Labs: Abnormal Lab Results - Last 24 Hours (Table) 04/28/23 05/01/23 05/01/23 Range/Units 03:54 09:02 09:02 RBC 3.39 L (4.30-5.90) m/uL Hgb 11.0 L (13.0-17.5) gm/dL Hct 32.8 L (39.0-53.0) % Plt Count 78 L D (150-450) k/uL Lymphocytes # 0.2 L (1.0-4.8) k/uL Sodium 133 L (137-145) mmol/L BUN 84 H (9-20) mg/dL Creatinine 3.46 H (0.66-1.25) mg/dL Glucose 162 H (74-99) mg/dL POC Glucose (mg/dL) (70-110) mg/dL Calcium 8.1 L (8.4-10.2) mg/dL Methylmalonic Acid 1.59 H (<0.40) umol/L RBC Folate 951 H (280 - 791) ng/mL 05/01/23 05/01/23 05/01/23 Range/Units 10:53 12:00 17:32 RBC (4.30-5.90) m/uL Hgb (13.0-17.5) gm/dL Hct (39.0-53.0) % Plt Count (150-450) k/uL Lymphocytes # (1.0-4.8) k/uL Sodium (137-145) mmol/L BUN (9-20) mg/dL Creatinine (0.66-1.25) mg/dL Glucose (74-99) mg/dL POC Glucose (mg/dL) 148 H 140 H 181 H (70-110) mg/dL Calcium (8.4-10.2) mg/dL Methylmalonic Acid (<0.40) umol/L RBC Folate (280 - 791) ng/mL 05/01/23 05/02/23 Range/Units 21:00 05:45 RBC (4.30-5.90) m/uL Hgb (13.0-17.5) gm/dL Hct (39.0-53.0) % Plt Count (150-450) k/uL Lymphocytes # (1.0-4.8) k/uL Sodium (137-145) mmol/L BUN (9-20) mg/dL Creatinine (0.66-1.25) mg/dL Glucose (74-99) mg/dL POC Glucose (mg/dL) 176 H 160 H (70-110) mg/dL Calcium (8.4-10.2) mg/dL Methylmalonic Acid (<0.40) umol/L RBC Folate (280 - 791) ng/mL Assessment and Plan Assessment: 1. Acute hypoxic respiratory failure secondary to acute CHF, pseudomonas pneumonia and Covid infection 2. Acute renal failure due to ATN from hypotension 3. Hypovolemic shock requiring vasopressor support, resolved 4. Recent Pseudomonas pneumonia. Patient was treated outpatient 5. Increased confusion 6. History of paroxysmal atrial fibrillation. Patient did require IV Cardizem. Rate has improved 7. Diabetes mellitus type 2 8. COVID-19 pneumonia diagnosed outpatient 9. Thrombocytopenia likely secondary from antibiotics in recent illness 10. Ischemic cardiomyopathy 11. Moderate aortic stenosis and pulmonary hypertension 12. History of coronary artery bypass graft surgery 13. History of hypothyroidism DVT prophylaxis eliquis GI prophylaxis Protonix Patient maintained on IV antibiotics Nephrology, pulmonary, infectious and cardiology services are following Neurology services consulted for confusion Repeat labs ordered
[2023-05-02] MEDS: GABAPENTIN 400 MG CAP PO SCH ×3 (15:45→21:38)
[2023-05-02 16:48] LABS: Glucose,Whole Blood 154 mg/dL (70-110)
--- NOTE | 2023-05-02 17:55 | P.PN ---
Subjective Progress Note Date: 05/02/23 Principal diagnosis: a-fib, dehydration At today's visit patient is confused. primary RN reports the patient is more confused today than previous days. MRI and EEG scheduled for today. He is answering questions appropriately but is confused to place and surroundings. Patient is complaining shortness of breath. Objective - Vital Signs Vital signs: Vital Signs Temp 97.5 F L 05/02/23 07:24 Pulse 92 05/02/23 14:00 Resp 20 05/02/23 14:00 BP 133/91 05/02/23 14:00 Pulse Ox 93 L 05/02/23 14:00 FiO2 Intake & Output 05/01/23 05/02/23 05/02/23 18:59 06:59 18:59 Intake Total 574 200 Output Total 800 800 1 Balance -226 -800 199 Intake: IV 80 Cefepime 1 gm In Sodium 50 Chloride 0.9% 50 ml @ 12. 5 mls/hr IVPB Q12H [facility] Rx #:[id number] Invasive Line 4 30 Oral 494 200 Output: Urine 800 800 Stool 1 Other: Voiding Method Indwelling Catheter External Catheter External Catheter # Voids 1 # Bowel Movements 0 - Constitutional General appearance: Present: no acute distress, obese - EENT Eyes: Present: anicteric sclerae, EOMI ENT: Present: hearing grossly normal - Respiratory Details: breathing mildly labored - Cardiovascular Details: skin warm and dry - Integumentary Integumentary: Absent: cyanotic - Neurologic Neurologic Comment(s): confused - Musculoskeletal Musculoskeletal: Present: generalized weakness - Psychiatric Psychiatric Comment(s): A&O x 1-2 - Labs CBC & Chem 7: 05/01/23 09:02 05/02/23 08:06 Labs: Abnormal Lab Results - Last 24 Hours (Table) 04/28/23 05/01/23 05/02/23 Range/Units 03:54 21:00 05:45 Sodium (137-145) mmol/L BUN (9-20) mg/dL Creatinine (0.66-1.25) mg/dL Glucose (74-99) mg/dL POC Glucose (mg/dL) 176 H 160 H (70-110) mg/dL C-Reactive Protein (0.00-0.80) mg/dL Methylmalonic Acid 1.59 H (<0.40) umol/L Procalcitonin (0.02-0.09) ng/mL 05/02/23 05/02/23 05/02/23 Range/Units 08:06 08:06 08:06 Sodium 136 L (137-145) mmol/L BUN 95 H (9-20) mg/dL Creatinine 3.83 H (0.66-1.25) mg/dL Glucose 125 H (74-99) mg/dL POC Glucose (mg/dL) (70-110) mg/dL C-Reactive Protein 2.50 H (0.00-0.80) mg/dL Methylmalonic Acid (<0.40) umol/L Procalcitonin 0.25 H (0.02-0.09) ng/mL 05/02/23 Range/Units 16:47 Sodium (137-145) mmol/L BUN (9-20) mg/dL Creatinine (0.66-1.25) mg/dL Glucose (74-99) mg/dL POC Glucose (mg/dL) 154 H (70-110) mg/dL C-Reactive Protein (0.00-0.80) mg/dL Methylmalonic Acid (<0.40) umol/L Procalcitonin (0.02-0.09) ng/mL Assessment and Plan (1) Thrombocytopenia Current Visit: Yes Status: Acute Priority: Medium Code(s): D69.6 - THROMBOCYTOPENIA, UNSPECIFIED SNOMED Code(s): 478225648 Plan: Thrombocytopenia: -This is felt to be multifactorial. The patient has had previous episodes of mild pancytopenia, with platelet counts typically in the 100-150,000, associated with acute illnesses causing hospital admissions. Does have CHF, and hepatom egaly on prior ultrasound. Given his medical history, he likely has some underlying baseline compromise of the platelet line due to her disease from fatty infiltration and/or congestive hepatomegaly due to his CHF. Therefore his platelet counts while typically normal when he is in a normal state of health, drop in conditions of additional stress. During this admission they drop his to a greater degree, likely due to recent pseudomonas bacteremia, beta-lactamase antibiotic use, followed by COVID, and then another CHF exacerbation. - DIC workup negative. Folate 17.9, Vitamin B12 380. MMA elevated at 1.59 which could indicate mild Vit B12 deficiency, however this could be contributed by his acute inflammatory/infectious state. PO vitamin B12 has been started. TSH normal - Review of order history shows no evidence of exposure to heparin or heparinoids. This was further confirmed with nursing. - Based on above workup, it would be expected that his platelet counts will return back to baseline as his acute condition improves. - Case discussed with cardiology. The patient can be continued on anticoagulation and antiplatelet therapy as long as his platelet counts are greater than 50,000. If they drop below 50,000, since recovery in the short- term is anticipated, the patient can be managed by temporary cessation of his anticoagulation/antiplatelet agent or with platelet transfusions if stopping of the medications is felt to be higher risk. S/p 1 unit of platelets on 04/29 with appropriate response. -Will continue to monitor. Defer to the admitting service and other consultants for management of his multiple other medical problems.
[2023-05-02] MEDS ORDERED: FORMOTEROL FUMARATE 20 MCG/2 ML NEBU INHALATION SCH (20:00)
[2023-05-02] MEDS ORDERED: BUDESONIDE 1 MG/2 ML NEBU INHALATION SCH (20:00)
[2023-05-02 21:02] LABS: Glucose,Whole Blood 290 mg/dL (70-110)
[2023-05-02] MEDS: ATORVASTATIN 40 MG TAB PO SCH (21:38)
--- NOTE | 2023-05-02 22:42 | EEG ---
ELECTROENCEPHALOGRAM REPORT CLINICAL HISTORY: This is a 77-year-old gentleman who has altered mental status. The video EEG is obtained to evaluate for seizure epileptiform activity. RELEVANT MEDICATION: Xanax and gabapentin. DESCRIPTION: Background consists of low to moderate voltage of 7 hertz activity. At times, the background consists of nonrhythmic diffuse [id number]-gz-krzstrne voltage delta activity. There is no physiological stage 2 sleep architecture. There is no focal slowing. Interictal and ictal is none. ACTIVATION PROCEDURE: Photic stimulation and hyperventilation were not performed. CLINICAL INTERPRETATION: This is an abnormal routine EEG. The background slowing is suggestive of mild-to- moderate encephalopathy likely due to toxic metabolic derangement. Otherwise, there is no focal slowing, epileptiform discharge or seizure on the EEG. Clinical correlation is recommended. MARGOTL / NORAN: [id number] /
[2023-05-02] MEDS: ACETAMINOPHEN TAB 325 MG TAB PO PRN (23:52)
[2023-05-03] MEDS: CEFEPIME 1 GM in SODIUM CHLORIDE 0.9% 50 ML IVPB SCH (05:29)
[2023-05-03] MEDS: methylPREDNISolone SOD SUCCI 40 MG/ML 1 ML VIAL IV SCH ×4 (06:12→23:57)
[2023-05-03] MEDS: ACETAMINOPHEN TAB 325 MG TAB PO PRN (06:14)
[2023-05-03 06:19] LABS: Glucose,Whole Blood 372 mg/dL (70-110)
[2023-05-03] MEDS: MIDODRINE 5 MG TAB PO SCH ×3 (06:45→16:09)
[2023-05-03] MEDS: INSULIN ASPART (NovoLOG) 100 UNIT/ML VIAL SQ SCH ×7 (06:47→20:19)
[2023-05-03] MEDS: PANTOPRAZOLE 40 MG TABLET PO SCH (06:47)
[2023-05-03] MEDS: SYMBICORT 80-4.5 MCG INHALER INHALATION SCH (07:47)
[2023-05-03] MEDS: ALBUTEROL HFA INHALER INHALATION SCH ×5 (07:47→21:50)
[2023-05-03] MEDS ORDERED: FUROSEMIDE 10 MG/ML 4 ML VIAL IV STA (08:01)
[2023-05-03] MEDS ORDERED: FUROSEMIDE 10 MG/ML 2 ML VIAL IV ONE (08:13)
[2023-05-03 10:09] LABS: Glucose,Whole Blood 313 mg/dL (70-110)
[2023-05-03] MEDS: APIXABAN 2.5 MG TABLET PO SCH ×2 (10:16→16:09)
[2023-05-03] MEDS: LEVOTHYROXINE 112 MCG TAB PO SCH (10:16)
[2023-05-03] MEDS: METOPROLOL SUCCINATE (ER) 50 MG TAB.ER.24H PO SCH (10:17)
[2023-05-03] MEDS: LEVOTHYROXINE 125 MCG TAB PO SCH (10:17)
--- NOTE | 2023-05-03 10:20 | P.PN ---
Subjective Progress Note Date: 05/03/23 This is a 77-year-old male patient who presented to the hospital complaints of weakness and shortness of breath on 04/25/2023. upon arrival patient was found to be in CHF started on IV Lasix. Patient also testing positive for COVID-19 outside facility. Patient was also found to be acute on chronic renal with a creatinine of 2.5. Patient has extensive medical history including chronic systolic dysfunction, atrial fibrillation, severe pulmonary hypertension and severe stenosis. Patient was initially admitted to the intensive care unit and required Levophed for pressure support. Pulmonary, infectious disease, cardiology and nephrology services were consulted. On 05/01/2023 and resuming care patient Dr. Partida's group previously covering Patient currently resting comfortably in bed on MedSurg unit. Patient having increased confusion head CT was completed showing no acute intracranial process. Nonspecific white matter changes likely secondary to chronic small vessel ischemic disease. Will consult neurology services. Patient's creatinine also increasing to 3.4 and bun 84. Patient was recently transitioned to by mouth Lasix. Nephrology services are following. Patient remains on IV antibiotics infectious services following. Her vital signs temp 97.2, heart rate 81, respiratory rate 18, blood pressure 130/73 with pulse ox 98% on 4 L On 05/02/2023 patient was seen and examined on the telemetry floor he is alert, slightly confused in no apparent distress, he is complaining of shortness of breath, otherwise he denies any complaints there is no fever or chills no headache or dizziness no chest pain no palpitation he has occasional cough no nausea or vomiting no abdominal pain no diarrhea and no urinary symptoms. On chest exam patient has bilateral crackles in both lung fuentes, currently he is off Lasix. Dr. Weller was contacted and she agreed to give patient a 1 dose of Lasix 40 mg IV now, creatinine today is 3.2, will continue to monitor closely On 05/02/2023 patient remains confused. Increased shortness of breath. 60 mg Lasix ordered per nephrology services. BiPAP ordered per pulmonary patient will be transferred to [address] [place] [address] for increased level of care. CMP currently pending. Pulmonary, nephrology, infectious disease and neurology services are following. Prognosis remains guarded at this time Objective - Vital Signs Vital signs: Vital Signs Temp 97.4 F L 05/03/23 07:31 Pulse 84 05/03/23 07:31 Resp 21 05/03/23 07:31 BP 111/65 05/03/23 07:31 Pulse Ox 90 L 05/03/23 07:31 FiO2 50 05/03/23 10:05 Intake & Output 05/02/23 05/03/23 05/03/23 18:59 06:59 18:59 Intake Total 200 Output Total 1 225 Balance 199 -225 Intake: Oral 200 Output: Urine 225 Stool 1 Other: Voiding Method External Catheter Diaper Incontinent # Voids 1 1 # Bowel Movements 1 - Exam Head normocephalic Neck supple Lungs clear to auscultation bilaterally no wheezing or crackles Heart regular rate and rhythm S1-S2, no rub or gallop Abdomen is soft nontender nondistended positive bowel sounds no hepatosplenomegaly Extremities no edema Neuro alert and orientated to 3. Intermittent confusion - Labs CBC & Chem 7: 05/01/23 09:02 05/02/23 08:06 Labs: Abnormal Lab Results - Last 24 Hours (Table) 05/02/23 05/02/23 05/02/23 Range/Units 08:06 08:06 08:06 Sodium 136 L (137-145) mmol/L BUN 95 H (9-20) mg/dL Creatinine 3.83 H (0.66-1.25) mg/dL Glucose 125 H (74-99) mg/dL POC Glucose (mg/dL) (70-110) mg/dL C-Reactive Protein 2.50 H (0.00-0.80) mg/dL Procalcitonin 0.25 H (0.02-0.09) ng/mL 05/02/23 05/02/23 05/03/23 Range/Units 16:47 21:00 06:17 Sodium (137-145) mmol/L BUN (9-20) mg/dL Creatinine (0.66-1.25) mg/dL Glucose (74-99) mg/dL POC Glucose (mg/dL) 154 H 290 H 372 H (70-110) mg/dL C-Reactive Protein (0.00-0.80) mg/dL Procalcitonin (0.02-0.09) ng/mL 05/03/23 Range/Units 10:07 Sodium (137-145) mmol/L BUN (9-20) mg/dL Creatinine (0.66-1.25) mg/dL Glucose (74-99) mg/dL POC Glucose (mg/dL) 313 H (70-110) mg/dL C-Reactive Protein (0.00-0.80) mg/dL Procalcitonin (0.02-0.09) ng/mL Assessment and Plan Assessment: 1. Acute hypoxic respiratory failure secondary to acute CHF, pseudomonas pneumonia and Covid infection 2. Acute renal failure due to ATN from hypotension 3. Hypovolemic shock requiring vasopressor support, resolved 4. Recent Pseudomonas pneumonia. Patient was treated outpatient 5. Increased confusion 6. History of paroxysmal atrial fibrillation. Patient did require IV Cardizem. Rate has improved 7. Diabetes mellitus type 2 8. COVID-19 pneumonia diagnosed outpatient 9. Thrombocytopenia likely secondary from antibiotics in recent illness 10. Ischemic cardiomyopathy 11. Moderate aortic stenosis and pulmonary hypertension 12. History of coronary artery bypass graft surgery 13. History of hypothyroidism DVT prophylaxis eliquis GI prophylaxis Protonix Patient maintained on IV antibiotics Nephrology, pulmonary, infectious and cardiology services are following BiPAP ordered per pulmonary Patient to be transferred to [address] [place] [address] for higher level care Neurology services consulted for confusion Repeat labs ordered
[2023-05-03] MEDS: ASCORBIC ACID 500 MG TAB PO SCH (10:22)
[2023-05-03] MEDS: CHOLECALCIFEROL 25 MCG (1000 IU) TABLET PO SCH (10:23)
[2023-05-03] MEDS: CYANOCOBALAMIN 500 MCG TAB PO SCH (10:34)
[2023-05-03] MEDS: ZINC SULFATE 220 MG CAP PO SCH (10:35)
[2023-05-03] MEDS: NYSTATIN 100,000 UNIT/ML SUSP 500,000 UNIT/5 ML CUP PO SCH ×4 (10:35→20:54)
[2023-05-03] MEDS: INSULIN DETEMIR (LEVEMIR) 100 UNIT/ML SYR SQ SCH ×2 (10:46→20:49)
[2023-05-03 10:51] LABS: Basophils # (A) 0.01 X 10*3/uL (0.00-0.10); Basophils % (A) 0.2 %; Eosinophils # (A) 0 X 10*3/uL (0.04-0.35); Eosinophils % (A) 0 %; HCT 36.3 % (39.6-50.0); HGB 11.4 d/dL (12.0-15.0); Lymphocytes # (A) 0.15 X 10*3/uL (0.90-5.00); Lymphocytes % (A) 2.9 %; MCH 31.1 pg (27.0-32.0); MCHC 31.4 d/dL (32.0-37.0); MCV 98.9 FL (80.0-97.0); Mean Platelet Volume 10.6 FL (9.5-12.2); Monocytes # (A) 0.11 X 10*3/uL (0.20-1.00); Monocytes % (A) 2.1 %; NRBC Per 100 WBC 0 X 10*3/uL (0.00-0.01); Neutrophils # (A) 4.95 X 10*3/uL (1.80-7.70); Platelet Count 135 X 10*3/uL (140-440); RBC 3.67 X 10*6/uL (4.40-5.60); RDW 14.8 % (11.5-14.5); WBC 5.26 X 10*3/uL (4.50-10.00)
[2023-05-03 11:19] LABS: ALT 19 U/L (10-49); AST 12 U/L (14-35); Albumin/Globulin Ratio 1.15 Ratio (1.60-3.17); Alkaline Phosphatase 71 U/L (41-126); Calcium 8.9 mg/dL (8.7-10.3); Carbon Dioxide 20.8 mmol/L (21.6-31.8); Chloride 100 mmol/L (96-109); Globulin 2.6 d/dL (1.6-3.3); Glucose 370 mg/dL (70-110); Potassium 5.1 mmol/L (3.5-5.5); Sodium 138 mmol/L (135-145); Total Bilirubin 0.6 mg/dL (0.3-1.2); Total Protein 5.6 d/dL (6.2-8.2)
--- NOTE | 2023-05-03 11:19 | P.PN ---
Subjective Patient is seen for f/u for JEREMY on top of CKD. COVID positive. Good UOP, 1.6 L for 24 hours. No significant shortness of breath. Serum creatinine increased to 3.8 yesterday Lasix was on hold for one day. Yesterday patient developed worsening shortness of breath and received Lasix 40 mg IV and this morning patient was again short of breath and is being placed on BiPAP. Machado catheter was removed a couple of days ago. Urine output has been low. Bladder scan has been ordered. Objective - Vital Signs Vital signs: Vital Signs Temp 97.4 F L 05/03/23 07:31 Pulse 84 05/03/23 07:31 Resp 21 05/03/23 07:31 BP 111/65 05/03/23 07:31 Pulse Ox 90 L 05/03/23 07:31 FiO2 50 05/03/23 10:05 Intake & Output 05/02/23 05/03/23 05/03/23 18:59 06:59 18:59 Intake Total 200 Output Total 1 225 Balance 199 -225 Intake: Oral 200 Output: Urine 225 Stool 1 Other: Voiding Method External Catheter Diaper Incontinent # Voids 1 1 # Bowel Movements 1 - Exam Patient is sleeping, arousable, currently on BiPAP Comfortable A and O x3 Lungs have decreased breath sounds at bases. No Wheezing CVS S1 and S2 Abdomen is soft, non tender. Extremities show no significant edema. - Labs CBC & Chem 7: 05/03/23 06:44 05/02/23 08:06 Labs: Abnormal Lab Results - Last 24 Hours (Table) 05/02/23 05/02/23 05/02/23 Range/Units 08:06 08:06 08:06 RBC (4.40-5.60) X 10*6/uL Hgb (12.0-15.0) d/dL Hct (39.6-50.0) % MCV (80.0-97.0) FL MCHC (32.0-37.0) d/dL RDW (11.5-14.5) % Plt Count (140-440) X 10*3/uL Lymphocytes # (0.90-5.00) X 10*3/uL Monocytes # (0.20-1.00) X 10*3/uL Eosinophils # (0.04-0.35) X 10*3/uL Sodium 136 L (137-145) mmol/L BUN 95 H (9-20) mg/dL Creatinine 3.83 H (0.66-1.25) mg/dL Glucose 125 H (74-99) mg/dL POC Glucose (mg/dL) (70-110) mg/dL C-Reactive Protein 2.50 H (0.00-0.80) mg/dL Procalcitonin 0.25 H (0.02-0.09) ng/mL 05/02/23 05/02/23 05/03/23 Range/Units 16:47 21:00 06:17 RBC (4.40-5.60) X 10*6/uL Hgb (12.0-15.0) d/dL Hct (39.6-50.0) % MCV (80.0-97.0) FL MCHC (32.0-37.0) d/dL RDW (11.5-14.5) % Plt Count (140-440) X 10*3/uL Lymphocytes # (0.90-5.00) X 10*3/uL Monocytes # (0.20-1.00) X 10*3/uL Eosinophils # (0.04-0.35) X 10*3/uL Sodium (137-145) mmol/L BUN (9-20) mg/dL Creatinine (0.66-1.25) mg/dL Glucose (74-99) mg/dL POC Glucose (mg/dL) 154 H 290 H 372 H (70-110) mg/dL C-Reactive Protein (0.00-0.80) mg/dL Procalcitonin (0.02-0.09) ng/mL 05/03/23 05/03/23 Range/Units 06:44 10:07 RBC 3.67 L (4.40-5.60) X 10*6/uL Hgb 11.4 L (12.0-15.0) d/dL Hct 36.3 L (39.6-50.0) % MCV 98.9 H (80.0-97.0) FL MCHC 31.4 L (32.0-37.0) d/dL RDW 14.8 H (11.5-14.5) % Plt Count 135 L (140-440) X 10*3/uL Lymphocytes # 0.15 L (0.90-5.00) X 10*3/uL Monocytes # 0.11 L (0.20-1.00) X 10*3/uL Eosinophils # 0 L (0.04-0.35) X 10*3/uL Sodium (137-145) mmol/L BUN (9-20) mg/dL Creatinine (0.66-1.25) mg/dL Glucose (74-99) mg/dL POC Glucose (mg/dL) 313 H (70-110) mg/dL C-Reactive Protein (0.00-0.80) mg/dL Procalcitonin (0.02-0.09) ng/mL Assessment and Plan Assessment: 1. Acute kidney injury, nonoliguric secondary to hemodynamic ATN secondary to low blood pressure and hemodynamic instability with A. fib with RVR. Possible cardiorenal component as well. Patient is currently being diuresed. Blood pressure remains on the lower side. Maintained on midodrine. Serum creatinine increased to 3.8 . Restarted IV Lasix due to worsening shortness of breath. Also repeating bladder scan to rule out urine retention. 2. Chronic kidney disease NKF stage IIIB with baseline creatinine 1.3-1.5 mg/dL secondary to diabetic kidney disease 3. Pseudomonas pneumonia on recent admission on 04/06/2023 maintained on cefepime at home 4. Acute COPD exacerbation status post treatment and discharge about 10 days ago 5. Cardiomyopathy with ejection fraction 20-30%. Ischemic cardiomyopathy 6. Chronic systolic CHF with acute exacerbation 7. A. fib with RVR 8. COVID- positive on 04/19/2023 9. Volume overload 10. Hyponatremia, hypervolemic. Improved 11. Acute hypoxic respiratory failure secondary to fluid overload as well as Covid infection Plan: Resume IV Lasix at 60 mg every 12 hours Check bladder scan and replace Machado catheter if patient is retaining Repeat chest x-ray Repeat labs in a.m.
--- NOTE | 2023-05-03 12:41 | P.PN ---
Subjective Progress Note Date: 05/02/23 Principal diagnosis: Pneumonia Patient is a 77-year male with multiple comorbidities including COPD diastolic heart failure was recently diagnosed with Pseudomonas pneumonia, patient was subsequently diagnosed with a Covid 19 on 04/23/2023 at the local [facility] has been brought into the hospital for shortness of breath A. fib with RVR and did have hypotension on today's evaluation that is 05/02/2023, the patient continues to be afebrile, patient is breathing comfortably on 3 L nasal cannula oxygen, patient seems to be more confused today and not a good historian , no vomiting or diarrhea has been reported Objective - Vital Signs Vital signs: Vital Signs Temp 97.5 F L 05/02/23 07:24 Pulse 78 05/02/23 07:24 Resp 20 05/02/23 07:50 BP 111/75 05/02/23 07:24 Pulse Ox 88 L 05/02/23 07:50 FiO2 Intake & Output 05/01/23 05/02/23 05/02/23 18:59 06:59 18:59 Intake Total 574 Output Total 800 800 Balance -226 -800 Intake: IV 80 Cefepime 1 gm In Sodium 50 Chloride 0.9% 50 ml @ 12. 5 mls/hr IVPB Q12H [facility] Rx #:[id number] Invasive Line 4 30 Oral 494 Output: Urine 800 800 Other: Voiding Method Indwelling Catheter External Catheter # Voids 1 # Bowel Movements 0 - Exam GENERAL DESCRIPTION: An elderly male lying in bed in no distress RESPIRATORY SYSTEM: Unlabored breathing , decreased intensity of breath sounds, no wheeze HEART: S1 S2 regular rate and rhythm , ABDOMEN: Soft , no tenderness EXTREMITIES: No edema feet - Labs CBC & Chem 7: 05/03/23 06:44 05/03/23 06:44 Labs: Abnormal Lab Results - Last 24 Hours (Table) 04/28/23 05/01/23 05/01/23 Range/Units 03:54 09:02 09:02 RBC 3.39 L (4.30-5.90) m/uL Hgb 11.0 L (13.0-17.5) gm/dL Hct 32.8 L (39.0-53.0) % Plt Count 78 L D (150-450) k/uL Lymphocytes # 0.2 L (1.0-4.8) k/uL Sodium 133 L (137-145) mmol/L BUN 84 H (9-20) mg/dL Creatinine 3.46 H (0.66-1.25) mg/dL Glucose 162 H (74-99) mg/dL POC Glucose (mg/dL) (70-110) mg/dL Calcium 8.1 L (8.4-10.2) mg/dL Methylmalonic Acid 1.59 H (<0.40) umol/L RBC Folate 951 H (280 - 791) ng/mL 05/01/23 05/01/23 05/01/23 Range/Units 10:53 12:00 17:32 RBC (4.30-5.90) m/uL Hgb (13.0-17.5) gm/dL Hct (39.0-53.0) % Plt Count (150-450) k/uL Lymphocytes # (1.0-4.8) k/uL Sodium (137-145) mmol/L BUN (9-20) mg/dL Creatinine (0.66-1.25) mg/dL Glucose (74-99) mg/dL POC Glucose (mg/dL) 148 H 140 H 181 H (70-110) mg/dL Calcium (8.4-10.2) mg/dL Methylmalonic Acid (<0.40) umol/L RBC Folate (280 - 791) ng/mL 05/01/23 05/02/23 Range/Units 21:00 05:45 RBC (4.30-5.90) m/uL Hgb (13.0-17.5) gm/dL Hct (39.0-53.0) % Plt Count (150-450) k/uL Lymphocytes # (1.0-4.8) k/uL Sodium (137-145) mmol/L BUN (9-20) mg/dL Creatinine (0.66-1.25) mg/dL Glucose (74-99) mg/dL POC Glucose (mg/dL) 176 H 160 H (70-110) mg/dL Calcium (8.4-10.2) mg/dL Methylmalonic Acid (<0.40) umol/L RBC Folate (280 - 791) ng/mL Assessment and Plan (1) COVID-19 Current Visit: Yes Status: Acute Code(s): U07.1 - COVID-19 SNOMED Code(s): 918894737 (2) Pneumonia Current Visit: Yes Status: Acute Code(s): J18.9 - PNEUMONIA, UNSPECIFIED ORGANISM SNOMED Code(s): 599020248 Plan: 1patient was in the hospital with increasing shortness of breath which is likely multifactorial possibly related to underlying worsening of diastolic he art failure from A-fib with RVR clinically doubt any worsening pneumonia the patient did have positive COVID 19 and may be of possibly contributing however chest x-ray was negative for any pneumonia patient not running any fever did have a normal white count with mild lymphopenia. Continue the current supportive treatment 2-patient to continue with cefepime, repeat sputum showing Susana more likely colonizer patient will not need IV antibiotics on discharge, if confusion remains will discontinue cefepime if neuro work up is negative Time with Patient: Less than 30
[2023-05-03 12:42] LABS: Glucose,Whole Blood 250 mg/dL (70-110)
--- NOTE | 2023-05-03 14:31 | P.PN ---
Subjective Progress Note Date: 05/03/23 Patient seen at bedside and per the patient nurse he is sleepy and requiring BiPAP. Objective - Vital Signs Vital signs: Vital Signs Temp 97.8 F 05/03/23 13:35 Pulse 90 05/03/23 13:35 Resp 20 05/03/23 13:35 BP 126/83 05/03/23 13:35 Pulse Ox 90 L 05/03/23 07:31 FiO2 50 05/03/23 12:45 Intake & Output 05/02/23 05/03/23 05/03/23 18:59 06:59 18:59 Intake Total 200 Output Total 1 225 450 Balance 199 -225 -450 Intake: Oral 200 Output: Urine 225 450 Male - External 300 Stool 1 Other: Voiding Method External Catheter Diaper Diaper Incontinent Incontinent # Voids 1 1 # Bowel Movements 1 - Exam Gen.: Patient does not appear in acute distress Lung: He is on BiPAP Neuro: Very drowsy but is awake to voice. She is following very minimal simple commands such as showing a thumbs up and wiggling his toes. Otherwise examination is very limited. Some of the workup during this hospital visit consisted of: Vital B12 most recent one is 380. But the day prior was 298. Folate is 17.90. Hemoglobin A1c is 9.4. Ammonia level is less than 9 TSH is 0.586. Seems she has acute on chronic kidney insufficiency and that her kidney function is trending up. CT of the head on 05/01/23 is reported as no acute intracranial process. Nonspecific white matter changes, likely seizure due to chronic small vessel ischemic disease. Routine EEG is abnormal. The background slowing is suggestive of mild to moderate encephalopathy likely due to toxic metabolic derangement. Otherwise there is no focal slowing, epileptiform discharges or seizure on the EEG. MRI the brain without is reported as no evidence of intracranial mass or acute/subacute infarct. Nonspecific white matter changes, likely secondary to small vessel ischemic disease. Mild cerebral atrophy with proportional dilation of the ventricular system. I personally reviewed the MRI and agree there is no acute subacute ischemia. Patient has not specific white matter changes on FLAIR. - Labs CBC & Chem 7: 05/03/23 06:44 05/03/23 06:44 Labs: Abnormal Lab Results - Last 24 Hours (Table) 07/06/23 07/06/23 07/07/23 Range/Units 16:47 21:00 06:17 RBC (4.40-5.60) X 10*6/uL Hgb (12.0-15.0) d/dL Hct (39.6-50.0) % MCV (80.0-97.0) FL MCHC (32.0-37.0) d/dL RDW (11.5-14.5) % Plt Count (140-440) X 10*3/uL Lymphocytes # (0.90-5.00) X 10*3/uL Monocytes # (0.20-1.00) X 10*3/uL Eosinophils # (0.04-0.35) X 10*3/uL Carbon Dioxide (21.6-31.8) mmol/L Anion Gap (4.00-12.00) mmol/L BUN (9.0-27.0) mg/dL Creatinine (0.6-1.5) mg/dL Est GFR (CKD-EPI) (>=60) BUN/Creatinine Ratio (12.00-20.00) Ratio Glucose (70-110) mg/dL POC Glucose (mg/dL) 154 H 290 H 372 H (70-110) mg/dL AST (14-35) U/L Total Protein (6.2-8.2) d/dL Albumin (3.8-4.9) d/dL Albumin/Globulin Ratio (1.60-3.17) Ratio 05/03/23 05/03/23 05/03/23 Range/Units 06:44 06:44 10:07 RBC 3.67 L (4.40-5.60) X 10*6/uL Hgb 11.4 L (12.0-15.0) d/dL Hct 36.3 L (39.6-50.0) % MCV 98.9 H (80.0-97.0) FL MCHC 31.4 L (32.0-37.0) d/dL RDW 14.8 H (11.5-14.5) % Plt Count 135 L (140-440) X 10*3/uL Lymphocytes # 0.15 L (0.90-5.00) X 10*3/uL Monocytes # 0.11 L (0.20-1.00) X 10*3/uL Eosinophils # 0 L (0.04-0.35) X 10*3/uL Carbon Dioxide 20.8 L (21.6-31.8) mmol/L Anion Gap 17.20 H (4.00-12.00) mmol/L BUN 99.0 H (9.0-27.0) mg/dL Creatinine 4.5 H (0.6-1.5) mg/dL Est GFR (CKD-EPI) 13 L (>=60) BUN/Creatinine Ratio 22.00 H (12.00-20.00) Ratio Glucose 370 H (70-110) mg/dL POC Glucose (mg/dL) 313 H (70-110) mg/dL AST 12 L (14-35) U/L Total Protein 5.6 L (6.2-8.2) d/dL Albumin 3.0 L (3.8-4.9) d/dL Albumin/Globulin Ratio 1.15 L (1.60-3.17) Ratio /05/19 Range/Units 12:40 RBC (4.40-5.60) X 10*6/uL Hgb (12.0-15.0) d/dL Hct (39.6-50.0) % MCV (80.0-97.0) FL MCHC (32.0-37.0) d/dL RDW (11.5-14.5) % Plt Count (140-440) X 10*3/uL Lymphocytes # (0.90-5.00) X 10*3/uL Monocytes # (0.20-1.00) X 10*3/uL Eosinophils # (0.04-0.35) X 10*3/uL Carbon Dioxide (21.6-31.8) mmol/L Anion Gap (4.00-12.00) mmol/L BUN (9.0-27.0) mg/dL Creatinine (0.6-1.5) mg/dL Est GFR (CKD-EPI) (>=60) BUN/Creatinine Ratio (12.00-20.00) Ratio Glucose (70-110) mg/dL POC Glucose (mg/dL) 250 H (70-110) mg/dL AST (14-35) U/L Total Protein (6.2-8.2) d/dL Albumin (3.8-4.9) d/dL Albumin/Globulin Ratio (1.60-3.17) Ratio Assessment and Plan Assessment: Altered mental status: Toxic-Metabolic Encephalopathy as well as due to recent Covid 19 infection. Is on High dose of Gabapentin and kidney trending up. MRI Brain is negative for acute/subacute stroke. EEG is mild to moderate encephalopathy but no seizure. Low normal finding B12 level in the high 200s low 300 Acute on chronic kidney insufficiency trending up Diabetes mellitus and his recent hemoglobin A1c is 9.4. Chronic atrial fibrillation patient presented with Mary miramontes with RVR currently on [place] Acute exacerbation of chronic congestive heart failure with ejection fraction of 30-35% Acute exacerbation of COPD COVID-19 infection and was positive close to the end of March 2023 Recent history of pneumonia secondary due to pseudomonas aeruginosa History of coronary artery disease status post CABG and stent Dyslipidemia Hyper thousand Plan: Routine EEG is abnormal. The background slowing is suggestive of mild to moderate encephalopathy likely due to toxic metabolic derangement. Otherwise there is no focal slowing, epileptiform discharges or seizure on the EEG. For low-normal of vitamin B-12 I gave the patient the one time vitamin B12 1000 g IM and continue after that by mouth Patient is on very high dose of gabapentin of 1200 mg 1 tablet 3 times a day and I recommend to lowering to 300mg 1 tab tid especially that he has acute on chronic kidney insufficeincy. Not sure why he is on super high Gabapentin especially in elderly patient. We'll defer the rest of the management to the primary and other specialists Plan was discussed with the patient nurse. Time with Patient: Less than 30
--- NOTE | 2023-05-03 14:37 | P.PN ---
Subjective Progress Note Date: 05/03/23 Principal diagnosis: Irregular heartbeat. Patient was seen and evaluated on 04/27/2023, remains in the ICU, remains on 4 L nasal cannula, remains on Cardizem drip at 10 mg per hour remains on norepinephrine at 0.0-3 mcg/kg/m, IV fluids at KVO, patient is sleeping and dressing this morning, he had episodes of anxiety yesterday. Under control, patient is maintained on Xanax. Cardiology is planning to cut down his Cardizem down to 5 mg per hour, hopefully with good taper and possibly discontinue norepinephrine today. Overall the patient is doing much better today compared to yesterday. WBC count is 6 hemoglobin is 10.8 electrolytes are normal BUN is 51 creatinine 2.08, improving compared to his admission creatinine of 2.21. Chest x-ray is showing nonspecific interstitial bilateral changes patient is known to have history of nonspecific interstitial pneumonitis. And chronic diastolic congestive heart failure Reevaluated today on 04/28/2023, patient is having more symptoms of cough wheezing shortness of breath and chest tightness. Hence I started the patient on re latively high-dose of steroids. Patient is now off Cardizem, he is off norepinephrine, continues to cough and wheeze and continues to have chest tightness his CBC is relatively normal in the class abnormal BUN is 47 creatinine 2.31, slightly worse compared to yesterday. Chest x-ray showed minimal interstitial edema and pulmonary vascular congestion patient is on diuretics, he is also on bronchodilators, and steroids were added today The patient is seen today 04/29/2023 in follow-up in the intensive care unit. He is currently sitting up in bed. Awake and alert in no acute distress. Maintaining O2 saturations in the 90s on 3 L/m per nasal cannula. He's been afebrile. Norepinephrine has been discontinued. Normal saline at KVO. Chest x-ray reveals left lower lobe infiltrate. Atypical pulmonary edema. Few curly B-lines on the right. Mild congestive heart failure. He remains in atrial fibrillation with a controlled ventricular rate. Blood cultures reveal no growth. Sputum culture revealed no growth. White count 2.5. Hemoglobin 10.0. Platelets 43,000. Sodium 128. Potassium 4.3. Bicarb 21. BUN 54. Creatinine 2.36. Glucose 316. He is continued on Symbicort, albuterol, IV Solu-Medrol. Anticoagulated with Eliquis. Antibiotics in the form of cefepime. Remains on oral diuretics. Metoprolol for rate control. Progress note dated 04/30/2023. The patient is seen today in room 467. Currently, he's in no distress. He is getting oxygen at 4 L by nasal cannula. He's getting a KVO saline IV, which I told the nurse, can be discontinued. The patient is not having any complaints, or distress. White count is 3.7, hemoglobin 9.6, hematocrit 29.3, and platelet count a 67,000. Sodium 133, potassium 4.6, chlorides 99, CO2 22, BUN 66, and creatinine 3.2. Sputum was positive for Susana. Blood cultures are negative. Chest x-ray from yesterday suggests some mild congestive heart failure. Progress note dated 05/01/2023. The patient is seen today in room 467. He seems to be doing relatively well, and is very comfortable on 3 L. He's not receiving any IV fluids. He continues on cefepime. He has no particular complaints today. White count is 4.9, hemo globin 11, hematocrit 32.8, and platelet count of 78,000. Sodium 133, potassium 4.3, chlorides 99, CO2 24, anion gap 10, BUN 84, and creatinine 3.46. Microbiology is negative other than some Susana in his sputum. Brain CT revealed no abnormality of significance. Chest x-ray showed improving features of mild CHF. Progress note dated 05/03/2023. The patient is seen today in room 376. His respiratory status has clearly declined. The patient's currently on 6 L of oxygen, with saturations between 88 and 89%. The patient's getting saline at 10 mL an hour. I ordered the patient be placed on BiPAP, at 12 and 5, and 50%. For that reason, the patient is transferred down to 3 S. floor. The patient's very lethargic, shouting out words. Doesn't seem to be making much sense. Chest x-ray shows fluid overload. White count was 5.26, hemoglobin 11.4, hematocrit 36.3, with a platelet count of 135,000. Sodium 138, potassium 5.1, chlorides 100, CO2 was 21, anion gap was 17, BUN 99, and creatinine 4.5. Sputum and blood cultures have been negative. Objective - Vital Signs Vital signs: Vital Signs Temp 97.8 F 05/03/23 13:35 Pulse 90 05/03/23 13:35 Resp 20 05/03/23 13:35 BP 126/83 05/03/23 13:35 Pulse Ox 90 L 05/03/23 07:31 FiO2 50 05/03/23 12:45 Intake & Output 05/02/23 05/03/23 05/03/23 18:59 06:59 18:59 Intake Total 200 Output Total 1 225 450 Balance 199 -225 -450 Intake: Oral 200 Output: Urine 225 450 Male - External 300 Stool 1 Other: Voiding Method External Catheter Diaper Diaper Incontinent Incontinent # Voids 1 1 # Bowel Movements 1 - Exam No acute distress, a bit lethargic and confused. Currently on 6 L of oxygen. No conversational dyspnea. No use of accessory muscles. HEENT examination is grossly unremarkable. Neck supple. Full range of motion. No adenopathy thyromegaly or neck vein distention. Cardiovascular examination reveals irregular rhythm and rate. S1-S2 normal. No S3 or S4. No discernible murmur noted. Heart rate is 90 bpm. Lungs reveal mild scattered rhonchi. No wheezes or crackles. Breath sounds are equal bilaterally. Saturations are 97 %, now on BiPAP. Abdomen soft bowel sounds are heard. No masses or tenderness. Extremities are intact. No cyanosis clubbing or edema. Ecchymosis noted to his right posterior thigh area. Skin is without rash or lesion. Neurologic examination is brief but nonfocal. - Labs CBC & Chem 7: 05/03/23 06:44 05/03/23 06:44 Labs: Abnormal Lab Results - Last 24 Hours (Table) 05/02/23 05/02/23 05/03/23 Range/Units 16:47 21:00 06:17 RBC (4.40-5.60) X 10*6/uL Hgb (12.0-15.0) d/dL Hct (39.6-50.0) % MCV (80.0-97.0) FL MCHC (32.0-37.0) d/dL RDW (11.5-14.5) % Plt Count (140-440) X 10*3/uL Lymphocytes # (0.90-5.00) X 10*3/uL Monocytes # (0.20-1.00) X 10*3/uL Eosinophils # (0.04-0.35) X 10*3/uL Carbon Dioxide (21.6-31.8) mmol/L Anion Gap (4.00-12.00) mmol/L BUN (9.0-27.0) mg/dL Creatinine (0.6-1.5) mg/dL Est GFR (CKD-EPI) (>=60) BUN/Creatinine Ratio (12.00-20.00) Ratio Glucose (70-110) mg/dL POC Glucose (mg/dL) 154 H 290 H 372 H (70-110) mg/dL AST (14-35) U/L Total Protein (6.2-8.2) d/dL Albumin (3.8-4.9) d/dL Albumin/Globulin Ratio (1.60-3.17) Ratio 05/03/23 05/03/23 05/03/23 Range/Units 06:44 06:44 10:07 RBC 3.67 L (4.40-5.60) X 10*6/uL Hgb 11.4 L (12.0-15.0) d/dL Hct 36.3 L (39.6-50.0) % MCV 98.9 H (80.0-97.0) FL MCHC 31.4 L (32.0-37.0) d/dL RDW 14.8 H (11.5-14.5) % Plt Count 135 L (140-440) X 10*3/uL Lymphocytes # 0.15 L (0.90-5.00) X 10*3/uL Monocytes # 0.11 L (0.20-1.00) X 10*3/uL Eosinophils # 0 L (0.04-0.35) X 10*3/uL Carbon Dioxide 20.8 L (21.6-31.8) mmol/L Anion Gap 17.20 H (4.00-12.00) mmol/L BUN 99.0 H (9.0-27.0) mg/dL Creatinine 4.5 H (0.6-1.5) mg/dL Est GFR (CKD-EPI) 13 L (>=60) BUN/Creatinine Ratio 22.00 H (12.00-20.00) Ratio Glucose 370 H (70-110) mg/dL POC Glucose (mg/dL) 313 H (70-110) mg/dL AST 12 L (14-35) U/L Total Protein 5.6 L (6.2-8.2) d/dL Albumin 3.0 L (3.8-4.9) d/dL Albumin/Globulin Ratio 1.15 L (1.60-3.17) Ratio 05/03/23 Range/Units 12:40 RBC (4.40-5.60) X 10*6/uL Hgb (12.0-15.0) d/dL Hct (39.6-50.0) % MCV (80.0-97.0) FL MCHC (32.0-37.0) d/dL RDW (11.5-14.5) % Plt Count (140-440) X 10*3/uL Lymphocytes # (0.90-5.00) X 10*3/uL Monocytes # (0.20-1.00) X 10*3/uL Eosinophils # (0.04-0.35) X 10*3/uL Carbon Dioxide (21.6-31.8) mmol/L Anion Gap (4.00-12.00) mmol/L BUN (9.0-27.0) mg/dL Creatinine (0.6-1.5) mg/dL Est GFR (CKD-EPI) (>=60) BUN/Creatinine Ratio (12.00-20.00) Ratio Glucose (70-110) mg/dL POC Glucose (mg/dL) 250 H (70-110) mg/dL AST (14-35) U/L Total Protein (6.2-8.2) d/dL Albumin (3.8-4.9) d/dL Albumin/Globulin Ratio (1.60-3.17) Ratio Assessment and Plan Assessment: Chronic atrial fibrillation, patient presented with atrial fibrillation with RVR. Anticoagulated with Eliquis. Acute exacerbation of chronic systolic congestive heart failure, ejection fraction 30-35% on 03/29/2023. Acute exacerbation of COPD. COVID-19 infection. Recent history of pneumonia secondary to pseudomonas aeruginosa, on cefepime. Moderate severe aortic stenosis with pulmonary hypertension. Chronic kidney disease stage III. Former smoker. History of coronary artery disease and previous CABG and stenting. Dyslipidemia. Hypothyroidism. Poor overall functional performance based on the above-mentioned multiple comorbidities. Plan: Plan dated 04/30/2023. The patient appears to be relatively stable. The patient's atrial fibrillation is under good control. The patient remains on a factor X a inhibitor. Labs, x- rays, medications are reviewed. The patient remains on cefepime. Additional recommendations and suggestions are forthcoming. The IV Solu-Medrol be discontinued. The patient will be started on prednisone 30 mg a day. Discharge planning underway. Plan dated 05/01/2023. The patient appears to be doing relatively well. He is down to 3 L of oxygen. His vital signs are stable. His labs are reviewed. The patient continues on a factor X a inhibitor. The Solu-Medrol was converted to prednisone 30 mg a day. Discharge planning underway. Labs, x-rays, and medications are all reviewed prognosis is certainly guarded. We will continue to follow the patient and make recommendations. Plan dated 05/03/2023. The patient was seen initially in room 467. His respiratory status seems to be declining, and his saturations are only 88-89% on 6 L. He was placed on BiPAP, at 12/5 and 50%. He was transferred down to the third floor. Labs, x-rays, medications are reviewed. The patient is no longer on antibiotic. We will continue to follow and make recommendations along the way. The patient's renal function continues to decline. Labs, have been reviewed. Prognosis is guarded and CODE STATUS should be addressed by the primary service. Time with Patient: Less than 30
[2023-05-03 16:25] LABS: Glucose,Whole Blood 190 mg/dL (70-110)
--- NOTE | 2023-05-03 16:37 | P.PN ---
Subjective Progress Note Date: 05/03/23 Principal diagnosis: Pneumonia Patient is a 77-year male with multiple comorbidities including COPD diastolic heart failure was recently diagnosed with Pseudomonas pneumonia, patient was subsequently diagnosed with a Covid 19 on 04/23/2023 at the local alf has been brought into the hospital for shortness of breath A. fib with RVR and did have hypotension on today's evaluation that is 05/03/2023, Pt did have Worsening of his respiratory status and has been started on the BiPAP patient is currently lethargic and not a very good historian no vomiting or diarrhea has been reported Objective - Vital Signs Vital signs: Vital Signs Temp 97.4 F L 05/03/23 07:31 Pulse 84 05/03/23 07:31 Resp 21 05/03/23 07:31 BP 111/65 05/03/23 07:31 Pulse Ox 90 L 05/03/23 07:31 FiO2 50 05/03/23 10:05 Intake & Output 05/02/23 05/03/23 05/03/23 18:59 06:59 18:59 Intake Total 200 Output Total 1 225 450 Balance 199 -225 -450 Intake: Oral 200 Output: Urine 225 450 Male - External 300 Stool 1 Other: Voiding Method External Catheter Diaper Incontinent # Voids 1 1 # Bowel Movements 1 - Exam Elderly male lying in bed in mild distress currently on the BiPAP Coarse breath sounds bilaterally Completed with the help of COMPLEX CARE NURSE - Labs CBC & Chem 7: 05/03/23 06:44 05/03/23 06:44 Labs: Abnormal Lab Results - Last 24 Hours (Table) 05/02/23 05/02/23 05/02/23 Range/Units 08:06 16:47 21:00 RBC (4.40-5.60) X 10*6/uL Hgb (12.0-15.0) d/dL Hct (39.6-50.0) % MCV (80.0-97.0) FL MCHC (32.0-37.0) d/dL RDW (11.5-14.5) % Plt Count (140-440) X 10*3/uL Lymphocytes # (0.90-5.00) X 10*3/uL Monocytes # (0.20-1.00) X 10*3/uL Eosinophils # (0.04-0.35) X 10*3/uL Sodium 136 L (137-145) mmol/L Carbon Dioxide (21.6-31.8) mmol/L Anion Gap (4.00-12.00) mmol/L BUN 95 H (9-20) mg/dL Creatinine 3.83 H (0.66-1.25) mg/dL Est GFR (CKD-EPI) (>=60) BUN/Creatinine Ratio (12.00-20.00) Ratio Glucose 125 H (74-99) mg/dL POC Glucose (mg/dL) 154 H 290 H (70-110) mg/dL AST (14-35) U/L Total Protein (6.2-8.2) d/dL Albumin (3.8-4.9) d/dL Albumin/Globulin Ratio (1.60-3.17) Ratio 05/03/23 05/03/23 05/03/23 Range/Units 06:17 06:44 06:44 RBC 3.67 L (4.40-5.60) X 10*6/uL Hgb 11.4 L (12.0-15.0) d/dL Hct 36.3 L (39.6-50.0) % MCV 98.9 H (80.0-97.0) FL MCHC 31.4 L (32.0-37.0) d/dL RDW 14.8 H (11.5-14.5) % Plt Count 135 L (140-440) X 10*3/uL Lymphocytes # 0.15 L (0.90-5.00) X 10*3/uL Monocytes # 0.11 L (0.20-1.00) X 10*3/uL Eosinophils # 0 L (0.04-0.35) X 10*3/uL Sodium (137-145) mmol/L Carbon Dioxide 20.8 L (21.6-31.8) mmol/L Anion Gap 17.20 H (4.00-12.00) mmol/L BUN 99.0 H (9-20) mg/dL Creatinine 4.5 H (0.66-1.25) mg/dL Est GFR (CKD-EPI) 13 L (>=60) BUN/Creatinine Ratio 22.00 H (12.00-20.00) Ratio Glucose 370 H (74-99) mg/dL POC Glucose (mg/dL) 372 H (70-110) mg/dL AST 12 L (14-35) U/L Total Protein 5.6 L (6.2-8.2) d/dL Albumin 3.0 L (3.8-4.9) d/dL Albumin/Globulin Ratio 1.15 L (1.60-3.17) Ratio 05/03/23 Range/Units 10:07 RBC (4.40-5.60) X 10*6/uL Hgb (12.0-15.0) d/dL Hct (39.6-50.0) % MCV (80.0-97.0) FL MCHC (32.0-37.0) d/dL RDW (11.5-14.5) % Plt Count (140-440) X 10*3/uL Lymphocytes # (0.90-5.00) X 10*3/uL Monocytes # (0.20-1.00) X 10*3/uL Eosinophils # (0.04-0.35) X 10*3/uL Sodium (137-145) mmol/L Carbon Dioxide (21.6-31.8) mmol/L Anion Gap (4.00-12.00) mmol/L BUN (9-20) mg/dL Creatinine (0.66-1.25) mg/dL Est GFR (CKD-EPI) (>=60) BUN/Creatinine Ratio (12.00-20.00) Ratio Glucose (74-99) mg/dL POC Glucose (mg/dL) 313 H (70-110) mg/dL AST (14-35) U/L Total Protein (6.2-8.2) d/dL Albumin (3.8-4.9) d/dL Albumin/Globulin Ratio (1.60-3.17) Ratio Assessment and Plan (1) COVID-19 Current Visit: Yes Status: Acute Code(s): U07.1 - COVID-19 SNOMED Code(s): 423977734 (2) Pneumonia Current Visit: Yes Status: Acute Code(s): J18.9 - PNEUMONIA, UNSPECIFIED ORGANISM SNOMED Code(s): 133851926 Plan: 1patient was in the hospital with increasing shortness of breath which is likely multifactorial possibly related to underlying worsening of diastolic heart failure from A-fib with RVR clinically doubt any worsening pneumonia the patient did have positive COVID 19 and may be of possibly contributing however chest x-ray was negative for any pneumonia patient not running any fever did have a normal white count with mild lymphopenia. Continue the current supportive treatment 2-Patient has received adequate antibiotics for underlying pseudomonas pneumonia , with repeat sputum showing Susana more likely colonizer could be attributed to underlying fluid overload as the patient did have a worsening of his kidney function, with worsening we will go ahead and discontinue cefepime and monitor the places patient closely off antibiotic therapy Time with Patient: Less than 30
[2023-05-03] MEDS: GABAPENTIN 400 MG CAP PO SCH (16:53)
[2023-05-03] MEDS: GABAPENTIN 300 MG CAP PO SCH ×2 (17:53→20:54)
[2023-05-03] MEDS: LORazepam 2 MG/ML INJ IV PRN (18:14)
[2023-05-03 20:10] LABS: Glucose,Whole Blood 119 mg/dL (70-110)
[2023-05-03] MEDS: FUROSEMIDE 10 MG/ML 10 ML VIAL IV SCH (20:49)
[2023-05-03] MEDS: ATORVASTATIN 40 MG TAB PO SCH (20:54)
[2023-05-03] MEDS: SYMBICORT 160-4.5 MCG INHALER INHALATION SCH (21:50)
[2023-05-04 02:27] LABS: Glucose,Whole Blood 76 mg/dL (70-110)
[2023-05-04 04:09] LABS: Basophils % (A) 0 %; Eosinophils % (A) 0 %; Hypochromasia Slight; Lymphocytes # (A) 0.2 k/uL (1.0-4.8); Lymphocytes % (A) 2 %; MCHC 32.5 g/dL (31.0-37.0); MCV 98.3 fL (80.0-100.0); Mean Platelet Volume 8.1; Monocytes # (A) 0.4 k/uL (0-1.0); Monocytes % (A) 3 %; Neutrophils # (A) 9.8 k/uL (1.3-7.7); Neutrophils % (A) 94 %; Poikilocytosis Slight; RBC 3.76 m/uL (4.30-5.90); RDW 14.8 % (11.5-15.5); WBC 10.4 k/uL (3.8-10.6)
[2023-05-04 04:13] LABS: Platelet Count 177 k/uL (150-450)
[2023-05-04 04:38] LABS: ALT 19 U/L (4-49); AST 14 U/L (17-59); African American GFR (CKD) 12 (>60 ml/min/1.73 sqM); Albumin 2.9 g/dL (3.5-5.0); Alkaline Phosphatase 64 U/L (38-126); Anion Gap 11 mmol/L; Calcium 8.4 mg/dL (8.4-10.2); Carbon Dioxide 26 mmol/L (22-30); Chloride 102 mmol/L (98-107); Glucose 110 mg/dL (74-99); Non-African American GFR(CKD) 10 (>60 ml/min/1.73 sqM); Potassium 4.5 mmol/L (3.5-5.1); Sodium 139 mmol/L (137-145); Total Bilirubin 0.7 mg/dL (0.2-1.3); Total Protein 5.6 g/dL (6.3-8.2)
[2023-05-04 05:05] LABS: Blood Urea Nitrogen 119 mg/dL (9-20)
[2023-05-04 06:00] LABS: Glucose,Whole Blood 100 mg/dL (70-110)
[2023-05-04] MEDS: INSULIN ASPART (NovoLOG) 100 UNIT/ML VIAL SQ SCH ×7 (06:07→20:58)
[2023-05-04] MEDS: INSULIN DETEMIR (LEVEMIR) 100 UNIT/ML SYR SQ SCH ×2 (06:07→20:58)
[2023-05-04] MEDS: MIDODRINE 5 MG TAB PO SCH ×3 (06:07→16:27)
[2023-05-04] MEDS: PANTOPRAZOLE 40 MG TABLET PO SCH (06:07)
[2023-05-04] MEDS: methylPREDNISolone SOD SUCCI 40 MG/ML 1 ML VIAL IV SCH ×4 (06:25→23:29)
[2023-05-04] MEDS: FUROSEMIDE 10 MG/ML 10 ML VIAL IV SCH ×2 (08:03→21:00)
[2023-05-04] MEDS: SYMBICORT 160-4.5 MCG INHALER INHALATION SCH ×2 (08:50→21:05)
[2023-05-04] MEDS: ALBUTEROL HFA INHALER INHALATION SCH ×4 (08:50→21:05)
[2023-05-04] MEDS: LORazepam 2 MG/ML INJ IV PRN ×3 (09:01→23:29)
[2023-05-04] MEDS: LEVOTHYROXINE 112 MCG TAB PO SCH (10:08)
[2023-05-04] MEDS: APIXABAN 2.5 MG TABLET PO SCH (10:08)
[2023-05-04] MEDS: LEVOTHYROXINE 125 MCG TAB PO SCH (10:09)
[2023-05-04] MEDS: NYSTATIN 100,000 UNIT/ML SUSP 500,000 UNIT/5 ML CUP PO SCH ×4 (10:09→23:06)
[2023-05-04] MEDS: CHOLECALCIFEROL 25 MCG (1000 IU) TABLET PO SCH (10:09)
[2023-05-04] MEDS: CYANOCOBALAMIN 500 MCG TAB PO SCH (10:09)
[2023-05-04] MEDS: ASCORBIC ACID 500 MG TAB PO SCH (10:09)
[2023-05-04] MEDS: ZINC SULFATE 220 MG CAP PO SCH (10:09)
[2023-05-04] MEDS: METOPROLOL SUCCINATE (ER) 50 MG TAB.ER.24H PO SCH (10:09)
--- NOTE | 2023-05-04 10:31 | P.PN ---
Subjective Patient is seen in follow-up for acute kidney injury on chronic kidney disease. Renal function worsening. Currently on BiPAP. Confused. Vital signs are stable. General: Confused. HEENT: On BiPAP. LUNGS: Scattered rhonchi. HEART: Rate and Rhythm are regular. ABDOMEN: No distention. EXTREMITITES: No edema. Objective - Vital Signs Vital signs: Vital Signs Temp 96.7 F L 05/04/23 07:41 Pulse 76 05/04/23 07:41 Resp 12 05/04/23 07:41 BP 149/79 05/04/23 07:41 Pulse Ox 98 05/04/23 07:41 FiO2 40 05/04/23 08:50 Intake & Output 05/03/23 05/04/23 05/04/23 18:59 06:59 18:59 Intake Total 0 Output Total 450 780 125 Balance -450 -780 -125 Weight 105 kg 81 kg Intake: Oral 0 Output: Urine 450 780 125 Male - External 300 Other: Voiding Method Diaper Indwelling Catheter Incontinent - Labs CBC & Chem 7: 05/04/23 03:43 05/04/23 03:43 Labs: Abnormal Lab Results - Last 24 Hours (Table) 05/03/23 05/03/23 05/03/23 Range/Units 06:44 06:44 12:40 RBC 3.67 L (4.40-5.60) X 10*6/uL Hgb 11.4 L (12.0-15.0) d/dL Hct 36.3 L (39.6-50.0) % MCV 98.9 H (80.0-97.0) FL MCHC 31.4 L (32.0-37.0) d/dL RDW 14.8 H (11.5-14.5) % Plt Count 135 L (140-440) X 10*3/uL Neutrophils # (1.3-7.7) k/uL Lymphocytes # 0.15 L (0.90-5.00) X 10*3/uL Monocytes # 0.11 L (0.20-1.00) X 10*3/uL Eosinophils # 0 L (0.04-0.35) X 10*3/uL Carbon Dioxide 20.8 L (21.6-31.8) mmol/L Anion Gap 17.20 H (4.00-12.00) mmol/L BUN 99.0 H (9.0-27.0) mg/dL Creatinine 4.5 H (0.6-1.5) mg/dL Est GFR (CKD-EPI) 13 L (>=60) BUN/Creatinine Ratio 22.00 H (12.00-20.00) Ratio Glucose 370 H (70-110) mg/dL POC Glucose (mg/dL) 250 H (70-110) mg/dL AST 12 L (14-35) U/L Total Protein 5.6 L (6.2-8.2) d/dL Albumin 3.0 L (3.8-4.9) d/dL Albumin/Globulin Ratio 1.15 L (1.60-3.17) Ratio 05/03/23 05/03/23 05/04/23 Range/Units 16:24 20:08 03:43 RBC 3.76 L (4.40-5.60) X 10*6/uL Hgb 12.0 L (12.0-15.0) d/dL Hct 37.0 L (39.6-50.0) % MCV (80.0-97.0) FL MCHC (32.0-37.0) d/dL RDW (11.5-14.5) % Plt Count (140-440) X 10*3/uL Neutrophils # 9.8 H (1.3-7.7) k/uL Lymphocytes # 0.2 L (0.90-5.00) X 10*3/uL Monocytes # (0.20-1.00) X 10*3/uL Eosinophils # (0.04-0.35) X 10*3/uL Carbon Dioxide (21.6-31.8) mmol/L Anion Gap (4.00-12.00) mmol/L BUN (9.0-27.0) mg/dL Creatinine (0.6-1.5) mg/dL Est GFR (CKD-EPI) (>=60) BUN/Creatinine Ratio (12.00-20.00) Ratio Glucose (70-110) mg/dL POC Glucose (mg/dL) 190 H 119 H (70-110) mg/dL AST (14-35) U/L Total Protein (6.2-8.2) d/dL Albumin (3.8-4.9) d/dL Albumin/Globulin Ratio (1.60-3.17) Ratio 05/04/23 Range/Units 03:43 RBC (4.40-5.60) X 10*6/uL Hgb (12.0-15.0) d/dL Hct (39.6-50.0) % MCV (80.0-97.0) FL MCHC (32.0-37.0) d/dL RDW (11.5-14.5) % Plt Count (140-440) X 10*3/uL Neutrophils # (1.3-7.7) k/uL Lymphocytes # (0.90-5.00) X 10*3/uL Monocytes # (0.20-1.00) X 10*3/uL Eosinophils # (0.04-0.35) X 10*3/uL Carbon Dioxide (21.6-31.8) mmol/L Anion Gap (4.00-12.00) mmol/L BUN 119 H* (9.0-27.0) mg/dL Creatinine 4.96 H (0.6-1.5) mg/dL Est GFR (CKD-EPI) (>=60) BUN/Creatinine Ratio (12.00-20.00) Ratio Glucose 110 H (70-110) mg/dL POC Glucose (mg/dL) (70-110) mg/dL AST 14 L (14-35) U/L Total Protein 5.6 L (6.2-8.2) d/dL Albumin 2.9 L (3.8-4.9) d/dL Albumin/Globulin Ratio (1.60-3.17) Ratio Assessment and Plan Plan: Assessment: 1. Acute kidney injury secondary to hemodynamic ATN and cardiorenal syndrome. Renal function worsening. Creatinine 4.96. 2. Chronic kidney disease stage IIIB with baseline creatinine 1.3-1.5 secondary to diabetic kidney disease. 3. Acute on chronic systolic CHF with ejection fraction of 30-35% with moderate tricuspid regurgitation. 4. Pneumonia maintained on antibiotics. Also tested positive for Covid m aiilianaain on 04/19/2023. 5. Volume overload. 6. Acute hypoxic respiratory failure. 7. Hypervolemic hyponatremia. Improved. 8. Diabetes mellitus. 9. A. fib with RVR maintained on anticoagulation and metoprolol. Cardiology following. 10. Hypertension with chronic kidney disease. Stable. Plan: Due to worsening renal function, fluid overload and concern for uremia, initiate renal replacement therapy. Consult vascular surgery for dialysis catheter placement. Plan for first treatment of hemodialysis today and second treatment tomorrow. Check phosphorus level. Monitor for renal recovery. Maintain IV Lasix. Repeat CXR tomorrow. Wean FiO2.
--- NOTE | 2023-05-04 11:36 | P.GSCN ---
History of Present Illness History of present illness: 77-year-old old white female history of acute chronic renal failure patient is on BiPAP and also history of pneumonia and A. fib history of diabetes consulted for placement of urgent dialysis catheter Neck is supple patient is on BiPAP Chest has a crackles bilateral Abdomen is soft nontender Vascular femorals are deep 1+ Been treated and is high Plan is placement of urgent dialysis catheter risk and complication discussed Past Medical History Past Medical History: Atrial Fibrillation, Coronary Artery Disease (CAD), Heart Failure, COPD, CVA/TIA, Diabetes Mellitus, Hypertension, Myocardial Infarction ([place]) Additional Past Medical History / Comment(s): left knee cap broken, pancreatitis, /gallstones, Patient reports having stroke like symptoms after injection in knee, Last Myocardial Infarction Date:: 2017 History of Any Multi-Drug Resistant Organisms: MRSA Year Discovered:: 10/01/22 MDRO Source:: Sputum Past Surgical History: Cholecystectomy, Coronary Bypass/CABG, Heart Catheterization With Stent, Hernia Repair, Orthopedic Surgery Additional Past Surgical History / Comment(s): lt knee replacement(total of 4 sx), colonoscopy, Left knee cap removal with antibiotic spacers placed, Past Anesthesia/Blood Transfusion Reactions: No Reported Reaction Date of Last Stent Placement:: 10/2015 Past Psychological History: No Psychological Hx Reported Additional Psychological History / Comment(s): Pt resides with his spouse. He uses a walker to ambulate. Smoking Status: Former smoker Past Alcohol Use History: Occasional Additional Past Alcohol Use History / Comment(s): Pt started smoking as teen and quit 1983 smoked 2 ppd. Pt usually has one drink a night. Past Drug Use History: None Reported - Past Family History Father Family Medical History: Diabetes Mellitus Mother Family Medical History: CVA/TIA, Hypertension Medications and Allergies Home Medications Medication Instructions Recorded Confirmed Type allopurinoL [Zyloprim] 300 mg PO DAILY@0800 08/07/17 04/25/23 History Gabapentin 1,200 mg PO TID@1400,1800,2200 10/02/18 04/25/23 History Levothyroxine Sodium [Synthroid] 112 mcg PO DAILY@0800 10/02/18 04/25/23 History Levothyroxine Sodium [Synthroid] 125 mcg PO DAILY@0800 10/02/18 04/25/23 History Nitroglycerin Sl Tabs [Nitrostat] 0.4 mg SL Q5M PRN 10/02/18 04/25/23 History Atorvastatin [Lipitor] 40 mg PO HS@199910/19/21 04/25/23 History Apixaban [Eliquis] 5 mg PO BID@0800,1700 09/28/22 04/25/23 History Budesonide/Formoterol Fumarate 2 puff INHALATION RT-BID@0800,1700 09/28/22 04/25/23 History [Symbicort 80-4.5 Mcg Inhaler] HYDROcodone/APAP 7.5-325MG [Lorenzo 1 tab PO BID PRN 09/28/22 04/25/23 History 7.5-325] Magnesium Oxide [Mag-Ox] 400 mg PO BID@0800,1700 09/28/22 04/25/23 History Meclizine [Antivert] 12.5 mg PO TID@0700,1200,1700 09/28/22 04/25/23 History Albuterol Sulfate [Proventil Hfa] 1 puff INHALATION RT-Q8H PRN 11/22/22 04/25/23 History Omeprazole 20 mg PO DAILY@0800 11/22/22 04/25/23 History Glimepiride [Amaryl] 2 mg PO BID@0800,1700 03/29/23 04/25/23 History Aspirin 81 mg PO DAILY@0730 04/25/23 04/25/23 History Cefepime [Maxipime] 2 gm IVPB BID@0900,2100 04/25/23 04/25/23 History Dapagliflozin Propanediol [Farxiga] 10 mg PO DAILY@0800 04/25/23 04/25/23 History Furosemide [Lasix] 40 mg PO BID@0700,1300 04/25/23 04/25/23 History Insulin Glargine-Yfgn [Semglee 40 units SQ DAILY@0800 04/25/23 04/25/23 History (Yfgn) Pen] Insulin Lispro See Protocol SQ QID@07,12,17,21 04/25/23 04/25/23 History Ipratropium-Albuterol Nebulize 3 ml INHALATION RT-Q2H PRN 04/25/23 04/25/23 History [Duoneb 0.5 mg-3 mg/3 ml Soln] Ipratropium-Albuterol Nebulize 3 ml INHALATION RT-QID@07,12,17,21 04/25/23 04/25/23 History [Duoneb 0.5 mg-3 mg/3 ml Soln] Metoprolol Succinate (ER) [Toprol 50 mg PO DAILY@0800 04/25/23 04/25/23 History XL] Molnupiravir [Molnupiravir (Eua)] 800 mg PO BID@0700,1900 04/25/23 04/25/23 History Nystatin 100,000 Unit/ml Susp 500,000 unit PO QID@07,12,17,22 04/25/23 04/25/23 History [Mycostatin Oral Susp] Potassium Chloride ER [K-Dur 20] 20 meq PO BID@0800,1700 04/25/23 04/25/23 History Allergies Allergy/AdvReac Type Severity Reaction Status Date / Time Sulfa (Sulfonamide Allergy Mild Rash/Hives Verified 04/25/23 16:17 Antibiotics) cephalexin [From Keflex] Allergy Unknown Verified 04/25/23 16:17 clopidogrel [From Plavix] Allergy Rash/Hives Verified 04/25/23 16:17 codeine Allergy Rash/Nausea Verified 04/25/23 16:17 & Vomiting Iodine and Iodide Containing Allergy Rash/Hives Verified 04/25/23 16:17 Produc levofloxacin [From Levaquin] Allergy urticaria/r Verified 04/25/23 16:17 belle shellfish derived [Shellfish] Allergy urticaria/r Verified 04/25/23 16:17 belle lisinopril AdvReac Angiodema Verified 04/25/23 16:17 of tongue oxycodone AdvReac Hallucinati Verified 04/25/23 16:17 ons solifenacin AdvReac Nausea & Verified 04/25/23 16:17 Vomiting Surgical - Exam Vital Signs Temp Pulse Resp BP Pulse Ox 98.2 F 47 L 20 102/86 99 04/25/23 15:30 04/25/23 15:30 04/25/23 15:30 04/25/23 15:30 04/25/23 15:30 Results - Labs 05/04/23 03:43 05/04/23 03:43 Abnormal Lab Results - Last 24 Hours (Table) 05/03/23 05/03/23 05/03/23 Range/Units 12:40 16:24 20:08 RBC (4.30-5.90) m/uL Hgb (13.0-17.5) gm/dL Hct (39.0-53.0) % Neutrophils # (1.3-7.7) k/uL Lymphocytes # (1.0-4.8) k/uL BUN (9-20) mg/dL Creatinine (0.66-1.25) mg/dL Glucose (74-99) mg/dL POC Glucose (mg/dL) 250 H 190 H 119 H (70-110) mg/dL AST (17-59) U/L Total Protein (6.3-8.2) g/dL Albumin (3.5-5.0) g/dL 05/04/23 05/04/23 Range/Units 03:43 03:43 RBC 3.76 L (4.30-5.90) m/uL Hgb 12.0 L (13.0-17.5) gm/dL Hct 37.0 L (39.0-53.0) % Neutrophils # 9.8 H (1.3-7.7) k/uL Lymphocytes # 0.2 L (1.0-4.8) k/uL BUN 119 H* (9-20) mg/dL Creatinine 4.96 H (0.66-1.25) mg/dL Glucose 110 H (74-99) mg/dL POC Glucose (mg/dL) (70-110) mg/dL AST 14 L (17-59) U/L Total Protein 5.6 L (6.3-8.2) g/dL Albumin 2.9 L (3.5-5.0) g/dL Diabetes panel 05/04/23 Range/Units 03:43 Sodium 139 (137-145) mmol/L Potassium 4.5 (3.5-5.1) mmol/L Chloride 102 (98-107) mmol/L Carbon Dioxide 26 (22-30) mmol/L BUN 119 H* (9-20) mg/dL Creatinine 4.96 H (0.66-1.25) mg/dL Glucose 110 H (74-99) mg/dL Calcium 8.4 (8.4-10.2) mg/dL AST 14 L (17-59) U/L ALT 19 (4-49) U/L Alkaline Phosphatase 64 (38-126) U/L Total Protein 5.6 L (6.3-8.2) g/dL Albumin 2.9 L (3.5-5.0) g/dL Calcium panel 05/04/23 Range/Units 03:43 Calcium 8.4 (8.4-10.2) mg/dL Albumin 2.9 L (3.5-5.0) g/dL Pituitary panel 05/04/23 Range/Units 03:43 Sodium 139 (137-145) mmol/L Potassium 4.5 (3.5-5.1) mmol/L Chloride 102 (98-107) mmol/L Carbon Dioxide 26 (22-30) mmol/L BUN 119 H* (9-20) mg/dL Creatinine 4.96 H (0.66-1.25) mg/dL Glucose 110 H (74-99) mg/dL Calcium 8.4 (8.4-10.2) mg/dL Adrenal panel 05/04/23 Range/Units 03:43 Sodium 139 (137-145) mmol/L Potassium 4.5 (3.5-5.1) mmol/L Chloride 102 (98-107) mmol/L Carbon Dioxide 26 (22-30) mmol/L BUN 119 H* (9-20) mg/dL Creatinine 4.96 H (0.66-1.25) mg/dL Glucose 110 H (74-99) mg/dL Calcium 8.4 (8.4-10.2) mg/dL Total Bilirubin 0.7 (0.2-1.3) mg/dL AST 14 L (17-59) U/L ALT 19 (4-49) U/L Alkaline Phosphatase 64 (38-126) U/L Total Protein 5.6 L (6.3-8.2) g/dL Albumin 2.9 L (3.5-5.0) g/dL
[2023-05-04] MEDS ORDERED: LIDOCAINE 1% INJ 10MG/ML (20 ML MDV) SQ ONE (11:46)
[2023-05-04] MEDS ORDERED: HEPARIN SODIUM 1,000 UN/ML (10ML VL) IVP ONE (11:57)
--- NOTE | 2023-05-04 12:02 | P.PCN ---
Description of Procedure: Preoperative diagnoses is acute chronic renal failure respiratory failure Postop same Procedure ultrasound-guided 20 same dialysis catheter right femoral approach patient brought to the [facility] patient BiPAP right groin were prepped and draped for pressure manner 1% lidocaine plain infiltrated right groin area. Ultrasound-guided micropuncture introduced right femoral vein macro puncture guidewire passed. After that we passed a regular guidewire without any resistance dilator advanced on the top the guidewire then we placed 30 same dialysis catheter flushed with heparin saline and Hep-Lock secured with 3 nylon dressing applied patient tolerated the procedure well and transferred to the room his sexual condition thank you
--- NOTE | 2023-05-04 12:04 | P.PN ---
Subjective Progress Note Date: 05/04/23 Principal diagnosis: Irregular heartbeat. Patient was seen and evaluated on 04/27/2023, remains in the ICU, remains on 4 L nasal cannula, remains on Cardizem drip at 10 mg per hour remains on norepinephrine at 0.0-3 mcg/kg/m, IV fluids at KVO, patient is sleeping and dressing this morning, he had episodes of anxiety yesterday. Under control, patient is maintained on Xanax. Cardiology is planning to cut down his Cardizem down to 5 mg per hour, hopefully with good taper and possibly discontinue norepinephrine today. Overall the patient is doing much better today compared to yesterday. WBC count is 6 hemoglobin is 10.8 electrolytes are normal BUN is 51 creatinine 2.08, improving compared to his admission creatinine of 2.21. Chest x-ray is showing nonspecific interstitial bilateral changes patient is known to have history of nonspecific interstitial pneumonitis. And chronic diastolic congestive heart failure Reevaluated today on 04/28/2023, patient is having more symptoms of cough wheezing shortness of breath and chest tightness. Hence I started the patient on re latively high-dose of steroids. Patient is now off Cardizem, he is off norepinephrine, continues to cough and wheeze and continues to have chest tightness his CBC is relatively normal in the class abnormal BUN is 47 creatinine 2.31, slightly worse compared to yesterday. Chest x-ray showed minimal interstitial edema and pulmonary vascular congestion patient is on diuretics, he is also on bronchodilators, and steroids were added today The patient is seen today 04/29/2023 in follow-up in the intensive care unit. He is currently sitting up in bed. Awake and alert in no acute distress. Maintaining O2 saturations in the 90s on 3 L/m per nasal cannula. He's been afebrile. Norepinephrine has been discontinued. Normal saline at KVO. Chest x-ray reveals left lower lobe infiltrate. Atypical pulmonary edema. Few curly B-lines on the right. Mild congestive heart failure. He remains in atrial fibrillation with a controlled ventricular rate. Blood cultures reveal no growth. Sputum culture revealed no growth. White count 2.5. Hemoglobin 10.0. Platelets 43,000. Sodium 128. Potassium 4.3. Bicarb 21. BUN 54. Creatinine 2.36. Glucose 316. He is continued on Symbicort, albuterol, IV Solu-Medrol. Anticoagulated with Eliquis. Antibiotics in the form of cefepime. Remains on oral diuretics. Metoprolol for rate control. Progress note dated 04/30/2023. The patient is seen today in room 467. Currently, he's in no distress. He is getting oxygen at 4 L by nasal cannula. He's getting a KVO saline IV, which I told the nurse, can be discontinued. The patient is not having any complaints, or distress. White count is 3.7, hemoglobin 9.6, hematocrit 29.3, and platelet count a 67,000. Sodium 133, potassium 4.6, chlorides 99, CO2 22, BUN 66, and creatinine 3.2. Sputum was positive for Susana. Blood cultures are negative. Chest x-ray from yesterday suggests some mild congestive heart failure. Progress note dated 05/01/2023. The patient is seen today in room 467. He seems to be doing relatively well, and is very comfortable on 3 L. He's not receiving any IV fluids. He continues on cefepime. He has no particular complaints today. White count is 4.9, hemo globin 11, hematocrit 32.8, and platelet count of 78,000. Sodium 133, potassium 4.3, chlorides 99, CO2 24, anion gap 10, BUN 84, and creatinine 3.46. Microbiology is negative other than some Susana in his sputum. Brain CT revealed no abnormality of significance. Chest x-ray showed improving features of mild CHF. Progress note dated 05/03/2023. The patient is seen today in room 376. His respiratory status has clearly declined. The patient's currently on 6 L of oxygen, with saturations between 88 and 89%. The patient's getting saline at 10 mL an hour. I ordered the patient be placed on BiPAP, at 12 and 5, and 50%. For that reason, the patient is transferred down to 3 S. floor. The patient's very lethargic, shouting out words. Doesn't seem to be making much sense. Chest x-ray shows fluid overload. White count was 5.26, hemoglobin 11.4, hematocrit 36.3, with a platelet count of 135,000. Sodium 138, potassium 5.1, chlorides 100, CO2 was 21, anion gap was 17, BUN 99, and creatinine 4.5. Sputum and blood cultures have been negative. Progress note dated 05/04/2023. The patient is seen today in room 376. He was moved down to the third floor, because we recommended BiPAP therapy. Currently, his BiPAP settings are 12 and 5 and 40%. We have ordered a portable chest x-ray. The patient will have a temporary hemodialysis catheter placed, and he'll have hemodialysis today. White count is 10.4, hemoglobin 12, hematocrit 37, and platelet count 177,000. Sodium 139, potassium 4.5, chlorides 102, CO2 26, anion gap 11, BUN 119, and creatinine 4.96. Glucose 110. Albumin is 2.9. Objective - Vital Signs Vital signs: Vital Signs Temp 96.7 F L 05/04/23 07:41 Pulse 76 05/04/23 07:41 Resp 12 05/04/23 07:41 BP 149/79 05/04/23 07:41 Pulse Ox 98 05/04/23 07:41 FiO2 40 05/04/23 11:20 Intake & Output 05/03/23 05/04/23 05/04/23 18:59 06:59 18:59 Intake Total 0 Output Total 450 780 325 Balance -450 -780 -325 Weight 105 kg 81 kg Intake: Oral 0 Output: Urine 450 780 325 Male - External 300 Other: Voiding Method Diaper Indwelling Catheter Indwelling Catheter Incontinent - Exam No acute distress, a bit lethargic and confused. Currently on BiPAP. No conversational dyspnea. No use of accessory muscles. HEENT examination is grossly unremarkable. Neck supple. Full range of motion. No adenopathy thyromegaly or neck vein distention. Cardiovascular examination reveals irregular rhythm and rate. S1-S2 normal. No S3 or S4. No discernible murmur noted. Heart rate is 76 bpm. Lungs reveal mild scattered rhonchi. No wheezes or crackles. Breath sounds are equal bilaterally. Saturations are 98 %, now on BiPAP. Abdomen soft bowel sounds are heard. No masses or tenderness. Extremities are intact. No cyanosis clubbing or edema. Ecchymosis noted to his right posterior thigh area. Skin is without rash or lesion. Neurologic examination is brief but nonfocal. - Labs CBC & Chem 7: 05/04/23 03:43 07/08/23 03:43 Labs: Abnormal Lab Results - Last 24 Hours (Table) 05/03/23 05/03/23 05/03/23 Range/Units 12:40 16:24 20:08 RBC (4.30-5.90) m/uL Hgb (13.0-17.5) gm/dL Hct (39.0-53.0) % Neutrophils # (1.3-7.7) k/uL Lymphocytes # (1.0-4.8) k/uL BUN (9-20) mg/dL Creatinine (0.66-1.25) mg/dL Glucose (74-99) mg/dL POC Glucose (mg/dL) 250 H 190 H 119 H (70-110) mg/dL AST (17-59) U/L Total Protein (6.3-8.2) g/dL Albumin (3.5-5.0) g/dL 05/04/23 05/04/23 Range/Units 03:43 03:43 RBC 3.76 L (4.30-5.90) m/uL Hgb 12.0 L (13.0-17.5) gm/dL Hct 37.0 L (39.0-53.0) % Neutrophils # 9.8 H (1.3-7.7) k/uL Lymphocytes # 0.2 L (1.0-4.8) k/uL BUN 119 H* (9-20) mg/dL Creatinine 4.96 H (0.66-1.25) mg/dL Glucose 110 H (74-99) mg/dL POC Glucose (mg/dL) (70-110) mg/dL AST 14 L (17-59) U/L Total Protein 5.6 L (6.3-8.2) g/dL Albumin 2.9 L (3.5-5.0) g/dL Assessment and Plan Assessment: Chronic atrial fibrillation, patient presented with atrial fibrillation with RVR. Anticoagulated with Eliquis. Acute exacerbation of chronic systolic congestive heart failure, ejection fraction 30-35% on 03/29/2023. Acute exacerbation of COPD. COVID-19 infection. Recent history of pneumonia secondary to pseudomonas aeruginosa, on cefepime. Moderate severe aortic stenosis with pulmonary hypertension. Chronic kidney disease stage III, with worsening renal function, requiring hemodialysis. Former smoker. History of coronary artery disease and previous CABG and stenting. Dyslipidemia. Hypothyroidism. Poor overall functional performance based on the above-mentioned multiple comorbidities. Plan: Plan dated 04/30/2023. The patient appears to be relatively stable. The patient's atrial fibrillation is under good control. The patient remains on a factor X a inhibitor. Labs, x- rays, medications are reviewed. The patient remains on cefepime. Additional recommendations and suggestions are forthcoming. The IV Solu-Medrol be discontinued. The patient will be started on prednisone 30 mg a day. Discharge planning underway. Plan dated 05/01/2023. The patient appears to be doing relatively well. He is down to 3 L of oxygen. His vital signs are stable. His labs are reviewed. The patient continues on a factor X a inhibitor. The Solu-Medrol was converted to prednisone 30 mg a day. Discharge planning underway. Labs, x-rays, and medications are all reviewed prognosis is certainly guarded. We will continue to follow the patient and make recommendations. Plan dated 05/03/2023. The patient was seen initially in room 467. His respiratory status seems to be declining, and his saturations are only 88-89% on 6 L. He was placed on BiPAP, at 12/5 and 50%. He was transferred down to the third floor. Labs, x-rays, medications are reviewed. The patient is no longer on antibiotic. We will continue to follow and make recommendations along the way. The patient's renal function continues to decline. Labs, have been reviewed. Prognosis is guarded and CODE STATUS should be addressed by the primary service. Plan dated 05/04/2023. The patient is now seen in room 376. He was transferred down to the third floor, because I ordered the BiPAP therapy on him. In addition, the patient has worsening renal function, and will have a temporary hemodialysis catheter placed, and undergo hemodialysis today. The patient's overall prognosis remains very poor. Labs, x-rays, and medications are reviewed. Portable chest x-ray is ordered. Additional recommendations and suggestions are forthcoming. His BiPAP settings are IPAP 12, EPAP 5, and 40%. Time with Patient: Less than 30
[2023-05-04 12:27] LABS: Glucose,Whole Blood 100 mg/dL (70-110)
--- NOTE | 2023-05-04 12:29 | XR ---
EXAMINATION TYPE: XR chest 1V portable DATE OF EXAM: 05/04/2023 12:23 PM COMPARISON: Chest radiographs from 05/02/2023 TECHNIQUE: XR chest 1V portable Portable AP radiograph of the chest. CLINICAL INDICATION:Male, 77 years old with history of CHF; FINDINGS: Lungs/Pleura: No pneumothorax or pleural effusion. Slightly improved aeration of the left lung base. [place] senescent parenchymal change. Pulmonary vascularity: Pulmonary vascular congestion. Heart/mediastinum: Cardiomediastinal silhouette is enlarged and stable. Atherosclerotic calcificatio ns are seen in the aorta. Musculoskeletal: No acute osseous pathology. Midline sternotomy wires are noted and stable. The upper sternotomy wires are again fracture. IMPRESSION: Cardiomegaly and mild pulmonary vascular congestion. Improved aeration of the left lung base. Correla te with BNP for congestive heart failure.
[2023-05-04] MEDS: GABAPENTIN 300 MG CAP PO SCH ×3 (12:46→23:05)
[2023-05-04] MEDS: ENOXAPARIN 100 MG/ML SYRINGE SQ SCH (15:55)
[2023-05-04 16:20] LABS: Glucose,Whole Blood 107 mg/dL (70-110)
[2023-05-04 20:01] LABS: Glucose,Whole Blood 109 mg/dL (70-110)
[2023-05-04] MEDS: ATORVASTATIN 40 MG TAB PO SCH (23:05)
[2023-05-05] MEDS: MIDODRINE 5 MG TAB PO SCH ×3 (05:30→17:30)
[2023-05-05] MEDS: PANTOPRAZOLE 40 MG TABLET PO SCH (05:30)
[2023-05-05] MEDS: methylPREDNISolone SOD SUCCI 40 MG/ML 1 ML VIAL IV SCH ×4 (06:13→23:15)
[2023-05-05 06:26] LABS: Glucose,Whole Blood 153 mg/dL (70-110)
[2023-05-05] MEDS: INSULIN ASPART (NovoLOG) 100 UNIT/ML VIAL SQ SCH ×7 (06:51→20:22)
[2023-05-05] MEDS: INSULIN DETEMIR (LEVEMIR) 100 UNIT/ML SYR SQ SCH ×2 (06:51→20:04)
--- NOTE | 2023-05-05 07:20 | XR ---
EXAMINATION TYPE: XR chest 1V DATE OF EXAM: 05/05/2023 6:49 AM COMPARISON: Chest radiographs from 05/04/2023 TECHNIQUE: XR chest 1V Frontal view of the chest. CLINICAL INDICATION:Male, 77 years old with history of sob; FINDINGS: Lungs/Pleura: No pneumothorax or pleural effusion. Slightly improved aeration of the left lung base. Chronic senescent parenchymal change. Pulmonary vascularity: Pulmonary vascular congestion. Heart/mediastinum: Cardiomediastinal silhouette is enlarged and stable. Atherosclerotic calcificatio ns are seen in the aorta. Musculoskeletal: No acute osseous pathology. Midline sternotomy wires are noted and stable. The upper sternotomy wires are again fracture. Lines/Tubes: Left-sided PICC with distal tip at the high SVC. IMPRESSION: 1. Cardiomegaly with pulmonary vascular congestion and improved aeration of the left lung base. 2. Stable left-sided PICC line.
[2023-05-05] MEDS: FUROSEMIDE 10 MG/ML 10 ML VIAL IV SCH (07:32)
[2023-05-05] MEDS: LORazepam 2 MG/ML INJ IV PRN ×3 (07:32→19:29)
[2023-05-05] MEDS: ENOXAPARIN 100 MG/ML SYRINGE SQ SCH (07:33)
[2023-05-05] MEDS: ASCORBIC ACID 500 MG TAB PO SCH (07:39)
[2023-05-05] MEDS: ZINC SULFATE 220 MG CAP PO SCH (07:39)
[2023-05-05] MEDS: CHOLECALCIFEROL 25 MCG (1000 IU) TABLET PO SCH (07:39)
[2023-05-05] MEDS: NYSTATIN 100,000 UNIT/ML SUSP 500,000 UNIT/5 ML CUP PO SCH ×4 (07:39→20:04)
[2023-05-05] MEDS: LEVOTHYROXINE 125 MCG TAB PO SCH (07:39)
[2023-05-05] MEDS: CYANOCOBALAMIN 500 MCG TAB PO SCH (07:39)
[2023-05-05] MEDS: LEVOTHYROXINE 112 MCG TAB PO SCH (07:39)
[2023-05-05] MEDS: METOPROLOL SUCCINATE (ER) 50 MG TAB.ER.24H PO SCH (07:39)
[2023-05-05] MEDS: ALBUTEROL HFA INHALER INHALATION SCH ×4 (08:11→21:11)
[2023-05-05] MEDS: SYMBICORT 160-4.5 MCG INHALER INHALATION SCH ×2 (08:11→21:11)
--- NOTE | 2023-05-05 09:40 | P.PN ---
Subjective Progress Note Date: 05/04/23 This is a 77-year-old male patient who presented to the hospital complaints of weakness and shortness of breath on 04/25/2023. upon arrival patient was found to be in CHF started on IV Lasix. Patient also testing positive for COVID-19 outside facility. Patient was also found to be acute on chronic renal with a creatinine of 2.5. Patient has extensive medical history including chronic systolic dysfunction, atrial fibrillation, severe pulmonary hypertension and severe stenosis. Patient was initially admitted to the intensive care unit and required Levophed for pressure support. Pulmonary, infectious disease, cardiology and nephrology services were consulted. On 05/01/2023 and resuming care patient Dr. Partida's group previously covering Patient currently resting comfortably in bed on MedSurg unit. Patient having increased confusion head CT was completed showing no acute intracranial process. Nonspecific white matter changes likely secondary to chronic small vessel ischemic disease. Will consult neurology services. Patient's creatinine also increasing to 3.4 and bun 84. Patient was recently transitioned to by mouth Lasix. Nephrology services are following. Patient remains on IV antibiotics infectious services following. Her vital signs temp 97.2, heart rate 81, respiratory rate 18, blood pressure 130/73 with pulse ox 98% on 4 L On 05/02/2023 patient was seen and examined on the telemetry floor he is alert, slightly confused in no apparent distress, he is complaining of shortness of breath, otherwise he denies any complaints there is no fever or chills no headache or dizziness no chest pain no palpitation he has occasional cough no nausea or vomiting no abdominal pain no diarrhea and no urinary symptoms. On chest exam patient has bilateral crackles in both lung fuentes, currently he is off Lasix. Dr. Weller was contacted and she agreed to give patient a 1 dose of Lasix 40 mg IV now, creatinine today is 3.2, will continue to monitor closely On 05/03/2023 patient remains confused. Increased shortness of breath. 60 mg Lasix ordered per nephrology services. BiPAP ordered per pulmonary patient will be transferred to [address] [place] [address] for increased level of care. CMP currently pending. Pulmonary, nephrology, infectious disease and neurology services are following. Prognosis remains guarded at this time. On 05/04/2023 patient was seen and examined on the telemetry floor he is alert, maintained on BiPAP at this time there is no fever or chills no headache or dizziness no chest pain he has shortness of breath with any activity there is no nausea or vomiting no abdominal pain no diarrhea and no urinary symptoms. Mental status is waxing and waning mostly patient is somnolent his oral medications including Eliquis, are on hold at this time patient was started on subcu Lovenox in the meanwhile, will continue to follow closely prognosis is guarded Objective - Vital Signs Vital signs: Vital Signs Temp 96.7 F L 05/04/23 07:41 Pulse 76 05/04/23 07:41 Resp 12 05/04/23 07:41 BP 149/79 05/04/23 07:41 Pulse Ox 98 05/04/23 07:41 FiO2 40 05/04/23 12:20 Intake & Output 05/03/23 05/04/23 05/04/23 18:59 06:59 18:59 Intake Total 0 Output Total 450 780 525 Balance -450 -780 -525 Weight 105 kg 81 kg Intake: Oral 0 Output: Urine 450 780 525 Male - External 300 Other: Voiding Method Diaper Indwelling Catheter Indwelling Catheter Incontinent - Exam Head normocephalic Neck supple Lungs clear to auscultation bilaterally no wheezing or crackles Heart regular rate and rhythm S1-S2, no rub or gallop Abdomen is soft nontender nondistended positive bowel sounds no hepatosplenomegaly Extremities no edema Neuro alert and orientated to 3. Intermittent confusion - Labs CBC & Chem 7: 05/04/23 03:43 05/04/23 03:43 Labs: Abnormal Lab Results - Last 24 Hours (Table) 05/03/23 05/03/23 05/04/23 Range/Units 16:24 20:08 03:43 RBC 3.76 L (4.30-5.90) m/uL Hgb 12.0 L (13.0-17.5) gm/dL Hct 37.0 L (39.0-53.0) % Neutrophils # 9.8 H (1.3-7.7) k/uL Lymphocytes # 0.2 L (1.0-4.8) k/uL BUN (9-20) mg/dL Creatinine (0.66-1.25) mg/dL Glucose (74-99) mg/dL POC Glucose (mg/dL) 190 H 119 H (70-110) mg/dL AST (17-59) U/L Total Protein (6.3-8.2) g/dL Albumin (3.5-5.0) g/dL 05/04/23 Range/Units 03:43 RBC (4.30-5.90) m/uL Hgb (13.0-17.5) gm/dL Hct (39.0-53.0) % Neutrophils # (1.3-7.7) k/uL Lymphocytes # (1.0-4.8) k/uL BUN 119 H* (9-20) mg/dL Creatinine 4.96 H (0.66-1.25) mg/dL Glucose 110 H (74-99) mg/dL POC Glucose (mg/dL) (70-110) mg/dL AST 14 L (17-59) U/L Total Protein 5.6 L (6.3-8.2) g/dL Albumin 2.9 L (3.5-5.0) g/dL Assessment and Plan Assessment: 1. Acute hypoxic respiratory failure secondary to acute CHF, pseudomonas pneumonia and Covid infection 2. Acute renal failure due to ATN from hypotension 3. Hypovolemic shock requiring vasopressor support, resolved 4. Recent Pseudomonas pneumonia. Patient was treated outpatient 5. Increased confusion 6. History of paroxysmal atrial fibrillation. Patient did require IV Cardizem. Rate has improved 7. Diabetes mellitus type 2 8. COVID-19 pneumonia diagnosed outpatient 9. Thrombocytopenia likely secondary from antibiotics in recent illness 10. Ischemic cardiomyopathy 11. Moderate aortic stenosis and pulmonary hypertension 12. History of coronary artery bypass graft surgery 13. History of hypothyroidism DVT prophylaxis eliquis GI prophylaxis Protonix Patient maintained on IV antibiotics Nephrology, pulmonary, infectious and cardiology services are following BiPAP ordered per pulmonary Patient to be transferred to [address] [place] [address] for higher level care Neurology services consulted for confusion Repeat labs ordered
--- NOTE | 2023-05-05 09:43 | P.PN ---
Subjective Progress Note Date: 05/05/23 This is a 77-year-old male patient who presented to the hospital complaints of weakness and shortness of breath on 04/25/2023. upon arrival patient was found to be in CHF started on IV Lasix. Patient also testing positive for COVID-19 outside facility. Patient was also found to be acute on chronic renal with a creatinine of 2.5. Patient has extensive medical history including chronic systolic dysfunction, atrial fibrillation, severe pulmonary hypertension and severe stenosis. Patient was initially admitted to the intensive care unit and required Levophed for pressure support. Pulmonary, infectious disease, cardiology and nephrology services were consulted. On 05/01/2023 and resuming care patient Dr. Partida's group previously covering Patient currently resting comfortably in bed on MedSurg unit. Patient having increased confusion head CT was completed showing no acute intracranial process. Nonspecific white matter changes likely secondary to chronic small vessel ischemic disease. Will consult neurology services. Patient's creatinine also increasing to 3.4 and bun 84. Patient was recently transitioned to by mouth Lasix. Nephrology services are following. Patient remains on IV antibiotics infectious services following. Her vital signs temp 97.2, heart rate 81, respiratory rate 18, blood pressure 130/73 with pulse ox 98% on 4 L On 05/02/2023 patient was seen and examined on the telemetry floor he is alert, slightly confused in no apparent distress, he is complaining of shortness of breath, otherwise he denies any complaints there is no fever or chills no headache or dizziness no chest pain no palpitation he has occasional cough no nausea or vomiting no abdominal pain no diarrhea and no urinary symptoms. On chest exam patient has bilateral crackles in both lung fuentes, currently he is off Lasix. Dr. Weller was contacted and she agreed to give patient a 1 dose of Lasix 40 mg IV now, creatinine today is 3.2, will continue to monitor closely On 05/03/2023 patient remains confused. Increased shortness of breath. 60 mg Lasix ordered per nephrology services. BiPAP ordered per pulmonary patient will be transferred to [address] [place] [address] for increased level of care. CMP currently pending. Pulmonary, nephrology, infectious disease and neurology services are following. Prognosis remains guarded at this time. On 05/04/2023 patient was seen and examined on the telemetry floor he is alert, maintained on BiPAP at this time there is no fever or chills no headache or dizziness no chest pain he has shortness of breath with any activity there is no nausea or vomiting no abdominal pain no diarrhea and no urinary symptoms. Mental status is waxing and waning mostly patient is somnolent his oral medications including Eliquis, are on hold at this time patient was started on subcu Lovenox in the meanwhile, will continue to follow closely prognosis is guarded On 05/05/2023 patient is resting in bed on BiPAP. Patient received hemodialysis yesterday. Patient to receive additional hemodialysis today. Current vital signs temp 96.1, heart rate 92, blood pressure 127/75. Currently satting 94% on BiPAP 50% Objective - Vital Signs Vital signs: Vital Signs Temp 96.1 F L 05/05/23 07:31 Pulse 92 05/05/23 07:31 Resp 17 05/05/23 07:31 BP 127/75 05/05/23 07:31 Pulse Ox 94 L 05/05/23 07:31 FiO2 40 05/05/23 08:12 Intake & Output 05/04/23 05/05/23 05/05/23 18:59 06:59 18:59 Intake Total 400 10 Output Total 1926 251 25 Balance -1526 -251 -15 Weight 100.4 kg Intake: IV 10 Invasive Line 4 10 Oral 0 0 Hemodialysis 400 Output: Urine 525 250 25 Stool 1 1 Hemodialysis 1400 Other: Voiding Method Indwelling Catheter Indwelling Catheter Indwelling Catheter - Exam Head normocephalic Neck supple Lungs clear to auscultation bilaterally no wheezing or crackles Heart regular rate and rhythm S1-S2, no rub or gallop Abdomen is soft nontender nondistended positive bowel sounds no hepatosplenomegaly Extremities no edema Neuro alert and orientated to 3. Intermittent confusion - Labs CBC & Chem 7: 05/04/23 03:43 05/04/23 03:43 Labs: Abnormal Lab Results - Last 24 Hours (Table) 05/05/23 Range/Units 06:24 POC Glucose (mg/dL) 153 H (70-110) mg/dL Assessment and Plan Assessment: 1. Acute hypoxic respiratory failure secondary to acute CHF, pseudomonas pneumonia and Covid infection 2. Acute renal failure due to ATN from hypotension. On 05/04/2023 patient started on hemodialysis received hemodialysis 3. Hypovolemic shock requiring vasopressor support, resolved 4. Recent Pseudomonas pneumonia. Patient was treated outpatient 5. Increased confusion 6. History of paroxysmal atrial fibrillation. Patient did require IV Cardizem. Rate has improved 7. Diabetes mellitus type 2 8. COVID-19 pneumonia diagnosed outpatient 9. Thrombocytopenia likely secondary from antibiotics in recent illness 10. Ischemic cardiomyopathy 11. Moderate aortic stenosis and pulmonary hypertension 12. History of coronary artery bypass graft surgery 13. History of hypothyroidism DVT prophylaxis eliquis GI prophylaxis Protonix Patient maintained on IV antibiotics Nephrology, pulmonary, infectious and cardiology services are following BiPAP ordered per pulmonary Neurology services consulted for confusion Repeat labs ordered Prevacid
[2023-05-05 09:56] LABS: Hepatitis B Surface Antigen Nonreactive
--- NOTE | 2023-05-05 10:35 | P.PN ---
Subjective Patient is seen in follow-up for acute kidney injury on chronic kidney disease. Started on hemodialysis 05/04/2023. Urine output about 200 mL in the last 24 hours despite IV Lasix. On BiPAP. Vital signs are stable. General: Confused. HEENT: On BiPAP. LUNGS: Scattered rhonchi. HEART: Rate and Rhythm are regular. ABDOMEN: No distention. EXTREMITITES: No edema. Objective - Vital Signs Vital signs: Vital Signs Temp 96.1 F L 05/05/23 07:31 Pulse 92 05/05/23 07:31 Resp 17 05/05/23 07:31 BP 127/75 05/05/23 07:31 Pulse Ox 94 L 05/05/23 07:31 FiO2 40 05/05/23 08:12 Intake & Output 05/04/23 05/05/23 05/05/23 18:59 06:59 18:59 Intake Total 400 10 Output Total 1926 251 25 Balance -1526 -251 -15 Weight 100.4 kg Intake: IV 10 Invasive Line 4 10 Oral 0 0 Hemodialysis 400 Output: Urine 525 250 25 Stool 1 1 Hemodialysis 1400 Other: Voiding Method Indwelling Catheter Indwelling Catheter Indwelling Catheter - Labs CBC & Chem 7: 05/04/23 03:43 05/04/23 03:43 Labs: Abnormal Lab Results - Last 24 Hours (Table) 05/05/23 Range/Units 06:24 POC Glucose (mg/dL) 153 H (70-110) mg/dL Assessment and Plan Plan: Assessment: 1. Acute kidney injury secondary to hemodynamic ATN and cardiorenal syndrome. Renal function worsening. Creatinine 4.96 dated 05/04/2023. Started on dialysis 05/04/2023. Has femoral catheter. 2. Chronic kidney disease stage IIIB with baseline creatinine 1.3-1.5 secondary to diabetic kidney disease. 3. Acute on chronic systolic CHF with ejection fraction of 30-35% with moderate tricuspid regurgitation. 4. Pneumonia maintained on antibiotics. Also tested positive for Covid-19 on 04/19/2023. 5. Volume overload. 6. Acute hypoxic respiratory failure. 7. Hypervolemic hyponatremia. Improved. 8. Diabetes mellitus. 9. A. fib with RVR maintained on anticoagulation and metoprolol. Cardiology following. 10. Hypertension with chronic kidney disease. Stable. Plan: Currently seen while undergoing hemodialysis. Another treatment tomorrow. Follow-up phosphorus level. Change IV Lasix to oral Demadex. Monitor for renal recovery. Wean FiO2.
[2023-05-05 11:23] LABS: Glucose,Whole Blood 150 mg/dL (70-110)
[2023-05-05] MEDS: GABAPENTIN 300 MG CAP PO SCH (11:28)
--- NOTE | 2023-05-05 11:40 | P.PN ---
Subjective Progress Note Date: 05/05/23 The patient seen at bedside and per the patient nurse he still continues to be confused and he is on BiPAP. Objective - Vital Signs Vital signs: Vital Signs Temp 96.1 F L 05/05/23 07:31 Pulse 61 05/05/23 11:34 Resp 18 05/05/23 11:34 BP 112/71 05/05/23 11:34 Pulse Ox 97 05/05/23 11:34 FiO2 40 05/05/23 11:34 Intake & Output 05/04/23 05/05/23 05/05/23 18:59 06:59 18:59 Intake Total 400 10 Output Total 1926 251 25 Balance -1526 -251 -15 Weight 100.4 kg Intake: IV 10 Invasive Line 4 10 Oral 0 0 Hemodialysis 400 Output: Urine 525 250 25 Stool 1 1 Hemodialysis 1400 Other: Voiding Method Indwelling Catheter Indwelling Catheter Indwelling Catheter - Exam Gen.: Patient does not appear in acute distress Lung: He is on BiPAP Neuro: Very drowsy. Some of the workup during this hospital visit consisted of: Vital B12 most recent one is 380. But the day prior was 298. Folate is 17.90. Hemoglobin A1c is 9.4. Ammonia level is less than 9 TSH is 0.586. Seems she has acute on chronic kidney insufficiency and that her kidney function is trending up. CT of the head on 05/01/23 is reported as no acute intracranial process. Nonspecific white matter changes, likely seizure due to chronic small vessel isc hemic disease. Routine EEG is abnormal. The background slowing is suggestive of mild to moderate encephalopathy likely due to toxic metabolic derangement. Otherwise there is no focal slowing, epileptiform discharges or seizure on the EEG. MRI the brain without is reported as no evidence of intracranial mass or acute/subacute infarct. Nonspecific white matter changes, likely secondary to small vessel ischemic disease. Mild cerebral atrophy with proportional dilation of the ventricular system. I personally reviewed the MRI and agree there is no acute subacute ischemia. Patient has not specific white matter changes on FLAIR. - Labs CBC & Chem 7: 05/04/23 03:43 05/04/23 03:43 Labs: Abnormal Lab Results - Last 24 Hours (Table) 05/05/23 05/05/23 Range/Units 06:24 11:22 POC Glucose (mg/dL) 153 H 150 H (70-110) mg/dL Assessment and Plan Assessment: Altered mental status: Toxic-Metabolic Encephalopathy as well as due to recent Covid 19 infection. Is on High dose of Gabapentin and kidney trending up. MRI Brain is negative for acute/subacute stroke. EEG is mild to moderate encephalopathy but no seizure. Low normal finding B12 level in the high 200s low 300 Acute on chronic kidney insufficiency trending up Diabetes mellitus and his recent hemoglobin A1c is 9.4. Chronic atrial fibrillation patient presented with Mary miramontes with RVR currently on [place] Acute exacerbation of chronic congestive heart failure with ejection fraction of 30-35% Acute exacerbation of COPD COVID-19 infection and was positive close to the end of March 2023 Recent history of pneumonia secondary due to pseudomonas aeruginosa History of coronary artery disease status post CABG and stent Dyslipidemia Hyper thousand Plan: Routine EEG is abnormal. The background slowing is suggestive of mild to moderate encephalopathy likely due to toxic metabolic derangement. Otherwise there is no focal slowing, epileptiform discharges or seizure on the EEG. MRI the brain without is reported as no evidence of intracranial mass or acute/subacute infarct. Nonspecific white matter changes, likely secondary to small vessel ischemic disease. Mild cerebral atrophy with proportional dilation of the ventricular system. I personally reviewed the MRI and agree there is no acute subacute ischemia. Patient has not specific white matter changes on FLAIR. For low-normal of vitamin B-12 I gave the patient the one time vitamin B12 1000 g IM and continue after that by mouth Patient is on very high dose of gabapentin of 1200 mg 1 tablet 3 times a day and I initially decreased it to 300 and since he continues to be confused and kidney worsening will decrease it down to 100mg 1 tab tid. Not sure why he is on super high Gabapentin especially in elderly patient. Once mentation and kidney improves can go up on his Gabapentin dose. We'll defer the rest of the management to the primary and other specialists Plan was discussed with the patient nurse. Dr. Howell will start neurology service tomorrow A.M. Time with Patient: Less than 30
--- NOTE | 2023-05-05 11:47 | P.PN ---
Subjective Progress Note Date: 05/05/23 Principal diagnosis: Irregular heartbeat. Patient was seen and evaluated on 04/27/2023, remains in the ICU, remains on 4 L nasal cannula, remains on Cardizem drip at 10 mg per hour remains on norepinephrine at 0.0-3 mcg/kg/m, IV fluids at KVO, patient is sleeping and dressing this morning, he had episodes of anxiety yesterday. Under control, patient is maintained on Xanax. Cardiology is planning to cut down his Cardizem down to 5 mg per hour, hopefully with good taper and possibly discontinue norepinephrine today. Overall the patient is doing much better today compared to yesterday. WBC count is 6 hemoglobin is 10.8 electrolytes are normal BUN is 51 creatinine 2.08, improving compared to his admission creatinine of 2.21. Chest x-ray is showing nonspecific interstitial bilateral changes patient is known to have history of nonspecific interstitial pneumonitis. And chronic diastolic congestive heart failure Reevaluated today on 04/28/2023, patient is having more symptoms of cough wheezing shortness of breath and chest tightness. Hence I started the patient on re latively high-dose of steroids. Patient is now off Cardizem, he is off norepinephrine, continues to cough and wheeze and continues to have chest tightness his CBC is relatively normal in the class abnormal BUN is 47 creatinine 2.31, slightly worse compared to yesterday. Chest x-ray showed minimal interstitial edema and pulmonary vascular congestion patient is on diuretics, he is also on bronchodilators, and steroids were added today The patient is seen today 04/29/2023 in follow-up in the intensive care unit. He is currently sitting up in bed. Awake and alert in no acute distress. Maintaining O2 saturations in the 90s on 3 L/m per nasal cannula. He's been afebrile. Norepinephrine has been discontinued. Normal saline at KVO. Chest x-ray reveals left lower lobe infiltrate. Atypical pulmonary edema. Few curly B-lines on the right. Mild congestive heart failure. He remains in atrial fibrillation with a controlled ventricular rate. Blood cultures reveal no growth. Sputum culture revealed no growth. White count 2.5. Hemoglobin 10.0. Platelets 43,000. Sodium 128. Potassium 4.3. Bicarb 21. BUN 54. Creatinine 2.36. Glucose 316. He is continued on Symbicort, albuterol, IV Solu-Medrol. Anticoagulated with Eliquis. Antibiotics in the form of cefepime. Remains on oral diuretics. Metoprolol for rate control. Progress note dated 04/30/2023. The patient is seen today in room 467. Currently, he's in no distress. He is getting oxygen at 4 L by nasal cannula. He's getting a KVO saline IV, which I told the nurse, can be discontinued. The patient is not having any complaints, or distress. White count is 3.7, hemoglobin 9.6, hematocrit 29.3, and platelet count a 67,000. Sodium 133, potassium 4.6, chlorides 99, CO2 22, BUN 66, and creatinine 3.2. Sputum was positive for Susana. Blood cultures are negative. Chest x-ray from yesterday suggests some mild congestive heart failure. Progress note dated 05/01/2023. The patient is seen today in room 467. He seems to be doing relatively well, and is very comfortable on 3 L. He's not receiving any IV fluids. He continues on cefepime. He has no particular complaints today. White count is 4.9, hemo globin 11, hematocrit 32.8, and platelet count of 78,000. Sodium 133, potassium 4.3, chlorides 99, CO2 24, anion gap 10, BUN 84, and creatinine 3.46. Microbiology is negative other than some Susana in his sputum. Brain CT revealed no abnormality of significance. Chest x-ray showed improving features of mild CHF. Progress note dated 05/03/2023. The patient is seen today in room 376. His respiratory status has clearly declined. The patient's currently on 6 L of oxygen, with saturations between 88 and 89%. The patient's getting saline at 10 mL an hour. I ordered the patient be placed on BiPAP, at 12 and 5, and 50%. For that reason, the patient is transferred down to 3 S. floor. The patient's very lethargic, shouting out words. Doesn't seem to be making much sense. Chest x-ray shows fluid overload. White count was 5.26, hemoglobin 11.4, hematocrit 36.3, with a platelet count of 135,000. Sodium 138, potassium 5.1, chlorides 100, CO2 was 21, anion gap was 17, BUN 99, and creatinine 4.5. Sputum and blood cultures have been negative. Progress note dated 05/04/2023. The patient is seen today in room 376. He was moved down to the third floor, because we recommended BiPAP therapy. Currently, his BiPAP settings are 12 and 5 and 40%. We have ordered a portable chest x-ray. The patient will have a temporary hemodialysis catheter placed, and he'll have hemodialysis today. White count is 10.4, hemoglobin 12, hematocrit 37, and platelet count 177,000. Sodium 139, potassium 4.5, chlorides 102, CO2 26, anion gap 11, BUN 119, and creatinine 4.96. Glucose 110. Albumin is 2.9. Progress note dated 05/05/2023. 77-year-old male seen today in room 377. The patient was moved down to the third floor, for BiPAP therapy. Currently, he is at 12/5 and 40%. In addition, hemodialysis catheter was placed, and he had hemodialysis on May 04 and May 05, with 1 L being removed at both sessions. His most recent chest x-ray, does show improvement. No new labs other than a glucose of 150. The patient's respiratory status appears to be reasonably stable. Objective - Vital Signs Vital signs: Vital Signs Temp 96.1 F L 05/05/23 07:31 Pulse 61 05/05/23 11:34 Resp 18 05/05/23 11:34 BP 112/71 05/05/23 11:34 Pulse Ox 97 05/05/23 11:34 FiO2 40 05/05/23 11:40 Intake & Output 05/04/23 05/05/23 05/05/23 18:59 06:59 18:59 Intake Total 400 10 Output Total 1926 251 25 Balance -1526 -251 -15 Weight 100.4 kg Intake: IV 10 Invasive Line 4 10 Oral 0 0 Hemodialysis 400 Output: Urine 525 250 25 Stool 1 1 Hemodialysis 1400 Other: Voiding Method Indwelling Catheter Indwelling Catheter Indwelling Catheter - Exam No acute distress, a bit lethargic and confused. Currently on BiPAP. No conversational dyspnea. No use of accessory muscles. HEENT examination is grossly unremarkable. Neck supple. Full range of motion. No adenopathy thyromegaly or neck vein distention. Cardiovascular examination reveals irregular rhythm and rate. S1-S2 normal. No S3 or S4. No discernible murmur noted. Heart rate is 61 bpm. Lungs reveal mild scattered rhonchi. No wheezes or crackles. Breath sounds are equal bilaterally. Saturations are 97 %, now on BiPAP. Abdomen soft bowel sounds are heard. No masses or tenderness. Extremities are intact. No cyanosis clubbing or edema. Ecchymosis noted to his right posterior thigh area. Skin is without rash or lesion. Neurologic examination is brief but nonfocal. - Labs CBC & Chem 7: 05/04/23 03:43 05/04/23 03:43 Labs: Abnormal Lab Results - Last 24 Hours (Table) 05/05/23 05/05/23 Range/Units 06:24 11:22 POC Glucose (mg/dL) 153 H 150 H (70-110) mg/dL Assessment and Plan Assessment: Chronic atrial fibrillation, patient presented with atrial fibrillation with RVR. Anticoagulated with Eliquis. Acute exacerbation of chronic systolic congestive heart failure, ejection fraction 30-35% on 03/29/2023. Acute exacerbation of COPD. COVID-19 infection. Recent history of pneumonia secondary to pseudomonas aeruginosa, on cefepime. Moderate severe aortic stenosis with pulmonary hypertension. Chronic kidney disease stage III, with worsening renal function, requiring hemodialysis, beginning on May 04. Former smoker. History of coronary artery disease and previous CABG and stenting. Dyslipidemia. Hypothyroidism. Poor overall functional performance based on the above-mentioned multiple comorbidities. Plan: Plan dated 04/30/2023. The patient appears to be relatively stable. The patient's atrial fibrillation is under good control. The patient remains on a factor X a inhibitor. Labs, x- rays, medications are reviewed. The patient remains on cefepime. Additional recommendations and suggestions are forthcoming. The IV Solu-Medrol be discontinued. The patient will be started on prednisone 30 mg a day. Discharge planning underway. Plan dated 05/01/2023. The patient appears to be doing relatively well. He is down to 3 L of oxygen. His vital signs are stable. His labs are reviewed. The patient continues on a factor X a inhibitor. The Solu-Medrol was converted to prednisone 30 mg a day. Discharge planning underway. Labs, x-rays, and medications are all reviewed prognosis is certainly guarded. We will continue to follow the patient and make recommendations. Plan dated 05/03/2023. The patient was seen initially in room 467. His respiratory status seems to be declining, and his saturations are only 88-89% on 6 L. He was placed on BiPAP, at 12/5 and 50%. He was transferred down to the third floor. Labs, x-rays, medications are reviewed. The patient is no longer on antibiotic. We will continue to follow and make recommendations along the way. The patient's renal function continues to decline. Labs, have been reviewed. Prognosis is guarded and CODE STATUS should be addressed by the primary service. Plan dated 05/04/2023. The patient is now seen in room 376. He was transferred down to the third floor, because I ordered the BiPAP therapy on him. In addition, the patient has worsening renal function, and will have a temporary hemodialysis catheter placed, and undergo hemodialysis today. The patient's overall prognosis remains very poor. Labs, x-rays, and medications are reviewed. Portable chest x-ray is ordered. Additional recommendations and suggestions are forthcoming. His BiPAP settings are IPAP 12, EPAP 5, and 40%. Plan dated 05/05/2023. The patient is seen today in room 377. He was transferred down to the third floor, from the fourth floor, for BiPAP therapy. The patient is currently on BiPAP at 12/5 and 40%. A hemodialysis catheter was placed, on May 04. She has had hemodialysis the last 2 days, with 1 L being removed on both days. Oriented to the dialysis nurse, he's tolerated dialysis very well. We will continue to follow. Today's labs are currently pending. Chest x-ray is improved. Time with Patient: Less than 30
[2023-05-05] MEDS: GABAPENTIN 100 MG CAP PO SCH ×3 (11:49→20:04)
[2023-05-05 16:45] LABS: Glucose,Whole Blood 172 mg/dL (70-110)
[2023-05-05] MEDS: ATORVASTATIN 40 MG TAB PO SCH (20:04)
[2023-05-05 20:14] LABS: Glucose,Whole Blood 199 mg/dL (70-110)
[2023-05-06 06:17] LABS: Glucose,Whole Blood 307 mg/dL (70-110)
[2023-05-06] MEDS: methylPREDNISolone SOD SUCCI 40 MG/ML 1 ML VIAL IV SCH ×3 (06:29→17:08)
[2023-05-06] MEDS: INSULIN ASPART (NovoLOG) 100 UNIT/ML VIAL SQ SCH ×7 (06:29→21:40)
[2023-05-06] MEDS: MIDODRINE 5 MG TAB PO SCH ×3 (06:30→17:09)
[2023-05-06] MEDS: PANTOPRAZOLE 40 MG TABLET PO SCH (06:30)
[2023-05-06 07:57] LABS: Basophils % (A) 0 %; Eosinophils % (A) 0 %; HCT 42.7 % (39.0-53.0); HGB 13.3 gm/dL (13.0-17.5); Hypochromasia Slight; Lymphocytes # (A) 0.3 k/uL (1.0-4.8); Lymphocytes % (A) 3 %; MCH 30.8 pg (25.0-35.0); MCHC 31.1 g/dL (31.0-37.0); Macrocytosis Slight; Mean Platelet Volume 8.2; Monocytes # (A) 0.3 k/uL (0-1.0); Monocytes % (A) 3 %; Neutrophils # (A) 7.9 k/uL (1.3-7.7); Neutrophils % (A) 93 %; Platelet Count 235 k/uL (150-450); Poikilocytosis Slight; RBC 4.32 m/uL (4.30-5.90); RDW 15.1 % (11.5-15.5); WBC 8.5 k/uL (3.8-10.6)
[2023-05-06] MEDS: SYMBICORT 160-4.5 MCG INHALER INHALATION SCH ×2 (07:58→20:45)
[2023-05-06] MEDS: ALBUTEROL HFA INHALER INHALATION SCH ×4 (07:58→20:45)
[2023-05-06 08:33] LABS: ALT 18 U/L (4-49); AST 16 U/L (17-59); Albumin 3.1 g/dL (3.5-5.0); Alkaline Phosphatase 69 U/L (38-126); Anion Gap 20 mmol/L; Blood Urea Nitrogen 100 mg/dL (9-20); Calcium 8.2 mg/dL (8.4-10.2); Carbon Dioxide 18 mmol/L (22-30); Chloride 96 mmol/L (98-107); Glucose 299 mg/dL (74-99); Magnesium 2.3 mg/dL (1.6-2.3); Potassium 4.9 mmol/L (3.5-5.1); Sodium 134 mmol/L (137-145); Total Bilirubin 1.1 mg/dL (0.2-1.3); Total Protein 5.7 g/dL (6.3-8.2)
[2023-05-06 08:39] LABS: African American GFR (CKD) 13 (>60 ml/min/1.73 sqM); Non-African American GFR(CKD) 12 (>60 ml/min/1.73 sqM)
[2023-05-06 09:01] LABS: Phosphorus 9.6 mg/dL (2.5-4.5)
--- NOTE | 2023-05-06 09:11 | IR ---
EXAMINATION TYPE: IR cvc insert non tunneled DATE OF EXAM: 05/04/2023 COMPARISON: NONE HISTORY: Fluoroscopy time. Fluoroscopy was provided to the referring clinician.
[2023-05-06] MEDS: METOPROLOL SUCCINATE (ER) 50 MG TAB.ER.24H PO SCH (09:58)
[2023-05-06] MEDS: CHOLECALCIFEROL 25 MCG (1000 IU) TABLET PO SCH (09:58)
[2023-05-06] MEDS: ASCORBIC ACID 500 MG TAB PO SCH (09:58)
[2023-05-06] MEDS: LEVOTHYROXINE 112 MCG TAB PO SCH (09:58)
[2023-05-06] MEDS: CYANOCOBALAMIN 500 MCG TAB PO SCH (09:58)
[2023-05-06] MEDS: LEVOTHYROXINE 125 MCG TAB PO SCH (09:58)
[2023-05-06] MEDS: ZINC SULFATE 220 MG CAP PO SCH (09:59)
[2023-05-06] MEDS: TORSEMIDE 20 MG TAB PO SCH (09:59)
[2023-05-06] MEDS: NYSTATIN 100,000 UNIT/ML SUSP 500,000 UNIT/5 ML CUP PO SCH ×4 (09:59→20:18)
[2023-05-06] MEDS: LORazepam 2 MG/ML INJ IV PRN (10:47)
--- NOTE | 2023-05-06 10:50 | P.PN ---
Subjective Patient is seen in follow-up for acute kidney injury on chronic kidney disease. Started on hemodialysis 05/04/2023. On BiPAP. Oliguric. Tolerating dialysis well. Vital signs are stable. General: Confused. HEENT: On BiPAP. LUNGS: Scattered rhonchi. HEART: Rate and Rhythm are regular. ABDOMEN: No distention. EXTREMITITES: No edema. Objective - Vital Signs Vital signs: Vital Signs Temp 99.2 F 05/06/23 09:43 Pulse 92 05/06/23 09:43 Resp 18 05/06/23 09:43 BP 113/77 05/06/23 09:43 Pulse Ox 91 L 05/06/23 09:43 FiO2 40 05/06/23 09:43 Intake & Output 05/05/23 05/06/23 05/06/23 18:59 06:59 18:59 Intake Total 420 10 Output Total 1475 20 Balance -1055 -10 Intake: IV 20 10 Invasive Line 4 20 10 Oral 0 Hemodialysis 400 Output: Urine 75 20 Hemodialysis 1400 Other: Voiding Method Indwelling Catheter Indwelling Catheter Indwelling Catheter - Labs CBC & Chem 7: 05/06/23 07:11 05/06/23 07:11 Labs: Abnormal Lab Results - Last 24 Hours (Table) 05/05/23 05/05/23 05/05/23 Range/Units 11:22 16:43 20:12 Neutrophils # (1.3-7.7) k/uL Lymphocytes # (1.0-4.8) k/uL Sodium (137-145) mmol/L Chloride (98-107) mmol/L Carbon Dioxide (22-30) mmol/L BUN (9-20) mg/dL Creatinine (0.66-1.25) mg/dL Glucose (74-99) mg/dL POC Glucose (mg/dL) 150 H 172 H 199 H (70-110) mg/dL Calcium (8.4-10.2) mg/dL Phosphorus (2.5-4.5) mg/dL AST (17-59) U/L Total Protein (6.3-8.2) g/dL Albumin (3.5-5.0) g/dL 05/06/23 05/06/23 05/06/23 Range/Units 06:16 07:11 07:11 Neutrophils # 7.9 H (1.3-7.7) k/uL Lymphocytes # 0.3 L (1.0-4.8) k/uL Sodium 134 L (137-145) mmol/L Chloride 96 L (98-107) mmol/L Carbon Dioxide 18 L (22-30) mmol/L BUN 100 H (9-20) mg/dL Creatinine 4.55 H (0.66-1.25) mg/dL Glucose 299 H (74-99) mg/dL POC Glucose (mg/dL) 307 H (70-110) mg/dL Calcium 8.2 L (8.4-10.2) mg/dL Phosphorus 9.6 H* (2.5-4.5) mg/dL AST 16 L (17-59) U/L Total Protein 5.7 L (6.3-8.2) g/dL Albumin 3.1 L (3.5-5.0) g/dL Assessment and Plan Plan: Assessment: 1. Acute kidney injury secondary to hemodynamic ATN and cardiorenal syndrome. Renal function worsen. Oliguric. Creatinine 4.96 dated 05/04/2023. Started on dialysis 05/04/2023. Has femoral catheter. 2. Chronic kidney disease stage IIIB with baseline creatinine 1.3-1.5 secondary to diabetic kidney disease. 3. Acute on chronic systolic CHF with ejection fraction of 30-35% with moderate tricuspid regurgitation. 4. Pneumonia maintained on antibiotics. Also tested positive for Covid-19 on 04/19/2023. 5. Volume overload. 6. Acute hypoxic respiratory failure. 7. Hypervolemic hyponatremia. 8. Diabetes mellitus. 9. A. fib with RVR maintained on anticoagulation and metoprolol. Cardiology following. 10. Hypertension with chronic kidney disease. Stable. 11. Hyperphosphatemia secondary to acute kidney injury. Add binder once able to tolerate oral meds. Expect improvement postdialysis as well. 12. Metabolic acidosis secondary to acute kidney injury. Expect improvement postdialysis. Unable to take oral meds at this time. Plan: Currently seen while undergoing hemodialysis. Maintain Demadex. Monitor for renal recovery. Wean FiO2.
[2023-05-06 11:19] LABS: Glucose,Whole Blood 163 mg/dL (70-110)
[2023-05-06] MEDS: INSULIN DETEMIR (LEVEMIR) 100 UNIT/ML SYR SQ SCH ×2 (11:29→20:18)
[2023-05-06] MEDS: ENOXAPARIN 100 MG/ML SYRINGE SQ SCH (11:39)
--- NOTE | 2023-05-06 11:55 | P.PN ---
Subjective Progress Note Date: 05/06/23 Patient was seen and evaluated on 04/27/2023, remains in the ICU, remains on 4 L nasal cannula, remains on Cardizem drip at 10 mg per hour remains on norepinephrine at 0.0-3 mcg/kg/m, IV fluids at KVO, patient is sleeping and dressing this morning, he had episodes of anxiety yesterday. Under control, pat ient is maintained on Xanax. Cardiology is planning to cut down his Cardizem down to 5 mg per hour, hopefully with good taper and possibly discontinue norepinephrine today. Overall the patient is doing much better today compared to yesterday. WBC count is 6 hemoglobin is 10.8 electrolytes are normal BUN is 51 creatinine 2.08, improving compared to his admission creatinine of 2.21. Chest x-ray is showing nonspecific interstitial bilateral changes patient is known to have history of nonspecific interstitial pneumonitis. And chronic diastolic congestive heart failure Reevaluated today on 04/28/2023, patient is having more symptoms of cough wheezing shortness of breath and chest tightness. Hence I started the patient on relatively high-dose of steroids. Patient is now off Cardizem, he is off norepinephrine, continues to cough and wheeze and continues to have chest tightness his CBC is relatively normal in the class abnormal BUN is 47 creatinine 2.31, slightly worse compared to yesterday. Chest x-ray showed minimal interstitial edema and pulmonary vascular congestion patient is on diuretics, he is also on bronchodilators, and steroids were added today The patient is seen today 04/29/2023 in follow-up in the intensive care unit. He is currently sitting up in bed. Awake and alert in no acute distress. Maintaining O2 saturations in the 90s on 3 L/m per nasal cannula. He's been afebrile. Norepinephrine has been discontinued. Normal saline at KVO. Chest x-ray reveals left lower lobe infiltrate. Atypical pulmonary edema. Few curly B-lines on the right. Mild congestive heart failure. He remains in atrial fibrillation with a controlled ventricular rate. Blood cultures reveal no growth. Sputum culture revealed no growth. White count 2.5. Hemoglobin 10.0. Platelets 43,000. Sodium 128. Potassium 4.3. Bicarb 21. BUN 54. Creatinine 2.36. Glucose 316. He is continued on Symbicort, albuterol, IV Solu-Medrol. Anticoagulated with Eliquis. Antibiotics in the form of cefepime. Remains on oral diuretics. Metoprolol for rate control. Progress note dated 04/30/2023. The patient is seen today in room 467. Currently, he's in no distress. He is getting oxygen at 4 L by nasal cannula. He's getting a KVO saline IV, which I told the nurse, can be discontinued. The patient is not having any complaints, or distress. White count is 3.7, hemoglobin 9.6, hematocrit 29.3, and platelet count a 67,000. Sodium 133, potassium 4.6, chlorides 99, CO2 22, BUN 66, and creatinine 3.2. Sputum was positive for Susana. Blood cultures are negative. Chest x-ray from yesterday suggests some mild congestive heart failure. Progress note dated 05/01/2023. The patient is seen today in room 467. He seems to be doing relatively well, and is very comfortable on 3 L. He's not receiving any IV fluids. He continues on cefepime. He has no particular complaints today. White count is 4.9, hemoglobin 11, hematocrit 32.8, and platelet count of 78,000. Sodium 133, potassium 4.3, chlorides 99, CO2 24, anion gap 10, BUN 84, and creatinine 3.46. Microbiology is negative other than some Susana in his sputum. Brain CT revealed no abnormality of significance. Chest x-ray showed improving features of mild CHF. Progress note dated 05/03/2023. The patient is seen today in room 376. His respiratory status has clearly declined. The patient's currently on 6 L of oxygen, with saturations between 88 and 89%. The patient's getting saline at 10 mL an hour. I ordered the patient be placed on BiPAP, at 12 and 5, and 50%. For that reason, the patient is tra nsferred down to 3 S. floor. The patient's very lethargic, shouting out words. Doesn't seem to be making much sense. Chest x-ray shows fluid overload. White count was 5.26, hemoglobin 11.4, hematocrit 36.3, with a platelet count of 135,000. Sodium 138, potassium 5.1, chlorides 100, CO2 was 21, anion gap was 17, BUN 99, and creatinine 4.5. Sputum and blood cultures have been negative. Progress note dated 05/04/2023. The patient is seen today in room 376. He was moved down to the third floor, because we recommended BiPAP therapy. Currently, his BiPAP settings are 12 and 5 and 40%. We have ordered a portable chest x-ray. The patient will have a temporary hemodialysis catheter placed, and he'll have hemodialysis today. White count is 10.4, hemoglobin 12, hematocrit 37, and platelet count 177,000. Sodium 139, potassium 4.5, chlorides 102, CO2 26, anion gap 11, BUN 119, and creatinine 4.96. Glucose 110. Albumin is 2.9. Progress note dated 05/05/2023. 77-year-old male seen today in room 377. The patient was moved down to the third floor, for BiPAP therapy. Currently, he is at 12/5 and 40%. In addition, hemodialysis catheter was placed, and he had hemodialysis on May 04 and May 05, with 1 L being removed at both sessions. His most recent chest x-ray, does show improvement. No new labs other than a glucose of 150. The patient's respiratory status appears to be reasonably stable. On today's evaluation of 05/06/2023, the patient is undergoing hemodialysis. At the same time, the patient is a BiPAP at a pressure of 12/5 cm of water with an FiO2 of 40%. Is quite comfortable on a BiPAP. On examination he does have some bronchospasm and wheezing. His generator tidal volume is 500 mL in his respiratory rate is around 13. He has a pulse ox of 98% on room air oxygen. The most recent chest x-ray from 05/05/2023 was reviewed and it shows cardiomegaly, postthoracotomy changes, otherwise no other acute abnormalities have been noted. The patient currently has a right femoral hemodialysis catheter in place. He is known to have CHF with fluid overload and is based on that LV function is around 20-25%. He has severe pulmonary hypertension based on previous echocardiograms. He has COPD, chronic kidney disease and currently is on hemodialysis, coronary artery disease with previous bypass surgery and previous coronary stenting, hyperlipidemia, hypothyroidism, chronic atrial fibrillation and previous history of gallstone pancreatitis. Most recent blood work shows inability count of 8.5 with a hemoglobin of 13.3 and a platelet count of 235. BUN is 100 and a creatinine of 4.5. Sodium is at 134. Cultures from the sputum from 04/27/2023 was positive for Susana albicans. Neurologically, encephalopathic. MRI of the brain showed cerebral atrophy and no evidence of any acute ischemic infarct. His EEG of the brain that was done on 05/02/2023 sh owed encephalopathy along with mild to moderate slowing consistent with toxic metabolic encephalopathy. There is no evidence of any seizure activity. Objective - Vital Signs Vital signs: Vital Signs Temp 98.4 F 05/06/23 11:35 Pulse 45 L 05/06/23 11:35 Resp 15 05/06/23 11:35 BP 111/69 05/06/23 11:35 Pulse Ox 98 05/06/23 11:35 FiO2 40 05/06/23 11:35 Intake & Output 05/05/23 05/06/23 05/06/23 18:59 06:59 18:59 Intake Total 420 10 Output Total 1475 20 Balance -1055 -10 Intake: IV 20 10 Invasive Line 4 20 10 Oral 0 Hemodialysis 400 Output: Urine 75 20 Hemodialysis 1400 Other: Voiding Method Indwelling Catheter Indwelling Catheter Indwelling Catheter - Exam No acute distress, a bit lethargic and confused. Currently on BiPAP. No conversational dyspnea. No use of accessory muscles. HEENT examination is grossly unremarkable. Neck supple. Full range of motion. No adenopathy thyromegaly or neck vein distention. Cardiovascular examination reveals irregular rhythm and rate. S1-S2 normal. No S3 or S4. No discernible murmur noted. Heart rate is 61 bpm. Lungs reveal mild scattered rhonchi. No wheezes or crackles. Breath sounds are equal bilaterally. Saturations are 97 %, now on BiPAP. Abdomen soft bowel sounds are heard. No masses or tenderness. Extremities are intact. No cyanosis clubbing or edema. Ecchymosis noted to his right posterior thigh area. Skin is without rash or lesion. Neurologic examination is brief but nonfocal. - Labs CBC & Chem 7: 05/06/23 07:11 05/06/23 07:11 Labs: Abnormal Lab Results - Last 24 Hours (Table) 05/05/23 05/05/23 05/06/23 Range/Units 16:43 20:12 06:16 Neutrophils # (1.3-7.7) k/uL Lymphocytes # (1.0-4.8) k/uL Sodium (137-145) mmol/L Chloride (98-107) mmol/L Carbon Dioxide (22-30) mmol/L BUN (9-20) mg/dL Creatinine (0.66-1.25) mg/dL Glucose (74-99) mg/dL POC Glucose (mg/dL) 172 H 199 H 307 H (70-110) mg/dL Calcium (8.4-10.2) mg/dL Phosphorus (2.5-4.5) mg/dL AST (17-59) U/L Total Protein (6.3-8.2) g/dL Albumin (3.5-5.0) g/dL 05/06/23 05/06/23 05/06/23 Range/Units 07:11 07:11 11:17 Neutrophils # 7.9 H (1.3-7.7) k/uL Lymphocytes # 0.3 L (1.0-4.8) k/uL Sodium 134 L (137-145) mmol/L Chloride 96 L (98-107) mmol/L Carbon Dioxide 18 L (22-30) mmol/L BUN 100 H (9-20) mg/dL Creatinine 4.55 H (0.66-1.25) mg/dL Glucose 299 H (74-99) mg/dL POC Glucose (mg/dL) 163 H (70-110) mg/dL Calcium 8.2 L (8.4-10.2) mg/dL Phosphorus 9.6 H* (2.5-4.5) mg/dL AST 16 L (17-59) U/L Total Protein 5.7 L (6.3-8.2) g/dL Albumin 3.1 L (3.5-5.0) g/dL Assessment and Plan Plan: Encephalopathy, possibility of toxic metabolic encephalopathy. MRI of the brain has been negative other than atrophy and EEG is consistent with metabolic encephalopathy. The patient is currently on BiPAP. He has a sitter at the bedside and is undergoing hemodialysis. No significant agitation. Chronic atrial fibrillation, patient presented with atrial fibrillation with RVR. Anticoagulated with Eliquis. Acute exacerbation of chronic systolic congestive heart failure, ejection fraction 30-35% Acute exacerbation of COPD. COVID-19 infection. Diagnosis was established on 04/23/2023 Recent history of pneumonia secondary to pseudomonas aeruginosa, on cefepime. Moderate severe aortic stenosis with pulmonary hypertension. Chronic kidney disease stage III, with worsening renal function, requiring hemodialysis, beginning on May 04. Former smoker. History of coronary artery disease and previous CABG and stenting. Dyslipidemia. Hypothyroidism. Poor overall functional performance based on the above-mentioned multiple comorbidities. Plan: Monitor mental status Attempted get him off the BiPAP and uses high flow oxygen if needed Continue hemodialysis Monitor electrolytes We'll continue to follow Full CODE STATUS
[2023-05-06] MEDS: GABAPENTIN 100 MG CAP PO SCH ×3 (15:08→20:18)
[2023-05-06 15:14] VITALS: BMI 29.2
[2023-05-06 16:25] LABS: Glucose,Whole Blood 161 mg/dL (70-110)
--- NOTE | 2023-05-06 17:07 | P.PN ---
Subjective Progress Note Date: 05/06/23 This is a 77-year-old male patient who presented to the hospital complaints of weakness and shortness of breath on 04/25/2023. upon arrival patient was found to be in CHF started on IV Lasix. Patient also testing positive for COVID-19 outside facility. Patient was also found to be acute on chronic renal with a creatinine of 2.5. Patient has extensive medical history including chronic systolic dysfunction, atrial fibrillation, severe pulmonary hypertension and severe stenosis. Patient was initially admitted to the intensive care unit and required Levophed for pressure support. Pulmonary, infectious disease, cardiology and nephrology services were consulted. On 05/01/2023 and resuming care patient Dr. Partida's group previously covering Patient currently resting comfortably in bed on MedSurg unit. Patient having increased confusion head CT was completed showing no acute intracranial process. Nonspecific white matter changes likely secondary to chronic small vessel ischemic disease. Will consult neurology services. Patient's creatinine also increasing to 3.4 and bun 84. Patient was recently transitioned to by mouth Lasix. Nephrology services are following. Patient remains on IV antibiotics infectious services following. Her vital signs temp 97.2, heart rate 81, respiratory rate 18, blood pressure 130/73 with pulse ox 98% on 4 L On 05/02/2023 patient was seen and examined on the telemetry floor he is alert, slightly confused in no apparent distress, he is complaining of shortness of breath, otherwise he denies any complaints there is no fever or chills no headache or dizziness no chest pain no palpitation he has occasional cough no nausea or vomiting no abdominal pain no diarrhea and no urinary symptoms. On chest exam patient has bilateral crackles in both lung fuentes, currently he is off Lasix. Dr. Weller was contacted and she agreed to give patient a 1 dose of Lasix 40 mg IV now, creatinine today is 3.2, will continue to monitor closely On 05/03/2023 patient remains confused. Increased shortness of breath. 60 mg Lasix ordered per nephrology services. BiPAP ordered per pulmonary patient will be transferred to [address] [place] [address] for increased level of care. CMP currently pending. Pulmonary, nephrology, infectious disease and neurology services are following. Prognosis remains guarded at this time. On 05/04/2023 patient was seen and examined on the telemetry floor he is alert, maintained on BiPAP at this time there is no fever or chills no headache or dizziness no chest pain he has shortness of breath with any activity there is no nausea or vomiting no abdominal pain no diarrhea and no urinary symptoms. Mental status is waxing and waning mostly patient is somnolent his oral medications including Eliquis, are on hold at this time patient was started on subcu Lovenox in the meanwhile, will continue to follow closely prognosis is guarded On 05/05/2023 patient is resting in bed on BiPAP. Patient received hemodialysis yesterday. Patient to receive additional hemodialysis today. Current vital signs temp 96.1, heart rate 92, blood pressure 127/75. Currently satting 94% on BiPAP 50% On 05/06/2023 patient was seen and examined on the medical floor he is somnolent responsive to stimuli he is maintained on BiPAP and is receiving hemodialysis, vital exam reveals a temperature of 97.3 pulse 91 respiration 16 blood pressure 104/65 pulse ox 94% on BiPAP with FiO2 of 40% white blood count is 8.5 hemoglobin 13.3 platelet count 235 BUN 100 creatinine 4.5 Objective - Vital Signs Vital signs: Vital Signs Temp 99.2 F 05/06/23 09:43 Pulse 92 05/06/23 09:43 Resp 18 05/06/23 09:43 BP 113/77 05/06/23 09:43 Pulse Ox 91 L 05/06/23 09:43 FiO2 40 05/06/23 09:43 Intake & Output 05/05/23 05/06/23 05/06/23 18:59 06:59 18:59 Intake Total 420 10 Output Total 1475 20 Balance -1055 -10 Intake: IV 20 10 Invasive Line 4 20 10 Oral 0 Hemodialysis 400 Output: Urine 75 20 Hemodialysis 1400 Other: Voiding Method Indwelling Catheter Indwelling Catheter - Exam Head normocephalic Neck supple Lungs clear to auscultation bilaterally no wheezing or crackles Heart regular rate and rhythm S1-S2, no rub or gallop Abdomen is soft nontender nondistended positive bowel sounds no hepatosplenomegaly Extremities no edema Neuro alert and orientated to 3. Intermittent confusion - Labs CBC & Chem 7: 05/06/23 07:11 05/06/23 07:11 Labs: Abnormal Lab Results - Last 24 Hours (Table) 05/05/23 05/05/23 05/05/23 Range/Units 11:22 16:43 20:12 Neutrophils # (1.3-7.7) k/uL Lymphocytes # (1.0-4.8) k/uL Sodium (137-145) mmol/L Chloride (98-107) mmol/L Carbon Dioxide (22-30) mmol/L BUN (9-20) mg/dL Creatinine (0.66-1.25) mg/dL Glucose (74-99) mg/dL POC Glucose (mg/dL) 150 H 172 H 199 H (70-110) mg/dL Calcium (8.4-10.2) mg/dL Phosphorus (2.5-4.5) mg/dL AST (17-59) U/L Total Protein (6.3-8.2) g/dL Albumin (3.5-5.0) g/dL 05/06/23 05/06/23 05/06/23 Range/Units 06:16 07:11 07:11 Neutrophils # 7.9 H (1.3-7.7) k/uL Lymphocytes # 0.3 L (1.0-4.8) k/uL Sodium 134 L (137-145) mmol/L Chloride 96 L (98-107) mmol/L Carbon Dioxide 18 L (22-30) mmol/L BUN 100 H (9-20) mg/dL Creatinine 4.55 H (0.66-1.25) mg/dL Glucose 299 H (74-99) mg/dL POC Glucose (mg/dL) 307 H (70-110) mg/dL Calcium 8.2 L (8.4-10.2) mg/dL Phosphorus 9.6 H* (2.5-4.5) mg/dL AST 16 L (17-59) U/L Total Protein 5.7 L (6.3-8.2) g/dL Albumin 3.1 L (3.5-5.0) g/dL Assessment and Plan Assessment: 1. Acute hypoxic respiratory failure secondary to acute CHF, pseudomonas pneumonia and Covid infection 2. Acute renal failure due to ATN from hypotension. On 05/04/2023 patient started on hemodialysis received hemodialysis 3. Hypovolemic shock requiring vasopressor support, resolved 4. Recent Pseudomonas pneumonia. Patient was treated outpatient 5. Increased confusion 6. History of paroxysmal atrial fibrillation. Patient did require IV Cardizem. Rate has improved 7. Diabetes mellitus type 2 8. COVID-19 pneumonia diagnosed outpatient 9. Thrombocytopenia likely secondary from antibiotics in recent illness 10. Ischemic cardiomyopathy 11. Moderate aortic stenosis and pulmonary hypertension 12. History of coronary artery bypass graft surgery 13. History of hypothyroidism DVT prophylaxis eliquis GI prophylaxis Protonix Patient maintained on IV antibiotics Nephrology, pulmonary, infectious and cardiology services are following BiPAP ordered per pulmonary Neurology services consulted for confusion Repeat labs ordered Prevacid
[2023-05-06 20:05] LABS: Glucose,Whole Blood 170 mg/dL (70-110)
[2023-05-06] MEDS: ATORVASTATIN 40 MG TAB PO SCH (20:17)
--- NOTE | 2023-05-06 22:03 | P.PN ---
Subjective Progress Note Date: 05/04/23 Principal diagnosis: Pneumonia Patient is a 77-year male with multiple comorbidities including COPD diastolic heart failure was recently diagnosed with Pseudomonas pneumonia, patient was subsequently diagnosed with a Covid 19 on 04/23/2023 [facility] has been brought into the hospital for shortness of breath A. fib with RVR and did have hypotension , pt did got right femoral dialysis catheter placment on 05/04/23 on today's evaluation that is 05/04/2023, the patient remains to be afebrile , the patient is BiPAP dependent , Fio2 is at 40% , patient is lethargic and not a very good historian no vomiting or diarrhea has been reported, pt did got di alyzed with removal of 1L of fluid per nursing staff Objective - Vital Signs Vital signs: Vital Signs Temp 96.7 F L 05/04/23 07:41 Pulse 76 05/04/23 07:41 Resp 12 05/04/23 07:41 BP 149/79 05/04/23 07:41 Pulse Ox 98 05/04/23 07:41 FiO2 40 05/04/23 08:50 Intake & Output 05/03/23 05/04/23 05/04/23 18:59 06:59 18:59 Intake Total 0 Output Total 450 780 125 Balance -450 -780 -125 Weight 105 kg 81 kg Intake: Oral 0 Output: Urine 450 780 125 Male - External 300 Other: Voiding Method Diaper Indwelling Catheter Indwelling Catheter Incontinent - Labs CBC & Chem 7: 05/06/23 07:11 05/06/23 07:11 Labs: Abnormal Lab Results - Last 24 Hours (Table) 05/03/23 05/03/23 05/03/23 Range/Units 06:44 12:40 16:24 RBC (4.30-5.90) m/uL Hgb (13.0-17.5) gm/dL Hct (39.0-53.0) % Neutrophils # (1.3-7.7) k/uL Lymphocytes # (1.0-4.8) k/uL Carbon Dioxide 20.8 L (21.6-31.8) mmol/L Anion Gap 17.20 H (4.00-12.00) mmol/L BUN 99.0 H (9.0-27.0) mg/dL Creatinine 4.5 H (0.6-1.5) mg/dL Est GFR (CKD-EPI) 13 L (>=60) BUN/Creatinine Ratio 22.00 H (12.00-20.00) Ratio Glucose 370 H (70-110) mg/dL POC Glucose (mg/dL) 250 H 190 H (70-110) mg/dL AST 12 L (14-35) U/L Total Protein 5.6 L (6.2-8.2) d/dL Albumin 3.0 L (3.8-4.9) d/dL Albumin/Globulin Ratio 1.15 L (1.60-3.17) Ratio 05/03/23 05/04/23 05/04/23 Range/Units 20:08 03:43 03:43 RBC 3.76 L (4.30-5.90) m/uL Hgb 12.0 L (13.0-17.5) gm/dL Hct 37.0 L (39.0-53.0) % Neutrophils # 9.8 H (1.3-7.7) k/uL Lymphocytes # 0.2 L (1.0-4.8) k/uL Carbon Dioxide (21.6-31.8) mmol/L Anion Gap (4.00-12.00) mmol/L BUN 119 H* (9.0-27.0) mg/dL Creatinine 4.96 H (0.6-1.5) mg/dL Est GFR (CKD-EPI) (>=60) BUN/Creatinine Ratio (12.00-20.00) Ratio Glucose 110 H (70-110) mg/dL POC Glucose (mg/dL) 119 H (70-110) mg/dL AST 14 L (14-35) U/L Total Protein 5.6 L (6.2-8.2) d/dL Albumin 2.9 L (3.8-4.9) d/dL Albumin/Globulin Ratio (1.60-3.17) Ratio Assessment and Plan (1) COVID-19 Current Visit: Yes Status: Acute Code(s): U07.1 - COVID-19 SNOMED Code(s): 810618837 (2) Pneumonia Current Visit: Yes Status: Acute Code(s): J18.9 - PNEUMONIA, UNSPECIFIED ORGANISM SNOMED Code(s): 550385123 Plan: 1patient was in the hospital with increasing shortness of breath which is likely multifactorial possibly related to underlying worsening of diastolic heart failure from A-fib with RVR clinically doubt any worsening pneumonia the patient did have positive COVID 19 and may be of possibly contributing however chest x-ray was negative for any pneumonia patient not running any fever did have a normal white count with mild lymphopenia. Continue the current supportive treatment 2-Patient has received adequate antibiotics for underlying pseudomonas pneumonia , with repeat sputum showing Susana more likely colonizer. 3- Pt with worsening respiratory status likely attributed to underlying fluid overload as the patient did have a worsening of his kidney function, pt got dialysis catheter and got dialyzed Time with Patient: Less than 30
--- NOTE | 2023-05-06 22:05 | P.PN ---
Subjective Progress Note Date: 05/05/23 Principal diagnosis: Pneumonia Patient is a 77-year male with multiple comorbidities including COPD diastolic heart failure was recently diagnosed with Pseudomonas pneumonia, patient was subsequently [facility] a Cov[facility] has been brought into the hospital for shortness of breath A. fib with RVR and did have hypotension , pt did got right femoral dialysis catheter placment on 05/04/23 on today's evaluation that is 05/05/2023, the patient continues to be afebrile , the patient remains to be BiPAP dependent , Fio2 is at 40% , patient is lethargic and not a very good historian no vomiting or diarrhea has been reported, pt did got dialyzed again today with removal of 1L of fluid per nursing staff Objective - Vital Signs Vital signs: Vital Signs Temp 98.0 F 05/05/23 19:28 Pulse 94 05/05/23 19:28 Resp 21 05/05/23 19:28 BP 136/75 05/05/23 19:28 Pulse Ox 98 05/05/23 19:28 FiO2 40 05/05/23 19:28 Intake & Output 05/05/23 05/05/23 05/06/23 06:59 18:59 06:59 Intake Total 420 10 Output Total 251 1475 Balance -251 -1055 10 Intake: IV 20 10 Invasive Line 4 20 10 Oral 0 Hemodialysis 400 Output: Urine 250 75 Stool 1 Hemodialysis 1400 Other: Voiding Method Indwelling Catheter Indwelling Catheter Indwelling Catheter - Exam Elderly male lying in bed in mild distress currently on the BiPAP Coarse breath sounds bilaterally abd soft no tenderness - Labs CBC & Chem 7: 05/06/23 07:11 05/06/23 07:11 Labs: Abnormal Lab Results - Last 24 Hours (Table) 05/05/23 05/05/23 05/05/23 Range/Units 06:24 11:22 16:43 POC Glucose (mg/dL) 153 H 150 H 172 H (70-110) mg/dL Assessment and Plan (1) COVID-19 Current Visit: Yes Status: Acute Code(s): U07.1 - COVID-19 SNOMED Code(s): 300631082 (2) Pneumonia Current Visit: Yes Status: Acute Code(s): J18.9 - PNEUMONIA, UNSPECIFIED ORGANISM SNOMED Code(s): 002399832 Plan: 1patient was in the hospital with increasing shortness of breath which is likely multifactorial possibly related to underlying worsening of diastolic heart failure from A-fib with RVR clinically doubt any worsening pneumonia the patient did have positive COVID 19 and may be of possibly contributing however chest x-ray was negative for any pneumonia patient not running any fever did have a normal white count with mild lymphopenia. Continue the current supportive treatment 2-Patient has received adequate antibiotics for underlying pseudomonas pneumonia , with repeat sputum showing Susana more likely colonizer. 3- Pt with worsening respiratory status likely attributed to underlying fluid overload as the patient did have a worsening of his kidney function, pt got dialysis catheter and got dialyzed today and yesterday 4- will monitor closely off antibiotics Time with Patient: Less than 30
--- NOTE | 2023-05-06 22:06 | P.PN ---
Subjective Progress Note Date: 05/06/23 Principal diagnosis: Pneumonia Patient is a 77-year male with multiple comorbidities including COPD diastolic heart failure was recently diagnosed with Pseudomonas pneumonia, patient was subsequently diagnosed with a Covid 19 on 04/23/2023 at the local [facility] has been brought into the hospital for shortness of breath A. fib with RVR and did have hypotension , pt did got right femoral dialysis catheter placment on 05/04/23 on today's evaluation that is 05/06/2023, the patient is afebrile , the patient remains to be BiPAP dependent , Fio2 is stable at 40% , patient is lethargic and unable to provide history , no vomiting or diarrhea has been reported, pt d id got dialyzed again today with removal of 1L of fluid per dialysis staff Objective - Vital Signs Vital signs: Vital Signs Temp 98.4 F 05/06/23 11:35 Pulse 45 L 05/06/23 11:35 Resp 15 05/06/23 11:35 BP 111/69 05/06/23 11:35 Pulse Ox 98 05/06/23 11:35 FiO2 40 05/06/23 11:35 Intake & Output 05/05/23 05/06/23 05/06/23 18:59 06:59 18:59 Intake Total 420 10 Output Total 1475 20 Balance -1055 -10 Intake: IV 20 10 Invasive Line 4 20 10 Oral 0 Hemodialysis 400 Output: Urine 75 20 Hemodialysis 1400 Other: Voiding Method Indwelling Catheter Indwelling Catheter Indwelling Catheter - Exam Elderly male lying in bed in mild distress currently on the BiPAP Coarse breath sounds bilaterally abd soft no tenderness - Labs CBC & Chem 7: 05/06/23 07:11 05/06/23 07:11 Labs: Abnormal Lab Results - Last 24 Hours (Table) 05/05/23 05/05/23 05/06/23 Range/Units 16:43 20:12 06:16 Neutrophils # (1.3-7.7) k/uL Lymphocytes # (1.0-4.8) k/uL Sodium (137-145) mmol/L Chloride (98-107) mmol/L Carbon Dioxide (22-30) mmol/L BUN (9-20) mg/dL Creatinine (0.66-1.25) mg/dL Glucose (74-99) mg/dL POC Glucose (mg/dL) 172 H 199 H 307 H (70-110) mg/dL Calcium (8.4-10.2) mg/dL Phosphorus (2.5-4.5) mg/dL AST (17-59) U/L Total Protein (6.3-8.2) g/dL Albumin (3.5-5.0) g/dL 05/06/23 05/06/23 05/06/23 Range/Units 07:11 07:11 11:17 Neutrophils # 7.9 H (1.3-7.7) k/uL Lymphocytes # 0.3 L (1.0-4.8) k/uL Sodium 134 L (137-145) mmol/L Chloride 96 L (98-107) mmol/L Carbon Dioxide 18 L (22-30) mmol/L BUN 100 H (9-20) mg/dL Creatinine 4.55 H (0.66-1.25) mg/dL Glucose 299 H (74-99) mg/dL POC Glucose (mg/dL) 163 H (70-110) mg/dL Calcium 8.2 L (8.4-10.2) mg/dL Phosphorus 9.6 H* (2.5-4.5) mg/dL AST 16 L (17-59) U/L Total Protein 5.7 L (6.3-8.2) g/dL Albumin 3.1 L (3.5-5.0) g/dL Assessment and Plan (1) COVID-19 Current Visit: Yes Status: Acute Code(s): U07.1 - COVID-19 SNOMED Code(s): 295330771 (2) Pneumonia Current Visit: Yes Status: Acute Code(s): J18.9 - PNEUMONIA, UNSPECIFIED ORGANISM SNOMED Code(s): 607601484 Plan: 1patient was in the hospital with increasing shortness of breath which is likely multifactorial possibly related to underlying worsening of diastolic heart failure from A-fib with RVR clinically doubt any worsening pneumonia the patient did have positive COVID 19 and may be of possibly contributing however chest x-ray was negative for any pneumonia patient not running any fever did have a normal white count with mild lymphopenia. Continue the current supportive treatment 2-Patient has received adequate antibiotics for underlying pseudomonas pneumonia , with repeat sputum showing Susana more likely colonizer. 3- Pt with worsening respiratory status likely attributed to underlying fluid overload as the patient did have a worsening of his kidney function, pt got dialysis catheter and got dialyzed daily over the last 3 days 4- will continue to monitor closely off antibiotics at this point Time with Patient: Less than 30
[2023-05-07] MEDS: methylPREDNISolone SOD SUCCI 40 MG/ML 1 ML VIAL IV SCH ×3 (00:16→20:19)
[2023-05-07] MEDS: LORazepam 2 MG/ML INJ IV PRN ×2 (03:04→07:46)
[2023-05-07 03:22] LABS: Glucose,Whole Blood 241 mg/dL (70-110)
--- NOTE | 2023-05-07 05:39 | XR ---
EXAM: XR Chest, 1 View CLINICAL HISTORY: ITS.REASON XR Reason: sob TECHNIQUE: Frontal view of the chest. COMPARISON: 05/04/23 FINDINGS: Lungs: Suspect minimal interstitial opacities in both lungs, may suggest persistent pulmonary edema. Pleural space: Unremarkable. No pneumothorax. Heart: Cardiomegaly. Bones/joints: Unremarkable. Vasculature: Calcified aorta. Tubes, lines and devices: Sternal wires, left PICC and mediastinal clips are again noted. IMPRESSION: No substantial change.
[2023-05-07] MEDS: INSULIN DETEMIR (LEVEMIR) 100 UNIT/ML SYR SQ SCH ×2 (06:02→20:56)
[2023-05-07] MEDS: PANTOPRAZOLE 40 MG TABLET PO SCH (06:02)
[2023-05-07] MEDS: MIDODRINE 5 MG TAB PO SCH ×3 (06:02→17:14)
[2023-05-07] MEDS: INSULIN ASPART (NovoLOG) 100 UNIT/ML VIAL SQ SCH ×7 (06:02→20:55)
[2023-05-07 06:13] LABS: Glucose,Whole Blood 282 mg/dL (70-110)
[2023-05-07] MEDS: ENOXAPARIN 100 MG/ML SYRINGE SQ SCH (07:46)
[2023-05-07] MEDS: SYMBICORT 160-4.5 MCG INHALER INHALATION SCH ×2 (08:18→19:53)
[2023-05-07] MEDS: ALBUTEROL HFA INHALER INHALATION SCH ×4 (08:18→19:53)
[2023-05-07 09:26] LABS: Basophils % (A) 0 %; Eosinophils % (A) 0 %; HCT 43.7 % (39.0-53.0); HGB 13.6 gm/dL (13.0-17.5); Hypochromasia Slight; Lymphocytes # (A) 0.3 k/uL (1.0-4.8); Lymphocytes % (A) 3 %; MCH 30.6 pg (25.0-35.0); MCHC 31.1 g/dL (31.0-37.0); MCV 98.1 fL (80.0-100.0); Monocytes # (A) 0.3 k/uL (0-1.0); Monocytes % (A) 3 %; Neutrophils # (A) 10.6 k/uL (1.3-7.7); Neutrophils % (A) 94 %; Platelet Count 216 k/uL (150-450); Poikilocytosis Slight; RBC 4.46 m/uL (4.30-5.90); RDW 15.2 % (11.5-15.5); WBC 11.2 k/uL (3.8-10.6)
[2023-05-07 09:45] LABS: ALT 19 U/L (4-49); AST 15 U/L (17-59); Alkaline Phosphatase 70 U/L (38-126); Anion Gap 19 mmol/L; Blood Urea Nitrogen 78 mg/dL (9-20); Calcium 8.1 mg/dL (8.4-10.2); Carbon Dioxide 18 mmol/L (22-30); Chloride 96 mmol/L (98-107); Glucose 296 mg/dL (74-99); Potassium 5.3 mmol/L (3.5-5.1); Sodium 133 mmol/L (137-145); Total Bilirubin 1.3 mg/dL (0.2-1.3); Total Protein 5.6 g/dL (6.3-8.2)
[2023-05-07 09:51] LABS: African American GFR (CKD) 14 (>60 ml/min/1.73 sqM); Non-African American GFR(CKD) 12 (>60 ml/min/1.73 sqM)
--- NOTE | 2023-05-07 10:59 | P.PN ---
Subjective Patient is seen in follow-up for acute kidney injury on chronic kidney disease. Started on hemodialysis 05/04/2023. On BiPAP. Oliguric. No problems with dialysis yesterday. Sitter at bedside. Vital signs are stable. General: Confused. HEENT: On BiPAP. LUNGS: Scattered rhonchi. HEART: Rate and Rhythm are regular. ABDOMEN: No distention. EXTREMITITES: No edema. Objective - Vital Signs Vital signs: Vital Signs Temp 98.3 F 05/07/23 07:49 Pulse 115 H 05/07/23 07:49 Resp 23 05/07/23 07:49 BP 128/78 05/07/23 07:49 Pulse Ox 94 L 05/07/23 07:49 FiO2 40 05/07/23 08:16 Intake & Output 05/06/23 05/07/23 05/07/23 18:59 06:59 18:59 Intake Total 500 Output Total 1500 40 Balance -1000 -40 Weight 100.4 kg Intake: Hemodialysis 500 Output: Urine 40 Hemodialysis 1500 Other: Voiding Method Indwelling Catheter # Bowel Movements 1 1 - Labs CBC & Chem 7: 05/07/23 08:52 05/07/23 08:52 Labs: Abnormal Lab Results - Last 24 Hours (Table) 05/06/23 05/06/23 05/06/23 Range/Units 11:17 16:24 20:03 WBC (3.8-10.6) k/uL Neutrophils # (1.3-7.7) k/uL Lymphocytes # (1.0-4.8) k/uL Sodium (137-145) mmol/L Potassium (3.5-5.1) mmol/L Chloride (98-107) mmol/L Carbon Dioxide (22-30) mmol/L BUN (9-20) mg/dL Glucose (74-99) mg/dL POC Glucose (mg/dL) 163 H 161 H 170 H (70-110) mg/dL Calcium (8.4-10.2) mg/dL AST (17-59) U/L Total Protein (6.3-8.2) g/dL Albumin (3.5-5.0) g/dL 05/07/23 05/07/23 05/07/23 Range/Units 03:18 06:10 08:52 WBC 11.2 H (3.8-10.6) k/uL Neutrophils # 10.6 H (1.3-7.7) k/uL Lymphocytes # 0.3 L (1.0-4.8) k/uL Sodium (137-145) mmol/L Potassium (3.5-5.1) mmol/L Chloride (98-107) mmol/L Carbon Dioxide (22-30) mmol/L BUN (9-20) mg/dL Glucose (74-99) mg/dL POC Glucose (mg/dL) 241 H 282 H (70-110) mg/dL Calcium (8.4-10.2) mg/dL AST (17-59) U/L Total Protein (6.3-8.2) g/dL Albumin (3.5-5.0) g/dL 05/07/23 Range/Units 08:52 WBC (3.8-10.6) k/uL Neutrophils # (1.3-7.7) k/uL Lymphocytes # (1.0-4.8) k/uL Sodium 133 L (137-145) mmol/L Potassium 5.3 H (3.5-5.1) mmol/L Chloride 96 L (98-107) mmol/L Carbon Dioxide 18 L (22-30) mmol/L BUN 78 H (9-20) mg/dL Glucose 296 H (74-99) mg/dL POC Glucose (mg/dL) (70-110) mg/dL Calcium 8.1 L (8.4-10.2) mg/dL AST 15 L (17-59) U/L Total Protein 5.6 L (6.3-8.2) g/dL Albumin 3.0 L (3.5-5.0) g/dL Assessment and Plan Plan: Assessment: 1. Acute kidney injury secondary to hemodynamic ATN and cardiorenal syndrome. Renal function worsen. Oliguric. Creatinine 4.96 dated 05/04/2023. Started on dialysis 05/04/2023. Has femoral catheter. 2. Chronic kidney disease stage IIIB with baseline creatinine 1.3-1.5 secondary to diabetic kidney disease. 3. Acute on chronic systolic CHF with ejection fraction of 30-35% with moderate tricuspid regurgitation. 4. Pneumonia maintained on antibiotics. Also tested positive for Covid-19 on 04/19/2023. 5. Volume overload. 6. Acute hypoxic respiratory failure. 7. Hypervolemic hyponatremia. 8. Diabetes mellitus. 9. A. fib with RVR maintained on anticoagulation and metoprolol. Cardiology following. 10. Hypertension with chronic kidney disease. Stable. 11. Hyperphosphatemia secondary to acute kidney injury. Add binder once able to tolerate oral meds. Expect improvement postdialysis as well. 12. Metabolic acidosis secondary to acute kidney injury. Expect improvement postdialysis. Unable to take oral meds at this time. Plan: Hemodialysis today and again tomorrow. Blood sugar control. Maintain Demadex. Monitor for renal recovery. Wean FiO2.
[2023-05-07 11:43] LABS: ABG Base Excess -1.6 mmol/L; ABG HCO3 24 mmol/L (21-25); ABG Oxygen Saturation 94.3 % (94-97); ABG PCO2 41 mmHg (35-45); ABG PH 7.37 (7.35-7.45); ABG PO2 74 mmHg (83-108); ABG TCO2 25 mmol/L (19-24); Allen Test Performed? Yes
[2023-05-07 11:48] LABS: INR 1.2 (<1.2); Prothrombin Time 11.9 sec (9.0-12.0)
[2023-05-07 11:53] LABS: Glucose,Whole Blood 265 mg/dL (70-110)
--- NOTE | 2023-05-07 13:34 | CT ---
EXAMINATION TYPE: CT brain wo con DATE OF EXAM: 05/07/2023 COMPARISON: 05/01/2023 HISTORY: 77-year-old male confusion, ams TECHNIQUE: Examination was done in axial plane without intravenous contrast. Coronal and sagittal r econstructions performed. CT DLP: 1184.4 mGycm Automated exposure control for dose reduction was used. FINDINGS: There is no evidence of acute intracranial hemorrhage, acute ischemic changes, mass, mass-effect, or extra-axial fluid collection. There is no effacement of cerebral sulci or basal subarachnoid cister ns. There is no hydrocephalus. There is no midline shift. Farnsworth-white matter distinction is preserv ed. There is moderate generalized supratentorial volume loss. Secondary sulcal prominence and mild ventri cular prominence from central volume loss. Mild to moderate patchy white matter hypodensities in post erior hemispheres. Benign basal ganglionic calcifications on the right. Moderate atherosclerotic calc ifications in both carotid siphons. Prominent leftward nasal septal deviation. Moderate mucosal thickening right ethmoid air cells. Orbit s and globes are intact. Mastoid air cells show some opacification inferiorly on the left. IMPRESSION: 1. Moderate generalized atrophy and mild to moderate patchy burden of chronic small vessel ischemic d isease. No acute intracranial abnormality seen. 2. Some fluid in the inferior left mastoid air cells. Correlate for any mastoid pain to exclude masto iditis. 3. Moderate chronic right ethmoid sinus disease. Prominent leftward nasal septal deviation.
[2023-05-07] MEDS: METOPROLOL SUCCINATE (ER) 50 MG TAB.ER.24H PO SCH (13:36)
[2023-05-07] MEDS: CHOLECALCIFEROL 25 MCG (1000 IU) TABLET PO SCH (13:36)
[2023-05-07] MEDS: LEVOTHYROXINE 125 MCG TAB PO SCH (13:36)
[2023-05-07] MEDS: ASCORBIC ACID 500 MG TAB PO SCH (13:36)
[2023-05-07] MEDS: LEVOTHYROXINE 112 MCG TAB PO SCH (13:36)
[2023-05-07] MEDS: TORSEMIDE 20 MG TAB PO SCH (13:37)
[2023-05-07] MEDS: ZINC SULFATE 220 MG CAP PO SCH (13:37)
[2023-05-07] MEDS: CYANOCOBALAMIN 500 MCG TAB PO SCH (13:37)
[2023-05-07] MEDS: NYSTATIN 100,000 UNIT/ML SUSP 500,000 UNIT/5 ML CUP PO SCH ×4 (13:37→20:56)
[2023-05-07] MEDS: GABAPENTIN 100 MG CAP PO SCH ×3 (13:38→20:56)
--- NOTE | 2023-05-07 13:43 | P.PN ---
Subjective Progress Note Date: 05/07/23 Patient was seen and evaluated on 04/27/2023, remains in the ICU, remains on 4 L nasal cannula, remains on Cardizem drip at 10 mg per hour remains on norepinephrine at 0.0-3 mcg/kg/m, IV fluids at KVO, patient is sleeping and dressing this morning, he had episodes of anxiety yesterday. Under control, pat ient is maintained on Xanax. Cardiology is planning to cut down his Cardizem down to 5 mg per hour, hopefully with good taper and possibly discontinue norepinephrine today. Overall the patient is doing much better today compared to yesterday. WBC count is 6 hemoglobin is 10.8 electrolytes are normal BUN is 51 creatinine 2.08, improving compared to his admission creatinine of 2.21. Chest x-ray is showing nonspecific interstitial bilateral changes patient is known to have history of nonspecific interstitial pneumonitis. And chronic diastolic congestive heart failure Reevaluated today on 04/28/2023, patient is having more symptoms of cough wheezing shortness of breath and chest tightness. Hence I started the patient on relatively high-dose of steroids. Patient is now off Cardizem, he is off norepinephrine, continues to cough and wheeze and continues to have chest tightness his CBC is relatively normal in the class abnormal BUN is 47 creatinine 2.31, slightly worse compared to yesterday. Chest x-ray showed minimal interstitial edema and pulmonary vascular congestion patient is on diuretics, he is also on bronchodilators, and steroids were added today The patient is seen today 04/29/2023 in follow-up in the intensive care unit. He is currently sitting up in bed. Awake and alert in no acute distress. Maintaining O2 saturations in the 90s on 3 L/m per nasal cannula. He's been afebrile. Norepinephrine has been discontinued. Normal saline at KVO. Chest x-ray reveals left lower lobe infiltrate. Atypical pulmonary edema. Few curly B-lines on the right. Mild congestive heart failure. He remains in atrial fibrillation with a controlled ventricular rate. Blood cultures reveal no growth. Sputum culture revealed no growth. White count 2.5. Hemoglobin 10.0. Platelets 43,000. Sodium 128. Potassium 4.3. Bicarb 21. BUN 54. Creatinine 2.36. Glucose 316. He is continued on Symbicort, albuterol, IV Solu-Medrol. Anticoagulated with Eliquis. Antibiotics in the form of cefepime. Remains on oral diuretics. Metoprolol for rate control. Progress note dated 04/30/2023. The patient is seen today in room 467. Currently, he's in no distress. He is getting oxygen at 4 L by nasal cannula. He's getting a KVO saline IV, which I told the nurse, can be discontinued. The patient is not having any complaints, or distress. White count is 3.7, hemoglobin 9.6, hematocrit 29.3, and platelet count a 67,000. Sodium 133, potassium 4.6, chlorides 99, CO2 22, BUN 66, and creatinine 3.2. Sputum was positive for Susana. Blood cultures are negative. Chest x-ray from yesterday suggests some mild congestive heart failure. Progress note dated 05/01/2023. The patient is seen today in room 467. He seems to be doing relatively well, and is very comfortable on 3 L. He's not receiving any IV fluids. He continues on cefepime. He has no particular complaints today. White count is 4.9, hemoglobin 11, hematocrit 32.8, and platelet count of 78,000. Sodium 133, potassium 4.3, chlorides 99, CO2 24, anion gap 10, BUN 84, and creatinine 3.46. Microbiology is negative other than some Susana in his sputum. Brain CT revealed no abnormality of significance. Chest x-ray showed improving features of mild CHF. Progress note dated 05/03/2023. The patient is seen today in room 376. His respiratory status has clearly declined. The patient's currently on 6 L of oxygen, with saturations between 88 and 89%. The patient's getting saline at 10 mL an hour. I ordered the patient be placed on BiPAP, at 12 and 5, and 50%. For that reason, the patient is tra nsferred down to 3 S. floor. The patient's very lethargic, shouting out words. Doesn't seem to be making much sense. Chest x-ray shows fluid overload. White count was 5.26, hemoglobin 11.4, hematocrit 36.3, with a platelet count of 135,000. Sodium 138, potassium 5.1, chlorides 100, CO2 was 21, anion gap was 17, BUN 99, and creatinine 4.5. Sputum and blood cultures have been negative. Progress note dated 05/04/2023. The patient is seen today in room 376. He was moved down to the third floor, because we recommended BiPAP therapy. Currently, his BiPAP settings are 12 and 5 and 40%. We have ordered a portable chest x-ray. The patient will have a temporary hemodialysis catheter placed, and he'll have hemodialysis today. White count is 10.4, hemoglobin 12, hematocrit 37, and platelet count 177,000. Sodium 139, potassium 4.5, chlorides 102, CO2 26, anion gap 11, BUN 119, and creatinine 4.96. Glucose 110. Albumin is 2.9. Progress note dated 05/05/2023. 77-year-old male seen today in room 377. The patient was moved down to the third floor, for BiPAP therapy. Currently, he is at 12/5 and 40%. In addition, hemodialysis catheter was placed, and he had hemodialysis on May 04 and May 05, with 1 L being removed at both sessions. His most recent chest x-ray, does show improvement. No new labs other than a glucose of 150. The patient's respiratory status appears to be reasonably stable. On today's evaluation of 05/06/2023, the patient is undergoing hemodialysis. At the same time, the patient is a BiPAP at a pressure of 12/5 cm of water with an FiO2 of 40%. Is quite comfortable on a BiPAP. On examination he does have some bronchospasm and wheezing. His generator tidal volume is 500 mL in his respiratory rate is around 13. He has a pulse ox of 98% on room air oxygen. The most recent chest x-ray from 05/05/2023 was reviewed and it shows cardiomegaly, postthoracotomy changes, otherwise no other acute abnormalities have been noted. The patient currently has a right femoral hemodialysis catheter in place. He is known to have CHF with fluid overload and is based on that LV function is around 20-25%. He has severe pulmonary hypertension based on previous echocardiograms. He has COPD, chronic kidney disease and currently is on hemodialysis, coronary artery disease with previous bypass surgery and previous coronary stenting, hyperlipidemia, hypothyroidism, chronic atrial fibrillation and previous history of gallstone pancreatitis. Most recent blood work shows inability count of 8.5 with a hemoglobin of 13.3 and a platelet count of 235. BUN is 100 and a creatinine of 4.5. Sodium is at 134. Cultures from the sputum from 04/27/2023 was positive for Susana albicans. Neurologically, encephalopathic. MRI of the brain showed cerebral atrophy and no evidence of any acute ischemic infarct. His EEG of the brain that was done on 05/02/2023 sh owed encephalopathy along with mild to moderate slowing consistent with toxic metabolic encephalopathy. There is no evidence of any seizure activity. On today's evaluation of 05/07/2023, the patient is very much encephalopathic. I think he deserves another neurologic evaluation with a concern of underlying stroke. Remains on a BiPAP and is unable to come off the BiPAP. He remains in a pressure of 12/5 cm of water with an FiO2 of 40%. The patient was taken completely off the BiPAP and he desaturated anemia to be placed back on the BiPAP. Noted the patient has not had any oral intake for the past 3-4 days. His blood gases showed a pH of 7.37 with a pCO2 of 41 and pO2 of 74. I performe d the blood gas to make sure the patient does not have any underlying hypercapnic encephalopathy or CO2 narcosis. The patient is tolerating the BiPAP fairly well. He is arousable. He squeezes my hands using his hand, motor function lower extremity is extremely weak and he barely able to wiggle his toes. He has a weak cough. No seizure activity has been noted. A repeat CAT scan of the brain was recommended and this was completed today that showed no acute intracranial abnormalities. There was generalized atrophy and mild to moderate patchy burden of chronic small vessel ischemic disease. There was also moderate chronic rhinitis marked sinus disease. EEG was ordered. Ammonia level was also ordered. Family the bedside and discussed the case with the daughter. Remains in atrial fibrillation. Remains on Lovenox 100 mg subcu every 24 hours. Objective - Vital Signs Vital signs: Vital Signs Temp 98.3 F 05/07/23 07:49 Pulse 115 H 05/07/23 07:49 Resp 23 05/07/23 07:49 BP 128/78 05/07/23 07:49 Pulse Ox 94 L 05/07/23 07:49 FiO2 40 05/07/23 08:16 Intake & Output 05/06/23 05/07/23 05/07/23 18:59 06:59 18:59 Intake Total 500 Output Total 1500 40 Balance -1000 -40 Weight 100.4 kg Intake: Hemodialysis 500 Output: Urine 40 Hemodialysis 1500 Other: Voiding Method Indwelling Catheter # Bowel Movements 1 1 - Exam No acute distress, a bit lethargic and confused. Currently on BiPAP. No c onversational dyspnea. No use of accessory muscles. HEENT examination is grossly unremarkable. Neck supple. Full range of motion. No adenopathy thyromegaly or neck vein distention. Cardiovascular examination reveals irregular rhythm and rate. S1-S2 normal. No S3 or S4. No discernible murmur noted. Heart rate is 61 bpm. Lungs reveal mild scattered rhonchi. No wheezes or crackles. Breath sounds are equal bilaterally. Saturations are 97 %, now on BiPAP. Abdomen soft bowel sounds are heard. No masses or tenderness. Extremities are intact. No cyanosis clubbing or edema. Ecchymosis noted to his right posterior thigh area. Skin is without rash or lesion. Neurologic examination is brief but nonfocal. Arousable, extremities and lower extremity is bilaterally, able to grab using his hands upon request. He will go back to sleep if left unstimulated. - Labs CBC & Chem 7: 05/07/23 08:52 05/07/23 08:52 Labs: Abnormal Lab Results - Last 24 Hours (Table) 05/06/23 05/06/23 05/06/23 Range/Units 11:17 16:24 20:03 WBC (3.8-10.6) k/uL Neutrophils # (1.3-7.7) k/uL Lymphocytes # (1.0-4.8) k/uL Sodium (137-145) mmol/L Potassium (3.5-5.1) mmol/L Chloride (98-107) mmol/L Carbon Dioxide (22-30) mmol/L BUN (9-20) mg/dL Glucose (74-99) mg/dL POC Glucose (mg/dL) 163 H 161 H 170 H (70-110) mg/dL Calcium (8.4-10.2) mg/dL AST (17-59) U/L Total Protein (6.3-8.2) g/dL Albumin (3.5-5.0) g/dL 05/07/23 05/07/23 05/07/23 Range/Units 03:18 06:10 08:52 WBC 11.2 H (3.8-10.6) k/uL Neutrophils # 10.6 H (1.3-7.7) k/uL Lymphocytes # 0.3 L (1.0-4.8) k/uL Sodium (137-145) mmol/L Potassium (3.5-5.1) mmol/L Chloride (98-107) mmol/L Carbon Dioxide (22-30) mmol/L BUN (9-20) mg/dL Glucose (74-99) mg/dL POC Glucose (mg/dL) 241 H 282 H (70-110) mg/dL Calcium (8.4-10.2) mg/dL AST (17-59) U/L Total Protein (6.3-8.2) g/dL Albumin (3.5-5.0) g/dL 05/07/23 Range/Units 08:52 WBC (3.8-10.6) k/uL Neutrophils # (1.3-7.7) k/uL Lymphocytes # (1.0-4.8) k/uL Sodium 133 L (137-145) mmol/L Potassium 5.3 H (3.5-5.1) mmol/L Chloride 96 L (98-107) mmol/L Carbon Dioxide 18 L (22-30) mmol/L BUN 78 H (9-20) mg/dL Glucose 296 H (74-99) mg/dL POC Glucose (mg/dL) (70-110) mg/dL Calcium 8.1 L (8.4-10.2) mg/dL AST 15 L (17-59) U/L Total Protein 5.6 L (6.3-8.2) g/dL Albumin 3.0 L (3.5-5.0) g/dL Assessment and Plan Plan: Encephalopathy, possibility of toxic metabolic encephalopathy. MRI of the brain has been negative other than atrophy and EEG is consistent with metabolic encephalopathy. The patient is currently on BiPAP. He has a sitter at the bedside and is undergoing hemodialysis. No significant agitation. A repeat CAT scan of the brain was done and showed moderate atrophy and chronic small vessel ischemic disease. No acute intracranial abnormalities. No seizure activity. C onsider metabolic encephalopathy. Consider Covid 19 related encephalopathy. No signs of any CO2 narcosis and the blood gas was noted. Chronic atrial fibrillation, patient presented with atrial fibrillation with RVR. Anticoagulated with Lovenox and Eliquis was held and the patient is unable to take oral medications. Acute exacerbation of chronic systolic congestive heart failure, ejection fraction 30-35% Acute exacerbation of COPD. COVID-19 infection. Diagnosis was established on 04/23/2023 Recent history of pneumonia secondary to pseudomonas aeruginosa, on cefepime. Moderate severe aortic stenosis with pulmonary hypertension. Chronic atrial fibrillation Chronic kidney disease stage III, with worsening renal function, requiring hemodialysis, beginning on May 04. Former smoker. History of coronary artery disease and previous CABG and stenting. Dyslipidemia. Hypothyroidism. Poor overall functional performance based on the above-mentioned multiple comorbidities. Plan: Hemodialysis was completed yesterday CAT scan of the brain today shows chronic changes without any acute abnormalities Perform an EEG Other neurologic evaluation and neurology will be consulted Monitor mental status unable to come off the BiPAP and the BiPAP will be continued for now Continue hemodialysis per nephrology Continue Lovenox Keep the patient nothing by mouth for now Reduce the Solu-Medrol to 20 mg IV every 12 hours Continue bronchodilators Monitor electrolytes We'll continue to follow Full CODE STATUS prognosis poor based above-mentioned comorbidities
--- NOTE | 2023-05-07 15:15 | P.PN ---
Subjective Progress Note Date: 05/07/23 Principal diagnosis: Pneumonia Patient is a 77-year male with multiple comorbidities including COPD diastolic heart failure was recently diagnosed with Pseudomonas pneumonia, patient was subsequently diagnosed with a Covid 19 on 04/23/2023 at the local residential has been brought into the hospital for shortness of breath A. fib with RVR and did have hypotension , pt did got right femoral dialysis catheter placment on 05/04/23 on today's evaluation that is 05/07/2023, the patient remains to be afebrile , the patient remains to be BiPAP dependent , Fio2 is stable at 40% , patient is lethargic and cannot provide provide history , no vomiting or diarrhea has been reported, no changes reported by the family the bedside Objective - Vital Signs Vital signs: Vital Signs Temp 98.3 F 05/07/23 11:46 Pulse 73 05/07/23 11:46 Resp 15 05/07/23 11:46 BP 102/78 05/07/23 11:46 Pulse Ox 95 05/07/23 11:46 FiO2 40 05/07/23 11:46 Intake & Output 05/06/23 05/07/23 05/07/23 18:59 06:59 18:59 Intake Total 500 Output Total 1500 40 Balance -1000 -40 Weight 100.4 kg 100.4 kg Intake: Hemodialysis 500 Output: Urine 40 Hemodialysis 1500 Other: Voiding Method Indwelling Catheter # Bowel Movements 1 1 - Exam Elderly male lying in bed in mild distress currently on the BiPAP Coarse breath sounds bilaterally abd soft no tenderness - Labs CBC & Chem 7: 05/07/23 08:52 05/07/23 08:52 Labs: Abnormal Lab Results - Last 24 Hours (Table) 05/06/23 05/06/23 05/07/23 Range/Units 16:24 20:03 03:18 WBC (3.8-10.6) k/uL Neutrophils # (1.3-7.7) k/uL Lymphocytes # (1.0-4.8) k/uL INR (<1.2) ABG pO2 (83-108) mmHg ABG Total CO2 (19-24) mmol/L Sodium (137-145) mmol/L Potassium (3.5-5.1) mmol/L Chloride (98-107) mmol/L Carbon Dioxide (22-30) mmol/L BUN (9-20) mg/dL Creatinine (0.66-1.25) mg/dL Glucose (74-99) mg/dL POC Glucose (mg/dL) 161 H 170 H 241 H (70-110) mg/dL Calcium (8.4-10.2) mg/dL AST (17-59) U/L Total Protein (6.3-8.2) g/dL Albumin (3.5-5.0) g/dL 05/07/23 05/07/23 05/07/23 Range/Units 06:10 08:52 08:52 WBC 11.2 H (3.8-10.6) k/uL Neutrophils # 10.6 H (1.3-7.7) k/uL Lymphocytes # 0.3 L (1.0-4.8) k/uL INR (<1.2) ABG pO2 (83-108) mmHg ABG Total CO2 (19-24) mmol/L Sodium 133 L (137-145) mmol/L Potassium 5.3 H (3.5-5.1) mmol/L Chloride 96 L (98-107) mmol/L Carbon Dioxide 18 L (22-30) mmol/L BUN 78 H (9-20) mg/dL Creatinine 4.39 H (0.66-1.25) mg/dL Glucose 296 H (74-99) mg/dL POC Glucose (mg/dL) 282 H (70-110) mg/dL Calcium 8.1 L (8.4-10.2) mg/dL AST 15 L (17-59) U/L Total Protein 5.6 L (6.3-8.2) g/dL Albumin 3.0 L (3.5-5.0) g/dL 05/07/23 05/07/23 05/07/23 Range/Units 11:14 11:39 11:47 WBC (3.8-10.6) k/uL Neutrophils # (1.3-7.7) k/uL Lymphocytes # (1.0-4.8) k/uL INR 1.2 H (<1.2) ABG pO2 74 L (83-108) mmHg ABG Total CO2 25 H (19-24) mmol/L Sodium (137-145) mmol/L Potassium (3.5-5.1) mmol/L Chloride (98-107) mmol/L Carbon Dioxide (22-30) mmol/L BUN (9-20) mg/dL Creatinine (0.66-1.25) mg/dL Glucose (74-99) mg/dL POC Glucose (mg/dL) 265 H (70-110) mg/dL Calcium (8.4-10.2) mg/dL AST (17-59) U/L Total Protein (6.3-8.2) g/dL Albumin (3.5-5.0) g/dL Assessment and Plan (1) COVID-19 Current Visit: Yes Status: Acute Code(s): U07.1 - COVID-19 SNOMED Code(s): 781060828 (2) Pneumonia Current Visit: Yes Status: Acute Code(s): J18.9 - PNEUMONIA, UNSPECIFIED ORGANISM SNOMED Code(s): 485813345 Plan: 1patient was in the hospital with increasing shortness of breath which is likely multifactorial possibly related to underlying worsening of diastolic heart failure from A-fib with RVR clinically doubt any worsening pneumonia the patient did have positive COVID 19 and may be of possibly contributing however chest x-ray was negative for any pneumonia patient not running any fever did have a normal white count with mild lymphopenia. Continue the current supportive treatment 2-Patient has received adequate antibiotics for underlying pseudomonas pneumonia , with repeat sputum showing Susana more likely colonizer. 3-patient did have worsening respiratory status likely attributed to underlying fluid overload as the patient did have a worsening of his kidney function, pt got dialysis catheter and got dialyzed daily over the last 3 days 4-patient white count is slightly up to 11.2 daily will monitor closely and will continue to monitor closely off antibiotics at this point Time with Patient: Less than 30
[2023-05-07 15:45] LABS: Hepatitis B Surface AB- Quant 3.5 mIU/mL
--- NOTE | 2023-05-07 16:47 | P.PN ---
Progress Note - Text Progress Note Date: 05/07/23 Record of a family meeting Today I had a prolonged meeting with patient's and 2 daughters, case was discussed in details. 2 issues were raised during this meeting 1. CODE STATUS was discussed in details and at this time family is still wanting full code 2. Nutrition status was discussed patient has not had any significant nutrition in the last 5-6 days, NG tube is not possible due to patient being on BiPAP, he did not tolerate Airvo with high flow oxygen this morning. Family is agreeable with PEG tube at this time, his will sign the consent for PEG tube, consultation for surgery was initiated.
[2023-05-07 16:53] LABS: Glucose,Whole Blood 160 mg/dL (70-110)
--- NOTE | 2023-05-07 19:04 | P.PN ---
Subjective Progress Note Date: 05/07/23 Patient was initially seen by Dr. Vance rAvizu appeared please refer to his note for details. Patient is a 77-year-old male with recent Covid infection, with worsening renal functions. EEG revealed mild to moderate encephalopathy. No seizures. MRI of the brain is negative. Patient was seen for a follow-up. Patient is laying in the bed. Patient appears obviously encephalopathic, very congested. He is getting hemodialysis at this time. He has oxygen by nasal cannula. He appears somewhat restless. Some of the workup during this hospital visit consisted of: Vital B12 most recent one is 380. But the day prior was 298. Folate is 17.90. Hemoglobin A1c is 9.4. Ammonia level is less than 9 TSH is 0.586. Seems she has acute on chronic kidney insufficiency and that her kidney function is trending up. CT of the head on 05/01/23 is reported as no acute intracranial process. Nonspecific white matter changes, likely seizure due to chronic small vessel ischemic disease. Routine EEG is abnormal. The background slowing is suggestive of mild to moderate encephalopathy likely due to toxic metabolic derangement. Otherwise there is no focal slowing, epileptiform discharges or seizure on the EEG. MRI the brain without is reported as no evidence of intracranial mass or acute/subacute infarct. Nonspecific white matter changes, likely secondary to small vessel ischemic disease. Mild cerebral atrophy with proportional dilation of the ventricular system. I personally reviewed the MRI and agree there is no acute subacute ischemia. Patient has not specific white matter changes on FLAIR. Objective - Vital Signs Vital signs: Vital Signs Temp 98.5 F 05/07/23 15:29 Pulse 90 05/07/23 15:29 Resp 18 05/07/23 15:29 BP 99/63 05/07/23 15:29 Pulse Ox 96 05/07/23 15:29 FiO2 40 05/07/23 15:43 Intake & Output 05/06/23 05/07/23 05/07/23 18:59 06:59 18:59 Intake Total 500 Output Total 1500 40 Balance -1000 -40 Weight 100.4 kg 100.4 kg Intake: Hemodialysis 500 Output: Urine 40 Hemodialysis 1500 Other: Voiding Method Indwelling Catheter Indwelling Catheter # Bowel Movements 1 1 - Exam Patient appears obviously encephalopathic. He is laying in the bed, undergoing dialysis. Patient appears congested with secretions noted with his respiration. He has oxygen by nasal cannula. He has bruises over his forearms and dorsum of the hands bilaterally. Also has a fairly large bruise/hematoma in the right adductor and hamstring region. He is trying to pull on his nasal cannular. Appears somewhat restless. Patient requiring very loud voice to open his eyes. He said "yeah" once. He did not answer if he has any headache. Patient's neck is supple. Pupils are equal, round and reacting. Gaze is midline. He does make eye contact at times. No gaze deviation. Face appears symmetric. Patient moves his arms equally, brings his hands to the nasal cannular frequently. Patient able to squeeze hands about 4 bilaterally. Also holds his hands up in the air and so on brings it down. No obvious focality noted. Patient has significant peripheral neuropathy, therefore not responding to painful stimuli with the toes. However he does withdraw his legs to painful stimulus on the thigh. Reflexes are diminished. No peripheral edema. - Labs CBC & Chem 7: 05/09/23 07:33 05/09/23 07:33 Labs: Abnormal Lab Results - Last 24 Hours (Table) 05/06/23 05/07/23 05/07/23 Range/Units 20:03 03:18 06:10 WBC (3.8-10.6) k/uL Neutrophils # (1.3-7.7) k/uL Lymphocytes # (1.0-4.8) k/uL INR (<1.2) ABG pO2 (83-108) mmHg ABG Total CO2 (19-24) mmol/L Sodium (137-145) mmol/L Potassium (3.5-5.1) mmol/L Chloride (98-107) mmol/L Carbon Dioxide (22-30) mmol/L BUN (9-20) mg/dL Creatinine (0.66-1.25) mg/dL Glucose (74-99) mg/dL POC Glucose (mg/dL) 170 H 241 H 282 H (70-110) mg/dL Calcium (8.4-10.2) mg/dL AST (17-59) U/L Total Protein (6.3-8.2) g/dL Albumin (3.5-5.0) g/dL 05/07/23 05/07/23 05/07/23 Range/Units 08:52 08:52 11:14 WBC 11.2 H (3.8-10.6) k/uL Neutrophils # 10.6 H (1.3-7.7) k/uL Lymphocytes # 0.3 L (1.0-4.8) k/uL INR 1.2 H (<1.2) ABG pO2 (83-108) mmHg ABG Total CO2 (19-24) mmol/L Sodium 133 L (137-145) mmol/L Potassium 5.3 H (3.5-5.1) mmol/L Chloride 96 L (98-107) mmol/L Carbon Dioxide 18 L (22-30) mmol/L BUN 78 H (9-20) mg/dL Creatinine 4.39 H (0.66-1.25) mg/dL Glucose 296 H (74-99) mg/dL POC Glucose (mg/dL) (70-110) mg/dL Calcium 8.1 L (8.4-10.2) mg/dL AST 15 L (17-59) U/L Total Protein 5.6 L (6.3-8.2) g/dL Albumin 3.0 L (3.5-5.0) g/dL 05/07/23 05/07/23 05/07/23 Range/Units 11:39 11:47 16:35 WBC (3.8-10.6) k/uL Neutrophils # (1.3-7.7) k/uL Lymphocytes # (1.0-4.8) k/uL INR (<1.2) ABG pO2 74 L (83-108) mmHg ABG Total CO2 25 H (19-24) mmol/L Sodium (137-145) mmol/L Potassium (3.5-5.1) mmol/L Chloride (98-107) mmol/L Carbon Dioxide (22-30) mmol/L BUN (9-20) mg/dL Creatinine (0.66-1.25) mg/dL Glucose (74-99) mg/dL POC Glucose (mg/dL) 265 H 160 H (70-110) mg/dL Calcium (8.4-10.2) mg/dL AST (17-59) U/L Total Protein (6.3-8.2) g/dL Albumin (3.5-5.0) g/dL Assessment and Plan Assessment: Altered mental status: Toxic-Metabolic Encephalopathy as well as due to recent Covid 19 infection. Was on High dose of Gabapentin and kidney trending up. MRI Brain is negative for acute/subacute stroke. EEG is mild to moderate encephalopathy but no seizure. Low normal finding B12 level in the high 200s low 300 Acute on chronic renal failure, requiring hemodialysis. Diabetes mellitus and his recent hemoglobin A1c is 9.4. Chronic atrial fibrillation patient presented with Mary miramontes with RVR currently on Eliquis Acute exacerbation of chronic congestive heart failure with ejection fraction of 30-35% Acute exacerbation of COPD COVID-19 infection and was positive close to the end of March 2023 Recent history of pneumonia secondary due to pseudomonas aeruginosa History of coronary artery disease status post CABG and stent Dyslipidemia Plan: Repeat CT head 05/07/2023 showed moderate generalized atrophy and mild to moderate patchy burden of chronic small vessel ischemic disease. No acute i ntracranial abnormality seen. Some fluid in the inferior left mastoid air cells. Correlate for any mastoid pain to exclude mastoiditis. Moderate chronic right ethmoid sinus disease. Prominent left word nasal septal deviation. I personally reviewed CT head, agree with the findings. Patient has been treated with vancomycin. Patient to undergo repeat EEG on 05/08/2023 Routine EEG is abnormal. The background slowing is suggestive of mild to moderate encephalopathy likely due to toxic metabolic derangement. Otherwise there is no focal slowing, epileptiform discharges or seizure on the EEG. MRI the brain without is reported as no evidence of intracranial mass or acute/subacute infarct. Nonspecific white matter changes, likely secondary to small vessel ischemic disease. Mild cerebral atrophy with proportional dilation of the ventricular system. For low-normal of vitamin B-12 patient was given vitamin B12 1000 g IM and continue after that by mouth Patient is on very high dose of gabapentin of 1200 mg 1 tablet 3 times a day and I initially decreased it to 300 and since he continues to be confused and kidney worsening will decrease it down to 100mg 1 tab tid. Not sure why he is on super high Gabapentin especially in elderly patient. Once mentation and kidney improves can go up on his Gabapentin dose. We'll defer the rest of the management to the primary and other specialists
[2023-05-07 20:17] LABS: Glucose,Whole Blood 174 mg/dL (70-110)
[2023-05-07] MEDS: DILTIAZEM 125 MG in SODIUM CHLORIDE 0.9% 100 ML IV SCH (20:51)
[2023-05-07] MEDS: ATORVASTATIN 40 MG TAB PO SCH (20:55)
[2023-05-08 04:43] LABS: Glucose,Whole Blood 269 mg/dL (70-110)
[2023-05-08 06:16] LABS: Glucose,Whole Blood 246 mg/dL (70-110)
[2023-05-08] MEDS: MIDODRINE 5 MG TAB PO SCH ×3 (06:19→15:38)
[2023-05-08] MEDS: PANTOPRAZOLE 40 MG TABLET PO SCH (06:19)
[2023-05-08] MEDS: INSULIN ASPART (NovoLOG) 100 UNIT/ML VIAL SQ SCH ×7 (06:26→21:07)
[2023-05-08] MEDS: INSULIN DETEMIR (LEVEMIR) 100 UNIT/ML SYR SQ SCH ×2 (06:26→20:52)
[2023-05-08] MEDS: SYMBICORT 160-4.5 MCG INHALER INHALATION SCH ×2 (08:48→20:53)
[2023-05-08] MEDS: ALBUTEROL HFA INHALER INHALATION SCH ×4 (08:48→20:53)
[2023-05-08] MEDS: ENOXAPARIN 100 MG/ML SYRINGE SQ SCH (09:04)
[2023-05-08] MEDS: CYANOCOBALAMIN 500 MCG TAB PO SCH (09:05)
[2023-05-08] MEDS: TORSEMIDE 20 MG TAB PO SCH (09:05)
[2023-05-08] MEDS: CHOLECALCIFEROL 25 MCG (1000 IU) TABLET PO SCH (09:05)
[2023-05-08] MEDS: ASCORBIC ACID 500 MG TAB PO SCH (09:05)
[2023-05-08] MEDS: NYSTATIN 100,000 UNIT/ML SUSP 500,000 UNIT/5 ML CUP PO SCH ×4 (09:06→20:03)
[2023-05-08] MEDS: ZINC SULFATE 220 MG CAP PO SCH (09:06)
[2023-05-08] MEDS: LEVOTHYROXINE 125 MCG TAB PO SCH (09:06)
[2023-05-08] MEDS: METOPROLOL SUCCINATE (ER) 50 MG TAB.ER.24H PO SCH (09:06)
[2023-05-08] MEDS: methylPREDNISolone SOD SUCCI 40 MG/ML 1 ML VIAL IV SCH ×2 (09:06→21:07)
[2023-05-08] MEDS: LEVOTHYROXINE 112 MCG TAB PO SCH (09:06)
[2023-05-08] MEDS ORDERED: METOPROLOL TARTRATE 5 MG/5 ML VIAL IVP SCH (10:00)
--- NOTE | 2023-05-08 10:25 | P.PN ---
Subjective Progress Note Date: 05/08/23 This is a 77-year-old male patient who presented to the hospital complaints of weakness and shortness of breath on 04/25/2023. upon arrival patient was found to be in CHF started on IV Lasix. Patient also testing positive for COVID-19 outside facility. Patient was also found to be acute on chronic renal with a creatinine of 2.5. Patient has extensive medical history including chronic systolic dysfunction, atrial fibrillation, severe pulmonary hypertension and severe stenosis. Patient was initially admitted to the intensive care unit and required Levophed for pressure support. Pulmonary, infectious disease, cardiology and nephrology services were consulted. On 05/01/2023 and resuming care patient Dr. Partida's group previously covering Patient currently resting comfortably in bed on MedSurg unit. Patient having increased confusion head CT was completed showing no acute intracranial process. Nonspecific white matter changes likely secondary to chronic small vessel ischemic disease. Will consult neurology services. Patient's creatinine also increasing to 3.4 and bun 84. Patient was recently transitioned to by mouth Lasix. Nephrology services are following. Patient remains on IV antibiotics infectious services following. Her vital signs temp 97.2, heart rate 81, respiratory rate 18, blood pressure 130/73 with pulse ox 98% on 4 L On 05/02/2023 patient was seen and examined on the telemetry floor he is alert, slightly confused in no apparent distress, he is complaining of shortness of breath, otherwise he denies any complaints there is no fever or chills no headache or dizziness no chest pain no palpitation he has occasional cough no nausea or vomiting no abdominal pain no diarrhea and no urinary symptoms. On chest exam patient has bilateral crackles in both lung fuentes, currently he is off Lasix. Dr. Weller was contacted and she agreed to give patient a 1 dose of Lasix 40 mg IV now, creatinine today is 3.2, will continue to monitor closely On 05/03/2023 patient remains confused. Increased shortness of breath. 60 mg Lasix ordered per nephrology services. BiPAP ordered per pulmonary patient will be transferred to [address] [place] [address] for increased level of care. CMP currently pending. Pulmonary, nephrology, infectious disease and neurology services are following. Prognosis remains guarded at this time. On 05/04/2023 patient was seen and examined on the telemetry floor he is alert, maintained on BiPAP at this time there is no fever or chills no headache or dizziness no chest pain he has shortness of breath with any activity there is no nausea or vomiting no abdominal pain no diarrhea and no urinary symptoms. Mental status is waxing and waning mostly patient is somnolent his oral medications including Eliquis, are on hold at this time patient was started on subcu Lovenox in the meanwhile, will continue to follow closely prognosis is guarded On 05/05/2023 patient is resting in bed on BiPAP. Patient received hemodialysis yesterday. Patient to receive additional hemodialysis today. Current vital signs temp 96.1, heart rate 92, blood pressure 127/75. Currently satting 94% on BiPAP 50% On 05/06/2023 patient was seen and examined on the medical floor he is somnolent responsive to stimuli he is maintained on BiPAP and is receiving hemodialysis, vital exam reveals a temperature of 97.3 pulse 91 respiration 16 blood pressure 104/65 pulse ox 94% on BiPAP with FiO2 of 40% white blood count is 8.5 hemoglobin 13.3 platelet count 235 BUN 100 creatinine 4.5 On 05/07/2023 patient was seen and examined on the telemetry floor he is somnolent responsive to stimuli moving all 4 extremities he is still maintained on BiPAP he is receiving hemodialysis again today. On 05/08/2023 patient is more alert today. Patient's daughter at bedside. Patient apparently was able to take pills with applesauce this AM. Currently on nasal cannula. Plans for hemodialysis today Objective - Vital Signs Vital signs: Vital Signs Temp 98.3 F 05/08/23 08:00 Pulse 160 H 05/08/23 08:00 Resp 24 05/08/23 08:00 BP 136/98 05/08/23 08:00 Pulse Ox 98 05/08/23 08:00 FiO2 60 05/08/23 08:49 Intake & Output 05/07/23 05/08/23 05/08/23 18:59 06:59 18:59 Intake Total 500 Output Total 50 1700 1 Balance -50 -1200 -1 Weight 100.4 kg Intake: Hemodialysis 500 Output: Urine 50 0 Stool 1 Hemodialysis 1700 Other: Voiding Method Indwelling Catheter Indwelling Catheter # Bowel Movements 1 - Exam Head normocephalic Neck supple Lungs clear to auscultation bilaterally no wheezing or crackles Heart regular rate and rhythm S1-S2, no rub or gallop Abdomen is soft nontender nondistended positive bowel sounds no hepatosplenomegaly Extremities no edema Neuro alert and orientated to 3. Intermittent confusion - Labs CBC & Chem 7: 05/07/23 08:52 05/07/23 08:52 Labs: Abnormal Lab Results - Last 24 Hours (Table) 05/07/23 05/07/23 05/07/23 Range/Units 08:52 11:14 11:39 INR 1.2 H (<1.2) ABG pO2 74 L (83-108) mmHg ABG Total CO2 25 H (19-24) mmol/L Creatinine 4.39 H (0.66-1.25) mg/dL POC Glucose (mg/dL) (70-110) mg/dL 05/07/23 05/07/23 05/07/23 Range/Units 11:47 16:35 20:15 INR (<1.2) ABG pO2 (83-108) mmHg ABG Total CO2 (19-24) mmol/L Creatinine (0.66-1.25) mg/dL POC Glucose (mg/dL) 265 H 160 H 174 H (70-110) mg/dL 05/08/23 05/08/23 Range/Units 04:41 06:13 INR (<1.2) ABG pO2 (83-108) mmHg ABG Total CO2 (19-24) mmol/L Creatinine (0.66-1.25) mg/dL POC Glucose (mg/dL) 269 H 246 H (70-110) mg/dL Assessment and Plan Assessment: 1. Acute hypoxic respiratory failure secondary to acute CHF, pseudomonas pneumonia and Covid infection 2. Acute renal failure due to ATN from hypotension. On 05/04/2023 patient started on hemodialysis received hemodialysis 3. Hypovolemic shock requiring vasopressor support, resolved 4. Recent Pseudomonas pneumonia. Patient was treated outpatient 5. Increased confusion 6. History of paroxysmal atrial fibrillation. Patient did require IV Cardizem. Rate has improved 7. Diabetes mellitus type 2 8. COVID-19 pneumonia diagnosed outpatient 9. Thrombocytopenia likely secondary from antibiotics in recent illness 10. Ischemic cardiomyopathy 11. Moderate aortic stenosis and pulmonary hypertension 12. History of coronary artery bypass graft surgery 13. History of hypothyroidism DVT prophylaxis eliquis GI prophylaxis Protonix Patient maintained on IV antibiotics Nephrology, pulmonary, infectious and cardiology services are following BiPAP ordered per pulmonary Neurology services consulted for confusion Repeat labs ordered Prevacid
[2023-05-08 11:50] LABS: Glucose,Whole Blood 364 mg/dL (70-110)
--- NOTE | 2023-05-08 13:39 | P.GSCN ---
History of Present Illness Consult date: 05/08/23 History of present illness: CHIEF COMPLAINT: Shortness of breath HISTORY OF PRESENT ILLNESS: This is a 77-year-old male who presented with shortness of breath and presented with A. fib with RVR. Patient being treated for multiple medical issues including a toxic metabolic encephalopathy, CHF exacerbation COPD exacerbation and COVID-19 infection. He also had recent pneumonia. Patient's requiring high flow oxygen. His mentation on has been poor. He has been unable to swallow safely. Surgical service has been consulted for possible PEG tube placement. However, this morning patient did have some applesauce this morning with his pills. Patient has history of chronic kidney disease and has been started on hemodialysis during this admission. He is currently on Lovenox subcu for his atrial fibrillation. PAST MEDICAL HISTORY: See below PAST SURGICAL HISTORY: See below MEDICATIONS: See below ALLERGIES: See below SOCIAL HISTORY: No illicit drug use. REVIEW OF SYSTEMS: CONSTITUTIONAL: Denies fever or chills. HEENT: Denies blurred vision, vision changes, or eye pain. Denies hemoptysis CARDIOVASCULAR: Denies chest pain or pressure. RESPIRATORY: No shortness of breath. GASTROINTESTINAL: See HPI for pertinent findings HEMATOLOGIC: Denies bleeding disorders. GENITOURINARY: Denies any blood in urine or increased urinary frequency. SKIN: Denies pruitis. Denies rash. PHYSICAL EXAM: VITAL SIGNS: Reviewed GENERAL: Well-developed in no acute distress. ABDOMEN: Soft. Nondistended. Nontender NEUROLOGIC: Lethargic LABORATORY DATA: WBC is 11.2 Hgb 13.6 platelets 216 Sodium was 133 potassium is 5.3 creatinine 4.39 Albumin 3.0 IMAGING: ASSESSMENT: 1. Severe protein calorie malnutrition 2. Failure to thrive 3. Poor oral intake 4. History of A. fib PLAN: -Patient tentatively scheduled for EGD with PEG tube placement tomorrow with Dr. Brooks -Hold Lovenox starting tonight -Continue supportive care Thank you for this consultation Physician Power Sweeper Operator note has been reviewed by physician. Signing provider agrees with the documented findings, assessment, and plan of care. Past Medical History Past Medical History: Atrial Fibrillation, Coronary Artery Disease (CAD), Heart Failure, COPD, CVA/TIA, Diabetes Mellitus, Hypertension, Myocardial Infarction (HI) Additional Past Medical History / Comment(s): left knee cap broken, pancreatitis, /gallstones, Patient reports having stroke like symptoms after injection in knee, Last Myocardial Infarction Date:: 2017 History of Any Multi-Drug Resistant Organisms: MRSA Year Discovered:: 10/01/22 MDRO Source:: Sputum Past Surgical History: Cholecystectomy, Coronary Bypass/CABG, Heart Ca theterization With Stent, Hernia Repair, Orthopedic Surgery Additional Past Surgical History / Comment(s): lt knee replacement(total of 4 sx), colonoscopy, Left knee cap removal with antibiotic spacers placed, Past Anesthesia/Blood Transfusion Reactions: No Reported Reaction Date of Last Stent Placement:: 10/2015 Past Psychological History: No Psychological Hx Reported Additional Psychological History / Comment(s): Pt resides with his spouse. He uses a walker to ambulate. Smoking Status: Former smoker Past Alcohol Use History: Occasional Additional Past Alcohol Use History / Comment(s): Pt started smoking as teen and quit 1983 smoked 2 ppd. Pt usually has one drink a night. Past Drug Use History: None Reported - Past Family History Father Family Medical History: Diabetes Mellitus Mother Family Medical History: CVA/TIA, Hypertension Medications and Allergies Home Medications Medication Instructions Recorded Confirmed Type allopurinoL [Zyloprim] 300 mg PO DAILY@0800 08/07/17 04/25/23 History Gabapentin 1,200 mg PO TID@1400,1800,2200 10/02/18 04/25/23 History Levothyroxine Sodium [Synthroid] 112 mcg PO DAILY@0800 10/02/18 04/25/23 History Levothyroxine Sodium [Synthroid] 125 mcg PO DAILY@0800 10/02/18 04/25/23 History Nitroglycerin Sl Tabs [Nitrostat] 0.4 mg SL Q5M PRN 10/02/18 04/25/23 History Atorvastatin [Lipitor] 40 mg PO HS@199910/19/21 04/25/23 History Apixaban [Eliquis] 5 mg PO BID@0800,1700 09/28/22 04/25/23 History Budesonide/Formoterol Fumarate 2 puff INHALATION RT-BID@0800,1700 09/28/22 04/25/23 History [Symbicort 80-4.5 Mcg Inhaler] HYDROcodone/APAP 7.5-325MG [[place] 1 tab PO BID PRN 09/28/22 04/25/23 History 7.5-325] Magnesium Oxide [Mag-Ox] 400 mg PO BID@0800,1700 09/28/22 04/25/23 History Meclizine [Antivert] 12.5 mg PO TID@0700,1200,1700 09/28/22 04/25/23 History Albuterol Sulfate [Proventil Hfa] 1 puff INHALATION RT-Q8H PRN 11/22/22 04/25/23 History Omeprazole 20 mg PO DAILY@0800 11/22/22 04/25/23 History Glimepiride [Amaryl] 2 mg PO BID@0800,1700 03/29/23 04/25/23 History Aspirin 81 mg PO DAILY@0730 04/25/23 04/25/23 History Cefepime [Maxipime] 2 gm IVPB BID@0900,2100 04/25/23 04/25/23 History Dapagliflozin Propanediol [Farxiga] 10 mg PO DAILY@0800 04/25/23 04/25/23 History Furosemide [Lasix] 40 mg PO BID@0700,1300 04/25/23 04/25/23 History Insulin Glargine-Yfgn [Semglee 40 units SQ DAILY@0804/25/23 04/25/23 History (Yfgn) Pen] Insulin Lispro See Protocol SQ QID@,,,04/25/23 04/25/23 History Ipratropium-Albuterol Nebulize 3 ml INHALATION RT-Q2H PRN 04/25/23 04/25/23 History [Duoneb 0.5 mg-3 mg/3 ml Soln] Ipratropium-Albuterol Nebulize 3 ml INHALATION RT-QID@07,12,,04/25/23 04/25/23 History [Duoneb 0.5 mg-3 mg/3 ml Soln] Metoprolol Succinate (ER) [Toprol 50 mg PO DAILY@0800 04/25/23 04/25/23 History XL] Molnupiravir [Molnupiravir (Eua)] 800 mg PO BID@0700,1900 04/25/23 04/25/23 History Nystatin 100,000 Unit/ml Susp 500,000 unit PO QID@07,12,, 04/25/23 04/25/23 History [Mycostatin Oral Susp] Potassium Chloride ER [K-Dur 20] 20 meq PO BID@0800,1700 04/25/23 04/25/23 History Allergies Allergy/AdvReac Type Severity Reaction Status Date / Time Sulfa (Sulfonamide Allergy Mild Rash/Hives Verified 04/25/23 16:17 Antibiotics) cephalexin [From Keflex] Allergy Unknown Verified 04/25/23 16:17 clopidogrel [From Plavix] Allergy Rash/Hives Verified 04/25/23 16:17 codeine Allergy Rash/Nausea Verified 04/25/23 16:17 & Vomiting Iodine and Iodide Containing Allergy Rash/Hives Verified 04/25/23 16:17 Produc levofloxacin [From Levaquin] Allergy urticaria/r Verified 04/25/23 16:17 belle shellfish derived [Shellfish] Allergy urticaria/r Verified 04/25/23 16:17 belle lisinopril AdvReac Angiodema Verified 04/25/23 16:17 of tongue oxycodone AdvReac Hallucinati Verified 04/25/23 16:17 ons solifenacin AdvReac Nausea & Verified 04/25/23 16:17 Vomiting Surgical - Exam Vital Signs Temp Pulse Resp BP Pulse Ox 98.2 F 47 L 20 102/86 99 04/25/23 15:30 04/25/23 15:30 04/25/23 15:30 04/25/23 15:30 04/25/23 15:30 Results - Labs 05/07/23 08:52 05/07/23 08:52 Abnormal Lab Results - Last 24 Hours (Table) 05/07/23 05/07/23 05/07/23 Range/Units 11:47 16:35 20:15 POC Glucose (mg/dL) 265 H 160 H 174 H (70-110) mg/dL 05/08/23 05/08/23 05/08/23 Range/Units 04:41 06:13 11:46 POC Glucose (mg/dL) 269 H 246 H 364 H (70-110) mg/dL
--- NOTE | 2023-05-08 14:22 | P.PN ---
Subjective HISTORY OF PRESENT ILLNESS: Cardiology was asked to reevaluate patient secondary to atrial fibrillation with RVR. The patient has been having issues with swallowing and has been nothing by mouth. Hence he was not receiving his metoprolol. He did receive it this morning with a little bit of applesauce. The patient was transitioned to therapeutic Lovenox. Patient was also started on IV Cardizem. Telemetry reveals atrial fibrillation with a heart rate in the 120s at the time of examination PHYSICAL EXAM: VITAL SIGNS: Reviewed. GENERAL: Well-developed in no acute distress. NECK: Supple. No JVD or thyromegaly LUNGS: Respirations even and unlabored. Lungs with rhonchi bilaterally HEART: Tachycardic. Irregular rate and rhythm. S1 and S2 heard. Systolic murmur noted EXTREMITIES: Normal range of motion. No clubbing or cyanosis. Peripheral pulses intact. No lower extremity edema ASSESSMENT: Altered mental status Acute exacerbation of congestive heart failure with reduced ejection fraction, 30-35% Permanent atrial fibrillation with RVR Acute exacerbation of COPD Acute Covid 19 infection Acute on chronic renal failure, requiring hemodialysis Coronary artery disease with previous CABG and stenting Aortic stenosis Hyperlipidemia Decreased oral intake with inability to take oral medications PLAN: Patient is currently nothing by mouth due to inability to take oral medications Continue IV Cardizem Begin IV metoprolol 5 mg every 8 hours Continue therapeutic Lovenox Transition back to oral medications after PEG tube is placed Further recommendations pending patient's course Nurse practitioner note has been reviewed by physician. Signing provider agrees with the documented findings, assessment, and plan of care. Objective - Vital Signs Vital signs: Vital Signs Temp 98.4 F 05/08/23 12:00 Pulse 80 05/08/23 14:00 Resp 22 05/08/23 14:00 BP 144/94 05/08/23 12:00 Pulse Ox 96 05/08/23 12:00 FiO2 60 05/08/23 08:49 Intake & Output 05/07/23 05/08/23 05/08/23 18:59 06:59 18:59 Intake Total 500 Output Total 50 1700 2 Balance -50 -1200 -2 Weight 100.4 kg 100.4 kg Intake: Hemodialysis 500 Output: Urine 50 0 Stool 2 Hemodialysis 1700 Other: Voiding Method Indwelling Catheter Indwelling Catheter # Bowel Movements 1 - Labs CBC & Chem 7: 05/07/23 08:52 05/07/23 08:52 Labs: Abnormal Lab Results - Last 24 Hours (Table) 05/07/23 05/07/23 05/08/23 Range/Units 16:35 20:15 04:41 POC Glucose (mg/dL) 160 H 174 H 269 H (70-110) mg/dL 05/08/23 05/08/23 Range/Units 06:13 11:46 POC Glucose (mg/dL) 246 H 364 H (70-110) mg/dL
--- NOTE | 2023-05-08 14:25 | P.PN ---
Subjective Patient is seen in follow-up for acute kidney injury on chronic kidney disease. Started on hemodialysis 05/04/2023. Currently on nasal cannula. Oliguric. No problems with dialysis yesterday. Sitter at bedside. About 20 to go swallow eval. Vital signs are stable. General: Lethargic. HEENT: On nasal cannula. LUNGS: Scattered rhonchi. HEART: Rate and Rhythm are regular. ABDOMEN: No distention. EXTREMITITES: No edema. Objective - Vital Signs Vital signs: Vital Signs Temp 98.4 F 05/08/23 12:00 Pulse 80 05/08/23 14:00 Resp 22 05/08/23 14:00 BP 144/94 05/08/23 12:00 Pulse Ox 96 05/08/23 12:00 FiO2 60 05/08/23 08:49 Intake & Output 05/07/23 05/08/23 05/08/23 18:59 06:59 18:59 Intake Total 500 Output Total 50 1700 2 Balance -50 -1200 -2 Weight 100.4 kg 100.4 kg Intake: Hemodialysis 500 Output: Urine 50 0 Stool 2 Hemodialysis 1700 Other: Voiding Method Indwelling Catheter Indwelling Catheter # Bowel Movements 1 - Labs CBC & Chem 7: 05/07/23 08:52 05/07/23 08:52 Labs: Abnormal Lab Results - Last 24 Hours (Table) 05/07/23 05/07/23 05/08/23 Range/Units 16:35 20:15 04:41 POC Glucose (mg/dL) 160 H 174 H 269 H (70-110) mg/dL 05/08/23 05/08/23 Range/Units 06:13 11:46 POC Glucose (mg/dL) 246 H 364 H (70-110) mg/dL Assessment and Plan Plan: Assessment: 1. Acute kidney injury secondary to hemodynamic ATN and cardiorenal syndrome. Renal function worsen. Oliguric. Creatinine 4.96 dated 05/04/2023. Started on dialysis 05/04/2023. Has femoral catheter. 2. Chronic kidney disease stage IIIB with baseline creatinine 1.3-1.5 secondary to diabetic kidney disease. 3. Acute on chronic systolic CHF with ejection fraction of 30-35% with moderate tricuspid regurgitation. 4. Pneumonia maintained on antibiotics. Also tested positive for Covid-19 on 04/19/2023. 5. Volume overload. 6. Acute hypoxic respiratory failure. 7. Hypervolemic hyponatremia. 8. Diabetes mellitus. 9. A. fib with RVR maintained on anticoagulation and metoprolol. Cardiology following. 10. Hypertension with chronic kidney disease. Stable. 11. Hyperphosphatemia secondary to acute kidney injury. Add binder once able to tolerate oral meds. Expect improvement postdialysis as well. 12. Metabolic acidosis secondary to acute kidney injury. Expect improvement postdialysis. Unable to take oral meds at this time. Plan: Hemodialysis today. Will maintained on Saturday schedule for now. Maintain Demadex. Monitor for renal recovery. Wean FiO2. Will need permacath in the next 3-4 days if no improvement in renal function and urine output.
--- NOTE | 2023-05-08 14:52 | P.PN ---
Subjective Progress Note Date: 05/08/23 Patient was seen and evaluated on 04/27/2023, remains in the ICU, remains on 4 L nasal cannula, remains on Cardizem drip at 10 mg per hour remains on norepinephrine at 0.0-3 mcg/kg/m, IV fluids at KVO, patient is sleeping and dressing this morning, he had episodes of anxiety yesterday. Under control, pat ient is maintained on Xanax. Cardiology is planning to cut down his Cardizem down to 5 mg per hour, hopefully with good taper and possibly discontinue norepinephrine today. Overall the patient is doing much better today compared to yesterday. WBC count is 6 hemoglobin is 10.8 electrolytes are normal BUN is 51 creatinine 2.08, improving compared to his admission creatinine of 2.21. Chest x-ray is showing nonspecific interstitial bilateral changes patient is known to have history of nonspecific interstitial pneumonitis. And chronic diastolic congestive heart failure Reevaluated today on 04/28/2023, patient is having more symptoms of cough wheezing shortness of breath and chest tightness. Hence I started the patient on relatively high-dose of steroids. Patient is now off Cardizem, he is off norepinephrine, continues to cough and wheeze and continues to have chest tightness his CBC is relatively normal in the class abnormal BUN is 47 creatinine 2.31, slightly worse compared to yesterday. Chest x-ray showed minimal interstitial edema and pulmonary vascular congestion patient is on diuretics, he is also on bronchodilators, and steroids were added today The patient is seen today 04/29/2023 in follow-up in the intensive care unit. He is currently sitting up in bed. Awake and alert in no acute distress. Maintaining O2 saturations in the 90s on 3 L/m per nasal cannula. He's been afebrile. Norepinephrine has been discontinued. Normal saline at KVO. Chest x-ray reveals left lower lobe infiltrate. Atypical pulmonary edema. Few curly B-lines on the right. Mild congestive heart failure. He remains in atrial fibrillation with a controlled ventricular rate. Blood cultures reveal no growth. Sputum culture revealed no growth. White count 2.5. Hemoglobin 10.0. Platelets 43,000. Sodium 128. Potassium 4.3. Bicarb 21. BUN 54. Creatinine 2.36. Glucose 316. He is continued on Symbicort, albuterol, IV Solu-Medrol. Anticoagulated with Eliquis. Antibiotics in the form of cefepime. Remains on oral diuretics. Metoprolol for rate control. Progress note dated 04/30/2023. The patient is seen today in room 467. Currently, he's in no distress. He is getting oxygen at 4 L by nasal cannula. He's getting a KVO saline IV, which I told the nurse, can be discontinued. The patient is not having any complaints, or distress. White count is 3.7, hemoglobin 9.6, hematocrit 29.3, and platelet count a 67,000. Sodium 133, potassium 4.6, chlorides 99, CO2 22, BUN 66, and creatinine 3.2. Sputum was positive for Susana. Blood cultures are negative. Chest x-ray from yesterday suggests some mild congestive heart failure. Progress note dated 05/01/2023. The patient is seen today in room 467. He seems to be doing relatively well, and is very comfortable on 3 L. He's not receiving any IV fluids. He continues on cefepime. He has no particular complaints today. White count is 4.9, hemoglobin 11, hematocrit 32.8, and platelet count of 78,000. Sodium 133, potassium 4.3, chlorides 99, CO2 24, anion gap 10, BUN 84, and creatinine 3.46. Microbiology is negative other than some Susana in his sputum. Brain CT revealed no abnormality of significance. Chest x-ray showed improving features of mild CHF. Progress note dated 05/03/2023. The patient is seen today in room 376. His respiratory status has clearly declined. The patient's currently on 6 L of oxygen, with saturations between 88 and 89%. The patient's getting saline at 10 mL an hour. I ordered the patient be placed on BiPAP, at 12 and 5, and 50%. For that reason, the patient is tra nsferred down to 3 S. floor. The patient's very lethargic, shouting out words. Doesn't seem to be making much sense. Chest x-ray shows fluid overload. White count was 5.26, hemoglobin 11.4, hematocrit 36.3, with a platelet count of 135,000. Sodium 138, potassium 5.1, chlorides 100, CO2 was 21, anion gap was 17, BUN 99, and creatinine 4.5. Sputum and blood cultures have been negative. Progress note dated 05/04/2023. The patient is seen today in room 376. He was moved down to the third floor, because we recommended BiPAP therapy. Currently, his BiPAP settings are 12 and 5 and 40%. We have ordered a portable chest x-ray. The patient will have a temporary hemodialysis catheter placed, and he'll have hemodialysis today. White count is 10.4, hemoglobin 12, hematocrit 37, and platelet count 177,000. Sodium 139, potassium 4.5, chlorides 102, CO2 26, anion gap 11, BUN 119, and creatinine 4.96. Glucose 110. Albumin is 2.9. Progress note dated 05/05/2023. 77-year-old male seen today in room 377. The patient was moved down to the third floor, for BiPAP therapy. Currently, he is at 12/5 and 40%. In addition, hemodialysis catheter was placed, and he had hemodialysis on May 04 and May 05, with 1 L being removed at both sessions. His most recent chest x-ray, does show improvement. No new labs other than a glucose of 150. The patient's respiratory status appears to be reasonably stable. On today's evaluation of 05/06/2023, the patient is undergoing hemodialysis. At the same time, the patient is a BiPAP at a pressure of 12/5 cm of water with an FiO2 of 40%. Is quite comfortable on a BiPAP. On examination he does have some bronchospasm and wheezing. His generator tidal volume is 500 mL in his respiratory rate is around 13. He has a pulse ox of 98% on room air oxygen. The most recent chest x-ray from 05/05/2023 was reviewed and it shows cardiomegaly, postthoracotomy changes, otherwise no other acute abnormalities have been noted. The patient currently has a right femoral hemodialysis catheter in place. He is known to have CHF with fluid overload and is based on that LV function is around 20-25%. He has severe pulmonary hypertension based on previous echocardiograms. He has COPD, chronic kidney disease and currently is on hemodialysis, coronary artery disease with previous bypass surgery and previous coronary stenting, hyperlipidemia, hypothyroidism, chronic atrial fibrillation and previous history of gallstone pancreatitis. Most recent blood work shows inability count of 8.5 with a hemoglobin of 13.3 and a platelet count of 235. BUN is 100 and a creatinine of 4.5. Sodium is at 134. Cultures from the sputum from 04/27/2023 was positive for Susana albicans. Neurologically, encephalopathic. MRI of the brain showed cerebral atrophy and no evidence of any acute ischemic infarct. His EEG of the brain that was done on 05/02/2023 sh owed encephalopathy along with mild to moderate slowing consistent with toxic metabolic encephalopathy. There is no evidence of any seizure activity. On today's evaluation of 05/07/2023, the patient is very much encephalopathic. I think he deserves another neurologic evaluation with a concern of underlying stroke. Remains on a BiPAP and is unable to come off the BiPAP. He remains in a pressure of 12/5 cm of water with an FiO2 of 40%. The patient was taken completely off the BiPAP and he desaturated anemia to be placed back on the BiPAP. Noted the patient has not had any oral intake for the past 3-4 days. His blood gases showed a pH of 7.37 with a pCO2 of 41 and pO2 of 74. I performe d the blood gas to make sure the patient does not have any underlying hypercapnic encephalopathy or CO2 narcosis. The patient is tolerating the BiPAP fairly well. He is arousable. He squeezes my hands using his hand, motor function lower extremity is extremely weak and he barely able to wiggle his toes. He has a weak cough. No seizure activity has been noted. A repeat CAT scan of the brain was recommended and this was completed today that showed no acute intracranial abnormalities. There was generalized atrophy and mild to moderate patchy burden of chronic small vessel ischemic disease. There was also moderate chronic rhinitis marked sinus disease. EEG was ordered. Ammonia level was also ordered. Family the bedside and discussed the case with the daughter. Remains in atrial fibrillation. Remains on Lovenox 100 mg subcu every 24 hours. On 05/08/2023, the patient seems to be slightly more awake compared to yesterday. He is more interactive. He was taken off the BiPAP and the patient was placed on high flow nasal cannula at 50 L and this is being gradually weaned off. His last session of hemodialysis was yesterday. He is going to undergo a swallow evaluation. CAT scan of the brain shows chronic changes without any acute abnormalities. Neurology evaluated the patient and their input is greatly appreciated. This is thought to be related to toxic metabolic encephalopathy including the possibility of Covid 19 encephalopathy. Drugs could be also involved in his altered mentation including gabapentin. MRI of the brain is negative for any acute or subacute stroke. EEG showed encephalopathy which is gradually improving. No labs from today. Blood sugars are elevated. The patient remains on Symbicort. The patient remains on Ventolin HFA 4 times a day around the clock. He is on Levemir insulin 25 units in addition to units of NovoLog with meals and a sliding scale coverage. Rest of the medications remain unchanged and the patient is also on diuretics with Demadex 40 mg by mouth daily. In terms of his atrial fibrillation, the patient was started on IV metoprolol 5 mg every 8 hours and he is also on Lovenox. Oral intake is quite diminished. Objective - Vital Signs Vital signs: Vital Signs Temp 98.3 F 05/08/23 08:00 Pulse 160 H 05/08/23 08:00 Resp 24 05/08/23 08:00 BP 136/98 05/08/23 08:00 Pulse Ox 98 05/08/23 08:00 FiO2 60 05/08/23 08:49 Intake & Output 05/07/23 05/08/23 05/08/23 18:59 06:59 18:59 Intake Total 500 Output Total 50 1700 1 Balance -50 -1200 -1 Weight 100.4 kg Intake: Hemodialysis 500 Output: Urine 50 0 Stool 1 Hemodialysis 1700 Other: Voiding Method Indwelling Catheter Indwelling Catheter # Bowel Movements 1 - Exam No acute distress, a bit lethargic and confused. Currently on off the BiPAP and the patient is currently on 15 L of oxygen by nasal cannula. More alert and awake compared to yesterday. HEENT examination is grossly unremarkable. Neck supple. Full range of motion. No adenopathy thyromegaly or neck vein distention. Cardiovascular examination reveals irregular rhythm and rate. S1-S2 normal. No S3 or S4. No discernible murmur noted. Lungs reveal mild scattered rhonchi. No wheezes or crackles. Breath sounds are equal bilaterally. Patient is currently on 15 L of oxygen high flow Abdomen soft bowel sounds are heard. No masses or tenderness. Extremities are intact. No cyanosis clubbing or edema. Ecchymosis noted to his right posterior thigh area. Skin is without rash or lesion. Neurologic examination is brief but nonfocal. Arousable, extremities and lower extremity is bilaterally, able to grab using his hands upon request. Still encephalopathic although much more awake compared to yesterday and seems to be more interactive. - Labs CBC & Chem 7: 05/07/23 08:52 05/07/23 08:52 Labs: Abnormal Lab Results - Last 24 Hours (Table) 05/07/23 05/07/23 05/07/23 Range/Units 11:14 11:39 11:47 INR 1.2 H (<1.2) ABG pO2 74 L (83-108) mmHg ABG Total CO2 25 H (19-24) mmol/L POC Glucose (mg/dL) 265 H (70-110) mg/dL 05/07/23 05/07/23 05/08/23 Range/Units 16:35 20:15 04:41 INR (<1.2) ABG pO2 (83-108) mmHg ABG Total CO2 (19-24) mmol/L POC Glucose (mg/dL) 160 H 174 H 269 H (70-110) mg/dL 05/08/23 Range/Units 06:13 INR (<1.2) ABG pO2 (83-108) mmHg ABG Total CO2 (19-24) mmol/L POC Glucose (mg/dL) 246 H (70-110) mg/dL Assessment and Plan Plan: Encephalopathy, possibility of toxic metabolic encephalopathy. MRI of the brain has been negative other than atrophy and EEG is consistent with metabolic encephalopathy. The patient is currently on BiPAP. He has a sitter at the bedside and is undergoing hemodialysis. No significant agitation. A repeat CAT scan of the brain was done and showed moderate atrophy and chronic small vessel ischemic disease. No acute intracranial abnormalities. No seizure activity. Consider metabolic encephalopathy. Consider Covid 19 related encephalopathy. No signs of any CO2 narcosis and the blood gas was noted. Encephalopathy seems to be gradually improving and the patient was again reevaluated by neurology. Chronic atrial fibrillation, patient presented with atrial fibrillation with RVR. Anticoagulated with Lovenox and Eliquis was held and the patient is unable to take oral medications. The patient was given IV metoprolol 5 mg every 8 hours and the patient is also on a Cardizem drip. The patient is on Lovenox for anticoagulation the patient is currently receiving 100 mg subcu on a daily basis. Acute exacerbation of chronic systolic congestive heart failure, ejection fraction 30-35% Acute exacerbation of COPD, improving COVID-19 infection. Diagnosis was established on 04/23/2023 Recent history of pneumonia secondary to pseudomonas aeruginosa, completed a course of antibiotics with IV cefepime Moderate severe aortic stenosis with pulmonary hypertension. Chronic atrial fibrillation Chronic kidney disease stage III, with worsening renal function, requiring hemodialysis, beginning on May 04. Former smoker. History of coronary artery disease and previous CABG and stenting. Dyslipidemia. Hypothyroidism. Poor overall functional performance based on the above-mentioned multiple comorbidities. Plan: Hemodialysis per nephrology CAT scan of the brain today shows chronic changes without any acute abnormalities Monitor neurologic functions Neurology consultation is appreciated Monitor mental status Patient was taken off the BiPAP and the patient is currently on high flow oxygen 50 L and this will be weaned off gradually to maintain a saturation above 90% Continue hemodialysis per nephrology Continue IV Lopressor Continue IV Cardizem Continue Lovenox 100 mg subcu on a daily basis Keep the patient nothing by mouth for now , we'll do a swallow evaluation Reduce the Solu-Medrol to 20 mg IV every 12 hours Continue Levemir for blood sugar control and sliding scale coverage Continue bronchodilators Monitor electrolytes We'll continue to follow Full CODE STATUS prognosis poor based above-mentioned comorbidities
[2023-05-08] MEDS: GABAPENTIN 100 MG CAP PO SCH ×3 (15:08→20:02)
[2023-05-08] MEDS: METOPROLOL TARTRATE 5 MG/5 ML VIAL IVP SCH (15:38)
[2023-05-08 16:36] LABS: Glucose,Whole Blood 206 mg/dL (70-110)
[2023-05-08] MEDS: ATORVASTATIN 40 MG TAB PO SCH (20:02)
[2023-05-08] MEDS: DILTIAZEM 125 MG in SODIUM CHLORIDE 0.9% 100 ML IV SCH (20:05)
[2023-05-08 20:14] LABS: Glucose,Whole Blood 155 mg/dL (70-110)
[2023-05-08 21:48] LABS: Glucose,Whole Blood 152 mg/dL (70-110)
[2023-05-08 22:41] LABS: ABG Base Excess -2.5 mmol/L; ABG HCO3 23 mmol/L (21-25); ABG Oxygen Saturation 98.3 % (94-97); ABG PCO2 39 mmHg (35-45); ABG PH 7.38 (7.35-7.45); ABG PO2 124 mmHg (83-108); ABG TCO2 24 mmol/L (19-24); Allen Test Performed? Yes
[2023-05-09] MEDS: METOPROLOL TARTRATE 5 MG/5 ML VIAL IVP SCH ×3 (00:51→17:33)
[2023-05-09 06:09] LABS: Glucose,Whole Blood 175 mg/dL (70-110)
[2023-05-09] MEDS: INSULIN DETEMIR (LEVEMIR) 100 UNIT/ML SYR SQ SCH ×2 (06:15→20:47)
[2023-05-09] MEDS: PANTOPRAZOLE 40 MG TABLET PO SCH (06:15)
[2023-05-09] MEDS: MIDODRINE 5 MG TAB PO SCH ×3 (06:41→17:37)
[2023-05-09] MEDS: INSULIN ASPART (NovoLOG) 100 UNIT/ML VIAL SQ SCH ×6 (06:41→19:00)
[2023-05-09 08:22] LABS: Anisocytosis Slight; Basophils % (A) 0 %; Eosinophils % (A) 0 %; HCT 49.3 % (39.0-53.0); Hypochromasia Slight; Lymphocytes # (A) 0.8 k/uL (1.0-4.8); Lymphocytes % (A) 3 %; MCH 31.3 pg (25.0-35.0); MCHC 32.5 g/dL (31.0-37.0); MCV 96.3 fL (80.0-100.0); Macrocytosis Slight; Mean Platelet Volume 9.2; Monocytes # (A) 0.9 k/uL (0-1.0); Monocytes % (A) 4 %; Neutrophils # (A) 24.9 k/uL (1.3-7.7); Neutrophils % (A) 93 %; Platelet Count 262 k/uL (150-450); Poikilocytosis Slight; RBC 5.12 m/uL (4.30-5.90); RDW 16.4 % (11.5-15.5); WBC 26.8 k/uL (3.8-10.6)
[2023-05-09 08:49] LABS: ALT 40 U/L (4-49); AST 23 U/L (17-59); Albumin 3.3 g/dL (3.5-5.0); Alkaline Phosphatase 84 U/L (38-126); Anion Gap 16 mmol/L; Blood Urea Nitrogen 77 mg/dL (9-20); Calcium 8.7 mg/dL (8.4-10.2); Carbon Dioxide 20 mmol/L (22-30); Chloride 101 mmol/L (98-107); Glucose 179 mg/dL (74-99); Potassium 5.9 mmol/L (3.5-5.1); Sodium 137 mmol/L (137-145); Total Bilirubin 1.4 mg/dL (0.2-1.3); Total Protein 5.9 g/dL (6.3-8.2)
[2023-05-09] MEDS: methylPREDNISolone SOD SUCCI 40 MG/ML 1 ML VIAL IV SCH ×2 (08:49→20:47)
[2023-05-09] MEDS: HYDROmorphone 0.5 MG/0.5 ML SYRINGE IVP PRN ×2 (08:50→15:10)
[2023-05-09 08:58] LABS: African American GFR (CKD) 13 (>60 ml/min/1.73 sqM); Non-African American GFR(CKD) 11 (>60 ml/min/1.73 sqM)
[2023-05-09] MEDS: SYMBICORT 160-4.5 MCG INHALER INHALATION SCH ×2 (09:12→21:14)
[2023-05-09] MEDS: ALBUTEROL HFA INHALER INHALATION SCH ×4 (09:12→21:14)
[2023-05-09] MEDS: LEVOTHYROXINE 125 MCG TAB PO SCH (09:52)
[2023-05-09] MEDS: ASCORBIC ACID 500 MG TAB PO SCH (09:52)
[2023-05-09] MEDS: LEVOTHYROXINE 112 MCG TAB PO SCH (09:52)
[2023-05-09] MEDS: ZINC SULFATE 220 MG CAP PO SCH (09:53)
[2023-05-09] MEDS: TORSEMIDE 20 MG TAB PO SCH (09:53)
[2023-05-09] MEDS: CHOLECALCIFEROL 25 MCG (1000 IU) TABLET PO SCH (09:53)
[2023-05-09] MEDS: NYSTATIN 100,000 UNIT/ML SUSP 500,000 UNIT/5 ML CUP PO SCH ×4 (09:53→20:15)
[2023-05-09] MEDS: CYANOCOBALAMIN 500 MCG TAB PO SCH (09:53)
[2023-05-09] MEDS: ENOXAPARIN 100 MG/ML SYRINGE SQ SCH (09:54)
--- NOTE | 2023-05-09 11:21 | P.PN ---
Subjective Progress Note Date: 05/09/23 CHIEF COMPLAINT: Shortness of breath HISTORY OF PRESENT ILLNESS: Surgical service on consult for possible PEG tube placement. Initially PEG tube canceled for today. Due to respiratory status decline PEG tube placement has been canceled. Patient is lethargic. He is on 13 L of oxygen and did require BiPAP during the night. Followed by pulmonary service. Afebrile. WBC 11.2 up to 26.8 PHYSICAL EXAM: VITAL SIGNS: Reviewed. GENERAL: no acute distress. ABDOMEN: Soft. Nondistended. Nontender. NEUROLOGIC: Lethargic ASSESSMENT: 1. Severe protein calorie malnutrition 2. Failure to thrive 3. Poor oral intake 4. History of A. fib PLAN: -PEG tube placement canceled today due to worsening respiratory status -Continue supportive care Physician Inventory Control Assistant note has been reviewed by physician. Signing provider agrees with the documented findings, assessment, and plan of care. Objective - Vital Signs Vital signs: Vital Signs Temp 98.3 F 05/09/23 08:20 Pulse 91 05/09/23 08:20 Resp 14 05/09/23 08:20 BP 145/90 05/09/23 08:20 Pulse Ox 91 L 05/09/23 09:09 FiO2 40 05/09/23 04:46 Intake & Output 05/08/23 05/09/23 05/09/23 18:59 06:59 18:59 Intake Total 500 116.167 Output Total 73 Balance 427 116.167 Weight 100.4 kg Intake: Intake, IV Titration 116.167 Amount Diltiazem 125 mg In 116.167 Sodium Chloride 0.9% 100 ml @ 5 MG/HR 5 mls/hr IV .Q24H ON LICENSE OF [facility] Rx#:[id number] Hemodialysis 500 Output: Stool 2 Hemodialysis 71 Other: Voiding Method Indwelling Catheter Indwelling Catheter # Voids 1 # Bowel Movements 1 - Labs CBC & Chem 7: 05/09/23 07:33 05/09/23 07:33 Labs: Abnormal Lab Results - Last 24 Hours (Table) 05/08/23 05/08/23 05/08/23 Range/Units 11:46 16:32 20:11 WBC (3.8-10.6) k/uL RDW (11.5-15.5) % Neutrophils # (1.3-7.7) k/uL Lymphocytes # (1.0-4.8) k/uL ABG pO2 (83-108) mmHg ABG O2 Saturation (94-97) % Potassium (3.5-5.1) mmol/L Carbon Dioxide (22-30) mmol/L BUN (9-20) mg/dL Creatinine (0.66-1.25) mg/dL Glucose (74-99) mg/dL POC Glucose (mg/dL) 364 H 206 H 155 H (70-110) mg/dL Total Bilirubin (0.2-1.3) mg/dL Total Protein (6.3-8.2) g/dL Albumin (3.5-5.0) g/dL 05/08/23 05/08/23 05/09/23 Range/Units 21:45 22:39 06:06 WBC (3.8-10.6) k/uL RDW (11.5-15.5) % Neutrophils # (1.3-7.7) k/uL Lymphocytes # (1.0-4.8) k/uL ABG pO2 124 H (83-108) mmHg ABG O2 Saturation 98.3 H (94-97) % Potassium (3.5-5.1) mmol/L Carbon Dioxide (22-30) mmol/L BUN (9-20) mg/dL Creatinine (0.66-1.25) mg/dL Glucose (74-99) mg/dL POC Glucose (mg/dL) 152 H 175 H (70-110) mg/dL Total Bilirubin (0.2-1.3) mg/dL Total Protein (6.3-8.2) g/dL Albumin (3.5-5.0) g/dL 05/09/23 05/09/23 Range/Units 07:33 07:33 WBC 26.8 H (3.8-10.6) k/uL RDW 16.4 H (11.5-15.5) % Neutrophils # 24.9 H (1.3-7.7) k/uL Lymphocytes # 0.8 L (1.0-4.8) k/uL ABG pO2 (83-108) mmHg ABG O2 Saturation (94-97) % Potassium 5.9 H (3.5-5.1) mmol/L Carbon Dioxide 20 L (22-30) mmol/L BUN 77 H (9-20) mg/dL Creatinine 4.60 H (0.66-1.25) mg/dL Glucose 179 H (74-99) mg/dL POC Glucose (mg/dL) (70-110) mg/dL Total Bilirubin 1.4 H (0.2-1.3) mg/dL Total Protein 5.9 L (6.3-8.2) g/dL Albumin 3.3 L (3.5-5.0) g/dL
[2023-05-09 11:52] LABS: Glucose,Whole Blood 196 mg/dL (70-110)
--- NOTE | 2023-05-09 12:06 | P.PN ---
Subjective Progress Note Date: 05/09/23 HISTORY OF PRESENT ILLNESS: Cardiology was asked to reevaluate patient secondary to atrial fibrillation with RVR. The patient has been having issues with swallowing and has been nothing by mouth. Hence he was not receiving his metoprolol. He did receive it this morning with a little bit of applesauce. The patient was transitioned to therapeutic Lovenox. Patient was also started on IV Cardizem. Telemetry reveals atrial fibrillation with a heart rate in the 120s at the time of examination 05/09/2023 Patient examined this morning at the bedside. dog sitter present as patient is attempting to take off his oxygen and pulling at lines and tubes. Patient was scheduled for PEG tube placement today, however this has been canceled as patient's respiratory status has declined. He is currently on 13 L of oxygen. He did require BiPAP overnight. Telemetry reveals atrial fibrillation with controlled ventricular rate. Patient remains nothing by mouth. He appears lethargic at the time of examination and is unable to answer questions. He is receiving therapeutic Lovenox and also IV push metoprolol. His IV Cardizem was discontinued overnight. Patient's leukocytosis has worsened today with a result of 26.8. PHYSICAL EXAM: VITAL SIGNS: Reviewed. GENERAL: Well-developed in no acute distress. Lethargic. NECK: Supple. No JVD or thyromegaly LUNGS: Respirations even and unlabored. Lungs with rhonchi bilaterally HEART: Irregular rate and rhythm. S1 and S2 heard. Systolic murmur noted EXTREMITIES: Normal range of motion. No clubbing or cyanosis. Peripheral pulses intact. No lower extremity edema ASSESSMENT: Altered mental status Worsening leukocytosis Acute hypoxic respiratory failure requiring BiPAP Acute exacerbation of congestive heart failure with reduced ejection fraction, 30-35% Permanent atrial fibrillation with RVR Acute exacerbation of COPD Acute Covid 19 infection Acute on chronic renal failure, requiring hemodialysis Coronary artery disease with previous CABG and stenting Aortic stenosis Hyperlipidemia Decreased oral intake with inability to take oral medications PLAN: Patient is currently nothing by mouth due to inability to take oral medications Continue IV metoprolol 5 mg every 8 hours Continue therapeutic Lovenox Transition back to oral medications after PEG tube is placed Further recommendations pending patient's course Prognosis guarded Nurse practitioner note has been reviewed by physician. Signing provider agrees with the documented findings, assessment, and plan of care. Objective - Vital Signs Vital signs: Vital Signs Temp 98.3 F 05/09/23 08:20 Pulse 91 05/09/23 08:20 Resp 14 05/09/23 08:20 BP 145/90 05/09/23 08:20 Pulse Ox 91 L 05/09/23 09:09 FiO2 40 05/09/23 04:46 Intake & Output 05/08/23 05/09/23 05/09/23 18:59 06:59 18:59 Intake Total 500 116.167 Output Total 73 Balance 427 116.167 Weight 100.4 kg Intake: Intake, IV Titration 116.167 Amount Diltiazem 125 mg In 116.167 Sodium Chloride 0.9% 100 ml @ 5 MG/HR 5 mls/hr IV .Q24H [facility] Rx#:[id number] Hemodialysis 500 Output: Stool 2 Hemodialysis 71 Other: Voiding Method Indwelling Catheter Indwelling Catheter # Voids 1 # Bowel Movements 1 - Labs CBC & Chem 7: 05/09/23 07:33 05/09/23 07:33 Labs: Abnormal Lab Results - Last 24 Hours (Table) 05/08/23 05/08/23 05/08/23 Range/Units 16:32 20:11 21:45 WBC (3.8-10.6) k/uL RDW (11.5-15.5) % Neutrophils # (1.3-7.7) k/uL Lymphocytes # (1.0-4.8) k/uL ABG pO2 (83-108) mmHg ABG O2 Saturation (94-97) % Potassium (3.5-5.1) mmol/L Carbon Dioxide (22-30) mmol/L BUN (9-20) mg/dL Creatinine (0.66-1.25) mg/dL Glucose (74-99) mg/dL POC Glucose (mg/dL) 206 H 155 H 152 H (70-110) mg/dL Total Bilirubin (0.2-1.3) mg/dL Total Protein (6.3-8.2) g/dL Albumin (3.5-5.0) g/dL 05/08/23 05/09/23 05/09/23 Range/Units 22:39 06:06 07:33 WBC 26.8 H (3.8-10.6) k/uL RDW 16.4 H (11.5-15.5) % Neutrophils # 24.9 H (1.3-7.7) k/uL Lymphocytes # 0.8 L (1.0-4.8) k/uL ABG pO2 124 H (83-108) mmHg ABG O2 Saturation 98.3 H (94-97) % Potassium (3.5-5.1) mmol/L Carbon Dioxide (22-30) mmol/L BUN (9-20) mg/dL Creatinine (0.66-1.25) mg/dL Glucose (74-99) mg/dL POC Glucose (mg/dL) 175 H (70-110) mg/dL Total Bilirubin (0.2-1.3) mg/dL Total Protein (6.3-8.2) g/dL Albumin (3.5-5.0) g/dL 05/09/23 05/09/23 Range/Units 07:33 11:51 WBC (3.8-10.6) k/uL RDW (11.5-15.5) % Neutrophils # (1.3-7.7) k/uL Lymphocytes # (1.0-4.8) k/uL ABG pO2 (83-108) mmHg ABG O2 Saturation (94-97) % Potassium 5.9 H (3.5-5.1) mmol/L Carbon Dioxide 20 L (22-30) mmol/L BUN 77 H (9-20) mg/dL Creatinine 4.60 H (0.66-1.25) mg/dL Glucose 179 H (74-99) mg/dL POC Glucose (mg/dL) 196 H (70-110) mg/dL Total Bilirubin 1.4 H (0.2-1.3) mg/dL Total Protein 5.9 L (6.3-8.2) g/dL Albumin 3.3 L (3.5-5.0) g/dL
[2023-05-09] MEDS: GABAPENTIN 100 MG CAP PO SCH ×3 (12:40→20:47)
--- NOTE | 2023-05-09 12:45 | P.PN ---
Subjective Patient is seen in follow-up for acute kidney injury on chronic kidney disease. Started on hemodialysis 05/04/2023. Currently on nasal cannula. Oliguric. Only completed 40 minutes of dialysis yesterday due to hypotension. Now off Cardizem drip. Heart rate controlled. Blood pressure better. Vital signs are stable. General: Lethargic. HEENT: On nasal cannula. LUNGS: Scattered rhonchi. HEART: Rate and Rhythm are regular. ABDOMEN: No distention. EXTREMITITES: No edema. Objective - Vital Signs Vital signs: Vital Signs Temp 98.1 F 05/09/23 12:00 Pulse 90 05/09/23 12:00 Resp 16 05/09/23 12:00 BP 130/72 05/09/23 12:00 Pulse Ox 93 L 05/09/23 12:00 FiO2 40 05/09/23 04:46 Intake & Output 05/08/23 05/09/23 05/09/23 18:59 06:59 18:59 Intake Total 500 116.167 Output Total 73 Balance 427 116.167 Weight 100.4 kg Intake: Intake, IV Titration 116.167 Amount Diltiazem 125 mg In 116.167 Sodium Chloride 0.9% 100 ml @ 5 MG/HR 5 mls/hr IV .Q24H [facility] Rx#:[id number] Hemodialysis 500 Output: Stool 2 Hemodialysis 71 Other: Voiding Method Indwelling Catheter Indwelling Catheter # Voids 1 # Bowel Movements 1 - Labs CBC & Chem 7: 05/09/23 07:33 05/09/23 07:33 Labs: Abnormal Lab Results - Last 24 Hours (Table) 05/08/23 05/08/23 05/08/23 Range/Units 16:32 20:11 21:45 WBC (3.8-10.6) k/uL RDW (11.5-15.5) % Neutrophils # (1.3-7.7) k/uL Lymphocytes # (1.0-4.8) k/uL ABG pO2 (83-108) mmHg ABG O2 Saturation (94-97) % Potassium (3.5-5.1) mmol/L Carbon Dioxide (22-30) mmol/L BUN (9-20) mg/dL Creatinine (0.66-1.25) mg/dL Glucose (74-99) mg/dL POC Glucose (mg/dL) 206 H 155 H 152 H (70-110) mg/dL Total Bilirubin (0.2-1.3) mg/dL Total Protein (6.3-8.2) g/dL Albumin (3.5-5.0) g/dL 05/08/23 05/09/23 05/09/23 Range/Units 22:39 06:06 07:33 WBC 26.8 H (3.8-10.6) k/uL RDW 16.4 H (11.5-15.5) % Neutrophils # 24.9 H (1.3-7.7) k/uL Lymphocytes # 0.8 L (1.0-4.8) k/uL ABG pO2 124 H (83-108) mmHg ABG O2 Saturation 98.3 H (94-97) % Potassium (3.5-5.1) mmol/L Carbon Dioxide (22-30) mmol/L BUN (9-20) mg/dL Creatinine (0.66-1.25) mg/dL Glucose (74-99) mg/dL POC Glucose (mg/dL) 175 H (70-110) mg/dL Total Bilirubin (0.2-1.3) mg/dL Total Protein (6.3-8.2) g/dL Albumin (3.5-5.0) g/dL 05/09/23 05/09/23 Range/Units 07:33 11:51 WBC (3.8-10.6) k/uL RDW (11.5-15.5) % Neutrophils # (1.3-7.7) k/uL Lymphocytes # (1.0-4.8) k/uL ABG pO2 (83-108) mmHg ABG O2 Saturation (94-97) % Potassium 5.9 H (3.5-5.1) mmol/L Carbon Dioxide 20 L (22-30) mmol/L BUN 77 H (9-20) mg/dL Creatinine 4.60 H (0.66-1.25) mg/dL Glucose 179 H (74-99) mg/dL POC Glucose (mg/dL) 196 H (70-110) mg/dL Total Bilirubin 1.4 H (0.2-1.3) mg/dL Total Protein 5.9 L (6.3-8.2) g/dL Albumin 3.3 L (3.5-5.0) g/dL Assessment and Plan Plan: Assessment: 1. Acute kidney injury secondary to hemodynamic ATN and cardiorenal syndrome. Renal function worsen. Oliguric. Creatinine 4.96 dated 05/04/2023. Started on dialysis 05/04/2023. Has femoral catheter. 2. Chronic kidney disease stage IIIB with baseline creatinine 1.3-1.5 secondary to diabetic kidney disease. 3. Acute on chronic systolic CHF with ejection fraction of 30-35% with moderate tricuspid regurgitation. 4. Pneumonia maintained on antibiotics. Also tested positive for Covid-19 on 04/19/2023. 5. Volume overload. 6. Acute hypoxic respiratory failure. 7. Hypervolemic hyponatremia. Improved postdialysis. 8. Diabetes mellitus. 9. A. fib with RVR maintained on anticoagulation and metoprolol. Cardiology following. 10. Hypertension with chronic kidney disease. Stable. 11. Hyperphosphatemia secondary to acute kidney injury. Add binder once able to tolerate oral meds. Expect improvement postdialysis as well. 12. Metabolic acidosis secondary to acute kidney injury. Improved postdialysis. Unable to take oral meds at this time. 13. Hyperkalemia secondary to acute kidney injury. Plan: Hemodialysis today. Plan for another treatment tomorrow. Maintain Demadex. Monitor for renal recovery. Wean FiO2. Will need permacath in the next 3-4 days if no improvement in renal function and urine output.
--- NOTE | 2023-05-09 16:33 | P.PN ---
Subjective Progress Note Date: 05/09/23 Patient was seen and evaluated on 04/27/2023, remains in the ICU, remains on 4 L nasal cannula, remains on Cardizem drip at 10 mg per hour remains on norepinephrine at 0.0-3 mcg/kg/m, IV fluids at KVO, patient is sleeping and dressing this morning, he had episodes of anxiety yesterday. Under control, pat ient is maintained on Xanax. Cardiology is planning to cut down his Cardizem down to 5 mg per hour, hopefully with good taper and possibly discontinue norepinephrine today. Overall the patient is doing much better today compared to yesterday. WBC count is 6 hemoglobin is 10.8 electrolytes are normal BUN is 51 creatinine 2.08, improving compared to his admission creatinine of 2.21. Chest x-ray is showing nonspecific interstitial bilateral changes patient is known to have history of nonspecific interstitial pneumonitis. And chronic diastolic congestive heart failure Reevaluated today on 04/28/2023, patient is having more symptoms of cough wheezing shortness of breath and chest tightness. Hence I started the patient on relatively high-dose of steroids. Patient is now off Cardizem, he is off norepinephrine, continues to cough and wheeze and continues to have chest tightness his CBC is relatively normal in the class abnormal BUN is 47 creatinine 2.31, slightly worse compared to yesterday. Chest x-ray showed minimal interstitial edema and pulmonary vascular congestion patient is on diuretics, he is also on bronchodilators, and steroids were added today The patient is seen today 04/29/2023 in follow-up in the intensive care unit. He is currently sitting up in bed. Awake and alert in no acute distress. Maintaining O2 saturations in the 90s on 3 L/m per nasal cannula. He's been afebrile. Norepinephrine has been discontinued. Normal saline at KVO. Chest x-ray reveals left lower lobe infiltrate. Atypical pulmonary edema. Few curly B-lines on the right. Mild congestive heart failure. He remains in atrial fibrillation with a controlled ventricular rate. Blood cultures reveal no growth. Sputum culture revealed no growth. White count 2.5. Hemoglobin 10.0. Platelets 43,000. Sodium 128. Potassium 4.3. Bicarb 21. BUN 54. Creatinine 2.36. Glucose 316. He is continued on Symbicort, albuterol, IV Solu-Medrol. Anticoagulated with Eliquis. Antibiotics in the form of cefepime. Remains on oral diuretics. Metoprolol for rate control. Progress note dated 04/30/2023. The patient is seen today in room 467. Currently, he's in no distress. He is getting oxygen at 4 L by nasal cannula. He's getting a KVO saline IV, which I told the nurse, can be discontinued. The patient is not having any complaints, or distress. White count is 3.7, hemoglobin 9.6, hematocrit 29.3, and platelet count a 67,000. Sodium 133, potassium 4.6, chlorides 99, CO2 22, BUN 66, and creatinine 3.2. Sputum was positive for Susana. Blood cultures are negative. Chest x-ray from yesterday suggests some mild congestive heart failure. Progress note dated 05/01/2023. The patient is seen today in room 467. He seems to be doing relatively well, and is very comfortable on 3 L. He's not receiving any IV fluids. He continues on cefepime. He has no particular complaints today. White count is 4.9, hemoglobin 11, hematocrit 32.8, and platelet count of 78,000. Sodium 133, potassium 4.3, chlorides 99, CO2 24, anion gap 10, BUN 84, and creatinine 3.46. Microbiology is negative other than some Susana in his sputum. Brain CT revealed no abnormality of significance. Chest x-ray showed improving features of mild CHF. Progress note dated 05/03/2023. The patient is seen today in room 376. His respiratory status has clearly declined. The patient's currently on 6 L of oxygen, with saturations between 88 and 89%. The patient's getting saline at 10 mL an hour. I ordered the patient be placed on BiPAP, at 12 and 5, and 50%. For that reason, the patient is tra nsferred down to 3 S. floor. The patient's very lethargic, shouting out words. Doesn't seem to be making much sense. Chest x-ray shows fluid overload. White count was 5.26, hemoglobin 11.4, hematocrit 36.3, with a platelet count of 135,000. Sodium 138, potassium 5.1, chlorides 100, CO2 was 21, anion gap was 17, BUN 99, and creatinine 4.5. Sputum and blood cultures have been negative. Progress note dated 05/04/2023. The patient is seen today in room 376. He was moved down to the third floor, because we recommended BiPAP therapy. Currently, his BiPAP settings are 12 and 5 and 40%. We have ordered a portable chest x-ray. The patient will have a temporary hemodialysis catheter placed, and he'll have hemodialysis today. White count is 10.4, hemoglobin 12, hematocrit 37, and platelet count 177,000. Sodium 139, potassium 4.5, chlorides 102, CO2 26, anion gap 11, BUN 119, and creatinine 4.96. Glucose 110. Albumin is 2.9. Progress note dated 05/05/2023. 77-year-old male seen today in room 377. The patient was moved down to the third floor, for BiPAP therapy. Currently, he is at 12/5 and 40%. In addition, hemodialysis catheter was placed, and he had hemodialysis on May 04 and May 05, with 1 L being removed at both sessions. His most recent chest x-ray, does show improvement. No new labs other than a glucose of 150. The patient's respiratory status appears to be reasonably stable. On today's evaluation of 05/06/2023, the patient is undergoing hemodialysis. At the same time, the patient is a BiPAP at a pressure of 12/5 cm of water with an FiO2 of 40%. Is quite comfortable on a BiPAP. On examination he does have some bronchospasm and wheezing. His generator tidal volume is 500 mL in his respiratory rate is around 13. He has a pulse ox of 98% on room air oxygen. The most recent chest x-ray from 05/05/2023 was reviewed and it shows cardiomegaly, postthoracotomy changes, otherwise no other acute abnormalities have been noted. The patient currently has a right femoral hemodialysis catheter in place. He is known to have CHF with fluid overload and is based on that LV function is around 20-25%. He has severe pulmonary hypertension based on previous echocardiograms. He has COPD, chronic kidney disease and currently is on hemodialysis, coronary artery disease with previous bypass surgery and previous coronary stenting, hyperlipidemia, hypothyroidism, chronic atrial fibrillation and previous history of gallstone pancreatitis. Most recent blood work shows inability count of 8.5 with a hemoglobin of 13.3 and a platelet count of 235. BUN is 100 and a creatinine of 4.5. Sodium is at 134. Cultures from the sputum from 04/27/2023 was positive for Susana albicans. Neurologically, encephalopathic. MRI of the brain showed cerebral atrophy and no evidence of any acute ischemic infarct. His EEG of the brain that was done on 05/02/2023 sh owed encephalopathy along with mild to moderate slowing consistent with toxic metabolic encephalopathy. There is no evidence of any seizure activity. On today's evaluation of 05/07/2023, the patient is very much encephalopathic. I think he deserves another neurologic evaluation with a concern of underlying stroke. Remains on a BiPAP and is unable to come off the BiPAP. He remains in a pressure of 12/5 cm of water with an FiO2 of 40%. The patient was taken completely off the BiPAP and he desaturated anemia to be placed back on the BiPAP. Noted the patient has not had any oral intake for the past 3-4 days. His blood gases showed a pH of 7.37 with a pCO2 of 41 and pO2 of 74. I performe d the blood gas to make sure the patient does not have any underlying hypercapnic encephalopathy or CO2 narcosis. The patient is tolerating the BiPAP fairly well. He is arousable. He squeezes my hands using his hand, motor function lower extremity is extremely weak and he barely able to wiggle his toes. He has a weak cough. No seizure activity has been noted. A repeat CAT scan of the brain was recommended and this was completed today that showed no acute intracranial abnormalities. There was generalized atrophy and mild to moderate patchy burden of chronic small vessel ischemic disease. There was also moderate chronic rhinitis marked sinus disease. EEG was ordered. Ammonia level was also ordered. Family the bedside and discussed the case with the daughter. Remains in atrial fibrillation. Remains on Lovenox 100 mg subcu every 24 hours. On 05/08/2023, the patient seems to be slightly more awake compared to yesterday. He is more interactive. He was taken off the BiPAP and the patient was placed on high flow nasal cannula at 50 L and this is being gradually weaned off. His last session of hemodialysis was yesterday. He is going to undergo a swallow evaluation. CAT scan of the brain shows chronic changes without any acute abnormalities. Neurology evaluated the patient and their input is greatly appreciated. This is thought to be related to toxic metabolic encephalopathy including the possibility of Covid 19 encephalopathy. Drugs could be also involved in his altered mentation including gabapentin. MRI of the brain is negative for any acute or subacute stroke. EEG showed encephalopathy which is gradually improving. No labs from today. Blood sugars are elevated. The patient remains on Symbicort. The patient remains on Ventolin HFA 4 times a day around the clock. He is on Levemir insulin 25 units in addition to units of NovoLog with meals and a sliding scale coverage. Rest of the medications remain unchanged and the patient is also on diuretics with Demadex 40 mg by mouth daily. In terms of his atrial fibrillation, the patient was started on IV metoprolol 5 mg every 8 hours and he is also on Lovenox. Oral intake is quite diminished. 05/09/2000 patient is essentially the same as yesterday. No major change in his condition. He remains off the BiPAP and currently is on high flow oxygen 50 L an FiO2 of 9 4%. Denies having any significant shortness of breath. Denies having any chest pain. Unable to swallow as the patient is not fully awake and is still encephalopathic. Remains profoundly weak and lethargic. He is unable to maintain a conversation still. The white cell count today is elevated at 26.8 with a hemoglobin of 16. BUN is 77 with a creatinine of 4.6. Sodium is at 137 and potassium levels at 5.9. Blood sugars at 179. The patient was seen by nephrology. Note that he completed in the area of 40 minutes of dialysis yesterday and this was stopped because of hypotension. The patient is going to undergo hemodialysis today. Another treatment is to follow tomorrow. He is on Demadex. Renal function is being monitored. Potassium is being monitored. He is off the Cardizem drip for now. He remains in atrial fibrillation. He remains on Lovenox. He remains encephalopathic. He is being seen with various consultants including nephrology and urology. Objective - Vital Signs Vital signs: Vital Signs Temp 98.3 F 05/09/23 15:26 Pulse 114 H 05/09/23 15:26 Resp 12 05/09/23 15:26 BP 123/63 05/09/23 15:26 Pulse Ox 94 L 05/09/23 15:26 FiO2 40 05/09/23 04:46 Intake & Output 05/08/23 05/09/23 05/09/23 18:59 06:59 18:59 Intake Total 500 116.167 Output Total 73 Balance 427 116.167 Weight 100.4 kg 100.4 kg Intake: Intake, IV Titration 116.167 Amount Diltiazem 125 mg In 116.167 Sodium Chloride 0.9% 100 ml @ 5 MG/HR 5 mls/hr IV .Q24H [facility] Rx#:[id number] Hemodialysis 500 Output: Stool 2 Hemodialysis 71 Other: Voiding Method Indwelling Catheter Indwelling Catheter Indwelling Catheter # Voids 1 # Bowel Movements 1 - Exam No acute distress, a bit lethargic and confused. Currently on off the BiPAP and the patient is currently on 13 L of oxygen by nasal cannula. More alert and awake compared to yesterday. HEENT examination is grossly unremarkable. Neck supple. Full range of motion. No adenopathy thyromegaly or neck vein distention. Cardiovascular examination reveals irregular rhythm and rate. S1-S2 normal. No S3 or S4. No discernible murmur noted. Lungs reveal mild scattered rhonchi. No wheezes or crackles. Breath sounds are equal bilaterally. Patient is currently on 15 L of oxygen high flow Abdomen soft bowel sounds are heard. No masses or tenderness. Extremities are intact. No cyanosis clubbing or edema. Ecchymosis noted to his right posterior thigh area. Skin is without rash or lesion. Neurologic examination is brief but nonfocal. Arousable, extremities and lower extremity is bilaterally, able to grab using his hands upon request. Still encephalopathic although much more awake compared to yesterday and seems to be more interactive. - Labs CBC & Chem 7: 05/09/23 07:33 05/09/23 07:33 Labs: Abnormal Lab Results - Last 24 Hours (Table) 05/08/23 05/08/23 05/08/23 Range/Units 16:32 20:11 21:45 WBC (3.8-10.6) k/uL RDW (11.5-15.5) % Neutrophils # (1.3-7.7) k/uL Lymphocytes # (1.0-4.8) k/uL ABG pO2 (83-108) mmHg ABG O2 Saturation (94-97) % Potassium (3.5-5.1) mmol/L Carbon Dioxide (22-30) mmol/L BUN (9-20) mg/dL Creatinine (0.66-1.25) mg/dL Glucose (74-99) mg/dL POC Glucose (mg/dL) 206 H 155 H 152 H (70-110) mg/dL Total Bilirubin (0.2-1.3) mg/dL Total Protein (6.3-8.2) g/dL Albumin (3.5-5.0) g/dL 05/08/23 05/09/23 05/09/23 Range/Units 22:39 06:06 07:33 WBC 26.8 H (3.8-10.6) k/uL RDW 16.4 H (11.5-15.5) % Neutrophils # 24.9 H (1.3-7.7) k/uL Lymphocytes # 0.8 L (1.0-4.8) k/uL ABG pO2 124 H (83-108) mmHg ABG O2 Saturation 98.3 H (94-97) % Potassium (3.5-5.1) mmol/L Carbon Dioxide (22-30) mmol/L BUN (9-20) mg/dL Creatinine (0.66-1.25) mg/dL Glucose (74-99) mg/dL POC Glucose (mg/dL) 175 H (70-110) mg/dL Total Bilirubin (0.2-1.3) mg/dL Total Protein (6.3-8.2) g/dL Albumin (3.5-5.0) g/dL 05/09/23 05/09/23 Range/Units 07:33 11:51 WBC (3.8-10.6) k/uL RDW (11.5-15.5) % Neutrophils # (1.3-7.7) k/uL Lymphocytes # (1.0-4.8) k/uL ABG pO2 (83-108) mmHg ABG O2 Saturation (94-97) % Potassium 5.9 H (3.5-5.1) mmol/L Carbon Dioxide 20 L (22-30) mmol/L BUN 77 H (9-20) mg/dL Creatinine 4.60 H (0.66-1.25) mg/dL Glucose 179 H (74-99) mg/dL POC Glucose (mg/dL) 196 H (70-110) mg/dL Total Bilirubin 1.4 H (0.2-1.3) mg/dL Total Protein 5.9 L (6.3-8.2) g/dL Albumin 3.3 L (3.5-5.0) g/dL Assessment and Plan Plan: Encephalopathy, possibility of toxic metabolic encephalopathy. MRI of the brain has been negative other than atrophy and EEG is consistent with metabolic e ncephalopathy. The patient is currently on BiPAP. He has a sitter at the bedside and is undergoing hemodialysis. No significant agitation. A repeat CAT scan of the brain was done and showed moderate atrophy and chronic small vessel ischemic disease. No acute intracranial abnormalities. No seizure activity. Consider metabolic encephalopathy. Consider Covid 19 related encephalopathy. No signs of any CO2 narcosis and the blood gas was noted. Encephalopathy seems to be gradually improving and the patient was again reevaluated by neurology. Clinically unchanged compared to yesterday and the patient continues to be encephalopathic. Profoundly weak and lethargic. Unable to hold a conversation. Working diagnosis to metabolic encephalopathy. Covid 19 encephalopathy cannot be completely ruled out. Chronic atrial fibrillation, patient presented with atrial fibrillation with RVR. Anticoagulated with Lovenox and Eliquis was held and the patient is unable to take oral medications. The patient was given IV metoprolol 5 mg every 8 hours and the patient is off the Cardizem drip for now. The patient is on Lovenox for anticoagulation the patient is currently receiving 100 mg subcu on a daily basis. Acute exacerbation of chronic systolic congestive heart failure, ejection fraction 30-35% Acute exacerbation of COPD, improving COVID-19 infection. Diagnosis was established on 04/23/2023 Recent history of pneumonia secondary to pseudomonas aeruginosa, completed a course of antibiotics with IV cefepime Moderate severe aortic stenosis with pulmonary hypertension. Chronic atrial fibrillation Chronic kidney disease stage III, with worsening renal function, requiring hemodialysis, beginning on May 04. Former smoker. History of coronary artery disease and previous CABG and stenting. Dyslipidemia. Hypothyroidism. Poor overall functional performance based on the above-mentioned multiple comorbidities. Plan: Patient is off the Cardizem drip Hemodialysis per nephrology, going to undergo hemodialysis today and tomorrow CAT scan of the brain today shows chronic changes without any acute abnormalities Monitor neurologic functions Neurology consultation is appreciated Monitor mental status Patient was taken off the BiPAP and is currently on 50 L of oxygen nasal cannula Continue IV Lopressor Continue Lovenox 100 mg subcu on a daily basis Keep the patient nothing by mouth for now Not stable enough to undergo a PEG tube insertion Reduce the Solu-Medrol to 20 mg IV every 12 hours Continue Levemir for blood sugar control and sliding scale coverage Continue bronchodilators Monitor electrolytes We'll continue to follow Full CODE STATUS prognosis poor based above-mentioned comorbidities
--- NOTE | 2023-05-09 17:06 | P.PN ---
Subjective Progress Note Date: 05/09/23 This is a 77-year-old male patient who presented to the hospital complaints of weakness and shortness of breath on 04/25/2023. upon arrival patient was found to be in CHF started on IV Lasix. Patient also testing positive for COVID-19 outside facility. Patient was also found to be acute on chronic renal with a creatinine of 2.5. Patient has extensive medical history including chronic systolic dysfunction, atrial fibrillation, severe pulmonary hypertension and severe stenosis. Patient was initially admitted to the intensive care unit and required Levophed for pressure support. Pulmonary, infectious disease, cardiology and nephrology services were consulted. On 05/01/2023 and resuming care patient Dr. Partida's group previously covering Patient currently resting comfortably in bed on MedSurg unit. Patient having increased confusion head CT was completed showing no acute intracranial process. Nonspecific white matter changes likely secondary to chronic small vessel ischemic disease. Will consult neurology services. Patient's creatinine also increasing to 3.4 and bun 84. Patient was recently transitioned to by mouth Lasix. Nephrology services are following. Patient remains on IV antibiotics infectious services following. Her vital signs temp 97.2, heart rate 81, respiratory rate 18, blood pressure 130/73 with pulse ox 98% on 4 L On 05/02/2023 patient was seen and examined on the telemetry floor he is alert, slightly confused in no apparent distress, he is complaining of shortness of breath, otherwise he denies any complaints there is no fever or chills no headache or dizziness no chest pain no palpitation he has occasional cough no nausea or vomiting no abdominal pain no diarrhea and no urinary symptoms. On chest exam patient has bilateral crackles in both lung fuentes, currently he is off Lasix. Dr. Weller was contacted and she agreed to give patient a 1 dose of Lasix 40 mg IV now, creatinine today is 3.2, will continue to monitor closely On 05/03/2023 patient remains confused. Increased shortness of breath. 60 mg Lasix ordered per nephrology services. BiPAP ordered per pulmonary patient will be transferred to [address] [place] [address] for increased level of care. CMP currently pending. Pulmonary, nephrology, infectious disease and neurology services are following. Prognosis remains guarded at this time. On 05/04/2023 patient was seen and examined on the telemetry floor he is alert, maintained on BiPAP at this time there is no fever or chills no headache or dizziness no chest pain he has shortness of breath with any activity there is no nausea or vomiting no abdominal pain no diarrhea and no urinary symptoms. Mental status is waxing and waning mostly patient is somnolent his oral medications including Eliquis, are on hold at this time patient was started on subcu Lovenox in the meanwhile, will continue to follow closely prognosis is guarded On 05/05/2023 patient is resting in bed on BiPAP. Patient received hemodialysis yesterday. Patient to receive additional hemodialysis today. Current vital signs temp 96.1, heart rate 92, blood pressure 127/75. Currently satting 94% on BiPAP 50% On 05/06/2023 patient was seen and examined on the medical floor he is somnolent responsive to stimuli he is maintained on BiPAP and is receiving hemodialysis, vital exam reveals a temperature of 97.3 pulse 91 respiration 16 blood pressure 104/65 pulse ox 94% on BiPAP with FiO2 of 40% white blood count is 8.5 hemoglobin 13.3 platelet count 235 BUN 100 creatinine 4.5 On 05/07/2023 patient was seen and examined on the telemetry floor he is somnolent responsive to stimuli moving all 4 extremities he is still maintained on BiPAP he is receiving hemodialysis again today. On 05/08/2023 patient is more alert today. Patient's daughter at bedside. Patient apparently was able to take pills with applesauce this AM. Currently on nasal cannula. Plans for hemodialysis today On 05/09/2023 patient was seen and examined on the medical floor he is somnolent responsive in no apparent distress he was complaining of generalized pain earlier, at this time he is maintained on hemodialysis, he is still maintained on BiPAP, pulmonary critical care, nephrology, cardiology, and neurology are following, prognosis is guarded, discussed again with family today. Objective - Vital Signs Vital signs: Vital Signs Temp 98.3 F 05/09/23 15:26 Pulse 114 H 05/09/23 15:26 Resp 12 05/09/23 15:26 BP 123/63 05/09/23 15:26 Pulse Ox 94 L 05/09/23 15:26 FiO2 40 05/09/23 04:46 Intake & Output 05/08/23 05/09/23 05/09/23 18:59 06:59 18:59 Intake Total 500 116.167 Output Total 73 Balance 427 116.167 Weight 100.4 kg 100.4 kg Intake: Intake, IV Titration 116.167 Amount Diltiazem 125 mg In 116.167 Sodium Chloride 0.9% 100 ml @ 5 MG/HR 5 mls/hr IV .Q24H [facility] Rx#:[id number] Hemodialysis 500 Output: Stool 2 Hemodialysis 71 Other: Voiding Method Indwelling Catheter Indwelling Catheter Indwelling Catheter # Voids 1 # Bowel Movements 1 - Exam Head normocephalic Neck supple Lungs clear to auscultation bilaterally no wheezing or crackles Heart regular rate and rhythm S1-S2, no rub or gallop Abdomen is soft nontender nondistended positive bowel sounds no hepatosplenomegaly Extremities no edema Neuro alert and orientated to 3. Intermittent confusion - Labs CBC & Chem 7: 05/09/23 07:33 05/09/23 07:33 Labs: Abnormal Lab Results - Last 24 Hours (Table) 05/08/23 05/08/23 05/08/23 Range/Units 16:32 20:11 21:45 WBC (3.8-10.6) k/uL RDW (11.5-15.5) % Neutrophils # (1.3-7.7) k/uL Lymphocytes # (1.0-4.8) k/uL ABG pO2 (83-108) mmHg ABG O2 Saturation (94-97) % Potassium (3.5-5.1) mmol/L Carbon Dioxide (22-30) mmol/L BUN (9-20) mg/dL Creatinine (0.66-1.25) mg/dL Glucose (74-99) mg/dL POC Glucose (mg/dL) 206 H 155 H 152 H (70-110) mg/dL Total Bilirubin (0.2-1.3) mg/dL Total Protein (6.3-8.2) g/dL Albumin (3.5-5.0) g/dL 05/08/23 05/09/23 05/09/23 Range/Units 22:39 06:06 07:33 WBC 26.8 H (3.8-10.6) k/uL RDW 16.4 H (11.5-15.5) % Neutrophils # 24.9 H (1.3-7.7) k/uL Lymphocytes # 0.8 L (1.0-4.8) k/uL ABG pO2 124 H (83-108) mmHg ABG O2 Saturation 98.3 H (94-97) % Potassium (3.5-5.1) mmol/L Carbon Dioxide (22-30) mmol/L BUN (9-20) mg/dL Creatinine (0.66-1.25) mg/dL Glucose (74-99) mg/dL POC Glucose (mg/dL) 175 H (70-110) mg/dL Total Bilirubin (0.2-1.3) mg/dL Total Protein (6.3-8.2) g/dL Albumin (3.5-5.0) g/dL 05/09/23 05/09/23 Range/Units 07:33 11:51 WBC (3.8-10.6) k/uL RDW (11.5-15.5) % Neutrophils # (1.3-7.7) k/uL Lymphocytes # (1.0-4.8) k/uL ABG pO2 (83-108) mmHg ABG O2 Saturation (94-97) % Potassium 5.9 H (3.5-5.1) mmol/L Carbon Dioxide 20 L (22-30) mmol/L BUN 77 H (9-20) mg/dL Creatinine 4.60 H (0.66-1.25) mg/dL Glucose 179 H (74-99) mg/dL POC Glucose (mg/dL) 196 H (70-110) mg/dL Total Bilirubin 1.4 H (0.2-1.3) mg/dL Total Protein 5.9 L (6.3-8.2) g/dL Albumin 3.3 L (3.5-5.0) g/dL Assessment and Plan Assessment: 1. Acute hypoxic respiratory failure secondary to acute CHF, pseudomonas pneumonia and Covid infection 2. Acute renal failure due to ATN from hypotension. On 05/04/2023 patient started on hemodialysis received hemodialysis 3. Hypovolemic shock requiring vasopressor support, resolved 4. Recent Pseudomonas pneumonia. Patient was treated outpatient 5. Increased confusion 6. History of paroxysmal atrial fibrillation. Patient did require IV Cardizem. Rate has improved 7. Diabetes mellitus type 2 8. COVID-19 pneumonia diagnosed outpatient 9. Thrombocytopenia likely secondary from antibiotics in recent illness 10. Ischemic cardiomyopathy 11. Moderate aortic stenosis and pulmonary hypertension 12. History of coronary artery bypass graft surgery 13. History of hypothyroidism DVT prophylaxis eliquis GI prophylaxis Protonix Patient maintained on IV antibiotics Nephrology, pulmonary, infectious and cardiology services are following BiPAP ordered per pulmonary Neurology services consulted for confusion Repeat labs ordered Prevacid
[2023-05-09] MEDS ORDERED: INSULIN ASPART (NovoLOG) 100 UNIT/ML VIAL SQ SCH (18:00)
[2023-05-09 18:16] LABS: Glucose,Whole Blood 103 mg/dL (70-110)
[2023-05-09] MEDS ORDERED: MVI, ADULT NO.4 WITH VIT K 10 ML, TRACE (CONC-1ML/DOSE) 1 ML, SODIUM ACETATE 30 MEQ, CA... IV SCH ×5 (20:00)
[2023-05-09] MEDS: ATORVASTATIN 40 MG TAB PO SCH (20:47)
[2023-05-09 21:13] LABS: Magnesium 2.3 mg/dL (1.6-2.3); Phosphorus 8.9 mg/dL (2.5-4.5)
[2023-05-09] MEDS ORDERED: DEXTROSE 5% IN WATER 100 ML with AMIODARONE 150 MG IV ONE (21:55)
[2023-05-09] MEDS ORDERED: AMIODARONE 360 MG in DEXTROSE 5% IN WATER 200 ML IV ONE ×2 (22:00)
[2023-05-09] MEDS ORDERED: NOREPINEPHRINE 4 MG in SODIUM CHLORIDE 0.9% 250 ML IV SCH (22:00)
[2023-05-09 22:37] LABS: Anisocytosis Slight; HCT 48.7 % (39.0-53.0); HGB 16.2 gm/dL (13.0-17.5); Hypochromasia Moderate; MCH 33.3 pg (25.0-35.0); MCHC 33.2 g/dL (31.0-37.0); MCV 100.3 fL (80.0-100.0); Macrocytosis Slight; Mean Platelet Volume 8.8; Platelet Count 329 k/uL (150-450); Poikilocytosis Slight; RBC 4.86 m/uL (4.30-5.90); RDW 16.7 % (11.5-15.5); WBC 40.5 k/uL (3.8-10.6)
[2023-05-09 22:50] LABS: Anion Gap 15 mmol/L; Blood Urea Nitrogen 64 mg/dL (9-20); Calcium 8.5 mg/dL (8.4-10.2); Carbon Dioxide 22 mmol/L (22-30); Chloride 99 mmol/L (98-107); Glucose 136 mg/dL (74-99); Magnesium 2.3 mg/dL (1.6-2.3); Potassium 5.9 mmol/L (3.5-5.1); Sodium 136 mmol/L (137-145)
--- NOTE | 2023-05-09 22:54 | XR ---
EXAM: XR Chest, 1 View CLINICAL HISTORY: ITS.REASON XR Reason: poss pneumonia TECHNIQUE: Frontal view of the chest. COMPARISON: No relevant prior studies available. FINDINGS: Lungs: Unremarkable. No consolidation. Pleural space: Unremarkable. No pneumothorax. Heart: Cardiomegaly. Mediastinum: Unremarkable. Bones/joints: Sternotomy wires. Vasculature: Calcified aorta. LEFT PICC line terminates in the SVC. IMPRESSION: No focal infiltrate.
[2023-05-09 22:56] LABS: African American GFR (CKD) 15 (>60 ml/min/1.73 sqM); Non-African American GFR(CKD) 13 (>60 ml/min/1.73 sqM)
[2023-05-09] MEDS ORDERED: DEXMEDETOMIDINE/0.9% NACL(PMX) 400 MCG in EMPTY BAG 1 BAG IV SCH (23:00)
[2023-05-09 23:41] VITALS: TEMP 98.2
[2023-05-10] MEDS ORDERED: propofoL 100 ML IV ONE (00:29)
[2023-05-10] MEDS ORDERED: NOREPINEPHRINE 32 MG in SODIUM CHLORIDE 0.9% 218 ML IV SCH (00:45)
[2023-05-10 01:36] LABS: ABG HCO3 20 mmol/L (21-25); ABG Oxygen Saturation 99.4 % (94-97); ABG PCO2 46 mmHg (35-45); ABG PH 7.25 (7.35-7.45); ABG PO2 280 mmHg (83-108); ABG TCO2 22 mmol/L (19-24)
[2023-05-10 01:42] LABS: Allen Test Performed? no
[2023-05-10] MEDS ORDERED: VASOPRESSIN 60 UNIT in SODIUM CHLORIDE 0.9% 150 ML IV SCH (02:15)
[2023-05-10] MEDS: METOPROLOL TARTRATE 5 MG/5 ML VIAL IVP SCH (02:28)
--- NOTE | 2023-05-10 03:05 | XR ---
EXAM: XR Chest, 1 View CLINICAL HISTORY: ITS.REASON XR Reason: Tube placement TECHNIQUE: Frontal view of the chest. COMPARISON: 05/09/23 and 221 hrs. FINDINGS: Endotracheal tube 2.5 cm from the adebayo. Enteric tube extends to the stomach. Patient is status post sternotomy. There is stable cardiomegaly. Pulmonary vascularity appears normal. Minimal left basilar opacities are slightly increased from prior. Right lung appears clear. There is no significant pleural effusion. There is no pneumothorax. Skeleton is stable. IMPRESSION: 1. Minimal increase in left basilar opacities favored to represent atelectasis, but pneumonia is not excluded. 2. Endotracheal tube and enteric tube have been placed.
[2023-05-10] MEDS ORDERED: AMIODARONE 450 MG in DEXTROSE 5% IN WATER 250 ML IV SCH ×2 (04:00)
[2023-05-10 04:27] LABS: Glucose,Whole Blood 213 mg/dL (70-110)
[2023-05-10] MEDS ORDERED: EPINEPHrine 10 ML SYRINGE (0.1 MG/ML) ONE (04:38)
--- NOTE | 2023-05-10 04:54 | P.EN ---
CODE blue note please refer to paper chart for exact sequence of event prolonged code, 1st one lasting about 17 minutes , patient shocked multiple times for vfib, vtach. given multiple rounds of epi, given calcium for hyperkalmia, and magnesium for torsade. brief ROSC achieved then went into pulseless vtach again. this time was brief code, couple rounds and ROSC achieved. discussed with family , and family decided to make the patient DNR.
[2023-05-10 06:02] VITALS: BP 111/62; PULSE 137; RESP 16
[2023-05-10] MEDS ORDERED: CHLORHEXIDINE GLUCONATE 15 ML CUP MUCOUS MEM SCH (09:00)
[2023-05-10] MEDS ORDERED: FAT EMULSION 20% 250 ML IV SCH (09:00)
--- NOTE | 2023-05-10 09:33 | P.PN ---
Subjective Progress Note Date: 05/09/23 05/09/2023: Patient was seen for a follow-up. Patient's , and some other family members were also present. Patient's nurse Brittany was also present. Patient is getting hemodialysis. As per medical instrument technician, patient was receiving hemodialysis, but his heart rate went up between 130 to 150, and the blood pressure came down to 77/43. He was only able to perform 60% of the dialy sis treatment and it was aborted. After stopping dialysis, the blood pressure came up to 100/50. Per nurse, patient has been very restless, therefore he received Dilaudid 0.5 mg at 9:30 AM and then repeat dose at 3:30 AM. Patient at present is obtunded. Patient's telemetry monitoring showing atrial fibrillation with heart rate between 90-100, going up to 130s. 05/07/2023: Patient was initially seen by Dr. Vance Arvizu appeared please refer to his note for details. Patient is a 77-year-old male with recent Covid infection, with worsening renal functions. EEG revealed mild to moderate encephalopathy. No seizures. MRI of the brain is negative. Patient was seen for a follow-up. Patient is laying in the bed. Patient appears obviously encephalopathic, very congested. He is getting hemodialysis at this time. He has oxygen by nasal cannula. He appears somewhat restless. Some of the workup during this hospital visit consisted of: Vital B12 most recent one is 380. But the day prior was 298. Folate is 17.90. Hemoglobin A1c is 9.4. Ammonia level is less than 9 TSH is 0.586. Seems she has acute on chronic kidney insufficiency and that her kidney function is trending up. CT of the head on 05/01/23 is reported as no acute intracranial process. Nonspecific white matter changes, likely seizure due to chronic small vessel ischemic disease. Routine EEG is abnormal. The background slowing is suggestive of mild to moderate encephalopathy likely due to toxic metabolic derangement. Otherwise there is no focal slowing, epileptiform discharges or seizure on the EEG. MRI the brain without is reported as no evidence of intracranial mass or acute/subacute infarct. Nonspecific white matter changes, likely secondary to small vessel ischemic disease. Mild cerebral atrophy with proportional dilation of the ventricular system. I personally reviewed the MRI and agree there is no acute subacute ischemia. Patient has not specific white matter changes on FLAIR. Objective - Vital Signs Vital signs: Vital Signs Temp 98.3 F 05/09/23 15:26 Pulse 114 H 05/09/23 15:26 Resp 12 05/09/23 15:26 BP 123/63 05/09/23 15:26 Pulse Ox 94 L 05/09/23 15:26 FiO2 40 05/09/23 04:46 Intake & Output 05/08/23 05/09/23 05/09/23 18:59 06:59 18:59 Intake Total 500 116.167 Output Total 73 Balance 427 116.167 Weight 100.4 kg 100.4 kg Intake: Intake, IV Titration 116.167 Amount Diltiazem 125 mg In 116.167 Sodium Chloride 0.9% 100 ml @ 5 MG/HR 5 mls/hr IV .Q24H [facility] Rx#:[id number] Hemodialysis 500 Output: Stool 2 Hemodialysis 71 Other: Voiding Method Indwelling Catheter Indwelling Catheter Indwelling Catheter # Voids 1 # Bowel Movements 1 - Exam Patient appears severely encephalopathic, obtunded. He is laying in the bed, just completed partial dialysis. Patient has BiPAP on. Patient appears congested with secretions noted with his respiration. He has bruises over his forearms and dorsum of the hands bilaterally. Also has a fairly large bruise/hematoma in the right adductor and hamstring region. Patient's pupils are equal, round and reacting. Patient gaze is midline. Oculocephalics not clearly present. Patient not responding to painful stimuli. Detailed testing deferred. Reflexes are diminished. No peripheral edema. - Labs CBC & Chem 7: 05/09/23 22:14 05/09/23 22:14 Labs: Abnormal Lab Results - Last 24 Hours (Table) 05/08/23 05/08/23 05/08/23 Range/Units 20:11 21:45 22:39 WBC (3.8-10.6) k/uL RDW (11.5-15.5) % Neutrophils # (1.3-7.7) k/uL Lymphocytes # (1.0-4.8) k/uL ABG pO2 124 H (83-108) mmHg ABG O2 Saturation 98.3 H (94-97) % Potassium (3.5-5.1) mmol/L Carbon Dioxide (22-30) mmol/L BUN (9-20) mg/dL Creatinine (0.66-1.25) mg/dL Glucose (74-99) mg/dL POC Glucose (mg/dL) 155 H 152 H (70-110) mg/dL Total Bilirubin (0.2-1.3) mg/dL Total Protein (6.3-8.2) g/dL Albumin (3.5-5.0) g/dL 05/09/23 05/09/23 05/09/23 Range/Units 06:06 07:33 07:33 WBC 26.8 H (3.8-10.6) k/uL RDW 16.4 H (11.5-15.5) % Neutrophils # 24.9 H (1.3-7.7) k/uL Lymphocytes # 0.8 L (1.0-4.8) k/uL ABG pO2 (83-108) mmHg ABG O2 Saturation (94-97) % Potassium 5.9 H (3.5-5.1) mmol/L Carbon Dioxide 20 L (22-30) mmol/L BUN 77 H (9-20) mg/dL Creatinine 4.60 H (0.66-1.25) mg/dL Glucose 179 H (74-99) mg/dL POC Glucose (mg/dL) 175 H (70-110) mg/dL Total Bilirubin 1.4 H (0.2-1.3) mg/dL Total Protein 5.9 L (6.3-8.2) g/dL Albumin 3.3 L (3.5-5.0) g/dL 05/09/23 Range/Units 11:51 WBC (3.8-10.6) k/uL RDW (11.5-15.5) % Neutrophils # (1.3-7.7) k/uL Lymphocytes # (1.0-4.8) k/uL ABG pO2 (83-108) mmHg ABG O2 Saturation (94-97) % Potassium (3.5-5.1) mmol/L Carbon Dioxide (22-30) mmol/L BUN (9-20) mg/dL Creatinine (0.66-1.25) mg/dL Glucose (74-99) mg/dL POC Glucose (mg/dL) 196 H (70-110) mg/dL Total Bilirubin (0.2-1.3) mg/dL Total Protein (6.3-8.2) g/dL Albumin (3.5-5.0) g/dL Assessment and Plan Assessment: Altered mental status, likely due to toxic-Metabolic Encephalopathy. Reasons multifactorial as mentioned below. MRI Brain is negative for acute/subacute stroke. EEG is mild to moderate encephalopathy but no seizure. Acute on chronic renal failure, requiring hemodialysis. Diabetes mellitus and hemoglobin A1c is 9.4 on 04/29/2023. Leukocytosis, possible infection Chronic atrial fibrillation patient presented with A. fib with RVR currently on Eliquis Acute exacerbation of chronic congestive heart failure with ejection fraction of 30-35% Acute exacerbation of COPD Recent COVID-19 infection and was positive close to the end of March 2023 Recent history of pneumonia secondary due to pseudomonas aeruginosa Low normal finding B12 level in the high 200s low 300 History of coronary artery disease status post CABG and stent Dyslipidemia Plan: Patient at present is significantly obtunded. This could partly be related to receiving Dilaudid 0.5 mg twice at 9:30 AM and 3:30 PM. However patient is also hypotensive with recently aborted hemodialysis. He appears hypoxic. Patient has BiPAP on. Patient has multiple organ dysfunction. 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 Discussed with patient's family in detail. Repeat CT head 05/07/2023 showed moderate generalized atrophy and mild to moderate patchy burden of chronic small vessel ischemic disease. No acute intracranial abnormality seen. Some fluid in the inferior left mastoid air cells. Correlate for any mastoid pain to exclude mastoiditis. Moderate chronic right ethmoid sinus disease. Prominent left word nasal septal deviation. I personally reviewed CT head, agree with the findings. Patient has been treated with vancomycin. Patient to undergo repeat EEG on 05/10/2023 Routine EEG is abnormal. The background slowing is suggestive of mild to moderate encephalopathy likely due to toxic metabolic derangement. Otherwise there is no focal slowing, epileptiform discharges or seizure on the EEG. MRI the brain without is reported as no evidence of intracranial mass or acute/subacute infarct. Nonspecific white matter changes, likely secondary to small vessel ischemic disease. Mild cerebral atrophy with proportional dilation of the ventricular system. For low-normal of vitamin B-12 patient was given vitamin B12 1000 g IM and continue after that by mouth Patient is on very high dose of gabapentin of 1200 mg 1 tablet 3 times a day and Dr. Arvizu has decreased it to 300 and since he continues to be confused and kidney worsening will decrease it down to 100mg 1 tab tid. Once mentation and kidney improves can go up on his Gabapentin dose. We'll defer the rest of the medical and metabolic management to the primary team and other specialists on board. Discussed with patient's family and nursing staff in detail.
== END 2023-05-10 06:30 | disposition expired | DRG 208 ==
LOC: EC 15:28 → 3SCARD 18:01 → 2SICU 18:58 → 4SSUR 04-29 17:20 → 3SCARD 05-03 12:12 → 2SICU 05-09 21:25
PROVIDERS: ADMIT Internal Medicine; ATTEND Internal Medicine
PROC: 3E043XZ Introduction of Vasopressor into Central Vein, Percutaneous Approach (ICD-10-PCS; 2023-04-28)
PROC: 30233R1 Transfusion of Nonautologous Platelets into Peripheral Vein, Percutaneous Approach (ICD-10-PCS; 2023-04-29)
PROC: 5A09457 Assistance with Respiratory Ventilation, 24-96 Consecutive Hours, Continuous Positive Airway Pressure (ICD-10-PCS; 2023-05-03)
PROC: 02HV33Z Insertion of Infusion Device into Superior Vena Cava, Percutaneous Approach (ICD-10-PCS; 2023-05-04)
PROC: 5A1D70Z Performance of Urinary Filtration, Intermittent, Less than 6 Hours Per Day (ICD-10-PCS; 2023-05-04)
PROC: 5A1935Z Respiratory Ventilation, Less than 24 Consecutive Hours (ICD-10-PCS; principal; 2023-05-10)
PROC: 0BH17EZ Insertion of Endotracheal Airway into Trachea, Via Natural or Artificial Opening (ICD-10-PCS; principal; 2023-05-10)
PROC: 5A12012 Performance of Cardiac Output, Single, Manual (ICD-10-PCS; 2023-05-10)
PROC: 0D9670Z Drainage of Stomach with Drainage Device, Via Natural or Artificial Opening (ICD-10-PCS; 2023-05-10)
DX: J15.1 Pneumonia due to Pseudomonas (principal); J96.01 Acute respiratory failure with hypoxia; E43 Unspecified severe protein-calorie malnutrition; U07.1 COVID-19; J12.82 Pneumonia due to coronavirus disease 2019; G92.8 Other toxic encephalopathy; I50.43 Acute on chronic combined systolic (congestive) and diastolic (congestive) heart failure; N17.0 Acute kidney failure with tubular necrosis; N18.6 End stage renal disease; R57.9 Shock, unspecified; E87.1 Hypo-osmolality and hyponatremia; I13.2 Hypertensive heart and chronic kidney disease with heart failure and with stage 5 chronic kidney disease, or end stage renal disease; I48.21 Permanent atrial fibrillation; J44.1 Chronic obstructive pulmonary disease with (acute) exacerbation; J44.0 Chronic obstructive pulmonary disease with (acute) lower respiratory infection; E11.51 Type 2 diabetes mellitus with diabetic peripheral angiopathy without gangrene; R56.9 Unspecified convulsions; R62.7 Adult failure to thrive; Z66 Do not resuscitate; R57.1 Hypovolemic shock; E11.649 Type 2 diabetes mellitus with hypoglycemia without coma; D69.6 Thrombocytopenia, unspecified; E11.22 Type 2 diabetes mellitus with diabetic chronic kidney disease; I27.20 Pulmonary hypertension, unspecified; E83.39 Other disorders of phosphorus metabolism; I35.0 Nonrheumatic aortic (valve) stenosis; E03.9 Hypothyroidism, unspecified; I07.1 Rheumatic tricuspid insufficiency; T36.95XA Adverse effect of unspecified systemic antibiotic, initial encounter; E78.5 Hyperlipidemia, unspecified; Z79.4 Long term (current) use of insulin; E86.0 Dehydration; E87.5 Hyperkalemia; Z87.891 Personal history of nicotine dependence; Z68.29 Body mass index [BMI] 29.0-29.9, adult; F41.9 Anxiety disorder, unspecified; I25.10 Atherosclerotic heart disease of native coronary artery without angina pectoris; I25.2 Old myocardial infarction; I25.5 Ischemic cardiomyopathy; J31.0 Chronic rhinitis; K29.00 Acute gastritis without bleeding; I49.3 Ventricular premature depolarization; R77.8 Other specified abnormalities of plasma proteins; Z86.14 Personal history of Methicillin resistant Staphylococcus aureus infection; Z86.73 Personal history of transient ischemic attack (TIA), and cerebral infarction without residual deficits; Z95.1 Presence of aortocoronary bypass graft; Z95.5 Presence of coronary angioplasty implant and graft; Z83.3 Family history of diabetes mellitus; Z82.49 Family history of ischemic heart disease and other diseases of the circulatory system; Z96.652 Presence of left artificial knee joint; Z88.2 Allergy status to sulfonamides; Z88.8 Allergy status to other drugs, medicaments and biological substances; Z88.4 Allergy status to anesthetic agent; Z88.5 Allergy status to narcotic agent; Z91.013 Allergy to seafood; Z79.01 Long term (current) use of anticoagulants; Z79.899 Other long term (current) drug therapy; Z79.51 Long term (current) use of inhaled steroids; Z79.890 Hormone replacement therapy; Z71.3 Dietary counseling and surveillance; Z53.09 Procedure and treatment not carried out because of other contraindication
CPT/HCPCS: 36415; 36556; 36600; 70450; 70551; 71045; 71046; 76937; 80048; 80053; 81001; 82040; 82140; 82607; 82746; 82747; 82805; 83036; 83605; 83735; 83880; 83921; 84100; 84145; 84295; 84443; 84478; 84484; 85025; 85027; 85384; 85610; 85730; 86140; 86706; 86850; 86900; 86901; 87040; 87070; 87205; 87340; 90935; 92950; 93005; 94002; 94640; 94660; 94760; 95816; 96361; 96365; 96366; 96368; 99291